=== PATIENT | female | born 1970 | race Caucasian/White ===

== ENCOUNTER 2016-09-22 12:49 | Observation (INO) | payer MEDICARE, OTHER ==
[~2016-09-22] VITALS: Ht 165.1 cm; Wt 75.9 kg
[~2016-09-22 12:49] MED LIST: ACET-2650 PO; AZIT250T5 PO; CEFP200T2 PO; CYCL10TA9 PO; FURO20TA4 PO; GABA300C PO; HCT25T PO; IPRA3AMP IH; METH40TA PO; NEBI2.5T5 PO; NEBI5TAB8 PO; OMEP10CA4 PO; OXYC-12 PO; OXYC10TA55 PO; PEG250PW PO; PNNLX50T PO; PNT40TEC PO; SCR1T1 PO; TOCI400V IV
--- OUTSIDE RECORDS SUMMARY | 2016-09-22 13:26 | XMS REPORT | Continuity of Care Document ---
Author Author [facility] Organization [facility] Address Unknown Phone Unavailable Care Team Providers Care Strategic Client Executive Name Role Phone Karen Melgar PCP [phone] Source Comments Some departments are not documenting in the electronic medical record. If you do not see the information that you expected, contact Release of Information in the Health Information Management department at [phone] for further assistance in locating additional records.[facility] Active Allergies and Adverse Reactions Allergen Noted Date Severity Reactions Comments Ciprofloxacin 12/12/2015 High ANAPHYLAXIS, HIVES Codeine 12/12/2015 Medium HIVES, ITCHING Iodine 12/12/2015 High ANAPHYLAXIS Orencia 12/12/2015 High ANAPHYLAXIS, HIVES, ITCHING Current Medications Prescription Sig. Disp. Refills Start End Date Status Date nebivolol (BYSTOLIC) 10 Take 10 mg by mouth twice Active mg tablet daily. Active Problems Problem Noted Date Polyarthralgia 12/12/2015 Pain in both hands 12/12/2015 Low back pain with sciatica 12/12/2015 Cervical radiculopathy 12/12/2015 Lumbar radiculopathy 12/12/2015 Gastric ulcer 12/12/2015 Headache 12/12/2015 H/O Meniere's disease 12/12/2015 Fibromyalgia 12/12/2015 Social History Tobacco Use Types Packs/Day Years Used Date Never Smoker Smokeless Tobacco: Never Used Alcohol Use Drinks/Week oz/Week Comments No 0 Standard 0.0 drinks or equivalent Last Filed Vital Signs Vital Sign Reading Time Taken Blood Pressure 128/88 12/12/2015 9:34 AM CDT Pulse 92 12/12/2015 8:25 AM CDT Temperature 36.7 C (98 F) 12/12/2015 8:25 AM CDT Respiratory Rate - - Height 1.651 m (5' 5") 12/12/2015 8:25 AM CDT Weight 66.225 kg (146 lb) 12/12/2015 8:25 AM CDT Body Mass Index 24.3 12/12/2015 8:25 AM CDT Oxygen Saturation - - Plan of Care Health Maintenance Due Date Last Done Comments Physical (Comprehensive) 1976 Exam Pertussis Vaccine 1980 Tetanus Vaccine 1986 Cervical Cancer Screening 1990 Breast Cancer Screening 2009 Influenza Vaccine 05/21/2016 Results from Last 3 Months Not on file
[2016-09-22] MEDS ORDERED: PATIENT MAY USE OWN MEDS, ALL PO SCH (13:45)
[2016-09-22] MEDS ORDERED: ONDANSETRON 4 MG/2 ML (SDV) Z0FRAN IVP PRN (13:45)
[2016-09-22 14:00] VITALS: BP 120/84
[2016-09-22] MEDS ORDERED: CATHETER FLUSH 10 ML SYR IV PRN (14:00)
[2016-09-22] MEDS ORDERED: OXYC15TA73 PO (14:21)
[2016-09-22] MEDS ORDERED: CYCL10TA9 PO (14:21)
[2016-09-22 14:37] LABS: BASOPHILS % (AUTO) 0 % (0-10); EOSINOPHILS # (AUTO) 0.1 10^3/uL (0.0-0.3); EOSINOPHILS % (AUTO) 1 % (0-10); LYMPHOCYTES # (AUTO) 1.8 X 10^3 (1.0-4.0); LYMPHOCYTES % (AUTO) 21 % (12-44); MEAN CORPUSCULAR HEMOGLOBIN 29 PG (25-34); MEAN CORPUSCULAR HGB CONC 33 G/DL (32-36); MEAN CORPUSCULAR VOLUME 89 FL (80-99); MEAN PLATELET VOLUME 9.7 FL (7.4-10.4); MONOCYTES # (AUTO) 0.6 X 10^3 (0.0-1.0); MONOCYTES % (AUTO) 7 % (0-12); NEUTROPHILS # (AUTO) 6.1 X 10^3 (1.8-7.8); NEUTROPHILS % (AUTO) 71 % (42-75); PLATELET COUNT 310 10^3/uL (130-400); RED BLOOD COUNT 4.63 10^6/uL (4.35-5.85); RED CELL DISTRIBUTION WIDTH 14.6 % (10.0-14.5); WHITE BLOOD COUNT 8.6 10^3/uL (4.3-11.0)
[2016-09-22] MEDS ORDERED: IPRA3AMP IH (14:38)
[2016-09-22] MEDS ORDERED: OMEP40CA36 PO (14:38)
[2016-09-22] MEDS ORDERED: NFNEB10T PO (14:38)
[2016-09-22] MEDS ORDERED: IBUP-2055 PO (14:38)
[2016-09-22] MEDS ORDERED: BENZ100C23 PO (14:39)
[2016-09-22] MEDS: cefTRIAXone INJECTION 1,000 MG in NORMAL SALINE (BAXTER MINI) 50 ML IV SCH (14:47)
[2016-09-22] MEDS: BISACODYL 10 MG SUPP (DULCOLAX) PR SCH (14:47)
[2016-09-22 14:54] LABS: ANION GAP 13 MMOL/L (5-14); BLOOD UREA NITROGEN 20 MG/DL (7-18); BUN/CREATININE RATIO 22; CALCIUM 9.2 MG/DL (8.5-10.1); CARBON DIOXIDE 22 MMOL/L (21-32); CHLORIDE 105 MMOL/L (98-107); CREATININE SERUM 0.92 MG/DL (0.60-1.30); GFR ESTIMATED > 60; GLUCOSE 83 MG/DL (70-105); POTASSIUM 3.4 MMOL/L (3.6-5.0); SODIUM 140 MMOL/L (135-145)
[2016-09-22] MEDS: DOXYCYCLINE IV SCH ×2 (15:46→20:57)
[2016-09-22] MEDS: NORMAL SALINE IV SCH ×2 (15:46→20:57)
--- NOTE | 2016-09-22 15:47 | Diagnostic Imaging Report ---
PROCEDURE: CT chest without contrast. TECHNIQUE: Multiple contiguous axial images were obtained through the chest without the use of intravenous contrast. INDICATION: Recurrent pneumonia. Shortness of breath. FINDINGS: There are patchy bilateral central lung zone predominant areas of dense and groundglass opacities seen. This is concerning for atypical pneumonia. Minimal bilateral effusions are seen. No pericardial effusion. The thoracic aorta is normal in caliber. There is no mediastinal mass or significantly enlarged lymph node. There is no axillary lymphadenopathy. Sections in the upper abdomen demonstrate moderate atrophy of the left kidney. The osseous structures appear grossly unremarkable. IMPRESSION: Patchy bilateral groundglass and dense areas of consolidation suggestive of atypical, inflammatory or infectious pneumonia. Dictated by: Dictated on workstation # [id number]
[2016-09-22 16:00] VITALS: BP 133/91
[2016-09-22] MEDS ORDERED: RT-ALBUTEROL/IPRATROPIUM 3 ML (DUONEB) VIAL INH PRN (16:45)
[2016-09-22] MEDS: methylPREDNISolone 125 MG (Solu-MEDROL) VIAL IVP SCH (17:47)
[2016-09-22 19:28] VITALS: BP 124/89
[2016-09-22] MEDS: RT-ALBUTEROL/IPRATROPIUM 3 ML (DUONEB) VIAL INH SCH (19:59)
[2016-09-22] MEDS: DOCUSATE SODIUM 100 MG (COLACE) CAP PO SCH (20:57)
[2016-09-22] MEDS ORDERED: BENZONATATE 100 MG (TESSALON) CAPSULE PO PRN (21:15)
[2016-09-22] MEDS ORDERED: CYCLOBENZAPRINE 10 MG (FLEXERIL) TAB PO PRN (21:15)
[2016-09-22] MEDS ORDERED: oxyCODONE ER 15 MG (oxyCONTIN CR) TAB PO SCH (21:15)
[2016-09-22] MEDS ORDERED: RT-ALBUTEROL/IPRATROPIUM 3 ML (DUONEB) VIAL IH PRN (21:15)
[2016-09-22] MEDS ORDERED: IBUPROFEN TABLET 200 MG TAB PO PRN (21:15)
[2016-09-22] MEDS ORDERED: PATIENT MAY USE OWN MEDS, ALL MC PRN (21:15)
[2016-09-22 23:41] VITALS: BP 108/64
[2016-09-23] VITALS (7 sets, daily range): BP systolic 90–128; BP diastolic 50–81
[2016-09-23] MEDS: methylPREDNISolone 125 MG (Solu-MEDROL) VIAL IVP SCH ×4 (00:12→22:02)
[2016-09-23] MEDS: RT-ALBUTEROL/IPRATROPIUM 3 ML (DUONEB) VIAL INH SCH ×4 (02:10→19:41)
[2016-09-23] MEDS ORDERED: DOXYCYCLINE 100 MG INJ (VIBRAMYCIN) ONE (08:27)
[2016-09-23] MEDS ORDERED: NORMAL SALINE (BAXTER MINI) 100 ML IV ONE (08:27)
[2016-09-23] MEDS: DOCUSATE SODIUM 100 MG (COLACE) CAP PO SCH ×2 (08:39→21:59)
[2016-09-23] MEDS: ACETAMINOPHEN 325 MG TABLET/CAPLET (TYLENOL) PO SCH ×2 (08:39→22:02)
[2016-09-23] MEDS: BISACODYL 10 MG SUPP (DULCOLAX) PR SCH (08:39)
[2016-09-23] MEDS: DOXYCYCLINE IV SCH ×2 (08:40→21:59)
[2016-09-23] MEDS: NORMAL SALINE IV SCH ×2 (08:40→21:59)
[2016-09-23] MEDS: PANTOPRAZOLE 40 MG (PROTONIX) TAB PO SCH (08:45)
[2016-09-23] MEDS ORDERED: NEBIVOLOL 5 MG TAB (BYSTOLIC) PO SCH (09:00)
[2016-09-23] MEDS ORDERED: GABAPENTIN 300 MG (NEURONTIN) CAP PO SCH (09:00)
[2016-09-23] MEDS: GABAPENTIN 300 MG (NEURONTIN) CAP PO SCH ×3 (09:45→22:00)
[2016-09-23] MEDS: oxyCODONE ER 15 MG (oxyCONTIN CR) TAB PO SCH ×2 (09:45→22:01)
[2016-09-23] MEDS ORDERED: BENZONATATE 100 MG (TESSALON) CAPSULE PO PRN (10:00)
[2016-09-23] MEDS: CYCLOBENZAPRINE 10 MG (FLEXERIL) TAB PO PRN ×2 (11:26→16:46)
[2016-09-23] MEDS ORDERED: NORMAL SALINE (BAXTER MINI) 50 ML IV ONE (13:04)
[2016-09-23] MEDS ORDERED: cefTRIAXone 1 GM (ROCEPHIN) VIAL ONE (13:04)
[2016-09-23] MEDS: NEBIVOLOL 10 MG PO SCH ×2 (13:14→22:01)
[2016-09-23] MEDS: cefTRIAXone INJECTION 1,000 MG in NORMAL SALINE (BAXTER MINI) 50 ML IV SCH (13:16)
--- NOTE | 2016-09-23 16:09 | History & Physicial (CHS) ---
HPI History of Present Illness: 46 yo F with known RA that was sent to hospital for direct admission from Dr Melgar in clinic due to increased shortness of breath with hypoxia. Patient states that she has been having worsening shortness of breath for the last month. She noticed that around [place] it got alot worse. She denies any sick contacts. States that she had chills but never took her temperature. Patient states that she had similar symptoms several years ago and she was told they were concerned about rheumatoid lung. She has not seen a Ops Manager because of financial reasons in about 3 years. She has been on many immunomodulating medications but currently is not on anything. She has never seen Rn Stars. States that she gets much more short of breath with ambulation. Tolerating PO diet. Denies any N/V Source: patient, family (mother and son), RN/, old records Exam Limitations: no limitations Date seen by provider: Sep 23, 2016 Attending Physician Aisha Sosa MD PCP Edward Melgar MD Consult Date of Admission Sep 22, 2016 at 13:22 Home Medications Home Medications Reviewed patient Home Medication Reconciliation Form Allergies Coded Allergies: iodine (Unverified Allergy, Severe, 01/29/11) Penicillins (Unverified Allergy, Unknown, 06/27/14) abatacept (Unverified Allergy, Unknown, 06/27/14) ciprofloxacin (Unverified Allergy, Unknown, 06/27/14) codeine (Unverified Allergy, Unknown, 06/27/14) hydrocodone (Unverified Allergy, Unknown, 06/27/14) Uncoded Allergies: IVP DYE (Allergy, Unknown, 06/27/14) PHE-Kmbloj-Nvggvk Hx Patient Social History Living Status: Lives at home with son Alcohol Use: Denies Use Recreational Drug Use: No Smoking Status: Never a Smoker Recent Foreign Travel: No Contact w/other who traveled: No Recent Hopitalizations: No Recent Infectious Disease Expo: No Physical Abuse Screen: No Sexual Abuse: No Immunizations Up To Date Tetanus Booster (TDap): Unknown Date of Pneumonia Vaccine: Dec 05, 2012 Past Medical History RA Family Medical History Family History: Alzheimer's disease 19 FATHER Arthritis 19 FATHER 19 MOTHER Asthma G8 BROTHER Cardiovascular disease 19 FATHER 19 MOTHER Cataracts 19 FATHER 19 MOTHER Deafness or hearing loss 19 FATHER 19 MOTHER Dementia 19 FATHER Diabetes mellitus 19 FATHER 19 MOTHER MATERNAL GRANDMA PATERNAL GRANDMOTHER Fibrocystic disease of breast 19 MOTHER Gastroenteritis 19 MOTHER Hypercholesterolemia 19 MOTHER Hypertension G8 BROTHER Myocardial infarction 19 FATHER Neoplasm 19 MOTHER (GALL BLADDER CANCER) Osteoporosis 19 MOTHER Thyroid disease G8 BROTHER G8 SISTER Review of Systems (CHC) Constitutional: no symptoms reportedNo chills, No dizziness, No fever, malaise weakness EENTM: no symptoms reportedNo blurred vision, No double vision Respiratory: cough dyspnea on exertionNo hemoptysis, short of breathNo wheezing Cardiovascular: no symptoms reportedNo chest pain, No edema, No palpitations, No syncope Gastrointestinal: no symptoms reportedNo abdominal pain, constipationNo diarrhea, No heartburn, No nausea, No vomiting Genitourinary: no symptoms reportedNo dysuria, No frequency, No hematuria : No Musculoskeletal: joint pain (multiple joints) Skin: no symptoms reportedNo lesions, No rash Psychiatric/Neurological: No Symptoms ReportedDenies Anxiety, Denies Depressed , Denies Headache Reviewed Test Results Reviewed Test Results Lab Laboratory Tests Test 09/22/16 14:20 Range/Units Anion Gap 13 5-14 MMOL/L BUN/Creatinine Ratio 22 Basophils # (Auto) 0.0 0.0-0.1 10^3/uL Basophils (%) (Auto) 0 0-10 % Blood Urea Nitrogen 20 H 7-18 MG/DL Calcium Level 9.2 8.5-10.1 MG/DL Carbon Dioxide Level 22 21-32 MMOL/L Chloride Level 105 98-107 MMOL/L Creatinine 0.92 0.60-1.30 MG/DL Eosinophils # (Auto) 0.1 0.0-0.3 10^3/uL Eosinophils (%) (Auto) 1 0-10 % Estimat Glomerular Filtration Rate > 60 Glucose Level 83 70-105 MG/DL Hematocrit 41 35-52 % Hemoglobin 13.6 11.5-16.0 G/DL Lactic Acid Level 1.0 0.5-2.0 MMOL/L Lymphocytes # (Auto) 1.8 1.0-4.0 X 10^3 Lymphocytes (%) (Auto) 21 12-44 % Mean Corpuscular Hemoglobin 29 25-34 PG Mean Corpuscular Hemoglobin Concent 33 32-36 G/DL Mean Corpuscular Volume 89 80-99 FL Mean Platelet Volume 9.7 7.4-10.4 FL Monocytes # (Auto) 0.6 0.0-1.0 X 10^3 Monocytes (%) (Auto) 7 0-12 % Neutrophils # (Auto) 6.1 1.8-7.8 X 10^3 Neutrophils (%) (Auto) 71 42-75 % Platelet Count 310 130-400 10^3/uL Potassium Level 3.4 L 3.6-5.0 MMOL/L Red Blood Count 4.63 4.35-5.85 10^6/uL Red Cell Distribution Width 14.6 H 10.0-14.5 % Sodium Level 140 135-145 MMOL/L White Blood Count 8.6 4.3-11.0 10^3/uL Date of Exam: 09/22/16 CT CHEST WO PROCEDURE: CT chest without contrast. TECHNIQUE: Multiple contiguous axial images were obtained through the chest without the use of intravenous contrast. INDICATION: Recurrent pneumonia. Shortness of breath. FINDINGS: There are patchy bilateral central lung zone predominant areas of dense and groundglass opacities seen. This is concerning for atypical pneumonia. Minimal bilateral effusions are seen. No pericardial effusion. The thoracic aorta is normal in caliber. There is no mediastinal mass or significantly enlarged lymph node. There is no axillary lymphadenopathy. Sections in the upper abdomen demonstrate moderate atrophy of the left kidney. The osseous structures appear grossly unremarkable. IMPRESSION: Patchy bilateral groundglass and dense areas of consolidation suggestive of atypical, inflammatory or infectious pneumonia. Physical Exam-(CHC) Physical Exam Vital Signs VS - Last 72 Hours, by Label 09/22/16 09/22/16 09/22/16 09/22/16 14:00 14:12 16:00 16:26 Temp 97.6 97.0 Pulse 72 71 Resp 24 22 B/P 120/84 133/91 Pulse Ox 94 94 98 96 O2 Delivery Room Air Room Air Room Air 09/22/16 09/22/16 09/22/16 09/22/16 16:30 19:28 19:59 21:00 Temp 97.9 Pulse 80 Resp 22 B/P 124/89 Pulse Ox 96 93 94 O2 Delivery Room Air Room Air Room Air Room Air 09/22/16 09/23/16 09/23/16 09/23/16 23:41 02:10 04:24 04:46 Temp 97.9 97.8 Pulse 80 88 Resp 20 18 B/P 108/64 90/50 106/67 Pulse Ox 94 92 92 O2 Delivery Room Air Room Air Room Air 09/23/16 09/23/16 09/23/16 09/23/16 05:43 08:48 09:00 09:54 Temp 98.1 Pulse 89 76 Resp 18 B/P 114/75 128/81 Pulse Ox 93 91 92 O2 Delivery Room Air Room Air Room Air 09/23/16 09/23/16 09/23/16 12:00 13:51 16:55 Temp 98.2 98.4 Pulse 87 93 Resp 19 18 B/P 117/69 117/67 Pulse Ox 95 94 93 O2 Delivery Room Air Nasal Cannula Nasal Cannula O2 Flow Rate 2.00 2.00 Capillary Refill : General Appearance: WD/WN no apparent distress HEENT: PERRL/EOMI pharynx normal Neck: non-tender full range of motion supple normal inspection Respiratory: chest non-tender lungs clear normal breath sounds no respiratory distress no accessory muscle useNo accessory muscle use, No crackles, No wheezing Cardiovascular: regular rate, rhythm no edema no gallop no JVD no murmur Gastrointestinal: normal bowel sounds non tender soft no organomegaly no pulsatile massNo distended, No guarding, No rebound, No tenderness Back: normal inspection no CVA tenderness no vertebral tenderness Extremities: normal range of motion non-tender normal inspection no pedal edema no calf tenderness normal capillary refill Neurologic/Psychiatric: geology instructor II-XII nml as tested no motor/sensory deficits alert normal mood/affect oriented x 3 Skin: normal color warm/dry Lymphatic: no adenopathy Assessment/Plan Assessment/Plan Admission Dx Acute respiratory distress with hypoxia Constipation HTN Rheumatoid Arthritis Hypokalemia Plan 46 yo with known RA admitted for respiratory distress with hypoxia from clinic Acute respiratory distress with hypoxia - CT revealed ground glass appearance which could be 2/2 atypical PNA vs autoimmune vs fungal, may need bronch in the future - Will continue antibiotics to cover atypical bacteria - patient with hypoxia during ambulatory oximetry: qualifies for oxygen on d/c - Will need oupatient PFT given prolonged shortness of breath and concerns for rheumatoid lung - Needs outpatient follow up with Rheumatology - Continue A/A nebs, IS Constipation: patient on chronic pain medication - Continue Senna, will add daily miralax as well - Encourage PO hydration HTN: controlled, continue home meds Rheumatoid Arthritis - Continue home pain medications Hypokalemia - Replace and repeat bmp in AM Dispo: Continue admission with plan to d/c home tomorrow with oxygen FEN: Reg DVT PPX: lovenox Diagnosis/Problems: Clinical Quality Measures DVT/VTE Risk/Contraindication: Risk Factor Score Per Nursin RFS Level Per Nursing on Admit: 2=Moderate Copy Copies To 1: EDWARD MELGAR MD, HOLLY R MD Sep 23, 2016 4:09 pm
[2016-09-23] MEDS ORDERED: KCL 20 MEQ TAB (K-DUR) PO NR (17:30)
[2016-09-24 00:40] VITALS: BP 113/70
[2016-09-24] MEDS: RT-ALBUTEROL/IPRATROPIUM 3 ML (DUONEB) VIAL INH SCH ×2 (02:40→08:21)
[2016-09-24 04:55] VITALS: BP 111/55
[2016-09-24] MEDS: methylPREDNISolone 125 MG (Solu-MEDROL) VIAL IVP SCH ×2 (06:42→13:30)
[2016-09-24 07:06] LABS: ANION GAP 13 MMOL/L (5-14); BLOOD UREA NITROGEN 23 MG/DL (7-18); BUN/CREATININE RATIO 27; CALCIUM 9.5 MG/DL (8.5-10.1); CARBON DIOXIDE 19 MMOL/L (21-32); CHLORIDE 109 MMOL/L (98-107); CREATININE SERUM 0.85 MG/DL (0.60-1.30); GFR ESTIMATED > 60; GLUCOSE 142 MG/DL (70-105); POTASSIUM 4.3 MMOL/L (3.6-5.0); SODIUM 141 MMOL/L (135-145)
[2016-09-24 08:00] VITALS: BP 113/71
[2016-09-24] MEDS: DOCUSATE SODIUM 100 MG (COLACE) CAP PO SCH (08:04)
[2016-09-24] MEDS: ACETAMINOPHEN 325 MG TABLET/CAPLET (TYLENOL) PO SCH (08:04)
[2016-09-24] MEDS: PANTOPRAZOLE 40 MG (PROTONIX) TAB PO SCH (08:04)
[2016-09-24] MEDS: GABAPENTIN 300 MG (NEURONTIN) CAP PO SCH ×2 (08:05→13:29)
[2016-09-24] MEDS: CYCLOBENZAPRINE 10 MG (FLEXERIL) TAB PO PRN ×2 (08:05→13:29)
[2016-09-24] MEDS: oxyCODONE ER 15 MG (oxyCONTIN CR) TAB PO SCH (08:05)
[2016-09-24] MEDS: NEBIVOLOL 10 MG PO SCH (08:06)
[2016-09-24] MEDS: BISACODYL 10 MG SUPP (DULCOLAX) PR SCH (08:06)
[2016-09-24] MEDS ORDERED: DOXYCYCLINE 100 MG (VIBRAMYCIN) TABLET PO SCH (09:00)
[2016-09-24] MEDS ORDERED: DOCU100C37 PO (11:23)
[2016-09-24] MEDS ORDERED: DOXY100T2 PO (11:23)
[2016-09-24] MEDS ORDERED: PRED10TA22 PO (11:23)
--- NOTE | 2016-09-24 11:27 | Discharge Instructions ---
Discharge [facility] Discharge Medications New, Converted or Re-Newed RX: Transmitted to Pharmacy New Medications: Prednisone (Prednisone) 10 Mg Tab.ds.pk 10 MG PO DAILY Take 6 tabs(60mg)daily,decrease by 1 tab(10mg)every other day. # 42 PKG Docusate Sodium (Docusate Sodium) 100 Mg Capsule 100 MG PO BID Constipation #60 CAP Doxycycline Hyclate (Doxycycline Hyclate) 100 Mg Tablet 100 MG PO BID@07,17 #24 Ref 0 TAB Continued Medications: Acetaminophen (Tylenol Arthritis) 650 Mg Tablet.er 1300 MG PO BID TAB Benzonatate (Benzonatate) 100 Mg Capsule 100 MG PO TID PRN COUGH Cyclobenzaprine HCl (Cyclobenzaprine HCl) 10 Mg Tablet 10 MG PO TID PRN MUSCLE SPASMS Gabapentin (Neurontin) 300 Mg Capsule 900 MG PO TID CAP Ibuprofen (Ibuprofen) 200 Mg Tablet 400 MG PO Q6H TAKES 2 (200 MG) TABLETS PRN FEVER TAB Ipratropium/Albuterol Sulfate (Iprat-Albut 0.5-3(2.5) mg/3 ml) 3 Ml Ampul.neb 3 ML IH Q6H PRN SHORTNESS OF BREATH EACH Nebivolol HCl (Bystolic) 10 Mg Tab 10 MG PO BID Omeprazole (Omeprazole) 40 Mg Capsule.dr 40 MG PO DAILY Oxycodone HCl (Oxycontin) 15 Mg Tab.er.12h 15 MG PO Q12H Patient Instructions Goal/Follow Up Appt: You have a followup appt with Dr Melgar on Oct 01 @ 1220 PM at [facility] Rheum Referral to Neena Hart in [place] given your [facility] Status Will need appt with Dr Adair for Pulmonary Evaluation Patient Instructions: We have sent a script for your oxygen, it is important that you wear it when you are active Return to The Hospital For: Worsening Shortness of breath Chest pain Unable to take medications Activity & Diet Discharge Diet: No Restrictions Activity as Tolerated: Yes Copy Copies To 1: EDWARD MELGAR MD, HOLLY R MD Sep 24, 2016 11:27
--- NOTE | 2016-09-24 11:33 | Discharge Summary ---
Diagnosis/Chief Complaint Date of Admission Sep 22, 2016 at 13:22 Date of Discharge 09/24/2016 Admission Diagnosis Admission Diagnosis Acute respiratory distress with hypoxia Constipation HTN Rheumatoid Arthritis Hypokalemia Discharge Diagnosis See Above Chief Complaint/HPI Chief Complaint/HPI 46 yo F with known RA that was sent to hospital for direct admission from Dr Melgar in clinic due to increased shortness of breath with hypoxia. Patient states that she has been having worsening shortness of breath for the last month. She noticed that around [place] it got alot worse. She denies any sick contacts. States that she had chills but never took her temperature. Patient states that she had similar symptoms several years ago and she was told they were concerned about rheumatoid lung. She has not seen a Melter Supervisor [employer] because of financial reasons in about 3 years. She has been on many immunomodulating medications but currently is not on anything. She has never seen Architectural Drafting Instructor. States that she gets much more short of breath with ambulation. Tolerating PO diet. Denies any N/V Discharge Summary-Simple/Stand Procedures Date of Exam: 09/22/16 CT CHEST WO PROCEDURE: CT chest without contrast. TECHNIQUE: Multiple contiguous axial images were obtained through the chest without the use of intravenous contrast. INDICATION: Recurrent pneumonia. Shortness of breath. FINDINGS: There are patchy bilateral central lung zone predominant areas of dense and groundglass opacities seen. This is concerning for atypical pneumonia. Minimal bilateral effusions are seen. No pericardial effusion. The thoracic aorta is normal in caliber. There is no mediastinal mass or significantly enlarged lymph node. There is no axillary lymphadenopathy. Sections in the upper abdomen demonstrate moderate atrophy of the left kidney. The osseous structures appear grossly unremarkable. IMPRESSION: Patchy bilateral groundglass and dense areas of consolidation suggestive of atypical, inflammatory or infectious pneumonia. Consultations None Discharge Physical Examination Allergies: Coded Allergies: iodine (Unverified Allergy, Severe, 01/29/11) Penicillins (Unverified Allergy, Unknown, 06/27/14) abatacept (Unverified Allergy, Unknown, 06/27/14) ciprofloxacin (Unverified Allergy, Unknown, 06/27/14) codeine (Unverified Allergy, Unknown, 06/27/14) hydrocodone (Unverified Allergy, Unknown, 06/27/14) Uncoded Allergies: IVP DYE (Allergy, Unknown, 06/27/14) Vitals & I&Os Vital Sign - Last 12Hours Date Time Temp Pulse Resp B/P Pulse Ox O2 Delivery O2 Flow Rate FiO2 09/24/16 08:23 95 Room Air 09/24/16 04:55 97.9 82 20 111/55 09/23/16 19:41 2.00 Intake and Output 09/24/16 00:00 Intake Total 1630 ml Output Total 2150 ml Balance -520 ml General Appearance: Alert, Oriented X3, Cooperative, No Acute Distress Respiratory: Clear to Auscultation, Other (Basilar wheeze that cleared after treatment, normal work of breathing) Cardiovascular: Regular Rate, No Murmurs Abdominal: Normal Bowel Sounds, Soft, No Tenderness, No Hepatosplenomegaly, No Masses Extremities: No Clubbing, No Cyanosis, No Edema, No Tenderness/Swelling Skin: No Rashes, No Breakdown Neuro: Normal Gait (Had desats 84% with ambulation), Normal Speech, Cranial Nerves 3-12 NL Psych/Mental Status: Mental Status NL, Mood NL Hospital Course See final discharge diagnosis. Pending Labs None Radiology Reviewed CT: Showed Ground glass appearance Discussion & Recommendations 46 yo F with know RA that was admitted for progressive shortness of breath. Patient has been seen and treated with multiple antibiotics with minimal improvement. She was found to be hypoxic in clinic. CT at hospital showed ground glass appearance. Patient states that she was told several years ago by a physician that they were worried about rheumatoid lung. Patient has not been able to follow with Rheumatology because of financial reasons. Encouraged patient to discuss with PCP Dr Melgar a referral to [facility] Rheum in [place] because she has already been cleared for Airam. Patient may benefit from Broch with Dr Adair given h/o fevers without resolution of symptoms with treatment. Discharge Condition at discharge Improved Instructions to patient/family Please see electonic discharge instructions given to patient. Discharge Medications Reviewed and agree with Discharge Medication list on patient's Discharge Instruction sheet Clinical Quality Measures DVT/VTE Risk/Contraindication: Risk Factor Score Per Nursin RFS Level Per Nursing on Admit: 2=Moderate TOBI GUO MD Sep 24, 2016 11:33
[2016-09-24 12:00] VITALS: BP 114/61
[2016-09-24] MEDS: cefTRIAXone INJECTION 1,000 MG in NORMAL SALINE (BAXTER MINI) 50 ML IV SCH (13:30)
== END 2016-09-24 11:23 | disposition home or self-care (01) ==
LOC: UNDOADMOB 13:22 → 4TH 13:22 → UNDODISOB 09-24 14:24
PROVIDERS: ADMIT Family Medicine; ATTEND Family Medicine
DX: R06.00 Dyspnea, unspecified (principal); R09.02 Hypoxemia; K59.00 Constipation, unspecified; I10 Essential (primary) hypertension; M06.9 Rheumatoid arthritis, unspecified; E87.6 Hypokalemia
CPT/HCPCS: 36415; 71250; 80048; 83605; 85025; 87040; 94640; 94664; 94760; 94761; 99211; G0378

== ENCOUNTER → 2016-10-08 | Outpatient (CLI) | payer MEDICARE, OTHER ==
[~2016-10-08] MED LIST changes: +BENZ100C23 PO; +DOCU100C37 PO; +DOXY100T2 PO; +IBUP-2055 PO; +NFNEB10T PO; +OMEP40CA36 PO; +OXYC15TA73 PO; +PRED10TA22 PO; +RT-HYPERTONIC SALINE 3% 4 ML NEB INH ONE
--- OUTSIDE RECORDS SUMMARY | 2016-10-08 11:05 | XMS REPORT | Continuity of Care Document ---
Author Author [facility] Organization [facility] Address Unknown Phone Unavailable Care Team Providers Care Residence Life Director Name Role Phone Karen Melgar PCP [phone] Source Comments Some departments are not documenting in the electronic medical record. If you do not see the information that you expected, contact Release of Information in the Health Information Management department at [phone] for further assistance in locating additional records.[facility] [...]
== END ==
LOC: LAB 11:02
PROVIDERS: ATTEND Nurse Practitioner Family
DX: R09.02 Hypoxemia (principal); R06.09 Other forms of dyspnea; J18.9 Pneumonia, unspecified organism

== ENCOUNTER → 2016-11-11 | Outpatient (CLI) | payer MEDICARE, OTHER ==
[~2016-11-11] MED LIST changes: -RT-HYPERTONIC SALINE 3% 4 ML NEB INH ONE
--- OUTSIDE RECORDS SUMMARY | 2016-11-11 11:08 | XMS REPORT | Continuity of Care Document ---
Author Author [facility] Organization [facility] Address Unknown Phone Unavailable Care Team Providers Care Blocker Automatic Name Role Phone Karen Melgar PCP [phone] Source Comments Some departments are not documenting in the electronic medical record. If you do not see the information that you expected, contact Release of Information in the Health Information Management department at [phone] for further assistance in locating additional records.[facility] Active Allergies and Adverse Reactions Allergen [...]
--- NOTE | 2016-11-11 12:19 | Diagnostic Imaging Report ---
PROCEDURE: CT chest without contrast. TECHNIQUE: Multiple contiguous axial images were obtained through the chest without the use of intravenous contrast. INDICATION: Pneumonia. FINDINGS: The previous CT chest exam of 09/22/2016 noted alveolar/interstitial pulmonary infiltrates throughout both lungs, particularly in the perihilar regions. These findings were felt to be related to pneumonia. On this study, the appearance of the chest has improved considerably as both lungs do seem better aerated. There are still faint groundglass densities present bilaterally, particularly in the perihilar regions. There is still no evidence for a pleural effusion. The heart is mildly enlarged but stable when compared to the prior exam. The ascending aorta is not abnormally dilated. There is no mediastinal or hilar adenopathy noted, although this exam is limited in the evaluation of adenopathy due to the absence of intravenous contrast. Thyroid gland is unremarkable. There is no obvious breast mass. The sections through the upper abdomen fail to show any sign of an acute abnormality. IMPRESSION: 1. The appearance of the chest has improved since the prior exam as the lungs do seem better aerated. However, there are still residual groundglass densities throughout both lungs. These groundglass glass densities are nonspecific but could be secondary to an atypical pneumonia or to a hypersensitivity reaction. It would be unlikely that these are neoplastic in nature. 2. No new abnormality has developed, otherwise. 3. These results were discussed with Dr. Hiro Adair. Dictated by: Dictated on workstation # [id number]
== END ==
LOC: RAD 11:03
PROVIDERS: ATTEND Nurse Practitioner Family
DX: J18.9 Pneumonia, unspecified organism (principal); R09.02 Hypoxemia; R06.09 Other forms of dyspnea
CPT/HCPCS: 71250

== ENCOUNTER → 2017-01-19 | Outpatient (CLI) | payer MEDICARE | LOC: PREOP 14:22 | PROVIDERS: ATTEND Internal Medicine Critical Care Medicine | DX: M06.9 Rheumatoid arthritis, unspecified (principal); R09.02 Hypoxemia; R06.09 Other forms of dyspnea ==

== ENCOUNTER → 2017-05-27 | Outpatient (CLI) | payer MEDICARE ==
[~2017-05-27] MED LIST changes: +AZIT250T12 PO; -AZIT250T5 PO; +BENZ-36 PO; -BENZ100C23 PO; +NAPR500T PO
--- NOTE | 2017-05-27 09:00 | Diagnostic Imaging Report ---
PROCEDURE: CT chest without contrast. TECHNIQUE: Multiple contiguous axial images were obtained through the chest without the use of intravenous contrast. INDICATION: Fever, cough. The previous CT chest exam of 11/12/2006, showed groundglass densities throughout both lungs. On this study both lungs do seem much better aerated. There is no evidence for failure, pneumonia, or for a pleural effusion to suggest an acute abnormality. There is mild dependent atelectasis in both lower lobes. The heart size is within normal limits and stable when compared to the prior exam. There are no coronary artery calcifications noted. The aorta is not abnormally dilated. There is no obvious mediastinal or hilar adenopathy. This study is limited in the evaluation of adenopathy due to the absence of intravenous contrast however. The thyroid gland is generally unremarkable. There is no obvious breast mass. According to our records the patient has not had a recent (within the last year) mammogram. If the patient has had a recent mammogram elsewhere, then no further imaging would be recommended; however, if the patient has not had a recent mammogram, then mammography would be recommended for further study. The sections through the upper abdomen failed to show any sign of an acute abnormality. The bone windows show no sign of a fracture or of a destructive lesion. IMPRESSION: 1. The appearance of the chest has improved since the prior exam as the groundglass densities in both lungs noted on the previous study have resolved. There is no evidence for an acute cardiopulmonary abnormality at this time. 2. There is no obvious breast mass. Recommendations as above. Dictated by: Dictated on workstation # [id number]
== END ==
LOC: RAD 07:52
PROVIDERS: ATTEND Family Medicine
DX: R05 Cough (principal)
CPT/HCPCS: 71250

== ENCOUNTER 2017-07-17 10:20 | Emergency (ER) | payer MEDICARE ==
[~2017-07-17] VITALS: Ht 162.6 cm; Wt 60.3 kg
[~2017-07-17 10:20] MED LIST changes: -AZIT250T12 PO; +AZIT250T5 PO; -BENZ-36 PO; +BENZ100C23 PO; -NAPR500T PO
--- NOTE | 2017-07-17 10:38 | ED Lower Extremity ---
General Stated Complaint: R HIP POP, AUDIBLE Source: patient Exam Limitations: no limitations History of Present Illness Time seen by provider: 10:37 Initial Comments To ER with reports of right hip pain after an audible pop. Patient states that she was seated and leaned forward to stand up and in doing so she heard a loud pop. She was not weight bearing or standing at the time of the pop. This was just prior to arrival. She has rheumatoid arthritis on oxycontin and leflunomide. . She is unable to bear weight on this due to the pain. Onset: just prior to arrival Severity: moderate Pain/Injury Location: right hip Allergies and Home Medications Allergies Coded Allergies: iodine (Unverified Allergy, Severe, 01/29/11) Penicillins (Unverified Allergy, Unknown, 06/27/14) abatacept (Unverified Allergy, Unknown, 06/27/14) ciprofloxacin (Unverified Allergy, Unknown, 06/27/14) codeine (Unverified Allergy, Unknown, 06/27/14) hydrocodone (Unverified Allergy, Unknown, 06/27/14) Uncoded Allergies: IVP DYE (Allergy, Unknown, 06/27/14) Home Medications Acetaminophen 650 Mg Tablet.er, 1,300 MG PO BID, (Reported) Benzonatate 100 Mg Capsule, 100 MG PO TID PRN for COUGH, (Reported) Cyclobenzaprine HCl 10 Mg Tablet, 10 MG PO TID PRN for MUSCLE SPASMS, (Reported) Docusate Sodium 100 Mg Capsule, 100 MG PO BID, #60 Prescribed by: TOBI GUO on 09/24/16 1123 Doxycycline Hyclate 100 Mg Tablet, 100 MG PO BID@, #24 Ref 0 Prescribed by: TOBI GUO on 09/24/16 1123 Gabapentin 300 Mg Capsule, 900 MG PO TID, (Reported) Ibuprofen 200 Mg Tablet, 400 MG PO Q6H PRN for FEVER, (Reported) TAKES 2 (200 MG) TABLETS Ipratropium/Albuterol Sulfate 3 Ml Ampul.neb, 3 ML IH Q6H PRN for SHORTNESS OF BREATH, (Reported) Naproxen 500 Mg Tablet, 500 MG PO BID PRN for PAIN-MODERATE TO SEVERE, #20 Prescribed by: ANGELO MIRANDA on 07/17/17 1125 Nebivolol HCl 10 Mg Tab, 10 MG PO BID, (Reported) Omeprazole 40 Mg Capsule.dr, 40 MG PO DAILY, (Reported) Oxycodone HCl 15 Mg Tab.er.12h, 15 MG PO Q12H, (Reported) Prednisone 10 Mg Tab.ds.pk, 10 MG PO DAILY, #42 Take 6 tabs(60mg)daily,decrease by 1 tab(10mg)every other day. Prescribed by: TOBI GUO on 09/24/16 1123 Constitutional: see HPI EENTM: see HPI Respiratory: no symptoms reported Cardiovascular: no symptoms reported Genitourinary: no symptoms reported Musculoskeletal: see HPI Skin: no symptoms reported Past Jzlfcqo-Etmveo-Fevapc Hx Patient Social History Recent Foreign Travel: No Contact w/Someone Who Travel: No Recent Hopitalizations: No Immunizations Up To Date Tetanus Booster (TDap): Unknown PED Vaccines UTD: Yes Date of Pneumonia Vaccine: Dec 05, 2012 Seasonal Allergies Seasonal Allergies: No Surgeries History of Surgeries: Yes Surgeries: Appendectomy, 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 Respiratory History of Respiratory Disorde: Yes (asthma, ) Respiratory Disorders: Asthma Currently Using CPAP: No Currently Using BIPAP: No Cardiovascular History of Cardiac Disorders: Yes Cardiac Disorders: Heart Murmur, Hypertension Neurological History of Neurological Disord: No Reproductive System Hx Reproductive Disorders: No Sexually Transmitted Disease: No HIV/AIDS: No Female Reproductive Disorders: Denies Gastrointestinal History of Gastrointestinal Di: Yes Gastrointestinal Disorders: Ulcer Musculoskeletal History of Musculoskeletal Dis: Yes (RA) Musculoskeletal Disorders: Rheumatoid Arthritis Endocrine History of Endocrine Disorders: No HEENT Loss of Vision: Denies Hearing Impairment: Denies Cancer History of Cancer: No Psychosocial History of Psychiatric Problem: No Integumentary History of Skin or Integumenta: No Blood Transfusions History of Blood Disorders: No Adverse Reaction to a Blood Tr: No Family Medical History Family Medial History: Alzheimer's disease 19 FATHER Arthritis 19 FATHER 19 MOTHER Asthma G8 BROTHER Cardiovascular disease 19 FATHER 19 MOTHER Cataracts 19 FATHER 19 MOTHER Deafness or hearing loss 19 FATHER 19 MOTHER Dementia 19 FATHER Diabetes mellitus 19 FATHER 19 MOTHER MATERNAL GRANDMA PATERNAL GRANDMOTHER Fibrocystic disease of breast 19 MOTHER Gastroenteritis 19 MOTHER Hypercholesterolemia 19 MOTHER Hypertension G8 BROTHER Myocardial infarction 19 FATHER Neoplasm 19 MOTHER (GALL BLADDER CANCER) Osteoporosis 19 MOTHER Thyroid disease G8 BROTHER G8 SISTER Physical Exam Vital Signs Vital Sign - Last 12Hours 07/17/17 10:30 Temp 98.0 Pulse 112 Resp 18 B/P (MAP) 141/87 Capillary Refill : General Appearance: WD/WN, no apparent distress HEENT: PERRL/EOMI, normal ENT inspection Neck: non-tender, full range of motion Respiratory: no respiratory distress, no accessory muscle use Gastrointestinal: normal bowel sounds, non tender Hips: right hip pain, right hip soft tissue tenderness, right hip other (no swelling or ecchymosis at this point) Legs: bilateral leg non-tender, bilateral leg normal inspection, bilateral leg normal range of motion Knees: bilateral knee non-tender, bilateral knee normal inspection, bilateral knee normal range of motion Ankles: bilateral ankle non-tender, bilateral ankle normal inspection, bilateral ankle normal range of motion Feet: bilateral foot non-tender, bilateral foot normal inspection, bilateral foot normal range of motion Neurologic/Psychiatric: alert, normal mood/affect, oriented x 3 Skin: normal color, warm/dry Progress/Results/Core Measures Results/Orders My Orders Orders - ANGELO MIRANDA APRN Ketorolac Injection (Toradol Injection) (07/17/17 10:45) Orphenadrine Injection (Norflex Injectio (07/17/17 10:45) Hip, Right, 2 Views (07/17/17 10:36) Ct Extremity Lower Right Wo (07/17/17 10:59) Ondansetron Oral Dissolve Tab (Zofran (07/17/17 11:45) Medications Given in ED Current Medications Medications Dose Ordered Sig/Jeremie Route Start Time Stop Time Status Last Admin Dose Admin Ketorolac Tromethamine 60 mg ONCE ONCE IM 07/17/17 10:45 07/17/17 10:46 DC 07/17/17 10:44 60 MG Orphenadrine Citrate 60 mg ONCE ONCE IM 07/17/17 10:45 07/17/17 10:46 DC 07/17/17 10:44 60 MG Vital Signs/I&O Vital Sign - Last 12Hours 07/17/17 10:30 Temp 98.0 Pulse 112 Resp 18 B/P (MAP) 141/87 Diagnostic Imaging Diagonstic Imaging: Xray, CT Comments NAME: BRYN RODRIGUEZ [facility] REC#: [id number] PT STATUS: REG ER : 1970 PHYSICIAN: ANGELO MIRANDA APRN ADMIT DATE: 07/17/17/ER Signed Date of Exam:07/17/17 HIP, RIGHT, 2 VIEWS INDICATION: [place] it pop earlier today with pain TECHNIQUE: 2 views of the right hip. CORRELATION STUDY: None FINDINGS: There is slight rotation at time of imaging. However, given this the hip demonstrate no evidence for acute fracture. Alignment is anatomic. The femoral head acetabular relationship is unremarkable. The bony trabecular pattern is intact. IMPRESSION: 1. Negative for acute bony abnormality of the right hip. Dictated by: Dictated on workstation # [id number] Dict: 07/17/17 1101 Trans: 07/17/17 110 DO [id number] Interpreted by: SAHARA GIBBS DO Electronically signed by: SAHARA GIBBS DO 07/17/17 1102 NAME: BRYN RODRIGUEZ [facility] REC#: [id number] PT STATUS: REG ER : 1970 PHYSICIAN: ANGELO MIRANDA APRN ADMIT DATE: 07/17/17/ER Draft Date of Exam:07/17/17 CT EXTREMITY LOWER RIGHT WO PROCEDURE: CT right lower extremity without contrast. TECHNIQUE: Axially acquired CT was obtained through the right lower extremity without intravenous contrast. Coronal and sagittal reformations were also performed. INDICATION: [place] a pop. Right hip pain. There is no fracture, dislocation or other acute bony abnormality. No significant joint effusion is seen. No loose body within the joint is evident. There is no muscle mass or edema. IMPRESSION: No abnormality is seen. Dictated on workstation # [id number] Dict: 07/17/17 1116 Trans: 07/17/17 1120 HUGH [id number] Interpreted by: NORMA ASCENCIO MD Electronically signed by: Departure Communication (Admissions) Progress Notes 1134-She is now able to bear weight to transfer. She is a bit nauseated so zofran odt ordered. Impression Impression: Primary Impression: Hip crepitus Disposition: 01 HOME, SELF-CARE Condition: Stable Departure-Patient Inst. Decision time for Depature: 11:23 Referrals: EDWARD CORBIN MD (PCP/Family) Primary Care Physician Patient Instructions: NO INSTRUCTIONS GIVEN Add. Discharge Instructions: 1. Pain medication as directed 2. Return to ER for any concerns 3. See your doctor next week Scripts Naproxen (Naprosyn) 500 Mg Tablet 500 MG PO BID Y for PAIN-MODERATE TO SEVERE, #20 TAB Prov: ANGELO MIRANDA APRN 07/17/17 NAGELO MIRANDA APRN Jul 17, 2017 10:38
[2017-07-17] MEDS ORDERED: KETOROLAC 60 MG/2 ML VIAL IM ONE (10:45)
[2017-07-17] MEDS ORDERED: ORPHENADRINE 60 MG/2 ML (NORFLEX) AMP IM ONE (10:45)
--- NOTE | 2017-07-17 11:04 | Diagnostic Imaging Report ---
INDICATION: [place] it pop earlier today with pain TECHNIQUE: 2 views of the right hip. CORRELATION STUDY: None FINDINGS: There is slight rotation at time of imaging. However, given this the hip demonstrate no evidence for acute fracture. Alignment is anatomic. The femoral head acetabular relationship is unremarkable. The bony trabecular pattern is intact. IMPRESSION: 1. Negative for acute bony abnormality of the right hip. Dictated by: Dictated on workstation # [id number]
--- NOTE | 2017-07-17 11:20 | Diagnostic Imaging Report ---
PROCEDURE: CT right lower extremity without contrast. TECHNIQUE: Axially acquired CT was obtained through the right lower extremity without intravenous contrast. Coronal and sagittal reformations were also performed. INDICATION: [place] a pop. Right hip pain. There is no fracture, dislocation or other acute bony abnormality. No significant joint effusion is seen. No loose body within the joint is evident. There is no muscle mass or edema. IMPRESSION: No abnormality is seen. Dictated by: Dictated on workstation # [id number]
[2017-07-17] MEDS ORDERED: NAPR500T PO (11:25)
[2017-07-17 11:31] VITALS: BP 149/102
[2017-07-17] MEDS ORDERED: ONDANSETRON 4 MG (ZOFRAN) ORAL DISSOLVE TAB PO ONE (11:45)
== END 2017-07-17 11:31 | disposition home or self-care (01) ==
LOC: EDUNIT# 10:20 → ER 10:22
DX: M24.851 Other specific joint derangements of right hip, not elsewhere classified (principal); M06.9 Rheumatoid arthritis, unspecified; I10 Essential (primary) hypertension; J45.909 Unspecified asthma, uncomplicated; Z90.49 Acquired absence of other specified parts of digestive tract; Z90.710 Acquired absence of both cervix and uterus; Z80.0 Family history of malignant neoplasm of digestive organs; Z82.49 Family history of ischemic heart disease and other diseases of the circulatory system; X50.0XXA Overexertion from strenuous movement or load, initial encounter
CPT/HCPCS: 73502; 73700; 99284

== ENCOUNTER → 2018-03-19 | Outpatient (CLI) | payer MEDICARE ==
[~2018-03-19] MED LIST changes: +AZIT250T12 PO; -AZIT250T5 PO; +BENZ-36 PO; -BENZ100C23 PO; -IPRA3AMP IH; +IPRA3AMP31 IH; +NAPR-1071 PO
--- NOTE | 2018-03-19 11:35 | Diagnostic Imaging Report ---
INDICATION: , Twisting injury to ankle, swelling, pain. TECHNIQUE: Three views of the right ankle CORRELATION STUDY: None FINDINGS: The bony alignment is anatomic. The talar dome is intact. The ankle mortise is maintained. There is no acute fracture or dislocation. Soft tissues are unremarkable. IMPRESSION: Negative for acute bony abnormality of the ankle. Dictated by: Dictated on workstation # [id number]
== END ==
LOC: RAD 11:08
PROVIDERS: ATTEND Nurse Practitioner Family
DX: S99.911A Unspecified injury of right ankle, initial encounter (principal); X50.1XXA Overexertion from prolonged static or awkward postures, initial encounter
CPT/HCPCS: 73610

== ENCOUNTER → 2018-05-04 | Outpatient (CLI) | payer MEDICARE ==
[~2018-05-04] MED LIST changes: +RT-ALBUTEROL SULF 2.5 MG/3 ML PRE-MIX VIAL INH ONE
== END ==
LOC: RT 09:21
PROVIDERS: ATTEND Nurse Practitioner Family
DX: J40 Bronchitis, not specified as acute or chronic (principal); R06.09 Other forms of dyspnea
CPT/HCPCS: 94060; 94726

== ENCOUNTER 2019-02-28 08:00 | Outpatient (RCR) | payer MEDICARE ==
[2019-02-14 08:00] VITALS: BP 115/60
[2019-02-14 08:40] VITALS: BP 120/100
[2019-02-16 08:00] VITALS: BP 100/50
[2019-02-21 08:10] VITALS: BP 100/80
[2019-02-21 09:15] VITALS: BP 104/62
[2019-02-28 08:00] VITALS: BP 120/87
[~2019-02-28 08:00] MED LIST changes: -OMEP10CA4 PO; +OMEP10CA5 PO; -RT-ALBUTEROL SULF 2.5 MG/3 ML PRE-MIX VIAL INH ONE
[2019-02-28 09:42] VITALS: BP 102/80
[2019-03-09 08:05] VITALS: BP 122/86
[2019-03-09 09:10] VITALS: BP 112/80
== END 2019-05-07 | disposition home or self-care (01) ==
LOC: PULM 08:00
PROVIDERS: ATTEND Family Medicine
DX: J96.11 Chronic respiratory failure with hypoxia (principal)
CPT/HCPCS: 99211

== ENCOUNTER → 2019-03-09 | Outpatient (CLI) | payer MEDICARE ==
[~2019-03-09] MED LIST changes: +OMEP10CA4 PO; -OMEP10CA5 PO
[2019-03-09 11:14] LABS: BASOPHILS % (AUTO) 0 % (0-10); EOSINOPHILS # (AUTO) 0.1 10^3/uL (0.0-0.3); EOSINOPHILS % (AUTO) 2 % (0-10); HEMATOCRIT 44 % (35-52); HEMOGLOBIN 14.3 G/DL (11.5-16.0); LYMPHOCYTES # (AUTO) 1.4 X 10^3 (1.0-4.0); LYMPHOCYTES % (AUTO) 23 % (12-44); MEAN CORPUSCULAR HEMOGLOBIN 28 PG (25-34); MEAN CORPUSCULAR HGB CONC 33 G/DL (32-36); MEAN CORPUSCULAR VOLUME 87 FL (80-99); MEAN PLATELET VOLUME 11.8 FL (7.4-10.4); MONOCYTES # (AUTO) 0.6 X 10^3 (0.0-1.0); MONOCYTES % (AUTO) 10 % (0-12); NEUTROPHILS % (AUTO) 65 % (42-75); PLATELET COUNT 239 10^3/uL (130-400); RED CELL DISTRIBUTION WIDTH 13.7 % (10.0-14.5); WHITE BLOOD COUNT 6.2 10^3/uL (4.3-11.0)
[2019-03-09 11:31] LABS: ABG BASE EXCESS -2.9 MMOL/L (-2.5-2.5); ABG OXYGEN SATURATION 96 % (94-100); ABG PCO2 35 MMHG (35-45); ABG PO2 84 MMHG (79-93); ABG TCO2 22.3 MMOL/L (21.0-31.0); ALLENS TEST YES-POS; INSPIRED O2 ROOM AIR; PATIENT TEMP 97.9; VENTILATOR NO
--- NOTE | 2019-03-09 12:15 | Diagnostic Imaging Report ---
INDICATION: Chronic respiratory problems with dyspnea on exertion and bronchitis. TIME OF EXAM: 10:56 AM Comparison is made with prior chest from 01/20/2017. FINDINGS: The heart size is stable. There are airspace infiltrates noted in both lower lung morel. Mid and upper lung morel are clear. Pulmonary vascularity is unremarkable. No effusion is detected. There is no pneumothorax. IMPRESSION: Patchy airspace infiltrates bilateral lower lobes. Dictated by: Dictated on workstation # [id number]
== END ==
LOC: RAD 10:35
PROVIDERS: ATTEND Nurse Practitioner Family
DX: J30.9 Allergic rhinitis, unspecified (principal); J40 Bronchitis, not specified as acute or chronic; J44.9 Chronic obstructive pulmonary disease, unspecified; M06.9 Rheumatoid arthritis, unspecified
CPT/HCPCS: 36415; 36600; 71046; 82784; 82805; 85025; 86021

== ENCOUNTER 2020-02-27 12:50 | Emergency (ER) | payer MEDICARE ==
[~2020-02-27] VITALS: Ht 165 cm; Wt 72.0 kg
[~2020-02-27 12:50] MED LIST changes: -IBUP-2055 PO; +IBUP-2473 PO; -OMEP10CA4 PO; +OMEP10CA5 PO; +OMEP40CA27 PO; -OMEP40CA36 PO
--- NOTE | 2020-02-27 13:02 | ED General ---
General Stated Complaint: SOA/COUGH Source of Information: Patient Exam Limitations: No Limitations History of Present Illness Date Seen by Provider: Feb 27, 2020 Time Seen by Provider: 13:01 Initial Comments to ER with reports of shortness of breath and cough. The shortness of breath is chronic for her.the cough is not an usual either. However she had a severe headache onset this morning, her daughter who is in nursing school checked her blood pressure and found it to be 190 systolic. She presented to [facility] and there was concern for stroke due to some left arm drift. Timing/Duration: 1-2 Days Severity: Moderate Associated Systoms: Cough Allergies and Home Medications Allergies Coded Allergies: iodine (Unverified Allergy, Severe, 01/29/11) Penicillins (Unverified Allergy, Unknown, 06/27/14) abatacept (Unverified Allergy, Unknown, 06/27/14) ciprofloxacin (Unverified Allergy, Unknown, 06/27/14) codeine (Unverified Allergy, Unknown, 06/27/14) hydrocodone (Unverified Allergy, Unknown, 06/27/14) Uncoded Allergies: IVP DYE (Allergy, Unknown, 06/27/14) Home Medications Acetaminophen 650 Mg Tablet.er, 1,300 MG PO BID, (Reported) Benzonatate 100 Mg Capsule, 100 MG PO TID PRN for COUGH, (Reported) Cyclobenzaprine HCl 10 Mg Tablet, 10 MG PO TID PRN for MUSCLE SPASMS, (Reported) Docusate Sodium 100 Mg Capsule, 100 MG PO BID Prescribed by: TOBI GUO on 09/24/16 112 Doxycycline Hyclate 100 Mg Tablet, 100 MG PO BID@ Prescribed by: TOBI GUO on 09/24/16 1123 Gabapentin 300 Mg Capsule, 900 MG PO TID, (Reported) Ibuprofen 200 Mg Tablet, 400 MG PO Q6H PRN for FEVER, (Reported) TAKES 2 (200 MG) TABLETS Ipratropium/Albuterol Sulfate 3 Ml Ampul.neb, 3 ML IH Q6H PRN for SHORTNESS OF BREATH, (Reported) Naproxen 500 Mg Tablet, 500 MG PO BID PRN for PAIN-MODERATE TO SEVERE Prescribed by: ANGELO MIRANDA on 07/17/17 1125 Nebivolol HCl 10 Mg Tab, 10 MG PO BID, (Reported) Omeprazole 40 Mg Capsule.dr, 40 MG PO DAILY, (Reported) Oxycodone HCl 15 Mg Tab.er.12h, 15 MG PO Q12H, (Reported) Prednisone 10 Mg Tab.ds.pk, 10 MG PO DAILY Take 6 tabs(60mg)daily,decrease by 1 tab(10mg)every other day. Prescribed by: TOBI GUO on 09/24/16 1123 Patient Home Medication List Home Medication List Reviewed: Yes Review of Systems Review of Systems Constitutional: see HPI EENTM: see HPI Respiratory: see HPI, cough Genitourinary: no symptoms reported Musculoskeletal: no symptoms reported Skin: no symptoms reported Psychiatric/Neurological: No Symptoms Reported Past Aakxrcn-Uhdver-Ypbzbi Hx Patient Social History Recent Hopitalizations: No Immunizations Up To Date Tetanus Booster (TDap): Unknown PED Vaccines UTD: Yes Date of Pneumonia Vaccine: Dec 05, 2012 Seasonal Allergies Seasonal Allergies: No Past Medical History Surgeries: Yes Appendectomy, 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 Respiratory: Yes (asthma, ) Asthma Currently Using CPAP: No Currently Using BIPAP: No Cardiac: Yes Heart Murmur, Hypertension Neurological: No Reproductive Disorders: No Female Reproductive Disorders: Denies Sexually Transmitted Disease: No HIV/AIDS: No Gastrointestinal: Yes Ulcer Musculoskeletal: Yes (RA) Osteoporosis, Rheumatoid Arthritis Endocrine: No Loss of Vision: Denies Hearing Impairment: Denies Cancer: No Psychosocial: No Integumentary: No Blood Disorders: No Adverse Reaction/Blood Tranf: No Family Medical History Alzheimer's disease 19 FATHER Arthritis 19 FATHER 19 MOTHER Asthma G8 BROTHER Cardiovascular disease 19 FATHER 19 MOTHER Cataracts 19 FATHER 19 MOTHER Deafness or hearing loss 19 FATHER 19 MOTHER Dementia 19 FATHER Diabetes mellitus 19 FATHER 19 MOTHER MATERNAL GRANDMA PATERNAL GRANDMOTHER Fibrocystic disease of breast 19 MOTHER Gastroenteritis 19 MOTHER Hypercholesterolemia 19 MOTHER Hypertension G8 BROTHER Myocardial infarction 19 FATHER Neoplasm 19 MOTHER (GALL BLADDER CANCER) Osteoporosis 19 MOTHER Thyroid disease G8 BROTHER G8 SISTER Physical Exam Vital Signs Vital Signs - First Documented 02/27/20 12:50 Temp 36.9 Pulse 92 Resp 18 B/P (MAP) 174/80 (111) Pulse Ox 95 O2 Delivery Room Air Capillary Refill : Height, Weight, BMI Height: 5'4.00" Weight: 152lbs. 0.6oz. 60.719231jq; 27.8 BMI Method:Stated General Appearance: No Apparent Distress, WD/WN Eyes: Bilateral Eye Normal Inspection, Bilateral Eye PERRL, Bilateral Eye EOMI HEENT: PERRL/EOMI, TMs Normal Neck: Full Range of Motion, Normal Inspection Respiratory: No Accessory Muscle Use, No Respiratory Distress Cardiovascular: Regular Rate, Rhythm, Normal Peripheral Pulses Gastrointestinal: Normal Bowel Sounds, Non Tender, Soft Extremity: Normal Capillary Refill, Normal Inspection Neurologic/Psychiatric: Alert, Oriented x3 Progress/Results/Core Measures Suspected Sepsis SIRS Temperature: Pulse: Respiratory Rate: Laboratory Tests 02/27/20 13:05: White Blood Count 5.9 Blood Pressure / Mean: Laboratory Tests 02/27/20 13:05: Creatinine 0.92, Platelet Count 226, Total Bilirubin 0.3 Results/Orders Lab Results Laboratory Tests Test 02/27/20 13:05 Range/Units White Blood Count 5.9 4.3-11.0 10^3/uL Red Blood Count 5.09 4.35-5.85 10^6/uL Hemoglobin 14.4 11.5-16.0 G/DL Hematocrit 44 35-52 % Mean Corpuscular Volume 86 80-99 FL Mean Corpuscular Hemoglobin 28 25-34 PG Mean Corpuscular Hemoglobin Concent 33 32-36 G/DL Red Cell Distribution Width 13.1 10.0-14.5 % Platelet Count 226 130-400 10^3/uL Mean Platelet Volume 12.0 H 7.4-10.4 FL Neutrophils (%) (Auto) 57 42-75 % Lymphocytes (%) (Auto) 30 12-44 % Monocytes (%) (Auto) 11 0-12 % Eosinophils (%) (Auto) 2 0-10 % Basophils (%) (Auto) 0 0-10 % Neutrophils # (Auto) 3.4 1.8-7.8 X 10^3 Lymphocytes # (Auto) 1.8 1.0-4.0 X 10^3 Monocytes # (Auto) 0.6 0.0-1.0 X 10^3 Eosinophils # (Auto) 0.1 0.0-0.3 10^3/uL Basophils # (Auto) 0.0 0.0-0.1 10^3/uL Sodium Level 140 135-145 MMOL/L Potassium Level 4.1 3.6-5.0 MMOL/L Chloride Level 110 H 98-107 MMOL/L Carbon Dioxide Level 18 L 21-32 MMOL/L Anion Gap 12 5-14 MMOL/L Blood Urea Nitrogen 19 H 7-18 MG/DL Creatinine 0.92 0.60-1.30 MG/DL Estimat Glomerular Filtration Rate > 60 BUN/Creatinine Ratio 21 Glucose Level 96 70-105 MG/DL Calcium Level 9.7 8.5-10.1 MG/DL Corrected Calcium 9.4 8.5-10.1 MG/DL Total Bilirubin 0.3 0.1-1.0 MG/DL Aspartate Amino Transf (AST/SGOT) 30 5-34 U/L Alanine Aminotransferase (ALT/SGPT) 43 0-55 U/L Alkaline Phosphatase 81 40-136 U/L Total Protein 7.2 6.4-8.2 GM/DL Albumin 4.4 3.2-4.5 GM/DL My Orders Orders - ANGELO MIRANDA APRN Ct Head Wo (02/27/20 12:57) Cbc With Automated Diff (02/27/20 12:57) Comprehensive Metabolic Panel (02/27/20 12:57) Ua Culture If Indicated (02/27/20 12:57) Ed Iv/Invasive Line Start (02/27/20 12:57) Chest 1 View, Ap/Pa Only (02/27/20 12:57) Fentanyl Injection (Sublimaze Injection (02/27/20 13:15) Normal Saline 500 Ml Iv (02/27/20 13:15) Ns Iv 1000 Ml (Sodium Chloride 0.9%) (02/27/20 13:18) Ketorolac Injection (Toradol Injection) (02/27/20 14:30) Prochlorperazine Injection (Compazine In (02/27/20 14:30) Diphenhydramine Injection (Benadryl Inje (02/27/20 14:30) Medications Given in ED Current Medications Medications Dose Ordered Sig/Jeremie Route Start Time Stop Time Status Last Admin Dose Admin Diphenhydramine HCl 25 mg ONCE ONCE IVP 02/27/20 14:30 02/27/20 14:31 DC 02/27/20 14:30 25 MG Fentanyl Citrate 50 mcg ONCE ONCE IVP 02/27/20 13:15 02/27/20 13:16 DC 02/27/20 13:27 50 MCG Ketorolac Tromethamine 15 mg ONCE ONCE IVP 02/27/20 14:30 02/27/20 14:31 DC 02/27/20 14:40 15 MG Prochlorperazine Edisylate 5 mg ONCE ONCE IV 02/27/20 14:30 02/27/20 14:31 DC 02/27/20 14:35 5 MG Vital Signs/I&O 02/27/20 12:50 Temp 36.9 Pulse 92 Resp 18 B/P (MAP) 174/80 (111) Pulse Ox 95 O2 Delivery Room Air Capillary Refill : Diagnostic Imaging Diagonstic Imaging: CT Comments NAME: BRYN RODRIGUEZ [facility] REC#: [id number] PT STATUS: REG ER : 1970 PHYSICIAN: ANGELO MIRANDA APRN ADMIT DATE: 02/27/20/ER Draft Date of Exam:02/27/20 CT HEAD WO PROCEDURE: CT head without contrast. TECHNIQUE: Multiple contiguous axial images were obtained through the brain without the use of intravenous contrast. Auto Exposure Controls were utilized during the CT exam to meet ALARA standards for radiation dose reduction. INDICATION: Right temporal pain for 3 weeks. No prior studies are available for comparison. The ventricles and sulci are within normal limits. No sulcal effacement or midline shift is identified. No acute intra-axial or extra-axial hemorrhage is detected. Cisterns are patent. Visualized paranasal sinuses are clear. IMPRESSION: Unremarkable noncontrast CT of the brain. Dictated on workstation # [id number] Dict: 02/27/20 1413 Trans: 02/27/20 1415 [facility] [id number] Interpreted by: JAVAD WATKINS MD Electronically signed by: Departure Communication (Admissions) 0130- Headache is improved. Will dc to home. Impression Primary Impression: Headache Qualified Codes: R51 - Headache Disposition: HOME, SELF-CARE Condition: Stable Departure-Patient Inst. Decision time for Depature: 14:27 Referrals: EDWARD CORBIN MD (PCP/Family) Primary Care Physician Patient Instructions: Headache, Adult (DC) NIH Stroke Scale NIH Stroke Scale NIH : Select: Initial Level of Consciousness: 0=Alert Level of Consciousness-Questio: 0=Answers both month/age LOC Commands: 0=Performs both tasks Gaze: 0=Normal Visual [place]: 0=No visual loss Facial Movement (Facial Paresi: 0=Normal symmetrical mnt Motor Function-Arms Right: 0=No drift Motor Function-Arms Left: 0=No drift Motor Function-Legs Right: 0=No drift Motor Function-Legs Left: 0=No drift Limb Ataxia: 0=Absent Sensory: 1=Mild to Moderate loss Best Language: 0=No aphasia Dysarthria: 0=Normal Extinction & Inattention: 0=No abnormality NIH Stroke Scale Score: 1 ANGELO MIRANDA NURSING PROGRAM DIRECTOR Feb 27, 2020 13:02
[2020-02-27] MEDS ORDERED: fentaNYL INJECTION 100 MCG/2 ML AMP IVP ONE (13:15)
[2020-02-27] MEDS ORDERED: NS IV 500 ML 500 ML IV SCH (13:15)
[2020-02-27] MEDS ORDERED: NS IV 1000 ML 1,000 ML ONE (13:18)
--- NOTE | 2020-02-27 13:48 | Diagnostic Imaging Report ---
PATIENT HISTORY: Pneumonia, cough. TECHNIQUE: Single frontal view of the chest. COMPARISON: 03/09/2019. FINDINGS: The lung volumes are normal. No focal consolidation is seen. No large pleural effusion or pneumothorax is seen. The cardiomediastinal silhouette is normal in size and contour. No acute osseous abnormality is seen. IMPRESSION: No acute pulmonary abnormality seen. Dictated by: Dictated on workstation # [id number]
[2020-02-27 14:07] LABS: BASOPHILS % (AUTO) 0 % (0-10); EOSINOPHILS # (AUTO) 0.1 10^3/uL (0.0-0.3); EOSINOPHILS % (AUTO) 2 % (0-10); HEMATOCRIT 44 % (35-52); HEMOGLOBIN 14.4 G/DL (11.5-16.0); LYMPHOCYTES # (AUTO) 1.8 X 10^3 (1.0-4.0); LYMPHOCYTES % (AUTO) 30 % (12-44); MEAN CORPUSCULAR HEMOGLOBIN 28 PG (25-34); MEAN CORPUSCULAR HGB CONC 33 G/DL (32-36); MEAN CORPUSCULAR VOLUME 86 FL (80-99); MONOCYTES # (AUTO) 0.6 X 10^3 (0.0-1.0); MONOCYTES % (AUTO) 11 % (0-12); NEUTROPHILS # (AUTO) 3.4 X 10^3 (1.8-7.8); NEUTROPHILS % (AUTO) 57 % (42-75); PLATELET COUNT 226 10^3/uL (130-400); RED CELL DISTRIBUTION WIDTH 13.1 % (10.0-14.5); WHITE BLOOD COUNT 5.9 10^3/uL (4.3-11.0)
--- NOTE | 2020-02-27 14:15 | Diagnostic Imaging Report ---
PROCEDURE: CT head without contrast. TECHNIQUE: Multiple contiguous axial images were obtained through the brain without the use of intravenous contrast. Auto Exposure Controls were utilized during the CT exam to meet ALARA standards for radiation dose reduction. INDICATION: Right temporal pain for 3 weeks. No prior studies are available for comparison. The ventricles and sulci are within normal limits. No sulcal effacement or midline shift is identified. No acute intra-axial or extra-axial hemorrhage is detected. Cisterns are patent. Visualized paranasal sinuses are clear. IMPRESSION: Unremarkable noncontrast CT of the brain. Dictated by: Dictated on workstation # [id number]
[2020-02-27 14:20] LABS: ALBUMIN 4.4 GM/DL (3.2-4.5); CHLORIDE 110 MMOL/L (98-107); POTASSIUM 4.1 MMOL/L (3.6-5.0); SODIUM 140 MMOL/L (135-145)
[2020-02-27 14:21] LABS: CALCIUM 9.7 MG/DL (8.5-10.1)
[2020-02-27 14:22] LABS: GLUCOSE 96 MG/DL (70-105)
[2020-02-27 14:23] LABS: TOTAL PROTEIN 7.2 GM/DL (6.4-8.2)
[2020-02-27 14:24] LABS: BILIRUBIN,TOTAL 0.3 MG/DL (0.1-1.0); CARBON DIOXIDE 18 MMOL/L (21-32)
[2020-02-27 14:26] LABS: ALKALINE PHOSPHATASE 81 U/L (40-136); CREATININE SERUM 0.92 MG/DL (0.60-1.30); GFR ESTIMATED > 60
[2020-02-27 14:27] LABS: BUN/CREATININE RATIO 21
[2020-02-27 14:29] LABS: ALANINE AMINOTRANSFERASE 43 U/L (0-55)
[2020-02-27] MEDS ORDERED: diphenhydrAMINE 50 MG/ML INJ (BENADRYL) IVP ONE (14:30)
[2020-02-27] MEDS ORDERED: KETOROLAC 30 MG/ML VIAL IVP ONE (14:30)
[2020-02-27] MEDS ORDERED: PROCHLORPERAZINE 10 MG/2ML INJ (COMPAZINE) IV ONE (14:30)
[2020-02-27 15:08] VITALS: BP 148/64
--- OUTSIDE RECORDS SUMMARY | 2020-02-27 15:36 | XMS REPORT | Encounter Summary ---
Author Author [facility] Organization [facility] Address Unknown Phone Unavailable Care Team Providers Care Vice President Residential Solar Sales Name Role Phone PCP Unavailable Encounter Details Care Team Description Date Type Department Manolo Lewis MD [address] [place] [address] [phone] Arthropathy (Primary Dx) 02/09/2018 [place] [address] Social History Date Tobacco Use Types Packs/Day Years Used Never Assessed Sex Assigned at Date Recorded Not on file Industry Job Start Date Occupation Not on file Not on file Not on file Travel End Travel History Travel Start No recent travel history available. documented as of this encounter Plan of Treatment Not on filedocumented as of this encounter Results * XR Lumbar Spine 2 or 3 views (02/09/2018 12:17 PM CDT) Specimen Impressions Performed At There is dextroconvex curvature of the lumbar spine w ithout ANTOINESON spondylolisthesis. The vertebral body heights are maintained without evidence of compression fracture. Dis c spaces are maintained. Degenerative changes are seen in the SI joints. The visualized soft tissues are within normal limits. Narrative Performed At Patient: BRYN RODRIGUEZ Sex#: F # [id number] Hernandez#: [id number] [facility] Procedure Requested: [id number] XR LUMBA R SPINE 2 OR 3 VIEWS Reason for Exam: Arthropathy Exam Ordered: 02/09/2018 11 44 Exam Date/Time: 02/09/2018 121 7 Begin exam date/time: 02/09/2018 121 5 Dictation location: [place] Exam Date: 02/09/2018 12:17 PM XR LUMBAR SPINE 2 OR 3 VIEWS Indication: Arthropathy FINDINGS and Procedure Note Interface, Rad Results In - 02/09/2018 1:34 PM CDT Patient: BRYN RODRIGUEZ Sex#: F # 1970 Hernandez#: [id number] Location: [facility] XRAY Procedure Requested: [id number] XR LUMBAR SPINE 2 OR 3 VIEWS Reason for Exam: Arthropathy Exam Ordered: 02/09/2018 1144 Exam Date/Time: 02/09/2018 1217 Begin exam date/time: 02/09/2018 1215 Dictation location: [place] Exam Date: 02/09/2018 12:17 PM XR LUMBAR SPINE 2 OR 3 VIEWS Indication: Arthropathy FINDINGS and IMPRESSION There is dextroconvex curvature of the lumbar spine without spondylolisthesis. The vertebral body heights are maintained without evidence of compression fracture. Disc spaces are maintained. Degenerative changes are seen in the SI joints. The visualized soft tissues are within normal limits. Performing Organization Address City/State/Zipcode Ph one Number YENNI * XR Knee 3 views each bilat (02/09/2018 12:16 PM CDT) Specimen Impressions Performed At 1. Mild bilateral medial tibiofemoral joint space meg rowing. Minimal MCKESSON bilateral superior and inferior patella r enthesophytes. 2. No erosions demonstrated. 3. There is a small 2.6 mm rounded stru cture with mild increased density projecting along the anterior aspect of the knee joint seen only on the lateral view. Differential consideratio ns include a round soft tissue artifact; however, an intra-articular j oint body is not excluded. Reading Site: [facility] ital Narrative Performed At Patient: BRYN RODRIGUEZ Sex#: F # 1970 Hernandez#: [id number] Location: [facility] XRAY Procedure Requested: [id number] XR KNEE 3 VIEWS EACH BILAT Reason for Exam: Arthropathy Exam Ordered: 02/09/2018 11 44 Exam Date/Time: 02/09/2018 121 6 Begin exam date/time: 02/09/2018 121 5 RIGHT KNEE RADIOGRAPHS WITH 3 VIEWS: LEFT KNEE RADIOGRAPHS WITH 3 VIEWS: INDICATION: Arthropathy, knee pain EXAM DATE: 02/09/2018 12:16 PM COMPARISON: None FINDINGS: RIGHT KNEE FINDINGS: Mild medial tibial femoral joint space narrowing. Small superior and inferior patellar enthesophytes. No edie dence of acute fracture or dislocation. No erosions demonstrated. There is a small 2.6 mm rounded structu re with mild increased density projecting along the anterior aspect of the knee joint seen only on the lateral view. No significant knee joint effusion. Sma ll suprapatellar knee joint fluid which may be physiologic. LEFT KNEE FINDINGS: Minimal superior and inferior patellar enthesophytes. Mild medial tibiofemoral joint space narrowed. No erosions. No evidence of acute fract ure or dislocation. Procedure Note Interface, Rad Results In - 02/09/2018 1:30 PM CDT Patient: BRYN RODRIGUEZ Sex#: F # 1970 Hernandez#: [id number] Location: [facility] XRAY Procedure Requested: [id number] XR KNEE 3 VIEWS EACH BILAT Reason for Exam: Arthropathy Exam Ordered: 02/09/2018 1144 Exam Date/Time: 02/09/2018 1216 Begin exam date/time: 02/09/2018 1215 RIGHT KNEE RADIOGRAPHS WITH 3 VIEWS: LEFT KNEE RADIOGRAPHS WITH 3 VIEWS: INDICATION: Arthropathy, knee pain EXAM DATE: 02/09/2018 12:16 PM COMPARISON: None FINDINGS: RIGHT KNEE FINDINGS: Mild medial tibial femoral joint space narrowing. Small superior and inferior patellar enthesophytes. No evidence of acute fracture or dislocation. No erosions demonstrated. There is a small 2.6 mm rounded structure with mild increased density projecting along the anterior aspect of the knee joint seen only on the lateral view. No significant knee joint effusion. Small suprapatellar knee joint fluid which may be physiologic. LEFT KNEE FINDINGS: Minimal superior and inferior patellar enthesophytes. Mild medial tibiofemoral joint space narrowed. No erosions. No evidence of acute fracture or dislocation. IMPRESSION 1. Mild bilateral medial tibiofemoral moy int space narrowing. Minimal bilateral superior and inferior patellar enthesophytes. 2. No erosions demonstrated. 3. There is a small 2.6 mm rounded struc ture with mild increased density projecting along the anterior aspect of the knee joint seen only on the lateral view. Differential considerations include a round soft tissue artifact; however, an intra-articular joint body is not excluded. Reading Site: [facility] Organization Address City/State/Zipcode Ph one Number YENNI * XR Hand min 3 views each bilat (02/09/2018 12:16 PM CDT) Specimen Impressions Performed At No erosions demonstrated. YENNI Mild right fifth DIP joint space narrow ing. Minimal DJD at the right first CMC joint. No acute osseous abnormalities demonstr ated. Reading Site: [facility] Narrative Performed At Patient: BRYN RODRIGUEZ Sex#: F # 1970 Hernandez#: [id number] Location: [facility] Procedure Requested: [id number] XR HAND MIN 3 VIEWS EACH BILAT Reason for Exam: Arthropathy Exam Ordered: 02/09/2018 11 44 Exam Date/Time: 02/09/2018 121 6 Begin exam date/time: 02/09/2018 121 5 LEFT HAND RADIOGRAPHS WITH 3 VIEWS: RIGHT HAND RADIOGRAPHS WITH 3 VIEWS: INDICATION: Arthropathy EXAM DATE: 02/09/2018 12:16 PM COMPARISON: None FINDINGS: LEFT HAND FINDINGS: No erosions. Minimal DJD at the first C MC joint. No acute osseous abnormalities. Mild fifth DIP joint spa ce narrowing. RIGHT HAND FINDINGS: No erosions demonstrated. No acute osse ous abnormalities. No significant joint space narrowing. Chronic appearing transverse sclerosis within the fourth and fifth metacarpal heads. Procedure Note Interface, Rad Results In - 02/09/2018 1:18 PM CDT Patient: BRYN RODRIGUEZ Sex#: F # 1970 Hernandez#: [id number] Location: [facility] Procedure Requested: [id number] XR HAND MIN 3 VIEWS EACH BILAT Reason for Exam: Arthropathy Exam Ordered: 02/09/2018 1144 Exam Date/Time: 02/09/2018 1216 Begin exam date/time: 02/09/2018 1215 LEFT HAND RADIOGRAPHS WITH 3 VIEWS: RIGHT HAND RADIOGRAPHS WITH 3 VIEWS: INDICATION: Arthropathy EXAM DATE: 02/09/2018 12:16 PM COMPARISON: None FINDINGS: LEFT HAND FINDINGS: No erosions. Minimal DJD at the first CMC joint. No acute osseous abnormalities. Mild fifth DIP joint space narrowing. RIGHT HAND FINDINGS: No erosions demonstrated. No acute osseous abnormalities. No significant joint space narrowing. Chronic appearing transverse sclerosis within the fourth and fifth metacarpal heads. IMPRESSION No erosions demonstrated. Mild right fifth DIP joint space narrowing. Minimal DJD at the right first CMC joint. No acute osseous abnormalities demonstrated. Reading Site: [facility] Performing Organization Address City/State/Zipcode Ph one Number YENNI * XR Foot 2 views bilat (02/09/2018 12:15 PM CDT) Specimen Impressions Performed At 1. No erosions demonstrated. YENNI 2. Suggestion of some subluxations and/ or joint space narrowing at the right second through fourth MTP joints. Consider follow-up oblique imaging of the right foot for further e valuation. 3. There is at least joint space narrow ing at the left first MTP joint. Mild subluxation at this joint is not e ntirely excluded. 4. No evidence of acute fracture. Reading Site: [facility] Narrative Performed At Patient: BRYN RODRIGUEZ Sex#: F # 1970 Hernandez#: [id number] Location: [facility] XRAY Procedure Requested: [id number] XR FOOT 2 VIEWS BILAT Reason for Exam: Arthropathy Exam Ordered: 02/09/2018 11 46 Exam Date/Time: 02/09/2018 121 5 Begin exam date/time: 02/09/2018 121 4 RIGHT FOOT RADIOGRAPHS WITH 2 VIEWS: LEFT FOOT RADIOGRAPHS WITH 2 VIEWS: INDICATION: Arthropathy EXAM DATE: 02/09/2018 12:16 PM COMPARISON: None FINDINGS: RIGHT FOOT FINDINGS: Suggestion of some subluxations and/or joint space narrowing at the second through fourth MTP joints. There is greater than usual overlap of the second through fourth metatarsal he ads and adjacent second through fourth proximal phalanx bases. No erosions demonstrated. No evidence o f acute fracture. LEFT FOOT FINDINGS: The second through the fifth toes are f lexed/curled. No evidence of acute fracture. There is at least joint space narrowing at the first MTP joint. Mild subluxatio n is not entirely excluded. No erosions demonstrated. Procedure Note Interface, Rad Results In - 02/09/2018 1:15 PM CDT Patient: BRYN RODRIGUEZ Sex#: F # 1970 Hernandez#: [id number] Location: [facility] XRAY Procedure Requested: [id number] XR FOOT 2 VIEWS BILAT Reason for Exam: Arthropathy Exam Ordered: 02/09/2018 1146 Exam Date/Time: 02/09/2018 1215 Begin exam date/time: 02/09/2018 1214 RIGHT FOOT RADIOGRAPHS WITH 2 VIEWS: LEFT FOOT RADIOGRAPHS WITH 2 VIEWS: INDICATION: Arthropathy EXAM DATE: 02/09/2018 12:16 PM COMPARISON: None FINDINGS: RIGHT FOOT FINDINGS: Suggestion of some subluxations and/or joint space narrowing at the second through fourth MTP joints. There is greater than usual overlap of the second through fourth metatarsal heads and adjacent second through fourth proximal phalanx bases. No erosions demonstrated. No evidence of acute fracture. LEFT FOOT FINDINGS: The second through the fifth toes are flexed/curled. No evidence of acute fracture. There is at least joint space narrowing at the first MTP joint. Mild subluxation is not entirely excluded. No erosions demonstrated. IMPRESSION 1. No erosions demonstrated. 2. Suggestion of some subluxations and/o r joint space narrowing at the right second through fourth MTP joints. Consider follow-up oblique imaging of the right foot for further evaluation. 3. There is at least joint space narrowi ng at the left first MTP joint. Mild subluxation at this joint is not entirely excluded. 4. No evidence of acute fracture. Reading Site: [facility] Performing Organization Address City/State/Zipcode Ph one [place] HYMAN documented in this encounter Visit Diagnoses Diagnosis Arthropathy Unspecified arthropathy, site unspecifi ed documented in this encounter
--- OUTSIDE RECORDS SUMMARY | 2020-02-27 15:36 | XMS REPORT | Clinical Summary ---
Author Author [facility] Organization [facility] Address Unknown Phone Unavailable Care Team Providers Care Coating Machine Operator Helper Name Role Phone PCP Unavailable Allergies Not on File Medications Not on file Active Problems Not on file Social History Date Tobacco Use Types Packs/Day Years Used Never Assessed Sex Assigned at Date Recorded Not on file Industry Job Start Date Occupation Not on file Not on file Not on file Travel End Travel History Travel Start No recent travel history available. Last Filed Vital Signs Not on file Plan of Treatment Health Maintenance Due Date Last Done Comments Medicare Annual Wellness 1970 Td # 1970 Cervical Cancer Screening 1990 via Pap Smear Colorectal Screening via 2019 Colonoscopy Mammogram Screening 2019 Zoster Vaccine# (1 of 2) 2019 Influenza Vaccine (Season 07/21/2020 Ended) Pneumococcal Vaccine: Aged Out No longer eligib le based on patient's age to Pediatrics (0 to 5 Years) complete this topic and At-Risk Patients (6 to 64 Years) Results Not on filefrom Last 3 Months Insurance Type Payer Benefit Subscriber ID Effective Phone Address Plan / Dates Group MEDICARE REPLACEMENT PLAN ADVANTRA xxxxxxxxxxx [id number] [employer]OM resent MEDICARE PPO Advance Directives For more information, please contact: [phone] 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
--- OUTSIDE RECORDS SUMMARY | 2020-02-27 15:36 | XMS REPORT | Encounter Summary ---
Author Author [facility] Organization [facility] Address Unknown Phone Unavailable Care Team Providers Care Code Enforcement Inspector Name Role Phone PCP Unavailable Encounter Details Care Team Description Date Type Department Manolo Lewis MD [address] [place] [address] [phone] Arthropathy 02/09/2018 [facility] [address] [place] [address] Social History Date Tobacco Use Types Packs/Day Years Used Never Assessed Sex Assigned at Date Recorded Not on file Industry Job Start Date Occupation Not on file Not on file Not on file Travel End Travel History Travel Start No recent travel history available. documented as of this encounter Plan of Treatment Not on filedocumented as of this encounter Procedures Comments Procedure Name Priority Date/Time Associated Diag nosis XR LUMBAR SPINE 2 OR 3 Routine 02/09/2018 Arthrop athy VIEWS 12:17 PM CDT documented in this encounter Results * XR Lumbar Spine 2 or 3 views (02/09/2018 12:17 PM CDT) Specimen Impressions Performed At There is dextroconvex curvature of the lumbar spine w ithout YENNI spondylolisthesis. The vertebral body heights are maintained without evidence of compression fracture. Dis c spaces are maintained. Degenerative changes are seen in the SI joints. The visualized soft tissues are within normal limits. Narrative Performed At Patient: BRYN RODRIGUEZ Sex#: F # 1970 Hernandez#: [id number] Location: [facility] XRAY Procedure Requested: [id number] XR LUMBA R SPINE 2 OR 3 VIEWS Reason for Exam: Arthropathy Exam Ordered: 02/09/2018 11 44 Exam Date/Time: 02/09/2018 121 7 Begin exam date/time: 02/09/2018 121 5 Dictation location: [place] Exam Date: 02/09/2018 12:17 PM XR LUMBAR SPINE 2 OR 3 VIEWS Indication: Arthropathy FINDINGS and Procedure Note Interface, Rad Results In - 02/09/2018 1:34 PM CDT Patient: BRYN RODRIGUEZ Sex#: F # 1970 Hernandez#: [id number] Location: [facility] XRAY Procedure Requested: [id number] XR LUMBAR SPINE 2 OR 3 VIEWS Reason for Exam: Arthropathy Exam Ordered: 02/09/2018 1144 Exam Date/Time: 02/09/2018 1217 Begin exam date/time: 02/09/2018 1215 Dictation location: [place] Exam Date: 02/09/2018 12:17 PM XR LUMBAR [...] Organization Address City/State/Zipcode Ph one Number YENNI documented in this encounter Visit Diagnoses Diagnosis Arthropathy Unspecified arthropathy, site unspecifi ed documented in this encounter
--- OUTSIDE RECORDS SUMMARY | 2020-02-27 15:36 | XMS REPORT | Encounter Summary ---
Author Author [facility] Organization [facility] Address Unknown Phone Unavailable Care Team Providers Care Shell Press Operator Name Role Phone PCP Unavailable Encounter Details Care Team Description Date Type Department Manolo Lewis MD [address] [place] [address] [phone] Arthropathy 02/09/2018 [facility] [address] [place] [address] Social History Date Tobacco Use Types Packs/Day [...] Name Priority Date/Time Associated Diag nosis XR HAND MIN 3 VIEWS EACH Routine 02/09/2018 Arthr opathy BILAT 12:16 PM CDT documented in this encounter Results * XR Hand min 3 views each bilat (02/09/2018 12:16 PM CDT) Specimen Impressions Performed At No erosions demonstrated. YENNI Mild right fifth DIP joint space narrow ing. Minimal DJD at the right first CMC joint. No acute osseous abnormalities demonstr ated. Reading Site: [facility] Narrative Performed At Patient: BRYN RODRIGUEZ Sex#: Raven # 1970 Hernandez#: [id number] Location: [facility] Procedure Requested: [id number] XR HAND MIN 3 VIEWS EACH BILAT [...] BRYN RODRIGUEZ Sex#: F # 1970 Hernandez#: [id number] Location: [facility] XRAY Procedure Requested: [id number] XR HAND MIN 3 VIEWS EACH BILAT [...] No acute osseous abnormalities demonstrated. Reading Site: [facility] Performing Organization Address City/State/Zipcode Ph one Number ARTHURCLARICE documented in this encounter Visit Diagnoses Diagnosis Arthropathy Unspecified arthropathy, site unspecifi ed documented in this encounter
--- OUTSIDE RECORDS SUMMARY | 2020-02-27 15:36 | XMS REPORT | Encounter Summary ---
Author Author [facility] Address Unknown Phone Unavailable Care Team Providers Care Barker Peeler Name Role Phone PCP Unavailable Encounter Details Care Team Description Date Type Department Manolo Lewis MD [address] [place] [address] [phone] Arthropathy 02/09/2018 [facility] [address] [place] [address] Social History Date Tobacco Use Types Packs/Day [...] Name Priority Date/Time Associated Diag nosis XR FOOT 2 VIEWS BILAT Routine 02/09/2018 Arthropa thy 12:15 PM CDT documented in this encounter Results * XR Foot 2 views bilat (02/09/2018 [...] No evidence of acute fracture. Reading Site: [facility] ital Narrative Performed At Patient: BRYN RODRIGUEZ Sex#: Raven # 1970 Hernandez#: [id number] Location: [facility] XRAY Procedure Requested: [id number] XR FOOT 2 VIEWS BILAT Reason for [...] BRYN RODRIGUEZ Sex#: F # 1970 Hernandez#: [id number] Location: [facility] XRAY Procedure Requested: [id number] XR FOOT 2 VIEWS BILAT Reason for [...] No evidence of acute fracture. Reading Site: [facility] Performing Organization Address City/State/Zipcode Ph one Number [facility] documented in this encounter Visit Diagnoses Diagnosis Arthropathy Unspecified arthropathy, site unspecifi ed documented in this encounter
--- OUTSIDE RECORDS SUMMARY | 2020-02-27 15:36 | XMS REPORT | Encounter Summary ---
Author Author [facility] Address Unknown Phone Unavailable Care Team Providers Care Shipping Processor Name Role Phone PCP Unavailable Encounter Details Care Team Description Date Type Department Manolo Lewis MD [address] [place] [address] [phone] Arthropathy 02/09/2018 [facility] [address] [place] [address] Social History Date Tobacco Use Types Packs/Day [...] Name Priority Date/Time Associated Diag nosis XR KNEE 3 VIEWS EACH Routine 02/09/2018 Arthropat hy BILAT 12:16 PM CDT documented in this encounter Results * XR Knee 3 views each bilat [...] oint body is not excluded. Reading Site: [facility] ital Narrative Performed At Patient: MICHAELBRYN Sex#: F # 1970 Ehrnandez#: [id number] Location: [facility] XRAY Procedure Requested: [id number] XR KNEE 3 VIEWS EACH BILAT Reason [...] BRYN RODRIGUEZ Sex#: F # 1970 Hernandez#: [id number] Location: [facility] XRAY Procedure Requested: [id number] XR KNEE 3 VIEWS EACH BILAT Reason [...] joint body is not excluded. Reading Site: [facility] Performing Organization Address City/State/Zipcode Ph one Number YENNI documented in this encounter Visit Diagnoses Diagnosis Arthropathy Unspecified arthropathy, site unspecifi ed documented in this encounter
--- OUTSIDE RECORDS SUMMARY | 2020-02-27 15:37 | XMS REPORT ---
Author Author [employer] [facility] Address [address] [address] Care Team Providers Care Latex Spooler Name Role Phone EMERALD, EDWARD Unavailable Unavailable EMERALD, EDWARD Unavailable KAREN FLORENTINO Unavailable EMERALD, EDWARD N Unavailable ALVA SANTIAGO Unavailable Unavailable AMAN SCHAEFER Unavailable Unavailable EMERALD, EDWARD Unavailable ABBIE GIORDANO Unavailable EMERALD, EDWARD Unavailable TOBI GUO Unavailable EMERALD, EDWARD Unavailable TOBI GUO Unavailable EMERALD, EDWARD Unavailable EMERALD, EDWARD Unavailable EMERALD, EDWARD Unavailable EMERALD, EDWARD Unavailable EMERALD, EDWARD N Unavailable EMERALD, EDWARD Unavailable GUS ESTRELLA Unavailable EMERALD, EDWARD Unavailable EMERALD, EDWARD Unavailable EMERALD, EDWARD Unavailable EMERALD, EDWARD Unavailable EMERALD, EDWARD Unavailable EMERALD, EDWARD Unavailable GUS ESTRELLA Unavailable EMERALD, EDWARD Unavailable EMERALD, EDWARD Unavailable EMEARLD, EDWARD Unavailable EMERALD, EDWARD Unavailable EMERALD, EDWARD Unavailable EMERALD, EDWARD Unavailable EMERALD, EDWARD Unavailable EMERALD, EDWARD Unavailable EMERALD, EDWARD Unavailable EMERALD, EDWARD Unavailable EMERALD, EDWARD Unavailable EMERALD, EDWARD Unavailable EMERALD, EDWARD Unavailable ALINE ALCANTARA APRN Unavailable Unavailable EMERALD, EDWARD Unavailable TOBI GUO Unavailable EMERALD, EDWARD Unavailable EMERALD, EDWARD Unavailable ESTRELLA, GUS Unavailable ESTRELLA, GUS Unavailable MIKEY SMALL Unavailable EMERALD, EDWARD Unavailable EMERALD, EDWARD Unavailable EMERALD, EDWARD Unavailable PRATIMA PATEL DO Unavailable Unavailable ALINE ALCANTARA APRN Unavailable Unavailable TOBI GUO MD Unavailable Unavailable TOBI GUO MD R Unavailable Unavailable EDWARD CORBIN MD N Unavailable Unavailable EMERALD YOGESH JACOBOY N Unavailable Unavailable ANGELICA HARLEY DO Unavailable Unavailable ESTRELLA, GUS Unavailable EMERALD, EDWARD Unavailable ANGELO MIRANDA APRN Unavailable Unavailable EMERALD, EDWARD Unavailable TOBI GUO Unavailable EMERALD, EDWARD Unavailable EMERALD, EDWARD Unavailable EMERALD, EDWARD Unavailable EMERALD, EDWARD Unavailable DEREK NI Unavailable EMERALD, EDWARD Unavailable Migration, Doctor Unavailable Unavailable Migration, Doctor Unavailable Unavailable Migration, Doctor Unavailable Unavailable SERINA JACOBO, CIERA Vuong Unavailable Unavailable KIARA SANDS Unavailable Unavailable ANGELICA HARLEY DO Unavailable Unavailable EMERALD , EDWARD N Unavailable Unavailable MIKEY SMALL ELECTROCARDIOGRAPH OPERATOR Unavailable Unavailable ANGELO MIRANDA ELECTROCARDIOGRAPH OPERATOR Unavailable Unavailable PRATIMA PATEL DO Unavailable Unavailable SARI JACOBO, TOBI Eldridge Unavailable Unavailable SARI JACOBO, TOBI Eldridge Unavailable Unavailable EMERALD , EDWARD N Unavailable Unavailable Migration, Doctor Unavailable Unavailable GARCIA, JAMES Unavailable EMERALD, EDWARD Unavailable EMERALD, EDWARD Unavailable EMERALD, EDWARD Unavailable EMERALD, EDWARD Unavailable EMERALD, EDWARD Unavailable EMERALD, EDWARD Unavailable EMERALD, EDWARD N Unavailable Unavailable EMERALD, EDWARD Unavailable EMERALD, EDWARD Unavailable EMERALD, EDWARD N PCP EMERALD, EDWARD Unavailable EMERALD, EDWARD Unavailable GARCIA, JAMES Unavailable KRISTINECLAUDIO SHAHNDA Unavailable EMERALD, EDWARD Unavailable EMERALD, EDWARD Unavailable EMERALD, EDWARD Unavailable EMERALD, EDWARD Unavailable Unavailable Unavailable EMERALD, EDWARD Unavailable EMERALD, EDWARD Unavailable EMERALD, EDWARD Unavailable EMERALD, EDWARD Unavailable RADHA JAMES Unavailable Unavailable Unavailable Unavailable Unavailable Unavailable Unavailable Unavailable Unavailable Allergies The data below is from unstructured sources Unknown AllergiesNo Known Allergies No Known Allergies No Known Allergies No Known Allergies No Known Allergies No Known Allergies No Known Allergies No Known Allergies No Known Allergies No Known Allergies No Known Allergies No Known Allergies No Known Allergies No Known Allergies No Known Allergies No Known Allergies No Known Allergies No Known Allergies No Known Allergies No Known Allergies No Known Allergies No Known Allergies No Known Allergies No Known Allergies No Known Allergies No Known Allergies No Known Allergies No Known Allergies No Known Allergies No Known Allergies No Known Allergies No Known Allergies Unknown Allergies Unknown Allergies Unknown Allergies Unknown Allergies Unknown Allergies Unknown Allergies No Known Allergies No Known Allergies No Information No Information No Information No Information No Information No Information No Information No Information No Information No Information No Information No Information No Information No Information No Information No Information No Information No Information No Information No Information No Information No Information No Information No Information No Information No Information No Information No Information No Information No Information No Information No Information No Information No Information No Information No Information No Information No Information No Information No Information No Information No Information No Information No Information No Information No Information No Information No Information No Information No Information No Information No Information No Information No Information No Information No Information No Information No Information No Information No Information No Information No Information No Information No Information No Information No Information No Information No Information No Information No Information No Information No Information No Information No Information No Information No Information No Information No Information No Information No Information No Information No Information No Information No Information No Information No Information No Information No Information No Information No Information No Information No Information No Information No Information No Information No Information No Information No Information No Information No Information No Information No Information No Information No Information No Information No Information No Information No Information No Information No Information No Information No Information No Information No Information No Information No Information No Information No Information No Information No Information Medications Medication Ingredient Drug Dose Dates Status Sig Sig Care Class(es) (Normalized) (Original) Provid er amoxicillin Amoxicillin Penicillin- 10-19-20 Active take 1 Augme ntin no 875 mg / / class 15 tablet by 875-125 mg 1 name clavulanate Clavulanate Antibacteri mouth twice tablet by 125 mg oral Translation al daily Oral route 2 tablet (1 s: [ times per source.) Augmentin day for 14 875-125 mg] day(s) Sep, Active no Breo no Active take 200-25 Breo Ellipta no information Ellipta information ug by 200-25 name (1 source.) 200-25 inhalation MCG/INH MCG/INH once daily Inhalation Once a day 1 puff 24h Active cetirizine cetirizine Histamine-1 10 mg 03-22-20 Active no Cetirizine no hydrochlori Translation Receptor 18 - information HCl 10 mg name de 10 mg s: [ Antagonist 09-18-20 Orally Once oral tablet Cetirizine 18 a day 1 (4 HCl 10 mg, tablet 24h sources.) Cetirizine Mar, HCl 10 mg] Aug, 30 day(s) Active 10 mg 03-22-2018 Active no Cetirizi no name - inform ne HCl 09-18-2018 ation 10 mg Orally Once a day 1 tablet 24h Mar, Aug, 30 day(s) Active no Flonase 50 no 1 03-22-20 Active take 1 Flonase 5 0 no information MCG/ACT information spray( 18 spray(s) MCG/ACT n blayne (1 source.) s) nasal route Nasally Once once daily a day 1 spray in each nostril 24h Mar, 30 day(s) Active fluticasone fluticasone Corticoster 1 03-22-20 Active take 1 Flonase 50 no propionate Translation oid spray( 18 spray(s) MCG/ACT nam e 0.05 s: [ s) nasal route Nasally Once mg/actuat Flonase 50 once daily a day 1 metered MCG/ACT] spray in dose nasal each nostril spray (2 24h Mar, sources.) 2017 30 day(s) Active 30 actuat fluticasone Corticoster Active take 200-25 Breo El lipta no fluticasone / oid, ug by 200-25 name furoate 0.2 vilanterol beta2-Adren inhalation MCG/INH mg/actuat / Translation ergic once daily Inhalation vilanterol s: [ Breo Agonist Once a day 1 0.025 Ellipta puff 24h mg/actuat 200-25 Active dry powder MCG/INH, inhaler (3 Breo sources.) Ellipta 200-25 MCG/INH] guaiFENesin guaiFENesin no 400 mg 02-01-20 Active no Gua ifenesin no 400 mg oral Translation information 18 - information 400 mg name tablet (6 s: [ 08-29-20 Orally every sources.) Guaifenesin 18 4 hrs 1 400 mg, tablet as Guaifenesin needed 4h 14 400 mg, Jan, 2018 10 Guaifenesin Aug, 2018 30 400 mg] days Active 400 mg 01-31-2018 Active no Guaifene no name inform sin 400 ation mg Orally every 4 hrs 1 tablet as needed 4h 14 Jan, 2018 30 days Active no Incruse no 62.5 Active take 62.5 ug Incruse no information Ellipta information ug/{ac by Ellipta 62.5 name (1 source.) 62.5 tuate} inhalation MCG/INH MCG/INH once daily Inhalation Once a day 1 puff 24h Active lubiproston lubiproston Chloride 0.024 11-29-19 Active take 1 A mitiza 24 no e 0.024 mg e Channel mg 15 capsule by mcg take 1 na me oral Translation Activator mouth twice capsule (24 capsule (1 s: [ daily at mcg) by oral source.) Amitiza 24 mealtime route 2 mcg] times per day with food and water Nov, Active montelukast montelukast Leukotriene 10 mg Active no Singulai r 10 no 10 mg oral Translation Receptor information MG Orally name tablet (6 s: [ Antagonist Once a day 1 sources.) Singulair tablet 24h 10 MG, Active Singulair 10 MG] 10 mg Active no Singulai no name inform r 10 MG ation Orally Once a day 1 tablet 24h Active no ProAir HFA no 2 03-21-20 Active take 2 ProAir HF A no information 108 (90 information puff(s 15 puff(s) by 108 (90 name (1 source.) Base) ) inhalation Base) MCG/ACT every four MCG/ACT hours as Inhalation needed every 4 hrs 2 puffs as needed 4h Mar, Active sulfamethox Sulfamethox Dihydrofola 08-09-20 Active take 1 Bactr im DS no azole 800 azole / te 14 tablet by 800-160 mg name mg / Trimethopri Reductase mouth every take 1 trimethopri m Inhibitor twelve hours tablet by m 160 mg Translation Antibacteri oral route oral tablet s: [ al, every 12 (1 source.) Bactrim DS Sulfonamide hours for 7 800-160 mg] Antimicrobi days Jul, Active no Symbicort no 2 10-19-19 Active take 2 Symbicort no information 160-4.5 information puff(s 15 puff(s) by 160-4.5 name (1 source.) mcg/actuati ) inhalation mcg/actuatio on twice daily n inhale 2 in the puffs by morning Inhalation route in the morning and evening 2 times per day [facility] Sep, Active 7 actuat umeclidiniu Anticholine 62.5 Active take 62.5 ug Incru se no umeclidiniu m rgic ug/{ac by Ellipta 62.5 na me m 0.0625 Translation tuate} inhalation MCG/INH mg/actuat s: [ once daily Inhalation dry powder Incruse Once a day 1 inhaler (3 Ellipta puff 24h sources.) 62.5 Active MCG/INH, Incruse Ellipta 62.5 MCG/INH] Problems Active Problems Problem Normalized Date Last Normalized Normalized Provider Fa cility Classification Problem(s) Recorded Problem Problem Sta tus Duration Abdominal pain Abdominal Episodic Active ANGELO MIRANDA Not A vailable (9 sources.) pain, (63596) epigastric Translations: [ ABDOMINAL PAIN, UNSPECIFIED SITE, ABDOMINAL PAIN, RIGHT UPPER QUADRANT, ABDOMINAL PAIN, UNSPECIFIED SITE, ABDOMINAL PAIN, RIGHT UPPER QUADRANT] Residual Acquired Episodic Active ANGELO MIRANDA Not Availab le codes; absence of (93150) unclassified both cervix (2 sources.) and uterus Residual Acquired Episodic Active ANGELO MIRANDA [facility] Via codes; absence of [facility] unclassified other Hospital - (1 source.) specified [place] parts of (49895) digestive tract Chronic Acute Chronic Active [facility] obstructive exacerbation [address] [facility] pulmonary of chronic of [facility] disease and obstructive [place] (25834) bronchiectasis airways (11 sources.) disease Translations: [ COPD exacerbation, - COPD exacerbation J44.1] Other upper Allergic Chronic Active [facility] Via respiratory rhinitis, MARICRUZ [facility] disease (1 unspecified Hospital - source.) [place] ([address]155) Chronic Bronchitis, no information Active [facility] V ia obstructive not specified MARICRUZSIENA [facility] pulmonary as acute or Hospital - disease and chronic [place] bronchiectasis Translations: (83758) (2 sources.) [ CHRONIC OBSTRUCTIVE PULMONARY DISEASE, U] Other nervous Carpal tunnel Chronic Active TOBI GUO [facility] syndrome[facility] [address] [facility] disorders (20 right upper of [place] sources.) limb [place] (51245) Translations: [ - Carpal tunnel syndrome, right upper limb G56.01, - Carpal tunnel syndrome, right upper limb G56.01] Other Chronic Episodic Active [facility] gastrointestin constipation [address] [facility] al disorders Translations: of [facility] (20 sources.) [ Chronic [place] (90423) constipation, Chronic constipation] Unclassified Chronic pain Episodic Active PETER MIRANDA Not Available (23 sources.) syndrome (27997) Translations: [ Chronic pain syndrome, Chronic pain syndrome, ACQUIRED ABSENCE OF OTHER SPECIFIED PART, ACQUIRED ABSENCE OF BOTH CERVIX AND UTER, FAMILY HISTORY OF MALIGNANT NEOPLASM OF , FAMILY HX OF ISCHEM HEART DIS AND OTH DI] Other nervous Chronic pain Chronic Active EDWARD EMERALD [facility] syndrome [facility] [facility] disorders (5 Translations: of [facility] sources.) [ Chronic pain [place] (60975) syndrome] Other nervous Chronic pain Chronic Active EDWARD EMERALD [facility] system syndrome [address] [facility] disorders (20 Translations: of [facility] sources.) [ - Chronic [place] (48010) pain syndrome G89.4, - Chronic pain syndrome G89.4] Other Constipation, Episodic Active [facility] it gastrointestin unspecified [address] [facility] al disorders Translations: of [facility] (20 sources.) [ - Chronic [place] (25596) constipation K59.00, - Chronic constipation K59.00] Other Constipation, Episodic Active PETER MIRANDA Not Av ailable gastrointestin unspecified (04888) al disorders (5 sources.) Other lower Cough Episodic Active [facility] respiratory Translations: [address] [facility] Center disease (20 [ - Cough R05, of [place] sources.) - Persistent [place] (68573) cough for 3 weeks or longer R05, - Cough R05, - Persistent cough for 3 weeks or longer R05, - Cough, persistent R05] Allergic Diarrhea Episodic Active PETER MIRANDA Not Availab le reactions (20 Translations: (09252) sources.) [ - Diarrhea 787.91, - Diarrhea 787.91, DIARRHEA] Other Diarrhea, Episodic Active [facility] gastrointestin unspecified [address] [facility] al disorders Translations: of [facility] (20 sources.) [ - Diarrhea, [place] (86921) unspecified type R19.7, - Bloody diarrhea R19.7, - Diarrhea, unspecified type R19.7, - Bloody diarrhea R19.7] Other Disorder of Episodic Active TOBI GAULT [facility] gastrointestin colon [address] [place] [address] al disorders Translations: of [place] (20 sources.) [ Colon wall [place] (65039) thickening, Colon wall thickening] Diverticulosis Diverticulosis Chronic Active PETER MIRANDA Not Available and of colon (39949) diverticulitis (without (5 sources.) mention of hemorrhage) Other lower Dyspnea, Episodic Active TOBI GAULT , Not Lena ilable respiratory unspecified MD (22757) disease (7 sources.) Residual Family history Episodic Active PETER MIRANDA Not A vailable codes; of ischemic (91060) unclassified heart disease (2 sources.) and other diseases of the circulatory system Residual Family history Episodic Active PETER MIRANDA Not A vailable codes; of malignant (13999) unclassified neoplasm of (2 sources.) digestive organs Other injuries History of Episodic Active TOBI DEL [facility]OROULT Comm unity and conditions falling [address] [place] [address] due to Translations: of [facility] external [ - At high [place] (54137) causes (20 risk for falls sources.) Z91.81, - At high risk for falls Z91.81] Other diseases Hypertrophy of Episodic Active EDWARD EMERADL Community of bladder and bladder [address] [place] [address] urethra (20 Translations: of [place] sources.) [ Bladder wall [place] (42578) thickening, Bladder wall thickening] Other diseases Hypertrophy of Chronic Active EDWARD EMERALD Community of bladder and bladder [address] [place] [address] urethra (5 Translations: of [place] sources.) [ Bladder wall [place] (03343) thickening] Fluid and Hypokalemia Episodic Active CIERA Not Availa ble electrolyte Translations: MD SERINA (46530) disorders (8 [ DEHYDRATION] sources.) Other lower Hypoxemia Episodic Active TOBI GAULT Communit y respiratory Translations: [address] [place] [address] disease (20 [ - Hypoxia of [place] sources.) R09.02, - [place] (51857) Hypoxia R09.02] Nausea and Nausea with Episodic Active CIERA Not Avail able vomiting (20 vomiting MD SERINA (47357) sources.) Translations: [ VOMITING ALONE, - Nausea and vomiting, intractability of vomiting not specified, unspecified vomiting type R11.2] Other nervous Other chronic Chronic Active TOBI GUO [facility] [address] [facility] disorders (20 Translations: of [facility] sources.) [ - Other [place] (82181) chronic pain G89.29, - Other chronic pain G89.29] Other Other Episodic Active EDWARD CORBIN Not Avail able gastrointestin MD rohan (72617) al disorders (5 sources.) Other lower Other forms of Episodic Active ALINE Not A vailable respiratory dyspnea MARICRUZ (44168) disease (21 sources.) Other Other specific Chronic Active ANGELO MIRANDA Not A vailable non-traumatic joint (50480) joint derangements disorders (7 of right hip, sources.) not elsewhere classified Other liver Other Chronic Active ANGELO MIRANDA Not Avail able diseases (5 specified (21447) sources.) disorders of liver Other Pain in right Episodic Active ANGELO MIRANDA Not Av ailable non-traumatic hip (55288) joint disorders (7 sources.) Other Pain in right Episodic Active EDWARD CORBIN Comm unity non-traumatic knee [facility] [facility] joint Translations: of [facility] disorders (5 [ - Acute pain [place] (52731) sources.) of right knee M25.561] Deficiency and Pernicious Episodic Active TOBI GUO Comm unity other anemia anemia [facility] [facility] (20 sources.) Translations: of [facility] [ Pernicious [place] (17104) anemia, Pernicious anemia] Other lower Shortness of Episodic Active TOBI GUO Commu nity respiratory breath [address] [facility] disease (20 Translations: of [facility] sources.) [ - Shortness [place] (81085) of breath R06.02, - Shortness of breath R06.02, - Shortness of breath at rest R06.02] Sprains and Sprain of Episodic Active TOBI GUO Communit y strains (20 tibiofibular [address] [facility] sources.) ligament of of [facility] right ankle, [place] (16078) subsequent encounter Translations: [ - High ankle sprain of right lower extremity, subsequent encounter S93.431D, - Sprain of right ankle, unspecified ligament, subsequent encounter S93.401D, - High ankle sprain of right lower extremity, subsequent encounter S93.431D, - Sprain of right ankle, unspecified ligament, subsequent encounter S93.401D] Other lower Tachypnea, not Episodic Active EDWARD EMERALD C ommunity respiratory elsewhere [address] [place] [address] Center disease (7 classified of [place] sources.) Translations: [place] () [ - Tachypnea on examination R06.82] Gastritis and Unspecified Episodic Active PETER MIRANDA Not Available duodenitis (5 gastritis and (60294) sources.) gastroduodenit is, without mention of hemorrhage Other injuries Unspecified Episodic Active TOBI GAULT Com munity and conditions injury of [address] [place] [address] Center due to right ankle, of [place] external initial [place] () causes (20 encounter sources.) Translations: [ - Injury of right ankle, initial encounter S99.911A, - Injury of right ankle, initial encounter S99.911A] Otitis media Unspecified Episodic Active EDWARD EMERALD Com munity and related nonsuppurative [address] [place], [place] [address]e r conditions (5 otitis media, of [facility] sources.) right ear [place] () Translations: [ - Right otitis media with effusion H65.91] Past or Other Problems Problem Normalized Date Last Normalized Normalized Provider Fa cility Classification Problem(s) Recorded Problem Problem Sta tus Duration Other lower Cough Episodic Completed KIARA WICHO Not Avai lable respiratory (07927) disease (1 source.) Residual Hypersomnia, no information no information ALINE [facility] Via codes; unspecified MARICRUZ [facility] unclassified Hospital - (1 source.) [place] () External cause Other external no information no information LEENA OTHY Not Available codes: cause status MD SERINA () Unspecified (2 Translations: sources.) [ OTHER ACTIVITY] Unclassified Overexertion no information no information no name no information (6 sources.) from prolonged static or awkward postures, initial encounter External cause Overexertion no information no information TIMOT HY Not Available codes: from strenuous MD SERINA (98917) Natural/enviro movement or nment (9 load, initial sources.) encounter Translations: [ EXCESSIVE HEAT: WEATHER, OVEREXERTION FROM PROLONGED STATIC OR AW] NEGATED Sleep apnea, no information no information no name [facility] Via no unspecified [place] information (3 Hospital - sources.) [place] ([address]888) Other injuries Unspecified Episodic Completed CIERA Not A vailable and conditions effects of MD SERINA (02662) due to heat and light external causes (1 source.) Procedures Procedure Normalized Procedure Procedure Result Performer Facility Date 05-29-2014 Assay of magnesium no information no name [facility] ([id number]) 05-29-2014 Assay of thyroid no information no name [facility] stimulating hormone [facility] (00697) 06-13-2014 Basic metabolic panel no information no name C [facility] calcium total [facility] (67458) 05-29-2014 Blood count complete no information no name [facility] auto&auto difrntl wbc [facility] (12934) 06-13-2014 Collection venous no information no name [facility] blood venipuncture [facility] (54515) 05-29-2014 Collection venous no information no name [facility] blood venipuncture [facility] (21722) 05-29-2014 Comprehensive no information no name [facility] metabolic panel [facility] (78767) 08-09-2014 Culture bacterial no information no name [facility] quanttative colony [facility] (72399) 05-29-2014 Cyanocobalamin vitamin no information no name [facility] b-[address] [place] [address] ([id number]) 01-28-2018 Ecg routine ecg no information no name Critical access hospital/[address] w/o i&r [place] (52786) 05-11-2014 Ecg routine ecg no information no name Critical access hospital/[address] w/o i&r [place] (67476) 01-28-2018 EKG, TRACING no information no name [facility] (IN-HOUSE) [facility] (68283) 01-12-2018 Fall risk assessment no information no name [facility] doc d [facility] ([id number]) 01-12-2018 FQHC visit, IPPE or no information no name [facility] AWV [facility] (35761) 10-19-2014 [facility] influenza no information no name [facility] (56075) 09-05-2014 [place] influenza no information no name Com [facility] (89392) 05-29-2014 Lipid panel no information no name [facility] H ealth [facility] ([id number]) 03-04-2018 Methylprednisolone 80 no information no name [facility] MG inj [facility] ([id number]) 01-31-2018 Methylprednisolone 80 no information no name [facility] inj [facility] ([id number]) 06-01-2018 Methylprednisolone no information no name [facility] injection Center [facility] (72133) 10-19-2014 Noninvasive ear/pulse no information no name [facility] oximetry single deter [facility] (87401) 09-05-2014 Noninvasive ear/pulse no information no name [facility] oximetry single deter [facility] ([id number]) 08-09-2014 Noninvasive ear/pulse no information no [facility] oximetry single deter [facility] (44855) 01-12-2018 Pt tobacco screen rcvd no information no name [facility] Health tlk [facility] (04117) 03-04-2018 Radiologic exam chest no information no name [facility] 2 views [facility] (95741) 11-28-2014 Swallowing funcj no information no name [facility] w/cineradiograpy/vidra [facility] ([id number]) 06-01-2018 Therapeutic no information no name [facility] H ealth prophylactic/dx [facility] injection subq/[facility] ([id number]) 03-04-2018 Therapeutic no information no name [facility] H ealth prophylactic/dx [facility] injection subq/im [place] ([id number]) 01-31-2018 Therapeutic no information no name [facility] H ealth prophylactic/dx [facility] injection subq/[facility] (23903) 08-09-2014 Therapeutic no information no name [facility] H ealth prophylactic/dx [facility] injection subq/[facility] (75011) 06-13-2014 Therapeutic no information no name [facility] H ealth prophylactic/dx [facility] injection subq/im [place] ([id number]) 04-14-2018 Urnls dip stick/tablet no information no name [facility] rgnt auto w/o [facility] (69620) 08-09-2014 Urnls dip stick/tablet no information no name [facility] rgnt auto w/o [facility] (85833) 08-09-2014 Vitamin b12 injection no information no name [facility] ([id number]) 06-13-2014 Vitamin b12 injection no information [facility] (15944[facility] Immunizations Normalized Immunization Date Notes Care Provider Facili ty Immunization DEPO MEDROL 80 MG/ML 03-04-2018 no information GUS ESTRELLA [phone] [facility] ([id number]) DEPO MEDROL 80 MG/ML 01-31-2018 - no information EDWARD CORBIN 32864 [facility] Translations: [ DEPO 01-31-[address] [facility] MEDROL 80 MG/ML] [place] ([id number]) PHENERGAN 50MG/ML 03-24-2019 no information no name [facility] (77042) SOLUMEDROL (UP TO 06-01-2018 no information TOBI GUO 62449 [facility] 125 MG) [facility] (52739) tetanus toxoid, 01-12-2018 - no information EDWARD CORBIN 79466 [facility] reduced diphtheria 01-12-2018 [facility] and [place] (92966) acellular pertussis vaccine, adsorbed Translations: [ TDAP (BOOSTRIX)] SINGLE IMMUNIZATION 01-12-2018 - no information EDWARD CORBIN [phone] [facility] ADMIN Translations: 01-12-2018 [facility] t [ TDAP (BOOSTRIX)] [place] ([id number]) Results Test Name Value Interpretation Reference Range Date Time Fa cility (Normalized) (Normalized) (Medline Reference) ua long dip (in house) on null Glucose Test Negative (no code) [facility] strip mass [facility] Center (U) [facility] (02647) Protein mass Negative (no code) 0 - 20 mg/dL [facility] conc (U) [facility] (35778) UA LONG DIP (IN 01/06 (no code) [facility] HOUSE) [facility] (49289) UA LONG DIP (IN slightly cloudy (no code) [facility] (41498) UA LONG DIP (IN yellow (no code) [facility] (87102) UA LONG DIP (IN no (no code) [facility] (81100) UA LONG DIP (IN [id number] (no code) [facility] (58440) UA LONG DIP (IN 5.0 (no code) [facility] (68213) UA LONG DIP (IN >=1.030 (no code) [facility] (96310) UA LONG DIP (IN 0.2 (no code) [facility] (58812) UA LONG DIP (IN Trace (no code) [facility] HOUSE) [facility] (30065) tsh on null Thyroid 0.88 m[IU]/L (no code) 0.4 - 4 m[IU]/L [facility] stimulating [facility] of hormone (TSH) [facility] (03126) lactate (outside order) on null NEGATED: no information (no code) [facility] Highlighted row Center of Lactate [facility] (44583) cmp on null Alanine no information (no code) [facility] (ALT) [facility] (01102) Albumin no information (no code) [facility] (22398) Albumin/Globulin no information (no code) [facility] Ratio Center of [facility] (43893) Alkaline no information (no code) [facility] phosphatase Center of (ALP) [facility] (53354) Aspartate no information (no code) [facility] aminotransferase Center of (AST) [facility] (36725) BUN/Creatinine no information (no code) [facility] Ratio [facility] (88950) Calcium no information (no code) [facility] (07582) Chloride no information (no code) [facility] (79837) CO2 no information (no code) [facility] (95076) Creatinine no information (no code) [facility] (90372) eGFR (black) no information (no code) [facility] (11513) eGFR (non-black) no information (no code) [facility] (08520) Globulin no information (no code) [facility] Healt h [facility] (85856) Glucose no information (no code) [facility] (30246) Potassium no information (no code) [facility] (32788) Protein no information (no code) [facility] (75873) Urea nitrogen no information (no code) [facility] (64548) Urine, bilirubin no information (no code) [facility] presence [facility] (43582) cbc on null Basophils no information (no code) [facility] (45232) Basophils/100 no information (no code) [facility] leukocytes [facility] (52198) Eosinophils no information (no code) [facility] (43512) Eosinophils/100 no information (no code) [facility] th leukocytes [facility] (77855) Erythrocytes no information (no code) [facility] (RBC) [facility] (43027) Hematocrit (HCT) no information (no code) [facility] (42785) Hemoglobin (HGB) no information (no code) [facility] (78176) Lymphocytes no information (no code) [facility] (46323) Lymphocytes/100 no information (no code) [facility] th leukocytes [facility] (75846) MCH no information (no code) [facility] (17033) MCHC no information (no code) [facility] (23333) MCV no information (no code) [facility] (68422) Monocytes no information (no code) [facility] (20157) Neutrophils no information (no code) [facility] (46910) Neutrophils band no information (no code) [facility] (09394) Nucleated no information (no code) [facility] erythrocytes [facility] (79726) Platelet mean no information (no code) [facility] volume (PMV) [facility] (37974) Platelets no information (no code) [facility] (34006) RDW-CA no information (no code) [facility] (74234) WBC (Leukocytes) no information (no code) [facility] (64945) not yet categorized on 2020-01-17 Exp date Negative (no code) [facility] (74351) Exp date 08/09/2022 (no code) [facility] (77738) Lot # [id number] (no code) [facility] (41946) laboratory on 2019-11-29 Albumin 4.6 g/dL (N) 3.4 - 5.4 g/dL [facility] [Mass/Vol] [facility] (62868) Albumin/Globulin 2.4 {ratio} (N) 1 - 2.5 {ratio} [facility] [Mass ratio] [facility] (01660) ALP [Catalytic 62 U/L (N) 44 - 147 U/L [facility] Health activity/Vol] [facility] (12218) ALT [Catalytic 21 U/L (N) 4 - 40 U/L [facility] ealt activity/Vol] [facility] (26329) AST [Catalytic 18 U/L (N) 10 - 34 U/L [facility] activity/Vol] [facility] (25863) Basophils (Bld) 0.031 10*3/uL (N) 0 - 0.3 10*3/uL [facility] [#/Vol] [facility] (27825) Basophils/100 0.8 % (N) 0.5 - 1 % [facility] WBC (Bld) [facility] (90077) Bilirubin 0.4 mg/dL (N) 0.1 - 1.2 mg/dL [facility] [Mass/Vol] [facility] (14505) Calcium 9.5 mg/dL (N) 8.5 - 10.2 mg/dL [facility] [Mass/Vol] [facility] (87357) Chloride 112 mmol/L (H) 95 - 106 mmol/L [facility] [Moles/Vol] [facility] (24687) Cholesterol 235 mg/dL (H) 180 - 200 mg/dL [facility] [Mass/Vol] [facility] (65670) Cholesterol in 47 mg/dL (L) [facility] HDL [Mass/Vol] [facility] () Cholesterol in 144 mg/dL (H) 0 - 100 mg/dL [facility] LDL [Mass/Vol] [facility] (85769) Cholesterol non 188 mg/dL (H) [facility] HDL [Mass/Vol] [facility] (11780) Cholesterol.tota 5.0 {ratio} (H) [facility] l/Cholesterol in [facility] HDL [Mass ratio] [facility] (67708) CO2 [Moles/Vol] 21 mmol/L (N) 23 - 29 mmol/L [facility] (30626) Creatinine 0.94 mg/dL (N) [facility] Healt h [Mass/Vol] [facility] (48258) Cyclic <16 (N) [facility] Healt h citrullinated [facility] peptide IgG Qn [facility] (18811) Eosinophils 0.148 10*3/uL (N) 0.05 - 0.5 Community [facility]th (Bld) [#/Vol] 10*3/uL [facility] (90563) Eosinophils/100 3.8 % (N) 1 - 4 % [facility] WBC (Bld) [facility] () Erythrocyte 12.5 % (N) 11.6 - 14.6 % [facility] ealth distribution Center [facility] width (RBC) [facility] [Ratio] (35305) GFR/1.73 sq M 82 (N) 90 - 120 Community [facility] alth predicted among mL/min/{1.73_m2} mL/min/{1.73_m2} [facility] [place] MDRD [facility] (S/P/Bld) [Vol (79676) rate/Area] GFR/1.73 sq 71 (N) 90 - 120 [facility] th M.predicted MDRD mL/min/{1.73_m2} mL/min/{1.73_m2} [facility] (S/P/Bld) [Vol [facility] rate/Area] (96863) Globulin (S) 1.9 g/dL (N) 2 - 3.5 g/dL [facility] [Mass/Vol] [facility] (39274) Glucose 93 mg/dL (N) 60 - 125 mg/dL [facility] [Mass/Vol] [facility] (09826) Hematocrit (Bld) 42.3 % (N) 36.1 - 50.3 % [facility] [Volume [facility]] [facility] (63651) Hemoglobin (Bld) 13.6 g/dL (N) 12.1 - 17.2 g/dL [facility] [Mass/Vol] [facility] (78781) Lymphocytes 1.143 10*3/uL (N) 0.9 - 2.9 [facility] (Bld) [#/Vol] 10*3/uL [facility] (20399) Lymphocytes/100 29.3 % (N) 20 - 40 % [facility] WBC (Bld) [facility] (56082) MCH (RBC) 28.4 pg (N) 27 - 31 pg [facility] [Entitic mass] [facility] (25918) MCHC (RBC) 32.2 g/dL (N) 32 - 36 g/dL [facility] [Mass/Vol] [facility] (20172) MCV (RBC) 88.3 fL (N) 80 - 100 fL [facility] Hea lth [Entitic vol] [facility] (86540) Monocytes (Bld) 0.406 10*3/uL (N) 0.3 - 0.9 [facility] [#/Vol] 10*3/uL [facility] (16389) Monocytes/100 10.4 % (N) 2 - 8 % [facility] WBC (Bld) [facility] (04825) Neutrophils 2.172 10*3/uL (N) 1.7 - 7 10*3/uL [facility] (Bld) [#/Vol] [facility] (54844) Neutrophils/100 55.7 % (N) 40 - 60 % [facility] WBC (Bld) [facility] (83707) Platelet mean 12.1 fL (N) 7.2 - 11.7 fL [facility] Health volume (Bld) [facility] [Entitic vol] [facility] (98284) Platelets (Bld) 225 10*3/uL (N) 150 - 450 [facility] [#/Vol] 10*3/uL [facility] (53851) Potassium 4.1 mmol/L (N) 3.7 - 5.2 mmol/L [facility] [Moles/Vol] [facility] (70301) Protein 6.5 g/dL (N) 6.4 - 8.3 g/dL [facility] [Mass/Vol] [facility] (42836) RBC (Bld) 4.79 10*6/uL (N) 4.2 - 6.1 [facility] He lth [#/Vol] 10*6/uL [facility] (78192) Sodium 141 mmol/L (N) 135 - 145 mmol/L [facility] [Moles/Vol] [facility] (05609) Triglyceride 305 mg/dL (H) 0 - 150 mg/dL [facility] [Mass/Vol] [facility] (72733) Urea nitrogen 18 mg/dL (N) 7 - 20 mg/dL [facility] [Mass/Vol] [facility] (96045) Urea NOT APPLICABLE (no code) [facility] Healt h nitrogen/Creatin [facility] [Mass ratio] [facility] (20885) WBC (Bld) 3.9 10*3/uL (N) 3.5 - 10.5 [facility] [#/Vol] 10*3/uL [facility] (30210) not yet categorized on 2019-06-27 Control Negative (no code) [facility] (25261) Exp date 07/05/2021 (no code) [facility] (86324) Lot # [id number] (no code) [facility] (51852) not yet categorized on 2019-06-02 BLO trace (no code) [facility] (52135) KET neg~neg~neg (no code) [facility] Healt [facility] (17199) IDALIA neg~1+ (no code) [facility] (15452) Lot # [id number] (no code) [facility] (12660) SG 1.020 (no code) [facility] (61234) URO 0.2 (no code) [facility] (36688) laboratory on 2019-06-02 Bacteria SEE NOTE (A) [facility] identified Cx [facility] (U) [facility] (77249) Bacteria SEE NOTE (A) [facility] (U) [facility] (32292) Color (U) 07/09~sl (no code) [facility] Healt cloudy~yellow [facility] (72366) pH (Bld) 5.5 [pH] (no code) 7.38 - 7.42 [pH] [facility] (56740) Protein (U) trace (no code) [facility] [Mass/Vol] [facility] (53105) other on 2019-01-10 Cholesterol in 160 (H) [facility] LDL [Mass/Vol] [facility] (23846) Cholesterol non 198 (H) [facility] HDL [Mass/Vol] [facility] (56724) Cholesterol.tota 4.3 (N) [facility] l/Cholesterol in [facility] HDL [Mass ratio] [facility] (16553) GFR/1.73 sq 83 (N) 90 - 120 [facility] M.predicted MDRD mL/min/{1.73_m2} mL/min/{1.73_m2} [facility] (S/P/Bld) [Vol [facility] rate/Area] (94755) metabolic panel on 2019-01-10 Calcium 9.6 mg/dL (N) 8.5 - 10.2 mg/dL [facility] [Mass/Vol] [facility] (13623) Chloride 111 mmol/L (H) 95 - 106 mmol/L [facility] [Moles/Vol] [facility] (66308) CO2 [Moles/Vol] 23 mmol/L (N) 23 - 29 mmol/L [facility] (01451) Creatinine 0.83 mg/dL (N) [facility] h [Mass/Vol] [facility] (02842) GFR/1.73 sq M 96 (N) 90 - 120 [facility] predicted among mL/min/{1.73_m2} mL/min/{1.73_m2} [place] [facility] blacks MDRD [facility] (S/P/Bld) [Vol (65548) rate/Area] Glucose 94 mg/dL (N) 60 - 125 mg/dL [facility] [Mass/Vol] [facility] (64130) Potassium 3.4 mmol/L (L) 3.7 - 5.2 mmol/L [facility] [Moles/Vol] [facility] (38935) Sodium 143 mmol/L (N) 135 - 145 mmol/L [facility] [Moles/Vol] [facility] (16405) Urea nitrogen 16 mg/dL (N) 7 - 20 mg/dL [facility] [Mass/Vol] [facility] (60296) Urea NOT APPLICABLE (no code) [facility] h nitrogen/Creatin [facility] ine [Mass ratio] [facility] (44222) cardiac on 2019-01-10 Cholesterol 258 mg/dL (H) 180 - 200 mg/dL [facility] [Mass/Vol] [facility] (53361) Cholesterol in 60 mg/dL (N) [facility] HDL [Mass/Vol] [facility] (89727) Triglyceride 224 mg/dL (H) 0 - 150 mg/dL [facility] [Mass/Vol] [facility] (99502) urinalysis on 2018-04-14 Urine, protein Negative (no code) 0 - 20 mg/dL [facility] (33330) other on 2018-04-14 BLO 01/06~slightly (no code) [facility] cloudy~yellow~no [facility] ~Negative~Negati [facility] ve~Negative~>=1. (79997) 030~Negative IDALIA Negative (no code) [facility] (56726) Lot # [id number] (no code) [facility] (82484) URO 0.2 (no code) [facility] (71470) hematology on 2018-04-14 pH of blood 5.0 [pH] (no code) 7.38 - 7.42 [pH] [facility] (26043) thyroid on 2018-01-28 Thyrotropin Qn 0.88 m[IU]/L (no code) 0.4 - 4 m[IU]/L [facility] (48216) no panel information on 2017-10-27 NEGATED no information (N) [facility] no [facility] (59421) NEGATED no information (N) [facility] no [facility] (84033) NEGATED no information (N) [facility] no [facility] (83311) NEGATED no information (N) [facility] no [facility] (82551) NEGATED no information (N) [facility] no [facility] (63566) NEGATED no information (N) [facility] no [facility] (24564) NEGATED no information (N) [facility] [place] [facility] [place] (78374) NEGATED no information (N) [facility] no [facility] [place] [facility] [place] (57657) NEGATED no information (N) [facility] no [facility] [place] [facility] [place] (24678) NEGATED no information (no code) [facility] [place] [facility] [place] (25285) NEGATED no information (H) [facility] no [facility] [place] [facility] [place] (05703) NEGATED no information (no code) [facility] no [facility] [place] information [facility] (75089) NEGATED no information (N) [facility] no [facility] [place] information [facility] (12608) NEGATED no information (L) [facility] no [facility] [place] information [facility] (42780) NEGATED no information (N) [facility] no [facility] [place] information [facility] (13213) NEGATED no information (N) [facility] no [facility] [place] information [facility] (52590) NEGATED no information (no code) [facility] no [facility] information [facility] (54086) NEGATED no information (N) [facility] no [facility] [place] information [facility] (01186) NEGATED no information (N) [facility] no [facility] [place] information [facility] (85141) NEGATED no information (N) [facility] no [facility] [place] information [facility] (92123) NEGATED no information (N) [facility] no [facility] [place] information [facility] (13593) NEGATED no information (N) [facility] no [facility] [place] information [facility] (73452) urinalysis on 2017-02-14 Bacteria Note (no code) 02-14-2017 Not Available identified Cx 17:51-0400 (69479) Nom (U) Vital Signs Vital Sign Value Interpretation Reference Date Time Care Prov ider Facility (Normalized) (Normalized) Range BMI (Body Mass 22.59 kg/m2 (no code) 15 - 25 kg/m2 07-30-2018 ULICES MEDRANO YAZ Community Index) 12:00-[id number] [place] [address] (46109) BMI (Body Mass 25.34 kg/m2 (no code) 15 - 25 kg/m2 06-01-2018 HO AARON GUO Community Index) 11:40-0400 63992 [facility] (60729) BMI (Body Mass 27.76 kg/m2 (no code) 15 - 25 kg/m2 04-14-2018 M [facility] Community Index) 14:40-0400 78294 [facility] (10488) BMI (Body Mass 28.16 kg/m2 (no code) 15 - 25 kg/m2 03-22-2018 B ETHANY EMERALD Community Index) 11:20-[address] [place] [address] (23400) BMI (Body Mass 24.21 kg/m2 (no code) 15 - 25 kg/m2 03-19-2018 Olayinka SHELLEYER Community Index) 09:40-[address] [place] [address] (24909) BMI (Body Mass 24.22 kg/m2 (no code) 15 - 25 kg/m2 03-04-2018 M [facility] Community Index) 15:40-[address] [place] [address] (41953) BMI (Body Mass 25.4 kg/m2 (no code) 15 - 25 kg/m2 01-31-2018 [facility] Community Index) 11:40-[address] [place] [address] ([id number]) BMI (Body Mass 23.14 kg/m2 (no code) 15 - 25 kg/m2 01-28-2018 B ETHANY EMERALD Community Index) 11:40-[address] [place] [address] ([id number]) BMI (Body Mass 22.11 kg/m2 (no code) 15 - 25 kg/m2 01-12-2018 B ETHANY EMERALD Community Index) [id number] [address] [place] [address] ([id number]) Body 98.1 [degF] (no code) 97.8 - 99.0 07-30-2018 [facility] Community Temperature [degF] 12:00-[address] [place] [address] ([id number]) Body 98.7 [degF] (no code) 97.8 - 99.0 06-01-2018 TOBI Ochoa Community Temperature [degF] 11:40-0400 [id number] [facility] ([id number]) Body 98 [degF] (no code) 97.8 - 99.0 04-14-2018 [facility] Community Temperature [degF] 14:40-0400 [id number] [facility] ([id number]) Body 98.1 [degF] (no code) 97.8 - 99.0 03-22-2018 [facility] Community Temperature [degF] 11:20-0400 78089 [facility] ([id number]) Body 99.1 [degF] (no code) 97.8 - 99.0 03-19-2018 MIKEY SHELLEY Community Temperature [degF] 09:40-0400 [id number] [facility] ([id number]) Body 98.1 [degF] (no code) 97.8 - 99.0 03-04-2018 [facility] Community Temperature [degF] 15:40-0400 93940 [facility] ([id number]) Body 98.6 [degF] (no code) 97.8 - 99.0 01-31-2018 [facility] Community Temperature [degF] 11:40-0400 49991 [facility] ([id number]) Body 98 [degF] (no code) 97.8 - 99.0 01-28-2018 EDWARD STEPHANIE H Community Temperature [degF] 11:40-0400 [id number] [facility] ([id number]) Body 98 [degF] (no code) 97.8 - 99.0 01-12-2018 EDWARD STEPHANIE Community Temperature [degF] 11:00-0400 64473 [facility] ([id number]) Body 98.3 [degF] (no code) 97.8 - 99.0 11-28-2014 [facility] Community Temperature [degF] 11:36-0400 [id number] [facility] ([id number]) Body 97.8 [degF] (no code) 97.8 - 99.0 10-19-2014 [facility] Temperature [degF] 12:54-[address] [place] [address] nter [facility] ([id number]) Body 97.6 [degF] (no code) 97.8 - 99.0 10-02-2014 [facility] Temperature [degF] 11:24-[address] [place], [place] [address]e r [facility] ([id number]) Body 98.5 [degF] (no code) 97.8 - 99.0 09-05-2014 [facility] Temperature [degF] 13:05-[address] [place] [address] nter [facility] ([id number]) Body 97.5 [degF] (no code) 97.8 - 99.0 08-09-2014 [facility] Temperature [degF] 08:09-[address] [place], [place] [address]e [facility] ([id number]) Body 97.4 [degF] (no code) 97.8 - 99.0 06-13-2014 [facility] Temperature [degF] 08:49-[address] [place], [place] [address]e [facility] ([id number]) Body 97.7 [degF] (no code) 97.8 - 99.0 05-11-2014 [facility] Temperature [degF] 14:49-[address] [place] [address] ([id number]) Body weight 70.18 kg (no code) kg 11-28-2014 [facility] 11:36-[address] [place] [address] ([id number]) Body weight 68.55 kg (no code) kg 10-19-2014 JAMES Com munity 12:54-[address] [place] [address] ([id number]) Body weight 68.68 kg (no code) kg 10-02-2014 [facility] 11:24-[address] [place] [address] ([id number]) Body weight 66.36 kg (no code) kg 09-05-2014 JAMES [facility] 13:05-[address] [place] [address] ([id number]) Body weight 67.13 kg (no code) kg 08-09-2014 [facility] 08:090500 94211 [facility] ([id number]) Body weight 68.4 kg (no code) kg 06-13-2014 [facility] 08:49-0400 [id number] [facility] ([id number]) Body weight 66.23 kg (no code) kg 05-11-2014 [facility] 14:49-0400 29567 [facility] ([id number]) Height 167.64 cm (no code) cm 07-30-2018 BRISA Comm [place] 12:[address] [place] [address] ([id number]) Height 167.64 cm (no code) cm 06-01-2018 TOBI GUO [facility] 11:40-[id number] [place] [address] ([id number]) Height 167.64 cm (no code) cm 04-14-2018 [facility] 14:40-[id number] [place] [address] ([id number]) Height 167.64 cm (no code) cm 03-22-2018 [facility] 11:20-[id number] [place] [address] ([id number]) Height 167.64 cm (no code) cm 03-19-2018 MIKEY Pineda ommunity 09:40-0400 [id number] [facility] ([id number]) Height 167.64 cm (no code) cm 03-04-2018 [facility] 15:40-0400 [id number] [facility] ([id number]) Height 167.64 cm (no code) cm 01-31-2018 [facility] 11:40-0400 99647 [facility] ([id number]) Height 167.64 cm (no code) cm 01-28-2018 [facility] 11:40-[id number] [place] [address] ([id number]) Height 167.64 cm (no code) cm 01-12-2018 [facility] 11:00-[id number] [place] [address] ([id number]) Height 167.64 cm (no code) cm 11-28-2014 [facility] 11:36-[address] [place] [address] ([id number]) Height 167.64 cm (no code) cm 10-19-2014 JAMES Commu nity 12:54-[address] [place] [address] ([id number]) Height 167.64 cm (no code) cm 10-02-2014 [facility] 11:24-[address] [place] [address] ([id number]) Height 167.64 cm (no code) cm 09-05-2014 JAMES Commu nity 13:05-[address] [place] [address] ([id number]) Height 167.64 cm (no code) cm 08-09-2014 [facility] 08:09-[address] [place] [address] ([id number]) Pulse Oximetry 83 % (no code) 95 - 100 % 06-01-2018 TOBI ALVERTO QUEEN [facility] 11:40-[id number] [place] [address] ([id number]) Pulse Oximetry 94 % (no code) 95 - 100 % 03-22-2018 [facility] 11:20-[address] [place] [address] ([id number]) Pulse Oximetry 90 % (no code) 95 - 100 % 03-04-2018 GUS [facility] 15:40-[id number] [place] [address] ([id number]) Pulse Oximetry 92 % (no code) 95 - 100 % 01-31-2018 [facility] 11:40-[address] [place] [address] ([id number]) Pulse Oximetry 94 % (no code) 95 - 100 % 01-28-2018 [facility] 11:40-[address] [place] [address] ([id number]) Weight 63.5 kg (no code) kg 07-30-2018 BRISA Commu nity 12:00-[address] [place] [address] ([id number]) Weight 71.22 kg (no code) kg 06-01-2018 TOBI GUO Com munity 11:400400 [id number] [facility] ([id number]) Weight 78.02 kg (no code) kg 04-14-2018 GUS ESTRELLA C ommunity 14:400400 78293 [facility] ([id number]) Weight 79.15 kg (no code) kg 03-22-2018 EDWARD GRIEROCH C ommunity 11:200400 [id number] [facility] ([id number]) Weight 68.04 kg (no code) kg 03-19-2018 MIKEY SMALL Co mmunity 09:400400 09858 [facility] ([id number]) Weight 68.09 kg (no code) kg 03-04-2018 GUS ESTRELLA C ommunity 15:400400 53160 [facility] ([id number]) Weight 71.4 kg (no code) kg 01-31-2018 EDWARD GRIEROCH C ommunity 11:400400 76380 [facility] ([id number]) Weight 65.05 kg (no code) kg 01-28-2018 EDWARD EMERALD C ommunity 11:400400 61827 [facility] ([id number]) Weight 62.14 kg (no code) kg 01-12-2018 EDWARD EMERALD C ommunity 11:000400 [id number] [place] [address] ([id number]) Interventions No Information Plan of Treatment The data below is from unstructured sources Discharge Date 09/14/16 2:34pm Disposition 01 HOME, SELF-CARE Instructions/Education Provided Acut e Bronchitis, Adult (DC) Prescriptions See Medication Section Referrals (Unspecified) - Today Reason(s) for Referral: Hypoxia Care Plan and Goals See Discharge In structions Section Discharge Date 09/24/16 2:24pm Disposition 01 HOME, SELF-CARE Instructions/Education Provided Oxyg en Therapy, Adult (DC) Prescriptions See Medication Section Referrals (Unspecified) - 1 Year Reason(s) for Referral: Hypoxia Pneumonia ANGELICA HARLEY DO (Unspecified) - 10/22/16 Address: [address] [place] [address] [place] [id number] Reason(s) for Referral: APPT AT 10AM Care Plan and Goals See Discharge In structions Section Activity Details Follow Up prn, 3 months for chronic pain Reason: Activity Details Follow Up Wednesday Reason:Hypoxia Discharge Date 07/17/17 11:31am Disposition 01 HOME, SELF-CARE Condition at Discharge Stable Instructions/Education Provided NO I NSTRUCTIONS GIVEN Prescriptions See Medication Section Referrals EDWARD CORBIN MD Order Date: Primary Care Physician Address: [address] [place] [id number] Additional Instructions/Education 1. Pain medication as directed 2. Return to ER for any concerns 3. See your doctor next week Activity Details Follow Up As scheduled Reason: Activity Details Follow Up 1 Week Reason:Fever/cough Activity Details Follow Up prn Reason: Activity Details Follow Up 3 Months Reason:Chronic pa in Activity Details Follow Up prn after Pulm Reason: Activity Details Follow Up 2 - 3 Days Reason: Activity Details Follow Up 2 - 3 Days Reason:cough Activity Details Follow Up w/ PCP pending X-ray resul ts Reason:right ankle injury Activity Details Follow Up after Pulmonology visit Re ason: Activity Details Follow Up tomorrow with Gault Reason : Prescriptions See Medication Section Goals No Information Social History No Information Functional Status The data below is from unstructured sources Query Response Date Rayray rded Patient Orientation Person Place Time Situation Normal For Age September 14, 2016 2:35pm Comprehension Ability Understands Co ncepts September 14, 2016 9:00am Query Response Date Rayray rded Patient Orientation Person Place Time Situation Eyes Open September 24, 2016 3:09pm Comprehension Ability Understands Co ncepts September 23, 2016 9:00pm Mental Status No Information Encounters Encounter Normalized Encounter Encounter Diagnosis Care Provi destiny Organization Date Type 04-14-2018 (ACUTE) Acute Visit Sprain of tibiofibular GUS ESTRELLA (no [facility] - ligament of right phone) GUS Ramos (no phone) 04-14-2018 ankle, subsequent (no phone) GUS - june Ramos (no phone) 04-14-2018 03-24-2019 (SD) Same Day Dizziness and SONNY FULLER (no [facility] - giddiness phone) (no phone) 03-24-2019 - 03-24-2019 01-17-2020 [facility] Chronic obstructive ANABEL OLVIN OT ([facility] C[facility] pulmonary disease with phone) CARE (n o phone) (acute) exacerbation 09-15-2019 [facility] Chronic obstructive JAMEEL OCAMPO (no [facility] pulmonary disease with phone) CARE (n o phone) (acute) exacerbation 11-29-2019 [facility] Other rheumatoid EDWARD STEPHANIE H (no [facility] arthritis with phone) (no phone) rheumatoid factor of multiple sites 08-07-2019 [facility] Shortness of breath BANNER (no [facility] phone) (no phone) 06-27-2019 [facility] Acute laryngitis EDWARD STEPHANIE H (no [facility] phone) (no phone) 06-02-2019 [facility] Shortness of breath BANNER (no [facility] - phone) (no phone) 06-02-2019 - 06-02-2019 04-11-2019 [facility] Other rheumatoid EDWARD STEPHANIE H (no [facility] - arthritis with phone) (no phone) 04-11-2019 rheumatoid factor of - multiple sites 04-11-2019 04-14-2018 [facility] no information EDWARD EMERALD (no [facility] - phone) (no phone) 04-14-2018 - 04-14-2018 04-11-2018 [facility] Chronic pain syndrome EDWARD EMERALD (no [facility] - phone) (no phone) 04-11-2018 - 04-11-2018 03-31-2018 [facility] no information EDWARD EMERALD (no [facility] - phone) (no phone) 03-31-2018 - 03-31-2018 02-06-2019 Discharged Recurring no information EDWARD N EMERALD Work no organization name - 05-08-2019 02-15-2014 Emergency department no information no name no organization name - patient visit 02-15-2014 04-11-2011 Emergency department no information no name no organization name - patient visit 04-11-2011 05-26-2018 Patient encounter no information no name no or ganization name 05-04-2018 Patient encounter no information no name no or ganization name 05-02-2018 Patient encounter no information no name no or ganization name 04-14-2018 Patient encounter no information no name no or ganization name 03-22-2018 Patient encounter no information no name no or ganization name 03-19-2018 Patient encounter no information no name no or ganization name 03-19-2018 Patient encounter no information no name no or ganization name 02-03-2018 Patient encounter no information no name no or ganization name 01-28-2018 Patient encounter no information no name no or ganization name 01-28-2018 Patient encounter no information no name no or ganization name 01-12-2018 Patient encounter no information no name no or ganization name NEGATED Patient encounter no information no name no or ganization name 10-27-2017 05-27-2017 Patient encounter no information no name no or ganization name 02-11-2017 Patient encounter no information no name no or ganization name 01-20-2017 Patient encounter no information no name no or ganization name - 01-20-2017 01-19-2017 Patient encounter no information no name no or ganization name 11-11-2016 Patient encounter no information no name no or ganization name 10-08-2016 Patient encounter no information no name no or ganization name 02-04-2016 Patient encounter no information no name no or ganization name 01-03-2016 Patient encounter no information no name no or ganization name 10-02-2015 Patient encounter no information no name no or ganization name 08-19-2015 Patient encounter no information no name no or ganization name 03-21-2015 Patient encounter no information no name no or ganization name 12-07-2014 Patient encounter no information no name no or ganization name 06-27-2014 Patient encounter no information no name no or ganization name 01-17-2020 Patient encounter no information EDWARD CORBIN (n o [facility] procedure phone) (no phone) ([facility] phone) [place] (no phone) 11-29-2019 Patient encounter no information (no phone) [facility] procedure [facility] (no phone) 09-15-2019 Patient encounter no information no name no or ganization name procedure 08-07-2019 Patient encounter Major depressive LOU 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 [facility] - procedure disorder, recurrent phone) (no ph one) 08-07-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 06-27-2019 Patient encounter no information no name no or ganization name procedure 06-27-2019 Patient encounter no information no name no or ganization name procedure 06-02-2019 Patient encounter no information no name no or ganization name procedure 05-08-2019 Patient encounter no information no name no or ganization name procedure 04-11-2019 Patient encounter no information no name no or ganization name procedure 03-30-2019 Patient encounter no information no name no or ganization name procedure 03-24-2019 Patient encounter no information no name no or ganization name procedure 03-22-2019 Patient encounter no information no name no or ganization name procedure 03-09-2019 Patient encounter no information no name no or ganization name procedure 03-09-2019 Patient encounter no information no name no or ganization name procedure 02-28-2019 Patient encounter no information no name no or ganization name - procedure 05-07-2019 02-21-2019 Patient encounter no information no name no or ganization name procedure 02-16-2019 Patient encounter no information no name no or ganization name procedure 02-14-2019 Patient encounter no information no name no or ganization name procedure 02-06-2019 Patient encounter no information no name no or ganization name procedure 02-06-2019 Patient encounter no information no name no or ganization name procedure 01-10-2019 Patient encounter no information no name no or ganization name procedure 10-31-2018 Patient encounter no information no name no or ganization name procedure 10-04-2018 Patient encounter no information no name no or ganization name procedure 09-16-2018 Patient encounter no information no name no or ganization name procedure 09-22-2016 Patient encounter no information no name no or ganization name - procedure 09-24-2016 06-23-2011 Patient encounter no information no name no or ganization name procedure 01-12-2018 [facility], initial visit no information no name no organization name 01-16-2020 Telephone encounter no information EDWARD CORBIN (n o [facility] phone) (no phone) 12-28-2019 Telephone encounter Other rheumatoid EDWARD EMERALD (no [facility] arthritis with phone) (no phone) rheumatoid factor of multiple sites 12-27-2019 Telephone encounter no information EDWARD EMERALD (n o [facility] phone) (no phone) 11-27-2019 Telephone encounter Other rheumatoid EDWARD EMERALD (no [facility] arthritis with phone) (no phone) rheumatoid factor of multiple sites 10-30-2019 Telephone encounter Other rheumatoid CLEMENTE MANDELSUZE GH [facility] arthritis with phone) (no phone) rheumatoid factor of multiple sites 10-02-2019 Telephone encounter Other rheumatoid EDWARD EMERALD [facility] arthritis with phone) (no phone) rheumatoid factor of multiple sites 09-18-2019 Telephone encounter no information EDWARD EMERALD (n o [facility] phone) (no phone) 09-04-2019 Telephone encounter Other rheumatoid EDWARD EMERALD (no [facility] arthritis with phone) (no phone) rheumatoid factor of multiple sites 08-07-2019 Telephone encounter Essential (primary) EDWARD NATALIE CH (no [facility] hypertension phone) (no phone) 08-03-2019 Telephone encounter Gastro-esophageal CLEMENTE LEONIE UGH (no [facility] reflux disease without phone) (no phone) esophagitis 07-07-2019 Telephone encounter Other rheumatoid EDWARD EMERALD (no [facility] arthritis with phone) SONNY (no phone) rheumatoid factor of [place] (no phone) multiple sites 07-05-2019 Telephone encounter Other rheumatoid EDWARD EMERALD (no [facility] arthritis with phone) (no phone) rheumatoid factor of multiple sites 06-06-2019 Telephone encounter Other rheumatoid EDWARD EMERALD (no [facility] - arthritis with phone) (no phone) 06-06-2019 rheumatoid factor of - multiple sites 06-06-2019 06-05-2019 Telephone encounter Shortness of breath CLEMENTE RUCKER (no [facility] - phone) (no phone) 06-05-2019 - 06-05-2019 06-02-2019 Telephone encounter Shortness of breath EDWARD NATALIE CH [facility] (no phone) 06-02-2019 - 06-02-2019 05-09-2019 Telephone encounter Other rheumatoid EDWARD CORBIN (no [facility] - arthritis with phone) (no phone) 05-09-2019 rheumatoid factor of - multiple sites 05-09-2019 04-10-2019 Telephone encounter no information EDWARD CORBIN (n o [facility] - phone) (no phone) 04-10-2019 - 04-10-2019 03-08-2019 Telephone encounter Chronic pain syndrome EDWARD E NOCH (no [facility] - phone) (no phone) 03-08-2019 - 03-08-2019 02-07-2019 Telephone encounter Chronic pain syndrome EDWARD E NOCH (no [facility] - phone) (no phone) 02-07-2019 - 02-07-2019 10-02-2014 VISIT no information no name no organ ization name no information Encounter for general no name no organ ization name adult medical examination without abnormal findings no information Encounter for dental no name no organi zation name examination and cleaning without abnormal findings no information Encounter for other no name no organiz ation name preprocedural examination Medical Equipment No Information Payers Normalized Payer Value Unknown [id number]) History general Narrative - Reported Note Type Note Facility History general Narrative - Reported Type Medical hypertension History Medical osteoporosis History Medical rheumatoid arthritis History Medical Heart infection History Medical Rheumatic or Scarlet Fever History Medical Pneumonia History Medical Bronchitis History Medical Prednisone History Medical Bilateral Pneumonia. 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 History Surgical Teeth extraction 10/2015 History Hospitaliz Hospitalization for surgery only ation History Hospitaliz Acute Bronchitis 08/2016 ation History Hospitaliz ACute Respiratory Distress with hypoxia -[facility] 09/22/16 ation History [facility] ([id number]) Summary Purpose eClinicalWorks SubmissioneClinicalWorks SubmissioneClinicalWorks SubmissioneClinicalWorks SubmissioneClinicalWorks SubmissioneClinicalWorks SubmissioneClinicalWorks SubmissioneClinicalWorks SubmissioneClinicalWorks SubmissioneClinicalWorks SubmissioneClinicalWorks SubmissioneClinicalWorks SubmissioneClinicalWorks SubmissioneClinicalWorks SubmissioneClinicalWorks SubmissioneClinicalWorks SubmissioneClinicalWorks SubmissioneClinicalWorks SubmissioneClinicalWorks SubmissioneClinicalWorks SubmissioneClinicalWorks Submission Advance Directives Directive Response Recor ded Date/Time Advance Directives No 12:53pm Organ Donor No 09/13/16 12:14pm Resuscitation Status Full Code 09/13/16 12:53pm Directive Response Recor ded Date/Time Advance Directives No 2:28pm Health Care Power of Manager Stars No 09/22/16 2:28pm Organ Donor No 09/22/16 2:28pm Resuscitation Status Full Code 09/22/16 2:28pm Directive Response Recor ded Date/Time Advance Directives No 10:37am Health Care Power of Manager Stars No 07/17/17 10:37am Organ Donor No 07/17/17 10:37am Resuscitation Status Full Code 07/17/17 10:37am Directive Response Recor ded Date/Time Advance Directives No 10:37am Health Care Power of Manager Stars No 07/17/17 10:37am Organ Donor No 07/17/17 10:37am Discharge Instructions Patient Instructions Physician Instructions New, Converted or Re-Newed RX: Transmitted to Pharmacy Goal/Follow Up Appt: Dr Corbin on 09/15 Patient Instructions: 1. Please stop amoxil and bring it to clinic tomorrow. We can dispose of it at the clinic. 2. Please take both antibiotics this week. They are safe to take together. 3. Please restart your prednisone dose prescribed by Catrachtio tomorrow morning. You have had enough steroids throuhg your IV today. 4. Please wear your home oxygen until Dr Corbin tells you it is safe to stop. [facility] to [facility] For: increased shortness of breath, palpitations Discharge Diet: No Restrictions Activity as Tolerated: Yes Care Plan Patient Instructions:: 1. Please stop amoxil and bring it to clinic tomorrow. We can dispose ofit at the clinic.2. Please take both antibiotics this week. They are safe to take together.3. Please restart your prednisone dose prescribed by Catrcahito tomorrowmorning. You have had enough steroids throuhg your IV today.4. Please wear your home oxygen until Dr Corbin tells you it is safe tostop. Goal:: Dr Corbin on 09/15 Patient Instructions Physician Instructions New, Converted or Re-Newed RX: Transmitted to Pharmacy Goal/Follow Up Appt: You have a followup appt with Dr Corbin on Oct 01 @ 1220 PM at [facility] Discuss Rheum Referral to [facility] given your Airam Status Will need appt with Dr Harley for Pulmonary Evaluation Patient Instructions: We have sent a script for your oxygen, it is important that you wear it when you are active Return to [facility] For: Worsening Shortness of breath Chest pain Unable to take medications Discharge Diet: No Restrictions Activity as Tolerated: Yes Care Plan Patient Instructions:: We have sent a script for your oxygen, it is important that you wear itwhen you are active Goal:: You have a followup appt with Dr Corbin on Oct 01 @ 1220 [facility] [facility] given your Airam Status Will need appt with Dr Harley for Pulmonary Evaluation No hospital discharge instruction information available.No hospital discharge instruction information available. Additional Source Comments This clinical document has been generated using [employer] software that has been certified by the Office of the National Coordinator for Health Information Technology (ONC 15.99.04.3023.Diam.[id number]) and the National Committee for Africana Studies Professor (NCQA, as an eMeasure certified technology). FOR RECORDS PERTAINING TO PATIENTS WHO ARE OR HAVE BEEN ENROLLED IN A CHEMICAL D EPENDENCY/SUBSTANCE ABUSE PROGRAM, SOME INFORMATION MAY BE OMITTED. This clinica l summary was aggregated from multiple sources. Caution should be exercised in using it in the provision of clinical care. This summary normalizes information from multiple sources, and as a consequence, information in this document may ma terially change the coding, format and clinical context of patient data. In cornelio tion, data may be omitted in some cases. CLINICAL DECISIONS SHOULD BE BASED ON T HE PRIMARY CLINICAL RECORDS. [employer] provides no warranty or guara ntee of the accuracy or completeness of information in this document.The followi ng information is based on time limited clinical information UNRECOGNIZED CONTENT PROVIDED BELOW FOR UNRECOGNIZED SECTION MEDICAL (GENERAL) HISTORY Type Description Date Medical History hypertension Medical History osteoporosis Medical History rheumatoid arthritis Medical History Heart infection Medical History Rheumatic or Scarlet Fever Medical History Pneumonia Medical History Bronchitis Medical History Prednisone Surgical History hysterectomy 2001 Surgical History arthroscopic knee s urgery-left knee Surgical History section x 2 Surgical History otolaryngologic erick nelly-right ear surgery due to [place] disease Surgical History Teeth extraction 10/2015 Hospitalization History Hospitalizat ion for surgery only Hospitalization History Acute Bronchitis 08/2016 Hospitalization History ACute Respir atory Distress with hypoxia-[facility] 09/22/16 Type Description Date Medical History hypertension Medical History osteoporosis Medical History rheumatoid arthritis Medical History Heart infection Medical History Rheumatic or Scarlet Fever Medical History Pneumonia Medical History Bronchitis Medical History Prednisone Medical History Bilateral Pneumonia. Surgical History hysterectomy 2001 Surgical History arthroscopic knee s urgery-left knee Surgical History section x 2 Surgical History otolaryngologic erick nelly-right ear surgery due to [place] disease Surgical History Teeth extraction 10/2015 Hospitalization History Hospitalizat ion for surgery only Hospitalization History Acute Bronchitis 08/2016 Hospitalization History ACute Respir atory Distress with hypoxia-[facility] 09/22/16 UNRECOGNIZED CONTENT PROVIDED BELOW FOR UNRECOGNIZED SECTION REASON FOR VISIT Right ankle pain- fell yesterday JStrasserRNBP Reduction Challenge EnrollCough, Congestion-awoods, fell on and [facility] and is here to f/u-awoodsControlled Medication Refillback pain x 1 week -- terry maTriag eControlled Medication RefillCold symptoms, fever , cough , shortness of breath x 2 week -- terry, maRequests return callOxygenControlled Medication RefillRe fill requestcough, congestion, headache for the past 5 days. kbullardrnControlle d Med [id number] Medication Refill
--- OUTSIDE RECORDS SUMMARY | 2020-02-27 15:37 | XMS REPORT | Clinical Summary ---
Author Author [facility] Organization [facility] Address Unknown Phone Unavailable Care Team Providers Care Taxonomist Name Role Phone Art Ribeiro MD Unavailable Unavailable Karen Melgar MD PCP Raudel Cordova MD Unavailable Herbie Estrella OD Unavailable Carolyn Madison LPN Unavailable Unavailable Chico Magana MD Unavailable Patsy Marcum MD Unavailable Unavailable Source Comments Some departments are not documenting in the electronic medical record. If you d o not see the information that you expected, contact Release of Information in [facility] Information Management department at [phone] for further assistan ce in locating additional records.[facility] Allergies Comments Active Allergy Reactions Severity Noted Date Ciprofloxacin ANAPHYLAXIS, High 12/12/2015 HIVES Codeine HIVES, Medium 12/12/2015 ITCHING Iodine ANAPHYLAXIS High 12/12/2015 Abatacept ANAPHYLAXIS, High 12/12/2015 HIVES, ITCHING Medications End Date Status Medication Sig Dispensed Refills Start Date Active nebivolol (BYSTOLIC) 10 Take 10 mg by 0 mg tablet mouth twice daily. Active Problems Problem Noted Date Polyarthralgia 12/12/2015 Pain in both hands 12/12/2015 Low back pain with sciatica 12/12/2015 Cervical radiculopathy 12/12/2015 Lumbar radiculopathy 12/12/2015 Gastric ulcer 12/12/2015 Headache 12/12/2015 H/O Meniere's disease 12/12/2015 Fibromyalgia 12/12/2015 Social History Date Tobacco Use Types Packs/Day Years Used Never Smoker Smokeless Tobacco: Never Used Drinks/Week oz/Week Comments Alcohol Use 0 Standard drinks or equivalent 0.0 No Sex Assigned at Date Recorded Not on file Industry Job Start Date Occupation Not on file Not on file Not on file Travel End Travel History Travel Start No recent travel history available. Last Filed Vital Signs Reading Time Taken Comments Vital Sign 128/88 12/12/2015 9:34 AM CDT Blood Pressure 92 12/12/2015 8:25 AM CDT Pulse 36.7 C (98 F) 12/12/2015 8:25 AM CDT Temperature - - Respiratory Rate - - Oxygen Saturation - - Inhaled Oxygen Concentration 66.2 kg (146 lb) 12/12/2015 8:25 AM CDT Weight 165.1 cm (5' 5") 12/12/2015 8:25 AM CDT Height 24.3 12/12/2015 8:25 AM CDT Body Mass Index Plan of Treatment Health Maintenance Due Date Last Done Comments MEDICARE ANNUAL WELLNESS 1969 VISIT HIV SCREENING 1984 DTAP/TDAP VACCINES (1 - 1987 Tdap) PHYSICAL (COMPREHENSIVE) 1987 EXAM CERVICAL CANCER SCREENING 1990 BREAST CANCER SCREENING 2009 COLORECTAL CANCER 2019 SCREENING SHINGLES RECOMBINANT 2019 VACCINE (1 of 2) INFLUENZA VACCINE 06/20/2020 HEPATITIS C SCREENING Completed 12/12/2015 Results Not on filefrom Last 3 Months Insurance Type Payer Benefit Subscriber ID Effective Phone Address Plan / Dates Group Medicare MEDICARE MEDICARE xxxxxxxxxx 2008- PART A AND Present B [id number] Advance Directives Patient Cma Or Lpn Explanation Type Date Recorded Advance 12/12/2015 10:30 AM Directive/DPOA
--- OUTSIDE RECORDS SUMMARY | 2020-02-27 15:38 | XMS REPORT ---
Author Author Beba CORBIN [facility] Address [address] [place] [address] Care Team Providers Care Senior Quality Control Technician Name Role Phone EMERALD EDWARD Unavailable PROBLEMS Type Condition ICD9-CM Code CQW11-UV Code Onset Dates Condition S tatus SNOMED Code Problem Rheumatoid arthritis 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.89 Active 442600446 Problem Vitamin D deficiency E55.9 Active 95609541 Problem Chronic prescription opiate use Z79.899 Active 503924634 Problem Atrophy of left kidney N26.1 Active 840388954 Problem Colon wall thickening K63.9 Active 479560060 Problem Bladder wall thickening N32.89 Active 858290371 Problem Gastroesophageal reflux disease, esophagitis pre sence not specified K21.9 Active 048875639 Problem Pernicious anemia D51.0 Active 84 393265 Problem Osteoporosis M81.0 Active 5128183 6 Problem Hyperlipidemia, unspecified hyperlipidemia E78.5 Active 30938554 Problem Asthma exacerbation J45.901 Active 546066772 Problem Severe episode of recurrent major depressive disorder, without psychotic features F33.2 Active 78349842 Problem Generalized anxiety disorder F41.1 A ctive 13508723 Problem Chronic respiratory failure with hypoxia J96.11 Active 162045563 Problem Chronic pain syndrome G89.4 Active 024599392 Problem Chronic constipation K59.00 Active 517675208 Problem COPD exacerbation J44.1 Active 19 4730472 Problem Moderate persistent asthma with acute exacerbation J45.41 Active 860888472673902 Problem Chronic kidney disease, stage 1 N18.1 Active 031674700 Problem Essential hypertension I10 Active 15956787 Problem Moderate persistent asthma without complication J4 5.40 Active 505302363 Problem Lumbago with sciatica, left side M54.42 Active 750935046 Problem Lumbago with sciatica, right side M54.41 Active 772011682643726 Problem Dependence on supplemental oxygen Z99.81 Active [id number] ALLERGIES No Information ENCOUNTERS Encounter Location Date Diagnosis [facility] [place] [address] [place] [id number] 09 Dec, 2019 Rheumatoid arthritis 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.89 [facility] [place] [address] [facility] [id number] [address] [place] [address] Dec, [facility] [place] [address] [place] [id number] [address] [place] [address] Nov, Rheumatoid arthritis 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.89 ; Acute pain of right knee M25.561 ; Fever, unspecified fever cause R50.9 ; Essential hypertension I10 ; Hyperlipidemia, unspecified hyperlipidemia E78.5 and Cough R05 [facility] [place] [address] [place] [id number] [address] [place] [address] Nov, Rheumatoid arthritis 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.89 [place] [address] [place] [id number] [address] [place] [address] Oct, Rheumatoid arthritis 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.89 [facility] [place] [address] [place] [id number] [address] [place] [address] Sep, Rheumatoid arthritis 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.89 [facility] [place] [address] [place] [id number] [address] [place] [address] Aug, [facility] [address] [facility] [id number] [address] [place] [address] Aug, COPD exacerbation J44.1 and Right otitis media with effusion H65.91 [facility] [place] [address] [place] [id number] [address] [place] [phone] Aug, Rheumatoid arthritis 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.89 [facility] [place] [address] [place] [id number] [address] [place] [phone] Aug, [facility] [place] [address] [place] [id number] [place] [address] Aug, Rheumatoid arthritis 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.89 [place] [id number] [facility] [id number] [address] [place] [address] Jul, Essential hypertension I10 [facility] [place] [address] [place] [id number] [address] [place] [address] Jul, Severe episode of recurrent major depressive disorder, without psychotic features F33.2 [place] [address] [place] [id number] [address] [place] [address] Jul, Shortness of breath at rest R06.02 ; Cough R05 ; Rheumatoid arthritis involving multiple sites with positive rheumatoid factor M05.89 ; Chronic respiratory failure with hypoxia J96.11 ; Severe episode of recurrent major depressive disorder, without psychotic features F33.2 and Chronic pain syndrome G89.4 [place] [address] [place] [id number] [address] [place] [address] Jul, Gastroesophageal reflux dise ase, esophagitis presence not specified K21.9 ; Shortness of breath at rest R06.02 and Rheumatoid arthritis involving multiple sites with positive rheumatoid factor M05.89 [place] [address] [place] [id number] [address] [place] [address] Jun, [place] [address] [facility] [id number] [address] [place] [address] Jun, Rheumatoid arthritis 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.89 [place] [address] [facility] [id number] [address] [place] [address] Jun, Rheumatoid arthritis 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.89 [place] [address] [facility] [id number] [address] [place] [address] Jun, Laryngitis J04.0 ; Cough R05 ; Acute non-recurrent maxillary sinusitis J01.00 ; Severe episode of recurrent major depressive disorder, without psychotic features F33.2 and Chronic respiratory failure with hypoxia J96.11 [place] [address] [facility] [id number] [address] [place], [place] [id number] 17 May, 2019 Rheumatoid arthritis 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.89 [facility] [place] [address] [facility] [id number] [address] [place] [address] 16 May, 2019 Shortness of breath R06.02 [facility] [place] [address] [facility] [id number] [address] [place] [address] 13 May, 2019 Shortness of breath R06.02 [facility] [place] [address] [facility] [id number] [address] [place] [address] 13 May, 2019 Shortness of breath at rest R06.02 ; Tachypnea on examination R06.82 ; Cough, persistent R05 and Dysuria R30.0 [facility] [place] [address] [place] [id number] [address] [place] [address] Apr, Rheumatoid arthritis 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.89 [facility] [place] [address] [place] [id number] [address] [place] [address] Apr, [facility] [place] [address] [place] [id number] [address] [place] [address] Apr, [facility] [place] [address] [place] [id number] [address] [place] [address] Mar, Rheumatoid arthritis 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.89 and Chronic constipation K59.00 [facility] [place] [address] [facility] [id number] [address] [place] [address] Mar, [facility] [place] [address] [facility] [id number] [address] [place] [address] Mar, Dizziness R42 and Nausea and vomiting, intractability of vomiting not specified, unspecified vomiting type R11.2 [facility] [place] [address] [facility] [id number] [address] [place] [address] Feb, Chronic pain syndrome G89.4 [place] [id number] [place] [address] January, Chronic pain syndrome G89.4 [facility] [place] [address] [facility] [id number] [address] [place] [address] Dec, [facility] [place] [address] [facility] [id number] [address] [place] [address] Dec, [facility] [place] [address] [place] [id number] [address] [place] [address] Dec, Asthma exacerbation J45.901 ; Essential hypertension I10 ; Hyperlipidemia, unspecified hyperlipidemia E78.5 ; Rheumatoid arthritis involving multiple sites with positive rheumatoid factor M05.89 ; Chronic pain syndrome G89.4 ; Chronic kidney disease, stage 1 N18.1 ; Chronic respiratory failure with hypoxia J96.11 and Dependence on supplemental oxygen Z99.81 [facility] [place] [address] [place] [id number] [address] [place] [address] Dec, Chronic pain syndrome G89.4 [facility] [place] [address] [place] [id number] [address] [place] [address] Nov, Chronic pain syndrome G89.4 [facility] [place] [address] [place] [id number] [address] [place] [address] Nov, [facility] [place] [address] [place] [id number] [address] [place] [address] Oct, Chronic pain syndrome G89.4 [facility] [place] [address] [place] [id number] [address] [place] [phone] Oct, [facility] [place] [address] [place] [id number] [address] [place] [address] Oct, Viral upper respiratory trac t infection J06.9 ; Chronic constipation K59.00 ; Severe episode of recurrent major depressive disorder, without psychotic features F33.2 ; Moderate persistent asthma with acute exacerbation J45.41 ; Essential hypertension I10 ; Gastroesophageal reflux disease, esophagitis presence not specified K21.9 and Hyperlipidemia, unspecified hyperlipidemia E78.5 [facility] [place] [address] [place] [id number] [address] [place] [id number] 05 Oct, 2018 [facility] [place] [address] [id number] [address] [place] [address] Sep, Chronic pain syndrome G89.4 [facility] [place] [address] [id number] [address] [place] [address] Sep, Rheumatoid arthritis 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.89 ; Chronic constipation K59.00 ; Gastroesophageal reflux disease, esophagitis presence not specified K21.9 ; Asthma exacerbation J45.901 ; Severe episode of recurrent major depressive disorder, without psychotic features F33.2 ; Ganglion cyst M67.40 and Chronic prescription opiate use Z79.899 [facility] [address] [facility] [id number] [address] [place] [address] Aug, Cough R05 and Moderate persi stent asthma with acute exacerbation J45.41 [facility] [place] [address] [facility] [id number] [address] [place] [address] Aug, Chronic pain syndrome G89.4 [facility] [place] [address] [facility] [id number] [address] [place] [address] Jul, Chronic pain syndrome G89.4 [facility] [address] [facility] [id number] [address] [place] [address] Jul, Acute nasopharyngitis J00 [facility] [place] [address] [facility] [id number] [address] [place] [address] Jun, [facility] [place] [address] [facility] [id number] [address] [place] [address] Jun, Chronic pain syndrome G89.4 [facility] [place] [address] [facility] [id number] [address] [place] [address] 21 May, 2018 Chronic pain syndrome G89.4 [facility] [place] [address] [facility] [id number] [address] [place] [id number] 14 May, 2018 [facility] [place] [address] [facility] [id number] [address] [place] [address] 13 May, 2018 [facility] [place] [address] [place] [id number] [address] [place] [address] 13 May, 2018 Moderate persistent asthma w ith acute exacerbation J45.41 and Rheumatoid arthritis involving multiple sites with positive rheumatoid factor M05.89 [facility] [place] [address] [id number] [address] [place] [address] 12 May, 2018 Moderate persistent asthma w ith acute exacerbation J45.41 and Hypoxia R09.02 [facility] [place] [address] [facility] [id number] [address] [place] [address] Apr, Chronic pain syndrome G89.4 [facility] [place] [address] [facility] [id number] [address] [place] [address] Mar, High ankle sprain of right l ower extremity, subsequent encounter S93.431D ; Lumbago with sciatica, left side M54.42 and Lumbago with sciatica, right side M54.41 [facility] [place] [address] [facility] [id number] [address] [place] [address] Mar, [facility] [place] [address] [facility] [id number] [address] [place] [address] Mar, Chronic pain syndrome G89.4 [facility] [place] [address] [facility] [id number] [address] [place] [id number] Mar, [facility] [place] [address] [facility] [id number] [address] [place] [address] Mar, Asthma exacerbation J45.901 and Sprain of right ankle, unspecified ligament, subsequent encounter S93.401D [facility] [address] [id number] [address] [place] [address] 30 Feb, 2018 Injury of right ankle, initi al encounter S99.911A [facility] [place] [address] [facility] [id number] [address] [place] [address] Feb, Chronic pain syndrome G89.4 [facility] [place] [address] [facility] [id number] [address] [place] [address] Feb, Chronic pain syndrome G89.4 [place] [address] [place] [address] Feb, Moderate persistent asthma w ith acute exacerbation J45.41 and Persistent cough for 3 weeks or longer R05 [place] [address] [place] [id number] [address] [place] [address] January, [place] [address] [place] [id number] [address] [place] [address] January, Moderate persistent asthma w ith acute exacerbation J45.41 [place] [address] [address] January, Chronic pain syndrome G89.[address] [address] January, Tachycardia R00.0 and Modera te persistent asthma with acute exacerbation J45.41 [place] [address] [address] January, Tachycardia R00.0 ; Moderate persistent asthma with acute exacerbation J45.41 ; Gastroesophageal reflux disease, esophagitis presence not specified K21.9 ; Hyperlipidemia, unspecified hyperlipidemia E78.5 and Chronic pain syndrome G89.4 [place] [address] [address] Dec, Medicare annual wellness vis it, initial Z00.00 ; Severe episode of recurrent major depressive disorder, without psychotic features F33.2 ; Rheumatoid arthritis involving multiple sites with positive rheumatoid factor M05.89 ; Hyperlipidemia, unspecified hyperlipidemia E78.5 ; Essential hypertension I10 ; Osteoporosis M81.0 ; Gastroesophageal reflux disease, esophagitis presence not specified K21.9 ; Generalized anxiety disorder F41.1 ; Breast cancer screening Z12.31 ; At high risk for falls Z91.81 ; Encounter for immunization Z23 and Chronic pain syndrome G89.4 [place] [address] [place] [id number] [address] [place] [address] Dec, Chronic pain syndrome G89.4 [place] [address] [address] Dec, [facility] [place] [address] [facility] [id number] [address] [place] [address] Nov, [facility] [place] [address] [facility] [id number] [address] [place] [address] Nov, Chronic pain syndrome G89.4 [facility] [place] [address] [facility] [id number] [address] [place] [address] Oct, Chronic pain syndrome G89.4 [facility] [place] [address] [facility] [id number] [address] [place] [address] Oct, Chronic kidney disease, stag e 1 N18.1 [facility] [place] [address] [facility] [id number] [address] [place] [address] Oct, Chronic prescription opiate use Z79.899 ; Cough R05 ; Asthma exacerbation J45.901 ; Elevated liver enzymes R74.8 ; Rheumatoid arthritis involving multiple sites with positive rheumatoid factor M05.89 and Chronic pain syndrome G89.4 [facility] [place] [address] [facility] [id number] [address] [place] [address] Sep, Chronic pain syndrome G89.4 [facility] [place] [address] [facility] [id number] [address] [place] [address] Sep, [facility] [place] [address] [facility] [id number] [address] [place] [address] Aug, Acute bronchitis, unspecifie d organism J20.9 [facility] [place] [address] [facility] [id number] [address] [place] [address] Aug, Chronic pain syndrome G89.4 [facility] [place] [address] [facility] [id number] [address] [place] [address] Jul, Chronic pain syndrome G89.4 [facility] [place] [address] [facility] [id number] [address] [place] [address] Jun, Chronic pain syndrome G89.4 [facility] [place] [address] [place] [id number] [address] [place] [address] May, Rheumatoid arthritis 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.89 [place] [address] [place] [id number] [place] [address] May, Gastroesophageal reflux dise ase, esophagitis presence not specified K21.9 and Chronic pain syndrome G89.4 [place] [address] [address] May, [place] [address] [address] May, Esophageal candidiasis B37.8 1 and Chronic kidney disease, stage 1 N18.1 [place] [address] [address] May, Chronic kidney disease, stag e 1 N18.1 [place] [address] [address] May, Cough R05 ; Fever, unspecifi ed fever cause R50.9 ; Rheumatoid arthritis involving multiple sites with positive rheumatoid factor M05.89 and Chronic prescription opiate use Z79.899 [place] [address] [address] Apr, [place] [address] [address] Apr, Cough R05 [place] [address] [address] Apr, Asthma exacerbation J45.901 [place] [address] [place] [id number] [address] [place] [address] Apr, [place] [address] [address] Apr, Generalized anxiety disorder F41.1 and Severe episode of recurrent major depressive disorder, without psychotic features F33.2 [place] [address] [address] Mar, [facility] [place] [address] [facility] [id number] [address] [place] [address] Feb, Chronic pain syndrome G89.4 [facility] [place] [address] [facility] [id number] [address] [place] [address] Feb, Acute non-recurrent maxillar y sinusitis J01.00 [facility] [place] [address] [facility] [id number] [address] [place] [address] Feb, Acute non-recurrent frontal sinusitis J01.10 [facility] [place] [address] [facility] [id number] [address] [place] [address] Feb, Chronic pain syndrome G89.4 [facility] [place] [address] [facility] [id number] [address] [place] [address] January, Acute cystitis with hematuri a N30.01 [place] [address] [facility] [id number] [address] [place] [address] January, Acute cystitis with hematuri a N30.01 ; Dysuria R30.0 and Moderate persistent asthma with acute exacerbation J45.41 [place] [address] [facility] [id number] [address] [place] [address] January, [place] [address] [facility] [id number] [address] [place] [address] January, Chronic pain syndrome G89.4 [facility] [place] [address] [facility] [id number] [address] [place] [address] January, Asthma exacerbation J45.901 [place] [address] [place] [id number] [address] [place] [address] January, Asthma exacerbation J45.901 [place] [address] [place] [id number] [address] [place] [id number] Dec, Cough R05 ; Numbness in both hands R20.0 ; Ground glass opacity present on imaging of lung R91.8 ; Hypoxia R09.02 and Asthma exacerbation J45.901 [place] [address] [address] [facility] [place] [id number] [address] [place] [id number] Dec, Chronic pain syndrome G89.4 [place] [address] [address] [place] [id number] [address] [place] [id number] Nov, Chronic prescription opiate use Z79.899 ; Rheumatoid arthritis involving multiple sites with positive rheumatoid factor M05.89 ; Moderate persistent asthma with acute exacerbation J45.41 ; Pneumonia of right lower lobe due to infectious organism J18.1 ; Chronic pain syndrome G89.4 ; Gastroesophageal reflux disease, esophagitis presence not specified K21.9 and Hyperlipidemia, unspecified hyperlipidemia E78.5 [place] [address] [address] Nov, Rheumatoid arthritis 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.89 [place] [address] [address] Oct, [place] [address] [address] [place] [id number] [address] [place] [address] Oct, Essential hypertension I10 [place] [address] [address] Sep, Hypoxia R09.02 [address] Ground gl ass opacity present on imaging of lung R91.8 [place] [address] [address] Sep, Moderate persistent asthma w ith acute exacerbation J45.41 [facility] [address] [id number] Sep, [place] [address] [address] [place] [id number] [address] [place] [address] Sep, Chronic constipation K59.00 and Moderate persistent asthma with acute exacerbation J45.41 [place] [address] [address] [place] [id number] [address] [place] [address] Sep, Moderate persistent asthma w ith acute exacerbation J45.41 [place] [address] [place] [address] Aug, [facility] [address] [facility] [id number] [address] [place] [address] Aug, [facility] [address] [facility] [id number] [address] [place] [address] Aug, [facility] [address] [facility] [id number] [address] [place] [address] Aug, Rheumatoid arthritis 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.89 ; Essential hypertension I10 ; Hyperlipidemia, unspecified hyperlipidemia E78.5 ; Chronic constipation K59.00 and Moderate persistent asthma with acute exacerbation J45.41 [place] [address] [address] [facility] [id number] [address] [place] [address] Aug, Bronchitis J40 [facility] [address] [place] [id number] [address] [place] [address] Aug, Rheumatoid arthritis 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.89 [facility] [address] [facility] [id number] [address] [place] [address] Aug, Pharyngitis, unspecified pablito ology J02.9 and Acute nasopharyngitis J00 [facility] [address] [facility] [id number] [address] [place] [address] Aug, [facility] [address] [place] [id number] [address] [place] [address] Jul, [facility] [address] [place] [id number] [place] [address] Jul, Rheumatoid arthritis 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.89 ; Essential hypertension I10 ; Hyperlipidemia, unspecified hyperlipidemia E78.5 ; Rash R21 ; Mild persistent asthma with acute exacerbation J45.31 ; Hematuria R31.9 ; Osteoporosis M81.0 and Gastroesophageal reflux disease, esophagitis presence not specified K21.9 [facility] [address] [facility] [id number] [address] [place] [address] Jun, [facility] [address] [facility] [id number] [address] [place] [address] Jun, Dysuria R30.0 [facility] [address] [facility] [id number] [address] [place] [address] 05 Jun, 2016 Acute non-recurrent maxillar y sinusitis J01.00 and Dysuria R30.0 [facility] [address] [facility] [id number] [address] [place] [address] 16 May, 2016 [facility] [address] [facility] [id number] [address] [place] [address] May, [facility] [address] [place] [id number] [place] [address] Apr, Chronic prescription opiate use Z79.899 and Rheumatoid arthritis involving multiple sites with positive rheumatoid factor M05.89 [facility] [place] [address] [place] [id number] [address] [place] [address] Mar, [facility] [address] [place] [id number] [address] [place] [address] Feb, Dizziness of unknown cause R 42 and Other chronic pain G89.29 [place] [address] [address] [place] [id number] [address] [place] [address] Feb, [facility] [address] [place] [id number] [address] [place] [address] Feb, Shortness of breath R06.02 [facility] [address] [place] [id number] [address] [place] [address] January, [place] [address] [address] [place] [id number] [address] [place] [address] January, Rheumatoid arthritis 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.89 ; Chronic prescription opiate use Z79.899 ; Hyperlipidemia, unspecified hyperlipidemia E78.5 ; Cough R05 ; Exposure to pneumonia Z20.828 ; Diarrhea, unspecified type R19.7 ; Weight loss R63.4 ; Lumbago with sciatica, right side M54.41 and Lumbago with sciatica, left side M54.42 [facility] [address] [facility] [id number] [address] [place] [address] Dec, [facility] [address] [facility] [id number] [address] [place] [address] Dec, Bronchitis J40 [facility] [address] [facility] [id number] [address] [place] [address] Nov, [facility] [address] [facility] [id number] [address] [place] [address] Nov, [facility] [address] [facility] [id number] [address] [place] [address] Nov, [facility] [address] [facility] [id number] [address] [place] [address] Nov, Bloody diarrhea R19.7 ; [place] n wall thickening K63.9 ; Shortness of breath R06.02 and Bladder wall thickening N32.89 [facility] [address] [place] [id number] [place] [id number] 15 Oct, 2015 Dental examination Z01.20 [facility] [address] [facility] [id number] [address] [place] [address] 15 Oct, 2015 [facility] [address] [facility] [id number] [address] [place] [address] 15 Oct, 2015 Toothache K08.8 [facility] [address] [place] [id number] [place] [id number] 11 Oct, 2015 Dental examination Z01.20 [facility] [address] [facility] [id number] [address] [place] [address] 02 Oct, 2015 [facility] [address] [facility] [id number] [address] [place] [address] Sep, [facility] [address] [facility] [id number] [address] [place] [address] Sep, Burning with urination R30.0 [place] [address] [id number] [address] [place] [address] Sep, Hematuria R31.9 ; Rheumatoid arthritis involving multiple sites with positive rheumatoid factor M05.89 and Rheumatoid arthritis flare M06.9 [place] [address] [id number] [address] [place] [address] Aug, Hyperlipidemia, unspecified hyperlipidemia E78.5 and Hematuria R31.9 [place] [address] [id number] [address] [place] [address] Aug, Hematuria R31.9 ; Chronic ki dney disease, stage 1 N18.1 and Hyperlipidemia, unspecified hyperlipidemia E78.5 [place] [address] [address] [facility] [id number] [address] [place] [address] Aug, Rheumatoid arthritis 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.89 ; Asthma exacerbation J45.901 ; Hematuria R31.9 ; Hyperlipidemia, unspecified hyperlipidemia E78.5 and Chronic kidney disease, stage 1 N18.1 [place] [address] [address] [facility] [id number] [address] [place] [address] Aug, [place] [address] [address] [facility] [id number] [address] [place] [address] Jul, [place] [address] [facility] [id number] [address] [place] [address] Jul, Lumbosacral radiculopathy M5 4.17 [place] [address] [address] [facility] [id number] [address] [place] [address] Jul, [place] [address] [address] [facility] [id number] [address] [place] [address] Jun, Rheumatoid arthritis 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.89 ; Hyperlipidemia, unspecified hyperlipidemia E78.5 ; Lumbosacral radiculopathy M54.17 ; Carpal tunnel syndrome, right upper limb G56.01 and Carpal tunnel syndrome, left upper limb G56.02 [place] [address] [address] [facility] [id number] [address] [place] [address] Jun, [facility] [address] [id number] [address] [place] [address] May, Lumbar radicular pain 724.4 and Dysuria 788.1 [facility] [address] [id number] [address] [place] [address] May, Rheumatoid arthritis 714.0 ; Lumbar radicular pain 724.4 ; Burn 949.0 and Thoracic back pain 724.1 [facility] [address] [id number] [address] [place] [address] May, [facility] [address] [id number] [address] [place] [address] May, [facility] [address] [facility] [id number] [address] [place] [address] Apr, [facility] [address] [id number] [address] [place] [id number] Mar, Hyperlipidemia 272.4 [facility] [address] [facility] [id number] [address] [place] [address] Mar, [facility] [address] [facility] [id number] [address] [place] [address] Mar, [facility] [address] [facility] [id number] [address] [place] [address] Mar, Diarrhea 787.91 ; Chronic ki dney disease, unspecified 585.9 ; Hyperlipidemia 272.4 and Asthma 493.90 [facility] [address] [facility] [id number] [address] [place] [address] Mar, [facility] [address] [facility] [id number] [address] [place] [address] Mar, Gastroenteritis 558.9 [facility] [address] [facility] [id number] [address] [place] [phone] Feb, [facility] [address] [id number] [address] [place] [address] [place] [address] January, [facility] [address] [id number] [address] [place] [address], [place] [address] January, [facility] [address] [id number] [address] [place] [address], [place] [address] Dec, [facility] [address] [id number] [address] [place] [address], [place] [address] Dec, [facility] [address] [id number] [address] [place] [address], [place] [address] Nov, [facility] [address] [id number] [address] [place] [address], [place] [address] Nov, [facility] [address] [id number] [address] [place] [address], [place] [address] Nov, [facility] [address] [id number] [address] [place] [address], [place] [address] Nov, [facility] [address] [id number] [address] [place] [address], [place] [address] Nov, [facility] [address] [id number] [address] [place] [address], [place] [address] Nov, [facility] [address] [id number] [address] [place] [address], [place] [address] Oct, [facility] [address] [id number] [address] [place] [address], [place] [address] Oct, [facility] [address] [id number] [address] [place] [address], [place] [address] Sep, [facility] [address] [id number] [address] [place] [address], [place] [address] Sep, [facility] [address] [id number] [address] [place] [address], [place] [address] Sep, [facility] [address] [id number] [address] [place] [address], [place] [address] Sep, [facility] [address] [id number] [address] [place] [address], [place] [address] Sep, [facility] [address] [id number] [address] [place] [address], [place] [address] Sep, [facility] [address] [id number] [address] [place] [address], [place] [address] Aug, [facility] [address] [id number] [address] [place] [address], [place] [address] Aug, [facility] [address] [id number] [address] [place] [address], [place] [address] Aug, [facility] [address] [id number] [address] [place] [address], [place] [address] Aug, [facility] [address] [id number] [address] [place] [address], [place] [address] Jul, [facility] [address] [id number] [address] [place] [address], [place] [address] Jul, [facility] [address] [id number] [address] [place] [address], [place] [address] Jul, [facility] [address] [id number] [address] [place] [address], [place] [address] Jul, [facility] [address] [id number] [address] [place] [address], [place] [address] Jul, [facility] [address] [id number] [address] [place] [address], [place] [address] Jul, [facility] [address] [id number] [address] [place] [address], [place] [address] Jul, [facility] [address] [id number] [address] [place] [address], [place] [address] Jul, [facility] [address] [id number] [address] [place] [address], [place] [address] Jul, [facility] [address] [id number] [place] [address] 31 Jun, 2014 [facility] [address] [id number] [address] [place] [address], [place] [address] 15 Jun, 2014 [facility] [address] [id number] [address] [place] [address], [place] [address] 15 Jun, 2014 [facility] [address] [id number] [address] [place] [address], [place] [address] 25 May, 2013 [facility] [address] [id number] [address] [place] [address], [place] [address] 25 May, 2013 [facility] [address] [id number] [address] [place] [address], [place] [address] 24 May, 2013 [facility] [address] [id number] [address] [place] [address], [place] [address] 24 May, 2013 [facility] [address] [id number] [address] [place] [address], [place] [address] 24 May, 2013 [facility] [address] [id number] [address] [place] [address], [place] [address] 24 May, 2013 [facility] [address] [id number] [address] [place] [address], [place] [address] 19 May, 2013 [facility] [address] [id number] [address] [place] [address], [place] [address] 19 May, 2013 [facility] [address] [id number] [address] [place] [address], [place] [address] 11 May, 2013 [facility] [address] [id number] [address] [place] [address], [place] [address] 11 May, 2013 [facility] [address] [id number] [address] [place] [address], [place] [address] 11 May, 2013 [facility] [address] [id number] [address] [place] [address], [place] [address] 11 May, 2013 [facility] [address] [id number] [address] [place] [address], [place] [address] 10 May, 2013 [facility] [address] [id number] [address] [place] [address] May, [facility] [address] [id number] [address] [place] [address] May, [facility] [address] [id number] [address] [place] [address] May, [facility] [address] [facility] [id number] [address] [place] [address] Apr, [facility] [address] [facility] [id number] [address] [place] [address] Apr, [facility] [address] [facility] [id number] [address] [place] [address] Aug, [facility] [address] [facility] [id number] [address] [place] [address] Jul, IMMUNIZATIONS No Known Immunizations SOCIAL HISTORY Never Assessed REASON FOR VISIT PLAN OF CARE VITAL SIGNS MEDICATIONS Unknown Medications RESULTS No Results PROCEDURES No Known procedures INSTRUCTIONS MEDICATIONS ADMINISTERED No Known Medications MEDICAL (GENERAL) HISTORY Type Description Date Medical History hypertension Medical History osteoporosis Medical History rheumatoid arthritis Medical History Heart infection Medical History Rheumatic or Scarlet Fever Medical History Pneumonia Medical History Bronchitis Medical History Prednisone Medical History Bilateral Pneumonia. 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
--- OUTSIDE RECORDS SUMMARY | 2020-02-27 15:38 | XMS REPORT ---
Author Author Beba GARCIA Organization [facility] Address [address] [place] [address] Care Team Providers Care Manager Utilization Management Name Role Phone JAMES GARCIA Unavailable PROBLEMS Type Condition ICD9-CM Code NMN93-YN Code Onset Dates Condition S tatus SNOMED Code Problem Rheumatoid arthritis 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.89 Active 754608218 Problem Vitamin D deficiency E55.9 Active 21881124 Problem Chronic prescription opiate use Z79.899 Active 478164928 Problem Atrophy of left kidney N26.1 Active 978306494 Problem Colon wall thickening K63.9 Active 818315682 Problem Bladder wall thickening N32.89 Active 210872095 Problem Gastroesophageal reflux disease, esophagitis pre sence not specified K21.9 Active 955928321 Problem Pernicious anemia D51.0 Active 84 768877 Problem Osteoporosis M81.0 Active 9312881 6 Problem Hyperlipidemia, unspecified hyperlipidemia E78.5 Active 10964274 Problem Asthma exacerbation J45.901 Active 575141405 Problem Severe episode of recurrent major depressive disorder, without psychotic features F33.2 Active 34240164 Problem Generalized anxiety disorder F41.1 A ctive 21545916 Problem Chronic respiratory failure with hypoxia J96.11 Active 875701735 Problem Chronic pain syndrome G89.4 Active 683761316 Problem Chronic constipation K59.00 Active 135249408 Problem COPD exacerbation J44.1 Active 19 4103295 Problem Moderate persistent asthma with acute exacerbation J45.41 Active 771495787022163 Problem Chronic kidney disease, stage 1 N18.1 Active 086635774 Problem Essential hypertension I10 Active 38443081 Problem Moderate persistent asthma without complication J4 5.40 Active 791411690 Problem Lumbago with sciatica, left side M54.42 Active 113784406 Problem Lumbago with sciatica, right side M54.41 Active 557585283823740 Problem Dependence on supplemental oxygen Z99.81 Active [id number] ALLERGIES No Information ENCOUNTERS Encounter Location Date Diagnosis [facility] [address] [facility] [id number] [address] [place] [phone] 29 Dec, 2019 COPD exacerbation J44.1 [facility] [address] [place] [id number] [address] [place] [phone] 28 Dec, 2019 [facility] [address] [place] [phone] 09 Dec, 2019 Rheumatoid arthritis 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.89 [facility] [address] [place] [id number] [address] [place] [phone] 08 Dec, 2019 [facility] [address] [place] [id number] [place] [address] Nov, Rheumatoid arthritis 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.89 ; Acute pain of right knee M25.561 ; Fever, unspecified fever cause R50.9 ; Essential hypertension I10 ; Hyperlipidemia, unspecified hyperlipidemia E78.5 and Cough R05 [facility] [address] [place] [phone] Nov, Rheumatoid arthritis 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.89 [facility] [address] [place] [id number] [place] [phone] 10 Oct, 2019 Rheumatoid arthritis 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.89 [facility] [address] [place] [id number] [place] [phone] Sep, Rheumatoid arthritis 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.89 [facility] [address] [place] [id number] [place] [phone] Aug, [facility] [address] [place] [id number] [address] [place] [phone] Aug, COPD exacerbation J44.1 and Right otitis media with effusion H65.91 [facility] [address] [place] [id number] [place] [id number] Aug, Rheumatoid arthritis 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.89 [facility] [address] [id number] [address] [place] [phone] Aug, [facility] [address] [facility] [id number] [address] [place] [phone] Aug, Rheumatoid arthritis 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.89 [facility] [address] [id number] [address] [place] [phone] Jul, Essential hypertension I10 [facility] [address] [facility] [id number] [address] [place] [phone] Jul, Severe episode of recurrent major depressive disorder, without psychotic features F33.2 [facility] [address] [facility] [id number] [address] [place] [phone] Jul, Shortness of breath at rest R06.02 ; Cough R05 ; Rheumatoid arthritis involving multiple sites with positive rheumatoid factor M05.89 ; Chronic respiratory failure with hypoxia J96.11 ; Severe episode of recurrent major depressive disorder, without psychotic features F33.2 and Chronic pain syndrome G89.4 [facility] [address] [facility] [id number] [address] [place] [phone] Jul, Gastroesophageal reflux dise ase, esophagitis presence not specified K21.9 ; Shortness of breath at rest R06.02 and Rheumatoid arthritis involving multiple sites with positive rheumatoid factor M05.89 [facility] [address] [facility] [id number] [address] [place] [phone] Jun, [facility] [address] [id number] [address] [place] [phone] Jun, Rheumatoid arthritis 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.89 [facility] [address] [facility] [id number] [address] [place] [id number] Jun, Rheumatoid arthritis 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.89 [facility] [address] [facility] [id number] [address] [place] [address] Jun, Laryngitis J04.0 ; Cough R05 ; Acute non-recurrent maxillary sinusitis J01.00 ; Severe episode of recurrent major depressive disorder, without psychotic features F33.2 and Chronic respiratory failure with hypoxia J96.11 [facility] [address] [facility] [id number] [address] [place] [phone] 17 May, 2019 Rheumatoid arthritis 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.89 [facility] [address] [facility] [id number] [address] [place] [id number] 16 May, 2019 Shortness of breath R06.02 [facility] [address] [facility] [id number] [address] [place] [phone] May, Shortness of breath R06.02 [facility] [address] [facility] [id number] [address] [place] [phone] May, Shortness of breath at rest R06.02 ; Tachypnea on examination R06.82 ; Cough, persistent R05 and Dysuria R30.0 [facility] [address] [facility] [id number] [address] [place] [phone] Apr, Rheumatoid arthritis 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.89 [facility] [address] [facility] [id number] [address] [place] [phone] Apr, [facility] [address] [facility] [id number] [address] [place] [phone] Apr, [facility] [address] [facility] [id number] [address] [place] [phone] Mar, Rheumatoid arthritis 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.89 and Chronic constipation K59.00 [facility] [address] [facility] [id number] [address] [place] [phone] Mar, [facility] [address] [facility] [id number] [address] [place] [phone] Mar, Dizziness R42 and Nausea and vomiting, intractability of vomiting not specified, unspecified vomiting type R11.2 [place] [id number] [facility] [id number] [address] [place] [phone] Feb, Chronic pain syndrome G89.4 [facility] MARIEL BURTON [id number] [address] January, Chronic pain syndrome G89.4 [facility] [address] [facility] [id number] [address] [place] [phone] Dec, [facility] [address] [facility] [id number] [address] [place] [phone] Dec, [facility] [address] [facility] [id number] [address] [place] [address] Dec, Asthma exacerbation J45.901 ; Essential hypertension I10 ; Hyperlipidemia, unspecified hyperlipidemia E78.5 ; Rheumatoid arthritis involving multiple sites with positive rheumatoid factor M05.89 ; Chronic pain syndrome G89.4 ; Chronic kidney disease, stage 1 N18.1 ; Chronic respiratory failure with hypoxia J96.11 and Dependence on supplemental oxygen Z99.81 [facility] [address] [facility] [id number] [address] [place] [phone] Dec, Chronic pain syndrome G89.4 [facility] [address] [facility] [id number] [address] [place] [phone] Nov, Chronic pain syndrome G89.4 [facility] [address] [facility] [id number] [address] [place] [phone] Nov, [facility] [address] [facility] [id number] [address] [place] [phone] Oct, Chronic pain syndrome G89.4 [facility] [address] [facility] [id number] [address] [place] [phone] Oct, [facility] [address] [facility] [id number] [address] [place] [phone] Oct, Viral upper respiratory trac t infection J06.9 ; Chronic constipation K59.00 ; Severe episode of recurrent major depressive disorder, without psychotic features F33.2 ; Moderate persistent asthma with acute exacerbation J45.41 ; Essential hypertension I10 ; Gastroesophageal reflux disease, esophagitis presence not specified K21.9 and Hyperlipidemia, unspecified hyperlipidemia E78.5 [facility] [address] [place] [address] 05 Oct, 2018 [facility] [address] [place] [id number] [address] [place] [phone] Sep, Chronic pain syndrome G89.4 [place] [address] [address] Sep, Rheumatoid arthritis 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.89 ; Chronic constipation K59.00 ; Gastroesophageal reflux disease, esophagitis presence not specified K21.9 ; Asthma exacerbation J45.901 ; Severe episode of recurrent major depressive disorder, without psychotic features F33.2 ; Ganglion cyst M67.40 and Chronic prescription opiate use Z79.899 [facility] [address] [address] Aug, Cough R05 and Moderate persi stent asthma with acute exacerbation J45.41 [facility] [address] [address] Aug, Chronic pain syndrome G89.4 [place] [address] [place] [id number] [place] [address] Jul, Chronic pain syndrome G89.4 [facility] [address] [place] [id number] [address] [place] [phone] Jul, Acute nasopharyngitis J00 [facility] [address] [place] [phone] Jun, [place] [address] [address] Jun, Chronic pain syndrome G89.4 [facility] [address] [place] [id number] [place] [phone] May, Chronic pain syndrome G89.4 [place] [address] [id number] [address] [place] [phone] 14 May, 2018 [facility] [address] [id number] [address] [place] [phone] 13 May, 2018 [facility] [address] [id number] [address] [place] [phone] May, Moderate persistent asthma w ith acute exacerbation J45.41 and Rheumatoid arthritis involving multiple sites with positive rheumatoid factor M05.89 [facility] [address] [id number] [address] [place] [phone] May, Moderate persistent asthma w ith acute exacerbation J45.41 and Hypoxia R09.02 [facility] [address] [id number] [address] [place] [phone] Apr, Chronic pain syndrome G89.4 [facility] [address] [id number] [address] [place] [phone] Mar, High ankle sprain of right l ower extremity, subsequent encounter S93.431D ; Lumbago with sciatica, left side M54.42 and Lumbago with sciatica, right side M54.41 [facility] [address] [id number] [address] [place] [phone] Mar, [facility] [address] [id number] [address] [place] [phone] Mar, Chronic pain syndrome G89.4 [facility] [address] [id number] [address] [place] [phone] Mar, [facility] [address] [facility] [id number] [address] [place] [phone] Mar, Asthma exacerbation J45.901 and Sprain of right ankle, unspecified ligament, subsequent encounter S93.401D [facility] [address] [id number] [address] [place] [address] Feb, Injury of right ankle, initi al encounter S99.911A [facility] [address] [address] Feb, Chronic pain syndrome G89.4 [place] [address] [address] Feb, Chronic pain syndrome G89.4 [place] [address] [address] Feb, Moderate persistent asthma w ith acute exacerbation J45.41 and Persistent cough for 3 weeks or longer R05 [place] [address] [address] January, [place] [address] [address] January, Moderate persistent asthma w ith acute exacerbation J45.41 [place] [address] [address] January, Chronic pain syndrome G89.4 [place] [address] [address] 14 Jan, 2018 Tachycardia R00.0 and Modera te persistent asthma with acute exacerbation J45.41 [place] [address] [address] January, Tachycardia R00.0 ; Moderate persistent asthma with acute exacerbation J45.41 ; Gastroesophageal reflux disease, esophagitis presence not specified K21.9 ; Hyperlipidemia, unspecified hyperlipidemia E78.5 and Chronic pain syndrome G89.4 [place] [address] [address] Dec, Medicare annual wellness vis it, initial [...] immunization Z23 and Chronic pain syndrome G89.4 [facility] [address] [place] [id number] [place] [phone] Dec, Chronic pain syndrome G89.4 [facility] [address] [place] [id number] [place] [phone] Dec, [facility] [address] [place] [id number] [place] [phone] Nov, [facility] [address] [place] [id number] [place] [address] Nov, Chronic pain syndrome G89.4 [facility] [address] [address] Oct, Chronic pain syndrome G89.4 [facility] [address] [place] [id number] [place] [address] Oct, Chronic kidney disease, stag e 1 N18.1 [facility] [address] [place] [id number] [place] [address] 07 Oct, 2017 Chronic prescription opiate use Z79.899 ; Cough R05 ; Asthma exacerbation J45.901 ; Elevated liver enzymes R74.8 ; Rheumatoid arthritis involving multiple sites with positive rheumatoid factor M05.89 and Chronic pain syndrome G89.4 [facility] [address] [place] [id number] [place] [phone] Sep, Chronic pain syndrome G89.4 [facility] [address] [place] [id number] [place] [phone] Sep, [facility] [address] [place] [id number] [place] [phone] Aug, Acute bronchitis, unspecifie d organism J20.9 [facility] [address] [place] [id number] [place] [phone] Aug, Chronic pain syndrome G89.4 [facility] [address] [place] [id number] [place] [phone] Jul, Chronic pain syndrome G89.4 [facility] [address] [facility] [id number] [address] [place] [phone] Jun, Chronic pain syndrome G89.4 [facility] [address] [facility] [id number] [address] [place] [phone] 29 May, 2017 Rheumatoid arthritis 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.89 [facility] [address] [facility] [id number] [address] [place] [id number] May, Gastroesophageal reflux dise ase, esophagitis presence not specified K21.9 and Chronic pain syndrome G89.4 [facility] [address] [place] [id number] [place] [phone] May, [place] [address] [address] May, Esophageal candidiasis B37.8 1 and Chronic kidney disease, stage 1 N18.1 [facility] [address] [place] [address] May, Chronic kidney disease, stag e 1 N18.1 [place] [address] [address] 05 May, 2017 Cough R05 ; Fever, unspecifi ed fever cause R50.9 ; Rheumatoid arthritis involving multiple sites with positive rheumatoid factor M05.89 and Chronic prescription opiate use Z79.899 [place] [address] [place] [id number] [place] [address] Apr, [facility] [address] [place] [address] Apr, Cough R05 [place] [address] [place] [id number] [address] [place] [address] Apr, Asthma exacerbation J45.901 [place] [address] [place] [id number] [address] [place] [address] Apr, [facility] [address] [place] [id number] [place] [address] Apr, Generalized anxiety disorder F41.1 and Severe episode of recurrent major depressive disorder, without psychotic features F33.2 [place] [address] [facility] [id number] [address] [place] [address] Mar, [place] [address] [facility] [id number] [address] [place] [phone] Feb, Chronic pain syndrome G89.4 [place] [address] [facility] [id number] [address] [place] [address] Feb, Acute non-recurrent maxillar y sinusitis J01.00 [place] [address] [facility] [id number] [address] [place] [phone] Feb, Acute non-recurrent frontal sinusitis J01.10 [place] [address] [place] [id number] [place] [phone] Feb, Chronic pain syndrome G89.4 [place] [address] [facility] [id number] [address] [place] [address] January, Acute cystitis with hematuri a N30.01 [place] [address] [facility] [id number] [address] [place] [address] January, Acute cystitis with hematuri a N30.01 ; Dysuria R30.0 and Moderate persistent asthma with acute exacerbation J45.41 [place] [address] [facility] [id number] [address] [place] [id number] January, [place] [address] [facility] [id number] [address] [place] [address] January, Chronic pain syndrome G89.4 [place] [address] [facility] [id number] [address] [place] [address] January, Asthma exacerbation J45.901 [place] [address] [place] [id number] [place] [address] January, Asthma exacerbation J45.901 [place] [address] [place] [address] Dec, Cough R05 ; Numbness in both hands R20.0 ; Ground glass opacity present on imaging of lung R91.8 ; Hypoxia R09.02 and Asthma exacerbation J45.901 [place] [address] [place] [id number] [address] [place] [address] Dec, Chronic pain syndrome G89.4 [place] [address] [address] Nov, Chronic prescription opiate use Z79.899 ; Rheumatoid arthritis involving multiple sites with positive rheumatoid factor M05.89 ; Moderate persistent asthma with acute exacerbation J45.41 ; Pneumonia of right lower lobe due to infectious organism J18.1 ; Chronic pain syndrome G89.4 ; Gastroesophageal reflux disease, esophagitis presence not specified K21.9 and Hyperlipidemia, unspecified hyperlipidemia E78.[address] [address] Nov, Rheumatoid arthritis 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.89 [place] [id number] [place] [phone] Oct, [place] [address] [place] [id number] [place] [address] Oct, Essential hypertension I10 [place] [id number] [place] [address] Sep, Hypoxia R09.02 and Ground gl ass opacity present on imaging of lung R91.8 [place] [address] [place] [id number] [address] [place] [phone] Sep, Moderate persistent asthma w ith acute exacerbation J45.41 [place] [address] [place] [id number] [place] [id number] Sep, [place] [address] [place] [id number] [place] [address] Sep, Chronic constipation K59.00 and Moderate persistent asthma with acute exacerbation J45.41 [facility] [address] [id number] [address] [place] [phone] Sep, Moderate persistent asthma w ith acute exacerbation J45.41 [facility] [address] [id number] [address] [place] [phone] Aug, [facility] [address] [id number] [address] [place] [phone] Aug, [facility] [address] [id number] [address] [place] [phone] Aug, [facility] [address] [id number] [address] [place] [address] Aug, Rheumatoid arthritis 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.89 ; Essential hypertension I10 ; Hyperlipidemia, unspecified hyperlipidemia E78.5 ; Chronic constipation K59.00 and Moderate persistent asthma with acute exacerbation J45.41 [facility] [address] [id number] [address] [place] [phone] Aug, Bronchitis J40 [facility] [address] [id number] [address] [place] [phone] Aug, Rheumatoid arthritis 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.89 [facility] [address] [id number] [address] [place] [phone] Aug, Pharyngitis, unspecified pablito ology J02.9 and Acute nasopharyngitis J00 [facility] [address] [id number] [address] [place] [phone] Aug, [facility] [address] [id number] [address] [place] [phone] Jul, [facility] [address] [id number] [address] [place] [phone] Jul, Rheumatoid arthritis 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.89 ; Essential hypertension I10 ; Hyperlipidemia, unspecified hyperlipidemia E78.5 ; Rash R21 ; Mild persistent asthma with acute exacerbation J45.31 ; Hematuria R31.9 ; Osteoporosis M81.0 and Gastroesophageal reflux disease, esophagitis presence not specified K21.9 [facility] [address] [facility] [id number] [address] [place] [phone] 18 Jun, 2016 [facility] [address] [facility] [id number] [address] [place] [phone] 10 Jun, 2016 Dysuria R30.0 [facility] [facility] [address] [facility] [id number] [address] [place] [phone] 05 Jun, 2016 Acute non-recurrent maxillar y sinusitis J01.00 and Dysuria R30.0 [facility] [address] [place] [id number] [place] [phone] 16 May, 2016 [facility] [address] [place] [id number] [place] [address] May, [facility] [address] [address] Apr, Chronic prescription opiate use Z79.899 and Rheumatoid arthritis involving multiple sites with positive rheumatoid factor M05.89 [facility] [address] [address] Mar, [facility] [address] [place] [id number] [address] [place] [phone] Feb, Dizziness of unknown cause R 42 and Other chronic pain G89.29 [facility] [address] [place] [id number] [place] [phone] Feb, [facility] [address] [facility] [id number] [address] [place] [phone] Feb, Shortness of breath R06.02 [facility] [address] [facility] [id number] [address] [place] [phone] January, [facility] [address] [id number] [place] [phone] January, Rheumatoid arthritis 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.89 ; Chronic prescription opiate use Z79.899 ; Hyperlipidemia, unspecified hyperlipidemia E78.5 ; Cough R05 ; Exposure to pneumonia Z20.828 ; Diarrhea, unspecified type R19.7 ; Weight loss R63.4 ; Lumbago with sciatica, right side M54.41 and Lumbago with sciatica, left side M54.42 [facility] [address] [facility] [id number] [address] [place] [phone] Dec, [facility] [address] [facility] [id number] [address] [place] [phone] Dec, Bronchitis J40 [facility] [address] [place] [id number] [place] [address] Nov, [facility] [address] [place] [id number] [place] [phone] Nov, [facility] [address] [address] Nov, [facility] [address] [place] [id number] [place] [phone] Nov, Bloody diarrhea R19.7 ; [place] n wall thickening K63.9 ; Shortness of breath R06.02 and Bladder wall thickening N32.89 [facility] [id number] [place] [id number] Oct, Dental examination Z01.20 [facility] [address] [facility] [id number] [address] [place] [phone] Oct, [facility] [address] [facility] [id number] [address] [place] [phone] Oct, Toothache K08.8 [facility] [address] [id number] Oct, Dental examination Z01.20 [facility] [address] [facility] [id number] [address] [place] [phone] Oct, [facility] [address] [facility] [id number] [address] [place] [phone] 18 Sep, 2015 [facility] [address] [facility] [id number] [address] [place] [phone] 13 Sep, 2015 Burning with urination R30.0 [place] [address] [facility] [id number] [address] [place] [phone] Sep, Hematuria R31.9 ; Rheumatoid arthritis involving multiple sites with positive rheumatoid factor M05.89 and Rheumatoid arthritis flare M06.9 [place] [address] [facility] [id number] [address] [place] [phone] Aug, Hyperlipidemia, unspecified hyperlipidemia E78.5 and Hematuria R31.9 [place] [address] [facility] [id number] [address] [place] [phone] Aug, Hematuria R31.9 ; Chronic ki dney disease, stage 1 N18.1 and Hyperlipidemia, unspecified hyperlipidemia E78.5 [place] [address] [facility] [id number] [address] [place] [phone] Aug, Rheumatoid arthritis 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.89 ; Asthma exacerbation J45.901 ; Hematuria R31.9 ; Hyperlipidemia, unspecified hyperlipidemia E78.5 and Chronic kidney disease, stage 1 N18.1 [place] [address] [place] [id number] [place] [id number] Aug, [place] [address] [facility] [id number] [address] [place] [phone] Jul, [place] [address] [facility] [id number] [address] [place] [phone] Jul, Lumbosacral radiculopathy M5 4.17 [place] [address] [facility] [id number] [address] [place] [phone] Jul, [place] [address] [facility] [id number] [address] [place] [phone] Jun, Rheumatoid arthritis 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.89 ; Hyperlipidemia, unspecified hyperlipidemia E78.5 ; Lumbosacral radiculopathy M54.17 ; Carpal tunnel syndrome, right upper limb G56.01 and Carpal tunnel syndrome, left upper limb G56.02 [facility] [address] [id number] [address] [place] [phone] Jun, [facility] [address] [id number] [address] [place] [phone] May, Lumbar radicular pain 724.4 and Dysuria 788.1 [facility] [address] [id number] [address] [place] [phone] May, Rheumatoid arthritis 714.0 ; Lumbar radicular pain 724.4 ; Burn 949.0 and Thoracic back pain 724.1 [facility] [address] [facility] [id number] [address] [place] [phone] May, [facility] [address] [id number] [address] [place] [phone] May, [facility] [address] [id number] [address] [place] [phone] Apr, [facility] [address] [facility] [id number] [address] [place] [phone] Mar, Hyperlipidemia 272.4 [facility] [address] [facility] [id number] [address] [place] [phone] Mar, [facility] [address] [facility] [id number] [address] [place] [phone] Mar, [facility] [address] [facility] [id number] [address] [place] [phone] Mar, Diarrhea 787.91 ; Chronic ki dney disease, unspecified 585.9 ; Hyperlipidemia 272.4 and Asthma 493.90 [facility] [address] [facility] [id number] [address] [place] [phone] Mar, [facility] [address] [id number] [address] [place] [phone] Mar, Gastroenteritis 558.9 [facility] [address] [id number] [address] [place] [address], [place] [address] Feb, [facility] [address] [id number] [address] [place] [address], [place] [address] January, [facility] [address] [id number] [address] [place] [address], [place] [address] January, [facility] [address] [id number] [address] [place] [address], [place] [address] Dec, [facility] [address] [id number] [address] [place] [address], [place] [address] Dec, [facility] [address] [id number] [address] [place] [address], [place] [address] Nov, [facility] [address] [id number] [address] [place] [address], [place] [address] Nov, [facility] [address] [id number] [address] [place] [phone] Nov, [facility] [address] [id number] [address] [place] [address], [place] [address] Nov, [facility] [address] [id number] [address] [place] [phone] Nov, [facility] [address] [id number] [address] [place] [address], [place] [address] Nov, [facility] [address] [id number] [address] [place] [phone] Oct, [facility] [address] [id number] [address] [place] [address], [place] [address] Oct, [facility] [address] [id number] [address] [place] [phone] Sep, [facility] [address] [id number] [address] [place] [phone] Sep, [facility] [address] [id number] [address] [place] [address], [place] [address] Sep, [facility] [address] [id number] [address] [place] [address], [place] [address] Sep, [facility] [address] [id number] [address] [place] [address], [place] [address] Sep, [facility] [address] [id number] [address] [place] [address], [place] [address] Sep, [facility] [address] [id number] [address] [place] [address], [place] [address] Aug, [facility] [address] [id number] [address] [place] [address], [place] [address] Aug, [facility] [address] [id number] [address] [place] [address], [place] [address] Aug, [facility] [address] [id number] [address] [place] [address], [place] [address] Aug, [facility] [address] [id number] [address] [place] [address], [place] [address] Jul, [facility] [address] [id number] [address] [place] [address], [place] [address] Jul, [facility] [address] [id number] [address] [place] [address], [place] [address] Jul, [facility] [address] [id number] [address] [place] [address], [place] [address] Jul, [facility] [address] [id number] [address] [place] [address], [place] [address] Jul, [facility] [address] [id number] [address] [place] [address], [place] [address] Jul, [facility] [address] [id number] [address] [place] [address], [place] [address] Jul, [facility] [address] [id number] [address] [place] [phone] 05 Jul, 2014 [facility] [address] [id number] [address] [place] [address], [place] [address] Jul, [facility] [address] [id number] [address] [place] [address], [place] [address] Jun, [facility] [address] [id number] [address] [place] [address], [place] [address] 15 Jun, 2014 [facility] [address] [id number] [address] [place] [address], [place] [address] 15 Jun, 2014 [facility] [address] [id number] [address] [place] [address], [place] [address] 25 May, 2014 [facility] [address] [id number] [address] [place] [address], [place] [address] 25 May, 2013 [facility] [address] [id number] [address] [place] [address], [place] [address] 24 Sep, 2013 [facility] [address] [id number] [address] [place] [address], [place] [address] 24 Sep, 2013 [facility] [address] [id number] [address] [place] [address], [place] [address] 24 Sep, 2013 [facility] [address] [id number] [address] [place] [address], [place] [address] 24 Sep, 2013 [facility] [address] [id number] [address] [place] [address], [place] [address] 19 Sep, 2013 [facility] [address] [id number] [address] [place] [address], [place] [address] 19 Sep, 2013 [facility] [address] [id number] [address] [place] [address], [place] [address] 11 May, 2013 [facility] [address] [id number] [address] [place] [address], [place] [address] 11 Sep, 2013 [facility] [address] [id number] [address] [place] [address], [place] [address] 11 May, 2013 [facility] [address] [id number] [address] [place] [phone] May, [facility] [address] [id number] [address] [place] [phone] May, [facility] [address] [id number] [address] [place] [phone] May, [facility] [address] [id number] [address] [place] [phone] May, [facility] [address] [id number] [address] [place] [phone] May, [facility] [address] [id number] [address] [place] [phone] Apr, [facility] [address] [id number] [address] [place] [id number] Apr, [facility] [address] [id number] [address] [place] [phone] Aug, [facility] [address] [id number] [address] [place] [phone] Jul, IMMUNIZATIONS No Known Immunizations SOCIAL HISTORY Never Assessed REASON FOR VISIT PLAN OF CARE VITAL SIGNS MEDICATIONS No Known Medications RESULTS No Results PROCEDURES No Known [...]
--- OUTSIDE RECORDS SUMMARY | 2020-02-27 15:38 | XMS REPORT ---
Author Author Beba CORBIN [facility] Address [address] [place] [address] Care Team Providers Care Online Journalist Name Role Phone EMERALD EDWARD Unavailable PROBLEMS Type Condition ICD9-CM Code MRT63-JV Code Onset Dates Condition S tatus SNOMED Code Problem Rheumatoid arthritis 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.89 Active 138078644 Problem Vitamin D deficiency E55.9 Active 40633390 Problem Chronic prescription opiate use Z79.899 Active 862501385 Problem Atrophy of left kidney N26.1 Active 446738305 Problem Colon wall thickening K63.9 Active 126012243 Problem Bladder wall thickening N32.89 Active 406179727 Problem Gastroesophageal reflux disease, esophagitis pre sence not specified K21.9 Active 379332328 Problem Pernicious anemia D51.0 Active 84 817014 Problem Osteoporosis M81.0 Active 9847376 6 Problem Hyperlipidemia, unspecified hyperlipidemia E78.5 Active 01065395 Problem Asthma exacerbation J45.901 Active 422057044 Problem Severe episode of recurrent major depressive disorder, without psychotic features F33.2 Active 57575213 Problem Generalized anxiety disorder F41.1 A ctive 01736165 Problem Chronic respiratory failure with hypoxia J96.11 Active 176114659 Problem Chronic pain syndrome G89.4 Active 450709911 Problem Chronic constipation K59.00 Active 171530496 Problem COPD exacerbation J44.1 Active 19 3397420 Problem Moderate persistent asthma with acute exacerbation J45.41 Active 016322040216479 Problem Chronic kidney disease, stage 1 N18.1 Active 010127964 Problem Essential hypertension I10 Active 84488295 Problem Moderate persistent asthma without complication J4 5.40 Active 661596205 Problem Lumbago with sciatica, left side M54.42 Active 817146055 Problem Lumbago with sciatica, right side M54.41 Active 978747666827252 Problem Dependence on supplemental oxygen Z99.81 Active [id number] ALLERGIES No Information ENCOUNTERS Encounter Location Date Diagnosis [facility] [place] [address] [place] [phone] 09 Dec, 2019 Rheumatoid arthritis 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.89 [facility] [place] [address] [facility] [id number] [address] [place] [phone] Dec, [facility] [place] [address] [place] [id number] [place] [phone] Nov, Rheumatoid arthritis 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.89 ; Acute pain of right knee M25.561 ; Fever, unspecified fever cause R50.9 ; Essential hypertension I10 ; Hyperlipidemia, unspecified hyperlipidemia E78.5 and Cough R05 [facility] [place] [address] [place] [id number] [place] [phone] Nov, Rheumatoid arthritis 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.89 [place] [address] [place] [id number] [place] [phone] Oct, Rheumatoid arthritis 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.89 [facility] [place] [address] [place] [id number] [place] [phone] Sep, Rheumatoid arthritis 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.89 [facility] [place] [address] [place] [id number] [place] [phone] Aug, [facility] [address] [facility] [id number] [address] [place] [phone] Aug, COPD exacerbation J44.1 and Right otitis media with effusion H65.91 [facility] [place] [address] [place] [id number] [place] [id number] Aug, Rheumatoid arthritis 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.89 [facility] [place] [address] [place] [id number] [place] [phone] Aug, [facility] [place] [address] [place] [id number] [place] [phone] Aug, Rheumatoid arthritis 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.[address] [place] [address] [facility] [id number] [address] [place] [phone] Jul, Essential hypertension I10 [facility] [place] [address] [place] [id number] [place] [phone] Jul, Severe episode of recurrent major depressive disorder, without psychotic features F33.2 [place] [address] [place] [id number] [place] [phone] Jul, Shortness of breath at rest R06.02 ; Cough R05 ; Rheumatoid arthritis involving multiple sites with positive rheumatoid factor M05.89 ; Chronic respiratory failure with hypoxia J96.11 ; Severe episode of recurrent major depressive disorder, without psychotic features F33.2 and Chronic pain syndrome G89.4 [place] [address] [place] [id number] [place] [phone] Jul, Gastroesophageal reflux dise ase, esophagitis presence not specified K21.9 ; Shortness of breath at rest R06.02 and Rheumatoid arthritis involving multiple sites with positive rheumatoid factor M05.89 [place] [address] [place] [id number] [place] [phone] Jun, [place] [address] [facility] [id number] [address] [place] [phone] Jun, Rheumatoid arthritis 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.89 [place] [address] [facility] [id number] [address] [place] [phone] Jun, Rheumatoid arthritis 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.89 [place] [address] [facility] [id number] [address] [place] [phone] Jun, Laryngitis J04.0 ; Cough R05 ; Acute non-recurrent maxillary sinusitis J01.00 ; Severe episode of recurrent major depressive disorder, without psychotic features F33.2 and Chronic respiratory failure with hypoxia J96.11 [place] [address] [facility] [id number] [address] [place], [place] [phone] 17 May, 2019 Rheumatoid arthritis 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.89 [facility] [place] [address] [facility] [id number] [address] [place] [phone] 16 May, 2019 Shortness of breath R06.02 [facility] [place] [address] [facility] [id number] [address] [place] [phone] 13 May, 2019 Shortness of breath R06.02 [facility] [place] [address] [facility] [id number] [address] [place] [phone] 13 May, 2019 Shortness of breath at rest R06.02 ; Tachypnea on examination R06.82 ; Cough, persistent R05 and Dysuria R30.0 [facility] [place] [address] [place] [id number] [place] [phone] Apr, Rheumatoid arthritis 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.89 [facility] [place] [address] [place] [id number] [place] [phone] Apr, [facility] [place] [address] [place] [id number] [place] [phone] Apr, [facility] [place] [address] [place] [id number] [place] [phone] Mar, Rheumatoid arthritis 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.89 and Chronic constipation K59.00 [facility] [place] [address] [facility] [id number] [address] [place] [phone] Mar, [facility] [place] [address] [facility] [id number] [address] [place] [phone] Mar, Dizziness R42 and Nausea and vomiting, intractability of vomiting not specified, unspecified vomiting type R11.2 [facility] [place] [address] [facility] [id number] [address] [place] [phone] Feb, Chronic pain syndrome G89.4 [place] [id number] [address] January, Chronic pain syndrome G89.4 [facility] [place] [address] [facility] [id number] [address] [place] [phone] Dec, [facility] [place] [address] [facility] [id number] [address] [place] [phone] Dec, [facility] [place] [address] [place] [id number] [place] [address] Dec, Asthma exacerbation J45.901 ; Essential hypertension I10 ; Hyperlipidemia, unspecified hyperlipidemia E78.5 ; Rheumatoid arthritis involving multiple sites with positive rheumatoid factor M05.89 ; Chronic pain syndrome G89.4 ; Chronic kidney disease, stage 1 N18.1 ; Chronic respiratory failure with hypoxia J96.11 and Dependence on supplemental oxygen Z99.81 [facility] [place] [address] [place] [id number] [place] [phone] Dec, Chronic pain syndrome G89.4 [facility] [place] [address] [place] [id number] [place] [phone] Nov, Chronic pain syndrome G89.4 [facility] [place] [address] [place] [id number] [place] [phone] Nov, [facility] [place] [address] [place] [id number] [place] [phone] Oct, Chronic pain syndrome G89.4 [facility] [place] [address] [place] [id number] [place] [phone] Oct, [facility] [place] [address] [place] [id number] [place] [phone] Oct, Viral upper respiratory trac t infection J06.9 ; Chronic constipation K59.00 ; Severe episode of recurrent major depressive disorder, without psychotic features F33.2 ; Moderate persistent asthma with acute exacerbation J45.41 ; Essential hypertension I10 ; Gastroesophageal reflux disease, esophagitis presence not specified K21.9 and Hyperlipidemia, unspecified hyperlipidemia E78.5 [facility] [place] [address] [place] [id number] [place] [phone] 05 Oct, 2018 [facility] [place] [address] [id number] [address] [place] [phone] Sep, Chronic pain syndrome G89.4 [facility] [place] [address] [id number] [address] [place] [phone] Sep, Rheumatoid arthritis 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.89 ; Chronic constipation K59.00 ; Gastroesophageal reflux disease, esophagitis presence not specified K21.9 ; Asthma exacerbation J45.901 ; Severe episode of recurrent major depressive disorder, without psychotic features F33.2 ; Ganglion cyst M67.40 and Chronic prescription opiate use Z79.899 [facility] [address] [facility] [id number] [address] [place] [phone] Aug, Cough R05 and Moderate persi stent asthma with acute exacerbation J45.41 [facility] [place] [address] [facility] [id number] [address] [place] [phone] Aug, Chronic pain syndrome G89.4 [facility] [place] [address] [facility] [id number] [address] [place] [phone] Jul, Chronic pain syndrome G89.4 [facility] [address] [facility] [id number] [address] [place] [phone] Jul, Acute nasopharyngitis J00 [facility] [place] [address] [facility] [id number] [address] [place] [phone] Jun, [facility] [place] [address] [facility] [id number] [address] [place] [phone] Jun, Chronic pain syndrome G89.4 [facility] [place] [address] [facility] [id number] [address] [place] [phone] 21 May, 2018 Chronic pain syndrome G89.4 [facility] [place] [address] [facility] [id number] [address] [place] [phone] 14 May, 2018 [facility] [place] [address] [facility] [id number] [address] [place] [phone] 13 May, 2018 [facility] [place] [address] [place] [id number] [place] [id number] 13 May, 2018 Moderate persistent asthma w ith acute exacerbation J45.41 and Rheumatoid arthritis involving multiple sites with positive rheumatoid factor M05.89 [facility] [place] [address] [id number] [address] [place] [phone] 12 May, 2018 Moderate persistent asthma w ith acute exacerbation J45.41 and Hypoxia R09.02 [facility] [place] [address] [facility] [id number] [address] [place] [phone] Apr, Chronic pain syndrome G89.4 [facility] [place] [address] [facility] [id number] [address] [place] [phone] Mar, High ankle sprain of right l ower extremity, subsequent encounter S93.431D ; Lumbago with sciatica, left side M54.42 and Lumbago with sciatica, right side M54.41 [facility] [place] [address] [facility] [id number] [address] [place] [phone] Mar, [facility] [place] [address] [facility] [id number] [address] [place] [phone] Mar, Chronic pain syndrome G89.4 [facility] [place] [address] [facility] [id number] [address] [place] [phone] Mar, [facility] [place] [address] [facility] [id number] [address] [place] [phone] Mar, Asthma exacerbation J45.901 and Sprain of right ankle, unspecified ligament, subsequent encounter S93.401D [facility] [address] [id number] [address] [place] [phone] 30 Feb, 2018 Injury of right ankle, initi al encounter S99.911A [facility] [place] [address] [facility] [id number] [address] [place] [phone] Feb, Chronic pain syndrome G89.4 [facility] [place] [address] [facility] [id number] [address] [place] [phone] Feb, Chronic pain syndrome G89.4 [place] [id number] [place] [phone] Feb, Moderate persistent asthma w ith acute exacerbation J45.41 and Persistent cough for 3 weeks or longer R05 [place] [address] [place] [id number] [place] [phone] January, [place] [address] [place] [id number] [place] [phone] January, Moderate persistent asthma w ith acute exacerbation J45.41 [place] [address] [address] January, Chronic pain syndrome G89.[address] [address] January, Tachycardia R00.0 and Modera te persistent asthma with acute exacerbation J45.41 [place] [address] [address] January, Tachycardia R00.0 ; Moderate persistent asthma with acute exacerbation J45.41 ; Gastroesophageal reflux disease, esophagitis presence not specified K21.9 ; Hyperlipidemia, unspecified hyperlipidemia E78.5 and Chronic pain syndrome G89.4 [place] [address] [address] Dec, Medicare annual wellness vis it, initial [...] immunization Z23 and Chronic pain syndrome G89.4 [place] [address] [place] [id number] [place] [phone] Dec, Chronic pain syndrome G89.4 [place] [address] [phone] Dec, [facility] [place] [address] [facility] [id number] [address] [place] [phone] Nov, [facility] [place] [address] [facility] [id number] [address] [place] [phone] Nov, Chronic pain syndrome G89.4 [facility] [place] [address] [facility] [id number] [address] [place] [phone] Oct, Chronic pain syndrome G89.4 [facility] [place] [address] [facility] [id number] [address] [place] [phone] Oct, Chronic kidney disease, stag e 1 N18.1 [facility] [place] [address] [facility] [id number] [address] [place] [address] Oct, Chronic prescription opiate use Z79.899 ; Cough R05 ; Asthma exacerbation J45.901 ; Elevated liver enzymes R74.8 ; Rheumatoid arthritis involving multiple sites with positive rheumatoid factor M05.89 and Chronic pain syndrome G89.4 [facility] [place] [address] [facility] [id number] [address] [place] [phone] Sep, Chronic pain syndrome G89.4 [facility] [place] [address] [facility] [id number] [address] [place] [phone] Sep, [facility] [place] [address] [facility] [id number] [address] [place] [phone] Aug, Acute bronchitis, unspecifie d organism J20.9 [facility] [place] [address] [facility] [id number] [address] [place] [phone] Aug, Chronic pain syndrome G89.4 [facility] [place] [address] [facility] [id number] [address] [place] [phone] Jul, Chronic pain syndrome G89.4 [facility] [place] [address] [facility] [id number] [address] [place] [phone] Jun, Chronic pain syndrome G89.4 [facility] [place] [address] [place] [id number] [place] [address] May, Rheumatoid arthritis 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.89 [place] [address] [place] [id number] [place] [address] May, Gastroesophageal reflux dise ase, esophagitis presence not specified K21.9 and Chronic pain syndrome G89.4 [place] [address] [address] May, [place] [address] [address] May, Esophageal candidiasis B37.8 1 and Chronic kidney disease, stage 1 N18.1 [place] [address] [address] May, Chronic kidney disease, stag e 1 N18.1 [place] [address] [address] May, Cough R05 ; Fever, unspecifi ed fever cause R50.9 ; Rheumatoid arthritis involving multiple sites with positive rheumatoid factor M05.89 and Chronic prescription opiate use Z79.899 [place] [address] [address] Apr, [place] [address] [address] Apr, Cough R05 [place] [address] [address] Apr, Asthma exacerbation J45.901 [place] [address] [place] [id number] [place] [address] Apr, [place] [address] [address] Apr, Generalized anxiety disorder F41.1 and Severe episode of recurrent major depressive disorder, without psychotic features F33.2 [place] [address] [address] Mar, [facility] [place] [address] [facility] [id number] [address] [place] [phone] Feb, Chronic pain syndrome G89.4 [facility] [place] [address] [facility] [id number] [address] [place] [phone] Feb, Acute non-recurrent maxillar y sinusitis J01.00 [facility] [place] [address] [facility] [id number] [address] [place] [phone] Feb, Acute non-recurrent frontal sinusitis J01.10 [facility] [place] [address] [facility] [id number] [address] [place] [address] Feb, Chronic pain syndrome G89.4 [facility] [place] [address] [facility] [id number] [address] [place] [address] January, Acute cystitis with hematuri a N30.01 [place] [address] [facility] [id number] [address] [place] [address] January, Acute cystitis with hematuri a N30.01 ; Dysuria R30.0 and Moderate persistent asthma with acute exacerbation J45.41 [place] [address] [facility] [id number] [address] [place] [address] January, [place] [address] [facility] [id number] [address] [place] [address] January, Chronic pain syndrome G89.4 [facility] [place] [address] [facility] [id number] [address] [place] [address] January, Asthma exacerbation J45.901 [place] [address] [place] [id number] [place] [phone] January, Asthma exacerbation J45.901 [place] [address] [place] [id number] [place] [address] Dec, Cough R05 ; Numbness in both hands R20.0 ; Ground glass opacity present on imaging of lung R91.8 ; Hypoxia R09.02 and Asthma exacerbation J45.[address] [place] [address] [facility] [id number] [address] [place] [address] Dec, Chronic pain syndrome G89.4 [place] [address] [place] [id number] [place] [address] Nov, Chronic prescription opiate use Z79.899 ; Rheumatoid arthritis involving multiple sites with positive rheumatoid factor M05.89 ; Moderate persistent asthma with acute exacerbation J45.41 ; Pneumonia of right lower lobe due to infectious organism J18.1 ; Chronic pain syndrome G89.4 ; Gastroesophageal reflux disease, esophagitis presence not specified K21.9 and Hyperlipidemia, unspecified hyperlipidemia E78.5 [place] [address] [address] Nov, Rheumatoid arthritis 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.89 [place] [address] [address] Oct, [place] [address] [place] [id number] [place] [address] Oct, Essential hypertension I10 [place] [address] [address] Sep, Hypoxia R09.[address] ass opacity present on imaging of lung R91.8 [place] [address] [address] Sep, Moderate persistent asthma w ith acute exacerbation J45.41 [facility] [place] [address] [id number] Sep, [place] [address] [place] [id number] [place] [phone] Sep, Chronic constipation K59.00 and Moderate persistent asthma with acute exacerbation J45.41 [place] [address] [place] [id number] [address] [place] [id number] Sep, Moderate persistent asthma w ith acute exacerbation J45.41 [place] [address] [place] [address] Aug, [facility] [place] [address] [facility] [id number] [address] [place] [phone] Aug, [facility] [place] [address] [facility] [id number] [address] [place] [phone] Aug, [facility] [place] [address] [facility] [id number] [address] [place] [phone] Aug, Rheumatoid arthritis 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.89 ; Essential hypertension I10 ; Hyperlipidemia, unspecified hyperlipidemia E78.5 ; Chronic constipation K59.00 and Moderate persistent asthma with acute exacerbation J45.41 [place] [address] [facility] [id number] [address] [place] [phone] Aug, Bronchitis J40 [facility] [place] [address] [place] [id number] [address] [place] [phone] Aug, Rheumatoid arthritis 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.89 [facility] [place] [address] [facility] [id number] [address] [place] [phone] Aug, Pharyngitis, unspecified pablito ology J02.9 and Acute nasopharyngitis J00 [facility] [place] [address] [facility] [id number] [address] [place] [phone] Aug, [facility] [place] [address] [place] [id number] [address] [place] [phone] Jul, [facility] [place] [address] [place] [id number] [place] [phone] Jul, Rheumatoid arthritis 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.89 ; Essential hypertension I10 ; Hyperlipidemia, unspecified hyperlipidemia E78.5 ; Rash R21 ; Mild persistent asthma with acute exacerbation J45.31 ; Hematuria R31.9 ; Osteoporosis M81.0 and Gastroesophageal reflux disease, esophagitis presence not specified K21.9 [facility] [place] [address] [facility] [id number] [address] [place] [phone] Jun, [facility] [place] [address] [facility] [id number] [address] [place] [phone] Jun, Dysuria R30.0 [facility] [address] [facility] [id number] [address] [place] [phone] 05 Jun, 2016 Acute non-recurrent maxillar y sinusitis J01.00 and Dysuria R30.0 [facility] [place] [address] [facility] [id number] [address] [place] [id number] 16 May, 2016 [facility] [place] [address] [facility] [id number] [address] [place] [phone] May, [facility] [place] [address] [place] [id number] [place] [phone] Apr, Chronic prescription opiate use Z79.899 and Rheumatoid arthritis involving multiple sites with positive rheumatoid factor M05.89 [facility] [place] [address] [place] [id number] [address] [place] [phone] Mar, [facility] [place] [address] [place] [id number] [address] [place] [phone] Feb, Dizziness of unknown cause R 42 and Other chronic pain G89.29 [place] [address] [place] [id number] [address] [place] [phone] Feb, [facility] [place] [address] [place] [id number] [address] [place] [phone] Feb, Shortness of breath R06.02 [facility] [place] [address] [place] [id number] [address] [place] [phone] January, [place] [address] [place] [id number] [address] [place] [phone] January, Rheumatoid arthritis 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.89 ; Chronic prescription opiate use Z79.899 ; Hyperlipidemia, unspecified hyperlipidemia E78.5 ; Cough R05 ; Exposure to pneumonia Z20.828 ; Diarrhea, unspecified type R19.7 ; Weight loss R63.4 ; Lumbago with sciatica, right side M54.41 and Lumbago with sciatica, left side M54.42 [facility] [place] [address] [facility] [id number] [address] [place] [phone] Dec, [facility] [place] [address] [facility] [id number] [address] [place] [phone] Dec, Bronchitis J40 [facility] [place] [address] [facility] [id number] [address] [place] [phone] Nov, [facility] [place] [address] [facility] [id number] [address] [place] [phone] Nov, [facility] [place] [address] [facility] [id number] [address] [place] [phone] Nov, [facility] [place] [address] [facility] [id number] [address] [place] [phone] Nov, Bloody diarrhea R19.7 ; [place] n wall thickening K63.9 ; Shortness of breath R06.02 and Bladder wall thickening N32.89 [facility] [address] [place] [id number] [place] [id number] 15 Oct, 2015 Dental examination Z01.20 [facility] [place] [address] [facility] [id number] [address] [place] [phone] 15 Oct, 2015 [facility] [place] [address] [facility] [id number] [address] [place] [phone] 15 Oct, 2015 Toothache K08.8 [facility] [address] [place] [id number] [place] [id number] 11 Oct, 2015 Dental examination Z01.20 [facility] [place] [address] [facility] [id number] [address] [place] [phone] 02 Oct, 2015 [facility] [place] [address] [facility] [id number] [address] [place] [phone] Sep, [facility] [place] [address] [facility] [id number] [address] [place] [id number] Sep, Burning with urination R30.0 [place] [address] [id number] [address] [place] [phone] Sep, Hematuria R31.9 ; Rheumatoid arthritis involving multiple sites with positive rheumatoid factor M05.89 and Rheumatoid arthritis flare M06.9 [place] [address] [id number] [address] [place] [phone] Aug, Hyperlipidemia, unspecified hyperlipidemia E78.5 and Hematuria R31.9 [place] [address] [id number] [address] [place] [phone] Aug, Hematuria R31.9 ; Chronic ki dney disease, stage 1 N18.1 and Hyperlipidemia, unspecified hyperlipidemia E78.5 [place] [address] [facility] [id number] [address] [place] [phone] Aug, Rheumatoid arthritis 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.89 ; Asthma exacerbation J45.901 ; Hematuria R31.9 ; Hyperlipidemia, unspecified hyperlipidemia E78.5 and Chronic kidney disease, stage 1 N18.1 [place] [address] [facility] [id number] [address] [place] [phone] Aug, [place] [address] [facility] [id number] [address] [place] [phone] Jul, [place] [address] [facility] [id number] [address] [place] [phone] Jul, Lumbosacral radiculopathy M5 4.17 [place] [address] [facility] [id number] [address] [place] [phone] Jul, [place] [address] [facility] [id number] [address] [place] [phone] Jun, Rheumatoid arthritis 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.89 ; Hyperlipidemia, unspecified hyperlipidemia E78.5 ; Lumbosacral radiculopathy M54.17 ; Carpal tunnel syndrome, right upper limb G56.01 and Carpal tunnel syndrome, left upper limb G56.02 [place] [address] [facility] [id number] [address] [place] [phone] Jun, [facility] [place] [address] [id number] [address] [place] [phone] May, Lumbar radicular pain 724.4 and Dysuria 788.1 [facility] [place] [address] [id number] [address] [place] [phone] May, Rheumatoid arthritis 714.0 ; Lumbar radicular pain 724.4 ; Burn 949.0 and Thoracic back pain 724.1 [facility] [place] [address] [id number] [address] [place] [phone] May, [facility] [place] [address] [id number] [address] [place] [phone] May, [facility] [place] [address] [facility] [id number] [address] [place] [phone] Apr, [facility] [place] [address] [id number] [address] [place] [phone] Mar, Hyperlipidemia 272.4 [facility] [place] [address] [facility] [id number] [address] [place] [phone] Mar, [facility] [place] [address] [facility] [id number] [address] [place] [phone] Mar, [facility] [place] [address] [facility] [id number] [address] [place] [phone] Mar, Diarrhea 787.91 ; Chronic ki dney disease, unspecified 585.9 ; Hyperlipidemia 272.4 and Asthma 493.90 [facility] [place] [address] [facility] [id number] [address] [place] [phone] Mar, [facility] [place] [address] [facility] [id number] [address] [place] [phone] Mar, Gastroenteritis 558.9 [facility] [place] [address] [facility] [id number] [address] [place] [phone] Feb, [facility] [place] [address] [id number] [address] [place] [address] [place] [id number] January, [facility] [address] [id number] [address] [place] [address], [place] [address] January, [facility] [address] [id number] [address] [place] [address], [place] [address] Dec, [facility] [address] [id number] [address] [place] [address], [place] [address] Dec, [facility] [address] [id number] [address] [place] [address], [place] [address] Nov, [facility] [address] [id number] [address] [place] [address], [place] [address] Nov, [facility] [address] [id number] [address] [place] [address], [place] [address] Nov, [facility] [address] [id number] [address] [place] [address], [place] [address] Nov, [facility] [address] [id number] [address] [place] [address], [place] [address] Nov, [facility] [address] [id number] [address] [place] [address], [place] [address] Nov, [facility] [address] [id number] [address] [place] [address], [place] [address] Oct, [facility] [address] [id number] [address] [place] [address], [place] [address] Oct, [facility] [address] [id number] [address] [place] [address], [place] [address] Sep, [facility] [address] [id number] [address] [place] [address], [place] [address] Sep, [facility] [address] [id number] [address] [place] [address], [place] [address] Sep, [facility] [address] [id number] [address] [place] [address], [place] [address] Sep, [facility] [address] [id number] [address] [place] [address], [place] [address] Sep, [facility] [address] [id number] [address] [place] [address], [place] [address] Sep, [facility] [address] [id number] [address] [place] [address], [place] [address] Aug, [facility] [address] [id number] [address] [place] [address], [place] [address] Aug, [facility] [address] [id number] [address] [place] [address], [place] [address] Aug, [facility] [address] [id number] [address] [place] [address], [place] [address] Aug, [facility] [address] [id number] [address] [place] [address], [place] [address] Jul, [facility] [address] [id number] [address] [place] [address], [place] [address] Jul, [facility] [address] [id number] [address] [place] [address], [place] [address] Jul, [facility] [address] [id number] [address] [place] [address], [place] [address] Jul, [facility] [address] [id number] [address] [place] [address], [place] [address] Jul, [facility] [address] [id number] [address] [place] [address], [place] [address] Jul, [facility] [address] [id number] [address] [place] [address], [place] [address] Jul, [facility] [address] [id number] [address] [place] [address], [place] [address] Jul, [facility] [address] [id number] [address] [place] [address], [place] [address] Jul, [facility] [address] [id number] [place] [address] 31 Jun, 2014 [facility] [address] [id number] [address] [place] [address], [place] [address] 15 Jun, 2014 [facility] [address] [id number] [address] [place] [address], [place] [address] 15 Jun, 2014 [facility] [address] [id number] [address] [place] [address], [place] [address] 25 May, 2013 [facility] [address] [id number] [address] [place] [address], [place] [address] 25 May, 2013 [facility] [address] [id number] [address] [place] [address], [place] [address] 24 May, 2013 [facility] [address] [id number] [address] [place] [address], [place] [address] 24 May, 2013 [facility] [address] [id number] [address] [place] [address], [place] [address] 24 May, 2013 [facility] [address] [id number] [address] [place] [address], [place] [address] 24 May, 2013 [facility] [address] [id number] [address] [place] [address], [place] [address] 19 May, 2013 [facility] [address] [id number] [address] [place] [address], [place] [address] 19 May, 2013 [facility] [address] [id number] [address] [place] [address], [place] [address] 11 May, 2013 [facility] [address] [id number] [address] [place] [address], [place] [address] 11 May, 2013 [facility] [address] [id number] [address] [place] [address], [place] [address] 11 May, 2013 [facility] [address] [id number] [address] [place] [address], [place] [address] 11 May, 2013 [facility] [address] [id number] [address] [place] [address], [place] [address] 10 May, 2013 [facility] [address] [id number] [address] [place] [id number] May, [facility] [address] [id number] [address] [place] [phone] May, [facility] [place] [address] [id number] [address] [place] [phone] May, [facility] [place] [address] [facility] [id number] [address] [place] [id number] Apr, [facility] [place] [address] [facility] [id number] [address] [place] [id number] Apr, [facility] [place] [address] [facility] [id number] [address] [place] [id number] Aug, [facility] [place] [address] [facility] [id number] [address] [place] [id number] Jul, IMMUNIZATIONS No Known Immunizations SOCIAL HISTORY [...]
--- OUTSIDE RECORDS SUMMARY | 2020-02-27 15:39 | XMS REPORT ---
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 Name Role Phone EMERALD EDWARD Unavailable PROBLEMS Type Condition ICD9-CM Code EDC26-SW Code Onset Dates Condition S tatus SNOMED Code Problem Essential hypertension I10 Active 20150123 Problem Chronic constipation K59.00 Active 885064496 Problem Atrophy of left kidney N26.1 Active 817920057 Problem Vitamin D deficiency E55.9 Active 04575636 Problem Colon wall thickening K63.9 Active 626207281 Problem Chronic prescription opiate use Z79.899 Active 695029517 Problem Gastroesophageal reflux disease, esophagitis pre sence not specified K21.9 Active 193317957 Problem Hyperlipidemia, unspecified hyperlipidemia E78.5 Active 66812715 Problem Bladder wall thickening N32.89 Active 874299422 Problem Chronic pain syndrome G89.4 Active 233742948 Problem Asthma exacerbation J45.901 Active 470774981 Problem Severe episode of recurrent major depressive disorder, without psychotic features F33.2 Active 25423014 Problem Dependence on supplemental oxygen Z99.81 Active 834989134477 Problem Moderate persistent asthma with acute exacerbation J45.41 Active [id number] Problem Rheumatoid arthritis 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.89 Active 410792711 Problem Chronic respiratory failure with hypoxia J96.11 Active 139451404 Problem Osteoporosis M81.0 Active 9824578 6 Problem Pernicious anemia D51.0 Active 84 094859 Problem Chronic kidney disease, stage 1 N18.1 Active 357830704 Problem Generalized anxiety disorder F41.1 A ctive 58916686 Problem Moderate persistent asthma without complication J4 5.40 Active 122802424 Problem Lumbago with sciatica, left side M54.42 Active 966764721 Problem Lumbago with sciatica, right side M54.41 Active [id number] ALLERGIES No Information ENCOUNTERS Encounter Location Date Diagnosis [facility] [address] [facility] [id number] [address] [place] [address] 17 May, 2019 Rheumatoid arthritis 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.89 [facility] [address] [facility] [id number] [address] [place] [phone] 16 May, 2019 Shortness of breath R06.02 [facility] [address] [facility] [id number] [address] [place] [address] 13 May, 2019 Shortness of breath R06.02 [facility] [address] [facility] [id number] [address] [place] [address] 13 May, 2019 Shortness of breath at rest R06.02 ; Tachypnea on examination R06.82 ; Cough, persistent R05 and Dysuria R30.0 [facility] [address] [facility] [id number] [address] [place] [address] Apr, Rheumatoid arthritis 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.89 [facility] [address] [facility] [id number] [address] [place] [address] Apr, [facility] [address] [facility] [id number] [address] [place] [address] Apr, [facility] [address] [facility] [id number] [address] [place] [address] Mar, Rheumatoid arthritis 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.89 and Chronic constipation K59.00 [facility] [address] [facility] [id number] [address] [place] [address] Mar, [facility] [address] [facility] [id number] [address] [place] [address] Mar, Dizziness R42 and Nausea and vomiting, intractability of vomiting not specified, unspecified vomiting type R11.2 [facility] [address] [facility] [id number] [address] [place] [address] Feb, Chronic pain syndrome G89.[address] [address] January, Chronic pain syndrome G89.4 [facility] [address] [place] [id number] [address] [place] [id number] Dec, [facility] [address] [place] [id number] [address] [place] [address] Dec, [facility] [address] [place] [id number] [address] [place] [address] Dec, Asthma exacerbation J45.901 ; Essential hypertension I10 ; Hyperlipidemia, unspecified hyperlipidemia E78.5 ; Rheumatoid arthritis involving multiple sites with positive rheumatoid factor M05.89 ; Chronic pain syndrome G89.4 ; Chronic kidney disease, stage 1 N18.1 ; Chronic respiratory failure with hypoxia J96.11 and Dependence on supplemental oxygen Z99.81 [place] [address] [place] [id number] [address] [place] [address] Dec, Chronic pain syndrome G89.4 [place] [address] [place] [id number] [address] [place] [address] Nov, Chronic pain syndrome G89.4 [place] [address] [place] [id number] [address] [place] [address] Nov, [place] [address] [place] [id number] [address] [place] [address] Oct, Chronic pain syndrome G89.4 [place] [address] [place] [id number] [address] [place] [address] Oct, [place] [address] [place] [id number] [address] [place] [address] 11 Oct, 2018 Viral upper respiratory trac t infection J06.9 ; Chronic constipation K59.00 ; Severe episode of recurrent major depressive disorder, without psychotic features F33.2 ; Moderate persistent asthma with acute exacerbation J45.41 ; Essential hypertension I10 ; Gastroesophageal reflux disease, esophagitis presence not specified K21.9 and Hyperlipidemia, unspecified hyperlipidemia E78.5 [place] [address] [place] [id number] [address] [place] [address] 05 Oct, 2018 [facility] [address] [facility] [id number] [address] [place] [address] Sep, Chronic pain syndrome G89.4 [facility] [address] [facility] [id number] [address] [place] [address] 15 Sep, 2018 Rheumatoid arthritis 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.89 ; Chronic constipation K59.00 ; Gastroesophageal reflux disease, esophagitis presence not specified K21.9 ; Asthma exacerbation J45.901 ; Severe episode of recurrent major depressive disorder, without psychotic features F33.2 ; Ganglion cyst M67.40 and Chronic prescription opiate use Z79.899 [facility] [address] [facility] [id number] [address] [place] [address] Aug, Cough R05 and Moderate persi stent asthma with acute exacerbation J45.41 [facility] [address] [place] [id number] [address] [place] [address] Aug, Chronic pain syndrome G89.4 [facility] [address] [place] [id number] [address] [place] [address] Jul, Chronic pain syndrome G89.4 [facility] [address] [place] [id number] [address] [place] [address] Jul, Acute nasopharyngitis J00 [facility] [address] [facility] [id number] [address] [place] [address] Jun, [facility] [address] [place] [id number] [address] [place] [address] Jun, Chronic pain syndrome G89.4 [facility] [address] [facility] [id number] [address] [place] [address] 21 May, 2018 Chronic pain syndrome G89.4 [facility] [address] [facility] [id number] [address] [place] [address] 14 May, 2018 [facility] [address] [place] [id number] [address] [place] [address] 13 May, 2018 [facility] [address] [id number] [address] [place] [address] May, Moderate persistent asthma w ith acute exacerbation J45.41 and Rheumatoid arthritis involving multiple sites with positive rheumatoid factor M05.89 [facility] [address] [id number] [address] [place] [address] May, Moderate persistent asthma w ith acute exacerbation J45.41 and Hypoxia R09.02 [facility] [address] [id number] [address] [place] [address] Apr, Chronic pain syndrome G89.4 [place] [address] [facility] [id number] [address] [place] [address] Mar, High ankle sprain of right l ower extremity, subsequent encounter S93.431D ; Lumbago with sciatica, left side M54.42 and Lumbago with sciatica, right side M54.41 [facility] [address] [id number] [address] [place] [address] Mar, [place] [address] [facility] [id number] [address] [place] [address] Mar, Chronic pain syndrome G89.4 [facility] [address] [facility] [id number] [address] [place] [address] Mar, [facility] [address] [facility] [id number] [address] [place] [address] Mar, Asthma exacerbation J45.901 and Sprain of right ankle, unspecified ligament, subsequent encounter S93.401D [facility] [address] [id number] [address] [place] [address] Feb, Injury of right ankle, initi al encounter S99.911A [facility] [address] [facility] [id number] [address] [place] [phone] Feb, Chronic pain syndrome G89.4 [facility] [address] [facility] [id number] [address] [place] [address] Feb, Chronic pain syndrome G89.4 [place] [id number] [place] [address] Feb, Moderate persistent asthma w ith acute exacerbation J45.41 and Persistent cough for 3 weeks or longer R05 [place] [address] [facility] [id number] [address] [place] [address] January, [place] [address] [address] January, Moderate persistent asthma w ith acute exacerbation J45.41 [place] [address] [place] [id number] [address] [place] [address] January, Chronic pain syndrome G89.4 [place] [address] [address] January, Tachycardia R00.0 and Modera te persistent asthma with acute exacerbation J45.41 [place] [address] [address] January, Tachycardia R00.0 ; Moderate persistent asthma with acute exacerbation J45.41 ; Gastroesophageal reflux disease, esophagitis presence not specified K21.9 ; Hyperlipidemia, unspecified hyperlipidemia E78.5 and Chronic pain syndrome G89.4 [place] [address] [place] [id number] [address] [place] [address] Dec, Medicare annual wellness vis it, initial [...] immunization Z23 and Chronic pain syndrome G89.4 [place] [address] [place] [id number] [address] [place] [address] Dec, Chronic pain syndrome G89.4 [place] [address] [place] [id number] [address] [place] [address] Dec, [facility] [address] [facility] [id number] [address] [place] [phone] Nov, [facility] [address] [facility] [id number] [address] [place] [address] Nov, Chronic pain syndrome G89.4 [facility] [address] [facility] [id number] [address] [place] [address] Oct, Chronic pain syndrome G89.4 [facility] [address] [facility] [id number] [address] [place] [address] Oct, Chronic kidney disease, stag e 1 N18.1 [facility] [address] [facility] [id number] [address] [place] [address] Oct, Chronic prescription opiate use Z79.899 ; Cough R05 ; Asthma exacerbation J45.901 ; Elevated liver enzymes R74.8 ; Rheumatoid arthritis involving multiple sites with positive rheumatoid factor M05.89 and Chronic pain syndrome G89.4 [facility] [address] [facility] [id number] [address] [place] [address] Sep, Chronic pain syndrome G89.4 [facility] [address] [facility] [id number] [address] [place] [address] Sep, [facility] [address] [facility] [id number] [address] [place] [address] Aug, Acute bronchitis, unspecifie d organism J20.9 [facility] [address] [facility] [id number] [address] [place] [address] Aug, Chronic pain syndrome G89.4 [facility] [address] [facility] [id number] [address] [place] [address] Jul, Chronic pain syndrome G89.4 [facility] [address] [facility] [id number] [address] [place] [address] Jun, Chronic pain syndrome G89.4 [place] [address] [place] [id number] [address] [place] [address] 29 May, 2017 Rheumatoid arthritis 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.89 [place] [address] [address] May, Gastroesophageal reflux dise ase, esophagitis presence not specified K21.9 and Chronic pain syndrome G89.4 [place] [address] [address] May, [place] [address] [address] 12 May, 2017 Esophageal candidiasis B37.8 1 and Chronic kidney disease, stage 1 N18.1 [place] [address] [address] 11 May, 2017 Chronic kidney disease, stag e 1 N18.1 [place] [address] [address] May, Cough R05 ; Fever, unspecifi ed fever cause R50.9 ; Rheumatoid arthritis involving multiple sites with positive rheumatoid factor M05.89 and Chronic prescription opiate use Z79.899 [place] [address] [address] Apr, [place] [address] [address] Apr, Cough R05 [place] [address] [address] Apr, Asthma exacerbation J45.901 [place] [address] [address] Apr, [place] [address] [address] Apr, Generalized anxiety disorder F41.1 and Severe episode of recurrent major depressive disorder, without psychotic features F33.2 [place] [address] [place] [address] [place] [address] Mar, [facility] [address] [facility] [id number] [address] [place] [address] Feb, Chronic pain syndrome G89.4 [facility] [address] [facility] [id number] [address] [place] [address] Feb, Acute non-recurrent maxillar y sinusitis J01.00 [facility] [address] [facility] [id number] [address] [place] [address] Feb, Acute non-recurrent frontal sinusitis J01.10 [facility] [address] [facility] [id number] [address] [place] [address] Feb, Chronic pain syndrome G89.4 [facility] [address] [facility] [id number] [address] [place] [address] January, Acute cystitis with hematuri a N30.01 [facility] [address] [place] [id number] [address] [place] [address] January, Acute cystitis with hematuri a N30.01 ; Dysuria R30.0 and Moderate persistent asthma with acute exacerbation J45.41 [facility] [address] [facility] [id number] [address] [place] [address] January, [facility] [address] [place] [id number] [address] [place] [address] January, Chronic pain syndrome G89.4 [facility] [address] [facility] [id number] [address] [place] [address] January, Asthma exacerbation J45.901 [facility] [address] [place] [id number] [address] [place] [address] January, Asthma exacerbation J45.901 [facility] [address] [place] [id number] [address] [place] [address] Dec, Cough R05 ; Numbness in both hands R20.0 ; Ground glass opacity present on imaging of lung R91.8 ; Hypoxia R09.02 and Asthma exacerbation J45.901 [facility] [address] [place] [address] Dec, Chronic pain syndrome G89.4 [place] [address] [place] [id number] [address] [place] [address] Nov, Chronic prescription opiate use Z79.899 ; Rheumatoid arthritis involving multiple sites with positive rheumatoid factor M05.89 ; Moderate persistent asthma with acute exacerbation J45.41 ; Pneumonia of right lower lobe due to infectious organism J18.1 ; Chronic pain syndrome G89.4 ; Gastroesophageal reflux disease, esophagitis presence not specified K21.9 and Hyperlipidemia, unspecified hyperlipidemia E78.5 [place] [address] [address] Nov, Rheumatoid arthritis 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.89 [place] [address] [address] Oct, [place] [address] [address] Oct, Essential hypertension I10 [address] [address] Sep, Hypoxia R09.02 and Ground gl ass opacity present on imaging of lung R91.8 [place] [address] [place] [id number] [address] [place] [address] Sep, Moderate persistent asthma w ith acute exacerbation J45.41 [facility] [id number] [place] [id number] Sep, [place] [address] [address] Sep, Chronic constipation K59.00 and Moderate persistent asthma with acute exacerbation J45.41 [facility] [address] [place] [id number] [address] [place] [address] Sep, Moderate persistent asthma w ith acute exacerbation J45.41 [facility] [address] [id number] [address] [place] [address] 30 Aug, 2016 [facility] [address] [facility] [id number] [address] [place] [address] Aug, [facility] [address] [facility] [id number] [address] [place] [address] Aug, [facility] [address] [facility] [id number] [address] [place] [address] Aug, Rheumatoid arthritis 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.89 ; Essential hypertension I10 ; Hyperlipidemia, unspecified hyperlipidemia E78.5 ; Chronic constipation K59.00 and Moderate persistent asthma with acute exacerbation J45.41 [facility] [address] [facility] [id number] [address] [place] [address] Aug, Bronchitis J40 [place] [address] [facility] [id number] [address] [place] [address] Aug, Rheumatoid arthritis 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.89 [facility] [address] [facility] [id number] [address] [place] [address] Aug, Pharyngitis, unspecified pablito ology J02.9 and Acute nasopharyngitis J00 [place] [address] [facility] [id number] [address] [place] [address] Aug, [facility] [address] [facility] [id number] [address] [place] [id number] Jul, [facility] [address] [facility] [id number] [address] [place] [address] Jul, Rheumatoid arthritis 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.89 ; Essential hypertension I10 ; Hyperlipidemia, unspecified hyperlipidemia E78.5 ; Rash R21 ; Mild persistent asthma with acute exacerbation J45.31 ; Hematuria R31.9 ; Osteoporosis M81.0 and Gastroesophageal reflux disease, esophagitis presence not specified K21.9 [facility] [address] [facility] [id number] [address] [place] [address] Jun, [facility] [address] [facility] [id number] [address] [place] [address] 10 Jun, 2016 Dysuria R30.0 [facility] [address] [facility] [id number] [address] [place] [address] 05 Jun, 2016 Acute non-recurrent maxillar y sinusitis J01.00 and Dysuria R30.0 [facility] [address] [facility] [id number] [address] [place] [address] 16 May, 2016 [facility] [address] [facility] [id number] [address] [place] [address] May, [facility] [address] [facility] [id number] [address] [place] [address] Apr, Chronic prescription opiate use Z79.899 and Rheumatoid arthritis involving multiple sites with positive rheumatoid factor M05.89 [facility] [address] [place] [id number] [address] [place] [address] Mar, [facility] [address] [place] [id number] [address] [place] [address] Feb, Dizziness of unknown cause R 42 and Other chronic pain G89.29 [facility] [address] [facility] [id number] [address] [place] [address] Feb, [facility] [address] [place] [id number] [address] [place] [address] Feb, Shortness of breath R06.02 [facility] [address] [facility] [id number] [address] [place] [address] January, [facility] [address] [place] [id number] [place] [address] January, Rheumatoid arthritis 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.89 ; Chronic prescription opiate use Z79.899 ; Hyperlipidemia, unspecified hyperlipidemia E78.5 ; Cough R05 ; Exposure to pneumonia Z20.828 ; Diarrhea, unspecified type R19.7 ; Weight loss R63.4 ; Lumbago with sciatica, right side M54.41 and Lumbago with sciatica, left side M54.42 [facility] [address] [id number] [address] [place] [address] Dec, [facility] [address] [id number] [address] [place] [phone] Dec, Bronchitis J40 [facility] [address] [facility] [id number] [address] [place] [address] Nov, [facility] [address] [id number] [address] [place] [address] Nov, [facility] [address] [facility] [id number] [address] [place] [phone] Nov, [facility] [address] [place] [id number] [address] [place] [address] Nov, Bloody diarrhea R19.7 ; [place] n wall thickening K63.9 ; Shortness of breath R06.02 and Bladder wall thickening N32.89 [facility] [address] [place] [id number] [place] [id number] 15 Oct, 2015 Dental examination Z01.20 [facility] [address] [id number] [address] [place] [address] 15 Oct, 2015 [facility] [address] [facility] [id number] [address] [place] [address] Oct, Toothache K08.8 [facility] [id number] [place] [address] [id number] 11 Oct, 2015 Dental examination Z01.20 [facility] [address] [facility] [id number] [address] [place] [phone] 02 Oct, 2015 [facility] [address] [facility] [id number] [address] [place] [phone] Sep, [facility] [address] [facility] [id number] [address] [place] [id number] Sep, Burning with urination R30.0 [facility] [address] [facility] [id number] [address] [place] [address] Sep, Hematuria R31.9 ; Rheumatoid arthritis involving multiple sites with positive rheumatoid factor M05.89 and Rheumatoid arthritis flare M06.9 [place] [address] [facility] [id number] [address] [place] [address] Aug, Hyperlipidemia, unspecified hyperlipidemia E78.5 and Hematuria R31.9 [place] [address] [id number] [address] [place] [address] Aug, Hematuria R31.9 ; Chronic ki dney disease, stage 1 N18.1 and Hyperlipidemia, unspecified hyperlipidemia E78.5 [place] [address] [facility] [id number] [address] [place] [address] Aug, Rheumatoid arthritis 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.89 ; Asthma exacerbation J45.901 ; Hematuria R31.9 ; Hyperlipidemia, unspecified hyperlipidemia E78.5 and Chronic kidney disease, stage 1 N18.1 [place] [address] [facility] [id number] [address] [place] [address] Aug, [place] [address] [facility] [id number] [address] [place] [address] Jul, [place] [address] [facility] [id number] [address] [place] [address] Jul, Lumbosacral radiculopathy M5 4.17 [place] [address] [facility] [id number] [address] [place] [address] Jul, [place] [address] [facility] [id number] [address] [place] [address] Jun, Rheumatoid arthritis 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.89 ; Hyperlipidemia, unspecified hyperlipidemia E78.5 ; Lumbosacral radiculopathy M54.17 ; Carpal tunnel syndrome, right upper limb G56.01 and Carpal tunnel syndrome, left upper limb G56.02 [place] [address] [id number] [address] [place] [id number] Jun, [facility] [address] [id number] [address] [place] [address] May, Lumbar radicular pain 724.4 and Dysuria 788.1 [facility] [address] [id number] [address] [place] [address] May, Rheumatoid arthritis 714.0 ; Lumbar radicular pain 724.4 ; Burn 949.0 and Thoracic back pain 724.1 [facility] [address] [id number] [address] [place] [address] May, [facility] [address] [facility] [id number] [address] [place] [address] May, [facility] [address] [facility] [id number] [address] [place] [address] Apr, [facility] [address] [facility] [id number] [address] [place] [address] Mar, Hyperlipidemia 272.4 [facility] [address] [facility] [id number] [address] [place] [id number] Mar, [facility] [address] [facility] [id number] [address] [place] [address] Mar, [facility] [address] [facility] [id number] [address] [place] [address] Mar, Diarrhea 787.91 ; Chronic ki dney disease, unspecified 585.9 ; Hyperlipidemia 272.4 and Asthma 493.90 [facility] [address] [facility] [id number] [address] [place] [address] Mar, [facility] [address] [facility] [id number] [address] [place] [address] Mar, Gastroenteritis 558.9 [facility] [address] [facility] [id number] [address] [place] [address] Feb, [facility] [address] [id number] [address] [place] [address], [place] [address] January, [facility] [address] [id number] [address] [place] [address], [place] [address] January, [facility] [address] [id number] [address] [place] [address], [place] [address] Dec, [facility] [address] [id number] [address] [place] [address], [place] [address] Dec, [facility] [address] [id number] [address] [place] [address], [place] [address] Nov, [facility] [address] [id number] [address] [place] [address], [place] [address] Nov, [facility] [address] [id number] [address] [place] [address], [place] [address] Nov, [facility] [address] [id number] [address] [place] [address], [place] [address] Nov, [facility] [address] [id number] [address] [place] [address], [place] [address] Nov, [facility] [address] [id number] [address] [place] [address], [place] [address] Nov, [facility] [address] [id number] [address] [place] [address], [place] [address] Oct, [facility] [address] [id number] [address] [place] [address], [place] [address] Oct, [facility] [address] [id number] [address] [place] [address], [place] [address] Sep, [facility] [address] [id number] [address] [place] [address], [place] [address] Sep, [facility] [address] [id number] [address] [place] [address], [place] [address] Sep, [facility] [address] [id number] [address] [place] [address], [place] [address] Sep, [facility] [address] [id number] [address] [place] [address], [place] [address] Sep, [facility] [address] [id number] [address] [place] [address], [place] [address] Sep, [facility] [address] [id number] [address] [place] [address], [place] [address] Aug, [facility] [address] [id number] [address] [place] [address], [place] [address] Aug, [facility] [address] [id number] [address] [place] [address], [place] [address] Aug, [facility] [address] [id number] [address] [place] [address], [place] [address] Aug, [facility] [address] [id number] [address] [place] [address], [place] [id number] Jul, [facility] [address] [id number] [address] [place] [address], [place] [address] Jul, [facility] [address] [id number] [address] [place] [address], [place] [address] Jul, [facility] [address] [id number] [address] [place] [address], [place] [address] Jul, [facility] [address] [id number] [address] [place] [address], [place] [address] Jul, [facility] [address] [id number] [address] [place] [address], [place] [address] Jul, [facility] [address] [id number] [address] [place] [address], [place] [address] Jul, [facility] [address] [id number] [address] [place] [address], [place] [address] Jul, [facility] [address] [id number] [address] [place] [address], [place] [address] Jul, [facility] [address] [id number] [address] [place] [address], [place] [address] 31 Jun, 2014 [facility] [address] [id number] [address] [place] [address], [place] [address] 15 Jun, 2014 [facility] [address] [id number] [address] [place] [address], [place] [address] 15 Jun, 2014 [facility] [address] [id number] [address] [place] [address], [place] [address] 25 May, 2013 [facility] [address] [id number] [address] [place] [address], [place] [address] 25 May, 2013 [facility] [address] [id number] [address] [place] [address], [place] [address] 24 May, 2013 [facility] [address] [id number] [address] [place] [address], [place] [address] 24 May, 2013 [facility] [address] [id number] [address] [place] [address], [place] [address] 24 May, 2013 [facility] [address] [id number] [address] [place] [address], [place] [address] 24 May, 2013 [facility] [address] [id number] [address] [place] [address], [place] [address] 19 May, 2013 [facility] [address] [id number] [address] [place] [address], [place] [address] 19 May, 2013 [facility] [address] [id number] [address] [place] [address], [place] [address] 11 May, 2013 [facility] [address] [id number] [address] [place] [address], [place] [address] 11 May, 2013 [facility] [address] [id number] [address] [place] [address], [place] [address] 11 May, 2013 [facility] [address] [id number] [address] [place] [address], [place] [address] 11 May, 2013 [facility] [address] [id number] [address] [place] [address], [place] [address] May, [facility] [address] [id number] [address] [place] [address] May, [facility] [address] [id number] [address] [place] [address] May, [facility] [address] [id number] [address] [place] [address] May, [facility] [address] [id number] [address] [place] [address] Apr, [facility] [address] [facility] [id number] [address] [place] [address] Apr, [facility] [address] [facility] [id number] [address] [place] [id number] Aug, [facility] [address] 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
--- OUTSIDE RECORDS SUMMARY | 2020-02-27 15:39 | XMS REPORT ---
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 Name Role Phone EMERALD EDWARD Unavailable PROBLEMS Type Condition ICD9-CM Code FAJ27-AN Code Onset Dates Condition S tatus SNOMED Code Problem Rheumatoid arthritis 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.89 Active 426231712 Problem Vitamin D deficiency E55.9 Active 77979131 Problem Chronic prescription opiate use Z79.899 Active 373383200 Problem Atrophy of left kidney N26.1 Active 546111280 Problem Colon wall thickening K63.9 Active 919278773 Problem Bladder wall thickening N32.89 Active 690090026 Problem Gastroesophageal reflux disease, esophagitis pre sence not specified K21.9 Active 657880609 Problem Pernicious anemia D51.0 Active 84 021474 Problem Osteoporosis M81.0 Active 7182279 6 Problem Hyperlipidemia, unspecified hyperlipidemia E78.5 Active 71494403 Problem Asthma exacerbation J45.901 Active 413974728 Problem Severe episode of recurrent major depressive disorder, without psychotic features F33.2 Active 58333540 Problem Generalized anxiety disorder F41.1 A ctive 34129337 Problem Chronic respiratory failure with hypoxia J96.11 Active 257007463 Problem Chronic pain syndrome G89.4 Active 166973179 Problem Chronic constipation K59.00 Active 047432294 Problem COPD exacerbation J44.1 Active 19 3313050 Problem Moderate persistent asthma with acute exacerbation J45.41 Active 542456146158410 Problem Chronic kidney disease, stage 1 N18.1 Active 916577911 Problem Essential hypertension I10 Active 07844554 Problem Moderate persistent asthma without complication J4 5.40 Active 008327867 Problem Lumbago with sciatica, left side M54.42 Active 534434194 Problem Lumbago with sciatica, right side M54.41 Active 477775579194894 Problem Dependence on supplemental oxygen Z99.81 Active [id number] ALLERGIES No Information ENCOUNTERS Encounter Location Date Diagnosis [facility] [address] [place] [address] 09 Dec, 2019 Rheumatoid arthritis 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.89 [facility] [address] [facility]NOTE [facility]] [id number] [address] [place] [address] Dec, [facility] [address] [place] [id number] [place] [address] Nov, Rheumatoid arthritis 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.89 ; Acute pain of right knee M25.561 ; Fever, unspecified fever cause R50.9 ; Essential hypertension I10 ; Hyperlipidemia, unspecified hyperlipidemia E78.5 and Cough R05 [facility] [address] [place] [id number] [place] [address] Nov, Rheumatoid arthritis 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.89 [place] [address] [place] [id number] [place] [address] Oct, Rheumatoid arthritis 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.89 [facility] [address] [place] [id number] [place] [address] Sep, Rheumatoid arthritis 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.89 [facility] [address] [place] [id number] [place] [address] Aug, [facility] [address] [facility]] [id number] [address] [place] [address] Aug, COPD exacerbation J44.1 and Right otitis media with effusion H65.91 [facility] [address] [place] [id number] [place] [address] Aug, Rheumatoid arthritis 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.89 [facility] [address] [place] [id number] [place] [address] Aug, [facility] [address] [place] [id number] [place] [address] Aug, Rheumatoid arthritis 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.89 [place] [address] [facility]NOTE 3] [id number] [address] [place] [address] Jul, Essential hypertension I10 [facility] [address] [place] [id number] [place] [address] Jul, Severe episode of recurrent major depressive disorder, without psychotic features F33.2 [place] [address] [place] [id number] [place] [address] Jul, Shortness of breath at rest R06.02 ; Cough R05 ; Rheumatoid arthritis involving multiple sites with positive rheumatoid factor M05.89 ; Chronic respiratory failure with hypoxia J96.11 ; Severe episode of recurrent major depressive disorder, without psychotic features F33.2 and Chronic pain syndrome G89.4 [place] [address] [place] [id number] [place] [address] Jul, Gastroesophageal reflux dise ase, esophagitis presence not specified K21.9 ; Shortness of breath at rest R06.02 and Rheumatoid arthritis involving multiple sites with positive rheumatoid factor M05.89 [place] [address] [place] [id number] [place] [address] Jun, [place] [address] [facility] 3] [id number] [address] [place] [address] Jun, Rheumatoid arthritis 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.89 [place] [address] [facility] 3] [id number] [address] [place] [address] Jun, Rheumatoid arthritis 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.89 [place] [address] [facility]] [id number] [address] [place] [address] Jun, Laryngitis J04.0 ; Cough R05 ; Acute non-recurrent maxillary sinusitis J01.00 ; Severe episode of recurrent major depressive disorder, without psychotic features F33.2 and Chronic respiratory failure with hypoxia J96.11 [place] [address] [facility]] [id number] [address] [place], [place] [address] 17 May, 2019 Rheumatoid arthritis 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.89 [facility] [address] [facility]] [id number] [address] [place] [address] 16 May, 2019 Shortness of breath R06.02 [facility] [address] [facility] 3] [id number] [address] [place] [address] 13 May, 2019 Shortness of breath R06.02 [facility] [address] [facility]] [id number] [address] [place] [address] 13 May, 2019 Shortness of breath at rest R06.02 ; Tachypnea on examination R06.82 ; Cough, persistent R05 and Dysuria R30.0 [facility] [address] [place] [id number] [place] [address] Apr, Rheumatoid arthritis 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.89 [facility] [address] [place] [id number] [place] [address] Apr, [facility] [address] [place] [id number] [place] [address] Apr, [facility] [address] [place] [id number] [place] [address] Mar, Rheumatoid arthritis 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.89 and Chronic constipation K59.00 [facility] [address] [facility] 3] [id number] [address] [place] [address] Mar, [facility] [address] [facility]] [id number] [address] [place] [address] Mar, Dizziness R42 and Nausea and vomiting, intractability of vomiting not specified, unspecified vomiting type R11.2 [facility] [address] [facility] 3] [id number] [address] [place] [address] Feb, Chronic pain syndrome G89.4 [place] [id number] [address] January, Chronic pain syndrome G89.4 [facility] [address] [facility]] [id number] [address] [place] [address] Dec, [facility] [address] [facility]] [id number] [address] [place] [address] Dec, [facility] [address] [place] [id number] [place] [address] Dec, Asthma exacerbation J45.901 ; Essential hypertension I10 ; Hyperlipidemia, unspecified hyperlipidemia E78.5 ; Rheumatoid arthritis involving multiple sites with positive rheumatoid factor M05.89 ; Chronic pain syndrome G89.4 ; Chronic kidney disease, stage 1 N18.1 ; Chronic respiratory failure with hypoxia J96.11 and Dependence on supplemental oxygen Z99.81 [facility] [address] [place] [id number] [place] [address] Dec, Chronic pain syndrome G89.4 [facility] [address] [place] [id number] [place] [address] Nov, Chronic pain syndrome G89.4 [facility] [address] [place] [id number] [place] [address] Nov, [facility] [address] [place] [id number] [place] [address] Oct, Chronic pain syndrome G89.4 [facility] [address] [place] [id number] [place] [address] Oct, [facility] [address] [place] [id number] [place] [address] Oct, Viral upper respiratory trac t infection J06.9 ; Chronic constipation K59.00 ; Severe episode of recurrent major depressive disorder, without psychotic features F33.2 ; Moderate persistent asthma with acute exacerbation J45.41 ; Essential hypertension I10 ; Gastroesophageal reflux disease, esophagitis presence not specified K21.9 and Hyperlipidemia, unspecified hyperlipidemia E78.5 [facility] [address] [place] [id number] [place] [address] 05 Oct, 2018 [facility] [address] [id number] [address] [place] [address] Sep, Chronic pain syndrome G89.4 [facility] [address] [id number] [address] [place] [address] Sep, Rheumatoid arthritis 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.89 ; Chronic constipation K59.00 ; Gastroesophageal reflux disease, esophagitis presence not specified K21.9 ; Asthma exacerbation J45.901 ; Severe episode of recurrent major depressive disorder, without psychotic features F33.2 ; Ganglion cyst M67.40 and Chronic prescription opiate use Z79.899 [facility] [address] [facility] 3] [id number] [address] [place] [address] Aug, Cough R05 and Moderate persi stent asthma with acute exacerbation J45.41 [facility] [address] [facility] 3] [id number] [address] [place] [address] Aug, Chronic pain syndrome G89.4 [facility] [address] [facility] 3] [id number] [address] [place] [address] Jul, Chronic pain syndrome G89.4 [facility] [address] [facility] 3] [id number] [address] [place] [address] Jul, Acute nasopharyngitis J00 [facility] [address] [facility] 3] [id number] [address] [place] [address] Jun, [facility] [address] [facility] 3] [id number] [address] [place] [address] Jun, Chronic pain syndrome G89.4 [facility] [address] [facility] 3] [id number] [address] [place] [address] 21 May, 2018 Chronic pain syndrome G89.4 [facility] [address] [facility] 3] [id number] [address] [place] [address] 14 May, 2018 [facility] [address] [facility]] [id number] [address] [place] [address] 13 May, 2018 [facility] [address] [place] [id number] [place] [address] 13 May, 2018 Moderate persistent asthma w ith acute exacerbation J45.41 and Rheumatoid arthritis involving multiple sites with positive rheumatoid factor M05.89 [facility] [address] [id number] [address] [place] [address] 12 May, 2018 Moderate persistent asthma w ith acute exacerbation J45.41 and Hypoxia R09.02 [facility] [address] [facility] 3] [id number] [address] [place] [address] Apr, Chronic pain syndrome G89.4 [facility] [address] [facility]] [id number] [address] [place] [address] Mar, High ankle sprain of right l ower extremity, subsequent encounter S93.431D ; Lumbago with sciatica, left side M54.42 and Lumbago with sciatica, right side M54.41 [facility] [address] [facility]] [id number] [address] [place] [address] Mar, [facility] [address] [facility] 3] [id number] [address] [place] [address] Mar, Chronic pain syndrome G89.4 [facility] [address] [facility] 3] [id number] [address] [place] [address] Mar, [facility] [address] [facility]] [id number] [address] [place] [address] Mar, Asthma exacerbation J45.901 and Sprain of right ankle, unspecified ligament, subsequent encounter S93.401D [facility] [address] [id number] [address] [place] [address] 30 Feb, 2018 Injury of right ankle, initi al encounter S99.911A [facility] [address] [facility]] [id number] [address] [place] [address] Feb, Chronic pain syndrome G89.4 [facility] [address] [facility] 3] [id number] [address] [place] [address] Feb, Chronic pain syndrome G89.4 [place] [address] [place] [address] Feb, Moderate persistent asthma w ith acute exacerbation J45.41 and Persistent cough for 3 weeks or longer R05 [place] [address] [place] [id number] [place] [address] January, [place] [address] [place] [id number] [place] [address] January, Moderate persistent asthma w ith acute exacerbation J45.41 [place] [address] [address] January, Chronic pain syndrome G89.[address] [address] January, Tachycardia R00.0 and Modera te persistent asthma with acute exacerbation J45.41 [place] [address] [address] January, Tachycardia R00.0 ; Moderate persistent asthma with acute exacerbation J45.41 ; Gastroesophageal reflux disease, esophagitis presence not specified K21.9 ; Hyperlipidemia, unspecified hyperlipidemia E78.5 and Chronic pain syndrome G89.4 [place] [address] [address] Dec, Medicare annual wellness vis it, initial [...] immunization Z23 and Chronic pain syndrome G89.4 [place] [address] [place] [id number] [place] [address] Dec, Chronic pain syndrome G89.4 [place] [address] [address] Dec, [facility] [address] [facility]] [id number] [address] [place] [address] Nov, [facility] [address] [facility]] [id number] [address] [place] [address] Nov, Chronic pain syndrome G89.4 [facility] [address] [facility]] [id number] [address] [place] [address] Oct, Chronic pain syndrome G89.4 [facility] [address] [facility]] [id number] [address] [place] [address] Oct, Chronic kidney disease, stag e 1 N18.1 [facility] [address] [facility]] [id number] [address] [place] [address] Oct, Chronic prescription opiate use Z79.899 ; Cough R05 ; Asthma exacerbation J45.901 ; Elevated liver enzymes R74.8 ; Rheumatoid arthritis involving multiple sites with positive rheumatoid factor M05.89 and Chronic pain syndrome G89.4 [facility] [address] [facility]] [id number] [address] [place] [address] Sep, Chronic pain syndrome G89.4 [facility] [address] [facility] 3] [id number] [address] [place] [address] Sep, [facility] [address] [facility]] [id number] [address] [place] [address] Aug, Acute bronchitis, unspecifie d organism J20.9 [facility] [address] [facility]] [id number] [address] [place] [address] Aug, Chronic pain syndrome G89.4 [facility] [address] [facility]] [id number] [address] [place] [address] Jul, Chronic pain syndrome G89.4 [facility] [address] [facility]] [id number] [address] [place] [address] Jun, Chronic pain syndrome G89.4 [facility] [address] [place] [id number] [place] [address] May, Rheumatoid arthritis 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.89 [place] [address] [place] [id number] [place] [address] May, Gastroesophageal reflux dise ase, esophagitis presence not specified K21.9 and Chronic pain syndrome G89.4 [place] [address] [address] May, [place] [address] [address] May, Esophageal candidiasis B37.8 1 and Chronic kidney disease, stage 1 N18.1 [place] [address] [address] May, Chronic kidney disease, stag e 1 N18.1 [place] [address] [address] May, Cough R05 ; Fever, unspecifi ed fever cause R50.9 ; Rheumatoid arthritis involving multiple sites with positive rheumatoid factor M05.89 and Chronic prescription opiate use Z79.899 [place] [address] [address] Apr, [place] [address] [address] Apr, Cough R05 [place] [address] [address] Apr, Asthma exacerbation J45.901 [place] [address] [place] [id number] [place] [address] Apr, [place] [address] [address] Apr, Generalized anxiety disorder F41.1 and Severe episode of recurrent major depressive disorder, without psychotic features F33.2 [place] [address] [address] Mar, [facility] [address] [facility]] [id number] [address] [place] [address] Feb, Chronic pain syndrome G89.4 [facility] [address] [facility]] [id number] [address] [place] [address] Feb, Acute non-recurrent maxillar y sinusitis J01.00 [facility] [address] [facility]] [id number] [address] [place] [address] Feb, Acute non-recurrent frontal sinusitis J01.10 [facility] [address] [facility]] [id number] [address] [place] [address] Feb, Chronic pain syndrome G89.4 [facility] [address] [facility]] [id number] [address] [place] [address] January, Acute cystitis with hematuri a N30.01 [place] [address] [facility]] [id number] [address] [place] [address] January, Acute cystitis with hematuri a N30.01 ; Dysuria R30.0 and Moderate persistent asthma with acute exacerbation J45.41 [place] [address] [facility]] [id number] [address] [place] [address] January, [place] [address] [facility]] [id number] [address] [place] [address] January, Chronic pain syndrome G89.4 [facility] [address] [facility]] [id number] [address] [place] [address] January, Asthma exacerbation J45.901 [place] [address] [place] [id number] [place] [address] January, Asthma exacerbation J45.901 [place] [address] [place] [id number] [place] [address] Dec, Cough R05 ; Numbness in both hands R20.0 ; Ground glass opacity present on imaging of lung R91.8 ; Hypoxia R09.02 and Asthma exacerbation J45.901 [place] [address] [facility]] [id number] [address] [place] [address] Dec, Chronic pain syndrome G89.4 [place] [address] [place] [id number] [place] [address] Nov, Chronic prescription opiate use Z79.899 ; Rheumatoid arthritis involving multiple sites with positive rheumatoid factor M05.89 ; Moderate persistent asthma with acute exacerbation J45.41 ; Pneumonia of right lower lobe due to infectious organism J18.1 ; Chronic pain syndrome G89.4 ; Gastroesophageal reflux disease, esophagitis presence not specified K21.9 and Hyperlipidemia, unspecified hyperlipidemia E78.5 [place] [address] [address] Nov, Rheumatoid arthritis 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.89 [place] [address] [address] Oct, [place] [address] [place] [id number] [place] [address] Oct, Essential hypertension I10 [place] [address] [address] Sep, Hypoxia R09.[address] ass opacity present on imaging of lung R91.8 [place] [address] [address] Sep, Moderate persistent asthma w ith acute exacerbation J45.41 [facility] [address] [id number] Sep, [place] [address] [place] [id number] [place] [address] Sep, Chronic constipation K59.00 and Moderate persistent asthma with acute exacerbation J45.41 [place] [address] [place] [id number] [place] [address] Sep, Moderate persistent asthma w ith acute exacerbation J45.41 [place] [address] [place] [address] Aug, [facility] [address] [facility][NOTE 3] [id number] [address] [place] [id number] Aug, [facility] [address] [facility][NOTE 3] [id number] [address] [place] [id number] Aug, [facility] [address] [facility][NOTE 3] [id number] [address] [place] [id number] Aug, Rheumatoid arthritis 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.89 ; Essential hypertension I10 ; Hyperlipidemia, unspecified hyperlipidemia E78.5 ; Chronic constipation K59.00 and Moderate persistent asthma with acute exacerbation J45.41 [place] [address] [facility] [facility] [id number] [address] [place] [address] Aug, Bronchitis J40 [facility] [address] [id number] [address] [place] [address] Aug, Rheumatoid arthritis 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.89 [facility] [address] [facility] [id number] [address] [place] [address] Aug, Pharyngitis, unspecified pablito ology J02.9 and Acute nasopharyngitis J00 [facility] [address] [facility]] [id number] [address] [place] [address] Aug, [facility] [address] [id number] [address] [place] [address] Jul, [facility] [id number] [place] [address] Jul, Rheumatoid arthritis 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.89 ; Essential hypertension I10 ; Hyperlipidemia, unspecified hyperlipidemia E78.5 ; Rash R21 ; Mild persistent asthma with acute exacerbation J45.31 ; Hematuria R31.9 ; Osteoporosis M81.0 and Gastroesophageal reflux disease, esophagitis presence not specified K21.9 [facility] [address] [facility]] [id number] [address] [place] [address] Jun, [facility] [address] [facility]] [id number] [address] [place] [address] Jun, Dysuria R30.0 [facility] [address] [facility]] [id number] [address] [place] [address] 05 Jun, 2016 Acute non-recurrent maxillar y sinusitis J01.00 and Dysuria R30.0 [facility] [address] [facility]] [id number] [address] [place] [address] 16 May, 2016 [facility] [address] [facility]] [id number] [address] [place] [address] May, [facility] [id number] [place] [address] Apr, Chronic prescription opiate use Z79.899 and Rheumatoid arthritis involving multiple sites with positive rheumatoid factor M05.89 [facility] [address] [id number] [address] [place] [address] Mar, [facility] [address] [id number] [address] [place] [address] Feb, Dizziness of unknown cause R 42 and Other chronic pain G89.29 [place] [id number] [place] [address] Feb, [facility] [address] [id number] [address] [place] [address] Feb, Shortness of breath R06.02 [facility] [id number] [place] [address] January, [place] [address] [id number] [address] [place] [address] January, Rheumatoid arthritis 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.89 ; Chronic prescription opiate use Z79.899 ; Hyperlipidemia, unspecified hyperlipidemia E78.5 ; Cough R05 ; Exposure to pneumonia Z20.828 ; Diarrhea, unspecified type R19.7 ; Weight loss R63.4 ; Lumbago with sciatica, right side M54.41 and Lumbago with sciatica, left side M54.42 [facility] [address] [facility]] [id number] [address] [place] [address] Dec, [facility] [address] [facility]] [id number] [address] [place] [address] Dec, Bronchitis J40 [facility] [address] [facility]] [id number] [address] [place] [address] Nov, [facility] [address] [facility]] [id number] [address] [place] [address] Nov, [facility] [address] [facility]] [id number] [address] [place] [address] Nov, [facility] [address] [facility]] [id number] [address] [place] [address] Nov, Bloody diarrhea R19.7 ; Harvey n wall thickening K63.9 ; Shortness of breath R06.02 and Bladder wall thickening N32.89 [facility] [id number] [place] [address] [id number] 15 Oct, 2015 Dental examination Z01.20 [facility] [address] [facility] [id number] [address] [place] [address] 15 Oct, 2015 [facility] [address] [facility]] [id number] [address] [place] [address] 15 Oct, 2015 Toothache K08.8 [facility] [id number] [place] [address] [id number] 11 Oct, 2015 Dental examination Z01.20 [facility] [address] [facility]] [id number] [address] [place] [address] 02 Oct, 2015 [facility] [address] [facility]] [id number] [address] [place] [address] Sep, [facility] [address] [facility]] [id number] [address] [place] [address] Sep, Burning with urination R30.0 [place] [address] [id number] [address] [place] [address] Sep, Hematuria R31.9 ; Rheumatoid arthritis involving multiple sites with positive rheumatoid factor M05.89 and Rheumatoid arthritis flare M06.9 [place] [address] [id number] [address] [place] [address] Aug, Hyperlipidemia, unspecified hyperlipidemia E78.5 and Hematuria R31.9 [place] [address] [id number] [address] [place] [address] Aug, Hematuria R31.9 ; Chronic ki dney disease, stage 1 N18.1 and Hyperlipidemia, unspecified hyperlipidemia E78.5 [place] [address] [facility]] [id number] [address] [place] [address] Aug, Rheumatoid arthritis 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.89 ; Asthma exacerbation J45.901 ; Hematuria R31.9 ; Hyperlipidemia, unspecified hyperlipidemia E78.5 and Chronic kidney disease, stage 1 N18.1 [place] [address] [facility]] [id number] [address] [place] [address] Aug, [place] [address] [facility]] [id number] [address] [place] [phone] Jul, [place] [address] [facility]] [id number] [address] [place] [address] Jul, Lumbosacral radiculopathy M5 4.17 [place] [address] [facility]] [id number] [address] [place] [address] Jul, [place] [address] [facility]] [id number] [address] [place] [address] Jun, Rheumatoid arthritis 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.89 ; Hyperlipidemia, unspecified hyperlipidemia E78.5 ; Lumbosacral radiculopathy M54.17 ; Carpal tunnel syndrome, right upper limb G56.01 and Carpal tunnel syndrome, left upper limb G56.02 [place] [address] [facility]] [id number] [address] [place] [address] Jun, [facility] [address] [id number] [address] [place] [address] May, Lumbar radicular pain 724.4 and Dysuria 788.1 [facility] [address] [id number] [address] [place] [address] May, Rheumatoid arthritis 714.0 ; Lumbar radicular pain 724.4 ; Burn 949.0 and Thoracic back pain 724.1 [facility] [address] [id number] [address] [place] [address] May, [facility] [address] [id number] [address] [place] [address] May, [facility] [address] [facility]] [id number] [address] [place] [address] Apr, [facility] [address] [id number] [address] [place] [address] Mar, Hyperlipidemia 272.4 [facility] [address] [facility] [id number] [address] [place] [address] Mar, [facility] [address] [facility]] [id number] [address] [place] [address] Mar, [facility] [address] [facility]] [id number] [address] [place] [address] Mar, Diarrhea 787.91 ; Chronic ki dney disease, unspecified 585.9 ; Hyperlipidemia 272.4 and Asthma 493.90 [facility] [address] [facility]] [id number] [address] [place] [address] Mar, [facility] [address] [facility]] [id number] [address] [place] [address] Mar, Gastroenteritis 558.9 [facility] [address] [facility] [id number] [address] [place] [address] Feb, [facility] [address] [id number] [address] [place] [address] [place] [address] January, [facility] [address] [id number] [address] [place] [address], [place] [address] January, [facility] [address] [id number] [address] [place] [address], [place] [address] Dec, [facility] [address] [id number] [address] [place] [address], [place] [address] Dec, [facility] [address] [id number] [address] [place] [address], [place] [address] Nov, [facility] [address] [id number] [address] [place] [address], [place] [address] Nov, [facility] [address] [id number] [address] [place] [address], [place] [address] Nov, [facility] [address] [id number] [address] [place] [address], [place] [address] Nov, [facility] [address] [id number] [address] [place] [address], [place] [address] Nov, [facility] [address] [id number] [address] [place] [address], [place] [address] Nov, [facility] [address] [id number] [address] [place] [address], [place] [address] Oct, [facility] [address] [id number] [address] [place] [address], [place] [address] Oct, [facility] [address] [id number] [address] [place] [address], [place] [address] Sep, [facility] [address] [id number] [address] [place] [address], [place] [address] Sep, [facility] [address] [id number] [address] [place] [address], [place] [address] Sep, [facility] [address] [id number] [address] [place] [address], [place] [address] Sep, [facility] [address] [id number] [address] [place] [address], [place] [address] Sep, [facility] [address] [id number] [address] [place] [address], [place] [address] Sep, [facility] [address] [id number] [address] [place] [address], [place] [address] Aug, [facility] [address] [id number] [address] [place] [address], [place] [address] Aug, [facility] [address] [id number] [address] [place] [address], [place] [address] Aug, [facility] [address] [id number] [address] [place] [address], [place] [address] Aug, [facility] [address] [id number] [address] [place] [address], [place] [address] Jul, [facility] [address] [id number] [address] [place] [address], [place] [address] Jul, [facility] [address] [id number] [address] [place] [address], [place] [address] Jul, [facility] [address] [id number] [address] [place] [address], [place] [address] Jul, [facility] [address] [id number] [address] [place] [address], [place] [address] Jul, [facility] [address] [id number] [address] [place] [address], [place] [address] Jul, [facility] [address] [id number] [address] [place] [address], [place] [address] Jul, [facility] [address] [id number] [address] [place] [address], [place] [address] Jul, [facility] [address] [id number] [address] [place] [address], [place] [address] Jul, [facility] [address] [id number] [place] [address] 31 Jun, 2014 [facility] [address] [id number] [address] [place] [address], [place] [address] 15 Jun, 2014 [facility] [address] [id number] [address] [place] [address], [place] [address] 15 Jun, 2014 [facility] [address] [id number] [address] [place] [address], [place] [address] 25 May, 2013 [facility] [address] [id number] [address] [place] [address], [place] [address] 25 May, 2013 [facility] [address] [id number] [address] [place] [address], [place] [address] 24 May, 2013 [facility] [address] [id number] [address] [place] [address], [place] [address] 24 May, 2013 [facility] [address] [id number] [address] [place] [address], [place] [address] 24 May, 2013 [facility] [address] [id number] [address] [place] [address], [place] [address] 24 May, 2013 [facility] [address] [id number] [address] [place] [address], [place] [address] 19 May, 2013 [facility] [address] [id number] [address] [place] [address], [place] [address] 19 May, 2013 [facility] [address] [id number] [address] [place] [address], [place] [address] 11 May, 2013 [facility] [address] [id number] [address] [place] [address], [place] [address] 11 May, 2013 [facility] [address] [id number] [address] [place] [address], [place] [address] 11 May, 2013 [facility] [address] [id number] [address] [place] [address], [place] [address] 11 May, 2013 [facility] [address] [id number] [address] [place] [address], [place] [address] 10 May, 2013 [facility] [address] [id number] [address] [place] [address] May, [facility] [address] [id number] [address] [place] [address] May, [facility] [address] [id number] [address] [place] [address] May, [facility] [address] [facility] [id number] [address] [place] [address] Apr, [facility] [address] [facility] [id number] [address] [place] [address] Apr, [facility] [address] [facility] [id number] [address] [place] [address] Aug, [facility] [address] [facility]] [id number] [address] [place] [address] Jul, IMMUNIZATIONS No Known Immunizations SOCIAL HISTORY [...]
--- OUTSIDE RECORDS SUMMARY | 2020-02-27 15:39 | XMS REPORT ---
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 Name Role Phone EMERALD EDWARD Unavailable PROBLEMS Type Condition ICD9-CM Code MYI11-ID Code Onset Dates Condition S tatus SNOMED Code Problem Essential hypertension I10 Active 16895418 Problem Chronic constipation K59.00 Active 563514135 Problem Atrophy of left kidney N26.1 Active 741018097 Problem Vitamin D deficiency E55.9 Active 60284919 Problem Colon wall thickening K63.9 Active 018832471 Problem Chronic prescription opiate use Z79.899 Active 469755685 Problem Gastroesophageal reflux disease, esophagitis pre sence not specified K21.9 Active 911018226 Problem Hyperlipidemia, unspecified hyperlipidemia E78.5 Active 75420683 Problem Bladder wall thickening N32.89 Active 861337284 Problem Chronic pain syndrome G89.4 Active 180539596 Problem Asthma exacerbation J45.901 Active 230553641 Problem Severe episode of recurrent major depressive disorder, without psychotic features F33.2 Active 36045807 Problem Dependence on supplemental oxygen Z99.81 Active 178652081186 Problem Moderate persistent asthma with acute exacerbation J45.41 Active 394983667715216 Problem Rheumatoid arthritis 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.89 Active 653923493 Problem Chronic respiratory failure with hypoxia J96.11 Active 159194442 Problem Osteoporosis M81.0 Active 3425543 6 Problem Pernicious anemia D51.0 Active 84 618647 Problem Chronic kidney disease, stage 1 N18.1 Active 258669030 Problem Generalized anxiety disorder F41.1 A ctive 08474304 Problem Moderate persistent asthma without complication J4 5.40 Active 933270778 Problem Lumbago with sciatica, left side M54.42 Active 045589764 Problem Lumbago with sciatica, right side M54.41 Active [id number] ALLERGIES No Information ENCOUNTERS Encounter Location Date Diagnosis [facility] [id number] [place] [phone] 13 May, [address] [facility] [id number] [place] [address] May, Shortness of breath at rest R06.02 ; Tachypnea on examination R06.82 ; Cough, persistent R[address] [facility] [id number] [place] [address] Apr, Rheumatoid arthritis 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.89 [facility] [id number] [place] [address] Apr, [facility] [id number] [place] [address] Apr, [facility] [id number] [place] [address] Mar, Rheumatoid arthritis 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.89 and Chronic constipation K59.00 [facility] [id number] [place] [address] Mar, [facility] [id number] [place] [address] Mar, Dizziness R42 and Nausea and vomiting, intractability of vomiting not specified, unspecified vomiting type R11.2 [facility] [id number] [place] [id number] Feb, Chronic pain syndrome G89.[address] [address] January, Chronic pain syndrome G89.4 [facility] [id number] [place] [phone] Dec, [facility] [id number] [place] [address] Dec, [place] [id number] [place] [id number] Dec, Asthma exacerbation J45.901 ; Essential hypertension I10 ; Hyperlipidemia, unspecified hyperlipidemia E78.5 ; Rheumatoid arthritis involving multiple sites with positive rheumatoid factor M05.89 ; Chronic pain syndrome G89.4 ; Chronic kidney disease, stage 1 N18.1 ; Chronic respiratory failure with hypoxia J96.11 and Dependence on supplemental oxygen Z99.81 [place] [id number] [place] [address] Dec, Chronic pain syndrome G89.4 [place] [id number] [place] [address] Nov, Chronic pain syndrome G89.4 [place] [id number] [place] [id number] Nov, [place] [id number] [place] [address] Oct, Chronic pain syndrome G89.4 [place] [id number] [place] [phone] Oct, [place] [id number] [place] [address] Oct, Viral upper respiratory trac t infection J06.9 ; Chronic constipation K59.00 ; Severe episode of recurrent major depressive disorder, without psychotic features F33.2 ; Moderate persistent asthma with acute exacerbation J45.41 ; Essential hypertension I10 ; Gastroesophageal reflux disease, esophagitis presence not specified K21.9 and Hyperlipidemia, unspecified hyperlipidemia E78.5 [place] [id number] [place] [address] Oct, [place] [id number] [place] [address] Sep, Chronic pain syndrome G89.4 [place] [id number] [place] [address] Sep, Rheumatoid arthritis 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.89 ; Chronic constipation K59.00 ; Gastroesophageal reflux disease, esophagitis presence not specified K21.9 ; Asthma exacerbation J45.901 ; Severe episode of recurrent major depressive disorder, without psychotic features F33.2 ; Ganglion cyst M67.40 and Chronic prescription opiate use Z79.899 [facility] [address] [facility] [id number] [address] [place] [address] Aug, Cough R05 and Moderate persi stent asthma with acute exacerbation J45.41 [facility] [address] [id number] [address] [place] [phone] Aug, Chronic pain syndrome G89.4 [facility] [address] [facility] [id number] [address] [place] [phone] Jul, Chronic pain syndrome G89.4 [facility] [address] [facility] [id number] [address] [place] [phone] Jul, Acute nasopharyngitis J00 [facility] [address] [facility] [id number] [address] [place] [phone] Jun, [facility] [address] [facility] [id number] [address] [place] [phone] Jun, Chronic pain syndrome G89.4 [facility] [address] [facility] [id number] [address] [place] [id number] 21 May, 2018 Chronic pain syndrome G89.4 [facility] [address] [facility] [id number] [address] [place] [id number] 14 May, 2018 [facility] [address] [facility] [id number] [address] [place] [id number] 13 May, 2018 [facility] [address] [facility] [id number] [address] [place] [address] 13 May, 2018 Moderate persistent asthma w ith acute exacerbation J45.41 and Rheumatoid arthritis involving multiple sites with positive rheumatoid factor M05.89 [facility] [address] [facility] [id number] [address] [place] [address] May, Moderate persistent asthma w ith acute exacerbation J45.[address] [facility] [address] [id number] [address] [place] [address] Apr, Chronic pain syndrome G89.4 [facility] [address] [id number] [address] [place] [address] Mar, High ankle sprain of right l ower extremity, subsequent encounter S93.431D ; Lumbago with sciatica, left side M54.42 and Lumbago with sciatica, right side M54.41 [facility] [address] [id number] [address] [place] [address] Mar, [facility] [address] [id number] [address] [place] [id number] Mar, Chronic pain syndrome G89.4 [facility] [address] [id number] [address] [place] [id number] Mar, [facility] [address] [id number] [address] [place] [id number] Mar, Asthma exacerbation J45.901 and Sprain of right ankle, unspecified ligament, subsequent encounter S93.401D [facility] [address] [id number] [address] [place] [address] Feb, Injury of right ankle, initi al encounter S99.911A [facility] [address] [id number] [address] [place] [phone] Feb, Chronic pain syndrome G89.4 [facility] [address] [id number] [address] [place] [id number] Feb, Chronic pain syndrome G89.4 [facility] [address] [facility] [id number] [address] [place] [phone] Feb, Moderate persistent asthma w ith acute exacerbation J45.41 and Persistent cough for [address] R05 [facility] [address] [facility] [id number] [address] [place] [address] January, [place] [address] [facility] [id number] [address] [place] [id number] January, Moderate persistent asthma w ith acute exacerbation J45.41 [facility] [address] [facility] [id number] [address] [place] [phone] January, Chronic pain syndrome G89.4 [place] [id number] [place] [address] 14 Jan, 2018 Tachycardia R00.0 and Modera te persistent asthma with acute exacerbation J45.41 [place] [id number] [place] [id number] 11 Jan, 2018 Tachycardia R00.0 ; Moderate persistent asthma with acute exacerbation J45.41 ; Gastroesophageal reflux disease, esophagitis presence not specified K21.9 ; Hyperlipidemia, unspecified hyperlipidemia E78.5 and Chronic pain syndrome G89.4 [place] [id number] [place] [id number] Dec, Medicare annual wellness vis it, initial [...] immunization Z23 and Chronic pain syndrome G89.4 [place] [id number] [place] [address] Dec, Chronic pain syndrome G89.4 [place] [id number] [place] [id number] Dec, [place] [id number] [place] [id number] Nov, [place] [id number] [place] [address] Nov, Chronic pain syndrome G89.4 [facility] [id number] [place] [address] Oct, Chronic pain syndrome G89.4 [facility] [id number] [place] [id number] Oct, Chronic kidney disease, stag e 1 N18.1 [place] [id number] [place] [address] Oct, Chronic prescription opiate use Z79.899 ; Cough R05 ; Asthma exacerbation J45.901 ; Elevated liver enzymes R74.8 ; Rheumatoid arthritis involving multiple sites with positive rheumatoid factor M05.89 and Chronic pain syndrome G89.4 [place] [id number] [place] [id number] Sep, Chronic pain syndrome G89.4 [place] [address] [id number] [place] [address] Sep, [place] [id number] [place] [address] Aug, Acute bronchitis, unspecifie d organism J20.9 [place] [id number] [place] [address] Aug, Chronic pain syndrome G89.4 [place] [id number] [place] [address] Jul, Chronic pain syndrome G89.4 [place] [id number] [place] [address] Jun, Chronic pain syndrome G89.4 [place] [id number] [place] [address] May, Rheumatoid arthritis 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.89 [facility] [id number] [place] [id number] May, Gastroesophageal reflux dise ase, esophagitis presence not specified K21.9 and Chronic pain syndrome G89.4 [facility] [id number] [place] [id number] May, [place] [id number] [place] [address] May, Esophageal candidiasis B37.8 1 and Chronic kidney disease, stage 1 N18.1 [place] [id number] [place] [address] May, Chronic kidney disease, stag e 1 N18.1 [place] [id number] [place] [address] May, Cough R05 ; Fever, unspecifi ed fever cause R50.9 ; Rheumatoid arthritis involving multiple sites with positive rheumatoid factor M05.89 and Chronic prescription opiate use Z79.899 [place] [id number] [place] [address] Apr, [place] [id number] [place] [address] Apr, Cough R05 [place] [address] [address] Apr, Asthma exacerbation J45.901 [place] [id number] [place] [address] Apr, [place] [address] [address] Apr, Generalized anxiety disorder F41.1 and Severe episode of recurrent major depressive disorder, without psychotic features F33.2 [place] [id number] [place] [address] Mar, [place] [id number] [place] [address] Feb, Chronic pain syndrome G89.4 [place] [id number] [place] [address] Feb, Acute non-recurrent maxillar y sinusitis J01.00 [facility] [address] [id number] [address] [place] [id number] Feb, Acute non-recurrent frontal sinusitis J01.10 [facility] [address] [id number] [address] [place] [address] Feb, Chronic pain syndrome G89.4 [facility] [address] [facility] [id number] [address] [place] [address] January, Acute cystitis with hematuri a N30.01 [place] [address] [facility] [id number] [address] [place] [address] January, Acute cystitis with hematuri a N30.01 ; Dysuria R30.0 and Moderate persistent asthma with acute exacerbation J45.41 [place] [address] [facility] [id number] [address] [place] [address] January, [place] [address] [facility] [id number] [address] [place] [address] January, Chronic pain syndrome G89.4 [place] [address] [facility] [id number] [address] [place] [id number] January, Asthma exacerbation J45.901 [place] [address] [facility] [id number] [address] [place] [address] January, Asthma exacerbation J45.901 [place] [address] [facility] [id number] [address] [place] [address] Dec, Cough R05 ; Numbness in both hands R20.0 ; Ground glass opacity present on imaging of lung R91.8 ; Hypoxia R09.02 and Asthma exacerbation J45.901 [place] [address] [facility] [id number] [address] [place] [address] Dec, Chronic pain syndrome G89.4 [place] [id number] [facility] [id number] [address] [place] [address] 28 Mar, 2017 Chronic prescription opiate use Z79.899 ; Rheumatoid arthritis involving multiple sites with positive rheumatoid factor M05.89 ; Moderate persistent asthma with acute exacerbation J45.41 ; Pneumonia of right lower lobe due to infectious organism J18.1 ; Chronic pain syndrome G89.4 ; Gastroesophageal reflux disease, esophagitis presence not specified K21.9 and Hyperlipidemia, unspecified hyperlipidemia E78.5 [place] [id number] [place] [address] Nov, Rheumatoid arthritis 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.89 [place] [address] [facility] [id number] [address] [place] [id number] Oct, [address] [address] Oct, Essential hypertension I10 [place] [id number] [place] [address] Sep, Hypoxia R09.02 and Ground gl ass opacity present on imaging of lung R91.8 [place] [address] [facility] [id number] [address] [place] [id number] Sep, Moderate persistent asthma w ith acute exacerbation J45.41 [facility] [id number] [place] [id number] Sep, [place] [address] [facility] [id number] [address] [place] [address] Sep, Chronic constipation K59.00 and Moderate persistent asthma with acute exacerbation J45.41 [place] [address] [facility] [id number] [address] [place] [address] Sep, Moderate persistent asthma w ith acute exacerbation J45.41 [place] [address] [facility] [id number] [address] [place] [address] Aug, [place] [address] [facility] [id number] [address] [place] [phone] Aug, [place] [id number] [place] [id number] Aug, [facility] [address] [facility] [id number] [address] [place] [address] Aug, Rheumatoid arthritis 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.89 ; Essential hypertension I10 ; Hyperlipidemia, unspecified hyperlipidemia E78.5 ; Chronic constipation K59.00 and Moderate persistent asthma with acute exacerbation J45.41 [place] [id number] [place] [address] Aug, Bronchitis J40 [facility] [id number] [place] [address] Aug, Rheumatoid arthritis 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.89 [place] [id number] [place] [phone] Aug, Pharyngitis, unspecified pablito ology J02.9 and Acute nasopharyngitis J00 [place] [address] [place] [id number] [place] [phone] Aug, [facility] [id number] [place] [address] Jul, [place] [id number] [place] [address] Jul, Rheumatoid arthritis 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.89 ; Essential hypertension I10 ; Hyperlipidemia, unspecified hyperlipidemia E78.5 ; Rash R21 ; Mild persistent asthma with acute exacerbation J45.31 ; Hematuria R31.9 ; Osteoporosis M81.0 and Gastroesophageal reflux disease, esophagitis presence not specified K21.9 [facility] [address] [facility] [id number] [address] [place] [id number] Jun, [place] [address] [place] [id number] [place] [address] Jun, Dysuria R30.0 [facility] [address] [facility] [id number] [address] [place] [id number] Jun, Acute non-recurrent maxillar y sinusitis J01.[address] [facility] [address] [facility] [id number] [address] [place] [id number] [address], [address] [facility] [address] [facility] [id number] [address] [place] [phone] May, [place] [address] [place] [id number] [place] [address] Apr, Chronic prescription opiate use Z79.899 and Rheumatoid arthritis involving multiple sites with positive rheumatoid factor M05.89 [place] [address] [place] [id number] [place] [id number] Mar, [place] [address] [place] [address] [id number] [place] [address] Feb, Dizziness of unknown cause R 42 and Other chronic pain G89.29 [place] [address] [place] [id number] [place] [id number] Feb, [place] [address] [place] [id number] [place] [phone] Feb, Shortness of breath R06.02 [place] [address] [place] [id number] [place] [phone] January, [place] [address] [place] [id number] [place] [phone] January, Rheumatoid arthritis 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.89 ; Chronic prescription opiate use Z79.899 ; Hyperlipidemia, unspecified hyperlipidemia E78.5 ; Cough R05 ; Exposure to pneumonia Z20.828 ; Diarrhea, unspecified type R19.7 ; Weight loss R63.4 ; Lumbago with sciatica, right side M54.41 and Lumbago with sciatica, left side M54.42 [place] [address] [place] [id number] [place] [phone] Dec, [place] [address] [place] [id number] [place] [phone] Dec, Bronchitis J40 [facility] [address] [facility] [id number] [address] [place] [phone] Nov, [facility] [address] [facility] [id number] [address] [place] [phone] Nov, [facility] [address] [place] [id number] [place] [phone] Nov, [facility] [address] [facility] [id number] [place] [phone] Nov, Bloody diarrhea R19.7 ; [place] n wall thickening K63.9 ; Shortness of breath R06.02 and Bladder wall thickening N32.89 [facility] [id number] [place] [id number] 15 Oct, [address] [facility] [id number] [place] [id number] 15 Oct, 2015 [facility] [address] [place] [place] [id number] [address] [place] [id number] Oct, Toothache K08.8 [facility] [id number] [place] [id number] 11 Oct, [address] [facility] [address] [id number] [address] [place] [phone] Oct, [facility] [id number] [place] [phone] Sep, [facility] [address] [id number] [address] [place] [id number] 13 Sep, 2015 Burning [address] urination R30.0 [facility] [address] [id number] [address] [place] [phone] 12 Sep, 2015 Hematuria R31.9 ; Rheumatoid arthritis involving multiple sites with positive rheumatoid factor M05.89 and Rheumatoid arthritis flare M06.9 [facility] [address] [id number] [address] [place] [id number] Aug, Hyperlipidemia, unspecified hyperlipidemia E78.[address] [facility] [address] [facility] [id number] [address] [place] [id number] Aug, Hematuria R31.9 ; Chronic ki dney disease, stage 1 N18.1 and Hyperlipidemia, unspecified hyperlipidemia E78.5 [place] [address] [facility] [id number] [address] [place] [phone] Aug, Rheumatoid arthritis 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.89 ; Asthma exacerbation J45.901 ; Hematuria R31.9 ; Hyperlipidemia, unspecified hyperlipidemia E78.5 and Chronic kidney disease, stage 1 N18.1 [place] [address] [address] [facility] [id number] [address] [place] [id number] Aug, [place] [address] [place] [id number] [address] [place] [id number] Jul, [facility] [address] [facility] [id number] [address] [place] [id number] Jul, Lumbosacral radiculopathy M5 4.17 [place] [address] [address] [facility] [id number] [address] [place] [id number] Jul, [facility] [address] [place] [id number] [address] [place] [phone] Jun, Rheumatoid arthritis 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.89 ; Hyperlipidemia, unspecified hyperlipidemia E78.5 ; Lumbosacral radiculopathy M54.17 ; Carpal tunnel syndrome, right upper limb G56.01 and Carpal tunnel syndrome, left upper limb G56.02 [facility] [address] [facility] [id number] [address] [place] [phone] Jun, [place] [address] [address] [facility] [id number] [address] [place] [phone] May, Lumbar radicular pain 724.[address] [facility] [address] [facility] [id number] [address] [place] [id number] 08 May, 2015 Rheumatoid arthritis 714.0 ; Lumbar radicular pain 724.4 ; Burn 949.0 and Thoracic back pain 724.1 [facility] [address] [facility] [id number] [address] [place] [id number] [address], [address] [facility] [address] [facility] [id number] [address] [place] [phone] May, [facility] [address] [facility] [id number] [address] [place] [phone] Apr, [facility] [address] [facility] [id number] [address] [place] [phone] Mar, Hyperlipidemia 272.4 [facility] [address] [facility] [id number] [address] [place] [phone] Mar, [facility] [address] [facility] [id number] [address] [place] [phone] Mar, [facility] [address] [facility] [id number] [address] [place] [phone] Mar, Diarrhea 787.91 ; Chronic ki dney disease, unspecified 585.9 ; Hyperlipidemia 272.[address] [facility] [address] [facility] [id number] [address] [place] [phone] Mar, [facility] [address] [facility] [id number] [address] [place] [phone] Mar, Gastroenteritis 558.9 [facility] [address] [facility] [id number] [address] [place] [phone] Feb, [facility] [address] [facility] [id number] [address] [place] [phone] January, [facility] [address] [facility] [id number] [address] [place] [phone] January, [facility] [address] [facility] [id number] [address] [place] [phone] 14 Dec, 2014 [facility] [address] [id number] [address] [place] [address], [place] [id number] Dec, [facility] [address] [id number] [address] [place] [address], [place] [id number] 20 Nov, 2014 [facility] [address] [id number] [address] [place] [address], [place] [id number] 20 Nov, 2014 [facility] [address] [id number] [address] [place] [address], [place] [id number] Nov, [facility] [address] [id number] [address] [place] [address], [place] [id number] Nov, [facility] [address] [id number] [address] [place] [address], [place] [id number] Nov, [facility] [address] [id number] [address] [place] [address], [place] [id number] Nov, [facility] [address] [id number] [address] [place] [address], [place] [id number] Oct, [facility] [address] [id number] [address] [place] [address], [place] [id number] Oct, [facility] [address] [id number] [address] [place] [address], [place] [id number] Sep, [facility] [address] [id number] [address] [place] [address], [place] [id number] Sep, [facility] [address] [id number] [address] [place] [address], [place] [id number] Sep, [facility] [address] [id number] [address] [place] [address], [place] [id number] Sep, [facility] [address] [id number] [address] [place] [address], [place] [id number] Sep, [facility] [address] [id number] [address] [place] [address], [place] [id number] Sep, [facility] [address] [id number] [address] [place] [address], [place] [id number] Aug, [facility] [address] [id number] [address] [place] [address], [place] [id number] Aug, [facility] [address] [id number] [address] [place] [address], [place] [id number] Aug, [facility] [address] [id number] [address] [place] [address], [place] [id number] Aug, [facility] [address] [id number] [address] [place] [address], [place] [id number] Jul, [facility] [address] [id number] [address] [place] [address], [place] [id number] Jul, [facility] [address] [id number] [address] [place] [address], [place] [id number] Jul, [facility] [address] [id number] [address] [place] [address], [place] [id number] Jul, [facility] [address] [id number] [address] [place] [address], [place] [id number] Jul, [facility] [address] [id number] [address] [place] [address], [place] [id number] Jul, [facility] [address] [id number] [address] [place] [address], [place] [id number] Jul, [facility] [address] [id number] [address] [place] [address], [place] [id number] Jul, [facility] [address] [id number] [address] [place] [address], [place] [id number] Jul, [facility] [address] [id number] [address] [place] [address], [place] [id number] Jun, [facility] [address] [id number] [address] [place] [address], [place] [id number] Jun, [facility] [address] [id number] [address] [place] [address], [place] [id number] Jun, [facility] [address] [id number] [address] [place] [address], [place] [id number] 25 Sep, 2013 [facility] [address] [id number] [address] [place] [address], [place] [id number] 25 Sep, 2013 [facility] [address] [id number] [address] [place] [address], [place] [id number] 24 May, 2013 [facility] [address] [id number] [address] [place] [address], [place] [id number] 24 May, 2013 [facility] [address] [id number] [address] [place] [address], [place] [id number] 24 May, 2013 [facility] [address] [id number] [address] [place] [address], [place] [id number] 24 May, 2013 [facility] [address] [id number] [address] [place] [address], [place] [id number] 19 May, 2013 [facility] [address] [id number] [address] [place] [address], [place] [id number] 19 May, 2013 [facility] [address] [id number] [address] [place] [address], [place] [id number] 11 May, 2013 [facility] [address] [id number] [address] [place] [address], [place] [id number] 11 May, 2013 [facility] [address] [id number] [address] [place] [address], [place] [id number] 11 May, 2013 [facility] [address] [id number] [address] [place] [address], [place] [id number] 11 May, 2013 [facility] [address] [id number] [address] [place] [address], [place] [id number] 10 May, 2013 [facility] [address] [id number] [address] [place] [address], [place] [id number] 09 May, 2013 [facility] [address] [id number] [address] [place] [address], [place] [id number] 09 May, 2013 [facility] [address] [id number] [address] [place] [id number] May, [facility] [address] [facility] [id number] [address] [place] [id number] Apr, [facility] [address] [facility] [id number] [address] [place] [id number] Apr, [facility] [address] [facility] [id number] [address] [place] [id number] Aug, [facility] [address] [facility] [id number] [address] [place] [id number] Jul, IMMUNIZATIONS No Known Immunizations SOCIAL HISTORY [...]
--- OUTSIDE RECORDS SUMMARY | 2020-02-27 15:39 | XMS REPORT ---
Author Author Beba CORBIN [facility] Address [address] [place] [address] Care Team Providers Care Employee Relations Assistant Name Role Phone EMERALD EDWARD Unavailable PROBLEMS Type Condition ICD9-CM Code [id number] Code Onset Dates Condition S tatus SNOMED Code Problem Rheumatoid arthritis 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.89 Active 632518114 Problem Vitamin D deficiency E55.9 Active 49243828 Problem Chronic prescription opiate use Z79.899 Active 955236440 Problem Atrophy of left kidney N26.1 Active 186633275 Problem Colon wall thickening K63.9 Active 001979123 Problem Bladder wall thickening N32.89 Active 017887833 Problem Gastroesophageal reflux disease, esophagitis pre sence not specified K21.9 Active 391347196 Problem Pernicious anemia D51.0 Active 84 684663 Problem Osteoporosis M81.0 Active 1863496 6 Problem Hyperlipidemia, unspecified hyperlipidemia E78.5 Active 54560270 Problem Asthma exacerbation J45.901 Active 992213997 Problem Severe episode of recurrent major depressive disorder, without psychotic features F33.2 Active 71343270 Problem Generalized anxiety disorder F41.1 A ctive 10228317 Problem Chronic respiratory failure with hypoxia J96.11 Active 980294942 Problem Chronic pain syndrome G89.4 Active 757984638 Problem Chronic constipation K59.00 Active 951969701 Problem COPD exacerbation J44.1 Active 19 9112066 Problem Moderate persistent asthma with acute exacerbation J45.41 Active [id number] Problem Chronic kidney disease, stage 1 N18.1 Active 680480295 Problem Essential hypertension I10 Active 46571893 Problem Moderate persistent asthma without complication J4 5.40 Active 463715398 Problem Lumbago with sciatica, left side M54.42 Active 908424470 Problem Lumbago with sciatica, right side M54.41 Active 486327870604234 Problem Dependence on supplemental oxygen Z99.81 Active [id number] ALLERGIES No Information ENCOUNTERS Encounter Location Date Diagnosis [facility] [id number] [place] [address] 09 Dec, 2019 Rheumatoid arthritis 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.89 [facility] [address] [id number] [address] [place] [address] Dec, [facility] [address] [place] [id number] [place] [address] Nov, Rheumatoid arthritis 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.89 ; Acute pain of right knee M25.561 ; Fever, unspecified fever cause R50.9 ; Essential hypertension I10 ; Hyperlipidemia, unspecified hyperlipidemia E78.5 and Cough R05 [facility] [address] [place] [id number] [place] [address] Nov, Rheumatoid arthritis 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.89 [place] [address] [place] [id number] [place] [address] Oct, Rheumatoid arthritis 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.89 [facility] [address] [place] [id number] [address] [place] [address] Sep, Rheumatoid arthritis 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.89 [facility] [address] [id number] [place] [address] Aug, [facility] [address] [id number] [address] [place] [address] Aug, COPD exacerbation J44.1 and Right otitis media with effusion H65.91 [facility] [address] [id number] [place] [id number] Aug, Rheumatoid arthritis 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.89 [facility] [address] [id number] [place] [address] Aug, [facility] [address] [address] [id number] [place] [address] Aug, Rheumatoid arthritis 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.89 [place] [id number] [id number] [address] [place] [address] Jul, Essential hypertension I10 [facility] [address] [place] [id number] [place] [address] Jul, Severe episode of recurrent major depressive disorder, without psychotic features F33.2 [place] [address] [place] [id number] [place] [phone] Jul, Shortness of breath at rest R06.02 ; Cough R05 ; Rheumatoid arthritis involving multiple sites with positive rheumatoid factor M05.89 ; Chronic respiratory failure with hypoxia J96.11 ; Severe episode of recurrent major depressive disorder, without psychotic features F33.2 and Chronic pain syndrome G89.4 [place] [address] [place] [id number] [place] [id number] Jul, Gastroesophageal reflux dise ase, esophagitis presence not specified K21.9 ; Shortness of breath at rest R06.02 and Rheumatoid arthritis involving multiple sites with positive rheumatoid factor M05.89 [place] [address] [place] [id number] [place] [address] Jun, [place] [address] [id number] [address] [place] [address] Jun, Rheumatoid arthritis 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.89 [place] [address] [id number] [address] [place] [address] Jun, Rheumatoid arthritis 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.89 [place] [address] [id number] [address] [place] [address] Jun, Laryngitis J04.0 ; Cough R05 ; Acute non-recurrent maxillary sinusitis J01.00 ; Severe episode of recurrent major depressive disorder, without psychotic features F33.2 and Chronic respiratory failure with hypoxia J96.11 [place] [address] [id number] [address] [place], [place] [id number] 17 May, 2019 Rheumatoid arthritis 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.89 [facility] [address] [id number] [address] [place] [id number] 16 May, 2019 Shortness of breath R06.02 [facility] [address] [id number] [address] [place] [id number] 13 May, 2019 Shortness of breath R06.02 [facility] [address] [id number] [address] [place] [address] 13 May, 2019 Shortness of breath at rest R06.02 ; Tachypnea on examination R06.82 ; Cough, persistent R05 and Dysuria R30.0 [facility] [address] [id number] [place] [address] Apr, Rheumatoid arthritis 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.89 [facility] [address] [id number] [place] [address] Apr, [facility] [address] [id number] [place] [address] Apr, [facility] [address] [address] [id number] [place] [address] Mar, Rheumatoid arthritis 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.89 and Chronic constipation K59.00 [facility] [address] [id number] [address] [place] [id number] Mar, [facility] [address] [id number] [address] [place] [phone] Mar, Dizziness R42 and Nausea and vomiting, intractability of vomiting not specified, unspecified vomiting type R11.2 [facility] [address] [id number] [address] [place] [phone] Feb, Chronic pain syndrome G89.4 [place] [id number] [address] January, Chronic pain syndrome G89.4 [facility] [address] [id number] [address] [place] [address] Dec, [facility] [address] [id number] [address] [place] [address] Dec, [facility] [address] [id number] [place] [address] Dec, Asthma exacerbation J45.901 ; Essential hypertension I10 ; Hyperlipidemia, unspecified hyperlipidemia E78.5 ; Rheumatoid arthritis involving multiple sites with positive rheumatoid factor M05.89 ; Chronic pain syndrome G89.4 ; Chronic kidney disease, stage 1 N18.1 ; Chronic respiratory failure with hypoxia J96.11 and Dependence on supplemental oxygen Z99.81 [facility] [address] [id number] [place] [address] Dec, Chronic pain syndrome G89.4 [facility] [address] [id number] [place] [address] Nov, Chronic pain syndrome G89.4 [facility] [address] [place] [id number] [place] [address] Nov, [facility] [address] [address] [id number] [place] [address] Oct, Chronic pain syndrome G89.4 [facility] [address] [place] [id number] [place] [address] Oct, [facility] [address] [place] [id number] [place] [address] Oct, Viral upper respiratory trac t infection J06.9 ; Chronic constipation K59.00 ; Severe episode of recurrent major depressive disorder, without psychotic features F33.2 ; Moderate persistent asthma with acute exacerbation J45.41 ; Essential hypertension I10 ; Gastroesophageal reflux disease, esophagitis presence not specified K21.9 and Hyperlipidemia, unspecified hyperlipidemia E78.5 [facility] [address] [place] [id number] [place] [address] 05 Oct, 2018 [facility] [address] [id number] [address] [place] [id number] Sep, Chronic pain syndrome G89.4 [facility] [address] [id number] [address] [place] [address] Sep, Rheumatoid arthritis 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.89 ; Chronic constipation K59.00 ; Gastroesophageal reflux disease, esophagitis presence not specified K21.9 ; Asthma exacerbation J45.901 ; Severe episode of recurrent major depressive disorder, without psychotic features F33.2 ; Ganglion cyst M67.40 and Chronic prescription opiate use Z79.899 [facility] [address] [id number] [address] [place] [address] Aug, Cough R05 and Moderate persi stent asthma with acute exacerbation J45.41 [facility] [address] [id number] [address] [place] [address] Aug, Chronic pain syndrome G89.4 [facility] [address] [id number] [address] [place] [address] Jul, Chronic pain syndrome G89.4 [facility] [address] [id number] [address] [place] [address] Jul, Acute nasopharyngitis J00 [facility] [address] [id number] [address] [place] [address] Jun, [facility] [address] [id number] [address] [place] [address] Jun, Chronic pain syndrome G89.4 [facility] [address] [id number] [address] [place] [id number] 21 May, 2018 Chronic pain syndrome G89.4 [facility] [address] [id number] [address] [place] [address] 14 May, 2018 [facility] [address] [id number] [address] [place] [id number] 13 May, 2018 [facility] [address] [address] [id number] [place] [id number] 13 May, 2018 Moderate persistent asthma w ith acute exacerbation J45.41 and Rheumatoid arthritis involving multiple sites with positive rheumatoid factor M05.89 [facility] [address] [id number] [address] [place] [address] 12 May, 2018 Moderate persistent asthma w ith acute exacerbation J45.41 and Hypoxia R09.02 [facility] [address] [id number] [address] [place] [address] Apr, Chronic pain syndrome G89.4 [facility] [address] [id number] [address] [place] [address] Mar, High ankle sprain of right l ower extremity, subsequent encounter S93.431D ; Lumbago with sciatica, left side M54.42 and Lumbago with sciatica, right side M54.41 [facility] [address] [id number] [address] [place] [id number] Mar, [facility] [address] [id number] [address] [place] [address] Mar, Chronic pain syndrome G89.4 [facility] [address] [id number] [address] [place] [address] Mar, [facility] [address] [id number] [address] [place] [address] Mar, Asthma exacerbation J45.901 and Sprain of right ankle, unspecified ligament, subsequent encounter S93.401D [facility] [address] [id number] [address] [place] [id number] 30 Feb, 2018 Injury of right ankle, initi al encounter S99.911A [facility] [address] [id number] [address] [place] [address] Feb, Chronic pain syndrome G89.4 [facility] [address] [id number] [address] [place] [address] Feb, Chronic pain syndrome G89.4 [place] [id number] [place] [address] Feb, Moderate persistent asthma w ith acute exacerbation J45.41 and Persistent cough for 3 weeks or longer R05 [place] [address] [place] [id number] [place] [address] January, [place] [address] [place] [id number] [place] [phone] January, Moderate persistent asthma w ith acute exacerbation J45.41 [place] [address] [address] January, Chronic pain syndrome G89.[address] [address] January, Tachycardia R00.0 and Modera te persistent asthma with acute exacerbation J45.41 [place] [address] [address] January, Tachycardia R00.0 ; Moderate persistent asthma with acute exacerbation J45.41 ; Gastroesophageal reflux disease, esophagitis presence not specified K21.9 ; Hyperlipidemia, unspecified hyperlipidemia E78.5 and Chronic pain syndrome G89.4 [place] [address] [address] Dec, Medicare annual wellness vis it, initial [...] immunization Z23 and Chronic pain syndrome G89.4 [place] [address] [place] [id number] [place] [id number] Dec, Chronic pain syndrome G89.4 [place] [address] [address] Dec, [facility] [address] [id number] [address] [place] [phone] Nov, [facility] [address] [id number] [address] [place] [address] Nov, Chronic pain syndrome G89.4 [facility] [address] [id number] [address] [place] [address] Oct, Chronic pain syndrome G89.4 [facility] [address] [id number] [address] [place] [id number] Oct, Chronic kidney disease, stag e 1 N18.1 [facility] [address] [id number] [address] [place] [address] Oct, Chronic prescription opiate use Z79.899 ; Cough R05 ; Asthma exacerbation J45.901 ; Elevated liver enzymes R74.8 ; Rheumatoid arthritis involving multiple sites with positive rheumatoid factor M05.89 and Chronic pain syndrome G89.4 [facility] [address] [id number] [address] [place] [address] Sep, Chronic pain syndrome G89.4 [facility] [address] [id number] [address] [place] [id number] Sep, [facility] [address] [id number] [address] [place] [id number] Aug, Acute bronchitis, unspecifie d organism J20.9 [facility] [address] [id number] [address] [place] [address] Aug, Chronic pain syndrome G89.4 [facility] [address] [id number] [address] [place] [address] Jul, Chronic pain syndrome G89.4 [facility] [address] [id number] [address] [place] [address] Jun, Chronic pain syndrome G89.4 [facility] [address] [place] [id number] [place] [phone] May, Rheumatoid arthritis 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.89 [place] [address] [place] [id number] [place] [address] May, Gastroesophageal reflux dise ase, esophagitis presence not specified K21.9 and Chronic pain syndrome G89.4 [place] [address] [address] May, [place] [address] [address] May, Esophageal candidiasis B37.8 1 and Chronic kidney disease, stage 1 N18.1 [place] [address] [address] May, Chronic kidney disease, stag e 1 N18.1 [place] [address] [address] May, Cough R05 ; Fever, unspecifi ed fever cause R50.9 ; Rheumatoid arthritis involving multiple sites with positive rheumatoid factor M05.89 and Chronic prescription opiate use Z79.899 [place] [address] [address] Apr, [place] [address] [address] Apr, Cough R05 [place] [address] [address] Apr, Asthma exacerbation J45.901 [place] [address] [place] [id number] [address] [place] [address] Apr, [place] [address] [address] Apr, Generalized anxiety disorder F41.1 and Severe episode of recurrent major depressive disorder, without psychotic features F33.2 [place] [address] [address] Mar, [facility] [address] [id number] [address] [place] [address] Feb, Chronic pain syndrome G89.4 [facility] [address] [id number] [address] [place] [id number] Feb, Acute non-recurrent maxillar y sinusitis J01.00 [facility] [address] [id number] [address] [place] [address] Feb, Acute non-recurrent frontal sinusitis J01.10 [facility] [address] [id number] [address] [place] [address] Feb, Chronic pain syndrome G89.4 [facility] [address] [id number] [address] [place] [address] January, Acute cystitis with hematuri a N30.01 [place] [address] [id number] [address] [place] [address] January, Acute cystitis with hematuri a N30.01 ; Dysuria R30.0 and Moderate persistent asthma with acute exacerbation J45.41 [place] [address] [id number] [address] [place] [address] January, [place] [address] [id number] [address] [place] [address] January, Chronic pain syndrome G89.4 [facility] [address] [id number] [address] [place] [address] January, Asthma exacerbation J45.901 [place] [address] [place] [id number] [place] [address] January, Asthma exacerbation J45.901 [place] [address] [place] [id number] [place] [address] Dec, Cough R05 ; Numbness in both hands R20.0 ; Ground glass opacity present on imaging of lung R91.8 ; Hypoxia R09.02 and Asthma exacerbation J45.901 [place] [address] [id number] [address] [place] [address] Dec, Chronic pain syndrome G89.4 [place] [address] [place] [id number] [place] [address] Nov, Chronic prescription opiate use Z79.899 ; Rheumatoid arthritis involving multiple sites with positive rheumatoid factor M05.89 ; Moderate persistent asthma with acute exacerbation J45.41 ; Pneumonia of right lower lobe due to infectious organism J18.1 ; Chronic pain syndrome G89.4 ; Gastroesophageal reflux disease, esophagitis presence not specified K21.9 and Hyperlipidemia, unspecified hyperlipidemia E78.5 [place] [address] [address] Nov, Rheumatoid arthritis 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.89 [place] [address] [address] Oct, [place] [address] [place] [id number] [address] [place] [address] Oct, Essential hypertension I10 [place] [address] [address] Sep, Hypoxia R09.[address] ass opacity present on imaging of lung R91.8 [place] [address] [address] Sep, Moderate persistent asthma w ith acute exacerbation J45.41 [facility] [address] [id number] Sep, [place] [address] [place] [id number] [place] [address] Sep, Chronic constipation K59.00 and Moderate persistent asthma with acute exacerbation J45.41 [place] [address] [place] [id number] [place] [address] Sep, Moderate persistent asthma w ith acute exacerbation J45.41 [place] [address] [place] [address] Aug, [facility] [address] [id number] [address] [place] [address] Aug, [facility] [address] [id number] [address] [place] [address] Aug, [facility] [address] [id number] [address] [place] [address] Aug, Rheumatoid arthritis 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.89 ; Essential hypertension I10 ; Hyperlipidemia, unspecified hyperlipidemia E78.5 ; Chronic constipation K59.00 and Moderate persistent asthma with acute exacerbation J45.41 [place] [address] [id number] [address] [place] [address] Aug, Bronchitis J40 [facility] [address] [place] [id number] [place] [address] Aug, Rheumatoid arthritis 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.89 [facility] [address] [id number] [address] [place] [address] [id number] Aug, Pharyngitis, unspecified pablito ology J02.9 and Acute nasopharyngitis J00 [facility] [address] [id number] [address] [place] [id number] Aug, [facility] [address] [id number] [address] [place] [id number] Jul, [facility] [id number] [place] [id number] Jul, Rheumatoid arthritis 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.89 ; Essential hypertension I10 ; Hyperlipidemia, unspecified hyperlipidemia E78.5 ; Rash R21 ; Mild persistent asthma with acute exacerbation J45.31 ; Hematuria R31.9 ; Osteoporosis M81.0 and Gastroesophageal reflux disease, esophagitis presence not specified K21.9 [facility] [address] [id number] [address] [place] [id number] Jun, [facility] [address] [id number] [address] [place] [address] Jun, Dysuria R30.0 [facility] [address] [id number] [address] [place] [id number] 05 Jun, 2016 Acute non-recurrent maxillar y sinusitis J01.00 and Dysuria R30.0 [facility] [address] [id number] [address] [place] [phone] 16 May, 2016 [facility] [address] [id number] [address] [place] [id number] May, [facility] [id number] [place] [phone] Apr, Chronic prescription opiate use Z79.899 and Rheumatoid arthritis involving multiple sites with positive rheumatoid factor M05.89 [facility] [address] [id number] [address] [place] [phone] Mar, [facility] [address] [id number] [address] [place] [id number] Feb, Dizziness of unknown cause R 42 and Other chronic pain G89.29 [place] [address] [id number] [address] [place] [id number] Feb, [facility] [address] [id number] [address] [place] [id number] Feb, Shortness of breath R06.02 [facility] [address] [id number] [address] [place] [id number] January, [place] [address] [id number] [address] [place] [id number] January, Rheumatoid arthritis 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.89 ; Chronic prescription opiate use Z79.899 ; Hyperlipidemia, unspecified hyperlipidemia E78.5 ; Cough R05 ; Exposure to pneumonia Z20.828 ; Diarrhea, unspecified type R19.7 ; Weight loss R63.4 ; Lumbago with sciatica, right side M54.41 and Lumbago with sciatica, left side M54.42 [facility] [address] [id number] [address] [place] [id number] Dec, [facility] [address] [id number] [address] [place] [id number] Dec, Bronchitis J40 [facility] [address] [id number] [address] [place] [phone] Nov, [facility] [address] [id number] [address] [place] [id number] Nov, [facility] [address] [id number] [address] [place] [id number] Nov, [facility] [address] [id number] [address] [place] [id number] Nov, Bloody diarrhea R19.7 ; [place] n wall thickening K63.9 ; Shortness of breath R06.02 and Bladder wall thickening N32.89 [facility] [id number] [place] [id number] 15 Oct, 2015 Dental examination Z01.20 [facility] [address] [id number] [address] [place] [id number] 15 Oct, 2015 [facility] [address] [id number] [address] [place] [id number] 15 Oct, 2015 Toothache K08.8 [facility] [id number] [place] [address] [id number] 11 Oct, 2015 Dental examination Z01.20 [facility] [address] [id number] [address] [place] [id number] 02 Oct, 2015 [facility] [address] [id number] [address] [place] [id number] Sep, [facility] [address] [id number] [address] [place] [id number] Sep, Burning with urination R30.0 [facility] [address] [id number] [address] [place] [id number] Sep, Hematuria R31.9 ; Rheumatoid arthritis involving multiple sites with positive rheumatoid factor M05.89 and Rheumatoid arthritis flare M06.9 [facility] [address] [id number] [address] [place] [id number] Aug, Hyperlipidemia, unspecified hyperlipidemia E78.5 and Hematuria R31.9 [place] [address] [id number] [address] [place] [id number] Aug, Hematuria R31.9 ; Chronic ki dney disease, stage 1 N18.1 and Hyperlipidemia, unspecified hyperlipidemia E78.5 [place] [address] [id number] [address] [place] [id number] Aug, Rheumatoid arthritis 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.89 ; Asthma exacerbation J45.901 ; Hematuria R31.9 ; Hyperlipidemia, unspecified hyperlipidemia E78.5 and Chronic kidney disease, stage 1 N18.1 [place] [address] [id number] [address] [place] [id number] Aug, [place] [address] [id number] [address] [place] [phone] Jul, [place] [address] [id number] [address] [place] [id number] Jul, Lumbosacral radiculopathy M5 4.17 [place] [address] [id number] [address] [place] [id number] Jul, [place] [address] [id number] [address] [place] [id number] Jun, Rheumatoid arthritis 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.89 ; Hyperlipidemia, unspecified hyperlipidemia E78.5 ; Lumbosacral radiculopathy M54.17 ; Carpal tunnel syndrome, right upper limb G56.01 and Carpal tunnel syndrome, left upper limb G56.02 [place] [address] [id number] [address] [place] [phone] Jun, [facility] [address] [id number] [address] [place] [phone] May, Lumbar radicular pain 724.4 and Dysuria 788.1 [facility] [address] [id number] [address] [place] [phone] May, Rheumatoid arthritis 714.0 ; Lumbar radicular pain 724.4 ; Burn 949.0 and Thoracic back pain 724.1 [facility] [address] [id number] [address] [place] [id number] May, [facility] [address] [id number] [address] [place] [id number] May, [facility] [address] [id number] [address] [place] [phone] Apr, [facility] [address] [id number] [address] [place] [id number] Mar, Hyperlipidemia 272.4 [facility] [address] [id number] [address] [place] [id number] Mar, [facility] [address] [id number] [address] [place] [id number] Mar, [facility] [address] [id number] [address] [place] [phone] Mar, Diarrhea 787.91 ; Chronic ki dney disease, unspecified 585.9 ; Hyperlipidemia 272.4 and Asthma 493.90 [facility] [address] [id number] [address] [place] [id number] Mar, [facility] [address] [id number] [address] [place] [id number] Mar, Gastroenteritis 558.9 [facility] [address] [id number] [address] [place] [id number] Feb, [facility] [address] [id number] [address] [place] [address] [place] [id number] January, [facility] [address] [id number] [address] [place] [address], [place] [id number] January, [facility] [address] [id number] [address] [place] [address], [place] [id number] Dec, [facility] [address] [id number] [address] [place] [address], [place] [id number] Dec, [facility] [address] [id number] [address] [place] [address], [place] [phone] Nov, [facility] [address] [id number] [address] [place] [address], [place] [phone] Nov, [facility] [address] [id number] [address] [place] [address], [place] [id number] Nov, [facility] [address] [id number] [address] [place] [address], [place] [phone] Nov, [facility] [address] [id number] [address] [place] [address], [place] [phone] Nov, [facility] [address] [id number] [address] [place] [address], [place] [id number] Nov, [facility] [address] [id number] [address] [place] [address], [place] [id number] Oct, [facility] [address] [id number] [address] [place] [address], [place] [id number] Oct, [facility] [address] [id number] [address] [place] [address], [place] [id number] Sep, [facility] [address] [id number] [address] [place] [address], [place] [id number] Sep, [facility] [address] [id number] [address] [place] [address], [place] [id number] Sep, [facility] [address] [id number] [address] [place] [address], [place] [id number] Sep, [facility] [address] [id number] [address] [place] [address], [place] [id number] Sep, [facility] [address] [id number] [address] [place] [address], [place] [id number] Sep, [facility] [address] [id number] [address] [place] [address], [place] [id number] Aug, [facility] [address] [id number] [address] [place] [address], [place] [id number] Aug, [facility] [address] [id number] [address] [place] [address], [place] [id number] Aug, [facility] [address] [id number] [address] [place] [address], [place] [id number] Aug, [facility] [address] [id number] [address] [place] [address], [place] [id number] Jul, [facility] [address] [id number] [address] [place] [address], [place] [id number] Jul, [facility] [address] [id number] [address] [place] [address], [place] [id number] Jul, [facility] [address] [id number] [address] [place] [address], [place] [id number] Jul, [facility] [address] [id number] [address] [place] [address], [place] [id number] Jul, [facility] [address] [id number] [address] [place] [address], [place] [id number] Jul, [facility] [address] [id number] [address] [place] [address], [place] [id number] Jul, [facility] [address] [id number] [address] [place] [address], [place] [id number] Jul, [facility] [address] [id number] [address] [place] [address], [place] [id number] Jul, [facility] [address] [id number] [place] [address] 31 Jun, 2014 [facility] [address] [id number] [address] [place] [address], [place] [id number] 15 Jun, 2014 [facility] [address] [id number] [address] [place] [address], [place] [id number] 15 Jun, 2014 [facility] [address] [id number] [address] [place] [address], [place] [id number] 25 May, 2013 [facility] [address] [id number] [address] [place] [address], [place] [id number] 25 May, 2013 [facility] [address] [id number] [address] [place] [address], [place] [id number] 24 May, 2013 [facility] [address] [id number] [address] [place] [address], [place] [id number] 24 May, 2013 [facility] [address] [id number] [address] [place] [address], [place] [id number] 24 May, 2013 [facility] [address] [id number] [address] [place] [address], [place] [id number] 24 May, 2013 [facility] [address] [id number] [address] [place] [address], [place] [id number] 19 May, 2013 [facility] [address] [id number] [address] [place] [address], [place] [id number] 19 May, 2013 [facility] [address] [id number] [address] [place] [address], [place] [id number] 11 May, 2013 [facility] [address] [id number] [address] [place] [address], [place] [id number] 11 May, 2013 [facility] [address] [id number] [address] [place] [address], [place] [id number] 11 May, 2013 [facility] [address] [id number] [address] [place] [address], [place] [id number] 11 May, 2013 [facility] [address] [id number] [address] [place] [address], [place] [id number] 10 May, 2013 [facility] [address] [id number] [address] [place] [phone] May, [facility] [address] [id number] [address] [place] [id number] May, [facility] [address] [id number] [address] [place] [id number] May, [facility] [address] [id number] [address] [place] [id number] Apr, [facility] [address] [id number] [address] [place] [id number] Apr, [facility] [address] [id number] [address] [place] [id number] Aug, [facility] [address] [id number] [address] [place] [id number] Jul, IMMUNIZATIONS No Known Immunizations SOCIAL HISTORY Never Assessed REASON FOR VISIT PLAN OF CARE VITAL SIGNS MEDICATIONS Unknown Medications RESULTS No Results PROCEDURES Procedure Date Ordered Result Body Site COMPLETE CBC W/AUTO DIFF WBC May 29, 2014 ASSAY THYROID STIM HORMONE May 29, 2014 ASSAY OF MAGNESIUM May 29, 2014 VITAMIN B-12 May 29, 2014 LIPID PANEL May 29, 2014 COMPREHEN METABOLIC PANEL May 29, 2014 VENIPUNCT, ROUTINE* May 29, 2014 INSTRUCTIONS MEDICATIONS ADMINISTERED No Known Medications MEDICAL [...]
--- OUTSIDE RECORDS SUMMARY | 2020-02-27 15:40 | XMS REPORT ---
Author Author Beba CORBIN [facility] Address [address] [place] [address] Care Team Providers Care Client Service Executive Name Role Phone EMERALD EDWARD Unavailable PROBLEMS Type Condition ICD9-CM Code ZBX94-LY Code Onset Dates Condition S tatus SNOMED Code Problem Essential hypertension I10 Active 69998680 Problem Chronic constipation K59.00 Active 889008243 Problem Atrophy of left kidney N26.1 Active 543215413 Problem Vitamin D deficiency E55.9 Active 31759327 Problem Colon wall thickening K63.9 Active 754164052 Problem Chronic prescription opiate use Z79.899 Active 951115503 Problem Gastroesophageal reflux disease, esophagitis pre sence not specified K21.9 Active 512136758 Problem Hyperlipidemia, unspecified hyperlipidemia E78.5 Active 37787667 Problem Bladder wall thickening N32.89 Active 046644654 Problem Chronic pain syndrome G89.4 Active 021513323 Problem Asthma exacerbation J45.901 Active 066631685 Problem Severe episode of recurrent major depressive disorder, without psychotic features F33.2 Active 56378142 Problem Dependence on supplemental oxygen Z99.81 Active 394144303740 Problem Moderate persistent asthma with acute exacerbation J45.41 Active [id number] Problem Rheumatoid arthritis 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.89 Active 397005039 Problem Chronic respiratory failure with hypoxia J96.11 Active 342499142 Problem Osteoporosis M81.0 Active 4379851 6 Problem Pernicious anemia D51.0 Active 84 763186 Problem Chronic kidney disease, stage 1 N18.1 Active 550220800 Problem Generalized anxiety disorder F41.1 A ctive 87070835 Problem Moderate persistent asthma without complication J4 5.40 Active 727961405 Problem Lumbago with sciatica, left side M54.42 Active 557915724 Problem Lumbago with sciatica, right side M54.41 Active [id number] ALLERGIES No Information ENCOUNTERS Encounter Location Date Diagnosis [facility] [address] [facility] [id number] [address] [place] [address] Apr, Rheumatoid arthritis 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.89 [facility] [address] [facility] [id number] [address] [place] [id number] Apr, [facility] [address] [facility] [id number] [address] [place] [id number] Apr, [facility] [address] [place] [id number] [address] [place] [address] Mar, Rheumatoid arthritis 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.89 and Chronic constipation K59.00 [facility] [address] [facility] [id number] [address] [place] [id number] Mar, [facility] [address] [place] [id number] [address] [place] [address] Mar, Dizziness R42 and Nausea and vomiting, intractability of vomiting not specified, unspecified vomiting type R11.2 [facility] [address] [place] [id number] [address] [place] [address] Feb, Chronic pain syndrome G89.[address] [address] January, Chronic pain syndrome G89.4 [facility] [address] [facility] [id number] [address] [place] [address] Dec, [facility] [address] [place] [id number] [address] [place] [id number] Dec, [facility] [address] [place] [id number] [address] [place] [address] Dec, Asthma exacerbation J45.901 ; Essential hypertension I10 ; Hyperlipidemia, unspecified hyperlipidemia E78.5 ; Rheumatoid arthritis involving multiple sites with positive rheumatoid factor M05.89 ; Chronic pain syndrome G89.4 ; Chronic kidney disease, stage 1 N18.1 ; Chronic respiratory failure with hypoxia J96.11 and Dependence on supplemental oxygen Z99.81 [place] [address] [place] [id number] [address] [place] [address] Dec, Chronic pain syndrome G89.4 [facility] [address] [address] Nov, Chronic pain syndrome G89.4 [facility] [address] [address] Nov, [facility] [address] [address] Oct, Chronic pain syndrome G89.4 [facility] [address] [address] Oct, [facility] [address] [address] Oct, Viral upper respiratory trac t infection J06.9 ; Chronic constipation K59.00 ; Severe episode of recurrent major depressive disorder, without psychotic features F33.2 ; Moderate persistent asthma with acute exacerbation J45.41 ; Essential hypertension I10 ; Gastroesophageal reflux disease, esophagitis presence not specified K21.9 and Hyperlipidemia, unspecified hyperlipidemia E78.5 [facility] [address] [address] 05 Oct, 2018 [facility] [address] [address] Sep, Chronic pain syndrome G89.4 [facility] [address] [address] Sep, Rheumatoid arthritis 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.89 ; Chronic constipation K59.00 ; Gastroesophageal reflux disease, esophagitis presence not specified K21.9 ; Asthma exacerbation J45.901 ; Severe episode of recurrent major depressive disorder, without psychotic features F33.2 ; Ganglion cyst M67.40 and Chronic prescription opiate use Z79.899 [facility] [address] [place] [id number] [address] [place] [address] Aug, Cough R05 and Moderate persi stent asthma with acute exacerbation J45.41 [facility] [address] [id number] [address] [place] [address] Aug, Chronic pain syndrome G89.4 [facility] [address] [id number] [address] [place] [address] Jul, Chronic pain syndrome G89.4 [facility] [address] [id number] [address] [place] [address] Jul, Acute nasopharyngitis J00 [facility] [address] [id number] [address] [place] [phone] Jun, [facility] [address] [id number] [address] [place] [address] Jun, Chronic pain syndrome G89.4 [facility] [address] [id number] [address] [place] [address] May, Chronic pain syndrome G89.4 [facility] [address] [id number] [address] [place] [id number] 14 May, 2018 [facility] [address] [id number] [address] [place] [id number] 13 May, 2018 [facility] [address] [id number] [address] [place] [address] 13 May, 2018 Moderate persistent asthma w ith acute exacerbation J45.41 and Rheumatoid arthritis involving multiple sites with positive rheumatoid factor M05.89 [facility] [address] [id number] [address] [place] [address] 12 May, 2018 Moderate persistent asthma w ith acute exacerbation J45.41 and Hypoxia R09.02 [facility] [address] [id number] [address] [place] [address] Apr, Chronic pain syndrome G89.4 [facility] [address] [id number] [address] [place] [address] Mar, High ankle sprain of right l ower extremity, subsequent encounter S93.431D ; Lumbago with sciatica, left side M54.42 and Lumbago with sciatica, right side M54.41 [facility] [address] [id number] [address] [place] [address] Mar, [facility] [address] [id number] [address] [place] [address] Mar, Chronic pain syndrome G89.4 [facility] [address] [id number] [address] [place] [address] Mar, [facility] [address] [id number] [address] [place] [address] Mar, Asthma exacerbation J45.901 and Sprain of right ankle, unspecified ligament, subsequent encounter S93.401D [facility] [address] [id number] [address] [place] [address] Feb, Injury of right ankle, initi al encounter S99.911A [facility] [address] [id number] [address] [place] [address] Feb, Chronic pain syndrome G89.4 [facility] [address] [id number] [address] [place] [address] Feb, Chronic pain syndrome G89.4 [facility] [address] [id number] [address] [place] [address] Feb, Moderate persistent asthma w [facility] acute exacerbation J45.41 and Persistent cough for 3 weeks or longer R05 [facility] [address] [id number] [address] [place] [id number] January, [facility] [address] [id number] [address] [place] [address] January, Moderate persistent asthma w ith acute exacerbation J45.41 [facility] [address] [id number] [address] [place] [address] January, Chronic pain syndrome G89.4 [facility] [address] [id number] [address] [place] [address] 14 Jan, 2018 Tachycardia R00.0 and Modera te persistent asthma with acute exacerbation J45.41 [place] [address] [address] 11 Jan, 2018 Tachycardia R00.0 ; Moderate persistent asthma with acute exacerbation J45.41 ; Gastroesophageal reflux disease, esophagitis presence not specified K21.9 ; Hyperlipidemia, unspecified hyperlipidemia E78.5 and Chronic pain syndrome G89.4 [place] [address] [place] [id number] [address] [place] [address] Dec, Medicare annual wellness vis it, initial [...] immunization Z23 and Chronic pain syndrome G89.4 [place] [address] [place] [id number] [address] [place] [address] Dec, Chronic pain syndrome G89.4 [place] [address] [place] [id number] [address] [place] [address] Dec, [place] [address] [place] [id number] [address] [place] [address] Nov, [place] [address] [place] [id number] [address] [place] [address] Nov, Chronic pain syndrome G89.4 [place] [address] [place] [id number] [address] [place] [address] Oct, Chronic pain syndrome G89.4 [place] [address] [place] [id number] [address] [place] [address] Oct, Chronic kidney disease, stag e 1 N18.1 [place] [address] [place] [address] Oct, Chronic prescription opiate use Z79.899 ; Cough R05 ; Asthma exacerbation J45.901 ; Elevated liver enzymes R74.8 ; Rheumatoid arthritis involving multiple sites with positive rheumatoid factor M05.89 and Chronic pain syndrome G89.4 [facility] [address] [place] [id number] [address] [place] [address] Sep, Chronic pain syndrome G89.4 [facility] [address] [address] Sep, [facility] [address] [address] Aug, Acute bronchitis, unspecifie d organism J20.9 [place] [address] [place] [id number] [place] [address] Aug, Chronic pain syndrome G89.4 [place] [address] [place] [id number] [place] [address] Jul, Chronic pain syndrome G89.4 [facility] [address] [place] [id number] [place] [address] Jun, Chronic pain syndrome G89.4 [facility] [address] [place] [id number] [place] [address] May, Rheumatoid arthritis 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.89 [facility] [address] [place] [id number] [address] [place] [address] May, Gastroesophageal reflux dise ase, esophagitis presence not specified K21.9 and Chronic pain syndrome G89.4 [facility] [address] [place] [id number] [address] [place] [address] May, [facility] [address] [place] [id number] [place] [address] May, Esophageal candidiasis B37.8 1 and Chronic kidney disease, stage 1 N18.1 [facility] [address] [place] [id number] [address] [place] [address] May, Chronic kidney disease, stag e 1 N18.1 [place] [address] [address] 05 May, 2017 Cough R05 ; Fever, unspecifi ed fever cause R50.9 ; Rheumatoid arthritis involving multiple sites with positive rheumatoid factor M05.89 and Chronic prescription opiate use Z79.899 [facility] [address] [place] [id number] [address] [place] [address] Apr, [facility] [address] [address] Apr, Cough R05 [place] [address] [address] Apr, Asthma exacerbation J45.901 [place] [address] [address] Apr, [facility] [address] [address] Apr, Generalized anxiety disorder F41.1 and Severe episode of recurrent major depressive disorder, without psychotic features F33.2 [place] [address] [address] Mar, [place] [address] [address] Feb, Chronic pain syndrome G89.4 [facility] [address] [place] [address] Feb, Acute non-recurrent maxillar y sinusitis J01.00 [place] [address] [place] [id number] [address] [place] [address] Feb, Acute non-recurrent frontal sinusitis J01.10 [place] [address] [place] [id number] [address] [place] [address] Feb, Chronic pain syndrome G89.4 [place] [address] [place] [id number] [address] [place] [address] January, Acute cystitis with hematuri a N30.01 [place] [address] [address] January, Acute cystitis with hematuri a N30.01 ; Dysuria R30.0 and Moderate persistent asthma with acute exacerbation J45.41 [place] [address] [address] January, [place] [address] [address] January, Chronic pain syndrome G89.4 [place] [address] [address] January, Asthma exacerbation J45.901 [place] [address] [address] January, Asthma exacerbation J45.901 [place] [address] [address] Dec, Cough R05 ; Numbness in both hands R20.0 ; Ground glass opacity present on imaging of lung R91.8 ; Hypoxia R09.02 and Asthma exacerbation J45.901 [place] [address] [address] Dec, Chronic pain syndrome G89.4 [place] [address] [address] Nov, Chronic prescription opiate use Z79.899 ; Rheumatoid arthritis involving multiple sites with positive rheumatoid factor M05.89 ; Moderate persistent asthma with acute exacerbation J45.41 ; Pneumonia of right lower lobe due to infectious organism J18.1 ; Chronic pain syndrome G89.4 ; Gastroesophageal reflux disease, esophagitis presence not specified K21.9 and Hyperlipidemia, unspecified hyperlipidemia E78.5 [place] [address] [address] Nov, Rheumatoid arthritis involvi multiple sites with positive rheumatoid factor M05.89 [facility] [address] [facility] [id number] [address] [place] [address] Oct, [facility] [address] [facility] [id number] [address] [place] [address] Oct, Essential hypertension I10 [facility] [address] [facility] [id number] [address] [place] [address] Sep, Hypoxia R09.02 and Ground gl ass opacity present on imaging of lung R91.8 [place] [address] [facility] [id number] [address] [place] [address] Sep, Moderate persistent asthma w ith acute exacerbation J45.41 [facility] [id number] [place] [id number] Sep, [facility] [address] [facility] [id number] [address] [place] [address] Sep, Chronic constipation K59.00 and Moderate persistent asthma with acute exacerbation J45.41 [facility] [address] [facility] [id number] [address] [place] [address] Sep, Moderate persistent asthma w ith acute exacerbation J45.41 [facility] [address] [facility] [id number] [address] [place] [address] Aug, [facility] [address] [facility] [id number] [address] [place] [address] Aug, [facility] [address] [facility] [id number] [address] [place] [address] Aug, [facility] [address] [facility] [id number] [address] [place] [address] Aug, Rheumatoid arthritis 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.89 ; Essential hypertension I10 ; Hyperlipidemia, unspecified hyperlipidemia E78.5 ; Chronic constipation K59.00 and Moderate persistent asthma with acute exacerbation J45.41 [facility] [address] [facility] [id number] [address] [place] [address] Aug, Bronchitis J40 [facility] [address] [facility] [id number] [address] [place] [address] Aug, Rheumatoid arthritis 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.89 [facility] [address] [place] [id number] [place] [address] Aug, Pharyngitis, unspecified pablito ology J02.9 and Acute nasopharyngitis J00 [facility] [address] [place] [id number] [place] [address] Aug, [facility] [address] [address] Jul, [facility] [address] [address] Jul, Rheumatoid arthritis 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.89 ; Essential hypertension I10 ; Hyperlipidemia, unspecified hyperlipidemia E78.5 ; Rash R21 ; Mild persistent asthma with acute exacerbation J45.31 ; Hematuria R31.9 ; Osteoporosis M81.0 and Gastroesophageal reflux disease, esophagitis presence not specified K21.9 [facility] [address] [address] Jun, [facility] [address] [address] Jun, Dysuria R30.0 [facility] [address] [place] [id number] [address] [place] [address] 05 Jun, 2016 Acute non-recurrent maxillar y sinusitis J01.00 and Dysuria R30.0 [facility] [address] [place] [id number] [address] [place] [address] 16 May, 2016 [facility] [address] [place] [id number] [place] [address] May, [facility] [address] [address] Apr, Chronic prescription opiate use Z79.899 and Rheumatoid arthritis involving multiple sites with positive rheumatoid factor M05.89 [facility] [address] [place] [id number] [address] [place] [address] Mar, [facility] [address] [place] [id number] [address] [place] [address] Feb, Dizziness of unknown cause R 42 and Other chronic pain G89.29 [facility] [address] [place] [id number] [address] [place] [address] Feb, [facility] [address] [place] [id number] [address] [place] [address] Feb, Shortness of breath R06.02 [facility] [address] [place] [id number] [address] [place] [address] January, [facility] [address] [address] January, Rheumatoid arthritis 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.89 ; Chronic prescription opiate use Z79.899 ; Hyperlipidemia, unspecified hyperlipidemia E78.5 ; Cough R05 ; Exposure to pneumonia Z20.828 ; Diarrhea, unspecified type R19.7 ; Weight loss R63.4 ; Lumbago with sciatica, right side M54.41 and Lumbago with sciatica, left side M54.42 [facility] [address] [place] [address] Dec, [facility] [address] [place] [id number] [address] [place] [address] Dec, Bronchitis J40 [facility] [address] [place] [id number] [address] [place] [address] Nov, [facility] [address] [place] [id number] [address] [place] [address] Nov, [facility] [address] [place] [id number] [address] [place] [address] Nov, [facility] [address] [facility] [id number] [address] [place] [address] Nov, Bloody diarrhea R19.7 ; Cobb n wall thickening K63.9 ; Shortness of breath R06.02 and Bladder wall thickening N32.89 [facility] [address] [id number] [address] [place] [address] [id number] 15 Oct, 2015 Dental examination Z01.20 [facility] [address] [id number] [address] [place] [address] 15 Oct, 2015 [facility] [address] [facility] [id number] [address] [place] [address] 15 Oct, 2015 Toothache K08.8 [facility] [address] [id number] [address] [place] [id number] 11 Oct, 2015 Dental examination Z01.20 [facility] [address] [facility] [id number] [address] [place] [address] 02 Oct, 2015 [facility] [address] [facility] [id number] [address] [place] [address] 18 Sep, 2015 [facility] [address] [place] [id number] [place] [address] Sep, Burning with urination R30.0 [place] [address] [facility] [id number] [address] [place] [address] Sep, Hematuria R31.9 ; Rheumatoid arthritis involving multiple sites with positive rheumatoid factor M05.89 and Rheumatoid arthritis flare M06.9 [place] [address] [facility] [id number] [address] [place] [address] Aug, Hyperlipidemia, unspecified hyperlipidemia E78.5 and Hematuria R31.9 [place] [address] [facility] [id number] [address] [place] [address] Aug, Hematuria R31.9 ; Chronic ki dney disease, stage 1 N18.1 and Hyperlipidemia, unspecified hyperlipidemia E78.5 [place] [address] [id number] [address] [place] [address] Aug, Rheumatoid arthritis 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.89 ; Asthma exacerbation J45.901 ; Hematuria R31.9 ; Hyperlipidemia, unspecified hyperlipidemia E78.5 and Chronic kidney disease, stage 1 N18.1 [facility] [address] [id number] [address] [place] [address] Aug, [facility] [address] [facility] [id number] [address] [place] [address] Jul, [facility] [address] [id number] [address] [place] [id number] Jul, Lumbosacral radiculopathy M5 4.17 [facility] [address] [place] [id number] [address] [place] [address] Jul, [facility] [address] [place] [id number] [place] [address] Jun, Rheumatoid arthritis 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.89 ; Hyperlipidemia, unspecified hyperlipidemia E78.5 ; Lumbosacral radiculopathy M54.17 ; Carpal tunnel syndrome, right upper limb G56.01 and Carpal tunnel syndrome, left upper limb G56.02 [facility] [address] [place] [id number] [address] [place] [address] Jun, [facility] [address] [place] [id number] [address] [place] [id number] 17 May, 2015 Lumbar radicular pain 724.4 and Dysuria 788.1 [facility] [address] [facility] [id number] [address] [place] [id number] 08 May, 2015 Rheumatoid arthritis 714.0 ; Lumbar radicular pain 724.4 ; Burn 949.0 and Thoracic back pain 724.1 [facility] [address] [id number] [address] [place] [id number] May, [facility] [address] [id number] [address] [place] [id number] May, [facility] [address] [facility] [id number] [address] [place] [phone] Apr, [facility] [address] [facility] [id number] [address] [place] [address] Mar, Hyperlipidemia 272.4 [facility] [address] [facility] [id number] [address] [place] [address] Mar, [facility] [address] [facility] [id number] [address] [place] [id number] Mar, [facility] [address] [facility] [id number] [address] [place] [id number] Mar, Diarrhea 787.91 ; Chronic ki dney disease, unspecified 585.9 ; Hyperlipidemia 272.4 and Asthma 493.90 [facility] [address] [facility] [id number] [address] [place] [id number] Mar, [facility] [address] [facility] [id number] [address] [place] [address] Mar, Gastroenteritis 558.9 [facility] [address] [facility] [id number] [address] [place] [phone] Feb, [facility] [address] [facility] [id number] [address] [place] [id number] January, [facility] [address] [facility] [id number] [address] [place] [id number] January, [facility] [address] [facility] [id number] [address] [place] [phone] Dec, [facility] [address] [facility] [id number] [address] [place] [id number] Dec, [facility] [address] [facility] [id number] [address] [place] [phone] Nov, [facility] [address] [facility] [id number] [address] [place] [phone] Nov, [facility] [address] [id number] [address] [place] [address], [place] [address] Nov, [facility] [address] [id number] [address] [place] [address], [place] [address] Nov, [facility] [address] [id number] [address] [place] [address], [place] [address] Nov, [facility] [address] [id number] [address] [place] [address], [place] [address] Nov, [facility] [address] [id number] [address] [place] [address], [place] [address] Oct, [facility] [address] [id number] [address] [place] [address], [place] [address] Oct, [facility] [address] [id number] [address] [place] [address], [place] [address] Sep, [facility] [address] [id number] [address] [place] [address], [place] [address] Sep, [facility] [address] [id number] [address] [place] [address], [place] [address] Sep, [facility] [address] [id number] [address] [place] [address], [place] [address] Sep, [facility] [address] [id number] [address] [place] [address], [place] [address] Sep, [facility] [address] [id number] [address] [place] [address], [place] [address] Sep, [facility] [address] [id number] [address] [place] [address], [place] [address] Aug, [facility] [address] [id number] [address] [place] [address], [place] [address] Aug, [facility] [address] [id number] [address] [place] [address], [place] [address] Aug, [facility] [address] [id number] [address] [place] [address], [place] [address] Aug, [facility] [address] [id number] [address] [place] [address], [place] [address] Jul, [facility] [address] [id number] [address] [place] [address], [place] [address] Jul, [facility] [address] [id number] [address] [place] [address], [place] [address] Jul, [facility] [address] [id number] [address] [place] [address], [place] [address] Jul, [facility] [address] [id number] [address] [place] [address], [place] [address] Jul, [facility] [address] [id number] [address] [place] [address], [place] [address] Jul, [facility] [address] [id number] [address] [place] [address], [place] [address] Jul, [facility] [address] [id number] [address] [place] [address], [place] [address] Jul, [facility] [address] [id number] [address] [place] [address], [place] [address] Jul, [facility] [address] [id number] [address] [place] [address], [place] [address] Jun, [facility] [address] [id number] [address] [place] [address], [place] [address] Jun, [facility] [address] [id number] [address] [place] [id number] Jun, [facility] [address] [id number] [address] [place] [address], [place] [address] May, [facility] [address] [id number] [address] [place] [address], [place] [address] May, [facility] [address] [id number] [address] [place] [address], [place] [address] 24 May, 2014 [facility] [address] [id number] [address] [place] [address] 24 Sep, 2013 [facility] [address] [id number] [address] [place] [address], [place] [address] 24 May, 2013 [facility] [address] [id number] [address] [place] [address], [place] [address] 24 May, 2013 [facility] [address] [id number] [address] [place] [address], [place] [address] 19 May, 2013 [facility] [address] [id number] [address] [place] [address], [place] [address] 19 May, 2013 [facility] [address] [id number] [address] [place] [address], [place] [address] 11 May, 2013 [facility] [address] [id number] [address] [place] [address], [place] [address] 11 May, 2013 [facility] [address] [id number] [address] [place] [address], [place] [address] 11 May, 2013 [facility] [address] [id number] [address] [place] [address], [place] [address] 11 May, 2013 [facility] [address] [id number] [address] [place] [address], [place] [address] 10 May, 2013 [facility] [address] [id number] [address] [place] [address], [place] [address] 09 May, 2013 [facility] [address] [id number] [address] [place] [address], [place] [address] 09 May, 2013 [facility] [address] [id number] [address] [place] [address], [place] [address] 08 May, 2013 [facility] [address] [id number] [address] [place] [address], [place] [address] Apr, [facility] [address] [id number] [address] [place] [address], [place] [address] Apr, [facility] [address] [id number] [address] [place] [address], [place] [address] Aug, [facility] [address] [facility] [id number] [address] [place] [address] Jul, IMMUNIZATIONS No Known Immunizations SOCIAL HISTORY Never Assessed REASON FOR VISIT PLAN OF CARE VITAL SIGNS Weight 150.79 lbs 2014-06-13 Temperature 97.4 degrees Fahrenheit 2014-06-13 Heart Rate 82 bpm 2014-06-13 Respiratory Rate 18 2014-06-13 Blood pressure systolic 124 mmHg 2014-06-13 Blood pressure diastolic 82 mmHg 2014-06-13 MEDICATIONS Unknown Medications RESULTS No Results PROCEDURES Procedure Date Ordered Result Body Site THER/PROPH/DIAG INJ, SC/IM Jun 13, 2014 INJ VIT B-12 CYNOCOBLMN TO 1000 MCG Jun 13, 2014 BASIC METABOLIC PANEL Jun 13, 2014 VENIPUNCT, ROUTINE* Jun 13, 2014 INSTRUCTIONS MEDICATIONS ADMINISTERED No Known Medications [...] Hospitalization History ACute Respiratory Distress with hypo nilda-H 09/22/16
--- OUTSIDE RECORDS SUMMARY | 2020-02-27 15:40 | XMS REPORT ---
Author Author Beba CARMONA [facility] Address [address] [place] [address] Care Team Providers Care General Road Supervisor Name Role Phone MAXX CARMONA Unavailable PROBLEMS Type Condition ICD9-CM Code VFD65-KS Code Onset Dates Condition S tatus SNOMED Code Problem Essential hypertension I10 Active 68270210 Problem Chronic constipation K59.00 Active 602810045 Problem Atrophy of left kidney N26.1 Active 059432469 Problem Vitamin D deficiency E55.9 Active 26116849 Problem Colon wall thickening K63.9 Active 636317431 Problem Chronic prescription opiate use Z79.899 Active 282868993 Problem Gastroesophageal reflux disease, esophagitis pre sence not specified K21.9 Active 696467659 Problem Hyperlipidemia, unspecified hyperlipidemia E78.5 Active 85420666 Problem Bladder wall thickening N32.89 Active 170950745 Problem Chronic pain syndrome G89.4 Active 634717643 Problem Asthma exacerbation J45.901 Active 419203035 Problem Severe episode of recurrent major depressive disorder, without psychotic features F33.2 Active 57845443 Problem Dependence on supplemental oxygen Z99.81 Active 485378477257 Problem Moderate persistent asthma with acute exacerbation J45.41 Active 990540432994639 Problem Rheumatoid arthritis 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.89 Active 174223406 Problem Chronic respiratory failure with hypoxia J96.11 Active 278099316 Problem Osteoporosis M81.0 Active 6788297 6 Problem Pernicious anemia D51.0 Active 84 634056 Problem Chronic kidney disease, stage 1 N18.1 Active 639731084 Problem Generalized anxiety disorder F41.1 A ctive 74115567 Problem Moderate persistent asthma without complication J4 5.40 Active 547574921 Problem Lumbago with sciatica, left side M54.42 Active 362342051 Problem Lumbago with sciatica, right side M54.41 Active [id number] ALLERGIES No Information ENCOUNTERS Encounter Location Date Diagnosis [facility] [address] [facility] [place] [id number] [address] [place] [address] Apr, Rheumatoid arthritis 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.89 [facility] [address] [facility] [place] [id number] [address] [place] [address] Apr, [facility] [address] [facility] [place] [id number] [address] [place] [address] Apr, [facility] [address] [facility] [place] [id number] [address] [place] [address] Mar, Rheumatoid arthritis 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.89 and Chronic constipation K59.00 [facility] [address] [facility] [place] [id number] [address] [place] [address] Mar, [facility] [address] [facility] [place] [id number] [address] [place] [address] Mar, Dizziness R42 and Nausea and vomiting, intractability of vomiting not specified, unspecified vomiting type R11.2 [facility] [address] [facility] [place] [id number] [address] [place] [address] Feb, Chronic pain syndrome G89.[address] [address] January, Chronic pain syndrome G89.4 [facility] [address] [facility] [place] [id number] [address] [place] [address] Dec, [facility] [address] [place] [id number] [address] [place] [address] Dec, [facility] [address] [place] [id number] [address] [place] [address] Dec, Asthma exacerbation J45.901 ; Essential hypertension I10 ; Hyperlipidemia, unspecified hyperlipidemia E78.5 ; Rheumatoid arthritis involving multiple sites with positive rheumatoid factor M05.89 ; Chronic pain syndrome G89.4 ; Chronic kidney disease, stage 1 N18.1 ; Chronic respiratory failure with hypoxia J96.11 and Dependence on supplemental oxygen Z99.81 [facility] [address] [place] [id number] [address] [place] [address] Dec, Chronic pain syndrome G89.4 [facility] [address] [address] Nov, Chronic pain syndrome G89.4 [facility] [address] [place] [id number] [address] [place] [address] Nov, [facility] [address] [address] Oct, Chronic pain syndrome G89.4 [facility] [address] [address] Oct, [facility] [address] [address] Oct, Viral upper respiratory trac t infection J06.9 ; Chronic constipation K59.00 ; Severe episode of recurrent major depressive disorder, without psychotic features F33.2 ; Moderate persistent asthma with acute exacerbation J45.41 ; Essential hypertension I10 ; Gastroesophageal reflux disease, esophagitis presence not specified K21.9 and Hyperlipidemia, unspecified hyperlipidemia E78.5 [facility] [address] [place] [id number] [address] [place] [address] Oct, [facility] [address] [place] [id number] [address] [place] [address] Sep, Chronic pain syndrome G89.4 [facility] [address] [place] [id number] [address] [place] [address] Sep, Rheumatoid arthritis 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.89 ; Chronic constipation K59.00 ; Gastroesophageal reflux disease, esophagitis presence not specified K21.9 ; Asthma exacerbation J45.901 ; Severe episode of recurrent major depressive disorder, without psychotic features F33.2 ; Ganglion cyst M67.40 and Chronic prescription opiate use Z79.899 [facility] [address] [place] [id number] [address] [place] [address] Aug, Cough R05 and Moderate persi stent asthma with acute exacerbation J45.41 [facility] [address] [id number] [address] [place] [address] Aug, Chronic pain syndrome G89.4 [facility] [address] [id number] [address] [place] [address] Jul, Chronic pain syndrome G89.4 [facility] [address] [id number] [address] [place] [address] Jul, Acute nasopharyngitis J00 [facility] [address] [id number] [address] [place] [address] Jun, [facility] [address] [id number] [address] [place] [address] Jun, Chronic pain syndrome G89.4 [facility] [address] [id number] [address] [place] [address] May, Chronic pain syndrome G89.4 [facility] [address] [id number] [address] [place] [address] 14 May, 2018 [facility] [address] [id number] [address] [place] [address] 13 May, 2018 [facility] [address] [id number] [address] [place] [address] 13 May, 2018 Moderate persistent asthma w ith acute exacerbation J45.41 and Rheumatoid arthritis involving multiple sites with positive rheumatoid factor M05.89 [facility] [address] [id number] [address] [place] [address] 12 May, 2018 Moderate persistent asthma w ith acute exacerbation J45.41 and Hypoxia R09.02 [facility] [address] [id number] [address] [place] [address] Apr, Chronic pain syndrome G89.4 [facility] [address] [id number] [address] [place] [address] Mar, High ankle sprain of right l ower extremity, subsequent encounter S93.431D ; Lumbago with sciatica, left side M54.42 and Lumbago with sciatica, right side M54.41 [facility] [address] [id number] [address] [place] [address] Mar, [facility] [address] [id number] [address] [place] [address] Mar, Chronic pain syndrome G89.4 [facility] [address] [id number] [address] [place] [address] Mar, [facility] [address] [id number] [address] [place] [address] Mar, Asthma exacerbation J45.901 and Sprain of right ankle, unspecified ligament, subsequent encounter S93.401D [facility] [address] [id number] [address] [place] [address] Feb, Injury of right ankle, initi al encounter S99.911A [facility] [address] [id number] [address] [place] [address] Feb, Chronic pain syndrome G89.4 [facility] [address] [id number] [address] [place] [address] Feb, Chronic pain syndrome G89.4 [facility] [address] [id number] [address] [place] [address] Feb, Moderate persistent asthma w ith acute exacerbation J45.41 and Persistent cough for 3 weeks or longer R05 [facility] [address] [id number] [address] [place] [address] January, [facility] [address] [id number] [address] [place] [address] January, Moderate persistent asthma w ith acute exacerbation J45.41 [facility] [address] [id number] [address] [place] [address] January, Chronic pain syndrome G89.4 [facility] [address] [address] 14 Jan, 2018 Tachycardia R00.0 and Modera te persistent asthma with acute exacerbation J45.41 [place] [address] [address] 11 Jan, 2018 Tachycardia R00.0 ; Moderate persistent asthma with acute exacerbation J45.41 ; Gastroesophageal reflux disease, esophagitis presence not specified K21.9 ; Hyperlipidemia, unspecified hyperlipidemia E78.5 and Chronic pain syndrome G89.4 [place] [address] [address] Dec, Medicare annual wellness vis it, initial [...] immunization Z23 and Chronic pain syndrome G89.4 [place] [address] [address] Dec, Chronic pain syndrome G89.4 [place] [address] [address] Dec, [place] [address] [address] Nov, [place] [address] [address] Nov, Chronic pain syndrome G89.4 [place] [address] [address] Oct, Chronic pain syndrome G89.4 [place] [address] [address] Oct, Chronic kidney disease, stag e 1 N18.1 [place] [address] [place] [id number] [address] [place] [address] Oct, Chronic prescription opiate use Z79.899 ; Cough R05 ; Asthma exacerbation J45.901 ; Elevated liver enzymes R74.8 ; Rheumatoid arthritis involving multiple sites with positive rheumatoid factor M05.89 and Chronic pain syndrome G89.4 [facility] [id number] [place] [address] Sep, Chronic pain syndrome G89.4 [facility] [address] [place] [id number] [address] [place] [address] Sep, [place] [address] [address] Aug, Acute bronchitis, unspecifie d organism J20.9 [place] [address] [place] [id number] [place] [address] Aug, Chronic pain syndrome G89.4 [place] [address] [address] Jul, Chronic pain syndrome G89.4 [place] [address] [place] [id number] [place] [address] Jun, Chronic pain syndrome G89.4 [place] [address] [place] [id number] [place] [address] May, Rheumatoid arthritis 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.89 [place] [address] [place] [id number] [address] [place] [address] May, Gastroesophageal reflux dise ase, esophagitis presence not specified K21.9 and Chronic pain syndrome G89.4 [facility] [address] [place] [id number] [address] [place] [address] May, [place] [address] [place] [id number] [place] [address] May, Esophageal candidiasis B37.8 1 and Chronic kidney disease, stage 1 N18.1 [facility] [address] [place] [id number] [place] [address] 11 May, 2017 Chronic kidney disease, stag e 1 N18.1 [place] [address] [place] [id number] [address] [place] [address] 05 May, 2017 Cough R05 ; Fever, unspecifi ed fever cause R50.9 ; Rheumatoid arthritis involving multiple sites with positive rheumatoid factor M05.89 and Chronic prescription opiate use Z79.899 [place] [address] [place] [id number] [address] [place] [address] Apr, [place] [id number] [place] [address] Apr, Cough R05 [place] [address] [place] [id number] [place] [address] Apr, Asthma exacerbation J45.901 [place] [address] [place] [id number] [address] [place] [address] Apr, [place] [address] [place] [id number] [address] [place] [address] Apr, Generalized anxiety disorder F41.1 and Severe episode of recurrent major depressive disorder, without psychotic features F33.2 [place] [address] [place] [id number] [address] [place] [address] Mar, [place] [id number] [place] [address] Feb, Chronic pain syndrome G89.4 [place] [address] [place] [id number] [address] [place] [address] Feb, Acute non-recurrent maxillar y sinusitis J01.00 [place] [address] [place] [id number] [address] [place] [address] Feb, Acute non-recurrent frontal sinusitis J01.10 [place] [address] [place] [id number] [address] [place] [address] Feb, Chronic pain syndrome G89.4 [place] [address] [facility] [place] [id number] [address] [place] [address] January, Acute cystitis with hematuri a N30.01 [place] [address] [place] [id number] [address] [place] [address] January, Acute cystitis with hematuri a N30.01 ; Dysuria R30.0 and Moderate persistent asthma with acute exacerbation J45.41 [place] [address] [place] [id number] [address] [place] [address] January, [place] [address] [place] [id number] [place] [address] January, Chronic pain syndrome G89.4 [place] [address] [address] January, Asthma exacerbation J45.901 [place] [address] [address] January, Asthma exacerbation J45.901 [place] [address] [address] Dec, Cough R05 ; Numbness in both hands R20.0 ; Ground glass opacity present on imaging of lung R91.8 ; Hypoxia R09.02 and Asthma exacerbation J45.901 [place] [address] [place] [id number] [address] [place] [address] Dec, Chronic pain syndrome G89.4 [place] [address] [place] [id number] [place] [address] Nov, Chronic prescription opiate use Z79.899 ; Rheumatoid arthritis involving multiple sites with positive rheumatoid factor M05.89 ; Moderate persistent asthma with acute exacerbation J45.41 ; Pneumonia of right lower lobe due to infectious organism J18.1 ; Chronic pain syndrome G89.4 ; Gastroesophageal reflux disease, esophagitis presence not specified K21.9 and Hyperlipidemia, unspecified hyperlipidemia E78.5 [place] [address] [place] [id number] [address] [place] [address] Nov, Rheumatoid arthritis 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.89 [facility] [address] [id number] [address] [place] [address] Oct, [facility] [address] [facility] [place] [id number] [address] [place] [address] Oct, Essential hypertension I10 [facility] [address] [facility] [place] [id number] [address] [place] [address] Sep, Hypoxia R09.02 and Ground gl ass opacity present on imaging of lung R91.8 [place] [address] [facility] [place] [id number] [address] [place] [address] Sep, Moderate persistent asthma w ith acute exacerbation J45.41 [facility] [id number] [place] [id number] Sep, [facility] [address] [facility] [place] [id number] [address] [place] [address] Sep, Chronic constipation K59.00 and Moderate persistent asthma with acute exacerbation J45.41 [facility] [address] [facility] [place] [id number] [address] [place] [address] Sep, Moderate persistent asthma w ith acute exacerbation J45.41 [facility] [address] [facility] [place] [id number] [address] [place] [address] Aug, [facility] [address] [facility] [place] [id number] [address] [place] [address] Aug, [facility] [address] [facility] [place] [id number] [address] [place] [address] Aug, [facility] [address] [facility] [place] [id number] [address] [place] [address] Aug, Rheumatoid arthritis 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.89 ; Essential hypertension I10 ; Hyperlipidemia, unspecified hyperlipidemia E78.5 ; Chronic constipation K59.00 and Moderate persistent asthma with acute exacerbation J45.41 [facility] [address] [facility] [place] [id number] [address] [place] [address] Aug, Bronchitis J40 [facility] [address] [facility] [place] [id number] [address] [place] [address] Aug, Rheumatoid arthritis 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.89 [facility] [address] [place] [id number] [place] [address] Aug, Pharyngitis, unspecified pablito ology J02.9 and Acute nasopharyngitis J00 [facility] [address] [place] [id number] [place] [address] Aug, [facility] [address] [address] Jul, [facility] [address] [place] [id number] [place] [address] Jul, Rheumatoid arthritis 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.89 ; Essential hypertension I10 ; Hyperlipidemia, unspecified hyperlipidemia E78.5 ; Rash R21 ; Mild persistent asthma with acute exacerbation J45.31 ; Hematuria R31.9 ; Osteoporosis M81.0 and Gastroesophageal reflux disease, esophagitis presence not specified K21.9 [facility] [address] [address] 18 Jun, 2016 [facility] [address] [address] Jun, Dysuria R30.0 [facility] [address] [place] [id number] [address] [place] [address] 05 Jun, 2016 Acute non-recurrent maxillar y sinusitis J01.00 and Dysuria R30.0 [facility] [address] [place] [id number] [address] [place] [address] 16 May, 2016 [facility] [address] [place] [id number] [address] [place] [address] 15 May, 2016 [facility] [address] [address] Apr, Chronic prescription opiate use Z79.899 and Rheumatoid arthritis involving multiple sites with positive rheumatoid factor M05.89 [place] [address] [address] Mar, [facility] [address] [place] [id number] [address] [place] [address] Feb, Dizziness of unknown cause R 42 and Other chronic pain G89.29 [place] [address] [place] [id number] [address] [place] [address] Feb, [place] [address] [place] [id number] [place] [address] Feb, Shortness of breath R06.02 [place] [address] [place] [id number] [place] [address] January, [place] [address] [address] January, Rheumatoid arthritis 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.89 ; Chronic prescription opiate use Z79.899 ; Hyperlipidemia, unspecified hyperlipidemia E78.5 ; Cough R05 ; Exposure to pneumonia Z20.828 ; Diarrhea, unspecified type R19.7 ; Weight loss R63.4 ; Lumbago with sciatica, right side M54.41 and Lumbago with sciatica, left side M54.42 [place] [address] [place] [id number] [address] [place] [address] Dec, [place] [address] [place] [id number] [address] [place] [address] Dec, Bronchitis J40 [place] [address] [place] [id number] [address] [place] [address] Nov, [place] [address] [place] [id number] [address] [place] [address] Nov, [place] [address] [place] [id number] [address] [place] [address] Nov, [facility] [address] [facility] [id number] [address] [place] [address] Nov, Bloody diarrhea R19.7 ; Belk n wall thickening K63.9 ; Shortness of breath R06.02 and Bladder wall thickening N32.89 [facility] [address] [id number] [address] [place] [id number] 15 Oct, 2015 Dental examination Z01.20 [facility] [address] [facility] [id number] [address] [place] [address] 15 Oct, 2015 [facility] [address] [facility] [id number] [address] [place] [address] 15 Oct, 2015 Toothache K08.8 [facility] [address] [facility] [id number] [address] [place] [id number] 11 Oct, 2015 Dental examination Z01.20 [facility] [address] [facility] [id number] [address] [place] [address] 02 Oct, 2015 [facility] [address] [facility] [id number] [address] [place] [address] Sep, [facility] [address] [address] Sep, Burning with urination R30.0 [place] [address] [place] [id number] [address] [place] [address] Sep, Hematuria R31.9 ; Rheumatoid arthritis involving multiple sites with positive rheumatoid factor M05.89 and Rheumatoid arthritis flare M06.9 [facility] [address] [facility] [id number] [address] [place] [address] Aug, Hyperlipidemia, unspecified hyperlipidemia E78.5 and Hematuria R31.9 [place] [address] [facility] [id number] [address] [place] [address] Aug, Hematuria R31.9 ; Chronic ki dney disease, stage 1 N18.1 and Hyperlipidemia, unspecified hyperlipidemia E78.5 [place] [address] [place] [id number] [address] [place] [id number] Aug, Rheumatoid arthritis 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.89 ; Asthma exacerbation J45.901 ; Hematuria R31.9 ; Hyperlipidemia, unspecified hyperlipidemia E78.5 and Chronic kidney disease, stage 1 N18.1 [facility] [facility] [address] [id number] [address] [place] [address] Aug, [facility] [address] [id number] [address] [place] [address] Jul, [facility] [address] [facility] [place] [id number] [address] [place] [address] Jul, Lumbosacral radiculopathy M5 4.17 [facility] [address] [facility] [place] [id number] [address] [place] [address] Jul, [facility] [address] [place] [id number] [address] [place] [address] Jun, Rheumatoid arthritis 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.89 ; Hyperlipidemia, unspecified hyperlipidemia E78.5 ; Lumbosacral radiculopathy M54.17 ; Carpal tunnel syndrome, right upper limb G56.01 and Carpal tunnel syndrome, left upper limb G56.02 [facility] [address] [facility] [place] [id number] [address] [place] [address] Jun, [facility] [address] [facility] [place] [id number] [address] [place] [address] 17 May, 2015 Lumbar radicular pain 724.4 and Dysuria 788.1 [facility] [address] [facility] [place] [id number] [address] [place] [address] 08 May, 2015 Rheumatoid arthritis 714.0 ; Lumbar radicular pain 724.4 ; Burn 949.0 and Thoracic back pain 724.1 [facility] [address] [place] [place] [id number] [address] [place] [id number] 08 May, 2015 [facility] [address] [place] [place] [id number] [address] [place] [address] May, [facility] [address] [facility] [place] [id number] [address] [place] [address] Apr, [facility] [address] [facility] [place] [id number] [address] [place] [address] Mar, Hyperlipidemia 272.4 [facility] [address] [facility] [place] [id number] [address] [place] [address] Mar, [facility] [address] [facility] [place] [id number] [address] [place] [id number] Mar, [facility] [address] [facility] [place] [id number] [address] [place] [address] Mar, Diarrhea 787.91 ; Chronic ki dney disease, unspecified 585.9 ; Hyperlipidemia 272.4 and Asthma 493.90 [facility] [address] [facility] [place] [id number] [address] [place] [address] Mar, [facility] [address] [facility] [place] [id number] [address] [place] [address] Mar, Gastroenteritis 558.9 [facility] [address] [facility] [place] [id number] [address] [place] [id number] Feb, [facility] [address] [facility] [place] [id number] [address] [place] [id number] January, [facility] [address] [facility] [place] [id number] [address] [place] [id number] January, [facility] [address] [facility] [place] [id number] [address] [place] [id number] Dec, [facility] [address] [facility] [place] [id number] [address] [place] [id number] Dec, [facility] [address] [facility] [place] [id number] [address] [place] [id number] Nov, [facility] [address] [facility] [place] [id number] [address] [place] [id number] Nov, [facility] [address] [id number] [address] [place] [address], [place] [address] Nov, [facility] [address] [id number] [address] [place] [address], [place] [address] Nov, [facility] [address] [id number] [address] [place] [address], [place] [address] Nov, [facility] [address] [id number] [address] [place] [address], [place] [address] Nov, [facility] [address] [id number] [address] [place] [address], [place] [address] Oct, [facility] [address] [id number] [address] [place] [address], [place] [address] Oct, [facility] [address] [id number] [address] [place] [address], [place] [address] Sep, [facility] [address] [id number] [address] [place] [address], [place] [address] Sep, [facility] [address] [id number] [address] [place] [address], [place] [address] Sep, [facility] [address] [id number] [address] [place] [address], [place] [address] Sep, [facility] [address] [id number] [address] [place] [address], [place] [address] Sep, [facility] [address] [id number] [address] [place] [address], [place] [address] Sep, [facility] [address] [id number] [address] [place] [address], [place] [address] Aug, [facility] [address] [id number] [address] [place] [address], [place] [address] Aug, [facility] [address] [id number] [address] [place] [address], [place] [address] Aug, [facility] [address] [id number] [address] [place] [address] Aug, [facility] [address] [id number] [address] [place] [address], [place] [address] Jul, [facility] [address] [id number] [address] [place] [address] Jul, [facility] [address] [id number] [address] [place] [address], [place] [address] Jul, [facility] [address] [id number] [address] [place] [address] Jul, [facility] [address] [id number] [address] [place] [address], [place] [address] Jul, [facility] [address] [id number] [address] [place] [address], [place] [address] Jul, [facility] [address] [id number] [address] [place] [address], [place] [address] Jul, [facility] [address] [id number] [address] [place] [address], [place] [address] Jul, [facility] [address] [id number] [address] [place] [address], [place] [address] Jul, [facility] [address] [id number] [address] [place] [address], [place] [address] Jun, [facility] [address] [id number] [address] [place] [address] Jun, [facility] [address] [id number] [address] [place] [address] Jun, [facility] [address] [id number] [address] [place] [address], [place] [address] May, [facility] [address] [id number] [address] [place] [address], [place] [address] May, [facility] [address] [id number] [address] [place] [address], [place] [address] 24 May, 2014 [facility] [address] [id number] [facility] [place] [address] 24 Sep, 2013 [facility] [address] [id number] [address] [place] [address], [place] [address] 24 May, 2013 [facility] [address] [id number] [address] [place] [address], [place] [address] 24 May, 2013 [facility] [address] [id number] [address] [place] [address], [place] [address] 19 May, 2013 [facility] [address] [id number] [address] [place] [address], [place] [address] 19 May, 2013 [facility] [address] [id number] [address] [place] [address], [place] [address] 11 May, 2013 [facility] [address] [id number] [address] [place] [address], [place] [address] 11 May, 2013 [facility] [address] [id number] [address] [place] [address], [place] [address] 11 May, 2013 [facility] [address] [id number] [address] [place] [address], [place] [address] 11 May, 2013 [facility] [address] [id number] [address] [place] [address], [place] [address] 10 May, 2013 [facility] [address] [id number] [address] [place] [address], [place] [address] 09 May, 2013 [facility] [address] [id number] [address] [place] [address], [place] [address] 09 May, 2013 [facility] [address] [id number] [address] [place] [address], [place] [address] 08 May, 2013 [facility] [address] [id number] [address] [place] [address], [place] [address] Apr, [facility] [address] [id number] [address] [place] [address], [place] [address] Apr, [facility] [address] [id number] [address] [place] [address], [place] [address] Aug, [facility] [address] [facility] [place] [id number] [address] [place] [address] Jul, IMMUNIZATIONS No Known Immunizations SOCIAL HISTORY [...]
--- OUTSIDE RECORDS SUMMARY | 2020-02-27 15:40 | XMS REPORT ---
Author Author Beba CORBIN [facility] Address [address] [place] [address] Care Team Providers Care Classroom Paraprofessional Name Role Phone EMERALD EDWARD Unavailable PROBLEMS Type Condition ICD9-CM Code TRK70-CO Code Onset Dates Condition S tatus SNOMED Code Problem Essential hypertension I10 Active 13936575 Problem Chronic constipation K59.00 Active 318736428 Problem Atrophy of left kidney N26.1 Active 733183905 Problem Vitamin D deficiency E55.9 Active 05250182 Problem Colon wall thickening K63.9 Active 208930254 Problem Chronic prescription opiate use Z79.899 Active 738239712 Problem Gastroesophageal reflux disease, esophagitis pre sence not specified K21.9 Active 406330651 Problem Hyperlipidemia, unspecified hyperlipidemia E78.5 Active 68567709 Problem Bladder wall thickening N32.89 Active 984564554 Problem Chronic pain syndrome G89.4 Active 113002560 Problem Asthma exacerbation J45.901 Active 406735065 Problem Severe episode of recurrent major depressive disorder, without psychotic features F33.2 Active 21948979 Problem Dependence on supplemental oxygen Z99.81 Active 208889832282 Problem Moderate persistent asthma with acute exacerbation J45.41 Active [id number] Problem Rheumatoid arthritis 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.89 Active 351302633 Problem Chronic respiratory failure with hypoxia J96.11 Active 220455159 Problem Osteoporosis M81.0 Active 5290198 6 Problem Pernicious anemia D51.0 Active 84 005863 Problem Chronic kidney disease, stage 1 N18.1 Active 530427540 Problem Generalized anxiety disorder F41.1 A ctive 20193311 Problem Moderate persistent asthma without complication J4 5.40 Active 478816100 Problem Lumbago with sciatica, left side M54.42 Active 016513463 Problem Lumbago with sciatica, right side M54.41 Active [id number] ALLERGIES No Information ENCOUNTERS Encounter Location Date Diagnosis [facility] [address] [facility] [id number] [address] [place] [phone] Apr, Rheumatoid arthritis 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.89 [facility] [address] [facility] [id number] [address] [place] [phone] Apr, [facility] [address] [facility] [id number] [address] [place] [phone] Apr, [facility] [address] [place] [id number] [address] [place] [phone] Mar, Rheumatoid arthritis 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.89 and Chronic constipation K59.00 [facility] [address] [facility] [id number] [address] [place] [address] Mar, [facility] [address] [place] [id number] [address] [place] [phone] Mar, Dizziness R42 and Nausea and vomiting, intractability of vomiting not specified, unspecified vomiting type R11.2 [facility] [address] [place] [id number] [address] [place] [address] Feb, Chronic pain syndrome G89.[address] [address] January, Chronic pain syndrome G89.4 [facility] [address] [facility] [id number] [address] [place] [phone] Dec, [facility] [address] [place] [id number] [address] [place] [phone] Dec, [facility] [address] [place] [id number] [address] [place] [address] Dec, Asthma exacerbation J45.901 ; Essential hypertension I10 ; Hyperlipidemia, unspecified hyperlipidemia E78.5 ; Rheumatoid arthritis involving multiple sites with positive rheumatoid factor M05.89 ; Chronic pain syndrome G89.4 ; Chronic kidney disease, stage 1 N18.1 ; Chronic respiratory failure with hypoxia J96.11 and Dependence on supplemental oxygen Z99.81 [place] [address] [place] [id number] [address] [place] [address] Dec, Chronic pain syndrome G89.4 [facility] [address] [address] Nov, Chronic pain syndrome G89.4 [facility] [address] [address] Nov, [facility] [address] [address] Oct, Chronic pain syndrome G89.4 [facility] [address] [address] Oct, [facility] [address] [address] Oct, Viral upper respiratory trac t infection J06.9 ; Chronic constipation K59.00 ; Severe episode of recurrent major depressive disorder, without psychotic features F33.2 ; Moderate persistent asthma with acute exacerbation J45.41 ; Essential hypertension I10 ; Gastroesophageal reflux disease, esophagitis presence not specified K21.9 and Hyperlipidemia, unspecified hyperlipidemia E78.5 [facility] [address] [address] 05 Oct, 2018 [facility] [address] [address] Sep, Chronic pain syndrome G89.4 [facility] [address] [address] Sep, Rheumatoid arthritis 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.89 ; Chronic constipation K59.00 ; Gastroesophageal reflux disease, esophagitis presence not specified K21.9 ; Asthma exacerbation J45.901 ; Severe episode of recurrent major depressive disorder, without psychotic features F33.2 ; Ganglion cyst M67.40 and Chronic prescription opiate use Z79.899 [facility] [address] [place] [id number] [address] [place] [address] Aug, Cough R05 and Moderate persi stent asthma with acute exacerbation J45.41 [facility] [address] [id number] [address] [place] [address] Aug, Chronic pain syndrome G89.4 [facility] [address] [id number] [address] [place] [phone] Jul, Chronic pain syndrome G89.4 [facility] [address] [id number] [address] [place] [address] Jul, Acute nasopharyngitis J00 [facility] [address] [id number] [address] [place] [phone] Jun, [facility] [address] [id number] [address] [place] [address] Jun, Chronic pain syndrome G89.4 [facility] [address] [id number] [address] [place] [phone] May, Chronic pain syndrome G89.4 [facility] [address] [id number] [address] [place] [phone] 14 May, 2018 [facility] [address] [id number] [address] [place] [phone] 13 May, 2018 [facility] [address] [id number] [address] [place] [phone] 13 May, 2018 Moderate persistent asthma w ith acute exacerbation J45.41 and Rheumatoid arthritis involving multiple sites with positive rheumatoid factor M05.89 [facility] [address] [id number] [address] [place] [phone] 12 May, 2018 Moderate persistent asthma w ith acute exacerbation J45.41 and Hypoxia R09.02 [facility] [address] [id number] [address] [place] [address] Apr, Chronic pain syndrome G89.4 [facility] [address] [id number] [address] [place] [address] Mar, High ankle sprain of right l ower extremity, subsequent encounter S93.431D ; Lumbago with sciatica, left side M54.42 and Lumbago with sciatica, right side M54.41 [facility] [address] [id number] [address] [place] [address] Mar, [facility] [address] [id number] [address] [place] [address] Mar, Chronic pain syndrome G89.4 [facility] [address] [id number] [address] [place] [address] Mar, [facility] [address] [id number] [address] [place] [address] Mar, Asthma exacerbation J45.901 and Sprain of right ankle, unspecified ligament, subsequent encounter S93.401D [facility] [address] [id number] [address] [place] [address] Feb, Injury of right ankle, initi al encounter S99.911A [facility] [address] [id number] [address] [place] [address] Feb, Chronic pain syndrome G89.4 [facility] [address] [id number] [address] [place] [address] Feb, Chronic pain syndrome G89.4 [facility] [address] [id number] [address] [place] [address] Feb, Moderate persistent asthma w [facility] acute exacerbation J45.41 and Persistent cough for 3 weeks or longer R05 [facility] [address] [id number] [address] [place] [address] January, [facility] [address] [id number] [address] [place] [phone] January, Moderate persistent asthma w ith acute exacerbation J45.41 [facility] [address] [id number] [address] [place] [address] January, Chronic pain syndrome G89.4 [facility] [address] [id number] [address] [place] [address] 14 Jan, 2018 Tachycardia R00.0 and Modera te persistent asthma with acute exacerbation J45.41 [facility] [facility] [address] [address] 11 Jan, 2018 Tachycardia R00.0 ; Moderate persistent asthma with acute exacerbation J45.41 ; Gastroesophageal reflux disease, esophagitis presence not specified K21.9 ; Hyperlipidemia, unspecified hyperlipidemia E78.5 and Chronic pain syndrome G89.4 [facility] [address] [place] [id number] [address] [place] [address] Dec, Medicare annual wellness vis it, initial [...] immunization Z23 and Chronic pain syndrome G89.4 [place] [address] [place] [id number] [address] [place] [address] Dec, Chronic pain syndrome G89.4 [place] [address] [place] [id number] [address] [place] [phone] Dec, [place] [address] [place] [id number] [address] [place] [phone] Nov, [place] [address] [place] [id number] [address] [place] [address] Nov, Chronic pain syndrome G89.4 [place] [address] [place] [id number] [address] [place] [address] Oct, Chronic pain syndrome G89.4 [place] [address] [place] [id number] [address] [place] [address] Oct, Chronic kidney disease, stag e 1 N18.1 [place] [address] [place] [address] Oct, Chronic prescription opiate use Z79.899 ; Cough R05 ; Asthma exacerbation J45.901 ; Elevated liver enzymes R74.8 ; Rheumatoid arthritis involving multiple sites with positive rheumatoid factor M05.89 and Chronic pain syndrome G89.4 [facility] [address] [place] [id number] [address] [place] [address] Sep, Chronic pain syndrome G89.4 [facility] [address] [address] Sep, [facility] [address] [address] Aug, Acute bronchitis, unspecifie d organism J20.9 [place] [address] [place] [id number] [place] [address] Aug, Chronic pain syndrome G89.4 [place] [address] [place] [id number] [place] [address] Jul, Chronic pain syndrome G89.4 [facility] [address] [place] [id number] [place] [address] Jun, Chronic pain syndrome G89.4 [facility] [address] [place] [id number] [place] [address] May, Rheumatoid arthritis 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.89 [facility] [address] [place] [id number] [address] [place] [address] May, Gastroesophageal reflux dise ase, esophagitis presence not specified K21.9 and Chronic pain syndrome G89.4 [facility] [address] [place] [id number] [address] [place] [address] May, [facility] [address] [place] [id number] [place] [phone] May, Esophageal candidiasis B37.8 1 and Chronic kidney disease, stage 1 N18.1 [facility] [address] [place] [id number] [address] [place] [address] May, Chronic kidney disease, stag e 1 N18.1 [facility] [address] [address] 05 May, 2017 Cough R05 ; Fever, unspecifi ed fever cause R50.9 ; Rheumatoid arthritis involving multiple sites with positive rheumatoid factor M05.89 and Chronic prescription opiate use Z79.899 [facility] [address] [place] [id number] [address] [place] [address] Apr, [facility] [address] [address] Apr, Cough R05 [place] [address] [address] Apr, Asthma exacerbation J45.901 [place] [address] [address] Apr, [facility] [address] [address] Apr, Generalized anxiety disorder F41.1 and Severe episode of recurrent major depressive disorder, without psychotic features F33.2 [place] [address] [address] Mar, [place] [address] [address] Feb, Chronic pain syndrome G89.4 [facility] [address] [place] [address] Feb, Acute non-recurrent maxillar y sinusitis J01.00 [place] [address] [place] [id number] [address] [place] [address] Feb, Acute non-recurrent frontal sinusitis J01.10 [place] [address] [place] [id number] [address] [place] [address] Feb, Chronic pain syndrome G89.4 [place] [address] [place] [id number] [address] [place] [address] January, Acute cystitis with hematuri a N30.01 [place] [address] [address] January, Acute cystitis with hematuri a N30.01 ; Dysuria R30.0 and Moderate persistent asthma with acute exacerbation J45.41 [place] [address] [address] January, [place] [address] [address] January, Chronic pain syndrome G89.4 [place] [address] [address] January, Asthma exacerbation J45.901 [place] [address] [address] January, Asthma exacerbation J45.901 [place] [address] [address] Dec, Cough R05 ; Numbness in both hands R20.0 ; Ground glass opacity present on imaging of lung R91.8 ; Hypoxia R09.02 and Asthma exacerbation J45.901 [place] [address] [address] Dec, Chronic pain syndrome G89.4 [place] [address] [address] Nov, Chronic prescription opiate use Z79.899 ; Rheumatoid arthritis involving multiple sites with positive rheumatoid factor M05.89 ; Moderate persistent asthma with acute exacerbation J45.41 ; Pneumonia of right lower lobe due to infectious organism J18.1 ; Chronic pain syndrome G89.4 ; Gastroesophageal reflux disease, esophagitis presence not specified K21.9 and Hyperlipidemia, unspecified hyperlipidemia E78.5 [place] [address] [address] Nov, Rheumatoid arthritis involvi multiple sites with positive rheumatoid factor M05.89 [facility] [address] [facility] [id number] [address] [place] [address] Oct, [facility] [address] [facility] [id number] [address] [place] [address] Oct, Essential hypertension I10 [facility] [address] [facility] [id number] [address] [place] [address] Sep, Hypoxia R09.02 and Ground gl ass opacity present on imaging of lung R91.8 [place] [address] [facility] [id number] [address] [place] [address] Sep, Moderate persistent asthma w ith acute exacerbation J45.41 [facility] [id number] [place] [id number] Sep, [facility] [address] [facility] [id number] [address] [place] [address] Sep, Chronic constipation K59.00 and Moderate persistent asthma with acute exacerbation J45.41 [facility] [address] [facility] [id number] [address] [place] [address] Sep, Moderate persistent asthma w ith acute exacerbation J45.41 [facility] [address] [facility] [id number] [address] [place] [address] Aug, [facility] [address] [facility] [id number] [address] [place] [address] Aug, [facility] [address] [facility] [id number] [address] [place] [address] Aug, [facility] [address] [facility] [id number] [address] [place] [address] Aug, Rheumatoid arthritis 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.89 ; Essential hypertension I10 ; Hyperlipidemia, unspecified hyperlipidemia E78.5 ; Chronic constipation K59.00 and Moderate persistent asthma with acute exacerbation J45.41 [facility] [address] [facility] [id number] [address] [place] [address] Aug, Bronchitis J40 [facility] [address] [facility] [id number] [address] [place] [address] Aug, Rheumatoid arthritis 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.89 [facility] [address] [place] [id number] [place] [address] Aug, Pharyngitis, unspecified pablito ology J02.9 and Acute nasopharyngitis J00 [facility] [address] [place] [id number] [place] [address] Aug, [facility] [address] [address] Jul, [facility] [address] [address] Jul, Rheumatoid arthritis 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.89 ; Essential hypertension I10 ; Hyperlipidemia, unspecified hyperlipidemia E78.5 ; Rash R21 ; Mild persistent asthma with acute exacerbation J45.31 ; Hematuria R31.9 ; Osteoporosis M81.0 and Gastroesophageal reflux disease, esophagitis presence not specified K21.9 [facility] [address] [address] Jun, [facility] [address] [address] Jun, Dysuria R30.0 [facility] [address] [place] [id number] [address] [place] [phone] 05 Jun, 2016 Acute non-recurrent maxillar y sinusitis J01.00 and Dysuria R30.0 [facility] [address] [place] [id number] [address] [place] [phone] 16 May, 2016 [facility] [address] [place] [id number] [place] [address] May, [facility] [address] [address] Apr, Chronic prescription opiate use Z79.899 and Rheumatoid arthritis involving multiple sites with positive rheumatoid factor M05.89 [facility] [address] [place] [id number] [address] [place] [address] Mar, [facility] [address] [place] [id number] [address] [place] [address] Feb, Dizziness of unknown cause R 42 and Other chronic pain G89.29 [facility] [address] [place] [id number] [address] [place] [address] Feb, [facility] [address] [place] [id number] [address] [place] [address] Feb, Shortness of breath R06.02 [facility] [address] [place] [id number] [address] [place] [phone] January, [facility] [address] [address] January, Rheumatoid arthritis 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.89 ; Chronic prescription opiate use Z79.899 ; Hyperlipidemia, unspecified hyperlipidemia E78.5 ; Cough R05 ; Exposure to pneumonia Z20.828 ; Diarrhea, unspecified type R19.7 ; Weight loss R63.4 ; Lumbago with sciatica, right side M54.41 and Lumbago with sciatica, left side M54.42 [facility] [address] [place] [address] Dec, [facility] [address] [place] [id number] [place] [address] Dec, Bronchitis J40 [facility] [address] [place] [id number] [address] [place] [phone] Nov, [facility] [address] [place] [id number] [address] [place] [phone] Nov, [facility] [address] [place] [id number] [address] [place] [phone] Nov, [facility] [address] [facility] [id number] [address] [place] [address] Nov, Bloody diarrhea R19.7 ; [place] n wall thickening K63.9 ; Shortness of breath R06.02 and Bladder wall thickening N32.89 [facility] [address] [id number] [address] [place] [id number] 15 Oct, 2015 Dental examination Z01.20 [facility] [address] [id number] [address] [place] [id number] 15 Oct, 2015 [facility] [address] [facility] [id number] [address] [place] [phone] 15 Oct, 2015 Toothache K08.8 [facility] [address] [id number] [address] [place] [id number] 11 Oct, 2015 Dental examination Z01.20 [facility] [address] [facility] [id number] [address] [place] [phone] 02 Oct, 2015 [facility] [address] [facility] [id number] [address] [place] [address] 18 Sep, 2015 [facility] [address] [place] [id number] [place] [address] Sep, Burning with urination R30.0 [place] [address] [facility] [id number] [address] [place] [phone] Sep, Hematuria R31.9 ; Rheumatoid arthritis involving multiple sites with positive rheumatoid factor M05.89 and Rheumatoid arthritis flare M06.9 [place] [address] [facility] [id number] [address] [place] [address] Aug, Hyperlipidemia, unspecified hyperlipidemia E78.5 and Hematuria R31.9 [place] [address] [facility] [id number] [address] [place] [phone] Aug, Hematuria R31.9 ; Chronic ki dney disease, stage 1 N18.1 and Hyperlipidemia, unspecified hyperlipidemia E78.5 [place] [address] [id number] [address] [place] [phone] Aug, Rheumatoid arthritis 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.89 ; Asthma exacerbation J45.901 ; Hematuria R31.9 ; Hyperlipidemia, unspecified hyperlipidemia E78.5 and Chronic kidney disease, stage 1 N18.1 [facility] [address] [id number] [address] [place] [phone] Aug, [facility] [address] [facility] [id number] [address] [place] [phone] Jul, [facility] [address] [id number] [address] [place] [place] [id number] Jul, Lumbosacral radiculopathy M5 4.17 [facility] [id number] [address] [place] [id number] Jul, [facility] [id number] [place] [address] Jun, Rheumatoid arthritis 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.89 ; Hyperlipidemia, unspecified hyperlipidemia E78.5 ; Lumbosacral radiculopathy M54.17 ; Carpal tunnel syndrome, right upper limb G56.01 and Carpal tunnel syndrome, left upper limb G56.02 [facility] [id number] [address] [place] [id number] Jun, [facility] [address] [id number] [address] [place] [id number] 17 May, 2015 Lumbar radicular pain 724.4 and Dysuria 788.1 [facility] [address] [facility] [id number] [address] [place] [id number] 08 May, 2015 Rheumatoid arthritis 714.0 ; Lumbar radicular pain 724.4 ; Burn 949.0 and Thoracic back pain 724.1 [facility] [id number] [address] [place] [id number] May, [facility] [address] [id number] [address] [place] [phone] May, [facility] [address] [facility] [id number] [address] [place] [id number] Apr, [facility] [address] [facility] [id number] [address] [place] [id number] Mar, Hyperlipidemia 272.4 [facility] [address] [facility] [id number] [address] [place] [id number] Mar, [facility] [address] [facility] [id number] [address] [place] [id number] Mar, [facility] [address] [facility] [id number] [address] [place] [id number] Mar, Diarrhea 787.91 ; Chronic ki dney disease, unspecified 585.9 ; Hyperlipidemia 272.4 and Asthma 493.90 [facility] [address] [facility] [id number] [address] [place] [id number] Mar, [facility] [address] [facility] [id number] [address] [place] [phone] Mar, Gastroenteritis 558.9 [facility] [address] [facility] [id number] [address] [place] [id number] Feb, [facility] [address] [facility] [id number] [address] [place] [phone] January, [facility] [address] [facility] [id number] [address] [place] [phone] January, [facility] [address] [facility] [id number] [address] [place] [id number] Dec, [facility] [address] [facility] [id number] [address] [place] [id number] Dec, [facility] [address] [facility] [id number] [address] [place] [phone] Nov, [facility] [address] [facility] [id number] [address] [place] [id number] Nov, [facility] [address] [id number] [address] [place] [address], [place] [address] Nov, [facility] [address] [id number] [address] [place] [address], [place] [address] Nov, [facility] [address] [id number] [address] [place] [address], [place] [address] Nov, [facility] [address] [id number] [address] [place] [address], [place] [address] Nov, [facility] [address] [id number] [address] [place] [address], [place] [address] Oct, [facility] [address] [id number] [address] [place] [address], [place] [address] Oct, [facility] [address] [id number] [address] [place] [address], [place] [address] Sep, [facility] [address] [id number] [address] [place] [address], [place] [address] Sep, [facility] [address] [id number] [address] [place] [address], [place] [address] Sep, [facility] [address] [id number] [address] [place] [address], [place] [address] Sep, [facility] [address] [id number] [address] [place] [address], [place] [address] Sep, [facility] [address] [id number] [address] [place] [address], [place] [address] Sep, [facility] [address] [id number] [address] [place] [address], [place] [address] Aug, [facility] [address] [id number] [address] [place] [address], [place] [address] Aug, [facility] [address] [id number] [address] [place] [address], [place] [address] Aug, [facility] [address] [id number] [address] [place] [address], [place] [address] Aug, [facility] [address] [id number] [address] [place] [address], [place] [address] Jul, [facility] [address] [id number] [address] [place] [address], [place] [address] Jul, [facility] [address] [id number] [address] [place] [address], [place] [address] Jul, [facility] [address] [id number] [address] [place] [address], [place] [address] Jul, [facility] [address] [id number] [address] [place] [address], [place] [address] Jul, [facility] [address] [id number] [address] [place] [address], [place] [address] Jul, [facility] [address] [id number] [address] [place] [address], [place] [address] Jul, [facility] [address] [id number] [address] [place] [address], [place] [address] Jul, [facility] [address] [id number] [address] [place] [address], [place] [address] Jul, [facility] [address] [id number] [address] [place] [address], [place] [address] Jun, [facility] [address] [id number] [address] [place] [address], [place] [address] Jun, [facility] [address] [id number] [address] [place] [id number] Jun, [facility] [address] [id number] [address] [place] [address], [place] [address] May, [facility] [address] [id number] [address] [place] [address], [place] [address] May, [facility] [address] [id number] [address] [place] [address], [place] [address] 24 May, 2014 [facility] [address] [id number] [facility] [address] 24 Sep, 2013 [facility] [address] [id number] [address] [place] [address], [place] [address] 24 May, 2013 [facility] [address] [id number] [address] [place] [address], [place] [address] 24 May, 2013 [facility] [address] [id number] [address] [place] [address], [place] [address] 19 May, 2013 [facility] [address] [id number] [address] [place] [address], [place] [address] 19 May, 2013 [facility] [address] [id number] [address] [place] [address], [place] [address] 11 May, 2013 [facility] [address] [id number] [address] [place] [address], [place] [address] 11 May, 2013 [facility] [address] [id number] [address] [place] [address], [place] [address] 11 May, 2013 [facility] [address] [id number] [address] [place] [address], [place] [address] 11 May, 2013 [facility] [address] [id number] [address] [place] [address], [place] [address] 10 May, 2013 [facility] [address] [id number] [address] [place] [address], [place] [address] 09 May, 2013 [facility] [address] [id number] [address] [place] [address], [place] [address] 09 May, 2013 [facility] [address] [id number] [address] [place] [address], [place] [address] 08 May, 2013 [facility] [address] [id number] [address] [place] [address], [place] [address] Apr, [facility] [address] [id number] [address] [place] [address], [place] [address] Apr, [facility] [address] [id number] [address] [place] [address], [place] [address] Aug, [facility] [address] [facility] [id number] [address] [place] [address] Jul, IMMUNIZATIONS No Known Immunizations SOCIAL HISTORY [...]
--- OUTSIDE RECORDS SUMMARY | 2020-02-27 15:40 | XMS REPORT ---
Author Author Beba GARCIA Organization [facility] Address [address] [place] [address] Care Team Providers [employer] Sales Representative Name Role Phone JAMES GARCIA Unavailable PROBLEMS Type Condition ICD9-CM Code VXQ43-FU Code Onset Dates Condition S tatus SNOMED Code Problem Essential hypertension I10 Active 04421072 Problem Chronic constipation K59.00 Active 929503870 Problem Atrophy of left kidney N26.1 Active 030772711 Problem Vitamin D deficiency E55.9 Active 23966286 Problem Colon wall thickening K63.9 Active 400871855 Problem Chronic prescription opiate use Z79.899 Active 659947651 Problem Gastroesophageal reflux disease, esophagitis pre sence not specified K21.9 Active 793340743 Problem Hyperlipidemia, unspecified hyperlipidemia E78.5 Active 14724222 Problem Bladder wall thickening N32.89 Active 086948992 Problem Chronic pain syndrome G89.4 Active 368109654 Problem Asthma exacerbation J45.901 Active 941293819 Problem Severe episode of recurrent major depressive disorder, without psychotic features F33.2 Active 66743449 Problem Dependence on supplemental oxygen Z99.81 Active 140165221331 Problem Moderate persistent asthma with acute exacerbation J45.41 Active [id number] Problem Rheumatoid arthritis 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.89 Active 235699049 Problem Chronic respiratory failure with hypoxia J96.11 Active 077720199 Problem Osteoporosis M81.0 Active 9780733 6 Problem Pernicious anemia D51.0 Active 84 948865 Problem Chronic kidney disease, stage 1 N18.1 Active 282388590 Problem Generalized anxiety disorder F41.1 A ctive 92812099 Problem Moderate persistent asthma without complication J4 5.40 Active 061970059 Problem Lumbago with sciatica, left side M54.42 Active 099152273 Problem Lumbago with sciatica, right side M54.41 Active [id number] ALLERGIES No Information ENCOUNTERS Encounter Location Date Diagnosis [facility] [address] [facility] [id number] [address] [place] [phone] Apr, Rheumatoid arthritis 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.89 [facility] [address] [facility] [id number] [address] [place] [phone] Apr, [facility] [address] [facility] [id number] [address] [place] [phone] Apr, [facility] [address] [facility] [id number] [address] [place] [phone] Mar, Rheumatoid arthritis 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.89 and Chronic constipation K59.00 [place] [address] [facility] [id number] [address] [place] [phone] Mar, [facility] [address] [place] [id number] [address] [place] [phone] Mar, Dizziness R42 and Nausea and vomiting, intractability of vomiting not specified, unspecified vomiting type R11.2 [facility] [address] [place] [id number] [address] [place] [phone] Feb, Chronic pain syndrome G89.[address] [address] January, Chronic pain syndrome G89.4 [facility] [address] [facility] [id number] [address] [place] [phone] Dec, [facility] [address] [facility] [id number] [address] [place] [phone] Dec, [facility] [address] [place] [id number] [address] [place] [phone] Dec, Asthma exacerbation J45.901 ; Essential hypertension I10 ; Hyperlipidemia, unspecified hyperlipidemia E78.5 ; Rheumatoid arthritis involving multiple sites with positive rheumatoid factor M05.89 ; Chronic pain syndrome G89.4 ; Chronic kidney disease, stage 1 N18.1 ; Chronic respiratory failure with hypoxia J96.11 and Dependence on supplemental oxygen Z99.81 [place] [address] [place] [id number] [address] [place] [phone] Dec, Chronic pain syndrome G89.4 [facility] [address] [address] Nov, Chronic pain syndrome G89.4 [facility] [address] [place] [id number] [address] [place] [phone] Nov, [facility] [address] [address] Oct, Chronic pain syndrome G89.4 [facility] [address] [address] Oct, [facility] [address] [place] [id number] [place] [address] Oct, Viral upper respiratory trac t infection J06.9 ; Chronic constipation K59.00 ; Severe episode of recurrent major depressive disorder, without psychotic features F33.2 ; Moderate persistent asthma with acute exacerbation J45.41 ; Essential hypertension I10 ; Gastroesophageal reflux disease, esophagitis presence not specified K21.9 and Hyperlipidemia, unspecified hyperlipidemia E78.5 [facility] [address] [place] [id number] [address] [place] [phone] Oct, [facility] [address] [place] [id number] [address] [place] [phone] Sep, Chronic pain syndrome G89.4 [facility] [address] [place] [id number] [address] [place] [address] Sep, Rheumatoid arthritis 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.89 ; Chronic constipation K59.00 ; Gastroesophageal reflux disease, esophagitis presence not specified K21.9 ; Asthma exacerbation J45.901 ; Severe episode of recurrent major depressive disorder, without psychotic features F33.2 ; Ganglion cyst M67.40 and Chronic prescription opiate use Z79.899 [facility] [address] [facility] [id number] [address] [place] [phone] Aug, Cough R05 and Moderate persi stent asthma with acute exacerbation J45.41 [facility] [address] [id number] [address] [place] [phone] Aug, Chronic pain syndrome G89.4 [facility] [address] [id number] [address] [place] [phone] Jul, Chronic pain syndrome G89.4 [facility] [address] [id number] [address] [place] [phone] Jul, Acute nasopharyngitis J00 [facility] [address] [id number] [address] [place] [phone] Jun, [facility] [address] [id number] [address] [place] [phone] Jun, Chronic pain syndrome G89.4 [facility] [address] [id number] [address] [place] [phone] May, Chronic pain syndrome G89.4 [facility] [address] [id number] [address] [place] [phone] 14 May, 2018 [facility] [address] [id number] [address] [place] [phone] 13 May, 2018 [facility] [address] [id number] [address] [place] [phone] 13 May, 2018 Moderate persistent asthma w ith acute exacerbation J45.41 and Rheumatoid arthritis involving multiple sites with positive rheumatoid factor M05.89 [facility] [address] [id number] [address] [place] [phone] 12 May, 2018 Moderate persistent asthma w ith acute exacerbation J45.41 and Hypoxia R09.02 [facility] [address] [id number] [address] [place] [phone] Apr, Chronic pain syndrome G89.4 [facility] [address] [id number] [address] [place] [phone] Mar, High ankle sprain of right l ower extremity, subsequent encounter S93.431D ; Lumbago with sciatica, left side M54.42 and Lumbago with sciatica, right side M54.41 [facility] [address] [id number] [address] [place] [phone] Mar, [facility] [address] [id number] [address] [place] [phone] Mar, Chronic pain syndrome G89.4 [facility] [address] [id number] [address] [place] [phone] Mar, [facility] [address] [id number] [address] [place] [phone] Mar, Asthma exacerbation J45.901 and Sprain of right ankle, unspecified ligament, subsequent encounter S93.401D [facility] [address] [id number] [address] [place] [phone] Feb, Injury of right ankle, initi al encounter S99.911A [facility] [address] [id number] [address] [place] [phone] Feb, Chronic pain syndrome G89.4 [facility] [address] [id number] [address] [place] [phone] Feb, Chronic pain syndrome G89.4 [facility] [address] [id number] [address] [place] [phone] Feb, Moderate persistent asthma w [facility] acute exacerbation J45.41 and Persistent cough for 3 weeks or longer R05 [facility] [address] [id number] [address] [place] [phone] January, [facility] [address] [id number] [address] [place] [id number] January, Moderate persistent asthma w ith acute exacerbation J45.41 [facility] [address] [id number] [address] [place] [phone] January, Chronic pain syndrome G89.4 [facility] [address] [id number] [address] [place] [phone] 14 Jan, 2018 Tachycardia R00.0 and Modera te persistent asthma with acute exacerbation J45.41 [place] [address] [place] [id number] [place] [address] 11 Jan, 2018 Tachycardia R00.0 ; Moderate persistent asthma with acute exacerbation J45.41 ; Gastroesophageal reflux disease, esophagitis presence not specified K21.9 ; Hyperlipidemia, unspecified hyperlipidemia E78.5 and Chronic pain syndrome G89.4 [place] [address] [place] [id number] [address] [place] [phone] Dec, Medicare annual wellness vis it, initial [...] immunization Z23 and Chronic pain syndrome G89.4 [place] [id number] [place] [phone] Dec, Chronic pain syndrome G89.4 [place] [address] [place] [id number] [address] [place] [phone] Dec, [place] [address] [place] [id number] [address] [place] [phone] Nov, [place] [address] [place] [id number] [address] [place] [address] Nov, Chronic pain syndrome G89.4 [place] [address] [place] [id number] [address] [place] [address] Oct, Chronic pain syndrome G89.4 [place] [address] [place] [id number] [address] [place] [address] Oct, Chronic kidney disease, stag e 1 N18.1 [place] [address] [place] [address] Oct, Chronic prescription opiate use Z79.899 ; Cough R05 ; Asthma exacerbation J45.901 ; Elevated liver enzymes R74.8 ; Rheumatoid arthritis involving multiple sites with positive rheumatoid factor M05.89 and Chronic pain syndrome G89.4 [facility] [address] [place] [id number] [address] [place] [phone] Sep, Chronic pain syndrome G89.4 [facility] [address] [place] [id number] [address] [place] [phone] Sep, [facility] [address] [place] [id number] [place] [address] Aug, Acute bronchitis, unspecifie d organism J20.9 [place] [address] [place] [id number] [address] [place] [phone] Aug, Chronic pain syndrome G89.4 [place] [address] [place] [id number] [address] [place] [phone] Jul, Chronic pain syndrome G89.4 [place] [address] [place] [id number] [address] [place] [phone] Jun, Chronic pain syndrome G89.4 [place] [address] [place] [id number] [address] [place] [phone] 29 May, 2017 Rheumatoid arthritis 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.89 [place] [address] [place] [id number] [address] [place] [phone] May, Gastroesophageal reflux dise ase, esophagitis presence not specified K21.9 and Chronic pain syndrome G89.4 [place] [address] [place] [id number] [address] [place] [phone] May, [place] [address] [place] [id number] [address] [place] [phone] May, Esophageal candidiasis B37.8 1 and Chronic kidney disease, stage 1 N18.1 [place] [address] [address] May, Chronic kidney disease, stag e 1 N18.1 [place] [address] [address] May, Cough R05 ; Fever, unspecifi ed fever cause R50.9 ; Rheumatoid arthritis involving multiple sites with positive rheumatoid factor M05.89 and Chronic prescription opiate use Z79.899 [place] [address] [address] Apr, [place] [address] [address] Apr, Cough R05 [place] [address] [address] Apr, Asthma exacerbation J45.901 [place] [address] [address] Apr, [place] [address] [address] Apr, Generalized anxiety disorder F41.1 and Severe episode of recurrent major depressive disorder, without psychotic features F33.2 [place] [address] [address] Mar, [place] [address] [address] Feb, Chronic pain syndrome G89.4 [place] [address] [address] Feb, Acute non-recurrent maxillar y sinusitis J01.00 [place] [address] [address] Feb, Acute non-recurrent frontal sinusitis J01.10 [place] [address] [place] [id number] [address] [place] [address] Feb, Chronic pain syndrome G89.4 [place] [address] [address] January, Acute cystitis with hematuri a N30.01 [place] [address] [address] January, Acute cystitis with hematuri a N30.01 ; Dysuria R30.0 and Moderate persistent asthma with acute exacerbation J45.41 [place] [address] [address] January, [place] [address] [address] January, Chronic pain syndrome G89.4 [place] [address] [address] January, Asthma exacerbation J45.901 [place] [address] [address] January, Asthma exacerbation J45.901 [place] [address] [address] Dec, Cough R05 ; Numbness in both hands R20.0 ; Ground glass opacity present on imaging of lung R91.8 ; Hypoxia R09.02 and Asthma exacerbation J45.901 [place] [address] [address] Dec, Chronic pain syndrome G89.4 [place] [address] [address] Nov, Chronic prescription opiate use Z79.899 ; Rheumatoid arthritis involving multiple sites with positive rheumatoid factor M05.89 ; Moderate persistent asthma with acute exacerbation J45.41 ; Pneumonia of right lower lobe due to infectious organism J18.1 ; Chronic pain syndrome G89.4 ; Gastroesophageal reflux disease, esophagitis presence not specified K21.9 and Hyperlipidemia, unspecified hyperlipidemia E78.5 [place] [address] [address] Nov, Rheumatoid arthritis involvi multiple sites with positive rheumatoid factor M05.89 [facility] [address] [facility] [id number] [address] [place] [address] Oct, [facility] [address] [facility] [id number] [address] [place] [address] Oct, Essential hypertension I10 [facility] [address] [id number] [address] [place] [address] Sep, Hypoxia R09.02 and Ground gl ass opacity present on imaging of lung R91.8 [facility] [address] [facility] [id number] [address] [place] [address] Sep, Moderate persistent asthma w ith acute exacerbation J45.41 [facility] [id number] [place] [id number] Sep, [facility] [address] [facility] [id number] [address] [place] [address] Sep, Chronic constipation K59.00 and Moderate persistent asthma with acute exacerbation J45.41 [facility] [address] [facility] [id number] [address] [place] [address] Sep, Moderate persistent asthma w ith acute exacerbation J45.41 [facility] [address] [facility] [id number] [address] [place] [address] Aug, [facility] [address] [facility] [id number] [address] [place] [address] Aug, [facility] [address] [facility] [id number] [address] [place] [address] Aug, [facility] [address] [facility] [id number] [address] [place] [address] Aug, Rheumatoid arthritis 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.89 ; Essential hypertension I10 ; Hyperlipidemia, unspecified hyperlipidemia E78.5 ; Chronic constipation K59.00 and Moderate persistent asthma with acute exacerbation J45.41 [facility] [address] [facility] [id number] [address] [place] [address] Aug, Bronchitis J40 [facility] [address] [facility] [id number] [address] [place] [address] Aug, Rheumatoid arthritis 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.89 [facility] [address] [place] [id number] [address] [place] [phone] Aug, Pharyngitis, unspecified pablito ology J02.9 and Acute nasopharyngitis J00 [facility] [address] [place] [id number] [address] [place] [phone] Aug, [facility] [address] [address] Jul, [facility] [address] [place] [id number] [place] [address] Jul, Rheumatoid arthritis 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.89 ; Essential hypertension I10 ; Hyperlipidemia, unspecified hyperlipidemia E78.5 ; Rash R21 ; Mild persistent asthma with acute exacerbation J45.31 ; Hematuria R31.9 ; Osteoporosis M81.0 and Gastroesophageal reflux disease, esophagitis presence not specified K21.9 [facility] [address] [place] [id number] [address] [place] [address] Jun, [facility] [address] [place] [id number] [address] [place] [phone] Jun, Dysuria R30.0 [facility] [address] [place] [id number] [address] [place] [address] Jun, Acute non-recurrent maxillar y sinusitis J01.00 and Dysuria R30.0 [facility] [address] [place] [id number] [address] [place] [phone] May, [facility] [address] [place] [id number] [address] [place] [address] May, [facility] [address] [place] [id number] [place] [address] Apr, Chronic prescription opiate use Z79.899 and Rheumatoid arthritis involving multiple sites with positive rheumatoid factor M05.89 [facility] [address] [place] [id number] [address] [place] [address] Mar, [facility] [address] [facility] [id number] [address] [place] [address] Feb, Dizziness of unknown cause R 42 and Other chronic pain G89.29 [facility] [address] [place] [id number] [address] [place] [address] Feb, [facility] [address] [facility] [id number] [address] [place] [address] Feb, Shortness of breath R06.02 [facility] [address] [place] [id number] [address] [place] [address] January, [place] [address] [address] January, Rheumatoid arthritis 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.89 ; Chronic prescription opiate use Z79.899 ; Hyperlipidemia, unspecified hyperlipidemia E78.5 ; Cough R05 ; Exposure to pneumonia Z20.828 ; Diarrhea, unspecified type R19.7 ; Weight loss R63.4 ; Lumbago with sciatica, right side M54.41 and Lumbago with sciatica, left side M54.42 [place] [address] [place] [id number] [address] [place] [address] Dec, [facility] [address] [place] [id number] [address] [place] [address] Dec, Bronchitis J40 [facility] [address] [place] [id number] [address] [place] [phone] Nov, [facility] [address] [place] [id number] [address] [place] [address] Nov, [facility] [address] [place] [id number] [address] [place] [address] Nov, [place] [id number] [facility] [id number] [address] [place] [address] Nov, Bloody diarrhea R19.7 ; [place] n wall thickening K63.9 ; Shortness of breath R06.02 and Bladder wall thickening N32.89 [facility] [address] [id number] [address] [place] [id number] 15 Oct, 2015 Dental examination Z01.20 [facility] [address] [facility] [id number] [address] [place] [address] 15 Oct, 2015 [facility] [address] [facility] [id number] [address] [place] [address] 15 Oct, 2015 Toothache K08.8 [facility] [address] [place] [id number] [address] [place] [address] [id number] 11 Oct, 2015 Dental examination Z01.20 [facility] [address] [facility] [id number] [address] [place] [phone] 02 Oct, 2015 [facility] [address] [facility] [id number] [address] [place] [phone] Sep, [place] [address] [place] [id number] [place] [address] Sep, Burning with urination R30.0 [place] [address] [place] [id number] [address] [place] [address] Sep, Hematuria R31.9 ; Rheumatoid arthritis involving multiple sites with positive rheumatoid factor M05.89 and Rheumatoid arthritis flare M06.9 [place] [address] [facility] [id number] [address] [place] [address] Aug, Hyperlipidemia, unspecified hyperlipidemia E78.5 and Hematuria R31.9 [place] [address] [facility] [id number] [address] [place] [address] Aug, Hematuria R31.9 ; Chronic ki dney disease, stage 1 N18.1 and Hyperlipidemia, unspecified hyperlipidemia E78.5 [place] [address] [facility] [id number] [address] [place] [address] Aug, Rheumatoid arthritis 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.89 ; Asthma exacerbation J45.901 ; Hematuria R31.9 ; Hyperlipidemia, unspecified hyperlipidemia E78.5 and Chronic kidney disease, stage 1 N18.1 [facility] [address] [facility] [id number] [address] [place] [phone] Aug, [facility] [address] [facility] [id number] [address] [place] [address] Jul, [facility] [address] [id number] [address] [place] [phone] Jul, Lumbosacral radiculopathy M5 4.17 [facility] [address] [facility] [id number] [address] [place] [id number] Jul, [facility] [address] [place] [id number] [address] [place] [id number] Jun, Rheumatoid arthritis 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.89 ; Hyperlipidemia, unspecified hyperlipidemia E78.5 ; Lumbosacral radiculopathy M54.17 ; Carpal tunnel syndrome, right upper limb G56.01 and Carpal tunnel syndrome, left upper limb G56.02 [facility] [address] [facility] [id number] [address] [place] [id number] Jun, [facility] [facility] [address] [facility] [id number] [address] [place] [id number] 17 May, 2015 Lumbar radicular pain 724.4 and Dysuria 788.1 [facility] [address] [facility] [id number] [address] [place] [id number] 08 May, 2015 Rheumatoid arthritis 714.0 ; Lumbar radicular pain 724.4 ; Burn 949.0 and Thoracic back pain 724.1 [facility] [address] [facility] [id number] [address] [place] [phone] May, [facility] [address] [place] [id number] [address] [place] [phone] May, [facility] [address] [facility] [id number] [address] [place] [phone] Apr, [facility] [address] [facility] [id number] [address] [place] [id number] Mar, Hyperlipidemia 272.4 [facility] [address] [facility] [id number] [address] [place] [id number] Mar, [facility] [address] [facility] [id number] [address] [place] [id number] Mar, [facility] [address] [facility] [id number] [address] [place] [id number] Mar, Diarrhea 787.91 ; Chronic ki dney disease, unspecified 585.9 ; Hyperlipidemia 272.4 and Asthma 493.90 [facility] [address] [facility] [id number] [address] [place] [id number] Mar, [facility] [address] [facility] [id number] [address] [place] [phone] Mar, Gastroenteritis 558.9 [facility] [address] [facility] [id number] [address] [place] [id number] Feb, [facility] [address] [facility] [id number] [address] [place] [id number] January, [facility] [address] [facility] [id number] [address] [place] [phone] January, [facility] [address] [facility] [id number] [address] [place] [phone] Dec, [facility] [address] [facility] [id number] [address] [place] [phone] Dec, [facility] [address] [facility] [id number] [address] [place] [id number] Nov, [facility] [address] [facility] [id number] [address] [place] [phone] Nov, [facility] [address] [id number] [address] [place] [address], [place] [address] Nov, [facility] [address] [id number] [address] [place] [address], [place] [address] Nov, [facility] [address] [id number] [address] [place] [address], [place] [address] Nov, [facility] [address] [id number] [address] [place] [address], [place] [address] Nov, [facility] [address] [id number] [address] [place] [address], [place] [address] Oct, [facility] [address] [id number] [address] [place] [address], [place] [address] Oct, [facility] [address] [id number] [address] [place] [address], [place] [address] Sep, [facility] [address] [id number] [address] [place] [address], [place] [address] Sep, [facility] [address] [id number] [address] [place] [address], [place] [address] Sep, [facility] [address] [id number] [address] [place] [address], [place] [address] Sep, [facility] [address] [id number] [address] [place] [address], [place] [address] Sep, [facility] [address] [id number] [address] [place] [address], [place] [address] Sep, [facility] [address] [id number] [address] [place] [address], [place] [address] Aug, [facility] [address] [id number] [address] [place] [address], [place] [address] Aug, [facility] [address] [id number] [address] [place] [address], [place] [address] Aug, [facility] [address] [id number] [address] [place] [address], [place] [address] Aug, [facility] [address] [id number] [address] [place] [address], [place] [address] Jul, [facility] [address] [id number] [address] [place] [address], [place] [address] Jul, [facility] [address] [id number] [address] [place] [address], [place] [address] Jul, [facility] [address] [id number] [address] [place] [address], [place] [address] Jul, [facility] [address] [id number] [address] [place] [address], [place] [address] Jul, [facility] [address] [id number] [address] [place] [address], [place] [address] Jul, [facility] [address] [id number] [address] [place] [address], [place] [address] Jul, [facility] [address] [id number] [address] [place] [address], [place] [address] Jul, [facility] [address] [id number] [address] [place] [address], [place] [address] Jul, [facility] [address] [id number] [address] [place] [address], [place] [address] Jun, [facility] [address] [id number] [address] [place] [address], [place] [address] Jun, [facility] [address] [id number] [address] [place] [phone] Jun, [facility] [address] [id number] [address] [place] [address], [place] [address] May, [facility] [address] [id number] [address] [place] [address], [place] [address] May, [facility] [address] [id number] [address] [place] [address], [place] [address] 24 May, 2014 [facility] [address] [id number] [facility] [address] 24 Sep, 2013 [facility] [address] [id number] [address] [place] [address], [place] [address] 24 Sep, 2013 [facility] [address] [id number] [address] [place] [address], [place] [address] 24 May, 2013 [facility] [address] [id number] [address] [place] [address], [place] [address] 19 May, 2013 [facility] [address] [id number] [address] [place] [address], [place] [address] 19 May, 2013 [facility] [address] [id number] [address] [place] [address], [place] [address] 11 May, 2013 [facility] [address] [id number] [address] [place] [address], [place] [address] 11 May, 2013 [facility] [address] [id number] [address] [place] [address], [place] [address] 11 May, 2013 [facility] [address] [id number] [address] [place] [address], [place] [address] 11 May, 2013 [facility] [address] [id number] [address] [place] [address], [place] [address] 10 May, 2013 [facility] [address] [id number] [address] [place] [address], [place] [address] 09 May, 2013 [facility] [address] [id number] [address] [place] [address], [place] [address] 09 May, 2013 [facility] [address] [id number] [address] [place] [address], [place] [address] 08 May, 2013 [facility] [address] [id number] [address] [place] [address], [place] [address] Apr, [facility] [address] [id number] [address] [place] [address], [place] [address] Apr, [facility] [address] [id number] [address] [place] [address], [place] [address] Aug, [facility] [address] [facility] [id number] [address] [place] [address] Jul, IMMUNIZATIONS No Known Immunizations SOCIAL HISTORY Never Assessed REASON FOR VISIT PLAN OF CARE VITAL SIGNS Height 66 in 2014-09-05 Weight 146.3 lbs 2014-09-05 Temperature 98.5 degrees Fahrenheit 2014-09-05 Heart Rate 92 bpm 2014-09-05 Respiratory Rate 18 2014-09-05 Blood pressure systolic 126 mmHg 2014-09-05 Blood pressure diastolic 74 mmHg 2014-09-05 MEDICATIONS Unknown Medications RESULTS No Results PROCEDURES Procedure Date Ordered Result Body Site MEASURE BLOOD OXYGEN LEVEL Sep 05, 2014 INFLUENZA ASSAY W/OPTIC Sep 05, 2014 INSTRUCTIONS MEDICATIONS ADMINISTERED No Known Medications [...]
--- OUTSIDE RECORDS SUMMARY | 2020-02-27 15:41 | XMS REPORT ---
Author Author Beba CORBIN [facility] Address [address] [place] [address] Care Team Providers Care Tire Setter Name Role Phone EMERALD EDWARD Unavailable PROBLEMS Type Condition ICD9-CM Code TZX21-PV Code Onset Dates Condition S tatus SNOMED Code Problem Essential hypertension I10 Active 89651417 Problem Chronic constipation K59.00 Active 377370765 Problem Atrophy of left kidney N26.1 Active 500289111 Problem Vitamin D deficiency E55.9 Active 57300503 Problem Colon wall thickening K63.9 Active 498692053 Problem Chronic prescription opiate use Z79.899 Active 364141089 Problem Gastroesophageal reflux disease, esophagitis pre sence not specified K21.9 Active 061673953 Problem Hyperlipidemia, unspecified hyperlipidemia E78.5 Active 43155185 Problem Bladder wall thickening N32.89 Active 764075924 Problem Chronic pain syndrome G89.4 Active 753218602 Problem Asthma exacerbation J45.901 Active 487270964 Problem Severe episode of recurrent major depressive disorder, without psychotic features F33.2 Active 20648130 Problem Dependence on supplemental oxygen Z99.81 Active 809184680064 Problem Moderate persistent asthma with acute exacerbation J45.41 Active 028205424589706 Problem Rheumatoid arthritis 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.89 Active 197588348 Problem Chronic respiratory failure with hypoxia J96.11 Active 732903103 Problem Osteoporosis M81.0 Active 0390240 6 Problem Pernicious anemia D51.0 Active 84 881782 Problem Chronic kidney disease, stage 1 N18.1 Active 389555778 Problem Generalized anxiety disorder F41.1 A ctive 80973177 Problem Moderate persistent asthma without complication J4 5.40 Active 659756872 Problem Lumbago with sciatica, left side M54.42 Active 512720677 Problem Lumbago with sciatica, right side M54.41 Active [id number] ALLERGIES No Information ENCOUNTERS Encounter Location Date Diagnosis [facility] [address] [facility] [id number] [address] [place] [phone] Mar, Rheumatoid arthritis 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.89 and Chronic constipation K59.00 [facility] [address] [facility] [id number] [address] [place] [address] Mar, [facility] [address] [place] [id number] [address] [place] [address] Mar, Dizziness R42 and Nausea and vomiting, intractability of vomiting not specified, unspecified vomiting type R11.2 [facility] [address] [facility] [id number] [address] [place] [address] Feb, Chronic pain syndrome G89.[address] [address] January, Chronic pain syndrome G89.4 [facility] [address] [place] [id number] [address] [place] [phone] Dec, [facility] [address] [place] [id number] [address] [place] [address] Dec, [facility] [address] [place] [id number] [place] [address] Dec, Asthma exacerbation J45.901 ; Essential hypertension I10 ; Hyperlipidemia, unspecified hyperlipidemia E78.5 ; Rheumatoid arthritis involving multiple sites with positive rheumatoid factor M05.89 ; Chronic pain syndrome G89.4 ; Chronic kidney disease, stage 1 N18.1 ; Chronic respiratory failure with hypoxia J96.11 and Dependence on supplemental oxygen Z99.81 [facility] [address] [facility] [id number] [address] [place] [phone] Dec, Chronic pain syndrome G89.4 [facility] [address] [place] [id number] [address] [place] [phone] Nov, Chronic pain syndrome G89.4 [facility] [address] [place] [id number] [address] [place] [phone] Nov, [place] [address] [facility] [id number] [address] [place] [phone] Oct, Chronic pain syndrome G89.4 [facility] [address] [facility] [id number] [address] [place] [phone] Oct, [facility] [address] [facility] [id number] [address] [place] [address] Oct, Viral upper respiratory trac t infection J06.9 ; Chronic constipation K59.00 ; Severe episode of recurrent major depressive disorder, without psychotic features F33.2 ; Moderate persistent asthma with acute exacerbation J45.41 ; Essential hypertension I10 ; Gastroesophageal reflux disease, esophagitis presence not specified K21.9 and Hyperlipidemia, unspecified hyperlipidemia E78.5 [facility] [address] [facility] [id number] [address] [place] [phone] Oct, [place] [address] [place] [id number] [address] [place] [phone] Sep, Chronic pain syndrome G89.4 [facility] [address] [address] Sep, Rheumatoid arthritis 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.89 ; Chronic constipation K59.00 ; Gastroesophageal reflux disease, esophagitis presence not specified K21.9 ; Asthma exacerbation J45.901 ; Severe episode of recurrent major depressive disorder, without psychotic features F33.2 ; Ganglion cyst M67.40 and Chronic prescription opiate use Z79.899 [facility] [address] [place] [id number] [address] [place] [phone] Aug, Cough R05 and Moderate persi stent asthma with acute exacerbation J45.41 [facility] [address] [place] [id number] [address] [place] [phone] Aug, Chronic pain syndrome G89.4 [facility] [address] [facility] [id number] [address] [place] [phone] Jul, Chronic pain syndrome G89.4 [facility] [address] [place] [id number] [address] [place] [phone] Jul, Acute nasopharyngitis J00 [facility] [address] [id number] [address] [place] [address] Jun, [facility] [address] [id number] [address] [place] [address] Jun, Chronic pain syndrome G89.4 [facility] [address] [id number] [address] [place] [phone] 21 May, 2018 Chronic pain syndrome G89.4 [facility] [address] [id number] [address] [place] [phone] 14 May, 2018 [facility] [address] [id number] [address] [place] [address] May, [facility] [address] [facility] [id number] [address] [place] [address] May, Moderate persistent asthma w [facility] acute exacerbation J45.41 and Rheumatoid arthritis involving multiple sites with positive rheumatoid factor M05.89 [facility] [address] [id number] [address] [place] [phone] May, Moderate persistent asthma w [facility] acute exacerbation J45.41 and Hypoxia R09.02 [facility] [address] [id number] [address] [place] [address] Apr, Chronic pain syndrome G89.4 [facility] [address] [facility] [id number] [address] [place] [address] Mar, High ankle sprain of right l ower extremity, subsequent encounter S93.431D ; Lumbago with sciatica, left side M54.42 and Lumbago with sciatica, right side M54.41 [facility] [address] [id number] [address] [place] [address] Mar, [facility] [address] [facility] [id number] [address] [place] [phone] Mar, Chronic pain syndrome G89.4 [facility] [address] [facility] [id number] [address] [place] [phone] Mar, [place] [address] [facility] [id number] [address] [place] [address] Mar, Asthma exacerbation J45.901 and Sprain of right ankle, unspecified ligament, subsequent encounter S93.401D [facility] [address] [facility] [id number] [address] [place] [address] 30 Feb, 2018 Injury of right ankle, initi al encounter S99.911A [place] [address] [facility] [id number] [address] [place] [address] Feb, Chronic pain syndrome G89.4 [place] [address] [place] [id number] [place] [address] Feb, Chronic pain syndrome G89.4 [place] [address] [address] Feb, Moderate persistent asthma w ith acute exacerbation J45.41 and Persistent cough for 3 weeks or longer R05 [place] [address] [place] [id number] [address] [place] [address] January, [place] [address] [place] [id number] [place] [phone] January, Moderate persistent asthma w ith acute exacerbation J45.41 [place] [address] [place] [id number] [address] [place] [address] January, Chronic pain syndrome G89.4 [place] [address] [facility] [id number] [address] [place] [phone] January, Tachycardia R00.0 and Modera te persistent asthma with acute exacerbation J45.41 [place] [address] [facility] [id number] [address] [place] [address] January, Tachycardia R00.0 ; Moderate persistent asthma with acute exacerbation J45.41 ; Gastroesophageal reflux disease, esophagitis presence not specified K21.9 ; Hyperlipidemia, unspecified hyperlipidemia E78.5 and Chronic pain syndrome G89.4 [facility] [address] [place] [id number] [address] [place] [phone] Dec, Medicare annual wellness vis it, initial [...] immunization Z23 and Chronic pain syndrome G89.4 [place] [address] [place] [id number] [address] [place] [address] 24 Dec, 2017 Chronic pain syndrome G89.4 [place] [address] [place] [id number] [address] [place] [phone] Dec, [place] [address] [place] [id number] [place] [address] Nov, [facility] [address] [place] [id number] [address] [place] [phone] Nov, Chronic pain syndrome G89.4 [facility] [address] [place] [id number] [address] [place] [address] Oct, Chronic pain syndrome G89.4 [facility] [address] [place] [id number] [address] [place] [id number] 08 Oct, 2017 Chronic kidney disease, stag e 1 N18.1 [facility] [address] [place] [id number] [address] [place] [id number] 07 Oct, 2017 Chronic prescription opiate use Z79.899 ; Cough R05 ; Asthma exacerbation J45.901 ; Elevated liver enzymes R74.8 ; Rheumatoid arthritis involving multiple sites with positive rheumatoid factor M05.89 and Chronic pain syndrome G89.4 [facility] [address] [place] [id number] [address] [place] [phone] Sep, Chronic pain syndrome G89.4 [place] [address] [facility] [id number] [address] [place] [phone] Sep, [place] [address] [place] [id number] [address] [place] [address] Aug, Acute bronchitis, unspecifie d organism J20.9 [place] [address] [place] [id number] [place] [address] Aug, Chronic pain syndrome G89.4 [place] [address] [place] [id number] [address] [place] [address] Jul, Chronic pain syndrome G89.4 [place] [address] [phone] Jun, Chronic pain syndrome G89.4 [place] [address] [address] May, Rheumatoid arthritis 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.89 [place] [address] [address] May, Gastroesophageal reflux dise ase, esophagitis presence not specified K21.9 and Chronic pain syndrome G89.4 [place] [address] [place] [id number] [address] [place] [phone] May, [place] [address] [address] May, Esophageal candidiasis B37.8 1 and Chronic kidney disease, stage 1 N18.1 [place] [address] [place] [id number] [address] [place] [phone] 11 May, 2017 Chronic kidney disease, stag e 1 N18.1 [place] [address] [place] [id number] [address] [place] [address] 05 May, 2017 Cough R05 ; Fever, unspecifi ed fever cause R50.9 ; Rheumatoid arthritis involving multiple sites with positive rheumatoid factor M05.89 and Chronic prescription opiate use Z79.899 [place] [address] [place] [id number] [address] [place] [address] Apr, [facility] [address] [facility] [id number] [address] [place] [phone] Apr, Cough R05 [facility] [address] [facility] [id number] [address] [place] [address] Apr, Asthma exacerbation J45.901 [place] [address] [facility] [id number] [address] [place] [address] Apr, [place] [address] [facility] [id number] [address] [place] [phone] Apr, Generalized anxiety disorder F41.1 and Severe episode of recurrent major depressive disorder, without psychotic features F33.2 [place] [address] [facility] [id number] [address] [place] [phone] Mar, [place] [address] [facility] [id number] [address] [place] [address] Feb, Chronic pain syndrome G89.4 [place] [address] [facility] [id number] [address] [place] [phone] Feb, Acute non-recurrent maxillar y sinusitis J01.00 [place] [address] [facility] [id number] [address] [place] [address] Feb, Acute non-recurrent frontal sinusitis J01.10 [place] [address] [facility] [id number] [address] [place] [phone] Feb, Chronic pain syndrome G89.4 [place] [address] [facility] [id number] [address] [place] [address] January, Acute cystitis with hematuri a N30.01 [place] [address] [facility] [id number] [address] [place] [phone] January, Acute cystitis with hematuri a N30.01 ; Dysuria R30.0 and Moderate persistent asthma with acute exacerbation J45.41 [place] [address] [place] [id number] [address] [place] [phone] January, [facility] [id number] [place] [address] January, Chronic pain syndrome G89.4 [facility] [address] [place] [id number] [address] [place] [address] January, Asthma exacerbation J45.901 [facility] [address] [address] January, Asthma exacerbation J45.901 [place] [address] [address] Dec, Cough R05 ; Numbness in both hands R20.0 ; Ground glass opacity present on imaging of lung R91.8 ; Hypoxia R09.02 and Asthma exacerbation J45.901 [place] [address] [address] Dec, Chronic pain syndrome G89.4 [place] [address] [address] Nov, Chronic prescription opiate use Z79.899 ; Rheumatoid arthritis involving multiple sites with positive rheumatoid factor M05.89 ; Moderate persistent asthma with acute exacerbation J45.41 ; Pneumonia of right lower lobe due to infectious organism J18.1 ; Chronic pain syndrome G89.4 ; Gastroesophageal reflux disease, esophagitis presence not specified K21.9 and Hyperlipidemia, unspecified hyperlipidemia E78.5 [place] [address] [place] [address] Nov, Rheumatoid arthritis 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.89 [place] [address] [address] Oct, [place] [address] [address] Oct, Essential hypertension I10 [place] [address] [address] Sep, Hypoxia R09.02 and Ground gl ass opacity present on imaging of lung R91.8 [facility] [address] [id number] [address] [place] [address] 09 Sep, 2016 Moderate persistent asthma w ith acute exacerbation J45.41 [facility] [address] [id number] [place] [id number] Sep, [facility] [address] [id number] [address] [place] [address] Sep, Chronic constipation K59.00 and Moderate persistent asthma with acute exacerbation J45.41 [place] [address] [id number] [address] [place] [address] Sep, Moderate persistent asthma w ith acute exacerbation J45.41 [facility] [address] [id number] [address] [place] [phone] 30 Aug, 2016 [facility] [address] [id number] [address] [place] [phone] Aug, [facility] [address] [id number] [address] [place] [phone] Aug, [facility] [address] [facility] [id number] [address] [place] [address] Aug, Rheumatoid arthritis involvi multiple sites with positive rheumatoid factor M05.89 ; Essential hypertension I10 ; Hyperlipidemia, unspecified hyperlipidemia E78.5 ; Chronic constipation K59.00 and Moderate persistent asthma with acute exacerbation J45.41 [facility] [address] [id number] [address] [place] [phone] Aug, Bronchitis J40 [facility] [address] [id number] [address] [place] [address] Aug, Rheumatoid arthritis 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.89 [facility] [address] [id number] [address] [place] [phone] Aug, Pharyngitis, unspecified pablito ology J02.9 and Acute nasopharyngitis J00 [facility] [address] [facility] [id number] [address] [place] [phone] Aug, [facility] [address] [facility] [id number] [place] [phone] Jul, [facility] [address] [place] [id number] [place] [address] Jul, Rheumatoid arthritis 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.89 ; Essential hypertension I10 ; Hyperlipidemia, unspecified hyperlipidemia E78.5 ; Rash R21 ; Mild persistent asthma with acute exacerbation J45.31 ; Hematuria R31.9 ; Osteoporosis M81.0 and Gastroesophageal reflux disease, esophagitis presence not specified K21.9 [facility] [address] [place] [id number] [place] [address] 18 Jun, 2016 [facility] [address] [address] Jun, Dysuria R30.0 [facility] [address] [facility] [id number] [address] [place] [id number] 05 Jun, 2016 Acute non-recurrent maxillar y sinusitis J01.00 and Dysuria R30.0 [facility] [address] [place] [id number] [address] [place] [id number] 16 May, 2016 [facility] [address] [address] May, [facility] [address] [address] Apr, Chronic prescription opiate use Z79.899 and Rheumatoid arthritis involving multiple sites with positive rheumatoid factor M05.89 [facility] [address] [place] [id number] [address] [place] [address] Mar, [facility] [address] [place] [id number] [address] [place] [address] Feb, Dizziness of unknown cause R 42 and Other chronic pain G89.29 [place] [address] [facility] [id number] [address] [place] [address] Feb, [facility] [address] [facility] [id number] [address] [place] [phone] Feb, Shortness of breath R06.02 [facility] [address] [facility] [id number] [address] [place] [address] January, [facility] [address] [place] [id number] [address] [place] [phone] January, Rheumatoid arthritis 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.89 ; Chronic prescription opiate use Z79.899 ; Hyperlipidemia, unspecified hyperlipidemia E78.5 ; Cough R05 ; Exposure to pneumonia Z20.828 ; Diarrhea, unspecified type R19.7 ; Weight loss R63.4 ; Lumbago with sciatica, right side M54.41 and Lumbago with sciatica, left side M54.42 [place] [address] [facility] [id number] [address] [place] [phone] Dec, [facility] [address] [facility] [id number] [address] [place] [phone] Dec, Bronchitis J40 [facility] [address] [facility] [id number] [address] [place] [phone] Nov, [place] [address] [facility] [id number] [address] [place] [phone] Nov, [facility] [address] [facility] [id number] [address] [place] [phone] Nov, [facility] [address] [facility] [id number] [address] [place] [phone] Nov, Bloody diarrhea R19.7 ; [place] n wall thickening K63.9 ; Shortness of breath R06.02 and Bladder wall thickening N32.89 [facility] [address] [id number] [address] [place] [id number] Oct, Dental examination Z01.20 [facility] [address] [place] [id number] [address] [place] [phone] 15 Oct, 2015 [facility] [address] [facility] [id number] [address] [place] [phone] 15 Oct, 2015 Toothache K08.8 [facility] [address] [id number] [address] [place] [id number] 11 Oct, 2015 Dental examination Z01.20 [facility] [address] [facility] [id number] [address] [place] [phone] 02 Oct, 2015 [facility] [address] [facility] [id number] [address] [place] [phone] Sep, [facility] [address] [facility] [id number] [address] [place] [phone] Sep, Burning with urination R30.0 [facility] [address] [facility] [id number] [address] [place] [phone] Sep, Hematuria R31.9 ; Rheumatoid arthritis involving multiple sites with positive rheumatoid factor M05.89 and Rheumatoid arthritis flare M06.9 [facility] [address] [facility] [id number] [address] [place] [id number] Aug, Hyperlipidemia, unspecified hyperlipidemia E78.5 and Hematuria R31.9 [facility] [address] [facility] [id number] [address] [place] [id number] Aug, Hematuria R31.9 ; Chronic ki dney disease, stage 1 N18.1 and Hyperlipidemia, unspecified hyperlipidemia E78.5 [facility] [address] [facility] [id number] [address] [place] [id number] Aug, Rheumatoid arthritis 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.89 ; Asthma exacerbation J45.901 ; Hematuria R31.9 ; Hyperlipidemia, unspecified hyperlipidemia E78.5 and Chronic kidney disease, stage 1 N18.1 [facility] [address] [facility] [id number] [address] [place] [id number] Aug, [facility] [address] [id number] [address] [place] [id number] Jul, [facility] [address] [id number] [address] [place] [id number] Jul, Lumbosacral radiculopathy M5 4.17 [facility] [address] [id number] [address] [place] [id number] Jul, [facility] [address] [facility] [id number] [address] [place] [id number] Jun, Rheumatoid arthritis 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.89 ; Hyperlipidemia, unspecified hyperlipidemia E78.5 ; Lumbosacral radiculopathy M54.17 ; Carpal tunnel syndrome, right upper limb G56.01 and Carpal tunnel syndrome, left upper limb G56.02 [facility] [address] [facility] [id number] [address] [place] [phone] Jun, [facility] [address] [facility] [id number] [address] [place] [id number] May, Lumbar radicular pain 724.4 and Dysuria 788.1 [facility] [address] [facility] [id number] [address] [place] [id number] May, Rheumatoid arthritis 714.0 ; Lumbar radicular pain 724.4 ; Burn 949.0 and Thoracic back pain 724.1 [facility] [address] [facility] [id number] [address] [place] [id number] May, [facility] [address] [facility] [id number] [address] [place] [phone] May, [facility] [address] [facility] [id number] [address] [place] [phone] Apr, [facility] [address] [facility] [id number] [address] [place] [id number] Mar, Hyperlipidemia 272.4 [facility] [address] [facility] [id number] [address] [place] [id number] Mar, [facility] [address] [id number] [address] [place] [id number] Mar, [facility] [address] [id number] [address] [place] [id number] Mar, Diarrhea 787.91 ; Chronic ki dney disease, unspecified 585.9 ; Hyperlipidemia 272.4 and Asthma 493.90 [facility] [address] [id number] [address] [place] [id number] Mar, [facility] [address] [id number] [address] [place] [id number] Mar, Gastroenteritis 558.9 [facility] [address] [id number] [address] [place] [id number] Feb, [facility] [address] [facility] [id number] [address] [place] [id number] January, [facility] [address] [id number] [address] [place] [phone] January, [facility] [address] [id number] [address] [place] [id number] Dec, [facility] [address] [id number] [address] [place] [id number] Dec, [facility] [address] [id number] [address] [place] [phone] Nov, [facility] [address] [id number] [address] [place] [phone] Nov, [facility] [address] [id number] [address] [place] [id number] Nov, [facility] [address] [id number] [address] [place] [id number] Nov, [facility] [address] [id number] [address] [place] [id number] Nov, [facility] [address] [id number] [address] [place] [id number] Nov, [facility] [address] [id number] [address] [place] [address], [place] [address] Oct, [facility] [address] [id number] [address] [place] [address], [place] [address] Oct, [facility] [address] [id number] [address] [place] [address], [place] [address] Sep, [facility] [address] [id number] [address] [place] [address], [place] [address] Sep, [facility] [address] [id number] [address] [place] [address], [place] [address] Sep, [facility] [address] [id number] [address] [place] [address], [place] [address] Sep, [facility] [address] [id number] [address] [place] [address], [place] [address] Sep, [facility] [address] [id number] [address] [place] [address], [place] [address] Sep, [facility] [address] [id number] [address] [place] [address], [place] [address] Aug, [facility] [address] [id number] [address] [place] [address], [place] [address] Aug, [facility] [address] [id number] [address] [place] [address], [place] [address] Aug, [facility] [address] [id number] [address] [place] [address], [place] [address] Aug, [facility] [address] [id number] [address] [place] [address], [place] [address] Jul, [facility] [address] [id number] [address] [place] [address], [place] [address] Jul, [facility] [address] [id number] [address] [place] [address], [place] [address] Jul, [facility] [address] [id number] [address] [place] [address], [place] [address] Jul, [facility] [address] [id number] [address] [place] [address], [place] [address] Jul, [facility] [address] [id number] [address] [place] [address], [place] [address] Jul, [facility] [address] [id number] [address] [place] [address], [place] [address] Jul, [facility] [address] [id number] [address] [place] [address], [place] [address] Jul, [facility] [address] [id number] [address] [place] [address], [place] [address] Jul, [facility] [address] [id number] [address] [place] [address], [place] [address] Jun, [facility] [address] [id number] [address] [place] [address], [place] [address] 15 Jun, 2014 [facility] [address] [id number] [address] [place] [address], [place] [address] 15 Jun, 2014 [facility] [address] [id number] [address] [place] [address], [place] [address] 25 May, 2014 [facility] [address] [id number] [address] [place] [address], [place] [address] 25 May, 2014 [facility] [address] [id number] [address] [place] [address], [place] [address] 24 May, 2013 [facility] [address] [id number] [address] [place] [address], [place] [address] 24 May, 2013 [facility] [address] [id number] [address] [place] [address], [place] [address] 24 May, 2013 [facility] [address] [id number] [address] [place] [address], [place] [address] 24 May, 2013 [facility] [address] [id number] [address] [place] [address], [place] [address] May, [facility] [address] [id number] [address] [place] [phone] May, [facility] [address] [id number] [address] [place] [phone] May, [facility] [address] [id number] [address] [place] [id number] May, [facility] [address] [id number] [address] [place] [phone] May, [facility] [address] [id number] [address] [place] [phone] May, [facility] [address] [id number] [address] [place] [phone] May, [facility] [address] [id number] [address] [place] [phone] May, [facility] [address] [id number] [address] [place] [id number] May, [facility] [address] [id number] [address] [place] [phone] May, [facility] [address] [id number] [address] [place] [phone] Apr, [facility] [address] [id number] [address] [place] [id number] Apr, [facility] [address] [id number] [address] [place] [id number] Aug, [facility] [address] [id number] [address] [place] [id number] Jul, IMMUNIZATIONS No Known Immunizations SOCIAL HISTORY [...]
--- OUTSIDE RECORDS SUMMARY | 2020-02-27 15:41 | XMS REPORT ---
Author Author Beba CORBIN [facility] Address [address] [place] [address] Care Team Providers Care Personal Financial Advisor Name Role Phone EMERALD EDWARD Unavailable PROBLEMS Type Condition ICD9-CM Code HTZ94-BK Code Onset Dates Condition S tatus SNOMED Code Problem Essential hypertension I10 Active 64152096 Problem Chronic constipation K59.00 Active 194994793 Problem Atrophy of left kidney N26.1 Active 897768456 Problem Vitamin D deficiency E55.9 Active 81135600 Problem Colon wall thickening K63.9 Active 320134275 Problem Chronic prescription opiate use Z79.899 Active 357566430 Problem Gastroesophageal reflux disease, esophagitis pre sence not specified K21.9 Active 205591329 Problem Hyperlipidemia, unspecified hyperlipidemia E78.5 Active 89329691 Problem Bladder wall thickening N32.89 Active 141645243 Problem Chronic pain syndrome G89.4 Active 022488565 Problem Asthma exacerbation J45.901 Active 760960549 Problem Severe episode of recurrent major depressive disorder, without psychotic features F33.2 Active 07816595 Problem Dependence on supplemental oxygen Z99.81 Active 018214963402 Problem Moderate persistent asthma with acute exacerbation J45.41 Active 134154770235691 Problem Rheumatoid arthritis 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.89 Active 369916425 Problem Chronic respiratory failure with hypoxia J96.11 Active 344344693 Problem Osteoporosis M81.0 Active 8271551 6 Problem Pernicious anemia D51.0 Active 84 484396 Problem Chronic kidney disease, stage 1 N18.1 Active 351001566 Problem Generalized anxiety disorder F41.1 A ctive 23774723 Problem Moderate persistent asthma without complication J4 5.40 Active 301553265 Problem Lumbago with sciatica, left side M54.42 Active 855684703 Problem Lumbago with sciatica, right side M54.41 Active [id number] ALLERGIES No Information ENCOUNTERS Encounter Location Date Diagnosis [facility] [address] [facility] [id number] [address] [place] [address] Mar, Rheumatoid arthritis 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.89 and Chronic constipation K59.00 [facility] [address] [id number] [address] [place] [address] Mar, [facility] [address] [place] [id number] [address] [place] [address] Mar, Dizziness R42 and Nausea and vomiting, intractability of vomiting not specified, unspecified vomiting type R11.2 [facility] [address] [facility] [facility] [id number] [address] [place] [address] Feb, Chronic pain syndrome G89.[address] [address] January, Chronic pain syndrome G89.4 [facility] [address] [place] [id number] [address] [place] [address] Dec, [facility] [address] [place] [id number] [address] [place] [address] Dec, [facility] [address] [place] [id number] [place] [address] Dec, Asthma exacerbation J45.901 ; Essential hypertension I10 ; Hyperlipidemia, unspecified hyperlipidemia E78.5 ; Rheumatoid arthritis involving multiple sites with positive rheumatoid factor M05.89 ; Chronic pain syndrome G89.4 ; Chronic kidney disease, stage 1 N18.1 ; Chronic respiratory failure with hypoxia J96.11 and Dependence on supplemental oxygen Z99.81 [facility] [address] [id number] [address] [place] [address] Dec, Chronic pain syndrome G89.4 [facility] [address] [place] [id number] [address] [place] [address] Nov, Chronic pain syndrome G89.4 [facility] [address] [place] [id number] [address] [place] [address] Nov, [place] [address] [facility] [id number] [address] [place] [address] Oct, Chronic pain syndrome G89.4 [facility] [address] [facility] [facility] [id number] [address] [place] [address] Oct, [facility] [address] [facility] [id number] [address] [place] [address] Oct, Viral upper respiratory trac t infection J06.9 ; Chronic constipation K59.00 ; Severe episode of recurrent major depressive disorder, without psychotic features F33.2 ; Moderate persistent asthma with acute exacerbation J45.41 ; Essential hypertension I10 ; Gastroesophageal reflux disease, esophagitis presence not specified K21.9 and Hyperlipidemia, unspecified hyperlipidemia E78.5 [facility] [address] [facility] [facility] [id number] [address] [place] [address] Oct, [place] [address] [place] [id number] [address] [place] [address] Sep, Chronic pain syndrome G89.4 [facility] [address] [address] Sep, Rheumatoid arthritis 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.89 ; Chronic constipation K59.00 ; Gastroesophageal reflux disease, esophagitis presence not specified K21.9 ; Asthma exacerbation J45.901 ; Severe episode of recurrent major depressive disorder, without psychotic features F33.2 ; Ganglion cyst M67.40 and Chronic prescription opiate use Z79.899 [facility] [address] [place] [id number] [address] [place] [address] Aug, Cough R05 and Moderate persi stent asthma with acute exacerbation J45.41 [facility] [address] [place] [id number] [address] [place] [address] Aug, Chronic pain syndrome G89.4 [facility] [address] [facility] [facility] [id number] [address] [place] [address] Jul, Chronic pain syndrome G89.4 [facility] [address] [place] [id number] [address] [place] [address] Jul, Acute nasopharyngitis J00 [facility] [address] [id number] [address] [place] [address] Jun, [facility] [address] [id number] [address] [place] [address] Jun, Chronic pain syndrome G89.4 [facility] [address] [id number] [address] [place] [address] 21 May, 2018 Chronic pain syndrome G89.4 [facility] [address] [id number] [address] [place] [address] 14 May, 2018 [facility] [address] [id number] [address] [place] [address] May, [facility] [address] [facility] [facility] [id number] [address] [place] [address] May, Moderate persistent asthma w [facility] acute exacerbation J45.41 and Rheumatoid arthritis involving multiple sites with positive rheumatoid factor M05.89 [facility] [address] [id number] [address] [place] [address] May, Moderate persistent asthma w [facility] acute exacerbation J45.41 and Hypoxia R09.02 [facility] [address] [id number] [address] [place] [address] Apr, Chronic pain syndrome G89.4 [facility] [address] [facility] [id number] [address] [place] [address] Mar, High ankle sprain of right l ower extremity, subsequent encounter S93.431D ; Lumbago with sciatica, left side M54.42 and Lumbago with sciatica, right side M54.41 [facility] [address] [id number] [address] [place] [address] Mar, [facility] [address] [id number] [address] [place] [address] Mar, Chronic pain syndrome G89.4 [facility] [address] [facility] [id number] [address] [place] [address] Mar, [place] [address] [facility] [id number] [address] [place] [address] Mar, Asthma exacerbation J45.901 and Sprain of right ankle, unspecified ligament, subsequent encounter S93.401D [facility] [address] [id number] [address] [place] [address] 30 Feb, 2018 Injury of right ankle, initi al encounter S99.911A [place] [address] [facility] [id number] [address] [place] [address] Feb, Chronic pain syndrome G89.4 [place] [address] [place] [id number] [place] [address] Feb, Chronic pain syndrome G89.4 [place] [address] [address] Feb, Moderate persistent asthma w ith acute exacerbation J45.41 and Persistent cough for 3 weeks or longer R05 [place] [address] [place] [id number] [address] [place] [address] January, [place] [address] [place] [id number] [place] [address] January, Moderate persistent asthma w ith acute exacerbation J45.41 [place] [address] [place] [id number] [address] [place] [address] January, Chronic pain syndrome G89.4 [place] [address] [facility] [id number] [address] [place] [address] January, Tachycardia R00.0 and Modera te persistent asthma with acute exacerbation J45.41 [place] [address] [facility] [id number] [address] [place] [address] January, Tachycardia R00.0 ; Moderate persistent asthma with acute exacerbation J45.41 ; Gastroesophageal reflux disease, esophagitis presence not specified K21.9 ; Hyperlipidemia, unspecified hyperlipidemia E78.5 and Chronic pain syndrome G89.4 [facility] [address] [place] [id number] [address] [place] [address] Dec, Medicare annual wellness vis it, initial [...] immunization Z23 and Chronic pain syndrome G89.4 [place] [address] [place] [id number] [address] [place] [address] 24 Dec, 2017 Chronic pain syndrome G89.4 [place] [address] [place] [id number] [address] [place] [address] Dec, [place] [address] [place] [id number] [place] [address] Nov, [facility] [address] [place] [id number] [address] [place] [address] Nov, Chronic pain syndrome G89.4 [facility] [address] [place] [id number] [address] [place] [address] Oct, Chronic pain syndrome G89.4 [facility] [address] [place] [id number] [address] [place] [id number] 08 Oct, 2017 Chronic kidney disease, stag e 1 N18.1 [facility] [address] [place] [id number] [address] [place] [address] 07 Oct, 2017 Chronic prescription opiate use Z79.899 ; Cough R05 ; Asthma exacerbation J45.901 ; Elevated liver enzymes R74.8 ; Rheumatoid arthritis involving multiple sites with positive rheumatoid factor M05.89 and Chronic pain syndrome G89.4 [facility] [address] [place] [id number] [address] [place] [address] Sep, Chronic pain syndrome G89.4 [place] [address] [facility] [id number] [address] [place] [address] Sep, [place] [address] [place] [id number] [address] [place] [address] Aug, Acute bronchitis, unspecifie d organism J20.9 [place] [address] [place] [id number] [place] [address] Aug, Chronic pain syndrome G89.4 [place] [address] [place] [id number] [address] [place] [id number] Jul, Chronic pain syndrome G89.4 [place] [address] [address] Jun, Chronic pain syndrome G89.4 [place] [address] [address] May, Rheumatoid arthritis 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.89 [place] [address] [address] May, Gastroesophageal reflux dise ase, esophagitis presence not specified K21.9 and Chronic pain syndrome G89.4 [place] [address] [place] [id number] [address] [place] [address] May, [place] [address] [address] May, Esophageal candidiasis B37.8 1 and Chronic kidney disease, stage 1 N18.1 [place] [address] [place] [id number] [address] [place] [address] 11 May, 2017 Chronic kidney disease, stag e 1 N18.1 [place] [address] [place] [id number] [address] [place] [address] 05 May, 2017 Cough R05 ; Fever, unspecifi ed fever cause R50.9 ; Rheumatoid arthritis involving multiple sites with positive rheumatoid factor M05.89 and Chronic prescription opiate use Z79.899 [place] [address] [place] [id number] [address] [place] [address] Apr, [facility] [address] [facility] [facility] [id number] [address] [place] [address] Apr, Cough R05 [facility] [address] [facility] [id number] [address] [place] [address] Apr, Asthma exacerbation J45.901 [place] [address] [facility] [id number] [address] [place] [address] Apr, [place] [address] [facility] [id number] [address] [place] [address] Apr, Generalized anxiety disorder F41.1 and Severe episode of recurrent major depressive disorder, without psychotic features F33.2 [place] [address] [facility] [id number] [address] [place] [address] Mar, [place] [address] [facility] [id number] [address] [place] [address] Feb, Chronic pain syndrome G89.4 [place] [address] [facility] [id number] [address] [place] [address] Feb, Acute non-recurrent maxillar y sinusitis J01.00 [place] [address] [facility] [id number] [address] [place] [address] Feb, Acute non-recurrent frontal sinusitis J01.10 [place] [address] [facility] [id number] [address] [place] [address] Feb, Chronic pain syndrome G89.4 [place] [address] [facility] [id number] [address] [place] [address] January, Acute cystitis with hematuri a N30.01 [place] [address] [facility] [id number] [address] [place] [address] January, Acute cystitis with hematuri a N30.01 ; Dysuria R30.0 and Moderate persistent asthma with acute exacerbation J45.41 [place] [address] [place] [id number] [address] [place] [address] January, [facility] [id number] [place] [address] January, Chronic pain syndrome G89.4 [facility] [address] [place] [id number] [address] [place] [address] January, Asthma exacerbation J45.901 [facility] [address] [address] January, Asthma exacerbation J45.901 [place] [address] [address] Dec, Cough R05 ; Numbness in both hands R20.0 ; Ground glass opacity present on imaging of lung R91.8 ; Hypoxia R09.02 and Asthma exacerbation J45.901 [place] [address] [address] Dec, Chronic pain syndrome G89.4 [place] [address] [address] Nov, Chronic prescription opiate use Z79.899 ; Rheumatoid arthritis involving multiple sites with positive rheumatoid factor M05.89 ; Moderate persistent asthma with acute exacerbation J45.41 ; Pneumonia of right lower lobe due to infectious organism J18.1 ; Chronic pain syndrome G89.4 ; Gastroesophageal reflux disease, esophagitis presence not specified K21.9 and Hyperlipidemia, unspecified hyperlipidemia E78.5 [place] [id number] [place] [address] Nov, Rheumatoid arthritis 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.89 [place] [address] [address] Oct, [place] [address] [address] Oct, Essential hypertension I10 [place] [address] [address] Sep, Hypoxia R09.02 and Ground gl ass opacity present on imaging of lung R91.8 [facility] [address] [id number] [address] [place] [address] 09 Sep, 2016 Moderate persistent asthma w ith acute exacerbation J45.41 [facility] [id number] [place] [id number] Sep, [facility] [address] [id number] [address] [place] [address] Sep, Chronic constipation K59.00 and Moderate persistent asthma with acute exacerbation J45.41 [place] [address] [id number] [address] [place] [address] Sep, Moderate persistent asthma w ith acute exacerbation J45.41 [facility] [address] [id number] [address] [place] [address] 30 Aug, 2016 [facility] [address] [id number] [address] [place] [address] Aug, [facility] [address] [id number] [address] [place] [address] Aug, [facility] [address] [facility] [id number] [address] [place] [address] Aug, Rheumatoid arthritis involvi multiple sites with positive rheumatoid factor M05.89 ; Essential hypertension I10 ; Hyperlipidemia, unspecified hyperlipidemia E78.5 ; Chronic constipation K59.00 and Moderate persistent asthma with acute exacerbation J45.41 [facility] [address] [id number] [address] [place] [address] Aug, Bronchitis J40 [facility] [address] [id number] [address] [place] [address] Aug, Rheumatoid arthritis 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.89 [facility] [address] [id number] [address] [place] [address] Aug, Pharyngitis, unspecified pablito ology J02.9 and Acute nasopharyngitis J00 [facility] [address] [facility] [id number] [address] [place] [address] Aug, [facility] [address] [facility] [id number] [place] [address] Jul, [facility] [address] [place] [id number] [place] [address] Jul, Rheumatoid arthritis 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.89 ; Essential hypertension I10 ; Hyperlipidemia, unspecified hyperlipidemia E78.5 ; Rash R21 ; Mild persistent asthma with acute exacerbation J45.31 ; Hematuria R31.9 ; Osteoporosis M81.0 and Gastroesophageal reflux disease, esophagitis presence not specified K21.9 [facility] [address] [place] [id number] [place] [address] 18 Jun, 2016 [facility] [address] [address] Jun, Dysuria R30.0 [facility] [address] [facility] [id number] [address] [place] [address] 05 Jun, 2016 Acute non-recurrent maxillar y sinusitis J01.00 and Dysuria R30.0 [facility] [address] [place] [id number] [address] [place] [address] 16 May, 2016 [facility] [address] [address] May, [facility] [address] [address] Apr, Chronic prescription opiate use Z79.899 and Rheumatoid arthritis involving multiple sites with positive rheumatoid factor M05.89 [facility] [address] [place] [id number] [address] [place] [address] Mar, [facility] [address] [place] [id number] [address] [place] [address] Feb, Dizziness of unknown cause R 42 and Other chronic pain G89.29 [place] [address] [facility] [id number] [address] [place] [address] Feb, [facility] [address] [facility] [id number] [address] [place] [address] Feb, Shortness of breath R06.02 [facility] [address] [facility] [id number] [address] [place] [address] January, [facility] [address] [place] [id number] [address] [place] [address] January, Rheumatoid arthritis 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.89 ; Chronic prescription opiate use Z79.899 ; Hyperlipidemia, unspecified hyperlipidemia E78.5 ; Cough R05 ; Exposure to pneumonia Z20.828 ; Diarrhea, unspecified type R19.7 ; Weight loss R63.4 ; Lumbago with sciatica, right side M54.41 and Lumbago with sciatica, left side M54.42 [place] [address] [facility] [id number] [address] [place] [address] Dec, [facility] [address] [facility] [id number] [address] [place] [address] Dec, Bronchitis J40 [facility] [address] [facility] [id number] [address] [place] [address] Nov, [place] [address] [facility] [id number] [address] [place] [address] Nov, [facility] [address] [facility] [id number] [address] [place] [address] Nov, [facility] [address] [facility] [id number] [address] [place] [address] Nov, Bloody diarrhea R19.7 ; [place] n wall thickening K63.9 ; Shortness of breath R06.02 and Bladder wall thickening N32.89 [facility] [address] [id number] [address] [place] [id number] Oct, Dental examination Z01.20 [facility] [address] [place] [id number] [address] [place] [address] 15 Oct, 2015 [facility] [address] [facility] [id number] [address] [place] [address] 15 Oct, 2015 Toothache K08.8 [facility] [address] [id number] [address] [place] [address] [id number] 11 Oct, 2015 Dental examination Z01.20 [facility] [address] [facility] [id number] [address] [place] [address] 02 Oct, 2015 [facility] [address] [facility] [id number] [address] [place] [address] Sep, [facility] [address] [facility] [id number] [address] [place] [address] Sep, Burning with urination R30.0 [facility] [address] [facility] [id number] [address] [place] [address] Sep, Hematuria R31.9 ; Rheumatoid arthritis involving multiple sites with positive rheumatoid factor M05.89 and Rheumatoid arthritis flare M06.9 [facility] [address] [facility] [id number] [address] [place] [address] Aug, Hyperlipidemia, unspecified hyperlipidemia E78.5 and Hematuria R31.9 [facility] [address] [facility] [id number] [address] [place] [address] Aug, Hematuria R31.9 ; Chronic ki dney disease, stage 1 N18.1 and Hyperlipidemia, unspecified hyperlipidemia E78.5 [facility] [address] [facility] [id number] [address] [place] [address] Aug, Rheumatoid arthritis 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.89 ; Asthma exacerbation J45.901 ; Hematuria R31.9 ; Hyperlipidemia, unspecified hyperlipidemia E78.5 and Chronic kidney disease, stage 1 N18.1 [facility] [address] [facility] [id number] [address] [place] [address] Aug, [facility] [address] [id number] [address] [place] [address] Jul, [facility] [address] [id number] [address] [place] [address] Jul, Lumbosacral radiculopathy M5 4.17 [facility] [address] [id number] [address] [place] [address] Jul, [facility] [address] [facility] [id number] [address] [place] [address] Jun, Rheumatoid arthritis 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.89 ; Hyperlipidemia, unspecified hyperlipidemia E78.5 ; Lumbosacral radiculopathy M54.17 ; Carpal tunnel syndrome, right upper limb G56.01 and Carpal tunnel syndrome, left upper limb G56.02 [facility] [address] [id number] [address] [place] [id number] Jun, [facility] [address] [id number] [address] [place] [id number] May, Lumbar radicular pain 724.4 and Dysuria 788.1 [facility] [address] [id number] [address] [place] [address] May, Rheumatoid arthritis 714.0 ; Lumbar radicular pain 724.4 ; Burn 949.0 and Thoracic back pain 724.1 [facility] [address] [id number] [address] [place] [id number] May, [facility] [address] [id number] [address] [place] [id number] May, [facility] [address] [id number] [address] [place] [id number] Apr, [facility] [address] [id number] [address] [place] [id number] Mar, Hyperlipidemia 272.4 [facility] [address] [id number] [address] [place] [id number] Mar, [facility] [address] [id number] [address] [place] [id number] Mar, [facility] [address] [id number] [address] [place] [address] Mar, Diarrhea 787.91 ; Chronic ki dney disease, unspecified 585.9 ; Hyperlipidemia 272.4 and Asthma 493.90 [facility] [address] [id number] [address] [place] [id number] Mar, [facility] [address] [id number] [address] [place] [id number] Mar, Gastroenteritis 558.9 [facility] [address] [id number] [address] [place] [id number] Feb, [facility] [address] [id number] [address] [place] [id number] January, [facility] [address] [id number] [address] [place] [id number] January, [facility] [address] [id number] [address] [place] [phone] Dec, [facility] [address] [id number] [address] [place] [id number] Dec, [facility] [address] [id number] [address] [place] [id number] Nov, [facility] [address] [id number] [address] [place] [id number] Nov, [facility] [address] [id number] [address] [place] [id number] Nov, [facility] [address] [id number] [address] [place] [id number] Nov, [facility] [address] [id number] [address] [place] [id number] Nov, [facility] [address] [id number] [address] [place] [id number] Nov, [facility] [address] [id number] [address] [place] [address], [place] [address] Oct, [facility] [address] [id number] [address] [place] [address], [place] [address] Oct, [facility] [address] [id number] [address] [place] [address], [place] [address] Sep, [facility] [address] [id number] [address] [place] [address], [place] [address] Sep, [facility] [address] [id number] [address] [place] [address], [place] [address] Sep, [facility] [address] [id number] [address] [place] [address], [place] [address] Sep, [facility] [address] [id number] [address] [place] [address], [place] [address] Sep, [facility] [address] [id number] [address] [place] [address], [place] [address] Sep, [facility] [address] [id number] [address] [place] [address], [place] [address] Aug, [facility] [address] [id number] [address] [place] [address], [place] [address] Aug, [facility] [address] [id number] [address] [place] [address], [place] [address] Aug, [facility] [address] [id number] [address] [place] [address], [place] [address] Aug, [facility] [address] [id number] [address] [place] [address], [place] [address] Jul, [facility] [address] [id number] [address] [place] [address], [place] [address] Jul, [facility] [address] [id number] [address] [place] [address], [place] [address] Jul, [facility] [address] [id number] [address] [place] [address], [place] [address] Jul, [facility] [address] [id number] [address] [place] [address], [place] [address] Jul, [facility] [address] [id number] [address] [place] [address], [place] [address] Jul, [facility] [address] [id number] [address] [place] [address], [place] [address] Jul, [facility] [address] [id number] [address] [place] [address], [place] [address] Jul, [facility] [address] [id number] [address] [place] [address], [place] [address] Jul, [facility] [address] [id number] [address] [place] [address], [place] [address] Jun, [facility] [address] [id number] [address] [place] [address], [place] [address] 15 Jun, 2014 [facility] [address] [id number] [address] [place] [address], [place] [address] 15 Jun, 2014 [facility] [address] [id number] [address] [place] [address], [place] [address] 25 May, 2014 [facility] [address] [id number] [address] [place] [address], [place] [address] 25 May, 2014 [facility] [address] [id number] [address] [place] [address], [place] [address] 24 May, 2013 [facility] [address] [id number] [address] [place] [address], [place] [address] 24 May, 2013 [facility] [address] [id number] [address] [place] [address], [place] [address] 24 May, 2013 [facility] [address] [id number] [address] [place] [address], [place] [address] 24 May, 2013 [facility] [address] [id number] [address] [place] [address], [place] [address] May, [facility] [address] [id number] [address] [place] [phone] May, [facility] [address] [id number] [address] [place] [phone] May, [facility] [address] [id number] [address] [place] [phone] May, [facility] [address] [id number] [address] [place] [id number] May, [facility] [address] [id number] [address] [place] [id number] May, [facility] [address] [id number] [address] [place] [address] May, [facility] [address] [id number] [address] [place] [address] May, [facility] [address] [id number] [address] [place] [id number] May, [facility] [address] [id number] [address] [place] [address] May, [facility] [address] [id number] [address] [place] [address] Apr, [facility] [address] [id number] [address] [place] [id number] Apr, [facility] [address] [id number] [address] [place] [phone] Aug, [facility] [address] [id number] [address] [place] [address] Jul, IMMUNIZATIONS No Known Immunizations SOCIAL HISTORY Never Assessed REASON FOR VISIT PLAN OF CARE VITAL SIGNS Weight 146 lbs 2014-05-11 Temperature 97.7 degrees Fahrenheit 2014-05-11 Heart Rate 80 bpm 2014-05-11 Respiratory Rate 18 2014-05-11 Blood pressure systolic 184 mmHg 2014-05-11 Blood pressure diastolic 99 mmHg 2014-05-11 MEDICATIONS No Known Medications RESULTS No Results PROCEDURES Procedure Date Ordered Result Body Site ELECTROCARDIOGRAM, TRACING May 11, 2014 INSTRUCTIONS MEDICATIONS ADMINISTERED No Known Medications [...]
--- OUTSIDE RECORDS SUMMARY | 2020-02-27 15:41 | XMS REPORT ---
Author Author Beba CORBIN [facility] Address [address] [place] [address] Care Team Providers Care Team Leader/Research Psychologist Name Role Phone EMERALD EDWARD Unavailable PROBLEMS Type Condition ICD9-CM Code TFZ99-FX Code Onset Dates Condition S tatus SNOMED Code Problem Essential hypertension I10 Active 85054251 Problem Chronic constipation K59.00 Active 435196465 Problem Atrophy of left kidney N26.1 Active 468931697 Problem Vitamin D deficiency E55.9 Active 68940689 Problem Colon wall thickening K63.9 Active 926845188 Problem Chronic prescription opiate use Z79.899 Active 489012920 Problem Gastroesophageal reflux disease, esophagitis pre sence not specified K21.9 Active 684902622 Problem Hyperlipidemia, unspecified hyperlipidemia E78.5 Active 99819280 Problem Bladder wall thickening N32.89 Active 737215804 Problem Chronic pain syndrome G89.4 Active 891443062 Problem Asthma exacerbation J45.901 Active 501542710 Problem Severe episode of recurrent major depressive disorder, without psychotic features F33.2 Active 24685685 Problem Dependence on supplemental oxygen Z99.81 Active 109720568830 Problem Moderate persistent asthma with acute exacerbation J45.41 Active [id number] Problem Rheumatoid arthritis involvi ng multiple sites with positive rheumatoid factor M05.89 Active 845946961 Problem Chronic respiratory failure with hypoxia J96.11 Active 709151596 Problem Osteoporosis M81.0 Active 5712213 6 Problem Pernicious anemia D51.0 Active 84 205950 Problem Chronic kidney disease, stage 1 N18.1 Active 175430610 Problem Generalized anxiety disorder F41.1 A ctive 61307565 Problem Moderate persistent asthma without complication J4 5.40 Active 261458504 Problem Lumbago with sciatica, left side M54.42 Active 899587407 Problem Lumbago with sciatica, right side M54.41 Active [id number] ALLERGIES No Information ENCOUNTERS Encounter Location Date Diagnosis [facility] [address] [facility] [id number] [address] [place] [address] Mar, Rheumatoid arthritis involvi ng multiple sites with positive rheumatoid factor M05.89 and Chronic constipation K59.00 [facility] [address] [facility] [id number] [address] [place] [address] Mar, [facility] [address] [place] [id number] [address] [place] [address] Mar, Dizziness R42 and Nausea and vomiting, intractability of vomiting not specified, unspecified vomiting type R11.2 [facility] [address] [facility] [id number] [address] [place] [address] Feb, Chronic pain syndrome G89.[address] [address] January, Chronic pain syndrome G89.4 [facility] [address] [place] [id number] [address] [place] [address] Dec, [facility] [address] [place] [id number] [address] [place] [address] Dec, [facility] [address] [place] [id number] [place] [address] Dec, Asthma exacerbation J45.901 ; Essential hypertension I10 ; Hyperlipidemia, unspecified hyperlipidemia E78.5 ; Rheumatoid arthritis involving multiple sites with positive rheumatoid factor M05.89 ; Chronic pain syndrome G89.4 ; Chronic kidney disease, stage 1 N18.1 ; Chronic respiratory failure with hypoxia J96.11 and Dependence on supplemental oxygen Z99.81 [facility] [address] [facility] [id number] [address] [place] [address] Dec, Chronic pain syndrome G89.4 [facility] [address] [place] [id number] [address] [place] [address] Nov, Chronic pain syndrome G89.4 [facility] [address] [place] [id number] [address] [place] [address] Nov, [place] [address] [facility] [id number] [address] [place] [address] Oct, Chronic pain syndrome G89.4 [facility] [address] [facility] [id number] [address] [place] [address] Oct, [facility] [address] [facility] [id number] [address] [place] [address] Oct, Viral upper respiratory trac t infection J06.9 ; Chronic constipation K59.00 ; Severe episode of recurrent major depressive disorder, without psychotic features F33.2 ; Moderate persistent asthma with acute exacerbation J45.41 ; Essential hypertension I10 ; Gastroesophageal reflux disease, esophagitis presence not specified K21.9 and Hyperlipidemia, unspecified hyperlipidemia E78.5 [facility] [address] [facility] [id number] [address] [place] [address] Oct, [place] [address] [place] [id number] [address] [place] [address] Sep, Chronic pain syndrome G89.4 [facility] [address] [address] Sep, Rheumatoid arthritis involvi ng multiple sites with positive rheumatoid factor M05.89 ; Chronic constipation K59.00 ; Gastroesophageal reflux disease, esophagitis presence not specified K21.9 ; Asthma exacerbation J45.901 ; Severe episode of recurrent major depressive disorder, without psychotic features F33.2 ; Ganglion cyst M67.40 and Chronic prescription opiate use Z79.899 [facility] [address] [place] [id number] [address] [place] [address] Aug, Cough R05 and Moderate persi stent asthma with acute exacerbation J45.41 [facility] [address] [place] [id number] [address] [place] [address] Aug, Chronic pain syndrome G89.4 [facility] [address] [facility] [id number] [address] [place] [address] Jul, Chronic pain syndrome G89.4 [facility] [address] [place] [id number] [address] [place] [address] Jul, Acute nasopharyngitis J00 [facility] [address] [id number] [address] [place] [address] Jun, [facility] [address] [id number] [address] [place] [address] Jun, Chronic pain syndrome G89.4 [facility] [address] [id number] [address] [place] [address] 21 May, 2018 Chronic pain syndrome G89.4 [facility] [address] [id number] [address] [place] [address] 14 May, 2018 [facility] [address] [id number] [address] [place] [address] May, [facility] [address] [facility] [id number] [address] [place] [address] May, Moderate persistent asthma w [facility] acute exacerbation J45.41 and Rheumatoid arthritis involving multiple sites with positive rheumatoid factor M05.89 [facility] [address] [id number] [address] [place] [address] May, Moderate persistent asthma w [facility] acute exacerbation J45.41 and Hypoxia R09.02 [facility] [address] [id number] [address] [place] [address] Apr, Chronic pain syndrome G89.4 [facility] [address] [facility] [id number] [address] [place] [address] Mar, High ankle sprain of right l ower extremity, subsequent encounter S93.431D ; Lumbago with sciatica, left side M54.42 and Lumbago with sciatica, right side M54.41 [facility] [address] [id number] [address] [place] [address] Mar, [facility] [address] [facility] [id number] [address] [place] [address] Mar, Chronic pain syndrome G89.4 [facility] [address] [facility] [id number] [address] [place] [address] Mar, [place] [address] [facility] [id number] [address] [place] [address] Mar, Asthma exacerbation J45.901 and Sprain of right ankle, unspecified ligament, subsequent encounter S93.401D [facility] [address] [facility] [id number] [address] [place] [id number] 30 Feb, 2018 Injury of right ankle, initi al encounter S99.911A [place] [address] [facility] [id number] [address] [place] [address] Feb, Chronic pain syndrome G89.4 [place] [address] [place] [id number] [place] [address] Feb, Chronic pain syndrome G89.4 [place] [address] [address] Feb, Moderate persistent asthma w ith acute exacerbation J45.41 and Persistent cough for 3 weeks or longer R05 [place] [address] [place] [id number] [address] [place] [address] January, [place] [address] [place] [id number] [place] [address] January, Moderate persistent asthma w ith acute exacerbation J45.41 [place] [address] [place] [id number] [address] [place] [address] January, Chronic pain syndrome G89.4 [place] [address] [facility] [id number] [address] [place] [address] January, Tachycardia R00.0 and Modera te persistent asthma with acute exacerbation J45.41 [place] [address] [facility] [id number] [address] [place] [address] January, Tachycardia R00.0 ; Moderate persistent asthma with acute exacerbation J45.41 ; Gastroesophageal reflux disease, esophagitis presence not specified K21.9 ; Hyperlipidemia, unspecified hyperlipidemia E78.5 and Chronic pain syndrome G89.4 [facility] [address] [place] [id number] [address] [place] [address] Dec, Medicare annual wellness vis it, initial [...] immunization Z23 and Chronic pain syndrome G89.4 [place] [address] [place] [id number] [address] [place] [address] 24 Dec, 2017 Chronic pain syndrome G89.4 [place] [address] [place] [id number] [address] [place] [address] Dec, [place] [address] [place] [id number] [place] [address] Nov, [facility] [address] [place] [id number] [address] [place] [address] Nov, Chronic pain syndrome G89.4 [facility] [address] [place] [id number] [address] [place] [address] Oct, Chronic pain syndrome G89.4 [facility] [address] [place] [id number] [address] [place] [id number] 08 Oct, 2017 Chronic kidney disease, stag e 1 N18.1 [facility] [address] [place] [id number] [address] [place] [address] 07 Oct, 2017 Chronic prescription opiate use Z79.899 ; Cough R05 ; Asthma exacerbation J45.901 ; Elevated liver enzymes R74.8 ; Rheumatoid arthritis involving multiple sites with positive rheumatoid factor M05.89 and Chronic pain syndrome G89.4 [facility] [address] [place] [id number] [address] [place] [address] Sep, Chronic pain syndrome G89.4 [place] [address] [facility] [id number] [address] [place] [address] Sep, [place] [address] [place] [id number] [address] [place] [address] Aug, Acute bronchitis, unspecifie d organism J20.9 [place] [address] [place] [id number] [place] [address] Aug, Chronic pain syndrome G89.4 [place] [address] [place] [id number] [address] [place] [address] Jul, Chronic pain syndrome G89.4 [place] [address] [address] Jun, Chronic pain syndrome G89.4 [place] [address] [address] May, Rheumatoid arthritis involvi ng multiple sites with positive rheumatoid factor M05.89 [place] [address] [address] May, Gastroesophageal reflux dise ase, esophagitis presence not specified K21.9 and Chronic pain syndrome G89.4 [place] [address] [place] [id number] [address] [place] [address] May, [place] [address] [address] May, Esophageal candidiasis B37.8 1 and Chronic kidney disease, stage 1 N18.1 [place] [address] [place] [id number] [address] [place] [address] 11 May, 2017 Chronic kidney disease, stag e 1 N18.1 [place] [address] [place] [id number] [address] [place] [address] 05 May, 2017 Cough R05 ; Fever, unspecifi ed fever cause R50.9 ; Rheumatoid arthritis involving multiple sites with positive rheumatoid factor M05.89 and Chronic prescription opiate use Z79.899 [place] [address] [place] [id number] [address] [place] [address] Apr, [facility] [address] [facility] [id number] [address] [place] [address] Apr, Cough R05 [facility] [address] [facility] [id number] [address] [place] [address] Apr, Asthma exacerbation J45.901 [place] [address] [facility] [id number] [address] [place] [address] Apr, [place] [address] [facility] [id number] [address] [place] [address] Apr, Generalized anxiety disorder F41.1 and Severe episode of recurrent major depressive disorder, without psychotic features F33.2 [place] [address] [facility] [id number] [address] [place] [address] Mar, [place] [address] [facility] [id number] [address] [place] [address] Feb, Chronic pain syndrome G89.4 [place] [address] [facility] [id number] [address] [place] [address] Feb, Acute non-recurrent maxillar y sinusitis J01.00 [place] [address] [facility] [id number] [address] [place] [address] Feb, Acute non-recurrent frontal sinusitis J01.10 [place] [address] [facility] [id number] [address] [place] [address] Feb, Chronic pain syndrome G89.4 [place] [address] [facility] [id number] [address] [place] [address] January, Acute cystitis with hematuri a N30.01 [place] [address] [facility] [id number] [address] [place] [address] January, Acute cystitis with hematuri a N30.01 ; Dysuria R30.0 and Moderate persistent asthma with acute exacerbation J45.41 [place] [address] [place] [id number] [address] [place] [address] January, [facility] [id number] [place] [address] January, Chronic pain syndrome G89.4 [facility] [address] [place] [id number] [address] [place] [address] January, Asthma exacerbation J45.901 [facility] [address] [address] January, Asthma exacerbation J45.901 [place] [address] [address] Dec, Cough R05 ; Numbness in both hands R20.0 ; Ground glass opacity present on imaging of lung R91.8 ; Hypoxia R09.02 and Asthma exacerbation J45.901 [place] [address] [address] Dec, Chronic pain syndrome G89.4 [place] [address] [address] Nov, Chronic prescription opiate use Z79.899 ; Rheumatoid arthritis involving multiple sites with positive rheumatoid factor M05.89 ; Moderate persistent asthma with acute exacerbation J45.41 ; Pneumonia of right lower lobe due to infectious organism J18.1 ; Chronic pain syndrome G89.4 ; Gastroesophageal reflux disease, esophagitis presence not specified K21.9 and Hyperlipidemia, unspecified hyperlipidemia E78.5 [place] [address] [place] [address] Nov, Rheumatoid arthritis involvi ng multiple sites with positive rheumatoid factor M05.89 [place] [address] [address] Oct, [place] [address] [address] Oct, Essential hypertension I10 [place] [address] [address] Sep, Hypoxia R09.02 and Ground gl ass opacity present on imaging of lung R91.8 [facility] [address] [id number] [address] [place] [address] 09 Sep, 2016 Moderate persistent asthma w ith acute exacerbation J45.41 [facility] [id number] [place] [id number] Sep, [facility] [address] [id number] [address] [place] [address] Sep, Chronic constipation K59.00 and Moderate persistent asthma with acute exacerbation J45.41 [place] [address] [id number] [address] [place] [address] Sep, Moderate persistent asthma w ith acute exacerbation J45.41 [facility] [address] [id number] [address] [place] [address] 30 Aug, 2016 [facility] [address] [id number] [address] [place] [address] Aug, [facility] [address] [id number] [address] [place] [address] Aug, [facility] [address] [facility] [id number] [address] [place] [address] Aug, Rheumatoid arthritis involvi multiple sites with positive rheumatoid factor M05.89 ; Essential hypertension I10 ; Hyperlipidemia, unspecified hyperlipidemia E78.5 ; Chronic constipation K59.00 and Moderate persistent asthma with acute exacerbation J45.41 [facility] [address] [id number] [address] [place] [address] Aug, Bronchitis J40 [facility] [address] [id number] [address] [place] [address] Aug, Rheumatoid arthritis involvi ng multiple sites with positive rheumatoid factor M05.89 [facility] [address] [id number] [address] [place] [address] Aug, Pharyngitis, unspecified pablito ology J02.9 and Acute nasopharyngitis J00 [facility] [address] [facility] [id number] [address] [place] [address] Aug, [facility] [address] [facility] [id number] [place] [address] Jul, [facility] [address] [place] [id number] [place] [address] Jul, Rheumatoid arthritis involvi ng multiple sites with positive rheumatoid factor M05.89 ; Essential hypertension I10 ; Hyperlipidemia, unspecified hyperlipidemia E78.5 ; Rash R21 ; Mild persistent asthma with acute exacerbation J45.31 ; Hematuria R31.9 ; Osteoporosis M81.0 and Gastroesophageal reflux disease, esophagitis presence not specified K21.9 [facility] [address] [place] [id number] [place] [address] 18 Jun, 2016 [facility] [address] [address] Jun, Dysuria R30.0 [facility] [address] [facility] [id number] [address] [place] [address] 05 Jun, 2016 Acute non-recurrent maxillar y sinusitis J01.00 and Dysuria R30.0 [facility] [address] [place] [id number] [place] [address] 16 May, 2016 [facility] [address] [address] May, [facility] [address] [address] Apr, Chronic prescription opiate use Z79.899 and Rheumatoid arthritis involving multiple sites with positive rheumatoid factor M05.89 [facility] [address] [place] [id number] [place] [address] Mar, [facility] [address] [place] [id number] [place] [address] Feb, Dizziness of unknown cause R 42 and Other chronic pain G89.29 [place] [address] [facility] [id number] [address] [place] [address] Feb, [facility] [address] [facility] [id number] [address] [place] [address] Feb, Shortness of breath R06.02 [facility] [address] [facility] [id number] [address] [place] [address] January, [facility] [address] [place] [id number] [place] [address] January, Rheumatoid arthritis involvi ng multiple sites with positive rheumatoid factor M05.89 ; Chronic prescription opiate use Z79.899 ; Hyperlipidemia, unspecified hyperlipidemia E78.5 ; Cough R05 ; Exposure to pneumonia Z20.828 ; Diarrhea, unspecified type R19.7 ; Weight loss R63.4 ; Lumbago with sciatica, right side M54.41 and Lumbago with sciatica, left side M54.42 [place] [address] [facility] [id number] [address] [place] [address] Dec, [facility] [address] [facility] [id number] [address] [place] [address] Dec, Bronchitis J40 [facility] [address] [facility] [id number] [address] [place] [address] Nov, [place] [address] [facility] [id number] [address] [place] [address] Nov, [facility] [address] [facility] [id number] [address] [place] [address] Nov, [facility] [address] [facility] [id number] [address] [place] [address] Nov, Bloody diarrhea R19.7 ; Rolla n wall thickening K63.9 ; Shortness of breath R06.02 and Bladder wall thickening N32.89 [facility] [address] [id number] [address] [place] [id number] Oct, Dental examination Z01.20 [facility] [address] [place] [id number] [place] [address] 15 Oct, 2015 [facility] [address] [facility] [id number] [address] [place] [address] 15 Oct, 2015 Toothache K08.8 [facility] [address] [id number] [address] [place] [id number] 11 Oct, 2015 Dental examination Z01.20 [facility] [address] [facility] [id number] [address] [place] [address] 02 Oct, 2015 [facility] [address] [facility] [id number] [address] [place] [address] Sep, [facility] [address] [facility] [id number] [address] [place] [address] Sep, Burning with urination R30.0 [facility] [address] [facility] [id number] [address] [place] [address] Sep, Hematuria R31.9 ; Rheumatoid arthritis involving multiple sites with positive rheumatoid factor M05.89 and Rheumatoid arthritis flare M06.9 [facility] [address] [facility] [id number] [address] [place] [address] Aug, Hyperlipidemia, unspecified hyperlipidemia E78.5 and Hematuria R31.9 [facility] [address] [facility] [id number] [address] [place] [address] Aug, Hematuria R31.9 ; Chronic ki dney disease, stage 1 N18.1 and Hyperlipidemia, unspecified hyperlipidemia E78.5 [facility] [address] [facility] [id number] [address] [place] [address] Aug, Rheumatoid arthritis involvi ng multiple sites with positive rheumatoid factor M05.89 ; Asthma exacerbation J45.901 ; Hematuria R31.9 ; Hyperlipidemia, unspecified hyperlipidemia E78.5 and Chronic kidney disease, stage 1 N18.1 [facility] [address] [facility] [id number] [address] [place] [address] Aug, [facility] [address] [id number] [address] [place] [address] Jul, [facility] [address] [id number] [address] [place] [id number] Jul, Lumbosacral radiculopathy M5 4.17 [facility] [address] [id number] [address] [place] [id number] Jul, [facility] [address] [facility] [id number] [address] [place] [address] Jun, Rheumatoid arthritis involvi ng multiple sites with positive rheumatoid factor M05.89 ; Hyperlipidemia, unspecified hyperlipidemia E78.5 ; Lumbosacral radiculopathy M54.17 ; Carpal tunnel syndrome, right upper limb G56.01 and Carpal tunnel syndrome, left upper limb G56.02 [facility] [address] [facility] [id number] [address] [place] [id number] Jun, [facility] [address] [facility] [id number] [address] [place] [address] May, Lumbar radicular pain 724.4 and Dysuria 788.1 [facility] [address] [facility] [id number] [address] [place] [address] May, Rheumatoid arthritis 714.0 ; Lumbar radicular pain 724.4 ; Burn 949.0 and Thoracic back pain 724.1 [facility] [address] [facility] [id number] [address] [place] [phone] May, [facility] [address] [facility] [id number] [address] [place] [id number] May, [facility] [address] [facility] [id number] [address] [place] [id number] Apr, [facility] [address] [facility] [id number] [address] [place] [id number] Mar, Hyperlipidemia 272.4 [facility] [address] [facility] [id number] [address] [place] [id number] Mar, [facility] [address] [id number] [address] [place] [id number] Mar, [facility] [address] [id number] [address] [place] [address] Mar, Diarrhea 787.91 ; Chronic ki dney disease, unspecified 585.9 ; Hyperlipidemia 272.4 and Asthma 493.90 [facility] [address] [id number] [address] [place] [address] Mar, [facility] [address] [id number] [address] [place] [id number] Mar, Gastroenteritis 558.9 [facility] [address] [id number] [address] [place] [id number] Feb, [facility] [address] [facility] [id number] [address] [place] [id number] January, [facility] [address] [id number] [address] [place] [id number] January, [facility] [address] [id number] [address] [place] [id number] Dec, [facility] [address] [id number] [address] [place] [phone] Dec, [facility] [address] [id number] [address] [place] [id number] Nov, [facility] [address] [id number] [address] [place] [id number] Nov, [facility] [address] [id number] [address] [place] [id number] Nov, [facility] [address] [id number] [address] [place] [id number] Nov, [facility] [address] [id number] [address] [place] [phone] Nov, [facility] [address] [id number] [address] [place] [phone] Nov, [facility] [address] [id number] [address] [place] [address], [place] [address] Oct, [facility] [address] [id number] [address] [place] [address], [place] [address] Oct, [facility] [address] [id number] [address] [place] [address], [place] [id number] Sep, [facility] [address] [id number] [address] [place] [address], [place] [address] Sep, [facility] [address] [id number] [address] [place] [address], [place] [address] Sep, [facility] [address] [id number] [address] [place] [address], [place] [address] Sep, [facility] [address] [id number] [address] [place] [address], [place] [id number] Sep, [facility] [address] [id number] [address] [place] [address], [place] [address] Sep, [facility] [address] [id number] [address] [place] [address], [place] [address] Aug, [facility] [address] [id number] [address] [place] [address], [place] [address] Aug, [facility] [address] [id number] [address] [place] [address], [place] [address] Aug, [facility] [address] [id number] [address] [place] [address], [place] [address] Aug, [facility] [address] [id number] [address] [place] [address], [place] [address] Jul, [facility] [address] [id number] [address] [place] [address], [place] [address] Jul, [facility] [address] [id number] [address] [place] [address], [place] [address] Jul, [facility] [address] [id number] [address] [place] [address], [place] [address] Jul, [facility] [address] [id number] [address] [place] [address], [place] [address] Jul, [facility] [address] [id number] [address] [place] [address], [place] [address] Jul, [facility] [address] [id number] [address] [place] [address], [place] [address] Jul, [facility] [address] [id number] [address] [place] [address], [place] [address] Jul, [facility] [address] [id number] [address] [place] [address], [place] [address] Jul, [facility] [address] [id number] [address] [place] [address], [place] [address] Jun, [facility] [address] [id number] [address] [place] [address], [place] [address] 15 Jun, 2014 [facility] [address] [id number] [address] [place] [address], [place] [address] 15 Jun, 2014 [facility] [address] [id number] [address] [place] [address], [place] [address] 25 May, 2014 [facility] [address] [id number] [address] [place] [address], [place] [address] 25 May, 2014 [facility] [address] [id number] [address] [place] [address], [place] [address] 24 May, 2013 [facility] [address] [id number] [address] [place] [address], [place] [address] 24 May, 2013 [facility] [address] [id number] [address] [place] [address], [place] [address] 24 May, 2013 [facility] [address] [id number] [address] [place] [address], [place] [address] 24 May, 2013 [facility] [address] [id number] [address] [place] [address], [place] [address] May, [facility] [address] [id number] [address] [place] [id number] May, [facility] [address] [id number] [address] [place] [id number] May, [facility] [address] [id number] [address] [place] [id number] May, [facility] [address] [id number] [address] [place] [id number] May, [facility] [address] [id number] [address] [place] [id number] May, [facility] [address] [id number] [address] [place] [id number] May, [facility] [address] [id number] [address] [place] [id number] May, [facility] [address] [id number] [address] [place] [id number] May, [facility] [address] [id number] [address] [place] [id number] May, [facility] [address] [id number] [address] [place] [id number] Apr, [facility] [address] [id number] [address] [place] [id number] Apr, [facility] [address] [id number] [address] [place] [id number] Aug, [facility] [address] [id number] [address] [place] [id number] Jul, IMMUNIZATIONS No Known Immunizations SOCIAL HISTORY Never Assessed REASON FOR VISIT Controlled Medication Refill PLAN OF CARE VITAL SIGNS MEDICATIONS Medication Instructions Dosage Frequency Start Date End Date Duration S rogelious OxyContin 15 mg Orally every 12 hrs 1 tablet 12h Nov, 28 days Active RESULTS No Results PROCEDURES No Known procedures [...]
--- OUTSIDE RECORDS SUMMARY | 2020-02-27 15:41 | XMS REPORT ---
Author Author Beba CORBIN [facility] Address [address] [place] [address] Care Team Providers [employer] Supervisor Name Role Phone EMERALD EDWARD Unavailable PROBLEMS Type Condition ICD9-CM Code EGH51-OG Code Onset Dates Condition S tatus SNOMED Code Problem Essential hypertension I10 Active 18404651 Problem Chronic constipation K59.00 Active 167805741 Problem Atrophy of left kidney N26.1 Active 311376313 Problem Vitamin D deficiency E55.9 Active 11775499 Problem Colon wall thickening K63.9 Active 093407876 Problem Chronic prescription opiate use Z79.899 Active 708118720 Problem Gastroesophageal reflux disease, esophagitis pre sence not specified K21.9 Active 928853932 Problem Hyperlipidemia, unspecified hyperlipidemia E78.5 Active 17430071 Problem Bladder wall thickening N32.89 Active 704985597 Problem Chronic pain syndrome G89.4 Active 118861306 Problem Asthma exacerbation J45.901 Active 878391506 Problem Severe episode of recurrent major depressive disorder, without psychotic features F33.2 Active 96880119 Problem Dependence on supplemental oxygen Z99.81 Active 724075454744 Problem Moderate persistent asthma with acute exacerbation J45.41 Active 435354920159981 Problem Rheumatoid arthritis involvi ng multiple sites with positive rheumatoid factor M05.89 Active 417795442 Problem Chronic respiratory failure with hypoxia J96.11 Active 273950179 Problem Osteoporosis M81.0 Active 9544199 6 Problem Pernicious anemia D51.0 Active 84 410530 Problem Chronic kidney disease, stage 1 N18.1 Active 464207356 Problem Generalized anxiety disorder F41.1 A ctive 99475114 Problem Moderate persistent asthma without complication J4 5.40 Active 148350377 Problem Lumbago with sciatica, left side M54.42 Active 918991731 Problem Lumbago with sciatica, right side M54.41 Active [id number] ALLERGIES No Information ENCOUNTERS Encounter Location Date Diagnosis [facility] [address] [facility] [id number] [address] [place] [phone] Apr, Rheumatoid arthritis involvi ng multiple sites with positive rheumatoid factor M05.89 [facility] [address] [facility] [place] [id number] [address] [place] [phone] Apr, [facility] [address] [facility] [place] [id number] [address] [place] [phone] Apr, [facility] [address] [place] [id number] [address] [place] [id number] Mar, Rheumatoid arthritis involvi ng multiple sites with positive rheumatoid factor M05.89 and Chronic constipation K59.00 [facility] [address] [facility] [place] [id number] [address] [place] [phone] Mar, [facility] [address] [place] [id number] [address] [place] [address] Mar, Dizziness R42 and Nausea and vomiting, intractability of vomiting not specified, unspecified vomiting type R11.2 [facility] [address] [place] [id number] [address] [place] [phone] Feb, Chronic pain syndrome G89.[address] [address] January, Chronic pain syndrome G89.4 [facility] [address] [facility] [place] [id number] [address] [place] [phone] Dec, [facility] [address] [place] [id number] [address] [place] [address] Dec, [facility] [address] [place] [place] [id number] [address] [place] [address] Dec, Asthma exacerbation J45.901 ; Essential hypertension I10 ; Hyperlipidemia, unspecified hyperlipidemia E78.5 ; Rheumatoid arthritis involving multiple sites with positive rheumatoid factor M05.89 ; Chronic pain syndrome G89.4 ; Chronic kidney disease, stage 1 N18.1 ; Chronic respiratory failure with hypoxia J96.11 and Dependence on supplemental oxygen Z99.81 [place] [id number] [place] [id number] [address] [place] [address] Dec, Chronic pain syndrome G89.4 [facility] [address] [address] Nov, Chronic pain syndrome G89.4 [facility] [address] [address] Nov, [facility] [address] [address] Oct, Chronic pain syndrome G89.4 [facility] [address] [address] Oct, [facility] [address] [address] Oct, Viral upper respiratory trac t infection J06.9 ; Chronic constipation K59.00 ; Severe episode of recurrent major depressive disorder, without psychotic features F33.2 ; Moderate persistent asthma with acute exacerbation J45.41 ; Essential hypertension I10 ; Gastroesophageal reflux disease, esophagitis presence not specified K21.9 and Hyperlipidemia, unspecified hyperlipidemia E78.5 [facility] [address] [address] 05 Oct, 2018 [facility] [address] [address] Sep, Chronic pain syndrome G89.4 [facility] [address] [address] Sep, Rheumatoid arthritis involvi ng multiple sites with positive rheumatoid factor M05.89 ; Chronic constipation K59.00 ; Gastroesophageal reflux disease, esophagitis presence not specified K21.9 ; Asthma exacerbation J45.901 ; Severe episode of recurrent major depressive disorder, without psychotic features F33.2 ; Ganglion cyst M67.40 and Chronic prescription opiate use Z79.899 [facility] [address] [place] [id number] [address] [place] [address] Aug, Cough R05 and Moderate persi stent asthma with acute exacerbation J45.41 [facility] [address] [id number] [address] [place] [id number] Aug, Chronic pain syndrome G89.4 [facility] [address] [id number] [address] [place] [address] Jul, Chronic pain syndrome G89.4 [facility] [address] [id number] [address] [place] [address] Jul, Acute nasopharyngitis J00 [facility] [address] [id number] [address] [place] [id number] Jun, [facility] [address] [id number] [address] [place] [address] Jun, Chronic pain syndrome G89.4 [facility] [address] [id number] [address] [place] [id number] May, Chronic pain syndrome G89.4 [facility] [address] [id number] [address] [place] [address] 14 May, 2018 [facility] [address] [id number] [address] [place] [id number] 13 May, 2018 [facility] [address] [id number] [address] [place] [address] 13 May, 2018 Moderate persistent asthma w ith acute exacerbation J45.41 and Rheumatoid arthritis involving multiple sites with positive rheumatoid factor M05.89 [facility] [address] [id number] [address] [place] [address] 12 May, 2018 Moderate persistent asthma w ith acute exacerbation J45.41 and Hypoxia R09.02 [facility] [address] [id number] [address] [place] [id number] Apr, Chronic pain syndrome G89.4 [facility] [address] [id number] [address] [place] [address] Mar, High ankle sprain of right l ower extremity, subsequent encounter S93.431D ; Lumbago with sciatica, left side M54.42 and Lumbago with sciatica, right side M54.41 [facility] [address] [id number] [address] [place] [address] Mar, [facility] [address] [id number] [address] [place] [address] Mar, Chronic pain syndrome G89.4 [facility] [address] [id number] [address] [place] [address] Mar, [facility] [address] [id number] [address] [place] [id number] Mar, Asthma exacerbation J45.901 and Sprain of right ankle, unspecified ligament, subsequent encounter S93.401D [facility] [address] [id number] [address] [place] [address] Feb, Injury of right ankle, initi al encounter S99.911A [facility] [address] [id number] [address] [place] [address] Feb, Chronic pain syndrome G89.4 [facility] [address] [id number] [address] [place] [address] Feb, Chronic pain syndrome G89.4 [facility] [address] [id number] [address] [place] [address] Feb, Moderate persistent asthma w [facility] acute exacerbation J45.41 and Persistent cough for 3 weeks or longer R05 [facility] [address] [id number] [address] [place] [address] January, [facility] [address] [id number] [address] [place] [address] January, Moderate persistent asthma w ith acute exacerbation J45.41 [facility] [address] [id number] [address] [place] [address] January, Chronic pain syndrome G89.4 [facility] [address] [id number] [address] [place] [address] 14 Jan, 2018 Tachycardia R00.0 and Modera te persistent asthma with acute exacerbation J45.41 [place] [address] [address] 11 Jan, 2018 Tachycardia R00.0 ; Moderate persistent asthma with acute exacerbation J45.41 ; Gastroesophageal reflux disease, esophagitis presence not specified K21.9 ; Hyperlipidemia, unspecified hyperlipidemia E78.5 and Chronic pain syndrome G89.4 [place] [address] [place] [id number] [address] [place] [address] Dec, Medicare annual wellness vis it, initial [...] immunization Z23 and Chronic pain syndrome G89.4 [place] [address] [place] [id number] [address] [place] [address] Dec, Chronic pain syndrome G89.4 [place] [address] [place] [id number] [address] [place] [address] Dec, [place] [address] [place] [id number] [address] [place] [id number] Nov, [place] [address] [place] [id number] [address] [place] [address] Nov, Chronic pain syndrome G89.4 [place] [address] [place] [id number] [address] [place] [address] Oct, Chronic pain syndrome G89.4 [place] [address] [place] [id number] [address] [place] [address] Oct, Chronic kidney disease, stag e 1 N18.1 [place] [address] [place] [address] Oct, Chronic prescription opiate use Z79.899 ; Cough R05 ; Asthma exacerbation J45.901 ; Elevated liver enzymes R74.8 ; Rheumatoid arthritis involving multiple sites with positive rheumatoid factor M05.89 and Chronic pain syndrome G89.4 [facility] [address] [place] [id number] [address] [place] [address] Sep, Chronic pain syndrome G89.4 [facility] [address] [address] Sep, [facility] [address] [address] Aug, Acute bronchitis, unspecifie d organism J20.9 [place] [address] [place] [id number] [place] [address] Aug, Chronic pain syndrome G89.4 [place] [address] [place] [id number] [place] [address] Jul, Chronic pain syndrome G89.4 [facility] [address] [place] [id number] [place] [address] Jun, Chronic pain syndrome G89.4 [facility] [address] [place] [id number] [place] [address] May, Rheumatoid arthritis involvi ng multiple sites with positive rheumatoid factor M05.89 [facility] [address] [place] [id number] [address] [place] [address] May, Gastroesophageal reflux dise ase, esophagitis presence not specified K21.9 and Chronic pain syndrome G89.4 [facility] [address] [place] [id number] [address] [place] [id number] May, [facility] [address] [place] [id number] [place] [address] May, Esophageal candidiasis B37.8 1 and Chronic kidney disease, stage 1 N18.1 [facility] [address] [place] [id number] [address] [place] [address] May, Chronic kidney disease, stag e 1 N18.1 [place] [id number] [address] 05 May, 2017 Cough R05 ; Fever, unspecifi ed fever cause R50.9 ; Rheumatoid arthritis involving multiple sites with positive rheumatoid factor M05.89 and Chronic prescription opiate use Z79.899 [facility] [address] [place] [id number] [address] [place] [address] Apr, [facility] [address] [address] Apr, Cough R05 [place] [address] [address] Apr, Asthma exacerbation J45.901 [place] [address] [address] Apr, [facility] [address] [address] Apr, Generalized anxiety disorder F41.1 and Severe episode of recurrent major depressive disorder, without psychotic features F33.2 [place] [address] [address] Mar, [place] [address] [address] Feb, Chronic pain syndrome G89.4 [facility] [address] [place] [address] Feb, Acute non-recurrent maxillar y sinusitis J01.00 [place] [address] [place] [id number] [address] [place] [address] Feb, Acute non-recurrent frontal sinusitis J01.10 [place] [address] [place] [id number] [address] [place] [address] Feb, Chronic pain syndrome G89.4 [place] [address] [place] [id number] [address] [place] [address] January, Acute cystitis with hematuri a N30.01 [place] [address] [address] January, Acute cystitis with hematuri a N30.01 ; Dysuria R30.0 and Moderate persistent asthma with acute exacerbation J45.41 [place] [address] [address] January, [place] [address] [address] January, Chronic pain syndrome G89.4 [place] [address] [address] January, Asthma exacerbation J45.901 [place] [address] [address] January, Asthma exacerbation J45.901 [place] [address] [address] Dec, Cough R05 ; Numbness in both hands R20.0 ; Ground glass opacity present on imaging of lung R91.8 ; Hypoxia R09.02 and Asthma exacerbation J45.901 [place] [address] [address] Dec, Chronic pain syndrome G89.4 [place] [address] [address] Nov, Chronic prescription opiate use Z79.899 ; Rheumatoid arthritis involving multiple sites with positive rheumatoid factor M05.89 ; Moderate persistent asthma with acute exacerbation J45.41 ; Pneumonia of right lower lobe due to infectious organism J18.1 ; Chronic pain syndrome G89.4 ; Gastroesophageal reflux disease, esophagitis presence not specified K21.9 and Hyperlipidemia, unspecified hyperlipidemia E78.5 [place] [address] [address] Nov, Rheumatoid arthritis involvi multiple sites with positive rheumatoid factor M05.89 [facility] [address] [facility] [place] [id number] [address] [place] [address] Oct, [facility] [address] [facility] [place] [id number] [address] [place] [address] Oct, Essential hypertension I10 [facility] [address] [facility] [place] [id number] [address] [place] [address] Sep, Hypoxia R09.02 and Ground gl ass opacity present on imaging of lung R91.8 [place] [address] [facility] [id number] [address] [place] [address] Sep, Moderate persistent asthma w ith acute exacerbation J45.41 [facility] [id number] [place] [id number] Sep, [facility] [address] [facility] [id number] [address] [place] [address] Sep, Chronic constipation K59.00 and Moderate persistent asthma with acute exacerbation J45.41 [facility] [address] [facility] [id number] [address] [place] [address] Sep, Moderate persistent asthma w ith acute exacerbation J45.41 [facility] [address] [facility] [place] [id number] [address] [place] [id number] Aug, [facility] [address] [facility] [place] [id number] [address] [place] [address] Aug, [facility] [address] [facility] [place] [id number] [address] [place] [phone] Aug, [facility] [address] [facility] [place] [id number] [address] [place] [address] Aug, Rheumatoid arthritis involvi ng multiple sites with positive rheumatoid factor M05.89 ; Essential hypertension I10 ; Hyperlipidemia, unspecified hyperlipidemia E78.5 ; Chronic constipation K59.00 and Moderate persistent asthma with acute exacerbation J45.41 [facility] [address] [facility] [place] [id number] [address] [place] [address] Aug, Bronchitis J40 [facility] [address] [facility] [facility] [id number] [address] [place] [address] Aug, Rheumatoid arthritis involvi ng multiple sites with positive rheumatoid factor M05.89 [facility] [address] [place] [id number] [place] [address] Aug, Pharyngitis, unspecified pablito ology J02.9 and Acute nasopharyngitis J00 [facility] [address] [place] [id number] [place] [address] Aug, [facility] [address] [address] Jul, [facility] [address] [address] Jul, Rheumatoid arthritis involvi ng multiple sites with positive rheumatoid factor M05.89 ; Essential hypertension I10 ; Hyperlipidemia, unspecified hyperlipidemia E78.5 ; Rash R21 ; Mild persistent asthma with acute exacerbation J45.31 ; Hematuria R31.9 ; Osteoporosis M81.0 and Gastroesophageal reflux disease, esophagitis presence not specified K21.9 [facility] [address] [address] Jun, [facility] [address] [address] Jun, Dysuria R30.0 [facility] [address] [place] [id number] [address] [place] [address] 05 Jun, 2016 Acute non-recurrent maxillar y sinusitis J01.00 and Dysuria R30.0 [facility] [address] [place] [id number] [address] [place] [address] 16 May, 2016 [facility] [address] [place] [id number] [place] [address] May, [facility] [address] [address] Apr, Chronic prescription opiate use Z79.899 and Rheumatoid arthritis involving multiple sites with positive rheumatoid factor M05.89 [facility] [address] [place] [id number] [address] [place] [address] Mar, [facility] [address] [place] [id number] [address] [place] [address] Feb, Dizziness of unknown cause R 42 and Other chronic pain G89.29 [facility] [address] [place] [id number] [address] [place] [address] Feb, [facility] [address] [place] [id number] [address] [place] [address] Feb, Shortness of breath R06.02 [facility] [address] [place] [id number] [address] [place] [address] January, [facility] [address] [address] January, Rheumatoid arthritis involvi ng multiple sites with positive rheumatoid factor M05.89 ; Chronic prescription opiate use Z79.899 ; Hyperlipidemia, unspecified hyperlipidemia E78.5 ; Cough R05 ; Exposure to pneumonia Z20.828 ; Diarrhea, unspecified type R19.7 ; Weight loss R63.4 ; Lumbago with sciatica, right side M54.41 and Lumbago with sciatica, left side M54.42 [facility] [address] [place] [address] Dec, [facility] [address] [place] [id number] [address] [place] [id number] Dec, Bronchitis J40 [facility] [address] [place] [id number] [address] [place] [phone] Nov, [facility] [address] [place] [id number] [address] [place] [phone] Nov, [facility] [address] [place] [id number] [address] [place] [address] Nov, [facility] [address] [facility] [id number] [address] [place] [address] Nov, Bloody diarrhea R19.7 ; [place] n wall thickening K63.9 ; Shortness of breath R06.02 and Bladder wall thickening N32.89 [facility] [address] [id number] [address] [place] [id number] 15 Oct, 2015 Dental examination Z01.20 [facility] [address] [id number] [address] [place] [id number] 15 Oct, 2015 [facility] [address] [facility] [id number] [address] [place] [id number] 15 Oct, 2015 Toothache K08.8 [facility] [address] [id number] [address] [place] [address] [id number] 11 Oct, 2015 Dental examination Z01.20 [facility] [address] [facility] [id number] [address] [place] [address] 02 Oct, 2015 [facility] [address] [facility] [id number] [address] [place] [id number] 18 Sep, 2015 [facility] [address] [place] [id number] [place] [address] Sep, Burning with urination R30.0 [place] [address] [facility] [id number] [address] [place] [id number] Sep, Hematuria R31.9 ; Rheumatoid arthritis involving multiple sites with positive rheumatoid factor M05.89 and Rheumatoid arthritis flare M06.9 [place] [address] [facility] [id number] [address] [place] [address] Aug, Hyperlipidemia, unspecified hyperlipidemia E78.5 and Hematuria R31.9 [place] [address] [facility] [id number] [address] [place] [phone] Aug, Hematuria R31.9 ; Chronic ki dney disease, stage 1 N18.1 and Hyperlipidemia, unspecified hyperlipidemia E78.5 [place] [address] [id number] [address] [place] [address] Aug, Rheumatoid arthritis involvi ng multiple sites with positive rheumatoid factor M05.89 ; Asthma exacerbation J45.901 ; Hematuria R31.9 ; Hyperlipidemia, unspecified hyperlipidemia E78.5 and Chronic kidney disease, stage 1 N18.1 [facility] [address] [id number] [address] [place] [id number] Aug, [facility] [address] [facility] [id number] [address] [place] [address] [id number] Jul, [facility] [address] [id number] [address] [place] [id number] Jul, Lumbosacral radiculopathy M5 4.17 [facility] [address] [id number] [address] [place] [id number] Jul, [facility] [id number] [place] [id number] Jun, Rheumatoid arthritis involvi ng multiple sites with positive rheumatoid factor M05.89 ; Hyperlipidemia, unspecified hyperlipidemia E78.5 ; Lumbosacral radiculopathy M54.17 ; Carpal tunnel syndrome, right upper limb G56.01 and Carpal tunnel syndrome, left upper limb G56.02 [facility] [address] [id number] [address] [place] [id number] Jun, [facility] [address] [id number] [address] [place] [id number] 17 May, 2015 Lumbar radicular pain 724.4 and Dysuria 788.1 [facility] [address] [facility] [place] [id number] [address] [place] [id number] 08 May, 2015 Rheumatoid arthritis 714.0 ; Lumbar radicular pain 724.4 ; Burn 949.0 and Thoracic back pain 724.1 [facility] [address] [id number] [address] [place] [id number] May, [facility] [address] [id number] [address] [place] [id number] May, [facility] [address] [facility] [place] [id number] [address] [place] [id number] Apr, [facility] [address] [facility] [place] [id number] [address] [place] [id number] Mar, Hyperlipidemia 272.4 [facility] [address] [facility] [place] [id number] [address] [place] [id number] Mar, [facility] [address] [facility] [place] [id number] [address] [place] [id number] Mar, [facility] [address] [facility] [place] [id number] [address] [place] [id number] Mar, Diarrhea 787.91 ; Chronic ki dney disease, unspecified 585.9 ; Hyperlipidemia 272.4 and Asthma 493.90 [facility] [address] [facility] [place] [id number] [address] [place] [id number] Mar, [facility] [address] [facility] [place] [id number] [address] [place] [id number] Mar, Gastroenteritis 558.9 [facility] [address] [facility] [place] [id number] [address] [place] [id number] Feb, [facility] [address] [facility] [place] [id number] [address] [place] [id number] January, [facility] [address] [facility] [place] [id number] [address] [place] [id number] January, [facility] [address] [facility] [place] [id number] [address] [place] [id number] Dec, [facility] [address] [facility] [place] [id number] [address] [place] [id number] Dec, [facility] [address] [facility] [place] [id number] [address] [place] [id number] Nov, [facility] [address] [facility] [place] [id number] [address] [place] [phone] Nov, [facility] [address] [id number] [address] [place] [address], [place] [address] Nov, [facility] [address] [id number] [address] [place] [address], [place] [address] Nov, [facility] [address] [id number] [address] [place] [address], [place] [address] Nov, [facility] [address] [id number] [address] [place] [address], [place] [address] Nov, [facility] [address] [id number] [address] [place] [address], [place] [address] Oct, [facility] [address] [id number] [address] [place] [address], [place] [address] Oct, [facility] [address] [id number] [address] [place] [address], [place] [address] Sep, [facility] [address] [id number] [address] [place] [address], [place] [address] Sep, [facility] [address] [id number] [address] [place] [address], [place] [address] Sep, [facility] [address] [id number] [address] [place] [address], [place] [address] Sep, [facility] [address] [id number] [address] [place] [address], [place] [address] Sep, [facility] [address] [id number] [address] [place] [address], [place] [address] Sep, [facility] [address] [id number] [address] [place] [address], [place] [address] Aug, [facility] [address] [id number] [address] [place] [address], [place] [address] Aug, [facility] [address] [id number] [address] [place] [address], [place] [address] Aug, [facility] [address] [id number] [address] [place] [address], [place] [address] Aug, [facility] [address] [id number] [address] [place] [address], [place] [address] Jul, [facility] [address] [id number] [address] [place] [address], [place] [address] Jul, [facility] [address] [id number] [address] [place] [address], [place] [address] Jul, [facility] [address] [id number] [address] [place] [address], [place] [address] Jul, [facility] [address] [id number] [address] [place] [address], [place] [address] Jul, [facility] [address] [id number] [address] [place] [address], [place] [address] Jul, [facility] [address] [id number] [address] [place] [address], [place] [address] Jul, [facility] [address] [id number] [address] [place] [address], [place] [address] Jul, [facility] [address] [id number] [address] [place] [address], [place] [address] Jul, [facility] [address] [id number] [address] [place] [address], [place] [address] Jun, [facility] [address] [id number] [address] [place] [address], [place] [address] Jun, [facility] [address] [id number] [address] [place] [id number] Jun, [facility] [address] [id number] [address] [place] [address], [place] [address] May, [facility] [address] [id number] [address] [place] [address], [place] [address] May, [facility] [address] [id number] [address] [place] [address], [place] [address] 24 May, 2014 [facility] [address] [id number] [facility] [place] [address] 24 Sep, 2013 [facility] [address] [id number] [address] [place] [address], [place] [address] 24 May, 2013 [facility] [address] [id number] [address] [place] [address], [place] [address] 24 May, 2013 [facility] [address] [id number] [address] [place] [address], [place] [address] 19 May, 2013 [facility] [address] [id number] [address] [place] [address], [place] [address] 19 May, 2013 [facility] [address] [id number] [address] [place] [address], [place] [address] 11 May, 2013 [facility] [address] [id number] [address] [place] [address], [place] [address] 11 May, 2013 [facility] [address] [id number] [address] [place] [address], [place] [address] 11 May, 2013 [facility] [address] [id number] [address] [place] [address], [place] [address] 11 May, 2013 [facility] [address] [id number] [address] [place] [address], [place] [address] 10 May, 2013 [facility] [address] [id number] [address] [place] [address], [place] [address] 09 May, 2013 [facility] [address] [id number] [address] [place] [address], [place] [address] 09 May, 2013 [facility] [address] [id number] [address] [place] [address], [place] [address] 08 May, 2013 [facility] [address] [id number] [address] [place] [address], [place] [address] Apr, [facility] [address] [id number] [address] [place] [address], [place] [address] Apr, [facility] [address] [id number] [address] [place] [address], [place] [address] Aug, [facility] [address] [facility] [place] [id number] [address] [place] [address] Jul, IMMUNIZATIONS No Known Immunizations SOCIAL HISTORY [...]
--- OUTSIDE RECORDS SUMMARY | 2020-02-27 15:41 | XMS REPORT ---
Author Author Beba CORBIN [facility] Address [address] [place] [address] Care Team Providers Care Functional Consultant Name Role Phone EMERALD EDWARD Unavailable PROBLEMS Type Condition ICD9-CM Code XLL18-UZ Code Onset Dates Condition S tatus SNOMED Code Problem Essential hypertension I10 Active 79632106 Problem Chronic constipation K59.00 Active 010101457 Problem Atrophy of left kidney N26.1 Active 755962120 Problem Vitamin D deficiency E55.9 Active 94193473 Problem Colon wall thickening K63.9 Active 352188924 Problem Chronic prescription opiate use Z79.899 Active 482002209 Problem Gastroesophageal reflux disease, esophagitis pre sence not specified K21.9 Active 711986474 Problem Hyperlipidemia, unspecified hyperlipidemia E78.5 Active 30750707 Problem Bladder wall thickening N32.89 Active 647593774 Problem Chronic pain syndrome G89.4 Active 951965040 Problem Asthma exacerbation J45.901 Active 113243176 Problem Severe episode of recurrent major depressive disorder, without psychotic features F33.2 Active 21313263 Problem Dependence on supplemental oxygen Z99.81 Active 208806516435 Problem Moderate persistent asthma with acute exacerbation J45.41 Active [id number] Problem Rheumatoid arthritis involvi ng multiple sites with positive rheumatoid factor M05.89 Active 156547414 Problem Chronic respiratory failure with hypoxia J96.11 Active 866296536 Problem Osteoporosis M81.0 Active 3443138 6 Problem Pernicious anemia D51.0 Active 84 337647 Problem Chronic kidney disease, stage 1 N18.1 Active 192003629 Problem Generalized anxiety disorder F41.1 A ctive 03176730 Problem Moderate persistent asthma without complication J4 5.40 Active 914171386 Problem Lumbago with sciatica, left side M54.42 Active 846390012 Problem Lumbago with sciatica, right side M54.41 Active [id number] ALLERGIES No Information ENCOUNTERS Encounter Location Date Diagnosis [facility] [address] [facility] [id number] [address] [place] [id number] Mar, Rheumatoid arthritis involvi ng multiple sites with positive rheumatoid factor M05.89 and Chronic constipation K59.00 [facility] [address] [facility] [id number] [address] [place] [address] Mar, [facility] [address] [place] [id number] [address] [place] [address] Mar, Dizziness R42 and Nausea and vomiting, intractability of vomiting not specified, unspecified vomiting type R11.2 [facility] [address] [facility] [id number] [address] [place] [id number] Feb, Chronic pain syndrome G89.[address] [address] January, Chronic pain syndrome G89.4 [facility] [address] [place] [id number] [address] [place] [address] Dec, [facility] [address] [place] [id number] [address] [place] [id number] Dec, [facility] [address] [place] [id number] [place] [address] Dec, Asthma exacerbation J45.901 ; Essential hypertension I10 ; Hyperlipidemia, unspecified hyperlipidemia E78.5 ; Rheumatoid arthritis involving multiple sites with positive rheumatoid factor M05.89 ; Chronic pain syndrome G89.4 ; Chronic kidney disease, stage 1 N18.1 ; Chronic respiratory failure with hypoxia J96.11 and Dependence on supplemental oxygen Z99.81 [facility] [address] [facility] [id number] [address] [place] [address] Dec, Chronic pain syndrome G89.4 [facility] [address] [place] [id number] [address] [place] [address] Nov, Chronic pain syndrome G89.4 [facility] [address] [place] [id number] [address] [place] [phone] Nov, [place] [address] [facility] [id number] [address] [place] [address] Oct, Chronic pain syndrome G89.4 [facility] [address] [facility] [id number] [address] [place] [id number] Oct, [facility] [address] [facility] [id number] [address] [place] [id number] Oct, Viral upper respiratory trac t infection J06.9 ; Chronic constipation K59.00 ; Severe episode of recurrent major depressive disorder, without psychotic features F33.2 ; Moderate persistent asthma with acute exacerbation J45.41 ; Essential hypertension I10 ; Gastroesophageal reflux disease, esophagitis presence not specified K21.9 and Hyperlipidemia, unspecified hyperlipidemia E78.5 [facility] [address] [facility] [id number] [address] [place] [id number] Oct, [place] [address] [place] [id number] [address] [place] [address] Sep, Chronic pain syndrome G89.4 [facility] [address] [address] Sep, Rheumatoid arthritis involvi ng multiple sites with positive rheumatoid factor M05.89 ; Chronic constipation K59.00 ; Gastroesophageal reflux disease, esophagitis presence not specified K21.9 ; Asthma exacerbation J45.901 ; Severe episode of recurrent major depressive disorder, without psychotic features F33.2 ; Ganglion cyst M67.40 and Chronic prescription opiate use Z79.899 [facility] [address] [place] [id number] [address] [place] [address] Aug, Cough R05 and Moderate persi stent asthma with acute exacerbation J45.41 [facility] [address] [place] [id number] [address] [place] [id number] Aug, Chronic pain syndrome G89.4 [facility] [address] [facility] [id number] [address] [place] [id number] Jul, Chronic pain syndrome G89.4 [facility] [address] [place] [id number] [address] [place] [id number] Jul, Acute nasopharyngitis J00 [facility] [address] [id number] [address] [place] [id number] Jun, [facility] [address] [id number] [address] [place] [address] Jun, Chronic pain syndrome G89.4 [facility] [address] [id number] [address] [place] [id number] 21 May, 2018 Chronic pain syndrome G89.4 [facility] [address] [id number] [address] [place] [id number] 14 May, 2018 [facility] [address] [id number] [address] [place] [address] May, [facility] [address] [facility] [id number] [address] [place] [address] May, Moderate persistent asthma w [facility] acute exacerbation J45.41 and Rheumatoid arthritis involving multiple sites with positive rheumatoid factor M05.89 [facility] [address] [id number] [address] [place] [id number] May, Moderate persistent asthma w [facility] acute exacerbation J45.41 and Hypoxia R09.02 [facility] [address] [id number] [address] [place] [id number] Apr, Chronic pain syndrome G89.4 [facility] [address] [facility] [id number] [address] [place] [id number] Mar, High ankle sprain of right l ower extremity, subsequent encounter S93.431D ; Lumbago with sciatica, left side M54.42 and Lumbago with sciatica, right side M54.41 [facility] [address] [id number] [address] [place] [id number] Mar, [facility] [address] [facility] [id number] [address] [place] [id number] Mar, Chronic pain syndrome G89.4 [facility] [address] [facility] [id number] [address] [place] [address] Mar, [place] [address] [facility] [id number] [address] [place] [address] Mar, Asthma exacerbation J45.901 and Sprain of right ankle, unspecified ligament, subsequent encounter S93.401D [facility] [address] [facility] [id number] [address] [place] [id number] 30 Feb, 2018 Injury of right ankle, initi al encounter S99.911A [place] [address] [facility] [id number] [address] [place] [address] Feb, Chronic pain syndrome G89.4 [place] [address] [place] [id number] [place] [address] Feb, Chronic pain syndrome G89.4 [place] [address] [address] Feb, Moderate persistent asthma w ith acute exacerbation J45.41 and Persistent cough for 3 weeks or longer R05 [place] [address] [place] [id number] [address] [place] [address] January, [place] [address] [place] [id number] [place] [address] January, Moderate persistent asthma w ith acute exacerbation J45.41 [place] [address] [place] [id number] [address] [place] [id number] January, Chronic pain syndrome G89.4 [place] [address] [facility] [id number] [address] [place] [address] January, Tachycardia R00.0 and Modera te persistent asthma with acute exacerbation J45.41 [place] [address] [facility] [id number] [address] [place] [address] January, Tachycardia R00.0 ; Moderate persistent asthma with acute exacerbation J45.41 ; Gastroesophageal reflux disease, esophagitis presence not specified K21.9 ; Hyperlipidemia, unspecified hyperlipidemia E78.5 and Chronic pain syndrome G89.4 [facility] [address] [place] [id number] [address] [place] [id number] Dec, Medicare annual wellness vis it, initial [...] immunization Z23 and Chronic pain syndrome G89.4 [place] [address] [place] [id number] [address] [place] [id number] 24 Dec, 2017 Chronic pain syndrome G89.4 [place] [address] [place] [id number] [address] [place] [phone] Dec, [place] [address] [place] [id number] [place] [address] Nov, [facility] [address] [place] [id number] [address] [place] [address] Nov, Chronic pain syndrome G89.4 [facility] [address] [place] [id number] [address] [place] [address] Oct, Chronic pain syndrome G89.4 [facility] [address] [place] [id number] [place] [id number] 08 Oct, 2017 Chronic kidney disease, stag e 1 N18.1 [facility] [address] [place] [id number] [address] [place] [address] 07 Oct, 2017 Chronic prescription opiate use Z79.899 ; Cough R05 ; Asthma exacerbation J45.901 ; Elevated liver enzymes R74.8 ; Rheumatoid arthritis involving multiple sites with positive rheumatoid factor M05.89 and Chronic pain syndrome G89.4 [facility] [address] [place] [id number] [address] [place] [phone] Sep, Chronic pain syndrome G89.4 [place] [address] [facility] [id number] [address] [place] [phone] Sep, [place] [address] [place] [id number] [address] [place] [address] Aug, Acute bronchitis, unspecifie d organism J20.9 [place] [address] [place] [id number] [place] [address] Aug, Chronic pain syndrome G89.4 [place] [address] [place] [id number] [address] [place] [address] Jul, Chronic pain syndrome G89.4 [place] [address] [address] Jun, Chronic pain syndrome G89.4 [place] [address] [address] May, Rheumatoid arthritis involvi ng multiple sites with positive rheumatoid factor M05.89 [place] [address] [address] May, Gastroesophageal reflux dise ase, esophagitis presence not specified K21.9 and Chronic pain syndrome G89.4 [place] [address] [place] [id number] [address] [place] [address] May, [place] [address] [address] May, Esophageal candidiasis B37.8 1 and Chronic kidney disease, stage 1 N18.1 [place] [address] [place] [id number] [address] [place] [id number] 11 May, 2017 Chronic kidney disease, stag e 1 N18.1 [place] [address] [place] [id number] [address] [place] [id number] 05 May, 2017 Cough R05 ; Fever, unspecifi ed fever cause R50.9 ; Rheumatoid arthritis involving multiple sites with positive rheumatoid factor M05.89 and Chronic prescription opiate use Z79.899 [place] [address] [place] [id number] [address] [place] [address] Apr, [facility] [address] [facility] [id number] [address] [place] [address] Apr, Cough R05 [facility] [address] [facility] [id number] [address] [place] [address] Apr, Asthma exacerbation J45.901 [place] [address] [facility] [id number] [address] [place] [address] Apr, [place] [address] [facility] [id number] [address] [place] [id number] Apr, Generalized anxiety disorder F41.1 and Severe episode of recurrent major depressive disorder, without psychotic features F33.2 [place] [address] [facility] [id number] [address] [place] [address] Mar, [place] [address] [facility] [id number] [address] [place] [phone] Feb, Chronic pain syndrome G89.4 [place] [address] [facility] [id number] [address] [place] [id number] Feb, Acute non-recurrent maxillar y sinusitis J01.00 [place] [address] [facility] [id number] [address] [place] [address] Feb, Acute non-recurrent frontal sinusitis J01.10 [place] [address] [facility] [id number] [address] [place] [address] Feb, Chronic pain syndrome G89.4 [place] [address] [facility] [id number] [address] [place] [id number] January, Acute cystitis with hematuri a N30.01 [place] [address] [facility] [id number] [address] [place] [address] January, Acute cystitis with hematuri a N30.01 ; Dysuria R30.0 and Moderate persistent asthma with acute exacerbation J45.41 [place] [address] [place] [id number] [address] [place] [address] January, [facility] [id number] [place] [address] January, Chronic pain syndrome G89.4 [facility] [address] [place] [id number] [address] [place] [address] January, Asthma exacerbation J45.901 [facility] [address] [address] January, Asthma exacerbation J45.901 [place] [address] [address] Dec, Cough R05 ; Numbness in both hands R20.0 ; Ground glass opacity present on imaging of lung R91.8 ; Hypoxia R09.02 and Asthma exacerbation J45.901 [place] [address] [address] Dec, Chronic pain syndrome G89.4 [place] [address] [address] Nov, Chronic prescription opiate use Z79.899 ; Rheumatoid arthritis involving multiple sites with positive rheumatoid factor M05.89 ; Moderate persistent asthma with acute exacerbation J45.41 ; Pneumonia of right lower lobe due to infectious organism J18.1 ; Chronic pain syndrome G89.4 ; Gastroesophageal reflux disease, esophagitis presence not specified K21.9 and Hyperlipidemia, unspecified hyperlipidemia E78.5 [place] [address] [place] [address] Nov, Rheumatoid arthritis involvi ng multiple sites with positive rheumatoid factor M05.89 [place] [address] [address] Oct, [place] [address] [address] Oct, Essential hypertension I10 [place] [address] [address] Sep, Hypoxia R09.02 and Ground gl ass opacity present on imaging of lung R91.8 [facility] [address] [id number] [address] [place] [address] 09 Sep, 2016 Moderate persistent asthma w ith acute exacerbation J45.41 [facility] [id number] [place] [id number] Sep, [facility] [address] [id number] [address] [place] [address] Sep, Chronic constipation K59.00 and Moderate persistent asthma with acute exacerbation J45.41 [place] [address] [id number] [address] [place] [address] Sep, Moderate persistent asthma w ith acute exacerbation J45.41 [facility] [address] [id number] [address] [place] [address] 30 Aug, 2016 [facility] [address] [id number] [address] [place] [address] Aug, [facility] [address] [id number] [address] [place] [address] Aug, [facility] [address] [facility] [id number] [address] [place] [address] Aug, Rheumatoid arthritis involvi multiple sites with positive rheumatoid factor M05.89 ; Essential hypertension I10 ; Hyperlipidemia, unspecified hyperlipidemia E78.5 ; Chronic constipation K59.00 and Moderate persistent asthma with acute exacerbation J45.41 [facility] [address] [id number] [address] [place] [phone] Aug, Bronchitis J40 [facility] [address] [id number] [address] [place] [address] Aug, Rheumatoid arthritis involvi ng multiple sites with positive rheumatoid factor M05.89 [facility] [address] [id number] [address] [place] [address] Aug, Pharyngitis, unspecified pablito ology J02.9 and Acute nasopharyngitis J00 [facility] [address] [facility] [id number] [address] [place] [address] Aug, [facility] [address] [facility] [id number] [place] [address] Jul, [facility] [address] [place] [id number] [place] [address] Jul, Rheumatoid arthritis involvi ng multiple sites with positive rheumatoid factor M05.89 ; Essential hypertension I10 ; Hyperlipidemia, unspecified hyperlipidemia E78.5 ; Rash R21 ; Mild persistent asthma with acute exacerbation J45.31 ; Hematuria R31.9 ; Osteoporosis M81.0 and Gastroesophageal reflux disease, esophagitis presence not specified K21.9 [facility] [address] [place] [id number] [place] [address] 18 Jun, 2016 [facility] [address] [address] Jun, Dysuria R30.0 [facility] [address] [facility] [id number] [address] [place] [id number] 05 Jun, 2016 Acute non-recurrent maxillar y sinusitis J01.00 and Dysuria R30.0 [facility] [address] [place] [id number] [place] [address] 16 May, 2016 [facility] [address] [address] May, [facility] [address] [address] Apr, Chronic prescription opiate use Z79.899 and Rheumatoid arthritis involving multiple sites with positive rheumatoid factor M05.89 [facility] [address] [place] [id number] [place] [address] Mar, [facility] [address] [place] [id number] [place] [address] Feb, Dizziness of unknown cause R 42 and Other chronic pain G89.29 [place] [address] [facility] [id number] [address] [place] [address] Feb, [facility] [address] [facility] [id number] [address] [place] [address] Feb, Shortness of breath R06.02 [facility] [address] [facility] [id number] [address] [place] [address] January, [facility] [address] [place] [id number] [place] [address] January, Rheumatoid arthritis involvi ng multiple sites with positive rheumatoid factor M05.89 ; Chronic prescription opiate use Z79.899 ; Hyperlipidemia, unspecified hyperlipidemia E78.5 ; Cough R05 ; Exposure to pneumonia Z20.828 ; Diarrhea, unspecified type R19.7 ; Weight loss R63.4 ; Lumbago with sciatica, right side M54.41 and Lumbago with sciatica, left side M54.42 [place] [address] [facility] [id number] [address] [place] [address] Dec, [facility] [address] [facility] [id number] [address] [place] [address] Dec, Bronchitis J40 [facility] [address] [facility] [id number] [address] [place] [address] Nov, [place] [address] [facility] [id number] [address] [place] [phone] Nov, [facility] [address] [facility] [id number] [address] [place] [address] Nov, [facility] [address] [facility] [id number] [address] [place] [address] Nov, Bloody diarrhea R19.7 ; Rudd n wall thickening K63.9 ; Shortness of breath R06.02 and Bladder wall thickening N32.89 [facility] [address] [id number] [address] [place] [id number] Oct, Dental examination Z01.20 [facility] [address] [place] [id number] [place] [address] 15 Oct, 2015 [facility] [address] [facility] [id number] [address] [place] [id number] 15 Oct, 2015 Toothache K08.8 [facility] [address] [id number] [address] [place] [id number] 11 Oct, 2015 Dental examination Z01.20 [facility] [address] [facility] [id number] [address] [place] [id number] 02 Oct, 2015 [facility] [address] [facility] [id number] [address] [place] [address] Sep, [facility] [address] [facility] [id number] [address] [place] [address] Sep, Burning with urination R30.0 [facility] [address] [facility] [id number] [address] [place] [address] Sep, Hematuria R31.9 ; Rheumatoid arthritis involving multiple sites with positive rheumatoid factor M05.89 and Rheumatoid arthritis flare M06.9 [facility] [address] [facility] [id number] [address] [place] [address] Aug, Hyperlipidemia, unspecified hyperlipidemia E78.5 and Hematuria R31.9 [facility] [address] [facility] [id number] [address] [place] [address] Aug, Hematuria R31.9 ; Chronic ki dney disease, stage 1 N18.1 and Hyperlipidemia, unspecified hyperlipidemia E78.5 [facility] [address] [facility] [id number] [address] [place] [address] Aug, Rheumatoid arthritis involvi ng multiple sites with positive rheumatoid factor M05.89 ; Asthma exacerbation J45.901 ; Hematuria R31.9 ; Hyperlipidemia, unspecified hyperlipidemia E78.5 and Chronic kidney disease, stage 1 N18.1 [facility] [address] [facility] [id number] [address] [place] [address] Aug, [facility] [address] [id number] [address] [place] [id number] Jul, [facility] [address] [id number] [address] [place] [address] Jul, Lumbosacral radiculopathy M5 4.17 [facility] [address] [id number] [address] [place] [id number] Jul, [facility] [address] [facility] [id number] [address] [place] [address] Jun, Rheumatoid arthritis involvi ng multiple sites with positive rheumatoid factor M05.89 ; Hyperlipidemia, unspecified hyperlipidemia E78.5 ; Lumbosacral radiculopathy M54.17 ; Carpal tunnel syndrome, right upper limb G56.01 and Carpal tunnel syndrome, left upper limb G56.02 [facility] [address] [facility] [id number] [address] [place] [id number] Jun, [facility] [address] [facility] [id number] [address] [place] [phone] May, Lumbar radicular pain 724.4 and Dysuria 788.1 [facility] [address] [facility] [id number] [address] [place] [id number] May, Rheumatoid arthritis 714.0 ; Lumbar radicular pain 724.4 ; Burn 949.0 and Thoracic back pain 724.1 [facility] [address] [facility] [id number] [address] [place] [id number] May, [facility] [address] [facility] [id number] [address] [place] [phone] May, [facility] [address] [facility] [id number] [address] [place] [id number] Apr, [facility] [address] [facility] [id number] [address] [place] [id number] Mar, Hyperlipidemia 272.4 [facility] [address] [facility] [id number] [address] [place] [id number] Mar, [facility] [address] [id number] [address] [place] [id number] Mar, [facility] [address] [id number] [address] [place] [id number] Mar, Diarrhea 787.91 ; Chronic ki dney disease, unspecified 585.9 ; Hyperlipidemia 272.4 and Asthma 493.90 [facility] [address] [id number] [address] [place] [id number] Mar, [facility] [address] [id number] [address] [place] [id number] Mar, Gastroenteritis 558.9 [facility] [address] [id number] [address] [place] [id number] Feb, [facility] [address] [facility] [id number] [address] [place] [phone] January, [facility] [address] [id number] [address] [place] [phone] January, [facility] [address] [id number] [address] [place] [phone] Dec, [facility] [address] [id number] [address] [place] [phone] Dec, [facility] [address] [id number] [address] [place] [phone] Nov, [facility] [address] [id number] [address] [place] [phone] Nov, [facility] [address] [id number] [address] [place] [id number] Nov, [facility] [address] [id number] [address] [place] [phone] Nov, [facility] [address] [id number] [address] [place] [phone] Nov, [facility] [address] [id number] [address] [place] [phone] Nov, [facility] [address] [id number] [address] [place] [address], [place] [address] Oct, [facility] [address] [id number] [address] [place] [address], [place] [address] Oct, [facility] [address] [id number] [address] [place] [address], [place] [address] Sep, [facility] [address] [id number] [address] [place] [address], [place] [address] Sep, [facility] [address] [id number] [address] [place] [address], [place] [address] Sep, [facility] [address] [id number] [address] [place] [address], [place] [address] Sep, [facility] [address] [id number] [address] [place] [address], [place] [address] Sep, [facility] [address] [id number] [address] [place] [address], [place] [address] Sep, [facility] [address] [id number] [address] [place] [address], [place] [address] Aug, [facility] [address] [id number] [address] [place] [address], [place] [address] Aug, [facility] [address] [id number] [address] [place] [address], [place] [address] Aug, [facility] [address] [id number] [address] [place] [address], [place] [address] Aug, [facility] [address] [id number] [address] [place] [address], [place] [address] Jul, [facility] [address] [id number] [address] [place] [address], [place] [address] Jul, [facility] [address] [id number] [address] [place] [address], [place] [address] Jul, [facility] [address] [id number] [address] [place] [address], [place] [address] Jul, [facility] [address] [id number] [address] [place] [address], [place] [address] Jul, [facility] [address] [id number] [address] [place] [address], [place] [address] Jul, [facility] [address] [id number] [address] [place] [address], [place] [address] Jul, [facility] [address] [id number] [address] [place] [address], [place] [address] Jul, [facility] [address] [id number] [address] [place] [address], [place] [address] Jul, [facility] [address] [id number] [address] [place] [address], [place] [address] Jun, [facility] [address] [id number] [address] [place] [address], [place] [address] 15 Jun, 2014 [facility] [address] [id number] [address] [place] [address], [place] [address] 15 Jun, 2014 [facility] [address] [id number] [address] [place] [address], [place] [address] 25 May, 2014 [facility] [address] [id number] [address] [place] [address], [place] [address] 25 May, 2014 [facility] [address] [id number] [address] [place] [address], [place] [address] 24 May, 2013 [facility] [address] [id number] [address] [place] [address], [place] [address] 24 May, 2013 [facility] [address] [id number] [address] [place] [address], [place] [address] 24 May, 2013 [facility] [address] [id number] [address] [place] [address], [place] [address] 24 May, 2013 [facility] [address] [id number] [address] [place] [address], [place] [address] May, [facility] [address] [id number] [address] [place] [phone] May, [facility] [address] [id number] [address] [place] [phone] May, [facility] [address] [id number] [address] [place] [phone] May, [facility] [address] [id number] [address] [place] [phone] May, [facility] [address] [id number] [address] [place] [phone] May, [facility] [address] [id number] [address] [place] [id number] May, [facility] [address] [id number] [address] [place] [id number] May, [facility] [address] [id number] [address] [place] [phone] May, [facility] [address] [id number] [address] [place] [phone] May, [facility] [address] [id number] [address] [place] [phone] Apr, [facility] [address] [id number] [address] [place] [phone] Apr, [facility] [address] [id number] [address] [place] [phone] Aug, [facility] [address] [id number] [address] [place] [id number] Jul, IMMUNIZATIONS No Known Immunizations SOCIAL HISTORY Never Assessed REASON FOR VISIT PLAN OF CARE VITAL SIGNS Height 66 in 2014-08-09 Weight 148 lbs 2014-08-09 Temperature 97.5 degrees Fahrenheit 2014-08-09 Heart Rate 94 bpm 2014-08-09 Respiratory Rate 22 2014-08-09 Blood pressure systolic 158 mmHg 2014-08-09 Blood pressure diastolic 93 mmHg 2014-08-09 MEDICATIONS No Known Medications RESULTS No Results PROCEDURES Procedure Date Ordered Result Body Site THER/PROPH/DIAG INJ, SC/IM Aug 09, 2014 INJ VIT B-12 CYNOCOBLMN TO 1000 MCG Aug 09, 2014 MEASURE BLOOD OXYGEN LEVEL Aug 09, 2014 URINE CULTURE/COLONY COUNT Aug 09, 2014 URINALYSIS, AUTO, W/O SCOPE Aug 09, 2014 INSTRUCTIONS MEDICATIONS ADMINISTERED No Known Medications [...]
--- OUTSIDE RECORDS SUMMARY | 2020-02-27 15:42 | XMS REPORT ---
Author Author Beba CORBIN [facility] Address [address] [place] [address] Care Team Providers Care Word Processor Operator Name Role Phone EMERALD EDWARD Unavailable PROBLEMS Type Condition ICD9-CM Code CHE87-XH Code Onset Dates Condition S tatus SNOMED Code Problem Essential hypertension I10 Active 83830925 Problem Chronic constipation K59.00 Active 686208939 Problem Atrophy of left kidney N26.1 Active 216540959 Problem Vitamin D deficiency E55.9 Active 80536978 Problem Colon wall thickening K63.9 Active 801978632 Problem Chronic prescription opiate use Z79.899 Active 267557096 Problem Gastroesophageal reflux disease, esophagitis pre sence not specified K21.9 Active 993697789 Problem Hyperlipidemia, unspecified hyperlipidemia E78.5 Active 29900353 Problem Bladder wall thickening N32.89 Active 393426627 Problem Chronic pain syndrome G89.4 Active 785703457 Problem Asthma exacerbation J45.901 Active 852710776 Problem Severe episode of recurrent major depressive disorder, without psychotic features F33.2 Active 63502806 Problem Dependence on supplemental oxygen Z99.81 Active 474800673388 Problem Moderate persistent asthma with acute exacerbation J45.41 Active [id number] Problem Rheumatoid arthritis involvi ng multiple sites with positive rheumatoid factor M05.89 Active 287613293 Problem Chronic respiratory failure with hypoxia J96.11 Active 818416939 Problem Osteoporosis M81.0 Active 4752818 6 Problem Pernicious anemia D51.0 Active 84 771376 Problem Chronic kidney disease, stage 1 N18.1 Active 760561278 Problem Generalized anxiety disorder F41.1 A ctive 98761371 Problem Moderate persistent asthma without complication J4 5.40 Active 715886544 Problem Lumbago with sciatica, left side M54.42 Active 320974314 Problem Lumbago with sciatica, right side M54.41 Active [id number] ALLERGIES No Information ENCOUNTERS Encounter Location Date Diagnosis [facility] [address] [facility] [id number] [address] [place] [id number] Mar, Dizziness R42 and Nausea and vomiting, intractability of vomiting not specified, unspecified vomiting type R11.2 [facility] [address] [facility] [id number] [address] [place] [id number] Feb, Chronic pain syndrome G89.[address] [address] January, Chronic pain syndrome G89.4 [facility] [address] [facility] [id number] [address] [place] [id number] Dec, [facility] [address] [facility] [id number] [address] [place] [id number] Dec, [facility] [address] [place] [id number] [address] [place] [id number] Dec, Asthma exacerbation J45.901 ; Essential hypertension I10 ; Hyperlipidemia, unspecified hyperlipidemia E78.5 ; Rheumatoid arthritis involving multiple sites with positive rheumatoid factor M05.89 ; Chronic pain syndrome G89.4 ; Chronic kidney disease, stage 1 N18.1 ; Chronic respiratory failure with hypoxia J96.11 and Dependence on supplemental oxygen Z99.81 [facility] [address] [facility] [id number] [address] [place] [id number] Dec, Chronic pain syndrome G89.4 [facility] [address] [facility] [id number] [address] [place] [id number] Nov, Chronic pain syndrome G89.4 [facility] [address] [facility] [id number] [address] [place] [id number] Nov, [facility] [address] [place] [id number] [address] [place] [id number] 15 Oct, 2018 Chronic pain syndrome G89.4 [facility] [address] [facility] [id number] [address] [place] [phone] Oct, [facility] [address] [place] [id number] [address] [place] [id number] 11 Oct, 2018 Viral upper respiratory trac t infection J06.9 ; Chronic constipation K59.00 ; Severe episode of recurrent major depressive disorder, without psychotic features F33.2 ; Moderate persistent asthma with acute exacerbation J45.41 ; Essential hypertension I10 ; Gastroesophageal reflux disease, esophagitis presence not specified K21.9 and Hyperlipidemia, unspecified hyperlipidemia E78.5 [place] [id number] [address] 05 Oct, 2018 [place] [address] [address] Sep, Chronic pain syndrome G89.4 [place] [address] [address] Sep, Rheumatoid arthritis involvi ng multiple sites with positive rheumatoid factor M05.89 ; Chronic constipation K59.00 ; Gastroesophageal reflux disease, esophagitis presence not specified K21.9 ; Asthma exacerbation J45.901 ; Severe episode of recurrent major depressive disorder, without psychotic features F33.2 ; Ganglion cyst M67.40 and Chronic prescription opiate use Z79.899 [facility] [address] [address] Aug, Cough R05 and Moderate persi stent asthma with acute exacerbation J45.41 [facility] [address] [address] Aug, Chronic pain syndrome G89.4 [facility] [address] [place] [id number] [place] [id number] Jul, Chronic pain syndrome G89.4 [facility] [address] [address] Jul, Acute nasopharyngitis J00 [facility] [address] [place] [id number] [place] [id number] Jun, [facility] [address] [address] Jun, Chronic pain syndrome G89.4 [facility] [address] [id number] [address] [place] [id number] 21 May, 2018 Chronic pain syndrome G89.4 [facility] [address] [id number] [address] [place] [id number] 14 May, 2018 [facility] [address] [id number] [address] [place] [phone] May, [facility] [address] [id number] [address] [place] [phone] May, Moderate persistent asthma w ith acute exacerbation J45.41 and Rheumatoid arthritis involving multiple sites with positive rheumatoid factor M05.89 [place] [address] [id number] [address] [place] [phone] May, Moderate persistent asthma w ith acute exacerbation J45.41 and Hypoxia R09.02 [facility] [address] [facility] [id number] [address] [place] [id number] Apr, Chronic pain syndrome G89.4 [facility] [address] [facility] [id number] [address] [place] [id number] Mar, High ankle sprain of right l ower extremity, subsequent encounter S93.431D ; Lumbago with sciatica, left side M54.42 and Lumbago with sciatica, right side M54.41 [facility] [address] [facility] [id number] [address] [place] [id number] Mar, [facility] [address] [id number] [address] [place] [id number] Mar, Chronic pain syndrome G89.4 [facility] [address] [facility] [id number] [address] [place] [id number] Mar, [facility] [address] [facility] [id number] [address] [place] [address] Mar, Asthma exacerbation J45.901 and Sprain of right ankle, unspecified ligament, subsequent encounter S93.401D [facility] [address] [place] [id number] [address] [place] [id number] 30 Feb, 2018 Injury of right ankle, initi al encounter S99.911A [facility] [address] [place] [id number] [address] [place] [id number] Feb, Chronic pain syndrome G89.4 [facility] [address] [address] Feb, Chronic pain syndrome G89.4 [facility] [address] [place] [id number] [place] [id number] Feb, Moderate persistent asthma w ith acute exacerbation J45.41 and Persistent cough for 3 weeks or longer R05 [facility] [address] [place] [id number] [place] [phone] January, [place] [address] [address] January, Moderate persistent asthma w ith acute exacerbation J45.41 [place] [address] [address] January, Chronic pain syndrome G89.4 [facility] [address] [address] January, Tachycardia R00.0 and Modera te persistent asthma with acute exacerbation J45.41 [place] [address] [address] January, Tachycardia R00.0 ; Moderate persistent asthma with acute exacerbation J45.41 ; Gastroesophageal reflux disease, esophagitis presence not specified K21.9 ; Hyperlipidemia, unspecified hyperlipidemia E78.5 and Chronic pain syndrome G89.4 [facility] [address] [place] [id number] [address] [place] [phone] Dec, Medicare annual wellness vis it, initial [...] immunization Z23 and Chronic pain syndrome G89.4 [facility] [address] [address] Dec, Chronic pain syndrome G89.4 [place] [address] [address] Dec, [place] [address] [address] Nov, [place] [address] [address] Nov, Chronic pain syndrome G89.4 [place] [address] [address] Oct, Chronic pain syndrome G89.4 [place] [address] [address] Oct, Chronic kidney disease, stag e 1 N18.1 [place] [address] [address] 07 Oct, 2017 Chronic prescription opiate use Z79.899 ; Cough R05 ; Asthma exacerbation J45.901 ; Elevated liver enzymes R74.8 ; Rheumatoid arthritis involving multiple sites with positive rheumatoid factor M05.89 and Chronic pain syndrome G89.4 [place] [address] [address] Sep, Chronic pain syndrome G89.4 [place] [address] [address] Sep, [place] [address] [address] Aug, Acute bronchitis, unspecifie d organism J20.9 [place] [address] [place] [id number] [address] [place] [phone] Aug, Chronic pain syndrome G89.4 [facility] [address] [address] Jul, Chronic pain syndrome G89.4 [facility] [address] [address] Jun, Chronic pain syndrome G89.4 [facility] [address] [address] 29 May, 2017 Rheumatoid arthritis involvi ng multiple sites with positive rheumatoid factor M05.89 [place] [address] [address] 26 May, 2017 Gastroesophageal reflux dise ase, esophagitis presence not specified K21.9 and Chronic pain syndrome G89.4 [place] [address] [address] May, [place] [address] [address] May, Esophageal candidiasis B37.8 1 and Chronic kidney disease, stage 1 N18.1 [place] [address] [address] 11 May, 2017 Chronic kidney disease, stag e 1 N18.1 [place] [address] [address] 05 May, 2017 Cough R05 ; Fever, unspecifi ed fever cause R50.9 ; Rheumatoid arthritis involving multiple sites with positive rheumatoid factor M05.89 and Chronic prescription opiate use Z79.899 [place] [address] [address] Apr, [place] [address] [address] Apr, Cough R05 [place] [address] [address] Apr, Asthma exacerbation J45.901 [facility] [address] [facility] [id number] [address] [place] [id number] Apr, [facility] [address] [facility] [id number] [address] [place] [id number] Apr, Generalized anxiety disorder F41.1 and Severe episode of recurrent major depressive disorder, without psychotic features F33.2 [facility] [address] [place] [id number] [address] [place] [id number] Mar, [facility] [address] [facility] [id number] [address] [place] [address] Feb, Chronic pain syndrome G89.4 [place] [address] [place] [id number] [address] [place] [phone] Feb, Acute non-recurrent maxillar y sinusitis J01.00 [place] [address] [place] [id number] [address] [place] [phone] Feb, Acute non-recurrent frontal sinusitis J01.10 [place] [address] [facility] [id number] [address] [place] [address] Feb, Chronic pain syndrome G89.4 [place] [address] [place] [id number] [address] [place] [address] January, Acute cystitis with hematuri a N30.01 [place] [address] [place] [id number] [address] [place] [address] January, Acute cystitis with hematuri a N30.01 ; Dysuria R30.0 and Moderate persistent asthma with acute exacerbation J45.41 [place] [address] [facility] [id number] [address] [place] [address] January, [place] [address] [place] [id number] [address] [place] [address] January, Chronic pain syndrome G89.4 [place] [address] [place] [id number] [address] [place] [address] January, Asthma exacerbation J45.901 [place] [address] [address] January, Asthma exacerbation J45.901 [place] [address] [address] Dec, Cough R05 ; Numbness in both hands R20.0 ; Ground glass opacity present on imaging of lung R91.8 ; Hypoxia R09.02 and Asthma exacerbation J45.901 [place] [address] [address] Dec, Chronic pain syndrome G89.4 [place] [address] [address] Nov, Chronic prescription opiate use Z79.899 ; Rheumatoid arthritis involving multiple sites with positive rheumatoid factor M05.89 ; Moderate persistent asthma with acute exacerbation J45.41 ; Pneumonia of right lower lobe due to infectious organism J18.1 ; Chronic pain syndrome G89.4 ; Gastroesophageal reflux disease, esophagitis presence not specified K21.9 and Hyperlipidemia, unspecified hyperlipidemia E78.5 [place] [address] [address] Nov, Rheumatoid arthritis involvi ng multiple sites with positive rheumatoid factor M05.89 [place] [address] [address] Oct, [place] [address] [address] Oct, Essential hypertension I10 [place] [address] [address] Sep, Hypoxia R09.02 and Ground gl ass opacity present on imaging of lung R91.8 [place] [address] [place] [id number] [address] [place] [address] Sep, Moderate persistent asthma w ith acute exacerbation J45.41 [facility] [address] [place] [id number] Sep, [facility] [address] [id number] [address] [place] [id number] Sep, Chronic constipation K59.00 and Moderate persistent asthma with acute exacerbation J45.41 [facility] [address] [id number] [address] [place] [phone] Sep, Moderate persistent asthma w ith acute exacerbation J45.41 [facility] [address] [id number] [address] [place] [id number] Aug, [facility] [address] [id number] [address] [place] [id number] Aug, [facility] [address] [facility] [id number] [address] [place] [phone] Aug, [facility] [address] [facility] [id number] [address] [place] [id number] Aug, Rheumatoid arthritis involvi ng multiple sites with positive rheumatoid factor M05.89 ; Essential hypertension I10 ; Hyperlipidemia, unspecified hyperlipidemia E78.5 ; Chronic constipation K59.00 and Moderate persistent asthma with acute exacerbation J45.41 [facility] [address] [facility] [id number] [address] [place] [id number] Aug, Bronchitis J40 [facility] [address] [facility] [id number] [address] [place] [id number] Aug, Rheumatoid arthritis involvi ng multiple sites with positive rheumatoid factor M05.89 [facility] [address] [id number] [address] [place] [id number] Aug, Pharyngitis, unspecified pablito ology J02.9 and Acute nasopharyngitis J00 [facility] [address] [facility] [id number] [address] [place] [id number] Aug, [facility] [address] [facility] [id number] [address] [place] [address] Jul, [facility] [address] [address] Jul, Rheumatoid arthritis involvi ng multiple sites with positive rheumatoid factor M05.89 ; Essential hypertension I10 ; Hyperlipidemia, unspecified hyperlipidemia E78.5 ; Rash R21 ; Mild persistent asthma with acute exacerbation J45.31 ; Hematuria R31.9 ; Osteoporosis M81.0 and Gastroesophageal reflux disease, esophagitis presence not specified K21.9 [facility] [address] [place] [address] Jun, [facility] [address] [place] [id number] [place] [address] Jun, Dysuria R30.0 [facility] [address] [place] [id number] [place] [address] Jun, Acute non-recurrent maxillar y sinusitis J01.00 and Dysuria R30.0 [facility] [address] [address] May, [facility] [address] [address] May, [facility] [address] [address] Apr, Chronic prescription opiate use Z79.899 and Rheumatoid arthritis involving multiple sites with positive rheumatoid factor M05.89 [facility] [address] [address] Mar, [facility] [address] [address] Feb, Dizziness of unknown cause R 42 and Other chronic pain G89.29 [place] [address] [address] Feb, [place] [address] [address] Feb, Shortness of breath R06.02 [facility] [address] [address] January, [facility] [address] [place] [id number] [address] [place] [address] January, Rheumatoid arthritis involvi ng multiple sites with positive rheumatoid factor M05.89 ; Chronic prescription opiate use Z79.899 ; Hyperlipidemia, unspecified hyperlipidemia E78.5 ; Cough R05 ; Exposure to pneumonia Z20.828 ; Diarrhea, unspecified type R19.7 ; Weight loss R63.4 ; Lumbago with sciatica, right side M54.41 and Lumbago with sciatica, left side M54.42 [facility] [address] [address] Dec, [facility] [address] [place] [id number] [place] [address] Dec, Bronchitis J40 [facility] [address] [address] Nov, [facility] [address] [place] [id number] [address] [place] [address] Nov, [facility] [address] [address] Nov, [facility] [address] [place] [id number] [address] [place] [id number] Nov, Bloody diarrhea R19.7 ; Bruce n wall thickening K63.9 ; Shortness of breath R06.02 and Bladder wall thickening N32.89 [facility] [address] [place] [id number] [address] [place] [id number] Oct, Dental examination Z01.20 [facility] [address] [place] [id number] [address] [place] [id number] Oct, [facility] [address] [place] [id number] [address] [place] [address] Oct, Toothache K08.8 [facility] [address] [place] [id number] [place] [id number] 11 Oct, 2015 Dental examination Z01.20 [place] [address] [facility] [id number] [address] [place] [id number] 02 Oct, 2015 [place] [address] [facility] [id number] [address] [place] [address] Sep, [place] [address] [place] [id number] [address] [place] [id number] Sep, Burning with urination R30.0 [place] [address] [facility] [id number] [address] [place] [address] Sep, Hematuria R31.9 ; Rheumatoid arthritis involving multiple sites with positive rheumatoid factor M05.89 and Rheumatoid arthritis flare M06.9 [place] [address] [place] [id number] [place] [address] Aug, Hyperlipidemia, unspecified hyperlipidemia E78.5 and Hematuria R31.9 [place] [address] [place] [address] Aug, Hematuria R31.9 ; Chronic ki dney disease, stage 1 N18.1 and Hyperlipidemia, unspecified hyperlipidemia E78.5 [place] [address] [place] [id number] [address] [place] [address] Aug, Rheumatoid arthritis involvi ng multiple sites with positive rheumatoid factor M05.89 ; Asthma exacerbation J45.901 ; Hematuria R31.9 ; Hyperlipidemia, unspecified hyperlipidemia E78.5 and Chronic kidney disease, stage 1 N18.1 [place] [address] [facility] [id number] [address] [place] [id number] Aug, [place] [address] [place] [id number] [address] [place] [address] Jul, [place] [address] [place] [id number] [place] [address] Jul, Lumbosacral radiculopathy M5 4.17 [place] [address] [place] [id number] [address] [place] [address] Jul, [facility] [address] [id number] [address] [place] [address] Jun, Rheumatoid arthritis involvi ng multiple sites with positive rheumatoid factor M05.89 ; Hyperlipidemia, unspecified hyperlipidemia E78.5 ; Lumbosacral radiculopathy M54.17 ; Carpal tunnel syndrome, right upper limb G56.01 and Carpal tunnel syndrome, left upper limb G56.02 [facility] [address] [id number] [address] [place] [id number] Jun, [facility] [address] [id number] [address] [place] [phone] May, Lumbar radicular pain 724.4 and Dysuria 788.1 [facility] [address] [facility] [id number] [address] [place] [address] May, Rheumatoid arthritis 714.0 ; Lumbar radicular pain 724.4 ; Burn 949.0 and Thoracic back pain 724.1 [facility] [address] [facility] [id number] [address] [place] [id number] May, [facility] [address] [id number] [address] [place] [id number] May, [facility] [address] [facility] [id number] [address] [place] [id number] Apr, [facility] [address] [id number] [address] [place] [id number] Mar, Hyperlipidemia 272.4 [facility] [address] [facility] [id number] [address] [place] [id number] Mar, [facility] [address] [id number] [address] [place] [id number] Mar, [facility] [address] [facility] [id number] [address] [place] [id number] Mar, Diarrhea 787.91 ; Chronic ki dney disease, unspecified 585.9 ; Hyperlipidemia 272.4 and Asthma 493.90 [facility] [address] [id number] [address] [place] [address], [place] [address] Mar, [facility] [address] [id number] [address] [place] [id number] Mar, Gastroenteritis 558.9 [facility] [address] [id number] [address] [place] [address], [place] [address] Feb, [facility] [address] [id number] [address] [place] [phone] January, [facility] [address] [id number] [address] [place] [address], [place] [address] January, [facility] [address] [id number] [address] [place] [phone] Dec, [facility] [address] [id number] [address] [place] [id number] Dec, [facility] [address] [id number] [address] [place] [phone] Nov, [facility] [address] [id number] [address] [place] [phone] Nov, [facility] [address] [id number] [address] [place] [phone] Nov, [facility] [address] [id number] [address] [place] [phone] Nov, [facility] [address] [id number] [address] [place] [id number] Nov, [facility] [address] [id number] [address] [place] [phone] Nov, [facility] [address] [id number] [address] [place] [phone] Oct, [facility] [address] [id number] [address] [place] [phone] Oct, [facility] [address] [id number] [address] [place] [address], [place] [address] Sep, [facility] [address] [id number] [address] [place] [address], [place] [address] Sep, [facility] [address] [id number] [address] [place] [address], [place] [address] Sep, [facility] [address] [id number] [address] [place] [address], [place] [address] Sep, [facility] [address] [id number] [address] [place] [address], [place] [address] Sep, [facility] [address] [id number] [address] [place] [address], [place] [address] Sep, [facility] [address] [id number] [address] [place] [address], [place] [address] Aug, [facility] [address] [id number] [address] [place] [address], [place] [address] Aug, [facility] [address] [id number] [address] [place] [address], [place] [address] Aug, [facility] [address] [id number] [address] [place] [address], [place] [address] Aug, [facility] [address] [id number] [address] [place] [address], [place] [address] Jul, [facility] [address] [id number] [address] [place] [address], [place] [address] Jul, [facility] [address] [id number] [address] [place] [address], [place] [address] Jul, [facility] [address] [id number] [address] [place] [address], [place] [address] Jul, [facility] [address] [id number] [address] [place] [address], [place] [address] Jul, [facility] [address] [id number] [address] [place] [address], [place] [address] Jul, [facility] [address] [id number] [address] [place] [address], [place] [address] Jul, [facility] [address] [id number] [address] [place] [address], [place] [address] Jul, [facility] [address] [id number] [address] [place] [address], [place] [address] Jul, [facility] [address] [id number] [address] [place] [address], [place] [address] Jun, [facility] [address] [id number] [address] [place] [address], [place] [address] Jun, [facility] [address] [id number] [address] [place] [address], [place] [address] 15 Jun, 2014 [facility] [address] [id number] [address] [place] [address], [place] [address] 25 May, 2014 [facility] [address] [id number] [address] [place] [address], [place] [address] 25 May, 2013 [facility] [address] [id number] [address] [place] [address], [place] [address] 24 May, 2013 [facility] [address] [id number] [address] [place] [address], [place] [address] 24 May, 2013 [facility] [address] [id number] [address] [place] [address], [place] [address] 24 Sep, 2013 [facility] [address] [id number] [address] [place] [address], [place] [address] 24 Sep, 2013 [facility] [address] [id number] [address] [place] [address], [place] [address] 19 May, 2013 [facility] [address] [id number] [address] [place] [address], [place] [address] 19 Sep, 2013 [facility] [address] [id number] [address] [place] [address], [place] [address] 11 May, 2013 [facility] [address] [id number] [address] [place] [phone] 11 May, 2014 [facility] [address] [id number] [address] [place] [phone] May, [facility] [address] [id number] [address] [place] [phone] May, [facility] [address] [id number] [address] [place] [phone] May, [facility] [address] [id number] [address] [place] [phone] May, [facility] [address] [id number] [address] [place] [phone] May, [facility] [address] [id number] [address] [place] [phone] May, [facility] [address] [id number] [address] [place] [phone] Apr, [facility] [address] [id number] [address] [place] [phone] Apr, [facility] [address] [id number] [address] [place] [phone] Aug, [facility] [address] [id number] [address] [place] [id number] Jul, IMMUNIZATIONS No Known Immunizations SOCIAL HISTORY Never Assessed REASON FOR VISIT PLAN OF CARE VITAL SIGNS Height 66 in 2014-11-28 Weight 154.71 lbs 2014-11-28 Temperature 98.3 degrees Fahrenheit 2014-11-28 Heart Rate 84 bpm 2014-11-28 Respiratory Rate 18 2014-11-28 Blood pressure systolic 122 mmHg 2014-11-28 Blood pressure diastolic 80 mmHg 2014-11-28 MEDICATIONS No Known Medications RESULTS No Results PROCEDURES Procedure Date Ordered Result Body Site CINE/VID X-RAY, THROAT/ESOPH November 28, 2014 INSTRUCTIONS MEDICATIONS ADMINISTERED No Known Medications MEDICAL (GENERAL) HISTORY Type Description Date Medical History hypertension Medical History osteoporosis Medical History rheumatoid arthritis Medical History Heart infection Medical History Rheumatic or Scarlet Fever Medical History Pneumonia Medical History Bronchitis Medical History Prednisone Medical History Bilateral Pneumonia. 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
--- OUTSIDE RECORDS SUMMARY | 2020-02-27 15:42 | XMS REPORT ---
Author Author Beba CORBIN [facility] Address [address] [place] [address] Care Team Providers Care Warehouse Analyst Name Role Phone EMERALD EDWARD Unavailable PROBLEMS Type Condition ICD9-CM Code HRN29-MX Code Onset Dates Condition S tatus SNOMED Code Problem Essential hypertension I10 Active 16918091 Problem Chronic constipation K59.00 Active 422389560 Problem Atrophy of left kidney N26.1 Active 478819135 Problem Vitamin D deficiency E55.9 Active 06682448 Problem Colon wall thickening K63.9 Active 714702414 Problem Chronic prescription opiate use Z79.899 Active 110432991 Problem Gastroesophageal reflux disease, esophagitis pre sence not specified K21.9 Active 793151610 Problem Hyperlipidemia, unspecified hyperlipidemia E78.5 Active 09681859 Problem Bladder wall thickening N32.89 Active 968942811 Problem Chronic pain syndrome G89.4 Active 846581286 Problem Asthma exacerbation J45.901 Active 523143853 Problem Severe episode of recurrent major depressive disorder, without psychotic features F33.2 Active 53729570 Problem Dependence on supplemental oxygen Z99.81 Active 844322747680 Problem Moderate persistent asthma with acute exacerbation J45.41 Active [id number] Problem Rheumatoid arthritis involvi ng multiple sites with positive rheumatoid factor M05.89 Active 595170125 Problem Chronic respiratory failure with hypoxia J96.11 Active 575594132 Problem Osteoporosis M81.0 Active 0067312 6 Problem Pernicious anemia D51.0 Active 84 790980 Problem Chronic kidney disease, stage 1 N18.1 Active 084937304 Problem Generalized anxiety disorder F41.1 A ctive 84573417 Problem Moderate persistent asthma without complication J4 5.40 Active 590016342 Problem Lumbago with sciatica, left side M54.42 Active 033321168 Problem Lumbago with sciatica, right side M54.41 Active [id number] ALLERGIES No Information ENCOUNTERS Encounter Location Date Diagnosis [facility] [address] [facility] [id number] [address] [place] [phone] Mar, Dizziness R42 and Nausea and vomiting, intractability of vomiting not specified, unspecified vomiting type R11.2 [facility] [address] [facility] [id number] [address] [place] [phone] Feb, Chronic pain syndrome G89.[address] [address] January, Chronic pain syndrome G89.4 [facility] [address] [facility] [id number] [address] [place] [phone] Dec, [facility] [address] [facility] [id number] [address] [place] [address] Dec, [facility] [address] [place] [id number] [address] [place] [address] Dec, Asthma exacerbation J45.901 ; Essential hypertension I10 ; Hyperlipidemia, unspecified hyperlipidemia E78.5 ; Rheumatoid arthritis involving multiple sites with positive rheumatoid factor M05.89 ; Chronic pain syndrome G89.4 ; Chronic kidney disease, stage 1 N18.1 ; Chronic respiratory failure with hypoxia J96.11 and Dependence on supplemental oxygen Z99.81 [facility] [address] [facility] [id number] [address] [place] [phone] Dec, Chronic pain syndrome G89.4 [facility] [address] [facility] [id number] [address] [place] [address] Nov, Chronic pain syndrome G89.4 [facility] [address] [facility] [id number] [address] [place] [phone] Nov, [facility] [address] [place] [id number] [address] [place] [phone] 15 Oct, 2018 Chronic pain syndrome G89.4 [facility] [address] [facility] [id number] [address] [place] [phone] Oct, [facility] [address] [place] [id number] [address] [place] [phone] 11 Oct, 2018 Viral upper respiratory trac t infection J06.9 ; Chronic constipation K59.00 ; Severe episode of recurrent major depressive disorder, without psychotic features F33.2 ; Moderate persistent asthma with acute exacerbation J45.41 ; Essential hypertension I10 ; Gastroesophageal reflux disease, esophagitis presence not specified K21.9 and Hyperlipidemia, unspecified hyperlipidemia E78.5 [place] [id number] [address] 05 Oct, 2018 [place] [address] [address] Sep, Chronic pain syndrome G89.4 [place] [address] [address] Sep, Rheumatoid arthritis involvi ng multiple sites with positive rheumatoid factor M05.89 ; Chronic constipation K59.00 ; Gastroesophageal reflux disease, esophagitis presence not specified K21.9 ; Asthma exacerbation J45.901 ; Severe episode of recurrent major depressive disorder, without psychotic features F33.2 ; Ganglion cyst M67.40 and Chronic prescription opiate use Z79.899 [facility] [address] [address] Aug, Cough R05 and Moderate persi stent asthma with acute exacerbation J45.41 [facility] [address] [address] Aug, Chronic pain syndrome G89.4 [facility] [address] [place] [id number] [place] [address] Jul, Chronic pain syndrome G89.4 [facility] [address] [address] Jul, Acute nasopharyngitis J00 [facility] [address] [place] [id number] [place] [address] Jun, [facility] [address] [address] Jun, Chronic pain syndrome G89.4 [facility] [address] [id number] [address] [place] [phone] 21 May, 2018 Chronic pain syndrome G89.4 [facility] [address] [id number] [address] [place] [phone] 14 May, 2018 [facility] [address] [id number] [address] [place] [address] May, [facility] [address] [id number] [address] [place] [address] May, Moderate persistent asthma w ith acute exacerbation J45.41 and Rheumatoid arthritis involving multiple sites with positive rheumatoid factor M05.89 [place] [address] [id number] [address] [place] [address] May, Moderate persistent asthma w ith acute exacerbation J45.41 and Hypoxia R09.02 [facility] [address] [facility] [id number] [address] [place] [address] Apr, Chronic pain syndrome G89.4 [facility] [address] [facility] [id number] [address] [place] [address] Mar, High ankle sprain of right l ower extremity, subsequent encounter S93.431D ; Lumbago with sciatica, left side M54.42 and Lumbago with sciatica, right side M54.41 [facility] [address] [facility] [id number] [address] [place] [address] Mar, [facility] [address] [id number] [address] [place] [phone] Mar, Chronic pain syndrome G89.4 [facility] [address] [facility] [id number] [address] [place] [address] Mar, [facility] [address] [facility] [id number] [address] [place] [address] Mar, Asthma exacerbation J45.901 and Sprain of right ankle, unspecified ligament, subsequent encounter S93.401D [facility] [address] [place] [id number] [address] [place] [address] 30 Feb, 2018 Injury of right ankle, initi al encounter S99.911A [facility] [address] [place] [id number] [address] [place] [phone] Feb, Chronic pain syndrome G89.4 [facility] [address] [address] Feb, Chronic pain syndrome G89.4 [facility] [address] [place] [id number] [place] [address] Feb, Moderate persistent asthma w ith acute exacerbation J45.41 and Persistent cough for 3 weeks or longer R05 [facility] [address] [place] [id number] [place] [address] January, [place] [address] [address] January, Moderate persistent asthma w ith acute exacerbation J45.41 [place] [address] [address] January, Chronic pain syndrome G89.4 [facility] [address] [address] January, Tachycardia R00.0 and Modera te persistent asthma with acute exacerbation J45.41 [place] [address] [address] January, Tachycardia R00.0 ; Moderate persistent asthma with acute exacerbation J45.41 ; Gastroesophageal reflux disease, esophagitis presence not specified K21.9 ; Hyperlipidemia, unspecified hyperlipidemia E78.5 and Chronic pain syndrome G89.4 [facility] [address] [place] [id number] [address] [place] [address] Dec, Medicare annual wellness vis it, initial [...] immunization Z23 and Chronic pain syndrome G89.4 [facility] [address] [address] Dec, Chronic pain syndrome G89.4 [place] [address] [address] Dec, [place] [address] [address] Nov, [place] [address] [address] Nov, Chronic pain syndrome G89.4 [place] [address] [address] Oct, Chronic pain syndrome G89.4 [place] [address] [address] Oct, Chronic kidney disease, stag e 1 N18.1 [place] [address] [address] 07 Oct, 2017 Chronic prescription opiate use Z79.899 ; Cough R05 ; Asthma exacerbation J45.901 ; Elevated liver enzymes R74.8 ; Rheumatoid arthritis involving multiple sites with positive rheumatoid factor M05.89 and Chronic pain syndrome G89.4 [place] [address] [address] Sep, Chronic pain syndrome G89.4 [place] [address] [address] Sep, [place] [address] [address] Aug, Acute bronchitis, unspecifie d organism J20.9 [place] [address] [place] [id number] [address] [place] [address] Aug, Chronic pain syndrome G89.4 [facility] [address] [address] Jul, Chronic pain syndrome G89.4 [facility] [address] [address] Jun, Chronic pain syndrome G89.4 [facility] [address] [address] 29 May, 2017 Rheumatoid arthritis involvi ng multiple sites with positive rheumatoid factor M05.89 [place] [address] [address] 26 May, 2017 Gastroesophageal reflux dise ase, esophagitis presence not specified K21.9 and Chronic pain syndrome G89.4 [place] [address] [address] May, [place] [address] [address] May, Esophageal candidiasis B37.8 1 and Chronic kidney disease, stage 1 N18.1 [place] [address] [address] 11 May, 2017 Chronic kidney disease, stag e 1 N18.1 [place] [address] [address] 05 May, 2017 Cough R05 ; Fever, unspecifi ed fever cause R50.9 ; Rheumatoid arthritis involving multiple sites with positive rheumatoid factor M05.89 and Chronic prescription opiate use Z79.899 [place] [address] [address] Apr, [place] [address] [address] Apr, Cough R05 [place] [address] [address] Apr, Asthma exacerbation J45.901 [facility] [address] [facility] [id number] [address] [place] [address] Apr, [facility] [address] [facility] [id number] [address] [place] [address] Apr, Generalized anxiety disorder F41.1 and Severe episode of recurrent major depressive disorder, without psychotic features F33.2 [facility] [address] [place] [id number] [address] [place] [address] Mar, [facility] [address] [facility] [id number] [address] [place] [address] Feb, Chronic pain syndrome G89.4 [place] [address] [place] [id number] [address] [place] [address] Feb, Acute non-recurrent maxillar y sinusitis J01.00 [place] [address] [place] [id number] [address] [place] [address] Feb, Acute non-recurrent frontal sinusitis J01.10 [place] [address] [facility] [id number] [address] [place] [address] Feb, Chronic pain syndrome G89.4 [place] [address] [place] [id number] [address] [place] [address] January, Acute cystitis with hematuri a N30.01 [place] [address] [place] [id number] [address] [place] [address] January, Acute cystitis with hematuri a N30.01 ; Dysuria R30.0 and Moderate persistent asthma with acute exacerbation J45.41 [place] [address] [facility] [id number] [address] [place] [address] January, [place] [address] [place] [id number] [address] [place] [address] January, Chronic pain syndrome G89.4 [place] [address] [place] [id number] [address] [place] [address] January, Asthma exacerbation J45.901 [place] [address] [address] January, Asthma exacerbation J45.901 [place] [address] [address] Dec, Cough R05 ; Numbness in both hands R20.0 ; Ground glass opacity present on imaging of lung R91.8 ; Hypoxia R09.02 and Asthma exacerbation J45.901 [place] [address] [address] Dec, Chronic pain syndrome G89.4 [place] [address] [address] Nov, Chronic prescription opiate use Z79.899 ; Rheumatoid arthritis involving multiple sites with positive rheumatoid factor M05.89 ; Moderate persistent asthma with acute exacerbation J45.41 ; Pneumonia of right lower lobe due to infectious organism J18.1 ; Chronic pain syndrome G89.4 ; Gastroesophageal reflux disease, esophagitis presence not specified K21.9 and Hyperlipidemia, unspecified hyperlipidemia E78.5 [place] [address] [address] Nov, Rheumatoid arthritis involvi ng multiple sites with positive rheumatoid factor M05.89 [place] [address] [address] Oct, [place] [address] [address] Oct, Essential hypertension I10 [place] [address] [address] Sep, Hypoxia R09.02 and Ground gl ass opacity present on imaging of lung R91.8 [place] [address] [place] [id number] [address] [place] [phone] Sep, Moderate persistent asthma w ith acute exacerbation J45.41 [facility] [address] [place] [id number] Sep, [facility] [address] [id number] [address] [place] [address] Sep, Chronic constipation K59.00 and Moderate persistent asthma with acute exacerbation J45.41 [facility] [address] [id number] [address] [place] [address] Sep, Moderate persistent asthma w ith acute exacerbation J45.41 [facility] [address] [id number] [address] [place] [address] Aug, [facility] [address] [id number] [address] [place] [address] Aug, [facility] [address] [facility] [id number] [address] [place] [address] Aug, [facility] [address] [facility] [id number] [address] [place] [address] Aug, Rheumatoid arthritis involvi ng multiple sites with positive rheumatoid factor M05.89 ; Essential hypertension I10 ; Hyperlipidemia, unspecified hyperlipidemia E78.5 ; Chronic constipation K59.00 and Moderate persistent asthma with acute exacerbation J45.41 [facility] [address] [facility] [id number] [address] [place] [address] Aug, Bronchitis J40 [facility] [address] [facility] [id number] [address] [place] [address] Aug, Rheumatoid arthritis involvi ng multiple sites with positive rheumatoid factor M05.89 [facility] [address] [id number] [address] [place] [address] Aug, Pharyngitis, unspecified pablito ology J02.9 and Acute nasopharyngitis J00 [facility] [address] [facility] [id number] [address] [place] [address] Aug, [facility] [address] [facility] [id number] [address] [place] [address] Jul, [facility] [address] [address] Jul, Rheumatoid arthritis involvi ng multiple sites with positive rheumatoid factor M05.89 ; Essential hypertension I10 ; Hyperlipidemia, unspecified hyperlipidemia E78.5 ; Rash R21 ; Mild persistent asthma with acute exacerbation J45.31 ; Hematuria R31.9 ; Osteoporosis M81.0 and Gastroesophageal reflux disease, esophagitis presence not specified K21.9 [facility] [address] [place] [address] Jun, [facility] [address] [place] [id number] [place] [address] Jun, Dysuria R30.0 [facility] [address] [place] [id number] [place] [address] Jun, Acute non-recurrent maxillar y sinusitis J01.00 and Dysuria R30.0 [facility] [address] [address] May, [facility] [address] [address] May, [facility] [address] [address] Apr, Chronic prescription opiate use Z79.899 and Rheumatoid arthritis involving multiple sites with positive rheumatoid factor M05.89 [facility] [address] [address] Mar, [facility] [address] [address] Feb, Dizziness of unknown cause R 42 and Other chronic pain G89.29 [place] [address] [address] Feb, [place] [address] [address] Feb, Shortness of breath R06.02 [facility] [address] [address] January, [facility] [address] [place] [id number] [address] [place] [address] January, Rheumatoid arthritis involvi ng multiple sites with positive rheumatoid factor M05.89 ; Chronic prescription opiate use Z79.899 ; Hyperlipidemia, unspecified hyperlipidemia E78.5 ; Cough R05 ; Exposure to pneumonia Z20.828 ; Diarrhea, unspecified type R19.7 ; Weight loss R63.4 ; Lumbago with sciatica, right side M54.41 and Lumbago with sciatica, left side M54.42 [facility] [address] [address] Dec, [facility] [address] [place] [id number] [place] [address] Dec, Bronchitis J40 [facility] [address] [address] Nov, [facility] [address] [place] [id number] [address] [place] [address] Nov, [facility] [address] [address] Nov, [facility] [address] [place] [id number] [address] [place] [address] Nov, Bloody diarrhea R19.7 ; Home n wall thickening K63.9 ; Shortness of breath R06.02 and Bladder wall thickening N32.89 [facility] [address] [place] [id number] [address] [place] [id number] Oct, Dental examination Z01.20 [facility] [address] [place] [id number] [address] [place] [address] Oct, [facility] [address] [place] [id number] [address] [place] [address] Oct, Toothache K08.8 [facility] [address] [place] [id number] [place] [id number] Oct, 2015 Dental examination Z01.20 [place] [address] [facility] [id number] [address] [place] [address] 02 Oct, 2015 [place] [address] [facility] [id number] [address] [place] [address] Sep, [place] [address] [place] [id number] [place] [address] Sep, Burning with urination R30.0 [place] [address] [facility] [id number] [address] [place] [address] Sep, Hematuria R31.9 ; Rheumatoid arthritis involving multiple sites with positive rheumatoid factor M05.89 and Rheumatoid arthritis flare M06.9 [place] [address] [place] [id number] [place] [address] Aug, Hyperlipidemia, unspecified hyperlipidemia E78.5 and Hematuria R31.9 [place] [address] [place] [address] Aug, Hematuria R31.9 ; Chronic ki dney disease, stage 1 N18.1 and Hyperlipidemia, unspecified hyperlipidemia E78.5 [place] [address] [place] [id number] [address] [place] [address] Aug, Rheumatoid arthritis involvi ng multiple sites with positive rheumatoid factor M05.89 ; Asthma exacerbation J45.901 ; Hematuria R31.9 ; Hyperlipidemia, unspecified hyperlipidemia E78.5 and Chronic kidney disease, stage 1 N18.1 [place] [address] [facility] [id number] [address] [place] [address] Aug, [place] [address] [place] [id number] [address] [place] [address] Jul, [place] [address] [place] [id number] [place] [address] Jul, Lumbosacral radiculopathy M5 4.17 [place] [address] [place] [id number] [address] [place] [address] Jul, [facility] [address] [id number] [address] [place] [address] Jun, Rheumatoid arthritis involvi ng multiple sites with positive rheumatoid factor M05.89 ; Hyperlipidemia, unspecified hyperlipidemia E78.5 ; Lumbosacral radiculopathy M54.17 ; Carpal tunnel syndrome, right upper limb G56.01 and Carpal tunnel syndrome, left upper limb G56.02 [facility] [address] [id number] [address] [place] [address] Jun, [facility] [address] [id number] [address] [place] [address] May, Lumbar radicular pain 724.4 and Dysuria 788.1 [facility] [address] [facility] [id number] [address] [place] [phone] May, Rheumatoid arthritis 714.0 ; Lumbar radicular pain 724.4 ; Burn 949.0 and Thoracic back pain 724.1 [facility] [address] [facility] [id number] [address] [place] [phone] May, [facility] [address] [id number] [address] [place] [phone] May, [facility] [address] [facility] [id number] [address] [place] [phone] Apr, [facility] [address] [id number] [address] [place] [address] Mar, Hyperlipidemia 272.4 [facility] [address] [facility] [id number] [address] [place] [phone] Mar, [facility] [address] [id number] [address] [place] [id number] Mar, [facility] [address] [facility] [id number] [address] [place] [id number] Mar, Diarrhea 787.91 ; Chronic ki dney disease, unspecified 585.9 ; Hyperlipidemia 272.4 and Asthma 493.90 [facility] [address] [id number] [address] [place] [address], [place] [id number] Mar, [facility] [address] [id number] [address] [place] [id number] Mar, Gastroenteritis 558.9 [facility] [address] [id number] [address] [place] [address], [place] [address] Feb, [facility] [address] [id number] [address] [place] [id number] January, [facility] [address] [id number] [address] [place] [address], [place] [address] January, [facility] [address] [id number] [address] [place] [id number] Dec, [facility] [address] [id number] [address] [place] [id number] Dec, [facility] [address] [id number] [address] [place] [phone] Nov, [facility] [address] [id number] [address] [place] [phone] Nov, [facility] [address] [id number] [address] [place] [phone] Nov, [facility] [address] [id number] [address] [place] [phone] Nov, [facility] [address] [id number] [address] [place] [id number] Nov, [facility] [address] [id number] [address] [place] [phone] Nov, [facility] [address] [id number] [address] [place] [id number] Oct, [facility] [address] [id number] [address] [place] [phone] Oct, [facility] [address] [id number] [address] [place] [address], [place] [address] Sep, [facility] [address] [id number] [address] [place] [address], [place] [address] Sep, [facility] [address] [id number] [address] [place] [address], [place] [address] Sep, [facility] [address] [id number] [address] [place] [address], [place] [address] Sep, [facility] [address] [id number] [address] [place] [address], [place] [address] Sep, [facility] [address] [id number] [address] [place] [address], [place] [address] Sep, [facility] [address] [id number] [address] [place] [address], [place] [address] Aug, [facility] [address] [id number] [address] [place] [address], [place] [address] Aug, [facility] [address] [id number] [address] [place] [address], [place] [address] Aug, [facility] [address] [id number] [address] [place] [address], [place] [address] Aug, [facility] [address] [id number] [address] [place] [address], [place] [address] Jul, [facility] [address] [id number] [address] [place] [address], [place] [address] Jul, [facility] [address] [id number] [address] [place] [address], [place] [address] Jul, [facility] [address] [id number] [address] [place] [address], [place] [address] Jul, [facility] [address] [id number] [address] [place] [address], [place] [address] Jul, [facility] [address] [id number] [address] [place] [address], [place] [address] Jul, [facility] [address] [id number] [address] [place] [address], [place] [address] Jul, [facility] [address] [id number] [address] [place] [address], [place] [address] Jul, [facility] [address] [id number] [address] [place] [address], [place] [address] Jul, [facility] [address] [id number] [address] [place] [address], [place] [address] Jun, [facility] [address] [id number] [address] [place] [address], [place] [address] Jun, [facility] [address] [id number] [address] [place] [address], [place] [address] 15 Jun, 2014 [facility] [address] [id number] [address] [place] [address], [place] [address] 25 May, 2014 [facility] [address] [id number] [address] [place] [address], [place] [address] 25 May, 2013 [facility] [address] [id number] [address] [place] [address], [place] [address] 24 May, 2013 [facility] [address] [id number] [address] [place] [address], [place] [address] 24 May, 2013 [facility] [address] [id number] [address] [place] [address], [place] [address] 24 Sep, 2013 [facility] [address] [id number] [address] [place] [address], [place] [address] 24 Sep, 2013 [facility] [address] [id number] [address] [place] [address], [place] [address] 19 May, 2013 [facility] [address] [id number] [address] [place] [address], [place] [address] 19 Sep, 2013 [facility] [address] [id number] [address] [place] [address], [place] [address] 11 May, 2013 [facility] [address] [id number] [address] [place] [id number] 11 May, 2014 [facility] [address] [id number] [address] [place] [id number] May, [facility] [address] [id number] [address] [place] [id number] May, [facility] [address] [id number] [address] [place] [phone] May, [facility] [address] [id number] [address] [place] [id number] May, [facility] [address] [id number] [address] [place] [id number] May, [facility] [address] [id number] [address] [place] [phone] May, [facility] [address] [id number] [address] [place] [id number] Apr, [facility] [address] [id number] [address] [place] [id number] Apr, [facility] [address] [id number] [address] [place] [id number] Aug, [facility] [address] [id number] [address] [place] [id number] Jul, IMMUNIZATIONS No Known Immunizations SOCIAL HISTORY [...]
--- OUTSIDE RECORDS SUMMARY | 2020-02-27 15:42 | XMS REPORT ---
Author Author Beba CORBIN [facility] Address [address] [place] [address] Care Team Providers Care Coach Tour Driver Name Role Phone EMERALD EDWARD Unavailable PROBLEMS Type Condition ICD9-CM Code HAZ39-RE Code Onset Dates Condition S tatus SNOMED Code Problem Essential hypertension I10 Active 75192525 Problem Chronic constipation K59.00 Active 375294944 Problem Atrophy of left kidney N26.1 Active 110293086 Problem Vitamin D deficiency E55.9 Active 70021585 Problem Colon wall thickening K63.9 Active 141448089 Problem Chronic prescription opiate use Z79.899 Active 193352530 Problem Gastroesophageal reflux disease, esophagitis pre sence not specified K21.9 Active 929347501 Problem Hyperlipidemia, unspecified hyperlipidemia E78.5 Active 75008787 Problem Bladder wall thickening N32.89 Active 139458680 Problem Chronic pain syndrome G89.4 Active 599561833 Problem Asthma exacerbation J45.901 Active 731882808 Problem Severe episode of recurrent major depressive disorder, without psychotic features F33.2 Active 83255693 Problem Dependence on supplemental oxygen Z99.81 Active 005049380573 Problem Moderate persistent asthma with acute exacerbation J45.41 Active 119303490297091 Problem Rheumatoid arthritis involvi ng multiple sites with positive rheumatoid factor M05.89 Active 008995036 Problem Chronic respiratory failure with hypoxia J96.11 Active 312196673 Problem Osteoporosis M81.0 Active 2979839 6 Problem Pernicious anemia D51.0 Active 84 301685 Problem Chronic kidney disease, stage 1 N18.1 Active 500606197 Problem Generalized anxiety disorder F41.1 A ctive 91337489 Problem Moderate persistent asthma without complication J4 5.40 Active 326637395 Problem Lumbago with sciatica, left side M54.42 Active 212671174 Problem Lumbago with sciatica, right side M54.41 Active [id number] ALLERGIES No Information ENCOUNTERS Encounter Location Date Diagnosis [facility] [address] [facility] [id number] [address] [place] [address] Mar, Dizziness R42 and Nausea and vomiting, intractability of vomiting not specified, unspecified vomiting type R11.2 [facility] [address] [facility] [id number] [address] [place] [address] Feb, Chronic pain syndrome G89.[address] [address] January, Chronic pain syndrome G89.4 [facility] [address] [facility] [id number] [address] [place] [address] Dec, [facility] [address] [facility] [id number] [address] [place] [address] Dec, [facility] [address] [place] [id number] [address] [place] [address] Dec, Asthma exacerbation J45.901 ; Essential hypertension I10 ; Hyperlipidemia, unspecified hyperlipidemia E78.5 ; Rheumatoid arthritis involving multiple sites with positive rheumatoid factor M05.89 ; Chronic pain syndrome G89.4 ; Chronic kidney disease, stage 1 N18.1 ; Chronic respiratory failure with hypoxia J96.11 and Dependence on supplemental oxygen Z99.81 [facility] [address] [facility] [id number] [address] [place] [address] Dec, Chronic pain syndrome G89.4 [facility] [address] [facility] [id number] [address] [place] [address] Nov, Chronic pain syndrome G89.4 [facility] [address] [facility] [id number] [address] [place] [address] Nov, [facility] [address] [place] [id number] [address] [place] [address] 15 Oct, 2018 Chronic pain syndrome G89.4 [facility] [address] [facility] [id number] [address] [place] [address] Oct, [facility] [address] [place] [id number] [address] [place] [address] 11 Oct, 2018 Viral upper respiratory trac t infection J06.9 ; Chronic constipation K59.00 ; Severe episode of recurrent major depressive disorder, without psychotic features F33.2 ; Moderate persistent asthma with acute exacerbation J45.41 ; Essential hypertension I10 ; Gastroesophageal reflux disease, esophagitis presence not specified K21.9 and Hyperlipidemia, unspecified hyperlipidemia E78.5 [place] [id number] [address] 05 Oct, 2018 [place] [address] [address] Sep, Chronic pain syndrome G89.4 [place] [address] [address] Sep, Rheumatoid arthritis involvi ng multiple sites with positive rheumatoid factor M05.89 ; Chronic constipation K59.00 ; Gastroesophageal reflux disease, esophagitis presence not specified K21.9 ; Asthma exacerbation J45.901 ; Severe episode of recurrent major depressive disorder, without psychotic features F33.2 ; Ganglion cyst M67.40 and Chronic prescription opiate use Z79.899 [facility] [address] [address] Aug, Cough R05 and Moderate persi stent asthma with acute exacerbation J45.41 [facility] [address] [address] Aug, Chronic pain syndrome G89.4 [facility] [address] [place] [id number] [place] [address] Jul, Chronic pain syndrome G89.4 [facility] [address] [address] Jul, Acute nasopharyngitis J00 [facility] [address] [place] [id number] [place] [address] Jun, [facility] [address] [address] Jun, Chronic pain syndrome G89.4 [facility] [address] [id number] [address] [place] [address] 21 May, 2018 Chronic pain syndrome G89.4 [facility] [address] [id number] [address] [place] [address] 14 May, 2018 [facility] [address] [id number] [address] [place] [address] May, [facility] [address] [id number] [address] [place] [address] May, Moderate persistent asthma w ith acute exacerbation J45.41 and Rheumatoid arthritis involving multiple sites with positive rheumatoid factor M05.89 [place] [address] [id number] [address] [place] [address] May, Moderate persistent asthma w ith acute exacerbation J45.41 and Hypoxia R09.02 [facility] [address] [facility] [id number] [address] [place] [address] Apr, Chronic pain syndrome G89.4 [facility] [address] [facility] [id number] [address] [place] [address] Mar, High ankle sprain of right l ower extremity, subsequent encounter S93.431D ; Lumbago with sciatica, left side M54.42 and Lumbago with sciatica, right side M54.41 [facility] [address] [facility] [id number] [address] [place] [address] Mar, [facility] [address] [id number] [address] [place] [address] Mar, Chronic pain syndrome G89.4 [facility] [address] [facility] [id number] [address] [place] [address] Mar, [facility] [address] [facility] [id number] [address] [place] [address] Mar, Asthma exacerbation J45.901 and Sprain of right ankle, unspecified ligament, subsequent encounter S93.401D [facility] [address] [place] [id number] [address] [place] [address] 30 Feb, 2018 Injury of right ankle, initi al encounter S99.911A [facility] [address] [place] [id number] [address] [place] [address] Feb, Chronic pain syndrome G89.4 [facility] [address] [address] Feb, Chronic pain syndrome G89.4 [facility] [address] [place] [id number] [place] [address] Feb, Moderate persistent asthma w ith acute exacerbation J45.41 and Persistent cough for 3 weeks or longer R05 [facility] [address] [place] [id number] [place] [address] January, [place] [address] [address] January, Moderate persistent asthma w ith acute exacerbation J45.41 [place] [address] [address] January, Chronic pain syndrome G89.4 [facility] [address] [address] January, Tachycardia R00.0 and Modera te persistent asthma with acute exacerbation J45.41 [place] [address] [address] January, Tachycardia R00.0 ; Moderate persistent asthma with acute exacerbation J45.41 ; Gastroesophageal reflux disease, esophagitis presence not specified K21.9 ; Hyperlipidemia, unspecified hyperlipidemia E78.5 and Chronic pain syndrome G89.4 [facility] [address] [place] [id number] [address] [place] [address] Dec, Medicare annual wellness vis it, initial [...] immunization Z23 and Chronic pain syndrome G89.4 [facility] [address] [address] Dec, Chronic pain syndrome G89.4 [place] [address] [address] Dec, [place] [address] [address] Nov, [place] [address] [address] Nov, Chronic pain syndrome G89.4 [place] [address] [address] Oct, Chronic pain syndrome G89.4 [place] [address] [address] Oct, Chronic kidney disease, stag e 1 N18.1 [place] [address] [address] 07 Oct, 2017 Chronic prescription opiate use Z79.899 ; Cough R05 ; Asthma exacerbation J45.901 ; Elevated liver enzymes R74.8 ; Rheumatoid arthritis involving multiple sites with positive rheumatoid factor M05.89 and Chronic pain syndrome G89.4 [place] [address] [address] Sep, Chronic pain syndrome G89.4 [place] [address] [address] Sep, [place] [address] [address] Aug, Acute bronchitis, unspecifie d organism J20.9 [place] [address] [place] [id number] [address] [place] [address] Aug, Chronic pain syndrome G89.4 [facility] [address] [address] Jul, Chronic pain syndrome G89.4 [facility] [address] [address] Jun, Chronic pain syndrome G89.4 [facility] [address] [address] 29 May, 2017 Rheumatoid arthritis involvi ng multiple sites with positive rheumatoid factor M05.89 [place] [address] [address] 26 May, 2017 Gastroesophageal reflux dise ase, esophagitis presence not specified K21.9 and Chronic pain syndrome G89.4 [place] [address] [address] May, [place] [address] [address] May, Esophageal candidiasis B37.8 1 and Chronic kidney disease, stage 1 N18.1 [place] [address] [address] 11 May, 2017 Chronic kidney disease, stag e 1 N18.1 [place] [address] [address] 05 May, 2017 Cough R05 ; Fever, unspecifi ed fever cause R50.9 ; Rheumatoid arthritis involving multiple sites with positive rheumatoid factor M05.89 and Chronic prescription opiate use Z79.899 [place] [address] [address] Apr, [place] [address] [address] Apr, Cough R05 [place] [address] [address] Apr, Asthma exacerbation J45.901 [facility] [address] [facility] [id number] [address] [place] [address] Apr, [facility] [address] [facility] [id number] [address] [place] [address] Apr, Generalized anxiety disorder F41.1 and Severe episode of recurrent major depressive disorder, without psychotic features F33.2 [facility] [address] [place] [id number] [address] [place] [address] Mar, [facility] [address] [facility] [id number] [address] [place] [address] Feb, Chronic pain syndrome G89.4 [place] [address] [place] [id number] [address] [place] [address] Feb, Acute non-recurrent maxillar y sinusitis J01.00 [place] [address] [place] [id number] [address] [place] [address] Feb, Acute non-recurrent frontal sinusitis J01.10 [place] [address] [facility] [id number] [address] [place] [address] Feb, Chronic pain syndrome G89.4 [place] [address] [place] [id number] [address] [place] [address] January, Acute cystitis with hematuri a N30.01 [place] [address] [place] [id number] [address] [place] [address] January, Acute cystitis with hematuri a N30.01 ; Dysuria R30.0 and Moderate persistent asthma with acute exacerbation J45.41 [place] [address] [facility] [id number] [address] [place] [address] January, [place] [address] [place] [id number] [address] [place] [address] January, Chronic pain syndrome G89.4 [place] [address] [place] [id number] [address] [place] [address] January, Asthma exacerbation J45.901 [place] [address] [address] January, Asthma exacerbation J45.901 [place] [address] [address] Dec, Cough R05 ; Numbness in both hands R20.0 ; Ground glass opacity present on imaging of lung R91.8 ; Hypoxia R09.02 and Asthma exacerbation J45.901 [place] [address] [address] Dec, Chronic pain syndrome G89.4 [place] [address] [address] Nov, Chronic prescription opiate use Z79.899 ; Rheumatoid arthritis involving multiple sites with positive rheumatoid factor M05.89 ; Moderate persistent asthma with acute exacerbation J45.41 ; Pneumonia of right lower lobe due to infectious organism J18.1 ; Chronic pain syndrome G89.4 ; Gastroesophageal reflux disease, esophagitis presence not specified K21.9 and Hyperlipidemia, unspecified hyperlipidemia E78.5 [place] [address] [address] Nov, Rheumatoid arthritis involvi ng multiple sites with positive rheumatoid factor M05.89 [place] [address] [address] Oct, [place] [address] [address] Oct, Essential hypertension I10 [place] [address] [address] Sep, Hypoxia R09.02 and Ground gl ass opacity present on imaging of lung R91.8 [place] [address] [place] [id number] [address] [place] [address] Sep, Moderate persistent asthma w ith acute exacerbation J45.41 [facility] [address] [place] [id number] Sep, [facility] [address] [id number] [address] [place] [address] Sep, Chronic constipation K59.00 and Moderate persistent asthma with acute exacerbation J45.41 [facility] [address] [id number] [address] [place] [address] Sep, Moderate persistent asthma w ith acute exacerbation J45.41 [facility] [address] [id number] [address] [place] [address] Aug, [facility] [address] [id number] [address] [place] [address] Aug, [facility] [address] [facility] [id number] [address] [place] [address] Aug, [facility] [address] [facility] [id number] [address] [place] [address] Aug, Rheumatoid arthritis involvi ng multiple sites with positive rheumatoid factor M05.89 ; Essential hypertension I10 ; Hyperlipidemia, unspecified hyperlipidemia E78.5 ; Chronic constipation K59.00 and Moderate persistent asthma with acute exacerbation J45.41 [facility] [address] [facility] [id number] [address] [place] [address] Aug, Bronchitis J40 [facility] [address] [facility] [id number] [address] [place] [address] Aug, Rheumatoid arthritis involvi ng multiple sites with positive rheumatoid factor M05.89 [facility] [address] [id number] [address] [place] [address] Aug, Pharyngitis, unspecified pablito ology J02.9 and Acute nasopharyngitis J00 [facility] [address] [facility] [id number] [address] [place] [address] Aug, [facility] [address] [facility] [id number] [address] [place] [address] Jul, [facility] [address] [address] Jul, Rheumatoid arthritis involvi ng multiple sites with positive rheumatoid factor M05.89 ; Essential hypertension I10 ; Hyperlipidemia, unspecified hyperlipidemia E78.5 ; Rash R21 ; Mild persistent asthma with acute exacerbation J45.31 ; Hematuria R31.9 ; Osteoporosis M81.0 and Gastroesophageal reflux disease, esophagitis presence not specified K21.9 [facility] [address] [place] [address] Jun, [facility] [address] [place] [id number] [place] [address] Jun, Dysuria R30.0 [facility] [address] [place] [id number] [place] [address] Jun, Acute non-recurrent maxillar y sinusitis J01.00 and Dysuria R30.0 [facility] [address] [address] May, [facility] [address] [address] May, [facility] [address] [address] Apr, Chronic prescription opiate use Z79.899 and Rheumatoid arthritis involving multiple sites with positive rheumatoid factor M05.89 [facility] [address] [address] Mar, [facility] [address] [address] Feb, Dizziness of unknown cause R 42 and Other chronic pain G89.29 [place] [address] [address] Feb, [place] [address] [address] Feb, Shortness of breath R06.02 [facility] [address] [address] January, [facility] [address] [place] [id number] [address] [place] [address] January, Rheumatoid arthritis involvi ng multiple sites with positive rheumatoid factor M05.89 ; Chronic prescription opiate use Z79.899 ; Hyperlipidemia, unspecified hyperlipidemia E78.5 ; Cough R05 ; Exposure to pneumonia Z20.828 ; Diarrhea, unspecified type R19.7 ; Weight loss R63.4 ; Lumbago with sciatica, right side M54.41 and Lumbago with sciatica, left side M54.42 [facility] [address] [address] Dec, [facility] [address] [place] [id number] [place] [address] Dec, Bronchitis J40 [facility] [address] [address] Nov, [facility] [address] [place] [id number] [address] [place] [address] Nov, [facility] [address] [address] Nov, [facility] [address] [place] [id number] [address] [place] [address] Nov, Bloody diarrhea R19.7 ; [place] n wall thickening K63.9 ; Shortness of breath R06.02 and Bladder wall thickening N32.89 [facility] [address] [place] [id number] [address] [place] [id number] Oct, Dental examination Z01.20 [facility] [address] [place] [id number] [address] [place] [address] Oct, [facility] [address] [place] [id number] [address] [place] [address] Oct, Toothache K08.8 [facility] [address] [place] [id number] [place] [id number] Oct, 2015 Dental examination Z01.20 [place] [address] [facility] [id number] [address] [place] [address] 02 Oct, 2015 [place] [address] [facility] [id number] [address] [place] [address] Sep, [place] [address] [place] [id number] [address] [place] [address] Sep, Burning with urination R30.0 [place] [address] [facility] [id number] [address] [place] [address] Sep, Hematuria R31.9 ; Rheumatoid arthritis involving multiple sites with positive rheumatoid factor M05.89 and Rheumatoid arthritis flare M06.9 [place] [address] [place] [id number] [place] [address] Aug, Hyperlipidemia, unspecified hyperlipidemia E78.5 and Hematuria R31.9 [place] [address] [place] [address] Aug, Hematuria R31.9 ; Chronic ki dney disease, stage 1 N18.1 and Hyperlipidemia, unspecified hyperlipidemia E78.5 [place] [address] [place] [id number] [address] [place] [address] Aug, Rheumatoid arthritis involvi ng multiple sites with positive rheumatoid factor M05.89 ; Asthma exacerbation J45.901 ; Hematuria R31.9 ; Hyperlipidemia, unspecified hyperlipidemia E78.5 and Chronic kidney disease, stage 1 N18.1 [place] [address] [facility] [id number] [address] [place] [address] Aug, [place] [address] [place] [id number] [address] [place] [address] Jul, [place] [address] [place] [id number] [place] [address] Jul, Lumbosacral radiculopathy M5 4.17 [place] [address] [place] [id number] [address] [place] [address] Jul, [facility] [address] [id number] [address] [place] [address] Jun, Rheumatoid arthritis involvi ng multiple sites with positive rheumatoid factor M05.89 ; Hyperlipidemia, unspecified hyperlipidemia E78.5 ; Lumbosacral radiculopathy M54.17 ; Carpal tunnel syndrome, right upper limb G56.01 and Carpal tunnel syndrome, left upper limb G56.02 [facility] [address] [id number] [address] [place] [address] Jun, [facility] [address] [id number] [address] [place] [address] May, Lumbar radicular pain 724.4 and Dysuria 788.1 [facility] [address] [facility] [id number] [address] [place] [address] May, Rheumatoid arthritis 714.0 ; Lumbar radicular pain 724.4 ; Burn 949.0 and Thoracic back pain 724.1 [facility] [address] [facility] [id number] [address] [place] [address] May, [facility] [address] [id number] [address] [place] [address] May, [facility] [address] [facility] [id number] [address] [place] [address] Apr, [facility] [address] [id number] [address] [place] [address] Mar, Hyperlipidemia 272.4 [facility] [address] [facility] [id number] [address] [place] [address] Mar, [facility] [address] [id number] [address] [place] [address] Mar, [facility] [address] [facility] [id number] [address] [place] [address] Mar, Diarrhea 787.91 ; Chronic ki dney disease, unspecified 585.9 ; Hyperlipidemia 272.4 and Asthma 493.90 [facility] [address] [id number] [address] [place] [address], [place] [address] Mar, [facility] [address] [id number] [address] [place] [address] Mar, Gastroenteritis 558.9 [facility] [address] [id number] [address] [place] [address], [place] [address] Feb, [facility] [address] [id number] [address] [place] [address] January, [facility] [address] [id number] [address] [place] [address], [place] [address] January, [facility] [address] [id number] [address] [place] [address] Dec, [facility] [address] [id number] [address] [place] [address] Dec, [facility] [address] [id number] [address] [place] [address] Nov, [facility] [address] [address] [id number] [address] [place] [id number] Nov, [facility] [address] [id number] [address] [place] [id number] Nov, [facility] [address] [id number] [address] [place] [id number] Nov, [facility] [address] [id number] [address] [place] [id number] Nov, [facility] [address] [id number] [address] [place] [id number] Nov, [facility] [address] [id number] [address] [place] [id number] Oct, [facility] [address] [id number] [address] [place] [id number] Oct, [facility] [address] [id number] [address] [place] [address], [place] [id number] Sep, [facility] [address] [id number] [address] [place] [address], [place] [id number] Sep, [facility] [address] [id number] [address] [place] [address], [place] [id number] Sep, [facility] [address] [id number] [address] [place] [address], [place] [id number] Sep, [facility] [address] [id number] [address] [place] [address], [place] [id number] Sep, [facility] [address] [id number] [address] [place] [address], [place] [id number] Sep, [facility] [address] [id number] [address] [place] [address], [place] [id number] Aug, [facility] [address] [id number] [address] [place] [address], [place] [id number] Aug, [facility] [address] [id number] [address] [place] [address], [place] [id number] Aug, [facility] [address] [id number] [address] [place] [address], [place] [id number] Aug, [facility] [address] [id number] [address] [place] [address], [place] [id number] Jul, [facility] [address] [id number] [address] [place] [address], [place] [id number] Jul, [facility] [address] [id number] [address] [place] [address], [place] [id number] Jul, [facility] [address] [id number] [address] [place] [address], [place] [id number] Jul, [facility] [address] [id number] [address] [place] [address], [place] [id number] Jul, [facility] [address] [id number] [address] [place] [address], [place] [id number] Jul, [facility] [address] [id number] [address] [place] [address], [place] [id number] Jul, [facility] [address] [id number] [address] [place] [address], [place] [id number] Jul, [facility] [address] [id number] [address] [place] [address], [place] [id number] Jul, [facility] [address] [id number] [address] [place] [address], [place] [id number] Jun, [facility] [address] [id number] [address] [place] [address], [place] [id number] Jun, [facility] [address] [id number] [address] [place] [address], [place] [id number] 15 Jun, 2014 [facility] [address] [id number] [address] [place] [address], [place] [id number] 25 May, 2014 [facility] [address] [id number] [address] [place] [address], [place] [id number] 25 May, 2013 [facility] [address] [id number] [address] [place] [address], [place] [id number] 24 May, 2013 [facility] [address] [id number] [address] [place] [address], [place] [id number] 24 May, 2013 [facility] [address] [id number] [address] [place] [address], [place] [id number] 24 Sep, 2013 [facility] [address] [id number] [address] [place] [address], [place] [id number] 24 Sep, 2013 [facility] [address] [id number] [address] [place] [address], [place] [id number] 19 May, 2013 [facility] [address] [id number] [address] [place] [address], [place] [id number] 19 Sep, 2013 [facility] [address] [id number] [address] [place] [address], [place] [id number] 11 May, 2013 [facility] [address] [id number] [address] [place] [id number] 11 May, 2014 [facility] [address] [id number] [address] [place] [id number] May, [facility] [address] [id number] [address] [place] [id number] May, [facility] [address] [id number] [address] [place] [id number] May, [facility] [address] [id number] [address] [place] [id number] May, [facility] [address] [id number] [address] [place] [id number] May, [facility] [address] [id number] [address] [place] [id number] May, [facility] [address] [id number] [address] [place] [id number] Apr, [facility] [address] [id number] [address] [place] [id number] Apr, [facility] [address] [id number] [address] [place] [id number] Aug, [facility] [address] [id number] [address] [place] [id number] Jul, IMMUNIZATIONS No Known Immunizations SOCIAL HISTORY [...]
--- OUTSIDE RECORDS SUMMARY | 2020-02-27 15:42 | XMS REPORT ---
Author Author Beba CORBIN [facility] Address [address] [place] [address] Care Team Providers Care Certified Orthotist Practice Manager Name Role Phone EMERALD EDWARD Unavailable PROBLEMS Type Condition ICD9-CM Code OPP22-CF Code Onset Dates Condition S tatus SNOMED Code Problem Essential hypertension I10 Active 94787844 Problem Chronic constipation K59.00 Active 488663896 Problem Atrophy of left kidney N26.1 Active 067219619 Problem Vitamin D deficiency E55.9 Active 84112951 Problem Colon wall thickening K63.9 Active 747285414 Problem Chronic prescription opiate use Z79.899 Active 806752501 Problem Gastroesophageal reflux disease, esophagitis pre sence not specified K21.9 Active 242493459 Problem Hyperlipidemia, unspecified hyperlipidemia E78.5 Active 29015276 Problem Bladder wall thickening N32.89 Active 422295003 Problem Chronic pain syndrome G89.4 Active 357199099 Problem Asthma exacerbation J45.901 Active 057621547 Problem Severe episode of recurrent major depressive disorder, without psychotic features F33.2 Active 76641200 Problem Dependence on supplemental oxygen Z99.81 Active 800065022733 Problem Moderate persistent asthma with acute exacerbation J45.41 Active [id number] Problem Rheumatoid arthritis involvi ng multiple sites with positive rheumatoid factor M05.89 Active 481913505 Problem Chronic respiratory failure with hypoxia J96.11 Active 326277603 Problem Osteoporosis M81.0 Active 6728134 6 Problem Pernicious anemia D51.0 Active 84 734580 Problem Chronic kidney disease, stage 1 N18.1 Active 563703753 Problem Generalized anxiety disorder F41.1 A ctive 48138131 Problem Moderate persistent asthma without complication J4 5.40 Active 131534214 Problem Lumbago with sciatica, left side M54.42 Active 703198815 Problem Lumbago with sciatica, right side M54.41 Active [id number] ALLERGIES No Information ENCOUNTERS Encounter Location Date Diagnosis [facility] [address] [facility] [id number] [address] [place] [phone] Mar, Dizziness R42 and Nausea and vomiting, intractability of vomiting not specified, unspecified vomiting type R11.2 [facility] [address] [facility] [id number] [address] [place] [address] Feb, Chronic pain syndrome G89.[address] [address] January, Chronic pain syndrome G89.4 [facility] [address] [facility] [id number] [address] [place] [phone] Dec, [facility] [address] [facility] [id number] [address] [place] [phone] Dec, [facility] [address] [place] [id number] [address] [place] [address] Dec, Asthma exacerbation J45.901 ; Essential hypertension I10 ; Hyperlipidemia, unspecified hyperlipidemia E78.5 ; Rheumatoid arthritis involving multiple sites with positive rheumatoid factor M05.89 ; Chronic pain syndrome G89.4 ; Chronic kidney disease, stage 1 N18.1 ; Chronic respiratory failure with hypoxia J96.11 and Dependence on supplemental oxygen Z99.81 [facility] [address] [facility] [id number] [address] [place] [phone] Dec, Chronic pain syndrome G89.4 [facility] [address] [facility] [id number] [address] [place] [address] Nov, Chronic pain syndrome G89.4 [facility] [address] [facility] [id number] [address] [place] [phone] Nov, [facility] [address] [place] [id number] [address] [place] [phone] 15 Oct, 2018 Chronic pain syndrome G89.4 [facility] [address] [facility] [id number] [address] [place] [phone] Oct, [facility] [address] [place] [id number] [address] [place] [address] 11 Oct, 2018 Viral upper respiratory trac t infection J06.9 ; Chronic constipation K59.00 ; Severe episode of recurrent major depressive disorder, without psychotic features F33.2 ; Moderate persistent asthma with acute exacerbation J45.41 ; Essential hypertension I10 ; Gastroesophageal reflux disease, esophagitis presence not specified K21.9 and Hyperlipidemia, unspecified hyperlipidemia E78.5 [place] [id number] [phone] 05 Oct, 2018 [place] [address] [address] Sep, Chronic pain syndrome G89.4 [place] [address] [address] Sep, Rheumatoid arthritis involvi ng multiple sites with positive rheumatoid factor M05.89 ; Chronic constipation K59.00 ; Gastroesophageal reflux disease, esophagitis presence not specified K21.9 ; Asthma exacerbation J45.901 ; Severe episode of recurrent major depressive disorder, without psychotic features F33.2 ; Ganglion cyst M67.40 and Chronic prescription opiate use Z79.899 [facility] [address] [address] Aug, Cough R05 and Moderate persi stent asthma with acute exacerbation J45.41 [facility] [address] [address] Aug, Chronic pain syndrome G89.4 [facility] [address] [place] [id number] [place] [phone] Jul, Chronic pain syndrome G89.4 [facility] [address] [address] Jul, Acute nasopharyngitis J00 [facility] [address] [place] [id number] [place] [address] Jun, [facility] [address] [address] Jun, Chronic pain syndrome G89.4 [facility] [address] [id number] [address] [place] [address] 21 May, 2018 Chronic pain syndrome G89.4 [facility] [address] [id number] [address] [place] [phone] 14 May, 2018 [facility] [address] [id number] [address] [place] [phone] May, [facility] [address] [id number] [address] [place] [address] May, Moderate persistent asthma w ith acute exacerbation J45.41 and Rheumatoid arthritis involving multiple sites with positive rheumatoid factor M05.89 [place] [address] [id number] [address] [place] [address] May, Moderate persistent asthma w ith acute exacerbation J45.41 and Hypoxia R09.02 [facility] [address] [facility] [id number] [address] [place] [address] Apr, Chronic pain syndrome G89.4 [facility] [address] [facility] [id number] [address] [place] [phone] Mar, High ankle sprain of right l ower extremity, subsequent encounter S93.431D ; Lumbago with sciatica, left side M54.42 and Lumbago with sciatica, right side M54.41 [facility] [address] [facility] [id number] [address] [place] [address] Mar, [facility] [address] [id number] [address] [place] [address] Mar, Chronic pain syndrome G89.4 [facility] [address] [facility] [id number] [address] [place] [phone] Mar, [facility] [address] [facility] [id number] [address] [place] [address] Mar, Asthma exacerbation J45.901 and Sprain of right ankle, unspecified ligament, subsequent encounter S93.401D [facility] [address] [place] [id number] [address] [place] [address] 30 Feb, 2018 Injury of right ankle, initi al encounter S99.911A [facility] [address] [place] [id number] [address] [place] [address] Feb, Chronic pain syndrome G89.4 [facility] [address] [address] Feb, Chronic pain syndrome G89.4 [facility] [address] [place] [id number] [place] [address] Feb, Moderate persistent asthma w ith acute exacerbation J45.41 and Persistent cough for 3 weeks or longer R05 [facility] [address] [place] [id number] [place] [address] January, [place] [address] [address] January, Moderate persistent asthma w ith acute exacerbation J45.41 [place] [address] [address] January, Chronic pain syndrome G89.4 [facility] [address] [address] January, Tachycardia R00.0 and Modera te persistent asthma with acute exacerbation J45.41 [place] [address] [address] January, Tachycardia R00.0 ; Moderate persistent asthma with acute exacerbation J45.41 ; Gastroesophageal reflux disease, esophagitis presence not specified K21.9 ; Hyperlipidemia, unspecified hyperlipidemia E78.5 and Chronic pain syndrome G89.4 [facility] [address] [place] [id number] [address] [place] [phone] Dec, Medicare annual wellness vis it, initial [...] immunization Z23 and Chronic pain syndrome G89.4 [facility] [address] [address] Dec, Chronic pain syndrome G89.4 [place] [address] [address] Dec, [place] [address] [address] Nov, [place] [address] [address] Nov, Chronic pain syndrome G89.4 [place] [address] [address] Oct, Chronic pain syndrome G89.4 [place] [address] [address] Oct, Chronic kidney disease, stag e 1 N18.1 [place] [address] [address] 07 Oct, 2017 Chronic prescription opiate use Z79.899 ; Cough R05 ; Asthma exacerbation J45.901 ; Elevated liver enzymes R74.8 ; Rheumatoid arthritis involving multiple sites with positive rheumatoid factor M05.89 and Chronic pain syndrome G89.4 [place] [address] [address] Sep, Chronic pain syndrome G89.4 [place] [address] [address] Sep, [place] [address] [address] Aug, Acute bronchitis, unspecifie d organism J20.9 [place] [address] [place] [id number] [address] [place] [address] Aug, Chronic pain syndrome G89.4 [facility] [address] [address] Jul, Chronic pain syndrome G89.4 [facility] [address] [address] Jun, Chronic pain syndrome G89.4 [facility] [address] [address] 29 May, 2017 Rheumatoid arthritis involvi ng multiple sites with positive rheumatoid factor M05.89 [place] [address] [address] 26 May, 2017 Gastroesophageal reflux dise ase, esophagitis presence not specified K21.9 and Chronic pain syndrome G89.4 [place] [address] [address] May, [place] [address] [address] May, Esophageal candidiasis B37.8 1 and Chronic kidney disease, stage 1 N18.1 [place] [address] [address] 11 May, 2017 Chronic kidney disease, stag e 1 N18.1 [place] [address] [address] 05 May, 2017 Cough R05 ; Fever, unspecifi ed fever cause R50.9 ; Rheumatoid arthritis involving multiple sites with positive rheumatoid factor M05.89 and Chronic prescription opiate use Z79.899 [place] [address] [address] Apr, [place] [address] [address] Apr, Cough R05 [place] [address] [address] Apr, Asthma exacerbation J45.901 [facility] [address] [facility] [id number] [address] [place] [phone] Apr, [facility] [address] [facility] [id number] [address] [place] [address] Apr, Generalized anxiety disorder F41.1 and Severe episode of recurrent major depressive disorder, without psychotic features F33.2 [facility] [address] [place] [id number] [address] [place] [phone] Mar, [facility] [address] [facility] [id number] [address] [place] [phone] Feb, Chronic pain syndrome G89.4 [place] [address] [place] [id number] [address] [place] [address] Feb, Acute non-recurrent maxillar y sinusitis J01.00 [place] [address] [place] [id number] [address] [place] [address] Feb, Acute non-recurrent frontal sinusitis J01.10 [place] [address] [facility] [id number] [address] [place] [address] Feb, Chronic pain syndrome G89.4 [place] [address] [place] [id number] [place] [address] January, Acute cystitis with hematuri a N30.01 [place] [address] [place] [id number] [address] [place] [address] January, Acute cystitis with hematuri a N30.01 ; Dysuria R30.0 and Moderate persistent asthma with acute exacerbation J45.41 [place] [address] [facility] [id number] [address] [place] [address] January, [place] [address] [place] [id number] [address] [place] [address] January, Chronic pain syndrome G89.4 [place] [address] [place] [id number] [place] [address] January, Asthma exacerbation J45.901 [place] [address] [address] January, Asthma exacerbation J45.901 [place] [address] [address] Dec, Cough R05 ; Numbness in both hands R20.0 ; Ground glass opacity present on imaging of lung R91.8 ; Hypoxia R09.02 and Asthma exacerbation J45.901 [place] [address] [address] Dec, Chronic pain syndrome G89.4 [place] [address] [address] Nov, Chronic prescription opiate use Z79.899 ; Rheumatoid arthritis involving multiple sites with positive rheumatoid factor M05.89 ; Moderate persistent asthma with acute exacerbation J45.41 ; Pneumonia of right lower lobe due to infectious organism J18.1 ; Chronic pain syndrome G89.4 ; Gastroesophageal reflux disease, esophagitis presence not specified K21.9 and Hyperlipidemia, unspecified hyperlipidemia E78.5 [place] [address] [address] Nov, Rheumatoid arthritis involvi ng multiple sites with positive rheumatoid factor M05.89 [place] [address] [address] Oct, [place] [address] [address] Oct, Essential hypertension I10 [place] [address] [address] Sep, Hypoxia R09.02 and Ground gl ass opacity present on imaging of lung R91.8 [place] [address] [place] [id number] [address] [place] [address] Sep, Moderate persistent asthma w ith acute exacerbation J45.41 [facility] [address] [place] [id number] Sep, [facility] [address] [id number] [address] [place] [address] Sep, Chronic constipation K59.00 and Moderate persistent asthma with acute exacerbation J45.41 [facility] [address] [id number] [address] [place] [address] Sep, Moderate persistent asthma w ith acute exacerbation J45.41 [facility] [address] [id number] [address] [place] [address] Aug, [facility] [address] [id number] [address] [place] [phone] Aug, [facility] [address] [facility] [id number] [address] [place] [address] Aug, [facility] [address] [facility] [id number] [address] [place] [address] Aug, Rheumatoid arthritis involvi ng multiple sites with positive rheumatoid factor M05.89 ; Essential hypertension I10 ; Hyperlipidemia, unspecified hyperlipidemia E78.5 ; Chronic constipation K59.00 and Moderate persistent asthma with acute exacerbation J45.41 [facility] [address] [facility] [id number] [address] [place] [address] Aug, Bronchitis J40 [facility] [address] [facility] [id number] [address] [place] [address] Aug, Rheumatoid arthritis involvi ng multiple sites with positive rheumatoid factor M05.89 [facility] [address] [id number] [address] [place] [address] Aug, Pharyngitis, unspecified pablito ology J02.9 and Acute nasopharyngitis J00 [facility] [address] [facility] [id number] [address] [place] [phone] Aug, [facility] [address] [facility] [id number] [address] [place] [address] Jul, [facility] [address] [address] Jul, Rheumatoid arthritis involvi ng multiple sites with positive rheumatoid factor M05.89 ; Essential hypertension I10 ; Hyperlipidemia, unspecified hyperlipidemia E78.5 ; Rash R21 ; Mild persistent asthma with acute exacerbation J45.31 ; Hematuria R31.9 ; Osteoporosis M81.0 and Gastroesophageal reflux disease, esophagitis presence not specified K21.9 [facility] [address] [place] [address] Jun, [facility] [address] [place] [id number] [place] [address] Jun, Dysuria R30.0 [facility] [address] [place] [id number] [place] [address] Jun, Acute non-recurrent maxillar y sinusitis J01.00 and Dysuria R30.0 [facility] [address] [address] May, [facility] [address] [address] May, [facility] [address] [address] Apr, Chronic prescription opiate use Z79.899 and Rheumatoid arthritis involving multiple sites with positive rheumatoid factor M05.89 [facility] [address] [address] Mar, [facility] [address] [address] Feb, Dizziness of unknown cause R 42 and Other chronic pain G89.29 [place] [address] [address] Feb, [place] [address] [address] Feb, Shortness of breath R06.02 [facility] [address] [address] January, [facility] [address] [place] [id number] [place] [address] January, Rheumatoid arthritis involvi ng multiple sites with positive rheumatoid factor M05.89 ; Chronic prescription opiate use Z79.899 ; Hyperlipidemia, unspecified hyperlipidemia E78.5 ; Cough R05 ; Exposure to pneumonia Z20.828 ; Diarrhea, unspecified type R19.7 ; Weight loss R63.4 ; Lumbago with sciatica, right side M54.41 and Lumbago with sciatica, left side M54.42 [facility] [address] [address] Dec, [facility] [address] [place] [id number] [place] [address] Dec, Bronchitis J40 [facility] [address] [address] Nov, [facility] [address] [place] [id number] [address] [place] [address] Nov, [facility] [address] [address] Nov, [facility] [address] [place] [id number] [place] [address] Nov, Bloody diarrhea R19.7 ; [place] n wall thickening K63.9 ; Shortness of breath R06.02 and Bladder wall thickening N32.89 [facility] [address] [place] [id number] [place] [id number] Oct, Dental examination Z01.20 [facility] [address] [place] [id number] [place] [address] Oct, [facility] [address] [place] [id number] [place] [address] Oct, Toothache K08.8 [facility] [address] [place] [id number] [place] [id number] 11 Oct, 2015 Dental examination Z01.20 [place] [address] [facility] [id number] [address] [place] [phone] 02 Oct, 2015 [place] [address] [facility] [id number] [address] [place] [address] Sep, [place] [address] [place] [id number] [place] [address] Sep, Burning with urination R30.0 [place] [address] [facility] [id number] [address] [place] [address] Sep, Hematuria R31.9 ; Rheumatoid arthritis involving multiple sites with positive rheumatoid factor M05.89 and Rheumatoid arthritis flare M06.9 [place] [address] [place] [id number] [place] [address] Aug, Hyperlipidemia, unspecified hyperlipidemia E78.5 and Hematuria R31.9 [place] [address] [place] [address] Aug, Hematuria R31.9 ; Chronic ki dney disease, stage 1 N18.1 and Hyperlipidemia, unspecified hyperlipidemia E78.5 [place] [address] [place] [id number] [place] [address] Aug, Rheumatoid arthritis involvi ng multiple sites with positive rheumatoid factor M05.89 ; Asthma exacerbation J45.901 ; Hematuria R31.9 ; Hyperlipidemia, unspecified hyperlipidemia E78.5 and Chronic kidney disease, stage 1 N18.1 [place] [address] [facility] [id number] [address] [place] [phone] Aug, [place] [address] [place] [id number] [place] [address] Jul, [place] [address] [place] [id number] [place] [phone] Jul, Lumbosacral radiculopathy M5 4.17 [place] [address] [place] [id number] [place] [phone] Jul, [facility] [address] [id number] [address] [place] [phone] Jun, Rheumatoid arthritis involvi ng multiple sites with positive rheumatoid factor M05.89 ; Hyperlipidemia, unspecified hyperlipidemia E78.5 ; Lumbosacral radiculopathy M54.17 ; Carpal tunnel syndrome, right upper limb G56.01 and Carpal tunnel syndrome, left upper limb G56.02 [facility] [address] [id number] [address] [place] [address] Jun, [facility] [address] [id number] [address] [place] [phone] May, Lumbar radicular pain 724.4 and Dysuria 788.1 [facility] [address] [facility] [id number] [address] [place] [phone] May, Rheumatoid arthritis 714.0 ; Lumbar radicular pain 724.4 ; Burn 949.0 and Thoracic back pain 724.1 [facility] [address] [facility] [id number] [address] [place] [phone] May, [facility] [address] [id number] [address] [place] [phone] May, [facility] [address] [facility] [id number] [address] [place] [phone] Apr, [facility] [address] [id number] [place] [id number] Mar, Hyperlipidemia 272.4 [facility] [address] [facility] [id number] [address] [place] [id number] Mar, [facility] [address] [id number] [address] [place] [phone] Mar, [facility] [address] [facility] [id number] [address] [place] [id number] Mar, Diarrhea 787.91 ; Chronic ki dney disease, unspecified 585.9 ; Hyperlipidemia 272.4 and Asthma 493.90 [facility] [address] [id number] [address] [place] [address], [place] [id number] Mar, [facility] [address] [id number] [address] [place] [phone] Mar, Gastroenteritis 558.9 [facility] [address] [id number] [address] [place] [address], [place] [id number] Feb, [facility] [address] [id number] [address] [place] [id number] January, [facility] [address] [id number] [address] [place] [address], [place] [id number] January, [facility] [address] [id number] [address] [place] [phone] Dec, [facility] [address] [id number] [address] [place] [id number] Dec, [facility] [address] [id number] [address] [place] [phone] Nov, [facility] [address] [id number] [address] [place] [phone] Nov, [facility] [address] [id number] [address] [place] [phone] Nov, [facility] [address] [id number] [address] [place] [phone] Nov, [facility] [address] [id number] [address] [place] [phone] Nov, [facility] [address] [id number] [address] [place] [id number] Nov, [facility] [address] [id number] [address] [place] [id number] Oct, [facility] [address] [id number] [address] [place] [phone] Oct, [facility] [address] [id number] [address] [place] [address], [place] [id number] Sep, [facility] [address] [id number] [address] [place] [address], [place] [id number] Sep, [facility] [address] [id number] [address] [place] [address], [place] [id number] Sep, [facility] [address] [id number] [address] [place] [address], [place] [id number] Sep, [facility] [address] [id number] [address] [place] [address], [place] [id number] Sep, [facility] [address] [id number] [address] [place] [address], [place] [id number] Sep, [facility] [address] [id number] [address] [place] [address], [place] [id number] Aug, [facility] [address] [id number] [address] [place] [address], [place] [id number] Aug, [facility] [address] [id number] [address] [place] [address], [place] [id number] Aug, [facility] [address] [id number] [address] [place] [address], [place] [id number] Aug, [facility] [address] [id number] [address] [place] [address], [place] [id number] Jul, [facility] [address] [id number] [address] [place] [address], [place] [id number] Jul, [facility] [address] [id number] [address] [place] [address], [place] [id number] Jul, [facility] [address] [id number] [address] [place] [address], [place] [id number] Jul, [facility] [address] [id number] [address] [place] [address], [place] [address] Jul, [facility] [address] [id number] [address] [place] [address], [place] [id number] Jul, [facility] [address] [id number] [address] [place] [address], [place] [address] Jul, [facility] [address] [id number] [address] [place] [address], [place] [id number] Jul, [facility] [address] [id number] [address] [place] [address], [place] [id number] Jul, [facility] [address] [id number] [address] [place] [address], [place] [id number] Jun, [facility] [address] [id number] [address] [place] [address], [place] [address] Jun, [facility] [address] [id number] [address] [place] [address], [place] [id number] 15 Jun, 2014 [facility] [address] [id number] [address] [place] [address], [place] [id number] 25 May, 2014 [facility] [address] [id number] [address] [place] [address], [place] [id number] 25 May, 2013 [facility] [address] [id number] [address] [place] [address], [place] [id number] 24 May, 2013 [facility] [address] [id number] [address] [place] [address], [place] [address] 24 May, 2013 [facility] [address] [id number] [address] [place] [address], [place] [address] 24 Sep, 2013 [facility] [address] [id number] [address] [place] [address], [place] [address] 24 Sep, 2013 [facility] [address] [id number] [address] [place] [address], [place] [id number] 19 May, 2013 [facility] [address] [id number] [address] [place] [address], [place] [id number] 19 Sep, 2013 [facility] [address] [id number] [address] [place] [address], [place] [id number] 11 May, 2013 [facility] [address] [id number] [address] [place] [id number] 11 May, 2014 [facility] [address] [id number] [address] [place] [phone] May, [facility] [address] [id number] [address] [place] [phone] May, [facility] [address] [id number] [address] [place] [phone] May, [facility] [address] [id number] [address] [place] [phone] May, [facility] [address] [id number] [address] [place] [phone] May, [facility] [address] [id number] [address] [place] [phone] May, [facility] [address] [id number] [address] [place] [phone] Apr, [facility] [address] [id number] [address] [place] [phone] Apr, [facility] [address] [id number] [address] [place] [phone] Aug, [facility] [address] [id number] [address] [place] [id number] Jul, IMMUNIZATIONS No Known Immunizations SOCIAL HISTORY [...]
--- OUTSIDE RECORDS SUMMARY | 2020-02-27 15:43 | XMS REPORT ---
Author Author Beba Díaz Doctor Organization [facility] Address Unknown Phone Unavailable Care Team Providers Care Calibrator Barometers Name Role Phone Migration, Doctor Unavailable Unavailable PROBLEMS Type Condition ICD9-CM Code [id number] Code Onset Dates Condition S tatus SNOMED Code Problem Essential hypertension I10 Active 49962690 Problem Chronic constipation K59.00 Active 794773989 Problem Atrophy of left kidney N26.1 Active 270668180 Problem Vitamin D deficiency E55.9 Active 61772728 Problem Colon wall thickening K63.9 Active 341585509 Problem Chronic prescription opiate use Z79.899 Active 779109361 Problem Gastroesophageal reflux disease, esophagitis pre sence not specified K21.9 Active 698529226 Problem Hyperlipidemia, unspecified hyperlipidemia E78.5 Active 46593005 Problem Bladder wall thickening N32.89 Active 851703903 Problem Chronic pain syndrome G89.4 Active 982003417 Problem Asthma exacerbation J45.901 Active 877446679 Problem Severe episode of recurrent major depressive disorder, without psychotic features F33.2 Active 68188674 Problem Dependence on supplemental oxygen Z99.81 Active 559684211616 Problem Moderate persistent asthma with acute exacerbation J45.41 Active 325769357521723 Problem Rheumatoid arthritis involvi ng multiple sites with positive rheumatoid factor M05.89 Active 636722776 Problem Chronic respiratory failure with hypoxia J96.11 Active 645216653 Problem Osteoporosis M81.0 Active 4433792 6 Problem Pernicious anemia D51.0 Active 84 401045 Problem Chronic kidney disease, stage 1 N18.1 Active 436323814 Problem Generalized anxiety disorder F41.1 A ctive 65167523 Problem Moderate persistent asthma without complication J4 5.40 Active 473253261 Problem Lumbago with sciatica, left side M54.42 Active 230432485 Problem Lumbago with sciatica, right side M54.41 Active [id number] ALLERGIES Substance Reaction Event Type Date Status Codeine Unknown Drug Allergy Dec, Active Ivp Dye Unknown Non Drug Allergy Dec, Active Penicillins Cannot tolerate oral PCN. States she lo s fine with injections. Non Drug Allergy Dec, Active Orencia Unknown Drug Allergy Dec, Active Cipro Unknown Drug Allergy Dec, Active ENCOUNTERS Encounter Location Date Diagnosis [facility] [address] [id number] [address] [place] [address] Feb, Chronic pain syndrome G89.[address] [address] January, Chronic pain syndrome G89.4 [facility] [address] [facility] [id number] [address] [place] [address] Dec, [facility] [id number] [place] [address] Dec, [facility] [id number] [place] [address] Dec, Asthma exacerbation J45.901 ; Essential hypertension I10 ; Hyperlipidemia, unspecified hyperlipidemia E78.5 ; Rheumatoid arthritis involving multiple sites with positive rheumatoid factor M05.89 ; Chronic pain syndrome G89.4 ; Chronic kidney disease, stage 1 N18.1 ; Chronic respiratory failure with hypoxia J96.11 and Dependence on supplemental oxygen Z99.81 [facility] [id number] [place] [address] Dec, Chronic pain syndrome G89.4 [facility] [id number] [place] [address] Nov, Chronic pain syndrome G89.4 [facility] [id number] [place] [address] Nov, [facility] [id number] [place] [address] Oct, Chronic pain syndrome G89.4 [facility] [id number] [place] [address] Oct, [facility] [id number] [place] [address] Oct, Viral upper respiratory trac t infection J06.9 ; Chronic constipation K59.00 ; Severe episode of recurrent major depressive disorder, without psychotic features F33.2 ; Moderate persistent asthma with acute exacerbation J45.41 ; Essential hypertension I10 ; Gastroesophageal reflux disease, esophagitis presence not specified K21.9 and Hyperlipidemia, unspecified hyperlipidemia E78.5 [facility] [address] [place] [address] Oct, [facility] [address] [address] Sep, Chronic pain syndrome G89.4 [place] [address] [address] Sep, Rheumatoid arthritis involvi ng multiple sites with positive rheumatoid factor M05.89 ; Chronic constipation K59.00 ; Gastroesophageal reflux disease, esophagitis presence not specified K21.9 ; Asthma exacerbation J45.901 ; Severe episode of recurrent major depressive disorder, without psychotic features F33.2 ; Ganglion cyst M67.40 and Chronic prescription opiate use Z79.899 [facility] [address] [address] Aug, Cough R05 and Moderate persi stent asthma with acute exacerbation J45.41 [facility] [id number] [place] [address] Aug, Chronic pain syndrome G89.4 [facility] [address] [place] [address] Jul, Chronic pain syndrome G89.4 [facility] [id number] [place] [address] Jul, Acute nasopharyngitis J00 [facility] [address] [place] [address] Jun, [facility] [id number] [place] [address] Jun, Chronic pain syndrome G89.4 [place] [address] [id number] [address] [place] [address] 21 May, 2018 Chronic pain syndrome G89.4 [facility] [address] [id number] [address] [place] [address] 14 May, 2018 [facility] [address] [facility] [id number] [address] [place] [address] 13 May, 2018 [facility] [address] [id number] [address] [place] [address] May, Moderate persistent asthma w ith acute exacerbation J45.41 and Rheumatoid arthritis involving multiple sites with positive rheumatoid factor M05.89 [facility] [address] [facility] [id number] [address] [place] [address] May, Moderate persistent asthma w ith acute exacerbation J45.41 and Hypoxia R09.02 [facility] [address] [facility] [id number] [address] [place] [address] Apr, Chronic pain syndrome G89.4 [facility] [address] [facility] [id number] [address] [place] [address] Mar, High ankle sprain of right l ower extremity, subsequent encounter S93.431D ; Lumbago with sciatica, left side M54.42 and Lumbago with sciatica, right side M54.41 [facility] [address] [facility] [id number] [address] [place] [address] Mar, [facility] [address] [facility] [id number] [address] [place] [address] Mar, Chronic pain syndrome G89.4 [facility] [address] [id number] [address] [place] [address] Mar, [facility] [address] [facility] [id number] [address] [place] [address] Mar, Asthma exacerbation J45.901 and Sprain of right ankle, unspecified ligament, subsequent encounter S93.401D [facility] [address] [facility] [address] [place] [address] 30 Feb, 2018 Injury of right ankle, initi al encounter S99.911A [place] [address] [address] Feb, Chronic pain syndrome G89.4 [place] [address] [address] Feb, Chronic pain syndrome G89.4 [place] [address] [address] Feb, Moderate persistent asthma w ith acute exacerbation J45.41 and Persistent cough for 3 weeks or longer R05 [place] [address] [address] January, [place] [address] [address] January, Moderate persistent asthma w ith acute exacerbation J45.41 [place] [address] [address] January, Chronic pain syndrome G89.4 [place] [address] [address] January, Tachycardia R00.0 and Modera te persistent asthma with acute exacerbation J45.41 [place] [address] [address] January, Tachycardia R00.0 ; Moderate persistent asthma with acute exacerbation J45.41 ; Gastroesophageal reflux disease, esophagitis presence not specified K21.9 ; Hyperlipidemia, unspecified hyperlipidemia E78.5 and Chronic pain syndrome G89.4 [place] [address] [id number] [address] [place] [address] Dec, Medicare annual wellness vis it, initial [...] immunization Z23 and Chronic pain syndrome G89.4 [place] [address] [address] Dec, Chronic pain syndrome G89.4 [place] [address] [address] Dec, [place] [address] [address] Nov, [address] [address] Nov, Chronic pain syndrome G89.4 [place] [address] [address] Oct, Chronic pain syndrome G89.4 [place] [address] [address] 08 Oct, 2017 Chronic kidney disease, stag e [address] [address] 07 Oct, 2017 Chronic prescription opiate use Z79.899 ; Cough R05 ; Asthma exacerbation J45.901 ; Elevated liver enzymes R74.8 ; Rheumatoid arthritis involving multiple sites with positive rheumatoid factor M05.89 and Chronic pain syndrome G89.4 [place] [address] [address] Sep, Chronic pain syndrome G89.4 [place] [address] [address] Sep, [place] [address] [address] Aug, Acute bronchitis, unspecifie d organism J20.[address] [address] Aug, Chronic pain syndrome G89.4 [facility] [address] [facility] [id number] [address] [place] [address] Jul, Chronic pain syndrome G89.4 [facility] [address] [facility] [id number] [address] [place] [address] Jun, Chronic pain syndrome G89.4 [facility] [address] [facility] [id number] [address] [place] [address] 29 May, 2017 Rheumatoid arthritis involvi ng multiple sites with positive rheumatoid factor M05.89 [facility] [address] [facility] [id number] [address] [place] [address] 26 May, 2017 Gastroesophageal reflux dise ase, esophagitis presence not specified K21.9 and Chronic pain syndrome G89.4 [facility] [address] [facility] [id number] [address] [place] [address] May, [place] [address] [facility] [id number] [address] [place] [address] May, Esophageal candidiasis B37.8 1 and Chronic kidney disease, stage 1 N18.1 [place] [address] [facility] [id number] [address] [place] [address] 11 May, 2017 Chronic kidney disease, stag e 1 N18.1 [place] [address] [facility] [id number] [address] [place] [address] 05 May, 2017 Cough R05 ; Fever, unspecifi ed fever cause R50.9 ; Rheumatoid arthritis involving multiple sites with positive rheumatoid factor M05.89 and Chronic prescription opiate use Z79.899 [facility] [address] [facility] [id number] [address] [place] [address] Apr, [place] [address] [facility] [id number] [address] [place] [address] Apr, Cough R05 [facility] [address] [facility] [id number] [address] [place] [address] Apr, Asthma exacerbation J45.901 [facility] [address] [id number] [address] [place] [address] Apr, [facility] [address] [id number] [address] [place] [address] Apr, Generalized anxiety disorder F41.1 and Severe episode of recurrent major depressive disorder, without psychotic features F33.2 [facility] [address] [id number] [address] [place] [address] Mar, [facility] [address] [id number] [address] [place] [address] Feb, Chronic pain syndrome G89.4 [place] [address] [id number] [address] [place] [address] Feb, Acute non-recurrent maxillar y sinusitis J01.00 [facility] [address] [id number] [address] [place] [address] Feb, Acute non-recurrent frontal sinusitis J01.10 [place] [address] [id number] [address] [place] [address] Feb, Chronic pain syndrome G89.4 [place] [address] [id number] [address] [place] [address] January, Acute cystitis with hematuri a N30.01 [facility] [address] [facility] [id number] [address] [place] [address] January, Acute cystitis with hematuri a N30.01 ; Dysuria R30.0 and Moderate persistent asthma with acute exacerbation J45.41 [facility] [address] [id number] [address] [place] [address] January, [facility] [address] [facility] [id number] [address] [place] [address] January, Chronic pain syndrome G89.4 [facility] [address] [facility] [id number] [address] [place] [address] January, Asthma exacerbation J45.901 [place] [address] [address] January, Asthma exacerbation J45.901 [place] [address] [address] Dec, Cough R05 ; Numbness in both hands R20.0 ; Ground glass opacity present on imaging of lung R91.8 ; Hypoxia R09.02 and Asthma exacerbation J45.901 [place] [address] [address] Dec, Chronic pain syndrome G89.[address] [address] Nov, Chronic prescription opiate use Z79.899 ; Rheumatoid arthritis involving multiple sites with positive rheumatoid factor M05.89 ; Moderate persistent asthma with acute exacerbation J45.41 ; Pneumonia of right lower lobe due to infectious organism J18.1 ; Chronic pain syndrome G89.4 ; Gastroesophageal reflux disease, esophagitis presence not specified K21.9 and Hyperlipidemia, unspecified hyperlipidemia E78.5 [place] [address] [address] Nov, Rheumatoid arthritis involvi ng multiple sites with positive rheumatoid factor M05.[address] [address] Oct, [address] [address] Oct, Essential hypertension I10 [address] [address] Sep, Hypoxia R09.02 and Ground gl ass opacity present on imaging of lung R91.8 [place] [address] [address] Sep, Moderate persistent asthma w ith acute exacerbation J45.41 [place] [address] [id number] Sep, [facility] [address] [id number] [address] [place] [address] Sep, Chronic constipation K59.00 and Moderate persistent asthma with acute exacerbation J45.41 [facility] [address] [id number] [address] [place] [address] Sep, Moderate persistent asthma w ith acute exacerbation J45.41 [facility] [address] [id number] [address] [place] [address] Aug, [facility] [address] [id number] [address] [place] [address] Aug, [facility] [address] [id number] [address] [place] [address] Aug, [facility] [address] [facility] [id number] [address] [place] [address] Aug, Rheumatoid arthritis involvi ng multiple sites with positive rheumatoid factor M05.89 ; Essential hypertension I10 ; Hyperlipidemia, unspecified hyperlipidemia E78.5 ; Chronic constipation K59.00 and Moderate persistent asthma with acute exacerbation J45.41 [facility] [address] [id number] [address] [place] [address] Aug, Bronchitis J40 [facility] [address] [facility] [id number] [address] [place] [address] Aug, Rheumatoid arthritis involvi ng multiple sites with positive rheumatoid factor M05.89 [facility] [address] [id number] [address] [place] [address] Aug, Pharyngitis, unspecified pablito ology J02.9 and Acute nasopharyngitis J00 [facility] [address] [facility] [id number] [address] [place] [address] Aug, [facility] [address] [facility] [id number] [address] [place] [address] Jul, [facility] [address] [facility] [id number] [address] [place] [address] Jul, Rheumatoid arthritis involvi ng multiple sites with positive rheumatoid factor M05.89 ; Essential hypertension I10 ; Hyperlipidemia, unspecified hyperlipidemia E78.5 ; Rash R21 ; Mild persistent asthma with acute exacerbation J45.31 ; Hematuria R31.9 ; Osteoporosis M81.0 and Gastroesophageal reflux disease, esophagitis presence not specified K21.9 [facility] [id number] [place] [address] Jun, [facility] [id number] [place] [address] Jun, Dysuria R30.0 [facility] [id number] [place] [address] Jun, Acute non-recurrent maxillar y sinusitis J01.00 and Dysuria R30.0 [facility] [id number] [place] [address] May, [facility] [address] [address] May, [place] [id number] [place] [address] Apr, Chronic prescription opiate use Z79.899 and Rheumatoid arthritis involving multiple sites with positive rheumatoid factor M05.89 [place] [address] [address] Mar, [facility] [id number] [place] [address] Feb, Dizziness of unknown cause R 42 and Other chronic pain G89.29 [place] [id number] [place] [address] Feb, [place] [id number] [place] [address] Feb, Shortness of breath R06.02 [place] [id number] [place] [address] January, [facility] [address] [address] January, Rheumatoid arthritis involvi ng multiple sites with positive rheumatoid factor M05.89 ; Chronic prescription opiate use Z79.899 ; Hyperlipidemia, unspecified hyperlipidemia E78.5 ; Cough R05 ; Exposure to pneumonia Z20.828 ; Diarrhea, unspecified type R19.7 ; Weight loss R63.4 ; Lumbago with sciatica, right side M54.41 and Lumbago with sciatica, left side M54.42 [place] [address] [address] Dec, [place] [address] [address] Dec, Bronchitis J40 [place] [address] [address] Nov, [place] [address] [address] Nov, [place] [address] [address] Nov, [place] [address] [address] Nov, Bloody diarrhea R19.7 ; [place] n wall thickening K63.9 ; Shortness of breath R06.02 and Bladder wall thickening N32.89 [facility] [id number] [place] [id number] Oct, Dental examination Z01.20 [facility] [id number] [place] [address] Oct, [facility] [address] [address] Oct, Toothache K08.8 [facility] [address] [facility] [id number] [address] [place] [id number] 11 Feb, 2016 Dental examination Z01.20 [facility] [address] [facility] [id number] [address] [place] [address] 02 Oct, 2015 [facility] [address] [facility] [id number] [address] [place] [address] Sep, [facility] [address] [facility] [id number] [address] [place] [address] 13 Sep, 2015 Burning with urination R30.0 [place] [id number] [place] [address] Sep, Hematuria R31.9 ; Rheumatoid arthritis involving multiple sites with positive rheumatoid factor M05.89 and Rheumatoid arthritis flare M06.9 [place] [id number] [place] [address] Aug, Hyperlipidemia, unspecified hyperlipidemia E78.5 and Hematuria R31.9 [place] [id number] [place] [address] Aug, Hematuria R31.9 ; Chronic ki dney disease, stage 1 N18.1 and Hyperlipidemia, unspecified hyperlipidemia E78.5 [place] [id number] [place] [address] Aug, Rheumatoid arthritis involvi ng multiple sites with positive rheumatoid factor M05.89 ; Asthma exacerbation J45.901 ; Hematuria R31.9 ; Hyperlipidemia, unspecified hyperlipidemia E78.5 and Chronic kidney disease, stage 1 N18.1 [place] [address] [facility] [id number] [address] [place] [address] Aug, [facility] [address] [facility] [id number] [address] [place] [address] Jul, [place] [id number] [place] [address] Jul, Lumbosacral radiculopathy M5 4.17 [place] [id number] [place] [address] Jul, [place] [id number] [place] [address] Jun, Rheumatoid arthritis involvi ng multiple sites with positive rheumatoid factor M05.89 ; Hyperlipidemia, unspecified hyperlipidemia E78.5 ; Lumbosacral radiculopathy M54.17 ; Carpal tunnel syndrome, right upper limb G56.01 and Carpal tunnel syndrome, left upper limb G56.02 [facility] [address] [address] Jun, [facility] [id number] [place] [address] May, Lumbar radicular pain 724.4 and Dysuria 788.1 [place] [address] [place] [address] 08 May, 2015 Rheumatoid arthritis 714.0 ; Lumbar radicular pain 724.4 ; Burn 949.0 and Thoracic back pain 724.1 [facility] [address] [place] [address] [id number] [address] [place] [address] May, [facility] [address] [address] May, [facility] [address] [id number] [place] [address] Apr, [facility] [address] [id number] [place] [address] Mar, Hyperlipidemia 272.4 [facility] [id number] [place] [address] Mar, [facility] [address] [address] Mar, [facility] [facility] [address] [id number] [address] [place] [address] Mar, Diarrhea 787.91 ; Chronic ki dney disease, unspecified 585.9 ; Hyperlipidemia 272.4 and Asthma 493.90 [facility] [address] [id number] [address] [place] [address], [place] [address] Mar, [facility] [address] [id number] [address] [place] [address], [place] [address] Mar, Gastroenteritis 558.9 [facility] [address] [id number] [address] [place] [address], [place] [address] Feb, [facility] [address] [id number] [address] [place] [address], [place] [address] January, [facility] [address] [id number] [address] [place] [address], [place] [address] January, [facility] [address] [id number] [address] [place] [address], [place] [address] Dec, [facility] [address] [id number] [address] [place] [address], [place] [address] Dec, [facility] [address] [id number] [address] [place] [address], [place] [address] Nov, [facility] [address] [id number] [address] [place] [address], [place] [address] Nov, [facility] [address] [id number] [address] [place] [address] Nov, [facility] [address] [id number] [address] [place] [address], [place] [address] Nov, [facility] [address] [id number] [address] [place] [address] Nov, [facility] [address] [id number] [address] [place] [address], [place] [address] Nov, [facility] [address] [id number] [address] [place] [address] Oct, [facility] [address] [id number] [address] [place] [address] Oct, [facility] [address] [id number] [address] [place] [address] Sep, [facility] [address] [id number] [address] [place] [address], [place] [address] Sep, [facility] [address] [id number] [address] [place] [address], [place] [address] Sep, [facility] [address] [id number] [address] [place] [address], [place] [address] Sep, [facility] [address] [id number] [address] [place] [address], [place] [address] Sep, [facility] [address] [id number] [address] [place] [address], [place] [address] Sep, [facility] [address] [id number] [address] [place] [address], [place] [address] Aug, [facility] [address] [id number] [address] [place] [address], [place] [address] Aug, [facility] [address] [id number] [address] [place] [address], [place] [address] Aug, [facility] [address] [id number] [address] [place] [address], [place] [address] Aug, [facility] [address] [id number] [address] [place] [address], [place] [address] Jul, [facility] [address] [id number] [address] [place] [address], [place] [address] Jul, [facility] [address] [id number] [address] [place] [address], [place] [address] Jul, [facility] [address] [id number] [address] [place] [address], [place] [address] Jul, [facility] [address] [id number] [address] [place] [address], [place] [address] Jul, [facility] [address] [id number] [address] [place] [address], [place] [address] Jul, [facility] [address] [id number] [address] [place] [address], [place] [address] Jul, [facility] [address] [id number] [address] [place] [address], [place] [address] Jul, [facility] [address] [id number] [address] [place] [address], [place] [address] Jul, [facility] [address] [id number] [address] [place] [address], [place] [address] Jun, [facility] [address] [id number] [address] [place] [address], [place] [address] 15 Jun, 2014 [facility] [address] [id number] [address] [place] [address], [place] [address] Jun, [facility] [address] [id number] [address] [place] [address], [place] [address] 25 May, 2014 [facility] [address] [id number] [address] [place] [address], [place] [address] 25 May, 2013 [facility] [address] [id number] [address] [place] [address], [place] [address] 24 May, 2013 [facility] [address] [id number] [address] [place] [address], [place] [address] 24 May, 2013 [facility] [address] [id number] [address] [place] [address], [place] [address] 24 May, 2013 [facility] [address] [id number] [address] [place] [address], [place] [address] 24 May, 2013 [facility] [address] [id number] [address] [place] [address], [place] [address] 19 May, 2013 [facility] [address] [id number] [address] [place] [address], [place] [address] 19 May, 2013 [facility] [address] [id number] [address] [place] [address], [place] [address] 11 May, 2013 [facility] [address] [id number] [address] [place] [address], [place] [address] May, [facility] [address] [id number] [address] [place] [address] May, [facility] [address] [id number] [address] [place] [address] May, [facility] [address] [id number] [address] [place] [address] May, [facility] [address] [id number] [address] [place] [address] May, [facility] [address] [id number] [address] [place] [address] May, [facility] [address] [id number] [address] [place] [address] May, [facility] [address] [id number] [address] [place] [address] Apr, [facility] [address] [id number] [address] [place] [address] Apr, [facility] [address] [id number] [address] [place] [address] Aug, [facility] [address] [id number] [address] [place] [address] Jul, IMMUNIZATIONS No Known Immunizations SOCIAL HISTORY Never Assessed REASON FOR VISIT EMR-[facility] PLAN OF CARE VITAL SIGNS MEDICATIONS Medication Instructions Dosage Frequency Start Date End Date Duration S tatus Percocet 5-325 mg take 1 tablet by Ora l route as needed every 4-6 hours PRN pain, should last 2 months Nov, A ctive Simvastatin 20 mg 1 tablet by Oral route 1 time per day May, Active cyclobenzaprine 10 mg take 1 tablet by O ral route 3 times per day PRN pain/muscle spasm Jul, Active Bystolic 10 mg take 1 tablet by Oral route 2 times per day Apr, Active Bactrim DS 800-160 mg take 1 tablet by oral route ever y 12 hours for 7 days Jul, Active Amitiza 24 mcg take 1 capsule (24 m cg) by oral route 2 times per day with food and water Nov, Active Hydrochlorothiazide 25 mg 1 tablet by Oral route 1 sangita e per day Apr, Active Augmentin 875-125 mg 1 tablet by Oral route 2 times pe r day for 14 day(s) Sep, Active Azithromycin 500 mg take 1 Tablet by Ora l route on day 1 then take 1 daily for 5 days do not fill until pt calls. 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
--- OUTSIDE RECORDS SUMMARY | 2020-02-27 15:43 | XMS REPORT ---
Author Author Beba GARCIA Organization [facility] Address [address] [place] [address] Care Team Providers Care Yacht Master Name Role Phone JAMES GARCIA Unavailable PROBLEMS Type Condition ICD9-CM Code CDT13-[place] Code Onset Dates Condition S tatus SNOMED Code Problem Essential hypertension I10 Active 07088377 Problem Chronic constipation K59.00 Active 248109604 Problem Atrophy of left kidney N26.1 Active 199739147 Problem Vitamin D deficiency E55.9 Active 36225533 Problem Colon wall thickening K63.9 Active 484914259 Problem Chronic prescription opiate use Z79.899 Active 580623039 Problem Gastroesophageal reflux disease, esophagitis pre sence not specified K21.9 Active 047403982 Problem Hyperlipidemia, unspecified hyperlipidemia E78.5 Active 03964785 Problem Bladder wall thickening N32.89 Active 284648527 Problem Chronic pain syndrome G89.4 Active 265540268 Problem Asthma exacerbation J45.901 Active 415619562 Problem Severe episode of recurrent major depressive disorder, without psychotic features F33.2 Active 23833508 Problem Dependence on supplemental oxygen Z99.81 Active 673897461838 Problem Moderate persistent asthma with acute exacerbation J45.41 Active 410260005128948 Problem Rheumatoid arthritis involvi ng multiple sites with positive rheumatoid factor M05.89 Active 914965514 Problem Chronic respiratory failure with hypoxia J96.11 Active 315303350 Problem Osteoporosis M81.0 Active 9667173 6 Problem Pernicious anemia D51.0 Active 84 068603 Problem Chronic kidney disease, stage 1 N18.1 Active 764130358 Problem Generalized anxiety disorder F41.1 A ctive 67828056 Problem Moderate persistent asthma without complication J4 5.40 Active 399527405 Problem Lumbago with sciatica, left side M54.42 Active 848164360 Problem Lumbago with sciatica, right side M54.41 Active [id number] ALLERGIES No Information ENCOUNTERS Encounter Location Date Diagnosis [facility] [address] [facility] [id number] [address] [place] [address] Feb, Chronic pain syndrome G89.[address] [address] January, Chronic pain syndrome G89.4 [facility] [address] [facility] [id number] [address] [place] [phone] Dec, [facility] [address] [facility] [id number] [address] [place] [phone] Dec, [facility] [address] [facility] [id number] [address] [place] [address] Dec, Asthma exacerbation J45.901 ; Essential hypertension I10 ; Hyperlipidemia, unspecified hyperlipidemia E78.5 ; Rheumatoid arthritis involving multiple sites with positive rheumatoid factor M05.89 ; Chronic pain syndrome G89.4 ; Chronic kidney disease, stage 1 N18.1 ; Chronic respiratory failure with hypoxia J96.11 and Dependence on supplemental oxygen Z99.81 [facility] [address] [facility] [id number] [address] [place] [phone] Dec, Chronic pain syndrome G89.4 [facility] [address] [facility] [id number] [address] [place] [address] Nov, Chronic pain syndrome G89.4 [facility] [address] [facility] [id number] [address] [place] [phone] Nov, [facility] [address] [facility] [id number] [address] [place] [id number] Oct, Chronic pain syndrome G89.4 [facility] [address] [facility] [id number] [address] [place] [phone] Oct, [facility] [address] [facility] [id number] [address] [place] [address] Oct, Viral upper respiratory trac t infection J06.9 ; Chronic constipation K59.00 ; Severe episode of recurrent major depressive disorder, without psychotic features F33.2 ; Moderate persistent asthma with acute exacerbation J45.41 ; Essential hypertension I10 ; Gastroesophageal reflux disease, esophagitis presence not specified K21.9 and Hyperlipidemia, unspecified hyperlipidemia E78.5 [facility] [address] [id number] [address] [place] [phone] Oct, [facility] [address] [id number] [address] [place] [phone] Sep, Chronic pain syndrome G89.4 [facility] [address] [id number] [address] [place] [address] Sep, Rheumatoid arthritis involvi ng multiple sites with positive rheumatoid factor M05.89 ; Chronic constipation K59.00 ; Gastroesophageal reflux disease, esophagitis presence not specified K21.9 ; Asthma exacerbation J45.901 ; Severe episode of recurrent major depressive disorder, without psychotic features F33.2 ; Ganglion cyst M67.40 and Chronic prescription opiate use Z79.899 [facility] [address] [facility] [id number] [address] [place] [address] Aug, Cough R05 and Moderate persi stent asthma with acute exacerbation J45.41 [facility] [address] [id number] [address] [place] [phone] Aug, Chronic pain syndrome G89.4 [facility] [address] [facility] [id number] [address] [place] [id number] Jul, Chronic pain syndrome G89.4 [facility] [address] [facility] [id number] [address] [place] [address] Jul, Acute nasopharyngitis J00 [facility] [address] [id number] [address] [place] [phone] Jun, [facility] [address] [facility] [id number] [address] [place] [phone] Jun, Chronic pain syndrome G89.4 [facility] [address] [facility] [id number] [address] [place] [address] May, Chronic pain syndrome G89.4 [facility] [address] [id number] [address] [place] [phone] 14 May, 2018 [facility] [address] [id number] [address] [place] [phone] 13 May, 2018 [facility] [address] [id number] [address] [place] [phone] 13 May, 2018 Moderate persistent asthma w ith acute exacerbation J45.41 and Rheumatoid arthritis involving multiple sites with positive rheumatoid factor M05.89 [facility] [address] [id number] [address] [place] [address] 12 May, 2018 Moderate persistent asthma w ith acute exacerbation J45.41 and Hypoxia R09.02 [facility] [address] [facility] [id number] [address] [place] [phone] Apr, Chronic pain syndrome G89.4 [facility] [address] [facility] [id number] [address] [place] [id number] Mar, High ankle sprain of right l ower extremity, subsequent encounter S93.431D ; Lumbago with sciatica, left side M54.42 and Lumbago with sciatica, right side M54.41 [facility] [address] [facility] [id number] [address] [place] [address] Mar, [facility] [address] [id number] [address] [place] [id number] Mar, Chronic pain syndrome G89.4 [facility] [address] [id number] [address] [place] [phone] Mar, [facility] [address] [facility] [id number] [address] [place] [address] Mar, Asthma exacerbation J45.901 and Sprain of right ankle, unspecified ligament, subsequent encounter S93.401D [facility] [address] [id number] [address] [place] [address] Feb, Injury of right ankle, initi al encounter S99.911A [facility] [address] [facility] [id number] [address] [place] [address] Feb, Chronic pain syndrome G89.4 [place] [address] [place] [id number] [address] [place] [address] Feb, Chronic pain syndrome G89.4 [facility] [address] [place] [id number] [address] [place] [phone] Feb, Moderate persistent asthma w ith acute exacerbation J45.41 and Persistent cough for 3 weeks or longer R05 [place] [address] [address] January, [place] [address] [address] January, Moderate persistent asthma w ith acute exacerbation J45.41 [place] [address] [address] January, Chronic pain syndrome G89.4 [place] [address] [address] 14 Jan, 2018 Tachycardia R00.0 and Modera te persistent asthma with acute exacerbation J45.41 [place] [address] [address] 11 Jan, 2018 Tachycardia R00.0 ; Moderate persistent asthma with acute exacerbation J45.41 ; Gastroesophageal reflux disease, esophagitis presence not specified K21.9 ; Hyperlipidemia, unspecified hyperlipidemia E78.5 and Chronic pain syndrome G89.4 [place] [address] [place] [id number] [address] [place] [id number] Dec, Medicare annual wellness vis it, initial [...] immunization Z23 and Chronic pain syndrome G89.4 [facility] [address] [facility] [id number] [address] [place] [address] Dec, Chronic pain syndrome G89.4 [facility] [address] [facility] [id number] [address] [place] [address] Dec, [facility] [address] [place] [id number] [address] [place] [phone] Nov, [facility] [address] [place] [id number] [place] [address] Nov, Chronic pain syndrome G89.4 [facility] [address] [place] [id number] [place] [address] Oct, Chronic pain syndrome G89.4 [facility] [address] [place] [id number] [place] [address] Oct, Chronic kidney disease, stag e 1 N18.1 [facility] [address] [address] Oct, Chronic prescription opiate use Z79.899 ; Cough R05 ; Asthma exacerbation J45.901 ; Elevated liver enzymes R74.8 ; Rheumatoid arthritis involving multiple sites with positive rheumatoid factor M05.89 and Chronic pain syndrome G89.4 [facility] [address] [place] [id number] [address] [place] [id number] Sep, Chronic pain syndrome G89.4 [facility] [address] [place] [id number] [address] [place] [address] Sep, [facility] [address] [place] [id number] [address] [place] [phone] Aug, Acute bronchitis, unspecifie d organism J20.9 [facility] [address] [place] [id number] [address] [place] [address] Aug, Chronic pain syndrome G89.4 [facility] [address] [place] [id number] [address] [place] [address] Jul, Chronic pain syndrome G89.4 [facility] [address] [place] [address] Jun, Chronic pain syndrome G89.4 [facility] [address] [place] [id number] [address] [place] [phone] 29 May, 2017 Rheumatoid arthritis involvi ng multiple sites with positive rheumatoid factor M05.89 [facility] [address] [address] May, Gastroesophageal reflux dise ase, esophagitis presence not specified K21.9 and Chronic pain syndrome G89.4 [facility] [address] [address] May, [place] [address] [address] May, Esophageal candidiasis B37.8 1 and Chronic kidney disease, stage 1 N18.1 [place] [address] [address] May, Chronic kidney disease, stag e 1 N18.1 [place] [address] [address] 05 May, 2017 Cough R05 ; Fever, unspecifi ed fever cause R50.9 ; Rheumatoid arthritis involving multiple sites with positive rheumatoid factor M05.89 and Chronic prescription opiate use Z79.899 [place] [address] [place] [id number] [address] [place] [address] Apr, [place] [address] [address] Apr, Cough R05 [place] [address] [address] Apr, Asthma exacerbation J45.901 [place] [address] [address] Apr, [facility] [address] [place] [address] Apr, Generalized anxiety disorder F41.1 and Severe episode of recurrent major depressive disorder, without psychotic features F33.2 [facility] [address] [place] [id number] [address] [place] [phone] Mar, [facility] [address] [place] [id number] [address] [place] [address] Feb, Chronic pain syndrome G89.4 [facility] [address] [place] [id number] [address] [place] [address] Feb, Acute non-recurrent maxillar y sinusitis J01.00 [place] [address] [place] [id number] [place] [address] Feb, Acute non-recurrent frontal sinusitis J01.10 [place] [address] [place] [id number] [address] [place] [address] Feb, Chronic pain syndrome G89.4 [place] [address] [place] [address] January, Acute cystitis with hematuri a N30.01 [place] [address] [address] January, Acute cystitis with hematuri a N30.01 ; Dysuria R30.0 and Moderate persistent asthma with acute exacerbation J45.41 [place] [address] [place] [id number] [address] [place] [address] January, [place] [address] [place] [id number] [address] [place] [address] January, Chronic pain syndrome G89.4 [place] [address] [place] [id number] [address] [place] [address] January, Asthma exacerbation J45.901 [place] [address] [place] [id number] [address] [place] [address] January, Asthma exacerbation J45.901 [place] [address] [place] [id number] [address] [place] [address] Dec, Cough R05 ; Numbness in both hands R20.0 ; Ground glass opacity present on imaging of lung R91.8 ; Hypoxia R09.02 and Asthma exacerbation J45.901 [place] [address] [address] Dec, Chronic pain syndrome G89.4 [place] [address] [address] Nov, Chronic prescription opiate use Z79.899 ; Rheumatoid arthritis involving multiple sites with positive rheumatoid factor M05.89 ; Moderate persistent asthma with acute exacerbation J45.41 ; Pneumonia of right lower lobe due to infectious organism J18.1 ; Chronic pain syndrome G89.4 ; Gastroesophageal reflux disease, esophagitis presence not specified K21.9 and Hyperlipidemia, unspecified hyperlipidemia E78.[address] [address] Nov, Rheumatoid arthritis involvi ng multiple sites with positive rheumatoid factor M05.[address] [address] Oct, [place] [address] [address] Oct, Essential hypertension I10 [address] [address] Sep, Hypoxia R09.02 and Ground gl ass opacity present on imaging of lung R91.8 [place] [address] [place] [id number] [address] [place] [address] Sep, Moderate persistent asthma w ith acute exacerbation J45.41 [place] [address] [id number] Sep, [place] [address] [place] [id number] [address] [place] [address] Sep, Chronic constipation K59.00 and Moderate persistent asthma with acute exacerbation J45.41 [facility] [address] [id number] [address] [place] [address] Sep, Moderate persistent asthma w ith acute exacerbation J45.41 [facility] [address] [id number] [address] [place] [address] 30 Aug, 2016 [facility] [address] [id number] [address] [place] [address] Aug, [facility] [address] [id number] [address] [place] [address] Aug, [facility] [address] [id number] [address] [place] [address] Aug, Rheumatoid arthritis involvi ng multiple sites with positive rheumatoid factor M05.89 ; Essential hypertension I10 ; Hyperlipidemia, unspecified hyperlipidemia E78.5 ; Chronic constipation K59.00 and Moderate persistent asthma with acute exacerbation J45.41 [facility] [address] [id number] [address] [place] [address] Aug, Bronchitis J40 [facility] [address] [id number] [address] [place] [address] Aug, Rheumatoid arthritis involvi ng multiple sites with positive rheumatoid factor M05.89 [facility] [address] [id number] [address] [place] [phone] Aug, Pharyngitis, unspecified pablito ology J02.9 and Acute nasopharyngitis J00 [facility] [address] [id number] [address] [place] [address] Aug, [facility] [address] [id number] [address] [place] [address] Jul, [facility] [address] [facility] [id number] [address] [place] [address] Jul, Rheumatoid arthritis involvi ng multiple sites with positive rheumatoid factor M05.89 ; Essential hypertension I10 ; Hyperlipidemia, unspecified hyperlipidemia E78.5 ; Rash R21 ; Mild persistent asthma with acute exacerbation J45.31 ; Hematuria R31.9 ; Osteoporosis M81.0 and Gastroesophageal reflux disease, esophagitis presence not specified K21.9 [facility] [address] [id number] [address] [place] [phone] 18 Jun, 2016 [facility] [address] [id number] [address] [place] [address] 10 Jun, 2016 Dysuria R30.0 [facility] [address] [id number] [address] [place] [phone] 05 Jun, 2016 Acute non-recurrent maxillar y sinusitis J01.00 and Dysuria R30.0 [facility] [address] [id number] [address] [place] [address] 16 May, 2016 [facility] [address] [id number] [address] [place] [address] May, [facility] [address] [facility] [id number] [address] [place] [address] Apr, Chronic prescription opiate use Z79.899 and Rheumatoid arthritis involving multiple sites with positive rheumatoid factor M05.89 [facility] [address] [facility] [id number] [address] [place] [address] Mar, [facility] [address] [facility] [id number] [address] [place] [address] Feb, Dizziness of unknown cause R 42 and Other chronic pain G89.29 [facility] [address] [id number] [address] [place] [phone] Feb, [facility] [address] [id number] [address] [place] [address] Feb, Shortness of breath R06.02 [facility] [address] [facility] [id number] [address] [place] [address] January, [facility] [address] [facility] [id number] [address] [place] [address] January, Rheumatoid arthritis involvi ng multiple sites with positive rheumatoid factor M05.89 ; Chronic prescription opiate use Z79.899 ; Hyperlipidemia, unspecified hyperlipidemia E78.5 ; Cough R05 ; Exposure to pneumonia Z20.828 ; Diarrhea, unspecified type R19.7 ; Weight loss R63.4 ; Lumbago with sciatica, right side M54.41 and Lumbago with sciatica, left side M54.42 [facility] [address] [place] [id number] [address] [place] [address] Dec, [facility] [address] [place] [id number] [place] [address] Dec, Bronchitis J40 [facility] [address] [address] Nov, [facility] [address] [address] Nov, [facility] [address] [address] Nov, [facility] [address] [address] Nov, Bloody diarrhea R19.7 ; [place] n wall thickening K63.9 ; Shortness of breath R06.02 and Bladder wall thickening N32.89 [facility] [id number] [place] [id number] Oct, Dental examination Z01.20 [facility] [address] [place] [address] 15 Oct, 2015 [facility] [address] [place] [id number] [address] [place] [address] Oct, Toothache K08.8 [facility] [address] [place] [id number] [place] [id number] Oct, Dental examination Z01.20 [facility] [address] [place] [id number] [address] [place] [phone] Oct, [facility] [address] [place] [id number] [address] [place] [phone] 18 Sep, 2015 [facility] [address] [facility] [id number] [address] [place] [phone] 13 Sep, 2015 Burning with urination R30.0 [place] [address] [facility] [id number] [address] [place] [id number] 12 Sep, 2015 Hematuria R31.9 ; Rheumatoid arthritis involving multiple sites with positive rheumatoid factor M05.89 and Rheumatoid arthritis flare M06.9 [place] [address] [facility] [id number] [address] [place] [phone] Aug, Hyperlipidemia, unspecified hyperlipidemia E78.5 and Hematuria R31.9 [place] [address] [place] [id number] [address] [place] [phone] Aug, Hematuria R31.9 ; Chronic ki dney disease, stage 1 N18.1 and Hyperlipidemia, unspecified hyperlipidemia E78.5 [place] [address] [place] [id number] [place] [id number] Aug, Rheumatoid arthritis involvi ng multiple sites with positive rheumatoid factor M05.89 ; Asthma exacerbation J45.901 ; Hematuria R31.9 ; Hyperlipidemia, unspecified hyperlipidemia E78.5 and Chronic kidney disease, stage 1 N18.1 [place] [address] [place] [id number] [address] [place] [phone] Aug, [place] [address] [facility] [id number] [address] [place] [phone] Jul, [place] [address] [place] [id number] [address] [place] [phone] Jul, Lumbosacral radiculopathy M5 4.17 [place] [address] [place] [id number] [address] [place] [phone] Jul, [place] [address] [place] [id number] [address] [place] [id number] Jun, Rheumatoid arthritis involvi ng multiple sites with positive rheumatoid factor M05.89 ; Hyperlipidemia, unspecified hyperlipidemia E78.5 ; Lumbosacral radiculopathy M54.17 ; Carpal tunnel syndrome, right upper limb G56.01 and Carpal tunnel syndrome, left upper limb G56.02 [facility] [address] [facility] [id number] [address] [place] [id number] Jun, [facility] [address] [id number] [address] [place] [phone] May, Lumbar radicular pain 724.4 and Dysuria 788.1 [facility] [address] [id number] [address] [place] [id number] 08 May, 2015 Rheumatoid arthritis 714.0 ; Lumbar radicular pain 724.4 ; Burn 949.0 and Thoracic back pain 724.1 [facility] [address] [facility] [id number] [address] [place] [id number] May, [facility] [address] [facility] [id number] [address] [place] [phone] May, [facility] [address] [facility] [id number] [address] [place] [phone] Apr, [facility] [address] [facility] [id number] [address] [place] [id number] Mar, Hyperlipidemia 272.4 [facility] [address] [facility] [id number] [address] [place] [id number] Mar, [facility] [address] [facility] [id number] [address] [place] [phone] Mar, [facility] [address] [facility] [id number] [address] [place] [phone] Mar, Diarrhea 787.91 ; Chronic ki dney disease, unspecified 585.9 ; Hyperlipidemia 272.4 and Asthma 493.90 [facility] [address] [facility] [id number] [address] [place] [phone] Mar, [facility] [address] [place] [id number] [address] [place] [id number] Mar, Gastroenteritis 558.9 [facility] [address] [id number] [address] [place] [address], [place] [id number] Feb, [facility] [address] [id number] [address] [place] [phone] January, [facility] [address] [id number] [address] [place] [phone] January, [facility] [address] [id number] [address] [place] [phone] Dec, [facility] [address] [id number] [address] [place] [phone] Dec, [facility] [address] [id number] [address] [place] [phone] Nov, [facility] [address] [id number] [address] [place] [phone] Nov, [facility] [address] [id number] [address] [place] [phone] Nov, [facility] [address] [id number] [address] [place] [phone] Nov, [facility] [address] [id number] [address] [place] [phone] Nov, [facility] [address] [id number] [address] [place] [phone] Nov, [facility] [address] [id number] [address] [place] [phone] Oct, [facility] [address] [id number] [address] [place] [phone] Oct, [facility] [address] [id number] [address] [place] [phone] Sep, [facility] [address] [id number] [address] [place] [id number] Sep, [facility] [address] [id number] [address] [place] [address], [place] [id number] Sep, [facility] [address] [id number] [address] [place] [address], [place] [id number] Sep, [facility] [address] [id number] [address] [place] [address], [place] [id number] Sep, [facility] [address] [id number] [address] [place] [address], [place] [id number] Sep, [facility] [address] [id number] [address] [place] [address], [place] [id number] Aug, [facility] [address] [id number] [address] [place] [address], [place] [id number] Aug, [facility] [address] [id number] [address] [place] [address], [place] [id number] Aug, [facility] [address] [id number] [address] [place] [address], [place] [id number] Aug, [facility] [address] [id number] [address] [place] [address], [place] [id number] Jul, [facility] [address] [id number] [address] [place] [address], [place] [id number] Jul, [facility] [address] [id number] [address] [place] [address], [place] [id number] Jul, [facility] [address] [id number] [address] [place] [address], [place] [id number] Jul, [facility] [address] [id number] [address] [place] [address], [place] [id number] Jul, [facility] [address] [id number] [address] [place] [address], [place] [id number] Jul, [facility] [address] [id number] [address] [place] [address], [place] [id number] Jul, [facility] [address] [id number] [address] [place] [address], [place] [id number] Jul, [facility] [address] [id number] [address] [place] [address], [place] [id number] Jul, [facility] [address] [id number] [address] [place] [address], [place] [id number] Jun, [facility] [address] [id number] [address] [place] [address], [place] [id number] 15 Jun, 2014 [facility] [address] [id number] [address] [place] [address], [place] [id number] 15 Jun, 2014 [facility] [address] [id number] [address] [place] [address], [place] [id number] 25 May, 2014 [facility] [address] [id number] [address] [place] [address], [place] [id number] 25 May, 2014 [facility] [address] [id number] [address] [place] [address], [place] [id number] 24 May, 2013 [facility] [address] [id number] [address] [place] [address], [place] [id number] 24 May, 2013 [facility] [address] [id number] [address] [place] [address], [place] [id number] 24 May, 2013 [facility] [address] [id number] [address] [place] [address], [place] [id number] 24 May, 2013 [facility] [address] [id number] [address] [place] [address], [place] [id number] 19 May, 2013 [facility] [address] [id number] [address] [place] [address], [place] [id number] 19 May, 2013 [facility] [address] [id number] [address] [place] [address], [place] [id number] 11 May, 2013 [facility] [address] [id number] [address] [place] [address], [place] [id number] 11 May, 2013 [facility] [address] [id number] [address] [place] [address], [place] [id number] 11 May, 2013 [facility] [address] [id number] [address] [place] [phone] May, [facility] [address] [id number] [address] [place] [id number] May, [facility] [address] [id number] [address] [place] [id number] May, [facility] [address] [id number] [address] [place] [phone] May, [facility] [address] [id number] [address] [place] [phone] May, [facility] [address] [id number] [address] [place] [phone] Apr, [facility] [address] [id number] [address] [place] [id number] Apr, [facility] [address] [id number] [address] [place] [phone] Aug, [facility] [address] [id number] [address] [place] [id number] Jul, IMMUNIZATIONS No Known Immunizations SOCIAL HISTORY Never Assessed REASON FOR VISIT PLAN OF CARE VITAL SIGNS Height 66 in 2014-10-19 Weight 151.12 lbs 2014-10-19 Temperature 97.8 degrees Fahrenheit 2014-10-19 Heart Rate 88 bpm 2014-10-19 Respiratory Rate 20 2014-10-19 Blood pressure systolic 124 mmHg 2014-10-19 Blood pressure diastolic 78 mmHg 2014-10-19 MEDICATIONS Unknown Medications RESULTS No Results PROCEDURES Procedure Date Ordered Result Body Site MEASURE BLOOD OXYGEN LEVEL Oct 19, 2014 INFLUENZA ASSAY W/OPTIC Oct 19, 2014 INSTRUCTIONS MEDICATIONS ADMINISTERED No Known Medications [...]
--- OUTSIDE RECORDS SUMMARY | 2020-02-27 15:43 | XMS REPORT ---
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 Role Phone EMERALD EDWARD Unavailable PROBLEMS Type Condition ICD9-CM Code ACA96-BA Code Onset Dates Condition S tatus SNOMED Code Problem Essential hypertension I10 Active 42410977 Problem Chronic constipation K59.00 Active 688974140 Problem Atrophy of left kidney N26.1 Active 250505302 Problem Vitamin D deficiency E55.9 Active 22003946 Problem Colon wall thickening K63.9 Active 721288284 Problem Chronic prescription opiate use Z79.899 Active 884625081 Problem Gastroesophageal reflux disease, esophagitis pre sence not specified K21.9 Active 620409077 Problem Hyperlipidemia, unspecified hyperlipidemia E78.5 Active 03830420 Problem Bladder wall thickening N32.89 Active 081784948 Problem Chronic pain syndrome G89.4 Active 659694434 Problem Asthma exacerbation J45.901 Active 377686138 Problem Severe episode of recurrent major depressive disorder, without psychotic features F33.2 Active 51255361 Problem Dependence on supplemental oxygen Z99.81 Active 937999442851 Problem Moderate persistent asthma with acute exacerbation J45.41 Active 509566113582499 Problem Rheumatoid arthritis involvi ng multiple sites with positive rheumatoid factor M05.89 Active 754146730 Problem Chronic respiratory failure with hypoxia J96.11 Active 003678847 Problem Osteoporosis M81.0 Active 9008862 6 Problem Pernicious anemia D51.0 Active 84 354692 Problem Chronic kidney disease, stage 1 N18.1 Active 075440118 Problem Generalized anxiety disorder F41.1 A ctive 94752846 Problem Moderate persistent asthma without complication J4 5.40 Active 865307190 Problem Lumbago with sciatica, left side M54.42 Active 153655112 Problem Lumbago with sciatica, right side M54.41 Active [id number] ALLERGIES No Information ENCOUNTERS Encounter Location Date Diagnosis [facility] [address] [facility] [id number] [address] [place] [address] Feb, Chronic pain syndrome G89.[address] [address] January, Chronic pain syndrome G89.4 [facility] [address] [facility] [id number] [address] [place] [address] Dec, [facility] [address] [facility] [id number] [address] [place] [address] Dec, [facility] [address] [facility] [id number] [address] [place] [address] Dec, Asthma exacerbation J45.901 ; Essential hypertension I10 ; Hyperlipidemia, unspecified hyperlipidemia E78.5 ; Rheumatoid arthritis involving multiple sites with positive rheumatoid factor M05.89 ; Chronic pain syndrome G89.4 ; Chronic kidney disease, stage 1 N18.1 ; Chronic respiratory failure with hypoxia J96.11 and Dependence on supplemental oxygen Z99.81 [facility] [address] [facility] [id number] [address] [place] [address] Dec, Chronic pain syndrome G89.4 [facility] [address] [facility] [id number] [address] [place] [address] Nov, Chronic pain syndrome G89.4 [facility] [address] [place] [id number] [address] [place] [address] Nov, [facility] [address] [place] [id number] [address] [place] [address] 15 Oct, 2018 Chronic pain syndrome G89.4 [facility] [address] [facility] [id number] [address] [place] [address] Oct, [facility] [address] [place] [id number] [address] [place] [address] Oct, Viral upper respiratory trac t infection J06.9 ; Chronic constipation K59.00 ; Severe episode of recurrent major depressive disorder, without psychotic features F33.2 ; Moderate persistent asthma with acute exacerbation J45.41 ; Essential hypertension I10 ; Gastroesophageal reflux disease, esophagitis presence not specified K21.9 and Hyperlipidemia, unspecified hyperlipidemia E78.5 [facility] [address] [facility] [id number] [address] [place] [address] Oct, [facility] [address] [id number] [address] [place] [address] Sep, Chronic pain syndrome G89.4 [facility] [address] [facility] [id number] [address] [place] [address] Sep, Rheumatoid arthritis involvi ng multiple sites with positive rheumatoid factor M05.89 ; Chronic constipation K59.00 ; Gastroesophageal reflux disease, esophagitis presence not specified K21.9 ; Asthma exacerbation J45.901 ; Severe episode of recurrent major depressive disorder, without psychotic features F33.2 ; Ganglion cyst M67.40 and Chronic prescription opiate use Z79.899 [facility] [address] [facility] [id number] [address] [place] [address] Aug, Cough R05 and Moderate persi stent asthma with acute exacerbation J45.41 [facility] [address] [facility] [id number] [address] [place] [address] Aug, Chronic pain syndrome G89.4 [facility] [address] [facility] [id number] [address] [place] [address] Jul, Chronic pain syndrome G89.4 [facility] [address] [facility] [id number] [address] [place] [address] Jul, Acute nasopharyngitis J00 [facility] [address] [facility] [id number] [address] [place] [address] Jun, [facility] [address] [facility] [id number] [place] [address] Jun, Chronic pain syndrome G89.4 [facility] [address] [facility] [id number] [address] [place] [address] May, Chronic pain syndrome G89.4 [place] [address] [id number] [address] [place] [address] 14 May, 2018 [facility] [address] [id number] [address] [place] [address] 13 May, 2018 [facility] [address] [id number] [address] [place] [address] 13 May, 2018 Moderate persistent asthma w ith acute exacerbation J45.41 and Rheumatoid arthritis involving multiple sites with positive rheumatoid factor M05.89 [facility] [address] [id number] [address] [place] [address] 12 May, 2018 Moderate persistent asthma w ith acute exacerbation J45.41 and Hypoxia R09.02 [facility] [address] [id number] [address] [place] [address] Apr, Chronic pain syndrome G89.4 [facility] [address] [id number] [address] [place] [address] Mar, High ankle sprain of right l ower extremity, subsequent encounter S93.431D ; Lumbago with sciatica, left side M54.42 and Lumbago with sciatica, right side M54.41 [facility] [address] [id number] [address] [place] [address] Mar, [facility] [address] [id number] [address] [place] [address] Mar, Chronic pain syndrome G89.4 [facility] [address] [id number] [address] [place] [address] Mar, [facility] [address] [facility] [id number] [address] [place] [address] Mar, Asthma exacerbation J45.901 and Sprain of right ankle, unspecified ligament, subsequent encounter S93.401D [facility] [address] [id number] [address] [place] [address] Feb, Injury of right ankle, initi al encounter S99.911A [facility] [address] [address] Feb, Chronic pain syndrome G89.4 [place] [address] [address] Feb, Chronic pain syndrome G89.4 [place] [address] [address] Feb, Moderate persistent asthma w ith acute exacerbation J45.41 and Persistent cough for 3 weeks or longer R05 [place] [address] [address] January, [place] [address] [address] 24 Jan, 2018 Moderate persistent asthma w ith acute exacerbation J45.41 [place] [address] [address] January, Chronic pain syndrome G89.4 [place] [address] [address] 14 Jan, 2018 Tachycardia R00.0 and Modera te persistent asthma with acute exacerbation J45.41 [place] [address] [address] 11 Jan, 2018 Tachycardia R00.0 ; Moderate persistent asthma with acute exacerbation J45.41 ; Gastroesophageal reflux disease, esophagitis presence not specified K21.9 ; Hyperlipidemia, unspecified hyperlipidemia E78.5 and Chronic pain syndrome G89.4 [place] [address] [address] Dec, Medicare annual wellness vis it, initial [...] immunization Z23 and Chronic pain syndrome G89.4 [facility] [address] [facility] [id number] [address] [place] [address] Dec, Chronic pain syndrome G89.4 [facility] [address] [facility] [id number] [address] [place] [address] Dec, [facility] [address] [place] [id number] [address] [place] [address] Nov, [facility] [address] [place] [id number] [place] [address] Nov, Chronic pain syndrome G89.4 [facility] [address] [address] Oct, Chronic pain syndrome G89.4 [facility] [address] [address] Oct, Chronic kidney disease, stag e 1 N18.1 [facility] [address] [address] 07 Oct, 2017 Chronic prescription opiate use Z79.899 ; Cough R05 ; Asthma exacerbation J45.901 ; Elevated liver enzymes R74.8 ; Rheumatoid arthritis involving multiple sites with positive rheumatoid factor M05.89 and Chronic pain syndrome G89.4 [facility] [address] [place] [id number] [address] [place] [address] Sep, Chronic pain syndrome G89.4 [facility] [address] [place] [id number] [address] [place] [address] Sep, [facility] [address] [place] [id number] [address] [place] [address] Aug, Acute bronchitis, unspecifie d organism J20.9 [facility] [address] [place] [id number] [address] [place] [address] Aug, Chronic pain syndrome G89.4 [facility] [address] [place] [id number] [address] [place] [address] Jul, Chronic pain syndrome G89.4 [facility] [address] [facility] [id number] [address] [place] [address] Jun, Chronic pain syndrome G89.4 [facility] [address] [place] [id number] [address] [place] [address] 29 May, 2017 Rheumatoid arthritis involvi ng multiple sites with positive rheumatoid factor M05.89 [facility] [address] [facility] [id number] [address] [place] [address] May, Gastroesophageal reflux dise ase, esophagitis presence not specified K21.9 and Chronic pain syndrome G89.4 [facility] [address] [place] [id number] [address] [place] [address] May, [facility] [address] [address] May, Esophageal candidiasis B37.8 1 and Chronic kidney disease, stage 1 N18.1 [facility] [address] [place] [id number] [address] [place] [address] May, Chronic kidney disease, stag e 1 N18.1 [facility] [address] [address] 05 May, 2017 Cough R05 ; Fever, unspecifi ed fever cause R50.9 ; Rheumatoid arthritis involving multiple sites with positive rheumatoid factor M05.89 and Chronic prescription opiate use Z79.899 [facility] [address] [place] [id number] [address] [place] [address] Apr, [facility] [address] [place] [address] Apr, Cough R05 [facility] [address] [place] [id number] [address] [place] [address] Apr, Asthma exacerbation J45.901 [facility] [address] [place] [id number] [address] [place] [address] Apr, [facility] [address] [place] [address] Apr, Generalized anxiety disorder F41.1 and Severe episode of recurrent major depressive disorder, without psychotic features F33.2 [facility] [address] [facility] [id number] [address] [place] [address] Mar, [facility] [address] [place] [id number] [address] [place] [address] Feb, Chronic pain syndrome G89.4 [facility] [address] [place] [id number] [address] [place] [address] Feb, Acute non-recurrent maxillar y sinusitis J01.00 [place] [address] [place] [id number] [address] [place] [address] Feb, Acute non-recurrent frontal sinusitis J01.10 [place] [address] [place] [address] Feb, Chronic pain syndrome G89.4 [facility] [address] [place] [id number] [address] [place] [address] January, Acute cystitis with hematuri a N30.01 [place] [address] [address] January, Acute cystitis with hematuri a N30.01 ; Dysuria R30.0 and Moderate persistent asthma with acute exacerbation J45.41 [place] [address] [place] [address] January, [facility] [address] [place] [id number] [address] [place] [address] January, Chronic pain syndrome G89.4 [facility] [address] [place] [id number] [address] [place] [address] January, Asthma exacerbation J45.901 [place] [address] [place] [id number] [address] [place] [address] January, Asthma exacerbation J45.901 [place] [address] [place] [id number] [address] [place] [address] Dec, Cough R05 ; Numbness in both hands R20.0 ; Ground glass opacity present on imaging of lung R91.8 ; Hypoxia R09.02 and Asthma exacerbation J45.901 [place] [address] [place] [id number] [address] [place] [address] Dec, Chronic pain syndrome G89.4 [place] [address] [place] [id number] [address] [place] [address] Nov, Chronic prescription opiate use Z79.899 ; Rheumatoid arthritis involving multiple sites with positive rheumatoid factor M05.89 ; Moderate persistent asthma with acute exacerbation J45.41 ; Pneumonia of right lower lobe due to infectious organism J18.1 ; Chronic pain syndrome G89.4 ; Gastroesophageal reflux disease, esophagitis presence not specified K21.9 and Hyperlipidemia, unspecified hyperlipidemia E78.5 [place] [id number] [address] [place] [address] Nov, Rheumatoid arthritis involvi ng multiple sites with positive rheumatoid factor M05.89 [place] [address] [place] [id number] [address] [place] [address] Oct, [place] [address] [place] [id number] [address] [place] [address] Oct, Essential hypertension I10 [place] [id number] [address] [place] [address] Sep, Hypoxia R09.02 and Ground gl ass opacity present on imaging of lung R91.8 [place] [address] [place] [id number] [address] [place] [address] Sep, Moderate persistent asthma w ith acute exacerbation J45.41 [place] [address] [place] [id number] [place] [id number] Sep, [place] [address] [place] [id number] [address] [place] [address] Sep, Chronic constipation K59.00 and Moderate persistent asthma with acute exacerbation J45.41 [facility] [address] [id number] [address] [place] [address] Sep, Moderate persistent asthma w ith acute exacerbation J45.41 [facility] [address] [id number] [address] [place] [address] 30 Aug, 2016 [facility] [address] [id number] [address] [place] [address] Aug, [facility] [address] [id number] [address] [place] [address] Aug, [facility] [address] [id number] [address] [place] [address] Aug, Rheumatoid arthritis involvi ng multiple sites with positive rheumatoid factor M05.89 ; Essential hypertension I10 ; Hyperlipidemia, unspecified hyperlipidemia E78.5 ; Chronic constipation K59.00 and Moderate persistent asthma with acute exacerbation J45.41 [facility] [address] [id number] [address] [place] [address] Aug, Bronchitis J40 [facility] [address] [id number] [address] [place] [address] Aug, Rheumatoid arthritis involvi ng multiple sites with positive rheumatoid factor M05.89 [facility] [address] [facility] [id number] [address] [place] [address] Aug, Pharyngitis, unspecified pablito ology J02.9 and Acute nasopharyngitis J00 [facility] [address] [id number] [address] [place] [address] Aug, [facility] [address] [id number] [address] [place] [address] Jul, [facility] [address] [facility] [id number] [address] [place] [address] Jul, Rheumatoid arthritis involvi ng multiple sites with positive rheumatoid factor M05.89 ; Essential hypertension I10 ; Hyperlipidemia, unspecified hyperlipidemia E78.5 ; Rash R21 ; Mild persistent asthma with acute exacerbation J45.31 ; Hematuria R31.9 ; Osteoporosis M81.0 and Gastroesophageal reflux disease, esophagitis presence not specified K21.9 [facility] [address] [facility] [id number] [address] [place] [address] 18 Jun, 2016 [facility] [address] [facility] [id number] [address] [place] [address] 10 Jun, 2016 Dysuria R30.0 [facility] [address] [facility] [id number] [address] [place] [address] 05 Jun, 2016 Acute non-recurrent maxillar y sinusitis J01.00 and Dysuria R30.0 [facility] [address] [facility] [id number] [address] [place] [address] May, [facility] [address] [place] [id number] [place] [address] May, [facility] [address] [place] [id number] [place] [address] Apr, Chronic prescription opiate use Z79.899 and Rheumatoid arthritis involving multiple sites with positive rheumatoid factor M05.89 [facility] [address] [address] Mar, [facility] [address] [place] [id number] [address] [place] [address] Feb, Dizziness of unknown cause R 42 and Other chronic pain G89.29 [facility] [address] [place] [id number] [address] [place] [address] Feb, [facility] [address] [facility] [id number] [address] [place] [address] Feb, Shortness of breath R06.02 [facility] [address] [facility] [id number] [address] [place] [address] January, [facility] [address] [place] [id number] [address] [place] [address] January, Rheumatoid arthritis involvi ng multiple sites with positive rheumatoid factor M05.89 ; Chronic prescription opiate use Z79.899 ; Hyperlipidemia, unspecified hyperlipidemia E78.5 ; Cough R05 ; Exposure to pneumonia Z20.828 ; Diarrhea, unspecified type R19.7 ; Weight loss R63.4 ; Lumbago with sciatica, right side M54.41 and Lumbago with sciatica, left side M54.42 [facility] [address] [facility] [id number] [address] [place] [address] Dec, [facility] [address] [facility] [id number] [address] [place] [address] Dec, Bronchitis J40 [facility] [address] [address] Nov, [facility] [address] [address] Nov, [facility] [address] [address] Nov, [facility] [address] [address] Nov, Bloody diarrhea R19.7 ; [place] n wall thickening K63.9 ; Shortness of breath R06.02 and Bladder wall thickening N32.89 [facility] [id number] [place] [id number] Oct, Dental examination Z01.20 [facility] [address] [place] [address] 15 Oct, 2015 [facility] [address] [place] [id number] [address] [place] [address] Oct, Toothache K08.8 [facility] [address] [place] [id number] [place] [id number] Oct, Dental examination Z01.20 [facility] [address] [place] [id number] [address] [place] [address] Oct, [facility] [address] [place] [id number] [address] [place] [address] 18 Sep, 2015 [facility] [address] [facility] [id number] [address] [place] [address] 13 Sep, 2015 Burning with urination R30.0 [place] [address] [facility] [id number] [address] [place] [address] Sep, Hematuria R31.9 ; Rheumatoid arthritis involving multiple sites with positive rheumatoid factor M05.89 and Rheumatoid arthritis flare M06.9 [place] [address] [facility] [id number] [address] [place] [address] Aug, Hyperlipidemia, unspecified hyperlipidemia E78.5 and Hematuria R31.9 [place] [address] [facility] [id number] [address] [place] [address] Aug, Hematuria R31.9 ; Chronic ki dney disease, stage 1 N18.1 and Hyperlipidemia, unspecified hyperlipidemia E78.5 [place] [address] [facility] [id number] [address] [place] [address] Aug, Rheumatoid arthritis involvi ng multiple sites with positive rheumatoid factor M05.89 ; Asthma exacerbation J45.901 ; Hematuria R31.9 ; Hyperlipidemia, unspecified hyperlipidemia E78.5 and Chronic kidney disease, stage 1 N18.1 [place] [id number] [address] [facility] [id number] [address] [place] [id number] Aug, [place] [address] [address] [facility] [id number] [address] [place] [id number] Jul, [place] [address] [address] [facility] [id number] [address] [place] [id number] Jul, Lumbosacral radiculopathy M5 4.17 [place] [address] [address] [facility] [id number] [address] [place] [id number] Jul, [place] [address] [address] [facility] [id number] [address] [place] [id number] Jun, Rheumatoid arthritis involvi ng multiple sites with positive rheumatoid factor M05.89 ; Hyperlipidemia, unspecified hyperlipidemia E78.5 ; Lumbosacral radiculopathy M54.17 ; Carpal tunnel syndrome, right upper limb G56.01 and Carpal tunnel syndrome, left upper limb G56.02 [facility] [address] [facility] [id number] [address] [place] [address] Jun, [facility] [address] [id number] [address] [place] [address] May, Lumbar radicular pain 724.4 and Dysuria 788.1 [facility] [address] [id number] [address] [place] [address] May, Rheumatoid arthritis 714.0 ; Lumbar radicular pain 724.4 ; Burn 949.0 and Thoracic back pain 724.1 [facility] [address] [facility] [id number] [address] [place] [address] May, [facility] [address] [facility] [id number] [address] [place] [address] May, [facility] [address] [facility] [id number] [address] [place] [address] Apr, [facility] [address] [facility] [id number] [address] [place] [address] Mar, Hyperlipidemia 272.4 [facility] [address] [facility] [id number] [address] [place] [address] Mar, [facility] [address] [facility] [id number] [address] [place] [address] Mar, [facility] [address] [facility] [id number] [address] [place] [address] Mar, Diarrhea 787.91 ; Chronic ki dney disease, unspecified 585.9 ; Hyperlipidemia 272.4 and Asthma 493.90 [facility] [address] [facility] [id number] [address] [place] [address] Mar, [facility] [address] [facility] [id number] [address] [place] [address] Mar, Gastroenteritis 558.9 [facility] [address] [id number] [address] [place] [address], [place] [address] Feb, [facility] [address] [id number] [address] [place] [address] January, [facility] [address] [id number] [address] [place] [address] January, [facility] [address] [id number] [address] [place] [address] Dec, [facility] [address] [id number] [address] [place] [address] Dec, [facility] [address] [id number] [address] [place] [address] Nov, [facility] [address] [id number] [address] [place] [address] Nov, [facility] [address] [id number] [address] [place] [address] Nov, [facility] [address] [id number] [address] [place] [address], [place] [address] Nov, [facility] [address] [id number] [address] [place] [address] Nov, [facility] [address] [id number] [address] [place] [address], [place] [address] Nov, [facility] [address] [id number] [address] [place] [address] Oct, [facility] [address] [id number] [address] [place] [address] Oct, [facility] [address] [id number] [address] [place] [address] Sep, [facility] [address] [id number] [address] [place] [address] Sep, [facility] [address] [id number] [address] [place] [address], [place] [address] Sep, [facility] [address] [id number] [address] [place] [address], [place] [address] Sep, [facility] [address] [id number] [address] [place] [address], [place] [address] Sep, [facility] [address] [id number] [address] [place] [address], [place] [address] Sep, [facility] [address] [id number] [address] [place] [address], [place] [address] Aug, [facility] [address] [id number] [address] [place] [address], [place] [address] Aug, [facility] [address] [id number] [address] [place] [address], [place] [address] Aug, [facility] [address] [id number] [address] [place] [address], [place] [address] Aug, [facility] [address] [id number] [address] [place] [address], [place] [address] Jul, [facility] [address] [id number] [address] [place] [address], [place] [address] Jul, [facility] [address] [id number] [address] [place] [address], [place] [address] Jul, [facility] [address] [id number] [address] [place] [address], [place] [address] Jul, [facility] [address] [id number] [address] [place] [address], [place] [address] Jul, [facility] [address] [id number] [address] [place] [address], [place] [address] Jul, [facility] [address] [id number] [address] [place] [address], [place] [address] Jul, [facility] [address] [id number] [address] [place] [address] Jul, [facility] [address] [id number] [address] [place] [address], [place] [address] Jul, [facility] [address] [id number] [address] [place] [address], [place] [address] Jun, [facility] [address] [id number] [address] [place] [address], [place] [address] 15 Jun, 2014 [facility] [address] [id number] [address] [place] [address], [place] [address] 15 Jun, 2014 [facility] [address] [id number] [address] [place] [address], [place] [address] 25 May, 2014 [facility] [address] [id number] [address] [place] [address], [place] [address] 25 May, 2014 [facility] [address] [id number] [address] [place] [address], [place] [address] 24 May, 2013 [facility] [address] [id number] [address] [place] [address], [place] [address] 24 May, 2013 [facility] [address] [id number] [address] [place] [address], [place] [address] 24 May, 2013 [facility] [address] [id number] [address] [place] [address], [place] [address] 24 May, 2013 [facility] [address] [id number] [address] [place] [address], [place] [address] 19 May, 2013 [facility] [address] [id number] [address] [place] [address], [place] [address] 19 May, 2013 [facility] [address] [id number] [address] [place] [address], [place] [address] 11 May, 2013 [facility] [address] [id number] [address] [place] [address], [place] [address] 11 May, 2013 [facility] [address] [id number] [address] [place] [address], [place] [address] 11 May, 2013 [facility] [address] [id number] [address] [place] [address] May, [facility] [address] [id number] [address] [place] [address] May, [facility] [address] [id number] [address] [place] [address] May, [facility] [address] [id number] [address] [place] [address] May, [facility] [address] [id number] [address] [place] [address] May, [facility] [address] [id number] [address] [place] [address] Apr, [facility] [address] [id number] [address] [place] [address] Apr, [facility] [address] [id number] [address] [place] [address] Aug, [facility] [address] [id number] [address] [place] [address] Jul, IMMUNIZATIONS No Known Immunizations SOCIAL HISTORY Never Assessed REASON FOR VISIT PLAN OF CARE VITAL SIGNS Height 66 in 2014-10-02 Weight 151.4 lbs 2014-10-02 Temperature 97.6 degrees Fahrenheit 2014-10-02 Heart Rate 82 bpm 2014-10-02 Respiratory Rate 18 2014-10-02 Blood pressure systolic 120 mmHg 2014-10-02 Blood pressure diastolic 68 mmHg 2014-10-02 MEDICATIONS Unknown Medications RESULTS No Results PROCEDURES Procedure Date Ordered Result Body Site VISIT Oct 02, 2014 INSTRUCTIONS MEDICATIONS ADMINISTERED No Known Medications [...]
--- OUTSIDE RECORDS SUMMARY | 2020-02-27 15:43 | XMS REPORT ---
Author Author Beba Díaz Doctor Organization [facility] Address Unknown Phone Unavailable Care Team Providers Care Employment Advisor Name Role Phone Migration, Doctor Unavailable Unavailable PROBLEMS Type Condition ICD9-CM Code FHL01-HY Code Onset Dates Condition S tatus SNOMED Code Problem Vitamin D deficiency E55.9 Active 54425611 Problem Essential hypertension I10 Active 87395836 Problem Hyperlipidemia, unspecified hyperlipidemia E78.5 Active 70219993 Problem Pernicious anemia D51.0 Active 84 179687 Problem Atrophy of left kidney N26.1 Active 662037418 Problem Rheumatoid arthritis involvi ng multiple sites with positive rheumatoid factor M05.89 Active 787373489 Problem Colon wall thickening K63.9 Active 897936955 Problem Chronic prescription opiate use Z79.899 Active 394188877 Problem Osteoporosis M81.0 Active 9383000 6 Problem Moderate persistent asthma with acute exacerbation J45.41 Active 775005063115214 Problem Chronic pain syndrome G89.4 Active 272640021 Problem Lumbago with sciatica, left side M54.42 Active 038934906 Problem Gastroesophageal reflux disease, esophagitis pre sence not specified K21.9 Active 720348349 Problem Chronic kidney disease, stage 1 N18.1 Active 962677359 Problem Lumbago with sciatica, right side M54.41 Active 454929713764690 Problem Bladder wall thickening N32.89 Active 744793742 Problem Chronic constipation K59.00 Active 201839516 Problem Asthma exacerbation J45.901 Active 571264995 Problem Severe episode of recurrent major depressive disorder, without psychotic features F33.2 Active 01014189 Problem Generalized anxiety disorder F41.1 A ctive 55919556 Problem Moderate persistent asthma without complication J4 5.40 Active 089148312 ALLERGIES No Information ENCOUNTERS Encounter Location Date Diagnosis [facility] [address] [facility] [id number] [address] [place] [phone] January, [facility] [address] [facility] [id number] [address] [place] [address] Nov, Chronic pain syndrome G89.4 [facility] [address] [facility] [id number] [address] [place] [address] Nov, [facility] [address] [place] [id number] [address] [place] [address] Oct, Chronic pain syndrome G89.4 [facility] [address] [place] [id number] [address] [place] [address] Oct, [facility] [address] [place] [id number] [address] [place] [address] Oct, Viral upper respiratory trac t infection J06.9 ; Chronic constipation K59.00 ; Severe episode of recurrent major depressive disorder, without psychotic features F33.2 ; Moderate persistent asthma with acute exacerbation J45.41 ; Essential hypertension I10 ; Gastroesophageal reflux disease, esophagitis presence not specified K21.9 and Hyperlipidemia, unspecified hyperlipidemia E78.5 [facility] [address] [place] [id number] [address] [place] [address] Oct, [place] [address] [place] [id number] [address] [place] [address] Sep, Chronic pain syndrome G89.4 [place] [address] [place] [id number] [address] [place] [address] Sep, Rheumatoid arthritis involvi ng multiple sites with positive rheumatoid factor M05.89 ; Chronic constipation K59.00 ; Gastroesophageal reflux disease, esophagitis presence not specified K21.9 ; Asthma exacerbation J45.901 ; Severe episode of recurrent major depressive disorder, without psychotic features F33.2 ; Ganglion cyst M67.40 and Chronic prescription opiate use Z79.899 [facility] [address] [place] [id number] [address] [place] [address] Aug, Cough R05 and Moderate persi stent asthma with acute exacerbation J45.41 [facility] [address] [place] [id number] [address] [place] [address] Aug, Chronic pain syndrome G89.4 [place] [address] [id number] [address] [place] [address] Jul, Chronic pain syndrome G89.4 [facility] [address] [id number] [address] [place] [address] Jul, Acute nasopharyngitis J00 [facility] [address] [id number] [address] [place] [address] Jun, [facility] [address] [id number] [address] [place] [address] Jun, Chronic pain syndrome G89.4 [facility] [address] [id number] [address] [place] [address] 21 May, 2018 Chronic pain syndrome G89.4 [facility] [address] [id number] [address] [place] [address] 14 May, 2018 [facility] [address] [facility] [id number] [address] [place] [address] 13 May, 2018 [facility] [address] [facility] [id number] [address] [place] [address] May, Moderate persistent asthma w ith acute exacerbation J45.41 and Rheumatoid arthritis involving multiple sites with positive rheumatoid factor M05.89 [facility] [address] [facility] [id number] [address] [place] [address] 12 May, 2018 Moderate persistent asthma w [facility] acute exacerbation J45.41 and Hypoxia R09.02 [facility] [address] [id number] [address] [place] [address] Apr, Chronic pain syndrome G89.4 [facility] [address] [facility] [id number] [address] [place] [address] Mar, High ankle sprain of right l ower extremity, subsequent encounter S93.431D ; Lumbago with sciatica, left side M54.42 and Lumbago with sciatica, right side M54.41 [facility] [address] [facility] [id number] [address] [place] [address] Mar, [facility] [address] [id number] [address] [place] [address] Mar, Chronic pain syndrome G89.4 [facility] [address] [id number] [address] [place] [address] Mar, [facility] [address] [id number] [address] [place] [address] Mar, Asthma exacerbation J45.901 and Sprain of right ankle, unspecified ligament, subsequent encounter S93.401D [facility] [address] [id number] [address] [place] [address] Feb, Injury of right ankle, initi al encounter S99.911A [facility] [address] [id number] [address] [place] [address] Feb, Chronic pain syndrome G89.4 [facility] [address] [id number] [address] [place] [address] Feb, Chronic pain syndrome G89.4 [facility] [address] [id number] [address] [place] [address] Feb, Moderate persistent asthma w ith acute exacerbation J45.41 and Persistent cough for 3 weeks or longer R05 [facility] [address] [id number] [address] [place] [address] January, [facility] [address] [id number] [address] [place] [address] January, Moderate persistent asthma w ith acute exacerbation J45.41 [facility] [address] [id number] [address] [place] [address] January, Chronic pain syndrome G89.4 [facility] [address] [facility] [id number] [address] [place] [address] January, Tachycardia R00.0 and Modera te persistent asthma with acute exacerbation J45.41 [facility] [address] [facility] [id number] [address] [place] [address] January, Tachycardia R00.0 ; Moderate persistent asthma with acute exacerbation J45.41 ; Gastroesophageal reflux disease, esophagitis presence not specified K21.9 ; Hyperlipidemia, unspecified hyperlipidemia E78.5 and Chronic pain syndrome G89.4 [facility] [address] [facility] [id number] [address] [place] [address] Dec, Medicare annual wellness vis it, initial [...] immunization Z23 and Chronic pain syndrome G89.4 [place] [address] [place] [id number] [address] [place] [address] Dec, Chronic pain syndrome G89.4 [place] [address] [facility] [id number] [address] [place] [address] Dec, [place] [address] [facility] [id number] [address] [place] [address] Nov, [place] [address] [facility] [id number] [address] [place] [address] Nov, Chronic pain syndrome G89.4 [place] [address] [place] [id number] [address] [place] [address] Oct, Chronic pain syndrome G89.4 [place] [address] [place] [id number] [address] [place] [address] Oct, Chronic kidney disease, stag e 1 N18.1 [place] [address] [facility] [id number] [address] [place] [address] 07 Oct, 2017 Chronic prescription opiate use Z79.899 ; Cough R05 ; Asthma exacerbation J45.901 ; Elevated liver enzymes R74.8 ; Rheumatoid arthritis involving multiple sites with positive rheumatoid factor M05.89 and Chronic pain syndrome G89.4 [facility] [address] [id number] [address] [place] [address] Sep, Chronic pain syndrome G89.4 [facility] [address] [id number] [address] [place] [address] Sep, [facility] [address] [facility] [id number] [address] [place] [address] Aug, Acute bronchitis, unspecifie d organism J20.9 [facility] [address] [facility] [id number] [address] [place] [address] Aug, Chronic pain syndrome G89.4 [facility] [address] [facility] [id number] [address] [place] [address] Jul, Chronic pain syndrome G89.4 [facility] [address] [facility] [id number] [address] [place] [address] Jun, Chronic pain syndrome G89.4 [facility] [address] [id number] [address] [place] [address] 29 May, 2017 Rheumatoid arthritis involvi ng multiple sites with positive rheumatoid factor M05.89 [facility] [address] [facility] [id number] [address] [place] [address] 26 May, 2017 Gastroesophageal reflux dise ase, esophagitis presence not specified K21.9 and Chronic pain syndrome G89.4 [facility] [address] [facility] [id number] [address] [place] [address] May, [facility] [address] [facility] [id number] [address] [place] [phone] 12 May, 2017 Esophageal candidiasis B37.8 1 and Chronic kidney disease, stage 1 N18.1 [facility] [address] [facility] [id number] [address] [place] [address] 11 May, 2017 Chronic kidney disease, stag e 1 N18.1 [facility] [address] [facility] [id number] [address] [place] [address] May, Cough R05 ; Fever, unspecifi ed fever cause R50.9 ; Rheumatoid arthritis involving multiple sites with positive rheumatoid factor M05.89 and Chronic prescription opiate use Z79.899 [facility] [address] [place] [id number] [address] [place] [address] Apr, [facility] [address] [place] [id number] [address] [place] [address] Apr, Cough R05 [facility] [address] [place] [id number] [place] [address] Apr, Asthma exacerbation J45.901 [place] [address] [address] Apr, [place] [address] [place] [id number] [place] [address] Apr, Generalized anxiety disorder F41.1 and Severe episode of recurrent major depressive disorder, without psychotic features F33.2 [place] [id number] [place] [address] Mar, [place] [address] [address] Feb, Chronic pain syndrome G89.4 [place] [address] [place] [id number] [address] [place] [address] Feb, Acute non-recurrent maxillar y sinusitis J01.00 [place] [address] [place] [id number] [address] [place] [address] Feb, Acute non-recurrent frontal sinusitis J01.10 [place] [address] [place] [id number] [address] [place] [address] Feb, Chronic pain syndrome G89.4 [facility] [address] [place] [id number] [address] [place] [address] January, Acute cystitis with hematuri a N30.01 [place] [address] [place] [id number] [address] [place] [address] January, Acute cystitis with hematuri a N30.01 ; Dysuria R30.0 and Moderate persistent asthma with acute exacerbation J45.41 [place] [address] [facility] [id number] [address] [place] [address] January, [place] [address] [place] [id number] [address] [place] [address] January, Chronic pain syndrome G89.4 [place] [address] [place] [id number] [address] [place] [address] January, Asthma exacerbation J45.901 [place] [address] [place] [id number] [address] [place] [address] January, Asthma exacerbation J45.901 [place] [address] [place] [id number] [address] [place] [address] Dec, Cough R05 ; Numbness in both hands R20.0 ; Ground glass opacity present on imaging of lung R91.8 ; Hypoxia R09.02 and Asthma exacerbation J45.901 [place] [address] [facility] [id number] [address] [place] [address] Dec, Chronic pain syndrome G89.4 [place] [address] [place] [id number] [address] [place] [address] Nov, Chronic prescription opiate use Z79.899 ; Rheumatoid arthritis involving multiple sites with positive rheumatoid factor M05.89 ; Moderate persistent asthma with acute exacerbation J45.41 ; Pneumonia of right lower lobe due to infectious organism J18.1 ; Chronic pain syndrome G89.4 ; Gastroesophageal reflux disease, esophagitis presence not specified K21.9 and Hyperlipidemia, unspecified hyperlipidemia E78.5 [place] [address] [place] [id number] [address] [place] [address] Nov, Rheumatoid arthritis involvi ng multiple sites with positive rheumatoid factor M05.89 [place] [address] [place] [id number] [address] [place] [address] Oct, [place] [address] [place] [id number] [address] [place] [address] Oct, Essential hypertension I10 [facility] [address] [facility] [id number] [address] [place] [address] Sep, Hypoxia R09.02 and Ground gl ass opacity present on imaging of lung R91.8 [facility] [address] [facility] [id number] [address] [place] [address] Sep, Moderate persistent asthma w ith acute exacerbation J45.41 [facility] [address] [place] [place] [id number] [place] [id number] Sep, [place] [address] [facility] [id number] [address] [place] [address] Sep, Chronic constipation K59.00 and Moderate persistent asthma with acute exacerbation J45.41 [facility] [address] [facility] [id number] [address] [place] [address] Sep, Moderate persistent asthma w ith acute exacerbation J45.41 [facility] [address] [facility] [id number] [address] [place] [address] Aug, [facility] [address] [facility] [id number] [address] [place] [address] Aug, [facility] [address] [facility] [id number] [address] [place] [address] Aug, [facility] [address] [facility] [id number] [address] [place] [address] Aug, Rheumatoid arthritis involvi ng multiple sites with positive rheumatoid factor M05.89 ; Essential hypertension I10 ; Hyperlipidemia, unspecified hyperlipidemia E78.5 ; Chronic constipation K59.00 and Moderate persistent asthma with acute exacerbation J45.41 [facility] [address] [facility] [id number] [address] [place] [address] Aug, Bronchitis J40 [facility] [address] [facility] [id number] [address] [place] [address] Aug, Rheumatoid arthritis involvi ng multiple sites with positive rheumatoid factor M05.89 [facility] [address] [facility] [id number] [address] [place] [address] Aug, Pharyngitis, unspecified pablito ology J02.9 and Acute nasopharyngitis J00 [facility] [address] [facility] [id number] [address] [place] [address] Aug, [facility] [address] [facility] [id number] [address] [place] [address] Jul, [facility] [address] [facility] [id number] [address] [place] [address] Jul, Rheumatoid arthritis involvi ng multiple sites with positive rheumatoid factor M05.89 ; Essential hypertension I10 ; Hyperlipidemia, unspecified hyperlipidemia E78.5 ; Rash R21 ; Mild persistent asthma with acute exacerbation J45.31 ; Hematuria R31.9 ; Osteoporosis M81.0 and Gastroesophageal reflux disease, esophagitis presence not specified K21.9 [facility] [address] [facility] [id number] [address] [place] [address] Jun, [facility] [address] [facility] [id number] [address] [place] [address] Jun, Dysuria R30.0 [facility] [address] [facility] [id number] [address] [place] [address] Jun, Acute non-recurrent maxillar y sinusitis J01.00 and Dysuria R30.0 [facility] [address] [facility] [id number] [address] [place] [address] May, [facility] [address] [facility] [id number] [address] [place] [address] May, [facility] [address] [place] [id number] [address] [place] [address] Apr, Chronic prescription opiate use Z79.899 and Rheumatoid arthritis involving multiple sites with positive rheumatoid factor M05.89 [facility] [address] [place] [id number] [address] [place] [phone] Mar, [place] [address] [place] [id number] [address] [place] [address] Feb, Dizziness of unknown cause R 42 and Other chronic pain G89.29 [place] [address] [place] [id number] [address] [place] [address] Feb, [place] [address] [address] Feb, Shortness of breath R06.02 [place] [address] [place] [id number] [address] [place] [address] January, [address] [address] January, Rheumatoid arthritis involvi ng multiple sites with positive rheumatoid factor M05.89 ; Chronic prescription opiate use Z79.899 ; Hyperlipidemia, unspecified hyperlipidemia E78.5 ; Cough R05 ; Exposure to pneumonia Z20.828 ; Diarrhea, unspecified type R19.7 ; Weight loss R63.4 ; Lumbago with sciatica, right side M54.41 and Lumbago with sciatica, left side M54.[address] [address] Dec, [place] [address] [place] [id number] [address] [place] [address] Dec, Bronchitis J40 [place] [address] [place] [id number] [address] [place] [address] Nov, [place] [address] [place] [address] Nov, [address] [address] Nov, [place] [id number] [address] [place] [address] Nov, Bloody diarrhea R19.7 ; Levels n wall thickening K63.9 ; Shortness of breath R06.02 and Bladder wall thickening N32.89 [facility] [address] [id number] [address] [place] [id number] 15 Oct, 2015 Dental examination Z01.20 [facility] [address] [id number] [address] [place] [address] 15 Oct, 2015 [facility] [address] [id number] [address] [place] [address] 15 Oct, 2015 Toothache K08.8 [facility] [address] [id number] [address] [place] [id number] 11 Oct, 2015 Dental examination Z01.20 [facility] [address] [id number] [address] [place] [address] 02 Oct, 2015 [facility] [address] [facility] [id number] [address] [place] [address] 18 Sep, 2015 [facility] [address] [facility] [id number] [address] [place] [address] Sep, Burning with urination R30.0 [facility] [address] [id number] [address] [place] [address] Sep, Hematuria R31.9 ; Rheumatoid arthritis involving multiple sites with positive rheumatoid factor M05.89 and Rheumatoid arthritis flare M06.9 [place] [address] [facility] [id number] [address] [place] [address] Aug, Hyperlipidemia, unspecified hyperlipidemia E78.5 and Hematuria R31.9 [facility] [address] [id number] [address] [place] [address] Aug, Hematuria R31.9 ; Chronic ki dney disease, stage 1 N18.1 and Hyperlipidemia, unspecified hyperlipidemia E78.5 [place] [address] [facility] [id number] [address] [place] [address] Aug, Rheumatoid arthritis involvi ng multiple sites with positive rheumatoid factor M05.89 ; Asthma exacerbation J45.901 ; Hematuria R31.9 ; Hyperlipidemia, unspecified hyperlipidemia E78.5 and Chronic kidney disease, stage 1 N18.1 [facility] [address] [id number] [address] [place] [id number] Aug, [facility] [address] [id number] [address] [place] [phone] Jul, [facility] [address] [id number] [address] [place] [address] Jul, Lumbosacral radiculopathy M5 4.17 [facility] [address] [id number] [address] [place] [address] Jul, [facility] [address] [id number] [address] [place] [address] Jun, Rheumatoid arthritis involvi ng multiple sites with positive rheumatoid factor M05.89 ; Hyperlipidemia, unspecified hyperlipidemia E78.5 ; Lumbosacral radiculopathy M54.17 ; Carpal tunnel syndrome, right upper limb G56.01 and Carpal tunnel syndrome, left upper limb G56.02 [facility] [address] [id number] [address] [place] [address] Jun, [facility] [address] [id number] [address] [place] [address] May, Lumbar radicular pain 724.4 and Dysuria 788.1 [facility] [address] [id number] [address] [place] [id number] 08 May, 2015 Rheumatoid arthritis 714.0 ; Lumbar radicular pain 724.4 ; Burn 949.0 and Thoracic back pain 724.1 [facility] [address] [id number] [address] [place] [address] May, [facility] [address] [id number] [address] [place] [id number] May, [facility] [address] [id number] [address] [place] [phone] Apr, [facility] [address] [id number] [address] [place] [address] Mar, Hyperlipidemia 272.4 [facility] [address] [id number] [address] [place] [phone] Mar, [facility] [address] [id number] [address] [place] [id number] Mar, [facility] [address] [id number] [address] [place] [address] Mar, Diarrhea 787.91 ; Chronic ki dney disease, unspecified 585.9 ; Hyperlipidemia 272.4 and Asthma 493.90 [facility] [address] [id number] [address] [place] [id number] Mar, [facility] [address] [facility] [id number] [address] [place] [address] Mar, Gastroenteritis 558.9 [facility] [address] [id number] [address] [place] [id number] Feb, [facility] [address] [id number] [address] [place] [phone] January, [facility] [address] [facility] [id number] [address] [place] [id number] January, [facility] [address] [facility] [id number] [address] [place] [phone] Dec, [facility] [address] [id number] [address] [place] [phone] Dec, [facility] [address] [id number] [address] [place] [phone] Nov, [facility] [address] [id number] [address] [place] [address] Nov, [facility] [address] [id number] [address] [place] [id number] Nov, [facility] [address] [id number] [address] [place] [phone] Nov, [facility] [address] [id number] [address] [place] [address], [place] [address] Nov, [facility] [address] [id number] [address] [place] [address], [place] [address] Nov, [facility] [address] [id number] [address] [place] [address], [place] [address] Oct, [facility] [address] [id number] [address] [place] [address], [place] [address] Oct, [facility] [address] [id number] [address] [place] [address], [place] [address] Sep, [facility] [address] [id number] [address] [place] [address], [place] [address] Sep, [facility] [address] [id number] [address] [place] [address], [place] [address] Sep, [facility] [address] [id number] [address] [place] [address], [place] [address] Sep, [facility] [address] [id number] [address] [place] [address], [place] [address] Sep, [facility] [address] [id number] [address] [place] [address], [place] [address] Sep, [facility] [address] [id number] [address] [place] [address], [place] [address] Aug, [facility] [address] [id number] [address] [place] [address], [place] [address] Aug, [facility] [address] [id number] [address] [place] [address], [place] [address] Aug, [facility] [address] [id number] [address] [place] [address], [place] [address] Aug, [facility] [address] [id number] [address] [place] [address], [place] [address] Jul, [facility] [address] [id number] [address] [place] [address] [place] [address] Jul, [facility] [address] [id number] [address] [place] [address], [place] [address] Jul, [facility] [address] [id number] [address] [place] [address], [place] [address] Jul, [facility] [address] [id number] [address] [place] [address], [place] [address] Jul, [facility] [address] [id number] [address] [place] [address], [place] [address] Jul, [facility] [address] [id number] [address] [place] [address], [place] [address] Jul, [facility] [address] [id number] [address] [place] [address], [place] [address] Jul, [facility] [address] [id number] [address] [place] [address], [place] [address] Jul, [facility] [address] [id number] [address] [place] [address], [place] [address] Jun, [facility] [address] [id number] [address] [place] [address], [place] [address] Jun, [facility] [address] [id number] [address] [place] [address], [place] [address] Jun, [facility] [address] [id number] [address] [place] [address], [place] [address] 25 May, 2014 [facility] [address] [id number] [address] [place] [address], [place] [address] 25 May, 2014 [facility] [address] [id number] [address] [place] [address], [place] [address] 24 May, 2014 [facility] [address] [id number] [address] [place] [address], [place] [address] 24 May, 2014 [facility] [address] [id number] [address] [place] [address], [place] [address] 24 May, 2014 [facility] [address] [id number] [address] [place] [address] 24 May, 2014 [facility] [address] [id number] [address] [place] [address] May, [facility] [address] [id number] [address] [place] [address] May, [facility] [address] [id number] [address] [place] [address] May, [facility] [address] [id number] [address] [place] [address] May, [facility] [address] [id number] [address] [place] [address] May, [facility] [address] [id number] [address] [place] [address] May, [facility] [address] [id number] [address] [place] [address] May, [facility] [address] [id number] [address] [place] [address] May, [facility] [address] [id number] [address] [place] [address] May, [facility] [address] [id number] [address] [place] [address] May, [facility] [address] [id number] [address] [place] [address] Apr, [facility] [address] [id number] [address] [place] [address] Apr, [facility] [address] [id number] [address] [place] [id number] Aug, [facility] [address] [id number] [address] [place] [address] Jul, IMMUNIZATIONS No Known Immunizations SOCIAL HISTORY Never Assessed REASON FOR VISIT EMR-[facility] PLAN OF CARE VITAL SIGNS MEDICATIONS Unknown [...]
--- OUTSIDE RECORDS SUMMARY | 2020-02-27 15:44 | XMS REPORT ---
Author Author Beba CORBIN [facility] Address [address] [place] [address] Care Team Providers Care Lead Vulcanizing Operator Name Role Phone EMEARLD EDWARD Unavailable PROBLEMS Type Condition ICD9-CM Code [id number] Code Onset Dates Condition S tatus SNOMED Code Problem Osteoporosis M81.0 Active 4203889 [id number] Problem Chronic pain syndrome G89.4 Active 605717045 Problem Moderate persistent asthma with acute exacerbation J45.41 Active 629164377823312 Problem Lumbago with sciatica, right side M54.41 Active 140972706969443 Problem Chronic constipation K59.00 Active 228965197 Problem Lumbago with sciatica, left side M54.42 Active 235479968 Problem Chronic kidney disease, stage 1 N18.1 Active 168018049 Problem Severe episode of recurrent major depressive disorder, without psychotic features F33.2 Active 08964322 Problem Asthma exacerbation J45.901 Active 754637247 Problem Moderate persistent asthma without complication J4 5.40 Active 423643018 Problem Generalized anxiety disorder F41.1 A ctive 08779278 Problem Pernicious anemia D51.0 Active 84 675529 Problem Hyperlipidemia, unspecified hyperlipidemia E78.5 Active 84370541 Problem Essential hypertension I10 Active 75518445 Problem Vitamin D deficiency E55.9 Active 99284277 Problem Chronic prescription opiate use Z79.899 Active 336354136 Problem Colon wall thickening K63.9 Active 168443415 Problem Rheumatoid arthritis involvi ng multiple sites with positive rheumatoid factor M05.89 Active 371426369 Problem Bladder wall thickening N32.89 Active 331516666 Problem Atrophy of left kidney N26.1 Active 664296884 Problem Gastroesophageal reflux disease, esophagitis pre sence not specified K21.9 Active 234008248 ALLERGIES No Information ENCOUNTERS Encounter Location Date Diagnosis [facility] [address] [facility] [id number] [address] [place] [address] Jul, Chronic pain syndrome G89.4 [facility] [address] [id number] [address] [place] [address] Jul, Acute nasopharyngitis J00 [facility] [address] [id number] [address] [place] [address] Jun, [facility] [address] [id number] [address] [place] [address] Jun, Chronic pain syndrome G89.4 [facility] [address] [id number] [address] [place] [address] 21 May, 2018 Chronic pain syndrome G89.4 [facility] [address] [id number] [address] [place] [address] 14 May, 2018 [facility] [address] [facility] [id number] [address] [place] [address] May, [facility] [address] [facility] [id number] [address] [place] [address] May, Moderate persistent asthma w ith acute exacerbation J45.41 [facility] [address] [facility] [id number] [address] [place] [address] May, Moderate persistent asthma w ith acute exacerbation J45.41 and Hypoxia R09.02 [facility] [address] [facility] [id number] [address] [place] [address] Apr, Chronic pain syndrome G89.4 [facility] [address] [facility] [id number] [address] [place] [address] Mar, High ankle sprain of right l ower extremity, subsequent encounter S93.431D ; Lumbago with sciatica, left side M54.42 and Lumbago with sciatica, right side M54.41 [facility] [address] [id number] [address] [place] [address] Mar, [facility] [address] [facility] [id number] [address] [place] [address] Mar, Chronic pain syndrome G89.4 [facility] [address] [id number] [address] [place] [address] Mar, [facility] [address] [id number] [address] [place] [address] Mar, Asthma exacerbation J45.901 and Sprain of right ankle, unspecified ligament, subsequent encounter S93.401D [facility] [address] [id number] [address] [place] [address] 30 Feb, 2018 Injury of right ankle, initi al encounter S99.911A [facility] [address] [id number] [address] [place] [address] Feb, Chronic pain syndrome G89.4 [facility] [address] [id number] [address] [place] [address] Feb, Chronic pain syndrome G89.4 [facility] [address] [id number] [address] [place] [address] Feb, Moderate persistent asthma w ith acute exacerbation J45.41 and Persistent cough for 3 weeks or longer R05 [facility] [address] [id number] [address] [place] [address] January, [facility] [address] [id number] [address] [place] [address] January, Moderate persistent asthma w ith acute exacerbation J45.41 [facility] [address] [id number] [address] [place] [address] January, Chronic pain syndrome G89.4 [facility] [address] [id number] [address] [place] [address] January, Tachycardia R00.0 and Modera te persistent asthma with acute exacerbation J45.41 [facility] [address] [id number] [address] [place] [address] January, Tachycardia R00.0 ; Moderate persistent asthma with acute exacerbation J45.41 ; Gastroesophageal reflux disease, esophagitis presence not specified K21.9 ; Hyperlipidemia, unspecified hyperlipidemia E78.5 and Chronic pain syndrome G89.4 [place] [address] [facility] [id number] [address] [place] [address] Dec, Medicare annual wellness vis it, initial [...] immunization Z23 and Chronic pain syndrome G89.4 [place] [address] [facility] [id number] [address] [place] [address] Dec, Chronic pain syndrome G89.4 [place] [address] [place] [id number] [address] [place] [address] Dec, [place] [address] [place] [id number] [address] [place] [address] Nov, [place] [address] [place] [id number] [address] [place] [address] Nov, Chronic pain syndrome G89.4 [place] [address] [place] [id number] [address] [place] [address] Oct, Chronic pain syndrome G89.4 [place] [address] [place] [id number] [address] [place] [address] 08 Oct, 2017 Chronic kidney disease, stag e 1 N18.1 [place] [address] [facility] [id number] [address] [place] [address] 07 Oct, 2017 Chronic prescription opiate use Z79.899 ; Cough R05 ; Asthma exacerbation J45.901 ; Elevated liver enzymes R74.8 ; Rheumatoid arthritis involving multiple sites with positive rheumatoid factor M05.89 and Chronic pain syndrome G89.4 [place] [address] [place] [id number] [address] [place] [address] Sep, Chronic pain syndrome G89.4 [facility] [address] [facility] [id number] [address] [place] [address] Sep, [facility] [address] [facility] [id number] [address] [place] [address] Aug, Acute bronchitis, unspecifie d organism J20.9 [facility] [address] [place] [id number] [address] [place] [address] Aug, Chronic pain syndrome G89.4 [facility] [address] [facility] [id number] [address] [place] [address] Jul, Chronic pain syndrome G89.4 [facility] [address] [place] [id number] [address] [place] [address] Jun, Chronic pain syndrome G89.4 [place] [address] [place] [id number] [address] [place] [address] May, Rheumatoid arthritis involvi ng multiple sites with positive rheumatoid factor M05.89 [place] [address] [place] [id number] [address] [place] [address] May, Gastroesophageal reflux dise ase, esophagitis presence not specified K21.9 and Chronic pain syndrome G89.4 [place] [address] [facility] [id number] [address] [place] [address] May, [place] [address] [place] [id number] [address] [place] [address] May, Esophageal candidiasis B37.8 1 and Chronic kidney disease, stage 1 N18.1 [place] [address] [facility] [id number] [address] [place] [address] 11 May, 2017 Chronic kidney disease, stag e 1 N18.1 [place] [address] [place] [id number] [address] [place] [address] 05 May, 2017 Cough R05 ; Fever, unspecifi ed fever cause R50.9 ; Rheumatoid arthritis involving multiple sites with positive rheumatoid factor M05.89 and Chronic prescription opiate use Z79.899 [facility] [address] [facility] [id number] [address] [place] [address] Apr, [facility] [address] [facility] [id number] [address] [place] [address] Apr, Cough R05 [facility] [address] [place] [id number] [address] [place] [address] Apr, Asthma exacerbation J45.901 [place] [address] [place] [id number] [address] [place] [address] Apr, [place] [address] [place] [id number] [address] [place] [address] Apr, Generalized anxiety disorder F41.1 and Severe episode of recurrent major depressive disorder, without psychotic features F33.2 [place] [address] [place] [id number] [address] [place] [address] Mar, [place] [address] [place] [id number] [address] [place] [address] Feb, Chronic pain syndrome G89.4 [place] [address] [place] [id number] [address] [place] [address] Feb, Acute non-recurrent maxillar y sinusitis J01.00 [place] [address] [place] [id number] [address] [place] [address] Feb, Acute non-recurrent frontal sinusitis J01.10 [place] [address] [place] [id number] [address] [place] [address] Feb, Chronic pain syndrome G89.4 [place] [address] [facility] [id number] [address] [place] [address] January, Acute cystitis with hematuri a N30.01 [facility] [address] [facility] [id number] [address] [place] [address] January, Acute cystitis with hematuri a N30.01 ; Dysuria R30.0 and Moderate persistent asthma with acute exacerbation J45.41 [place] [id number] [place] [address] January, [place] [address] [address] January, Chronic pain syndrome G89.4 [place] [address] [address] January, Asthma exacerbation J45.901 [facility] [address] [address] January, Asthma exacerbation J45.901 [place] [address] [address] Dec, Cough R05 ; Numbness in both hands R20.0 ; Ground glass opacity present on imaging of lung R91.8 ; Hypoxia R09.02 and Asthma exacerbation J45.901 [place] [address] [address] Dec, Chronic pain syndrome G89.4 [place] [address] [address] Nov, Chronic prescription opiate use Z79.899 ; Rheumatoid arthritis involving multiple sites with positive rheumatoid factor M05.89 ; Moderate persistent asthma with acute exacerbation J45.41 ; Pneumonia of right lower lobe due to infectious organism J18.1 ; Chronic pain syndrome G89.4 ; Gastroesophageal reflux disease, esophagitis presence not specified K21.9 and Hyperlipidemia, unspecified hyperlipidemia E78.5 [place] [address] [place] [id number] [address] [place] [address] Nov, Rheumatoid arthritis involvi ng multiple sites with positive rheumatoid factor M05.89 [place] [address] [address] Oct, [place] [address] [place] [id number] [address] [place] [address] Oct, Essential hypertension I10 [place] [address] [place] [id number] [address] [place] [address] Sep, Hypoxia R09.02 and Ground gl ass opacity present on imaging of lung R91.8 [place] [address] [facility] [id number] [address] [place] [address] Sep, Moderate persistent asthma w ith acute exacerbation J45.41 [facility] [id number] [place] [id number] Sep, [place] [address] [facility] [id number] [address] [place] [address] 03 Sep, 2016 Chronic constipation K59.00 and Moderate persistent asthma with acute exacerbation J45.41 [place] [address] [facility] [id number] [address] [place] [address] Sep, Moderate persistent asthma w ith acute exacerbation J45.41 [place] [address] [facility] [id number] [address] [place] [address] 30 Aug, 2016 [place] [address] [facility] [id number] [address] [place] [address] Aug, [place] [address] [facility] [id number] [address] [place] [address] Aug, [place] [address] [facility] [id number] [address] [place] [address] Aug, Rheumatoid arthritis involvi ng multiple sites with positive rheumatoid factor M05.89 ; Essential hypertension I10 ; Hyperlipidemia, unspecified hyperlipidemia E78.5 ; Chronic constipation K59.00 and Moderate persistent asthma with acute exacerbation J45.41 [facility] [address] [facility] [id number] [address] [place] [address] Aug, Bronchitis J40 [place] [address] [facility] [id number] [address] [place] [address] Aug, Rheumatoid arthritis involvi ng multiple sites with positive rheumatoid factor M05.89 [place] [address] [facility] [id number] [address] [place] [address] Aug, Pharyngitis, unspecified pablito ology J02.9 and Acute nasopharyngitis J00 [facility] [address] [facility] [id number] [address] [place] [address] Aug, [facility] [address] [place] [id number] [address] [place] [address] Jul, [facility] [address] [place] [id number] [place] [address] Jul, Rheumatoid arthritis involvi ng multiple sites with positive rheumatoid factor M05.89 ; Essential hypertension I10 ; Hyperlipidemia, unspecified hyperlipidemia E78.5 ; Rash R21 ; Mild persistent asthma with acute exacerbation J45.31 ; Hematuria R31.9 ; Osteoporosis M81.0 and Gastroesophageal reflux disease, esophagitis presence not specified K21.9 [facility] [address] [place] [id number] [address] [place] [address] Jun, [facility] [address] [address] Jun, Dysuria R30.0 [facility] [address] [facility] [id number] [address] [place] [address] Jun, Acute non-recurrent maxillar y sinusitis J01.00 and Dysuria R30.0 [facility] [address] [place] [id number] [address] [place] [address] 16 May, 2016 [facility] [address] [place] [id number] [address] [place] [address] May, [facility] [address] [place] [id number] [address] [place] [address] Apr, Chronic prescription opiate use Z79.899 and Rheumatoid arthritis involving multiple sites with positive rheumatoid factor M05.89 [facility] [address] [place] [id number] [address] [place] [address] Mar, [facility] [address] [place] [id number] [address] [place] [address] 16 Festus, 2016 Dizziness of unknown cause R 42 and Other chronic pain G89.29 [facility] [address] [place] [id number] [address] [place] [address] Feb, [facility] [address] [facility] [id number] [address] [place] [address] Feb, Shortness of breath R06.02 [facility] [address] [place] [id number] [address] [place] [address] January, [facility] [address] [place] [id number] [address] [place] [address] January, Rheumatoid arthritis involvi ng multiple sites with positive rheumatoid factor M05.89 ; Chronic prescription opiate use Z79.899 ; Hyperlipidemia, unspecified hyperlipidemia E78.5 ; Cough R05 ; Exposure to pneumonia Z20.828 ; Diarrhea, unspecified type R19.7 ; Weight loss R63.4 ; Lumbago with sciatica, right side M54.41 and Lumbago with sciatica, left side M54.42 [facility] [address] [place] [id number] [address] [place] [address] Dec, [facility] [address] [address] Dec, Bronchitis J40 [facility] [address] [place] [id number] [address] [place] [address] Nov, [place] [address] [place] [id number] [address] [place] [address] Nov, [facility] [address] [place] [id number] [address] [place] [address] Nov, [facility] [address] [place] [id number] [address] [place] [address] Nov, Bloody diarrhea R19.7 ; [place] n wall thickening K63.9 ; Shortness of breath R06.02 and Bladder wall thickening N32.89 [facility] [address] [id number] [address] [place] [address] [id number] Oct, Dental examination Z01.20 [facility] [address] [facility] [id number] [address] [place] [address] 15 Oct, 2015 [facility] [address] [facility] [id number] [address] [place] [address] 15 Oct, 2015 Toothache K08.8 [facility] [address] [id number] [address] [place] [id number] 11 Oct, 2015 Dental examination Z01.20 [facility] [address] [facility] [id number] [address] [place] [address] 02 Oct, 2015 [facility] [address] [facility] [id number] [address] [place] [address] 18 Sep, 2015 [facility] [address] [facility] [id number] [address] [place] [address] Sep, Burning with urination R30.0 [place] [address] [facility] [id number] [address] [place] [address] Sep, Hematuria R31.9 ; Rheumatoid arthritis involving multiple sites with positive rheumatoid factor M05.89 and Rheumatoid arthritis flare M06.9 [place] [address] [facility] [id number] [address] [place] [address] Aug, Hyperlipidemia, unspecified hyperlipidemia E78.5 and Hematuria R31.9 [place] [address] [facility] [id number] [address] [place] [address] Aug, Hematuria R31.9 ; Chronic ki dney disease, stage 1 N18.1 and Hyperlipidemia, unspecified hyperlipidemia E78.5 [facility] [address] [facility] [id number] [address] [place] [address] Aug, Rheumatoid arthritis involvi ng multiple sites with positive rheumatoid factor M05.89 ; Asthma exacerbation J45.901 ; Hematuria R31.9 ; Hyperlipidemia, unspecified hyperlipidemia E78.5 and Chronic kidney disease, stage 1 N18.1 [place] [address] [facility] [id number] [address] [place] [address] Aug, [facility] [address] [id number] [address] [place] [address] Jul, [facility] [address] [facility] [id number] [address] [place] [address] Jul, Lumbosacral radiculopathy M5 4.17 [facility] [address] [facility] [id number] [address] [place] [address] Jul, [facility] [address] [facility] [id number] [address] [place] [address] Jun, Rheumatoid arthritis involvi ng multiple sites with positive rheumatoid factor M05.89 ; Hyperlipidemia, unspecified hyperlipidemia E78.5 ; Lumbosacral radiculopathy M54.17 ; Carpal tunnel syndrome, right upper limb G56.01 and Carpal tunnel syndrome, left upper limb G56.02 [facility] [address] [place] [id number] [address] [place] [address] Jun, [facility] [address] [facility] [id number] [address] [place] [address] May, Lumbar radicular pain 724.4 and Dysuria 788.1 [facility] [address] [facility] [id number] [address] [place] [address] 08 May, 2015 Rheumatoid arthritis 714.0 ; Lumbar radicular pain 724.4 ; Burn 949.0 and Thoracic back pain 724.1 [facility] [address] [facility] [id number] [address] [place] [address] May, [facility] [address] [facility] [id number] [address] [place] [address] May, [facility] [address] [facility] [id number] [address] [place] [address] Apr, [facility] [address] [facility] [id number] [address] [place] [address] Mar, Hyperlipidemia 272.4 [facility] [address] [facility] [id number] [address] [place] [address] Mar, [facility] [address] [id number] [address] [place] [address] Mar, [facility] [address] [facility] [id number] [address] [place] [id number] Mar, Diarrhea 787.91 ; Chronic ki dney disease, unspecified 585.9 ; Hyperlipidemia 272.4 and Asthma 493.90 [facility] [address] [id number] [address] [place] [id number] Mar, [facility] [address] [facility] [id number] [address] [place] [id number] Mar, Gastroenteritis 558.9 [facility] [address] [facility] [id number] [address] [place] [id number] Feb, [facility] [address] [facility] [id number] [address] [place] [id number] January, [facility] [address] [id number] [address] [place] [id number] January, [facility] [address] [id number] [address] [place] [id number] Dec, [facility] [address] [facility] [id number] [address] [place] [id number] Dec, [facility] [address] [id number] [address] [place] [address] [id number] Nov, [facility] [address] [id number] [address] [place] [id number] Nov, [facility] [address] [id number] [address] [place] [id number] Nov, [facility] [address] [facility] [id number] [address] [place] [address] Nov, [facility] [address] [facility] [id number] [address] [place] [address] Nov, [facility] [address] [id number] [address] [place] [address], [place] [address] Nov, [facility] [address] [id number] [address] [place] [address], [place] [address] Oct, [facility] [address] [id number] [address] [place] [address], [place] [address] Oct, [facility] [address] [id number] [address] [place] [address], [place] [address] Sep, [facility] [address] [id number] [address] [place] [address], [place] [address] Sep, [facility] [address] [id number] [address] [place] [address], [place] [address] Sep, [facility] [address] [id number] [address] [place] [address], [place] [address] Sep, [facility] [address] [id number] [address] [place] [address], [place] [address] Sep, [facility] [address] [id number] [address] [place] [address], [place] [address] Sep, [facility] [address] [id number] [address] [place] [address], [place] [address] Aug, [facility] [address] [id number] [address] [place] [address], [place] [address] Aug, [facility] [address] [id number] [address] [place] [address], [place] [address] Aug, [facility] [address] [id number] [address] [place] [address], [place] [address] Aug, [facility] [address] [id number] [address] [place] [address], [place] [address] Jul, [facility] [address] [id number] [address] [place] [address], [place] [address] Jul, [facility] [address] [id number] [address] [place] [address], [place] [address] Jul, [facility] [address] [id number] [address] [place] [address], [place] [address] Jul, [facility] [address] [id number] [address] [place] [address], [place] [address] Jul, [facility] [address] [id number] [address] [place] [address], [place] [address] Jul, [facility] [address] [id number] [address] [place] [address], [place] [address] Jul, [facility] [address] [id number] [address] [place] [address], [place] [address] Jul, [facility] [address] [id number] [address] [place] [address], [place] [address] Jul, [facility] [address] [id number] [address] [place] [address], [place] [address] Jun, [facility] [address] [id number] [address] [place] [address], [place] [address] 15 Jun, 2014 [facility] [address] [id number] [address] [place] [address], [place] [address] Jun, [facility] [address] [id number] [address] [place] [address], [place] [address] 25 May, 2014 [facility] [address] [id number] [address] [place] [address], [place] [address] 25 May, 2014 [facility] [address] [id number] [address] [place] [address], [place] [address] 24 May, 2014 [facility] [address] [id number] [address] [place] [address], [place] [address] 24 May, 2014 [facility] [address] [id number] [address] [place] [address], [place] [address] 24 May, 2014 [facility] [address] [id number] [address] [place] [address], [place] [address] 24 May, 2014 [facility] [address] [id number] [address] [place] [address] May, [facility] [address] [id number] [address] [place] [address] May, [facility] [address] [id number] [address] [place] [address] May, [facility] [address] [id number] [address] [place] [address] May, [facility] [address] [id number] [address] [place] [address] May, [facility] [address] [id number] [address] [place] [address] May, [facility] [address] [id number] [address] [place] [address] May, [facility] [address] [id number] [address] [place] [address] May, [facility] [address] [id number] [address] [place] [address] May, [facility] [address] [id number] [address] [place] [address] May, [facility] [address] [id number] [address] [place] [address] Apr, [facility] [address] [id number] [address] [place] [address] Apr, [facility] [address] [id number] [address] [place] [address] Aug, [facility] [address] [id number] [address] [place] [address] Jul, IMMUNIZATIONS No Known Immunizations SOCIAL HISTORY Never Assessed REASON FOR VISIT Controlled Med Refill PLAN OF CARE VITAL SIGNS MEDICATIONS Medication Instructions Dosage Frequency Start Date End Date Duration S tatus Cyclobenzaprine HCl 10 mg TAKE ONE TABLE T BY MOUTH THREE TIMES DAILY NEEDED 30 Active OxyContin 15 mg Orally every 12 hrs 1 tablet 12h 21 Jul, 2018 28 days Active Gabapentin 400 mg Orally Three times a day 2 capsules 8h 30 Active RESULTS No Results PROCEDURES No Known [...] History section x 2 Surgical History otolaryngologic surgery-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
--- OUTSIDE RECORDS SUMMARY | 2020-02-27 15:44 | XMS REPORT ---
Author Author Beba Díaz Doctor Organization [facility] Address Unknown Phone Unavailable Care Team Providers Care Card Assembler Name Role Phone Migration, Doctor Unavailable Unavailable PROBLEMS Type Condition ICD9-CM Code QOG20-UL Code Onset Dates Condition S tatus SNOMED Code Problem Vitamin D deficiency E55.9 Active 80354933 Problem Essential hypertension I10 Active 81235468 Problem Hyperlipidemia, unspecified hyperlipidemia E78.5 Active 32538283 Problem Pernicious anemia D51.0 Active 84 362923 Problem Atrophy of left kidney N26.1 Active 652893514 Problem Rheumatoid arthritis involvi ng multiple sites with positive rheumatoid factor M05.89 Active 718169999 Problem Colon wall thickening K63.9 Active 159101778 Problem Chronic prescription opiate use Z79.899 Active 628229419 Problem Osteoporosis M81.0 Active 1219869 6 Problem Moderate persistent asthma with acute exacerbation J45.41 Active 392869802684417 Problem Chronic pain syndrome G89.4 Active 687569575 Problem Lumbago with sciatica, left side M54.42 Active 610293796 Problem Gastroesophageal reflux disease, esophagitis pre sence not specified K21.9 Active 597089093 Problem Chronic kidney disease, stage 1 N18.1 Active 383870046 Problem Lumbago with sciatica, right side M54.41 Active 144483469720889 Problem Bladder wall thickening N32.89 Active 350185608 Problem Chronic constipation K59.00 Active 171430493 Problem Asthma exacerbation J45.901 Active 010646592 Problem Severe episode of recurrent major depressive disorder, without psychotic features F33.2 Active 85266312 Problem Generalized anxiety disorder F41.1 A ctive 81226761 Problem Moderate persistent asthma without complication J4 5.40 Active [id number] ALLERGIES No Information ENCOUNTERS Encounter Location Date Diagnosis [facility] [address] [facility] [id number] [address] [place] [id number] January, [facility] [address] [facility] [id number] [address] [place] [id number] Nov, Chronic pain syndrome G89.4 [facility] [address] [facility] [id number] [address] [place] [address] Nov, [facility] [address] [place] [id number] [address] [place] [phone] Oct, Chronic pain syndrome G89.4 [facility] [address] [place] [id number] [address] [place] [id number] Oct, [facility] [address] [place] [id number] [address] [place] [id number] Oct, Viral upper respiratory trac t infection J06.9 ; Chronic constipation K59.00 ; Severe episode of recurrent major depressive disorder, without psychotic features F33.2 ; Moderate persistent asthma with acute exacerbation J45.41 ; Essential hypertension I10 ; Gastroesophageal reflux disease, esophagitis presence not specified K21.9 and Hyperlipidemia, unspecified hyperlipidemia E78.5 [facility] [address] [place] [id number] [address] [place] [phone] Oct, [place] [address] [place] [id number] [address] [place] [id number] Sep, Chronic pain syndrome G89.4 [place] [address] [place] [id number] [address] [place] [id number] Sep, Rheumatoid arthritis involvi ng multiple sites with positive rheumatoid factor M05.89 ; Chronic constipation K59.00 ; Gastroesophageal reflux disease, esophagitis presence not specified K21.9 ; Asthma exacerbation J45.901 ; Severe episode of recurrent major depressive disorder, without psychotic features F33.2 ; Ganglion cyst M67.40 and Chronic prescription opiate use Z79.899 [facility] [address] [place] [id number] [address] [place] [phone] Aug, Cough R05 and Moderate persi stent asthma with acute exacerbation J45.41 [facility] [address] [place] [id number] [address] [place] [address] Aug, Chronic pain syndrome G89.4 [place] [address] [id number] [address] [place] [id number] Jul, Chronic pain syndrome G89.4 [facility] [address] [id number] [address] [place] [id number] Jul, Acute nasopharyngitis J00 [facility] [address] [id number] [address] [place] [id number] Jun, [facility] [address] [id number] [address] [place] [id number] Jun, Chronic pain syndrome G89.4 [facility] [address] [id number] [address] [place] [id number] 21 May, 2018 Chronic pain syndrome G89.4 [facility] [address] [id number] [address] [place] [id number] 14 May, 2018 [facility] [address] [facility] [id number] [address] [place] [id number] 13 May, 2018 [facility] [address] [facility] [id number] [address] [place] [id number] May, Moderate persistent asthma w ith acute exacerbation J45.41 and Rheumatoid arthritis involving multiple sites with positive rheumatoid factor M05.89 [facility] [address] [facility] [id number] [address] [place] [id number] 12 May, 2018 Moderate persistent asthma w [facility] acute exacerbation J45.41 and Hypoxia R09.02 [facility] [address] [id number] [address] [place] [address] Apr, Chronic pain syndrome G89.4 [facility] [address] [facility] [id number] [address] [place] [id number] Mar, High ankle sprain of right l ower extremity, subsequent encounter S93.431D ; Lumbago with sciatica, left side M54.42 and Lumbago with sciatica, right side M54.41 [facility] [address] [facility] [id number] [address] [place] [phone] Mar, [facility] [address] [id number] [address] [place] [address] Mar, Chronic pain syndrome G89.4 [facility] [address] [id number] [address] [place] [id number] Mar, [facility] [address] [id number] [address] [place] [address] Mar, Asthma exacerbation J45.901 and Sprain of right ankle, unspecified ligament, subsequent encounter S93.401D [facility] [address] [id number] [address] [place] [address] Feb, Injury of right ankle, initi al encounter S99.911A [facility] [address] [id number] [address] [place] [id number] Feb, Chronic pain syndrome G89.4 [facility] [address] [id number] [address] [place] [id number] Feb, Chronic pain syndrome G89.4 [facility] [address] [id number] [address] [place] [id number] Feb, Moderate persistent asthma w ith acute exacerbation J45.41 and Persistent cough for 3 weeks or longer R05 [facility] [address] [id number] [address] [place] [id number] January, [facility] [address] [id number] [address] [place] [id number] January, Moderate persistent asthma w ith acute exacerbation J45.41 [facility] [address] [id number] [address] [place] [id number] January, Chronic pain syndrome G89.4 [facility] [address] [facility] [id number] [address] [place] [id number] January, Tachycardia R00.0 and Modera te persistent asthma with acute exacerbation J45.41 [facility] [address] [facility] [id number] [address] [place] [id number] January, Tachycardia R00.0 ; Moderate persistent asthma with acute exacerbation J45.41 ; Gastroesophageal reflux disease, esophagitis presence not specified K21.9 ; Hyperlipidemia, unspecified hyperlipidemia E78.5 and Chronic pain syndrome G89.4 [facility] [address] [facility] [id number] [address] [place] [id number] Dec, Medicare annual wellness vis it, initial [...] immunization Z23 and Chronic pain syndrome G89.4 [place] [address] [place] [id number] [address] [place] [phone] Dec, Chronic pain syndrome G89.4 [place] [address] [facility] [id number] [address] [place] [id number] Dec, [place] [address] [facility] [id number] [address] [place] [phone] Nov, [place] [address] [facility] [id number] [address] [place] [id number] Nov, Chronic pain syndrome G89.4 [place] [address] [place] [id number] [address] [place] [id number] Oct, Chronic pain syndrome G89.4 [place] [address] [place] [id number] [address] [place] [id number] Oct, Chronic kidney disease, stag e 1 N18.1 [place] [address] [facility] [id number] [address] [place] [id number] 07 Oct, 2017 Chronic prescription opiate use Z79.899 ; Cough R05 ; Asthma exacerbation J45.901 ; Elevated liver enzymes R74.8 ; Rheumatoid arthritis involving multiple sites with positive rheumatoid factor M05.89 and Chronic pain syndrome G89.4 [facility] [address] [id number] [address] [place] [id number] Sep, Chronic pain syndrome G89.4 [facility] [address] [id number] [address] [place] [id number] Sep, [facility] [address] [facility] [id number] [address] [place] [id number] Aug, Acute bronchitis, unspecifie d organism J20.9 [facility] [address] [facility] [id number] [address] [place] [address] Aug, Chronic pain syndrome G89.4 [facility] [address] [facility] [id number] [address] [place] [address] Jul, Chronic pain syndrome G89.4 [facility] [address] [facility] [id number] [address] [place] [id number] Jun, Chronic pain syndrome G89.4 [facility] [address] [id number] [address] [place] [id number] 29 May, 2017 Rheumatoid arthritis involvi ng multiple sites with positive rheumatoid factor M05.89 [facility] [address] [facility] [id number] [address] [place] [id number] 26 May, 2017 Gastroesophageal reflux dise ase, esophagitis presence not specified K21.9 and Chronic pain syndrome G89.4 [facility] [address] [facility] [id number] [address] [place] [phone] May, [facility] [address] [facility] [id number] [address] [place] [phone] 12 May, 2017 Esophageal candidiasis B37.8 1 and Chronic kidney disease, stage 1 N18.1 [facility] [address] [facility] [id number] [address] [place] [id number] 11 May, 2017 Chronic kidney disease, stag e 1 N18.1 [facility] [address] [facility] [id number] [address] [place] [address] May, Cough R05 ; Fever, unspecifi ed fever cause R50.9 ; Rheumatoid arthritis involving multiple sites with positive rheumatoid factor M05.89 and Chronic prescription opiate use Z79.899 [facility] [address] [place] [id number] [address] [place] [phone] Apr, [facility] [address] [place] [id number] [address] [place] [id number] Apr, Cough R05 [facility] [address] [place] [id number] [place] [address] Apr, Asthma exacerbation J45.901 [place] [address] [phone] Apr, [place] [address] [place] [id number] [place] [address] Apr, Generalized anxiety disorder F41.1 and Severe episode of recurrent major depressive disorder, without psychotic features F33.2 [place] [id number] [place] [address] Mar, [place] [address] [id number] Feb, Chronic pain syndrome G89.4 [place] [address] [place] [id number] [address] [place] [id number] Feb, Acute non-recurrent maxillar y sinusitis J01.00 [place] [address] [place] [id number] [address] [place] [id number] Feb, Acute non-recurrent frontal sinusitis J01.10 [place] [address] [place] [id number] [address] [place] [id number] Feb, Chronic pain syndrome G89.4 [facility] [address] [place] [id number] [address] [place] [phone] January, Acute cystitis with hematuri a N30.01 [place] [address] [place] [id number] [address] [place] [id number] January, Acute cystitis with hematuri a N30.01 ; Dysuria R30.0 and Moderate persistent asthma with acute exacerbation J45.41 [place] [address] [facility] [id number] [address] [place] [id number] January, [place] [address] [place] [id number] [address] [place] [phone] January, Chronic pain syndrome G89.4 [place] [address] [place] [id number] [address] [place] [address] January, Asthma exacerbation J45.901 [place] [address] [place] [id number] [address] [place] [address] January, Asthma exacerbation J45.901 [place] [address] [place] [id number] [address] [place] [id number] Dec, Cough R05 ; Numbness in both hands R20.0 ; Ground glass opacity present on imaging of lung R91.8 ; Hypoxia R09.02 and Asthma exacerbation J45.901 [place] [address] [facility] [id number] [address] [place] [address] Dec, Chronic pain syndrome G89.4 [place] [address] [place] [id number] [address] [place] [address] Nov, Chronic prescription opiate use Z79.899 ; Rheumatoid arthritis involving multiple sites with positive rheumatoid factor M05.89 ; Moderate persistent asthma with acute exacerbation J45.41 ; Pneumonia of right lower lobe due to infectious organism J18.1 ; Chronic pain syndrome G89.4 ; Gastroesophageal reflux disease, esophagitis presence not specified K21.9 and Hyperlipidemia, unspecified hyperlipidemia E78.5 [place] [address] [place] [id number] [address] [place] [phone] Nov, Rheumatoid arthritis involvi ng multiple sites with positive rheumatoid factor M05.89 [place] [address] [place] [id number] [address] [place] [id number] Oct, [place] [address] [place] [id number] [address] [place] [id number] Oct, Essential hypertension I10 [facility] [address] [facility] [id number] [address] [place] [address] Sep, Hypoxia R09.02 and Ground gl ass opacity present on imaging of lung R91.8 [facility] [address] [facility] [id number] [address] [place] [id number] Sep, Moderate persistent asthma w ith acute exacerbation J45.41 [facility] [id number] [place] [id number] Sep, [place] [address] [facility] [id number] [address] [place] [address] Sep, Chronic constipation K59.00 and Moderate persistent asthma with acute exacerbation J45.41 [facility] [address] [facility] [id number] [address] [place] [id number] Sep, Moderate persistent asthma w ith acute exacerbation J45.41 [facility] [address] [facility] [id number] [address] [place] [phone] Aug, [facility] [address] [facility] [id number] [address] [place] [id number] Aug, [facility] [address] [facility] [id number] [address] [place] [address] Aug, [facility] [address] [facility] [id number] [address] [place] [address] Aug, Rheumatoid arthritis involvi ng multiple sites with positive rheumatoid factor M05.89 ; Essential hypertension I10 ; Hyperlipidemia, unspecified hyperlipidemia E78.5 ; Chronic constipation K59.00 and Moderate persistent asthma with acute exacerbation J45.41 [facility] [address] [facility] [id number] [address] [place] [address] Aug, Bronchitis J40 [facility] [address] [facility] [id number] [address] [place] [address] Aug, Rheumatoid arthritis involvi ng multiple sites with positive rheumatoid factor M05.89 [facility] [address] [facility] [id number] [address] [place] [phone] Aug, Pharyngitis, unspecified pablito ology J02.9 and Acute nasopharyngitis J00 [facility] [address] [facility] [id number] [address] [place] [phone] Aug, [facility] [address] [facility] [id number] [address] [place] [address] Jul, [facility] [address] [facility] [id number] [address] [place] [address] Jul, Rheumatoid arthritis involvi ng multiple sites with positive rheumatoid factor M05.89 ; Essential hypertension I10 ; Hyperlipidemia, unspecified hyperlipidemia E78.5 ; Rash R21 ; Mild persistent asthma with acute exacerbation J45.31 ; Hematuria R31.9 ; Osteoporosis M81.0 and Gastroesophageal reflux disease, esophagitis presence not specified K21.9 [facility] [address] [facility] [id number] [address] [place] [phone] Jun, [facility] [address] [facility] [id number] [address] [place] [id number] Jun, Dysuria R30.0 [facility] [address] [facility] [id number] [address] [place] [phone] Jun, Acute non-recurrent maxillar y sinusitis J01.00 and Dysuria R30.0 [facility] [address] [facility] [id number] [address] [place] [phone] May, [facility] [address] [facility] [id number] [address] [place] [address] May, [facility] [address] [place] [id number] [address] [place] [address] Apr, Chronic prescription opiate use Z79.899 and Rheumatoid arthritis involving multiple sites with positive rheumatoid factor M05.89 [facility] [address] [place] [id number] [address] [place] [id number] Mar, [place] [address] [place] [id number] [address] [place] [phone] Feb, Dizziness of unknown cause R 42 and Other chronic pain G89.29 [place] [address] [place] [id number] [address] [place] [phone] Feb, [place] [address] [address] Feb, Shortness of breath R06.02 [place] [address] [place] [id number] [place] [address] January, [address] [address] January, Rheumatoid arthritis involvi ng multiple sites with positive rheumatoid factor M05.89 ; Chronic prescription opiate use Z79.899 ; Hyperlipidemia, unspecified hyperlipidemia E78.5 ; Cough R05 ; Exposure to pneumonia Z20.828 ; Diarrhea, unspecified type R19.7 ; Weight loss R63.4 ; Lumbago with sciatica, right side M54.41 and Lumbago with sciatica, left side M54.[address] [address] Dec, [place] [address] [place] [id number] [address] [place] [address] Dec, Bronchitis J40 [place] [address] [place] [id number] [place] [address] Nov, [place] [id number] [place] [address] Nov, [address] [address] Nov, [place] [id number] [address] [place] [address] Nov, Bloody diarrhea R19.7 ; Silva n wall thickening K63.9 ; Shortness of breath R06.02 and Bladder wall thickening N32.89 [facility] [address] [id number] [address] [place] [id number] 15 Oct, 2015 Dental examination Z01.20 [facility] [address] [id number] [address] [place] [id number] 15 Oct, 2015 [facility] [address] [id number] [address] [place] [phone] 15 Oct, 2015 Toothache K08.8 [facility] [address] [id number] [address] [place] [address] [id number] 11 Oct, 2015 Dental examination Z01.20 [facility] [address] [id number] [address] [place] [id number] 02 Oct, 2015 [facility] [address] [facility] [id number] [address] [place] [id number] 18 Sep, 2015 [facility] [address] [facility] [id number] [address] [place] [id number] Sep, Burning with urination R30.0 [facility] [address] [id number] [address] [place] [phone] Sep, Hematuria R31.9 ; Rheumatoid arthritis involving multiple sites with positive rheumatoid factor M05.89 and Rheumatoid arthritis flare M06.9 [place] [address] [facility] [id number] [address] [place] [address] Aug, Hyperlipidemia, unspecified hyperlipidemia E78.5 and Hematuria R31.9 [facility] [address] [id number] [address] [place] [address] Aug, Hematuria R31.9 ; Chronic ki dney disease, stage 1 N18.1 and Hyperlipidemia, unspecified hyperlipidemia E78.5 [place] [address] [facility] [id number] [address] [place] [id number] Aug, Rheumatoid arthritis involvi ng multiple sites with positive rheumatoid factor M05.89 ; Asthma exacerbation J45.901 ; Hematuria R31.9 ; Hyperlipidemia, unspecified hyperlipidemia E78.5 and Chronic kidney disease, stage 1 N18.1 [facility] [address] [id number] [address] [place] [id number] Aug, [facility] [address] [id number] [address] [place] [phone] Jul, [facility] [address] [id number] [address] [place] [id number] Jul, Lumbosacral radiculopathy M5 4.17 [facility] [address] [id number] [address] [place] [phone] Jul, [facility] [address] [id number] [address] [place] [id number] Jun, Rheumatoid arthritis involvi ng multiple sites with positive rheumatoid factor M05.89 ; Hyperlipidemia, unspecified hyperlipidemia E78.5 ; Lumbosacral radiculopathy M54.17 ; Carpal tunnel syndrome, right upper limb G56.01 and Carpal tunnel syndrome, left upper limb G56.02 [facility] [address] [id number] [address] [place] [id number] Jun, [facility] [address] [id number] [address] [place] [id number] May, Lumbar radicular pain 724.4 and Dysuria 788.1 [facility] [address] [id number] [address] [place] [id number] 08 May, 2015 Rheumatoid arthritis 714.0 ; Lumbar radicular pain 724.4 ; Burn 949.0 and Thoracic back pain 724.1 [facility] [address] [id number] [address] [place] [address] May, [facility] [address] [id number] [address] [place] [id number] May, [facility] [address] [id number] [address] [place] [id number] Apr, [facility] [address] [id number] [address] [place] [id number] Mar, Hyperlipidemia 272.4 [facility] [address] [id number] [address] [place] [address] Mar, [facility] [address] [id number] [address] [place] [id number] Mar, [facility] [address] [id number] [address] [place] [id number] Mar, Diarrhea 787.91 ; Chronic ki dney disease, unspecified 585.9 ; Hyperlipidemia 272.4 and Asthma 493.90 [facility] [address] [id number] [address] [place] [id number] Mar, [facility] [address] [facility] [id number] [address] [place] [id number] Mar, Gastroenteritis 558.9 [facility] [address] [id number] [address] [place] [id number] Feb, [facility] [address] [id number] [address] [place] [id number] January, [facility] [address] [facility] [id number] [address] [place] [id number] January, [facility] [address] [facility] [id number] [address] [place] [id number] Dec, [facility] [address] [id number] [address] [place] [id number] Dec, [facility] [address] [id number] [address] [place] [id number] Nov, [facility] [address] [id number] [address] [place] [phone] Nov, [facility] [address] [id number] [address] [place] [id number] Nov, [facility] [address] [id number] [address] [place] [id number] Nov, [facility] [address] [id number] [address] [place] [address], [place] [address] Nov, [facility] [address] [id number] [address] [place] [address], [place] [address] Nov, [facility] [address] [id number] [address] [place] [address], [place] [address] Oct, [facility] [address] [id number] [address] [place] [address], [place] [address] Oct, [facility] [address] [id number] [address] [place] [address], [place] [address] Sep, [facility] [address] [id number] [address] [place] [address], [place] [address] Sep, [facility] [address] [id number] [address] [place] [address], [place] [address] Sep, [facility] [address] [id number] [address] [place] [address], [place] [address] Sep, [facility] [address] [id number] [address] [place] [address], [place] [address] Sep, [facility] [address] [id number] [address] [place] [address], [place] [address] Sep, [facility] [address] [id number] [address] [place] [address], [place] [address] Aug, [facility] [address] [id number] [address] [place] [address], [place] [address] Aug, [facility] [address] [id number] [address] [place] [address], [place] [address] Aug, [facility] [address] [id number] [address] [place] [address], [place] [address] Aug, [facility] [address] [id number] [address] [place] [address], [place] [address] Jul, [facility] [address] [id number] [address] [place] [address] [place] [address] Jul, [facility] [address] [id number] [address] [place] [address], [place] [address] Jul, [facility] [address] [id number] [address] [place] [address], [place] [address] Jul, [facility] [address] [id number] [address] [place] [address], [place] [address] Jul, [facility] [address] [id number] [address] [place] [address], [place] [address] Jul, [facility] [address] [id number] [address] [place] [address], [place] [address] Jul, [facility] [address] [id number] [address] [place] [address], [place] [address] Jul, [facility] [address] [id number] [address] [place] [address], [place] [address] Jul, [facility] [address] [id number] [address] [place] [address], [place] [address] Jun, [facility] [address] [id number] [address] [place] [address], [place] [address] Jun, [facility] [address] [id number] [address] [place] [address], [place] [address] Jun, [facility] [address] [id number] [address] [place] [address], [place] [address] 25 May, 2014 [facility] [address] [id number] [address] [place] [address], [place] [address] 25 May, 2014 [facility] [address] [id number] [address] [place] [address], [place] [address] 24 May, 2014 [facility] [address] [id number] [address] [place] [address], [place] [address] 24 May, 2014 [facility] [address] [id number] [address] [place] [address], [place] [address] 24 May, 2014 [facility] [address] [id number] [address] [place] [address] 24 May, 2014 [facility] [address] [id number] [address] [place] [address] May, [facility] [address] [id number] [address] [place] [address] May, [facility] [address] [id number] [address] [place] [address] May, [facility] [address] [id number] [address] [place] [address] May, [facility] [address] [id number] [address] [place] [address] May, [facility] [address] [id number] [address] [place] [address] May, [facility] [address] [id number] [address] [place] [address] May, [facility] [address] [id number] [address] [place] [id number] May, [facility] [address] [id number] [address] [place] [address] May, [facility] [address] [id number] [address] [place] [phone] May, [facility] [address] [id number] [address] [place] [address] Apr, [facility] [address] [id number] [address] [place] [address] Apr, [facility] [address] [id number] [address] [place] [id number] Aug, [facility] [address] [id number] [address] [place] [id number] Jul, IMMUNIZATIONS No Known Immunizations SOCIAL HISTORY Never Assessed REASON FOR VISIT EMR-[facility] [place] PLAN OF CARE VITAL SIGNS MEDICATIONS Unknown [...]
--- OUTSIDE RECORDS SUMMARY | 2020-02-27 15:44 | XMS REPORT ---
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 Name Role Phone DEREK NI Unavailable PROBLEMS Type Condition ICD9-CM Code VIT39-NE Code Onset Dates Condition S tatus SNOMED Code Problem Osteoporosis M81.0 Active 1864956 6 Problem Chronic pain syndrome G89.4 Active 881628147 Problem Moderate persistent asthma with acute exacerbation J45.41 Active [id number] Problem Lumbago with sciatica, right side M54.41 Active 590160589596599 Problem Chronic constipation K59.00 Active 902498180 Problem Lumbago with sciatica, left side M54.42 Active 048622075 Problem Chronic kidney disease, stage 1 N18.1 Active 960693946 Problem Severe episode of recurrent major depressive disorder, without psychotic features F33.2 Active 40239603 Problem Asthma exacerbation J45.901 Active 805209161 Problem Moderate persistent asthma without complication J4 5.40 Active 356908022 Problem Generalized anxiety disorder F41.1 A ctive 32741559 Problem Pernicious anemia D51.0 Active 84 520725 Problem Hyperlipidemia, unspecified hyperlipidemia E78.5 Active 75719100 Problem Essential hypertension I10 Active 02462277 Problem Vitamin D deficiency E55.9 Active 62587140 Problem Chronic prescription opiate use Z79.899 Active 238895811 Problem Colon wall thickening K63.9 Active 285570655 Problem Rheumatoid arthritis involvi ng multiple sites with positive rheumatoid factor M05.89 Active 739270550 Problem Bladder wall thickening N32.89 Active 612395530 Problem Atrophy of left kidney N26.1 Active 463972144 Problem Gastroesophageal reflux disease, esophagitis pre sence not specified K21.9 Active 781356865 ALLERGIES Substance Reaction Event Type Date Status Penicillin V Potassium Cannot tolerate Oral PCN. St ates she can tolerate injections Drug Allergy Jul, Active Orencia Unknown Drug Allergy Jul, Active Cipro Unknown Drug Allergy Jul, Active Codeine Unknown Drug Allergy Jul, Active Ivp Dye anaphylaxis Non Drug Allergy Jul, Active ENCOUNTERS Encounter [facility] Date [facility] [address] [facility] [id number] [address] [place] [address] Jul, Acute nasopharyngitis J00 [facility] [place] [address] [facility] [id number] [address] [place] [phone] Jun, [facility] [place] [address] [facility] [id number] [address] [place] [address] Jun, Chronic pain syndrome G89.4 [facility] [place] [address] [facility] [id number] [address] [place] [phone] 21 May, 2018 Chronic pain syndrome G89.4 [facility] [place] [address] [facility] [id number] [address] [place] [id number] 14 May, 2018 [facility] [place] [address] [facility] [id number] [address] [place] [phone] 13 May, 2018 [facility] [place] [address] [facility] [id number] [address] [place] [id number] 13 May, 2018 Moderate persistent asthma w ith acute exacerbation J45.41 [facility] [place] [address] [facility] [id number] [address] [place] [address] May, Moderate persistent asthma w ith acute exacerbation J45.41 and Hypoxia R09.02 [facility] [place] [address] [facility] [id number] [address] [place] [phone] Apr, Chronic pain syndrome G89.4 [facility] [place] [address] [facility] [id number] [address] [place] [address] Mar, High ankle sprain of right l ower extremity, subsequent encounter S93.431D ; Lumbago with sciatica, left side M54.42 and Lumbago with sciatica, right side M54.41 [facility] [place] [address] [facility] [id number] [address] [place] [address] Mar, [facility] [place] [address] [id number] [address] [place] [id number] Mar, Chronic pain syndrome G89.4 [facility] [place] [address] [id number] [address] [place] [phone] Mar, [facility] [place] [address] [id number] [address] [place] [address] Mar, Asthma exacerbation J45.901 and Sprain of right ankle, unspecified ligament, subsequent encounter S93.401D [facility] [address] [id number] [address] [place] [phone] 30 Feb, 2018 Injury of right ankle, initi al encounter S99.911A [facility] [place] [address] [id number] [address] [place] [address] Feb, Chronic pain syndrome G89.4 [facility] [place] [address] [id number] [address] [place] [address] Feb, Chronic pain syndrome G89.4 [facility] [place] [address] [id number] [address] [place] [address] Feb, Moderate persistent asthma w ith acute exacerbation J45.41 and Persistent cough for 3 weeks or longer R05 [facility] [place] [address] [id number] [address] [place] [phone] January, [facility] [place] [address] [id number] [address] [place] [address] January, Moderate persistent asthma w ith acute exacerbation J45.41 [facility] [place] [address] [id number] [address] [place] [address] January, Chronic pain syndrome G89.4 [facility] [place] [address] [facility] [id number] [address] [place] [address] January, Tachycardia R00.0 and Modera te persistent asthma with acute exacerbation J45.41 [facility] [place] [address] [facility] [id number] [address] [place] [address] January, Tachycardia R00.0 ; Moderate persistent asthma with acute exacerbation J45.41 ; Gastroesophageal reflux disease, esophagitis presence not specified K21.9 ; Hyperlipidemia, unspecified hyperlipidemia E78.5 and Chronic pain syndrome G89.4 [facility] [place] [address] [facility] [id number] [address] [place] [address] Dec, Medicare annual wellness vis it, initial [...] immunization Z23 and Chronic pain syndrome G89.4 [place] [id number] [place] [address] Dec, Chronic pain syndrome G89.4 [place] [address] [facility] [id number] [address] [place] [address] Dec, [place] [address] [facility] [id number] [address] [place] [address] Nov, [place] [address] [place] [id number] [address] [place] [address] Nov, Chronic pain syndrome G89.4 [place] [address] [place] [id number] [address] [place] [address] Oct, Chronic pain syndrome G89.4 [place] [address] [place] [id number] [address] [place] [id number] 08 Oct, 2017 Chronic kidney disease, stag e 1 N18.1 [place] [address] [facility] [id number] [address] [place] [address] 07 Oct, 2017 Chronic prescription opiate use Z79.899 ; Cough R05 ; Asthma exacerbation J45.901 ; Elevated liver enzymes R74.8 ; Rheumatoid arthritis involving multiple sites with positive rheumatoid factor M05.89 and Chronic pain syndrome G89.4 [facility] [place] [address] [id number] [address] [place] [phone] Sep, Chronic pain syndrome G89.4 [facility] [place] [address] [facility] [id number] [address] [place] [address] Sep, [facility] [place] [address] [facility] [id number] [address] [place] [address] Aug, Acute bronchitis, unspecifie d organism J20.9 [facility] [place] [address] [facility] [id number] [address] [place] [address] Aug, Chronic pain syndrome G89.4 [facility] [place] [address] [facility] [id number] [address] [place] [address] Jul, Chronic pain syndrome G89.4 [facility] [place] [address] [facility] [id number] [address] [place] [address] Jun, Chronic pain syndrome G89.4 [facility] [place] [address] [facility] [id number] [address] [place] [phone] 29 May, 2017 Rheumatoid arthritis involvi ng multiple sites with positive rheumatoid factor M05.89 [facility] [place] [address] [facility] [id number] [address] [place] [address] May, Gastroesophageal reflux dise ase, esophagitis presence not specified K21.9 and Chronic pain syndrome G89.4 [facility] [place] [address] [facility] [id number] [address] [place] [address] May, [facility] [place] [address] [facility] [id number] [address] [place] [address] May, Esophageal candidiasis B37.8 1 and Chronic kidney disease, stage 1 N18.1 [facility] [place] [address] [facility] [id number] [address] [place] [address] 11 May, 2017 Chronic kidney disease, stag e 1 N18.1 [facility] [place] [address] [facility] [id number] [address] [place] [address] May, Cough R05 ; Fever, unspecifi ed fever cause R50.9 ; Rheumatoid arthritis involving multiple sites with positive rheumatoid factor M05.89 and Chronic prescription opiate use Z79.899 [facility] [place] [address] [place] [id number] [address] [place] [phone] Apr, [place] [address] [place] [id number] [address] [place] [address] Apr, Cough R05 [facility] [place] [address] [place] [id number] [place] [address] Apr, Asthma exacerbation J45.901 [place] [address] [address] Apr, [place] [address] [place] [id number] [place] [address] Apr, Generalized anxiety disorder F41.1 and Severe episode of recurrent major depressive disorder, without psychotic features F33.2 [place] [address] [place] [address] Mar, [place] [address] [address] Feb, Chronic pain syndrome G89.4 [place] [address] [place] [id number] [place] [address] Feb, Acute non-recurrent maxillar y sinusitis J01.00 [place] [address] [place] [id number] [address] [place] [address] Feb, Acute non-recurrent frontal sinusitis J01.10 [place] [address] [place] [id number] [address] [place] [address] Feb, Chronic pain syndrome G89.4 [place] [address] [place] [id number] [address] [place] [address] January, Acute cystitis with hematuri a N30.01 [place] [address] [place] [id number] [address] [place] [address] January, Acute cystitis with hematuri a N30.01 ; Dysuria R30.0 and Moderate persistent asthma with acute exacerbation J45.41 [place] [address] [facility] [id number] [address] [place] [address] January, [place] [address] [facility] [id number] [address] [place] [address] January, Chronic pain syndrome G89.4 [place] [address] [facility] [id number] [address] [place] [address] January, Asthma exacerbation J45.901 [place] [address] [facility] [id number] [address] [place] [address] January, Asthma exacerbation J45.901 [place] [address] [facility] [id number] [address] [place] [address] Dec, Cough R05 ; Numbness in both hands R20.0 ; Ground glass opacity present on imaging of lung R91.8 ; Hypoxia R09.02 and Asthma exacerbation J45.901 [place] [address] [facility] [id number] [address] [place] [address] Dec, Chronic pain syndrome G89.4 [place] [address] [facility] [id number] [address] [place] [address] Nov, Chronic prescription opiate use Z79.899 ; Rheumatoid arthritis involving multiple sites with positive rheumatoid factor M05.89 ; Moderate persistent asthma with acute exacerbation J45.41 ; Pneumonia of right lower lobe due to infectious organism J18.1 ; Chronic pain syndrome G89.4 ; Gastroesophageal reflux disease, esophagitis presence not specified K21.9 and Hyperlipidemia, unspecified hyperlipidemia E78.5 [place] [address] [facility] [id number] [address] [place] [address] Nov, Rheumatoid arthritis involvi ng multiple sites with positive rheumatoid factor M05.89 [place] [address] [facility] [id number] [address] [place] [address] Oct, [place] [address] [place] [id number] [address] [place] [address] Oct, Essential hypertension I10 [facility] [place] [address] [facility] [id number] [address] [place] [address] Sep, Hypoxia R09.02 and Ground gl ass opacity present on imaging of lung R91.8 [facility] [place] [address] [facility] [id number] [address] [place] [address] Sep, Moderate persistent asthma w ith acute exacerbation J45.41 [facility] [id number] [place] [address] [id number] Sep, [place] [address] [facility] [id number] [address] [place] [address] Sep, Chronic constipation K59.00 and Moderate persistent asthma with acute exacerbation J45.41 [facility] [place] [address] [facility] [id number] [address] [place] [address] Sep, Moderate persistent asthma w ith acute exacerbation J45.41 [facility] [place] [address] [id number] [address] [place] [address] Aug, [facility] [place] [address] [facility] [id number] [address] [place] [address] Aug, [facility] [place] [address] [facility] [id number] [address] [place] [address] Aug, [facility] [place] [address] [facility] [id number] [address] [place] [address] Aug, Rheumatoid arthritis involvi ng multiple sites with positive rheumatoid factor M05.89 ; Essential hypertension I10 ; Hyperlipidemia, unspecified hyperlipidemia E78.5 ; Chronic constipation K59.00 and Moderate persistent asthma with acute exacerbation J45.41 [facility] [place] [address] [facility] [id number] [address] [place] [address] Aug, Bronchitis J40 [facility] [place] [address] [facility] [id number] [address] [place] [address] Aug, Rheumatoid arthritis involvi ng multiple sites with positive rheumatoid factor M05.89 [facility] [place] [address] [facility] [id number] [address] [place] [address] Aug, Pharyngitis, unspecified pablito ology J02.9 and Acute nasopharyngitis J00 [facility] [place] [address] [facility] [id number] [address] [place] [address] Aug, [facility] [place] [address] [facility] [id number] [address] [place] [address] Jul, [facility] [place] [address] [facility] [id number] [address] [place] [address] Jul, Rheumatoid arthritis involvi ng multiple sites with positive rheumatoid factor M05.89 ; Essential hypertension I10 ; Hyperlipidemia, unspecified hyperlipidemia E78.5 ; Rash R21 ; Mild persistent asthma with acute exacerbation J45.31 ; Hematuria R31.9 ; Osteoporosis M81.0 and Gastroesophageal reflux disease, esophagitis presence not specified K21.9 [facility] [place] [address] [facility] [id number] [address] [place] [address] Jun, [facility] [place] [address] [facility] [id number] [address] [place] [address] Jun, Dysuria R30.0 [facility]ALK IN [facility] [address] [facility] [id number] [address] [place] [address] Jun, Acute non-recurrent maxillar y sinusitis J01.00 and Dysuria R30.0 [facility] [place] [address] [facility] [id number] [address] [place] [address] May, [facility] [place] [address] [facility] [id number] [address] [place] [address] May, [facility] [place] [address] [place] [id number] [address] [place] [address] Apr, Chronic prescription opiate use Z79.899 and Rheumatoid arthritis involving multiple sites with positive rheumatoid factor M05.89 [facility] [place] [address] [place] [id number] [address] [place] [address] Mar, [place] [address] [place] [id number] [address] [place] [address] Feb, Dizziness of unknown cause R 42 and Other chronic pain G89.29 [place] [address] [place] [id number] [address] [place] [address] Feb, [place] [address] [place] [id number] [place] [address] Feb, Shortness of breath R06.02 [place] [address] [place] [id number] [address] [place] [address] January, [place] [address] [address] January, Rheumatoid arthritis involvi ng multiple sites with positive rheumatoid factor M05.89 ; Chronic prescription opiate use Z79.899 ; Hyperlipidemia, unspecified hyperlipidemia E78.5 ; Cough R05 ; Exposure to pneumonia Z20.828 ; Diarrhea, unspecified type R19.7 ; Weight loss R63.4 ; Lumbago with sciatica, right side M54.41 and Lumbago with sciatica, left side M54.42 [place] [address] [address] Dec, [place] [address] [place] [id number] [address] [place] [address] Dec, Bronchitis J40 [place] [address] [place] [id number] [address] [place] [address] Nov, [place] [address] [place] [id number] [address] [place] [address] Nov, [address] [address] Nov, [place] [address] [place] [id number] [address] [place] [address] Nov, Bloody diarrhea R19.7 ; [place] n wall thickening K63.9 ; Shortness of breath R06.02 and Bladder wall thickening N32.89 [facility] [address] [id number] [address] [place] [address] [id number] 15 Oct, 2015 Dental examination Z01.20 [facility] [place] [address] [id number] [address] [place] [address] 15 Oct, 2015 [facility] [place] [address] [id number] [address] [place] [address] 15 Oct, 2015 Toothache K08.8 [facility] [address] [id number] [address] [place] [address] [id number] 11 Oct, 2015 Dental examination Z01.20 [facility] [place] [address] [id number] [address] [place] [phone] 02 Oct, 2015 [facility] [place] [address] [facility] [id number] [address] [place] [address] 18 Sep, 2015 [facility] [place] [address] [facility] [id number] [address] [place] [address] Sep, Burning with urination R30.0 [facility] [place] [address] [id number] [address] [place] [id number] Sep, Hematuria R31.9 ; Rheumatoid arthritis involving multiple sites with positive rheumatoid factor M05.89 and Rheumatoid arthritis flare M06.9 [place] [address] [facility] [id number] [address] [place] [id number] Aug, Hyperlipidemia, unspecified hyperlipidemia E78.5 and Hematuria R31.9 [facility] [place], [facility] [address] [id number] [address] [place] [id number] Aug, Hematuria R31.9 ; Chronic ki dney disease, stage 1 N18.1 and Hyperlipidemia, unspecified hyperlipidemia E78.5 [facility] [place], [facility] [address] [facility] [id number] [address] [place] [phone] Aug, Rheumatoid arthritis involvi ng multiple sites with positive rheumatoid factor M05.89 ; Asthma exacerbation J45.901 ; Hematuria R31.9 ; Hyperlipidemia, unspecified hyperlipidemia E78.5 and Chronic kidney disease, stage 1 N18.1 [facility] [place], [facility] [address] [id number] [address] [place] [id number] Aug, [facility] [place], [facility] [address] [id number] [address] [place] [id number] Jul, [place] [facility] [place], [facility] [address] [id number] [address] [place] [id number] Jul, Lumbosacral radiculopathy M5 4.17 [facility] [place] [address] [id number] [address] [place] [id number] Jul, [facility] [place] [address] [id number] [address] [place] [id number] Jun, Rheumatoid arthritis involvi ng multiple sites with positive rheumatoid factor M05.89 ; Hyperlipidemia, unspecified hyperlipidemia E78.5 ; Lumbosacral radiculopathy M54.17 ; Carpal tunnel syndrome, right upper limb G56.01 and Carpal tunnel syndrome, left upper limb G56.02 [facility] [place] [address] [id number] [address] [place] [id number] Jun, [facility] [place] [address] [id number] [address] [place] [phone] May, Lumbar radicular pain 724.4 and Dysuria 788.1 [facility] [place] [address] [id number] [address] [place] [id number] 08 May, 2015 Rheumatoid arthritis 714.0 ; Lumbar radicular pain 724.4 ; Burn 949.0 and Thoracic back pain 724.1 [facility] [place] [address] [id number] [address] [place] [phone] May, [facility] [place] [address] [id number] [address] [place] [phone] May, [facility] [place] [address] [id number] [address] [place] [id number] Apr, [facility] [place] [address] [id number] [address] [place] [id number] Mar, Hyperlipidemia 272.4 [facility] [place] [address] [id number] [address] [place] [phone] Mar, [facility] [place] [address] [id number] [address] [place] [id number] Mar, [facility] [place] [address] [id number] [address] [place] [id number] Mar, Diarrhea 787.91 ; Chronic ki dney disease, unspecified 585.9 ; Hyperlipidemia 272.4 and Asthma 493.90 [facility] [place] [address] [id number] [address] [place] [id number] Mar, [facility] [place] [address] [id number] [address] [place] [id number] Mar, Gastroenteritis 558.9 [facility] [place] [address] [id number] [address] [place] [phone] Feb, [facility] [place] [address] [id number] [address] [place] [phone] January, [facility] [place] [address] [id number] [address] [place] [id number] January, [facility] [place] [address] [id number] [address] [place] [phone] Dec, [facility] [place] [address] [id number] [address] [place] [id number] Dec, [facility] [place] [address] [id number] [address] [place] [id number] Nov, [facility] [place] [address] [id number] [address] [place] [phone] Nov, [facility] [place] [address] [id number] [address] [place] [phone] Nov, [facility] [place] [address] [id number] [address] [place] [id number] Nov, [facility] [address] [id number] [address] [place] [address], [place] [id number] Nov, [facility] [address] [id number] [address] [place] [address], [place] [phone] Nov, [facility] [address] [id number] [address] [place] [address], [place] [phone] Oct, [facility] [address] [id number] [address] [place] [address], [place] [id number] Oct, [facility] [address] [id number] [address] [place] [address], [place] [id number] Sep, [facility] [address] [id number] [address] [place] [address], [place] [phone] Sep, [facility] [address] [id number] [address] [place] [address], [place] [id number] Sep, [facility] [address] [id number] [address] [place] [address], [place] [address] Sep, [facility] [address] [id number] [address] [place] [address], [place] [id number] Sep, [facility] [address] [id number] [address] [place] [phone] Sep, [facility] [address] [id number] [address] [place] [address], [place] [address] Aug, [facility] [address] [id number] [address] [place] [phone] Aug, [facility] [address] [id number] [address] [place] [address], [place] [id number] Aug, [facility] [address] [id number] [address] [place] [address], [place] [address] Aug, [facility] [address] [id number] [address] [place] [address], [place] [id number] Jul, [facility] [address] [id number] [address] [place] [phone] Jul, [facility] [address] [id number] [address] [place] [address], [place] [id number] Jul, [facility] [address] [id number] [address] [place] [address], [place] [address] Jul, [facility] [address] [id number] [address] [place] [address], [place] [phone] Jul, [facility] [address] [id number] [address] [place] [address], [place] [phone] Jul, [facility] [address] [id number] [address] [place] [address], [place] [id number] Jul, [facility] [address] [id number] [address] [place] [address], [place] [address] Jul, [facility] [address] [id number] [address] [place] [address], [place] [id number] Jul, [facility] [address] [id number] [address] [place] [address], [place] [id number] Jun, [facility] [address] [id number] [address] [place] [address], [place] [address] Jun, [facility] [address] [id number] [address] [place] [address], [place] [phone] Jun, [facility] [address] [id number] [address] [place] [address], [place] [address] 25 May, 2014 [facility] [address] [id number] [address] [place] [phone] 25 May, 2014 [facility] [address] [id number] [address] [place] [address], [place] [id number] 24 May, 2014 [facility] [address] [id number] [address] [place] [address], [place] [address] 24 May, 2014 [facility] [address] [id number] [address] [place] [address], [place] [address] 24 May, 2014 [facility] [address] [id number] [address] [place] [address], [place] [id number] 24 May, 2013 [facility] [address] [id number] [address] [place] [phone] 19 May, 2013 [facility] [address] [id number] [address] [place] [address], [place] [address] 19 May, 2013 [facility] [address] [id number] [address] [place] [address], [place] [address] 11 May, 2013 [facility] [address] [id number] [address] [place] [address], [place] [address] 11 May, 2013 [facility] [address] [id number] [address] [place] [address], [place] [address] 11 May, 2013 [facility] [address] [id number] [address] [place] [address], [place] [id number] 11 May, 2013 [facility] [address] [id number] [address] [place] [address], [place] [address] 10 May, 2013 [facility] [address] [id number] [address] [place] [id number] 09 May, 2013 [facility] [address] [id number] [address] [place] [phone] May, 2013 [facility] [place] [address] [id number] [address] [place] [id number] 08 May, 2014 [facility] [place] [address] [id number] [address] [place] [phone] Apr, [facility] [place] [address] [id number] [address] [place] [phone] Apr, [facility] [place] [address] [id number] [address] [place] [id number] Aug, [facility] [place] [address] [id number] [address] [place] [id number] Jul, IMMUNIZATIONS No Known Immunizations SOCIAL HISTORY Never Assessed REASON FOR VISIT cough, congestion, headache for the past 5 days. [email or web address] PLAN OF CARE Activity Details Follow Up prn Reason: VITAL SIGNS Height 66 in 2018-07-30 Weight 140.0 lbs 2018-07-30 Temperature 98.1 degrees Fahrenheit 2018-07-30 Heart Rate 90 bpm 2018-07-30 Respiratory Rate 20 2018-07-30 BMI 22.59 kg/m2 2018-07-30 Blood pressure systolic 126 mmHg 2018-07-30 Blood pressure diastolic 78 mmHg 2018-07-30 MEDICATIONS Medication Instructions Dosage Frequency Start Date End Date Duration S tatus Tylenol Arthritis Pain by oral route 2 times a day 2tablets 12h Active Ibuprofen 200 MG Orally every 4-6 hours as needed 2 tablets Active Bystolic 10 mg Orally 2 times a day 1 tablet 12h 90 days Active Leflunomide 20 MG Orally Once a day 1 tablet 24h Active Simvastatin 40 mg Orally Once a day 1 tablet in the evening 24h Mar, 90 days Active Benzonatate 200 mg Orally Three times a day 1 capsule as needed 8h 10 Aug, 2018 30 days Active Cymbalta 60 mg Orally Once a day 1 capsule 24h Apr, 90 days Active Cetirizine HCl 10 mg Orally Once a day 1 tablet 24h Mar, 201 8 Aug, 30 day(s) Active ProAir HFA 108 (90 Base) MCG/ACT Inhalation every 4 hrs 2 puffs as needed 4h Mar, Active Omeprazole 40 mg Orally Once a day 1 capsule 24h Jul, 90 days Active Gabapentin 400 mg Orally Three times a day 2 capsules 8h 25 Dec, 18 Active Ipratropium-Albuterol 0.5-2.5 (3) mg/3ml Inhalation every 6 hrs 3 ml as needed 6h Active OxyContin 15 mg Orally every 12 hrs 1 tablet 12h 24 Jun, 2018 28 days Active Incruse Ellipta 62.5 MCG/INH Inhalation Once a day 1 puff 24h Active Guaifenesin 400 mg Orally every 4 hrs 1 tablet as needed 4h 1 4 Jan, 2018 Aug, 30 days Active Singulair 10 MG Orally Once a day 1 tablet 24h Active Breo Ellipta 200-25 MCG/INH Inhalation Once a day 1 puff 24h Active Cyclobenzaprine HCl 10 MG TAKE ONE TABLE T BY MOUTH THREE TIMES DAILY NEEDED 30 Active RESULTS No Results PROCEDURES No [...]
--- OUTSIDE RECORDS SUMMARY | 2020-02-27 15:44 | XMS REPORT ---
Author Author Beba GUO [facility] Address [address] [place] [address] Care Team Providers Care Rectifier Operator Name Role Phone TOBI GUO Unavailable PROBLEMS Type Condition ICD9-CM Code VGB64-QN Code Onset Dates Condition S tatus SNOMED Code Problem Osteoporosis M81.0 Active 2560780 6 Problem Chronic pain syndrome G89.4 Active 593005511 Problem Moderate persistent asthma with acute exacerbation J45.41 Active 032263386624464 Problem Lumbago with sciatica, right side M54.41 Active 805872732480442 Problem Chronic constipation K59.00 Active 017911043 Problem Lumbago with sciatica, left side M54.42 Active 291448255 Problem Chronic kidney disease, stage 1 N18.1 Active 558921447 Problem Severe episode of recurrent major depressive disorder, without psychotic features F33.2 Active 88772002 Problem Asthma exacerbation J45.901 Active 332826209 Problem Moderate persistent asthma without complication J4 5.40 Active 072698760 Problem Generalized anxiety disorder F41.1 A ctive 66522145 Problem Pernicious anemia D51.0 Active 84 070460 Problem Hyperlipidemia, unspecified hyperlipidemia E78.5 Active 71437696 Problem Essential hypertension I10 Active 14251537 Problem Vitamin D deficiency E55.9 Active 47017390 Problem Chronic prescription opiate use Z79.899 Active 796425316 Problem Colon wall thickening K63.9 Active 787772360 Problem Rheumatoid arthritis involvi ng multiple sites with positive rheumatoid factor M05.89 Active 198056406 Problem Bladder wall thickening N32.89 Active 320599063 Problem Atrophy of left kidney N26.1 Active 637216790 Problem Gastroesophageal reflux disease, esophagitis pre sence not specified K21.9 Active 114664442 ALLERGIES Substance Reaction Event Type Date Status Penicillin V Potassium Cannot tolerate Oral PCN. St ates she can tolerate injections Drug Allergy May, Active Orencia Unknown Drug Allergy May, Active Cipro Unknown Drug Allergy May, Active Codeine Unknown Drug Allergy May, Active Ivp Dye anaphylaxis Non Drug Allergy May, Active ENCOUNTERS Encounter Location Date Diagnosis [facility] [address] [facility] [id number] [address] [place] [phone] Jul, Chronic pain syndrome G89.4 [facility] [address] [facility] [id number] [address] [place] [id number] Jul, Acute nasopharyngitis J00 [facility] [address] [facility] [id number] [address] [place] [phone] Jun, [facility] [address] [facility] [id number] [address] [place] [phone] Jun, Chronic pain syndrome G89.4 [facility] [address] [facility] [id number] [address] [place] [address] May, Chronic pain syndrome G89.4 [facility] [address] [facility] [id number] [address] [place] [id number] 14 May, 2018 [facility] [address] [facility] [id number] [address] [place] [phone] May, [facility] [address] [facility] [id number] [address] [place] [phone] May, Moderate persistent asthma w ith acute exacerbation J45.41 and Rheumatoid arthritis involving multiple sites with positive rheumatoid factor M05.89 [facility] [address] [facility] [id number] [address] [place] [address] May, Moderate persistent asthma w ith acute exacerbation J45.41 and Hypoxia R09.02 [facility] [address] [facility] [id number] [address] [place] [address] Apr, Chronic pain syndrome G89.4 [facility] [address] [facility] [id number] [address] [place] [address] Mar, High ankle sprain of right l ower extremity, subsequent encounter S93.431D ; Lumbago with sciatica, left side M54.42 and Lumbago with sciatica, right side M54.41 [facility] [address] [id number] [address] [place] [phone] Mar, [facility] [address] [id number] [address] [place] [phone] Mar, Chronic pain syndrome G89.4 [facility] [address] [facility] [id number] [address] [place] [phone] Mar, [facility] [address] [facility] [id number] [address] [place] [id number] Mar, Asthma exacerbation J45.901 and Sprain of right ankle, unspecified ligament, subsequent encounter S93.401D [facility] [address] [facility] [id number] [address] [place] [address] Feb, Injury of right ankle, initi al encounter S99.911A [facility] [address] [facility] [id number] [address] [place] [phone] Feb, Chronic pain syndrome G89.4 [facility] [address] [id number] [address] [place] [phone] Feb, Chronic pain syndrome G89.4 [facility] [address] [facility] [id number] [address] [place] [address] Feb, Moderate persistent asthma w ith acute exacerbation J45.41 and Persistent cough for 3 weeks or longer R05 [facility] [address] [facility] [id number] [address] [place] [address] January, [facility] [address] [facility] [id number] [address] [place] [phone] January, Moderate persistent asthma w ith acute exacerbation J45.41 [facility] [address] [facility] [id number] [address] [place] [phone] January, Chronic pain syndrome G89.4 [facility] [address] [facility] [id number] [address] [place] [address] January, Tachycardia R00.0 and Modera te persistent asthma with acute exacerbation J45.41 [place] [address] [facility] [id number] [address] [place] [address] 11 Jan, 2018 Tachycardia R00.0 ; Moderate persistent asthma with acute exacerbation J45.41 ; Gastroesophageal reflux disease, esophagitis presence not specified K21.9 ; Hyperlipidemia, unspecified hyperlipidemia E78.5 and Chronic pain syndrome G89.4 [place] [address] [place] [id number] [address] [place] [phone] Dec, Medicare annual wellness vis it, initial [...] immunization Z23 and Chronic pain syndrome G89.4 [place] [address] [facility] [id number] [address] [place] [phone] Dec, Chronic pain syndrome G89.4 [place] [address] [place] [id number] [address] [place] [phone] Dec, [place] [address] [place] [id number] [address] [place] [phone] Nov, [place] [address] [facility] [id number] [address] [place] [address] Nov, Chronic pain syndrome G89.4 [place] [address] [facility] [id number] [address] [place] [phone] Oct, Chronic pain syndrome G89.4 [place] [address] [place] [id number] [address] [place] [id number] 08 Oct, 2017 Chronic kidney disease, stag e 1 N18.1 [place] [address] [place] [id number] [address] [place] [address] Oct, Chronic prescription opiate use Z79.899 ; Cough R05 ; Asthma exacerbation J45.901 ; Elevated liver enzymes R74.8 ; Rheumatoid arthritis involving multiple sites with positive rheumatoid factor M05.89 and Chronic pain syndrome G89.4 [facility] [address] [place] [id number] [address] [place] [address] Sep, Chronic pain syndrome G89.4 [facility] [address] [place] [id number] [address] [place] [phone] Sep, [place] [address] [place] [id number] [place] [phone] Aug, Acute bronchitis, unspecifie d organism J20.9 [place] [address] [place] [id number] [place] [address] Aug, Chronic pain syndrome G89.4 [place] [address] [place] [id number] [address] [place] [phone] Jul, Chronic pain syndrome G89.4 [place] [address] [place] [id number] [address] [place] [phone] Jun, Chronic pain syndrome G89.4 [place] [address] [place] [id number] [address] [place] [phone] May, Rheumatoid arthritis involvi ng multiple sites with positive rheumatoid factor M05.89 [place] [address] [place] [id number] [address] [place] [address] May, Gastroesophageal reflux dise ase, esophagitis presence not specified K21.9 and Chronic pain syndrome G89.4 [place] [address] [place] [id number] [address] [place] [phone] May, [place] [address] [place] [id number] [place] [address] May, Esophageal candidiasis B37.8 1 and Chronic kidney disease, stage 1 N18.1 [place] [address] [place] [id number] [address] [place] [address] May, Chronic kidney disease, stag e 1 N18.1 [facility] [address] [facility] [id number] [address] [place] [address] May, Cough R05 ; Fever, unspecifi ed fever cause R50.9 ; Rheumatoid arthritis involving multiple sites with positive rheumatoid factor M05.89 and Chronic prescription opiate use Z79.899 [place] [address] [facility] [id number] [address] [place] [phone] Apr, [facility] [address] [facility] [id number] [address] [place] [address] Apr, Cough R05 [place] [address] [place] [id number] [place] [address] Apr, Asthma exacerbation J45.901 [place] [address] [place] [id number] [address] [place] [address] Apr, [place] [address] [place] [id number] [address] [place] [address] Apr, Generalized anxiety disorder F41.1 and Severe episode of recurrent major depressive disorder, without psychotic features F33.2 [place] [address] [place] [id number] [address] [place] [phone] Mar, [place] [address] [place] [id number] [address] [place] [address] Feb, Chronic pain syndrome G89.4 [place] [address] [place] [id number] [address] [place] [address] Feb, Acute non-recurrent maxillar y sinusitis J01.00 [place] [address] [facility] [id number] [address] [place] [phone] Feb, Acute non-recurrent frontal sinusitis J01.10 [place] [address] [place] [id number] [address] [place] [address] Feb, Chronic pain syndrome G89.4 [place] [address] [place] [id number] [address] [place] [address] January, Acute cystitis with hematuri a N30.01 [place] [address] [facility] [id number] [address] [place] [address] January, Acute cystitis with hematuri a N30.01 ; Dysuria R30.0 and Moderate persistent asthma with acute exacerbation J45.41 [place] [address] [facility] [id number] [address] [place] [address] January, [place] [address] [place] [id number] [place] [address] January, Chronic pain syndrome G89.4 [place] [address] [address] January, Asthma exacerbation J45.901 [place] [address] [place] [id number] [address] [place] [address] January, Asthma exacerbation J45.901 [place] [address] [address] Dec, Cough R05 ; Numbness in both hands R20.0 ; Ground glass opacity present on imaging of lung R91.8 ; Hypoxia R09.02 and Asthma exacerbation J45.901 [place] [address] [place] [id number] [address] [place] [address] Dec, Chronic pain syndrome G89.4 [place] [address] [place] [id number] [place] [address] Nov, Chronic prescription opiate use Z79.899 ; Rheumatoid arthritis involving multiple sites with positive rheumatoid factor M05.89 ; Moderate persistent asthma with acute exacerbation J45.41 ; Pneumonia of right lower lobe due to infectious organism J18.1 ; Chronic pain syndrome G89.4 ; Gastroesophageal reflux disease, esophagitis presence not specified K21.9 and Hyperlipidemia, unspecified hyperlipidemia E78.5 [place] [address] [place] [id number] [address] [place] [address] Nov, Rheumatoid arthritis involvi ng multiple sites with positive rheumatoid factor M05.89 [facility] [address] [facility] [id number] [address] [place] [address] Oct, [facility] [address] [facility] [id number] [address] [place] [address] Oct, Essential hypertension I10 [facility] [address] [facility] [id number] [address] [place] [address] Sep, Hypoxia R09.02 and Ground gl ass opacity present on imaging of lung R91.8 [facility] [address] [facility] [id number] [address] [place] [address] Sep, Moderate persistent asthma w ith acute exacerbation J45.41 [facility] [address] [place] [id number] [place] [id number] Sep, [facility] [address] [facility] [id number] [address] [place] [address] Sep, Chronic constipation K59.00 and Moderate persistent asthma with acute exacerbation J45.41 [facility] [address] [facility] [id number] [address] [place] [address] Sep, Moderate persistent asthma w ith acute exacerbation J45.41 [facility] [address] [facility] [id number] [address] [place] [address] Aug, [facility] [address] [facility] [id number] [address] [place] [phone] Aug, [facility] [address] [facility] [id number] [address] [place] [phone] Aug, [facility] [address] [facility] [id number] [address] [place] [address] Aug, Rheumatoid arthritis involvi ng multiple sites with positive rheumatoid factor M05.89 ; Essential hypertension I10 ; Hyperlipidemia, unspecified hyperlipidemia E78.5 ; Chronic constipation K59.00 and Moderate persistent asthma with acute exacerbation J45.41 [facility] [address] [facility] [id number] [address] [place] [phone] Aug, Bronchitis J40 [facility] [address] [facility] [id number] [address] [place] [phone] Aug, Rheumatoid arthritis involvi ng multiple sites with positive rheumatoid factor M05.89 [facility] [address] [facility] [id number] [address] [place] [address] Aug, Pharyngitis, unspecified pablito ology J02.9 and Acute nasopharyngitis J00 [facility] [address] [facility] [id number] [address] [place] [phone] Aug, [facility] [address] [place] [id number] [address] [place] [address] Jul, [facility] [address] [place] [id number] [address] [place] [address] Jul, Rheumatoid arthritis involvi ng multiple sites with positive rheumatoid factor M05.89 ; Essential hypertension I10 ; Hyperlipidemia, unspecified hyperlipidemia E78.5 ; Rash R21 ; Mild persistent asthma with acute exacerbation J45.31 ; Hematuria R31.9 ; Osteoporosis M81.0 and Gastroesophageal reflux disease, esophagitis presence not specified K21.9 [facility] [address] [facility] [id number] [address] [place] [address] Jun, [facility] [address] [place] [id number] [address] [place] [phone] Jun, Dysuria R30.0 [facility] [address] [facility] [id number] [address] [place] [address] Jun, Acute non-recurrent maxillar y sinusitis J01.00 and Dysuria R30.0 [facility] [address] [facility] [id number] [address] [place] [address] May, [facility] [address] [place] [id number] [address] [place] [address] May, [facility] [address] [facility] [id number] [address] [place] [address] Apr, Chronic prescription opiate use Z79.899 and Rheumatoid arthritis involving multiple sites with positive rheumatoid factor M05.89 [facility] [address] [facility] [id number] [address] [place] [address] Mar, [facility] [address] [facility] [id number] [address] [place] [address] Feb, Dizziness of unknown cause R 42 and Other chronic pain G89.29 [facility] [address] [facility] [id number] [address] [place] [address] Feb, [facility] [address] [facility] [id number] [address] [place] [address] Feb, Shortness of breath R06.02 [facility] [address] [facility] [id number] [address] [place] [address] January, [facility] [address] [place] [id number] [address] [place] [address] January, Rheumatoid arthritis involvi ng multiple sites with positive rheumatoid factor M05.89 ; Chronic prescription opiate use Z79.899 ; Hyperlipidemia, unspecified hyperlipidemia E78.5 ; Cough R05 ; Exposure to pneumonia Z20.828 ; Diarrhea, unspecified type R19.7 ; Weight loss R63.4 ; Lumbago with sciatica, right side M54.41 and Lumbago with sciatica, left side M54.42 [facility] [address] [place] [id number] [address] [place] [phone] Dec, [facility] [address] [facility] [id number] [address] [place] [address] Dec, Bronchitis J40 [facility] [address] [facility] [id number] [address] [place] [phone] Nov, [facility] [address] [facility] [id number] [address] [place] [phone] Nov, [facility] [address] [facility] [id number] [address] [place] [address] Nov, [facility] [address] [place] [id number] [address] [place] [address] Nov, Bloody diarrhea R19.7 ; Spickard n wall thickening K63.9 ; Shortness of breath R06.02 and Bladder wall thickening N32.89 [facility] [address] [id number] [address] [place] [id number] 15 Oct, 2015 Dental examination Z01.20 [facility] [address] [address] 15 Oct, 2015 [facility] [address] [address] 15 Oct, 2015 Toothache K08.8 [facility] [id number] [place] [id number] 11 Oct, 2015 Dental examination Z01.20 [facility] [address] [address] 02 Oct, 2015 [facility] [address] [address] Sep, [facility] [address] [address] Sep, Burning with urination R30.0 [facility] [address] [address] Sep, Hematuria R31.9 ; Rheumatoid arthritis involving multiple sites with positive rheumatoid factor M05.89 and Rheumatoid arthritis flare M06.9 [facility] [address] [address] Aug, Hyperlipidemia, unspecified hyperlipidemia E78.5 and Hematuria R31.9 [place] [address] [address] Aug, Hematuria R31.9 ; Chronic ki dney disease, stage 1 N18.1 and Hyperlipidemia, unspecified hyperlipidemia E78.5 [place] [address] [address] Aug, Rheumatoid arthritis involvi ng multiple sites with positive rheumatoid factor M05.89 ; Asthma exacerbation J45.901 ; Hematuria R31.9 ; Hyperlipidemia, unspecified hyperlipidemia E78.5 and Chronic kidney disease, stage 1 N18.1 [facility] [address] [id number] [address] [place] [id number] Aug, [facility] [address] [id number] [address] [place] [address] Jul, [facility] [address] [id number] [address] [place] [address] Jul, Lumbosacral radiculopathy M5 4.17 [facility] [address] [id number] [address] [place] [address] Jul, [facility] [address] [facility] [id number] [address] [place] [phone] Jun, Rheumatoid arthritis involvi ng multiple sites with positive rheumatoid factor M05.89 ; Hyperlipidemia, unspecified hyperlipidemia E78.5 ; Lumbosacral radiculopathy M54.17 ; Carpal tunnel syndrome, right upper limb G56.01 and Carpal tunnel syndrome, left upper limb G56.02 [facility] [address] [id number] [address] [place] [phone] Jun, [facility] [address] [id number] [address] [place] [address] May, Lumbar radicular pain 724.4 and Dysuria 788.1 [facility] [address] [id number] [address] [place] [id number] 08 May, 2015 Rheumatoid arthritis 714.0 ; Lumbar radicular pain 724.4 ; Burn 949.0 and Thoracic back pain 724.1 [facility] [address] [id number] [address] [place] [address] May, [facility] [address] [facility] [id number] [address] [place] [phone] May, [facility] [address] [id number] [address] [place] [address] Apr, [facility] [address] [id number] [address] [place] [address] Mar, Hyperlipidemia 272.4 [facility] [address] [facility] [id number] [address] [place] [address] Mar, [facility] [address] [id number] [address] [place] [id number] Mar, [facility] [address] [facility] [id number] [address] [place] [address] Mar, Diarrhea 787.91 ; Chronic ki dney disease, unspecified 585.9 ; Hyperlipidemia 272.4 and Asthma 493.90 [facility] [address] [facility] [id number] [address] [place] [id number] Mar, [facility] [address] [id number] [address] [place] [address] Mar, Gastroenteritis 558.9 [facility] [address] [facility] [id number] [address] [place] [id number] Feb, [facility] [address] [id number] [address] [place] [id number] January, [facility] [address] [id number] [address] [place] [id number] January, [facility] [address] [id number] [address] [place] [id number] Dec, [facility] [address] [id number] [address] [place] [id number] Dec, [facility] [address] [id number] [address] [place] [id number] Nov, [facility] [address] [id number] [address] [place] [phone] Nov, [facility] [address] [id number] [address] [place] [id number] Nov, [facility] [address] [id number] [address] [place] [address], [place] [id number] Nov, [facility] [address] [id number] [address] [place] [address], [place] [address] Nov, [facility] [address] [id number] [address] [place] [address], [place] [id number] Nov, [facility] [address] [id number] [address] [place] [address], [place] [id number] Oct, [facility] [address] [id number] [address] [place] [address], [place] [id number] Oct, [facility] [address] [id number] [address] [place] [address], [place] [address] Sep, [facility] [address] [id number] [address] [place] [address], [place] [address] Sep, [facility] [address] [id number] [address] [place] [address], [place] [id number] Sep, [facility] [address] [id number] [address] [place] [address], [place] [id number] Sep, [facility] [address] [id number] [address] [place] [address], [place] [address] Sep, [facility] [address] [id number] [address] [place] [address], [place] [id number] Sep, [facility] [address] [id number] [address] [place] [address], [place] [id number] Aug, [facility] [address] [id number] [address] [place] [address], [place] [id number] Aug, [facility] [address] [id number] [address] [place] [address], [place] [id number] Aug, [facility] [address] [id number] [address] [place] [address], [place] [id number] Aug, [facility] [address] [id number] [address] [place] [address], [place] [id number] Jul, [facility] [address] [id number] [address] [place] [address], [place] [address] Jul, [facility] [address] [id number] [address] [place] [address], [place] [id number] Jul, [facility] [address] [id number] [address] [place] [address], [place] [address] Jul, [facility] [address] [id number] [address] [place] [address], [place] [id number] Jul, [facility] [address] [id number] [address] [place] [address], [place] [address] Jul, [facility] [address] [id number] [address] [place] [address], [place] [address] Jul, [facility] [address] [id number] [address] [place] [address], [place] [id number] Jul, [facility] [address] [id number] [address] [place] [address], [place] [address] Jul, [facility] [address] [id number] [address] [place] [address], [place] [address] Jun, [facility] [address] [id number] [address] [place] [address], [place] [id number] Jun, [facility] [address] [id number] [address] [place] [address], [place] [address] Jun, [facility] [address] [id number] [address] [place] [address], [place] [address] May, [facility] [address] [id number] [address] [place] [address], [place] [address] May, [facility] [address] [id number] [address] [place] [address], [place] [address] 24 May, 2014 [facility] [address] [id number] [address] [place] [address], [place] [id number] 24 May, 2013 [facility] [address] [id number] [facility] [place] [address] 24 May, 2013 [facility] [address] [id number] [address] [place] [address], [place] [address] 24 May, 2013 [facility] [address] [id number] [address] [place] [address], [place] [address] 19 May, 2013 [facility] [address] [id number] [address] [place] [address], [place] [id number] 19 May, 2013 [facility] [address] [id number] [address] [place] [address], [place] [address] 11 May, 2013 [facility] [address] [id number] [address] [place] [address], [place] [address] 11 May, 2013 [facility] [address] [id number] [address] [place] [address], [place] [address] 11 May, 2013 [facility] [address] [id number] [address] [place] [address], [place] [id number] 11 May, 2013 [facility] [address] [id number] [address] [place] [address], [place] [address] 10 May, 2013 [facility] [address] [id number] [address] [place] [address], [place] [address] 09 May, 2013 [facility] [address] [id number] [address] [place] [address], [place] [address] 09 May, 2013 [facility] [address] [id number] [address] [place] [address], [place] [address] 08 May, 2013 [facility] [address] [id number] [address] [place] [address], [place] [address] Apr, [facility] [address] [id number] [address] [place] [address], [place] [address] Apr, [facility] [address] [id number] [address] [place] [address], [place] [address] Aug, [facility] [address] [id number] [address] [place] [address] Jul, IMMUNIZATIONS No Known Immunizations SOCIAL HISTORY Never Assessed REASON FOR VISIT respiratory f/u, having shortness of breath and wheezing -- keya stewart PLAN OF CARE Activity Details Follow Up 1 Week with PCP Ramón Reason : VITAL SIGNS Height 66 in 2018-06-02 Weight 155.0 lbs 2018-06-02 Temperature 97.1 degrees Fahrenheit 2018-06-02 Heart Rate 110 bpm 2018-06-02 Respiratory Rate 24 2018-06-02 Oximetry 92 % 2018-06-02 BMI 25.01 kg/m2 2018-06-02 Blood pressure systolic 118 mmHg 2018-06-02 Blood pressure diastolic 70 mmHg 2018-06-02 MEDICATIONS Medication Instructions Dosage Frequency Start Date End Date Duration S tatus Tylenol Arthritis Pain by oral route 2 times a day 2tablets 12h Active ProAir HFA 108 (90 Base) MCG/ACT Inhalation every 4 hrs 2 puffs as needed 4h Mar, Active Gabapentin 400 mg Orally Three times a day 2 capsules 8h Dec, 18 Active Leflunomide 20 MG Orally Once a day 1 tablet 24h Active Ibuprofen 200 MG Orally every 4-6 hours as needed 2 tablets Active Cyclobenzaprine HCl 10 MG TAKE ONE TABLE T BY MOUTH THREE TIMES DAILY NEEDED 90 Active Incruse Ellipta 62.5 MCG/INH Inhalation Once a day 1 puff 24h Active Benzonatate 200 mg Orally Three times a day 1 capsule as needed 8h 30 Active Guaifenesin 400 mg Orally every 4 hrs 1 tablet as needed 4h January, 30 days Active Cymbalta 60 mg Orally Once a day 1 capsule 24h Apr, 90 days Active Omeprazole 40 mg Orally Once a day 1 capsule 24h Jul, 90 days Active Singulair 10 MG Orally Once a day 1 tablet 24h Active Breo Ellipta 200-25 MCG/INH Inhalation Once a day 1 puff 24h Active Cetirizine HCl 10 mg Orally Once a day 1 tablet 24h Mar, 8 Aug, 30 day(s) Active Simvastatin 40 mg Orally Once a day 1 tablet in the evening 24h Mar, 90 days Active Bystolic 10 mg Orally 2 times a day 1 tablet 12h 90 days Active OxyContin 15 mg Orally every 12 hrs 1 tablet 12h Apr, 28 days Active Ipratropium-Albuterol 0.5-2.5 (3) mg/3ml Inhalation every 6 hrs 3 ml as needed 6h Active Flonase 50 MCG/ACT Nasally Once a day 1 spray in each nostril 24h Mar, 30 day(s) Active RESULTS No Results PROCEDURES No Known [...] History section x 2 Surgical History otolaryngologic surgery-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
--- OUTSIDE RECORDS SUMMARY | 2020-02-27 15:45 | XMS REPORT ---
Author Author Beba CORBIN [facility] Address [address] [place] [address] Care Team Providers Care Electrical Assembler Name Role Phone EMERALD EDWARD Unavailable PROBLEMS Type Condition ICD9-CM Code RSA22-SN Code Onset Dates Condition S tatus SNOMED Code Problem Osteoporosis M81.0 Active 7399461 [id number] Problem Chronic pain syndrome G89.4 Active 369384497 Problem Moderate persistent asthma with acute exacerbation J45.41 Active 428814872519856 Problem Lumbago with sciatica, right side M54.41 Active [id number] Problem Chronic constipation K59.00 Active 112163973 Problem Lumbago with sciatica, left side M54.42 Active 573306997 Problem Chronic kidney disease, stage 1 N18.1 Active 232276678 Problem Severe episode of recurrent major depressive disorder, without psychotic features F33.2 Active 82332346 Problem Asthma exacerbation J45.901 Active 428218110 Problem Moderate persistent asthma without complication J4 5.40 Active 533859512 Problem Generalized anxiety disorder F41.1 A ctive 95782925 Problem Pernicious anemia D51.0 Active 84 825924 Problem Hyperlipidemia, unspecified hyperlipidemia E78.5 Active 60435856 Problem Essential hypertension I10 Active 38995135 Problem Vitamin D deficiency E55.9 Active 46132121 Problem Chronic prescription opiate use Z79.899 Active 305413827 Problem Colon wall thickening K63.9 Active 081691635 Problem Rheumatoid arthritis involvi ng multiple sites with positive rheumatoid factor M05.89 Active 944507749 Problem Bladder wall thickening N32.89 Active 248687187 Problem Atrophy of left kidney N26.1 Active 273701446 Problem Gastroesophageal reflux disease, esophagitis pre sence not specified K21.9 Active [id number] ALLERGIES No Information ENCOUNTERS Encounter Location Date Diagnosis [facility] [address] [facility] [id number] [address] [place] [address] Jun, [facility] [address] [id number] [address] [place] [address] Jun, Chronic pain syndrome G89.4 [facility] [address] [id number] [address] [place] [phone] 21 May, 2018 Chronic pain syndrome G89.4 [facility] [address] [id number] [address] [place] [phone] 14 May, 2018 [facility] [address] [id number] [address] [place] [address] May, [facility] [address] [id number] [address] [place] [address] May, Moderate persistent asthma w [facility] acute exacerbation J45.41 [facility] [address] [facility] [id number] [address] [place] [phone] May, Moderate persistent asthma w ith acute exacerbation J45.41 and Hypoxia R09.02 [facility] [address] [id number] [address] [place] [address] Apr, Chronic pain syndrome G89.4 [facility] [address] [facility] [id number] [address] [place] [address] Mar, High ankle sprain of right l ower extremity, subsequent encounter S93.431D ; Lumbago with sciatica, left side M54.42 and Lumbago with sciatica, right side M54.41 [facility] [address] [id number] [address] [place] [address] Mar, [facility] [address] [id number] [address] [place] [address] Mar, Chronic pain syndrome G89.4 [facility] [address] [facility] [id number] [address] [place] [phone] Mar, [facility] [address] [facility] [id number] [address] [place] [address] Mar, Asthma exacerbation J45.901 and Sprain of right ankle, unspecified ligament, subsequent encounter S93.401D [facility] [address] [id number] [address] [place] [id number] 30 Feb, 2018 Injury of right ankle, initi al encounter S99.911A [facility] [address] [id number] [address] [place] [address] Feb, Chronic pain syndrome G89.4 [facility] [address] [id number] [address] [place] [address] Feb, Chronic pain syndrome G89.4 [facility] [address] [id number] [address] [place] [address] Feb, Moderate persistent asthma w ith acute exacerbation J45.41 and Persistent cough for 3 weeks or longer R05 [facility] [address] [facility] [id number] [address] [place] [phone] January, [facility] [address] [id number] [address] [place] [address] January, Moderate persistent asthma w ith acute exacerbation J45.41 [place] [address] [id number] [address] [place] [address] January, Chronic pain syndrome G89.4 [facility] [address] [facility] [id number] [address] [place] [address] January, Tachycardia R00.0 and Modera te persistent asthma with acute exacerbation J45.41 [facility] [address] [id number] [address] [place] [phone] January, Tachycardia R00.0 ; Moderate persistent asthma with acute exacerbation J45.41 ; Gastroesophageal reflux disease, esophagitis presence not specified K21.9 ; Hyperlipidemia, unspecified hyperlipidemia E78.5 and Chronic pain syndrome G89.4 [facility] [address] [facility] [id number] [address] [place] [address] Dec, Medicare annual wellness vis it, initial [...] immunization Z23 and Chronic pain syndrome G89.4 [place] [address] [address] Dec, Chronic pain syndrome G89.4 [facility] [address] [place] [id number] [address] [place] [address] Dec, [place] [address] [address] Nov, [place] [address] [place] [id number] [place] [address] Nov, Chronic pain syndrome G89.4 [place] [address] [address] Oct, Chronic pain syndrome G89.4 [place] [address] [address] Oct, Chronic kidney disease, stag e 1 N18.1 [place] [address] [place] [id number] [place] [address] 07 Oct, 2017 Chronic prescription opiate use Z79.899 ; Cough R05 ; Asthma exacerbation J45.901 ; Elevated liver enzymes R74.8 ; Rheumatoid arthritis involving multiple sites with positive rheumatoid factor M05.89 and Chronic pain syndrome G89.4 [facility] [address] [place] [id number] [address] [place] [address] Sep, Chronic pain syndrome G89.4 [facility] [address] [place] [id number] [address] [place] [address] Sep, [place] [address] [place] [id number] [place] [address] Aug, Acute bronchitis, unspecifie d organism J20.9 [facility] [address] [place] [id number] [address] [place] [phone] Aug, Chronic pain syndrome G89.4 [facility] [address] [place] [id number] [address] [place] [address] Jul, Chronic pain syndrome G89.4 [facility] [address] [address] Jun, Chronic pain syndrome G89.4 [facility] [address] [place] [id number] [place] [address] May, Rheumatoid arthritis involvi ng multiple sites with positive rheumatoid factor M05.89 [place] [address] [address] May, Gastroesophageal reflux dise ase, esophagitis presence not specified K21.9 and Chronic pain syndrome G89.4 [place] [address] [address] May, [place] [address] [address] 12 May, 2017 Esophageal candidiasis B37.8 1 and Chronic kidney disease, stage 1 N18.1 [place] [address] [address] 11 May, 2017 Chronic kidney disease, stag e 1 N18.1 [place] [address] [address] 05 May, 2017 Cough R05 ; Fever, unspecifi ed fever cause R50.9 ; Rheumatoid arthritis involving multiple sites with positive rheumatoid factor M05.89 and Chronic prescription opiate use Z79.899 [place] [address] [place] [id number] [address] [place] [address] Apr, [place] [address] [place] [id number] [address] [place] [address] Apr, Cough R05 [place] [address] [facility] [id number] [address] [place] [address] Apr, Asthma exacerbation J45.901 [facility] [address] [place] [id number] [address] [place] [address] Apr, [facility] [address] [facility] [id number] [address] [place] [address] Apr, Generalized anxiety disorder F41.1 and Severe episode of recurrent major depressive disorder, without psychotic features F33.2 [facility] [address] [place] [id number] [address] [place] [address] Mar, [place] [address] [place] [id number] [place] [address] Feb, Chronic pain syndrome G89.4 [place] [address] [address] Feb, Acute non-recurrent maxillar y sinusitis J01.00 [facility] [address] [place] [id number] [address] [place] [address] Feb, Acute non-recurrent frontal sinusitis J01.10 [place] [address] [place] [id number] [place] [address] Feb, Chronic pain syndrome G89.4 [place] [address] [place] [id number] [address] [place] [address] January, Acute cystitis with hematuri a N30.01 [facility] [address] [place] [id number] [address] [place] [address] January, Acute cystitis with hematuri a N30.01 ; Dysuria R30.0 and Moderate persistent asthma with acute exacerbation J45.41 [place] [address] [place] [id number] [address] [place] [address] January, [place] [address] [place] [id number] [address] [place] [address] January, Chronic pain syndrome G89.4 [facility] [id number] [place] [address] January, Asthma exacerbation J45.901 [place] [address] [address] January, Asthma exacerbation J45.901 [place] [address] [address] Dec, Cough R05 ; Numbness in both hands R20.0 ; Ground glass opacity present on imaging of lung R91.8 ; Hypoxia R09.02 and Asthma exacerbation J45.901 [place] [address] [address] Dec, Chronic pain syndrome G89.4 [place] [address] [address] Nov, Chronic prescription opiate use Z79.899 ; Rheumatoid arthritis involving multiple sites with positive rheumatoid factor M05.89 ; Moderate persistent asthma with acute exacerbation J45.41 ; Pneumonia of right lower lobe due to infectious organism J18.1 ; Chronic pain syndrome G89.4 ; Gastroesophageal reflux disease, esophagitis presence not specified K21.9 and Hyperlipidemia, unspecified hyperlipidemia E78.5 [place] [address] [address] Nov, Rheumatoid arthritis involvi ng multiple sites with positive rheumatoid factor M05.89 [place] [address] [place] [id number] [address] [place] [address] Oct, [place] [address] [place] [id number] [address] [place] [address] Oct, Essential hypertension I10 [place] [address] [place] [id number] [place] [address] Sep, Hypoxia R09.02 and Ground gl ass opacity present on imaging of lung R91.8 [place] [address] [address] 09 Salvador, 2017 Moderate persistent asthma w ith acute exacerbation J45.41 [facility] [place] [id number] [place] [id number] Sep, [facility] [address] [facility] [id number] [address] [place] [address] Sep, Chronic constipation K59.00 and Moderate persistent asthma with acute exacerbation J45.41 [facility] [address] [facility] [id number] [address] [place] [address] Sep, Moderate persistent asthma w ith acute exacerbation J45.41 [facility] [address] [id number] [address] [place] [address] Aug, [facility] [address] [facility] [id number] [address] [place] [address] Aug, [facility] [address] [facility] [id number] [address] [place] [address] Aug, [facility] [address] [facility] [id number] [address] [place] [address] Aug, Rheumatoid arthritis involvi ng multiple sites with positive rheumatoid factor M05.89 ; Essential hypertension I10 ; Hyperlipidemia, unspecified hyperlipidemia E78.5 ; Chronic constipation K59.00 and Moderate persistent asthma with acute exacerbation J45.41 [facility] [address] [facility] [id number] [address] [place] [address] Aug, Bronchitis J40 [facility] [address] [facility] [id number] [address] [place] [address] Aug, Rheumatoid arthritis involvi ng multiple sites with positive rheumatoid factor M05.89 [facility] [address] [id number] [address] [place] [address] Aug, Pharyngitis, unspecified pablito ology J02.9 and Acute nasopharyngitis J00 [facility] [address] [facility] [id number] [address] [place] [address] Aug, [facility] [address] [facility] [id number] [address] [place] [address] Jul, [facility] [address] [facility] [id number] [address] [place] [address] Jul, Rheumatoid arthritis involvi ng multiple sites with positive rheumatoid factor M05.89 ; Essential hypertension I10 ; Hyperlipidemia, unspecified hyperlipidemia E78.5 ; Rash R21 ; Mild persistent asthma with acute exacerbation J45.31 ; Hematuria R31.9 ; Osteoporosis M81.0 and Gastroesophageal reflux disease, esophagitis presence not specified K21.9 [facility] [address] [facility] [id number] [address] [place] [address] Jun, [facility] [address] [facility] [id number] [address] [place] [address] Jun, Dysuria R30.0 [facility] [address] [facility] [id number] [address] [place] [address] Jun, Acute non-recurrent maxillar y sinusitis J01.00 and Dysuria R30.0 [facility] [address] [place] [id number] [address] [place] [address] May, [facility] [address] [facility] [id number] [address] [place] [address] May, [facility] [address] [place] [id number] [address] [place] [address] Apr, Chronic prescription opiate use Z79.899 and Rheumatoid arthritis involving multiple sites with positive rheumatoid factor M05.89 [facility] [address] [place] [id number] [address] [place] [address] Mar, [facility] [address] [place] [id number] [address] [place] [address] Feb, Dizziness of unknown cause R 42 and Other chronic pain G89.29 [facility] [address] [place] [id number] [address] [place] [address] Feb, [facility] [address] [place] [id number] [address] [place] [address] Feb, Shortness of breath R06.02 [facility] [address] [facility] [id number] [address] [place] [address] January, [facility] [address] [facility] [id number] [address] [place] [address] January, Rheumatoid arthritis involvi ng multiple sites with positive rheumatoid factor M05.89 ; Chronic prescription opiate use Z79.899 ; Hyperlipidemia, unspecified hyperlipidemia E78.5 ; Cough R05 ; Exposure to pneumonia Z20.828 ; Diarrhea, unspecified type R19.7 ; Weight loss R63.4 ; Lumbago with sciatica, right side M54.41 and Lumbago with sciatica, left side M54.42 [facility] [address] [facility] [id number] [address] Dec, [facility] [address] [place] [id number] [address] [place] [address] Dec, Bronchitis J40 [facility] [address] [place] [id number] [address] [place] [address] Nov, [facility] [address] [facility] [id number] [address] [place] [address] Nov, [facility] [address] [facility] [id number] [address] [place] [address] Nov, [facility] [address] [place] [id number] [address] [place] [address] Nov, Bloody diarrhea R19.7 ; [place] n wall thickening K63.9 ; Shortness of breath R06.02 and Bladder wall thickening N32.89 [facility] [address] [id number] [address] [place] [address] [id number] Oct, Dental examination Z01.20 [facility] [address] [facility] [id number] [address] [place] [address] Oct, [facility] [address] [facility] [id number] [address] [place] [address] Oct, Toothache K08.8 [facility] [address] [id number] [address] [place] [address] [id number] 11 Oct, 2015 Dental examination Z01.20 [facility] [address] [facility] [id number] [address] [place] [address] 02 Oct, 2015 [facility] [address] [facility] [id number] [address] [place] [address] 18 Sep, 2015 [facility] [address] [facility] [id number] [address] [place] [address] 13 Sep, 2015 Burning with urination R30.0 [facility] [address] [facility] [id number] [address] [place] [address] Sep, Hematuria R31.9 ; Rheumatoid arthritis involving multiple sites with positive rheumatoid factor M05.89 and Rheumatoid arthritis flare M06.9 [place] [address] [facility] [id number] [address] [place] [address] Aug, Hyperlipidemia, unspecified hyperlipidemia E78.5 and Hematuria R31.9 [facility] [address] [facility] [id number] [address] [place] [address] Aug, Hematuria R31.9 ; Chronic ki dney disease, stage 1 N18.1 and Hyperlipidemia, unspecified hyperlipidemia E78.5 [facility] [address] [facility] [id number] [address] [place] [address] Aug, Rheumatoid arthritis involvi ng multiple sites with positive rheumatoid factor M05.89 ; Asthma exacerbation J45.901 ; Hematuria R31.9 ; Hyperlipidemia, unspecified hyperlipidemia E78.5 and Chronic kidney disease, stage 1 N18.1 [facility] [address] [facility] [id number] [address] [place] [address] Aug, [facility] [address] [facility] [id number] [address] [place] [address] Jul, [facility] [address] [facility] [id number] [address] [place] [address] Jul, Lumbosacral radiculopathy M5 4.17 [facility] [address] [id number] [address] [place] [address] Jul, [facility] [address] [facility] [id number] [address] [place] [address] Jun, Rheumatoid arthritis involvi ng multiple sites with positive rheumatoid factor M05.89 ; Hyperlipidemia, unspecified hyperlipidemia E78.5 ; Lumbosacral radiculopathy M54.17 ; Carpal tunnel syndrome, right upper limb G56.01 and Carpal tunnel syndrome, left upper limb G56.02 [facility] [address] [id number] [address] [place] [address] Jun, [facility] [address] [id number] [address] [place] [address] May, Lumbar radicular pain 724.4 and Dysuria 788.1 [facility] [address] [facility] [id number] [address] [place] [address] May, Rheumatoid arthritis 714.0 ; Lumbar radicular pain 724.4 ; Burn 949.0 and Thoracic back pain 724.1 [facility] [address] [facility] [id number] [address] [place] [id number] May, [facility] [address] [id number] [address] [place] [address] May, [facility] [address] [facility] [id number] [address] [place] [address] Apr, [facility] [address] [id number] [address] [place] [address] Mar, Hyperlipidemia 272.4 [facility] [address] [facility] [id number] [address] [place] [phone] Mar, [facility] [address] [facility] [id number] [address] [place] [phone] Mar, [facility] [address] [facility] [id number] [address] [place] [id number] Mar, Diarrhea 787.91 ; Chronic ki dney disease, unspecified 585.9 ; Hyperlipidemia 272.4 and Asthma 493.90 [facility] [address] [id number] [address] [place] [id number] Mar, [facility] [address] [id number] [address] [place] [id number] Mar, Gastroenteritis 558.9 [facility] [address] [id number] [address] [place] [phone] Feb, [facility] [address] [id number] [address] [place] [phone] January, [facility] [address] [id number] [address] [place] [id number] January, [facility] [address] [id number] [address] [place] [phone] Dec, [facility] [address] [id number] [address] [place] [id number] Dec, [facility] [address] [id number] [address] [place] [phone] Nov, [facility] [address] [id number] [address] [place] [phone] Nov, [facility] [address] [id number] [address] [place] [phone] Nov, [facility] [address] [id number] [address] [place] [id number] Nov, [facility] [address] [id number] [address] [place] [id number] Nov, [facility] [address] [id number] [address] [place] [phone] Nov, [facility] [address] [id number] [address] [place] [phone] Oct, [facility] [address] [id number] [address] [place] [phone] Oct, [facility] [address] [id number] [address] [place] [address], [place] [id number] Sep, [facility] [address] [id number] [address] [place] [address], [place] [id number] Sep, [facility] [address] [id number] [address] [place] [address], [place] [address] Sep, [facility] [address] [id number] [address] [place] [address], [place] [id number] Sep, [facility] [address] [id number] [address] [place] [address], [place] [address] Sep, [facility] [address] [id number] [address] [place] [address], [place] [address] Sep, [facility] [address] [id number] [address] [place] [address], [place] [address] Aug, [facility] [address] [id number] [address] [place] [address], [place] [address] Aug, [facility] [address] [id number] [address] [place] [address], [place] [address] Aug, [facility] [address] [id number] [address] [place] [address], [place] [address] Aug, [facility] [address] [id number] [address] [place] [address], [place] [address] Jul, [facility] [address] [id number] [address] [place] [address], [place] [id number] Jul, [facility] [address] [id number] [address] [place] [address], [place] [address] Jul, [facility] [address] [id number] [address] [place] [address], [place] [address] Jul, [facility] [address] [id number] [address] [place] [address], [place] [address] Jul, [facility] [address] [id number] [address] [place] [address], [place] [id number] 07 Jul, 2014 [facility] [address] [id number] [address] [place] [address], [place] [address] Jul, [facility] [address] [id number] [address] [place] [address], [place] [address] Jul, [facility] [address] [id number] [address] [place] [address], [place] [address] Jul, [facility] [address] [id number] [address] [place] [address], [place] [address] Jun, [facility] [address] [id number] [address] [place] [address], [place] [address] Jun, [facility] [address] [id number] [address] [place] [address], [place] [address] Jun, [facility] [address] [id number] [address] [place] [address], [place] [address] 25 May, 2013 [facility] [address] [id number] [address] [place] [address], [place] [address] 25 Sep, 2013 [facility] [address] [id number] [address] [place] [address], [place] [address] 24 May, 2013 [facility] [address] [id number] [address] [place] [address], [place] [address] 24 Sep, 2013 [facility] [address] [id number] [address] [place] [address], [place] [address] 24 Sep, 2013 [facility] [address] [id number] [address] [place] [address], [place] [address] 24 Sep, 2013 [facility] [address] [id number] [address] [place] [address], [place] [address] 19 Sep, 2013 [facility] [address] [id number] [address] [place] [address], [place] [address] 19 Sep, 2013 [facility] [address] [id number] [address] [place], [place] [address] [address] May, [facility] [address] [id number] [address] [place] [id number] May, [facility] [address] [id number] [address] [place] [id number] May, [facility] [address] [id number] [address] [place] [id number] May, [facility] [address] [id number] [address] [place] [id number] May, [facility] [address] [id number] [address] [place] [id number] May, [facility] [address] [id number] [address] [place] [id number] May, [facility] [address] [id number] [address] [place] [id number] May, [facility] [address] [id number] [address] [place] [id number] Apr, [facility] [address] [id number] [address] [place] [id number] Apr, [facility] [address] [id number] [address] [place] [id number] Aug, [facility] [address] [id number] [address] [place] [id number] Jul, IMMUNIZATIONS No Known Immunizations SOCIAL HISTORY Never Assessed REASON FOR VISIT Refill request PLAN OF CARE VITAL SIGNS MEDICATIONS Unknown [...]
--- OUTSIDE RECORDS SUMMARY | 2020-02-27 15:45 | XMS REPORT ---
Author Author Beba CORBIN 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 Name Role Phone EMERALD EDWARD Unavailable PROBLEMS Type Condition ICD9-CM Code ZCT66-RK Code Onset Dates Condition S tatus SNOMED Code Problem Osteoporosis M81.0 Active 6098631 6 Problem Chronic pain syndrome G89.4 Active 149423068 Problem Moderate persistent asthma with acute exacerbation J45.41 Active 969956726194460 Problem Lumbago with sciatica, right side M54.41 Active 623128657015574 Problem Chronic constipation K59.00 Active 266212842 Problem Lumbago with sciatica, left side M54.42 Active 829347424 Problem Chronic kidney disease, stage 1 N18.1 Active 419541053 Problem Severe episode of recurrent major depressive disorder, without psychotic features F33.2 Active 13736726 Problem Asthma exacerbation J45.901 Active 035072270 Problem Moderate persistent asthma without complication J4 5.40 Active 334441347 Problem Generalized anxiety disorder F41.1 A ctive 75146538 Problem Pernicious anemia D51.0 Active 84 571450 Problem Hyperlipidemia, unspecified hyperlipidemia E78.5 Active 49544668 Problem Essential hypertension I10 Active 52578919 Problem Vitamin D deficiency E55.9 Active 29592618 Problem Chronic prescription opiate use Z79.899 Active 438826163 Problem Colon wall thickening K63.9 Active 015672788 Problem Rheumatoid arthritis involvi ng multiple sites with positive rheumatoid factor M05.89 Active 736374292 Problem Bladder wall thickening N32.89 Active 662591655 Problem Atrophy of left kidney N26.1 Active 938632890 Problem Gastroesophageal reflux disease, esophagitis pre sence not specified K21.9 Active 383402059 ALLERGIES No Information ENCOUNTERS Encounter Location Date Diagnosis [facility] [address] [facility] [id number] [address] [place] [address] May, Chronic pain syndrome G89.4 [facility] [address] [id number] [address] [place] [id number] 14 May, 2018 [facility] [address] [id number] [address] [place] [id number] 13 May, 2018 [facility] [address] [id number] [address] [place] [address] May, Moderate persistent asthma w ith acute exacerbation J45.41 [facility] [address] [id number] [address] [place] [address] May, Moderate persistent asthma w ith acute exacerbation J45.41 and Hypoxia R09.02 [facility] [address] [id number] [address] [place] [address] Apr, Chronic pain syndrome G89.4 [facility] [address] [id number] [address] [place] [address] Mar, High ankle sprain of right l ower extremity, subsequent encounter S93.431D ; Lumbago with sciatica, left side M54.42 and Lumbago with sciatica, right side M54.41 [facility] [address] [id number] [address] [place] [id number] Mar, [facility] [address] [id number] [address] [place] [address] Mar, Chronic pain syndrome G89.4 [facility] [address] [id number] [address] [place] [id number] Mar, [facility] [address] [id number] [address] [place] [address] Mar, Asthma exacerbation J45.901 and Sprain of right ankle, unspecified ligament, subsequent encounter S93.401D [facility] [address] [id number] [address] [place] [address] Feb, Injury of right ankle, initi al encounter S99.911A [facility] [id number] [place] [address] 22 Feb, 2018 Chronic pain syndrome G89.4 [place] [address] [address] 15 Feb, 2018 Chronic pain syndrome G89.4 [place] [address] [address] 15 Feb, 2018 Moderate persistent asthma w ith acute exacerbation J45.41 and Persistent cough for 3 weeks or longer R05 [place] [address] [address] January, [address] [address] 24 Jan, 2018 Moderate persistent asthma w ith acute exacerbation J45.[address] [address] January, Chronic pain syndrome G89.4 [place] [address] [address] 14 Jan, 2018 Tachycardia R00.0 and Modera te persistent asthma with acute exacerbation J45.[address] [address] 11 Jan, 2018 Tachycardia R00.0 ; Moderate persistent asthma with acute exacerbation J45.41 ; Gastroesophageal reflux disease, esophagitis presence not specified K21.9 ; Hyperlipidemia, unspecified hyperlipidemia E78.5 and Chronic pain syndrome G89.4 [place] [address] [place] [id number] [address] [place] [address] Dec, Medicare annual wellness vis it, initial [...] immunization Z23 and Chronic pain syndrome G89.4 [facility] [address] [facility] [id number] [address] [place] [address] Dec, Chronic pain syndrome G89.4 [facility] [address] [facility] [id number] [address] [place] [address] Dec, [facility] [address] [facility] [id number] [address] [place] [address] Nov, [facility] [address] [facility] [id number] [address] [place] [address] Nov, Chronic pain syndrome G89.4 [facility] [address] [facility] [id number] [address] [place] [address] Oct, Chronic pain syndrome G89.4 [place] [address] [facility] [id number] [address] [place] [id number] 08 Oct, 2017 Chronic kidney disease, stag e 1 N18.1 [facility] [address] [facility] [id number] [address] [place] [address] 07 Oct, 2017 Chronic prescription opiate use Z79.899 ; Cough R05 ; Asthma exacerbation J45.901 ; Elevated liver enzymes R74.8 ; Rheumatoid arthritis involving multiple sites with positive rheumatoid factor M05.89 and Chronic pain syndrome G89.4 [facility] [address] [facility] [id number] [address] [place] [id number] Sep, Chronic pain syndrome G89.4 [facility] [address] [facility] [id number] [address] [place] [address] Sep, [facility] [address] [facility] [id number] [address] [place] [phone] Aug, Acute bronchitis, unspecifie d organism J20.9 [facility] [address] [facility] [id number] [address] [place] [address] Aug, Chronic pain syndrome G89.4 [facility] [address] [facility] [id number] [address] [place] [address] Jul, Chronic pain syndrome G89.4 [facility] [address] [facility] [id number] [address] [place] [address] Jun, Chronic pain syndrome G89.4 [facility] [address] [place] [id number] [address] [place] [id number] 29 May, 2017 Rheumatoid arthritis involvi ng multiple sites with positive rheumatoid factor M05.89 [facility] [address] [address] May, Gastroesophageal reflux dise ase, esophagitis presence not specified K21.9 and Chronic pain syndrome G89.4 [facility] [address] [address] May, [place] [address] [address] May, Esophageal candidiasis B37.8 1 and Chronic kidney disease, stage 1 N18.1 [facility] [address] [address] May, Chronic kidney disease, stag e 1 N18.1 [place] [address] [address] 05 May, 2017 Cough R05 ; Fever, unspecifi ed fever cause R50.9 ; Rheumatoid arthritis involving multiple sites with positive rheumatoid factor M05.89 and Chronic prescription opiate use Z79.899 [place] [address] [address] Apr, [facility] [address] [address] Apr, Cough R05 [place] [address] [address] Apr, Asthma exacerbation J45.901 [place] [address] [address] Apr, [facility] [address] [facility] [id number] [address] [place] [address] Apr, Generalized anxiety disorder F41.1 and Severe episode of recurrent major depressive disorder, without psychotic features F33.2 [facility] [address] [facility] [id number] [address] [place] [address] Mar, [facility] [address] [facility] [id number] [address] [place] [address] Feb, Chronic pain syndrome G89.4 [facility] [address] [facility] [id number] [address] [place] [address] Feb, Acute non-recurrent maxillar y sinusitis J01.00 [place] [address] [facility] [id number] [address] [place] [address] Feb, Acute non-recurrent frontal sinusitis J01.10 [place] [address] [facility] [id number] [address] [place] [address] Feb, Chronic pain syndrome G89.4 [place] [address] [facility] [id number] [address] [place] [address] January, Acute cystitis with hematuri a N30.01 [place] [address] [facility] [id number] [address] [place] [address] January, Acute cystitis with hematuri a N30.01 ; Dysuria R30.0 and Moderate persistent asthma with acute exacerbation J45.41 [place] [address] [facility] [id number] [address] [place] [address] January, [place] [address] [facility] [id number] [address] [place] [address] January, Chronic pain syndrome G89.4 [place] [address] [facility] [id number] [address] [place] [address] January, Asthma exacerbation J45.901 [place] [address] [place] [id number] [address] [place] [address] January, Asthma exacerbation J45.901 [place] [address] [place] [id number] [address] [place] [address] Dec, Cough R05 ; Numbness in both hands R20.0 ; Ground glass opacity present on imaging of lung R91.8 ; Hypoxia R09.02 and Asthma exacerbation J45.901 [place] [address] [place] [id number] [address] [place] [address] Dec, Chronic pain syndrome G89.4 [place] [address] [place] [id number] [address] [place] [address] Nov, Chronic prescription opiate use Z79.899 ; Rheumatoid arthritis involving multiple sites with positive rheumatoid factor M05.89 ; Moderate persistent asthma with acute exacerbation J45.41 ; Pneumonia of right lower lobe due to infectious organism J18.1 ; Chronic pain syndrome G89.4 ; Gastroesophageal reflux disease, esophagitis presence not specified K21.9 and Hyperlipidemia, unspecified hyperlipidemia E78.5 [place] [address] [place] [id number] [address] [place] [address] Nov, Rheumatoid arthritis involvi ng multiple sites with positive rheumatoid factor M05.89 [place] [address] [place] [id number] [address] [place] [address] Oct, [place] [address] [place] [id number] [address] [place] [address] Oct, Essential hypertension I10 [place] [address] [place] [id number] [address] [place] [address] Sep, Hypoxia R09.02 and Ground gl ass opacity present on imaging of lung R91.8 [place] [address] [place] [id number] [address] [place] [address] Sep, Moderate persistent asthma w ith acute exacerbation J45.41 [facility] [address] [place] [id number] [place] [id number] Sep, [place] [address] [place] [id number] [address] [place] [phone] Sep, Chronic constipation K59.00 and Moderate persistent asthma with acute exacerbation J45.41 [facility] [address] [id number] [address] [place] [id number] Sep, Moderate persistent asthma w ith acute exacerbation J45.41 [facility] [address] [id number] [address] [place] [address] Aug, [facility] [address] [id number] [address] [place] [address] Aug, [facility] [address] [id number] [address] [place] [address] Aug, [facility] [address] [id number] [address] [place] [address] Aug, Rheumatoid arthritis involvi ng multiple sites with positive rheumatoid factor M05.89 ; Essential hypertension I10 ; Hyperlipidemia, unspecified hyperlipidemia E78.5 ; Chronic constipation K59.00 and Moderate persistent asthma with acute exacerbation J45.41 [facility] [address] [id number] [address] [place] [address] Aug, Bronchitis J40 [facility] [address] [id number] [address] [place] [address] Aug, Rheumatoid arthritis involvi ng multiple sites with positive rheumatoid factor M05.89 [facility] [address] [id number] [address] [place] [address] Aug, Pharyngitis, unspecified pablito ology J02.9 and Acute nasopharyngitis J00 [facility] [address] [id number] [address] [place] [address] Aug, [facility] [address] [id number] [address] [place] [address] Jul, [facility] [address] [id number] [address] [place] [address] Jul, Rheumatoid arthritis involvi ng multiple sites with positive rheumatoid factor M05.89 ; Essential hypertension I10 ; Hyperlipidemia, unspecified hyperlipidemia E78.5 ; Rash R21 ; Mild persistent asthma with acute exacerbation J45.31 ; Hematuria R31.9 ; Osteoporosis M81.0 and Gastroesophageal reflux disease, esophagitis presence not specified K21.9 [facility] [address] [facility] [id number] [address] [place] [address] 18 Jun, 2016 [facility] [address] [place] [id number] [address] [place] [id number] 10 Jun, 2016 Dysuria R30.0 [facility] [address] [facility] [id number] [address] [place] [address] 05 Jun, 2016 Acute non-recurrent maxillar y sinusitis J01.00 and Dysuria R30.0 [facility] [address] [place] [id number] [address] [place] [id number] 16 May, 2016 [facility] [address] [address] May, [facility] [address] [address] Apr, Chronic prescription opiate use Z79.899 and Rheumatoid arthritis involving multiple sites with positive rheumatoid factor M05.89 [facility] [address] [address] Mar, [facility] [address] [place] [id number] [place] [address] Feb, Dizziness of unknown cause R 42 and Other chronic pain G89.29 [facility] [address] [place] [id number] [address] [place] [address] Feb, [facility] [address] [facility] [id number] [address] [place] [address] Feb, Shortness of breath R06.02 [facility] [address] [place] [id number] [address] [place] [address] January, [facility] [address] [place] [id number] [address] [place] [address] 25 May, 2016 Rheumatoid arthritis involvi ng multiple sites with positive rheumatoid factor M05.89 ; Chronic prescription opiate use Z79.899 ; Hyperlipidemia, unspecified hyperlipidemia E78.5 ; Cough R05 ; Exposure to pneumonia Z20.828 ; Diarrhea, unspecified type R19.7 ; Weight loss R63.4 ; Lumbago with sciatica, right side M54.41 and Lumbago with sciatica, left side M54.42 [facility] [address] [address] Dec, [facility] [address] [place] [id number] [place] [address] Dec, Bronchitis J40 [facility] [address] [address] Nov, [facility] [address] [address] Nov, [facility] [address] [address] Nov, [facility] [address] [address] Nov, Bloody diarrhea R19.7 ; [place] n wall thickening K63.9 ; Shortness of breath R06.02 and Bladder wall thickening N32.89 [facility] [id number] [place] [id number] Oct, Dental examination Z01.20 [facility] [address] [place] [id number] [address] [place] [address] Oct, [facility] [address] [place] [id number] [place] [address] Oct, Toothache K08.8 [facility] [address] [id number] Oct, Dental examination Z01.20 [facility] [address] [place] [id number] [place] [address] Oct, [facility] [address] [id number] [address] [place] [address] Sep, [facility] [address] [id number] [address] [place] [address] Sep, Burning with urination R30.0 [facility] [address] [id number] [address] [place] [address] Sep, Hematuria R31.9 ; Rheumatoid arthritis involving multiple sites with positive rheumatoid factor M05.89 and Rheumatoid arthritis flare M06.9 [place] [address] [id number] [address] [place] [address] Aug, Hyperlipidemia, unspecified hyperlipidemia E78.5 and Hematuria R31.9 [facility] [address] [id number] [address] [place] [address] Aug, Hematuria R31.9 ; Chronic ki dney disease, stage 1 N18.1 and Hyperlipidemia, unspecified hyperlipidemia E78.5 [place] [address] [id number] [address] [place] [address] Aug, Rheumatoid arthritis involvi ng multiple sites with positive rheumatoid factor M05.89 ; Asthma exacerbation J45.901 ; Hematuria R31.9 ; Hyperlipidemia, unspecified hyperlipidemia E78.5 and Chronic kidney disease, stage 1 N18.1 [place] [address] [facility] [id number] [address] [place] [address] Aug, [place] [address] [id number] [address] [place] [id number] Jul, [place] [address] [id number] [address] [place] [address] Jul, Lumbosacral radiculopathy M5 4.17 [facility] [address] [id number] [address] [place] [id number] Jul, [facility] [address] [facility] [id number] [address] [place] [address] Jun, Rheumatoid arthritis involvi ng multiple sites with positive rheumatoid factor M05.89 ; Hyperlipidemia, unspecified hyperlipidemia E78.5 ; Lumbosacral radiculopathy M54.17 ; Carpal tunnel syndrome, right upper limb G56.01 and Carpal tunnel syndrome, left upper limb G56.02 [facility] [address] [id number] [address] [place] [address] Jun, [facility] [address] [id number] [address] [place] [address] May, Lumbar radicular pain 724.4 and Dysuria 788.1 [facility] [address] [id number] [address] [place] [address] May, Rheumatoid arthritis 714.0 ; Lumbar radicular pain 724.4 ; Burn 949.0 and Thoracic back pain 724.1 [facility] [address] [facility] [id number] [address] [place] [address] May, [facility] [address] [id number] [address] [place] [address] May, [facility] [address] [id number] [address] [place] [address] Apr, [facility] [address] [facility] [id number] [address] [place] [address] Mar, Hyperlipidemia 272.4 [facility] [address] [facility] [id number] [address] [place] [address] Mar, [facility] [address] [facility] [id number] [address] [place] [address] Mar, [facility] [address] [facility] [id number] [address] [place] [address] Mar, Diarrhea 787.91 ; Chronic ki dney disease, unspecified 585.9 ; Hyperlipidemia 272.4 and Asthma 493.90 [facility] [address] [facility] [id number] [address] [place] [address] Mar, [facility] [address] [id number] [address] [place] [address], [place] [address] Mar, Gastroenteritis 558.9 [facility] [address] [id number] [address] [place] [address], [place] [address] Feb, [facility] [address] [id number] [address] [place] [address], [place] [address] January, [facility] [address] [id number] [address] [place] [address], [place] [address] January, [facility] [address] [id number] [address] [place] [address], [place] [address] Dec, [facility] [address] [id number] [address] [place] [address], [place] [address] Dec, [facility] [address] [id number] [address] [place] [address], [place] [address] Nov, [facility] [address] [id number] [address] [place] [address], [place] [address] Nov, [facility] [address] [id number] [address] [place] [address], [place] [address] Nov, [facility] [address] [id number] [address] [place] [address], [place] [address] Nov, [facility] [address] [id number] [address] [place] [address], [place] [address] Nov, [facility] [address] [id number] [address] [place] [address], [place] [address] Nov, [facility] [address] [id number] [address] [place] [address], [place] [address] Oct, [facility] [address] [id number] [address] [place] [address], [place] [address] Oct, [facility] [address] [id number] [address] [place] [id number] Sep, [facility] [address] [id number] [address] [place] [address] Sep, [facility] [address] [id number] [address] [place] [address], [place] [address] Sep, [facility] [address] [id number] [address] [place] [address], [place] [address] Sep, [facility] [address] [id number] [address] [place] [address], [place] [address] Sep, [facility] [address] [id number] [address] [place] [address], [place] [address] Sep, [facility] [address] [id number] [address] [place] [address], [place] [address] Aug, [facility] [address] [id number] [address] [place] [address], [place] [address] Aug, [facility] [address] [id number] [address] [place] [address], [place] [address] Aug, [facility] [address] [id number] [address] [place] [address], [place] [address] Aug, [facility] [address] [id number] [address] [place] [address], [place] [address] Jul, [facility] [address] [id number] [address] [place] [address], [place] [address] Jul, [facility] [address] [id number] [address] [place] [address], [place] [address] Jul, [facility] [address] [id number] [address] [place] [address], [place] [address] Jul, [facility] [address] [id number] [address] [place] [address], [place] [address] Jul, [facility] [address] [id number] [address] [place] [address], [place] [address] Jul, [facility] [address] [id number] [address] [place] [address], [place] [address] Jul, [facility] [address] [id number] [address] [place] [address], [place] [address] 05 Jul, 2014 [facility] [address] [id number] [address] [place] [address], [place] [address] 05 Jul, 2014 [facility] [address] [id number] [address] [place] [address], [place] [address] 31 Jun, 2014 [facility] [address] [id number] [address] [place] [address], [place] [address] 15 Jun, 2014 [facility] [address] [id number] [address] [place] [address], [place] [address] 15 Jun, 2014 [facility] [address] [id number] [address] [place] [address], [place] [address] 25 May, 2014 [facility] [address] [id number] [address] [place] [address], [place] [address] 25 May, 2013 [facility] [address] [id number] [address] [place] [address], [place] [address] 24 May, 2013 [facility] [address] [id number] [address] [place] [address], [place] [address] 24 Sep, 2013 [facility] [address] [id number] [address] [place] [address], [place] [address] 24 May, 2013 [facility] [address] [id number] [address] [place] [address], [place] [address] 24 Sep, 2013 [facility] [address] [id number] [address] [place] [address], [place] [address] 19 May, 2013 [facility] [address] [id number] [address] [place] [address], [place] [address] 19 Sep, 2013 [facility] [address] [id number] [address] [place] [address], [place] [address] 11 May, 2013 [facility] [address] [id number] [address] [place] [address], [place] [address] 11 May, 2013 [facility] [address] [id number] [address] [place] [address], [place] [address] May, [facility] [address] [id number] [address] [place] [address] May, [facility] [address] [id number] [address] [place] [id number] May, [facility] [address] [id number] [address] [place] [address] May, [facility] [address] [id number] [address] [place] [id number] May, [facility] [address] [id number] [address] [place] [address] May, [facility] [address] [id number] [address] [place] [address] Apr, [facility] [address] [id number] [address] [place] [address] Apr, [facility] [address] [id number] [address] [place] [id number] Aug, [facility] [address] [id number] [address] [place] [address] Jul, IMMUNIZATIONS No Known Immunizations SOCIAL HISTORY Never Assessed REASON FOR VISIT Requests return call PLAN OF CARE VITAL SIGNS MEDICATIONS Unknown Medications RESULTS No Results PROCEDURES No Known procedures INSTRUCTIONS MEDICATIONS ADMINISTERED No Known Medications MEDICAL (GENERAL) HISTORY Type Description Date Medical History hypertension Medical History osteoporosis Medical History rheumatoid arthritis Medical History Heart infection Medical History Rheumatic or Scarlet Fever Medical History Pneumonia Medical History Bronchitis Medical History Prednisone Surgical History hysterectomy 2002 Surgical History arthroscopic knee surgery-left knee Surgical History section x 2 Surgical History 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
--- OUTSIDE RECORDS SUMMARY | 2020-02-27 15:45 | XMS REPORT ---
Author Author Beba CORBIN [facility] Address [address] [place] [address] Care Team Providers Care Tufter Operator Name Role Phone EMERALD EDWARD Unavailable PROBLEMS Type Condition ICD9-CM Code TKK85-EG Code Onset Dates Condition S tatus SNOMED Code Problem Osteoporosis M81.0 Active 6066504 6 Problem Chronic pain syndrome G89.4 Active 223191963 Problem Moderate persistent asthma with acute exacerbation J45.41 Active 060064322433583 Problem Lumbago with sciatica, right side M54.41 Active 058439577609299 Problem Chronic constipation K59.00 Active 356339423 Problem Lumbago with sciatica, left side M54.42 Active 529581424 Problem Chronic kidney disease, stage 1 N18.1 Active 810195992 Problem Severe episode of recurrent major depressive disorder, without psychotic features F33.2 Active 88982915 Problem Asthma exacerbation J45.901 Active 264439350 Problem Moderate persistent asthma without complication J4 5.40 Active 617686855 Problem Generalized anxiety disorder F41.1 A ctive 92152187 Problem Pernicious anemia D51.0 Active 84 884396 Problem Hyperlipidemia, unspecified hyperlipidemia E78.5 Active 03926132 Problem Essential hypertension I10 Active 47634529 Problem Vitamin D deficiency E55.9 Active 23137968 Problem Chronic prescription opiate use Z79.899 Active 586024056 Problem Colon wall thickening K63.9 Active 964146320 Problem Rheumatoid arthritis involvi ng multiple sites with positive rheumatoid factor M05.89 Active 252875633 Problem Bladder wall thickening N32.89 Active 803826720 Problem Atrophy of left kidney N26.1 Active 518197428 Problem Gastroesophageal reflux disease, esophagitis pre sence not specified K21.9 Active 594226095 ALLERGIES No Information ENCOUNTERS Encounter Location Date Diagnosis [facility] [address] [facility] [id number] [address] [place] [address] Jun, [facility] [address] [id number] [address] [place] [id number] Jun, Chronic pain syndrome G89.4 [facility] [address] [id number] [address] [place] [id number] 21 May, 2018 Chronic pain syndrome G89.4 [facility] [address] [id number] [address] [place] [id number] 14 May, 2018 [facility] [address] [id number] [address] [place] [id number] May, [facility] [address] [id number] [address] [place] [id number] May, Moderate persistent asthma w [facility] acute exacerbation J45.41 [facility] [address] [facility] [id number] [address] [place] [id number] May, Moderate persistent asthma w ith acute exacerbation J45.41 and Hypoxia R09.02 [facility] [address] [id number] [address] [place] [phone] Apr, Chronic pain syndrome G89.4 [facility] [address] [facility] [id number] [address] [place] [id number] Mar, High ankle sprain of right l ower extremity, subsequent encounter S93.431D ; Lumbago with sciatica, left side M54.42 and Lumbago with sciatica, right side M54.41 [facility] [address] [id number] [address] [place] [id number] Mar, [facility] [address] [id number] [address] [place] [id number] Mar, Chronic pain syndrome G89.4 [facility] [address] [facility] [id number] [address] [place] [id number] Mar, [facility] [address] [facility] [id number] [address] [place] [id number] Mar, Asthma exacerbation J45.901 and Sprain of right ankle, unspecified ligament, subsequent encounter S93.401D [facility] [address] [id number] [address] [place] [id number] 30 Feb, 2018 Injury of right ankle, initi al encounter S99.911A [facility] [address] [id number] [address] [place] [id number] Feb, Chronic pain syndrome G89.4 [facility] [address] [id number] [address] [place] [id number] Feb, Chronic pain syndrome G89.4 [facility] [address] [id number] [address] [place] [id number] Feb, Moderate persistent asthma w ith acute exacerbation J45.41 and Persistent cough for 3 weeks or longer R05 [facility] [address] [facility] [id number] [address] [place] [id number] January, [facility] [address] [id number] [address] [place] [id number] January, Moderate persistent asthma w ith acute exacerbation J45.41 [facility] [address] [id number] [address] [place] [id number] January, Chronic pain syndrome G89.4 [facility] [address] [facility] [id number] [address] [place] [id number] January, Tachycardia R00.0 and Modera te persistent asthma with acute exacerbation J45.41 [facility] [address] [id number] [address] [place] [id number] January, Tachycardia R00.0 ; Moderate persistent asthma with acute exacerbation J45.41 ; Gastroesophageal reflux disease, esophagitis presence not specified K21.9 ; Hyperlipidemia, unspecified hyperlipidemia E78.5 and Chronic pain syndrome G89.4 [facility] [address] [facility] [id number] [address] [place] [id number] Dec, Medicare annual wellness vis it, initial [...] immunization Z23 and Chronic pain syndrome G89.4 [place] [id number] [address] Dec, Chronic pain syndrome G89.4 [facility] [address] [place] [id number] [address] [place] [id number] Dec, [place] [address] [phone] Nov, [place] [address] [place] [id number] [place] [phone] Nov, Chronic pain syndrome G89.4 [place] [address] [address] Oct, Chronic pain syndrome G89.4 [place] [address] [address] Oct, Chronic kidney disease, stag e 1 N18.1 [place] [address] [place] [id number] [place] [address] 07 Oct, 2017 Chronic prescription opiate use Z79.899 ; Cough R05 ; Asthma exacerbation J45.901 ; Elevated liver enzymes R74.8 ; Rheumatoid arthritis involving multiple sites with positive rheumatoid factor M05.89 and Chronic pain syndrome G89.4 [facility] [address] [place] [id number] [address] [place] [id number] Sep, Chronic pain syndrome G89.4 [facility] [address] [place] [id number] [address] [place] [id number] Sep, [place] [address] [place] [id number] [place] [address] Aug, Acute bronchitis, unspecifie d organism J20.9 [facility] [address] [place] [id number] [address] [place] [id number] Aug, Chronic pain syndrome G89.4 [facility] [address] [place] [id number] [address] [place] [id number] Jul, Chronic pain syndrome G89.4 [facility] [address] [address] Jun, Chronic pain syndrome G89.4 [facility] [address] [place] [id number] [place] [address] May, Rheumatoid arthritis involvi ng multiple sites with positive rheumatoid factor M05.89 [place] [address] [address] May, Gastroesophageal reflux dise ase, esophagitis presence not specified K21.9 and Chronic pain syndrome G89.4 [place] [address] [address] May, [place] [address] [address] 12 May, 2017 Esophageal candidiasis B37.8 1 and Chronic kidney disease, stage 1 N18.1 [place] [address] [address] 11 May, 2017 Chronic kidney disease, stag e 1 N18.1 [place] [address] [address] 05 May, 2017 Cough R05 ; Fever, unspecifi ed fever cause R50.9 ; Rheumatoid arthritis involving multiple sites with positive rheumatoid factor M05.89 and Chronic prescription opiate use Z79.899 [place] [address] [place] [id number] [address] [place] [id number] Apr, [place] [address] [place] [id number] [address] [place] [id number] Apr, Cough R05 [place] [address] [facility] [id number] [address] [place] [id number] Apr, Asthma exacerbation J45.901 [facility] [address] [place] [id number] [address] [place] [phone] Apr, [facility] [address] [facility] [id number] [address] [place] [id number] Apr, Generalized anxiety disorder F41.1 and Severe episode of recurrent major depressive disorder, without psychotic features F33.2 [facility] [address] [place] [id number] [address] [place] [id number] Mar, [place] [address] [place] [id number] [place] [address] Feb, Chronic pain syndrome G89.4 [place] [address] [address] Feb, Acute non-recurrent maxillar y sinusitis J01.00 [facility] [address] [place] [id number] [address] [place] [id number] Feb, Acute non-recurrent frontal sinusitis J01.10 [place] [address] [place] [id number] [place] [address] Feb, Chronic pain syndrome G89.4 [place] [address] [place] [id number] [address] [place] [id number] January, Acute cystitis with hematuri a N30.01 [facility] [address] [place] [id number] [address] [place] [id number] January, Acute cystitis with hematuri a N30.01 ; Dysuria R30.0 and Moderate persistent asthma with acute exacerbation J45.41 [place] [address] [place] [id number] [address] [place] [id number] January, [place] [address] [place] [id number] [address] [place] [id number] January, Chronic pain syndrome G89.4 [facility] [id number] [place] [id number] January, Asthma exacerbation J45.901 [place] [address] [address] January, Asthma exacerbation J45.901 [place] [address] [address] Dec, Cough R05 ; Numbness in both hands R20.0 ; Ground glass opacity present on imaging of lung R91.8 ; Hypoxia R09.02 and Asthma exacerbation J45.901 [place] [address] [address] Dec, Chronic pain syndrome G89.4 [place] [address] [address] Nov, Chronic prescription opiate use Z79.899 ; Rheumatoid arthritis involving multiple sites with positive rheumatoid factor M05.89 ; Moderate persistent asthma with acute exacerbation J45.41 ; Pneumonia of right lower lobe due to infectious organism J18.1 ; Chronic pain syndrome G89.4 ; Gastroesophageal reflux disease, esophagitis presence not specified K21.9 and Hyperlipidemia, unspecified hyperlipidemia E78.5 [place] [address] [address] Nov, Rheumatoid arthritis involvi ng multiple sites with positive rheumatoid factor M05.89 [place] [address] [place] [id number] [address] [place] [id number] Oct, [place] [address] [place] [id number] [address] [place] [phone] Oct, Essential hypertension I10 [place] [address] [place] [id number] [place] [phone] Sep, Hypoxia R09.02 and Ground gl ass opacity present on imaging of lung R91.8 [place] [address] [address] 09 Salvador, 2017 Moderate persistent asthma w ith acute exacerbation J45.41 [facility] [id number] [place] [id number] Sep, [facility] [address] [facility] [id number] [address] [place] [id number] Sep, Chronic constipation K59.00 and Moderate persistent asthma with acute exacerbation J45.41 [facility] [address] [facility] [id number] [address] [place] [id number] Sep, Moderate persistent asthma w ith acute exacerbation J45.41 [facility] [address] [id number] [address] [place] [id number] Aug, [facility] [address] [facility] [id number] [address] [place] [id number] Aug, [facility] [address] [facility] [id number] [address] [place] [phone] Aug, [facility] [address] [facility] [id number] [address] [place] [id number] Aug, Rheumatoid arthritis involvi ng multiple sites with positive rheumatoid factor M05.89 ; Essential hypertension I10 ; Hyperlipidemia, unspecified hyperlipidemia E78.5 ; Chronic constipation K59.00 and Moderate persistent asthma with acute exacerbation J45.41 [facility] [address] [facility] [id number] [address] [place] [id number] Aug, Bronchitis J40 [facility] [address] [facility] [id number] [address] [place] [id number] Aug, Rheumatoid arthritis involvi ng multiple sites with positive rheumatoid factor M05.89 [facility] [address] [id number] [address] [place] [phone] Aug, Pharyngitis, unspecified pablito ology J02.9 and Acute nasopharyngitis J00 [facility] [address] [facility] [id number] [address] [place] [phone] Aug, [facility] [address] [facility] [id number] [address] [place] [id number] Jul, [facility] [address] [facility] [id number] [address] [place] [id number] Jul, Rheumatoid arthritis involvi ng multiple sites with positive rheumatoid factor M05.89 ; Essential hypertension I10 ; Hyperlipidemia, unspecified hyperlipidemia E78.5 ; Rash R21 ; Mild persistent asthma with acute exacerbation J45.31 ; Hematuria R31.9 ; Osteoporosis M81.0 and Gastroesophageal reflux disease, esophagitis presence not specified K21.9 [facility] [address] [facility] [id number] [address] [place] [id number] Jun, [facility] [address] [facility] [id number] [address] [place] [phone] Jun, Dysuria R30.0 [facility] [address] [facility] [id number] [address] [place] [id number] Jun, Acute non-recurrent maxillar y sinusitis J01.00 and Dysuria R30.0 [facility] [address] [place] [id number] [address] [place] [phone] May, [facility] [address] [facility] [id number] [address] [place] [id number] May, [facility] [address] [place] [id number] [address] [place] [id number] Apr, Chronic prescription opiate use Z79.899 and Rheumatoid arthritis involving multiple sites with positive rheumatoid factor M05.89 [facility] [address] [place] [id number] [address] [place] [id number] Mar, [facility] [address] [place] [id number] [address] [place] [id number] Feb, Dizziness of unknown cause R 42 and Other chronic pain G89.29 [facility] [address] [place] [id number] [address] [place] [id number] Feb, [facility] [address] [place] [id number] [address] [place] [id number] Feb, Shortness of breath R06.02 [facility] [address] [facility] [id number] [address] [place] [id number] January, [facility] [address] [facility] [id number] [address] [place] [id number] January, Rheumatoid arthritis involvi ng multiple sites with positive rheumatoid factor M05.89 ; Chronic prescription opiate use Z79.899 ; Hyperlipidemia, unspecified hyperlipidemia E78.5 ; Cough R05 ; Exposure to pneumonia Z20.828 ; Diarrhea, unspecified type R19.7 ; Weight loss R63.4 ; Lumbago with sciatica, right side M54.41 and Lumbago with sciatica, left side M54.42 [facility] [address] [facility] [id number] [address] Dec, [facility] [address] [place] [id number] [address] [place] [phone] Dec, Bronchitis J40 [facility] [address] [place] [id number] [address] [place] [id number] Nov, [facility] [address] [facility] [id number] [address] [place] [id number] Nov, [facility] [address] [facility] [id number] [address] [place] [phone] Nov, [facility] [address] [place] [id number] [address] [place] [id number] Nov, Bloody diarrhea R19.7 ; Hubbard n wall thickening K63.9 ; Shortness of breath R06.02 and Bladder wall thickening N32.89 [facility] [address] [id number] [address] [place] [address] [id number] Oct, Dental examination Z01.20 [facility] [address] [facility] [id number] [address] [place] [phone] Oct, [facility] [address] [facility] [id number] [address] [place] [phone] Oct, Toothache K08.8 [facility] [address] [id number] [address] [place] [id number] 11 Oct, 2015 Dental examination Z01.20 [facility] [address] [facility] [id number] [address] [place] [phone] 02 Oct, 2015 [facility] [address] [facility] [id number] [address] [place] [id number] 18 Sep, 2015 [facility] [address] [facility] [id number] [address] [place] [id number] 13 Sep, 2015 Burning with urination R30.0 [facility] [address] [facility] [id number] [address] [place] [id number] Sep, Hematuria R31.9 ; Rheumatoid arthritis involving multiple sites with positive rheumatoid factor M05.89 and Rheumatoid arthritis flare M06.9 [place] [address] [facility] [id number] [address] [place] [id number] Aug, Hyperlipidemia, unspecified hyperlipidemia E78.5 and Hematuria R31.9 [facility] [address] [facility] [id number] [address] [place] [id number] Aug, Hematuria R31.9 ; Chronic ki dney disease, stage 1 N18.1 and Hyperlipidemia, unspecified hyperlipidemia E78.5 [facility] [address] [facility] [id number] [address] [place] [id number] Aug, Rheumatoid arthritis involvi ng multiple sites with positive rheumatoid factor M05.89 ; Asthma exacerbation J45.901 ; Hematuria R31.9 ; Hyperlipidemia, unspecified hyperlipidemia E78.5 and Chronic kidney disease, stage 1 N18.1 [facility] [address] [facility] [id number] [address] [place] [id number] Aug, [facility] [address] [facility] [id number] [address] [place] [id number] Jul, [facility] [address] [facility] [id number] [address] [place] [id number] Jul, Lumbosacral radiculopathy M5 4.17 [facility] [address] [id number] [address] [place] [id number] Jul, [facility] [address] [facility] [id number] [address] [place] [phone] Jun, Rheumatoid arthritis involvi ng multiple sites with positive rheumatoid factor M05.89 ; Hyperlipidemia, unspecified hyperlipidemia E78.5 ; Lumbosacral radiculopathy M54.17 ; Carpal tunnel syndrome, right upper limb G56.01 and Carpal tunnel syndrome, left upper limb G56.02 [facility] [address] [id number] [address] [place] [id number] Jun, [facility] [address] [id number] [address] [place] [id number] May, Lumbar radicular pain 724.4 and Dysuria 788.1 [facility] [address] [facility] [id number] [address] [place] [id number] May, Rheumatoid arthritis 714.0 ; Lumbar radicular pain 724.4 ; Burn 949.0 and Thoracic back pain 724.1 [facility] [address] [facility] [id number] [address] [place] [phone] May, [facility] [address] [id number] [address] [place] [phone] May, [facility] [address] [facility] [id number] [address] [place] [phone] Apr, [facility] [address] [id number] [address] [place] [phone] Mar, Hyperlipidemia 272.4 [facility] [address] [facility] [id number] [address] [place] [phone] Mar, [facility] [address] [facility] [id number] [address] [place] [id number] Mar, [facility] [address] [facility] [id number] [address] [place] [id number] Mar, Diarrhea 787.91 ; Chronic ki dney disease, unspecified 585.9 ; Hyperlipidemia 272.4 and Asthma 493.90 [facility] [address] [id number] [address] [place] [id number] Mar, [facility] [address] [id number] [address] [place] [id number] Mar, Gastroenteritis 558.9 [facility] [address] [id number] [address] [place] [id number] Feb, [facility] [address] [id number] [address] [place] [phone] January, [facility] [address] [id number] [address] [place] [phone] January, [facility] [address] [id number] [address] [place] [id number] Dec, [facility] [address] [id number] [address] [place] [phone] Dec, [facility] [address] [id number] [address] [place] [phone] Nov, [facility] [address] [id number] [address] [place] [phone] Nov, [facility] [address] [id number] [address] [place] [phone] Nov, [facility] [address] [id number] [address] [place] [phone] Nov, [facility] [address] [id number] [address] [place] [phone] Nov, [facility] [address] [id number] [address] [place] [phone] Nov, [facility] [address] [id number] [address] [place] [phone] Oct, [facility] [address] [id number] [address] [place] [address] [id number] Oct, [facility] [address] [id number] [address] [place] [address], [place] [address] Sep, [facility] [address] [id number] [address] [place] [address], [place] [address] Sep, [facility] [address] [id number] [address] [place] [address], [place] [address] Sep, [facility] [address] [id number] [address] [place] [address], [place] [address] Sep, [facility] [address] [id number] [address] [place] [address], [place] [address] Sep, [facility] [address] [id number] [address] [place] [address], [place] [address] Sep, [facility] [address] [id number] [address] [place] [address], [place] [address] Aug, [facility] [address] [id number] [address] [place] [address], [place] [address] Aug, [facility] [address] [id number] [address] [place] [address], [place] [address] Aug, [facility] [address] [id number] [address] [place] [address], [place] [address] Aug, [facility] [address] [id number] [address] [place] [address], [place] [address] Jul, [facility] [address] [id number] [address] [place] [address], [place] [address] Jul, [facility] [address] [id number] [address] [place] [address], [place] [address] Jul, [facility] [address] [id number] [address] [place] [address], [place] [address] Jul, [facility] [address] [id number] [address] [place] [address], [place] [address] Jul, [facility] [address] [id number] [address] [place] [address], [place] [id number] 07 Jul, 2014 [facility] [address] [id number] [address] [place] [address], [place] [address] Jul, [facility] [address] [id number] [address] [place] [address], [place] [address] Jul, [facility] [address] [id number] [address] [place] [address], [place] [address] Jul, [facility] [address] [id number] [address] [place] [address], [place] [address] Jun, [facility] [address] [id number] [address] [place] [address], [place] [address] Jun, [facility] [address] [id number] [address] [place] [address], [place] [address] Jun, [facility] [address] [id number] [address] [place] [address], [place] [address] 25 May, 2013 [facility] [address] [id number] [address] [place] [address], [place] [address] 25 Sep, 2013 [facility] [address] [id number] [address] [place] [address], [place] [address] 24 May, 2013 [facility] [address] [id number] [address] [place] [address], [place] [address] 24 Sep, 2013 [facility] [address] [id number] [address] [place] [address], [place] [address] 24 Sep, 2013 [facility] [address] [id number] [address] [place] [address], [place] [address] 24 Sep, 2013 [facility] [address] [id number] [address] [place] [address], [place] [address] 19 Sep, 2013 [facility] [address] [id number] [address] [place] [address], [place] [address] 19 Sep, 2013 [facility] [address] [id number] [address] [place] [address] [address] May, [facility] [address] [id number] [address] [place] [id number] May, [facility] [address] [id number] [address] [place] [phone] May, [facility] [address] [id number] [address] [place] [id number] May, [facility] [address] [id number] [address] [place] [id number] May, [facility] [address] [id number] [address] [place] [id number] May, [facility] [address] [id number] [address] [place] [id number] May, [facility] [address] [id number] [address] [place] [id number] May, [facility] [address] [id number] [address] [place] [phone] Apr, [facility] [address] [id number] [address] [place] [id number] Apr, [facility] [address] [id number] [address] [place] [id number] Aug, [facility] [address] [id number] [address] [place] [phone] Jul, IMMUNIZATIONS No Known Immunizations SOCIAL HISTORY Never Assessed REASON FOR VISIT Controlled Medication Refill PLAN OF CARE VITAL SIGNS MEDICATIONS Medication Instructions Dosage Frequency Start Date End Date Duration S tatus OxyContin 15 mg Orally every 12 hrs 1 tablet 12h 24 Jun, 2018 28 days Active RESULTS No Results PROCEDURES [...]
--- OUTSIDE RECORDS SUMMARY | 2020-02-27 15:45 | XMS REPORT ---
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 Name Role Phone EMERALD EDWARD Unavailable PROBLEMS Type Condition ICD9-CM Code XSD79-PE Code Onset Dates Condition S tatus SNOMED Code Problem Osteoporosis M81.0 Active 4564576 [id number] Problem Chronic pain syndrome G89.4 Active 929345510 Problem Moderate persistent asthma with acute exacerbation J45.41 Active 746362005662269 Problem Lumbago with sciatica, right side M54.41 Active 064616853662618 Problem Chronic constipation K59.00 Active 821217702 Problem Lumbago with sciatica, left side M54.42 Active 067413336 Problem Chronic kidney disease, stage 1 N18.1 Active 629632829 Problem Severe episode of recurrent major depressive disorder, without psychotic features F33.2 Active 50147093 Problem Asthma exacerbation J45.901 Active 061111751 Problem Moderate persistent asthma without complication J4 5.40 Active 670075861 Problem Generalized anxiety disorder F41.1 A ctive 50699093 Problem Pernicious anemia D51.0 Active 84 522888 Problem Hyperlipidemia, unspecified hyperlipidemia E78.5 Active 19963652 Problem Essential hypertension I10 Active 74239481 Problem Vitamin D deficiency E55.9 Active 17083882 Problem Chronic prescription opiate use Z79.899 Active 375378174 Problem Colon wall thickening K63.9 Active 902228036 Problem Rheumatoid arthritis involvi ng multiple sites with positive rheumatoid factor M05.89 Active 020535243 Problem Bladder wall thickening N32.89 Active 649011553 Problem Atrophy of left kidney N26.1 Active 798160467 Problem Gastroesophageal reflux disease, esophagitis pre sence not specified K21.9 Active [id number] ALLERGIES No Information ENCOUNTERS Encounter Location Date Diagnosis [facility] [address] [facility] [id number] [address] [place] [address] May, Chronic pain syndrome G89.4 [facility] [address] [id number] [address] [place] [address] 14 May, 2018 [facility] [address] [id number] [address] [place] [address] 13 May, 2018 [facility] [address] [id number] [address] [place] [address] May, Moderate persistent asthma w ith acute exacerbation J45.41 [facility] [address] [id number] [address] [place] [address] May, Moderate persistent asthma w ith acute exacerbation J45.41 and Hypoxia R09.02 [facility] [address] [id number] [address] [place] [address] Apr, Chronic pain syndrome G89.4 [facility] [address] [id number] [address] [place] [address] Mar, High ankle sprain of right l ower extremity, subsequent encounter S93.431D ; Lumbago with sciatica, left side M54.42 and Lumbago with sciatica, right side M54.41 [facility] [address] [id number] [address] [place] [address] Mar, [facility] [address] [id number] [address] [place] [address] Mar, Chronic pain syndrome G89.4 [facility] [address] [id number] [address] [place] [address] Mar, [facility] [address] [id number] [address] [place] [address] Mar, Asthma exacerbation J45.901 and Sprain of right ankle, unspecified ligament, subsequent encounter S93.401D [facility] [address] [id number] [address] [place] [address] Feb, Injury of right ankle, initi al encounter S99.911A [facility] [address] [place] [address] 22 Feb, 2018 Chronic pain syndrome G89.4 [place] [address] [address] 15 Feb, 2018 Chronic pain syndrome G89.4 [place] [address] [address] 15 Feb, 2018 Moderate persistent asthma w ith acute exacerbation J45.41 and Persistent cough for 3 weeks or longer R05 [place] [address] [address] January, [address] [address] 24 Jan, 2018 Moderate persistent asthma w ith acute exacerbation J45.[address] [address] January, Chronic pain syndrome G89.4 [place] [address] [address] 14 Jan, 2018 Tachycardia R00.0 and Modera te persistent asthma with acute exacerbation J45.[address] [address] 11 Jan, 2018 Tachycardia R00.0 ; Moderate persistent asthma with acute exacerbation J45.41 ; Gastroesophageal reflux disease, esophagitis presence not specified K21.9 ; Hyperlipidemia, unspecified hyperlipidemia E78.5 and Chronic pain syndrome G89.4 [place] [address] [place] [id number] [address] [place] [address] Dec, Medicare annual wellness vis it, initial [...] Z23 and Chronic pain syndrome G89.4 [facility] [address] [facility] [id number] [address] [place] [address] Dec, Chronic pain syndrome G89.4 [facility] [address] [facility] [id number] [address] [place] [address] Dec, [facility] [address] [facility] [id number] [address] [place] [address] Nov, [facility] [address] [facility] [id number] [address] [place] [address] Nov, Chronic pain syndrome G89.4 [facility] [address] [facility] [id number] [address] [place] [address] Oct, Chronic pain syndrome G89.4 [place] [address] [facility] [id number] [address] [place] [address] 08 Oct, 2017 Chronic kidney disease, stag e 1 N18.1 [facility] [address] [facility] [id number] [address] [place] [address] 07 Oct, 2017 Chronic prescription opiate use Z79.899 ; Cough R05 ; Asthma exacerbation J45.901 ; Elevated liver enzymes R74.8 ; Rheumatoid arthritis involving multiple sites with positive rheumatoid factor M05.89 and Chronic pain syndrome G89.4 [facility] [address] [facility] [id number] [address] [place] [address] Sep, Chronic pain syndrome G89.4 [facility] [address] [facility] [id number] [address] [place] [address] Sep, [facility] [address] [facility] [id number] [address] [place] [address] Aug, Acute bronchitis, unspecifie d organism J20.9 [facility] [address] [facility] [id number] [address] [place] [address] Aug, Chronic pain syndrome G89.4 [facility] [address] [facility] [id number] [address] [place] [address] Jul, Chronic pain syndrome G89.4 [facility] [address] [facility] [id number] [address] [place] [address] Jun, Chronic pain syndrome G89.4 [facility] [address] [place] [id number] [address] [place] [address] 29 May, 2017 Rheumatoid arthritis involvi ng multiple sites with positive rheumatoid factor M05.89 [facility] [address] [address] May, Gastroesophageal reflux dise ase, esophagitis presence not specified K21.9 and Chronic pain syndrome G89.4 [facility] [address] [address] May, [place] [address] [address] May, Esophageal candidiasis B37.8 1 and Chronic kidney disease, stage 1 N18.1 [facility] [address] [address] May, Chronic kidney disease, stag e 1 N18.1 [place] [address] [address] 05 May, 2017 Cough R05 ; Fever, unspecifi ed fever cause R50.9 ; Rheumatoid arthritis involving multiple sites with positive rheumatoid factor M05.89 and Chronic prescription opiate use Z79.899 [place] [address] [address] Apr, [facility] [address] [address] Apr, Cough R05 [place] [address] [address] Apr, Asthma exacerbation J45.901 [place] [address] [address] Apr, [facility] [address] [facility] [id number] [address] [place] [address] Apr, Generalized anxiety disorder F41.1 and Severe episode of recurrent major depressive disorder, without psychotic features F33.2 [facility] [address] [facility] [id number] [address] [place] [address] Mar, [facility] [address] [facility] [id number] [address] [place] [address] Feb, Chronic pain syndrome G89.4 [facility] [address] [facility] [id number] [address] [place] [address] Feb, Acute non-recurrent maxillar y sinusitis J01.00 [place] [address] [facility] [id number] [address] [place] [address] Feb, Acute non-recurrent frontal sinusitis J01.10 [place] [address] [facility] [id number] [address] [place] [address] Feb, Chronic pain syndrome G89.4 [place] [address] [facility] [id number] [address] [place] [address] January, Acute cystitis with hematuri a N30.01 [place] [address] [facility] [id number] [address] [place] [address] January, Acute cystitis with hematuri a N30.01 ; Dysuria R30.0 and Moderate persistent asthma with acute exacerbation J45.41 [place] [address] [facility] [id number] [address] [place] [address] January, [place] [address] [facility] [id number] [address] [place] [address] January, Chronic pain syndrome G89.4 [place] [address] [facility] [id number] [address] [place] [address] January, Asthma exacerbation J45.901 [place] [address] [place] [id number] [address] [place] [address] January, Asthma exacerbation J45.901 [place] [address] [place] [id number] [address] [place] [address] Dec, Cough R05 ; Numbness in both hands R20.0 ; Ground glass opacity present on imaging of lung R91.8 ; Hypoxia R09.02 and Asthma exacerbation J45.901 [place] [address] [place] [id number] [address] [place] [address] Dec, Chronic pain syndrome G89.4 [place] [address] [place] [id number] [address] [place] [address] Nov, Chronic prescription opiate use Z79.899 ; Rheumatoid arthritis involving multiple sites with positive rheumatoid factor M05.89 ; Moderate persistent asthma with acute exacerbation J45.41 ; Pneumonia of right lower lobe due to infectious organism J18.1 ; Chronic pain syndrome G89.4 ; Gastroesophageal reflux disease, esophagitis presence not specified K21.9 and Hyperlipidemia, unspecified hyperlipidemia E78.5 [place] [address] [place] [id number] [address] [place] [address] Nov, Rheumatoid arthritis involvi ng multiple sites with positive rheumatoid factor M05.89 [place] [address] [place] [id number] [address] [place] [address] Oct, [place] [address] [place] [id number] [address] [place] [address] Oct, Essential hypertension I10 [place] [address] [place] [id number] [address] [place] [address] Sep, Hypoxia R09.02 and Ground gl ass opacity present on imaging of lung R91.8 [place] [address] [place] [id number] [address] [place] [address] Sep, Moderate persistent asthma w ith acute exacerbation J45.41 [facility] [address] [place] [id number] [place] [id number] Sep, [place] [address] [place] [id number] [address] [place] [address] Sep, Chronic constipation K59.00 and Moderate persistent asthma with acute exacerbation J45.41 [facility] [address] [id number] [address] [place] [address] Sep, Moderate persistent asthma w ith acute exacerbation J45.41 [facility] [address] [id number] [address] [place] [address] Aug, [facility] [address] [id number] [address] [place] [address] Aug, [facility] [address] [id number] [address] [place] [address] Aug, [facility] [address] [id number] [address] [place] [address] Aug, Rheumatoid arthritis involvi ng multiple sites with positive rheumatoid factor M05.89 ; Essential hypertension I10 ; Hyperlipidemia, unspecified hyperlipidemia E78.5 ; Chronic constipation K59.00 and Moderate persistent asthma with acute exacerbation J45.41 [facility] [address] [id number] [address] [place] [address] Aug, Bronchitis J40 [facility] [address] [id number] [address] [place] [address] Aug, Rheumatoid arthritis involvi ng multiple sites with positive rheumatoid factor M05.89 [facility] [address] [id number] [address] [place] [address] Aug, Pharyngitis, unspecified pablito ology J02.9 and Acute nasopharyngitis J00 [facility] [address] [id number] [address] [place] [address] Aug, [facility] [address] [id number] [address] [place] [address] Jul, [facility] [address] [id number] [address] [place] [address] Jul, Rheumatoid arthritis involvi ng multiple sites with positive rheumatoid factor M05.89 ; Essential hypertension I10 ; Hyperlipidemia, unspecified hyperlipidemia E78.5 ; Rash R21 ; Mild persistent asthma with acute exacerbation J45.31 ; Hematuria R31.9 ; Osteoporosis M81.0 and Gastroesophageal reflux disease, esophagitis presence not specified K21.9 [facility] [address] [facility] [id number] [address] [place] [address] 18 Jun, 2016 [facility] [address] [place] [id number] [address] [place] [address] 10 Jun, 2016 Dysuria R30.0 [facility] [address] [facility] [id number] [address] [place] [address] 05 Jun, 2016 Acute non-recurrent maxillar y sinusitis J01.00 and Dysuria R30.0 [facility] [address] [place] [id number] [address] [place] [address] 16 May, 2016 [facility] [address] [address] May, [facility] [address] [address] Apr, Chronic prescription opiate use Z79.899 and Rheumatoid arthritis involving multiple sites with positive rheumatoid factor M05.89 [facility] [address] [address] Mar, [facility] [address] [place] [id number] [place] [address] Feb, Dizziness of unknown cause R 42 and Other chronic pain G89.29 [facility] [address] [place] [id number] [address] [place] [address] Feb, [facility] [address] [facility] [id number] [address] [place] [address] Feb, Shortness of breath R06.02 [facility] [address] [place] [id number] [address] [place] [address] January, [facility] [address] [place] [id number] [address] [place] [address] 25 May, 2016 Rheumatoid arthritis involvi ng multiple sites with positive rheumatoid factor M05.89 ; Chronic prescription opiate use Z79.899 ; Hyperlipidemia, unspecified hyperlipidemia E78.5 ; Cough R05 ; Exposure to pneumonia Z20.828 ; Diarrhea, unspecified type R19.7 ; Weight loss R63.4 ; Lumbago with sciatica, right side M54.41 and Lumbago with sciatica, left side M54.42 [facility] [address] [address] Dec, [facility] [address] [place] [id number] [place] [address] Dec, Bronchitis J40 [facility] [address] [address] Nov, [facility] [address] [address] Nov, [facility] [address] [address] Nov, [facility] [address] [address] Nov, Bloody diarrhea R19.7 ; [place] n wall thickening K63.9 ; Shortness of breath R06.02 and Bladder wall thickening N32.89 [facility] [id number] [place] [id number] Oct, Dental examination Z01.20 [facility] [address] [place] [id number] [address] [place] [address] Oct, [facility] [address] [place] [id number] [place] [address] Oct, Toothache K08.8 [facility] [address] [id number] Oct, Dental examination Z01.20 [facility] [address] [place] [id number] [place] [address] Oct, [facility] [address] [id number] [address] [place] [address] Sep, [facility] [address] [id number] [address] [place] [address] Sep, Burning with urination R30.0 [facility] [address] [id number] [address] [place] [address] Sep, Hematuria R31.9 ; Rheumatoid arthritis involving multiple sites with positive rheumatoid factor M05.89 and Rheumatoid arthritis flare M06.9 [place] [address] [id number] [address] [place] [address] Aug, Hyperlipidemia, unspecified hyperlipidemia E78.5 and Hematuria R31.9 [facility] [address] [id number] [address] [place] [address] Aug, Hematuria R31.9 ; Chronic ki dney disease, stage 1 N18.1 and Hyperlipidemia, unspecified hyperlipidemia E78.5 [place] [address] [id number] [address] [place] [address] Aug, Rheumatoid arthritis involvi ng multiple sites with positive rheumatoid factor M05.89 ; Asthma exacerbation J45.901 ; Hematuria R31.9 ; Hyperlipidemia, unspecified hyperlipidemia E78.5 and Chronic kidney disease, stage 1 N18.1 [place] [address] [facility] [id number] [address] [place] [address] Aug, [place] [address] [id number] [address] [place] [address] Jul, [place] [address] [id number] [address] [place] [address] Jul, Lumbosacral radiculopathy M5 4.17 [facility] [address] [id number] [address] [place] [address] Jul, [facility] [address] [facility] [id number] [address] [place] [address] Jun, Rheumatoid arthritis involvi ng multiple sites with positive rheumatoid factor M05.89 ; Hyperlipidemia, unspecified hyperlipidemia E78.5 ; Lumbosacral radiculopathy M54.17 ; Carpal tunnel syndrome, right upper limb G56.01 and Carpal tunnel syndrome, left upper limb G56.02 [facility] [address] [id number] [address] [place] [address] Jun, [facility] [address] [id number] [address] [place] [address] May, Lumbar radicular pain 724.4 and Dysuria 788.1 [facility] [address] [id number] [address] [place] [address] May, Rheumatoid arthritis 714.0 ; Lumbar radicular pain 724.4 ; Burn 949.0 and Thoracic back pain 724.1 [facility] [address] [facility] [id number] [address] [place] [address] May, [facility] [address] [id number] [address] [place] [address] May, [facility] [address] [id number] [address] [place] [address] Apr, [facility] [address] [facility] [id number] [address] [place] [address] Mar, Hyperlipidemia 272.4 [facility] [address] [facility] [id number] [address] [place] [address] Mar, [facility] [address] [facility] [id number] [address] [place] [address] Mar, [facility] [address] [facility] [id number] [address] [place] [address] Mar, Diarrhea 787.91 ; Chronic ki dney disease, unspecified 585.9 ; Hyperlipidemia 272.4 and Asthma 493.90 [facility] [address] [facility] [id number] [address] [place] [address] Mar, [facility] [address] [id number] [address] [place] [address], [place] [address] Mar, Gastroenteritis 558.9 [facility] [address] [id number] [address] [place] [address], [place] [address] Feb, [facility] [address] [id number] [address] [place] [address], [place] [address] January, [facility] [address] [id number] [address] [place] [address], [place] [address] January, [facility] [address] [id number] [address] [place] [address], [place] [address] Dec, [facility] [address] [id number] [address] [place] [address], [place] [address] Dec, [facility] [address] [id number] [address] [place] [address], [place] [address] Nov, [facility] [address] [id number] [address] [place] [address], [place] [address] Nov, [facility] [address] [id number] [address] [place] [address], [place] [address] Nov, [facility] [address] [id number] [address] [place] [address], [place] [address] Nov, [facility] [address] [id number] [address] [place] [address], [place] [address] Nov, [facility] [address] [id number] [address] [place] [address], [place] [address] Nov, [facility] [address] [id number] [address] [place] [address], [place] [address] Oct, [facility] [address] [id number] [address] [place] [address], [place] [address] Oct, [facility] [address] [id number] [address] [place] [id number] Sep, [facility] [address] [id number] [address] [place] [id number] Sep, [facility] [address] [id number] [address] [place] [address], [place] [address] Sep, [facility] [address] [id number] [address] [place] [address], [place] [address] Sep, [facility] [address] [id number] [address] [place] [address], [place] [address] Sep, [facility] [address] [id number] [address] [place] [address], [place] [address] Sep, [facility] [address] [id number] [address] [place] [address], [place] [address] Aug, [facility] [address] [id number] [address] [place] [address], [place] [address] Aug, [facility] [address] [id number] [address] [place] [address], [place] [address] Aug, [facility] [address] [id number] [address] [place] [address], [place] [address] Aug, [facility] [address] [id number] [address] [place] [address], [place] [address] Jul, [facility] [address] [id number] [address] [place] [address], [place] [address] Jul, [facility] [address] [id number] [address] [place] [address], [place] [address] Jul, [facility] [address] [id number] [address] [place] [address], [place] [address] Jul, [facility] [address] [id number] [address] [place] [address], [place] [address] Jul, [facility] [address] [id number] [address] [place] [address], [place] [address] Jul, [facility] [address] [id number] [address] [place] [address], [place] [address] Jul, [facility] [address] [id number] [address] [place] [address], [place] [address] 05 Jul, 2014 [facility] [address] [id number] [address] [place] [address], [place] [address] 05 Jul, 2014 [facility] [address] [id number] [address] [place] [address], [place] [address] 31 Jun, 2014 [facility] [address] [id number] [address] [place] [address], [place] [address] 15 Jun, 2014 [facility] [address] [id number] [address] [place] [address], [place] [address] 15 Jun, 2014 [facility] [address] [id number] [address] [place] [address], [place] [address] 25 May, 2014 [facility] [address] [id number] [address] [place] [address], [place] [address] 25 May, 2013 [facility] [address] [id number] [address] [place] [address], [place] [address] 24 May, 2013 [facility] [address] [id number] [address] [place] [address], [place] [address] 24 Sep, 2013 [facility] [address] [id number] [address] [place] [address], [place] [address] 24 May, 2013 [facility] [address] [id number] [address] [place] [address], [place] [address] 24 Sep, 2013 [facility] [address] [id number] [address] [place] [address], [place] [address] 19 May, 2013 [facility] [address] [id number] [address] [place] [address], [place] [address] 19 Sep, 2013 [facility] [address] [id number] [address] [place] [address], [place] [address] 11 May, 2013 [facility] [address] [id number] [address] [place] [address], [place] [address] 11 May, 2013 [facility] [address] [id number] [address] [place] [address], [place] [address] May, [facility] [address] [id number] [address] [place] [address] May, [facility] [address] [id number] [address] [place] [address] May, [facility] [address] [id number] [address] [place] [address] May, [facility] [address] [id number] [address] [place] [address] May, [facility] [address] [id number] [address] [place] [address] May, [facility] [address] [id number] [address] [place] [address] Apr, [facility] [address] [id number] [address] [place] [address] Apr, [facility] [address] [id number] [address] [place] [address] Aug, [facility] [address] [id number] [address] [place] [address] Jul, IMMUNIZATIONS No Known Immunizations SOCIAL HISTORY Never Assessed REASON FOR VISIT Oxygen PLAN OF CARE VITAL SIGNS MEDICATIONS Unknown [...] History section x 2 Surgical History otolaryngologic surgery-[facility] 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
--- OUTSIDE RECORDS SUMMARY | 2020-02-27 15:45 | XMS REPORT ---
Author Author Beba GUO [facility] Address [address] [place] [address] Care Team Providers Care Engineering Professor Name Role Phone TOBI GUO Unavailable PROBLEMS Type Condition ICD9-CM Code DHA66-JS Code Onset Dates Condition S tatus SNOMED Code Problem Osteoporosis M81.0 Active 9219084 [id number] Problem Chronic pain syndrome G89.4 Active 888219170 Problem Moderate persistent asthma with acute exacerbation J45.41 Active 666017752021086 Problem Lumbago with sciatica, right side M54.41 Active [id number] Problem Chronic constipation K59.00 Active 299762403 Problem Lumbago with sciatica, left side M54.42 Active 239411747 Problem Chronic kidney disease, stage 1 N18.1 Active 517245892 Problem Severe episode of recurrent major depressive disorder, without psychotic features F33.2 Active 75338976 Problem Asthma exacerbation J45.901 Active 059746197 Problem Moderate persistent asthma without complication J4 5.40 Active 391093686 Problem Generalized anxiety disorder F41.1 A ctive 00073168 Problem Pernicious anemia D51.0 Active 84 213729 Problem Hyperlipidemia, unspecified hyperlipidemia E78.5 Active 27077107 Problem Essential hypertension I10 Active 57690976 Problem Vitamin D deficiency E55.9 Active 76484180 Problem Chronic prescription opiate use Z79.899 Active 223178985 Problem Colon wall thickening K63.9 Active 775405688 Problem Rheumatoid arthritis involvi ng multiple sites with positive rheumatoid factor M05.89 Active 820414031 Problem Bladder wall thickening N32.89 Active 122305022 Problem Atrophy of left kidney N26.1 Active 595301941 Problem Gastroesophageal reflux disease, esophagitis pre sence not specified K21.9 Active 655168899 ALLERGIES Substance Reaction Event Type Date Status Penicillin V Potassium Cannot tolerate Oral PCN. St ates she can tolerate injections Drug Allergy May, Active Orencia Unknown Drug Allergy May, Active Cipro Unknown Drug Allergy May, Active Codeine Unknown Drug Allergy May, Active Ivp Dye anaphylaxis Non Drug Allergy May, Active ENCOUNTERS Encounter Location Date Diagnosis [place] [address] [place] [id number] [place] [phone] May, Chronic pain syndrome G89.4 [facility] [id number] [place] [id number] 14 May, 2018 [facility] [address] [address] [id number] [place] [phone] May, [facility] [id number] [place] [phone] May, Moderate persistent asthma w ith acute exacerbation J45.41 [place] [address] [place] [address] [id number] [place] [phone] May, Moderate persistent asthma w ith acute exacerbation J45.41 and Hypoxia R09.02 [facility] [address] [place] [id number] [place] [phone] Apr, Chronic pain syndrome G89.4 [place] [address] [place] [id number] [place] [phone] Mar, High ankle sprain of right l ower extremity, subsequent encounter S93.431D ; Lumbago with sciatica, left side M54.42 and Lumbago with sciatica, right side M54.41 [place] [address] [place] [id number] [place] [phone] Mar, [facility] [address] [id number] [place] [phone] Mar, Chronic pain syndrome G89.4 [facility] [address] [place] [address] [id number] [place] [phone] Mar, [facility] [address] [place] [address] [id number] [place] [phone] Mar, Asthma exacerbation J45.901 and Sprain of right ankle, unspecified ligament, subsequent encounter S93.401D [facility] [address] [id number] [address] [place] [id number] 30 Feb, 2018 Injury of right ankle, initi al encounter S99.911A [facility] [address] [id number] [address] [place] [phone] 22 Feb, 2018 Chronic pain syndrome G89.4 [facility] [address] [id number] [address] [place] [id number] 15 Feb, 2018 Chronic pain syndrome G89.4 [facility] [address] [id number] [address] [place] [phone] Feb, Moderate persistent asthma w ith acute exacerbation J45.41 and Persistent cough for 3 weeks or longer R05 [facility] [address] [place] [address] [id number] [place] [phone] January, [facility] [address] [facility] [id number] [address] [place] [phone] January, Moderate persistent asthma w ith acute exacerbation J45.41 [place] [address] [facility] [id number] [address] [place] [phone] January, Chronic pain syndrome G89.4 [facility] [address] [facility] [id number] [address] [place] [id number] January, Tachycardia R00.0 and Modera te persistent asthma with acute exacerbation J45.41 [facility] [address] [facility] [id number] [address] [place] [phone] January, Tachycardia R00.0 ; Moderate persistent asthma with acute exacerbation J45.41 ; Gastroesophageal reflux disease, esophagitis presence not specified K21.9 ; Hyperlipidemia, unspecified hyperlipidemia E78.5 and Chronic pain syndrome G89.4 [facility] [address] [facility] [id number] [address] [place] [phone] Dec, Medicare annual wellness vis it, initial [...] immunization Z23 and Chronic pain syndrome G89.4 [facility] [address] [facility] [id number] [address] [place] [phone] 24 Dec, 2017 Chronic pain syndrome G89.4 [facility] [address] [facility] [id number] [address] [place] [phone] Dec, [place] [address] [place] [address] [id number] [place] [phone] Nov, [place] [address] [place] [id number] [place] [phone] Nov, Chronic pain syndrome G89.4 [place] [address] [place] [id number] [place] [phone] Oct, Chronic pain syndrome G89.4 [facility] [address] [id number] [place] [id number] 08 Oct, 2017 Chronic kidney disease, stag e 1 N18.1 [place] [address] [place] [id number] [place] [id number] 07 Oct, 2017 Chronic prescription opiate use Z79.899 ; Cough R05 ; Asthma exacerbation J45.901 ; Elevated liver enzymes R74.8 ; Rheumatoid arthritis involving multiple sites with positive rheumatoid factor M05.89 and Chronic pain syndrome G89.4 [facility] [address] [facility] [id number] [address] [place] [phone] Sep, Chronic pain syndrome G89.4 [facility] [address] [place] [id number] [place] [phone] Sep, [facility] [address] [place] [address] [id number] [place] [phone] Aug, Acute bronchitis, unspecifie d organism J20.9 [facility] [address] [id number] [place] [phone] Aug, Chronic pain syndrome G89.4 [facility] [address] [place] [id number] [place] [phone] Jul, Chronic pain syndrome G89.4 [facility] [address] [phone] Jun, Chronic pain syndrome G89.4 [facility] [address] [id number] [place] [phone] 29 May, 2017 Rheumatoid arthritis involvi ng multiple sites with positive rheumatoid factor M05.89 [place] [address] [address] May, Gastroesophageal reflux dise ase, esophagitis presence not specified K21.9 and Chronic pain syndrome G89.4 [place] [address] [phone] May, [place] [address] [address] May, Esophageal candidiasis B37.8 1 and Chronic kidney disease, stage 1 N18.1 [place] [address] [place] [id number] [place] [phone] 11 May, 2017 Chronic kidney disease, stag e 1 N18.1 [place] [address] [place] [id number] [place] [phone] 05 May, 2017 Cough R05 ; Fever, unspecifi ed fever cause R50.9 ; Rheumatoid arthritis involving multiple sites with positive rheumatoid factor M05.89 and Chronic prescription opiate use Z79.899 [place] [address] [place] [id number] [place] [phone] Apr, [place] [address] [place] [id number] [place] [phone] Apr, Cough R05 [place] [address] [place] [id number] [place] [phone] Apr, Asthma exacerbation J45.901 [place] [address] [place] [id number] [place] [phone] Apr, [facility] [address] [facility] [id number] [address] [place] [phone] Apr, Generalized anxiety disorder F41.1 and Severe episode of recurrent major depressive disorder, without psychotic features F33.2 [facility] [address] [place] [id number] [place] [phone] Mar, [place] [address] [place] [id number] [place] [phone] Feb, Chronic pain syndrome G89.4 [place] [address] [id number] Feb, Acute non-recurrent maxillar y sinusitis J01.00 [place] [address] [place] [id number] [place] [id number] Feb, Acute non-recurrent frontal sinusitis J01.10 [place] [address] [place] [id number] [place] [id number] Feb, Chronic pain syndrome G89.4 [place] [id number] [place] [address] January, Acute cystitis with hematuri a N30.01 [place] [address] [place] [id number] [place] [phone] January, Acute cystitis with hematuri a N30.01 ; Dysuria R30.0 and Moderate persistent asthma with acute exacerbation J45.41 [place] [address] [place] [id number] [place] [phone] January, [place] [address] [place] [id number] [place] [id number] January, Chronic pain syndrome G89.4 [place] [address] [place] [id number] [place] [address] January, Asthma exacerbation J45.901 [place] [address] [address] January, Asthma exacerbation J45.901 [place] [address] [address] Dec, Cough R05 ; Numbness in both hands R20.0 ; Ground glass opacity present on imaging of lung R91.8 ; Hypoxia R09.02 and Asthma exacerbation J45.901 [place] [address] [address] Dec, Chronic pain syndrome G89.4 [place] [address] [address] Nov, Chronic prescription opiate use Z79.899 ; Rheumatoid arthritis involving multiple sites with positive rheumatoid factor M05.89 ; Moderate persistent asthma with acute exacerbation J45.41 ; Pneumonia of right lower lobe due to infectious organism J18.1 ; Chronic pain syndrome G89.4 ; Gastroesophageal reflux disease, esophagitis presence not specified K21.9 and Hyperlipidemia, unspecified hyperlipidemia E78.5 [place] [address] [address] Nov, Rheumatoid arthritis involvi ng multiple sites with positive rheumatoid factor M05.89 [place] [address] [address] Oct, [place] [address] [address] Oct, Essential hypertension I10 [place] [address] [address] Sep, Hypoxia R09.02 and Ground gl ass opacity present on imaging of lung R91.8 [place] [address] [place] [id number] [place] [phone] Sep, Moderate persistent asthma w ith acute exacerbation J45.41 [facility] [id number] [place] [id number] Sep, [facility] [address] [facility] [id number] [address] [place] [id number] Sep, Chronic constipation K59.00 and Moderate persistent asthma with acute exacerbation J45.41 [facility] [address] [facility] [id number] [address] [place] [id number] Sep, Moderate persistent asthma w ith acute exacerbation J45.41 [facility] [address] [id number] [address] [place] [id number] Aug, [facility] [address] [facility] [id number] [address] [place] [phone] Aug, [facility] [address] [facility] [id number] [address] [place] [phone] Aug, [facility] [address] [facility] [id number] [address] [place] [phone] Aug, Rheumatoid arthritis involvi ng multiple sites with positive rheumatoid factor M05.89 ; Essential hypertension I10 ; Hyperlipidemia, unspecified hyperlipidemia E78.5 ; Chronic constipation K59.00 and Moderate persistent asthma with acute exacerbation J45.41 [facility] [address] [facility] [id number] [address] [place] [phone] Aug, Bronchitis J40 [facility] [address] [facility] [id number] [address] [place] [phone] Aug, Rheumatoid arthritis involvi ng multiple sites with positive rheumatoid factor M05.89 [facility] [address] [id number] [address] [place] [id number] Aug, Pharyngitis, unspecified pablito ology J02.9 and Acute nasopharyngitis J00 [facility] [address] [facility] [id number] [address] [place] [phone] Aug, [facility] [address] [facility] [id number] [address] [place] [phone] Jul, [facility] [address] [place] [id number] [place] [id number] Jul, Rheumatoid arthritis involvi ng multiple sites with positive rheumatoid factor M05.89 ; Essential hypertension I10 ; Hyperlipidemia, unspecified hyperlipidemia E78.5 ; Rash R21 ; Mild persistent asthma with acute exacerbation J45.31 ; Hematuria R31.9 ; Osteoporosis M81.0 and Gastroesophageal reflux disease, esophagitis presence not specified K21.9 [facility] [address] [place] [id number] [place] [phone] Jun, [facility] [address] [place] [address] [id number] [place] [phone] Jun, Dysuria R30.0 [facility] [id number] [place] [id number] Jun, Acute non-recurrent maxillar y sinusitis J01.00 and Dysuria R30.0 [facility] [id number] [place] [address] May, [facility] [address] [place] [id number] [place] [phone] May, [facility] [address] [place] [id number] [place] [address] Apr, Chronic prescription opiate use Z79.899 and Rheumatoid arthritis involving multiple sites with positive rheumatoid factor M05.89 [facility] [address] [place] [id number] [place] [id number] Mar, [facility] [address] [place] [id number] [place] [phone] Feb, Dizziness of unknown cause R 42 and Other chronic pain G89.29 [facility] [address] [place] [id number] [place] [phone] Feb, [facility] [address] [place] [id number] [place] [id number] Feb, Shortness of breath R06.02 [facility] [address] [id number] [address] [place] [id number] January, [facility] [address] [facility] [id number] [address] [place] [address] January, Rheumatoid arthritis involvi ng multiple sites with positive rheumatoid factor M05.89 ; Chronic prescription opiate use Z79.899 ; Hyperlipidemia, unspecified hyperlipidemia E78.5 ; Cough R05 ; Exposure to pneumonia Z20.828 ; Diarrhea, unspecified type R19.7 ; Weight loss R63.4 ; Lumbago with sciatica, right side M54.41 and Lumbago with sciatica, left side M54.42 [place] [address] [facility] [id number] [address] [place] [id number] Dec, [facility] [address] [facility] [id number] [address] [place] [phone] Dec, Bronchitis J40 [facility] [address] [facility] [id number] [address] [place] [phone] Nov, [facility] [address] [facility] [id number] [address] [place] [phone] Nov, [facility] [address] [facility] [id number] [address] [place] [phone] Nov, [facility] [address] [facility] [id number] [address] [place] [phone] Nov, Bloody diarrhea R19.7 ; [place] n wall thickening K63.9 ; Shortness of breath R06.02 and Bladder wall thickening N32.89 [facility] [address] [id number] [address] [place] [address] [id number] Oct, Dental examination Z01.20 [facility] [address] [facility] [id number] [address] [place] [phone] Oct, [facility] [address] [facility] [id number] [address] [place] [phone] Oct, Toothache K08.8 [facility] [address] [id number] [address] [place] [address] [id number] 11 Oct, 2015 Dental examination Z01.20 [facility] [address] [facility] [id number] [address] [place] [phone] 02 Oct, 2015 [facility] [address] [facility] [id number] [address] [place] [id number] 18 Sep, 2015 [facility] [address] [facility] [id number] [address] [place] [phone] Sep, Burning with urination R30.0 [facility] [address] [id number] [address] [place] [phone] Sep, Hematuria R31.9 ; Rheumatoid arthritis involving multiple sites with positive rheumatoid factor M05.89 and Rheumatoid arthritis flare M06.9 [place] [address] [facility] [id number] [address] [place] [id number] Aug, Hyperlipidemia, unspecified hyperlipidemia E78.5 and Hematuria R31.9 [facility] [address] [facility] [id number] [address] [place] [phone] Aug, Hematuria R31.9 ; Chronic ki dney disease, stage 1 N18.1 and Hyperlipidemia, unspecified hyperlipidemia E78.5 [place] [address] [facility] [id number] [address] [place] [id number] Aug, Rheumatoid arthritis involvi ng multiple sites with positive rheumatoid factor M05.89 ; Asthma exacerbation J45.901 ; Hematuria R31.9 ; Hyperlipidemia, unspecified hyperlipidemia E78.5 and Chronic kidney disease, stage 1 N18.1 [facility] [address] [facility] [id number] [address] [place] [phone] Aug, [facility] [address] [facility] [id number] [address] [place] [phone] Jul, [facility] [address] [facility] [id number] [address] [place] [id number] Jul, Lumbosacral radiculopathy M5 4.17 [place] [address] [id number] [address] [place] [phone] Jul, [facility] [address] [facility] [id number] [address] [place] [phone] Jun, Rheumatoid arthritis involvi ng multiple sites with positive rheumatoid factor M05.89 ; Hyperlipidemia, unspecified hyperlipidemia E78.5 ; Lumbosacral radiculopathy M54.17 ; Carpal tunnel syndrome, right upper limb G56.01 and Carpal tunnel syndrome, left upper limb G56.02 [facility] [address] [id number] [address] [place] [phone] Jun, [facility] [address] [facility] [id number] [address] [place] [phone] May, Lumbar radicular pain 724.4 and Dysuria 788.1 [facility] [address] [facility] [id number] [address] [place] [phone] May, Rheumatoid arthritis 714.0 ; Lumbar radicular pain 724.4 ; Burn 949.0 and Thoracic back pain 724.1 [facility] [address] [facility] [id number] [address] [place] [phone] May, [facility] [address] [facility] [id number] [address] [place] [phone] May, [facility] [address] [facility] [id number] [address] [place] [phone] Apr, [facility] [address] [facility] [id number] [address] [place] [phone] Mar, Hyperlipidemia 272.4 [facility] [address] [facility] [id number] [address] [place] [phone] Mar, [facility] [address] [facility] [id number] [address] [place] [phone] Mar, [facility] [address] [facility] [id number] [address] [place] [id number] Mar, Diarrhea 787.91 ; Chronic ki dney disease, unspecified 585.9 ; Hyperlipidemia 272.4 and Asthma 493.90 [facility] [address] [id number] [address] [place] [id number] Mar, [facility] [address] [id number] [address] [place] [id number] Mar, Gastroenteritis 558.9 [facility] [address] [id number] [address] [place] [id number] Feb, [facility] [address] [id number] [address] [place] [id number] January, [facility] [address] [id number] [address] [place] [phone] January, [facility] [address] [facility] [id number] [address] [place] [id number] Dec, [facility] [address] [id number] [address] [place] [id number] Dec, [facility] [address] [id number] [address] [place] [id number] Nov, [facility] [address] [id number] [address] [place] [id number] Nov, [facility] [address] [id number] [address] [place] [id number] Nov, [facility] [address] [id number] [address] [place] [id number] Nov, [facility] [address] [id number] [address] [place] [id number] Nov, [facility] [address] [id number] [address] [place] [id number] Nov, [facility] [address] [id number] [address] [place] [phone] 16 Oct, 2014 [facility] [address] [id number] [address] [place] [id number] Oct, [facility] [address] [id number] [address] [place] [address], [place] [id number] Sep, [facility] [address] [id number] [address] [place] [address], [place] [id number] Sep, [facility] [address] [id number] [address] [place] [address], [place] [id number] Sep, [facility] [address] [id number] [address] [place] [address], [place] [id number] Sep, [facility] [address] [id number] [address] [place] [address], [place] [id number] Sep, [facility] [address] [id number] [address] [place] [address], [place] [id number] Sep, [facility] [address] [id number] [address] [place] [address], [place] [phone] Aug, [facility] [address] [id number] [address] [place] [address], [place] [phone] Aug, [facility] [address] [id number] [address] [place] [address], [place] [id number] Aug, [facility] [address] [id number] [address] [place] [address], [place] [id number] Aug, [facility] [address] [id number] [address] [place] [address], [place] [id number] Jul, [facility] [address] [id number] [address] [place] [address], [place] [id number] Jul, [facility] [address] [id number] [address] [place] [address], [place] [id number] Jul, [facility] [address] [id number] [address] [place] [address], [place] [id number] Jul, [facility] [address] [id number] [address] [place] [address], [place] [id number] Jul, [facility] [address] [id number] [address] [place] [address], [place] [id number] 07 Jul, 2014 [facility] [address] [id number] [address] [place] [address], [place] [id number] Jul, [facility] [address] [id number] [address] [place] [address], [place] [id number] Jul, [facility] [address] [id number] [address] [place] [address], [place] [id number] Jul, [facility] [address] [id number] [address] [place] [address], [place] [id number] Jun, [facility] [address] [id number] [address] [place] [address], [place] [id number] Jun, [facility] [address] [id number] [address] [place] [address], [place] [phone] Jun, [facility] [address] [id number] [address] [place] [address], [place] [id number] 25 May, 2013 [facility] [address] [id number] [address] [place] [address], [place] [id number] 25 Sep, 2013 [facility] [address] [id number] [address] [place] [address], [place] [id number] 24 May, 2013 [facility] [address] [id number] [address] [place] [address], [place] [id number] 24 Sep, 2013 [facility] [address] [id number] [address] [place] [address], [place] [id number] 24 Sep, 2013 [facility] [address] [id number] [address] [place] [address], [place] [id number] 24 Sep, 2013 [facility] [address] [id number] [address] [place] [address], [place] [id number] 19 Sep, 2013 [facility] [address] [id number] [address] [place] [address], [place] [phone] 19 Sep, 2013 [facility] [address] [id number] [address] [place] [address], [place] [id number] May, [facility] [address] [id number] [address] [place] [phone] May, [facility] [address] [id number] [address] [place] [id number] May, [facility] [address] [id number] [address] [place] [id number] May, [facility] [address] [id number] [address] [place] [id number] May, [facility] [address] [id number] [address] [place] [phone] May, [facility] [address] [id number] [address] [place] [id number] May, [facility] [address] [id number] [address] [place] [phone] May, [facility] [address] [id number] [address] [place] [phone] Apr, [facility] [address] [id number] [address] [place] [phone] Apr, [facility] [address] [id number] [address] [place] [id number] Aug, [facility] [address] [id number] [address] [place] [phone] Jul, IMMUNIZATIONS Vaccine Route Administration Date Status SOLUMEDROL (UP TO 125 MG) IM Intramuscular Jun 01, 2018 Admin istered SOCIAL HISTORY Never Assessed REASON FOR VISIT Cold symptoms, fever , cough , shortness of breath x 2 week -- keya stewart PLAN OF CARE Activity Details Follow Up tomorrow with Ian Reason: VITAL SIGNS Height 66 in 2018-06-01 Weight 157.0 lbs 2018-06-01 Temperature 98.7 degrees Fahrenheit 2018-06-01 Heart Rate 84 bpm 2018-06-01 Oximetry 83 % 2018-06-01 BMI 25.34 kg/m2 2018-06-01 Blood pressure systolic 126 mmHg 2018-06-01 Blood pressure diastolic 82 mmHg 2018-06-01 MEDICATIONS Medication Instructions Dosage Frequency Start Date End Date Duration S tatus Cetirizine HCl 10 mg Orally Once a day 1 tablet 24h Mar, 8 Aug, 30 day(s) Active Gabapentin 400 mg Orally Three times a day 2 capsules 8h 25 Dec, Active Breo Ellipta 200-25 MCG/INH Inhalation Once a day 1 puff 24h Active Guaifenesin 400 mg Orally every 4 hrs 1 tablet as needed 4h January, 30 days Active Flonase 50 MCG/ACT Nasally Once a day 1 spray in each nostril 24h Mar, 30 day(s) Active Ipratropium-Albuterol 0.5-2.5 (3) mg/3ml Inhalation every 6 hrs 3 ml as needed 6h Active Singulair 10 MG Orally Once a day 1 tablet 24h Active Leflunomide 20 MG Orally Once a day 1 tablet 24h Active PredniSONE 20 mg Orally Once a day 3 tabs x 3 days, the n 2 tabs x 3 days then 1 tab x 3 days then 1/2 tab daily x 4 days. 24h May, May, 0 days Active Tylenol Arthritis Pain by oral route 2 times a day 2tablets 12h Active OxyContin 15 mg Orally every 12 hrs 1 tablet 12h Apr, 28 days Active Incruse Ellipta 62.5 MCG/INH Inhalation Once a day 1 puff 24h Active Simvastatin 40 mg Orally Once a day 1 tablet in the evening 24h Mar, 90 days Active ProAir HFA 108 (90 Base) MCG/ACT Inhalation every 4 hrs 2 puffs as needed 4h Mar, Active Benzonatate 200 mg Orally Three times a day 1 capsule as needed 8h 30 Active Cymbalta 60 mg Orally Once a day 1 capsule 24h Apr, 90 days Active Bystolic 10 mg Orally 2 times a day 1 tablet 12h 90 days Active Cyclobenzaprine HCl 10 MG TAKE ONE TABLE T BY MOUTH THREE TIMES DAILY NEEDED 90 Active Omeprazole 40 mg Orally Once a day 1 capsule 24h Jul, 90 days Active Ibuprofen 200 MG Orally every 4-6 hours as needed 2 tablets Active RESULTS No Results PROCEDURES Procedure Date Ordered Result Body Site SOLUMEDROL (UP TO 125 MG) Jun 01, 2018 THER/PROPH/DIAG INJ, SC/IM Jun 01, 2018 INSTRUCTIONS MEDICATIONS ADMINISTERED No Known Medications MEDICAL [...]
--- OUTSIDE RECORDS SUMMARY | 2020-02-27 15:46 | XMS REPORT ---
Author Author Beba CORBIN [facility] Address [address] [place] [address] Care Team Providers Care Chemical Pathologist Name Role Phone EMERALD EDWARD Unavailable PROBLEMS Type Condition ICD9-CM Code [id number] Code Onset Dates Condition S tatus SNOMED Code Problem Osteoporosis M81.0 Active 7907793 [id number] Problem Chronic pain syndrome G89.4 Active 986960509 Problem Moderate persistent asthma with acute exacerbation J45.41 Active [id number] Problem Lumbago with sciatica, right side M54.41 Active 870882309282854 Problem Chronic constipation K59.00 Active 632233977 Problem Lumbago with sciatica, left side M54.42 Active 352899001 Problem Chronic kidney disease, stage 1 N18.1 Active 919246091 Problem Severe episode of recurrent major depressive disorder, without psychotic features F33.2 Active 22875533 Problem Asthma exacerbation J45.901 Active 384023338 Problem Moderate persistent asthma without complication J4 5.40 Active 161643283 Problem Generalized anxiety disorder F41.1 A ctive 14459226 Problem Pernicious anemia D51.0 Active 84 395080 Problem Hyperlipidemia, unspecified hyperlipidemia E78.5 Active 82797281 Problem Essential hypertension I10 Active 77554572 Problem Vitamin D deficiency E55.9 Active 02189196 Problem Chronic prescription opiate use Z79.899 Active 377991870 Problem Colon wall thickening K63.9 Active 070085744 Problem Rheumatoid arthritis involvi ng multiple sites with positive rheumatoid factor M05.89 Active 478614948 Problem Bladder wall thickening N32.89 Active 477134602 Problem Atrophy of left kidney N26.1 Active 322204978 Problem Gastroesophageal reflux disease, esophagitis pre sence not specified K21.9 Active 591440494 ALLERGIES No Information ENCOUNTERS Encounter Location Date Diagnosis [facility] [address] [id number] [address] [place] [address] Apr, Chronic pain syndrome G89.4 [facility] [address] [id number] [address] [place] [id number] Mar, High ankle sprain of right l ower extremity, subsequent encounter S93.431D ; Lumbago with sciatica, left side M54.42 and Lumbago with sciatica, right side M54.41 [facility] [address] [id number] [address] [place] [id number] Mar, [facility] [address] [id number] [address] [place] [id number] Mar, Chronic pain syndrome G89.4 [facility] [address] [id number] [address] [place] [id number] Mar, [facility] [address] [id number] [address] [place] [id number] Mar, Asthma exacerbation J45.901 and Sprain of right ankle, unspecified ligament, subsequent encounter S93.401D [facility] [address] [id number] [address] [place] [id number] Feb, Injury of right ankle, initi al encounter S99.911A [facility] [address] [id number] [address] [place] [id number] Feb, Chronic pain syndrome G89.4 [facility] [address] [id number] [address] [place] [id number] Feb, Chronic pain syndrome G89.4 [facility] [address] [id number] [address] [place] [id number] Feb, Moderate persistent asthma w ith acute exacerbation J45.41 and Persistent cough for 3 weeks or longer R05 [facility] [address] [id number] [address] [place] [id number] January, [facility] [address] [id number] [address] [place] [id number] January, Moderate persistent asthma w ith acute exacerbation J45.41 [place] [address] [id number] [address] [place] [id number] 23 Jan, 2018 Chronic pain syndrome G89.4 [place] [address] [id number] [address] [place] [id number] 14 Jan, 2018 Tachycardia R00.0 and Modera te persistent asthma with acute exacerbation J45.41 [place] [address] [place] [id number] [address] [place] [id number] 11 Jan, 2018 Tachycardia R00.0 ; Moderate persistent asthma with acute exacerbation J45.41 ; Gastroesophageal reflux disease, esophagitis presence not specified K21.9 ; Hyperlipidemia, unspecified hyperlipidemia E78.5 and Chronic pain syndrome G89.4 [place] [address] [place] [id number] [place] [phone] Dec, Medicare annual wellness vis it, initial [...] immunization Z23 and Chronic pain syndrome G89.4 [place] [address] [place] [id number] [address] [place] [id number] Dec, Chronic pain syndrome G89.4 [place] [address] [place] [id number] [address] [place] [phone] Dec, [place] [address] [id number] [address] [place] [phone] Nov, [place] [address] [place] [id number] [address] [place] [id number] Nov, Chronic pain syndrome G89.4 [place] [address] [place] [id number] [address] [place] [id number] Oct, Chronic pain syndrome G89.4 [facility] [address] [id number] [address] [place] [id number] 08 Oct, 2017 Chronic kidney disease, stag e 1 N18.1 [place] [address] [id number] [address] [place] [id number] 07 Oct, 2017 Chronic prescription opiate use Z79.899 ; Cough R05 ; Asthma exacerbation J45.901 ; Elevated liver enzymes R74.8 ; Rheumatoid arthritis involving multiple sites with positive rheumatoid factor M05.89 and Chronic pain syndrome G89.4 [place] [address] [id number] [address] [place] [id number] Sep, Chronic pain syndrome G89.4 [place] [address] [place] [id number] [address] [place] [phone] Sep, [place] [address] [place] [id number] [address] [place] [phone] Aug, Acute bronchitis, unspecifie d organism J20.9 [place] [address] [id number] [address] [place] [phone] Aug, Chronic pain syndrome G89.4 [place] [address] [place] [id number] [address] [place] [id number] Jul, Chronic pain syndrome G89.4 [place] [address] [place] [id number] [address] [place] [id number] Jun, Chronic pain syndrome G89.4 [place] [address] [place] [id number] [address] [place] [id number] May, Rheumatoid arthritis involvi ng multiple sites with positive rheumatoid factor M05.89 [place] [address] [id number] [address] [place] [id number] May, Gastroesophageal reflux dise ase, esophagitis presence not specified K21.9 and Chronic pain syndrome G89.4 [place] [address] [place] [id number] [address] [place] [address] May, [place] [address] [address] 12 May, 2017 Esophageal candidiasis B37.8 1 and Chronic kidney disease, stage 1 N18.1 [place] [address] [address] 11 May, 2017 Chronic kidney disease, stag e 1 N18.1 [place] [address] [address] 05 May, 2017 Cough R05 ; Fever, unspecifi ed fever cause R50.9 ; Rheumatoid arthritis involving multiple sites with positive rheumatoid factor M05.89 and Chronic prescription opiate use Z79.899 [place] [address] [address] Apr, [place] [address] [address] Apr, Cough R05 [place] [address] [address] Apr, Asthma exacerbation J45.901 [place] [address] [address] Apr, [place] [address] [address] Apr, Generalized anxiety disorder F41.1 and Severe episode of recurrent major depressive disorder, without psychotic features F33.2 [place] [address] [address] Mar, [place] [address] [address] Feb, Chronic pain syndrome G89.4 [place] [address] [address] Feb, Acute non-recurrent maxillar y sinusitis J01.00 [place] [address] [address] Feb, Acute non-recurrent frontal sinusitis J01.10 [facility] [address] [id number] [address] [place] [id number] Feb, Chronic pain syndrome G89.4 [facility] [address] [id number] [address] [place] [id number] January, Acute cystitis with hematuri a N30.01 [facility] [address] [id number] [address] [place] [address] January, Acute cystitis with hematuri a N30.01 ; Dysuria R30.0 and Moderate persistent asthma with acute exacerbation J45.41 [place] [address] [id number] [address] [place] [id number] January, [place] [address] [id number] [address] [place] [address] January, Chronic pain syndrome G89.4 [facility] [address] [id number] [address] [place] [address] January, Asthma exacerbation J45.901 [facility] [address] [id number] [address] [place] [address] January, Asthma exacerbation J45.901 [facility] [address] [id number] [address] [place] [id number] Dec, Cough R05 ; Numbness in both hands R20.0 ; Ground glass opacity present on imaging of lung R91.8 ; Hypoxia R09.02 and Asthma exacerbation J45.901 [facility] [address] [id number] [address] [place] [address] Dec, Chronic pain syndrome G89.4 [facility] [address] [id number] [address] [place] [address] Nov, Chronic prescription opiate use Z79.899 ; Rheumatoid arthritis involving multiple sites with positive rheumatoid factor M05.89 ; Moderate persistent asthma with acute exacerbation J45.41 ; Pneumonia of right lower lobe due to infectious organism J18.1 ; Chronic pain syndrome G89.4 ; Gastroesophageal reflux disease, esophagitis presence not specified K21.9 and Hyperlipidemia, unspecified hyperlipidemia E78.5 [facility] [address] [id number] [address] [place] [address] Nov, Rheumatoid arthritis involvi ng multiple sites with positive rheumatoid factor M05.89 [facility] [address] [id number] [address] [place] [address] Oct, [place] [address] [place] [id number] [address] [place] [address] Oct, Essential hypertension I10 [address] [address] Sep, Hypoxia R09.02 and Ground gl ass opacity present on imaging of lung R91.8 [place] [id number] [place] [address] Sep, Moderate persistent asthma w ith acute exacerbation J45.41 [facility] [id number] [place] [id number] Sep, [place] [address] [id number] [address] [place] [id number] Sep, Chronic constipation K59.00 and Moderate persistent asthma with acute exacerbation J45.41 [facility] [address] [id number] [address] [place] [phone] Sep, Moderate persistent asthma w ith acute exacerbation J45.41 [facility] [address] [id number] [address] [place] [address] Aug, [facility] [address] [id number] [address] [place] [id number] Aug, [facility] [address] [id number] [address] [place] [id number] Aug, [facility] [address] [id number] [address] [place] [address] Aug, Rheumatoid arthritis involvi ng multiple sites with positive rheumatoid factor M05.89 ; Essential hypertension I10 ; Hyperlipidemia, unspecified hyperlipidemia E78.5 ; Chronic constipation K59.00 and Moderate persistent asthma with acute exacerbation J45.41 [place] [address] [address] Aug, Bronchitis J40 [facility] [address] [place] [id number] [place] [address] Aug, Rheumatoid arthritis involvi ng multiple sites with positive rheumatoid factor M05.89 [place] [address] [address] Aug, Pharyngitis, unspecified pablito ology J02.9 and Acute nasopharyngitis J00 [place] [address] [address] Aug, [place] [address] [address] Jul, [place] [address] [address] Jul, Rheumatoid arthritis involvi ng multiple sites with positive rheumatoid factor M05.89 ; Essential hypertension I10 ; Hyperlipidemia, unspecified hyperlipidemia E78.5 ; Rash R21 ; Mild persistent asthma with acute exacerbation J45.31 ; Hematuria R31.9 ; Osteoporosis M81.0 and Gastroesophageal reflux disease, esophagitis presence not specified K21.9 [place] [address] [address] Jun, [place] [address] [address] Jun, Dysuria R30.0 [facility] [address] [place] [id number] [place] [address] Jun, Acute non-recurrent maxillar y sinusitis J01.00 and Dysuria R30.0 [facility] [address] [place] [id number] [address] [place] [phone] May, [facility] [address] [place] [id number] [address] [place] [address] May, [facility] [address] [address] Apr, Chronic prescription opiate use Z79.899 and Rheumatoid arthritis involving multiple sites with positive rheumatoid factor M05.89 [place] [address] [address] Mar, [place] [address] [address] Feb, Dizziness of unknown cause R 42 and Other chronic pain G89.[address] [address] Feb, [place] [address] [address] Feb, Shortness of breath R06.02 [place] [address] [address] January, [place] [address] [address] January, Rheumatoid arthritis involvi ng multiple sites with positive rheumatoid factor M05.89 ; Chronic prescription opiate use Z79.899 ; Hyperlipidemia, unspecified hyperlipidemia E78.5 ; Cough R05 ; Exposure to pneumonia Z20.828 ; Diarrhea, unspecified type R19.7 ; Weight loss R63.4 ; Lumbago with sciatica, right side M54.41 and Lumbago with sciatica, left side M54.42 [place] [address] [place] [id number] [address] [place] [id number] Dec, [place] [address] [address] Dec, Bronchitis J40 [place] [address] [place] [id number] [address] [place] [id number] Nov, [place] [address] [facility] [id number] [address] [place] [phone] Nov, [facility] [address] [id number] [address] [place] [address] Nov, [facility] [address] [id number] [address] [place] [address] Nov, Bloody diarrhea R19.7 ; Parmelee n wall thickening K63.9 ; Shortness of breath R06.02 and Bladder wall thickening N32.89 [facility] [address] [id number] [address] [place] [id number] 15 Oct, 2015 Dental examination Z01.20 [facility] [address] [id number] [address] [place] [id number] 15 Oct, 2015 [facility] [address] [id number] [address] [place] [id number] 15 Oct, 2015 Toothache K08.8 [facility] [address] [id number] [address] [place] [id number] 11 Oct, 2015 Dental examination Z01.20 [facility] [address] [id number] [address] [place] [id number] 02 Oct, 2015 [facility] [address] [id number] [address] [place] [id number] 18 Sep, 2015 [facility] [address] [place] [id number] [address] [place] [id number] 13 Sep, 2015 Burning with urination R30.0 [facility] [address] [id number] [address] [place] [id number] 12 Sep, 2015 Hematuria R31.9 ; Rheumatoid arthritis involving multiple sites with positive rheumatoid factor M05.89 and Rheumatoid arthritis flare M06.9 [facility] [address] [id number] [address] [place] [address] Aug, Hyperlipidemia, unspecified hyperlipidemia E78.5 and Hematuria R31.9 [facility] [address] [id number] [address] [place] [id number] Aug, Hematuria R31.9 ; Chronic ki dney disease, stage 1 N18.1 and Hyperlipidemia, unspecified hyperlipidemia E78.5 [facility] [address] [id number] [address] [place] [address] Aug, Rheumatoid arthritis involvi ng multiple sites with positive rheumatoid factor M05.89 ; Asthma exacerbation J45.901 ; Hematuria R31.9 ; Hyperlipidemia, unspecified hyperlipidemia E78.5 and Chronic kidney disease, stage 1 N18.1 [facility] [address] [id number] [address] [place] [id number] Aug, [place] [address] [id number] [address] [place] [id number] Jul, [place] [address] [place] [id number] [address] [place] [address] Jul, Lumbosacral radiculopathy M5 4.17 [place] [address] [id number] [address] [place] [phone] Jul, [place] [address] [id number] [address] [place] [address] Jun, Rheumatoid arthritis involvi ng multiple sites with positive rheumatoid factor M05.89 ; Hyperlipidemia, unspecified hyperlipidemia E78.5 ; Lumbosacral radiculopathy M54.17 ; Carpal tunnel syndrome, right upper limb G56.01 and Carpal tunnel syndrome, left upper limb G56.02 [place] [address] [id number] [address] [place] [address] Jun, [facility] [address] [id number] [address] [place] [id number] 17 May, 2015 Lumbar radicular pain 724.4 and Dysuria 788.1 [facility] [address] [id number] [address] [place] [id number] 08 May, 2015 Rheumatoid arthritis 714.0 ; Lumbar radicular pain 724.4 ; Burn 949.0 and Thoracic back pain 724.1 [facility] [address] [id number] [address] [place] [phone] May, [facility] [address] [id number] [address] [place] [phone] May, [facility] [address] [id number] [address] [place] [phone] Apr, [facility] [address] [id number] [address] [place] [address] Mar, Hyperlipidemia 272.4 [facility] [address] [id number] [address] [place] [id number] Mar, [facility] [address] [id number] [address] [place] [id number] Mar, [facility] [address] [id number] [address] [place] [phone] Mar, Diarrhea 787.91 ; Chronic ki dney disease, unspecified 585.9 ; Hyperlipidemia 272.4 and Asthma 493.90 [facility] [address] [id number] [address] [place] [id number] Mar, [facility] [address] [id number] [address] [place] [id number] Mar, Gastroenteritis 558.9 [facility] [address] [id number] [address] [place] [id number] Feb, [facility] [address] [id number] [address] [place] [id number] January, [facility] [address] [id number] [address] [place] [phone] January, [facility] [address] [id number] [address] [place] [phone] Dec, [facility] [address] [id number] [address] [place] [phone] Dec, [facility] [address] [id number] [address] [place] [address], [place] [address] 20 Nov, 2014 [facility] [address] [id number] [address] [place] [address], [place] [address] 20 Nov, 2014 [facility] [address] [id number] [address] [place] [address], [place] [address] 19 Nov, 2014 [facility] [address] [id number] [address] [place] [address], [place] [address] 19 Nov, 2014 [facility] [address] [id number] [address] [place] [address], [place] [address] Nov, [facility] [address] [id number] [address] [place] [address], [place] [address] Nov, [facility] [address] [id number] [address] [place] [address], [place] [address] 16 Oct, 2014 [facility] [address] [id number] [address] [place] [address], [place] [address] Oct, [facility] [address] [id number] [address] [place] [address], [place] [address] Sep, [facility] [address] [id number] [address] [place] [address], [place] [address] Sep, [facility] [address] [id number] [address] [place] [address], [place] [address] Sep, [facility] [address] [id number] [address] [place] [address], [place] [id number] Sep, [facility] [address] [id number] [address] [place] [address], [place] [address] Sep, [facility] [address] [id number] [address] [place] [address], [place] [address] Sep, [facility] [address] [id number] [address] [place] [address], [place] [address] Aug, [facility] [address] [id number] [address] [place] [address], [place] [address] Aug, [facility] [address] [id number] [address] [place] [address], [place] [address] Aug, [facility] [address] [id number] [address] [place] [address], [place] [address] Aug, [facility] [address] [id number] [address] [place] [address], [place] [address] Jul, [facility] [address] [id number] [address] [place] [address], [place] [id number] Jul, [facility] [address] [id number] [address] [place] [address], [place] [id number] Jul, [facility] [address] [id number] [address] [place] [address], [place] [id number] Jul, [facility] [address] [id number] [address] [place] [address], [place] [id number] Jul, [facility] [address] [id number] [address] [place] [address], [place] [id number] Jul, [facility] [address] [id number] [address] [place] [address], [place] [id number] Jul, [facility] [address] [id number] [address] [place] [address], [place] [id number] Jul, [facility] [address] [id number] [address] [place] [address], [place] [id number] Jul, [facility] [address] [id number] [address] [place] [id number] Jun, [facility] [address] [id number] [address] [place] [address], [place] [id number] Jun, [facility] [address] [id number] [address] [place] [address], [place] [id number] Jun, [facility] [address] [id number] [address] [place] [address], [place] [id number] May, [facility] [address] [id number] [address] [place] [address], [place] [id number] 25 Sep, 2013 [facility] [address] [id number] [address] [id number] 24 Sep, 2013 [facility] [address] [id number] [address] [place] [address], [place] [id number] 24 Sep, 2013 [facility] [address] [id number] [address] [place] [address], [place] [id number] 24 Sep, 2013 [facility] [address] [id number] [address] [place] [address], [place] [id number] 24 Sep, 2013 [facility] [address] [id number] [address] [place] [address], [place] [id number] 19 Sep, 2013 [facility] [address] [id number] [address] [place] [address], [place] [id number] 19 Sep, 2013 [facility] [address] [id number] [address] [place] [address], [place] [id number] 11 May, 2013 [facility] [address] [id number] [address] [place] [address], [place] [id number] 11 Sep, 2013 [facility] [address] [id number] [address] [place] [address], [place] [id number] 11 May, 2013 [facility] [address] [id number] [address] [place] [address], [place] [id number] 11 May, 2013 [facility] [address] [id number] [address] [place] [address], [place] [id number] 10 May, 2013 [facility] [address] [id number] [address] [place] [address], [place] [id number] 09 Sep, 2013 [facility] [address] [id number] [address] [place] [address], [place] [id number] 09 Sep, 2013 [facility] [address] [id number] [address] [place] [address], [place] [id number] 08 May, 2013 [facility] [address] [id number] [address] [place] [address], [place] [id number] 22 Apr, 2014 [facility] [address] [facility] [id number] [address] [place] [id number] Apr, [facility] [address] [facility] [id number] [address] [place] [id number] Aug, [facility] [address] [facility] [id number] [address] [place] [id number] Jul, IMMUNIZATIONS No Known Immunizations SOCIAL HISTORY Never Assessed REASON FOR VISIT Triage PLAN OF CARE VITAL SIGNS MEDICATIONS Unknown [...] History section x 2 Surgical History otolaryngologic surgery-[facility] 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
--- OUTSIDE RECORDS SUMMARY | 2020-02-27 15:46 | XMS REPORT ---
Author Author Beba CORBIN [facility] Address [address] [place] [address] Care Team Providers Care Director Operating Name Role Phone EMERALD EDWARD Unavailable PROBLEMS Type Condition ICD9-CM Code OVA90-OL Code Onset Dates Condition S tatus SNOMED Code Problem Osteoporosis M81.0 Active 8033330 6 Problem Chronic pain syndrome G89.4 Active 304991615 Problem Moderate persistent asthma with acute exacerbation J45.41 Active 958502613982606 Problem Lumbago with sciatica, right side M54.41 Active 781234596284395 Problem Chronic constipation K59.00 Active 288575722 Problem Lumbago with sciatica, left side M54.42 Active 472978477 Problem Chronic kidney disease, stage 1 N18.1 Active 526834806 Problem Severe episode of recurrent major depressive disorder, without psychotic features F33.2 Active 32154358 Problem Asthma exacerbation J45.901 Active 838155277 Problem Moderate persistent asthma without complication J4 5.40 Active 636145893 Problem Generalized anxiety disorder F41.1 A ctive 01957529 Problem Pernicious anemia D51.0 Active 84 234263 Problem Hyperlipidemia, unspecified hyperlipidemia E78.5 Active 73681776 Problem Essential hypertension I10 Active 24799502 Problem Vitamin D deficiency E55.9 Active 45069125 Problem Chronic prescription opiate use Z79.899 Active 501325073 Problem Colon wall thickening K63.9 Active 503264857 Problem Rheumatoid arthritis involvi ng multiple sites with positive rheumatoid factor M05.89 Active 534437717 Problem Bladder wall thickening N32.89 Active 357059967 Problem Atrophy of left kidney N26.1 Active 803532682 Problem Gastroesophageal reflux disease, esophagitis pre sence not specified K21.9 Active 780684641 ALLERGIES No Information ENCOUNTERS Encounter Location Date Diagnosis [facility] [address] [facility] [id number] [address] [place] [address] Apr, Chronic pain syndrome G89.4 [facility] [address] [id number] [address] [place] [phone] Mar, High ankle sprain of right l ower extremity, subsequent encounter S93.431D ; Lumbago with sciatica, left side M54.42 and Lumbago with sciatica, right side M54.41 [facility] [address] [id number] [address] [place] [id number] Mar, [facility] [address] [id number] [address] [place] [id number] Mar, Chronic pain syndrome G89.4 [facility] [address] [id number] [address] [place] [id number] Mar, [facility] [address] [id number] [address] [place] [address] Mar, Asthma exacerbation J45.901 and Sprain of right ankle, unspecified ligament, subsequent encounter S93.401D [facility] [address] [id number] [address] [place] [address] Feb, Injury of right ankle, initi al encounter S99.911A [facility] [address] [id number] [address] [place] [id number] Feb, Chronic pain syndrome G89.4 [facility] [address] [id number] [address] [place] [id number] Feb, Chronic pain syndrome G89.4 [facility] [address] [id number] [address] [place] [id number] Feb, Moderate persistent asthma w ith acute exacerbation J45.41 and Persistent cough for 3 weeks or longer R05 [facility] [address] [id number] [address] [place] [address] January, [facility] [address] [id number] [address] [place] [address] January, Moderate persistent asthma w ith acute exacerbation J45.41 [place] [address] [facility] [id number] [address] [place] [id number] 23 Jan, 2018 Chronic pain syndrome G89.4 [facility] [place] [address] [facility] [id number] [address] [place] [id number] 14 Jan, 2018 Tachycardia R00.0 and Modera te persistent asthma with acute exacerbation J45.41 [place] [address] [place] [id number] [address] [place] [address] 11 Jan, 2018 Tachycardia R00.0 ; Moderate persistent asthma with acute exacerbation J45.41 ; Gastroesophageal reflux disease, esophagitis presence not specified K21.9 ; Hyperlipidemia, unspecified hyperlipidemia E78.5 and Chronic pain syndrome G89.4 [facility] [place] [address] [place] [id number] [place] [address] Dec, Medicare annual wellness vis it, initial [...] immunization Z23 and Chronic pain syndrome G89.4 [facility] [place] [address] [place] [id number] [address] [place] [id number] Dec, Chronic pain syndrome G89.4 [place] [address] [place] [id number] [address] [place] [address] Dec, [place] [address] [facility] [id number] [address] [place] [phone] Nov, [place] [address] [place] [id number] [address] [place] [address] Nov, Chronic pain syndrome G89.4 [place] [address] [place] [id number] [address] [place] [address] Oct, Chronic pain syndrome G89.4 [facility] [address] [facility] [id number] [address] [place] [id number] 08 Oct, 2017 Chronic kidney disease, stag e 1 N18.1 [place] [address] [facility] [id number] [address] [place] [address] 07 Oct, 2017 Chronic prescription opiate use Z79.899 ; Cough R05 ; Asthma exacerbation J45.901 ; Elevated liver enzymes R74.8 ; Rheumatoid arthritis involving multiple sites with positive rheumatoid factor M05.89 and Chronic pain syndrome G89.4 [place] [address] [facility] [id number] [address] [place] [phone] Sep, Chronic pain syndrome G89.4 [place] [address] [place] [id number] [address] [place] [address] Sep, [place] [address] [place] [id number] [address] [place] [address] Aug, Acute bronchitis, unspecifie d organism J20.9 [place] [address] [facility] [id number] [address] [place] [phone] Aug, Chronic pain syndrome G89.4 [place] [address] [place] [id number] [address] [place] [address] Jul, Chronic pain syndrome G89.4 [place] [address] [place] [id number] [address] [place] [address] Jun, Chronic pain syndrome G89.4 [place] [address] [place] [id number] [address] [place] [address] May, Rheumatoid arthritis involvi ng multiple sites with positive rheumatoid factor M05.89 [place] [address] [facility] [id number] [address] [place] [address] May, Gastroesophageal reflux dise ase, esophagitis presence not specified K21.9 and Chronic pain syndrome G89.4 [place] [address] [place] [id number] [address] [place] [address] May, [place] [address] [address] 12 May, 2017 Esophageal candidiasis B37.8 1 and Chronic kidney disease, stage 1 N18.1 [place] [address] [address] 11 May, 2017 Chronic kidney disease, stag e 1 N18.1 [place] [address] [address] 05 May, 2017 Cough R05 ; Fever, unspecifi ed fever cause R50.9 ; Rheumatoid arthritis involving multiple sites with positive rheumatoid factor M05.89 and Chronic prescription opiate use Z79.899 [place] [address] [address] Apr, [place] [address] [address] Apr, Cough R05 [place] [address] [address] Apr, Asthma exacerbation J45.901 [place] [address] [address] Apr, [place] [address] [address] Apr, Generalized anxiety disorder F41.1 and Severe episode of recurrent major depressive disorder, without psychotic features F33.2 [place] [address] [address] Mar, [place] [address] [address] Feb, Chronic pain syndrome G89.4 [place] [address] [address] Feb, Acute non-recurrent maxillar y sinusitis J01.00 [place] [address] [address] Feb, Acute non-recurrent frontal sinusitis J01.10 [facility] [address] [facility] [id number] [address] [place] [address] Feb, Chronic pain syndrome G89.4 [facility] [address] [id number] [address] [place] [id number] January, Acute cystitis with hematuri a N30.01 [facility] [address] [facility] [id number] [address] [place] [address] January, Acute cystitis with hematuri a N30.01 ; Dysuria R30.0 and Moderate persistent asthma with acute exacerbation J45.41 [place] [address] [facility] [id number] [address] [place] [address] January, [place] [address] [facility] [id number] [address] [place] [address] January, Chronic pain syndrome G89.4 [facility] [address] [facility] [id number] [address] [place] [address] January, Asthma exacerbation J45.901 [facility] [address] [facility] [id number] [address] [place] [address] January, Asthma exacerbation J45.901 [facility] [address] [facility] [id number] [address] [place] [address] Dec, Cough R05 ; Numbness in both hands R20.0 ; Ground glass opacity present on imaging of lung R91.8 ; Hypoxia R09.02 and Asthma exacerbation J45.901 [facility] [address] [facility] [id number] [address] [place] [address] Dec, Chronic pain syndrome G89.4 [facility] [address] [facility] [id number] [address] [place] [address] Nov, Chronic prescription opiate use Z79.899 ; Rheumatoid arthritis involving multiple sites with positive rheumatoid factor M05.89 ; Moderate persistent asthma with acute exacerbation J45.41 ; Pneumonia of right lower lobe due to infectious organism J18.1 ; Chronic pain syndrome G89.4 ; Gastroesophageal reflux disease, esophagitis presence not specified K21.9 and Hyperlipidemia, unspecified hyperlipidemia E78.5 [facility] [address] [facility] [id number] [address] [place] [address] Nov, Rheumatoid arthritis involvi ng multiple sites with positive rheumatoid factor M05.89 [facility] [address] [facility] [id number] [address] [place] [address] Oct, [place] [address] [place] [id number] [address] [place] [address] Oct, Essential hypertension I10 [address] [address] Sep, Hypoxia R09.02 and Ground gl ass opacity present on imaging of lung R91.8 [place] [id number] [address] [place] [address] Sep, Moderate persistent asthma w ith acute exacerbation J45.41 [facility] [id number] [place] [id number] Sep, [place] [address] [facility] [id number] [address] [place] [address] Sep, Chronic constipation K59.00 and Moderate persistent asthma with acute exacerbation J45.41 [facility] [address] [facility] [id number] [address] [place] [address] Sep, Moderate persistent asthma w ith acute exacerbation J45.41 [facility] [address] [facility] [id number] [address] [place] [address] Aug, [facility] [address] [facility] [id number] [address] [place] [address] Aug, [facility] [address] [facility] [id number] [address] [place] [address] Aug, [facility] [address] [facility] [id number] [address] [place] [address] Aug, Rheumatoid arthritis involvi ng multiple sites with positive rheumatoid factor M05.89 ; Essential hypertension I10 ; Hyperlipidemia, unspecified hyperlipidemia E78.5 ; Chronic constipation K59.00 and Moderate persistent asthma with acute exacerbation J45.41 [place] [address] [address] Aug, Bronchitis J40 [facility] [address] [place] [id number] [place] [address] Aug, Rheumatoid arthritis involvi ng multiple sites with positive rheumatoid factor M05.89 [place] [address] [address] Aug, Pharyngitis, unspecified pablito ology J02.9 and Acute nasopharyngitis J00 [place] [address] [address] Aug, [place] [address] [address] Jul, [place] [address] [address] Jul, Rheumatoid arthritis involvi ng multiple sites with positive rheumatoid factor M05.89 ; Essential hypertension I10 ; Hyperlipidemia, unspecified hyperlipidemia E78.5 ; Rash R21 ; Mild persistent asthma with acute exacerbation J45.31 ; Hematuria R31.9 ; Osteoporosis M81.0 and Gastroesophageal reflux disease, esophagitis presence not specified K21.9 [place] [address] [address] Jun, [place] [address] [address] Jun, Dysuria R30.0 [facility] [address] [place] [id number] [place] [address] Jun, Acute non-recurrent maxillar y sinusitis J01.00 and Dysuria R30.0 [facility] [address] [place] [id number] [address] [place] [address] May, [facility] [address] [place] [id number] [address] [place] [address] May, [facility] [address] [address] Apr, Chronic prescription opiate use Z79.899 and Rheumatoid arthritis involving multiple sites with positive rheumatoid factor M05.89 [place] [address] [address] Mar, [place] [address] [address] Feb, Dizziness of unknown cause R 42 and Other chronic pain G89.[address] [address] Feb, [place] [address] [address] Feb, Shortness of breath R06.02 [place] [address] [address] January, [place] [address] [address] January, Rheumatoid arthritis involvi ng multiple sites with positive rheumatoid factor M05.89 ; Chronic prescription opiate use Z79.899 ; Hyperlipidemia, unspecified hyperlipidemia E78.5 ; Cough R05 ; Exposure to pneumonia Z20.828 ; Diarrhea, unspecified type R19.7 ; Weight loss R63.4 ; Lumbago with sciatica, right side M54.41 and Lumbago with sciatica, left side M54.42 [place] [address] [place] [id number] [address] [place] [address] Dec, [place] [address] [address] Dec, Bronchitis J40 [place] [address] [place] [id number] [address] [place] [address] Nov, [place] [address] [facility] [id number] [address] [place] [id number] Nov, [facility] [address] [id number] [address] [place] [address] Nov, [facility] [address] [facility] [id number] [address] [place] [address] Nov, Bloody diarrhea R19.7 ; [place] n wall thickening K63.9 ; Shortness of breath R06.02 and Bladder wall thickening N32.89 [facility] [address] [id number] [address] [place] [id number] 15 Oct, 2015 Dental examination Z01.20 [facility] [address] [id number] [address] [place] [address] 15 Oct, 2015 [facility] [address] [facility] [id number] [address] [place] [id number] 15 Oct, 2015 Toothache K08.8 [facility] [address] [id number] [address] [place] [id number] 11 Oct, 2015 Dental examination Z01.20 [facility] [address] [facility] [id number] [address] [place] [id number] 02 Oct, 2015 [facility] [address] [facility] [id number] [address] [place] [address] 18 Sep, 2015 [facility] [address] [place] [id number] [address] [place] [id number] 13 Sep, 2015 Burning with urination R30.0 [facility] [address] [id number] [address] [place] [address] 12 Sep, 2015 Hematuria R31.9 ; Rheumatoid arthritis involving multiple sites with positive rheumatoid factor M05.89 and Rheumatoid arthritis flare M06.9 [facility] [address] [facility] [id number] [address] [place] [address] Aug, Hyperlipidemia, unspecified hyperlipidemia E78.5 and Hematuria R31.9 [facility] [address] [facility] [id number] [address] [place] [address] Aug, Hematuria R31.9 ; Chronic ki dney disease, stage 1 N18.1 and Hyperlipidemia, unspecified hyperlipidemia E78.5 [facility] [address] [facility] [id number] [address] [place] [address] Aug, Rheumatoid arthritis involvi ng multiple sites with positive rheumatoid factor M05.89 ; Asthma exacerbation J45.901 ; Hematuria R31.9 ; Hyperlipidemia, unspecified hyperlipidemia E78.5 and Chronic kidney disease, stage 1 N18.1 [facility] [address] [id number] [address] [place] [id number] Aug, [place] [address] [facility] [id number] [address] [place] [address] Jul, [place] [address] [place] [id number] [address] [place] [address] Jul, Lumbosacral radiculopathy M5 4.17 [place] [address] [facility] [id number] [address] [place] [address] Jul, [place] [address] [facility] [id number] [address] [place] [address] Jun, Rheumatoid arthritis involvi ng multiple sites with positive rheumatoid factor M05.89 ; Hyperlipidemia, unspecified hyperlipidemia E78.5 ; Lumbosacral radiculopathy M54.17 ; Carpal tunnel syndrome, right upper limb G56.01 and Carpal tunnel syndrome, left upper limb G56.02 [place] [address] [facility] [id number] [address] [place] [address] Jun, [facility] [address] [facility] [id number] [address] [place] [id number] 17 May, 2015 Lumbar radicular pain 724.4 and Dysuria 788.1 [facility] [address] [facility] [id number] [address] [place] [address] 08 May, 2015 Rheumatoid arthritis 714.0 ; Lumbar radicular pain 724.4 ; Burn 949.0 and Thoracic back pain 724.1 [facility] [address] [id number] [address] [place] [address] May, [facility] [address] [id number] [address] [place] [phone] May, [facility] [address] [facility] [id number] [address] [place] [address] Apr, [facility] [address] [id number] [address] [place] [address] Mar, Hyperlipidemia 272.4 [facility] [address] [id number] [address] [place] [id number] Mar, [facility] [address] [facility] [id number] [address] [place] [id number] Mar, [facility] [address] [facility] [id number] [address] [place] [address] Mar, Diarrhea 787.91 ; Chronic ki dney disease, unspecified 585.9 ; Hyperlipidemia 272.4 and Asthma 493.90 [facility] [address] [facility] [id number] [address] [place] [id number] Mar, [facility] [address] [facility] [id number] [address] [place] [address] Mar, Gastroenteritis 558.9 [facility] [address] [facility] [id number] [address] [place] [phone] Feb, [facility] [address] [id number] [address] [place] [phone] January, [facility] [address] [id number] [address] [place] [id number] January, [facility] [address] [facility] [id number] [address] [place] [phone] Dec, [facility] [address] [facility] [id number] [address] [place] [phone] Dec, [facility] [address] [id number] [address] [place] [address], [place] [address] 20 Nov, 2014 [facility] [address] [id number] [address] [place] [address], [place] [address] 20 Nov, 2014 [facility] [address] [id number] [address] [place] [address], [place] [address] 19 Nov, 2014 [facility] [address] [id number] [address] [place] [address], [place] [address] 19 Nov, 2014 [facility] [address] [id number] [address] [place] [address], [place] [address] Nov, [facility] [address] [id number] [address] [place] [address], [place] [address] Nov, [facility] [address] [id number] [address] [place] [address], [place] [address] 16 Oct, 2014 [facility] [address] [id number] [address] [place] [address], [place] [address] Oct, [facility] [address] [id number] [address] [place] [address], [place] [address] Sep, [facility] [address] [id number] [address] [place] [address], [place] [address] Sep, [facility] [address] [id number] [address] [place] [address], [place] [address] Sep, [facility] [address] [id number] [address] [place] [address], [place] [address] Sep, [facility] [address] [id number] [address] [place] [address], [place] [address] Sep, [facility] [address] [id number] [address] [place] [address], [place] [address] Sep, [facility] [address] [id number] [address] [place] [address], [place] [address] Aug, [facility] [address] [id number] [address] [place] [address], [place] [address] Aug, [facility] [address] [id number] [address] [place] [address], [place] [address] Aug, [facility] [address] [id number] [address] [place] [address], [place] [address] Aug, [facility] [address] [id number] [address] [place] [address], [place] [address] Jul, [facility] [address] [id number] [address] [place] [address], [place] [address] Jul, [facility] [address] [id number] [address] [place] [address], [place] [address] Jul, [facility] [address] [id number] [address] [place] [address], [place] [address] Jul, [facility] [address] [id number] [address] [place] [address], [place] [address] Jul, [facility] [address] [id number] [address] [place] [address], [place] [address] Jul, [facility] [address] [id number] [address] [place] [address], [place] [address] Jul, [facility] [address] [id number] [address] [place] [address], [place] [address] Jul, [facility] [address] [id number] [address] [place] [address], [place] [address] Jul, [facility] [address] [id number] [address] [place] [id number] Jun, [facility] [address] [id number] [address] [place] [address], [place] [address] Jun, [facility] [address] [id number] [address] [place] [address], [place] [address] Jun, [facility] [address] [id number] [address] [place] [address], [place] [address] May, [facility] [address] [id number] [address] [place] [address], [place] [address] 25 Sep, 2013 [facility] [address] [id number] [facility] [place] [address] 24 Sep, 2013 [facility] [address] [id number] [address] [place] [address], [place] [address] 24 Sep, 2013 [facility] [address] [id number] [address] [place] [address], [place] [address] 24 Sep, 2013 [facility] [address] [id number] [address] [place] [address], [place] [address] 24 Sep, 2013 [facility] [address] [id number] [address] [place] [address], [place] [address] 19 Sep, 2013 [facility] [address] [id number] [address] [place] [address], [place] [address] 19 Sep, 2013 [facility] [address] [id number] [address] [place] [address], [place] [address] 11 May, 2013 [facility] [address] [id number] [address] [place] [address], [place] [address] 11 Sep, 2013 [facility] [address] [id number] [address] [place] [address], [place] [address] 11 May, 2013 [facility] [address] [id number] [address] [place] [address], [place] [address] 11 May, 2013 [facility] [address] [id number] [address] [place] [address], [place] [address] 10 May, 2013 [facility] [address] [id number] [address] [place] [address], [place] [address] 09 Sep, 2013 [facility] [address] [id number] [address] [place] [address], [place] [address] 09 Sep, 2013 [facility] [address] [id number] [address] [place] [address], [place] [address] 08 May, 2013 [facility] [address] [id number] [address] [place] [address], [place] [address] 22 Apr, 2014 [facility] [address] [facility] [id number] [address] [place] [id number] Apr, [facility] [address] [facility] [id number] [address] [place] [id number] Aug, [facility] [address] [facility] [id number] [address] [place] [id number] Jul, IMMUNIZATIONS No Known Immunizations SOCIAL HISTORY Never Assessed REASON FOR VISIT Controlled Medication Refill PLAN OF CARE VITAL SIGNS MEDICATIONS Medication Instructions Dosage Frequency Start Date End Date Duration S farooq OxyContin 15 mg Orally every 12 hrs 1 tablet 12h Mar, 28 days Active RESULTS No Results PROCEDURES [...]
--- OUTSIDE RECORDS SUMMARY | 2020-02-27 15:46 | XMS REPORT ---
Author Author Beba CORBIN [facility] Address [address] [place] [address] Care Team Providers Care Venipuncturist Name Role Phone EMERALD EDWARD Unavailable PROBLEMS Type Condition ICD9-CM Code IBZ32-MU Code Onset Dates Condition S tatus SNOMED Code Problem Osteoporosis M81.0 Active 2790999 6 Problem Chronic pain syndrome G89.4 Active 658477133 Problem Moderate persistent asthma with acute exacerbation J45.41 Active 055569722606004 Problem Lumbago with sciatica, right side M54.41 Active 298526788829493 Problem Chronic constipation K59.00 Active 351217060 Problem Lumbago with sciatica, left side M54.42 Active 051140272 Problem Chronic kidney disease, stage 1 N18.1 Active 391085052 Problem Severe episode of recurrent major depressive disorder, without psychotic features F33.2 Active 59681810 Problem Asthma exacerbation J45.901 Active 802648998 Problem Moderate persistent asthma without complication J4 5.40 Active 924689033 Problem Generalized anxiety disorder F41.1 A ctive 92316848 Problem Pernicious anemia D51.0 Active 84 534982 Problem Hyperlipidemia, unspecified hyperlipidemia E78.5 Active 03777474 Problem Essential hypertension I10 Active 60176120 Problem Vitamin D deficiency E55.9 Active 09453327 Problem Chronic prescription opiate use Z79.899 Active 349744032 Problem Colon wall thickening K63.9 Active 087766422 Problem Rheumatoid arthritis involvi ng multiple sites with positive rheumatoid factor M05.89 Active 354448723 Problem Bladder wall thickening N32.89 Active 857860789 Problem Atrophy of left kidney N26.1 Active 842842685 Problem Gastroesophageal reflux disease, esophagitis pre sence not specified K21.9 Active [id number] ALLERGIES No Information ENCOUNTERS Encounter Location Date Diagnosis [facility] [address] [facility] [id number] [address] [place] [address] May, Chronic pain syndrome G89.4 [facility] [address] [id number] [address] [place] [id number] 14 May, 2018 [facility] [address] [id number] [address] [place] [id number] 13 May, 2018 [facility] [address] [id number] [address] [place] [id number] May, Moderate persistent asthma w ith acute exacerbation J45.41 [facility] [address] [id number] [address] [place] [id number] May, Moderate persistent asthma w ith acute exacerbation J45.41 and Hypoxia R09.02 [facility] [address] [id number] [address] [place] [id number] Apr, Chronic pain syndrome G89.4 [facility] [address] [id number] [address] [place] [id number] Mar, High ankle sprain of right l ower extremity, subsequent encounter S93.431D ; Lumbago with sciatica, left side M54.42 and Lumbago with sciatica, right side M54.41 [facility] [address] [id number] [address] [place] [id number] Mar, [facility] [address] [id number] [address] [place] [id number] Mar, Chronic pain syndrome G89.4 [facility] [address] [id number] [address] [place] [id number] Mar, [facility] [address] [id number] [address] [place] [id number] Mar, Asthma exacerbation J45.901 and Sprain of right ankle, unspecified ligament, subsequent encounter S93.401D [facility] [address] [id number] [address] [place] [id number] Feb, Injury of right ankle, initi al encounter S99.911A [facility] [id number] [place] [id number] 22 Feb, 2018 Chronic pain syndrome G89.4 [place] [address] [address] 15 Feb, 2018 Chronic pain syndrome G89.4 [place] [address] [address] 15 Feb, 2018 Moderate persistent asthma w ith acute exacerbation J45.41 and Persistent cough for 3 weeks or longer R05 [place] [address] [address] January, [address] [address] 24 Jan, 2018 Moderate persistent asthma w ith acute exacerbation J45.[address] [address] January, Chronic pain syndrome G89.4 [place] [address] [address] 14 Jan, 2018 Tachycardia R00.0 and Modera te persistent asthma with acute exacerbation J45.[address] [address] 11 Jan, 2018 Tachycardia R00.0 ; Moderate persistent asthma with acute exacerbation J45.41 ; Gastroesophageal reflux disease, esophagitis presence not specified K21.9 ; Hyperlipidemia, unspecified hyperlipidemia E78.5 and Chronic pain syndrome G89.4 [place] [address] [place] [id number] [address] [place] [id number] Dec, Medicare annual wellness vis it, initial [...] immunization Z23 and Chronic pain syndrome G89.4 [facility] [address] [facility] [id number] [address] [place] [id number] Dec, Chronic pain syndrome G89.4 [facility] [address] [facility] [id number] [address] [place] [id number] Dec, [facility] [address] [facility] [id number] [address] [place] [id number] Nov, [facility] [address] [facility] [id number] [address] [place] [id number] Nov, Chronic pain syndrome G89.4 [facility] [address] [facility] [id number] [address] [place] [id number] Oct, Chronic pain syndrome G89.4 [place] [address] [facility] [id number] [address] [place] [id number] 08 Oct, 2017 Chronic kidney disease, stag e 1 N18.1 [facility] [address] [facility] [id number] [address] [place] [id number] 07 Oct, 2017 Chronic prescription opiate use Z79.899 ; Cough R05 ; Asthma exacerbation J45.901 ; Elevated liver enzymes R74.8 ; Rheumatoid arthritis involving multiple sites with positive rheumatoid factor M05.89 and Chronic pain syndrome G89.4 [facility] [address] [facility] [id number] [address] [place] [id number] Sep, Chronic pain syndrome G89.4 [facility] [address] [facility] [id number] [address] [place] [id number] Sep, [facility] [address] [facility] [id number] [address] [place] [id number] Aug, Acute bronchitis, unspecifie d organism J20.9 [facility] [address] [facility] [id number] [address] [place] [id number] Aug, Chronic pain syndrome G89.4 [facility] [address] [facility] [id number] [address] [place] [id number] Jul, Chronic pain syndrome G89.4 [facility] [address] [facility] [id number] [address] [place] [id number] Jun, Chronic pain syndrome G89.4 [facility] [address] [place] [id number] [address] [place] [id number] 29 May, 2017 Rheumatoid arthritis involvi ng multiple sites with positive rheumatoid factor M05.89 [facility] [address] [address] May, Gastroesophageal reflux dise ase, esophagitis presence not specified K21.9 and Chronic pain syndrome G89.4 [facility] [address] [address] May, [place] [address] [address] May, Esophageal candidiasis B37.8 1 and Chronic kidney disease, stage 1 N18.1 [facility] [address] [address] May, Chronic kidney disease, stag e 1 N18.1 [place] [address] [address] 05 May, 2017 Cough R05 ; Fever, unspecifi ed fever cause R50.9 ; Rheumatoid arthritis involving multiple sites with positive rheumatoid factor M05.89 and Chronic prescription opiate use Z79.899 [place] [address] [address] Apr, [facility] [address] [address] Apr, Cough R05 [place] [address] [address] Apr, Asthma exacerbation J45.901 [place] [address] [address] Apr, [facility] [address] [facility] [id number] [address] [place] [id number] Apr, Generalized anxiety disorder F41.1 and Severe episode of recurrent major depressive disorder, without psychotic features F33.2 [facility] [address] [facility] [id number] [address] [place] [id number] Mar, [facility] [address] [facility] [id number] [address] [place] [id number] Feb, Chronic pain syndrome G89.4 [facility] [address] [facility] [id number] [address] [place] [id number] Feb, Acute non-recurrent maxillar y sinusitis J01.00 [place] [address] [facility] [id number] [address] [place] [id number] Feb, Acute non-recurrent frontal sinusitis J01.10 [place] [address] [facility] [id number] [address] [place] [address] Feb, Chronic pain syndrome G89.4 [place] [address] [facility] [id number] [address] [place] [address] January, Acute cystitis with hematuri a N30.01 [place] [address] [facility] [id number] [address] [place] [address] January, Acute cystitis with hematuri a N30.01 ; Dysuria R30.0 and Moderate persistent asthma with acute exacerbation J45.41 [place] [address] [facility] [id number] [address] [place] [address] January, [place] [address] [facility] [id number] [address] [place] [id number] January, Chronic pain syndrome G89.4 [place] [address] [facility] [id number] [address] [place] [address] January, Asthma exacerbation J45.901 [place] [address] [place] [id number] [address] [place] [address] January, Asthma exacerbation J45.901 [place] [address] [place] [id number] [address] [place] [address] Dec, Cough R05 ; Numbness in both hands R20.0 ; Ground glass opacity present on imaging of lung R91.8 ; Hypoxia R09.02 and Asthma exacerbation J45.901 [place] [address] [place] [id number] [address] [place] [id number] Dec, Chronic pain syndrome G89.4 [place] [address] [place] [id number] [address] [place] [address] Nov, Chronic prescription opiate use Z79.899 ; Rheumatoid arthritis involving multiple sites with positive rheumatoid factor M05.89 ; Moderate persistent asthma with acute exacerbation J45.41 ; Pneumonia of right lower lobe due to infectious organism J18.1 ; Chronic pain syndrome G89.4 ; Gastroesophageal reflux disease, esophagitis presence not specified K21.9 and Hyperlipidemia, unspecified hyperlipidemia E78.5 [place] [address] [place] [id number] [address] [place] [address] Nov, Rheumatoid arthritis involvi ng multiple sites with positive rheumatoid factor M05.89 [place] [address] [place] [id number] [address] [place] [address] Oct, [place] [address] [place] [id number] [address] [place] [address] Oct, Essential hypertension I10 [place] [address] [place] [id number] [address] [place] [address] Sep, Hypoxia R09.02 and Ground gl ass opacity present on imaging of lung R91.8 [place] [address] [place] [id number] [address] [place] [id number] Sep, Moderate persistent asthma w ith acute exacerbation J45.41 [facility] [address] [place] [id number] [place] [id number] Sep, [place] [address] [place] [id number] [address] [place] [id number] Sep, Chronic constipation K59.00 and Moderate persistent asthma with acute exacerbation J45.41 [facility] [address] [id number] [address] [place] [id number] Sep, Moderate persistent asthma w ith acute exacerbation J45.41 [facility] [address] [id number] [address] [place] [id number] Aug, [facility] [address] [id number] [address] [place] [id number] Aug, [facility] [address] [id number] [address] [place] [id number] Aug, [facility] [address] [id number] [address] [place] [id number] Aug, Rheumatoid arthritis involvi ng multiple sites with positive rheumatoid factor M05.89 ; Essential hypertension I10 ; Hyperlipidemia, unspecified hyperlipidemia E78.5 ; Chronic constipation K59.00 and Moderate persistent asthma with acute exacerbation J45.41 [facility] [address] [id number] [address] [place] [id number] Aug, Bronchitis J40 [facility] [address] [id number] [address] [place] [id number] Aug, Rheumatoid arthritis involvi ng multiple sites with positive rheumatoid factor M05.89 [facility] [address] [id number] [address] [place] [id number] Aug, Pharyngitis, unspecified pablito ology J02.9 and Acute nasopharyngitis J00 [facility] [address] [id number] [address] [place] [id number] Aug, [facility] [address] [id number] [address] [place] [id number] Jul, [facility] [address] [id number] [address] [place] [id number] Jul, Rheumatoid arthritis involvi ng multiple sites with positive rheumatoid factor M05.89 ; Essential hypertension I10 ; Hyperlipidemia, unspecified hyperlipidemia E78.5 ; Rash R21 ; Mild persistent asthma with acute exacerbation J45.31 ; Hematuria R31.9 ; Osteoporosis M81.0 and Gastroesophageal reflux disease, esophagitis presence not specified K21.9 [facility] [address] [facility] [id number] [address] [place] [id number] 18 Jun, 2016 [facility] [address] [place] [id number] [address] [place] [id number] 10 Jun, 2016 Dysuria R30.0 [facility] [address] [facility] [id number] [address] [place] [id number] 05 Jun, 2016 Acute non-recurrent maxillar y sinusitis J01.00 and Dysuria R30.0 [facility] [address] [place] [id number] [address] [place] [id number] 16 May, 2016 [facility] [address] [address] May, [facility] [address] [address] Apr, Chronic prescription opiate use Z79.899 and Rheumatoid arthritis involving multiple sites with positive rheumatoid factor M05.89 [facility] [address] [address] Mar, [facility] [address] [place] [id number] [place] [id number] Feb, Dizziness of unknown cause R 42 and Other chronic pain G89.29 [facility] [address] [place] [id number] [address] [place] [id number] Feb, [facility] [address] [facility] [id number] [address] [place] [address] Feb, Shortness of breath R06.02 [facility] [address] [place] [id number] [address] [place] [id number] January, [facility] [address] [place] [id number] [address] [place] [address] 25 May, 2016 Rheumatoid arthritis involvi ng multiple sites with positive rheumatoid factor M05.89 ; Chronic prescription opiate use Z79.899 ; Hyperlipidemia, unspecified hyperlipidemia E78.5 ; Cough R05 ; Exposure to pneumonia Z20.828 ; Diarrhea, unspecified type R19.7 ; Weight loss R63.4 ; Lumbago with sciatica, right side M54.41 and Lumbago with sciatica, left side M54.42 [facility] [address] [address] Dec, [facility] [address] [place] [id number] [place] [address] Dec, Bronchitis J40 [facility] [address] [address] Nov, [facility] [address] [address] Nov, [facility] [address] [address] Nov, [facility] [address] [address] Nov, Bloody diarrhea R19.7 ; Convent n wall thickening K63.9 ; Shortness of breath R06.02 and Bladder wall thickening N32.89 [facility] [id number] [place] [id number] Oct, Dental examination Z01.20 [facility] [address] [place] [id number] [address] [place] [id number] Oct, [facility] [address] [place] [id number] [place] [address] Oct, Toothache K08.8 [facility] [address] [id number] Oct, Dental examination Z01.20 [facility] [address] [place] [id number] [place] [id number] Oct, [facility] [address] [id number] [address] [place] [phone] Sep, [facility] [address] [id number] [address] [place] [id number] Sep, Burning with urination R30.0 [facility] [address] [id number] [address] [place] [address] Sep, Hematuria R31.9 ; Rheumatoid arthritis involving multiple sites with positive rheumatoid factor M05.89 and Rheumatoid arthritis flare M06.9 [place] [address] [id number] [address] [place] [id number] Aug, Hyperlipidemia, unspecified hyperlipidemia E78.5 and Hematuria R31.9 [facility] [address] [id number] [address] [place] [id number] Aug, Hematuria R31.9 ; Chronic ki dney disease, stage 1 N18.1 and Hyperlipidemia, unspecified hyperlipidemia E78.5 [place] [address] [id number] [address] [place] [address] Aug, Rheumatoid arthritis involvi ng multiple sites with positive rheumatoid factor M05.89 ; Asthma exacerbation J45.901 ; Hematuria R31.9 ; Hyperlipidemia, unspecified hyperlipidemia E78.5 and Chronic kidney disease, stage 1 N18.1 [place] [address] [facility] [id number] [address] [place] [id number] Aug, [place] [address] [id number] [address] [place] [id number] Jul, [place] [address] [id number] [address] [place] [id number] Jul, Lumbosacral radiculopathy M5 4.17 [facility] [address] [id number] [address] [place] [id number] Jul, [facility] [address] [facility] [id number] [address] [place] [id number] Jun, Rheumatoid arthritis involvi ng multiple sites with positive rheumatoid factor M05.89 ; Hyperlipidemia, unspecified hyperlipidemia E78.5 ; Lumbosacral radiculopathy M54.17 ; Carpal tunnel syndrome, right upper limb G56.01 and Carpal tunnel syndrome, left upper limb G56.02 [facility] [address] [id number] [address] [place] [id number] Jun, [facility] [address] [id number] [address] [place] [phone] May, Lumbar radicular pain 724.4 and Dysuria 788.1 [facility] [address] [id number] [address] [place] [address] May, Rheumatoid arthritis 714.0 ; Lumbar radicular pain 724.4 ; Burn 949.0 and Thoracic back pain 724.1 [facility] [address] [facility] [id number] [address] [place] [id number] May, [facility] [address] [id number] [address] [place] [address] May, [facility] [address] [id number] [address] [place] [id number] Apr, [facility] [address] [facility] [id number] [address] [place] [id number] Mar, Hyperlipidemia 272.4 [facility] [address] [facility] [id number] [address] [place] [id number] Mar, [facility] [address] [facility] [id number] [address] [place] [id number] Mar, [facility] [address] [facility] [id number] [address] [place] [id number] Mar, Diarrhea 787.91 ; Chronic ki dney disease, unspecified 585.9 ; Hyperlipidemia 272.4 and Asthma 493.90 [facility] [address] [facility] [id number] [address] [place] [id number] Mar, [facility] [address] [id number] [address] [place] [address], [place] [address] Mar, Gastroenteritis 558.9 [facility] [address] [id number] [address] [place] [address], [place] [address] Feb, [facility] [address] [id number] [address] [place] [address], [place] [address] January, [facility] [address] [id number] [address] [place] [address], [place] [address] January, [facility] [address] [id number] [address] [place] [address], [place] [address] Dec, [facility] [address] [id number] [address] [place] [address], [place] [address] Dec, [facility] [address] [id number] [address] [place] [address], [place] [address] Nov, [facility] [address] [id number] [address] [place] [address], [place] [address] Nov, [facility] [address] [id number] [address] [place] [address], [place] [address] Nov, [facility] [address] [id number] [address] [place] [address], [place] [id number] Nov, [facility] [address] [id number] [address] [place] [address], [place] [address] Nov, [facility] [address] [id number] [address] [place] [address], [place] [address] Nov, [facility] [address] [id number] [address] [place] [address], [place] [id number] Oct, [facility] [address] [id number] [address] [place] [address], [place] [address] Oct, [facility] [address] [id number] [address] [place] [id number] Sep, [facility] [address] [id number] [address] [place] [id number] Sep, [facility] [address] [id number] [address] [place] [address], [place] [address] Sep, [facility] [address] [id number] [address] [place] [address], [place] [address] Sep, [facility] [address] [id number] [address] [place] [address], [place] [address] Sep, [facility] [address] [id number] [address] [place] [address], [place] [address] Sep, [facility] [address] [id number] [address] [place] [address], [place] [address] Aug, [facility] [address] [id number] [address] [place] [address], [place] [address] Aug, [facility] [address] [id number] [address] [place] [address], [place] [address] Aug, [facility] [address] [id number] [address] [place] [address], [place] [address] Aug, [facility] [address] [id number] [address] [place] [address], [place] [address] Jul, [facility] [address] [id number] [address] [place] [address], [place] [address] Jul, [facility] [address] [id number] [address] [place] [address], [place] [address] Jul, [facility] [address] [id number] [address] [place] [address], [place] [address] Jul, [facility] [address] [id number] [address] [place] [address], [place] [address] Jul, [facility] [address] [id number] [address] [place] [address], [place] [address] Jul, [facility] [address] [id number] [address] [place] [address], [place] [address] Jul, [facility] [address] [id number] [address] [place] [address], [place] [address] 05 Jul, 2014 [facility] [address] [id number] [address] [place] [address], [place] [address] 05 Jul, 2014 [facility] [address] [id number] [address] [place] [address], [place] [address] 31 Jun, 2014 [facility] [address] [id number] [address] [place] [address], [place] [address] 15 Jun, 2014 [facility] [address] [id number] [address] [place] [address], [place] [address] 15 Jun, 2014 [facility] [address] [id number] [address] [place] [address], [place] [address] 25 May, 2014 [facility] [address] [id number] [address] [place] [address], [place] [address] 25 May, 2013 [facility] [address] [id number] [address] [place] [address], [place] [address] 24 May, 2013 [facility] [address] [id number] [address] [place] [address], [place] [address] 24 Sep, 2013 [facility] [address] [id number] [address] [place] [address], [place] [address] 24 May, 2013 [facility] [address] [id number] [address] [place] [address], [place] [address] 24 Sep, 2013 [facility] [address] [id number] [address] [place] [address], [place] [address] 19 May, 2013 [facility] [address] [id number] [address] [place] [address], [place] [address] 19 Sep, 2013 [facility] [address] [id number] [address] [place] [address], [place] [address] 11 May, 2013 [facility] [address] [id number] [address] [place] [address], [place] [address] 11 May, 2013 [facility] [address] [id number] [address] [place] [address], [place] [address] May, [facility] [address] [id number] [address] [place] [phone] May, [facility] [address] [id number] [address] [place] [phone] May, [facility] [address] [id number] [address] [place] [phone] May, [facility] [address] [id number] [address] [place] [phone] May, [facility] [address] [id number] [address] [place] [phone] May, [facility] [address] [id number] [address] [place] [phone] Apr, [facility] [address] [id number] [address] [place] [phone] Apr, [facility] [address] [id number] [address] [place] [phone] Aug, [facility] [address] [id number] [address] [place] [phone] Jul, IMMUNIZATIONS No Known Immunizations SOCIAL HISTORY Never Assessed REASON FOR VISIT Controlled Medication Refill PLAN OF CARE VITAL SIGNS MEDICATIONS Medication Instructions Dosage Frequency Start Date End Date Duration S tatus OxyContin 15 mg Orally every 12 hrs 1 tablet 12h Apr, 28 days Active RESULTS No Results PROCEDURES [...]
--- OUTSIDE RECORDS SUMMARY | 2020-02-27 15:46 | XMS REPORT ---
Author Author Beba CORBIN [facility] Address [address] [place] [address] Care Team Providers Care Stakes Player Name Role Phone EMERALD EDWARD Unavailable PROBLEMS Type Condition ICD9-CM Code [id number] Code Onset Dates Condition S tatus SNOMED Code Problem Osteoporosis M81.0 Active 4089021 6 Problem Chronic pain syndrome G89.4 Active 441667700 Problem Moderate persistent asthma with acute exacerbation J45.41 Active 341220471959097 Problem Lumbago with sciatica, right side M54.41 Active 450025306802015 Problem Chronic constipation K59.00 Active 949390284 Problem Lumbago with sciatica, left side M54.42 Active 233615326 Problem Chronic kidney disease, stage 1 N18.1 Active 944559858 Problem Severe episode of recurrent major depressive disorder, without psychotic features F33.2 Active 93262822 Problem Asthma exacerbation J45.901 Active 881166818 Problem Moderate persistent asthma without complication J4 5.40 Active 098032436 Problem Generalized anxiety disorder F41.1 A ctive 44557618 Problem Pernicious anemia D51.0 Active 84 894630 Problem Hyperlipidemia, unspecified hyperlipidemia E78.5 Active 22706928 Problem Essential hypertension I10 Active 96156189 Problem Vitamin D deficiency E55.9 Active 92288784 Problem Chronic prescription opiate use Z79.899 Active 420907100 Problem Colon wall thickening K63.9 Active 133912034 Problem Rheumatoid arthritis involvi ng multiple sites with positive rheumatoid factor M05.89 Active 613060901 Problem Bladder wall thickening N32.89 Active 875110708 Problem Atrophy of left kidney N26.1 Active 368771866 Problem Gastroesophageal reflux disease, esophagitis pre sence not specified K21.9 Active 533694410 ALLERGIES No Information ENCOUNTERS Encounter Location Date Diagnosis [facility] [address] [facility] [id number] [address] [place] [address] Apr, Chronic pain syndrome G89.4 [facility] [address] [id number] [address] [place] [address] Mar, High ankle sprain of right l ower extremity, subsequent encounter S93.431D ; Lumbago with sciatica, left side M54.42 and Lumbago with sciatica, right side M54.41 [facility] [address] [id number] [address] [place] [address] Mar, [facility] [address] [id number] [address] [place] [address] Mar, Chronic pain syndrome G89.4 [facility] [address] [id number] [address] [place] [address] Mar, [facility] [address] [id number] [address] [place] [address] Mar, Asthma exacerbation J45.901 and Sprain of right ankle, unspecified ligament, subsequent encounter S93.401D [facility] [address] [id number] [address] [place] [address] Feb, Injury of right ankle, initi al encounter S99.911A [facility] [address] [id number] [address] [place] [address] Feb, Chronic pain syndrome G89.4 [facility] [address] [id number] [address] [place] [address] Feb, Chronic pain syndrome G89.4 [facility] [address] [id number] [address] [place] [address] Feb, Moderate persistent asthma w ith acute exacerbation J45.41 and Persistent cough for 3 weeks or longer R05 [facility] [address] [id number] [address] [place] [address] January, [facility] [address] [id number] [address] [place] [address] January, Moderate persistent asthma w ith acute exacerbation J45.41 [place] [address] [facility] [id number] [address] [place] [address] 23 Jan, 2018 Chronic pain syndrome G89.4 [place] [address] [facility] [id number] [address] [place] [address] 14 Jan, 2018 Tachycardia R00.0 and Modera te persistent asthma with acute exacerbation J45.41 [place] [address] [place] [id number] [address] [place] [address] 11 Jan, 2018 Tachycardia R00.0 ; Moderate persistent asthma with acute exacerbation J45.41 ; Gastroesophageal reflux disease, esophagitis presence not specified K21.9 ; Hyperlipidemia, unspecified hyperlipidemia E78.5 and Chronic pain syndrome G89.4 [place] [address] [place] [id number] [place] [address] Dec, Medicare annual wellness vis it, initial [...] immunization Z23 and Chronic pain syndrome G89.4 [place] [address] [place] [id number] [address] [place] [address] Dec, Chronic pain syndrome G89.4 [place] [address] [place] [id number] [address] [place] [address] Dec, [place] [address] [facility] [id number] [address] [place] [address] Nov, [place] [address] [place] [id number] [address] [place] [address] Nov, Chronic pain syndrome G89.4 [place] [address] [place] [id number] [address] [place] [address] Oct, Chronic pain syndrome G89.4 [facility] [address] [facility] [id number] [address] [place] [address] 08 Oct, 2017 Chronic kidney disease, stag e 1 N18.1 [place] [address] [facility] [id number] [address] [place] [address] 07 Oct, 2017 Chronic prescription opiate use Z79.899 ; Cough R05 ; Asthma exacerbation J45.901 ; Elevated liver enzymes R74.8 ; Rheumatoid arthritis involving multiple sites with positive rheumatoid factor M05.89 and Chronic pain syndrome G89.4 [place] [address] [facility] [id number] [address] [place] [address] Sep, Chronic pain syndrome G89.4 [place] [address] [place] [id number] [address] [place] [address] Sep, [place] [address] [place] [id number] [address] [place] [address] Aug, Acute bronchitis, unspecifie d organism J20.9 [place] [address] [facility] [id number] [address] [place] [address] Aug, Chronic pain syndrome G89.4 [place] [address] [place] [id number] [address] [place] [address] Jul, Chronic pain syndrome G89.4 [place] [address] [place] [id number] [address] [place] [address] Jun, Chronic pain syndrome G89.4 [place] [address] [place] [id number] [address] [place] [address] May, Rheumatoid arthritis involvi ng multiple sites with positive rheumatoid factor M05.89 [place] [address] [facility] [id number] [address] [place] [address] May, Gastroesophageal reflux dise ase, esophagitis presence not specified K21.9 and Chronic pain syndrome G89.4 [place] [address] [place] [id number] [address] [place] [address] May, [place] [address] [address] 12 May, 2017 Esophageal candidiasis B37.8 1 and Chronic kidney disease, stage 1 N18.1 [place] [address] [address] 11 May, 2017 Chronic kidney disease, stag e 1 N18.1 [place] [address] [address] 05 May, 2017 Cough R05 ; Fever, unspecifi ed fever cause R50.9 ; Rheumatoid arthritis involving multiple sites with positive rheumatoid factor M05.89 and Chronic prescription opiate use Z79.899 [place] [address] [address] Apr, [place] [address] [address] Apr, Cough R05 [place] [address] [address] Apr, Asthma exacerbation J45.901 [place] [address] [address] Apr, [place] [address] [address] Apr, Generalized anxiety disorder F41.1 and Severe episode of recurrent major depressive disorder, without psychotic features F33.2 [place] [address] [address] Mar, [place] [address] [address] Feb, Chronic pain syndrome G89.4 [place] [address] [address] Feb, Acute non-recurrent maxillar y sinusitis J01.00 [place] [address] [address] Feb, Acute non-recurrent frontal sinusitis J01.10 [facility] [address] [facility] [id number] [address] [place] [address] Feb, Chronic pain syndrome G89.4 [facility] [address] [id number] [address] [place] [address] January, Acute cystitis with hematuri a N30.01 [facility] [address] [facility] [id number] [address] [place] [address] January, Acute cystitis with hematuri a N30.01 ; Dysuria R30.0 and Moderate persistent asthma with acute exacerbation J45.41 [place] [address] [facility] [id number] [address] [place] [address] January, [place] [address] [facility] [id number] [address] [place] [address] January, Chronic pain syndrome G89.4 [facility] [address] [facility] [id number] [address] [place] [address] January, Asthma exacerbation J45.901 [facility] [address] [facility] [id number] [address] [place] [address] January, Asthma exacerbation J45.901 [facility] [address] [facility] [id number] [address] [place] [address] Dec, Cough R05 ; Numbness in both hands R20.0 ; Ground glass opacity present on imaging of lung R91.8 ; Hypoxia R09.02 and Asthma exacerbation J45.901 [facility] [address] [facility] [id number] [address] [place] [address] Dec, Chronic pain syndrome G89.4 [facility] [address] [facility] [id number] [address] [place] [address] Nov, Chronic prescription opiate use Z79.899 ; Rheumatoid arthritis involving multiple sites with positive rheumatoid factor M05.89 ; Moderate persistent asthma with acute exacerbation J45.41 ; Pneumonia of right lower lobe due to infectious organism J18.1 ; Chronic pain syndrome G89.4 ; Gastroesophageal reflux disease, esophagitis presence not specified K21.9 and Hyperlipidemia, unspecified hyperlipidemia E78.5 [facility] [address] [facility] [id number] [address] [place] [address] Nov, Rheumatoid arthritis involvi ng multiple sites with positive rheumatoid factor M05.89 [facility] [address] [facility] [id number] [address] [place] [address] Oct, [place] [address] [place] [id number] [address] [place] [address] Oct, Essential hypertension I10 [address] [address] Sep, Hypoxia R09.02 and Ground gl ass opacity present on imaging of lung R91.8 [place] [id number] [address] [place] [address] Sep, Moderate persistent asthma w ith acute exacerbation J45.41 [facility] [id number] [place] [id number] Sep, [place] [address] [facility] [id number] [address] [place] [address] Sep, Chronic constipation K59.00 and Moderate persistent asthma with acute exacerbation J45.41 [facility] [address] [facility] [id number] [address] [place] [address] Sep, Moderate persistent asthma w ith acute exacerbation J45.41 [facility] [address] [facility] [id number] [address] [place] [address] Aug, [facility] [address] [facility] [id number] [address] [place] [address] Aug, [facility] [address] [facility] [id number] [address] [place] [address] Aug, [facility] [address] [facility] [id number] [address] [place] [address] Aug, Rheumatoid arthritis involvi ng multiple sites with positive rheumatoid factor M05.89 ; Essential hypertension I10 ; Hyperlipidemia, unspecified hyperlipidemia E78.5 ; Chronic constipation K59.00 and Moderate persistent asthma with acute exacerbation J45.41 [place] [address] [address] Aug, Bronchitis J40 [facility] [address] [place] [id number] [place] [address] Aug, Rheumatoid arthritis involvi ng multiple sites with positive rheumatoid factor M05.89 [place] [address] [address] Aug, Pharyngitis, unspecified pablito ology J02.9 and Acute nasopharyngitis J00 [place] [address] [address] Aug, [place] [address] [address] Jul, [place] [address] [address] Jul, Rheumatoid arthritis involvi ng multiple sites with positive rheumatoid factor M05.89 ; Essential hypertension I10 ; Hyperlipidemia, unspecified hyperlipidemia E78.5 ; Rash R21 ; Mild persistent asthma with acute exacerbation J45.31 ; Hematuria R31.9 ; Osteoporosis M81.0 and Gastroesophageal reflux disease, esophagitis presence not specified K21.9 [place] [address] [address] Jun, [place] [address] [address] Jun, Dysuria R30.0 [facility] [address] [place] [id number] [place] [address] Jun, Acute non-recurrent maxillar y sinusitis J01.00 and Dysuria R30.0 [facility] [address] [place] [id number] [address] [place] [address] May, [facility] [address] [place] [id number] [address] [place] [address] May, [facility] [address] [address] Apr, Chronic prescription opiate use Z79.899 and Rheumatoid arthritis involving multiple sites with positive rheumatoid factor M05.89 [place] [address] [address] Mar, [place] [address] [address] Feb, Dizziness of unknown cause R 42 and Other chronic pain G89.[address] [address] Feb, [place] [address] [address] Feb, Shortness of breath R06.02 [place] [address] [address] January, [place] [address] [address] January, Rheumatoid arthritis involvi ng multiple sites with positive rheumatoid factor M05.89 ; Chronic prescription opiate use Z79.899 ; Hyperlipidemia, unspecified hyperlipidemia E78.5 ; Cough R05 ; Exposure to pneumonia Z20.828 ; Diarrhea, unspecified type R19.7 ; Weight loss R63.4 ; Lumbago with sciatica, right side M54.41 and Lumbago with sciatica, left side M54.42 [place] [address] [place] [id number] [address] [place] [address] Dec, [place] [address] [address] Dec, Bronchitis J40 [place] [address] [place] [id number] [address] [place] [address] Nov, [place] [address] [facility] [id number] [address] [place] [address] Nov, [facility] [address] [id number] [address] [place] [address] Nov, [facility] [address] [facility] [id number] [address] [place] [address] Nov, Bloody diarrhea R19.7 ; [place] n wall thickening K63.9 ; Shortness of breath R06.02 and Bladder wall thickening N32.89 [facility] [address] [id number] [address] [place] [id number] 15 Oct, 2015 Dental examination Z01.20 [facility] [address] [id number] [address] [place] [address] 15 Oct, 2015 [facility] [address] [facility] [id number] [address] [place] [address] 15 Oct, 2015 Toothache K08.8 [facility] [address] [id number] [address] [place] [address] [id number] 11 Oct, 2015 Dental examination Z01.20 [facility] [address] [facility] [id number] [address] [place] [address] 02 Oct, 2015 [facility] [address] [facility] [id number] [address] [place] [address] 18 Sep, 2015 [facility] [address] [place] [id number] [address] [place] [address] 13 Sep, 2015 Burning with urination R30.0 [facility] [address] [id number] [address] [place] [address] 12 Sep, 2015 Hematuria R31.9 ; Rheumatoid arthritis involving multiple sites with positive rheumatoid factor M05.89 and Rheumatoid arthritis flare M06.9 [facility] [address] [facility] [id number] [address] [place] [address] Aug, Hyperlipidemia, unspecified hyperlipidemia E78.5 and Hematuria R31.9 [facility] [address] [facility] [id number] [address] [place] [address] Aug, Hematuria R31.9 ; Chronic ki dney disease, stage 1 N18.1 and Hyperlipidemia, unspecified hyperlipidemia E78.5 [facility] [address] [facility] [id number] [address] [place] [address] Aug, Rheumatoid arthritis involvi ng multiple sites with positive rheumatoid factor M05.89 ; Asthma exacerbation J45.901 ; Hematuria R31.9 ; Hyperlipidemia, unspecified hyperlipidemia E78.5 and Chronic kidney disease, stage 1 N18.1 [facility] [address] [id number] [address] [place] [address] Aug, [place] [address] [facility] [id number] [address] [place] [address] Jul, [place] [address] [place] [id number] [address] [place] [address] Jul, Lumbosacral radiculopathy M5 4.17 [place] [address] [facility] [id number] [address] [place] [address] Jul, [place] [address] [facility] [id number] [address] [place] [address] Jun, Rheumatoid arthritis involvi ng multiple sites with positive rheumatoid factor M05.89 ; Hyperlipidemia, unspecified hyperlipidemia E78.5 ; Lumbosacral radiculopathy M54.17 ; Carpal tunnel syndrome, right upper limb G56.01 and Carpal tunnel syndrome, left upper limb G56.02 [place] [address] [facility] [id number] [address] [place] [address] Jun, [facility] [address] [facility] [id number] [address] [place] [address] 17 May, 2015 Lumbar radicular pain 724.4 and Dysuria 788.1 [facility] [address] [facility] [id number] [address] [place] [address] 08 May, 2015 Rheumatoid arthritis 714.0 ; Lumbar radicular pain 724.4 ; Burn 949.0 and Thoracic back pain 724.1 [facility] [address] [id number] [address] [place] [address] May, [facility] [address] [id number] [address] [place] [address] May, [facility] [address] [facility] [id number] [address] [place] [address] Apr, [facility] [address] [id number] [address] [place] [address] Mar, Hyperlipidemia 272.4 [facility] [address] [id number] [address] [place] [address] Mar, [facility] [address] [facility] [id number] [address] [place] [address] Mar, [facility] [address] [facility] [id number] [address] [place] [address] Mar, Diarrhea 787.91 ; Chronic ki dney disease, unspecified 585.9 ; Hyperlipidemia 272.4 and Asthma 493.90 [facility] [address] [facility] [id number] [address] [place] [address] Mar, [facility] [address] [facility] [id number] [address] [place] [address] Mar, Gastroenteritis 558.9 [facility] [address] [facility] [id number] [address] [place] [address] Feb, [facility] [address] [id number] [address] [place] [address] January, [facility] [address] [id number] [address] [place] [address] January, [facility] [address] [facility] [id number] [address] [place] [address] Dec, [facility] [address] [facility] [id number] [address] [place] [address] Dec, [facility] [address] [id number] [address] [place] [address], [place] [id number] 20 Nov, 2014 [facility] [address] [id number] [address] [place] [address], [place] [id number] 20 Nov, 2014 [facility] [address] [id number] [address] [place] [address], [place] [id number] 19 Nov, 2014 [facility] [address] [id number] [address] [place] [address], [place] [id number] 19 Nov, 2014 [facility] [address] [id number] [address] [place] [address], [place] [id number] Nov, [facility] [address] [id number] [address] [place] [address], [place] [id number] Nov, [facility] [address] [id number] [address] [place] [address], [place] [id number] 16 Oct, 2014 [facility] [address] [id number] [address] [place] [address], [place] [id number] Oct, [facility] [address] [id number] [address] [place] [address], [place] [id number] Sep, [facility] [address] [id number] [address] [place] [address], [place] [id number] Sep, [facility] [address] [id number] [address] [place] [address], [place] [id number] Sep, [facility] [address] [id number] [address] [place] [address], [place] [id number] Sep, [facility] [address] [id number] [address] [place] [address], [place] [id number] Sep, [facility] [address] [id number] [address] [place] [address], [place] [id number] Sep, [facility] [address] [id number] [address] [place] [address], [place] [id number] Aug, [facility] [address] [id number] [address] [place] [address], [place] [id number] Aug, [facility] [address] [id number] [address] [place] [address], [place] [id number] Aug, [facility] [address] [id number] [address] [place] [address], [place] [id number] Aug, [facility] [address] [id number] [address] [place] [address], [place] [id number] Jul, [facility] [address] [id number] [address] [place] [address], [place] [id number] Jul, [facility] [address] [id number] [address] [place] [address], [place] [id number] Jul, [facility] [address] [id number] [address] [place] [address], [place] [id number] Jul, [facility] [address] [id number] [address] [place] [address], [place] [id number] Jul, [facility] [address] [id number] [address] [place] [address], [place] [id number] Jul, [facility] [address] [id number] [address] [place] [address], [place] [id number] Jul, [facility] [address] [id number] [address] [place] [address], [place] [id number] Jul, [facility] [address] [id number] [address] [place] [address], [place] [id number] Jul, [facility] [address] [id number] [address] [place] [id number] Jun, [facility] [address] [id number] [address] [place] [address], [place] [id number] Jun, [facility] [address] [id number] [address] [place] [address], [place] [id number] Jun, [facility] [facility] [address] [id number] [address] [place] [address], [place] [id number] May, [facility] [address] [id number] [address] [place] [address], [place] [id number] 25 Sep, 2013 [facility] [address] [id number] [address] [place] [id number] 24 Sep, 2013 [facility] [address] [id number] [address] [place] [address], [place] [id number] 24 Sep, 2013 [facility] [address] [id number] [address] [place] [address], [place] [id number] 24 Sep, 2013 [facility] [address] [id number] [address] [place] [address], [place] [id number] 24 Sep, 2013 [facility] [address] [id number] [address] [place] [address], [place] [id number] 19 Sep, 2013 [facility] [address] [id number] [address] [place] [address], [place] [id number] 19 Sep, 2013 [facility] [address] [id number] [address] [place] [address], [place] [id number] 11 May, 2013 [facility] [address] [id number] [address] [place] [address], [place] [id number] 11 Sep, 2013 [facility] [address] [id number] [address] [place] [address], [place] [id number] 11 May, 2013 [facility] [address] [id number] [address] [place] [address], [place] [id number] 11 May, 2013 [facility] [address] [id number] [address] [place] [address], [place] [id number] 10 May, 2013 [facility] [address] [id number] [address] [place] [address], [place] [id number] 09 Sep, 2013 [facility] [address] [id number] [address] [place] [address], [place] [id number] 09 Sep, 2013 [facility] [address] [id number] [address] [place] [address], [place] [id number] 08 May, 2013 [facility] [address] [id number] [address] [place] [address], [place] [id number] 22 Apr, 2014 [facility] [address] [facility] [id number] [address] [place] [id number] Apr, [facility] [address] [facility] [id number] [address] [place] [id number] Aug, [facility] [address] [facility] [id number] [address] [place] [id number] Jul, IMMUNIZATIONS No Known Immunizations SOCIAL HISTORY Never Assessed REASON FOR VISIT BP Reduction Challenge Enroll PLAN OF CARE VITAL SIGNS MEDICATIONS Unknown [...] History section x 2 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
--- OUTSIDE RECORDS SUMMARY | 2020-02-27 15:46 | XMS REPORT ---
Author Author Beba ESTRELLA Organization [facility] Address [address] [place] [address] Care Team Providers Care Playground Worker Name Role Phone ESTRELLARICHARD AllenELE Unavailable PROBLEMS Type Condition ICD9-CM Code [id number] Code Onset Dates Condition S tatus SNOMED Code Problem Osteoporosis M81.0 Active 3456540 6 Problem Chronic pain syndrome G89.4 Active 467496351 Problem Moderate persistent asthma with acute exacerbation J45.41 Active 163924520971281 Problem Lumbago with sciatica, right side M54.41 Active 212790729649555 Problem Chronic constipation K59.00 Active 373509921 Problem Lumbago with sciatica, left side M54.42 Active 877394792 Problem Chronic kidney disease, stage 1 N18.1 Active 809383185 Problem Severe episode of recurrent major depressive disorder, without psychotic features F33.2 Active 04192728 Problem Asthma exacerbation J45.901 Active 257277284 Problem Moderate persistent asthma without complication J4 5.40 Active 140942609 Problem Generalized anxiety disorder F41.1 A ctive 11983860 Problem Pernicious anemia D51.0 Active 84 575383 Problem Hyperlipidemia, unspecified hyperlipidemia E78.5 Active 53717105 Problem Essential hypertension I10 Active 19104527 Problem Vitamin D deficiency E55.9 Active 26159711 Problem Chronic prescription opiate use Z79.899 Active 003007359 Problem Colon wall thickening K63.9 Active 105917309 Problem Rheumatoid arthritis involvi ng multiple sites with positive rheumatoid factor M05.89 Active 493678493 Problem Bladder wall thickening N32.89 Active 302407283 Problem Atrophy of left kidney N26.1 Active 601760987 Problem Gastroesophageal reflux disease, esophagitis pre sence not specified K21.9 Active 820173654 ALLERGIES Substance Reaction Event Type Date Status Penicillin V Potassium Cannot tolerate Oral PCN. St ates she can tolerate injections Drug Allergy Mar, Active Orencia Unknown Drug Allergy Mar, Active Cipro Unknown Drug Allergy Mar, Active Codeine Unknown Drug Allergy Mar, Active Ivp Dye anaphylaxis Non Drug Allergy Mar, Active ENCOUNTERS Encounter Location Date Diagnosis [facility] [address] [id number] [place] [address] May, [facility] [id number] [place] [address] Apr, Chronic pain syndrome G89.4 [facility] [id number] [place] [address] Mar, High ankle sprain of right l ower extremity, subsequent encounter S93.431D ; Lumbago with sciatica, left side M54.42 and Lumbago with sciatica, right side M54.41 [facility] [id number] [place] [address] Mar, [facility] [id number] [place] [address] Mar, Chronic pain syndrome G89.4 [facility] [id number] [place] [address] Mar, [facility] [id number] [place] [address] Mar, Asthma exacerbation J45.901 and Sprain of right ankle, unspecified ligament, subsequent encounter S93.401D [facility] [address] [facility] [id number] [address] [place] [address] Feb, Injury of right ankle, initi al encounter S99.911A [facility] [address] [facility] [id number] [address] [place] [address] Feb, Chronic pain syndrome G89.4 [facility] [id number] [place] [address] Feb, Chronic pain syndrome G89.4 [facility] [id number] [place] [address] Feb, Moderate persistent asthma w ith acute exacerbation J45.41 and Persistent cough for 3 weeks or longer R05 [place] [address] [facility] [id number] [address] [place] [address] January, [place] [address] [facility] [id number] [address] [place] [address] January, Moderate persistent asthma w ith acute exacerbation J45.41 [place] [address] [facility] [id number] [address] [place] [address] January, Chronic pain syndrome G89.4 [place] [address] [id number] [place] [address] January, Tachycardia R00.0 and Modera te persistent asthma with acute exacerbation J45.41 [place] [address] [address] January, Tachycardia R00.0 ; Moderate persistent asthma with acute exacerbation J45.41 ; Gastroesophageal reflux disease, esophagitis presence not specified K21.9 ; Hyperlipidemia, unspecified hyperlipidemia E78.5 and Chronic pain syndrome G89.4 [place] [address] [address] Dec, Medicare annual wellness vis it, initial [...] immunization Z23 and Chronic pain syndrome G89.4 [place] [address] [place] [id number] [place] [address] Dec, Chronic pain syndrome G89.4 [place] [address] [place] [address] Dec, [place] [address] [place] [id number] [address] [place] [address] Nov, [facility] [address] [facility] [id number] [address] [place] [address] Nov, Chronic pain syndrome G89.4 [facility] [id number] [place] [address] Oct, Chronic pain syndrome G89.4 [facility] [id number] [place] [address] Oct, Chronic kidney disease, stag e 1 N18.1 [place] [address] [address] Oct, Chronic prescription opiate use Z79.899 ; Cough R05 ; Asthma exacerbation J45.901 ; Elevated liver enzymes R74.8 ; Rheumatoid arthritis involving multiple sites with positive rheumatoid factor M05.89 and Chronic pain syndrome G89.4 [facility] [id number] [place] [address] Sep, Chronic pain syndrome G89.4 [facility] [id number] [place] [address] Sep, [facility] [id number] [place] [address] Aug, Acute bronchitis, unspecifie d organism J20.9 [facility] [id number] [place] [address] Aug, Chronic pain syndrome G89.4 [facility] [id number] [place] [address] Jul, Chronic pain syndrome G89.4 [facility] [id number] [place] [address] Jun, Chronic pain syndrome G89.4 [facility] [id number] [place] [address] May, Rheumatoid arthritis involvi ng multiple sites with positive rheumatoid factor M05.89 [facility] [address] [id number] [address] [place] [address] May, Gastroesophageal reflux dise ase, esophagitis presence not specified K21.9 and Chronic pain syndrome G89.4 [facility] [address] [id number] [address] [place] [address] May, [place] [address] [facility] [id number] [address] [place] [address] May, Esophageal candidiasis B37.8 1 and Chronic kidney disease, stage 1 N18.1 [place] [address] [id number] [address] [place] [address] May, Chronic kidney disease, stag e 1 N18.1 [place] [address] [id number] [place] [address] May, Cough R05 ; Fever, unspecifi ed fever cause R50.9 ; Rheumatoid arthritis involving multiple sites with positive rheumatoid factor M05.89 and Chronic prescription opiate use Z79.899 [place] [address] [facility] [id number] [address] [place] [address] Apr, [place] [address] [facility] [id number] [address] [place] [address] Apr, Cough R05 [place] [address] [facility] [id number] [address] [place] [address] Apr, Asthma exacerbation J45.901 [place] [address] [facility] [id number] [address] [place] [address] Apr, [place] [address] [facility] [id number] [address] [place] [address] Apr, Generalized anxiety disorder F41.1 and Severe episode of recurrent major depressive disorder, without psychotic features F33.2 [place] [address] [place] [id number] [place] [address] Mar, [place] [address] [id number] [place] [address] Feb, Chronic pain syndrome G89.4 [facility] [address] [facility] [id number] [address] [place] [address] Feb, Acute non-recurrent maxillar y sinusitis J01.00 [facility] [address] [facility] [id number] [address] [place] [address] Feb, Acute non-recurrent frontal sinusitis J01.10 [facility] [address] [facility] [id number] [address] [place] [address] Feb, Chronic pain syndrome G89.4 [place] [address] [facility] [id number] [address] [place] [address] January, Acute cystitis with hematuri a N30.01 [place] [address] [facility] [id number] [address] [place] [address] January, Acute cystitis with hematuri a N30.01 ; Dysuria R30.0 and Moderate persistent asthma with acute exacerbation J45.41 [place] [address] [place] [id number] [place] [address] January, [place] [address] [id number] [place] [address] January, Chronic pain syndrome G89.4 [place] [address] [facility] [id number] [address] [place] [address] January, Asthma exacerbation J45.901 [place] [address] [id number] [place] [address] January, Asthma exacerbation J45.901 [place] [address] [place] [id number] [place] [address] Dec, Cough R05 ; Numbness in both hands R20.0 ; Ground glass opacity present on imaging of lung R91.8 ; Hypoxia R09.02 and Asthma exacerbation J45.901 [place] [address] [id number] [place] [address] Dec, Chronic pain syndrome G89.4 [place] [address] [place] [id number] [place] [address] Nov, Chronic prescription opiate use Z79.899 ; Rheumatoid arthritis involving multiple sites with positive rheumatoid factor M05.89 ; Moderate persistent asthma with acute exacerbation J45.41 ; Pneumonia of right lower lobe due to infectious organism J18.1 ; Chronic pain syndrome G89.4 ; Gastroesophageal reflux disease, esophagitis presence not specified K21.9 and Hyperlipidemia, unspecified hyperlipidemia E78.5 [place] [address] [place] [address] Nov, Rheumatoid arthritis involvi ng multiple sites with positive rheumatoid factor M05.89 [place] [address] [place] [id number] [place] [address] Oct, [address] [address] Oct, Essential hypertension I10 [place] [address] [place] [id number] [place] [address] Sep, Hypoxia R09.02 and Ground gl ass opacity present on imaging of lung R91.8 [place] [address] [place] [id number] [place] [address] Sep, Moderate persistent asthma w ith acute exacerbation J45.41 [facility] [address] [place] [id number] [place] [id number] Sep, [place] [address] [place] [id number] [place] [address] Sep, Chronic constipation K59.00 and Moderate persistent asthma with acute exacerbation J45.41 [place] [address] [place] [id number] [place] [address] Sep, Moderate persistent asthma w ith acute exacerbation J45.41 [place] [address] [place] [id number] [place] [address] Aug, [place] [address] [id number] [address] [place] [address] Aug, [facility] [address] [facility] [id number] [address] [place] [address] Aug, [facility] [address] [facility] [id number] [address] [place] [address] Aug, Rheumatoid arthritis involvi ng multiple sites with positive rheumatoid factor M05.89 ; Essential hypertension I10 ; Hyperlipidemia, unspecified hyperlipidemia E78.5 ; Chronic constipation K59.00 and Moderate persistent asthma with acute exacerbation J45.41 [place] [address] [facility] [id number] [address] [place] [address] Aug, Bronchitis J40 [place] [address] [facility] [id number] [address] [place] [address] Aug, Rheumatoid arthritis involvi ng multiple sites with positive rheumatoid factor M05.89 [place] [address] [facility] [id number] [address] [place] [address] Aug, Pharyngitis, unspecified pablito ology J02.9 and Acute nasopharyngitis J00 [place] [address] [facility] [id number] [address] [place] [address] Aug, [place] [address] [facility] [id number] [address] [place] [address] Jul, [place] [address] [facility] [id number] [address] [place] [address] Jul, Rheumatoid arthritis involvi ng multiple sites with positive rheumatoid factor M05.89 ; Essential hypertension I10 ; Hyperlipidemia, unspecified hyperlipidemia E78.5 ; Rash R21 ; Mild persistent asthma with acute exacerbation J45.31 ; Hematuria R31.9 ; Osteoporosis M81.0 and Gastroesophageal reflux disease, esophagitis presence not specified K21.9 [facility] [address] [facility] [id number] [address] [place] [address] Jun, [facility] [address] [facility] [id number] [address] [place] [address] Jun, Dysuria R30.0 [facility] [address] [facility] [id number] [address] [place] [address] Jun, Acute non-recurrent maxillar y sinusitis J01.00 and Dysuria R30.0 [facility] [address] [facility] [id number] [address] [place] [address] 16 May, 2016 [facility] [address] [facility] [id number] [address] [place] [address] May, [facility] [address] [facility] [id number] [address] [place] [address] Apr, Chronic prescription opiate use Z79.899 and Rheumatoid arthritis involving multiple sites with positive rheumatoid factor M05.89 [facility] [address] [id number] [place] [address] Mar, [facility] [address] [facility] [id number] [address] [place] [address] Feb, Dizziness of unknown cause R 42 and Other chronic pain G89.29 [place] [address] [facility] [id number] [address] [place] [address] Feb, [facility] [address] [facility] [id number] [address] [place] [address] Feb, Shortness of breath R06.02 [place] [address] [place] [id number] [place] [address] January, [place] [address] [facility] [id number] [address] [place] [address] January, Rheumatoid arthritis involvi ng multiple sites with positive rheumatoid factor M05.89 ; Chronic prescription opiate use Z79.899 ; Hyperlipidemia, unspecified hyperlipidemia E78.5 ; Cough R05 ; Exposure to pneumonia Z20.828 ; Diarrhea, unspecified type R19.7 ; Weight loss R63.4 ; Lumbago with sciatica, right side M54.41 and Lumbago with sciatica, left side M54.42 [facility] [address] [id number] [address] [place] [address] Dec, [facility] [address] [facility] [id number] [address] [place] [address] Dec, Bronchitis J40 [facility] [address] [facility] [id number] [address] [place] [address] Nov, [facility] [address] [facility] [id number] [address] [place] [address] Nov, [facility] [address] [id number] [address] [place] [address] Nov, [facility] [address] [facility] [id number] [place] [address] Nov, Bloody diarrhea R19.7 ; [place] n wall thickening K63.9 ; Shortness of breath R06.02 and Bladder wall thickening N32.89 [facility] [address] [place] [id number] Oct, Dental examination Z01.20 [facility] [address] [facility] [id number] [address] [place] [address] 15 Oct, 2015 [facility] [address] [id number] [place] [address] Oct, Toothache K08.8 [facility] [address] [place] [id number] Oct, Dental examination Z01.20 [facility] [address] [id number] [address] [place] [address] 02 Oct, 2015 [facility] [address] [facility] [id number] [address] [place] [address] Sep, [facility] [address] [facility] [id number] [address] [place] [address] Sep, Burning with urination R30.0 [facility] [address] [facility] [id number] [address] [place] [address] Sep, Hematuria R31.9 ; Rheumatoid arthritis involving multiple sites with positive rheumatoid factor M05.89 and Rheumatoid arthritis flare M06.9 [place] [address] [id number] [address] [place] [address] Aug, Hyperlipidemia, unspecified hyperlipidemia E78.5 and Hematuria R31.9 [facility] [address] [facility] [id number] [address] [place] [address] Aug, Hematuria R31.9 ; Chronic ki dney disease, stage 1 N18.1 and Hyperlipidemia, unspecified hyperlipidemia E78.5 [place] [address] [facility] [id number] [address] [place] [address] Aug, Rheumatoid arthritis involvi ng multiple sites with positive rheumatoid factor M05.89 ; Asthma exacerbation J45.901 ; Hematuria R31.9 ; Hyperlipidemia, unspecified hyperlipidemia E78.5 and Chronic kidney disease, stage 1 N18.1 [place] [address] [facility] [id number] [address] [place] [address] Aug, [place] [address] [facility] [id number] [address] [place] [address] Jul, [place] [address] [facility] [id number] [address] [place] [address] Jul, Lumbosacral radiculopathy M5 4.17 [place] [address] [facility] [id number] [address] [place] [address] Jul, [place] [address] [facility] [id number] [address] [place] [address] Jun, Rheumatoid arthritis involvi ng multiple sites with positive rheumatoid factor M05.89 ; Hyperlipidemia, unspecified hyperlipidemia E78.5 ; Lumbosacral radiculopathy M54.17 ; Carpal tunnel syndrome, right upper limb G56.01 and Carpal tunnel syndrome, left upper limb G56.02 [place] [address] [facility] [id number] [address] [place] [address] Jun, [place] [address] [id number] [address] [place] [address] May, Lumbar radicular pain 724.4 and Dysuria 788.1 [facility] [address] [facility] [id number] [address] [place] [address] 08 May, 2015 Rheumatoid arthritis 714.0 ; Lumbar radicular pain 724.4 ; Burn 949.0 and Thoracic back pain 724.1 [facility] [address] [id number] [address] [place] [address] 08 May, 2015 [facility] [address] [facility] [id number] [address] [place] [address] May, [facility] [address] [place] [id number] [place] [address] Apr, [facility] [address] [place] [id number] [place] [address] Mar, Hyperlipidemia 272.4 [facility] [address] [place] [id number] [place] [address] Mar, [facility] [address] [place] [id number] [place] [address] Mar, [facility] [address] [place] [id number] [place] [address] Mar, Diarrhea 787.91 ; Chronic ki dney disease, unspecified 585.9 ; Hyperlipidemia 272.4 and Asthma 493.90 [facility] [address] [place] [id number] [place] [address] Mar, [facility] [address] [facility] [id number] [address] [place] [address] Mar, Gastroenteritis 558.9 [facility] [address] [facility] [id number] [address] [place] [address] Feb, [facility] [address] [place] [id number] [place] [address] January, [facility] [address] [id number] [address] [place] [address], [place] [address] January, [facility] [address] [id number] [address] [place] [address], [place] [address] 14 Dec, 2014 [facility] [address] [id number] [address] [place] [address], [place] [address] Dec, [facility] [address] [id number] [address] [place] [address], [place] [address] Nov, [facility] [address] [id number] [address] [place] [address], [place] [address] Nov, [facility] [address] [id number] [address] [place] [address], [place] [address] Nov, [facility] [address] [id number] [address] [place] [address], [place] [address] Nov, [facility] [address] [id number] [address] [place] [address], [place] [address] Nov, [facility] [address] [id number] [address] [place] [address], [place] [id number] Nov, [facility] [address] [id number] [address] [place] [address], [place] [id number] Oct, [facility] [address] [id number] [address] [place] [address], [place] [id number] Oct, [facility] [address] [id number] [address] [place] [address], [place] [id number] Sep, [facility] [address] [id number] [address] [place] [address], [place] [id number] Sep, [facility] [address] [id number] [address] [place] [address], [place] [id number] Sep, [facility] [address] [id number] [address] [place] [address], [place] [id number] Sep, [facility] [address] [id number] [address] [place] [address], [place] [id number] Sep, [facility] [address] [id number] [address] [place] [address], [place] [id number] Sep, [facility] [address] [id number] [address] [place] [address], [place] [id number] Aug, [facility] [address] [id number] [address] [place] [address], [place] [id number] Aug, [facility] [address] [id number] [address] [place] [address], [place] [id number] Aug, [facility] [address] [id number] [address] [place] [address], [place] [id number] Aug, [facility] [address] [id number] [address] [place] [address], [place] [id number] Jul, [facility] [address] [id number] [address] [place] [address], [place] [id number] Jul, [facility] [address] [id number] [address] [place] [address], [place] [id number] Jul, [facility] [address] [id number] 30 [place] [address], [place] [id number] Jul, [facility] [address] [id number] [address] [place] [address], [place] [id number] Jul, [facility] [address] [id number] [address] [place] [address], [place] [id number] Jul, [facility] [address] [id number] [address] [place] [id number] Jul, [facility] [address] [id number] [address] [place] [address], [place] [id number] Jul, [facility] [address] [id number] [address] [place] [address], [place] [id number] Jul, [facility] [address] [id number] [address] [place] [address], [place] [id number] Jun, [facility] [address] [id number] [address] [place] [address], [place] [id number] 15 Jun, 2014 [facility] [address] [id number] [address] [place] [address], [place] [id number] 15 Jun, 2014 [facility] [address] [id number] [address] [place] [address], [place] [id number] 25 May, 2013 [facility] [address] [id number] [address] [place] [address], [place] [id number] 25 Sep, 2013 [facility] [address] [id number] [address] [place] [address], [place] [id number] 24 May, 2013 [facility] [address] [id number] [address] [place] [address], [place] [id number] 24 May, 2013 [facility] [address] [id number] [address] [place] [address], [place] [id number] 24 May, 2013 [facility] [address] [id number] [address] [place] [address], [place] [id number] 24 May, 2013 [facility] [address] [id number] [address] [place] [address], [place] [id number] 19 May, 2013 [facility] [address] [id number] [address] [place] [address], [place] [id number] 19 May, 2013 [facility] [address] [id number] [address] [place] [address], [place] [id number] 11 May, 2013 [facility] [address] [id number] [address] [place] [address], [place] [id number] 11 May, 2013 [facility] [address] [id number] [address] [place] [address], [place] [id number] 11 May, 2013 [facility] [address] [id number] [address] [place] [address], [place] [id number] 11 May, 2013 [facility] [address] [id number] [address] [place] [address], [place] [id number] 10 May, 2013 [facility] [address] [id number] [address] [place] [address], [place] [id number] May, [facility] [address] [facility] [id number] [address] [place] [id number] May, [facility] [address] [facility] [id number] [address] [place] [id number] May, [facility] [address] [facility] [id number] [address] [place] [phone] Apr, [facility] [address] [facility] [id number] [address] [place] [phone] Apr, [facility] [address] [facility] [id number] [address] [place] [phone] Aug, [facility] [address] [facility] [id number] [address] [place] [phone] Jul, IMMUNIZATIONS No Known Immunizations SOCIAL HISTORY Never Assessed REASON FOR VISIT back pain x 1 week -- keya stewart PLAN OF CARE Activity Details Follow Up prn Reason: VITAL SIGNS Height 66 in 2018-04-14 Weight 172.0 lbs 2018-04-14 Temperature 98.0 degrees Fahrenheit 2018-04-14 Heart Rate 96 bpm 2018-04-14 Respiratory Rate 22 2018-04-14 BMI 27.76 kg/m2 2018-04-14 Blood pressure systolic 126 mmHg 2018-04-14 Blood pressure diastolic 80 mmHg 2018-04-14 MEDICATIONS Medication Instructions Dosage Frequency Start Date End Date Duration S tatus Gabapentin 400 mg Orally Three times a day 2 capsules 8h Dec, Active Tylenol Arthritis Pain by oral route 2 times a day 2tablets 12h Active Ipratropium-Albuterol 0.5-2.5 (3) MG/3ML Inhalation every 6 hrs 3 ml as needed 6h Active Simvastatin 40 mg Orally Once a day 1 tablet in the evening 24h Mar, 90 days Active Singulair 10 MG Orally Once a day 1 tablet 24h Active PredniSONE 10 mg Orally Once a day 4 [id number], 3 tabsq dx7d, 2 lvezxoq8l, 1 ihgpyr9m, 1/[id number] 24h Mar, Apr, 35 days Active Bystolic 10 mg Orally 2 times a day 1 tablet 12h 90 days Active Guaifenesin 400 mg Orally every 4 hrs 1 tablet as needed 4h January, 30 days Active Incruse Ellipta 62.5 MCG/INH Inhalation Once a day 1 puff 24h Active Cymbalta 60 mg Orally Once a day 1 capsule 24h Apr, 90 days Active Breo Ellipta 200-25 MCG/INH Inhalation Once a day 1 puff 24h Active ProAir HFA 108 (90 Base) MCG/ACT Inhalation every 4 hrs 2 puffs as needed 4h Mar, Active Leflunomide 20 MG Orally Once a day 1 tablet 24h Active Flonase 50 MCG/ACT Nasally Once a day 1 spray in each nostril 24h Mar, 30 day(s) Active Omeprazole 40 mg Orally Once a day 1 capsule 24h Jul, 90 days Active Cyclobenzaprine HCl 10 MG TAKE ONE TABLE T BY MOUTH THREE TIMES DAILY NEEDED 90 Active Benzonatate 200 mg Orally Three times a day 1 capsule as needed 8h January, Apr, 30 days Active OxyContin 15 mg Orally every 12 hrs 1 tablet 12h Mar, 28 days Active Ibuprofen 200 MG Orally every 4-6 hours as needed 2 tablets Active Cetirizine HCl 10 mg Orally Once a day 1 tablet 24h Mar, 8 Aug, 30 day(s) Active RESULTS Name Result Date Reference Range UA LONG DIP (IN HOUSE) 2018-04-14 Lot # [id number] Exp date 01/06 Clarity slightly cloudy Color yellow Odor no GLU Negative LORRAINE Negative KET Negative SG >=1.030 BLO Negative pH 5.0 Protein Negative URO 0.2 NIT Negative IDALIA Trace Lot # Exp date PROCEDURES Procedure Date Ordered Result Body Site URINALYSIS, AUTO, W/O SCOPE April 14, 2018 INSTRUCTIONS MEDICATIONS ADMINISTERED No Known Medications MEDICAL (GENERAL) HISTORY Type Description Date Medical History hypertension Medical History osteoporosis Medical History rheumatoid arthritis Medical History Heart infection Medical History Rheumatic or Scarlet Fever Medical History Pneumonia Medical History Bronchitis Medical History Prednisone Surgical History hysterectomy 2001 Surgical History arthroscopic knee surgery-left knee Surgical History section x 2 Surgical History otolaryngologic surgery-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
--- OUTSIDE RECORDS SUMMARY | 2020-02-27 15:47 | XMS REPORT ---
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 Name Role Phone DELORESRICHARDGUS Unavailable PROBLEMS Type Condition ICD9-CM Code [id number] Code Onset Dates Condition S tatus SNOMED Code Problem Osteoporosis M81.0 Active 9955418 6 Problem Chronic pain syndrome G89.4 Active 332477687 Problem Moderate persistent asthma with acute exacerbation J45.41 Active 962271532918240 Problem Lumbago with sciatica, right side M54.41 Active 501555403499733 Problem Chronic constipation K59.00 Active 504943437 Problem Lumbago with sciatica, left side M54.42 Active 794990468 Problem Chronic kidney disease, stage 1 N18.1 Active 123483739 Problem Severe episode of recurrent major depressive disorder, without psychotic features F33.2 Active 71591339 Problem Asthma exacerbation J45.901 Active 989702913 Problem Moderate persistent asthma without complication J4 5.40 Active 815891091 Problem Generalized anxiety disorder F41.1 A ctive 26722081 Problem Pernicious anemia D51.0 Active 84 831843 Problem Hyperlipidemia, unspecified hyperlipidemia E78.5 Active 17323374 Problem Essential hypertension I10 Active 12800911 Problem Vitamin D deficiency E55.9 Active 94073049 Problem Chronic prescription opiate use Z79.899 Active 669803787 Problem Colon wall thickening K63.9 Active 535741709 Problem Rheumatoid arthritis involvi ng multiple sites with positive rheumatoid factor M05.89 Active 049313102 Problem Bladder wall thickening N32.89 Active 290369414 Problem Atrophy of left kidney N26.1 Active 343015590 Problem Gastroesophageal reflux disease, esophagitis pre sence not specified K21.9 Active 431335977 ALLERGIES No Information ENCOUNTERS Encounter Location Date Diagnosis [facility] [address] [facility] [id number] [address] [place] [address] Apr, Chronic pain syndrome G89.4 [facility] [address] [id number] [address] [place] [address] Mar, High ankle sprain of right l ower extremity, subsequent encounter S93.431D ; Lumbago with sciatica, left side M54.42 and Lumbago with sciatica, right side M54.41 [facility] [address] [id number] [address] [place] [address] Mar, [facility] [address] [id number] [address] [place] [address] Mar, Chronic pain syndrome G89.4 [facility] [address] [id number] [address] [place] [address] Mar, [facility] [address] [id number] [address] [place] [address] Mar, Asthma exacerbation J45.901 and Sprain of right ankle, unspecified ligament, subsequent encounter S93.401D [facility] [address] [id number] [address] [place] [address] Feb, Injury of right ankle, initi al encounter S99.911A [facility] [address] [id number] [address] [place] [address] Feb, Chronic pain syndrome G89.4 [facility] [address] [id number] [address] [place] [address] Feb, Chronic pain syndrome G89.4 [facility] [address] [id number] [address] [place] [address] Feb, Moderate persistent asthma w ith acute exacerbation J45.41 and Persistent cough for 3 weeks or longer R05 [facility] [address] [id number] [address] [place] [address] January, [facility] [address] [facility] [id number] [address] [place] [address] January, Moderate persistent asthma w ith acute exacerbation J45.41 [place] [id number] [facility] [id number] [address] [place] [address] 23 Jan, 2018 Chronic pain syndrome G89.4 [place] [address] [facility] [id number] [address] [place] [address] 14 Jan, 2018 Tachycardia R00.0 and Modera te persistent asthma with acute exacerbation J45.41 [place] [address] [facility] [id number] [address] [place] [address] 11 Jan, 2018 Tachycardia R00.0 ; Moderate persistent asthma with acute exacerbation J45.41 ; Gastroesophageal reflux disease, esophagitis presence not specified K21.9 ; Hyperlipidemia, unspecified hyperlipidemia E78.5 and Chronic pain syndrome G89.4 [place] [address] [address] Dec, Medicare annual wellness vis it, initial [...] immunization Z23 and Chronic pain syndrome G89.4 [place] [address] [facility] [id number] [address] [place] [address] Dec, Chronic pain syndrome G89.4 [place] [address] [facility] [id number] [address] [place] [address] Dec, [place] [address] [facility] [id number] [address] [place] [address] Nov, [place] [address] [place] [id number] [address] [place] [address] Nov, Chronic pain syndrome G89.4 [facility] [address] [facility] [id number] [address] [place] [address] Oct, Chronic pain syndrome G89.4 [facility] [address] [facility] [id number] [address] [place] [address] 08 Oct, 2017 Chronic kidney disease, stag e 1 N18.1 [facility] [address] [facility] [id number] [address] [place] [address] 07 Oct, 2017 Chronic prescription opiate use Z79.899 ; Cough R05 ; Asthma exacerbation J45.901 ; Elevated liver enzymes R74.8 ; Rheumatoid arthritis involving multiple sites with positive rheumatoid factor M05.89 and Chronic pain syndrome G89.4 [facility] [address] [facility] [id number] [address] [place] [address] Sep, Chronic pain syndrome G89.4 [place] [address] [facility] [id number] [address] [place] [address] Sep, [place] [address] [place] [id number] [address] [place] [address] Aug, Acute bronchitis, unspecifie d organism J20.9 [place] [address] [facility] [id number] [address] [place] [address] Aug, Chronic pain syndrome G89.4 [place] [address] [facility] [id number] [address] [place] [address] Jul, Chronic pain syndrome G89.4 [place] [address] [place] [id number] [address] [place] [address] Jun, Chronic pain syndrome G89.4 [place] [address] [facility] [id number] [address] [place] [address] May, Rheumatoid arthritis involvi ng multiple sites with positive rheumatoid factor M05.89 [place] [address] [facility] [id number] [address] [place] [address] May, Gastroesophageal reflux dise ase, esophagitis presence not specified K21.9 and Chronic pain syndrome G89.4 [facility] [address] [place] [id number] [address] [place] [address] May, [place] [address] [address] 12 May, 2017 Esophageal candidiasis B37.8 1 and Chronic kidney disease, stage 1 N18.1 [place] [address] [address] 11 May, 2017 Chronic kidney disease, stag e 1 N18.1 [place] [address] [address] 05 May, 2017 Cough R05 ; Fever, unspecifi ed fever cause R50.9 ; Rheumatoid arthritis involving multiple sites with positive rheumatoid factor M05.89 and Chronic prescription opiate use Z79.899 [place] [address] [address] Apr, [place] [address] [address] Apr, Cough R05 [place] [address] [address] Apr, Asthma exacerbation J45.901 [place] [address] [address] Apr, [place] [address] [address] Apr, Generalized anxiety disorder F41.1 and Severe episode of recurrent major depressive disorder, without psychotic features F33.2 [place] [address] [address] Mar, [place] [address] [address] Feb, Chronic pain syndrome G89.4 [place] [address] [address] Feb, Acute non-recurrent maxillar y sinusitis J01.00 [place] [address] [address] Feb, Acute non-recurrent frontal sinusitis J01.10 [facility] [address] [facility] [id number] [address] [place] [address] Feb, Chronic pain syndrome G89.4 [facility] [address] [facility] [id number] [address] [place] [address] January, Acute cystitis with hematuri a N30.01 [facility] [address] [facility] [id number] [address] [place] [address] January, Acute cystitis with hematuri a N30.01 ; Dysuria R30.0 and Moderate persistent asthma with acute exacerbation J45.41 [facility] [address] [facility] [id number] [address] [place] [address] January, [place] [address] [facility] [id number] [address] [place] [address] January, Chronic pain syndrome G89.4 [facility] [address] [facility] [id number] [address] [place] [address] January, Asthma exacerbation J45.901 [facility] [address] [place] [id number] [address] [place] [address] January, Asthma exacerbation J45.901 [facility] [address] [facility] [id number] [address] [place] [address] Dec, Cough R05 ; Numbness in both hands R20.0 ; Ground glass opacity present on imaging of lung R91.8 ; Hypoxia R09.02 and Asthma exacerbation J45.901 [facility] [address] [facility] [id number] [address] [place] [address] Dec, Chronic pain syndrome G89.4 [facility] [address] [place] [id number] [address] [place] [address] Nov, Chronic prescription opiate use Z79.899 ; Rheumatoid arthritis involving multiple sites with positive rheumatoid factor M05.89 ; Moderate persistent asthma with acute exacerbation J45.41 ; Pneumonia of right lower lobe due to infectious organism J18.1 ; Chronic pain syndrome G89.4 ; Gastroesophageal reflux disease, esophagitis presence not specified K21.9 and Hyperlipidemia, unspecified hyperlipidemia E78.5 [facility] [address] [facility] [id number] [address] [place] [address] Nov, Rheumatoid arthritis involvi multiple sites with positive rheumatoid factor M05.89 [facility] [address] [place] [id number] [address] [place] [address] Oct, [place] [address] [facility] [id number] [address] [place] [address] Oct, Essential hypertension I10 [place] [id number] [place] [address] Sep, Hypoxia R09.02 and Ground gl ass opacity present on imaging of lung R91.8 [place] [id number] [address] [place] [address] Sep, Moderate persistent asthma w ith acute exacerbation J45.41 [facility] [id number] [place] [id number] Sep, [place] [address] [place] [id number] [address] [place] [address] Sep, Chronic constipation K59.00 and Moderate persistent asthma with acute exacerbation J45.41 [facility] [address] [place] [id number] [address] [place] [address] Sep, Moderate persistent asthma w ith acute exacerbation J45.41 [facility] [address] [facility] [id number] [address] [place] [address] Aug, [facility] [address] [facility] [id number] [address] [place] [address] Aug, [facility] [address] [facility] [id number] [address] [place] [address] Aug, [facility] [address] [facility] [id number] [address] [place] [address] Aug, Rheumatoid arthritis involvi ng multiple sites with positive rheumatoid factor M05.89 ; Essential hypertension I10 ; Hyperlipidemia, unspecified hyperlipidemia E78.5 ; Chronic constipation K59.00 and Moderate persistent asthma with acute exacerbation J45.41 [place] [address] [place] [id number] [address] [place] [address] Aug, Bronchitis J40 [facility] [address] [place] [id number] [address] [place] [address] Aug, Rheumatoid arthritis involvi ng multiple sites with positive rheumatoid factor M05.89 [facility] [address] [address] Aug, Pharyngitis, unspecified pablito ology J02.9 and Acute nasopharyngitis J00 [place] [address] [address] Aug, [place] [address] [address] Jul, [place] [address] [address] Jul, Rheumatoid arthritis involvi ng multiple sites with positive rheumatoid factor M05.89 ; Essential hypertension I10 ; Hyperlipidemia, unspecified hyperlipidemia E78.5 ; Rash R21 ; Mild persistent asthma with acute exacerbation J45.31 ; Hematuria R31.9 ; Osteoporosis M81.0 and Gastroesophageal reflux disease, esophagitis presence not specified K21.9 [facility] [address] [address] Jun, [facility] [address] [address] Jun, Dysuria R30.0 [facility] [address] [place] [id number] [place] [address] Jun, Acute non-recurrent maxillar y sinusitis J01.00 and Dysuria R30.0 [facility] [id number] [place] [address] May, [facility] [address] [facility] [id number] [address] [place] [address] May, [facility] [address] [facility] [id number] [address] [place] [address] Apr, Chronic prescription opiate use Z79.899 and Rheumatoid arthritis involving multiple sites with positive rheumatoid factor M05.89 [place] [address] [facility] [id number] [address] [place] [address] Mar, [facility] [address] [facility] [id number] [address] [place] [address] Feb, Dizziness of unknown cause R 42 and Other chronic pain G89.29 [place] [address] [place] [id number] [address] [place] [address] Feb, [place] [address] [place] [id number] [address] [place] [address] Feb, Shortness of breath R06.02 [place] [address] [place] [id number] [address] [place] [address] January, [place] [address] [facility] [id number] [address] [place] [address] January, Rheumatoid arthritis involvi ng multiple sites with positive rheumatoid factor M05.89 ; Chronic prescription opiate use Z79.899 ; Hyperlipidemia, unspecified hyperlipidemia E78.5 ; Cough R05 ; Exposure to pneumonia Z20.828 ; Diarrhea, unspecified type R19.7 ; Weight loss R63.4 ; Lumbago with sciatica, right side M54.41 and Lumbago with sciatica, left side M54.42 [place] [address] [facility] [id number] [address] [place] [address] Dec, [place] [address] [place] [id number] [address] [place] [address] Dec, Bronchitis J40 [facility] [address] [place] [id number] [address] [place] [address] Nov, [place] [address] [place] [id number] [address] [place] [address] Nov, [facility] [address] [id number] [address] [place] [address] Nov, [facility] [address] [facility] [id number] [address] [place] [address] Nov, Bloody diarrhea R19.7 ; [place] n wall thickening K63.9 ; Shortness of breath R06.02 and Bladder wall thickening N32.89 [facility] [address] [id number] [address] [place] [id number] 15 Oct, 2015 Dental examination Z01.20 [facility] [address] [id number] [address] [place] [address] 15 Oct, 2015 [facility] [address] [facility] [id number] [address] [place] [address] Oct, Toothache K08.8 [facility] [address] [id number] [address] [place] [id number] 11 Oct, 2015 Dental examination Z01.20 [facility] [address] [place] [id number] [address] [place] [address] 02 Oct, 2015 [facility] [address] [place] [id number] [address] [place] [address] Sep, [place] [address] [place] [id number] [address] [place] [address] Sep, Burning with urination R30.0 [place] [address] [facility] [id number] [address] [place] [address] 12 Sep, 2015 Hematuria R31.9 ; Rheumatoid arthritis involving multiple sites with positive rheumatoid factor M05.89 and Rheumatoid arthritis flare M06.9 [place] [address] [facility] [id number] [address] [place] [address] Aug, Hyperlipidemia, unspecified hyperlipidemia E78.5 and Hematuria R31.9 [place] [address] [place] [id number] [address] [place] [address] Aug, Hematuria R31.9 ; Chronic ki dney disease, stage 1 N18.1 and Hyperlipidemia, unspecified hyperlipidemia E78.5 [facility] [address] [facility] [id number] [address] [place] [address] Aug, Rheumatoid arthritis involvi ng multiple sites with positive rheumatoid factor M05.89 ; Asthma exacerbation J45.901 ; Hematuria R31.9 ; Hyperlipidemia, unspecified hyperlipidemia E78.5 and Chronic kidney disease, stage 1 N18.1 [facility] [address] [id number] [address] [place] [address] Aug, [facility] [address] [facility] [id number] [address] [place] [address] Jul, [place] [address] [facility] [id number] [address] [place] [address] Jul, Lumbosacral radiculopathy M5 4.17 [place] [address] [facility] [id number] [address] [place] [address] Jul, [facility] [address] [id number] [address] [place] [address] Jun, Rheumatoid arthritis involvi ng multiple sites with positive rheumatoid factor M05.89 ; Hyperlipidemia, unspecified hyperlipidemia E78.5 ; Lumbosacral radiculopathy M54.17 ; Carpal tunnel syndrome, right upper limb G56.01 and Carpal tunnel syndrome, left upper limb G56.02 [facility] [address] [facility] [id number] [address] [place] [address] Jun, [facility] [address] [id number] [address] [place] [address] 17 May, 2015 Lumbar radicular pain 724.4 and Dysuria 788.1 [facility] [address] [facility] [id number] [address] [place] [address] 08 May, 2015 Rheumatoid arthritis 714.0 ; Lumbar radicular pain 724.4 ; Burn 949.0 and Thoracic back pain 724.1 [facility] [address] [id number] [address] [place] [address] May, [facility] [address] [id number] [address] [place] [address] May, [facility] [address] [facility] [id number] [address] [place] [address] Apr, [facility] [address] [id number] [address] [place] [address] Mar, Hyperlipidemia 272.4 [facility] [address] [facility] [id number] [address] [place] [address] Mar, [facility] [address] [facility] [id number] [address] [place] [address] Mar, [facility] [address] [facility] [id number] [address] [place] [address] Mar, Diarrhea 787.91 ; Chronic ki dney disease, unspecified 585.9 ; Hyperlipidemia 272.4 and Asthma 493.90 [facility] [address] [facility] [id number] [address] [place] [address] Mar, [facility] [address] [facility] [id number] [address] [place] [address] Mar, Gastroenteritis 558.9 [facility] [address] [facility] [id number] [address] [place] [address] Feb, [facility] [address] [id number] [address] [place] [address] January, [facility] [address] [id number] [address] [place] [address] January, [facility] [address] [facility] [id number] [address] [place] [address] Dec, [facility] [address] [facility] [id number] [address] [place] [address] Dec, [facility] [address] [id number] [address] [place] [address], [place] [address] 20 Nov, 2014 [facility] [address] [id number] [address] [place] [address], [place] [address] 20 Nov, 2014 [facility] [address] [id number] [address] [place] [address], [place] [address] 19 Nov, 2014 [facility] [address] [id number] [address] [place] [address], [place] [address] 19 Nov, 2014 [facility] [address] [id number] [address] [place] [address], [place] [address] Nov, [facility] [address] [id number] [address] [place] [address], [place] [address] Nov, [facility] [address] [id number] [address] [place] [address], [place] [address] 16 Oct, 2014 [facility] [address] [id number] [address] [place] [address], [place] [address] Oct, [facility] [address] [id number] [address] [place] [address], [place] [address] Sep, [facility] [address] [id number] [address] [place] [address], [place] [address] Sep, [facility] [address] [id number] [address] [place] [address], [place] [address] Sep, [facility] [address] [id number] [address] [place] [address], [place] [address] Sep, [facility] [address] [id number] [address] [place] [address], [place] [address] Sep, [facility] [address] [id number] [address] [place] [address], [place] [address] Sep, [facility] [address] [id number] [address] [place] [address], [place] [address] Aug, [facility] [address] [id number] [address] [place] [address], [place] [address] Aug, [facility] [address] [id number] [address] [place] [address], [place] [address] Aug, [facility] [address] [id number] [address] [place] [address], [place] [address] Aug, [facility] [address] [id number] [address] [place] [address], [place] [address] Jul, [facility] [address] [id number] [address] [place] [address], [place] [address] Jul, [facility] [address] [id number] [address] [place] [address], [place] [address] Jul, [facility] [address] [id number] [address] [place] [address], [place] [address] Jul, [facility] [address] [id number] [address] [place] [address], [place] [address] Jul, [facility] [address] [id number] [address] [place] [address], [place] [address] Jul, [facility] [address] [id number] [address] [place] [address], [place] [address] Jul, [facility] [address] [id number] [address] [place] [id number] Jul, [facility] [address] [id number] [address] [place] [id number] Jul, [facility] [address] [id number] [address] [place] [id number] Jun, [facility] [address] [id number] [address] [place] [address], [place] [id number] Jun, [facility] [address] [id number] [address] [place] [address], [place] [id number] Jun, [facility] [address] [id number] [address] [place] [id number] May, [facility] [address] [id number] [address] [place] [id number] 25 Sep, 2013 [facility] [address] [id number] [address] [place] [address], [place] [address] 24 Sep, 2013 [facility] [address] [id number] [address] [place] [address], [place] [address] 24 Sep, 2013 [facility] [address] [id number] [address] [place] [address], [place] [address] 24 Sep, 2013 [facility] [address] [id number] [address] [place] [address], [place] [address] 24 Sep, 2013 [facility] [address] [id number] [address] [place] [address], [place] [address] 19 Sep, 2013 [facility] [address] [id number] [address] [place] [address], [place] [address] 19 May, 2013 [facility] [address] [id number] [address] [place] [address], [place] [address] 11 May, 2013 [facility] [address] [id number] [address] [place] [address], [place] [address] 11 May, 2013 [facility] [address] [id number] [address] [place] [address], [place] [address] 11 May, 2013 [facility] [address] [id number] [address] [place] [address], [place] [address] 11 May, 2013 [facility] [address] [id number] [address] [place] [address], [place] [address] 10 May, 2013 [facility] [address] [id number] [address] [place] [address], [place] [address] 09 Sep, 2013 [facility] [address] [id number] [address] [place] [address], [place] [address] 09 Sep, 2013 [facility] [address] [id number] [address] [place] [address], [place] [address] 08 May, 2013 [facility] [address] [id number] [address] [place] [address], [place] [address] 22 Apr, 2013 [facility] [address] [facility] [id number] [address] [place] [phone] Apr, [facility] [address] [facility] [id number] [address] [place] [phone] Aug, [facility] [address] [facility] [id number] [address] [place] [phone] Jul, IMMUNIZATIONS No Known Immunizations SOCIAL HISTORY Never Assessed REASON FOR VISIT Controlled Medication Refill PLAN OF CARE VITAL SIGNS MEDICATIONS Medication Instructions Dosage Frequency Start Date End Date Duration S farooq OxyContin 15 mg Orally every 12 hrs 1 tablet 12h Feb, 28 days Active RESULTS No Results PROCEDURES [...]
--- OUTSIDE RECORDS SUMMARY | 2020-02-27 15:47 | XMS REPORT ---
Author Author Beba ESTRELLA Organization [facility] Address [address] [place] [address] Care Team Providers Care Commissioning Engineer Name Role Phone ESTRELLARICHARD AllenELE Unavailable PROBLEMS Type Condition ICD9-CM Code ZVL02-FW Code Onset Dates Condition S tatus SNOMED Code Problem Osteoporosis M81.0 Active 0381717 6 Problem Chronic pain syndrome G89.4 Active 263501733 Problem Moderate persistent asthma with acute exacerbation J45.41 Active [id number] Problem Lumbago with sciatica, right side M54.41 Active 270716134147643 Problem Chronic constipation K59.00 Active 071613559 Problem Lumbago with sciatica, left side M54.42 Active 509626248 Problem Chronic kidney disease, stage 1 N18.1 Active 310536873 Problem Severe episode of recurrent major depressive disorder, without psychotic features F33.2 Active 56648799 Problem Asthma exacerbation J45.901 Active 932873010 Problem Moderate persistent asthma without complication J4 5.40 Active 097800176 Problem Generalized anxiety disorder F41.1 A ctive 64417969 Problem Pernicious anemia D51.0 Active 84 282304 Problem Hyperlipidemia, unspecified hyperlipidemia E78.5 Active 39036665 Problem Essential hypertension I10 Active 82238114 Problem Vitamin D deficiency E55.9 Active 41073353 Problem Chronic prescription opiate use Z79.899 Active 423684017 Problem Colon wall thickening K63.9 Active 197591260 Problem Rheumatoid arthritis involvi ng multiple sites with positive rheumatoid factor M05.89 Active 425820313 Problem Bladder wall thickening N32.89 Active 066014012 Problem Atrophy of left kidney N26.1 Active 826988276 Problem Gastroesophageal reflux disease, esophagitis pre sence not specified K21.9 Active 741806657 ALLERGIES Substance Reaction Event Type Date Status Penicillin V Potassium Cannot tolerate Oral PCN. St ates she can tolerate injections Drug Allergy Feb, Active Orencia Unknown Drug Allergy Feb, Active Cipro Unknown Drug Allergy Feb, Active Codeine Unknown Drug Allergy Feb, Active Ivp Dye anaphylaxis Non Drug Allergy Feb, Active ENCOUNTERS Encounter Location Date Diagnosis [facility] [address] [facility] [id number] [address] [place] [phone] Apr, Chronic pain syndrome G89.4 [facility] [address] [facility] [id number] [address] [place] [id number] Mar, High ankle sprain of right l ower extremity, subsequent encounter S93.431D ; Lumbago with sciatica, left side M54.42 and Lumbago with sciatica, right side M54.41 [facility] [address] [facility] [id number] [address] [place] [address] Mar, [facility] [address] [facility] [id number] [address] [place] [address] Mar, Chronic pain syndrome G89.4 [facility] [address] [place] [id number] [address] [place] [address] Mar, [facility] [address] [facility] [id number] [address] [place] [address] Mar, Asthma exacerbation J45.901 and Sprain of right ankle, unspecified ligament, subsequent encounter S93.401D [facility] [address] [facility] [id number] [address] [place] [address] Feb, Injury of right ankle, initi al encounter S99.911A [facility] [address] [facility] [id number] [address] [place] [address] Feb, Chronic pain syndrome G89.4 [facility] [address] [facility] [id number] [address] [place] [address] Feb, Chronic pain syndrome G89.4 [facility] [address] [facility] [id number] [address] [place] [address] Feb, Moderate persistent asthma w ith acute exacerbation J45.41 and Persistent cough for 3 weeks or longer R05 [place] [address] [facility] [id number] [address] [place] [address] January, [place] [address] [place] [id number] [address] [place] [id number] January, Moderate persistent asthma w ith acute exacerbation J45.41 [place] [address] [place] [id number] [address] [place] [id number] January, Chronic pain syndrome G89.4 [place] [address] [place] [id number] [address] [place] [address] January, Tachycardia R00.0 and Modera te persistent asthma with acute exacerbation J45.41 [place] [address] [place] [id number] [place] [address] January, Tachycardia R00.0 ; Moderate persistent asthma with acute exacerbation J45.41 ; Gastroesophageal reflux disease, esophagitis presence not specified K21.9 ; Hyperlipidemia, unspecified hyperlipidemia E78.5 and Chronic pain syndrome G89.4 [place] [address] [place] [id number] [address] [place] [phone] Dec, Medicare annual wellness vis it, initial [...] immunization Z23 and Chronic pain syndrome G89.4 [place] [address] [facility] [id number] [address] [place] [id number] Dec, Chronic pain syndrome G89.4 [place] [address] [place] [id number] [address] [place] [phone] Dec, [place] [address] [place] [id number] [address] [place] [address] Nov, [place] [address] [place] [id number] [address] [place] [address] Nov, Chronic pain syndrome G89.4 [facility] [address] [place] [id number] [address] [place] [id number] Oct, Chronic pain syndrome G89.4 [facility] [address] [place] [id number] [address] [place] [id number] Oct, Chronic kidney disease, stag e 1 N18.1 [facility] [address] [place] [id number] [address] [place] [address] Oct, Chronic prescription opiate use Z79.899 ; Cough R05 ; Asthma exacerbation J45.901 ; Elevated liver enzymes R74.8 ; Rheumatoid arthritis involving multiple sites with positive rheumatoid factor M05.89 and Chronic pain syndrome G89.4 [place] [address] [place] [id number] [address] [place] [address] Sep, Chronic pain syndrome G89.4 [facility] [address] [place] [id number] [address] [place] [id number] Sep, [facility] [address] [place] [id number] [address] [place] [address] Aug, Acute bronchitis, unspecifie d organism J20.9 [place] [address] [place] [id number] [address] [place] [phone] Aug, Chronic pain syndrome G89.4 [place] [address] [place] [id number] [address] [place] [phone] Jul, Chronic pain syndrome G89.4 [facility] [address] [place] [id number] [address] [place] [id number] Jun, Chronic pain syndrome G89.4 [facility] [address] [place] [id number] [address] [place] [address] May, Rheumatoid arthritis involvi ng multiple sites with positive rheumatoid factor M05.89 [facility] [address] [place] [id number] [address] [place] [address] May, Gastroesophageal reflux dise ase, esophagitis presence not specified K21.9 and Chronic pain syndrome G89.4 [place] [address] [place] [id number] [address] [place] [id number] May, [place] [address] [place] [id number] [place] [address] May, Chronic kidney disease, stag e 1 N18.1 and Esophageal candidiasis B37.81 [place] [address] [place] [id number] [address] [place] [address] May, Chronic kidney disease, stag e 1 N18.1 [place] [address] [address] May, Cough R05 ; Fever, unspecifi ed fever cause R50.9 ; Rheumatoid arthritis involving multiple sites with positive rheumatoid factor M05.89 and Chronic prescription opiate use Z79.899 [place] [address] [address] Apr, [place] [address] [address] Apr, Cough R05 [place] [address] [address] Apr, Asthma exacerbation J45.901 [place] [address] [address] Apr, [place] [address] [address] Apr, Generalized anxiety disorder F41.1 and Severe episode of recurrent major depressive disorder, without psychotic features F33.2 [place] [address] [place] [id number] [address] [place] [address] Mar, [place] [address] [address] Feb, Chronic pain syndrome G89.4 [place] [address] [facility] [id number] [address] [place] [address] Feb, Acute non-recurrent maxillar y sinusitis J01.00 [facility] [address] [facility] [id number] [address] [place] [address] Feb, Acute non-recurrent frontal sinusitis J01.10 [facility] [address] [facility] [id number] [address] [place] [address] Feb, Chronic pain syndrome G89.4 [facility] [address] [facility] [id number] [address] [place] [address] January, Acute cystitis with hematuri a N30.01 [place] [address] [facility] [id number] [address] [place] [address] January, Acute cystitis with hematuri a N30.01 ; Dysuria R30.0 and Moderate persistent asthma with acute exacerbation J45.41 [place] [address] [facility] [id number] [address] [place] [address] January, [place] [address] [facility] [id number] [address] [place] [address] January, Chronic pain syndrome G89.4 [place] [address] [facility] [id number] [address] [place] [address] January, Asthma exacerbation J45.901 [place] [address] [facility] [id number] [address] [place] [address] January, Asthma exacerbation J45.901 [place] [address] [facility] [id number] [address] [place] [address] Dec, Cough R05 ; Numbness in both hands R20.0 ; Ground glass opacity present on imaging of lung R91.8 ; Hypoxia R09.02 and Asthma exacerbation J45.901 [place] [address] [facility] [id number] [address] [place] [address] Dec, Chronic pain syndrome G89.4 [place] [address] [place] [id number] [address] [place] [address] Nov, Chronic prescription opiate use Z79.899 ; Rheumatoid arthritis involving multiple sites with positive rheumatoid factor M05.89 ; Moderate persistent asthma with acute exacerbation J45.41 ; Pneumonia of right lower lobe due to infectious organism J18.1 ; Chronic pain syndrome G89.4 ; Gastroesophageal reflux disease, esophagitis presence not specified K21.9 and Hyperlipidemia, unspecified hyperlipidemia E78.5 [place] [address] [address] Nov, Rheumatoid arthritis involvi ng multiple sites with positive rheumatoid factor M05.89 [place] [address] [address] Oct, [place] [address] [address] Oct, Essential hypertension I10 [place] [address] [address] Sep, Hypoxia R09.02 and Ground gl ass opacity present on imaging of lung R91.8 [place] [address] [address] Sep, Moderate persistent asthma w ith acute exacerbation J45.41 [facility] [address] [place] [id number] [place] [id number] Sep, [facility] [address] [place] [id number] [address] [place] [id number] Sep, Chronic constipation K59.00 and Moderate persistent asthma with acute exacerbation J45.41 [facility] [address] [place] [id number] [address] [place] [address] Sep, Moderate persistent asthma w ith acute exacerbation J45.41 [facility] [address] [place] [id number] [address] [place] [id number] Aug, [facility] [address] [address] Aug, [facility] [address] [facility] [id number] [address] [place] [id number] Aug, [facility] [address] [facility] [id number] [address] [place] [address] Aug, Rheumatoid arthritis involvi ng multiple sites with positive rheumatoid factor M05.89 ; Essential hypertension I10 ; Hyperlipidemia, unspecified hyperlipidemia E78.5 ; Chronic constipation K59.00 and Moderate persistent asthma with acute exacerbation J45.41 [place] [address] [place] [id number] [address] [place] [id number] Aug, Bronchitis J40 [place] [address] [facility] [id number] [place] [phone] Aug, Rheumatoid arthritis involvi ng multiple sites with positive rheumatoid factor M05.89 [place] [address] [address] Aug, Pharyngitis, unspecified pablito ology J02.9 and Acute nasopharyngitis J00 [place] [address] [place] [address] Aug, [facility] [address] [place] [id number] [place] [address] Jul, [facility] [address] [place] [id number] [place] [address] Jul, Rheumatoid arthritis involvi ng multiple sites with positive rheumatoid factor M05.89 ; Essential hypertension I10 ; Hyperlipidemia, unspecified hyperlipidemia E78.5 ; Rash R21 ; Mild persistent asthma with acute exacerbation J45.31 ; Hematuria R31.9 ; Osteoporosis M81.0 and Gastroesophageal reflux disease, esophagitis presence not specified K21.9 [facility] [address] [place] [id number] [address] [place] [address] Jun, [facility] [address] [place] [id number] [place] [address] Jun, Dysuria R30.0 [facility] [address] [address] Jun, Acute non-recurrent maxillar y sinusitis J01.00 and Dysuria R30.0 [place] [address] [address] 16 May, 2016 [place] [address] [address] 15 May, 2016 [place] [address] [address] Apr, Chronic prescription opiate use Z79.899 and Rheumatoid arthritis involving multiple sites with positive rheumatoid factor M05.89 [place] [address] [address] Mar, [place] [address] [address] Feb, Dizziness of unknown cause R 42 and Other chronic pain G89.29 [place] [address] [address] Feb, [place] [address] [address] Feb, Shortness of breath R06.02 [place] [address] [address] January, [place] [address] [address] January, Rheumatoid arthritis involvi ng multiple sites with positive rheumatoid factor M05.89 ; Chronic prescription opiate use Z79.899 ; Hyperlipidemia, unspecified hyperlipidemia E78.5 ; Cough R05 ; Exposure to pneumonia Z20.828 ; Diarrhea, unspecified type R19.7 ; Weight loss R63.4 ; Lumbago with sciatica, right side M54.41 and Lumbago with sciatica, left side M54.[address] [address] Dec, [place] [address] [id number] [address] [place] [address] Dec, Bronchitis J40 [facility] [address] [facility] [id number] [address] [place] [address] Nov, [facility] [address] [id number] [address] [place] [id number] Nov, [facility] [address] [facility] [id number] [address] [place] [address] Nov, [facility] [address] [id number] [address] [place] [address] Nov, Bloody diarrhea R19.7 ; [place] n wall thickening K63.9 ; Shortness of breath R06.02 and Bladder wall thickening N32.89 [facility] [address] [place] [id number] 15 Oct, 2015 Dental examination Z01.20 [facility] [address] [facility] [id number] [address] [place] [address] 15 Oct, 2015 [facility] [address] [id number] [address] [place] [address] 15 Oct, 2015 Toothache K08.8 [facility] [address] [id number] [address] [place] [id number] 11 Oct, 2015 Dental examination Z01.20 [facility] [address] [facility] [id number] [address] [place] [address] 02 Oct, 2015 [facility] [address] [facility] [id number] [address] [place] [address] 18 Sep, 2015 [facility] [address] [facility] [id number] [address] [place] [id number] 13 Sep, 2015 Burning with urination R30.0 [facility] [address] [id number] [address] [place] [address] 12 Sep, 2015 Hematuria R31.9 ; Rheumatoid arthritis involving multiple sites with positive rheumatoid factor M05.89 and Rheumatoid arthritis flare M06.9 [facility] [address] [id number] [address] [place] [address] Aug, Hyperlipidemia, unspecified hyperlipidemia E78.5 and Hematuria R31.9 [facility] [address] [id number] [address] [place] [address] Aug, Hematuria R31.9 ; Chronic ki dney disease, stage 1 N18.1 and Hyperlipidemia, unspecified hyperlipidemia E78.5 [place] [address] [id number] [address] [place] [address] Aug, Rheumatoid arthritis involvi ng multiple sites with positive rheumatoid factor M05.89 ; Asthma exacerbation J45.901 ; Hematuria R31.9 ; Hyperlipidemia, unspecified hyperlipidemia E78.5 and Chronic kidney disease, stage 1 N18.1 [place] [address] [id number] [address] [place] [address] Aug, [place] [address] [id number] [address] [place] [address] Jul, [place] [address] [id number] [address] [place] [id number] Jul, Lumbosacral radiculopathy M5 4.17 [facility] [address] [id number] [address] [place] [address] Jul, [place] [address] [id number] [address] [place] [address] Jun, Rheumatoid arthritis involvi ng multiple sites with positive rheumatoid factor M05.89 ; Hyperlipidemia, unspecified hyperlipidemia E78.5 ; Lumbosacral radiculopathy M54.17 ; Carpal tunnel syndrome, right upper limb G56.01 and Carpal tunnel syndrome, left upper limb G56.02 [facility] [address] [id number] [address] [place] [address] 15 Jun, 2015 [place] [address] [id number] [address] [place] [address] May, Lumbar radicular pain 724.4 and Dysuria 788.1 [facility] [address] [id number] [address] [place] [address] May, Rheumatoid arthritis 714.0 ; Lumbar radicular pain 724.4 ; Burn 949.0 and Thoracic back pain 724.1 [facility] [address] [id number] [address] [place] [phone] May, [facility] [address] [id number] [address] [place] [phone] May, [facility] [address] [id number] [address] [place] [id number] Apr, [facility] [address] [facility] [id number] [address] [place] [address] Mar, Hyperlipidemia 272.4 [facility] [address] [facility] [id number] [address] [place] [id number] Mar, [facility] [address] [facility] [id number] [address] [place] [address] Mar, [facility] [address] [facility] [id number] [address] [place] [address] Mar, Diarrhea 787.91 ; Chronic ki dney disease, unspecified 585.9 ; Hyperlipidemia 272.4 and Asthma 493.90 [facility] [address] [facility] [id number] [address] [place] [id number] Mar, [facility] [address] [facility] [id number] [address] [place] [address] Mar, Gastroenteritis 558.9 [facility] [address] [facility] [id number] [address] [place] [phone] Feb, [facility] [address] [facility] [id number] [address] [place] [phone] January, [facility] [address] [facility] [id number] [address] [place] [phone] January, [facility] [address] [id number] [address] [place] [address], [place] [address] 14 Dec, 2014 [facility] [address] [id number] [address] [place] [address], [place] [address] 13 Dec, 2014 [facility] [address] [id number] [address] [place] [address], [place] [address] 20 Nov, 2014 [facility] [address] [id number] [address] [place] [address], [place] [address] 20 Nov, 2014 [facility] [address] [id number] [address] [place] [address], [place] [address] 19 Nov, 2014 [facility] [address] [id number] [address] [place] [address], [place] [address] 19 Nov, 2014 [facility] [address] [id number] [address] [place] [address], [place] [address] Nov, [facility] [address] [id number] [address] [place] [address], [place] [address] Nov, [facility] [address] [id number] [address] [place] [address], [place] [address] Oct, [facility] [address] [id number] [address] [place] [address], [place] [address] Oct, [facility] [address] [id number] [address] [place] [address], [place] [address] Sep, [facility] [address] [id number] [address] [place] [address], [place] [address] Sep, [facility] [address] [id number] [address] [place] [address], [place] [address] Sep, [facility] [address] [id number] [address] [place] [address], [place] [address] Sep, [facility] [address] [id number] [address] [place] [address], [place] [address] Sep, [facility] [address] [id number] [address] [place] [address], [place] [address] Sep, [facility] [address] [id number] [address] [place] [address], [place] [address] Aug, [facility] [address] [id number] [address] [place] [address], [place] [address] Aug, [facility] [address] [id number] [address] [place] [address], [place] [address] Aug, [facility] [address] [id number] [address] [place] [address], [place] [address] Aug, [facility] [address] [id number] [address] [place] [address], [place] [address] Jul, [facility] [address] [id number] [address] [place] [address], [place] [address] Jul, [facility] [address] [id number] [address] [place] [address], [place] [address] Jul, [facility] [address] [id number] [address] [place] [address], [place] [address] Jul, [facility] [address] [id number] [address] [place] [address], [place] [id number] Jul, [facility] [address] [id number] [address] [place] [address], [place] [id number] Jul, [facility] [address] [id number] [address] [place] [id number] Jul, [facility] [address] [id number] [address] [place] [id number] Jul, [facility] [address] [id number] [address] [place] [address], [place] [id number] Jul, [facility] [address] [id number] [address] [place] [address], [place] [id number] Jun, [facility] [address] [id number] [address] [place] [id number] 15 Jun, 2014 [facility] [address] [id number] [address] [place] [address], [place] [id number] 15 Jun, 2014 [facility] [address] [id number] [address] [place] [address], [place] [id number] 25 Sep, 2013 [facility] [address] [id number] [address] [place] [address], [place] [id number] 25 May, 2013 [facility] [address] [id number] [address] [place] [address], [place] [id number] 24 May, 2013 [facility] [address] [id number] [address] [place] [address], [place] [id number] 24 May, 2013 [facility] [address] [id number] [address] [place] [address], [place] [id number] 24 May, 2013 [facility] [address] [id number] [address] [place] [address], [place] [id number] 24 May, 2013 [facility] [address] [id number] [address] [place] [address], [place] [address] 19 May, 2013 [facility] [address] [id number] [address] [place] [address], [place] [id number] 19 May, 2013 [facility] [address] [id number] [address] [place] [address], [place] [address] 11 May, 2013 [facility] [address] [id number] [address] [place] [address], [place] [address] 11 May, 2013 [facility] [address] [id number] [address] [place] [address], [place] [address] 11 May, 2013 [facility] [address] [id number] [address] [place] [address], [place] [phone] 11 May, 2013 [facility] [address] [id number] [address] [place] [address], [place] [address] 10 May, 2013 [facility] [address] [id number] [address] [place] [address], [place] [phone] 09 May, 2013 [facility] [address] [id number] [address] [place] [address], [place] [address] May, [facility] [address] [facility] [id number] [address] [place] [phone] May, [facility] [address] [facility] [id number] [address] [place] [phone] Apr, [facility] [address] [facility] [id number] [address] [place] [phone] Apr, [facility] [address] [facility] [id number] [address] [place] [phone] Aug, [facility] [address] [facility] [id number] [address] [place] [phone] Jul, IMMUNIZATIONS Vaccine Route Administration Date Status DEPO MEDROL 80 MG/ML IM Intramuscular March 04, 2018 Administer ed SOCIAL HISTORY Never Assessed REASON FOR VISIT Cough--[place], cough and congestion that started the beginning of January. Pt gastelum s taken antibiotics and prednisone. Still not improving., pt states she was give n some sample inhalers from Dr. Adair recently does not know name and Dr. Car office is closed currently. PLAN OF CARE Activity Details Follow Up 2 - 3 Days Reason:cough VITAL SIGNS Height 66 in 2018-03-04 Weight 150.1 lbs 2018-03-04 Temperature 98.1 degrees Fahrenheit 2018-03-04 Heart Rate 110 bpm 2018-03-04 Respiratory Rate 24 2018-03-04 Oximetry 90 % 2018-03-04 BMI 24.22 kg/m2 2018-03-04 Blood pressure systolic 118 mmHg 2018-03-04 Blood pressure diastolic 78 mmHg 2018-03-04 MEDICATIONS Medication Instructions Dosage Frequency Start Date End Date Duration S tatus Tylenol Arthritis Pain by oral route 2 times a day 2tablets 12h Active PredniSONE 20 mg Orally Once a day 3 tabs x 5 days 2 ta bs x 5 days then 1 tab x 5 days 24h Feb, Feb, 15 days Active Ibuprofen 200 MG Orally every 4-6 hours as needed 2 tablets Active Dulcolax 10 MG Rectal Once a day 1 suppository as needed 24h Not-Taking Symbicort 160-4.5 MCG/ACT Inhalation Twice a day 2 puffs 12h Active ProAir HFA 108 (90 Base) MCG/ACT Inhalation every 4 hrs 2 puffs as needed 4h 02 Mar, 2015 Active Gabapentin 400 mg Orally Three times a day 2 capsules 8h Dec, 18 Active Singulair 10 MG Orally Once a day 1 tablet 24h Active Cymbalta 60 mg Orally Once a day 1 capsule 24h Apr, 90 days Active Azithromycin 250 MG Orally Once a day 2 tablets on the fi rst day, then 1 tablet daily for 4 days 24h Feb, Feb, 5 day(s) Active Omeprazole 40 mg Orally Once a day 1 capsule 24h Jul, 90 days Active Ipratropium-Albuterol 0.5-2.5 (3) MG/3ML Inhalation every 6 hrs 3 ml as needed 6h Active OxyContin 15 mg Orally every 12 hrs 1 tablet 12h January, 28 days Active Cyclobenzaprine HCl 10 MG TAKE ONE TABLE T BY MOUTH THREE TIMES DAILY NEEDED 90 Active Bystolic 10 mg Orally 2 times a day 1 tablet 12h 90 days Active Simvastatin 40 mg Orally Once a day 1 tablet in the evening 24h Mar, 90 days Active Leflunomide 20 MG Orally Once a day 1 tablet 24h Active Guaifenesin 400 mg Orally every 4 hrs 1 tablet as needed 4h 1 4 Jan, 2018 Feb, 30 days Active RESULTS Name Result Date Reference Range Xray : Chest 2 View (IN HOUSE) 2018-03-04 PROCEDURES Procedure Date Ordered Result Body Site X-RAY EXAM CHEST 2 VIEWS March 04, 2018 DEPO MEDROL 80 MG/ML March 04, 2018 THER/PROPH/DIAG INJ, SC/IM March 04, 2018 INSTRUCTIONS MEDICATIONS ADMINISTERED No Known Medications [...]
--- OUTSIDE RECORDS SUMMARY | 2020-02-27 15:47 | XMS REPORT ---
Author Author Beba CORBIN [facility] Address [address] [place] [address] Care Team Providers Care Coal Cager Name Role Phone EMERALDSTUARTEDWARD Unavailable PROBLEMS Type Condition ICD9-CM Code GCO36-VG Code Onset Dates Condition S tatus SNOMED Code Problem Osteoporosis M81.0 Active 8498842 6 Problem Chronic pain syndrome G89.4 Active 052643543 Problem Moderate persistent asthma with acute exacerbation J45.41 Active 040806574494504 Problem Lumbago with sciatica, right side M54.41 Active 484337881321604 Problem Chronic constipation K59.00 Active 898456524 Problem Lumbago with sciatica, left side M54.42 Active 663158757 Problem Chronic kidney disease, stage 1 N18.1 Active 840937098 Problem Severe episode of recurrent major depressive disorder, without psychotic features F33.2 Active 62638782 Problem Asthma exacerbation J45.901 Active 193980385 Problem Moderate persistent asthma without complication J4 5.40 Active 923869822 Problem Generalized anxiety disorder F41.1 A ctive 18849814 Problem Pernicious anemia D51.0 Active 84 319536 Problem Hyperlipidemia, unspecified hyperlipidemia E78.5 Active 85877910 Problem Essential hypertension I10 Active 97974423 Problem Vitamin D deficiency E55.9 Active 08490550 Problem Chronic prescription opiate use Z79.899 Active 571086368 Problem Colon wall thickening K63.9 Active 672527198 Problem Rheumatoid arthritis involvi ng multiple sites with positive rheumatoid factor M05.89 Active 384678000 Problem Bladder wall thickening N32.89 Active 308902771 Problem Atrophy of left kidney N26.1 Active 830078622 Problem Gastroesophageal reflux disease, esophagitis pre sence not specified K21.9 Active 893654129 ALLERGIES Substance Reaction Event Type Date Status Penicillin V Potassium Cannot tolerate Oral PCN. St ates she can tolerate injections Drug Allergy Mar, Active Orencia Unknown Drug Allergy Mar, Active Cipro Unknown Drug Allergy Mar, Active Codeine Unknown Drug Allergy Mar, Active Ivp Dye anaphylaxis Non Drug Allergy Mar, Active ENCOUNTERS Encounter Location Date Diagnosis [facility] [address] [facility] [id number] [address] [place] [address] Apr, Chronic pain syndrome G89.4 [facility] [address] [facility] [id number] [address] [place] [address] Mar, High ankle sprain of right l ower extremity, subsequent encounter S93.431D ; Lumbago with sciatica, left side M54.42 and Lumbago with sciatica, right side M54.41 [facility] [address] [facility] [id number] [address] [place] [address] Mar, [facility] [address] [facility] [id number] [address] [place] [address] Mar, Chronic pain syndrome G89.4 [facility] [address] [facility] [id number] [address] [place] [address] Mar, [facility] [address] [facility] [id number] [address] [place] [address] Mar, Asthma exacerbation J45.901 and Sprain of right ankle, unspecified ligament, subsequent encounter S93.401D [facility] [address] [facility] [id number] [address] [place] [address] Feb, Injury of right ankle, initi al encounter S99.911A [facility] [address] [facility] [id number] [address] [place] [address] Feb, Chronic pain syndrome G89.4 [facility] [address] [facility] [id number] [address] [place] [address] Feb, Chronic pain syndrome G89.4 [facility] [address] [facility] [id number] [address] [place] [address] Feb, Moderate persistent asthma w ith acute exacerbation J45.41 and Persistent cough for 3 weeks or longer R05 [place] [address] [facility] [id number] [address] [place] [address] January, [place] [address] [place] [id number] [address] [place] [address] January, Moderate persistent asthma w ith acute exacerbation J45.41 [place] [address] [place] [id number] [address] [place] [address] January, Chronic pain syndrome G89.4 [place] [address] [place] [id number] [address] [place] [address] January, Tachycardia R00.0 and Modera te persistent asthma with acute exacerbation J45.41 [place] [address] [id number] 11 Jan, 2018 Tachycardia R00.0 ; Moderate persistent asthma with acute exacerbation J45.41 ; Gastroesophageal reflux disease, esophagitis presence not specified K21.9 ; Hyperlipidemia, unspecified hyperlipidemia E78.5 and Chronic pain syndrome G89.4 [place] [id number] [place] [address] Dec, Medicare annual wellness vis it, initial [...] immunization Z23 and Chronic pain syndrome G89.4 [place] [address] [facility] [id number] [address] [place] [address] Dec, Chronic pain syndrome G89.4 [place] [address] [place] [id number] [address] [place] [address] Dec, [place] [address] [place] [id number] [address] [place] [address] Nov, [place] [address] [place] [id number] [address] [place] [address] Nov, Chronic pain syndrome G89.4 [facility] [address] [facility] [id number] [address] [place] [address] Oct, Chronic pain syndrome G89.4 [facility] [address] [place] [id number] [address] [place] [address] Oct, Chronic kidney disease, stag e 1 N18.1 [facility] [address] [facility] [id number] [address] [place] [address] Oct, Chronic prescription opiate use Z79.899 ; Cough R05 ; Asthma exacerbation J45.901 ; Elevated liver enzymes R74.8 ; Rheumatoid arthritis involving multiple sites with positive rheumatoid factor M05.89 and Chronic pain syndrome G89.4 [place] [address] [place] [id number] [address] [place] [address] Sep, Chronic pain syndrome G89.4 [place] [address] [place] [id number] [address] [place] [address] Sep, [place] [address] [place] [id number] [address] [place] [address] Aug, Acute bronchitis, unspecifie d organism J20.9 [place] [address] [place] [id number] [address] [place] [address] Aug, Chronic pain syndrome G89.4 [place] [address] [facility] [id number] [address] [place] [address] Jul, Chronic pain syndrome G89.4 [facility] [address] [facility] [id number] [address] [place] [address] Jun, Chronic pain syndrome G89.4 [facility] [address] [place] [id number] [address] [place] [address] May, Rheumatoid arthritis involvi ng multiple sites with positive rheumatoid factor M05.89 [facility] [address] [place] [id number] [address] [place] [address] May, Gastroesophageal reflux dise ase, esophagitis presence not specified K21.9 and Chronic pain syndrome G89.4 [place] [address] [address] May, [place] [address] [address] May, Esophageal candidiasis B37.8 1 and Chronic kidney disease, stage 1 N18.1 [place] [address] [address] May, Chronic kidney disease, stag e 1 N18.1 [place] [address] [address] 05 May, 2017 Cough R05 ; Fever, unspecifi ed fever cause R50.9 ; Rheumatoid arthritis involving multiple sites with positive rheumatoid factor M05.89 and Chronic prescription opiate use Z79.899 [place] [address] [address] Apr, [place] [address] [address] Apr, Cough R05 [place] [address] [address] Apr, Asthma exacerbation J45.901 [place] [address] [address] Apr, [place] [address] [address] Apr, Generalized anxiety disorder F41.1 and Severe episode of recurrent major depressive disorder, without psychotic features F33.2 [place] [address] [address] Mar, [place] [address] [address] Feb, Chronic pain syndrome G89.4 [place] [address] [id number] [address] [place] [address] Feb, Acute non-recurrent maxillar y sinusitis J01.00 [facility] [address] [facility] [id number] [address] [place] [address] Feb, Acute non-recurrent frontal sinusitis J01.10 [facility] [address] [facility] [id number] [address] [place] [address] Feb, Chronic pain syndrome G89.4 [facility] [address] [id number] [address] [place] [address] January, Acute cystitis with hematuri a N30.01 [place] [address] [facility] [id number] [address] [place] [address] January, Acute cystitis with hematuri a N30.01 ; Dysuria R30.0 and Moderate persistent asthma with acute exacerbation J45.41 [place] [address] [facility] [id number] [address] [place] [address] January, [place] [address] [facility] [id number] [address] [place] [address] January, Chronic pain syndrome G89.4 [place] [address] [facility] [id number] [address] [place] [address] January, Asthma exacerbation J45.901 [place] [address] [facility] [id number] [address] [place] [address] January, Asthma exacerbation J45.901 [place] [address] [facility] [id number] [address] [place] [address] Dec, Cough R05 ; Numbness in both hands R20.0 ; Ground glass opacity present on imaging of lung R91.8 ; Hypoxia R09.02 and Asthma exacerbation J45.901 [facility] [address] [facility] [id number] [address] [place] [address] Dec, Chronic pain syndrome G89.4 [facility] [address] [place] [id number] [address] [place] [address] Nov, Chronic prescription opiate use Z79.899 ; Rheumatoid arthritis involving multiple sites with positive rheumatoid factor M05.89 ; Moderate persistent asthma with acute exacerbation J45.41 ; Pneumonia of right lower lobe due to infectious organism J18.1 ; Chronic pain syndrome G89.4 ; Gastroesophageal reflux disease, esophagitis presence not specified K21.9 and Hyperlipidemia, unspecified hyperlipidemia E78.5 [facility] [address] [address] Nov, Rheumatoid arthritis involvi ng multiple sites with positive rheumatoid factor M05.89 [place] [address] [address] Oct, [place] [address] [address] Oct, Essential hypertension I10 [address] [address] Sep, Hypoxia R09.02 and Ground gl ass opacity present on imaging of lung R91.8 [place] [address] [address] Sep, Moderate persistent asthma w ith acute exacerbation J45.41 [facility] [address] [id number] Sep, [facility] [address] [place] [id number] [place] [address] Sep, Chronic constipation K59.00 and Moderate persistent asthma with acute exacerbation J45.41 [facility] [address] [place] [id number] [address] [place] [address] Sep, Moderate persistent asthma w ith acute exacerbation J45.41 [facility] [address] [place] [id number] [address] [place] [address] Aug, [facility] [address] [address] Aug, [facility] [address] [facility] [id number] [address] [place] [address] Aug, [facility] [address] [facility] [id number] [address] [place] [address] Aug, Rheumatoid arthritis involvi ng multiple sites with positive rheumatoid factor M05.89 ; Essential hypertension I10 ; Hyperlipidemia, unspecified hyperlipidemia E78.5 ; Chronic constipation K59.00 and Moderate persistent asthma with acute exacerbation J45.41 [facility] [address] [place] [id number] [address] [place] [address] Aug, Bronchitis J40 [facility] [address] [place] [id number] [place] [address] Aug, Rheumatoid arthritis involvi ng multiple sites with positive rheumatoid factor M05.89 [place] [address] [address] Aug, Pharyngitis, unspecified pablito ology J02.9 and Acute nasopharyngitis J00 [facility] [address] [place] [address] Aug, [facility] [address] [place] [id number] [place] [address] Jul, [facility] [address] [place] [id number] [place] [address] Jul, Rheumatoid arthritis involvi ng multiple sites with positive rheumatoid factor M05.89 ; Essential hypertension I10 ; Hyperlipidemia, unspecified hyperlipidemia E78.5 ; Rash R21 ; Mild persistent asthma with acute exacerbation J45.31 ; Hematuria R31.9 ; Osteoporosis M81.0 and Gastroesophageal reflux disease, esophagitis presence not specified K21.9 [facility] [address] [place] [id number] [address] [place] [address] Jun, [facility] [address] [place] [id number] [place] [address] Jun, Dysuria R30.0 [facility] [address] [address] 05 Jun, 2016 Acute non-recurrent maxillar y sinusitis J01.00 and Dysuria R30.0 [place] [address] [id number] 16 May, 2016 [place] [address] [address] 15 May, 2016 [place] [address] [address] Apr, Chronic prescription opiate use Z79.899 and Rheumatoid arthritis involving multiple sites with positive rheumatoid factor M05.89 [place] [address] [address] Mar, [place] [address] [address] Feb, Dizziness of unknown cause R 42 and Other chronic pain G89.29 [place] [address] [address] Feb, [place] [address] [address] Feb, Shortness of breath R06.02 [place] [address] [address] January, [place] [address] [address] January, Rheumatoid arthritis involvi ng multiple sites with positive rheumatoid factor M05.89 ; Chronic prescription opiate use Z79.899 ; Hyperlipidemia, unspecified hyperlipidemia E78.5 ; Cough R05 ; Exposure to pneumonia Z20.828 ; Diarrhea, unspecified type R19.7 ; Weight loss R63.4 ; Lumbago with sciatica, right side M54.41 and Lumbago with sciatica, left side M54.42 [place] [address] [address] Dec, [place] [address] [id number] [address] [place] [address] Dec, Bronchitis J40 [facility] [address] [facility] [id number] [address] [place] [address] Nov, [facility] [address] [id number] [address] [place] [address] Nov, [facility] [address] [facility] [id number] [address] [place] [address] Nov, [facility] [address] [id number] [address] [place] [address] Nov, Bloody diarrhea R19.7 ; [place] n wall thickening K63.9 ; Shortness of breath R06.02 and Bladder wall thickening N32.89 [facility] [id number] [place] [id number] 15 Oct, 2015 Dental examination Z01.20 [facility] [address] [facility] [id number] [address] [place] [address] 15 Oct, 2015 [facility] [address] [id number] [address] [place] [address] 15 Oct, 2015 Toothache K08.8 [facility] [address] [id number] [address] [place] [id number] 11 Oct, 2015 Dental examination Z01.20 [facility] [address] [facility] [id number] [address] [place] [address] 02 Oct, 2015 [facility] [address] [id number] [address] [place] [address] Sep, [facility] [address] [facility] [id number] [address] [place] [address] 13 Sep, 2015 Burning with urination R30.0 [facility] [address] [facility] [id number] [address] [place] [address] 12 Sep, 2015 Hematuria R31.9 ; Rheumatoid arthritis involving multiple sites with positive rheumatoid factor M05.89 and Rheumatoid arthritis flare M06.9 [facility] [address] [id number] [address] [place] [address] Aug, Hyperlipidemia, unspecified hyperlipidemia E78.5 and Hematuria R31.9 [facility] [address] [id number] [address] [place] [address] Aug, Hematuria R31.9 ; Chronic ki dney disease, stage 1 N18.1 and Hyperlipidemia, unspecified hyperlipidemia E78.5 [place] [address] [id number] [address] [place] [address] Aug, Rheumatoid arthritis involvi ng multiple sites with positive rheumatoid factor M05.89 ; Asthma exacerbation J45.901 ; Hematuria R31.9 ; Hyperlipidemia, unspecified hyperlipidemia E78.5 and Chronic kidney disease, stage 1 N18.1 [place] [address] [id number] [address] [place] [address] Aug, [place] [address] [id number] [address] [place] [address] Jul, [place] [address] [id number] [address] [place] [address] Jul, Lumbosacral radiculopathy M5 4.17 [place] [address] [id number] [address] [place] [address] Jul, [place] [address] [id number] [address] [place] [address] Jun, Rheumatoid arthritis involvi ng multiple sites with positive rheumatoid factor M05.89 ; Hyperlipidemia, unspecified hyperlipidemia E78.5 ; Lumbosacral radiculopathy M54.17 ; Carpal tunnel syndrome, right upper limb G56.01 and Carpal tunnel syndrome, left upper limb G56.02 [facility] [address] [id number] [address] [place] [address] Jun, [place] [address] [id number] [address] [place] [address] May, Lumbar radicular pain 724.4 and Dysuria 788.1 [facility] [address] [id number] [address] [place] [address] May, Rheumatoid arthritis 714.0 ; Lumbar radicular pain 724.4 ; Burn 949.0 and Thoracic back pain 724.1 [facility] [address] [id number] [address] [place] [address] May, [facility] [address] [id number] [address] [place] [address] May, [facility] [address] [id number] [address] [place] [address] Apr, [facility] [address] [facility] [id number] [address] [place] [address] Mar, Hyperlipidemia 272.4 [facility] [address] [facility] [id number] [address] [place] [address] Mar, [facility] [address] [facility] [id number] [address] [place] [address] Mar, [facility] [address] [facility] [id number] [address] [place] [address] Mar, Diarrhea 787.91 ; Chronic ki dney disease, unspecified 585.9 ; Hyperlipidemia 272.4 and Asthma 493.90 [facility] [address] [facility] [id number] [address] [place] [address] Mar, [facility] [address] [facility] [id number] [address] [place] [address] Mar, Gastroenteritis 558.9 [facility] [address] [facility] [id number] [address] [place] [address] Feb, [facility] [address] [facility] [id number] [address] [place] [address] January, [facility] [address] [facility] [id number] [address] [place] [address] January, [facility] [address] [id number] [address] [place] [address], [place] [address] 14 Dec, 2014 [facility] [address] [id number] [address] [place] [address], [place] [address] Dec, [facility] [address] [id number] [address] [place] [address], [place] [address] 20 Nov, 2014 [facility] [address] [id number] [address] [place] [address], [place] [address] 20 Nov, 2014 [facility] [address] [id number] [address] [place] [address], [place] [address] Nov, [facility] [address] [id number] [address] [place] [address], [place] [address] Nov, [facility] [address] [id number] [address] [place] [address], [place] [address] Nov, [facility] [address] [id number] [address] [place] [address], [place] [address] Nov, [facility] [address] [id number] [address] [place] [address], [place] [address] Oct, [facility] [address] [id number] [address] [place] [address], [place] [address] Oct, [facility] [address] [id number] [address] [place] [address], [place] [address] Sep, [facility] [address] [id number] [address] [place] [address], [place] [address] Sep, [facility] [address] [id number] [address] [place] [address], [place] [address] Sep, [facility] [address] [id number] [address] [place] [address], [place] [address] Sep, [facility] [address] [id number] [address] [place] [address], [place] [address] Sep, [facility] [address] [id number] [address] [place] [address], [place] [address] Sep, [facility] [address] [id number] [address] [place] [address], [place] [address] Aug, [facility] [address] [id number] [address] [place] [address], [place] [address] Aug, [facility] [address] [id number] [address] [place] [address], [place] [address] Aug, [facility] [address] [id number] [address] [place] [address], [place] [address] Aug, [facility] [address] [id number] [address] [place] [address], [place] [address] Jul, [facility] [address] [id number] [address] [place] [address], [place] [address] Jul, [facility] [address] [id number] [address] [place] [address], [place] [address] Jul, [facility] [address] [id number] [address] [place] [address], [place] [address] Jul, [facility] [address] [id number] [address] [place] [address], [place] [address] Jul, [facility] [address] [id number] [address] [place] [address], [place] [address] Jul, [facility] [address] [id number] [address] [place] [address], [place] [address] Jul, [facility] [address] [id number] [address] [place] [address], [place] [address] Jul, [facility] [address] [id number] [address] [place] [address], [place] [address] Jul, [facility] [address] [address] [id number] [address] [place] [address], [place] [address] Jun, [facility] [address] [id number] [address] [place] [address], [place] [address] 15 Jun, 2014 [facility] [address] [id number] [address] [place] [address], [place] [address] 15 Jun, 2014 [facility] [address] [id number] [address] [place] [address], [place] [address] 25 Sep, 2013 [facility] [address] [id number] [address] [place] [address], [place] [address] 25 Sep, 2013 [facility] [address] [id number] [address] [place] [address], [place] [address] 24 Sep, 2013 [facility] [address] [id number] [address] [place] [address], [place] [address] 24 Sep, 2013 [facility] [address] [id number] [address] [place] [address], [place] [address] 24 May, 2013 [facility] [address] [id number] [address] [place] [address], [place] [address] 24 May, 2013 [facility] [address] [id number] [address] [place] [address], [place] [address] 19 May, 2013 [facility] [address] [id number] [address] [place] [address], [place] [address] 19 May, 2013 [facility] [address] [id number] [address] [place] [address], [place] [address] 11 May, 2013 [facility] [address] [id number] [address] [place] [address], [place] [address] 11 May, 2013 [facility] [address] [id number] [address] [place] [address], [place] [address] 11 May, 2013 [facility] [address] [id number] [address] [place] [address], [place] [address] 11 May, 2013 [facility] [address] [id number] [address] [place] [address], [place] [address] 10 May, 2013 [facility] [address] [id number] [address] [place] [address], [place] [address] 09 Sep, 2013 [facility] [address] [id number] [address] [place] [address], [place] [address] May, [facility] [address] [facility] [id number] [address] [place] [phone] May, [facility] [address] [facility] [id number] [address] [place] [phone] Apr, [facility] [address] [facility] [id number] [address] [place] [phone] Apr, [facility] [address] [facility] [id number] [address] [place] [phone] Aug, [facility] [address] [facility] [id number] [address] [place] [phone] Jul, IMMUNIZATIONS No Known Immunizations SOCIAL HISTORY Never Assessed REASON FOR VISIT Cough, Congestion-awoods, fell on and was seen at [facility] Wednesday and i s here to /u-sofia PLAN OF CARE Activity Details Follow Up after Pulmonology visit Reas on: VITAL SIGNS Height 66 in 2018-03-22 Weight 174.5 lbs 2018-03-22 Temperature 98.1 degrees Fahrenheit 2018-03-22 Heart Rate 116 bpm 2018-03-22 Respiratory Rate 24 2018-03-22 Oximetry 94 % 2018-03-22 BMI 28.16 kg/m2 2018-03-22 Blood pressure systolic 130 mmHg 2018-03-22 Blood pressure diastolic 84 mmHg 2018-03-22 MEDICATIONS Medication Instructions Dosage Frequency Start Date End Date Duration S tatus Singulair 10 MG Orally Once a day 1 tablet 24h Active Bystolic 10 mg Orally 2 times a day 1 tablet 12h 90 days Active Ipratropium-Albuterol 0.5-2.5 (3) MG/3ML Inhalation every 6 hrs 3 ml as needed 6h Active Omeprazole 40 mg Orally Once a day 1 capsule 24h Jul, 90 days Active Cyclobenzaprine HCl 10 MG TAKE ONE TABLE T BY MOUTH THREE TIMES DAILY NEEDED 90 Active Breo Ellipta 200-25 MCG/INH Inhalation Once a day 1 puff 24h Active Leflunomide 20 MG Orally Once a day 1 tablet 24h Active Incruse Ellipta 62.5 MCG/INH Inhalation Once a day 1 puff 24h Active Benzonatate 200 mg Orally Three times a day 1 capsule as needed 8h January, Apr, 30 days Active Cymbalta 60 mg Orally Once a day 1 capsule 24h Apr, 90 days Active PredniSONE 10 mg Orally Once a day 4 [id number], 3 tabsq dx7d, 2 [id number], 1 oqcokh3f, 1/2ambqdc0k 24h Mar, Apr, 35 days Active ProAir HFA 108 (90 Base) MCG/ACT Inhalation every 4 hrs 2 puffs as needed 4h Mar, Active Simvastatin 40 mg Orally Once a day 1 tablet in the evening 24h Mar, 90 days Active Cetirizine HCl 10 mg Orally Once a day 1 tablet 24h Mar, 8 Aug, 30 day(s) Active Gabapentin 400 mg Orally Three times a day 2 capsules 8h Dec, Active Tylenol Arthritis Pain by oral route 2 times a day 2tablets 12h Active OxyContin 15 mg Orally every 12 hrs 1 tablet 12h Feb, 28 days Active Guaifenesin 400 mg Orally every 4 hrs 1 tablet as needed 4h January, 30 days Active Ibuprofen 200 MG Orally every 4-6 hours as needed 2 tablets Active Flonase 50 MCG/ACT Nasally Once a [...] History section x 2 Surgical History otolaryngologic surgery-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
--- OUTSIDE RECORDS SUMMARY | 2020-02-27 15:47 | XMS REPORT ---
Author Author Beba SMALL Organization [facility] Address [address] [place] [address] Care Team Providers Care Cottrell Blower Name Role Phone MIKEY SMALL Unavailable PROBLEMS Type Condition ICD9-CM Code OPG18-UA Code Onset Dates Condition S tatus SNOMED Code Problem Osteoporosis M81.0 Active 4967265 [id number] Problem Chronic pain syndrome G89.4 Active 792781911 Problem Moderate persistent asthma with acute exacerbation J45.41 Active 312737360011429 Problem Lumbago with sciatica, right side M54.41 Active 924043990696274 Problem Chronic constipation K59.00 Active 949127882 Problem Lumbago with sciatica, left side M54.42 Active 530204534 Problem Chronic kidney disease, stage 1 N18.1 Active 584810036 Problem Severe episode of recurrent major depressive disorder, without psychotic features F33.2 Active 28866303 Problem Asthma exacerbation J45.901 Active 947143012 Problem Moderate persistent asthma without complication J4 5.40 Active 344197400 Problem Generalized anxiety disorder F41.1 A ctive 65326411 Problem Pernicious anemia D51.0 Active 84 589676 Problem Hyperlipidemia, unspecified hyperlipidemia E78.5 Active 99227740 Problem Essential hypertension I10 Active 26296095 Problem Vitamin D deficiency E55.9 Active 84031604 Problem Chronic prescription opiate use Z79.899 Active 629239575 Problem Colon wall thickening K63.9 Active 973037129 Problem Rheumatoid arthritis involvi ng multiple sites with positive rheumatoid factor M05.89 Active 838513375 Problem Bladder wall thickening N32.89 Active 353659974 Problem Atrophy of left kidney N26.1 Active 091905568 Problem Gastroesophageal reflux disease, esophagitis pre sence not specified K21.9 Active 718066555 ALLERGIES Substance Reaction Event Type Date Status Penicillin V Potassium Cannot tolerate Oral PCN. St ates she can tolerate injections Drug Allergy Feb, Active Orencia Unknown Drug Allergy Feb, Active Cipro Unknown Drug Allergy Feb, Active Codeine Unknown Drug Allergy Feb, Active Ivp Dye anaphylaxis Non Drug Allergy Feb, Active ENCOUNTERS Encounter Location Date Diagnosis [facility] [address] [facility] [id number] [address] [place] [address] Apr, Chronic pain syndrome G89.4 [facility] [address] [facility] [id number] [address] [place] [address] Mar, High ankle sprain of right l ower extremity, subsequent encounter S93.431D ; Lumbago with sciatica, left side M54.42 and Lumbago with sciatica, right side M54.41 [facility] [address] [facility] [id number] [address] [place] [address] Mar, [facility] [address] [facility] [id number] [address] [place] [address] Mar, Chronic pain syndrome G89.4 [facility] [address] [facility] [id number] [address] [place] [address] Mar, [facility] [address] [facility] [id number] [address] [place] [address] Mar, Asthma exacerbation J45.901 and Sprain of right ankle, unspecified ligament, subsequent encounter S93.401D [facility] [address] [facility] [id number] [address] [place] [address] Feb, Injury of right ankle, initi al encounter S99.911A [facility] [address] [facility] [id number] [address] [place] [address] Feb, Chronic pain syndrome G89.4 [facility] [address] [facility] [id number] [address] [place] [address] Feb, Chronic pain syndrome G89.4 [facility] [address] [facility] [id number] [address] [place] [address] Feb, Moderate persistent asthma w ith acute exacerbation J45.41 and Persistent cough for 3 weeks or longer R05 [place] [address] [facility] [id number] [address] [place] [address] January, [place] [address] [place] [id number] [address] [place] [address] January, Moderate persistent asthma w ith acute exacerbation J45.41 [place] [address] [place] [id number] [address] [place] [address] January, Chronic pain syndrome G89.4 [place] [address] [place] [id number] [address] [place] [address] January, Tachycardia R00.0 and Modera te persistent asthma with acute exacerbation J45.41 [place] [address] [address] 11 Jan, 2018 Tachycardia R00.0 ; Moderate persistent asthma with acute exacerbation J45.41 ; Gastroesophageal reflux disease, esophagitis presence not specified K21.9 ; Hyperlipidemia, unspecified hyperlipidemia E78.5 and Chronic pain syndrome G89.4 [place] [id number] [place] [address] Dec, Medicare annual wellness vis it, initial [...] immunization Z23 and Chronic pain syndrome G89.4 [place] [address] [facility] [id number] [address] [place] [address] Dec, Chronic pain syndrome G89.4 [place] [address] [place] [id number] [address] [place] [address] Dec, [place] [address] [place] [id number] [address] [place] [address] Nov, [place] [address] [place] [id number] [address] [place] [address] Nov, Chronic pain syndrome G89.4 [facility] [address] [facility] [id number] [address] [place] [address] Oct, Chronic pain syndrome G89.4 [facility] [address] [place] [id number] [address] [place] [address] Oct, Chronic kidney disease, stag e 1 N18.1 [facility] [address] [facility] [id number] [address] [place] [address] Oct, Chronic prescription opiate use Z79.899 ; Cough R05 ; Asthma exacerbation J45.901 ; Elevated liver enzymes R74.8 ; Rheumatoid arthritis involving multiple sites with positive rheumatoid factor M05.89 and Chronic pain syndrome G89.4 [place] [address] [place] [id number] [address] [place] [address] Sep, Chronic pain syndrome G89.4 [place] [address] [place] [id number] [address] [place] [address] Sep, [place] [address] [place] [id number] [address] [place] [address] Aug, Acute bronchitis, unspecifie d organism J20.9 [place] [address] [place] [id number] [address] [place] [address] Aug, Chronic pain syndrome G89.4 [place] [address] [facility] [id number] [address] [place] [address] Jul, Chronic pain syndrome G89.4 [facility] [address] [facility] [id number] [address] [place] [address] Jun, Chronic pain syndrome G89.4 [facility] [address] [place] [id number] [address] [place] [address] May, Rheumatoid arthritis involvi ng multiple sites with positive rheumatoid factor M05.89 [facility] [address] [place] [id number] [address] [place] [address] May, Gastroesophageal reflux dise ase, esophagitis presence not specified K21.9 and Chronic pain syndrome G89.4 [facility] [address] [place] [id number] [address] [place] [address] May, [place] [address] [place] [id number] [place] [address] May, Chronic kidney disease, stag e 1 N18.1 and Esophageal candidiasis B37.81 [place] [address] [place] [id number] [address] [place] [address] May, Chronic kidney disease, stag e 1 N18.1 [place] [address] [place] [id number] [place] [address] May, Cough R05 ; Fever, unspecifi ed fever cause R50.9 ; Rheumatoid arthritis involving multiple sites with positive rheumatoid factor M05.89 and Chronic prescription opiate use Z79.899 [place] [address] [place] [address] Apr, [place] [address] [address] Apr, Cough R05 [place] [address] [address] Apr, Asthma exacerbation J45.901 [place] [address] [place] [id number] [address] [place] [address] Apr, [place] [address] [address] Apr, Generalized anxiety disorder F41.1 and Severe episode of recurrent major depressive disorder, without psychotic features F33.2 [place] [address] [place] [id number] [address] [place] [address] Mar, [place] [address] [place] [id number] [address] [place] [address] Feb, Chronic pain syndrome G89.4 [place] [address] [id number] [address] [place] [address] Feb, Acute non-recurrent maxillar y sinusitis J01.00 [facility] [address] [facility] [id number] [address] [place] [address] Feb, Acute non-recurrent frontal sinusitis J01.10 [facility] [address] [facility] [id number] [address] [place] [address] Feb, Chronic pain syndrome G89.4 [facility] [address] [id number] [address] [place] [address] January, Acute cystitis with hematuri a N30.01 [facility] [address] [facility] [id number] [address] [place] [address] January, Acute cystitis with hematuri a N30.01 ; Dysuria R30.0 and Moderate persistent asthma with acute exacerbation J45.41 [place] [address] [facility] [id number] [address] [place] [address] January, [facility] [address] [facility] [id number] [address] [place] [address] January, Chronic pain syndrome G89.4 [facility] [address] [facility] [id number] [address] [place] [address] January, Asthma exacerbation J45.901 [facility] [address] [facility] [id number] [address] [place] [address] January, Asthma exacerbation J45.901 [facility] [address] [facility] [id number] [address] [place] [address] Dec, Cough R05 ; Numbness in both hands R20.0 ; Ground glass opacity present on imaging of lung R91.8 ; Hypoxia R09.02 and Asthma exacerbation J45.901 [facility] [address] [facility] [id number] [address] [place] [address] Dec, Chronic pain syndrome G89.4 [facility] [address] [address] Nov, Chronic prescription opiate use Z79.899 ; Rheumatoid arthritis involving multiple sites with positive rheumatoid factor M05.89 ; Moderate persistent asthma with acute exacerbation J45.41 ; Pneumonia of right lower lobe due to infectious organism J18.1 ; Chronic pain syndrome G89.4 ; Gastroesophageal reflux disease, esophagitis presence not specified K21.9 and Hyperlipidemia, unspecified hyperlipidemia E78.5 [place] [address] [address] Nov, Rheumatoid arthritis involvi ng multiple sites with positive rheumatoid factor M05.[address] [address] Oct, [place] [address] [address] Oct, Essential hypertension I10 [address] [address] Sep, Hypoxia R09.02 and Ground gl ass opacity present on imaging of lung R91.8 [place] [address] [address] Sep, Moderate persistent asthma w ith acute exacerbation J45.41 [facility] [address] [id number] Sep, [place] [address] [address] Sep, Chronic constipation K59.00 and Moderate persistent asthma with acute exacerbation J45.41 [place] [address] [place] [id number] [address] [place] [address] Sep, Moderate persistent asthma w ith acute exacerbation J45.41 [place] [address] [place] [id number] [address] [place] [address] Aug, [place] [address] [address] Aug, [facility] [address] [facility] [id number] [address] [place] [address] Aug, [facility] [address] [place] [id number] [address] [place] [address] Aug, Rheumatoid arthritis involvi ng multiple sites with positive rheumatoid factor M05.89 ; Essential hypertension I10 ; Hyperlipidemia, unspecified hyperlipidemia E78.5 ; Chronic constipation K59.00 and Moderate persistent asthma with acute exacerbation J45.41 [facility] [address] [place] [id number] [address] [place] [address] Aug, Bronchitis J40 [place] [address] [place] [id number] [place] [address] Aug, Rheumatoid arthritis involvi ng multiple sites with positive rheumatoid factor M05.89 [place] [address] [address] Aug, Pharyngitis, unspecified pablito ology J02.9 and Acute nasopharyngitis J00 [facility] [address] [place] [address] Aug, [facility] [address] [place] [id number] [address] [place] [address] Jul, [facility] [address] [place] [id number] [place] [address] Jul, Rheumatoid arthritis involvi ng multiple sites with positive rheumatoid factor M05.89 ; Essential hypertension I10 ; Hyperlipidemia, unspecified hyperlipidemia E78.5 ; Rash R21 ; Mild persistent asthma with acute exacerbation J45.31 ; Hematuria R31.9 ; Osteoporosis M81.0 and Gastroesophageal reflux disease, esophagitis presence not specified K21.9 [facility] [address] [place] [id number] [address] [place] [address] Jun, [facility] [address] [place] [id number] [address] [place] [address] Jun, Dysuria R30.0 [facility] [address] [address] 05 Jun, 2016 Acute non-recurrent maxillar y sinusitis J01.00 and Dysuria R30.0 [place] [address] [address] 16 May, 2016 [place] [address] [address] 15 May, 2016 [place] [address] [address] Apr, Chronic prescription opiate use Z79.899 and Rheumatoid arthritis involving multiple sites with positive rheumatoid factor M05.89 [place] [address] [address] Mar, [place] [address] [address] Feb, Dizziness of unknown cause R 42 and Other chronic pain G89.29 [place] [address] [address] Feb, [place] [address] [address] Feb, Shortness of breath R06.02 [place] [address] [address] January, [place] [address] [address] January, Rheumatoid arthritis involvi ng multiple sites with positive rheumatoid factor M05.89 ; Chronic prescription opiate use Z79.899 ; Hyperlipidemia, unspecified hyperlipidemia E78.5 ; Cough R05 ; Exposure to pneumonia Z20.828 ; Diarrhea, unspecified type R19.7 ; Weight loss R63.4 ; Lumbago with sciatica, right side M54.41 and Lumbago with sciatica, left side M54.42 [place] [address] [address] Dec, [place] [address] [id number] [address] [place] [address] Dec, Bronchitis J40 [facility] [address] [facility] [id number] [address] [place] [address] Nov, [facility] [address] [id number] [address] [place] [address] Nov, [facility] [address] [facility] [id number] [address] [place] [address] Nov, [facility] [address] [id number] [address] [place] [address] Nov, Bloody diarrhea R19.7 ; [place] n wall thickening K63.9 ; Shortness of breath R06.02 and Bladder wall thickening N32.89 [facility] [address] [place] [id number] 15 Oct, 2015 Dental examination Z01.20 [facility] [address] [facility] [id number] [address] [place] [address] 15 Oct, 2015 [facility] [address] [id number] [address] [place] [address] Oct, Toothache K08.8 [facility] [address] [id number] [address] [place] [id number] 11 Oct, 2015 Dental examination Z01.20 [facility] [address] [facility] [id number] [address] [place] [address] 02 Oct, 2015 [facility] [address] [facility] [id number] [address] [place] [address] Sep, [facility] [address] [facility] [id number] [address] [place] [address] 13 Sep, 2015 Burning with urination R30.0 [facility] [address] [facility] [id number] [address] [place] [address] 12 Sep, 2015 Hematuria R31.9 ; Rheumatoid arthritis involving multiple sites with positive rheumatoid factor M05.89 and Rheumatoid arthritis flare M06.9 [facility] [address] [id number] [address] [place] [address] Aug, Hyperlipidemia, unspecified hyperlipidemia E78.5 and Hematuria R31.9 [facility] [address] [id number] [address] [place] [address] Aug, Hematuria R31.9 ; Chronic ki dney disease, stage 1 N18.1 and Hyperlipidemia, unspecified hyperlipidemia E78.5 [place] [address] [id number] [address] [place] [address] Aug, Rheumatoid arthritis involvi ng multiple sites with positive rheumatoid factor M05.89 ; Asthma exacerbation J45.901 ; Hematuria R31.9 ; Hyperlipidemia, unspecified hyperlipidemia E78.5 and Chronic kidney disease, stage 1 N18.1 [place] [address] [id number] [address] [place] [address] Aug, [place] [address] [id number] [address] [place] [address] Jul, [place] [address] [id number] [address] [place] [address] Jul, Lumbosacral radiculopathy M5 4.17 [facility] [address] [id number] [address] [place] [address] Jul, [place] [address] [id number] [address] [place] [address] Jun, Rheumatoid arthritis involvi ng multiple sites with positive rheumatoid factor M05.89 ; Hyperlipidemia, unspecified hyperlipidemia E78.5 ; Lumbosacral radiculopathy M54.17 ; Carpal tunnel syndrome, right upper limb G56.01 and Carpal tunnel syndrome, left upper limb G56.02 [facility] [address] [id number] [address] [place] [address] Jun, [place] [address] [id number] [address] [place] [address] May, Lumbar radicular pain 724.4 and Dysuria 788.1 [facility] [address] [id number] [address] [place] [address] May, Rheumatoid arthritis 714.0 ; Lumbar radicular pain 724.4 ; Burn 949.0 and Thoracic back pain 724.1 [facility] [address] [id number] [address] [place] [address] May, [facility] [address] [id number] [address] [place] [address] May, [facility] [address] [id number] [address] [place] [address] Apr, [facility] [address] [facility] [id number] [address] [place] [address] Mar, Hyperlipidemia 272.4 [facility] [address] [place] [id number] [address] [place] [address] Mar, [facility] [address] [facility] [id number] [address] [place] [address] Mar, [facility] [address] [place] [id number] [address] [place] [address] Mar, Diarrhea 787.91 ; Chronic ki dney disease, unspecified 585.9 ; Hyperlipidemia 272.4 and Asthma 493.90 [facility] [address] [facility] [id number] [address] [place] [address] Mar, [facility] [address] [facility] [id number] [address] [place] [address] Mar, Gastroenteritis 558.9 [facility] [address] [facility] [id number] [address] [place] [address] Feb, [facility] [address] [facility] [id number] [address] [place] [address] January, [facility] [address] [facility] [id number] [address] [place] [address] January, [facility] [address] [id number] [address] [place] [address], [place] [address] 14 Dec, 2014 [facility] [address] [id number] [address] [place] [address], [place] [address] Dec, [facility] [address] [id number] [address] [place] [address], [place] [address] 20 Nov, 2014 [facility] [address] [id number] [address] [place] [address], [place] [address] 20 Nov, 2014 [facility] [address] [id number] [address] [place] [address], [place] [address] Nov, [facility] [address] [id number] [address] [place] [address], [place] [address] Nov, [facility] [address] [id number] [address] [place] [address], [place] [address] Nov, [facility] [address] [id number] [address] [place] [address], [place] [address] Nov, [facility] [address] [id number] [address] [place] [address], [place] [address] Oct, [facility] [address] [id number] [address] [place] [address], [place] [address] Oct, [facility] [address] [id number] [address] [place] [address], [place] [address] Sep, [facility] [address] [id number] [address] [place] [address], [place] [address] Sep, [facility] [address] [id number] [address] [place] [address], [place] [address] Sep, [facility] [address] [id number] [address] [place] [address], [place] [address] Sep, [facility] [address] [id number] [address] [place] [address], [place] [address] Sep, [facility] [address] [id number] [address] [place] [address], [place] [address] Sep, [facility] [address] [id number] [address] [place] [address], [place] [address] Aug, [facility] [address] [id number] [address] [place] [address], [place] [address] Aug, [facility] [address] [id number] [address] [place] [address], [place] [address] Aug, [facility] [address] [id number] [address] [place] [address], [place] [address] Aug, [facility] [address] [id number] [address] [place] [address], [place] [address] Jul, [facility] [address] [id number] [address] [place] [address], [place] [address] Jul, [facility] [address] [id number] [address] [place] [address], [place] [address] Jul, [facility] [address] [id number] [address] [place] [address], [place] [address] Jul, [facility] [address] [id number] [address] [place] [address], [place] [address] Jul, [facility] [address] [id number] [address] [place] [address], [place] [id number] Jul, [facility] [address] [id number] [address] [place] [address], [place] [address] Jul, [facility] [address] [id number] [address] [place] [id number] Jul, [facility] [address] [id number] [address] [place] [address], [place] [id number] Jul, [facility] [address] [id number] [address] [place] [address], [place] [address] Jun, [facility] [address] [id number] [address] [place] [address], [place] [address] 15 Jun, 2014 [facility] [address] [id number] [address] [place] [address], [place] [address] 15 Jun, 2013 [facility] [address] [id number] [address] [place] [address], [place] [address] 25 Sep, 2013 [facility] [address] [id number] [address] [place] [address], [place] [address] 25 Sep, 2013 [facility] [address] [id number] [address] [place] [address], [place] [address] 24 Sep, 2013 [facility] [address] [id number] [address] [place] [address], [place] [address] 24 Sep, 2013 [facility] [address] [id number] [address] [place] [address], [place] [address] 24 Sep, 2013 [facility] [address] [id number] [address] [place] [address], [place] [address] 24 Sep, 2013 [facility] [address] [id number] [address] [place] [address], [place] [address] 19 Sep, 2013 [facility] [address] [id number] [address] [place] [address], [place] [address] 19 Sep, 2013 [facility] [address] [id number] [address] [place] [address], [place] [address] 11 May, 2013 [facility] [address] [id number] [address] [place] [address], [place] [address] 11 May, 2013 [facility] [address] [id number] [address] [place] [address], [place] [address] 11 Sep, 2013 [facility] [address] [id number] [address] [place] [address], [place] [address] 11 Sep, 2013 [facility] [address] [id number] [address] [place] [address], [place] [address] 10 Sep, 2013 [facility] [address] [id number] [address] [place] [address], [place] [address] 09 Sep, 2013 [facility] [address] [id number] [address] [place] [address], [place] [address] May, [facility] [address] [facility] [id number] [address] [place] [id number] May, [facility] [address] [id number] [address] [place] [id number] Apr, [facility] [address] [facility] [id number] [address] [place] [id number] Apr, [facility] [address] [facility] [id number] [address] [place] [id number] Aug, [facility] [address] [facility] [id number] [address] [place] [id number] Jul, IMMUNIZATIONS No Known Immunizations SOCIAL HISTORY Never Assessed REASON FOR VISIT Right ankle pain- fell yesterday JStrasserRN PLAN OF CARE Activity Details Follow Up w/ PCP pending X-ray results Reason:right ankle injury VITAL SIGNS Height 66 in 2018-03-19 Weight 150.0 lbs 2018-03-19 Temperature 99.1 degrees Fahrenheit 2018-03-19 Heart Rate 76 bpm 2018-03-19 Respiratory Rate 22 2018-03-19 BMI 24.21 kg/m2 2018-03-19 Blood pressure systolic 156 mmHg 2018-03-19 Blood pressure diastolic 94 mmHg 2018-03-19 MEDICATIONS Medication Instructions Dosage Frequency Start Date End Date Duration S tatus Bystolic 10 mg Orally 2 times a day 1 tablet 12h 90 days Active Gabapentin 400 mg Orally Three times a day 2 capsules 8h Dec, Active ProAir HFA 108 (90 Base) MCG/ACT Inhalation every 4 hrs 2 puffs as needed 4h Mar, Active Symbicort 160-4.5 MCG/ACT Inhalation Twice a day 2 puffs 12h Active Singulair 10 MG Orally Once a day 1 tablet 24h Active Cyclobenzaprine HCl 10 MG TAKE ONE TABLE T BY MOUTH THREE TIMES DAILY NEEDED 90 Active Cymbalta 60 mg Orally Once a day 1 capsule 24h Apr, 90 days Active Leflunomide 20 MG Orally Once a day 1 tablet 24h Active Simvastatin 40 mg Orally Once a day 1 tablet in the evening 24h Mar, 90 days Active Omeprazole 40 mg Orally Once a day 1 capsule 24h Jul, 90 days Active PredniSONE 20 mg Orally Once a day 3 tabs x 5 days 2 ta bs x 5 days then 1 tab x 5 days 24h 15 Feb, 2018 Feb, 15 days Active Ipratropium-Albuterol 0.5-2.5 (3) MG/3ML Inhalation every 6 hrs 3 ml as needed 6h Active Tylenol Arthritis Pain by oral route 2 times a day 2tablets 12h Active Ibuprofen 200 MG Orally every 4-6 hours as needed 2 tablets Active OxyContin 15 mg Orally every 12 hrs 1 tablet 12h 22 Feb, 2018 28 days Active RESULTS Name Result Date Reference Range Xray : Ankle, Right PROCEDURES No Known procedures INSTRUCTIONS MEDICATIONS ADMINISTERED No Known Medications MEDICAL (GENERAL) HISTORY Type Description Date Medical History hypertension Medical History osteoporosis Medical History rheumatoid arthritis Medical History Heart infection Medical History Rheumatic or Scarlet Fever Medical History Pneumonia Medical History Bronchitis Medical History Prednisone Surgical History hysterectomy 2001 Surgical History arthroscopic knee surgery-left knee Surgical History section x 2 Surgical History otolaryngologic surgery-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
--- OUTSIDE RECORDS SUMMARY | 2020-02-27 15:48 | XMS REPORT ---
Author Author Beba CORBIN [facility] Address [address] [place] [address] Care Team Providers Care Pantograph Operator Name Role Phone EMERALD EDWARD Unavailable PROBLEMS Type Condition ICD9-CM Code [id number] Code Onset Dates Condition S tatus SNOMED Code Problem Osteoporosis M81.0 Active 7345319 6 Problem Chronic pain syndrome G89.4 Active 855283359 Problem Moderate persistent asthma with acute exacerbation J45.41 Active 801662943089856 Problem Lumbago with sciatica, right side M54.41 Active 296018722195657 Problem Chronic constipation K59.00 Active 518076857 Problem Lumbago with sciatica, left side M54.42 Active 619369442 Problem Chronic kidney disease, stage 1 N18.1 Active 478369546 Problem Severe episode of recurrent major depressive disorder, without psychotic features F33.2 Active 39861011 Problem Asthma exacerbation J45.901 Active 524139175 Problem Moderate persistent asthma without complication J4 5.40 Active 146595243 Problem Generalized anxiety disorder F41.1 A ctive 04975818 Problem Pernicious anemia D51.0 Active 84 258645 Problem Hyperlipidemia, unspecified hyperlipidemia E78.5 Active 44423952 Problem Essential hypertension I10 Active 05127149 Problem Vitamin D deficiency E55.9 Active 97146139 Problem Chronic prescription opiate use Z79.899 Active 180048650 Problem Colon wall thickening K63.9 Active 179753813 Problem Rheumatoid arthritis involvi ng multiple sites with positive rheumatoid factor M05.89 Active 139716500 Problem Bladder wall thickening N32.89 Active 979506772 Problem Atrophy of left kidney N26.1 Active 092695265 Problem Gastroesophageal reflux disease, esophagitis pre sence not specified K21.9 Active 456999207 ALLERGIES No Information ENCOUNTERS Encounter Location Date Diagnosis [facility] [address] [facility] [id number] [address] [place] [address] Mar, High ankle sprain of right l ower extremity, subsequent encounter S93.431D ; Lumbago with sciatica, left side M54.42 and Lumbago with sciatica, right side M54.41 [facility] [address] [id number] [address] [place] [address] Mar, [facility] [address] [id number] [address] [place] [address] Mar, Chronic pain syndrome G89.4 [facility] [address] [id number] [address] [place] [address] Mar, [facility] [address] [id number] [address] [place] [address] Mar, Asthma exacerbation J45.901 and Sprain of right ankle, unspecified ligament, subsequent encounter S93.401D [facility] [address] [id number] [address] [place] [address] Feb, Injury of right ankle, initi al encounter S99.911A [facility] [address] [id number] [address] [place] [address] Feb, Chronic pain syndrome G89.4 [facility] [address] [id number] [address] [place] [address] Feb, Chronic pain syndrome G89.4 [facility] [address] [id number] [address] [place] [address] Feb, Moderate persistent asthma w ith acute exacerbation J45.41 and Persistent cough for 3 weeks or longer R05 [facility] [address] [id number] [address] [place] [address] January, [facility] [address] [id number] [address] [place] [address] January, Moderate persistent asthma w ith acute exacerbation J45.41 [facility] [address] [id number] [address] [place] [address] January, Chronic pain syndrome G89.4 [facility] [address] [facility] [id number] [address] [place] [address] 14 Jan, 2018 Tachycardia R00.0 and Modera te persistent asthma with acute exacerbation J45.41 [facility] [address] [facility] [id number] [address] [place] [address] 11 Jan, 2018 Tachycardia R00.0 ; Moderate persistent asthma with acute exacerbation J45.41 ; Gastroesophageal reflux disease, esophagitis presence not specified K21.9 ; Hyperlipidemia, unspecified hyperlipidemia E78.5 and Chronic pain syndrome G89.4 [place] [address] [facility] [id number] [address] [place] [address] Dec, Medicare annual wellness vis it, initial [...] immunization Z23 and Chronic pain syndrome G89.4 [place] [address] [facility] [id number] [address] [place] [address] Dec, Chronic pain syndrome G89.4 [place] [address] [place] [id number] [address] [place] [address] Dec, [place] [address] [facility] [id number] [address] [place] [address] Nov, [place] [address] [place] [id number] [address] [place] [address] Nov, Chronic pain syndrome G89.4 [place] [address] [facility] [id number] [address] [place] [address] Oct, Chronic pain syndrome G89.4 [place] [address] [place] [id number] [address] [place] [address] 08 Oct, 2017 Chronic kidney disease, stag e 1 N18.1 [facility] [address] [facility] [id number] [address] [place] [address] Oct, Chronic prescription opiate use Z79.899 ; Cough R05 ; Asthma exacerbation J45.901 ; Elevated liver enzymes R74.8 ; Rheumatoid arthritis involving multiple sites with positive rheumatoid factor M05.89 and Chronic pain syndrome G89.4 [facility] [address] [facility] [id number] [address] [place] [address] Sep, Chronic pain syndrome G89.4 [facility] [address] [facility] [id number] [address] [place] [address] Sep, [place] [address] [facility] [id number] [address] [place] [address] Aug, Acute bronchitis, unspecifie d organism J20.9 [place] [address] [facility] [id number] [address] [place] [address] Aug, Chronic pain syndrome G89.4 [place] [address] [facility] [id number] [address] [place] [address] Jul, Chronic pain syndrome G89.4 [place] [address] [facility] [id number] [address] [place] [address] Jun, Chronic pain syndrome G89.4 [facility] [address] [facility] [id number] [address] [place] [address] May, Rheumatoid arthritis involvi ng multiple sites with positive rheumatoid factor M05.89 [facility] [address] [facility] [id number] [address] [place] [address] May, Gastroesophageal reflux dise ase, esophagitis presence not specified K21.9 and Chronic pain syndrome G89.4 [facility] [address] [facility] [id number] [address] [place] [address] May, [facility] [address] [facility] [id number] [address] [place] [address] May, Chronic kidney disease, stag e 1 N18.1 and Esophageal candidiasis B37.81 [facility] [address] [facility] [id number] [address] [place] [address] May, Chronic kidney disease, stag e 1 N18.1 [facility] [address] [facility] [id number] [address] [place] [address] 05 May, 2017 Cough R05 ; Fever, unspecifi ed fever cause R50.9 ; Rheumatoid arthritis involving multiple sites with positive rheumatoid factor M05.89 and Chronic prescription opiate use Z79.899 [facility] [address] [facility] [id number] [address] [place] [address] Apr, [place] [address] [facility] [id number] [address] [place] [address] Apr, Cough R05 [place] [address] [place] [id number] [address] [place] [address] Apr, Asthma exacerbation J45.901 [place] [address] [place] [id number] [address] [place] [address] Apr, [place] [address] [place] [id number] [address] [place] [address] Apr, Generalized anxiety disorder F41.1 and Severe episode of recurrent major depressive disorder, without psychotic features F33.2 [place] [address] [place] [id number] [address] [place] [address] Mar, [place] [address] [place] [id number] [address] [place] [address] Feb, Chronic pain syndrome G89.4 [place] [address] [facility] [id number] [address] [place] [address] Feb, Acute non-recurrent maxillar y sinusitis J01.00 [place] [address] [place] [id number] [address] [place] [address] Feb, Acute non-recurrent frontal sinusitis J01.10 [place] [address] [place] [id number] [address] [place] [address] Feb, Chronic pain syndrome G89.4 [facility] [address] [facility] [id number] [address] [place] [address] January, Acute cystitis with hematuri a N30.01 [facility] [address] [facility] [id number] [address] [place] [address] January, Acute cystitis with hematuri a N30.01 ; Dysuria R30.0 and Moderate persistent asthma with acute exacerbation J45.41 [place] [address] [facility] [id number] [address] [place] [address] January, [place] [address] [place] [id number] [place] [address] January, Chronic pain syndrome G89.4 [place] [address] [place] [id number] [place] [address] January, Asthma exacerbation J45.901 [place] [address] [place] [id number] [address] [place] [address] January, Asthma exacerbation J45.901 [place] [address] [place] [id number] [place] [address] Dec, Cough R05 ; Numbness in both hands R20.0 ; Ground glass opacity present on imaging of lung R91.8 ; Hypoxia R09.02 and Asthma exacerbation J45.901 [place] [address] [place] [id number] [address] [place] [address] Dec, Chronic pain syndrome G89.4 [place] [address] [place] [id number] [address] [place] [address] Nov, Chronic prescription opiate use Z79.899 ; Rheumatoid arthritis involving multiple sites with positive rheumatoid factor M05.89 ; Moderate persistent asthma with acute exacerbation J45.41 ; Pneumonia of right lower lobe due to infectious organism J18.1 ; Chronic pain syndrome G89.4 ; Gastroesophageal reflux disease, esophagitis presence not specified K21.9 and Hyperlipidemia, unspecified hyperlipidemia E78.5 [place] [address] [place] [id number] [address] [place] [address] Nov, Rheumatoid arthritis involvi ng multiple sites with positive rheumatoid factor M05.89 [facility] [address] [facility] [id number] [address] [place] [address] Oct, [facility] [address] [address] Oct, Essential hypertension I10 [facility] [address] [place] [id number] [address] [place] [address] Sep, Hypoxia R09.02 and Ground gl ass opacity present on imaging of lung R91.8 [place] [address] [address] Sep, Moderate persistent asthma w ith acute exacerbation J45.41 [facility] [place] [address] [id number] Sep, [facility] [address] [place] [id number] [address] [place] [address] Sep, Chronic constipation K59.00 and Moderate persistent asthma with acute exacerbation J45.41 [facility] [address] [place] [id number] [address] [place] [address] Sep, Moderate persistent asthma w ith acute exacerbation J45.41 [facility] [address] [place] [address] Aug, [facility] [address] [facility] [id number] [address] [place] [address] Aug, [facility] [address] [facility] [id number] [address] [place] [address] Aug, [facility] [address] [place] [id number] [address] [place] [address] Aug, Rheumatoid arthritis involvi ng multiple sites with positive rheumatoid factor M05.89 ; Essential hypertension I10 ; Hyperlipidemia, unspecified hyperlipidemia E78.5 ; Chronic constipation K59.00 and Moderate persistent asthma with acute exacerbation J45.41 [facility] [address] [facility] [id number] [address] [place] [address] Aug, Bronchitis J40 [facility] [address] [facility] [id number] [address] [place] [address] Aug, Rheumatoid arthritis involvi multiple sites with positive rheumatoid factor M05.89 [place] [address] [address] Aug, Pharyngitis, unspecified pablito ology J02.9 and Acute nasopharyngitis J00 [place] [address] [place] [id number] [place] [address] Aug, [place] [address] [place] [id number] [place] [address] Jul, [place] [address] [address] Jul, Rheumatoid arthritis involvi ng multiple sites with positive rheumatoid factor M05.89 ; Essential hypertension I10 ; Hyperlipidemia, unspecified hyperlipidemia E78.5 ; Rash R21 ; Mild persistent asthma with acute exacerbation J45.31 ; Hematuria R31.9 ; Osteoporosis M81.0 and Gastroesophageal reflux disease, esophagitis presence not specified K21.9 [place] [address] [place] [address] 18 Jun, 2016 [place] [address] [address] Jun, Dysuria R30.0 [facility] [address] [facility] [id number] [address] [place] [address] 05 Jun, 2016 Acute non-recurrent maxillar y sinusitis J01.00 and Dysuria R30.0 [facility] [address] [place] [id number] [address] [place] [address] 16 May, 2016 [facility] [address] [place] [id number] [place] [address] 15 May, 2016 [facility] [address] [place] [id number] [address] [place] [address] Apr, Chronic prescription opiate use Z79.899 and Rheumatoid arthritis involving multiple sites with positive rheumatoid factor M05.89 [facility] [address] [place] [id number] [address] [place] [address] Mar, [facility] [address] [place] [id number] [address] [place] [address] Feb, Dizziness of unknown cause R 42 and Other chronic pain G89.29 [place] [address] [place] [id number] [address] [place] [address] Feb, [place] [address] [place] [id number] [place] [address] Feb, Shortness of breath R06.02 [place] [address] [place] [id number] [address] [place] [address] January, [place] [address] [place] [address] January, Rheumatoid arthritis involvi ng multiple sites with positive rheumatoid factor M05.89 ; Chronic prescription opiate use Z79.899 ; Hyperlipidemia, unspecified hyperlipidemia E78.5 ; Cough R05 ; Exposure to pneumonia Z20.828 ; Diarrhea, unspecified type R19.7 ; Weight loss R63.4 ; Lumbago with sciatica, right side M54.41 and Lumbago with sciatica, left side M54.42 [place] [address] [place] [id number] [address] [place] [address] Dec, [facility] [address] [place] [id number] [address] [place] [address] Dec, Bronchitis J40 [place] [address] [place] [id number] [address] [place] [address] Nov, [place] [address] [place] [id number] [address] [place] [address] Nov, [place] [address] [place] [id number] [address] [place] [address] Nov, [facility] [address] [id number] [address] [place] [address] Nov, Bloody diarrhea R19.7 ; [place] n wall thickening K63.9 ; Shortness of breath R06.02 and Bladder wall thickening N32.89 [facility] [address] [id number] [address] [place] [id number] 15 Oct, 2015 Dental examination Z01.20 [facility] [address] [id number] [address] [place] [address] 15 Oct, 2015 [facility] [address] [facility] [id number] [address] [place] [address] 15 Oct, 2015 Toothache K08.8 [facility] [address] [id number] [address] [place] [id number] 11 Oct, 2015 Dental examination Z01.20 [facility] [address] [facility] [id number] [address] [place] [address] 02 Oct, 2015 [facility] [address] [facility] [id number] [address] [place] [address] Sep, [facility] [address] [facility] [id number] [address] [place] [address] Sep, Burning with urination R30.0 [place] [address] [place] [id number] [address] [place] [address] Sep, Hematuria R31.9 ; Rheumatoid arthritis involving multiple sites with positive rheumatoid factor M05.89 and Rheumatoid arthritis flare M06.9 [facility] [address] [facility] [id number] [address] [place] [address] Aug, Hyperlipidemia, unspecified hyperlipidemia E78.5 and Hematuria R31.9 [facility] [address] [facility] [id number] [address] [place] [address] Aug, Hematuria R31.9 ; Chronic ki dney disease, stage 1 N18.1 and Hyperlipidemia, unspecified hyperlipidemia E78.5 [place] [address] [id number] [address] [place] [address] Aug, Rheumatoid arthritis involvi ng multiple sites with positive rheumatoid factor M05.89 ; Asthma exacerbation J45.901 ; Hematuria R31.9 ; Hyperlipidemia, unspecified hyperlipidemia E78.5 and Chronic kidney disease, stage 1 N18.1 [place] [address] [id number] [address] [place] [address] Aug, [facility] [address] [facility] [id number] [address] [place] [address] Jul, [place] [address] [place] [id number] [address] [place] [address] Jul, Lumbosacral radiculopathy M5 4.17 [place] [address] [place] [id number] [address] [place] [address] Jul, [place] [address] [place] [id number] [address] [place] [address] Jun, Rheumatoid arthritis involvi ng multiple sites with positive rheumatoid factor M05.89 ; Hyperlipidemia, unspecified hyperlipidemia E78.5 ; Lumbosacral radiculopathy M54.17 ; Carpal tunnel syndrome, right upper limb G56.01 and Carpal tunnel syndrome, left upper limb G56.02 [place] [address] [place] [id number] [address] [place] [address] Jun, [place] [address] [place] [id number] [address] [place] [phone] 17 May, 2015 Lumbar radicular pain 724.4 and Dysuria 788.1 [place] [address] [place] [id number] [address] [place] [phone] 08 May, 2015 Rheumatoid arthritis 714.0 ; Lumbar radicular pain 724.4 ; Burn 949.0 and Thoracic back pain 724.1 [place] [address] [place] [id number] [address] [place] [address] May, [facility] [address] [id number] [address] [place] [address] May, [facility] [address] [id number] [address] [place] [address] Apr, [facility] [address] [facility] [id number] [address] [place] [address] Mar, Hyperlipidemia 272.4 [facility] [address] [id number] [address] [place] [address] Mar, [facility] [address] [facility] [id number] [address] [place] [address] Mar, [facility] [address] [facility] [id number] [address] [place] [address] Mar, Diarrhea 787.91 ; Chronic ki dney disease, unspecified 585.9 ; Hyperlipidemia 272.4 and Asthma 493.90 [facility] [address] [id number] [address] [place] [address] Mar, [facility] [address] [id number] [address] [place] [address] Mar, Gastroenteritis 558.9 [facility] [address] [facility] [id number] [address] [place] [address] Feb, [facility] [address] [id number] [address] [place] [address] January, [facility] [address] [id number] [address] [place] [address] January, [facility] [address] [facility] [id number] [address] [place] [phone] Dec, [facility] [address] [id number] [address] [place] [address] Dec, [facility] [address] [facility] [id number] [address] [place] [address] Nov, [facility] [address] [id number] [address] [place] [address], [place] [address] 20 Nov, 2014 [facility] [address] [id number] [address] [place] [address], [place] [address] 19 Nov, 2014 [facility] [address] [id number] [address] [place] [address], [place] [address] 19 Nov, 2014 [facility] [address] [id number] [address] [place] [address], [place] [address] Nov, [facility] [address] [id number] [address] [place] [address], [place] [address] Nov, [facility] [address] [id number] [address] [place] [address], [place] [address] Oct, [facility] [address] [id number] [address] [place] [address], [place] [address] Oct, [facility] [address] [id number] [address] [place] [address], [place] [address] Sep, [facility] [address] [id number] [address] [place] [address], [place] [address] Sep, [facility] [address] [id number] [address] [place] [address], [place] [address] Sep, [facility] [address] [id number] [address] [place] [address], [place] [address] Sep, [facility] [address] [id number] [address] [place] [address], [place] [id number] Sep, [facility] [address] [id number] [address] [place] [address], [place] [id number] Sep, [facility] [address] [id number] [address] [place] [address], [place] [id number] Aug, [facility] [address] [id number] [address] [place] [address], [place] [id number] Aug, [facility] [address] [id number] [address] [place] [address], [place] [id number] Aug, [facility] [address] [id number] [address] [place] [address], [place] [id number] Aug, [facility] [address] [id number] [address] [place] [address], [place] [id number] Jul, [facility] [address] [id number] [address] [place] [address], [place] [id number] Jul, [facility] [address] [id number] [address] [place] [address], [place] [id number] Jul, [facility] [address] [id number] [address] [place] [address], [place] [id number] Jul, [facility] [address] [address] [id number] [address] [place] [address], [place] [id number] Jul, [facility] [address] [id number] [address] [place] [address], [place] [id number] Jul, [facility] [address] [id number] [address] [place] [address], [place] [id number] Jul, [facility] [address] [id number] [address] [place] [address], [place] [id number] Jul, [facility] [address] [id number] [address] [place] [address], [place] [id number] Jul, [facility] [address] [id number] [address] [place] [address], [place] [id number] Jun, [facility] [address] [id number] [address] [place] [address], [place] [id number] Jun, [facility] [address] [id number] [address] [place] [address], [place] [id number] Jun, [facility] [address] [id number] [address] [place] [address], [place] [id number] May, [facility] [address] [id number] [address] [place] [address], [place] [id number] May, [facility] [address] [id number] [address] [place] [address], [place] [id number] 24 Sep, 2013 [facility] [address] [id number] [facility] [place] [id number] 24 Sep, 2013 [facility] [address] [id number] [address] [place] [address], [place] [id number] 24 May, 2013 [facility] [address] [id number] [address] [place] [address], [place] [id number] 24 May, 2013 [facility] [address] [id number] [address] [place] [address], [place] [id number] 19 May, 2013 [facility] [address] [id number] [address] [place] [address], [place] [id number] 19 May, 2013 [facility] [address] [id number] [address] [place] [address], [place] [id number] 11 May, 2013 [facility] [address] [id number] [address] [place] [address], [place] [id number] 11 May, 2013 [facility] [address] [id number] [address] [place] [address], [place] [address] 11 May, 2013 [facility] [address] [id number] [address] [place] [address], [place] [id number] 11 May, 2013 [facility] [address] [id number] [address] [place] [address], [place] [id number] 10 May, 2013 [facility] [address] [id number] [address] [place] [address], [place] [id number] 09 May, 2013 [facility] [address] [id number] [address] [place] [address], [place] [id number] 09 May, 2013 [facility] [address] [id number] [address] [place] [address], [place] [id number] 08 May, 2013 [facility] [address] [id number] [address] [place] [address], [place] [id number] Apr, [facility] [address] [id number] [address] [place] [address], [place] [id number] Apr, [facility] [address] [id number] [address] [place] [id number] Aug, [facility] [address] [facility] [id number] [address] [place] [id number] Jul, IMMUNIZATIONS No Known Immunizations SOCIAL HISTORY Never Assessed REASON FOR VISIT Referral PLAN OF CARE VITAL SIGNS MEDICATIONS No [...]
--- OUTSIDE RECORDS SUMMARY | 2020-02-27 15:48 | XMS REPORT ---
Author Author Beba GUO Organization [facility], [place] Address [address] [place] [address] Care Team Providers Care Human Resources Benefits Coordinator Name Role Phone TOBI GUO Unavailable PROBLEMS Type Condition ICD9-CM Code XYK54-TA Code Onset Dates Condition S tatus SNOMED Code Problem Osteoporosis M81.0 Active 7366302 6 Problem Chronic pain syndrome G89.4 Active 263960489 Problem Moderate persistent asthma with acute exacerbation J45.41 Active 031716246645689 Problem Lumbago with sciatica, right side M54.41 Active 429197287400909 Problem Chronic constipation K59.00 Active 621544378 Problem Lumbago with sciatica, left side M54.42 Active 480204526 Problem Chronic kidney disease, stage 1 N18.1 Active 117570408 Problem Severe episode of recurrent major depressive disorder, without psychotic features F33.2 Active 92024800 Problem Asthma exacerbation J45.901 Active 419018693 Problem Moderate persistent asthma without complication J4 5.40 Active 396662124 Problem Generalized anxiety disorder F41.1 A ctive 52850239 Problem Pernicious anemia D51.0 Active 84 075591 Problem Hyperlipidemia, unspecified hyperlipidemia E78.5 Active 74326367 Problem Essential hypertension I10 Active 35370995 Problem Vitamin D deficiency E55.9 Active 14696604 Problem Chronic prescription opiate use Z79.899 Active 979487602 Problem Colon wall thickening K63.9 Active 063933071 Problem Rheumatoid arthritis involvi ng multiple sites with positive rheumatoid factor M05.89 Active 515773443 Problem Bladder wall thickening N32.89 Active 135835839 Problem Atrophy of left kidney N26.1 Active 017116152 Problem Gastroesophageal reflux disease, esophagitis pre sence not specified K21.9 Active 503774596 ALLERGIES No Information ENCOUNTERS Encounter Location Date Diagnosis [facility] [place] [address] [facility] [id number] [address] [place] [address] Mar, High ankle sprain of right l ower extremity, subsequent encounter S93.431D ; Lumbago with sciatica, left side M54.42 and Lumbago with sciatica, right side M54.41 [facility] [place] [address] [id number] [address] [place] [id number] Mar, [facility] [place] [address] [id number] [address] [place] [id number] Mar, Chronic pain syndrome G89.4 [facility] [place] [address] [id number] [address] [place] [id number] Mar, [facility] [place] [address] [id number] [address] [place] [id number] Mar, Asthma exacerbation J45.901 and Sprain of right ankle, unspecified ligament, subsequent encounter S93.401D [facility] [address] [id number] [address] [place] [id number] Feb, Injury of right ankle, initi al encounter S99.911A [facility] [place] [address] [id number] [address] [place] [id number] Feb, Chronic pain syndrome G89.4 [facility] [place] [address] [id number] [address] [place] [id number] Feb, Chronic pain syndrome G89.4 [facility] [place] [address] [id number] [address] [place] [id number] Feb, Moderate persistent asthma w ith acute exacerbation J45.41 and Persistent cough for 3 weeks or longer R05 [facility] [place] [address] [id number] [address] [place] [id number] January, [facility] [place] [address] [id number] [address] [place] [id number] January, Moderate persistent asthma w ith acute exacerbation J45.41 [facility] [place] [address] [id number] [address] [place] [id number] January, Chronic pain syndrome G89.4 [facility] [place] [address] [facility] [id number] [address] [place] [id number] 14 Jan, 2018 Tachycardia R00.0 and Modera te persistent asthma with acute exacerbation J45.41 [facility] [place] [address] [facility] [id number] [address] [place] [id number] 11 Jan, 2018 Tachycardia R00.0 ; Moderate persistent asthma with acute exacerbation J45.41 ; Gastroesophageal reflux disease, esophagitis presence not specified K21.9 ; Hyperlipidemia, unspecified hyperlipidemia E78.5 and Chronic pain syndrome G89.4 [facility] [address] [place] [id number] [address] [place] [id number] Dec, Medicare annual wellness vis it, initial [...] immunization Z23 and Chronic pain syndrome G89.4 [facility] [place] [address] [place] [id number] [place] [id number] Dec, Chronic pain syndrome G89.4 [facility] [address] [place] [id number] [address] [place] [id number] Dec, [place] [address] [facility] [id number] [address] [place] [id number] Nov, [facility] [address] [place] [id number] [address] [place] [id number] Nov, Chronic pain syndrome G89.4 [facility] [address] [facility] [id number] [address] [place] [id number] Oct, Chronic pain syndrome G89.4 [facility] [address] [place] [id number] [address] [place] [id number] 08 Oct, 2017 Chronic kidney disease, stag e 1 N18.1 [facility] [place] [address] [facility] [id number] [address] [place] [id number] 07 Oct, 2017 Chronic prescription opiate use Z79.899 ; Cough R05 ; Asthma exacerbation J45.901 ; Elevated liver enzymes R74.8 ; Rheumatoid arthritis involving multiple sites with positive rheumatoid factor M05.89 and Chronic pain syndrome G89.4 [facility] [place] [address] [facility] [id number] [address] [place] [id number] Sep, Chronic pain syndrome G89.4 [facility] [place] [address] [facility] [id number] [address] [place] [id number] Sep, [place] [address] [facility] [id number] [address] [place] [id number] Aug, Acute bronchitis, unspecifie d organism J20.9 [facility] [address] [facility] [id number] [address] [place] [id number] Aug, Chronic pain syndrome G89.4 [facility] [place] [address] [facility] [id number] [address] [place] [id number] Jul, Chronic pain syndrome G89.4 [facility] [address] [facility] [id number] [address] [place] [id number] Jun, Chronic pain syndrome G89.4 [facility] [place] [address] [facility] [id number] [address] [place] [id number] May, Rheumatoid arthritis involvi ng multiple sites with positive rheumatoid factor M05.89 [facility] [place] [address] [facility] [id number] [address] [place] [id number] May, Gastroesophageal reflux dise ase, esophagitis presence not specified K21.9 and Chronic pain syndrome G89.4 [facility] [place] [address] [facility] [id number] [address] [place] [id number] May, [facility] [place] [address] [facility] [id number] [address] [place] [id number] May, Esophageal candidiasis B37.8 1 and Chronic kidney disease, stage 1 N18.1 [facility] [place] [address] [facility] [id number] [address] [place] [id number] 11 May, 2017 Chronic kidney disease, stag e 1 N18.1 [facility] [place] [address] [facility] [id number] [address] [place] [id number] 05 May, 2017 Cough R05 ; Fever, unspecifi ed fever cause R50.9 ; Rheumatoid arthritis involving multiple sites with positive rheumatoid factor M05.89 and Chronic prescription opiate use Z79.899 [facility] [place] [address] [facility] [id number] [address] [place] [id number] Apr, [facility] [address] [place] [id number] [address] [place] [id number] Apr, Cough R05 [facility] [address] [place] [id number] [place] [address] Apr, Asthma exacerbation J45.901 [facility] [address] [place] [id number] [address] [place] [id number] Apr, [facility] [address] [place] [id number] [address] [place] [id number] Apr, Generalized anxiety disorder F41.1 and Severe episode of recurrent major depressive disorder, without psychotic features F33.2 [facility] [address] [place] [id number] [address] [place] [id number] Mar, [place] [address] [place] [id number] [address] [place] [id number] Feb, Chronic pain syndrome G89.4 [facility] [address] [place] [id number] [address] [place] [id number] Feb, Acute non-recurrent maxillar y sinusitis J01.00 [facility] [address] [place] [id number] [address] [place] [id number] Feb, Acute non-recurrent frontal sinusitis J01.10 [facility] [address] [place] [id number] [address] [place] [id number] Feb, Chronic pain syndrome G89.4 [facility] [place] [address] [facility] [id number] [address] [place] [id number] January, Acute cystitis with hematuri a N30.01 [facility] [place] [address] [facility] [id number] [address] [place] [id number] January, Acute cystitis with hematuri a N30.01 ; Dysuria R30.0 and Moderate persistent asthma with acute exacerbation J45.41 [facility] [place] [address] [facility] [id number] [address] [place] [id number] January, [place] [address] [facility] [id number] [address] [place] [id number] January, Chronic pain syndrome G89.4 [place] [address] [place] [id number] [address] [place] [id number] January, Asthma exacerbation J45.901 [place] [address] [facility] [id number] [address] [place] [id number] January, Asthma exacerbation J45.901 [place] [address] [facility] [id number] [address] [place] [id number] Dec, Cough R05 ; Numbness in both hands R20.0 ; Ground glass opacity present on imaging of lung R91.8 ; Hypoxia R09.02 and Asthma exacerbation J45.901 [facility] [address] [place] [id number] [address] [place] [id number] Dec, Chronic pain syndrome G89.4 [place] [address] [facility] [id number] [address] [place] [id number] Nov, Chronic prescription opiate use Z79.899 ; Rheumatoid arthritis involving multiple sites with positive rheumatoid factor M05.89 ; Moderate persistent asthma with acute exacerbation J45.41 ; Pneumonia of right lower lobe due to infectious organism J18.1 ; Chronic pain syndrome G89.4 ; Gastroesophageal reflux disease, esophagitis presence not specified K21.9 and Hyperlipidemia, unspecified hyperlipidemia E78.5 [place] [address] [place] [id number] [address] [place] [id number] Nov, Rheumatoid arthritis involvi multiple sites with positive rheumatoid factor M05.89 [facility] [place] [address] [facility] [id number] [address] [place] [id number] Oct, [facility] [place] [address] [place] [id number] [address] [place] [id number] Oct, Essential hypertension I10 [facility] [place] [address] [facility] [id number] [address] [place] [id number] Sep, Hypoxia R09.02 and Ground gl ass opacity present on imaging of lung R91.8 [place] [address] [address] Sep, Moderate persistent asthma w ith acute exacerbation J45.41 [facility] [address] [place] [id number] [place] [id number] Sep, [facility] [place] [address] [facility] [id number] [address] [place] [id number] Sep, Chronic constipation K59.00 and Moderate persistent asthma with acute exacerbation J45.41 [facility] [place] [address] [facility] [id number] [address] [place] [id number] Sep, Moderate persistent asthma w ith acute exacerbation J45.41 [facility] [place] [address] [place] [id number] [address] [place] [id number] Aug, [facility] [place] [address] [facility] [id number] [address] [place] [id number] Aug, [facility] [place] [address] [facility] [id number] [address] [place] [id number] Aug, [facility] [place] [address] [facility] [id number] [address] [place] [id number] Aug, Rheumatoid arthritis involvi ng multiple sites with positive rheumatoid factor M05.89 ; Essential hypertension I10 ; Hyperlipidemia, unspecified hyperlipidemia E78.5 ; Chronic constipation K59.00 and Moderate persistent asthma with acute exacerbation J45.41 [facility] [place] [address] [id number] [address] [place] [id number] Aug, Bronchitis J40 [facility] [place] [address] [facility] [id number] [address] [place] [id number] Aug, Rheumatoid arthritis involvi ng multiple sites with positive rheumatoid factor M05.89 [facility] [place] [address] [facility] [id number] [address] [place] [id number] Aug, Pharyngitis, unspecified pablito ology J02.9 and Acute nasopharyngitis J00 [place] [address] [facility] [id number] [address] [place] [id number] Aug, [place] [address] [facility] [id number] [place] [id number] Jul, [facility] [place] [address] [place] [id number] [place] [address] Jul, Rheumatoid arthritis involvi ng multiple sites with positive rheumatoid factor M05.89 ; Essential hypertension I10 ; Hyperlipidemia, unspecified hyperlipidemia E78.5 ; Rash R21 ; Mild persistent asthma with acute exacerbation J45.31 ; Hematuria R31.9 ; Osteoporosis M81.0 and Gastroesophageal reflux disease, esophagitis presence not specified K21.9 [facility] [place] [address] [place] [id number] [address] [place] [id number] 18 Jun, 2016 [facility] [place] [address] [place] [id number] [address] [place] [id number] Jun, Dysuria R30.0 [facility] [address] [facility] [id number] [address] [place] [id number] 05 Jun, 2016 Acute non-recurrent maxillar y sinusitis J01.00 and Dysuria R30.0 [facility] [place] [address] [facility] [id number] [address] [place] [id number] 16 May, 2016 [facility] [place] [address] [facility] [id number] [address] [place] [id number] 15 May, 2016 [facility] [place] [address] [place] [id number] [address] [place] [id number] Apr, Chronic prescription opiate use Z79.899 and Rheumatoid arthritis involving multiple sites with positive rheumatoid factor M05.89 [facility] [place] [address] [place] [id number] [address] [place] [id number] Mar, [facility] [place] [address] [place] [id number] [address] [place] [id number] Feb, Dizziness of unknown cause R 42 and Other chronic pain G89.29 [place] [address] [place] [id number] [address] [place] [id number] Feb, [place] [address] [id number] Feb, Shortness of breath R06.02 [place] [address] [place] [id number] [place] [address] January, [place] [address] [address] January, Rheumatoid arthritis involvi ng multiple sites with positive rheumatoid factor M05.89 ; Chronic prescription opiate use Z79.899 ; Hyperlipidemia, unspecified hyperlipidemia E78.5 ; Cough R05 ; Exposure to pneumonia Z20.828 ; Diarrhea, unspecified type R19.7 ; Weight loss R63.4 ; Lumbago with sciatica, right side M54.41 and Lumbago with sciatica, left side M54.42 [place] [address] [place] [id number] [address] [place] [id number] Dec, [place] [address] [place] [id number] [address] [place] [id number] Dec, Bronchitis J40 [place] [address] [place] [id number] [address] [place] [id number] Nov, [place] [address] [place] [id number] [address] [place] [id number] Nov, [place] [address] [place] [address] Nov, [facility] [place] [address] [id number] [address] [place] [id number] Nov, Bloody diarrhea R19.7 ; Merrill n wall thickening K63.9 ; Shortness of breath R06.02 and Bladder wall thickening N32.89 [facility] [address] [id number] [address] [place] [address] [id number] 15 Oct, 2015 Dental examination Z01.20 [facility] [place] [address] [id number] [address] [place] [id number] 15 Oct, 2015 [facility] [place] [address] [facility] [id number] [place] [id number] 15 Oct, 2015 Toothache K08.8 [facility] [address] [id number] [address] [place] [address] [id number] 11 Oct, 2015 Dental examination Z01.20 [facility] [place] [address] [facility] [id number] [address] [place] [id number] 02 Oct, 2015 [facility] [place] [address] [facility] [id number] [address] [place] [id number] Sep, [facility] [place] [address] [place] [id number] [place] [address] Sep, Burning with urination R30.0 [place] [address] [place] [id number] [address] [place] [id number] Sep, Hematuria R31.9 ; Rheumatoid arthritis involving multiple sites with positive rheumatoid factor M05.89 and Rheumatoid arthritis flare M06.9 [facility] [place] [address] [facility] [id number] [address] [place] [id number] Aug, Hyperlipidemia, unspecified hyperlipidemia E78.5 and Hematuria R31.9 [facility] [place] [address] [facility] [id number] [address] [place] [id number] Aug, Hematuria R31.9 ; Chronic ki dney disease, stage 1 N18.1 and Hyperlipidemia, unspecified hyperlipidemia E78.5 [facility] [place] [address] [id number] [address] [place] [id number] 18 Aug, 2015 Rheumatoid arthritis involvi ng multiple sites with positive rheumatoid factor M05.89 ; Asthma exacerbation J45.901 ; Hematuria R31.9 ; Hyperlipidemia, unspecified hyperlipidemia E78.5 and Chronic kidney disease, stage 1 N18.1 [facility] [place] [address] [id number] [address] [place] [id number] Aug, [facility] [place] [address] [facility] [id number] [address] [place] [id number] Jul, [facility] [place] [address] [facility] [id number] [address] [place] [id number] Jul, Lumbosacral radiculopathy M5 4.17 [place] [address] [place] [id number] [address] [place] [id number] Jul, [place] [address] [place] [id number] [address] [place] [id number] Jun, Rheumatoid arthritis involvi ng multiple sites with positive rheumatoid factor M05.89 ; Hyperlipidemia, unspecified hyperlipidemia E78.5 ; Lumbosacral radiculopathy M54.17 ; Carpal tunnel syndrome, right upper limb G56.01 and Carpal tunnel syndrome, left upper limb G56.02 [place] [address] [place] [id number] [address] [place] [id number] Jun, [place] [address] [place] [id number] [address] [place] [id number] 17 May, 2015 Lumbar radicular pain 724.4 and Dysuria 788.1 [place] [address] [place] [id number] [address] [place] [id number] 08 May, 2015 Rheumatoid arthritis 714.0 ; Lumbar radicular pain 724.4 ; Burn 949.0 and Thoracic back pain 724.1 [place] [address] [facility] [id number] [address] [place] [id number] May, [place] [address] [id number] [address] [place] [id number] May, [facility] [place] [address] [id number] [address] [place] [id number] Apr, [facility] [place] [address] [facility] [id number] [address] [place] [id number] Mar, Hyperlipidemia 272.4 [facility] [place] [address] [id number] [address] [place] [id number] Mar, [facility] [place] [address] [facility] [id number] [address] [place] [id number] Mar, [facility] [place] [address] [facility] [id number] [address] [place] [id number] Mar, Diarrhea 787.91 ; Chronic ki dney disease, unspecified 585.9 ; Hyperlipidemia 272.4 and Asthma 493.90 [facility] [place] [address] [id number] [address] [place] [id number] Mar, [facility] [place] [address] [facility] [id number] [address] [place] [id number] Mar, Gastroenteritis 558.9 [facility] [place] [address] [facility] [id number] [address] [place] [id number] Feb, [facility] [place] [address] [facility] [id number] [address] [place] [id number] January, [facility] [place] [address] [facility] [id number] [address] [place] [id number] January, [facility] [place] [address] [facility] [id number] [address] [place] [id number] Dec, [facility] [place] [address] [facility] [id number] [address] [place] [id number] Dec, [facility] [place] [address] [facility] [id number] [address] [place] [id number] Nov, [facility] [place] [address] [id number] [address] [place] [id number] 20 Nov, 2014 [facility] [address] [id number] [address] [place] [address], [place] [address] Nov, [facility] [address] [id number] [address] [place] [address], [place] [id number] Nov, [facility] [address] [id number] [address] [place] [address], [place] [id number] Nov, [facility] [address] [id number] [address] [place] [address], [place] [id number] Nov, [facility] [address] [id number] [address] [place] [address], [place] [id number] Oct, [facility] [address] [id number] [address] [place] [address], [place] [id number] Oct, [facility] [address] [id number] [address] [place] [address], [place] [id number] Sep, [facility] [address] [id number] [address] [place] [address], [place] [id number] Sep, [facility] [address] [id number] [address] [place] [address], [place] [id number] Sep, [facility] [address] [id number] [address] [place] [address], [place] [id number] Sep, [facility] [address] [id number] [address] [place] [address], [place] [id number] Sep, [facility] [address] [id number] [address] [place] [address], [place] [id number] Sep, [facility] [address] [address] [id number] [address] [place] [address], [place] [address] Aug, [facility] [address] [id number] [address] [place] [address], [place] [address] Aug, [facility] [address] [id number] [address] [place] [address], [place] [address] Aug, [facility] [place] [facility] [address] [id number] [address] [place] [address], [place] [address] Aug, [facility] [place] [facility] [address] [id number] [address] [place] [address], [place] [address] Jul, [facility] [place] [facility] [address] [id number] [address] [place] [address], [place] [address] Jul, [facility] [place] [facility] [address] [id number] [address] [place] [address], [place] [address] Jul, [facility] [place] [facility] [address] [id number] [address] [place] [address], [place] [address] Jul, [facility] [place] [facility] [address] [id number] [address] [place] [address], [place] [address] Jul, [facility] [place] [facility] [address] [id number] [address] [place] [address], [place] [id number] Jul, [facility] [place] [facility] [address] [id number] [address] [place] [address], [place] [address] Jul, [facility] [place] [facility] [address] [id number] [address] [place] [address], [place] [address] Jul, [facility] [place] [facility] [address] [id number] [address] [place] [address], [place] [address] Jul, [facility] [place] [facility] [address] [id number] [address] [place] [address], [place] [address] Jun, [facility] [place] [facility] [address] [id number] [address] [place] [address], [place] [address] Jun, [facility] [place] [facility] [address] [id number] [address] [place] [address], [place] [address] Jun, [facility] [place] [facility] [address] [id number] [address] [place] [address], [place] [id number] May, [facility] [place] [facility] [address] [id number] [address] [place] [address], [place] [address] May, [facility] [place] [facility] [address] [id number] [address] [place] [address], [place] [address] 24 Sep, 2013 [facility] [address] [id number] [facility] [address] 24 Sep, 2013 [facility] [place] [facility] [address] [id number] [facility] [address] 24 Sep, 2013 [facility] [address] [id number] [address] [place] [address], [place] [address] 24 Sep, 2013 [facility] [place] [facility] [address] [id number] [address] [place] [address], [place] [address] 19 May, 2013 [facility] [address] [id number] [address] [place] [address], [place] [address] 19 May, 2013 [facility] [address] [id number] [address] [place] [address], [place] [address] 11 May, 2013 [facility] [address] [id number] [address] [place] [address], [place] [address] 11 May, 2013 [facility] [place] [facility] [address] [id number] [address] [place] [address], [place] [address] 11 May, 2013 [facility] [place] [facility] [address] [id number] [address] [place] [address], [place] [address] 11 May, 2013 [facility] [place] [facility] [address] [id number] [address] [place] [address], [place] [address] 10 May, 2013 [facility] [place] [facility] [address] [id number] [address] [place] [address], [place] [address] 09 May, 2013 [facility] [place] [facility] [address] [id number] [address] [place] [address], [place] [address] 09 May, 2013 [facility] [place] [facility] [address] [id number] [address] [place] [address], [place] [address] 08 May, 2013 [facility] [place] [facility] [address] [id number] [address] [place] [address], [place] [address] Apr, [facility] [place] [facility] [address] [id number] [address] [place] [address], [place] [address] Apr, [facility] [place] [facility] [address] [id number] [address] [place] [address] Aug, [facility] [place] [address] [facility] [id number] [address] [place] [id number] Jul, IMMUNIZATIONS No Known Immunizations SOCIAL HISTORY Never Assessed REASON FOR VISIT Controlled medication Refill PLAN OF CARE VITAL SIGNS MEDICATIONS Medication Instructions Dosage Frequency Start Date End Date Duration S farooq OxyContin 15 mg Orally every 12 hrs 1 tablet 12h January, 28 days Active RESULTS No Results PROCEDURES [...] History section x 2 Surgical History otolaryngologic surgery-[facility] 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
--- OUTSIDE RECORDS SUMMARY | 2020-02-27 15:48 | XMS REPORT ---
Author Author Beba CORBIN [facility] Address [address] [place] [address] Care Team Providers Care Section 8 Property Manager Name Role Phone EMERALD EDWARD Unavailable PROBLEMS Type Condition ICD9-CM Code [id number] Code Onset Dates Condition S tatus SNOMED Code Problem Osteoporosis M81.0 Active 7839211 6 Problem Chronic pain syndrome G89.4 Active 842347092 Problem Moderate persistent asthma with acute exacerbation J45.41 Active 551982676709467 Problem Lumbago with sciatica, right side M54.41 Active 245251605426331 Problem Chronic constipation K59.00 Active 657285724 Problem Lumbago with sciatica, left side M54.42 Active 596234994 Problem Chronic kidney disease, stage 1 N18.1 Active 902837638 Problem Severe episode of recurrent major depressive disorder, without psychotic features F33.2 Active 49820548 Problem Asthma exacerbation J45.901 Active 804947787 Problem Moderate persistent asthma without complication J4 5.40 Active 291336191 Problem Generalized anxiety disorder F41.1 A ctive 36940155 Problem Pernicious anemia D51.0 Active 84 982740 Problem Hyperlipidemia, unspecified hyperlipidemia E78.5 Active 32452485 Problem Essential hypertension I10 Active 30992666 Problem Vitamin D deficiency E55.9 Active 48213984 Problem Chronic prescription opiate use Z79.899 Active 232811553 Problem Colon wall thickening K63.9 Active 748858522 Problem Rheumatoid arthritis involvi ng multiple sites with positive rheumatoid factor M05.89 Active 023374185 Problem Bladder wall thickening N32.89 Active 735799868 Problem Atrophy of left kidney N26.1 Active 479420015 Problem Gastroesophageal reflux disease, esophagitis pre sence not specified K21.9 Active 745221617 ALLERGIES No Information ENCOUNTERS Encounter Location Date Diagnosis [facility] [address] [facility] [id number] [address] [place] [address] Apr, Chronic pain syndrome G89.4 [facility] [address] [id number] [address] [place] [id number] Mar, High ankle sprain of right l ower extremity, subsequent encounter S93.431D ; Lumbago with sciatica, left side M54.42 and Lumbago with sciatica, right side M54.41 [facility] [address] [id number] [address] [place] [id number] Mar, [facility] [address] [id number] [address] [place] [id number] Mar, Chronic pain syndrome G89.4 [facility] [address] [id number] [address] [place] [id number] Mar, [facility] [address] [id number] [address] [place] [id number] Mar, Asthma exacerbation J45.901 and Sprain of right ankle, unspecified ligament, subsequent encounter S93.401D [facility] [address] [id number] [address] [place] [id number] Feb, Injury of right ankle, initi al encounter S99.911A [facility] [address] [id number] [address] [place] [id number] Feb, Chronic pain syndrome G89.4 [facility] [address] [id number] [address] [place] [id number] Feb, Chronic pain syndrome G89.4 [facility] [address] [id number] [address] [place] [id number] Feb, Moderate persistent asthma w ith acute exacerbation J45.41 and Persistent cough for 3 weeks or longer R05 [facility] [address] [id number] [address] [place] [id number] January, [facility] [address] [id number] [address] [place] [id number] January, Moderate persistent asthma w ith acute exacerbation J45.41 [place] [address] [facility] [id number] [address] [place] [id number] 23 Jan, 2018 Chronic pain syndrome G89.4 [place] [address] [facility] [id number] [address] [place] [id number] 14 Jan, 2018 Tachycardia R00.0 and Modera te persistent asthma with acute exacerbation J45.41 [place] [address] [place] [id number] [address] [place] [id number] 11 Jan, 2018 Tachycardia R00.0 ; Moderate persistent asthma with acute exacerbation J45.41 ; Gastroesophageal reflux disease, esophagitis presence not specified K21.9 ; Hyperlipidemia, unspecified hyperlipidemia E78.5 and Chronic pain syndrome G89.4 [place] [address] [place] [id number] [place] [id number] Dec, Medicare annual wellness vis it, initial [...] immunization Z23 and Chronic pain syndrome G89.4 [place] [address] [place] [id number] [address] [place] [id number] Dec, Chronic pain syndrome G89.4 [place] [address] [place] [id number] [address] [place] [id number] Dec, [place] [address] [facility] [id number] [address] [place] [id number] Nov, [place] [address] [place] [id number] [address] [place] [id number] Nov, Chronic pain syndrome G89.4 [place] [address] [place] [id number] [address] [place] [id number] Oct, Chronic pain syndrome G89.4 [facility] [address] [facility] [id number] [address] [place] [id number] 08 Oct, 2017 Chronic kidney disease, stag e 1 N18.1 [place] [address] [facility] [id number] [address] [place] [id number] 07 Oct, 2017 Chronic prescription opiate use Z79.899 ; Cough R05 ; Asthma exacerbation J45.901 ; Elevated liver enzymes R74.8 ; Rheumatoid arthritis involving multiple sites with positive rheumatoid factor M05.89 and Chronic pain syndrome G89.4 [place] [address] [facility] [id number] [address] [place] [id number] Sep, Chronic pain syndrome G89.4 [place] [address] [place] [id number] [address] [place] [id number] Sep, [place] [address] [place] [id number] [address] [place] [id number] Aug, Acute bronchitis, unspecifie d organism J20.9 [place] [address] [facility] [id number] [address] [place] [id number] Aug, Chronic pain syndrome G89.4 [place] [address] [place] [id number] [address] [place] [id number] Jul, Chronic pain syndrome G89.4 [place] [address] [place] [id number] [address] [place] [id number] Jun, Chronic pain syndrome G89.4 [place] [address] [place] [id number] [address] [place] [id number] May, Rheumatoid arthritis involvi ng multiple sites with positive rheumatoid factor M05.89 [place] [address] [facility] [id number] [address] [place] [id number] May, Gastroesophageal reflux dise ase, esophagitis presence not specified K21.9 and Chronic pain syndrome G89.4 [place] [address] [place] [id number] [address] [place] [id number] May, [place] [address] [place] [id number] [address] [place] [id number] 12 May, 2017 Chronic kidney disease, stag e 1 N18.1 and Esophageal candidiasis B37.81 [place] [address] [place] [id number] [address] [place] [id number] 11 May, 2017 Chronic kidney disease, stag e 1 N18.1 [place] [address] [place] [id number] [address] [place] [id number] 05 May, 2017 Cough R05 ; Fever, unspecifi ed fever cause R50.9 ; Rheumatoid arthritis involving multiple sites with positive rheumatoid factor M05.89 and Chronic prescription opiate use Z79.899 [place] [address] [id number] Apr, [place] [address] [id number] Apr, Cough R05 [place] [address] [address] Apr, Asthma exacerbation J45.901 [place] [address] [address] Apr, [place] [address] [address] Apr, Generalized anxiety disorder F41.1 and Severe episode of recurrent major depressive disorder, without psychotic features F33.2 [place] [address] [place] [id number] [address] [place] [id number] Mar, [place] [address] [address] Feb, Chronic pain syndrome G89.4 [place] [address] [place] [id number] [address] [place] [id number] Feb, Acute non-recurrent maxillar y sinusitis J01.00 [place] [address] [id number] Feb, Acute non-recurrent frontal sinusitis J01.10 [facility] [address] [facility] [id number] [address] [place] [id number] Feb, Chronic pain syndrome G89.4 [facility] [address] [id number] [address] [place] [id number] January, Acute cystitis with hematuri a N30.01 [facility] [address] [facility] [id number] [address] [place] [id number] January, Acute cystitis with hematuri a N30.01 ; Dysuria R30.0 and Moderate persistent asthma with acute exacerbation J45.41 [place] [address] [facility] [id number] [address] [place] [id number] January, [place] [address] [facility] [id number] [address] [place] [id number] January, Chronic pain syndrome G89.4 [facility] [address] [facility] [id number] [address] [place] [id number] January, Asthma exacerbation J45.901 [place] [address] [facility] [id number] [address] [place] [id number] January, Asthma exacerbation J45.901 [place] [address] [facility] [id number] [address] [place] [id number] Dec, Cough R05 ; Numbness in both hands R20.0 ; Ground glass opacity present on imaging of lung R91.8 ; Hypoxia R09.02 and Asthma exacerbation J45.901 [facility] [address] [facility] [id number] [address] [place] [id number] Dec, Chronic pain syndrome G89.4 [place] [address] [facility] [id number] [address] [place] [id number] Nov, Chronic prescription opiate use Z79.899 ; Rheumatoid arthritis involving multiple sites with positive rheumatoid factor M05.89 ; Moderate persistent asthma with acute exacerbation J45.41 ; Pneumonia of right lower lobe due to infectious organism J18.1 ; Chronic pain syndrome G89.4 ; Gastroesophageal reflux disease, esophagitis presence not specified K21.9 and Hyperlipidemia, unspecified hyperlipidemia E78.5 [facility] [address] [facility] [id number] [address] [place] [id number] Nov, Rheumatoid arthritis involvi ng multiple sites with positive rheumatoid factor M05.89 [facility] [address] [place] [id number] [address] [place] [id number] Oct, [facility] [address] [place] [id number] [address] [place] [id number] Oct, Essential hypertension I10 [place] [address] [phone] Sep, Hypoxia R09.02 and Ground gl ass opacity present on imaging of lung R91.8 [place] [address] [place] [id number] [address] [place] [id number] Sep, Moderate persistent asthma w ith acute exacerbation J45.41 [facility] [id number] [id number] Sep, [facility] [address] [facility] [id number] [address] [place] [id number] Sep, Chronic constipation K59.00 and Moderate persistent asthma with acute exacerbation J45.41 [facility] [address] [facility] [id number] [address] [place] [id number] Sep, Moderate persistent asthma w ith acute exacerbation J45.41 [facility] [address] [facility] [id number] [address] [place] [phone] Aug, [facility] [address] [facility] [id number] [address] [place] [id number] Aug, [facility] [address] [facility] [id number] [address] [place] [id number] Aug, [facility] [address] [facility] [id number] [address] [place] [id number] Aug, Rheumatoid arthritis involvi ng multiple sites with positive rheumatoid factor M05.89 ; Essential hypertension I10 ; Hyperlipidemia, unspecified hyperlipidemia E78.5 ; Chronic constipation K59.00 and Moderate persistent asthma with acute exacerbation J45.41 [place] [address] [place] [phone] Aug, Bronchitis J40 [facility] [address] [place] [id number] [place] [phone] Aug, Rheumatoid arthritis involvi ng multiple sites with positive rheumatoid factor M05.89 [place] [address] [id number] Aug, Pharyngitis, unspecified pablito ology J02.9 and Acute nasopharyngitis J00 [place] [address] [place] [id number] [place] [phone] Aug, [place] [address] [address] Jul, [place] [address] [address] Jul, Rheumatoid arthritis involvi ng multiple sites with positive rheumatoid factor M05.89 ; Essential hypertension I10 ; Hyperlipidemia, unspecified hyperlipidemia E78.5 ; Rash R21 ; Mild persistent asthma with acute exacerbation J45.31 ; Hematuria R31.9 ; Osteoporosis M81.0 and Gastroesophageal reflux disease, esophagitis presence not specified K21.9 [place] [address] [id number] Jun, [place] [address] [id number] Jun, Dysuria R30.0 [facility] [address] [place] [id number] [place] [id number] Jun, Acute non-recurrent maxillar y sinusitis J01.00 and Dysuria R30.0 [facility] [address] [place] [id number] [address] [place] [id number] May, [facility] [address] [address] May, [facility] [address] [address] Apr, Chronic prescription opiate use Z79.899 and Rheumatoid arthritis involving multiple sites with positive rheumatoid factor M05.89 [place] [address] [address] Mar, [facility] [address] [address] Feb, Dizziness of unknown cause R 42 and Other chronic pain G89.[address] [address] Feb, [place] [address] [address] Feb, Shortness of breath R06.02 [place] [address] [address] January, [place] [address] [address] January, Rheumatoid arthritis involvi ng multiple sites with positive rheumatoid factor M05.89 ; Chronic prescription opiate use Z79.899 ; Hyperlipidemia, unspecified hyperlipidemia E78.5 ; Cough R05 ; Exposure to pneumonia Z20.828 ; Diarrhea, unspecified type R19.7 ; Weight loss R63.4 ; Lumbago with sciatica, right side M54.41 and Lumbago with sciatica, left side M54.42 [place] [address] [address] Dec, [place] [address] [address] Dec, Bronchitis J40 [place] [address] [place] [id number] [place] [phone] Nov, [place] [address] [id number] [address] [place] [id number] Nov, [facility] [address] [id number] [address] [place] [id number] Nov, [facility] [address] [facility] [id number] [address] [place] [id number] Nov, Bloody diarrhea R19.7 ; [place] n wall thickening K63.9 ; Shortness of breath R06.02 and Bladder wall thickening N32.89 [facility] [address] [id number] [address] [place] [address] [id number] 15 Oct, 2015 Dental examination Z01.20 [facility] [address] [id number] [address] [place] [id number] 15 Oct, 2015 [facility] [address] [facility] [id number] [address] [place] [phone] 15 Oct, 2015 Toothache K08.8 [facility] [address] [id number] [address] [place] [id number] 11 Oct, 2015 Dental examination Z01.20 [facility] [address] [facility] [id number] [address] [place] [id number] 02 Oct, 2015 [facility] [address] [facility] [id number] [address] [place] [id number] 18 Sep, 2015 [facility] [address] [facility] [id number] [address] [place] [id number] 13 Sep, 2015 Burning with urination R30.0 [facility] [address] [facility] [id number] [address] [place] [id number] 12 Sep, 2015 Hematuria R31.9 ; Rheumatoid arthritis involving multiple sites with positive rheumatoid factor M05.89 and Rheumatoid arthritis flare M06.9 [facility] [address] [facility] [id number] [address] [place] [id number] Aug, Hyperlipidemia, unspecified hyperlipidemia E78.5 and Hematuria R31.9 [facility] [address] [facility] [id number] [address] [place] [id number] Aug, Hematuria R31.9 ; Chronic ki dney disease, stage 1 N18.1 and Hyperlipidemia, unspecified hyperlipidemia E78.5 [facility] [address] [facility] [id number] [address] [place] [id number] Aug, Rheumatoid arthritis involvi ng multiple sites with positive rheumatoid factor M05.89 ; Asthma exacerbation J45.901 ; Hematuria R31.9 ; Hyperlipidemia, unspecified hyperlipidemia E78.5 and Chronic kidney disease, stage 1 N18.1 [facility] [address] [id number] [address] [place] [id number] Aug, [facility] [address] [facility] [id number] [address] [place] [id number] Jul, [place] [address] [facility] [id number] [address] [place] [id number] Jul, Lumbosacral radiculopathy M5 4.17 [place] [address] [facility] [id number] [address] [place] [id number] Jul, [place] [address] [id number] [address] [place] [id number] Jun, Rheumatoid arthritis involvi ng multiple sites with positive rheumatoid factor M05.89 ; Hyperlipidemia, unspecified hyperlipidemia E78.5 ; Lumbosacral radiculopathy M54.17 ; Carpal tunnel syndrome, right upper limb G56.01 and Carpal tunnel syndrome, left upper limb G56.02 [place] [address] [facility] [id number] [address] [place] [id number] Jun, [facility] [address] [id number] [address] [place] [id number] 17 May, 2015 Lumbar radicular pain 724.4 and Dysuria 788.1 [facility] [address] [facility] [id number] [address] [place] [id number] 08 May, 2015 Rheumatoid arthritis 714.0 ; Lumbar radicular pain 724.4 ; Burn 949.0 and Thoracic back pain 724.1 [facility] [address] [id number] [address] [place] [id number] May, [facility] [address] [id number] [address] [place] [phone] May, [facility] [address] [facility] [id number] [address] [place] [id number] Apr, [facility] [address] [id number] [address] [place] [id number] Mar, Hyperlipidemia 272.4 [facility] [address] [facility] [id number] [address] [place] [id number] Mar, [facility] [address] [facility] [id number] [address] [place] [id number] Mar, [facility] [address] [facility] [id number] [address] [place] [id number] Mar, Diarrhea 787.91 ; Chronic ki dney disease, unspecified 585.9 ; Hyperlipidemia 272.4 and Asthma 493.90 [facility] [address] [facility] [id number] [address] [place] [id number] Mar, [facility] [address] [facility] [id number] [address] [place] [id number] Mar, Gastroenteritis 558.9 [facility] [address] [facility] [id number] [address] [place] [id number] Feb, [facility] [address] [id number] [address] [place] [id number] January, [facility] [address] [facility] [id number] [address] [place] [id number] January, [facility] [address] [facility] [id number] [address] [place] [id number] Dec, [facility] [address] [facility] [id number] [address] [place] [id number] Dec, [facility] [address] [id number] [address] [place] [address], [place] [id number] 20 Nov, 2014 [facility] [address] [id number] [address] [place] [address], [place] [id number] 20 Nov, 2014 [facility] [address] [id number] [address] [place] [address], [place] [id number] 19 Nov, 2014 [facility] [address] [id number] [address] [place] [address], [place] [id number] 19 Nov, 2014 [facility] [address] [id number] [address] [place] [address], [place] [id number] Nov, [facility] [address] [id number] [address] [place] [address], [place] [id number] Nov, [facility] [address] [id number] [address] [place] [address], [place] [id number] 16 Oct, 2014 [facility] [address] [id number] [address] [place] [address], [place] [address] Oct, [facility] [address] [id number] [address] [place] [address], [place] [address] Sep, [facility] [address] [id number] [address] [place] [address], [place] [address] Sep, [facility] [address] [id number] [address] [place] [address], [place] [address] Sep, [facility] [address] [id number] [address] [place] [address], [place] [address] Sep, [facility] [address] [id number] [address] [place] [address], [place] [address] Sep, [facility] [address] [id number] [address] [place] [address], [place] [address] Sep, [facility] [address] [id number] [address] [place] [address], [place] [address] Aug, [facility] [address] [id number] [address] [place] [address], [place] [address] Aug, [facility] [address] [id number] [address] [place] [address], [place] [address] Aug, [facility] [address] [id number] [address] [place] [address], [place] [address] Aug, [facility] [address] [id number] [address] [place] [address], [place] [address] Jul, [facility] [address] [id number] [address] [place] [address], [place] [address] Jul, [facility] [address] [id number] [address] [place] [address], [place] [address] Jul, [facility] [address] [id number] [address] [place] [address], [place] [address] Jul, [facility] [address] [id number] [address] [place] [address], [place] [address] Jul, [facility] [address] [id number] [address] [place] [address], [place] [address] Jul, [facility] [address] [id number] [address] [place] [address], [place] [address] Jul, [facility] [address] [id number] [address] [place] [address], [place] [address] Jul, [facility] [address] [id number] [address] [place] [address], [place] [address] Jul, [facility] [address] [id number] [address] [place] [id number] Jun, [facility] [address] [id number] [address] [place] [address], [place] [address] Jun, [facility] [address] [id number] [address] [place] [address], [place] [address] Jun, [facility] [address] [id number] [address] [place] [address], [place] [address] May, [facility] [address] [id number] [facility] [place] [address] 25 Sep, 2013 [facility] [address] [id number] [address] [place] [address], [place] [address] 24 Sep, 2013 [facility] [address] [id number] [address] [place] [address], [place] [address] 24 Sep, 2013 [facility] [address] [id number] [address] [place] [address], [place] [address] 24 Sep, 2013 [facility] [address] [id number] [address] [place] [address], [place] [address] 24 Sep, 2013 [facility] [address] [id number] [address] [place] [address], [place] [address] 19 Sep, 2013 [facility] [address] [id number] [address] [place] [address], [place] [address] 19 May, 2013 [facility] [address] [id number] [address] [place] [address], [place] [address] 11 May, 2013 [facility] [address] [id number] [address] [place] [address], [place] [address] 11 May, 2013 [facility] [address] [id number] [address] [place] [address], [place] [address] 11 May, 2013 [facility] [address] [id number] [address] [place] [address], [place] [address] 11 May, 2013 [facility] [address] [id number] [address] [place] [address], [place] [address] 10 May, 2013 [facility] [address] [id number] [address] [place] [address], [place] [address] 09 Sep, 2013 [facility] [address] [id number] [address] [place] [address], [place] [address] 09 Sep, 2013 [facility] [address] [id number] [address] [place] [address], [place] [address] 08 May, 2013 [facility] [address] [id number] [address] [place] [address], [place] [address] 22 Apr, 2014 [facility] [address] [facility] [id number] [address] [place] [id number] Apr, [facility] [address] [facility] [id number] [address] [place] [id number] Aug, [facility] [address] 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
--- OUTSIDE RECORDS SUMMARY | 2020-02-27 15:48 | XMS REPORT ---
Author Author Beba CORBIN [facility] Address [address] [place] [address] Care Team Providers Care Human Factors Specialist Name Role Phone EMERALD EDWARD Unavailable PROBLEMS Type Condition ICD9-CM Code SPU31-WC Code Onset Dates Condition S tatus SNOMED Code Problem Osteoporosis M81.0 Active 6082656 6 Problem Chronic pain syndrome G89.4 Active 695262045 Problem Moderate persistent asthma with acute exacerbation J45.41 Active 446583993370152 Problem Lumbago with sciatica, right side M54.41 Active 161540764746770 Problem Chronic constipation K59.00 Active 104621198 Problem Lumbago with sciatica, left side M54.42 Active 162031493 Problem Chronic kidney disease, stage 1 N18.1 Active 467611746 Problem Severe episode of recurrent major depressive disorder, without psychotic features F33.2 Active 67489350 Problem Asthma exacerbation J45.901 Active 214528941 Problem Moderate persistent asthma without complication J4 5.40 Active 339592593 Problem Generalized anxiety disorder F41.1 A ctive 14461851 Problem Pernicious anemia D51.0 Active 84 501254 Problem Hyperlipidemia, unspecified hyperlipidemia E78.5 Active 38698251 Problem Essential hypertension I10 Active 87484673 Problem Vitamin D deficiency E55.9 Active 83066810 Problem Chronic prescription opiate use Z79.899 Active 515467414 Problem Colon wall thickening K63.9 Active 377888851 Problem Rheumatoid arthritis involvi ng multiple sites with positive rheumatoid factor M05.89 Active 510678368 Problem Bladder wall thickening N32.89 Active 405220464 Problem Atrophy of left kidney N26.1 Active 748847467 Problem Gastroesophageal reflux disease, esophagitis pre sence not specified K21.9 Active 730823088 ALLERGIES No Information ENCOUNTERS Encounter Location Date Diagnosis [facility] [address] [facility] [id number] [address] [place] [address] Mar, High ankle sprain of right l ower extremity, subsequent encounter S93.431D ; Lumbago with sciatica, left side M54.42 and Lumbago with sciatica, right side M54.41 [facility] [address] [id number] [address] [place] [phone] Mar, [facility] [address] [id number] [address] [place] [phone] Mar, Chronic pain syndrome G89.4 [facility] [address] [id number] [address] [place] [id number] Mar, [facility] [address] [id number] [address] [place] [address] Mar, Asthma exacerbation J45.901 and Sprain of right ankle, unspecified ligament, subsequent encounter S93.401D [facility] [address] [id number] [address] [place] [address] Feb, Injury of right ankle, initi al encounter S99.911A [facility] [address] [id number] [address] [place] [address] Feb, Chronic pain syndrome G89.4 [facility] [address] [id number] [address] [place] [address] Feb, Chronic pain syndrome G89.4 [facility] [address] [id number] [address] [place] [address] Feb, Moderate persistent asthma w ith acute exacerbation J45.41 and Persistent cough for 3 weeks or longer R05 [facility] [address] [id number] [address] [place] [address] January, [facility] [address] [id number] [address] [place] [address] January, Moderate persistent asthma w ith acute exacerbation J45.41 [facility] [address] [id number] [address] [place] [phone] January, Chronic pain syndrome G89.4 [facility] [address] [facility] [id number] [address] [place] [id number] 14 Jan, 2018 Tachycardia R00.0 and Modera te persistent asthma with acute exacerbation J45.41 [facility] [address] [facility] [id number] [address] [place] [address] 11 Jan, 2018 Tachycardia R00.0 ; Moderate persistent asthma with acute exacerbation J45.41 ; Gastroesophageal reflux disease, esophagitis presence not specified K21.9 ; Hyperlipidemia, unspecified hyperlipidemia E78.5 and Chronic pain syndrome G89.4 [place] [address] [facility] [id number] [address] [place] [address] Dec, Medicare annual wellness vis it, initial [...] and Chronic pain syndrome G89.4 [place] [address] [facility] [id number] [address] [place] [address] Dec, Chronic pain syndrome G89.4 [place] [address] [place] [id number] [address] [place] [id number] Dec, [place] [address] [facility] [id number] [address] [place] [address] Nov, [place] [address] [place] [id number] [address] [place] [address] Nov, Chronic pain syndrome G89.4 [place] [address] [facility] [id number] [address] [place] [address] Oct, Chronic pain syndrome G89.4 [place] [address] [place] [id number] [address] [place] [id number] 08 Oct, 2017 Chronic kidney disease, stag e 1 N18.1 [facility] [address] [facility] [id number] [address] [place] [address] Oct, Chronic prescription opiate use Z79.899 ; Cough R05 ; Asthma exacerbation J45.901 ; Elevated liver enzymes R74.8 ; Rheumatoid arthritis involving multiple sites with positive rheumatoid factor M05.89 and Chronic pain syndrome G89.4 [facility] [address] [facility] [id number] [address] [place] [address] Sep, Chronic pain syndrome G89.4 [facility] [address] [facility] [id number] [address] [place] [address] Sep, [place] [address] [facility] [id number] [address] [place] [address] Aug, Acute bronchitis, unspecifie d organism J20.9 [place] [address] [facility] [id number] [address] [place] [address] Aug, Chronic pain syndrome G89.4 [facility] [address] [facility] [id number] [address] [place] [address] Jul, Chronic pain syndrome G89.4 [place] [address] [facility] [id number] [address] [place] [address] Jun, Chronic pain syndrome G89.4 [facility] [address] [facility] [id number] [address] [place] [address] May, Rheumatoid arthritis involvi ng multiple sites with positive rheumatoid factor M05.89 [facility] [address] [facility] [id number] [address] [place] [address] May, Gastroesophageal reflux dise ase, esophagitis presence not specified K21.9 and Chronic pain syndrome G89.4 [facility] [address] [facility] [id number] [address] [place] [address] May, [facility] [address] [facility] [id number] [address] [place] [address] May, Esophageal candidiasis B37.8 1 and Chronic kidney disease, stage 1 N18.1 [facility] [address] [facility] [id number] [address] [place] [address] 11 May, 2017 Chronic kidney disease, stag e 1 N18.1 [facility] [address] [facility] [id number] [address] [place] [address] 05 May, 2017 Cough R05 ; Fever, unspecifi ed fever cause R50.9 ; Rheumatoid arthritis involving multiple sites with positive rheumatoid factor M05.89 and Chronic prescription opiate use Z79.899 [facility] [address] [facility] [id number] [address] [place] [address] Apr, [place] [address] [facility] [id number] [address] [place] [address] Apr, Cough R05 [place] [address] [place] [id number] [place] [address] Apr, Asthma exacerbation J45.901 [place] [address] [place] [id number] [address] [place] [address] Apr, [place] [address] [place] [id number] [address] [place] [address] Apr, Generalized anxiety disorder F41.1 and Severe episode of recurrent major depressive disorder, without psychotic features F33.2 [place] [address] [place] [id number] [address] [place] [address] Mar, [place] [address] [place] [id number] [address] [place] [address] Feb, Chronic pain syndrome G89.4 [place] [address] [place] [id number] [address] [place] [address] Feb, Acute non-recurrent maxillar y sinusitis J01.00 [place] [address] [place] [id number] [address] [place] [address] Feb, Acute non-recurrent frontal sinusitis J01.10 [place] [address] [place] [id number] [address] [place] [address] Feb, Chronic pain syndrome G89.4 [facility] [address] [facility] [id number] [address] [place] [address] January, Acute cystitis with hematuri a N30.01 [facility] [address] [facility] [id number] [address] [place] [address] January, Acute cystitis with hematuri a N30.01 ; Dysuria R30.0 and Moderate persistent asthma with acute exacerbation J45.41 [place] [address] [facility] [id number] [address] [place] [address] January, [place] [address] [place] [id number] [place] [address] January, Chronic pain syndrome G89.4 [place] [address] [place] [id number] [place] [address] January, Asthma exacerbation J45.901 [place] [address] [place] [id number] [address] [place] [address] January, Asthma exacerbation J45.901 [place] [address] [place] [id number] [address] [place] [address] Dec, Cough R05 ; Numbness in both hands R20.0 ; Ground glass opacity present on imaging of lung R91.8 ; Hypoxia R09.02 and Asthma exacerbation J45.901 [place] [address] [place] [id number] [address] [place] [address] Dec, Chronic pain syndrome G89.4 [place] [address] [place] [id number] [address] [place] [address] Nov, Chronic prescription opiate use Z79.899 ; Rheumatoid arthritis involving multiple sites with positive rheumatoid factor M05.89 ; Moderate persistent asthma with acute exacerbation J45.41 ; Pneumonia of right lower lobe due to infectious organism J18.1 ; Chronic pain syndrome G89.4 ; Gastroesophageal reflux disease, esophagitis presence not specified K21.9 and Hyperlipidemia, unspecified hyperlipidemia E78.5 [place] [address] [place] [id number] [address] [place] [address] Nov, Rheumatoid arthritis involvi ng multiple sites with positive rheumatoid factor M05.89 [facility] [address] [facility] [id number] [address] [place] [address] Oct, [facility] [address] [place] [id number] [address] [place] [address] Oct, Essential hypertension I10 [place] [address] [place] [id number] [address] [place] [address] Sep, Hypoxia R09.02 and Ground gl ass opacity present on imaging of lung R91.8 [place] [address] [address] Sep, Moderate persistent asthma w ith acute exacerbation J45.41 [facility] [address] [place] [id number] [place] [id number] Sep, [place] [address] [place] [id number] [address] [place] [address] Sep, Chronic constipation K59.00 and Moderate persistent asthma with acute exacerbation J45.41 [place] [address] [place] [id number] [address] [place] [address] Sep, Moderate persistent asthma w ith acute exacerbation J45.41 [place] [id number] [place] [address] Aug, [facility] [address] [facility] [id number] [address] [place] [address] Aug, [facility] [address] [facility] [id number] [address] [place] [address] Aug, [facility] [address] [place] [id number] [address] [place] [address] Aug, Rheumatoid arthritis involvi ng multiple sites with positive rheumatoid factor M05.89 ; Essential hypertension I10 ; Hyperlipidemia, unspecified hyperlipidemia E78.5 ; Chronic constipation K59.00 and Moderate persistent asthma with acute exacerbation J45.41 [facility] [address] [facility] [id number] [address] [place] [address] Aug, Bronchitis J40 [facility] [address] [facility] [id number] [address] [place] [address] Aug, Rheumatoid arthritis involvi ng multiple sites with positive rheumatoid factor M05.89 [facility] [address] [facility] [id number] [address] [place] [address] Aug, Pharyngitis, unspecified pablito ology J02.9 and Acute nasopharyngitis J00 [place] [address] [facility] [id number] [address] [place] [address] Aug, [place] [address] [facility] [id number] [address] [place] [address] Jul, [place] [address] [place] [id number] [place] [address] Jul, Rheumatoid arthritis involvi ng multiple sites with positive rheumatoid factor M05.89 ; Essential hypertension I10 ; Hyperlipidemia, unspecified hyperlipidemia E78.5 ; Rash R21 ; Mild persistent asthma with acute exacerbation J45.31 ; Hematuria R31.9 ; Osteoporosis M81.0 and Gastroesophageal reflux disease, esophagitis presence not specified K21.9 [facility] [address] [place] [id number] [address] [place] [address] 18 Jun, 2016 [facility] [address] [place] [id number] [address] [place] [address] Jun, Dysuria R30.0 [facility] [address] [facility] [id number] [address] [place] [id number] 05 Jun, 2016 Acute non-recurrent maxillar y sinusitis J01.00 and Dysuria R30.0 [facility] [address] [facility] [id number] [address] [place] [address] 16 May, 2016 [facility] [address] [place] [id number] [address] [place] [address] 15 May, 2016 [facility] [address] [place] [id number] [address] [place] [address] Apr, Chronic prescription opiate use Z79.899 and Rheumatoid arthritis involving multiple sites with positive rheumatoid factor M05.89 [facility] [address] [place] [id number] [address] [place] [address] Mar, [facility] [address] [place] [id number] [address] [place] [address] Feb, Dizziness of unknown cause R 42 and Other chronic pain G89.29 [place] [address] [place] [id number] [address] [place] [address] Feb, [place] [address] [address] Feb, Shortness of breath R06.02 [place] [address] [place] [id number] [place] [address] January, [place] [address] [address] January, Rheumatoid arthritis involvi ng multiple sites with positive rheumatoid factor M05.89 ; Chronic prescription opiate use Z79.899 ; Hyperlipidemia, unspecified hyperlipidemia E78.5 ; Cough R05 ; Exposure to pneumonia Z20.828 ; Diarrhea, unspecified type R19.7 ; Weight loss R63.4 ; Lumbago with sciatica, right side M54.41 and Lumbago with sciatica, left side M54.42 [place] [address] [place] [address] Dec, [place] [address] [place] [id number] [address] [place] [address] Dec, Bronchitis J40 [place] [address] [place] [id number] [address] [place] [address] Nov, [place] [address] [place] [id number] [address] [place] [address] Nov, [place] [address] [place] [address] Nov, [facility] [address] [facility] [id number] [address] [place] [address] Nov, Bloody diarrhea R19.7 ; [place] n wall thickening K63.9 ; Shortness of breath R06.02 and Bladder wall thickening N32.89 [facility] [address] [id number] [address] [place] [address] [id number] 15 Oct, 2015 Dental examination Z01.20 [facility] [address] [facility] [id number] [address] [place] [address] 15 Oct, 2015 [facility] [address] [facility] [id number] [place] [phone] 15 Oct, 2015 Toothache K08.8 [facility] [address] [place] [id number] [address] [place] [address] [id number] 11 Oct, 2015 Dental examination Z01.20 [facility] [address] [place] [id number] [address] [place] [address] 02 Oct, 2015 [facility] [address] [place] [id number] [address] [place] [address] Sep, [facility] [address] [place] [id number] [place] [address] Sep, Burning with urination R30.0 [place] [address] [place] [id number] [place] [address] Sep, Hematuria R31.9 ; Rheumatoid arthritis involving multiple sites with positive rheumatoid factor M05.89 and Rheumatoid arthritis flare M06.9 [facility] [address] [facility] [id number] [address] [place] [address] Aug, Hyperlipidemia, unspecified hyperlipidemia E78.5 and Hematuria R31.9 [facility] [address] [facility] [id number] [address] [place] [address] Aug, Hematuria R31.9 ; Chronic ki dney disease, stage 1 N18.1 and Hyperlipidemia, unspecified hyperlipidemia E78.5 [facility] [address] [facility] [id number] [address] [place] [address] Aug, Rheumatoid arthritis involvi ng multiple sites with positive rheumatoid factor M05.89 ; Asthma exacerbation J45.901 ; Hematuria R31.9 ; Hyperlipidemia, unspecified hyperlipidemia E78.5 and Chronic kidney disease, stage 1 N18.1 [facility] [address] [facility] [id number] [address] [place] [address] Aug, [facility] [address] [facility] [id number] [address] [place] [address] Jul, [place] [address] [place] [id number] [place] [address] Jul, Lumbosacral radiculopathy M5 4.17 [place] [address] [place] [id number] [address] [place] [address] Jul, [place] [address] [place] [id number] [address] [place] [address] Jun, Rheumatoid arthritis involvi ng multiple sites with positive rheumatoid factor M05.89 ; Hyperlipidemia, unspecified hyperlipidemia E78.5 ; Lumbosacral radiculopathy M54.17 ; Carpal tunnel syndrome, right upper limb G56.01 and Carpal tunnel syndrome, left upper limb G56.02 [place] [address] [place] [id number] [address] [place] [address] Jun, [place] [address] [place] [id number] [address] [place] [phone] 17 May, 2015 Lumbar radicular pain 724.4 and Dysuria 788.1 [place] [address] [place] [id number] [place] [phone] 08 May, 2015 Rheumatoid arthritis 714.0 ; Lumbar radicular pain 724.4 ; Burn 949.0 and Thoracic back pain 724.1 [place] [address] [place] [id number] [address] [place] [address] May, [facility] [address] [id number] [address] [place] [address] May, [facility] [address] [id number] [address] [place] [address] Apr, [facility] [address] [id number] [address] [place] [phone] Mar, Hyperlipidemia 272.4 [facility] [address] [id number] [address] [place] [address] Mar, [facility] [address] [facility] [id number] [address] [place] [address] Mar, [facility] [address] [id number] [address] [place] [address] Mar, Diarrhea 787.91 ; Chronic ki dney disease, unspecified 585.9 ; Hyperlipidemia 272.4 and Asthma 493.90 [facility] [address] [id number] [address] [place] [phone] Mar, [facility] [address] [id number] [address] [place] [phone] Mar, Gastroenteritis 558.9 [facility] [address] [facility] [id number] [address] [place] [phone] Feb, [facility] [address] [id number] [address] [place] [phone] January, [facility] [address] [id number] [address] [place] [phone] January, [facility] [address] [id number] [address] [place] [phone] Dec, [facility] [address] [id number] [address] [place] [id number] Dec, [facility] [address] [facility] [id number] [address] [place] [phone] Nov, [facility] [address] [id number] [address] [place] [address] [place] [phone] 20 Nov, 2014 [facility] [address] [id number] [address] [place] [address], [place] [address] Nov, [facility] [address] [id number] [address] [place] [address], [place] [address] Nov, [facility] [address] [id number] [address] [place] [address], [place] [address] Nov, [facility] [address] [id number] [address] [place] [address], [place] [address] Nov, [facility] [address] [id number] [address] [place] [address], [place] [address] Oct, [facility] [address] [id number] [address] [place] [address], [place] [address] Oct, [facility] [address] [id number] [address] [place] [address], [place] [address] Sep, [facility] [address] [id number] [address] [place] [address], [place] [address] Sep, [facility] [address] [id number] [address] [place] [address], [place] [address] Sep, [facility] [address] [id number] [address] [place] [address], [place] [address] Sep, [facility] [address] [id number] [address] [place] [address], [place] [address] Sep, [facility] [address] [id number] [address] [place] [address], [place] [address] Sep, [facility] [address] [id number] [address] [place] [address], [place] [address] Aug, [facility] [address] [id number] [address] [place] [address], [place] [address] Aug, [facility] [address] [id number] [address] [place] [address], [place] [address] Aug, [facility] [address] [id number] [address] [place] [address], [place] [address] Aug, [facility] [address] [id number] [address] [place] [address], [place] [address] Jul, [facility] [address] [id number] [address] [place] [address], [place] [address] Jul, [facility] [address] [id number] [address] [place] [address], [place] [address] Jul, [facility] [address] [id number] [address] [place] [address], [place] [address] Jul, [facility] [address] [id number] [address] [place] [address], [place] [address] Jul, [facility] [address] [id number] [address] [place] [address], [place] [address] Jul, [facility] [address] [id number] [address] [place] [address], [place] [address] Jul, [facility] [address] [id number] [address] [place] [address], [place] [address] Jul, [facility] [address] [id number] [address] [place] [address], [place] [address] Jul, [facility] [address] [id number] [address] [place] [address], [place] [address] Jun, [facility] [address] [id number] [address] [place] [address], [place] [address] Jun, [facility] [address] [id number] [address] [place] [address], [place] [address] Jun, [facility] [address] [id number] [address] [place] [address], [place] [address] May, [facility] [address] [id number] [address] [place] [address], [place] [address] May, [facility] [address] [id number] [address] [place] [address], [place] [address] 24 May, 2013 [facility] [address] [id number] [address] [place] [address], [place] [address] 24 Sep, 2013 [facility] [address] [id number] [address] [place] [address], [place] [address] 24 May, 2013 [facility] [address] [id number] [address] [place] [address], [place] [address] 24 May, 2013 [facility] [address] [id number] [address] [place] [address], [place] [address] 19 May, 2013 [facility] [address] [id number] [address] [place] [address], [place] [address] 19 May, 2013 [facility] [address] [id number] [address] [place] [address], [place] [address] 11 May, 2013 [facility] [address] [id number] [address] [place] [address], [place] [address] 11 May, 2013 [facility] [address] [id number] [address] [place] [address], [place] [address] 11 May, 2013 [facility] [address] [id number] [address] [place] [address], [place] [address] 11 May, 2013 [facility] [address] [id number] [address] [place] [address], [place] [address] 10 May, 2013 [facility] [address] [id number] [address] [place] [address], [place] [address] 09 May, 2013 [facility] [address] [id number] [address] [place] [address], [place] [address] 09 May, 2013 [facility] [address] [id number] [address] [place] [address], [place] [address] 08 May, 2013 [facility] [address] [id number] [address] [place] [address], [place] [address] Apr, [facility] [address] [id number] [address] [place] [address], [place] [address] Apr, [facility] [address] [id number] [address] [place] [address] Aug, [facility] [address] [facility] [id number] [address] [place] [address] Jul, IMMUNIZATIONS No Known Immunizations SOCIAL HISTORY Never Assessed REASON FOR VISIT Requests return call PLAN OF CARE VITAL SIGNS MEDICATIONS No [...]
--- OUTSIDE RECORDS SUMMARY | 2020-02-27 15:48 | XMS REPORT ---
Author Author Beba CORBIN [facility] Address [address] [place] [address] Care Team Providers Care Guest Service Supervisor Name Role Phone EMERALDSTUARTEDWARD Unavailable PROBLEMS Type Condition ICD9-CM Code MOC84-VS Code Onset Dates Condition S tatus SNOMED Code Problem Osteoporosis M81.0 Active 6170001 6 Problem Chronic pain syndrome G89.4 Active 009869521 Problem Moderate persistent asthma with acute exacerbation J45.41 Active 680066621861624 Problem Lumbago with sciatica, right side M54.41 Active 852514518322616 Problem Chronic constipation K59.00 Active 257356433 Problem Lumbago with sciatica, left side M54.42 Active 831481330 Problem Chronic kidney disease, stage 1 N18.1 Active 968578349 Problem Severe episode of recurrent major depressive disorder, without psychotic features F33.2 Active 94111092 Problem Asthma exacerbation J45.901 Active 598063421 Problem Moderate persistent asthma without complication J4 5.40 Active 483454257 Problem Generalized anxiety disorder F41.1 A ctive 57382083 Problem Pernicious anemia D51.0 Active 84 953571 Problem Hyperlipidemia, unspecified hyperlipidemia E78.5 Active 41337221 Problem Essential hypertension I10 Active 49954811 Problem Vitamin D deficiency E55.9 Active 64555018 Problem Chronic prescription opiate use Z79.899 Active 910021841 Problem Colon wall thickening K63.9 Active 274789643 Problem Rheumatoid arthritis involvi ng multiple sites with positive rheumatoid factor M05.89 Active 871416576 Problem Bladder wall thickening N32.89 Active 791374308 Problem Atrophy of left kidney N26.1 Active 252382243 Problem Gastroesophageal reflux disease, esophagitis pre sence not specified K21.9 Active 135109148 ALLERGIES Substance Reaction Event Type Date Status Penicillin V Potassium Cannot tolerate Oral PCN. St ates she can tolerate injections Drug Allergy January, Active Orencia Unknown Drug Allergy January, Active Cipro Unknown Drug Allergy January, Active Codeine Unknown Drug Allergy January, Active Ivp Dye anaphylaxis Non Drug Allergy January, Active ENCOUNTERS Encounter Location Date Diagnosis [facility] [id number] [place] [address] Mar, High ankle sprain of right l ower extremity, subsequent encounter S93.431D ; Lumbago with sciatica, left side M54.42 and Lumbago with sciatica, right side M54.41 [facility] [address] [facility] [id number] [address] [place] [address] Mar, [place] [address] [place] [id number] [place] [address] Mar, Chronic pain syndrome G89.4 [facility] [address] [place] [address] Mar, [place] [address] [place] [id number] [place] [address] Mar, Asthma exacerbation J45.901 and Sprain of right ankle, unspecified ligament, subsequent encounter S93.401D [facility] [address] [place] [id number] [place] [address] Feb, Injury of right ankle, initi al encounter S99.911A [facility] [address] [place] [id number] [place] [address] Feb, Chronic pain syndrome G89.4 [facility] [address] [place] [id number] [place] [address] Feb, Chronic pain syndrome G89.4 [place] [address] [place] [id number] [place] [address] Feb, Moderate persistent asthma w ith acute exacerbation J45.41 and Persistent cough for 3 weeks or longer R05 [facility] [address] [place] [id number] [place] [address] January, [facility] [address] [place] [id number] [place] [address] 24 Jan, 2018 Moderate persistent asthma w ith acute exacerbation J45.41 [place] [address] [place] [id number] [place] [address] January, Chronic pain syndrome G89.4 [place] [address] [place] [id number] [place] [address] 14 Jan, 2018 Tachycardia R00.0 and Modera te persistent asthma with acute exacerbation J45.41 [place] [address] [facility] [id number] [address] [place] [address] 11 Jan, 2018 Tachycardia R00.0 ; Moderate persistent asthma with acute exacerbation J45.41 ; Gastroesophageal reflux disease, esophagitis presence not specified K21.9 ; Hyperlipidemia, unspecified hyperlipidemia E78.5 and Chronic pain syndrome G89.4 [place] [address] [place] [id number] [place] [address] Dec, Medicare annual wellness vis it, initial [...] immunization Z23 and Chronic pain syndrome G89.4 [place] [address] [facility] [id number] [address] [place] [address] Dec, Chronic pain syndrome G89.4 [place] [address] [place] [id number] [place] [address] Dec, [place] [address] [place] [id number] [place] [address] Nov, [place] [address] [place] [id number] [place] [address] Nov, Chronic pain syndrome G89.4 [place] [address] [place] [address] Oct, Chronic pain syndrome G89.4 [place] [address] [place] [id number] [place] [address] 08 Oct, 2017 Chronic kidney disease, stag e 1 N18.1 [place] [address] [address] Oct, Chronic prescription opiate use Z79.899 ; Cough R05 ; Asthma exacerbation J45.901 ; Elevated liver enzymes R74.8 ; Rheumatoid arthritis involving multiple sites with positive rheumatoid factor M05.89 and Chronic pain syndrome G89.4 [place] [address] [place] [id number] [place] [address] Sep, Chronic pain syndrome G89.4 [place] [address] [place] [id number] [place] [address] Sep, [place] [address] [place] [id number] [place] [address] Aug, Acute bronchitis, unspecifie d organism J20.9 [place] [address] [address] Aug, Chronic pain syndrome G89.4 [place] [address] [place] [id number] [place] [address] Jul, Chronic pain syndrome G89.4 [place] [address] [place] [id number] [place] [address] Jun, Chronic pain syndrome G89.4 [place] [address] [place] [id number] [place] [address] May, Rheumatoid arthritis involvi ng multiple sites with positive rheumatoid factor M05.89 [place] [address] [place] [id number] [place] [address] May, Gastroesophageal reflux dise ase, esophagitis presence not specified K21.9 and Chronic pain syndrome G89.4 [place] [address] [facility] [id number] [address] [place] [address] May, [facility] [address] [facility] [id number] [address] [place] [address] May, Chronic kidney disease, stag e 1 N18.1 and Esophageal candidiasis B37.81 [facility] [address] [facility] [id number] [address] [place] [address] May, Chronic kidney disease, stag e 1 N18.1 [facility] [address] [facility] [id number] [address] [place] [address] May, Cough R05 ; Fever, unspecifi ed fever cause R50.9 ; Rheumatoid arthritis involving multiple sites with positive rheumatoid factor M05.89 and Chronic prescription opiate use Z79.899 [facility] [address] [place] [id number] [place] [address] Apr, [place] [address] [place] [id number] [place] [address] Apr, Cough R05 [facility] [address] [facility] [id number] [address] [place] [address] Apr, Asthma exacerbation J45.901 [place] [address] [place] [id number] [place] [address] Apr, [facility] [address] [place] [id number] [place] [address] Apr, Generalized anxiety disorder F41.1 and Severe episode of recurrent major depressive disorder, without psychotic features F33.2 [facility] [address] [facility] [id number] [address] [place] [address] Mar, [place] [address] [place] [id number] [place] [address] Feb, Chronic pain syndrome G89.4 [facility] [address] [place] [id number] [place] [address] Feb, Acute non-recurrent maxillar y sinusitis J01.00 [facility] [address] [id number] [address] [place] [address] Feb, Acute non-recurrent frontal sinusitis J01.10 [facility] [address] [id number] [address] [place] [address] Feb, Chronic pain syndrome G89.4 [facility] [address] [id number] [address] [place] [address] January, Acute cystitis with hematuri a N30.01 [facility] [address] [id number] [address] [place] [address] January, Acute cystitis with hematuri a N30.01 ; Dysuria R30.0 and Moderate persistent asthma with acute exacerbation J45.41 [place] [address] [facility] [id number] [address] [place] [address] January, [place] [address] [facility] [id number] [address] [place] [address] January, Chronic pain syndrome G89.4 [facility] [address] [facility] [id number] [address] [place] [address] January, Asthma exacerbation J45.901 [place] [address] [facility] [id number] [address] [place] [address] January, Asthma exacerbation J45.901 [place] [address] [facility] [id number] [address] [place] [address] Dec, Cough R05 ; Numbness in both hands R20.0 ; Ground glass opacity present on imaging of lung R91.8 ; Hypoxia R09.02 and Asthma exacerbation J45.901 [place] [address] [facility] [id number] [address] [place] [address] Dec, Chronic pain syndrome G89.4 [place] [address] [facility] [id number] [address] [place] [address] Nov, Chronic prescription opiate use Z79.899 ; Rheumatoid arthritis involving multiple sites with positive rheumatoid factor M05.89 ; Moderate persistent asthma with acute exacerbation J45.41 ; Pneumonia of right lower lobe due to infectious organism J18.1 ; Chronic pain syndrome G89.4 ; Gastroesophageal reflux disease, esophagitis presence not specified K21.9 and Hyperlipidemia, unspecified hyperlipidemia E78.5 [facility] [address] [address] Nov, Rheumatoid arthritis involvi ng multiple sites with positive rheumatoid factor M05.89 [place] [address] [address] Oct, [place] [address] [address] Oct, Essential hypertension I10 [address] [address] Sep, Hypoxia R09.02 and Ground gl ass opacity present on imaging of lung R91.[address] [address] Sep, Moderate persistent asthma w ith acute exacerbation J45.41 [facility] [address] [id number] Sep, [place] [address] [address] Sep, Chronic constipation K59.00 and Moderate persistent asthma with acute exacerbation J45.41 [place] [address] [address] Sep, Moderate persistent asthma w ith acute exacerbation J45.41 [place] [address] [address] Aug, [place] [address] [address] Aug, [place] [address] [address] Aug, [place] [address] [facility] [id number] [address] [place] [address] Aug, Rheumatoid arthritis involvi ng multiple sites with positive rheumatoid factor M05.89 ; Essential hypertension I10 ; Hyperlipidemia, unspecified hyperlipidemia E78.5 ; Chronic constipation K59.00 and Moderate persistent asthma with acute exacerbation J45.41 [place] [address] [place] [id number] [place] [address] Aug, Bronchitis J40 [facility] [address] [place] [id number] [place] [address] Aug, Rheumatoid arthritis involvi ng multiple sites with positive rheumatoid factor M05.89 [place] [address] [place] [id number] [place] [address] Aug, Pharyngitis, unspecified pablito ology J02.9 and Acute nasopharyngitis J00 [place] [address] [place] [id number] [place] [address] Aug, [facility] [address] [place] [id number] [place] [address] Jul, [place] [address] [place] [id number] [place] [address] Jul, Rheumatoid arthritis involvi ng multiple sites with positive rheumatoid factor M05.89 ; Essential hypertension I10 ; Hyperlipidemia, unspecified hyperlipidemia E78.5 ; Rash R21 ; Mild persistent asthma with acute exacerbation J45.31 ; Hematuria R31.9 ; Osteoporosis M81.0 and Gastroesophageal reflux disease, esophagitis presence not specified K21.9 [facility] [address] [facility] [id number] [address] [place] [address] Jun, [place] [address] [address] Jun, Dysuria R30.0 [facility] [address] [place] [id number] [place] [address] Jun, Acute non-recurrent maxillar y sinusitis J01.00 and Dysuria R30.0 [facility] [address] [facility] [id number] [address] [place] [address] 16 May, 2016 [facility] [address] [address] May, [facility] [address] [place] [id number] [place] [address] Apr, Chronic prescription opiate use Z79.899 and Rheumatoid arthritis involving multiple sites with positive rheumatoid factor M05.89 [facility] [address] [place] [id number] [place] [address] Mar, [facility] [address] [address] Feb, Dizziness of unknown cause R 42 and Other chronic pain G89.29 [place] [address] [address] Feb, [facility] [address] [address] Feb, Shortness of breath R06.02 [facility] [address] [address] January, [facility] [address] [place] [id number] [place] [address] January, Rheumatoid arthritis involvi ng multiple sites with positive rheumatoid factor M05.89 ; Chronic prescription opiate use Z79.899 ; Hyperlipidemia, unspecified hyperlipidemia E78.5 ; Cough R05 ; Exposure to pneumonia Z20.828 ; Diarrhea, unspecified type R19.7 ; Weight loss R63.4 ; Lumbago with sciatica, right side M54.41 and Lumbago with sciatica, left side M54.42 [facility] [address] [place] [id number] [place] [address] Dec, [facility] [address] [place] [id number] [place] [address] Dec, Bronchitis J40 [facility] [address] [facility] [id number] [address] [place] [address] Nov, [facility] [address] [id number] [address] [place] [address] Nov, [facility] [address] [id number] [address] [place] [address] Nov, [facility] [address] [facility] [id number] [address] [place] [address] Nov, Bloody diarrhea R19.7 ; [place] n wall thickening K63.9 ; Shortness of breath R06.02 and Bladder wall thickening N32.89 [facility] [id number] [place] [id number] 15 Oct, 2015 Dental examination Z01.20 [facility] [address] [facility] [id number] [address] [place] [address] 15 Oct, 2015 [facility] [address] [facility] [id number] [address] [place] [address] 15 Oct, 2015 Toothache K08.8 [facility] [address] [id number] [address] [place] [id number] Oct, Dental examination Z01.20 [facility] [address] [facility] [id number] [address] [place] [address] 02 Oct, 2015 [facility] [address] [facility] [id number] [address] [place] [address] Sep, [facility] [address] [facility] [id number] [address] [place] [address] 13 Sep, 2015 Burning with urination R30.0 [facility] [address] [facility] [id number] [address] [place] [address] Sep, Hematuria R31.9 ; Rheumatoid arthritis involving multiple sites with positive rheumatoid factor M05.89 and Rheumatoid arthritis flare M06.9 [facility] [address] [facility] [id number] [address] [place] [address] Aug, Hyperlipidemia, unspecified hyperlipidemia E78.5 and Hematuria R31.9 [facility] [address] [id number] [address] [place] [address] Aug, Hematuria R31.9 ; Chronic ki dney disease, stage 1 N18.1 and Hyperlipidemia, unspecified hyperlipidemia E78.5 [facility] [address] [id number] [address] [place] [address] Aug, Rheumatoid arthritis involvi ng multiple sites with positive rheumatoid factor M05.89 ; Asthma exacerbation J45.901 ; Hematuria R31.9 ; Hyperlipidemia, unspecified hyperlipidemia E78.5 and Chronic kidney disease, stage 1 N18.1 [place] [address] [id number] [address] [place] [address] Aug, [place] [address] [id number] [address] [place] [address] Jul, [facility] [address] [id number] [address] [place] [address] Jul, Lumbosacral radiculopathy M5 4.17 [place] [address] [id number] [address] [place] [address] Jul, [place] [address] [facility] [id number] [address] [place] [address] Jun, Rheumatoid arthritis involvi ng multiple sites with positive rheumatoid factor M05.89 ; Hyperlipidemia, unspecified hyperlipidemia E78.5 ; Lumbosacral radiculopathy M54.17 ; Carpal tunnel syndrome, right upper limb G56.01 and Carpal tunnel syndrome, left upper limb G56.02 [facility] [address] [id number] [address] [place] [address] Jun, [place] [address] [facility] [id number] [address] [place] [address] 17 May, 2015 Lumbar radicular pain 724.4 and Dysuria 788.1 [facility] [address] [facility] [id number] [address] [place] [address] May, Rheumatoid arthritis 714.0 ; Lumbar radicular pain 724.4 ; Burn 949.0 and Thoracic back pain 724.1 [facility] [address] [facility] [id number] [address] [place] [address] May, [facility] [address] [place] [id number] [address] [place] [address] May, [facility] [address] [place] [id number] [address] [place] [address] Apr, [facility] [address] [place] [id number] [place] [address] Mar, Hyperlipidemia 272.4 [facility] [address] [place] [id number] [address] [place] [address] Mar, [facility] [address] [place] [id number] [place] [address] Mar, [facility] [address] [place] [id number] [address] [place] [address] Mar, Diarrhea 787.91 ; Chronic ki dney disease, unspecified 585.9 ; Hyperlipidemia 272.4 and Asthma 493.90 [facility] [address] [place] [id number] [address] [place] [address] Mar, [facility] [address] [place] [id number] [address] [place] [address] Mar, Gastroenteritis 558.9 [facility] [address] [place] [id number] [place] [address] Feb, [facility] [address] [place] [id number] [place] [address] January, [facility] [address] [place] [id number] [place] [address] January, [facility] [address] [place] [id number] [address] [place] [address] Dec, [facility] [address] [id number] [address] [place] [address], [place] [address] 13 Dec, 2014 [facility] [address] [id number] [address] [place] [address], [place] [address] Nov, [facility] [address] [id number] [address] [place] [address], [place] [address] 20 Nov, 2014 [facility] [address] [id number] [address] [place] [address], [place] [address] Nov, [facility] [address] [id number] [address] [place] [address], [place] [address] Nov, [facility] [address] [id number] [address] [place] [address], [place] [address] Nov, [facility] [address] [id number] [address] [place] [address], [place] [address] Nov, [facility] [address] [id number] [address] [place] [address], [place] [address] Oct, [facility] [address] [id number] [address] [place] [address], [place] [address] Oct, [facility] [address] [id number] [address] [place] [address], [place] [id number] Sep, [facility] [address] [id number] [address] [place] [address], [place] [id number] Sep, [facility] [address] [id number] [address] [place] [address], [place] [id number] Sep, [facility] [address] [id number] [address] [place] [address], [place] [id number] Sep, [facility] [address] [id number] [address] [place] [address], [place] [id number] Sep, [facility] [address] [id number] [address] [place] [address], [place] [id number] Sep, [facility] [address] [id number] [address] [place] [address], [place] [id number] Aug, [facility] [address] [id number] [address] [place] [address], [place] [address] Aug, [facility] [address] [address] [id number] [address] [place] [address], [place] [address] Aug, [facility] [address] [id number] [address] [place] [address], [place] [address] Aug, [facility] [address] [id number] [address] [place] [address], [place] [address] Jul, [facility] [address] [id number] [address] [place] [address], [place] [address] Jul, [facility] [address] [id number] [address] [place] [address], [place] [address] Jul, [facility] [address] [id number] [address] [place] [address], [place] [address] Jul, [facility] [address] [id number] [address] [place] [address], [place] [address] Jul, [facility] [address] [id number] [address] [place] [address], [place] [address] Jul, [facility] [address] [id number] [address] [place] [address], [place] [address] Jul, [facility] [address] [id number] [address] [place] [address], [place] [address] Jul, [facility] [address] [id number] [address] [place] [address] Jul, [facility] [address] [id number] [address] [place] [address], [place] [address] Jun, [facility] [address] [id number] [address] [place] [address], [place] [address] Jun, [facility] [address] [id number] [address] [place] [address], [place] [address] Jun, [facility] [address] [id number] [address] [place] [address], [place] [address] 25 Sep, 2013 [facility] [address] [id number] [facility] [place] [address] 25 Sep, 2013 [facility] [address] [id number] [address] [place] [address], [place] [address] 24 Sep, 2013 [facility] [address] [id number] [address] [place] [address], [place] [address] 24 Sep, 2013 [facility] [address] [id number] [address] [place] [address], [place] [address] 24 Sep, 2013 [facility] [address] [id number] [address] [place] [address], [place] [address] 24 Sep, 2013 [facility] [address] [id number] [address] [place] [address], [place] [address] 19 Sep, 2013 [facility] [address] [id number] [address] [place] [address], [place] [address] 19 Sep, 2013 [facility] [address] [id number] [address] [place] [address], [place] [address] 11 Sep, 2013 [facility] [address] [id number] [address] [place] [address], [place] [address] 11 Sep, 2013 [facility] [address] [id number] [address] [place] [address], [place] [address] 11 Sep, 2013 [facility] [address] [id number] [address] [place] [address], [place] [address] 11 Sep, 2013 [facility] [address] [id number] [address] [place] [address], [place] [address] 10 Sep, 2013 [facility] [address] [id number] [address] [place] [address], [place] [address] 09 Sep, 2013 [facility] [address] [id number] [address] [place] [address], [place] [address] 09 Sep, 2013 [facility] [address] [id number] [address] [place] [address], [place] [address] 08 Sep, 2013 [facility] [address] [facility] [id number] [address] [place] [address] Apr, [facility] [address] [facility] [id number] [address] [place] [id number] Apr, [facility] [address] [facility] [id number] [address] [place] [id number] Aug, [facility] [address] [facility] [id number] [address] [place] [id number] Jul, IMMUNIZATIONS Vaccine Route Administration Date Status DEPO MEDROL 80 MG/ML IM Intramuscular January 31, 2018 Administer ed SOCIAL HISTORY Never Assessed REASON FOR VISIT cough f/u, minimal improvement-AHarrymanLOLITA PLAN OF CARE Activity Details Follow Up prn after Pulm Reason: VITAL SIGNS Height 66 in 2018-01-31 Weight 157.4 lbs 2018-01-31 Temperature 98.6 degrees Fahrenheit 2018-01-31 Heart Rate 112 bpm 2018-01-31 Respiratory Rate 22 2018-01-31 Oximetry 92 % 2018-01-31 BMI 25.40 kg/m2 2018-01-31 Blood pressure systolic 118 mmHg 2018-01-31 Blood pressure diastolic 78 mmHg 2018-01-31 MEDICATIONS Medication Instructions Dosage Frequency Start Date End Date Duration S tatus Ipratropium-Albuterol 0.5-2.5 (3) MG/3ML Inhalation every 6 hrs 3 ml as needed 6h Active Cymbalta 60 mg Orally Once a day 1 capsule 24h Apr, 90 days Active Bystolic 10 mg Orally 2 times a day 1 tablet 12h 90 days Active Leflunomide 20 MG Orally Once a day 1 tablet 24h Active Cyclobenzaprine HCl 10 MG TAKE ONE TABLE T BY MOUTH THREE TIMES DAILY NEEDED 90 Active Azithromycin 250 MG Orally Once a day 2 tablets on the rst day, then 1 tablet daily for 4 days 24h 5 day(s) Active Gabapentin 400 mg Orally Three times a day 2 capsules 8h Dec, Active Benzonatate 200 mg Orally Three times a day 1 capsule as needed 8h January, Feb, 30 day(s) Active OxyContin 15 mg Orally every 12 hrs 1 tablet 12h Dec, 28 days Active Ibuprofen 200 MG Orally every 4-6 hours as needed 2 tablets Active Symbicort 160-4.5 MCG/ACT Inhalation Twice a day 2 puffs 12h Active Guaifenesin 400 mg Orally every 4 hrs 1 tablet as needed 4h 1 4 Jan, 2018 Feb, 30 days Active Simvastatin 40 mg Orally Once a day 1 tablet in the evening 24h Mar, 90 days Active Tylenol Arthritis Pain by oral route 2 times a day 2tablets 12h Active ProAir HFA 108 (90 Base) MCG/ACT Inhalation every 4 hrs 2 puffs as needed 4h Mar, Active Omeprazole 40 mg Orally Once a day 1 capsule 24h Jul, 90 days Active PredniSONE 20 mg Orally Once a day 3 tabs daily x 5 day s, then 2 tabs daily x 5 days, then 1 tab daily 24h 15 days Activ e Dulcolax 10 MG Rectal Once a day 1 suppository as needed 24h Active RESULTS No Results PROCEDURES Procedure Date Ordered Result Body Site DEPO MEDROL 80 MG/ML January 31, 2018 THER/PROPH/DIAG INJ, SC/IM January 31, 2018 INSTRUCTIONS MEDICATIONS ADMINISTERED No Known Medications [...]
--- OUTSIDE RECORDS SUMMARY | 2020-02-27 15:49 | XMS REPORT ---
Author Author Beba CORBIN [facility] Address [address] [place] [address] Care Team Providers Care Finance Director Name Role Phone EMERALD EDWARD Unavailable PROBLEMS Type Condition ICD9-CM Code [id number] Code Onset Dates Condition S tatus SNOMED Code Problem Osteoporosis M81.0 Active 9739598 [id number] Problem Chronic pain syndrome G89.4 Active 456044186 Problem Moderate persistent asthma with acute exacerbation J45.41 Active [id number] Problem Lumbago with sciatica, right side M54.41 Active 216195410135703 Problem Chronic constipation K59.00 Active 113194210 Problem Lumbago with sciatica, left side M54.42 Active 293825755 Problem Chronic kidney disease, stage 1 N18.1 Active 670360836 Problem Severe episode of recurrent major depressive disorder, without psychotic features F33.2 Active 36381041 Problem Asthma exacerbation J45.901 Active 810180457 Problem Moderate persistent asthma without complication J4 5.40 Active 967377909 Problem Generalized anxiety disorder F41.1 A ctive 19483579 Problem Pernicious anemia D51.0 Active 84 208278 Problem Hyperlipidemia, unspecified hyperlipidemia E78.5 Active 22050262 Problem Essential hypertension I10 Active 65675536 Problem Vitamin D deficiency E55.9 Active 02609193 Problem Chronic prescription opiate use Z79.899 Active 328896496 Problem Colon wall thickening K63.9 Active 744680270 Problem Rheumatoid arthritis involvi ng multiple sites with positive rheumatoid factor M05.89 Active 761342692 Problem Bladder wall thickening N32.89 Active 005830565 Problem Atrophy of left kidney N26.1 Active 596078077 Problem Gastroesophageal reflux disease, esophagitis pre sence not specified K21.9 Active 643336516 ALLERGIES No Information ENCOUNTERS Encounter Location Date Diagnosis [facility] [address] [facility] [id number] [address] [place] [address] Mar, High ankle sprain of right l ower extremity, subsequent encounter S93.431D ; Lumbago with sciatica, left side M54.42 and Lumbago with sciatica, right side M54.41 [facility] [address] [id number] [address] [place] [phone] Mar, [facility] [address] [id number] [address] [place] [phone] Mar, Chronic pain syndrome G89.4 [facility] [address] [id number] [address] [place] [address] Mar, [facility] [address] [id number] [address] [place] [address] Mar, Asthma exacerbation J45.901 and Sprain of right ankle, unspecified ligament, subsequent encounter S93.401D [facility] [address] [id number] [address] [place] [address] Feb, Injury of right ankle, initi al encounter S99.911A [facility] [address] [id number] [address] [place] [address] Feb, Chronic pain syndrome G89.4 [facility] [address] [id number] [address] [place] [id number] Feb, Chronic pain syndrome G89.4 [facility] [address] [id number] [address] [place] [phone] Feb, Moderate persistent asthma w ith acute exacerbation J45.41 and Persistent cough for 3 weeks or longer R05 [facility] [address] [id number] [address] [place] [id number] January, [facility] [address] [id number] [address] [place] [address] January, Moderate persistent asthma w ith acute exacerbation J45.41 [facility] [address] [id number] [address] [place] [address] January, Chronic pain syndrome G89.4 [facility] [address] [facility] [id number] [address] [place] [phone] 14 Jan, 2018 Tachycardia R00.0 and Modera te persistent asthma with acute exacerbation J45.41 [facility] [address] [facility] [id number] [address] [place] [address] 11 Jan, 2018 Tachycardia R00.0 ; Moderate persistent asthma with acute exacerbation J45.41 ; Gastroesophageal reflux disease, esophagitis presence not specified K21.9 ; Hyperlipidemia, unspecified hyperlipidemia E78.5 and Chronic pain syndrome G89.4 [facility] [address] [facility] [id number] [address] [place] [phone] Dec, Medicare annual wellness vis it, initial [...] immunization Z23 and Chronic pain syndrome G89.4 [facility] [address] [facility] [id number] [address] [place] [id number] Dec, Chronic pain syndrome G89.4 [facility] [place] [address] [place] [id number] [address] [place] [phone] Dec, [facility] [address] [facility] [id number] [address] [place] [address] Nov, [facility] [place] [address] [place] [id number] [address] [place] [address] Nov, Chronic pain syndrome G89.4 [facility] [place] [address] [facility] [id number] [address] [place] [address] Oct, Chronic pain syndrome G89.4 [facility] [address] [place] [id number] [address] [place] [id number] 08 Oct, 2017 Chronic kidney disease, stag e 1 N18.1 [facility] [address] [facility] [id number] [address] [place] [address] Oct, Chronic prescription opiate use Z79.899 ; Cough R05 ; Asthma exacerbation J45.901 ; Elevated liver enzymes R74.8 ; Rheumatoid arthritis involving multiple sites with positive rheumatoid factor M05.89 and Chronic pain syndrome G89.4 [facility] [address] [facility] [id number] [address] [place] [address] Sep, Chronic pain syndrome G89.4 [facility] [address] [facility] [id number] [address] [place] [phone] Sep, [facility] [address] [facility] [id number] [address] [place] [address] Aug, Acute bronchitis, unspecifie d organism J20.9 [facility] [place] [address] [facility] [id number] [address] [place] [address] Aug, Chronic pain syndrome G89.4 [facility] [address] [facility] [id number] [address] [place] [address] Jul, Chronic pain syndrome G89.4 [facility] [place] [address] [facility] [id number] [address] [place] [address] Jun, Chronic pain syndrome G89.4 [facility] [address] [facility] [id number] [address] [place] [address] May, Rheumatoid arthritis involvi ng multiple sites with positive rheumatoid factor M05.89 [facility] [address] [facility] [id number] [address] [place] [address] May, Gastroesophageal reflux dise ase, esophagitis presence not specified K21.9 and Chronic pain syndrome G89.4 [facility] [address] [facility] [id number] [address] [place] [phone] May, [facility] [address] [facility] [id number] [address] [place] [address] May, Esophageal candidiasis B37.8 1 and Chronic kidney disease, stage 1 N18.1 [facility] [address] [facility] [id number] [address] [place] [phone] 11 May, 2017 Chronic kidney disease, stag e 1 N18.1 [facility] [address] [facility] [id number] [address] [place] [address] 05 May, 2017 Cough R05 ; Fever, unspecifi ed fever cause R50.9 ; Rheumatoid arthritis involving multiple sites with positive rheumatoid factor M05.89 and Chronic prescription opiate use Z79.899 [facility] [address] [facility] [id number] [address] [place] [address] Apr, [place] [address] [facility] [id number] [address] [place] [address] Apr, Cough R05 [facility] [address] [place] [id number] [place] [address] Apr, Asthma exacerbation J45.901 [facility] [address] [place] [id number] [address] [place] [address] Apr, [facility] [address] [place] [id number] [address] [place] [address] Apr, Generalized anxiety disorder F41.1 and Severe episode of recurrent major depressive disorder, without psychotic features F33.2 [facility] [address] [place] [id number] [address] [place] [address] Mar, [facility] [address] [place] [id number] [address] [place] [address] Feb, Chronic pain syndrome G89.4 [facility] [address] [place] [id number] [place] [address] Feb, Acute non-recurrent maxillar y sinusitis J01.00 [facility] [address] [place] [id number] [address] [place] [address] Feb, Acute non-recurrent frontal sinusitis J01.10 [facility] [address] [place] [id number] [address] [place] [address] Feb, Chronic pain syndrome G89.4 [facility] [address] [facility] [id number] [address] [place] [address] January, Acute cystitis with hematuri a N30.01 [facility] [address] [facility] [id number] [address] [place] [address] January, Acute cystitis with hematuri a N30.01 ; Dysuria R30.0 and Moderate persistent asthma with acute exacerbation J45.41 [place] [address] [facility] [id number] [address] [place] [address] January, [facility] [address] [place] [id number] [place] [address] January, Chronic pain syndrome G89.4 [facility] [address] [place] [id number] [place] [address] January, Asthma exacerbation J45.901 [facility] [address] [place] [id number] [address] [place] [address] January, Asthma exacerbation J45.901 [facility] [address] [place] [id number] [place] [address] Dec, Cough R05 ; Numbness in both hands R20.0 ; Ground glass opacity present on imaging of lung R91.8 ; Hypoxia R09.02 and Asthma exacerbation J45.901 [facility] [place] [address] [place] [id number] [address] [place] [address] Dec, Chronic pain syndrome G89.4 [facility] [address] [place] [id number] [address] [place] [address] Nov, Chronic prescription opiate use Z79.899 ; Rheumatoid arthritis involving multiple sites with positive rheumatoid factor M05.89 ; Moderate persistent asthma with acute exacerbation J45.41 ; Pneumonia of right lower lobe due to infectious organism J18.1 ; Chronic pain syndrome G89.4 ; Gastroesophageal reflux disease, esophagitis presence not specified K21.9 and Hyperlipidemia, unspecified hyperlipidemia E78.5 [facility] [address] [place] [id number] [place] [address] Nov, Rheumatoid arthritis involvi ng multiple sites with positive rheumatoid factor M05.89 [facility] [address] [facility] [id number] [address] [place] [id number] Oct, [facility] [address] [place] [id number] [address] [place] [address] Oct, Essential hypertension I10 [facility] [place] [address] [place] [id number] [place] [address] Sep, Hypoxia R09.02 and Ground gl ass opacity present on imaging of lung R91.8 [place] [address] [id number] Sep, Moderate persistent asthma w ith acute exacerbation J45.41 [facility] [address] [place] [id number] [place] [id number] Sep, [facility] [place] [address] [place] [id number] [place] [address] Sep, Chronic constipation K59.00 and Moderate persistent asthma with acute exacerbation J45.41 [facility] [place] [address] [place] [id number] [place] [address] Sep, Moderate persistent asthma w ith acute exacerbation J45.41 [place] [id number] [place] [address] Aug, [facility] [address] [facility] [id number] [address] [place] [address] Aug, [facility] [address] [facility] [id number] [address] [place] [address] Aug, [facility] [address] [place] [id number] [place] [address] Aug, Rheumatoid arthritis involvi ng multiple sites with positive rheumatoid factor M05.89 ; Essential hypertension I10 ; Hyperlipidemia, unspecified hyperlipidemia E78.5 ; Chronic constipation K59.00 and Moderate persistent asthma with acute exacerbation J45.41 [facility] [address] [facility] [id number] [address] [place] [address] Aug, Bronchitis J40 [facility] [address] [facility] [id number] [address] [place] [address] Aug, Rheumatoid arthritis involvi ng multiple sites with positive rheumatoid factor M05.89 [facility] [address] [facility] [id number] [address] [place] [address] Aug, Pharyngitis, unspecified pablito ology J02.9 and Acute nasopharyngitis J00 [facility] [address] [facility] [id number] [address] [place] [phone] Aug, [place] [address] [facility] [id number] [address] [place] [address] Jul, [facility] [address] [place] [id number] [place] [address] Jul, Rheumatoid arthritis involvi ng multiple sites with positive rheumatoid factor M05.89 ; Essential hypertension I10 ; Hyperlipidemia, unspecified hyperlipidemia E78.5 ; Rash R21 ; Mild persistent asthma with acute exacerbation J45.31 ; Hematuria R31.9 ; Osteoporosis M81.0 and Gastroesophageal reflux disease, esophagitis presence not specified K21.9 [facility] [address] [place] [id number] [place] [phone] 18 Jun, 2016 [facility] [address] [place] [id number] [address] [place] [address] Jun, Dysuria R30.0 [facility] [address] [facility] [id number] [address] [place] [address] 05 Jun, 2016 Acute non-recurrent maxillar y sinusitis J01.00 and Dysuria R30.0 [facility] [address] [facility] [id number] [address] [place] [phone] 16 May, 2016 [facility] [address] [place] [id number] [place] [address] 15 May, 2016 [facility] [address] [place] [id number] [place] [address] Apr, Chronic prescription opiate use Z79.899 and Rheumatoid arthritis involving multiple sites with positive rheumatoid factor M05.89 [facility] [address] [place] [id number] [place] [id number] Mar, [facility] [address] [place] [id number] [place] [address] Feb, Dizziness of unknown cause R 42 and Other chronic pain G89.29 [facility] [place] [address] [place] [id number] [place] [address] Feb, [place] [address] [address] Feb, Shortness of breath R06.02 [place] [address] [place] [id number] [place] [address] January, [place] [address] [address] January, Rheumatoid arthritis involvi ng multiple sites with positive rheumatoid factor M05.89 ; Chronic prescription opiate use Z79.899 ; Hyperlipidemia, unspecified hyperlipidemia E78.5 ; Cough R05 ; Exposure to pneumonia Z20.828 ; Diarrhea, unspecified type R19.7 ; Weight loss R63.4 ; Lumbago with sciatica, right side M54.41 and Lumbago with sciatica, left side M54.42 [place] [address] [place] [address] Dec, [place] [address] [place] [id number] [place] [address] Dec, Bronchitis J40 [place] [address] [place] [id number] [place] [address] Nov, [place] [address] [place] [id number] [place] [address] Nov, [place] [address] [place] [address] Nov, [facility] [address] [facility] [id number] [address] [place] [address] Nov, Bloody diarrhea R19.7 ; [place] n wall thickening K63.9 ; Shortness of breath R06.02 and Bladder wall thickening N32.89 [facility] [address] [id number] [address] [place] [id number] 15 Oct, 2015 Dental examination Z01.20 [facility] [address] [facility] [id number] [address] [place] [phone] 15 Oct, 2015 [facility] [address] [facility] [id number] [place] [phone] 15 Oct, 2015 Toothache K08.8 [facility] [address] [place] [id number] [place] [id number] 11 Oct, 2015 Dental examination Z01.20 [facility] [address] [place] [id number] [place] [id number] 02 Oct, 2015 [facility] [address] [place] [id number] [place] [phone] Sep, [facility] [address] [place] [id number] [place] [address] Sep, Burning with urination R30.0 [place] [address] [place] [id number] [place] [address] Sep, Hematuria R31.9 ; Rheumatoid arthritis involving multiple sites with positive rheumatoid factor M05.89 and Rheumatoid arthritis flare M06.9 [facility] [address] [facility] [id number] [address] [place] [address] Aug, Hyperlipidemia, unspecified hyperlipidemia E78.5 and Hematuria R31.9 [facility] [address] [facility] [id number] [address] [place] [address] Aug, Hematuria R31.9 ; Chronic ki dney disease, stage 1 N18.1 and Hyperlipidemia, unspecified hyperlipidemia E78.5 [facility] [address] [facility] [id number] [address] [place] [address] Aug, Rheumatoid arthritis involvi ng multiple sites with positive rheumatoid factor M05.89 ; Asthma exacerbation J45.901 ; Hematuria R31.9 ; Hyperlipidemia, unspecified hyperlipidemia E78.5 and Chronic kidney disease, stage 1 N18.1 [facility] [address] [facility] [id number] [address] [place] [phone] Aug, [facility] [address] [facility] [id number] [address] [place] [id number] Jul, [place] [address] [place] [id number] [place] [address] Jul, Lumbosacral radiculopathy M5 4.17 [place] [address] [place] [id number] [place] [phone] Jul, [place] [address] [place] [id number] [place] [address] Jun, Rheumatoid arthritis involvi ng multiple sites with positive rheumatoid factor M05.89 ; Hyperlipidemia, unspecified hyperlipidemia E78.5 ; Lumbosacral radiculopathy M54.17 ; Carpal tunnel syndrome, right upper limb G56.01 and Carpal tunnel syndrome, left upper limb G56.02 [place] [address] [place] [id number] [place] [address] Jun, [place] [address] [place] [id number] [place] [phone] 17 May, 2015 Lumbar radicular pain 724.4 and Dysuria 788.1 [place] [address] [place] [id number] [place] [phone] 08 May, 2015 Rheumatoid arthritis 714.0 ; Lumbar radicular pain 724.4 ; Burn 949.0 and Thoracic back pain 724.1 [place] [address] [place] [id number] [place] [address] May, [facility] [address] [id number] [address] [place] [phone] May, [facility] [address] [id number] [address] [place] [phone] Apr, [facility] [address] [id number] [address] [place] [address] Mar, Hyperlipidemia 272.4 [facility] [address] [id number] [address] [place] [phone] Mar, [facility] [address] [facility] [id number] [address] [place] [address] Mar, [facility] [address] [id number] [address] [place] [address] Mar, Diarrhea 787.91 ; Chronic ki dney disease, unspecified 585.9 ; Hyperlipidemia 272.4 and Asthma 493.90 [facility] [address] [id number] [address] [place] [phone] Mar, [facility] [address] [id number] [address] [place] [address] Mar, Gastroenteritis 558.9 [facility] [address] [facility] [id number] [address] [place] [phone] Feb, [facility] [address] [id number] [address] [place] [phone] January, [facility] [address] [id number] [address] [place] [phone] January, [facility] [address] [id number] [address] [place] [phone] Dec, [facility] [address] [id number] [address] [place] [phone] Dec, [facility] [address] [facility] [id number] [address] [place] [phone] Nov, [facility] [address] [id number] [address] [place] [address] [place] [address] 20 Nov, 2014 [facility] [address] [id number] [address] [place] [address], [place] [address] Nov, [facility] [address] [id number] [address] [place] [address], [place] [address] Nov, [facility] [address] [id number] [address] [place] [address], [place] [address] Nov, [facility] [address] [id number] [address] [place] [address], [place] [address] Nov, [facility] [address] [id number] [address] [place] [address], [place] [address] Oct, [facility] [address] [id number] [address] [place] [address], [place] [address] Oct, [facility] [address] [id number] [address] [place] [address], [place] [id number] Sep, [facility] [address] [id number] [address] [place] [address], [place] [id number] Sep, [facility] [address] [id number] [address] [place] [address], [place] [id number] Sep, [facility] [address] [id number] [address] [place] [address], [place] [id number] Sep, [facility] [address] [id number] [address] [place] [address], [place] [id number] Sep, [facility] [address] [id number] [address] [place] [address], [place] [id number] Sep, [facility] [address] [id number] [address] [place] [address], [place] [id number] Aug, [facility] [address] [id number] [address] [place] [address], [place] [id number] Aug, [facility] [address] [id number] [address] [place] [address], [place] [id number] Aug, [facility] [address] [id number] [address] [place] [address], [place] [id number] Aug, [facility] [address] [id number] [address] [place] [address], [place] [id number] Jul, [facility] [address] [id number] [address] [place] [address], [place] [id number] Jul, [facility] [address] [id number] [address] [place] [address], [place] [id number] Jul, [facility] [address] [id number] [address] [place] [address], [place] [id number] Jul, [facility] [address] [id number] [address] [place] [address], [place] [id number] Jul, [facility] [address] [id number] [address] [place] [address], [place] [id number] Jul, [facility] [address] [id number] [address] [place] [address], [place] [id number] Jul, [facility] [address] [id number] [address] [place] [address], [place] [id number] Jul, [facility] [address] [id number] [address] [place] [address], [place] [id number] Jul, [facility] [address] [id number] [address] [place] [address], [place] [id number] Jun, [facility] [address] [id number] [address] [place] [address], [place] [id number] Jun, [facility] [address] [id number] [address] [place] [address], [place] [id number] Jun, [facility] [address] [id number] [address] [place] [address], [place] [id number] May, [facility] [address] [id number] [address] [place] [address], [place] [id number] May, [facility] [address] [id number] [address] [place] [address], [place] [id number] 24 May, 2013 [facility] [address] [id number] [address] [place] [address], [place] [id number] 24 Sep, 2013 [facility] [address] [id number] [address] [place] [address], [place] [id number] 24 May, 2013 [facility] [address] [id number] [address] [place] [address], [place] [id number] 24 May, 2013 [facility] [address] [id number] [address] [place] [address], [place] [id number] 19 May, 2013 [facility] [address] [id number] [address] [place] [address], [place] [id number] 19 May, 2013 [facility] [address] [id number] [address] [place] [address], [place] [id number] 11 May, 2013 [facility] [address] [id number] [address] [place] [address], [place] [id number] 11 May, 2013 [facility] [address] [id number] [address] [place] [address], [place] [id number] 11 May, 2013 [facility] [address] [id number] [address] [place] [address], [place] [id number] 11 May, 2013 [facility] [address] [id number] [address] [place] [address], [place] [id number] 10 May, 2013 [facility] [address] [id number] [address] [place] [address], [place] [id number] 09 May, 2013 [facility] [address] [id number] [address] [place] [address], [place] [id number] 09 May, 2013 [facility] [address] [id number] [address] [place] [address], [place] [id number] 08 May, 2013 [facility] [address] [id number] [address] [place] [address], [place] [id number] Apr, [facility] [address] [id number] [address] [place] [address], [place] [id number] Apr, [facility] [address] [id number] [address] [place] [id number] Aug, [facility] [address] [facility] [id number] [address] [place] [id number] Jul, IMMUNIZATIONS No Known Immunizations SOCIAL HISTORY Never Assessed REASON FOR VISIT PA- Oxycontin PLAN OF CARE VITAL SIGNS MEDICATIONS No [...]
--- OUTSIDE RECORDS SUMMARY | 2020-02-27 15:49 | XMS REPORT ---
Author Author Beba CORBIN [facility] Address [address] [place] [address] Care Team Providers Care Risk Officer Name Role Phone EMERALDSTUARTEDWARD Unavailable PROBLEMS Type Condition ICD9-CM Code GYB29-GZ Code Onset Dates Condition S tatus SNOMED Code Problem Osteoporosis M81.0 Active 0062392 6 Problem Chronic pain syndrome G89.4 Active 219668255 Problem Moderate persistent asthma with acute exacerbation J45.41 Active 901733126048353 Problem Lumbago with sciatica, right side M54.41 Active 256989413297304 Problem Chronic constipation K59.00 Active 079864793 Problem Lumbago with sciatica, left side M54.42 Active 103406788 Problem Chronic kidney disease, stage 1 N18.1 Active 256620478 Problem Severe episode of recurrent major depressive disorder, without psychotic features F33.2 Active 55183378 Problem Asthma exacerbation J45.901 Active 134813152 Problem Moderate persistent asthma without complication J4 5.40 Active 874727611 Problem Generalized anxiety disorder F41.1 A ctive 50817054 Problem Pernicious anemia D51.0 Active 84 717687 Problem Hyperlipidemia, unspecified hyperlipidemia E78.5 Active 40149837 Problem Essential hypertension I10 Active 53890960 Problem Vitamin D deficiency E55.9 Active 03009689 Problem Chronic prescription opiate use Z79.899 Active 961282732 Problem Colon wall thickening K63.9 Active 473569613 Problem Rheumatoid arthritis involvi ng multiple sites with positive rheumatoid factor M05.89 Active 079833621 Problem Bladder wall thickening N32.89 Active 912316378 Problem Atrophy of left kidney N26.1 Active 993142764 Problem Gastroesophageal reflux disease, esophagitis pre sence not specified K21.9 Active 285548791 ALLERGIES Substance Reaction Event Type Date Status Penicillin V Potassium Cannot tolerate Oral PCN. St ates she can tolerate injections Drug Allergy January, Active Orencia Unknown Drug Allergy January, Active Cipro Unknown Drug Allergy January, Active Codeine Unknown Drug Allergy January, Active Ivp Dye anaphylaxis Non Drug Allergy January, Active ENCOUNTERS Encounter Location Date Diagnosis [facility] [address] [place] [phone] Mar, High ankle sprain of right l ower extremity, subsequent encounter S93.431D ; Lumbago with sciatica, left side M54.42 and Lumbago with sciatica, right side M54.41 [facility] [address] [facility] [id number] [address] [place] [phone] Mar, [place] [address] [place] [id number] [address] [place] [phone] Mar, Chronic pain syndrome G89.4 [facility] [address] [place] [address] Mar, [place] [address] [place] [address] Mar, Asthma exacerbation J45.901 and Sprain of right ankle, unspecified ligament, subsequent encounter S93.401D [facility] [address] [place] [id number] [address] [place] [phone] Feb, Injury of right ankle, initi al encounter S99.911A [facility] [address] [place] [id number] [place] [phone] Feb, Chronic pain syndrome G89.4 [facility] [address] [place] [id number] [address] [place] [address] Feb, Chronic pain syndrome G89.4 [place] [address] [place] [id number] [place] [phone] Feb, Moderate persistent asthma w ith acute exacerbation J45.41 and Persistent cough for 3 weeks or longer R05 [facility] [address] [place] [id number] [place] [phone] January, [facility] [address] [place] [id number] [address] [place] [phone] 24 Jan, 2018 Moderate persistent asthma w ith acute exacerbation J45.41 [place] [address] [place] [id number] [place] [phone] January, Chronic pain syndrome G89.4 [place] [address] [place] [id number] [place] [phone] 14 Jan, 2018 Tachycardia R00.0 and Modera te persistent asthma with acute exacerbation J45.41 [place] [address] [facility] [id number] [address] [place] [phone] 11 Jan, 2018 Tachycardia R00.0 ; Moderate persistent asthma with acute exacerbation J45.41 ; Gastroesophageal reflux disease, esophagitis presence not specified K21.9 ; Hyperlipidemia, unspecified hyperlipidemia E78.5 and Chronic pain syndrome G89.4 [place] [address] [place] [id number] [address] [place] [phone] Dec, Medicare annual wellness vis it, initial [...] immunization Z23 and Chronic pain syndrome G89.4 [place] [address] [facility] [id number] [address] [place] [phone] Dec, Chronic pain syndrome G89.4 [place] [address] [place] [id number] [address] [place] [phone] Dec, [place] [address] [place] [id number] [address] [place] [phone] Nov, [place] [address] [place] [id number] [place] [address] Nov, Chronic pain syndrome G89.4 [place] [address] [place] [address] Oct, Chronic pain syndrome G89.4 [place] [address] [place] [id number] [address] [place] [address] 08 Oct, 2017 Chronic kidney disease, stag e 1 N18.1 [place] [address] [address] Oct, Chronic prescription opiate use Z79.899 ; Cough R05 ; Asthma exacerbation J45.901 ; Elevated liver enzymes R74.8 ; Rheumatoid arthritis involving multiple sites with positive rheumatoid factor M05.89 and Chronic pain syndrome G89.4 [place] [address] [place] [id number] [address] [place] [phone] Sep, Chronic pain syndrome G89.4 [place] [address] [place] [id number] [address] [place] [phone] Sep, [place] [address] [place] [id number] [address] [place] [phone] Aug, Acute bronchitis, unspecifie d organism J20.9 [place] [address] [address] Aug, Chronic pain syndrome G89.4 [place] [address] [place] [id number] [address] [place] [phone] Jul, Chronic pain syndrome G89.4 [place] [address] [place] [id number] [address] [place] [phone] Jun, Chronic pain syndrome G89.4 [place] [address] [place] [id number] [address] [place] [address] May, Rheumatoid arthritis involvi ng multiple sites with positive rheumatoid factor M05.89 [place] [address] [place] [id number] [address] [place] [phone] May, Gastroesophageal reflux dise ase, esophagitis presence not specified K21.9 and Chronic pain syndrome G89.4 [place] [address] [facility] [id number] [address] [place] [phone] May, [facility] [address] [facility] [id number] [address] [place] [phone] May, Chronic kidney disease, stag e 1 N18.1 and Esophageal candidiasis B37.81 [facility] [address] [facility] [id number] [address] [place] [phone] May, Chronic kidney disease, stag e 1 N18.1 [facility] [address] [facility] [id number] [address] [place] [phone] May, Cough R05 ; Fever, unspecifi ed fever cause R50.9 ; Rheumatoid arthritis involving multiple sites with positive rheumatoid factor M05.89 and Chronic prescription opiate use Z79.899 [facility] [address] [place] [id number] [address] [place] [phone] Apr, [place] [address] [place] [id number] [address] [place] [phone] Apr, Cough R05 [facility] [address] [facility] [id number] [address] [place] [address] Apr, Asthma exacerbation J45.901 [place] [address] [place] [id number] [address] [place] [phone] Apr, [facility] [address] [place] [id number] [address] [place] [phone] Apr, Generalized anxiety disorder F41.1 and Severe episode of recurrent major depressive disorder, without psychotic features F33.2 [facility] [address] [facility] [id number] [address] [place] [phone] Mar, [place] [address] [place] [id number] [address] [place] [phone] Feb, Chronic pain syndrome G89.4 [facility] [address] [place] [id number] [address] [place] [phone] Feb, Acute non-recurrent maxillar y sinusitis J01.00 [facility] [address] [id number] [address] [place] [phone] Feb, Acute non-recurrent frontal sinusitis J01.10 [facility] [address] [id number] [address] [place] [id number] Feb, Chronic pain syndrome G89.4 [facility] [address] [id number] [address] [place] [phone] January, Acute cystitis with hematuri a N30.01 [facility] [address] [id number] [address] [place] [address] January, Acute cystitis with hematuri a N30.01 ; Dysuria R30.0 and Moderate persistent asthma with acute exacerbation J45.41 [place] [address] [facility] [id number] [address] [place] [phone] January, [place] [address] [facility] [id number] [address] [place] [address] January, Chronic pain syndrome G89.4 [facility] [address] [facility] [id number] [address] [place] [address] January, Asthma exacerbation J45.901 [place] [address] [facility] [id number] [address] [place] [address] January, Asthma exacerbation J45.901 [place] [address] [facility] [id number] [address] [place] [address] Dec, Cough R05 ; Numbness in both hands R20.0 ; Ground glass opacity present on imaging of lung R91.8 ; Hypoxia R09.02 and Asthma exacerbation J45.901 [place] [address] [facility] [id number] [address] [place] [address] Dec, Chronic pain syndrome G89.4 [place] [address] [facility] [id number] [address] [place] [address] Nov, Chronic prescription opiate use Z79.899 ; Rheumatoid arthritis involving multiple sites with positive rheumatoid factor M05.89 ; Moderate persistent asthma with acute exacerbation J45.41 ; Pneumonia of right lower lobe due to infectious organism J18.1 ; Chronic pain syndrome G89.4 ; Gastroesophageal reflux disease, esophagitis presence not specified K21.9 and Hyperlipidemia, unspecified hyperlipidemia E78.5 [facility] [address] [address] Nov, Rheumatoid arthritis involvi ng multiple sites with positive rheumatoid factor M05.89 [place] [address] [phone] Oct, [place] [address] [address] Oct, Essential hypertension I10 [address] [address] Sep, Hypoxia R09.[address] ass opacity present on imaging of lung R91.[address] [address] Sep, Moderate persistent asthma w ith acute exacerbation J45.41 [facility] [address] [id number] Sep, [place] [address] [address] Sep, Chronic constipation K59.00 and Moderate persistent asthma with acute exacerbation J45.41 [place] [address] [address] Sep, Moderate persistent asthma w ith acute exacerbation J45.41 [place] [address] [address] Aug, [place] [address] [address] Aug, [place] [address] [address] Aug, [place] [address] [facility] [id number] [address] [place] [phone] Aug, Rheumatoid arthritis involvi ng multiple sites with positive rheumatoid factor M05.89 ; Essential hypertension I10 ; Hyperlipidemia, unspecified hyperlipidemia E78.5 ; Chronic constipation K59.00 and Moderate persistent asthma with acute exacerbation J45.41 [place] [address] [place] [id number] [address] [place] [phone] Aug, Bronchitis J40 [facility] [address] [place] [id number] [address] [place] [address] Aug, Rheumatoid arthritis involvi ng multiple sites with positive rheumatoid factor M05.89 [place] [address] [place] [id number] [place] [phone] Aug, Pharyngitis, unspecified pablito ology J02.9 and Acute nasopharyngitis J00 [place] [address] [place] [id number] [address] [place] [phone] Aug, [facility] [address] [place] [id number] [address] [place] [phone] Jul, [place] [address] [place] [id number] [place] [phone] Jul, Rheumatoid arthritis involvi ng multiple sites with positive rheumatoid factor M05.89 ; Essential hypertension I10 ; Hyperlipidemia, unspecified hyperlipidemia E78.5 ; Rash R21 ; Mild persistent asthma with acute exacerbation J45.31 ; Hematuria R31.9 ; Osteoporosis M81.0 and Gastroesophageal reflux disease, esophagitis presence not specified K21.9 [facility] [address] [facility] [id number] [address] [place] [phone] Jun, [place] [address] [address] Jun, Dysuria R30.0 [facility] [address] [place] [id number] [address] [place] [phone] Jun, Acute non-recurrent maxillar y sinusitis J01.00 and Dysuria R30.0 [facility] [address] [facility] [id number] [address] [place] [phone] 16 May, 2016 [facility] [address] [address] May, [facility] [address] [place] [id number] [place] [address] Apr, Chronic prescription opiate use Z79.899 and Rheumatoid arthritis involving multiple sites with positive rheumatoid factor M05.89 [facility] [address] [place] [id number] [place] [phone] Mar, [facility] [address] [address] Feb, Dizziness of unknown cause R 42 and Other chronic pain G89.29 [place] [address] [address] Feb, [facility] [address] [address] Feb, Shortness of breath R06.02 [facility] [address] [id number] January, [facility] [address] [place] [id number] [place] [address] January, Rheumatoid arthritis involvi ng multiple sites with positive rheumatoid factor M05.89 ; Chronic prescription opiate use Z79.899 ; Hyperlipidemia, unspecified hyperlipidemia E78.5 ; Cough R05 ; Exposure to pneumonia Z20.828 ; Diarrhea, unspecified type R19.7 ; Weight loss R63.4 ; Lumbago with sciatica, right side M54.41 and Lumbago with sciatica, left side M54.42 [facility] [address] [place] [id number] [address] [place] [phone] Dec, [facility] [address] [place] [id number] [address] [place] [address] Dec, Bronchitis J40 [facility] [address] [facility] [id number] [address] [place] [phone] Nov, [facility] [address] [id number] [address] [place] [phone] Nov, [facility] [address] [id number] [address] [place] [phone] Nov, [facility] [address] [facility] [id number] [address] [place] [address] Nov, Bloody diarrhea R19.7 ; [address] n wall thickening K63.9 ; Shortness of breath R06.02 and Bladder wall thickening N32.89 [facility] [address] [id number] [place] [id number] 15 Oct, 2015 Dental examination Z01.20 [facility] [address] [facility] [id number] [address] [place] [phone] 15 Oct, 2015 [facility] [address] [facility] [id number] [address] [place] [phone] 15 Oct, 2015 Toothache K08.8 [facility] [address] [id number] [address] [place] [id number] Oct, Dental examination Z01.20 [facility] [address] [facility] [id number] [address] [place] [phone] 02 Oct, 2015 [facility] [address] [facility] [id number] [address] [place] [phone] Sep, [facility] [address] [facility] [id number] [address] [place] [address] 13 Sep, 2015 Burning with urination R30.0 [facility] [address] [facility] [id number] [address] [place] [phone] Sep, Hematuria R31.9 ; Rheumatoid arthritis involving multiple sites with positive rheumatoid factor M05.89 and Rheumatoid arthritis flare M06.9 [facility] [address] [facility] [id number] [address] [place] [address] Aug, Hyperlipidemia, unspecified hyperlipidemia E78.5 and Hematuria R31.9 [facility] [address] [id number] [address] [place] [phone] Aug, Hematuria R31.9 ; Chronic ki dney disease, stage 1 N18.1 and Hyperlipidemia, unspecified hyperlipidemia E78.5 [facility] [address] [id number] [address] [place] [address] Aug, Rheumatoid arthritis involvi ng multiple sites with positive rheumatoid factor M05.89 ; Asthma exacerbation J45.901 ; Hematuria R31.9 ; Hyperlipidemia, unspecified hyperlipidemia E78.5 and Chronic kidney disease, stage 1 N18.1 [place] [address] [id number] [address] [place] [address] Aug, [place] [address] [id number] [address] [place] [phone] Jul, [facility] [address] [id number] [address] [place] [phone] Jul, Lumbosacral radiculopathy M5 4.17 [place] [address] [id number] [address] [place] [address] Jul, [place] [address] [facility] [id number] [address] [place] [address] Jun, Rheumatoid arthritis involvi ng multiple sites with positive rheumatoid factor M05.89 ; Hyperlipidemia, unspecified hyperlipidemia E78.5 ; Lumbosacral radiculopathy M54.17 ; Carpal tunnel syndrome, right upper limb G56.01 and Carpal tunnel syndrome, left upper limb G56.02 [facility] [address] [id number] [address] [place] [phone] Jun, [place] [address] [facility] [id number] [address] [place] [phone] 17 May, 2015 Lumbar radicular pain 724.4 and Dysuria 788.1 [facility] [address] [facility] [id number] [address] [place] [phone] May, Rheumatoid arthritis 714.0 ; Lumbar radicular pain 724.4 ; Burn 949.0 and Thoracic back pain 724.1 [facility] [address] [facility] [id number] [address] [place] [phone] May, [facility] [address] [place] [id number] [address] [place] [phone] May, [facility] [address] [place] [id number] [address] [place] [phone] Apr, [facility] [address] [place] [id number] [address] [place] [address] Mar, Hyperlipidemia 272.4 [facility] [address] [place] [id number] [address] [place] [phone] Mar, [facility] [address] [place] [id number] [address] [place] [phone] Mar, [facility] [address] [place] [id number] [address] [place] [address] Mar, Diarrhea 787.91 ; Chronic ki dney disease, unspecified 585.9 ; Hyperlipidemia 272.4 and Asthma 493.90 [facility] [address] [place] [id number] [address] [place] [phone] Mar, [facility] [address] [place] [id number] [address] [place] [phone] Mar, Gastroenteritis 558.9 [facility] [address] [place] [id number] [address] [place] [phone] Feb, [facility] [address] [place] [id number] [address] [place] [phone] January, [facility] [address] [place] [id number] [address] [place] [phone] January, [facility] [address] [place] [id number] [address] [place] [phone] Dec, [facility] [address] [id number] [address] [place] [address], [place] [address] 13 Dec, 2014 [facility] [address] [id number] [address] [place] [address], [place] [address] Nov, [facility] [address] [id number] [address] [place] [address], [place] [address] 20 Nov, 2014 [facility] [address] [id number] [address] [place] [address], [place] [address] Nov, [facility] [address] [id number] [address] [place] [address], [place] [address] Nov, [facility] [address] [id number] [address] [place] [address], [place] [address] Nov, [facility] [address] [id number] [address] [place] [address], [place] [address] Nov, [facility] [address] [id number] [address] [place] [address], [place] [address] Oct, [facility] [address] [id number] [address] [place] [address], [place] [address] Oct, [facility] [address] [id number] [address] [place] [address], [place] [address] Sep, [facility] [address] [id number] [address] [place] [address], [place] [address] Sep, [facility] [address] [id number] [address] [place] [address], [place] [address] Sep, [facility] [address] [id number] [address] [place] [address], [place] [address] Sep, [facility] [address] [id number] [address] [place] [address], [place] [address] Sep, [facility] [address] [id number] [address] [place] [address], [place] [address] Sep, [facility] [address] [id number] [address] [place] [address], [place] [address] Aug, [facility] [address] [id number] [address] [place] [address], [place] [address] Aug, [facility] [address] [id number] [address] [place] [address], [place] [address] Aug, [facility] [address] [id number] [address] [place] [address], [place] [address] Aug, [facility] [address] [id number] [address] [place] [address], [place] [address] Jul, [facility] [address] [id number] [address] [place] [address], [place] [address] Jul, [facility] [address] [id number] [address] [place] [address], [place] [address] Jul, [facility] [address] [id number] [address] [place] [address], [place] [address] Jul, [facility] [address] [id number] [address] [place] [address], [place] [address] Jul, [facility] [address] [id number] [address] [place] [address], [place] [address] Jul, [facility] [address] [id number] [address] [place] [address], [place] [address] Jul, [facility] [address] [id number] [address] [place] [address], [place] [address] Jul, [facility] [address] [id number] [address] [place] [address] Jul, [facility] [address] [id number] [address] [place] [address], [place] [address] Jun, [facility] [address] [id number] [address] [place] [address], [place] [address] Jun, [facility] [address] [id number] [address] [place] [address], [place] [address] Jun, [facility] [address] [id number] [address] [place] [address], [place] [address] 25 Sep, 2013 [facility] [address] [id number] [facility] [address] 25 Sep, 2013 [facility] [address] [id number] [address] [place] [address], [place] [address] 24 Sep, 2013 [facility] [address] [id number] [address] [place] [address], [place] [address] 24 Sep, 2013 [facility] [address] [id number] [address] [place] [address], [place] [address] 24 Sep, 2013 [facility] [address] [id number] [address] [place] [address], [place] [address] 24 Sep, 2013 [facility] [address] [id number] [address] [place] [address], [place] [address] 19 Sep, 2013 [facility] [address] [id number] [address] [place] [address], [place] [address] 19 Sep, 2013 [facility] [address] [id number] [address] [place] [address], [place] [address] 11 Sep, 2013 [facility] [address] [id number] [address] [place] [address], [place] [address] 11 Sep, 2013 [facility] [address] [id number] [address] [place] [address], [place] [address] 11 Sep, 2013 [facility] [address] [id number] [address] [place] [address], [place] [address] 11 Sep, 2013 [facility] [address] [id number] [address] [place] [address], [place] [address] 10 Sep, 2013 [facility] [address] [id number] [address] [place] [address], [place] [address] 09 Sep, 2013 [facility] [address] [id number] [address] [place] [address], [place] [address] 09 Sep, 2013 [facility] [address] [id number] [address] [place] [address], [place] [address] 08 Sep, 2013 [facility] [address] [facility] [id number] [address] [place] [address] Apr, [facility] [address] [facility] [id number] [address] [place] [address] Apr, [facility] [address] [facility] [id number] [address] [place] [address] Aug, [facility] [address] [facility] [id number] [address] [place] [address] Jul, IMMUNIZATIONS No Known Immunizations SOCIAL HISTORY Never Assessed REASON FOR VISIT Cough/Headache/Fever-tmcdonald, Pt having heart palpitations, sd her heart beat doesn't feel right PLAN OF CARE Activity Details Follow Up 2 - 3 Days Reason: VITAL SIGNS Height 66 in 2018-01-28 Weight 143.4 lbs 2018-01-28 Temperature 98.0 degrees Fahrenheit 2018-01-28 Heart Rate 72 bpm 2018-01-28 Respiratory Rate 18 2018-01-28 Oximetry 94 % 2018-01-28 BMI 23.14 kg/m2 2018-01-28 Blood pressure systolic 124 mmHg 2018-01-28 Blood pressure diastolic 84 mmHg 2018-01-28 MEDICATIONS Medication Instructions Dosage Frequency Start Date End Date Duration S tatus Tylenol Arthritis Pain by oral route 2 times a day 2tablets 12h Active Cymbalta 60 mg Orally Once a day 1 capsule 24h Apr, 90 days Active Ipratropium-Albuterol 0.5-2.5 (3) MG/3ML Inhalation every 6 hrs 3 ml as needed 6h Active Azithromycin 250 MG Orally Once a day 2 tablets on the rst day, then 1 tablet daily for 4 days 24h January, January, 5 day(s) Active ProAir HFA 108 (90 Base) MCG/ACT Inhalation every 4 hrs 2 puffs as needed 4h Mar, Active Cyclobenzaprine HCl 10 MG TAKE ONE TABLE T BY MOUTH THREE TIMES DAILY NEEDED 90 Active Gabapentin 400 mg Orally Three times a day 2 capsules 8h Dec, Active Symbicort 160-4.5 MCG/ACT Inhalation Twice a day 2 puffs 12h Active Simvastatin 40 mg Orally Once a day 1 tablet in the evening 24h Mar, 90 days Active Omeprazole 40 mg Orally Once a day 1 capsule 24h Jul, 90 days Active Ibuprofen 200 MG Orally every 4-6 hours as needed 2 tablets Active Leflunomide 20 MG Orally Once a day 1 tablet 24h Active PredniSONE 20 mg Orally Once a day 3 tabs daily x 5 day s, then 2 tabs daily x 5 days, then 1 tab daily 24h January, January, 15 days Activ e OxyContin 15 mg Orally every 12 hrs 1 tablet 12h Dec, 28 days Active Bystolic 10 mg Orally 2 times a day 1 tablet 12h 90 days Active Dulcolax 10 MG Rectal Once a day 1 suppository as needed 24h Active RESULTS Name Result Date Reference Range [facility] 2018-01-28 Request Problem NTI Urine Tube (Tejeda) Riley Hernandez [facility]14 Default Request Problem Request Problem Sodium, Serum Potassium, Serum Chloride, Serum Carbon Dioxide, Total BUN Creatinine, Serum eGFR If NonAfricn Am eGFR If Africn Am BUN/Creatinine Ratio Glucose, Serum Calcium, Serum Bilirubin, Total AST (SGOT) ALT (SGPT) Alkaline Phosphatase, S Protein, Total, Serum Albumin, Serum Globulin, Total A/G Ratio Specimen Identification Status Please note GLUCOSE UREA NITROGEN (BUN) CREATININE eGFR NON-AFR. CITIZEN OF [place] eGFR BUN/CREATININE RATIO SODIUM POTASSIUM CHLORIDE CARBON DIOXIDE CALCIUM PROTEIN, TOTAL ALBUMIN GLOBULIN ALBUMIN/GLOBULIN RATIO BILIRUBIN, TOTAL ALKALINE PHOSPHATASE AST ALT CBC 2018-01-28 ABSOLUTE LYMPHOCYTES Please note ABSOLUTE PLASMA CELLS WBC ABSOLUTE PROLYMPHOCYTES RBC ABSOLUTE REACTIVE LYMPHOCYTES Hemoglobin CBC MORPHOLOGY Hematocrit CONTAINER TYPE: MCV FINAL RESOLUTION MCH MCHC MESSAGE: NOTE RDW PLASMA CELLS Platelets NRBC PLATELET ESTIMATION Neutrophils PROLYMPHOCYTES Lymphs QUESTION/PROBLEM Monocytes WHITE BLOOD CELL COUNT Eos RED BLOOD CELL COUNT Basos HEMOGLOBIN HEMATOCRIT Immature Granulocytes MCV Neutrophils (Absolute) Lymphs (Absolute) MCH MCHC Monocytes(Absolute) Eos (Absolute) RDW Baso (Absolute) PLATELET COUNT Immature Grans (Abs) NEUTROPHILS BAND NEUTROPHILS Immature Cells Bands ABSOLUTE BAND NEUTROPHILS Blasts/blast like cells METAMYELOCYTES Megakaryocytes ABSOLUTE METAMYELOCYTES Metamyelocytes MYELOCYTES Myelocytes ABSOLUTE MYELOCYTES Other, Lineage Uncertain PROMYELOCYTES Promyelocytes ABSOLUTE PROMYELOCYTES ABSOLUTE NEUTROPHILS Hematology Comments: LYMPHOCYTES Request Problem REACTIVE LYMPHOCYTES Request Problem ABSOLUTE LYMPHOCYTES MONOCYTES ABSOLUTE MONOCYTES EOSINOPHILS ABSOLUTE EOSINOPHILS BASOPHILS ABSOLUTE BASOPHILS BLASTS ABSOLUTE BLASTS NUCLEATED RBC ABSOLUTE NUCLEATED RBC COMMENT(S) MPV TSH 2018-01-28 Riley Hernandez [facility]14 Default TSH 0.88 Ambiguous Test Order NTI Urine Tube (Tejeda) Request Problem Specimen Identification Status Specimen Identification Status Please note Request Problem Request Problem TSH Lactate (OUTSIDE ORDER) 2018-01-28 PROCEDURES Procedure Date Ordered Result Body Site EKG, TRACING (IN-HOUSE) 2018-01-28 N/A ELECTROCARDIOGRAM, TRACING January 28, 2018 INSTRUCTIONS MEDICATIONS ADMINISTERED No Known Medications [...]
--- OUTSIDE RECORDS SUMMARY | 2020-02-27 15:49 | XMS REPORT ---
Author Author Beba CORBIN [facility] Address [address] [place] [address] Care Team Providers Care Associate Data Scientist Name Role Phone EMERALDSTUARTEDWARD Unavailable PROBLEMS Type Condition ICD9-CM Code URM62-AL Code Onset Dates Condition S tatus SNOMED Code Problem Osteoporosis M81.0 Active 6050767 6 Problem Chronic pain syndrome G89.4 Active 969353328 Problem Moderate persistent asthma with acute exacerbation J45.41 Active 053312838222304 Problem Lumbago with sciatica, right side M54.41 Active 377718204549742 Problem Chronic constipation K59.00 Active 093216007 Problem Lumbago with sciatica, left side M54.42 Active 026007300 Problem Chronic kidney disease, stage 1 N18.1 Active 278517227 Problem Severe episode of recurrent major depressive disorder, without psychotic features F33.2 Active 61925259 Problem Asthma exacerbation J45.901 Active 112670728 Problem Moderate persistent asthma without complication J4 5.40 Active 321940342 Problem Generalized anxiety disorder F41.1 A ctive 33749052 Problem Pernicious anemia D51.0 Active 84 726527 Problem Hyperlipidemia, unspecified hyperlipidemia E78.5 Active 79185916 Problem Essential hypertension I10 Active 27290752 Problem Vitamin D deficiency E55.9 Active 08034023 Problem Chronic prescription opiate use Z79.899 Active 217745543 Problem Colon wall thickening K63.9 Active 216718141 Problem Rheumatoid arthritis involvi ng multiple sites with positive rheumatoid factor M05.89 Active 622527856 Problem Bladder wall thickening N32.89 Active 593230445 Problem Atrophy of left kidney N26.1 Active 376527642 Problem Gastroesophageal reflux disease, esophagitis pre sence not specified K21.9 Active 900453488 ALLERGIES Substance Reaction Event Type Date Status Penicillin V Potassium Cannot tolerate Oral PCN. St ates she can tolerate injections Drug Allergy Dec, Active Orencia Unknown Drug Allergy Dec, Active Cipro Unknown Drug Allergy Dec, Active Codeine Unknown Drug Allergy Dec, Active Ivp Dye anaphylaxis Non Drug Allergy Dec, Active ENCOUNTERS Encounter Location Date Diagnosis [facility] [id number] [place] [address] Mar, High ankle sprain of right l ower extremity, subsequent encounter S93.431D ; Lumbago with sciatica, left side M54.42 and Lumbago with sciatica, right side M54.41 [facility] [address] [facility] [id number] [address] [place] [address] Mar, [facility] [id number] [place] [address] Mar, Chronic pain syndrome G89.4 [facility] [id number] [place] [address] Mar, [place] [id number] [place] [address] Mar, Asthma exacerbation J45.901 and Sprain of right ankle, unspecified ligament, subsequent encounter S93.401D [facility] [id number] [place] [address] Feb, Injury of right ankle, initi al encounter S99.911A [facility] [id number] [place] [address] Feb, Chronic pain syndrome G89.4 [facility] [address] [id number] [address] [place] [address] Feb, Chronic pain syndrome G89.4 [place] [address] [id number] [place] [address] Feb, Moderate persistent asthma w ith acute exacerbation J45.41 and Persistent cough for 3 weeks or longer R05 [facility] [address] [id number] [place] [id number] January, [facility] [id number] [place] [address] 24 Jan, 2018 Moderate persistent asthma w ith acute exacerbation J45.41 [place] [id number] [place] [address] January, Chronic pain syndrome G89.4 [place] [id number] [place] [address] 14 Jan, 2018 Tachycardia R00.0 and Modera te persistent asthma with acute exacerbation J45.41 [place] [address] [facility] [id number] [address] [place] [address] 11 Jan, 2018 Tachycardia R00.0 ; Moderate persistent asthma with acute exacerbation J45.41 ; Gastroesophageal reflux disease, esophagitis presence not specified K21.9 ; Hyperlipidemia, unspecified hyperlipidemia E78.5 and Chronic pain syndrome G89.4 [place] [id number] [place] [address] Dec, Medicare annual wellness vis it, initial [...] immunization Z23 and Chronic pain syndrome G89.4 [place] [address] [facility] [id number] [address] [place] [address] Dec, Chronic pain syndrome G89.4 [place] [address] [id number] [place] [id number] Dec, [place] [id number] [place] [id number] Nov, [place] [address] [id number] [place] [address] Nov, Chronic pain syndrome G89.4 [place] [address] [place] [address] Oct, Chronic pain syndrome G89.4 [place] [id number] [place] [address] 08 Oct, 2017 Chronic kidney disease, stag e 1 N18.1 [place] [address] [address] Oct, Chronic prescription opiate use Z79.899 ; Cough R05 ; Asthma exacerbation J45.901 ; Elevated liver enzymes R74.8 ; Rheumatoid arthritis involving multiple sites with positive rheumatoid factor M05.89 and Chronic pain syndrome G89.4 [place] [id number] [place] [address] Sep, Chronic pain syndrome G89.4 [place] [id number] [place] [address] Sep, [place] [id number] [place] [address] Aug, Acute bronchitis, unspecifie d organism J20.9 [place] [address] [address] Aug, Chronic pain syndrome G89.4 [place] [id number] [place] [address] Jul, Chronic pain syndrome G89.4 [place] [address] [id number] [place] [id number] Jun, Chronic pain syndrome G89.4 [place] [id number] [place] [address] May, Rheumatoid arthritis involvi ng multiple sites with positive rheumatoid factor M05.89 [place] [id number] [place] [address] May, Gastroesophageal reflux dise ase, esophagitis presence not specified K21.9 and Chronic pain syndrome G89.4 [place] [address] [facility] [id number] [address] [place] [address] May, [facility] [address] [facility] [id number] [address] [place] [address] May, Chronic kidney disease, stag e 1 N18.1 and Esophageal candidiasis B37.81 [facility] [address] [facility] [id number] [address] [place] [address] May, Chronic kidney disease, stag e 1 N18.1 [facility] [address] [facility] [id number] [address] [place] [address] May, Cough R05 ; Fever, unspecifi ed fever cause R50.9 ; Rheumatoid arthritis involving multiple sites with positive rheumatoid factor M05.89 and Chronic prescription opiate use Z79.899 [facility] [id number] [place] [id number] Apr, [place] [id number] [place] [address] Apr, Cough R05 [facility] [address] [facility] [id number] [address] [place] [address] Apr, Asthma exacerbation J45.901 [place] [id number] [place] [phone] Apr, [facility] [id number] [place] [id number] Apr, Generalized anxiety disorder F41.1 and Severe episode of recurrent major depressive disorder, without psychotic features F33.2 [facility] [address] [facility] [id number] [address] [place] [address] Mar, [place] [id number] [place] [address] Feb, Chronic pain syndrome G89.4 [facility] [id number] [place] [address] Feb, Acute non-recurrent maxillar y sinusitis J01.00 [facility] [address] [id number] [address] [place] [address] Feb, Acute non-recurrent frontal sinusitis J01.10 [facility] [address] [id number] [address] [place] [address] Feb, Chronic pain syndrome G89.4 [facility] [address] [id number] [address] [place] [address] January, Acute cystitis with hematuri a N30.01 [facility] [address] [id number] [address] [place] [address] January, Acute cystitis with hematuri a N30.01 ; Dysuria R30.0 and Moderate persistent asthma with acute exacerbation J45.41 [place] [address] [facility] [id number] [address] [place] [address] January, [place] [address] [facility] [id number] [address] [place] [address] January, Chronic pain syndrome G89.4 [facility] [address] [facility] [id number] [address] [place] [address] January, Asthma exacerbation J45.901 [place] [address] [facility] [id number] [address] [place] [address] January, Asthma exacerbation J45.901 [place] [address] [facility] [id number] [address] [place] [address] Dec, Cough R05 ; Numbness in both hands R20.0 ; Ground glass opacity present on imaging of lung R91.8 ; Hypoxia R09.02 and Asthma exacerbation J45.901 [place] [address] [facility] [id number] [address] [place] [address] Dec, Chronic pain syndrome G89.4 [place] [address] [facility] [id number] [address] [place] [address] Nov, Chronic prescription opiate use Z79.899 ; Rheumatoid arthritis involving multiple sites with positive rheumatoid factor M05.89 ; Moderate persistent asthma with acute exacerbation J45.41 ; Pneumonia of right lower lobe due to infectious organism J18.1 ; Chronic pain syndrome G89.4 ; Gastroesophageal reflux disease, esophagitis presence not specified K21.9 and Hyperlipidemia, unspecified hyperlipidemia E78.5 [facility] [address] [address] Nov, Rheumatoid arthritis involvi ng multiple sites with positive rheumatoid factor M05.89 [place] [address] [address] Oct, [place] [address] [address] Oct, Essential hypertension I10 [address] [address] Sep, Hypoxia R09.02 [address] gl ass opacity present on imaging of lung R91.[address] [address] Sep, Moderate persistent asthma w ith acute exacerbation J45.41 [facility] [address] [id number] Sep, [place] [address] [address] Sep, Chronic constipation K59.00 and Moderate persistent asthma with acute exacerbation J45.41 [place] [address] [address] Sep, Moderate persistent asthma w ith acute exacerbation J45.41 [place] [address] [address] Aug, [place] [address] [address] Aug, [place] [address] [address] Aug, [place] [address] [facility] [id number] [address] [place] [address] Aug, Rheumatoid arthritis involvi ng multiple sites with positive rheumatoid factor M05.89 ; Essential hypertension I10 ; Hyperlipidemia, unspecified hyperlipidemia E78.5 ; Chronic constipation K59.00 and Moderate persistent asthma with acute exacerbation J45.41 [place] [id number] [place] [address] Aug, Bronchitis J40 [facility] [id number] [place] [address] Aug, Rheumatoid arthritis involvi ng multiple sites with positive rheumatoid factor M05.89 [place] [id number] [place] [address] Aug, Pharyngitis, unspecified pablito ology J02.9 and Acute nasopharyngitis J00 [place] [id number] [place] [address] Aug, [facility] [id number] [place] [address] Jul, [place] [id number] [place] [address] Jul, Rheumatoid arthritis involvi ng multiple sites with positive rheumatoid factor M05.89 ; Essential hypertension I10 ; Hyperlipidemia, unspecified hyperlipidemia E78.5 ; Rash R21 ; Mild persistent asthma with acute exacerbation J45.31 ; Hematuria R31.9 ; Osteoporosis M81.0 and Gastroesophageal reflux disease, esophagitis presence not specified K21.9 [facility] [address] [facility] [id number] [address] [place] [address] Jun, [place] [address] [address] Jun, Dysuria R30.0 [facility] [id number] [place] [address] Jun, Acute non-recurrent maxillar y sinusitis J01.00 and Dysuria R30.0 [facility] [address] [facility] [id number] [address] [place] [address] 16 May, 2016 [facility] [address] [address] May, [facility] [id number] [place] [address] Apr, Chronic prescription opiate use Z79.899 and Rheumatoid arthritis involving multiple sites with positive rheumatoid factor M05.89 [facility] [id number] [place] [address] Mar, [facility] [address] [address] Feb, Dizziness of unknown cause R 42 and Other chronic pain G89.29 [place] [address] [address] Feb, [facility] [address] [address] Feb, Shortness of breath R06.02 [facility] [address] [address] January, [facility] [id number] [place] [address] January, Rheumatoid arthritis involvi ng multiple sites with positive rheumatoid factor M05.89 ; Chronic prescription opiate use Z79.899 ; Hyperlipidemia, unspecified hyperlipidemia E78.5 ; Cough R05 ; Exposure to pneumonia Z20.828 ; Diarrhea, unspecified type R19.7 ; Weight loss R63.4 ; Lumbago with sciatica, right side M54.41 and Lumbago with sciatica, left side M54.42 [facility] [id number] [place] [address] Dec, [facility] [id number] [place] [address] Dec, Bronchitis J40 [facility] [address] [facility] [id number] [address] [place] [address] Nov, [facility] [address] [id number] [address] [place] [address] Nov, [facility] [address] [id number] [address] [place] [address] Nov, [facility] [address] [facility] [id number] [address] [place] [address] Nov, Bloody diarrhea R19.7 ; Ponce n wall thickening K63.9 ; Shortness of breath R06.02 and Bladder wall thickening N32.89 [facility] [id number] [place] [id number] 15 Oct, 2015 Dental examination Z01.20 [facility] [address] [facility] [id number] [address] [place] [address] 15 Oct, 2015 [facility] [address] [facility] [id number] [address] [place] [address] 15 Oct, 2015 Toothache K08.8 [facility] [address] [id number] [address] [place] [id number] Oct, Dental examination Z01.20 [facility] [address] [facility] [id number] [address] [place] [id number] 02 Oct, 2015 [facility] [address] [facility] [id number] [address] [place] [address] Sep, [facility] [address] [facility] [id number] [address] [place] [id number] 13 Sep, 2015 Burning with urination R30.0 [facility] [address] [facility] [id number] [address] [place] [address] Sep, Hematuria R31.9 ; Rheumatoid arthritis involving multiple sites with positive rheumatoid factor M05.89 and Rheumatoid arthritis flare M06.9 [facility] [address] [facility] [id number] [address] [place] [address] Aug, Hyperlipidemia, unspecified hyperlipidemia E78.5 and Hematuria R31.9 [facility] [address] [id number] [address] [place] [address] Aug, Hematuria R31.9 ; Chronic ki dney disease, stage 1 N18.1 and Hyperlipidemia, unspecified hyperlipidemia E78.5 [facility] [address] [id number] [address] [place] [address] Aug, Rheumatoid arthritis involvi ng multiple sites with positive rheumatoid factor M05.89 ; Asthma exacerbation J45.901 ; Hematuria R31.9 ; Hyperlipidemia, unspecified hyperlipidemia E78.5 and Chronic kidney disease, stage 1 N18.1 [place] [address] [id number] [address] [place] [address] Aug, [place] [address] [id number] [address] [place] [address] Jul, [facility] [address] [id number] [address] [place] [address] Jul, Lumbosacral radiculopathy M5 4.17 [place] [address] [id number] [address] [place] [address] Jul, [place] [address] [facility] [id number] [address] [place] [address] Jun, Rheumatoid arthritis involvi ng multiple sites with positive rheumatoid factor M05.89 ; Hyperlipidemia, unspecified hyperlipidemia E78.5 ; Lumbosacral radiculopathy M54.17 ; Carpal tunnel syndrome, right upper limb G56.01 and Carpal tunnel syndrome, left upper limb G56.02 [facility] [address] [id number] [address] [place] [address] Jun, [place] [address] [facility] [id number] [address] [place] [address] 17 May, 2015 Lumbar radicular pain 724.4 and Dysuria 788.1 [facility] [address] [facility] [id number] [address] [place] [phone] May, Rheumatoid arthritis 714.0 ; Lumbar radicular pain 724.4 ; Burn 949.0 and Thoracic back pain 724.1 [facility] [address] [facility] [id number] [address] [place] [address] May, [facility] [id number] [place] [id number] May, [facility] [id number] [place] [id number] Apr, [facility] [id number] [place] [address] Mar, Hyperlipidemia 272.4 [facility] [id number] [place] [address] Mar, [facility] [id number] [place] [address] Mar, [facility] [id number] [place] [address] Mar, Diarrhea 787.91 ; Chronic ki dney disease, unspecified 585.9 ; Hyperlipidemia 272.4 and Asthma 493.90 [facility] [id number] [place] [address] Mar, [facility] [id number] [place] [address] Mar, Gastroenteritis 558.9 [facility] [id number] [place] [id number] Feb, [facility] [id number] [place] [address] January, [facility] [id number] [place] [address] January, [facility] [id number] [place] [address] Dec, [facility] [address] [id number] [address] [place] [address], [place] [address] 13 Dec, 2014 [facility] [address] [id number] [address] [place] [address], [place] [address] Nov, [facility] [address] [id number] [address] [place] [address], [place] [address] 20 Nov, 2014 [facility] [address] [id number] [address] [place] [address], [place] [address] Nov, [facility] [address] [id number] [address] [place] [address], [place] [address] Nov, [facility] [address] [id number] [address] [place] [address], [place] [address] Nov, [facility] [address] [id number] [address] [place] [address], [place] [address] Nov, [facility] [address] [id number] [address] [place] [address], [place] [address] Oct, [facility] [address] [id number] [address] [place] [address], [place] [address] Oct, [facility] [address] [id number] [address] [place] [address], [place] [address] Sep, [facility] [address] [id number] [address] [place] [address], [place] [address] Sep, [facility] [address] [id number] [address] [place] [address], [place] [address] Sep, [facility] [address] [id number] [address] [place] [address], [place] [address] Sep, [facility] [address] [id number] [address] [place] [address], [place] [address] Sep, [facility] [address] [id number] [address] [place] [address], [place] [address] Sep, [facility] [address] [id number] [address] [place] [address], [place] [address] Aug, [facility] [address] [id number] [address] [place] [address], [place] [address] Aug, [facility] [address] [id number] [address] [place] [address], [place] [address] Aug, [facility] [address] [id number] [address] [place] [address], [place] [address] Aug, [facility] [address] [id number] [address] [place] [address], [place] [address] Jul, [facility] [address] [id number] [address] [place] [address], [place] [address] Jul, [facility] [address] [id number] [address] [place] [address], [place] [address] Jul, [facility] [address] [id number] [address] [place] [address], [place] [address] Jul, [facility] [address] [id number] [address] [place] [address], [place] [address] Jul, [facility] [address] [id number] [address] [place] [address], [place] [address] Jul, [facility] [address] [id number] [address] [place] [address], [place] [address] Jul, [facility] [address] [id number] [address] [place] [address], [place] [address] Jul, [facility] [address] [id number] [address] [place] [id number] Jul, [facility] [address] [id number] [address] [place] [address], [place] [address] Jun, [facility] [address] [id number] [address] [place] [address], [place] [address] Jun, [facility] [address] [id number] [address] [place] [address], [place] [address] Jun, [facility] [address] [id number] [address] [place] [address], [place] [address] 25 Sep, 2013 [facility] [address] [id number] [facility] [place] [address] 25 Sep, 2013 [facility] [address] [id number] [address] [place] [address], [place] [address] 24 Sep, 2013 [facility] [address] [id number] [address] [place] [address], [place] [address] 24 Sep, 2013 [facility] [address] [id number] [address] [place] [address], [place] [address] 24 Sep, 2013 [facility] [address] [id number] [address] [place] [address], [place] [address] 24 Sep, 2013 [facility] [address] [id number] [address] [place] [address], [place] [address] 19 Sep, 2013 [facility] [address] [id number] [address] [place] [address], [place] [address] 19 Sep, 2013 [facility] [address] [id number] [address] [place] [address], [place] [address] 11 Sep, 2013 [facility] [address] [id number] [address] [place] [address], [place] [address] 11 Sep, 2013 [facility] [address] [id number] [address] [place] [address], [place] [address] 11 Sep, 2013 [facility] [address] [id number] [address] [place] [address], [place] [address] 11 Sep, 2013 [facility] [address] [id number] [address] [place] [address], [place] [address] 10 Sep, 2013 [facility] [address] [id number] [address] [place] [address], [place] [address] 09 Sep, 2013 [facility] [address] [id number] [address] [place] [address], [place] [address] 09 Sep, 2013 [facility] [address] [id number] [address] [place] [address], [place] [address] 08 Sep, 2013 [facility] [address] [facility] [id number] [address] [place] [id number] Apr, [facility] [address] [facility] [id number] [address] [place] [id number] Apr, [facility] [address] [facility] [id number] [address] [place] [id number] Aug, [facility] [address] [facility] [id number] [address] [place] [id number] Jul, IMMUNIZATIONS Vaccine Route Administration Date Status TDAP (BOOSTRIX) IM Intramuscular January 12, 2018 Administered SOCIAL HISTORY Never Assessed REASON FOR VISIT Medicare AWV - Initial Visit -- keya stewart PLAN OF CARE Activity Details Follow Up 1 Year Reason: Pending Test DEXA VITAL SIGNS Height 66 in 2018-01-12 Weight 137.0 lbs 2018-01-12 Temperature 98.0 degrees Fahrenheit 2018-01-12 Heart Rate 82 bpm 2018-01-12 Respiratory Rate 18 2018-01-12 BMI 22.11 kg/m2 2018-01-12 Blood pressure systolic 130 mmHg 2018-01-12 Blood pressure diastolic 86 mmHg 2018-01-12 MEDICATIONS Medication Instructions Dosage Frequency Start Date End Date Duration S tatus Bystolic 10 mg Orally 2 times a day 1 tablet 12h 90 days Active Cyclobenzaprine HCl 10 MG TAKE ONE TABLE T BY MOUTH THREE TIMES DAILY NEEDED 90 Active Ipratropium-Albuterol 0.5-2.5 (3) MG/3ML Inhalation every 6 hrs 3 ml as needed 6h Active ProAir HFA 108 (90 Base) MCG/ACT Inhalation every 4 hrs 2 puffs as needed 4h Mar, Active OxyContin 15 mg Orally every 12 hrs 1 tablet 12h 24 Dec, 2017 28 days Active Docusate Sodium 100 MG Orally twice a day 1 capsule as needed 12h Not-Taking Dulcolax 10 MG Rectal Once a day 1 suppository as needed 24h Not-Taking Leflunomide 20 MG Orally Once a day 1 tablet 24h Active Cymbalta 60 mg Orally Once a day 1 capsule 24h 14 Apr, 2017 90 days Active Ibuprofen 200 MG Orally every 4-6 hours as needed 2 tablets Not-Taking Gabapentin 400 mg Orally Three times a day 2 capsules 8h Dec 30 day(s) Active Simvastatin 40 mg Orally Once a day 1 tablet in the evening 24h 15 Mar, 2015 Not-Taking tylenol Active Omeprazole 40 mg Orally Once a day 1 capsule 24h Jul, 90 days Active Symbicort 160-4.5 MCG/ACT Inhalation Twice a day 2 puffs 12h Active Tylenol Arthritis Pain by oral route 2 times a day 2tablets 12h Active Senokot S 8.6-50 MG Orally 2 times a day 2 tablets 12h Not-Taking RESULTS No Results PROCEDURES Procedure Date Ordered Result Body Site [facility] VISIT IPPE/AWV January 12, 2018 ANNUAL [facility] VST; DEJAH PPS INIT January 12, 2018 PT TOBACCO SCREEN RCVD TLK January 12, 2018 FALL RISK ASSESSMENT DOCD January 12, 2018 SINGLE IMMUNIZATION ADMIN January 12, 2018 TDAP (BOOSTRIX) January 12, 2018 INSTRUCTIONS MEDICATIONS ADMINISTERED No Known Medications MEDICAL (GENERAL) HISTORY Type Description Date Medical History hypertension Medical History osteoporosis Medical History rheumatoid arthritis Medical History Heart infection Medical History Rheumatic or Scarlet Fever Medical History Pneumonia Medical History Bronchitis Medical History Prednisone Surgical History hysterectomy 2001 Surgical History arthroscopic knee surgery-left knee Surgical History section x 2 Surgical History otolaryngologic surgery-[facility] 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
--- OUTSIDE RECORDS SUMMARY | 2020-02-27 15:49 | XMS REPORT ---
Author Author Beba CORBIN [facility] Address [address] [place] [address] Care Team Providers Care Real Estate Officer Name Role Phone EMERALD EDWARD Unavailable PROBLEMS Type Condition ICD9-CM Code [id number] Code Onset Dates Condition S tatus SNOMED Code Problem Osteoporosis M81.0 Active 7311810 6 Problem Chronic pain syndrome G89.4 Active 944419791 Problem Moderate persistent asthma with acute exacerbation J45.41 Active 208165826916683 Problem Lumbago with sciatica, right side M54.41 Active 669958403442277 Problem Chronic constipation K59.00 Active 749511652 Problem Lumbago with sciatica, left side M54.42 Active 229814162 Problem Chronic kidney disease, stage 1 N18.1 Active 514102819 Problem Severe episode of recurrent major depressive disorder, without psychotic features F33.2 Active 30852127 Problem Asthma exacerbation J45.901 Active 937977286 Problem Moderate persistent asthma without complication J4 5.40 Active 365872247 Problem Generalized anxiety disorder F41.1 A ctive 54675963 Problem Pernicious anemia D51.0 Active 84 234806 Problem Hyperlipidemia, unspecified hyperlipidemia E78.5 Active 82777671 Problem Essential hypertension I10 Active 44386946 Problem Vitamin D deficiency E55.9 Active 11756454 Problem Chronic prescription opiate use Z79.899 Active 302378465 Problem Colon wall thickening K63.9 Active 561296143 Problem Rheumatoid arthritis involvi ng multiple sites with positive rheumatoid factor M05.89 Active 226089545 Problem Bladder wall thickening N32.89 Active 160937182 Problem Atrophy of left kidney N26.1 Active 142398927 Problem Gastroesophageal reflux disease, esophagitis pre sence not specified K21.9 Active 952327237 ALLERGIES No Information ENCOUNTERS Encounter Location Date Diagnosis [facility] [address] [facility] [id number] [address] [place] [address] Mar, High ankle sprain of right l ower extremity, subsequent encounter S93.431D ; Lumbago with sciatica, left side M54.42 and Lumbago with sciatica, right side M54.41 [facility] [address] [id number] [address] [place] [id number] Mar, [facility] [address] [id number] [address] [place] [phone] Mar, Chronic pain syndrome G89.4 [facility] [address] [id number] [address] [place] [id number] Mar, [facility] [address] [id number] [address] [place] [id number] Mar, Asthma exacerbation J45.901 and Sprain of right ankle, unspecified ligament, subsequent encounter S93.401D [facility] [address] [id number] [address] [place] [phone] Feb, Injury of right ankle, initi al encounter S99.911A [facility] [address] [id number] [address] [place] [id number] Feb, Chronic pain syndrome G89.4 [facility] [address] [id number] [address] [place] [id number] Feb, Chronic pain syndrome G89.4 [facility] [address] [id number] [address] [place] [phone] Feb, Moderate persistent asthma w ith acute exacerbation J45.41 and Persistent cough for 3 weeks or longer R05 [facility] [address] [id number] [address] [place] [phone] January, [facility] [address] [id number] [address] [place] [id number] January, Moderate persistent asthma w ith acute exacerbation J45.41 [facility] [address] [id number] [address] [place] [id number] January, Chronic pain syndrome G89.4 [facility] [address] [facility] [id number] [address] [place] [id number] 14 Jan, 2018 Tachycardia R00.0 and Modera te persistent asthma with acute exacerbation J45.41 [facility] [address] [facility] [id number] [address] [place] [phone] 11 Jan, 2018 Tachycardia R00.0 ; Moderate persistent asthma with acute exacerbation J45.41 ; Gastroesophageal reflux disease, esophagitis presence not specified K21.9 ; Hyperlipidemia, unspecified hyperlipidemia E78.5 and Chronic pain syndrome G89.4 [place] [address] [facility] [id number] [address] [place] [id number] Dec, Medicare annual wellness vis it, initial [...] immunization Z23 and Chronic pain syndrome G89.4 [place] [address] [facility] [id number] [address] [place] [id number] Dec, Chronic pain syndrome G89.4 [place] [address] [place] [id number] [address] [place] [phone] Dec, [place] [address] [facility] [id number] [address] [place] [id number] Nov, [place] [address] [place] [id number] [address] [place] [phone] Nov, Chronic pain syndrome G89.4 [place] [address] [facility] [id number] [address] [place] [id number] Oct, Chronic pain syndrome G89.4 [place] [address] [place] [id number] [address] [place] [id number] 08 Oct, 2017 Chronic kidney disease, stag e 1 N18.1 [facility] [address] [facility] [id number] [address] [place] [id number] Oct, Chronic prescription opiate use Z79.899 ; Cough R05 ; Asthma exacerbation J45.901 ; Elevated liver enzymes R74.8 ; Rheumatoid arthritis involving multiple sites with positive rheumatoid factor M05.89 and Chronic pain syndrome G89.4 [facility] [address] [facility] [id number] [address] [place] [phone] Sep, Chronic pain syndrome G89.4 [facility] [address] [facility] [id number] [address] [place] [phone] Sep, [place] [address] [facility] [id number] [address] [place] [id number] Aug, Acute bronchitis, unspecifie d organism J20.9 [place] [address] [facility] [id number] [address] [place] [id number] Aug, Chronic pain syndrome G89.4 [facility] [address] [facility] [id number] [address] [place] [id number] Jul, Chronic pain syndrome G89.4 [place] [address] [facility] [id number] [address] [place] [phone] Jun, Chronic pain syndrome G89.4 [facility] [address] [facility] [id number] [address] [place] [id number] May, Rheumatoid arthritis involvi ng multiple sites with positive rheumatoid factor M05.89 [facility] [address] [facility] [id number] [address] [place] [id number] May, Gastroesophageal reflux dise ase, esophagitis presence not specified K21.9 and Chronic pain syndrome G89.4 [facility] [address] [facility] [id number] [address] [place] [phone] May, [facility] [address] [facility] [id number] [address] [place] [id number] May, Esophageal candidiasis B37.8 1 and Chronic kidney disease, stage 1 N18.1 [facility] [address] [facility] [id number] [address] [place] [id number] 11 May, 2017 Chronic kidney disease, stag e 1 N18.1 [facility] [address] [facility] [id number] [address] [place] [id number] 05 May, 2017 Cough R05 ; Fever, unspecifi ed fever cause R50.9 ; Rheumatoid arthritis involving multiple sites with positive rheumatoid factor M05.89 and Chronic prescription opiate use Z79.899 [facility] [address] [facility] [id number] [address] [place] [id number] Apr, [place] [address] [facility] [id number] [address] [place] [id number] Apr, Cough R05 [place] [address] [place] [id number] [place] [phone] Apr, Asthma exacerbation J45.901 [place] [address] [place] [id number] [address] [place] [phone] Apr, [place] [address] [place] [id number] [address] [place] [phone] Apr, Generalized anxiety disorder F41.1 and Severe episode of recurrent major depressive disorder, without psychotic features F33.2 [place] [address] [place] [id number] [address] [place] [phone] Mar, [place] [address] [place] [id number] [address] [place] [phone] Feb, Chronic pain syndrome G89.4 [place] [address] [place] [id number] [address] [place] [id number] Feb, Acute non-recurrent maxillar y sinusitis J01.00 [place] [address] [place] [id number] [address] [place] [phone] Feb, Acute non-recurrent frontal sinusitis J01.10 [place] [address] [place] [id number] [address] [place] [phone] Feb, Chronic pain syndrome G89.4 [facility] [address] [facility] [id number] [address] [place] [phone] January, Acute cystitis with hematuri a N30.01 [facility] [address] [facility] [id number] [address] [place] [id number] January, Acute cystitis with hematuri a N30.01 ; Dysuria R30.0 and Moderate persistent asthma with acute exacerbation J45.41 [place] [address] [facility] [id number] [address] [place] [id number] January, [place] [address] [place] [id number] [place] [phone] January, Chronic pain syndrome G89.4 [place] [address] [place] [id number] [place] [phone] January, Asthma exacerbation J45.901 [place] [address] [place] [id number] [address] [place] [id number] January, Asthma exacerbation J45.901 [place] [address] [place] [id number] [address] [place] [id number] Dec, Cough R05 ; Numbness in both hands R20.0 ; Ground glass opacity present on imaging of lung R91.8 ; Hypoxia R09.02 and Asthma exacerbation J45.901 [place] [address] [place] [id number] [address] [place] [id number] Dec, Chronic pain syndrome G89.4 [place] [address] [place] [id number] [address] [place] [id number] Nov, Chronic prescription opiate use Z79.899 ; Rheumatoid arthritis involving multiple sites with positive rheumatoid factor M05.89 ; Moderate persistent asthma with acute exacerbation J45.41 ; Pneumonia of right lower lobe due to infectious organism J18.1 ; Chronic pain syndrome G89.4 ; Gastroesophageal reflux disease, esophagitis presence not specified K21.9 and Hyperlipidemia, unspecified hyperlipidemia E78.5 [place] [address] [place] [id number] [address] [place] [id number] Nov, Rheumatoid arthritis involvi ng multiple sites with positive rheumatoid factor M05.89 [facility] [address] [facility] [id number] [address] [place] [phone] Oct, [facility] [address] [place] [id number] [address] [place] [id number] Oct, Essential hypertension I10 [place] [address] [place] [id number] [address] [place] [id number] Sep, Hypoxia R09.02 and Ground gl ass opacity present on imaging of lung R91.8 [place] [address] [phone] Sep, Moderate persistent asthma w ith acute exacerbation J45.41 [facility] [address] [place] [id number] [place] [id number] Sep, [place] [address] [place] [id number] [address] [place] [id number] Sep, Chronic constipation K59.00 and Moderate persistent asthma with acute exacerbation J45.41 [place] [address] [place] [id number] [address] [place] [phone] Sep, Moderate persistent asthma w ith acute exacerbation J45.41 [place] [id number] [place] [phone] Aug, [facility] [address] [facility] [id number] [address] [place] [phone] Aug, [facility] [address] [facility] [id number] [address] [place] [id number] Aug, [facility] [address] [place] [id number] [address] [place] [id number] Aug, Rheumatoid arthritis involvi ng multiple sites with positive rheumatoid factor M05.89 ; Essential hypertension I10 ; Hyperlipidemia, unspecified hyperlipidemia E78.5 ; Chronic constipation K59.00 and Moderate persistent asthma with acute exacerbation J45.41 [facility] [address] [facility] [id number] [address] [place] [id number] Aug, Bronchitis J40 [facility] [address] [facility] [id number] [address] [place] [phone] Aug, Rheumatoid arthritis involvi ng multiple sites with positive rheumatoid factor M05.89 [facility] [address] [facility] [id number] [address] [place] [id number] Aug, Pharyngitis, unspecified pablito ology J02.9 and Acute nasopharyngitis J00 [place] [address] [facility] [id number] [address] [place] [phone] Aug, [place] [address] [facility] [id number] [address] [place] [phone] Jul, [place] [address] [place] [id number] [place] [phone] Jul, Rheumatoid arthritis involvi ng multiple sites with positive rheumatoid factor M05.89 ; Essential hypertension I10 ; Hyperlipidemia, unspecified hyperlipidemia E78.5 ; Rash R21 ; Mild persistent asthma with acute exacerbation J45.31 ; Hematuria R31.9 ; Osteoporosis M81.0 and Gastroesophageal reflux disease, esophagitis presence not specified K21.9 [facility] [address] [place] [id number] [address] [place] [id number] 18 Jun, 2016 [facility] [address] [place] [id number] [address] [place] [phone] Jun, Dysuria R30.0 [facility] [address] [facility] [id number] [address] [place] [id number] 05 Jun, 2016 Acute non-recurrent maxillar y sinusitis J01.00 and Dysuria R30.0 [facility] [address] [facility] [id number] [address] [place] [id number] 16 May, 2016 [facility] [address] [place] [id number] [address] [place] [id number] 15 May, 2016 [facility] [address] [place] [id number] [address] [place] [id number] Apr, Chronic prescription opiate use Z79.899 and Rheumatoid arthritis involving multiple sites with positive rheumatoid factor M05.89 [facility] [address] [place] [id number] [address] [place] [id number] Mar, [facility] [address] [place] [id number] [address] [place] [id number] Feb, Dizziness of unknown cause R 42 and Other chronic pain G89.29 [place] [address] [place] [id number] [address] [place] [phone] Feb, [place] [address] [phone] Feb, Shortness of breath R06.02 [place] [address] [place] [id number] [place] [phone] January, [place] [address] [address] January, Rheumatoid arthritis involvi ng multiple sites with positive rheumatoid factor M05.89 ; Chronic prescription opiate use Z79.899 ; Hyperlipidemia, unspecified hyperlipidemia E78.5 ; Cough R05 ; Exposure to pneumonia Z20.828 ; Diarrhea, unspecified type R19.7 ; Weight loss R63.4 ; Lumbago with sciatica, right side M54.41 and Lumbago with sciatica, left side M54.42 [place] [address] [place] [phone] Dec, [place] [address] [place] [id number] [address] [place] [phone] Dec, Bronchitis J40 [place] [address] [place] [id number] [address] [place] [phone] Nov, [place] [address] [place] [id number] [address] [place] [phone] Nov, [place] [address] [place] [address] Nov, [facility] [address] [facility] [id number] [address] [place] [id number] Nov, Bloody diarrhea R19.7 ; [place] n wall thickening K63.9 ; Shortness of breath R06.02 and Bladder wall thickening N32.89 [facility] [address] [id number] [address] [place] [id number] 15 Oct, 2015 Dental examination Z01.20 [facility] [address] [facility] [id number] [address] [place] [id number] 15 Oct, 2015 [facility] [address] [facility] [id number] [place] [phone] 15 Oct, 2015 Toothache K08.8 [facility] [address] [place] [id number] [address] [place] [address] [id number] 11 Oct, 2015 Dental examination Z01.20 [facility] [address] [place] [id number] [address] [place] [id number] 02 Oct, 2015 [facility] [address] [place] [id number] [address] [place] [phone] Sep, [facility] [address] [place] [id number] [place] [address] Sep, Burning with urination R30.0 [place] [address] [place] [id number] [place] [address] Sep, Hematuria R31.9 ; Rheumatoid arthritis involving multiple sites with positive rheumatoid factor M05.89 and Rheumatoid arthritis flare M06.9 [facility] [address] [facility] [id number] [address] [place] [phone] Aug, Hyperlipidemia, unspecified hyperlipidemia E78.5 and Hematuria R31.9 [facility] [address] [facility] [id number] [address] [place] [id number] Aug, Hematuria R31.9 ; Chronic ki dney disease, stage 1 N18.1 and Hyperlipidemia, unspecified hyperlipidemia E78.5 [facility] [address] [facility] [id number] [address] [place] [id number] Aug, Rheumatoid arthritis involvi ng multiple sites with positive rheumatoid factor M05.89 ; Asthma exacerbation J45.901 ; Hematuria R31.9 ; Hyperlipidemia, unspecified hyperlipidemia E78.5 and Chronic kidney disease, stage 1 N18.1 [facility] [address] [facility] [id number] [address] [place] [id number] Aug, [facility] [address] [facility] [id number] [address] [place] [id number] Jul, [place] [address] [place] [id number] [place] [phone] Jul, Lumbosacral radiculopathy M5 4.17 [place] [address] [place] [id number] [address] [place] [id number] Jul, [place] [address] [place] [id number] [address] [place] [id number] Jun, Rheumatoid arthritis involvi ng multiple sites with positive rheumatoid factor M05.89 ; Hyperlipidemia, unspecified hyperlipidemia E78.5 ; Lumbosacral radiculopathy M54.17 ; Carpal tunnel syndrome, right upper limb G56.01 and Carpal tunnel syndrome, left upper limb G56.02 [place] [address] [place] [id number] [address] [place] [phone] Jun, [place] [address] [place] [id number] [address] [place] [id number] 17 May, 2015 Lumbar radicular pain 724.4 and Dysuria 788.1 [place] [address] [place] [id number] [place] [address] 08 May, 2015 Rheumatoid arthritis 714.0 ; Lumbar radicular pain 724.4 ; Burn 949.0 and Thoracic back pain 724.1 [place] [address] [place] [id number] [address] [place] [phone] May, [facility] [address] [id number] [address] [place] [phone] May, [facility] [address] [id number] [address] [place] [phone] Apr, [facility] [address] [id number] [address] [place] [phone] Mar, Hyperlipidemia 272.4 [facility] [address] [id number] [address] [place] [phone] Mar, [facility] [address] [facility] [id number] [address] [place] [phone] Mar, [facility] [address] [id number] [address] [place] [address] Mar, Diarrhea 787.91 ; Chronic ki dney disease, unspecified 585.9 ; Hyperlipidemia 272.4 and Asthma 493.90 [facility] [address] [id number] [address] [place] [phone] Mar, [facility] [address] [id number] [address] [place] [id number] Mar, Gastroenteritis 558.9 [facility] [address] [facility] [id number] [address] [place] [phone] Feb, [facility] [address] [id number] [address] [place] [phone] January, [facility] [address] [id number] [address] [place] [phone] January, [facility] [address] [id number] [address] [place] [id number] Dec, [facility] [address] [id number] [address] [place] [phone] Dec, [facility] [address] [facility] [id number] [address] [place] [phone] Nov, [facility] [address] [id number] [address] [place] [address] [place] [address] 20 Nov, 2014 [facility] [address] [id number] [address] [place] [address], [place] [address] Nov, [facility] [address] [id number] [address] [place] [address], [place] [address] Nov, [facility] [address] [id number] [address] [place] [address], [place] [address] Nov, [facility] [address] [id number] [address] [place] [address], [place] [address] Nov, [facility] [address] [id number] [address] [place] [address], [place] [address] Oct, [facility] [address] [id number] [address] [place] [address], [place] [address] Oct, [facility] [address] [id number] [address] [place] [address], [place] [address] Sep, [facility] [address] [id number] [address] [place] [address], [place] [address] Sep, [facility] [address] [id number] [address] [place] [address], [place] [address] Sep, [facility] [address] [id number] [address] [place] [address], [place] [address] Sep, [facility] [address] [id number] [address] [place] [address], [place] [address] Sep, [facility] [address] [id number] [address] [place] [address], [place] [address] Sep, [facility] [address] [id number] [address] [place] [address], [place] [address] Aug, [facility] [address] [id number] [address] [place] [address], [place] [address] Aug, [facility] [address] [id number] [address] [place] [address], [place] [address] Aug, [facility] [address] [id number] [address] [place] [address], [place] [address] Aug, [facility] [address] [id number] [address] [place] [address], [place] [address] Jul, [facility] [address] [id number] [address] [place] [address], [place] [address] Jul, [facility] [address] [id number] [address] [place] [address], [place] [address] Jul, [facility] [address] [id number] [address] [place] [address], [place] [address] Jul, [facility] [address] [id number] [address] [place] [address], [place] [address] Jul, [facility] [address] [id number] [address] [place] [address], [place] [address] Jul, [facility] [address] [id number] [address] [place] [address], [place] [address] Jul, [facility] [address] [id number] [address] [place] [address], [place] [address] Jul, [facility] [address] [id number] [address] [place] [address], [place] [address] Jul, [facility] [address] [id number] [address] [place] [address], [place] [address] Jun, [facility] [address] [id number] [address] [place] [address], [place] [address] Jun, [facility] [address] [id number] [address] [place] [address], [place] [address] Jun, [facility] [address] [id number] [address] [place] [address], [place] [address] May, [facility] [address] [id number] [address] [place] [address], [place] [address] May, [facility] [address] [id number] [address] [place] [address], [place] [address] 24 May, 2013 [facility] [address] [id number] [address] [place] [address], [place] [address] 24 Sep, 2013 [facility] [address] [id number] [address] [place] [address], [place] [address] 24 May, 2013 [facility] [address] [id number] [address] [place] [address], [place] [address] 24 May, 2013 [facility] [address] [id number] [address] [place] [address], [place] [address] 19 May, 2013 [facility] [address] [id number] [address] [place] [address], [place] [address] 19 May, 2013 [facility] [address] [id number] [address] [place] [address], [place] [address] 11 May, 2013 [facility] [address] [id number] [address] [place] [address], [place] [address] 11 May, 2013 [facility] [address] [id number] [address] [place] [address], [place] [address] 11 May, 2013 [facility] [address] [id number] [address] [place] [address], [place] [address] 11 May, 2013 [facility] [address] [id number] [address] [place] [address], [place] [address] 10 May, 2013 [facility] [address] [id number] [address] [place] [address], [place] [address] 09 May, 2013 [facility] [address] [id number] [address] [place] [address], [place] [address] 09 May, 2013 [facility] [address] [id number] [address] [place] [address], [place] [address] 08 May, 2013 [facility] [address] [id number] [address] [place] [address], [place] [address] Apr, [facility] [address] [id number] [address] [place] [address], [place] [address] Apr, [facility] [address] [id number] [address] [place] [address] Aug, [facility] [address] [facility] [id number] [address] [place] [id number] Jul, IMMUNIZATIONS No Known Immunizations SOCIAL HISTORY Never Assessed REASON FOR VISIT Controlled Medication Refill PLAN OF CARE VITAL SIGNS MEDICATIONS Medication Instructions Dosage Frequency Start Date End Date Duration S farooq OxyContin 15 mg Orally every 12 hrs 1 tablet 12h Dec, 28 days Active RESULTS No Results PROCEDURES [...]
--- OUTSIDE RECORDS SUMMARY | 2020-02-27 15:50 | XMS REPORT ---
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 Phone EDWARD CORBIN Unavailable PROBLEMS Type Condition ICD9-CM Code ZHO01-VK Code Onset Dates Condition S tatus SNOMED Code Problem Colon wall thickening K63.9 Active 744997078 Problem Mild persistent asthma without complication J45.30 Active 081183284 Problem Osteoporosis M81.0 Active 8329924 6 Problem Generalized anxiety disorder F41.1 A ctive 16078886 Problem Severe episode of recurrent major depressive disorder, without psychotic features F33.2 Active 26549470 Problem Moderate persistent asthma with acute exacerbation J45.41 Active [id number] Problem Gastroesophageal reflux disease, esophagitis pre sence not specified K21.9 Active 541387117 Problem Asthma exacerbation J45.901 Active 558235720 Problem Chronic pain syndrome G89.4 Active 572383667 Problem Chronic constipation K59.00 Active 899569130 Problem Essential hypertension I10 Active 69264478 Problem Chronic kidney disease, stage 1 N18.1 Active 152967706 Problem Hyperlipidemia, unspecified hyperlipidemia E78.5 Active 26992937 Problem Pernicious anemia D51.0 Active 84 833388 Problem Atrophy of left kidney N26.1 Active 594551311 Problem Vitamin D deficiency E55.9 Active 90220402 Problem Chronic prescription opiate use Z79.899 Active 883518238 Problem Rheumatoid arthritis involvi ng multiple sites with positive rheumatoid factor M05.89 Active 354327709 Problem Bladder wall thickening N32.89 Active 007526047 ALLERGIES No Information ENCOUNTERS Encounter Location Date Diagnosis [facility] [address] [facility] [id number] [address] [place] [phone] January, Tachycardia R00.0 and Modera te persistent asthma with acute exacerbation J45.41 [facility] [address] [facility] [id number] [address] [place] [address] January, Tachycardia R00.0 ; Moderate persistent asthma with acute exacerbation J45.41 ; Gastroesophageal reflux disease, esophagitis presence not specified K21.9 ; Hyperlipidemia, unspecified hyperlipidemia E78.5 and Chronic pain syndrome G89.4 [facility] [address] [place] [id number] [address] [place] [address] Dec, Medicare annual wellness vis it, initial [...] immunization Z23 and Chronic pain syndrome G89.4 [place] [address] [address] 24 Dec, 2017 Chronic pain syndrome G89.4 [place] [address] [address] Dec, [place] [address] [address] Nov, [place] [address] [place] [id number] [address] [place] [address] Nov, Chronic pain syndrome G89.4 [place] [address] [place] [id number] [address] [place] [address] Oct, Chronic pain syndrome G89.4 [place] [id number] [place] [address] 08 Oct, 2017 Chronic kidney disease, stag e 1 N18.1 [place] [address] [place] [id number] [address] [place] [address] 07 Oct, 2017 Chronic prescription opiate use Z79.899 ; Cough R05 ; Asthma exacerbation J45.901 ; Elevated liver enzymes R74.8 ; Rheumatoid arthritis involving multiple sites with positive rheumatoid factor M05.89 and Chronic pain syndrome G89.4 [facility] [address] [id number] [address] [place] [phone] Sep, Chronic pain syndrome G89.4 [facility] [address] [id number] [address] [place] [phone] Sep, [facility] [address] [facility] [id number] [address] [place] [address] Aug, Acute bronchitis, unspecifie d organism J20.9 [facility] [address] [id number] [address] [place] [address] Aug, Chronic pain syndrome G89.4 [facility] [address] [id number] [address] [place] [address] Jul, Chronic pain syndrome G89.4 [facility] [address] [facility] [id number] [address] [place] [address] Jun, Chronic pain syndrome G89.4 [facility] [address] [id number] [address] [place] [id number] 29 May, 2017 Rheumatoid arthritis involvi ng multiple sites with positive rheumatoid factor M05.89 [facility] [address] [id number] [address] [place] [phone] 26 May, 2017 Gastroesophageal reflux dise ase, esophagitis presence not specified K21.9 and Chronic pain syndrome G89.4 [facility] [address] [id number] [address] [place] [id number] May, [facility] [address] [facility] [id number] [address] [place] [address] May, Esophageal candidiasis B37.8 1 and Chronic kidney disease, stage 1 N18.1 [facility] [address] [facility] [id number] [address] [place] [phone] 11 May, 2017 Chronic kidney disease, stag e 1 N18.1 [facility] [address] [facility] [id number] [address] [place] [address] May, Cough R05 ; Fever, unspecifi ed fever cause R50.9 ; Rheumatoid arthritis involving multiple sites with positive rheumatoid factor M05.89 and Chronic prescription opiate use Z79.899 [facility] [address] [facility] [id number] [address] [place] [address] Apr, [facility] [address] [facility] [id number] [address] [place] [address] Apr, Cough R05 [facility] [address] [facility] [id number] [address] [place] [address] Apr, Asthma exacerbation J45.901 [place] [address] [place] [id number] [address] [place] [address] Apr, [place] [address] [place] [id number] [address] [place] [address] Apr, Generalized anxiety disorder F41.1 and Severe episode of recurrent major depressive disorder, without psychotic features F33.2 [place] [address] [place] [id number] [address] [place] [address] Mar, [place] [address] [place] [id number] [address] [place] [address] Feb, Chronic pain syndrome G89.4 [place] [address] [place] [id number] [address] [place] [address] Feb, Acute non-recurrent maxillar y sinusitis J01.00 [facility] [address] [place] [id number] [address] [place] [address] Feb, Acute non-recurrent frontal sinusitis J01.10 [place] [address] [place] [id number] [address] [place] [address] Feb, Chronic pain syndrome G89.4 [place] [address] [facility] [id number] [address] [place] [address] January, Acute cystitis with hematuri a N30.01 [place] [address] [address] January, Acute cystitis with hematuri a N30.01 ; Dysuria R30.0 and Moderate persistent asthma with acute exacerbation J45.41 [place] [address] [address] January, [place] [address] [address] January, Chronic pain syndrome G89.4 [place] [address] [address] January, Asthma exacerbation J45.901 [place] [address] [address] January, Asthma exacerbation J45.901 [place] [address] [address] Dec, Cough R05 ; Numbness in both hands R20.0 ; Ground glass opacity present on imaging of lung R91.8 ; Hypoxia R09.02 and Asthma exacerbation J45.901 [place] [address] [address] Dec, Chronic pain syndrome G89.4 [place] [address] [address] Nov, Chronic prescription opiate use Z79.899 ; Rheumatoid arthritis involving multiple sites with positive rheumatoid factor M05.89 ; Moderate persistent asthma with acute exacerbation J45.41 ; Pneumonia of right lower lobe due to infectious organism J18.1 ; Chronic pain syndrome G89.4 ; Gastroesophageal reflux disease, esophagitis presence not specified K21.9 and Hyperlipidemia, unspecified hyperlipidemia E78.5 [place] [address] [address] Nov, Rheumatoid arthritis involvi ng multiple sites with positive rheumatoid factor M05.89 [place] [address] [address] Oct, [facility] [address] [facility] [id number] [address] [place] [address] Oct, Essential hypertension I10 [facility] [address] [facility] [id number] [address] [place] [address] Sep, Hypoxia R09.02 and Ground gl ass opacity present on imaging of lung R91.8 [place] [address] [facility] [id number] [address] [place] [address] Sep, Moderate persistent asthma w ith acute exacerbation J45.41 [facility] [address] [place] [id number] [place] [id number] Sep, [place] [address] [facility] [id number] [address] [place] [address] Sep, Chronic constipation K59.00 and Moderate persistent asthma with acute exacerbation J45.41 [facility] [address] [place] [id number] [address] [place] [address] Sep, Moderate persistent asthma w ith acute exacerbation J45.41 [facility] [address] [facility] [id number] [address] [place] [address] Aug, [facility] [address] [facility] [id number] [address] [place] [address] Aug, [facility] [address] [place] [id number] [address] [place] [address] Aug, [facility] [address] [facility] [id number] [address] [place] [address] Aug, Rheumatoid arthritis involvi ng multiple sites with positive rheumatoid factor M05.89 ; Essential hypertension I10 ; Hyperlipidemia, unspecified hyperlipidemia E78.5 ; Chronic constipation K59.00 and Moderate persistent asthma with acute exacerbation J45.41 [facility] [address] [facility] [id number] [address] [place] [address] Aug, Bronchitis J40 [facility] [address] [facility] [id number] [address] [place] [address] Aug, Rheumatoid arthritis involvi ng multiple sites with positive rheumatoid factor M05.89 [facility] [address] [facility] [id number] [address] [place] [address] Aug, Pharyngitis, unspecified pablito ology J02.9 and Acute nasopharyngitis J00 [facility] [address] [facility] [id number] [address] [place] [address] Aug, [facility] [address] [facility] [id number] [address] [place] [address] Jul, [facility] [address] [facility] [id number] [address] [place] [address] Jul, Rheumatoid arthritis involvi ng multiple sites with positive rheumatoid factor M05.89 ; Essential hypertension I10 ; Hyperlipidemia, unspecified hyperlipidemia E78.5 ; Rash R21 ; Mild persistent asthma with acute exacerbation J45.31 ; Hematuria R31.9 ; Osteoporosis M81.0 and Gastroesophageal reflux disease, esophagitis presence not specified K21.9 [facility] [address] [facility] [id number] [address] [place] [address] Jun, [facility] [address] [facility] [id number] [address] [place] [address] Jun, Dysuria R30.0 [facility] [address] [facility] [id number] [address] [place] [address] Jun, Acute non-recurrent maxillar y sinusitis J01.00 and Dysuria R30.0 [facility] [address] [facility] [id number] [address] [place] [address] 16 May, 2016 [facility] [address] [facility] [id number] [address] [place] [phone] May, [facility] [address] [place] [id number] [address] [place] [address] Apr, Chronic prescription opiate use Z79.899 and Rheumatoid arthritis involving multiple sites with positive rheumatoid factor M05.89 [facility] [address] [facility] [id number] [address] [place] [address] Mar, [facility] [address] [facility] [id number] [address] [place] [address] Feb, Dizziness of unknown cause R 42 and Other chronic pain G89.29 [facility] [address] [facility] [id number] [address] [place] [address] Feb, [place] [address] [facility] [id number] [address] [place] [address] Feb, Shortness of breath R06.02 [facility] [address] [facility] [id number] [address] [place] [address] January, [place] [address] [facility] [id number] [address] [place] [address] January, Rheumatoid arthritis involvi ng multiple sites with positive rheumatoid factor M05.89 ; Chronic prescription opiate use Z79.899 ; Hyperlipidemia, unspecified hyperlipidemia E78.5 ; Cough R05 ; Exposure to pneumonia Z20.828 ; Diarrhea, unspecified type R19.7 ; Weight loss R63.4 ; Lumbago with sciatica, right side M54.41 and Lumbago with sciatica, left side M54.42 [place] [address] [facility] [id number] [address] [place] [address] Dec, [place] [address] [facility] [id number] [address] [place] [address] Dec, Bronchitis J40 [place] [address] [facility] [id number] [address] [place] [address] Nov, [place] [address] [facility] [id number] [address] [place] [phone] Nov, [place] [address] [facility] [id number] [address] [place] [address] Nov, [place] [address] [facility] [id number] [address] [place] [address] Nov, Bloody diarrhea R19.7 ; Conklin n wall thickening K63.9 ; Shortness of breath R06.02 and Bladder wall thickening N32.89 [facility] [address] [id number] [address] [place] [id number] 15 Oct, 2015 Dental examination Z01.20 [facility] [address] [id number] [address] [place] [phone] 15 Oct, 2015 [facility] [address] [id number] [address] [place] [phone] 15 Oct, 2015 Toothache K08.8 [facility] [address] [id number] [address] [place] [address] [id number] 11 Oct, 2015 Dental examination Z01.20 [facility] [address] [id number] [address] [place] [address] 02 Oct, 2015 [facility] [address] [facility] [id number] [address] [place] [phone] 18 Sep, 2015 [facility] [address] [facility] [id number] [address] [place] [phone] 13 Sep, 2015 Burning with urination R30.0 [facility] [address] [facility] [id number] [address] [place] [address] 12 Sep, 2015 Hematuria R31.9 ; Rheumatoid arthritis involving multiple sites with positive rheumatoid factor M05.89 and Rheumatoid arthritis flare M06.9 [facility] [address] [facility] [id number] [address] [place] [address] Aug, Hyperlipidemia, unspecified hyperlipidemia E78.5 and Hematuria R31.9 [facility] [address] [id number] [address] [place] [address] Aug, Hematuria R31.9 ; Chronic ki dney disease, stage 1 N18.1 and Hyperlipidemia, unspecified hyperlipidemia E78.5 [facility] [address] [id number] [address] [place] [address] Aug, Rheumatoid arthritis involvi ng multiple sites with positive rheumatoid factor M05.89 ; Asthma exacerbation J45.901 ; Hematuria R31.9 ; Hyperlipidemia, unspecified hyperlipidemia E78.5 and Chronic kidney disease, stage 1 N18.1 [facility] [address] [id number] [address] [place] [address] Aug, [facility] [address] [id number] [address] [place] [phone] Jul, [facility] [address] [id number] [address] [place] [phone] Jul, Lumbosacral radiculopathy M5 4.17 [facility] [address] [id number] [address] [place] [address] Jul, [facility] [address] [facility] [id number] [address] [place] [address] Jun, Rheumatoid arthritis involvi ng multiple sites with positive rheumatoid factor M05.89 ; Hyperlipidemia, unspecified hyperlipidemia E78.5 ; Lumbosacral radiculopathy M54.17 ; Carpal tunnel syndrome, right upper limb G56.01 and Carpal tunnel syndrome, left upper limb G56.02 [facility] [address] [facility] [id number] [address] [place] [address] Jun, [facility] [address] [facility] [id number] [address] [place] [id number] May, Lumbar radicular pain 724.4 and Dysuria 788.1 [facility] [address] [facility] [id number] [address] [place] [address] May, Rheumatoid arthritis 714.0 ; Lumbar radicular pain 724.4 ; Burn 949.0 and Thoracic back pain 724.1 [facility] [address] [id number] [address] [place] [phone] May, [facility] [address] [facility] [id number] [address] [place] [address] May, [facility] [address] [facility] [id number] [address] [place] [address] Apr, [facility] [address] [id number] [address] [place] [address] Mar, Hyperlipidemia 272.4 [facility] [address] [id number] [address] [place] [address] Mar, [facility] [address] [id number] [address] [place] [phone] Mar, [facility] [address] [id number] [address] [place] [address] Mar, Diarrhea 787.91 ; Chronic ki dney disease, unspecified 585.9 ; Hyperlipidemia 272.4 and Asthma 493.90 [facility] [address] [id number] [address] [place] [address] Mar, [facility] [address] [facility] [id number] [address] [place] [address] Mar, Gastroenteritis 558.9 [facility] [address] [id number] [address] [place] [address] Feb, [facility] [address] [id number] [address] [place] [phone] January, [facility] [address] [facility] [id number] [address] [place] [address] January, [facility] [address] [facility] [id number] [address] [place] [address] Dec, [facility] [address] [id number] [address] [place] [phone] Dec, [facility] [address] [id number] [address] [place] [phone] Nov, [facility] [address] [id number] [address] [place] [phone] Nov, [facility] [address] [id number] [address] [place] [phone] Nov, [facility] [address] [id number] [address] [place] [phone] Nov, [facility] [address] [id number] [address] [place] [address], [place] [address] Nov, [facility] [address] [id number] [address] [place] [address], [place] [address] Nov, [facility] [address] [id number] [address] [place] [address], [place] [address] Oct, [facility] [address] [id number] [address] [place] [address], [place] [address] Oct, [facility] [address] [id number] [address] [place] [address], [place] [address] Sep, [facility] [address] [id number] [address] [place] [address], [place] [address] Sep, [facility] [address] [id number] [address] [place] [address], [place] [address] Sep, [facility] [address] [id number] [address] [place] [address], [place] [address] Sep, [facility] [address] [id number] [address] [place] [address], [place] [address] Sep, [facility] [address] [id number] [address] [place] [address], [place] [address] Sep, [facility] [address] [id number] [address] [place] [address], [place] [address] Aug, [facility] [address] [id number] [address] [place] [address], [place] [address] Aug, [facility] [address] [id number] [address] [place] [address], [place] [address] Aug, [facility] [address] [id number] [address] [place] [address], [place] [address] Aug, [facility] [address] [id number] [address] [place] [address], [place] [address] Jul, [facility] [address] [id number] [address] [place] [address], [place] [address] Jul, [facility] [address] [id number] [address] [place] [address], [place] [address] Jul, [facility] [address] [id number] [address] [place] [address], [place] [address] Jul, [facility] [address] [id number] [address] [place] [address], [place] [address] Jul, [facility] [address] [id number] [address] [place] [address], [place] [address] Jul, [facility] [address] [id number] [address] [place] [address], [place] [address] Jul, [facility] [address] [id number] [address] [place] [address], [place] [address] Jul, [facility] [address] [address] [id number] [address] [place] [address], [place] [address] Jul, [facility] [address] [id number] [address] [place] [address], [place] [address] Jun, [facility] [address] [id number] [address] [place] [address], [place] [address] Jun, [facility] [address] [id number] [address] [place] [address], [place] [address] Jun, [facility] [address] [id number] [address] [place] [address], [place] [address] May, [facility] [address] [id number] [address] [place] [address], [place] [address] May, [facility] [address] [id number] [address] [place] [address], [place] [id number] 24 May, 2014 [facility] [address] [id number] [address] [place] [address], [place] [address] May, [facility] [address] [id number] [address] [place] [address], [place] [address] May, [facility] [address] [id number] [address] [place] [phone] 24 May, 2013 [facility] [address] [id number] [address] [place] [phone] May, [facility] [address] [id number] [address] [place] [phone] May, 2013 [facility] [address] [id number] [address] [place] [phone] May, 2013 [facility] [address] [id number] [address] [place] [address], [place] [address] May, [facility] [address] [id number] [address] [place] [id number] May, [facility] [address] [id number] [address] [place] [phone] May, [facility] [address] [id number] [address] [place] [phone] 10 May, 2014 [facility] [address] [id number] [address] [place] [phone] May, [facility] [address] [id number] [address] [place] [phone] May, [facility] [address] [id number] [address] [place] [phone] May, [facility] [address] [id number] [address] [place] [phone] Apr, [facility] [address] [id number] [address] [place] [phone] Apr, [facility] [address] [id number] [address] [place] [phone] Aug, [facility] [address] [id number] [address] [place] [phone] Jul, IMMUNIZATIONS No Known Immunizations SOCIAL HISTORY Never Assessed REASON FOR VISIT Controlled Medication Refill PLAN OF CARE VITAL SIGNS MEDICATIONS Medication Instructions Dosage Frequency Start Date End Date Duration Jose Manuel trivedi OxyContin 15 mg Orally every 12 hrs 1 tablet 12h 25 Jun, 2017 28 days Active RESULTS No Results PROCEDURES [...]
--- OUTSIDE RECORDS SUMMARY | 2020-02-27 15:50 | XMS REPORT ---
Author Author Beba CORBIN [facility] Address [address] [place] [address] Care Team Providers Care Talent Acquisition Operations Manager Name Role Phone EMERALDYOGESH JEFFERSY Unavailable PROBLEMS Type Condition ICD9-CM Code QJL98-DE Code Onset Dates Condition S tatus SNOMED Code Problem Bladder wall thickening N32.89 Active 617729783 Problem Gastroesophageal reflux disease, esophagitis pre sence not specified K21.9 Active 512887758 Problem Osteoporosis M81.0 Active 1232410 6 Problem Moderate persistent asthma without complication J4 5.40 Active 525741504 Problem Generalized anxiety disorder F41.1 A ctive 12850555 Problem Chronic pain syndrome G89.4 Active 380894284 Problem Moderate persistent asthma with acute exacerbation J45.41 Active [id number] Problem Severe episode of recurrent major depressive disorder, without psychotic features F33.2 Active 91021898 Problem Asthma exacerbation J45.901 Active 161659820 Problem Chronic constipation K59.00 Active 118640242 Problem Essential hypertension I10 Active 36102592 Problem Hyperlipidemia, unspecified hyperlipidemia E78.5 Active 32848080 Problem Chronic kidney disease, stage 1 N18.1 Active 100400688 Problem Rheumatoid arthritis involvi ng multiple sites with positive rheumatoid factor M05.89 Active 347590092 Problem Atrophy of left kidney N26.1 Active 916786159 Problem Vitamin D deficiency E55.9 Active 76507152 Problem Chronic prescription opiate use Z79.899 Active 215776970 Problem Pernicious anemia D51.0 Active 84 191848 Problem Colon wall thickening K63.9 Active 431589346 ALLERGIES No Information ENCOUNTERS Encounter Location Date Diagnosis [facility] [address] [facility] [id number] [address] [place] [phone] Mar, [facility] [address] [facility] [id number] [address] [place] [phone] Mar, Asthma exacerbation J45.901 and Sprain of right ankle, unspecified ligament, subsequent encounter S93.401D [facility] [address] [facility] [id number] [address] [place] [address] 30 Feb, 2018 Injury of right ankle, initi al encounter S99.911A [facility] [address] [facility] [id number] [address] [place] [phone] Feb, Chronic pain syndrome G89.4 [facility] [address] [id number] [address] [place] [phone] Feb, Chronic pain syndrome G89.4 [place] [address] [facility] [id number] [address] [place] [phone] Feb, Moderate persistent asthma w ith acute exacerbation J45.41 and Persistent cough for 3 weeks or longer R05 [facility] [address] [facility] [id number] [address] [place] [phone] January, [facility] [address] [facility] [id number] [address] [place] [phone] January, Moderate persistent asthma w ith acute exacerbation J45.41 [place] [address] [facility] [id number] [address] [place] [address] January, Chronic pain syndrome G89.4 [facility] [address] [facility] [id number] [address] [place] [phone] January, Tachycardia R00.0 and Modera te persistent asthma with acute exacerbation J45.41 [facility] [address] [facility] [id number] [address] [place] [address] January, Tachycardia R00.0 ; Moderate persistent asthma with acute exacerbation J45.41 ; Gastroesophageal reflux disease, esophagitis presence not specified K21.9 ; Hyperlipidemia, unspecified hyperlipidemia E78.5 and Chronic pain syndrome G89.4 [facility] [address] [facility] [id number] [address] [place] [phone] Dec, Medicare annual wellness vis it, initial [...] immunization Z23 and Chronic pain syndrome G89.4 [facility] [address] [place] [id number] [address] [place] [phone] 24 Dec, 2017 Chronic pain syndrome G89.4 [facility] [address] [place] [id number] [address] [place] [phone] Dec, [place] [address] [address] Nov, [place] [address] [phone] Nov, Chronic pain syndrome G89.4 [place] [address] [place] [id number] [address] [place] [phone] Oct, Chronic pain syndrome G89.4 [place] [address] [id number] 08 Oct, 2017 Chronic kidney disease, stag e 1 N18.1 [place] [address] [place] [id number] [place] [address] 07 Oct, 2017 Chronic prescription opiate use Z79.899 ; Cough R05 ; Asthma exacerbation J45.901 ; Elevated liver enzymes R74.8 ; Rheumatoid arthritis involving multiple sites with positive rheumatoid factor M05.89 and Chronic pain syndrome G89.4 [facility] [address] [place] [id number] [address] [place] [phone] Sep, Chronic pain syndrome G89.4 [facility] [address] [place] [id number] [address] [place] [phone] Sep, [facility] [address] [place] [id number] [address] [place] [phone] Aug, Acute bronchitis, unspecifie d organism J20.9 [facility] [address] [facility] [id number] [address] [place] [phone] Aug, Chronic pain syndrome G89.4 [facility] [address] [facility] [id number] [address] [place] [phone] Jul, Chronic pain syndrome G89.4 [facility] [address] [place] [id number] [address] [place] [phone] Jun, Chronic pain syndrome G89.4 [facility] [address] [place] [id number] [address] [place] [phone] May, Rheumatoid arthritis involvi ng multiple sites with positive rheumatoid factor M05.89 [place] [address] [place] [id number] [address] [place] [address] May, Gastroesophageal reflux dise ase, esophagitis presence not specified K21.9 and Chronic pain syndrome G89.4 [place] [address] [place] [id number] [address] [place] [address] May, [place] [address] [place] [id number] [place] [address] May, Chronic kidney disease, stag e 1 N18.1 and Esophageal candidiasis B37.81 [place] [address] [place] [id number] [address] [place] [id number] May, Chronic kidney disease, stag e 1 N18.1 [place] [address] [place] [id number] [address] [place] [id number] 05 May, 2017 Cough R05 ; Fever, unspecifi ed fever cause R50.9 ; Rheumatoid arthritis involving multiple sites with positive rheumatoid factor M05.89 and Chronic prescription opiate use Z79.899 [facility] [address] [facility] [id number] [address] [place] [phone] Apr, [place] [address] [facility] [id number] [address] [place] [address] Apr, Cough R05 [facility] [address] [id number] [address] [place] [address] Apr, Asthma exacerbation J45.901 [facility] [address] [id number] [address] [place] [address] Apr, [facility] [address] [facility] [id number] [address] [place] [address] Apr, Generalized anxiety disorder F41.1 and Severe episode of recurrent major depressive disorder, without psychotic features F33.2 [facility] [address] [id number] [address] [place] [address] Mar, [facility] [address] [id number] [address] [place] [address] Feb, Chronic pain syndrome G89.4 [place] [address] [facility] [id number] [address] [place] [address] Feb, Acute non-recurrent maxillar y sinusitis J01.00 [facility] [address] [id number] [address] [place] [phone] Feb, Acute non-recurrent frontal sinusitis J01.10 [place] [address] [facility] [id number] [address] [place] [address] Feb, Chronic pain syndrome G89.4 [facility] [address] [facility] [id number] [address] [place] [address] January, Acute cystitis with hematuri a N30.01 [facility] [address] [facility] [id number] [address] [place] [address] January, Acute cystitis with hematuri a N30.01 ; Dysuria R30.0 and Moderate persistent asthma with acute exacerbation J45.41 [facility] [address] [facility] [id number] [address] [place] [phone] January, [facility] [address] [facility] [id number] [address] [place] [address] January, Chronic pain syndrome G89.4 [place] [address] [facility] [id number] [address] [place] [address] January, Asthma exacerbation J45.901 [place] [address] [facility] [id number] [address] [place] [address] January, Asthma exacerbation J45.901 [place] [address] [facility] [id number] [address] [place] [address] Dec, Cough R05 ; Numbness in both hands R20.0 ; Ground glass opacity present on imaging of lung R91.8 ; Hypoxia R09.02 and Asthma exacerbation J45.901 [place] [address] [facility] [id number] [address] [place] [address] Dec, Chronic pain syndrome G89.4 [place] [address] [place] [id number] [address] [place] [address] Nov, Chronic prescription opiate use Z79.899 ; Rheumatoid arthritis involving multiple sites with positive rheumatoid factor M05.89 ; Moderate persistent asthma with acute exacerbation J45.41 ; Pneumonia of right lower lobe due to infectious organism J18.1 ; Chronic pain syndrome G89.4 ; Gastroesophageal reflux disease, esophagitis presence not specified K21.9 and Hyperlipidemia, unspecified hyperlipidemia E78.5 [place] [address] [facility] [id number] [address] [place] [address] Nov, Rheumatoid arthritis involvi ng multiple sites with positive rheumatoid factor M05.89 [place] [address] [facility] [id number] [address] [place] [phone] Oct, [place] [address] [facility] [id number] [address] [place] [address] Oct, Essential hypertension I10 [place] [address] [facility] [id number] [address] [place] [address] Sep, Hypoxia R09.02 and Ground gl ass opacity present on imaging of lung R91.8 [place] [address] [facility] [id number] [address] [place] [phone] Sep, Moderate persistent asthma w ith acute exacerbation J45.41 [facility] [id number] [place] [id number] Sep, [facility] [address] [facility] [id number] [address] [place] [address] Sep, Chronic constipation K59.00 and Moderate persistent asthma with acute exacerbation J45.41 [facility] [address] [facility] [id number] [address] [place] [phone] Sep, Moderate persistent asthma w ith acute exacerbation J45.41 [facility] [address] [id number] [address] [place] [phone] Aug, [facility] [address] [facility] [id number] [address] [place] [address] Aug, [facility] [address] [facility] [id number] [address] [place] [phone] Aug, [facility] [address] [facility] [id number] [address] [place] [address] Aug, Rheumatoid arthritis involvi ng multiple sites with positive rheumatoid factor M05.89 ; Essential hypertension I10 ; Hyperlipidemia, unspecified hyperlipidemia E78.5 ; Chronic constipation K59.00 and Moderate persistent asthma with acute exacerbation J45.41 [facility] [address] [facility] [id number] [address] [place] [phone] Aug, Bronchitis J40 [facility] [address] [facility] [id number] [address] [place] [phone] Aug, Rheumatoid arthritis involvi ng multiple sites with positive rheumatoid factor M05.89 [facility] [address] [facility] [id number] [address] [place] [phone] Aug, Pharyngitis, unspecified pablito ology J02.9 and Acute nasopharyngitis J00 [facility] [address] [facility] [id number] [address] [place] [phone] Aug, [facility] [address] [facility] [id number] [address] [place] [address] Jul, [facility] [address] [facility] [id number] [address] [place] [address] Jul, Rheumatoid arthritis involvi ng multiple sites with positive rheumatoid factor M05.89 ; Essential hypertension I10 ; Hyperlipidemia, unspecified hyperlipidemia E78.5 ; Rash R21 ; Mild persistent asthma with acute exacerbation J45.31 ; Hematuria R31.9 ; Osteoporosis M81.0 and Gastroesophageal reflux disease, esophagitis presence not specified K21.9 [facility] [address] [place] [id number] [place] [phone] Jun, [facility] [address] [place] [id number] [place] [address] Jun, Dysuria R30.0 [facility] [address] [place] [id number] [address] [place] [phone] Jun, Acute non-recurrent maxillar y sinusitis J01.00 and Dysuria R30.0 [facility] [address] [place] [id number] [address] [place] [address] May, [facility] [address] [place] [id number] [place] [address] May, [facility] [address] [place] [id number] [place] [phone] Apr, Chronic prescription opiate use Z79.899 and Rheumatoid arthritis involving multiple sites with positive rheumatoid factor M05.89 [facility] [address] [place] [id number] [address] [place] [address] Mar, [facility] [address] [place] [id number] [address] [place] [address] Feb, Dizziness of unknown cause R 42 and Other chronic pain G89.29 [facility] [address] [place] [id number] [address] [place] [address] Feb, [facility] [address] [place] [id number] [place] [address] Feb, Shortness of breath R06.02 [facility] [address] [facility] [id number] [address] [place] [phone] January, [facility] [address] [facility] [id number] [address] [place] [address] January, Rheumatoid arthritis involvi ng multiple sites with positive rheumatoid factor M05.89 ; Chronic prescription opiate use Z79.899 ; Hyperlipidemia, unspecified hyperlipidemia E78.5 ; Cough R05 ; Exposure to pneumonia Z20.828 ; Diarrhea, unspecified type R19.7 ; Weight loss R63.4 ; Lumbago with sciatica, right side M54.41 and Lumbago with sciatica, left side M54.42 [facility] [address] [facility] [id number] [address] [place] [phone] Dec, [facility] [address] [facility] [id number] [address] [place] [address] Dec, Bronchitis J40 [facility] [address] [facility] [id number] [address] [place] [phone] Nov, [facility] [address] [facility] [id number] [address] [place] [phone] Nov, [facility] [address] [facility] [id number] [address] [place] [phone] Nov, [facility] [address] [facility] [id number] [address] [place] [address] Nov, Bloody diarrhea R19.7 ; [place] n wall thickening K63.9 ; Shortness of breath R06.02 and Bladder wall thickening N32.89 [facility] [address] [id number] [address] [place] [id number] Oct, Dental examination Z01.20 [facility] [address] [facility] [id number] [address] [place] [address] Oct, [facility] [address] [facility] [id number] [address] [place] [address] Oct, Toothache K08.8 [facility] [address] [id number] [address] [place] [address] [id number] 11 Oct, 2015 Dental examination Z01.20 [facility] [address] [facility] [id number] [address] [place] [id number] 02 Oct, 2015 [facility] [address] [facility] [id number] [address] [place] [phone] 18 Sep, 2015 [facility] [address] [facility] [id number] [address] [place] [id number] 13 Sep, 2015 Burning with urination R30.0 [place] [address] [facility] [id number] [address] [place] [phone] Sep, Hematuria R31.9 ; Rheumatoid arthritis involving multiple sites with positive rheumatoid factor M05.89 and Rheumatoid arthritis flare M06.9 [place] [address] [place] [id number] [address] [place] [id number] Aug, Hyperlipidemia, unspecified hyperlipidemia E78.5 and Hematuria R31.9 [place] [address] [facility] [id number] [address] [place] [phone] Aug, Hematuria R31.9 ; Chronic ki dney disease, stage 1 N18.1 and Hyperlipidemia, unspecified hyperlipidemia E78.5 [place] [address] [facility] [id number] [address] [place] [address] Aug, Rheumatoid arthritis involvi ng multiple sites with positive rheumatoid factor M05.89 ; Asthma exacerbation J45.901 ; Hematuria R31.9 ; Hyperlipidemia, unspecified hyperlipidemia E78.5 and Chronic kidney disease, stage 1 N18.1 [facility] [address] [facility] [id number] [address] [place] [phone] Aug, [facility] [address] [facility] [id number] [address] [place] [phone] Jul, [facility] [address] [facility] [id number] [address] [place] [address] Jul, Lumbosacral radiculopathy M5 4.17 [facility] [address] [id number] [address] [place] [phone] Jul, [facility] [address] [id number] [address] [place] [phone] Jun, Rheumatoid arthritis involvi ng multiple sites with positive rheumatoid factor M05.89 ; Hyperlipidemia, unspecified hyperlipidemia E78.5 ; Lumbosacral radiculopathy M54.17 ; Carpal tunnel syndrome, right upper limb G56.01 and Carpal tunnel syndrome, left upper limb G56.02 [facility] [address] [id number] [address] [place] [phone] Jun, [facility] [address] [id number] [address] [place] [phone] May, Lumbar radicular pain 724.4 and Dysuria 788.1 [facility] [address] [id number] [address] [place] [address] May, Rheumatoid arthritis 714.0 ; Lumbar radicular pain 724.4 ; Burn 949.0 and Thoracic back pain 724.1 [facility] [address] [id number] [address] [place] [phone] May, [facility] [address] [id number] [address] [place] [phone] May, [facility] [address] [id number] [address] [place] [phone] Apr, [facility] [address] [id number] [address] [place] [phone] Mar, Hyperlipidemia 272.4 [facility] [address] [id number] [address] [place] [phone] Mar, [facility] [address] [id number] [address] [place] [id number] Mar, [facility] [address] [id number] [address] [place] [phone] Mar, Diarrhea 787.91 ; Chronic ki dney disease, unspecified 585.9 ; Hyperlipidemia 272.4 and Asthma 493.90 [facility] [address] [id number] [address] [place] [phone] Mar, [facility] [address] [facility] [id number] [address] [place] [phone] Mar, Gastroenteritis 558.9 [facility] [address] [id number] [address] [place] [phone] Feb, [facility] [address] [id number] [address] [place] [phone] January, [facility] [address] [id number] [address] [place] [phone] January, [facility] [address] [id number] [address] [place] [phone] Dec, [facility] [address] [id number] [address] [place] [phone] Dec, [facility] [address] [id number] [address] [place] [phone] Nov, [facility] [address] [id number] [address] [place] [phone] Nov, [facility] [address] [id number] [address] [place] [phone] Nov, [facility] [address] [id number] [address] [place] [id number] Nov, [facility] [address] [id number] [address] [place] [id number] Nov, [facility] [address] [id number] [address] [place] [id number] Nov, [facility] [address] [id number] [address] [place] [phone] Oct, [facility] [address] [id number] [address] [place] [address], [place] [id number] 16 Oct, 2014 [facility] [address] [id number] [address] [place] [address], [place] [id number] Sep, [facility] [address] [id number] [address] [place] [address], [place] [id number] Sep, [facility] [address] [id number] [address] [place] [address], [place] [id number] Sep, [facility] [address] [id number] [place] [address], [place] [address] Sep, [facility] [address] [id number] [address] [place] [address], [place] [address] Sep, [facility] [address] [id number] [address] [place] [address], [place] [address] Sep, [facility] [address] [id number] [address] [place] [address], [place] [address] Aug, [facility] [address] [id number] [address] [place] [address], [place] [address] Aug, [facility] [address] [id number] [address] [place] [address], [place] [address] Aug, [facility] [address] [id number] [address] [place] [address], [place] [address] Aug, [facility] [address] [id number] [address] [place] [address], [place] [address] Jul, [facility] [address] [id number] [address] [place] [address], [place] [address] Jul, [facility] [address] [id number] [address] [place] [address], [place] [address] Jul, [facility] [address] [id number] [address] [place] [address], [place] [address] Jul, [facility] [address] [id number] [address] [place] [address], [place] [address] Jul, [facility] [address] [id number] [address] [place] [address], [place] [address] Jul, [facility] [address] [id number] [address] [place] [address], [place] [address] Jul, [facility] [address] [id number] [address] [place] [address], [place] [address] Jul, [facility] [address] [id number] [address] [place] [address], [place] [address] Jul, [facility] [address] [id number] [address] [place] [address], [place] [address] Jun, [facility] [address] [id number] [address] [place] [address], [place] [address] Jun, [facility] [address] [id number] [address] [place] [address], [place] [address] Jun, [facility] [address] [id number] [address] [place] [address], [place] [address] 25 May, 2014 [facility] [address] [id number] [address] [place] [address], [place] [address] 25 May, 2014 [facility] [address] [id number] [address] [place] [id number] 24 May, 2014 [facility] [address] [id number] [address] [place] [id number] 24 May, 2013 [facility] [address] [id number] [address] [place] [id number] 24 May, 2013 [facility] [address] [id number] [address] [place] [address], [place] [address] 24 Sep, 2013 [facility] [address] [id number] [address] [place] [address], [place] [address] 19 May, 2013 [facility] [address] [id number] [address] [place] [address], [place] [address] 19 May, 2013 [facility] [address] [id number] [address] [place] [id number] May, [facility] [address] [id number] [address] [place] [id number] May, [facility] [address] [id number] [address] [place] [id number] May, [facility] [address] [id number] [address] [place] [id number] May, [facility] [address] [id number] [address] [place] [id number] May, [facility] [address] [id number] [address] [place] [id number] May, [facility] [address] [id number] [address] [place] [id number] May, [facility] [address] [id number] [address] [place] [id number] May, [facility] [address] [id number] [address] [place] [id number] Apr, [facility] [address] [id number] [address] [place] [id number] Apr, [facility] [address] [id number] [address] [place] [id number] Aug, [facility] [address] [id number] [address] [place] [id number] Jul, IMMUNIZATIONS No Known Immunizations SOCIAL HISTORY Never Assessed REASON FOR VISIT Request order PLAN OF CARE VITAL SIGNS MEDICATIONS Unknown [...]
--- OUTSIDE RECORDS SUMMARY | 2020-02-27 15:50 | XMS REPORT ---
Author Author Beba CORBIN [facility] Address [address] [place] [address] Care Team Providers Care Outbound Sales Specialist Name Role Phone EMERALDYOGESH JEFFERSY Unavailable PROBLEMS Type Condition ICD9-CM Code PLX22-PD Code Onset Dates Condition S tatus SNOMED Code Problem Bladder wall thickening N32.89 Active 704529429 Problem Gastroesophageal reflux disease, esophagitis pre sence not specified K21.9 Active 276579323 Problem Osteoporosis M81.0 Active 4835459 6 Problem Moderate persistent asthma without complication J4 5.40 Active 805300669 Problem Generalized anxiety disorder F41.1 A ctive 28198004 Problem Chronic pain syndrome G89.4 Active 555282202 Problem Moderate persistent asthma with acute exacerbation J45.41 Active [id number] Problem Severe episode of recurrent major depressive disorder, without psychotic features F33.2 Active 57100801 Problem Asthma exacerbation J45.901 Active 456729975 Problem Chronic constipation K59.00 Active 910170519 Problem Essential hypertension I10 Active 54056618 Problem Hyperlipidemia, unspecified hyperlipidemia E78.5 Active 01199893 Problem Chronic kidney disease, stage 1 N18.1 Active 767002124 Problem Rheumatoid arthritis involvi ng multiple sites with positive rheumatoid factor M05.89 Active 499302891 Problem Atrophy of left kidney N26.1 Active 589805910 Problem Vitamin D deficiency E55.9 Active 23441301 Problem Chronic prescription opiate use Z79.899 Active 785563236 Problem Pernicious anemia D51.0 Active 84 598672 Problem Colon wall thickening K63.9 Active 518548590 ALLERGIES No Information ENCOUNTERS Encounter Location Date Diagnosis [facility] [address] [facility] [id number] [address] [place] [phone] Mar, [facility] [address] [facility] [id number] [address] [place] [phone] Mar, Asthma exacerbation J45.901 and Sprain of right ankle, unspecified ligament, subsequent encounter S93.401D [facility] [address] [facility] [id number] [address] [place] [phone] 30 Feb, 2018 Injury of right ankle, initi al encounter S99.911A [facility] [address] [facility] [id number] [address] [place] [phone] Feb, Chronic pain syndrome G89.4 [facility] [address] [id number] [address] [place] [phone] Feb, Chronic pain syndrome G89.4 [place] [address] [facility] [id number] [address] [place] [address] Feb, Moderate persistent asthma w ith acute exacerbation J45.41 and Persistent cough for 3 weeks or longer R05 [facility] [address] [facility] [id number] [address] [place] [phone] January, [facility] [address] [facility] [id number] [address] [place] [address] January, Moderate persistent asthma w ith acute exacerbation J45.41 [place] [address] [facility] [id number] [address] [place] [phone] January, Chronic pain syndrome G89.4 [facility] [address] [facility] [id number] [address] [place] [address] January, Tachycardia R00.0 and Modera te persistent asthma with acute exacerbation J45.41 [facility] [address] [facility] [id number] [address] [place] [address] January, Tachycardia R00.0 ; Moderate persistent asthma with acute exacerbation J45.41 ; Gastroesophageal reflux disease, esophagitis presence not specified K21.9 ; Hyperlipidemia, unspecified hyperlipidemia E78.5 and Chronic pain syndrome G89.4 [facility] [address] [facility] [id number] [address] [place] [phone] Dec, Medicare annual wellness vis it, initial [...] Z23 and Chronic pain syndrome G89.4 [facility] [address] [place] [id number] [address] [place] [phone] 24 Dec, 2017 Chronic pain syndrome G89.4 [facility] [address] [place] [id number] [address] [place] [phone] Dec, [place] [address] [address] Nov, [place] [address] [address] Nov, Chronic pain syndrome G89.4 [place] [address] [place] [id number] [address] [place] [address] Oct, Chronic pain syndrome G89.4 [place] [address] [address] 08 Oct, 2017 Chronic kidney disease, stag e 1 N18.1 [place] [address] [place] [id number] [place] [address] 07 Oct, 2017 Chronic prescription opiate use Z79.899 ; Cough R05 ; Asthma exacerbation J45.901 ; Elevated liver enzymes R74.8 ; Rheumatoid arthritis involving multiple sites with positive rheumatoid factor M05.89 and Chronic pain syndrome G89.4 [facility] [address] [place] [id number] [address] [place] [address] Sep, Chronic pain syndrome G89.4 [facility] [address] [place] [id number] [address] [place] [phone] Sep, [facility] [address] [place] [id number] [address] [place] [phone] Aug, Acute bronchitis, unspecifie d organism J20.9 [facility] [address] [facility] [id number] [address] [place] [phone] Aug, Chronic pain syndrome G89.4 [facility] [address] [facility] [id number] [address] [place] [id number] Jul, Chronic pain syndrome G89.4 [facility] [address] [place] [id number] [address] [place] [address] Jun, Chronic pain syndrome G89.4 [facility] [address] [place] [id number] [address] [place] [address] May, Rheumatoid arthritis involvi ng multiple sites with positive rheumatoid factor M05.89 [place] [address] [place] [id number] [address] [place] [address] May, Gastroesophageal reflux dise ase, esophagitis presence not specified K21.9 and Chronic pain syndrome G89.4 [place] [address] [place] [id number] [address] [place] [address] May, [place] [address] [place] [id number] [place] [address] May, Chronic kidney disease, stag e 1 N18.1 and Esophageal candidiasis B37.81 [place] [address] [place] [id number] [address] [place] [address] May, Chronic kidney disease, stag e 1 N18.1 [place] [address] [place] [id number] [address] [place] [phone] 05 May, 2017 Cough R05 ; Fever, unspecifi ed fever cause R50.9 ; Rheumatoid arthritis involving multiple sites with positive rheumatoid factor M05.89 and Chronic prescription opiate use Z79.899 [facility] [address] [facility] [id number] [address] [place] [phone] Apr, [place] [address] [facility] [id number] [address] [place] [address] Apr, Cough R05 [facility] [address] [id number] [address] [place] [address] Apr, Asthma exacerbation J45.901 [facility] [address] [id number] [address] [place] [phone] Apr, [facility] [address] [facility] [id number] [address] [place] [address] Apr, Generalized anxiety disorder F41.1 and Severe episode of recurrent major depressive disorder, without psychotic features F33.2 [facility] [address] [id number] [address] [place] [phone] Mar, [facility] [address] [id number] [address] [place] [address] Feb, Chronic pain syndrome G89.4 [place] [address] [facility] [id number] [address] [place] [address] Feb, Acute non-recurrent maxillar y sinusitis J01.00 [facility] [address] [id number] [address] [place] [phone] Feb, Acute non-recurrent frontal sinusitis J01.10 [place] [address] [facility] [id number] [address] [place] [address] Feb, Chronic pain syndrome G89.4 [facility] [address] [facility] [id number] [address] [place] [address] January, Acute cystitis with hematuri a N30.01 [facility] [address] [facility] [id number] [address] [place] [address] January, Acute cystitis with hematuri a N30.01 ; Dysuria R30.0 and Moderate persistent asthma with acute exacerbation J45.41 [facility] [address] [facility] [id number] [address] [place] [address] January, [facility] [address] [facility] [id number] [address] [place] [address] January, Chronic pain syndrome G89.4 [place] [address] [facility] [id number] [address] [place] [address] January, Asthma exacerbation J45.901 [place] [address] [facility] [id number] [address] [place] [address] January, Asthma exacerbation J45.901 [place] [address] [facility] [id number] [address] [place] [address] Dec, Cough R05 ; Numbness in both hands R20.0 ; Ground glass opacity present on imaging of lung R91.8 ; Hypoxia R09.02 and Asthma exacerbation J45.901 [place] [address] [facility] [id number] [address] [place] [address] Dec, Chronic pain syndrome G89.4 [place] [address] [place] [id number] [address] [place] [address] Nov, Chronic prescription opiate use Z79.899 ; Rheumatoid arthritis involving multiple sites with positive rheumatoid factor M05.89 ; Moderate persistent asthma with acute exacerbation J45.41 ; Pneumonia of right lower lobe due to infectious organism J18.1 ; Chronic pain syndrome G89.4 ; Gastroesophageal reflux disease, esophagitis presence not specified K21.9 and Hyperlipidemia, unspecified hyperlipidemia E78.5 [place] [address] [facility] [id number] [address] [place] [address] Nov, Rheumatoid arthritis involvi ng multiple sites with positive rheumatoid factor M05.89 [place] [address] [facility] [id number] [address] [place] [address] Oct, [place] [address] [facility] [id number] [address] [place] [address] Oct, Essential hypertension I10 [place] [address] [facility] [id number] [address] [place] [address] Sep, Hypoxia R09.02 and Ground gl ass opacity present on imaging of lung R91.8 [place] [address] [facility] [id number] [address] [place] [address] Sep, Moderate persistent asthma w ith acute exacerbation J45.41 [facility] [address] [place] [id number] [place] [id number] Sep, [facility] [address] [facility] [id number] [address] [place] [address] Sep, Chronic constipation K59.00 and Moderate persistent asthma with acute exacerbation J45.41 [facility] [address] [facility] [id number] [address] [place] [address] Sep, Moderate persistent asthma w ith acute exacerbation J45.41 [facility] [address] [id number] [address] [place] [address] Aug, [facility] [address] [facility] [id number] [address] [place] [phone] Aug, [facility] [address] [facility] [id number] [address] [place] [phone] Aug, [facility] [address] [facility] [id number] [address] [place] [address] Aug, Rheumatoid arthritis involvi ng multiple sites with positive rheumatoid factor M05.89 ; Essential hypertension I10 ; Hyperlipidemia, unspecified hyperlipidemia E78.5 ; Chronic constipation K59.00 and Moderate persistent asthma with acute exacerbation J45.41 [facility] [address] [facility] [id number] [address] [place] [phone] Aug, Bronchitis J40 [facility] [address] [facility] [id number] [address] [place] [address] Aug, Rheumatoid arthritis involvi ng multiple sites with positive rheumatoid factor M05.89 [facility] [address] [facility] [id number] [address] [place] [address] Aug, Pharyngitis, unspecified pablito ology J02.9 and Acute nasopharyngitis J00 [facility] [address] [facility] [id number] [address] [place] [phone] Aug, [facility] [address] [facility] [id number] [address] [place] [address] Jul, [facility] [address] [facility] [id number] [address] [place] [address] Jul, Rheumatoid arthritis involvi ng multiple sites with positive rheumatoid factor M05.89 ; Essential hypertension I10 ; Hyperlipidemia, unspecified hyperlipidemia E78.5 ; Rash R21 ; Mild persistent asthma with acute exacerbation J45.31 ; Hematuria R31.9 ; Osteoporosis M81.0 and Gastroesophageal reflux disease, esophagitis presence not specified K21.9 [facility] [address] [place] [id number] [place] [phone] Jun, [facility] [address] [place] [id number] [place] [phone] Jun, Dysuria R30.0 [facility] [address] [place] [id number] [address] [place] [id number] Jun, Acute non-recurrent maxillar y sinusitis J01.00 and Dysuria R30.0 [facility] [address] [place] [id number] [address] [place] [phone] May, [facility] [address] [place] [id number] [place] [address] May, [facility] [address] [place] [id number] [place] [phone] Apr, Chronic prescription opiate use Z79.899 and Rheumatoid arthritis involving multiple sites with positive rheumatoid factor M05.89 [facility] [address] [place] [id number] [address] [place] [phone] Mar, [facility] [address] [place] [id number] [address] [place] [phone] Feb, Dizziness of unknown cause R 42 and Other chronic pain G89.29 [facility] [address] [place] [id number] [address] [place] [phone] Feb, [facility] [address] [place] [id number] [place] [address] Feb, Shortness of breath R06.02 [facility] [address] [facility] [id number] [address] [place] [address] January, [facility] [address] [facility] [id number] [address] [place] [address] January, Rheumatoid arthritis involvi ng multiple sites with positive rheumatoid factor M05.89 ; Chronic prescription opiate use Z79.899 ; Hyperlipidemia, unspecified hyperlipidemia E78.5 ; Cough R05 ; Exposure to pneumonia Z20.828 ; Diarrhea, unspecified type R19.7 ; Weight loss R63.4 ; Lumbago with sciatica, right side M54.41 and Lumbago with sciatica, left side M54.42 [facility] [address] [facility] [id number] [address] [place] [phone] Dec, [facility] [address] [facility] [id number] [address] [place] [phone] Dec, Bronchitis J40 [facility] [address] [facility] [id number] [address] [place] [address] Nov, [facility] [address] [facility] [id number] [address] [place] [phone] Nov, [facility] [address] [facility] [id number] [address] [place] [address] Nov, [facility] [address] [facility] [id number] [address] [place] [address] Nov, Bloody diarrhea R19.7 ; [place] n wall thickening K63.9 ; Shortness of breath R06.02 and Bladder wall thickening N32.89 [facility] [address] [id number] [address] [place] [id number] Oct, Dental examination Z01.20 [facility] [address] [facility] [id number] [address] [place] [phone] Oct, [facility] [address] [facility] [id number] [address] [place] [address] Oct, Toothache K08.8 [facility] [address] [id number] [address] [place] [address] [id number] Oct, 2015 Dental examination Z01.20 [facility] [address] [facility] [id number] [address] [place] [phone] 02 Oct, 2015 [facility] [address] [facility] [id number] [address] [place] [address] 18 Sep, 2015 [facility] [address] [facility] [id number] [address] [place] [address] 13 Sep, 2015 Burning with urination R30.0 [place] [address] [facility] [id number] [address] [place] [address] Sep, Hematuria R31.9 ; Rheumatoid arthritis involving multiple sites with positive rheumatoid factor M05.89 and Rheumatoid arthritis flare M06.9 [place] [address] [place] [id number] [address] [place] [address] Aug, Hyperlipidemia, unspecified hyperlipidemia E78.5 and Hematuria R31.9 [place] [address] [facility] [id number] [address] [place] [address] Aug, Hematuria R31.9 ; Chronic ki dney disease, stage 1 N18.1 and Hyperlipidemia, unspecified hyperlipidemia E78.5 [place] [address] [facility] [id number] [address] [place] [address] Aug, Rheumatoid arthritis involvi ng multiple sites with positive rheumatoid factor M05.89 ; Asthma exacerbation J45.901 ; Hematuria R31.9 ; Hyperlipidemia, unspecified hyperlipidemia E78.5 and Chronic kidney disease, stage 1 N18.1 [facility] [address] [facility] [id number] [address] [place] [phone] Aug, [facility] [address] [facility] [id number] [address] [place] [phone] Jul, [facility] [address] [facility] [id number] [address] [place] [id number] Jul, Lumbosacral radiculopathy M5 4.17 [facility] [address] [id number] [address] [place] [address] Jul, [facility] [address] [id number] [address] [place] [address] Jun, Rheumatoid arthritis involvi ng multiple sites with positive rheumatoid factor M05.89 ; Hyperlipidemia, unspecified hyperlipidemia E78.5 ; Lumbosacral radiculopathy M54.17 ; Carpal tunnel syndrome, right upper limb G56.01 and Carpal tunnel syndrome, left upper limb G56.02 [facility] [address] [id number] [address] [place] [phone] Jun, [facility] [address] [id number] [address] [place] [address] May, Lumbar radicular pain 724.4 and Dysuria 788.1 [facility] [address] [id number] [address] [place] [phone] May, Rheumatoid arthritis 714.0 ; Lumbar radicular pain 724.4 ; Burn 949.0 and Thoracic back pain 724.1 [facility] [address] [id number] [address] [place] [phone] May, [facility] [address] [id number] [address] [place] [address] May, [facility] [address] [id number] [address] [place] [phone] Apr, [facility] [address] [id number] [address] [place] [phone] Mar, Hyperlipidemia 272.4 [facility] [address] [id number] [address] [place] [phone] Mar, [facility] [address] [id number] [address] [place] [phone] Mar, [facility] [address] [id number] [address] [place] [phone] Mar, Diarrhea 787.91 ; Chronic ki dney disease, unspecified 585.9 ; Hyperlipidemia 272.4 and Asthma 493.90 [facility] [address] [id number] [address] [place] [phone] Mar, [facility] [address] [facility] [id number] [address] [place] [phone] Mar, Gastroenteritis 558.9 [facility] [address] [id number] [address] [place] [phone] Feb, [facility] [address] [id number] [address] [place] [phone] January, [facility] [address] [id number] [address] [place] [phone] January, [facility] [address] [id number] [address] [place] [phone] Dec, [facility] [address] [id number] [address] [place] [phone] Dec, [facility] [address] [id number] [address] [place] [phone] Nov, [facility] [address] [id number] [address] [place] [id number] Nov, [facility] [address] [id number] [address] [place] [id number] Nov, [facility] [address] [id number] [address] [place] [id number] Nov, [facility] [address] [id number] [address] [place] [phone] Nov, [facility] [address] [id number] [address] [place] [id number] Nov, [facility] [address] [id number] [address] [place] [id number] Oct, [facility] [address] [id number] [address] [place] [address], [place] [id number] 16 Oct, 2014 [facility] [place] [address] [id number] [address] [place] [address], [place] [id number] Sep, [facility] [address] [id number] [address] [place] [address], [place] [id number] Sep, [facility] [place] [address] [id number] [address] [place] [address], [place] [id number] Sep, [facility] [address] [id number] [address] [place] [address], [place] [id number] Sep, [facility] [place] [address] [id number] [address] [place] [address], [place] [id number] Sep, [facility] [place] [address] [id number] [address] [place] [address], [place] [id number] Sep, [facility] [place] [address] [id number] [address] [place] [address], [place] [address] Aug, [facility] [address] [id number] [address] [place] [address], [place] [address] Aug, [facility] [place] [address] [id number] [address] [place] [address], [place] [address] Aug, [facility] [address] [id number] [address] [place] [address], [place] [address] Aug, [facility] [place] [address] [id number] [address] [place] [address], [place] [address] Jul, [facility] [address] [id number] [address] [place] [address], [place] [address] Jul, [facility] [address] [id number] [address] [place] [address], [place] [address] Jul, [facility] [address] [id number] [address] [place] [address], [place] [address] Jul, [facility] [address] [id number] [address] [place] [address], [place] [address] Jul, [facility] [address] [id number] [address] [place] [address], [place] [address] Jul, [facility] [address] [id number] [address] [place] [address], [place] [address] Jul, [facility] [address] [id number] [address] [place] [address], [place] [address] Jul, [facility] [address] [id number] [address] [place] [address], [place] [address] Jul, [facility] [address] [id number] [address] [place] [address], [place] [address] Jun, [facility] [address] [id number] [address] [place] [address], [place] [address] Jun, [facility] [address] [id number] [address] [place] [address], [place] [address] Jun, [facility] [address] [id number] [address] [place] [address], [place] [address] 25 May, 2014 [facility] [address] [id number] [address] [place] [address], [place] [address] 25 May, 2014 [facility] [address] [id number] [address] [place] [id number] 24 May, 2014 [facility] [address] [id number] [address] [place] [id number] 24 May, 2013 [facility] [address] [id number] [address] [place] [id number] 24 May, 2013 [facility] [address] [id number] [address] [place] [address], [place] [address] 24 Sep, 2013 [facility] [address] [id number] [address] [place] [address], [place] [address] 19 May, 2013 [facility] [address] [id number] [address] [place] [address], [place] [address] 19 May, 2013 [facility] [address] [id number] [address] [place] [id number] May, [facility] [address] [id number] [address] [place] [id number] May, [facility] [address] [id number] [address] [place] [id number] May, [facility] [address] [id number] [address] [place] [id number] May, [facility] [address] [id number] [address] [place] [id number] May, [facility] [address] [id number] [address] [place] [id number] May, [facility] [address] [id number] [address] [place] [id number] May, [facility] [address] [id number] [address] [place] [id number] May, [facility] [address] [id number] [address] [place] [id number] Apr, [facility] [address] [id number] [address] [place] [id number] Apr, [facility] [address] [id number] [address] [place] [id number] Aug, [facility] [address] [id number] [address] [place] [id number] Jul, IMMUNIZATIONS No Known Immunizations SOCIAL HISTORY [...]
--- OUTSIDE RECORDS SUMMARY | 2020-02-27 15:50 | XMS REPORT ---
Author Author Beba CORBIN [facility] Address [address] [place] [address] Care Team Providers Care Wet Process Technician Name Role Phone EMERALDEDWARD JEFFERS Unavailable PROBLEMS Type Condition ICD9-CM Code HBY33-DP Code Onset Dates Condition S tatus SNOMED Code Problem Colon wall thickening K63.9 Active 205148089 Problem Mild persistent asthma without complication J45.30 Active 913330591 Problem Osteoporosis M81.0 Active 8879935 6 Problem Generalized anxiety disorder F41.1 A ctive 65121352 Problem Severe episode of recurrent major depressive disorder, without psychotic features F33.2 Active 22324086 Problem Moderate persistent asthma with acute exacerbation J45.41 Active [id number] Problem Gastroesophageal reflux disease, esophagitis pre sence not specified K21.9 Active 648053469 Problem Asthma exacerbation J45.901 Active 915277312 Problem Chronic pain syndrome G89.4 Active 268802952 Problem Chronic constipation K59.00 Active 865556591 Problem Essential hypertension I10 Active 59950139 Problem Chronic kidney disease, stage 1 N18.1 Active 870951327 Problem Hyperlipidemia, unspecified hyperlipidemia E78.5 Active 99408418 Problem Pernicious anemia D51.0 Active 84 525469 Problem Atrophy of left kidney N26.1 Active 684015914 Problem Vitamin D deficiency E55.9 Active 84685952 Problem Chronic prescription opiate use Z79.899 Active 669801051 Problem Rheumatoid arthritis involvi ng multiple sites with positive rheumatoid factor M05.89 Active 624199791 Problem Bladder wall thickening N32.89 Active [id number] ALLERGIES No Information ENCOUNTERS Encounter Location Date Diagnosis [facility] [address] [facility] [id number] [address] [place] [address] Mar, [facility] [address] [facility] [id number] [address] [place] [address] Feb, Chronic pain syndrome G89.4 [facility] [place] [facility] [address] [place] [address] Feb, Moderate persistent asthma w ith acute exacerbation J45.41 and Persistent cough for 3 weeks or longer R05 [facility] [address] [facility] [id number] [address] [place] [address] January, [place] [address] [place] [id number] [address] [place] [address] January, Moderate persistent asthma w ith acute exacerbation J45.41 [place] [address] [place] [id number] [address] [place] [address] January, Chronic pain syndrome G89.4 [place] [address] [address] January, Tachycardia R00.0 and Modera te persistent asthma with acute exacerbation J45.41 [place] [address] [address] January, Tachycardia R00.0 ; Moderate persistent asthma with acute exacerbation J45.41 ; Gastroesophageal reflux disease, esophagitis presence not specified K21.9 ; Hyperlipidemia, unspecified hyperlipidemia E78.5 and Chronic pain syndrome G89.4 [place] [address] [place] [id number] [address] [place] [address] Dec, Medicare annual wellness vis it, initial [...] and Chronic pain syndrome G89.4 [place] [address] [place] [id number] [address] [place] [address] Dec, Chronic pain syndrome G89.4 [place] [address] [place] [address] [place] [address] Dec, [facility] [address] [facility] [id number] [address] [place] [address] Nov, [facility] [address] [facility] [id number] [address] [place] [address] Nov, Chronic pain syndrome G89.4 [facility] [address] [facility] [id number] [address] [place] [address] Oct, Chronic pain syndrome G89.4 [facility] [address] [facility] [id number] [address] [place] [address] Oct, Chronic kidney disease, stag e 1 N18.1 [facility] [address] [facility] [id number] [address] [place] [address] Oct, Chronic prescription opiate use Z79.899 ; Cough R05 ; Asthma exacerbation J45.901 ; Elevated liver enzymes R74.8 ; Rheumatoid arthritis involving multiple sites with positive rheumatoid factor M05.89 and Chronic pain syndrome G89.4 [facility] [address] [facility] [id number] [address] [place] [address] Sep, Chronic pain syndrome G89.4 [facility] [address] [facility] [id number] [address] [place] [address] Sep, [facility] [address] [facility] [id number] [address] [place] [address] Aug, Acute bronchitis, unspecifie d organism J20.9 [facility] [address] [facility] [id number] [address] [place] [address] Aug, Chronic pain syndrome G89.4 [facility] [address] [facility] [id number] [address] [place] [address] Jul, Chronic pain syndrome G89.4 [facility] [address] [facility] [id number] [address] [place] [address] Jun, Chronic pain syndrome G89.4 [facility] [address] [address] 29 May, 2017 Rheumatoid arthritis involvi ng multiple sites with positive rheumatoid factor M05.89 [place] [address] [address] May, Gastroesophageal reflux dise ase, esophagitis presence not specified K21.9 and Chronic pain syndrome G89.4 [place] [address] [address] May, [place] [address] [address] 12 May, 2017 Esophageal candidiasis B37.8 1 and Chronic kidney disease, stage 1 N18.1 [place] [address] [address] May, Chronic kidney disease, stag e 1 N18.1 [place] [address] [address] 05 May, 2017 Cough R05 ; Fever, unspecifi ed fever cause R50.9 ; Rheumatoid arthritis involving multiple sites with positive rheumatoid factor M05.89 and Chronic prescription opiate use Z79.899 [place] [address] [address] Apr, [place] [address] [address] Apr, Cough R05 [place] [address] [address] Apr, Asthma exacerbation J45.901 [place] [address] [address] Apr, [place] [address] [address] Apr, Generalized anxiety disorder F41.1 and Severe episode of recurrent major depressive disorder, without psychotic features F33.2 [place] [address] [place] [address] Mar, [facility] [address] [id number] [address] [place] [address] Feb, Chronic pain syndrome G89.4 [facility] [address] [id number] [address] [place] [address] Feb, Acute non-recurrent maxillar y sinusitis J01.00 [facility] [address] [id number] [address] [place] [address] Feb, Acute non-recurrent frontal sinusitis J01.10 [place] [address] [id number] [address] [place] [address] Feb, Chronic pain syndrome G89.4 [place] [address] [facility] [id number] [address] [place] [address] January, Acute cystitis with hematuri a N30.01 [place] [address] [facility] [id number] [address] [place] [address] January, Acute cystitis with hematuri a N30.01 ; Dysuria R30.0 and Moderate persistent asthma with acute exacerbation J45.41 [place] [address] [facility] [id number] [address] [place] [address] January, [place] [address] [facility] [id number] [address] [place] [address] January, Chronic pain syndrome G89.4 [place] [address] [facility] [id number] [address] [place] [address] January, Asthma exacerbation J45.901 [place] [address] [facility] [id number] [address] [place] [address] January, Asthma exacerbation J45.901 [place] [address] [facility] [id number] [address] [place] [address] Dec, Cough R05 ; Numbness in both hands R20.0 ; Ground glass opacity present on imaging of lung R91.8 ; Hypoxia R09.02 and Asthma exacerbation J45.901 [place] [address] [place] [address] Dec, Chronic pain syndrome G89.4 [place] [address] [place] [id number] [address] [place] [address] Nov, Chronic prescription opiate use Z79.899 ; Rheumatoid arthritis involving multiple sites with positive rheumatoid factor M05.89 ; Moderate persistent asthma with acute exacerbation J45.41 ; Pneumonia of right lower lobe due to infectious organism J18.1 ; Chronic pain syndrome G89.4 ; Gastroesophageal reflux disease, esophagitis presence not specified K21.9 and Hyperlipidemia, unspecified hyperlipidemia E78.5 [place] [address] [address] Nov, Rheumatoid arthritis involvi ng multiple sites with positive rheumatoid factor M05.89 [place] [address] [address] Oct, [place] [address] [address] Oct, Essential hypertension I10 [address] [address] Sep, Hypoxia R09.02 and Ground gl ass opacity present on imaging of lung R91.[address] [address] Sep, Moderate persistent asthma w ith acute exacerbation J45.41 [facility] [address] [place] [id number] [place] [id number] Sep, [place] [address] [address] Sep, Chronic constipation K59.00 and Moderate persistent asthma with acute exacerbation J45.41 [place] [address] [place] [id number] [address] [place] [address] Sep, Moderate persistent asthma w ith acute exacerbation J45.41 [place] [address] [facility] [id number] [address] [place] [address] Aug, [facility] [address] [facility] [id number] [address] [place] [address] Aug, [facility] [address] [facility] [id number] [address] [place] [address] Aug, [facility] [address] [facility] [id number] [address] [place] [address] Aug, Rheumatoid arthritis involvi ng multiple sites with positive rheumatoid factor M05.89 ; Essential hypertension I10 ; Hyperlipidemia, unspecified hyperlipidemia E78.5 ; Chronic constipation K59.00 and Moderate persistent asthma with acute exacerbation J45.41 [place] [address] [facility] [id number] [address] [place] [address] Aug, Bronchitis J40 [place] [address] [facility] [id number] [address] [place] [address] Aug, Rheumatoid arthritis involvi ng multiple sites with positive rheumatoid factor M05.89 [facility] [address] [facility] [id number] [address] [place] [address] Aug, Pharyngitis, unspecified pablito ology J02.9 and Acute nasopharyngitis J00 [facility] [address] [facility] [id number] [address] [place] [address] Aug, [facility] [address] [facility] [id number] [address] [place] [address] Jul, [facility] [address] [facility] [id number] [address] [place] [address] Jul, Rheumatoid arthritis involvi ng multiple sites with positive rheumatoid factor M05.89 ; Essential hypertension I10 ; Hyperlipidemia, unspecified hyperlipidemia E78.5 ; Rash R21 ; Mild persistent asthma with acute exacerbation J45.31 ; Hematuria R31.9 ; Osteoporosis M81.0 and Gastroesophageal reflux disease, esophagitis presence not specified K21.9 [facility] [address] [facility] [id number] [address] [place] [address] Jun, [facility] [address] [facility] [id number] [address] [place] [address] Jun, Dysuria R30.0 [facility] [address] [facility] [id number] [address] [place] [address] 05 Jun, 2016 Acute non-recurrent maxillar y sinusitis J01.00 and Dysuria R30.0 [facility] [address] [facility] [id number] [address] [place] [address] 16 May, 2016 [facility] [address] [place] [id number] [address] [place] [address] May, [facility] [address] [place] [id number] [address] [place] [address] Apr, Chronic prescription opiate use Z79.899 and Rheumatoid arthritis involving multiple sites with positive rheumatoid factor M05.89 [facility] [address] [place] [id number] [address] [place] [address] Mar, [facility] [address] [place] [id number] [address] [place] [address] Feb, Dizziness of unknown cause R 42 and Other chronic pain G89.29 [facility] [address] [place] [id number] [address] [place] [address] Feb, [facility] [address] [place] [address] Feb, Shortness of breath R06.02 [facility] [address] [place] [id number] [address] [place] [address] January, [place] [address] [address] January, Rheumatoid arthritis involvi ng multiple sites with positive rheumatoid factor M05.89 ; Chronic prescription opiate use Z79.899 ; Hyperlipidemia, unspecified hyperlipidemia E78.5 ; Cough R05 ; Exposure to pneumonia Z20.828 ; Diarrhea, unspecified type R19.7 ; Weight loss R63.4 ; Lumbago with sciatica, right side M54.41 and Lumbago with sciatica, left side M54.42 [facility] [address] [facility] [id number] [address] [place] [address] Dec, [facility] [address] [id number] [address] [place] [address] Dec, Bronchitis J40 [facility] [address] [facility] [id number] [place] [address] Nov, [facility] [address] [id number] [address] [place] [address] Nov, [facility] [address] [facility] [id number] [place] [address] Nov, [facility] [address] [facility] [id number] [address] [place] [address] Nov, Bloody diarrhea R19.7 ; [place] n wall thickening K63.9 ; Shortness of breath R06.02 and Bladder wall thickening N32.89 [facility] [address] [place] [id number] [place] [address] [id number] 15 Oct, 2015 Dental examination Z01.20 [facility] [address] [facility] [id number] [address] [place] [address] Oct, [facility] [address] [facility] [id number] [address] [place] [address] Oct, Toothache K08.8 [facility] [address] [id number] [place] [address] [id number] 11 Oct, 2015 Dental examination Z01.20 [facility] [address] [id number] [address] [place] [address] 02 Oct, 2015 [facility] [address] [facility] [id number] [address] [place] [address] Sep, [facility] [address] [facility] [id number] [address] [place] [address] Sep, Burning with urination R30.0 [facility] [address] [facility] [id number] [address] [place] [address] 12 Sep, 2015 Hematuria R31.9 ; Rheumatoid arthritis involving multiple sites with positive rheumatoid factor M05.89 and Rheumatoid arthritis flare M06.9 [facility] [address] [facility] [id number] [address] [place] [address] Aug, Hyperlipidemia, unspecified hyperlipidemia E78.5 and Hematuria R31.9 [facility] [address] [facility] [id number] [address] [place] [address] Aug, Hematuria R31.9 ; Chronic ki dney disease, stage 1 N18.1 and Hyperlipidemia, unspecified hyperlipidemia E78.5 [place] [address] [facility] [id number] [address] [place] [address] Aug, Rheumatoid arthritis involvi ng multiple sites with positive rheumatoid factor M05.89 ; Asthma exacerbation J45.901 ; Hematuria R31.9 ; Hyperlipidemia, unspecified hyperlipidemia E78.5 and Chronic kidney disease, stage 1 N18.1 [place] [address] [facility] [id number] [address] [place] [address] Aug, [place] [address] [facility] [id number] [address] [place] [address] Jul, [place] [address] [facility] [id number] [address] [place] [address] Jul, Lumbosacral radiculopathy M5 4.17 [facility] [address] [facility] [id number] [address] [place] [address] Jul, [place] [address] [facility] [id number] [address] [place] [address] Jun, Rheumatoid arthritis involvi ng multiple sites with positive rheumatoid factor M05.89 ; Hyperlipidemia, unspecified hyperlipidemia E78.5 ; Lumbosacral radiculopathy M54.17 ; Carpal tunnel syndrome, right upper limb G56.01 and Carpal tunnel syndrome, left upper limb G56.02 [place] [address] [place] [id number] [address] [place] [address] Jun, [facility] [address] [id number] [address] [place] [address] May, Lumbar radicular pain 724.4 and Dysuria 788.1 [facility] [address] [id number] [address] [place] [address] May, Rheumatoid arthritis 714.0 ; Lumbar radicular pain 724.4 ; Burn 949.0 and Thoracic back pain 724.1 [facility] [address] [id number] [address] [place] [address] May, [facility] [address] [id number] [address] [place] [address] May, [facility] [address] [id number] [address] [place] [address] Apr, [facility] [address] [id number] [address] [place] [address] Mar, Hyperlipidemia 272.4 [facility] [address] [id number] [address] [place] [address] Mar, [facility] [address] [id number] [address] [place] [address] Mar, [facility] [address] [facility] [id number] [address] [place] [address] Mar, Diarrhea 787.91 ; Chronic ki dney disease, unspecified 585.9 ; Hyperlipidemia 272.4 and Asthma 493.90 [facility] [address] [id number] [address] [place] [address] Mar, [facility] [address] [facility] [id number] [address] [place] [address] Mar, Gastroenteritis 558.9 [facility] [address] [facility] [id number] [address] [place] [address] Feb, [facility] [place] [facility] [address] [id number] [address] [place] [address], [place] [address] January, [facility] [address] [id number] [address] [place] [address], [place] [address] January, [facility] [address] [id number] [address] [place] [address], [place] [address] Dec, [facility] [address] [id number] [address] [place] [address], [place] [address] Dec, [facility] [address] [id number] [address] [place] [address], [place] [address] Nov, [facility] [address] [id number] [address] [place] [address], [place] [address] Nov, [facility] [address] [id number] [address] [place] [address], [place] [address] Nov, [facility] [address] [id number] [address] [place] [address], [place] [address] Nov, [facility] [address] [id number] [address] [place] [address], [place] [address] Nov, [facility] [address] [id number] [address] [place] [address], [place] [address] Nov, [facility] [address] [id number] [address] [place] [address], [place] [address] 16 Oct, 2014 [facility] [address] [id number] [address] [place] [address], [place] [address] Oct, [facility] [address] [id number] [address] [place] [address], [place] [address] Sep, [facility] [address] [id number] [address] [place] [address], [place] [address] Sep, [facility] [address] [id number] [address] [place] [address], [place] [address] Sep, [facility] [address] [id number] [address] [place] [address] [address] Sep, [facility] [address] [id number] [address] [place] [address], [place] [address] Sep, [facility] [address] [id number] [address] [place] [address], [place] [address] Sep, [facility] [address] [id number] [address] [place] [address], [place] [address] Aug, [facility] [place] [facility] [address] [id number] [address] [place] [address], [place] [address] Aug, [facility] [address] [id number] [address] [place] [address], [place] [address] Aug, [facility] [address] [id number] [address] [place] [address], [place] [address] Aug, [facility] [address] [id number] [address] [place] [address], [place] [address] Jul, [facility] [address] [id number] [address] [place] [address], [place] [address] Jul, [facility] [address] [id number] [address] [place] [address], [place] [address] Jul, [facility] [address] [id number] [address] [place] [address], [place] [address] Jul, [facility] [address] [id number] [address] [place] [address], [place] [address] Jul, [facility] [place] [facility] [address] [id number] [address] [place] [address], [place] [address] Jul, [facility] [place] [facility] [address] [id number] [address] [place] [address], [place] [address] Jul, [facility] [place] [facility] [address] [id number] [address] [place] [address], [place] [address] Jul, [facility] [place] [facility] [address] [id number] [address] [place] [address], [place] [address] Jul, [facility] [place] [facility] [address] [id number] [address] [place] [address], [place] [id number] 31 Jun, 2014 [facility] [address] [id number] [address] [place] [address], [place] [id number] 15 Jun, 2014 [facility] [address] [id number] [address] [place] [address], [place] [id number] 15 Jun, 2014 [facility] [address] [id number] [address] [place] [address], [place] [id number] 25 Sep, 2013 [facility] [address] [id number] [address] [place] [address], [place] [id number] 25 Sep, 2013 [facility] [address] [id number] [address] [place] [address], [place] [id number] 24 Sep, 2013 [facility] [address] [id number] [address] [place] [address], [place] [id number] 24 May, 2013 [facility] [address] [id number] [address] [place] [address], [place] [id number] 24 May, 2013 [facility] [address] [id number] [address] [place] [address], [place] [id number] 24 Sep, 2013 [facility] [address] [id number] [address] [place] [address], [place] [id number] 19 May, 2013 [facility] [address] [id number] [address] [place] [address], [place] [address] 19 Sep, 2013 [facility] [address] [id number] [address] [place] [address], [place] [id number] 11 May, 2013 [facility] [address] [id number] [address] [place] [address], [place] [id number] 11 Sep, 2013 [facility] [address] [id number] [address] [place] [address], [place] [address] 11 May, 2013 [facility] [address] [id number] [address] [place] [address], [place] [id number] 11 May, 2013 [facility] [address] [id number] [address] [place] [address], [place] [address] 10 May, 2014 [facility] [address] [id number] [address] [place] [id number] May, [facility] [address] [id number] [address] [place] [id number] May, [facility] [address] [id number] [address] [place] [id number] May, [facility] [address] [id number] [address] [place] [id number] Apr, [facility] [address] [id number] [address] [place] [id number] Apr, [facility] [address] [id number] [address] [place] [id number] Aug, [facility] [address] [id number] [address] [place] [phone] Jul, IMMUNIZATIONS No Known Immunizations SOCIAL HISTORY Never Assessed REASON FOR VISIT Controlled Medication Refill PLAN OF CARE VITAL SIGNS MEDICATIONS Medication Instructions Dosage Frequency Start Date End Date Duration S tatus OxyContin 15 mg Orally every 12 hrs 1 tablet 12h Sep, 28 days Active RESULTS No Results PROCEDURES [...]
--- OUTSIDE RECORDS SUMMARY | 2020-02-27 15:51 | XMS REPORT ---
Author Author Beba CORBIN [facility] Address [address] [place] [address] Care Team Providers Care Records Management Clerk Name Role Phone EDWARD CORBIN Unavailable PROBLEMS Type Condition ICD9-CM Code [id number] Code Onset Dates Condition S tatus SNOMED Code Problem Colon wall thickening K63.9 Active 032122424 Problem Mild persistent asthma without complication J45.30 Active 521083016 Problem Osteoporosis M81.0 Active 2888917 6 Problem Generalized anxiety disorder F41.1 A ctive 88821720 Problem Severe episode of recurrent major depressive disorder, without psychotic features F33.2 Active 06431483 Problem Moderate persistent asthma with acute exacerbation J45.41 Active [id number] Problem Gastroesophageal reflux disease, esophagitis pre sence not specified K21.9 Active 499909295 Problem Asthma exacerbation J45.901 Active 526595328 Problem Chronic pain syndrome G89.4 Active 875864031 Problem Chronic constipation K59.00 Active 720119950 Problem Essential hypertension I10 Active 06186192 Problem Chronic kidney disease, stage 1 N18.1 Active 121939935 Problem Hyperlipidemia, unspecified hyperlipidemia E78.5 Active 99514829 Problem Pernicious anemia D51.0 Active 84 073047 Problem Atrophy of left kidney N26.1 Active 645434064 Problem Vitamin D deficiency E55.9 Active 34212370 Problem Chronic prescription opiate use Z79.899 Active 941976015 Problem Rheumatoid arthritis involvi ng multiple sites with positive rheumatoid factor M05.89 Active 806204563 Problem Bladder wall thickening N32.89 Active 190839044 ALLERGIES No Known Allergies SOCIAL HISTORY No smoking Hx information available PLAN OF CARE VITAL SIGNS MEDICATIONS Medication Instructions Dosage Frequency Start Date End Date Duration S tatus Bystolic 10 mg Orally 2 times a day 1 tablet 12h 90 days Active OxyContin 15 MG Orally every 12 hrs 1 tablet 12h Jul, 28 days Active RESULTS No Results PROCEDURES No Known procedures IMMUNIZATIONS No Known Immunizations
--- OUTSIDE RECORDS SUMMARY | 2020-02-27 15:51 | XMS REPORT ---
Author Author Beba CORBIN [facility] Address [address] [place] [address] Care Team Providers Care Commissioning Editor Name Role Phone EMERALDEDWARD JEFFERS Unavailable PROBLEMS Type Condition ICD9-CM Code GQS01-KB Code Onset Dates Condition S tatus SNOMED Code Problem Bladder wall thickening N32.89 Active 350514431 Problem Gastroesophageal reflux disease, esophagitis pre sence not specified K21.9 Active 506784011 Problem Osteoporosis M81.0 Active 3750922 6 Problem Moderate persistent asthma without complication J4 5.40 Active 673422763 Problem Generalized anxiety disorder F41.1 A ctive 44143106 Problem Chronic pain syndrome G89.4 Active 124569646 Problem Moderate persistent asthma with acute exacerbation J45.41 Active [id number] Problem Severe episode of recurrent major depressive disorder, without psychotic features F33.2 Active 03380418 Problem Asthma exacerbation J45.901 Active 700504175 Problem Chronic constipation K59.00 Active 742144954 Problem Essential hypertension I10 Active 80019961 Problem Hyperlipidemia, unspecified hyperlipidemia E78.5 Active 53363617 Problem Chronic kidney disease, stage 1 N18.1 Active 649971226 Problem Rheumatoid arthritis involvi ng multiple sites with positive rheumatoid factor M05.89 Active 149635587 Problem Atrophy of left kidney N26.1 Active 474732705 Problem Vitamin D deficiency E55.9 Active 42890168 Problem Chronic prescription opiate use Z79.899 Active 954392377 Problem Pernicious anemia D51.0 Active 84 234216 Problem Colon wall thickening K63.9 Active 724344683 ALLERGIES No Information ENCOUNTERS Encounter Location Date Diagnosis [facility] [place] [address] [facility] [id number] [place] [address] Mar, Asthma exacerbation J45.901 and Sprain of right ankle, unspecified ligament, subsequent encounter S93.401D [facility] [address] [place] [id number] [address] [place] [address] 30 Feb, 2018 Injury of right ankle, initi al encounter S99.911A [facility] [place] [address] [address] Feb, Chronic pain syndrome G89.4 [facility] [place] [address] [address] 15 Feb, 2018 Chronic pain syndrome G89.4 [facility] [place] [address] [address] 15 Feb, 2018 Moderate persistent asthma w ith acute exacerbation J45.41 and Persistent cough for 3 weeks or longer R05 [place] [address] [address] January, [place] [address] [address] January, Moderate persistent asthma w ith acute exacerbation J45.41 [place] [address] [address] January, Chronic pain syndrome G89.4 [facility] [place] [address] [address] 14 Jan, 2018 Tachycardia R00.0 and Modera te persistent asthma with acute exacerbation J45.41 [place] [address] [address] January, Tachycardia R00.0 ; Moderate persistent asthma with acute exacerbation J45.41 ; Gastroesophageal reflux disease, esophagitis presence not specified K21.9 ; Hyperlipidemia, unspecified hyperlipidemia E78.5 and Chronic pain syndrome G89.4 [facility] [place] [address] [address] Dec, Medicare annual wellness vis it, initial [...] immunization Z23 and Chronic pain syndrome G89.4 [facility] [place] [address] [place] [address] Dec, Chronic pain syndrome G89.4 [place] [address] [address] Dec, [place] [address] [address] Nov, [place] [address] [address] Nov, Chronic pain syndrome G89.4 [place] [address] [address] Oct, Chronic pain syndrome G89.4 [place] [address] [place] [id number] [address] [place] [address] Oct, Chronic kidney disease, stag e 1 N18.1 [place] [address] [address] 07 Oct, 2017 Chronic prescription opiate use Z79.899 ; Cough R05 ; Asthma exacerbation J45.901 ; Elevated liver enzymes R74.8 ; Rheumatoid arthritis involving multiple sites with positive rheumatoid factor M05.89 and Chronic pain syndrome G89.4 [place] [address] [place] [id number] [address] [place] [address] Sep, Chronic pain syndrome G89.4 [place] [address] [address] Sep, [place] [address] [address] Aug, Acute bronchitis, unspecifie d organism J20.9 [place] [address] [address] Aug, Chronic pain syndrome G89.4 [facility] [place] [address] [address] Jul, Chronic pain syndrome G89.4 [facility] [place] [address] [place] [id number] [place] [address] Jun, Chronic pain syndrome G89.4 [facility] [place] [address] [address] May, Rheumatoid arthritis involvi ng multiple sites with positive rheumatoid factor M05.89 [place] [address] [address] May, Gastroesophageal reflux dise ase, esophagitis presence not specified K21.9 and Chronic pain syndrome G89.4 [place] [address] [address] May, [place] [address] [address] May, Esophageal candidiasis B37.8 1 and Chronic kidney disease, stage 1 N18.1 [place] [address] [address] 11 May, 2017 Chronic kidney disease, stag e 1 N18.1 [place] [address] [address] 05 May, 2017 Cough R05 ; Fever, unspecifi ed fever cause R50.9 ; Rheumatoid arthritis involving multiple sites with positive rheumatoid factor M05.89 and Chronic prescription opiate use Z79.899 [place] [address] [address] Apr, [place] [address] [address] Apr, Cough R05 [place] [address] [address] Apr, Asthma exacerbation J45.901 [facility] [place] [address] [facility] [id number] [address] [place] [address] Apr, [facility] [place] [address] [facility] [id number] [address] [place] [address] Apr, Generalized anxiety disorder F41.1 and Severe episode of recurrent major depressive disorder, without psychotic features F33.2 [facility] [place] [address] [place] [id number] [address] [place] [address] Mar, [facility] [place] [address] [facility] [id number] [address] [place] [address] Feb, Chronic pain syndrome G89.4 [place] [address] [place] [id number] [address] [place] [address] Feb, Acute non-recurrent maxillar y sinusitis J01.00 [place] [address] [place] [id number] [address] [place] [address] Feb, Acute non-recurrent frontal sinusitis J01.10 [place] [address] [place] [id number] [address] [place] [address] Feb, Chronic pain syndrome G89.4 [place] [address] [place] [id number] [address] [place] [address] January, Acute cystitis with hematuri a N30.01 [place] [address] [place] [id number] [address] [place] [address] January, Acute cystitis with hematuri a N30.01 ; Dysuria R30.0 and Moderate persistent asthma with acute exacerbation J45.41 [place] [address] [facility] [id number] [address] [place] [address] January, [place] [address] [place] [id number] [address] [place] [address] January, Chronic pain syndrome G89.4 [place] [address] [place] [id number] [address] [place] [address] January, Asthma exacerbation J45.901 [place] [address] [address] January, Asthma exacerbation J45.901 [place] [address] [address] Dec, Cough R05 ; Numbness in both hands R20.0 ; Ground glass opacity present on imaging of lung R91.8 ; Hypoxia R09.02 and Asthma exacerbation J45.901 [place] [address] [address] Dec, Chronic pain syndrome G89.4 [place] [address] [address] Nov, Chronic prescription opiate use Z79.899 ; Rheumatoid arthritis involving multiple sites with positive rheumatoid factor M05.89 ; Moderate persistent asthma with acute exacerbation J45.41 ; Pneumonia of right lower lobe due to infectious organism J18.1 ; Chronic pain syndrome G89.4 ; Gastroesophageal reflux disease, esophagitis presence not specified K21.9 and Hyperlipidemia, unspecified hyperlipidemia E78.5 [place] [address] [address] Nov, Rheumatoid arthritis involvi ng multiple sites with positive rheumatoid factor M05.89 [place] [address] [address] Oct, [place] [address] [place] [id number] [address] [place] [address] Oct, Essential hypertension I10 [place] [address] [place] [id number] [address] [place] [address] Sep, Hypoxia R09.02 and Ground gl ass opacity present on imaging of lung R91.8 [place] [address] [place] [id number] [address] [place] [address] Sep, Moderate persistent asthma w ith acute exacerbation J45.41 [facility] [address] [id number] Sep, [facility] [place] [address] [id number] [address] [place] [address] Sep, Chronic constipation K59.00 and Moderate persistent asthma with acute exacerbation J45.41 [facility] [place] [address] [id number] [address] [place] [address] Sep, Moderate persistent asthma w ith acute exacerbation J45.41 [facility] [place] [address] [id number] [address] [place] [address] Aug, [facility] [place] [address] [id number] [address] [place] [address] Aug, [facility] [place] [address] [facility] [id number] [address] [place] [address] Aug, [facility] [place] [address] [facility] [id number] [address] [place] [address] Aug, Rheumatoid arthritis involvi ng multiple sites with positive rheumatoid factor M05.89 ; Essential hypertension I10 ; Hyperlipidemia, unspecified hyperlipidemia E78.5 ; Chronic constipation K59.00 and Moderate persistent asthma with acute exacerbation J45.41 [facility] [place] [address] [id number] [address] [place] [address] Aug, Bronchitis J40 [facility] [place] [address] [facility] [id number] [address] [place] [address] Aug, Rheumatoid arthritis involvi ng multiple sites with positive rheumatoid factor M05.89 [facility] [place] [address] [id number] [address] [place] [address] Aug, Pharyngitis, unspecified pablito ology J02.9 and Acute nasopharyngitis J00 [facility] [place] [address] [facility] [id number] [address] [place] [address] Aug, [facility] [place] [address] [facility] [id number] [address] [place] [address] Jul, [facility], [place] [address] [facility] [address] [place] [address] Jul, Rheumatoid arthritis involvi ng multiple sites with positive rheumatoid factor M05.89 ; Essential hypertension I10 ; Hyperlipidemia, unspecified hyperlipidemia E78.5 ; Rash R21 ; Mild persistent asthma with acute exacerbation J45.31 ; Hematuria R31.9 ; Osteoporosis M81.0 and Gastroesophageal reflux disease, esophagitis presence not specified K21.9 [facility], [place] [address] [address] Jun, [facility] [place] [address] [address] Jun, Dysuria R30.0 [facility] [address] [place] [id number] [place] [address] Jun, Acute non-recurrent maxillar y sinusitis J01.00 and Dysuria R30.0 [facility] [place] [address] [address] May, [facility] [place] [address] [address] May, [place] [address] [address] Apr, Chronic prescription opiate use Z79.899 and Rheumatoid arthritis involving multiple sites with positive rheumatoid factor M05.89 [facility] [place] [address] [address] Mar, [facility] [place] [address] [address] Feb, Dizziness of unknown cause R 42 and Other chronic pain G89.29 [place] [address] [address] Feb, [place] [address] [address] Feb, Shortness of breath R06.02 [facility] [place] [address] [address] January, [facility] [place] [address] [address] January, Rheumatoid arthritis involvi ng multiple sites with positive rheumatoid factor M05.89 ; Chronic prescription opiate use Z79.899 ; Hyperlipidemia, unspecified hyperlipidemia E78.5 ; Cough R05 ; Exposure to pneumonia Z20.828 ; Diarrhea, unspecified type R19.7 ; Weight loss R63.4 ; Lumbago with sciatica, right side M54.41 and Lumbago with sciatica, left side M54.42 [facility] [place] [address] [address] Dec, [facility] [place] [address] [place] [id number] [place] [address] Dec, Bronchitis J40 [facility] [place] [address] [place] [id number] [place] [address] Nov, [facility] [place] [address] [place] [id number] [place] [address] Nov, [facility] [place] [address] [address] Nov, [facility] [place] [address] [address] Nov, Bloody diarrhea R19.7 ; [place] n wall thickening K63.9 ; Shortness of breath R06.02 and Bladder wall thickening N32.89 [facility] [address] [place] [id number] [address] [place] [id number] Oct, Dental examination Z01.20 [facility] [place] [address] [facility] [id number] [address] [place] [address] Oct, [facility] [place] [address] [place] [id number] [address] [place] [address] Oct, Toothache K08.8 [facility] [id number] [place] [id number] Oct, 2015 Dental examination Z01.20 [place] [address] [facility] [id number] [address] [place] [address] 02 Oct, 2015 [place] [address] [facility] [id number] [address] [place] [address] Sep, [place] [address] [place] [id number] [address] [place] [address] Sep, Burning with urination R30.0 [place] [address] [place] [id number] [address] [place] [address] Sep, Hematuria R31.9 ; Rheumatoid arthritis involving multiple sites with positive rheumatoid factor M05.89 and Rheumatoid arthritis flare M06.9 [place] [address] [place] [id number] [place] [address] Aug, Hyperlipidemia, unspecified hyperlipidemia E78.5 and Hematuria R31.9 [place] [address] [place] [address] Aug, Hematuria R31.9 ; Chronic ki dney disease, stage 1 N18.1 and Hyperlipidemia, unspecified hyperlipidemia E78.5 [place] [address] [place] [id number] [address] [place] [address] Aug, Rheumatoid arthritis involvi ng multiple sites with positive rheumatoid factor M05.89 ; Asthma exacerbation J45.901 ; Hematuria R31.9 ; Hyperlipidemia, unspecified hyperlipidemia E78.5 and Chronic kidney disease, stage 1 N18.1 [place] [address] [place] [id number] [address] [place] [address] Aug, [place] [address] [place] [id number] [address] [place] [address] Jul, [place] [address] [place] [id number] [address] [place] [address] Jul, Lumbosacral radiculopathy M5 4.17 [place] [address] [place] [id number] [address] [place] [address] Jul, [facility], [place] [address] [facility] [id number] [address] [place] [address] Jun, Rheumatoid arthritis involvi ng multiple sites with positive rheumatoid factor M05.89 ; Hyperlipidemia, unspecified hyperlipidemia E78.5 ; Lumbosacral radiculopathy M54.17 ; Carpal tunnel syndrome, right upper limb G56.01 and Carpal tunnel syndrome, left upper limb G56.02 [facility] [place] [address] [id number] [address] [place] [address] Jun, [facility] [place] [address] [id number] [address] [place] [address] May, Lumbar radicular pain 724.4 and Dysuria 788.1 [facility] [place] [address] [facility] [id number] [address] [place] [address] 08 May, 2015 Rheumatoid arthritis 714.0 ; Lumbar radicular pain 724.4 ; Burn 949.0 and Thoracic back pain 724.1 [facility] [place] [address] [id number] [address] [place] [address] May, [facility] [place] [address] [facility] [id number] [address] [place] [address] May, [facility] [place] [address] [facility] [id number] [address] [place] [address] Apr, [facility] [place] [address] [facility] [id number] [address] [place] [address] Mar, Hyperlipidemia 272.4 [facility] [place] [address] [facility] [id number] [address] [place] [address] Mar, [facility] [place] [address] [facility] [id number] [address] [place] [address] Mar, [facility] [place] [address] [facility] [id number] [address] [place] [address] Mar, Diarrhea 787.91 ; Chronic ki dney disease, unspecified 585.9 ; Hyperlipidemia 272.4 and Asthma 493.90 [facility] [place] [facility] [address] [id number] [address] [place] [address] Mar, [facility] [address] [id number] [address] [place] [address] Mar, Gastroenteritis 558.9 [facility] [address] [id number] [address] [place] [address] Feb, [facility] [address] [id number] [address] [place] [address] January, [facility] [address] [id number] [address] [place] [address], [place] [address] January, [facility] [address] [id number] [address] [place] [address] Dec, [facility] [address] [id number] [address] [place] [address] Dec, [facility] [address] [id number] [address] [place] [address] Nov, [facility] [address] [id number] [address] [place] [address] Nov, [facility] [address] [id number] [address] [place] [address] Nov, [facility] [address] [id number] [address] [place] [address] Nov, [facility] [address] [id number] [address] [place] [address] Nov, [facility] [address] [id number] [address] [place] [address] Nov, [facility] [address] [id number] [address] [place] [address] Oct, [facility] [address] [id number] [address] [place] [address] Oct, [facility] [address] [id number] [address] [place] [address], [place] [address] Sep, [facility] [place] [facility] [address] [id number] [address] [place] [address], [place] [address] Sep, [facility] [place] [facility] [address] [id number] [address] [place] [address], [place] [address] Sep, [facility] [place] [facility] [address] [id number] [address] [place] [address], [place] [address] Sep, [facility] [place] [facility] [address] [id number] [address] [place] [address], [place] [address] Sep, [facility] [place] [facility] [address] [id number] [address] [place] [address], [place] [address] Sep, [facility] [place] [facility] [address] [id number] [address] [place] [address], [place] [address] Aug, [facility] [place] [facility] [address] [id number] [address] [place] [address], [place] [address] Aug, [facility] [address] [id number] [address] [place] [address], [place] [address] Aug, [facility] [place] [facility] [address] [id number] [address] [place] [address], [place] [address] Aug, [facility] [address] [id number] [address] [place] [address], [place] [address] Jul, [facility] [address] [id number] [address] [place] [address], [place] [address] Jul, [facility] [address] [id number] [address] [place] [address], [place] [address] Jul, [facility] [address] [id number] [address] [place] [address], [place] [address] Jul, [facility] [address] [id number] [address] [place] [address], [place] [address] Jul, [facility] [address] [id number] [address] [place] [address], [place] [address] Jul, [facility] [address] [id number] [address] [place] [address], [place] [address] Jul, [facility] [address] [id number] [address] [place] [address], [place] [address] Jul, [facility] [address] [id number] [address] [place] [address], [place] [address] Jul, [facility] [address] [id number] [address] [place] [address], [place] [address] Jun, [facility] [address] [id number] [address] [place] [address], [place] [address] Jun, [facility] [address] [id number] [address] [place] [address], [place] [address] Jun, [facility] [address] [id number] [address] [place] [address], [place] [id number] 25 May, 2014 [facility] [address] [id number] [address] [place] [address], [place] [address] 25 May, 2013 [facility] [address] [id number] [address] [place] [address], [place] [address] 24 May, 2013 [facility] [address] [id number] [address] [place] [address], [place] [address] 24 May, 2013 [facility] [address] [id number] [address] [place] [id number] 24 May, 2013 [facility] [address] [id number] [address] [place] [address] [id number] 24 May, 2013 [facility] [address] [id number] [address] [place] [address], [place] [id number] 19 May, 2013 [facility] [address] [id number] [address] [place] [address], [place] [id number] 19 May, 2013 [facility] [address] [id number] [address] [place] [id number] 11 May, 2013 [facility] [address] [id number] [address] [place] [id number] May, [facility] [place] [address] [id number] [address] [place] [phone] May, [facility] [place] [address] [id number] [address] [place] [phone] May, [facility] [place] [address] [id number] [address] [place] [phone] May, [facility] [place] [address] [id number] [address] [place] [phone] May, [facility] [place] [address] [id number] [address] [place] [id number] May, [facility] [place] [address] [id number] [address] [place] [id number] May, [facility] [place] [address] [id number] [address] [place] [phone] Apr, [facility] [place] [address] [id number] [address] [place] [phone] Apr, [facility] [place] [address] [id number] [address] [place] [id number] Aug, [facility] [place] [address] [id number] [address] [place] [id number] Jul, IMMUNIZATIONS No Known Immunizations SOCIAL HISTORY Never Assessed REASON FOR VISIT Controlled Medication Refill PLAN OF CARE VITAL SIGNS MEDICATIONS Medication Instructions Dosage Frequency Start Date End Date Duration S tatus OxyContin 15 mg Orally every 12 hrs 1 tablet 12h Oct, 28 days Active RESULTS No Results PROCEDURES [...]
--- OUTSIDE RECORDS SUMMARY | 2020-02-27 15:51 | XMS REPORT ---
Author Author Beba CORBIN [facility] Address [address] [place] [address] Care Team Providers Care Prosthetic Assistant Name Role Phone EMERALDEDWARD JEFFERS Unavailable PROBLEMS Type Condition ICD9-CM Code NMA01-QF Code Onset Dates Condition S tatus SNOMED Code Problem Colon wall thickening K63.9 Active 180870238 Problem Mild persistent asthma without complication J45.30 Active 399481691 Problem Osteoporosis M81.0 Active 9755912 6 Problem Generalized anxiety disorder F41.1 A ctive 19333553 Problem Severe episode of recurrent major depressive disorder, without psychotic features F33.2 Active 92912614 Problem Moderate persistent asthma with acute exacerbation J45.41 Active [id number] Problem Gastroesophageal reflux disease, esophagitis pre sence not specified K21.9 Active 936359586 Problem Asthma exacerbation J45.901 Active 701808659 Problem Chronic pain syndrome G89.4 Active 404286296 Problem Chronic constipation K59.00 Active 030591047 Problem Essential hypertension I10 Active 57564140 Problem Chronic kidney disease, stage 1 N18.1 Active 926776591 Problem Hyperlipidemia, unspecified hyperlipidemia E78.5 Active 63619463 Problem Pernicious anemia D51.0 Active 84 527986 Problem Atrophy of left kidney N26.1 Active 706897096 Problem Vitamin D deficiency E55.9 Active 11796410 Problem Chronic prescription opiate use Z79.899 Active 935374249 Problem Rheumatoid arthritis involvi ng multiple sites with positive rheumatoid factor M05.89 Active 773704843 Problem Bladder wall thickening N32.89 Active 427848918 ALLERGIES No Information ENCOUNTERS Encounter Location Date Diagnosis [facility] [address] [facility] [id number] [address] [place] [address] Dec, [facility] [address] [facility] [id number] [address] [place] [address] Nov, [facility] [address] [facility] [id number] [address] [place] [address] Nov, Chronic pain syndrome G89.4 [facility] [address] [facility] [id number] [address] [place] [address] Oct, Chronic pain syndrome G89.4 [facility] [address] [facility] [id number] [address] [place] [address] Oct, Chronic kidney disease, stag e 1 N18.1 [facility] [address] [facility] [id number] [address] [place] [address] Oct, Chronic prescription opiate use Z79.899 ; Cough R05 ; Asthma exacerbation J45.901 ; Elevated liver enzymes R74.8 ; Rheumatoid arthritis involving multiple sites with positive rheumatoid factor M05.89 and Chronic pain syndrome G89.4 [facility] [address] [place] [id number] [address] [place] [address] Sep, Chronic pain syndrome G89.4 [facility] [address] [facility] [id number] [address] [place] [address] Sep, [facility] [address] [place] [id number] [address] [place] [address] Aug, Acute bronchitis, unspecifie d organism J20.9 [facility] [address] [place] [id number] [address] [place] [address] Aug, Chronic pain syndrome G89.4 [facility] [address] [facility] [id number] [address] [place] [address] Jul, Chronic pain syndrome G89.4 [facility] [address] [facility] [id number] [address] [place] [address] Jun, Chronic pain syndrome G89.4 [facility] [address] [facility] [id number] [address] [place] [address] May, Rheumatoid arthritis involvi ng multiple sites with positive rheumatoid factor M05.89 [facility] [address] [address] May, Gastroesophageal reflux dise ase, esophagitis presence not specified K21.9 and Chronic pain syndrome G89.4 [place] [address] [address] May, [place] [address] [address] May, Esophageal candidiasis B37.8 1 and Chronic kidney disease, stage 1 N18.1 [place] [address] [address] 11 May, 2017 Chronic kidney disease, stag e 1 N18.1 [place] [address] [address] 05 May, 2017 Cough R05 ; Fever, unspecifi ed fever cause R50.9 ; Rheumatoid arthritis involving multiple sites with positive rheumatoid factor M05.89 and Chronic prescription opiate use Z79.899 [place] [address] [address] Apr, [place] [address] [address] Apr, Cough R05 [place] [address] [address] Apr, Asthma exacerbation J45.901 [place] [address] [address] Apr, [place] [address] [address] Apr, Generalized anxiety disorder F41.1 and Severe episode of recurrent major depressive disorder, without psychotic features F33.2 [place] [address] [address] Mar, [place] [address] [address] Feb, Chronic pain syndrome G89.4 [facility] [address] [facility] [id number] [address] [place] [address] Feb, Acute non-recurrent maxillar y sinusitis J01.00 [facility] [address] [facility] [id number] [address] [place] [address] Feb, Acute non-recurrent frontal sinusitis J01.10 [facility] [address] [facility] [id number] [address] [place] [address] Feb, Chronic pain syndrome G89.4 [facility] [address] [facility] [id number] [address] [place] [address] January, Acute cystitis with hematuri a N30.01 [place] [address] [facility] [id number] [address] [place] [address] January, Acute cystitis with hematuri a N30.01 ; Dysuria R30.0 and Moderate persistent asthma with acute exacerbation J45.41 [place] [address] [facility] [id number] [address] [place] [address] January, [place] [address] [facility] [id number] [address] [place] [address] January, Chronic pain syndrome G89.4 [place] [address] [facility] [id number] [address] [place] [address] January, Asthma exacerbation J45.901 [place] [address] [place] [id number] [address] [place] [address] January, Asthma exacerbation J45.901 [place] [address] [facility] [id number] [address] [place] [address] Dec, Cough R05 ; Numbness in both hands R20.0 ; Ground glass opacity present on imaging of lung R91.8 ; Hypoxia R09.02 and Asthma exacerbation J45.901 [place] [id number] [facility] [id number] [address] [place] [address] Dec, Chronic pain syndrome G89.4 [place] [address] [address] Nov, Chronic prescription opiate use Z79.899 ; Rheumatoid arthritis involving multiple sites with positive rheumatoid factor M05.89 ; Moderate persistent asthma with acute exacerbation J45.41 ; Pneumonia of right lower lobe due to infectious organism J18.1 ; Chronic pain syndrome G89.4 ; Gastroesophageal reflux disease, esophagitis presence not specified K21.9 and Hyperlipidemia, unspecified hyperlipidemia E78.[address] [address] Nov, Rheumatoid arthritis involvi ng multiple sites with positive rheumatoid factor M05.[address] [address] Oct, [address] [address] Oct, Essential hypertension I10 [address] [address] Sep, Hypoxia R09.02 and Ground gl ass opacity present on imaging of lung R91.[address] [address] Sep, Moderate persistent asthma w ith acute exacerbation J45.41 [facility] [address] [place] [id number] [place] [id number] Sep, [place] [address] [address] Sep, Chronic constipation K59.00 and Moderate persistent asthma with acute exacerbation J45.[address] [address] Sep, Moderate persistent asthma w ith acute exacerbation J45.41 [place] [address] [place] [id number] [address] [place] [address] Aug, [address] [address] Aug, [facility] [address] [facility] [id number] [address] [place] [address] Aug, [facility] [address] [facility] [id number] [address] [place] [address] Aug, Rheumatoid arthritis involvi ng multiple sites with positive rheumatoid factor M05.89 ; Essential hypertension I10 ; Hyperlipidemia, unspecified hyperlipidemia E78.5 ; Chronic constipation K59.00 and Moderate persistent asthma with acute exacerbation J45.41 [facility] [address] [facility] [id number] [address] [place] [address] Aug, Bronchitis J40 [facility] [address] [facility] [id number] [address] [place] [address] Aug, Rheumatoid arthritis involvi ng multiple sites with positive rheumatoid factor M05.89 [place] [address] [address] Aug, Pharyngitis, unspecified pablito ology J02.9 and Acute nasopharyngitis J00 [facility] [address] [place] [id number] [address] [place] [address] Aug, [facility] [address] [place] [id number] [place] [address] Jul, [facility] [address] [place] [id number] [address] [place] [address] Jul, Rheumatoid arthritis involvi ng multiple sites with positive rheumatoid factor M05.89 ; Essential hypertension I10 ; Hyperlipidemia, unspecified hyperlipidemia E78.5 ; Rash R21 ; Mild persistent asthma with acute exacerbation J45.31 ; Hematuria R31.9 ; Osteoporosis M81.0 and Gastroesophageal reflux disease, esophagitis presence not specified K21.9 [facility] [address] [facility] [id number] [address] [place] [address] Jun, [facility] [address] [place] [id number] [address] [place] [address] Jun, Dysuria R30.0 [facility] [address] [place] [id number] [address] [place] [address] Jun, Acute non-recurrent maxillar y sinusitis J01.00 and Dysuria R30.0 [facility] [address] [address] 16 May, 2016 [facility] [address] [address] 15 May, 2016 [place] [address] [address] Apr, Chronic prescription opiate use Z79.899 and Rheumatoid arthritis involving multiple sites with positive rheumatoid factor M05.89 [place] [address] [address] Mar, [place] [address] [address] Feb, Dizziness of unknown cause R 42 and Other chronic pain G89.29 [place] [address] [address] Feb, [place] [address] [address] Feb, Shortness of breath R06.02 [place] [address] [address] January, [place] [address] [address] January, Rheumatoid arthritis involvi ng multiple sites with positive rheumatoid factor M05.89 ; Chronic prescription opiate use Z79.899 ; Hyperlipidemia, unspecified hyperlipidemia E78.5 ; Cough R05 ; Exposure to pneumonia Z20.828 ; Diarrhea, unspecified type R19.7 ; Weight loss R63.4 ; Lumbago with sciatica, right side M54.41 and Lumbago with sciatica, left side M54.42 [place] [address] [address] Dec, [facility] [address] [id number] [address] [place] [address] Dec, Bronchitis J40 [facility] [address] [facility] [id number] [address] [place] [address] Nov, [facility] [address] [facility] [id number] [address] [place] [address] Nov, [facility] [address] [facility] [id number] [address] [place] [address] Nov, [facility] [address] [facility] [id number] [address] [place] [address] Nov, Bloody diarrhea R19.7 ; [place] n wall thickening K63.9 ; Shortness of breath R06.02 and Bladder wall thickening N32.89 [facility] [id number] [place] [id number] 15 Oct, 2015 Dental examination Z01.20 [facility] [address] [facility] [id number] [address] [place] [address] 15 Oct, 2015 [facility] [address] [facility] [id number] [address] [place] [address] Oct, Toothache K08.8 [facility] [address] [id number] [address] [place] [address] [id number] 11 Oct, 2015 Dental examination Z01.20 [facility] [address] [facility] [id number] [address] [place] [address] 02 Oct, 2015 [facility] [address] [facility] [id number] [address] [place] [address] Sep, [facility] [address] [facility] [id number] [address] [place] [address] Sep, Burning with urination R30.0 [facility] [address] [facility] [id number] [address] [place] [address] Sep, Hematuria R31.9 ; Rheumatoid arthritis involving multiple sites with positive rheumatoid factor M05.89 and Rheumatoid arthritis flare M06.9 [facility] [address] [id number] [address] [place] [address] Aug, Hyperlipidemia, unspecified hyperlipidemia E78.5 and Hematuria R31.9 [facility] [address] [id number] [address] [place] [address] Aug, Hematuria R31.9 ; Chronic ki dney disease, stage 1 N18.1 and Hyperlipidemia, unspecified hyperlipidemia E78.5 [place] [address] [id number] [address] [place] [address] Aug, Rheumatoid arthritis involvi ng multiple sites with positive rheumatoid factor M05.89 ; Asthma exacerbation J45.901 ; Hematuria R31.9 ; Hyperlipidemia, unspecified hyperlipidemia E78.5 and Chronic kidney disease, stage 1 N18.1 [place] [address] [id number] [address] [place] [address] Aug, [place] [address] [id number] [address] [place] [address] Jul, [place] [address] [id number] [address] [place] [address] Jul, Lumbosacral radiculopathy M5 4.17 [place] [id number] [id number] [address] [place] [address] Jul, [place] [address] [id number] [address] [place] [address] Jun, Rheumatoid arthritis involvi ng multiple sites with positive rheumatoid factor M05.89 ; Hyperlipidemia, unspecified hyperlipidemia E78.5 ; Lumbosacral radiculopathy M54.17 ; Carpal tunnel syndrome, right upper limb G56.01 and Carpal tunnel syndrome, left upper limb G56.02 [facility] [address] [id number] [address] [place] [address] 15 Jun, 2015 [place] [address] [id number] [address] [place] [address] May, Lumbar radicular pain 724.4 and Dysuria 788.1 [facility] [address] [id number] [address] [place] [address] May, Rheumatoid arthritis 714.0 ; Lumbar radicular pain 724.4 ; Burn 949.0 and Thoracic back pain 724.1 [facility] [address] [id number] [address] [place] [address] May, [facility] [address] [id number] [address] [place] [address] May, [facility] [address] [id number] [address] [place] [address] Apr, [facility] [address] [facility] [id number] [address] [place] [address] Mar, Hyperlipidemia 272.4 [facility] [address] [place] [id number] [address] [place] [address] Mar, [facility] [address] [facility] [id number] [address] [place] [address] Mar, [facility] [address] [place] [id number] [address] [place] [address] Mar, Diarrhea 787.91 ; Chronic ki dney disease, unspecified 585.9 ; Hyperlipidemia 272.4 and Asthma 493.90 [facility] [address] [facility] [id number] [address] [place] [address] Mar, [facility] [address] [facility] [id number] [address] [place] [address] Mar, Gastroenteritis 558.9 [facility] [address] [facility] [id number] [address] [place] [address] Feb, [facility] [address] [facility] [id number] [address] [place] [address] January, [facility] [address] [place] [id number] [address] [place] [address] January, [facility] [address] [id number] [address] [place] [address], [place] [address] 14 Dec, 2014 [facility] [address] [id number] [address] [place] [address], [place] [address] Dec, [facility] [address] [id number] [address] [place] [address], [place] [address] Nov, [facility] [place] [facility] [address] [id number] [address] [place] [address], [place] [address] Nov, [facility] [address] [id number] [address] [place] [address], [place] [address] Nov, [facility] [address] [id number] [address] [place] [address], [place] [address] Nov, [facility] [address] [id number] [address] [place] [address], [place] [address] Nov, [facility] [address] [id number] [address] [place] [address], [place] [address] Nov, [facility] [address] [id number] [address] [place] [address], [place] [address] Oct, [facility] [address] [id number] [address] [place] [address], [place] [address] Oct, [facility] [address] [id number] [address] [place] [address], [place] [address] Sep, [facility] [place] [facility] [address] [id number] [address] [place] [address], [place] [address] Sep, [facility] [place] [facility] [address] [id number] [address] [place] [address], [place] [address] Sep, [facility] [place] [facility] [address] [id number] [address] [place] [address], [place] [address] Sep, [facility] [place] [facility] [address] [id number] [address] [place] [address], [place] [address] Sep, [facility] [place] [facility] [address] [id number] [address] [place] [address] [place] [address] Sep, [facility] [address] [id number] [address] [place] [address], [place] [address] Aug, [facility] [place] [facility] [address] [id number] [address] [place] [address], [place] [address] Aug, [facility] [address] [id number] [address] [place] [address], [place] [address] Aug, [facility] [place] [facility] [address] [id number] [address] [place] [address], [place] [address] Aug, [facility] [address] [id number] [address] [place] [address], [place] [address] Jul, [facility] [address] [id number] [address] [place] [address], [place] [address] Jul, [facility] [address] [id number] [address] [place] [address], [place] [address] Jul, [facility] [address] [id number] [address] [place] [address], [place] [address] Jul, [facility] [address] [id number] [address] [place] [address], [place] [address] Jul, [facility] [address] [id number] [address] [place] [address], [place] [address] Jul, [facility] [address] [id number] [address] [place] [address], [place] [address] Jul, [facility] [address] [id number] [address] [place] [address], [place] [address] Jul, [facility] [address] [id number] [address] [place] [address], [place] [address] Jul, [facility] [address] [id number] [address] [place] [address], [place] [address] Jun, [facility] [address] [id number] [address] [place] [address], [place] [address] 15 Jun, 2014 [facility] [address] [id number] [facility] [place] [address] 15 Jun, 2013 [facility] [address] [id number] [facility] [place] [address] 25 Sep, 2013 [facility] [address] [id number] [address] [place] [address], [place] [address] 25 Sep, 2013 [facility] [address] [id number] [address] [place] [address], [place] [address] 24 Sep, 2013 [facility] [address] [id number] [address] [place] [address], [place] [address] 24 Sep, 2013 [facility] [address] [id number] [address] [place] [address], [place] [address] 24 May, 2013 [facility] [address] [id number] [address] [place] [address], [place] [address] 24 May, 2013 [facility] [address] [id number] [address] [place] [address], [place] [address] 19 May, 2013 [facility] [address] [id number] [address] [place] [address], [place] [address] 19 May, 2013 [facility] [place] [facility] [address] [id number] [address] [place] [address], [place] [address] 11 May, 2013 [facility] [place] [facility] [address] [id number] [address] [place] [address], [place] [address] 11 May, 2013 [facility] [place] [facility] [address] [id number] [address] [place] [address], [place] [address] 11 May, 2013 [facility] [place] [facility] [address] [id number] [address] [place] [address], [place] [address] 11 Sep, 2013 [facility] [place] [facility] [address] [id number] [address] [place] [address], [place] [address] 10 Sep, 2013 [facility] [place] [facility] [address] [id number] [address] [place] [address], [place] [address] 09 Sep, 2013 [facility] [place] [facility] [address] [id number] [address] [place] [address], [place] [address] May, [facility] [address] [facility] [id number] [address] [place] [id number] May, [facility] [address] [facility] [id number] [address] [place] [id number] Apr, [facility] [address] [facility] [id number] [address] [place] [id number] Apr, [facility] [address] [facility] [id number] [address] [place] [id number] Aug, [facility] [address] [facility] [id number] [address] [place] [id number] Jul, IMMUNIZATIONS No Known Immunizations SOCIAL HISTORY Never Assessed REASON FOR VISIT Controlled Refill Request PLAN OF CARE VITAL SIGNS [...]
--- OUTSIDE RECORDS SUMMARY | 2020-02-27 15:51 | XMS REPORT ---
Author Author Bbea CORBIN [facility] Address [address] [place] [address] Care Team Providers Care Pile Driver Operator Helper Name Role Phone EMERALDYOGESH JEFFERSY Unavailable PROBLEMS Type Condition ICD9-CM Code [id number] Code Onset Dates Condition S tatus SNOMED Code Problem Colon wall thickening K63.9 Active 966772919 Problem Mild persistent asthma without complication J45.30 Active 004183862 Problem Osteoporosis M81.0 Active 8556462 6 Problem Generalized anxiety disorder F41.1 A ctive 58055384 Problem Severe episode of recurrent major depressive disorder, without psychotic features F33.2 Active 07993417 Problem Moderate persistent asthma with acute exacerbation J45.41 Active 966711002490612 Problem Gastroesophageal reflux disease, esophagitis pre sence not specified K21.9 Active 427987751 Problem Asthma exacerbation J45.901 Active 440260320 Problem Chronic pain syndrome G89.4 Active 541590431 Problem Chronic constipation K59.00 Active 697062223 Problem Essential hypertension I10 Active 84930262 Problem Chronic kidney disease, stage 1 N18.1 Active 307968755 Problem Hyperlipidemia, unspecified hyperlipidemia E78.5 Active 50232824 Problem Pernicious anemia D51.0 Active 84 809487 Problem Atrophy of left kidney N26.1 Active 175805370 Problem Vitamin D deficiency E55.9 Active 17989442 Problem Chronic prescription opiate use Z79.899 Active 695907128 Problem Rheumatoid arthritis involvi ng multiple sites with positive rheumatoid factor M05.89 Active 202775195 Problem Bladder wall thickening N32.89 Active 220940611 ALLERGIES Substance Reaction Event Type Date Status Penicillin V Potassium Cannot tolerate Oral PCN. St ates she can tolerate injections Drug Allergy Sep, Active Orencia Unknown Drug Allergy Sep, Active Cipro Unknown Drug Allergy Sep, Active Codeine Unknown Drug Allergy Sep, Active Ivp Dye anaphylaxis Non Drug Allergy Sep, Active SOCIAL HISTORY No smoking Hx information available PLAN OF CARE Activity Details Follow Up Wednesday Reason:Hypoxia VITAL SIGNS Height 66 in 2016-10-01 Weight 168.0 lbs 2016-10-01 Temperature 98.5 degrees Fahrenheit 2016-10-01 Heart Rate 98 bpm 2016-10-01 Respiratory Rate 22 2016-10-01 Oximetry 93 % 2016-10-01 BMI 27.11 kg/m2 2016-10-01 Blood pressure systolic 122 mmHg 2016-10-01 Blood pressure diastolic 70 mmHg 2016-10-01 MEDICATIONS Medication Instructions Dosage Frequency Start Date End Date Duration S tatus Linzess 290 MCG Orally Once a day 1 capsule 24h Active Omeprazole 40 mg Orally Once a day 1 capsule 24h Jul, 90 days Active Cefpodoxime Proxetil 200 MG Orally every 12 hrs 1 tablet 12h Active Tylenol Arthritis Pain by oral route 2 times a day 2tablets 12h Active Ibuprofen 200 MG Orally every 4-6 hours as needed 2 tablets Active Albuterol Sulfate (2.5 MG/3ML) 0.083% Inhalation every 4 hrs 3 ml a s needed 4h Active Tessalon Perles 100 MG Orally Three times a day 1 capsule as needed 8h Aug, Active Ipratropium-Albuterol 0.5-2.5 (3) MG/3ML Inhalation every 6 hrs 3 ml as needed 6h Active Doxycycline Hyclate 100 MG Orally every 12 hrs 1 capsule 12h Sep, Sep, Active PredniSONE 10 mg Orally 6 tabs daily then decrease by 1 t ab every other day as directed Sep, Sep, Active Simvastatin 40 mg Orally Once a day 1 tablet in the evening 24h Mar, 90 days Active Senokot S 8.6-50 MG Orally 2 times a day 2 tablets 12h Active Gabapentin 900 MG Orally Three times a day 1 capsule 8h May, 5 90 days Active Symbicort 160-4.5 MCG/ACT Inhalation Twice a day 2 puffs 12h Active OxyContin 15 MG Orally every 12 hrs 1 tablet 12h Jul, 28 days Active Cyclobenzaprine HCl 10 mg Orally Three times a day as needed 1 tablet Dec, 90 days Active ProAir HFA 108 (90 Base) MCG/ACT Inhalation every 4 hrs 2 puffs as needed 4h Mar, Active Docusate Sodium 100 MG Orally twice a day 1 capsule as needed 12h Active Bystolic 10 mg Orally 2 times a day 1 tablet 12h 90 days Active Dulcolax 10 MG Rectal Once a day 1 suppository as needed 24h Active RESULTS No Results PROCEDURES Procedure Date Ordered Related Diagnosis Body Site MEASURE BLOOD OXYGEN LEVEL Oct 01, 2016 [facility] VISIT ESTABLISHED PATIENT Oct 01, 2016 Office Visit, Est Pt., Level 3 Oct 01, 2016 IMMUNIZATIONS No Known Immunizations
--- OUTSIDE RECORDS SUMMARY | 2020-02-27 15:51 | XMS REPORT ---
Author Author Beba GIORDANO Organization [facility] Address [address] [place] [address] Care Team Providers Care Kersey Department Supervisor Name Role Phone ABBIE GIORDANO Unavailable PROBLEMS Type Condition ICD9-CM Code [id number] Code Onset Dates Condition S tatus SNOMED Code Problem Colon wall thickening K63.9 Active 296399126 Problem Osteoporosis M81.0 Active 7869774 6 Problem Gastroesophageal reflux disease, esophagitis pre sence not specified K21.9 Active 869536991 Problem Generalized anxiety disorder F41.1 A ctive 27533243 Problem Severe episode of recurrent major depressive disorder, without psychotic features F33.2 Active 95611964 Problem Moderate persistent asthma with acute exacerbation J45.41 Active 668095910113734 Problem Mild persistent asthma without complication J45.30 Active 678704332 Problem Asthma exacerbation J45.901 Active 891324974 Problem Chronic pain syndrome G89.4 Active 154832803 Problem Chronic constipation K59.00 Active 346891539 Problem Hyperlipidemia, unspecified hyperlipidemia E78.5 Active 15981630 Problem Atrophy of left kidney N26.1 Active 450405773 Problem Chronic kidney disease, stage 1 N18.1 Active 860827010 Problem Pernicious anemia D51.0 Active 84 618702 Problem Rheumatoid arthritis involvi ng multiple sites with positive rheumatoid factor M05.89 Active 331496667 Problem Essential hypertension I10 Active 59123677 Problem Chronic prescription opiate use Z79.899 Active 043366142 Problem Vitamin D deficiency E55.9 Active 56845371 Problem Bladder wall thickening N32.89 Active 315854089 ALLERGIES Substance Reaction Event Type Date Status Penicillin V Potassium Cannot tolerate Oral PCN. St ates she can tolerate injections Drug Allergy Aug, Active Orencia Unknown Drug Allergy Aug, Active Cipro Unknown Drug Allergy Aug, Active Codeine Unknown Drug Allergy Aug, Active Ivp Dye anaphylaxis Non Drug Allergy Aug, Active SOCIAL HISTORY No smoking Hx information available PLAN OF CARE VITAL SIGNS Height 66 in 2016-09-10 Weight 153 lbs 2016-09-10 Temperature 98.7 degrees Fahrenheit 2016-09-10 Heart Rate 97 bpm 2016-09-10 Respiratory Rate 2016-09-10 BMI 24.69 kg/m2 2016-09-10 Blood pressure systolic 116 mmHg 2016-09-10 Blood pressure diastolic 82 mmHg 2016-09-10 MEDICATIONS Medication Instructions Dosage Frequency Start Date End Date Duration S tatus Bystolic 10 mg Orally 2 times a day 1 tablet 12h 90 days Active Omeprazole 40 mg Orally Once a day 1 capsule 24h Jul, 90 days Active Cyclobenzaprine HCl 10 mg Orally Three times a day as needed 1 tablet Dec, 90 days Active Amoxicillin 500 MG Orally 3 times a day 1 capsule 8h Aug, 16 1 Sep, 2016 10 day(s) Active Symbicort 160-4.5 MCG/ACT Inhalation Twice a day 2 puffs 12h Active Tylenol 500 MG/15ML Orally 3 times a day 3 8h Active OxyContin 15 MG Orally every 12 hrs 1 tablet 12h Jul, 28 days Active Simvastatin 40 MG Orally Once a day 1 tablet in the evening 24h Mar, Active Gabapentin 900 MG Orally Three times a day 1 capsule 8h May, 90 days Active PredniSONE 20 mg Orally Once a day 2 tablets 24h Aug, Aug, 05 days Active Tessalon Perles 100 MG Orally Three times a day 1 capsule as needed 8h Aug, Active RESULTS No Results PROCEDURES Procedure Date Ordered Related Diagnosis Body Site FQ VISIT ESTABLISHED PATIENT Sep 10, 2016 Office Visit, Est Pt., Level 3 Sep 10, 2016 IMMUNIZATIONS No Known Immunizations
--- OUTSIDE RECORDS SUMMARY | 2020-02-27 15:51 | XMS REPORT ---
Author Author Beba CORBIN [facility] Address [address] [place] [address] Care Team Providers Care Die Polisher Name Role Phone EMERALDSTUARTEDWARD Unavailable PROBLEMS Type Condition ICD9-CM Code [id number] Code Onset Dates Condition S tatus SNOMED Code Problem Colon wall thickening K63.9 Active 029264904 Problem Mild persistent asthma without complication J45.30 Active 887679293 Problem Osteoporosis M81.0 Active 3514230 6 Problem Generalized anxiety disorder F41.1 A ctive 43910370 Problem Severe episode of recurrent major depressive disorder, without psychotic features F33.2 Active 15269392 Problem Moderate persistent asthma with acute exacerbation J45.41 Active [id number] Problem Gastroesophageal reflux disease, esophagitis pre sence not specified K21.9 Active 098921762 Problem Asthma exacerbation J45.901 Active 563475980 Problem Chronic pain syndrome G89.4 Active 927262296 Problem Chronic constipation K59.00 Active 364053917 Problem Essential hypertension I10 Active 75765290 Problem Chronic kidney disease, stage 1 N18.1 Active 063104006 Problem Hyperlipidemia, unspecified hyperlipidemia E78.5 Active 66072320 Problem Pernicious anemia D51.0 Active 84 776689 Problem Atrophy of left kidney N26.1 Active 284774082 Problem Vitamin D deficiency E55.9 Active 46560850 Problem Chronic prescription opiate use Z79.899 Active 301749647 Problem Rheumatoid arthritis involvi ng multiple sites with positive rheumatoid factor M05.89 Active 053520732 Problem Bladder wall thickening N32.89 Active 826207031 ALLERGIES Substance Reaction Event Type Date Status Penicillin V Potassium Cannot tolerate Oral PCN. St ates she can tolerate injections Drug Allergy May, Active Orencia Unknown Drug Allergy May, Active Cipro Unknown Drug Allergy May, Active Codeine Unknown Drug Allergy May, Active Ivp Dye anaphylaxis Non Drug Allergy May, Active ENCOUNTERS Encounter Location Date Diagnosis [facility] [id number] [place] [address] Dec, [facility] [address] [address] Dec, [facility] [id number] [place] [address] Nov, [facility] [address] [address] Nov, Chronic pain syndrome G89.4 [facility] [address] [address] Oct, Chronic pain syndrome G89.4 [facility] [address] [address] 08 Oct, 2017 Chronic kidney disease, stag e 1 N18.1 [facility] [address] [address] 07 Oct, 2017 Chronic prescription opiate use Z79.899 ; Cough R05 ; Asthma exacerbation J45.901 ; Elevated liver enzymes R74.8 ; Rheumatoid arthritis involving multiple sites with positive rheumatoid factor M05.89 and Chronic pain syndrome G89.4 [facility] [id number] [place] [address] Sep, Chronic pain syndrome G89.4 [facility] [id number] [place] [address] Sep, [facility] [id number] [place] [address] Aug, Acute bronchitis, unspecifie d organism J20.9 [facility] [id number] [place] [address] Aug, Chronic pain syndrome G89.4 [facility] [id number] [place] [address] Jul, Chronic pain syndrome G89.4 [facility] [address] [facility] [id number] [address] [place] [address] Jun, Chronic pain syndrome G89.4 [facility] [address] [facility] [id number] [address] [place] [id number] 29 May, 2017 Rheumatoid arthritis involvi ng multiple sites with positive rheumatoid factor M05.89 [facility] [address] [facility] [id number] [address] [place] [address] May, Gastroesophageal reflux dise ase, esophagitis presence not specified K21.9 and Chronic pain syndrome G89.4 [facility] [address] [facility] [id number] [address] [place] [address] May, [place] [id number] [place] [address] May, Chronic kidney disease, stag e 1 N18.1 and Esophageal candidiasis B37.81 [place] [address] [facility] [id number] [address] [place] [address] May, Chronic kidney disease, stag e 1 N18.1 [place] [address] [facility] [id number] [address] [place] [address] 05 May, 2017 Cough R05 ; Fever, unspecifi ed fever cause R50.9 ; Rheumatoid arthritis involving multiple sites with positive rheumatoid factor M05.89 and Chronic prescription opiate use Z79.899 [place] [id number] [place] [address] Apr, [place] [address] [facility] [id number] [address] [place] [address] Apr, Cough R05 [place] [id number] [place] [address] Apr, Asthma exacerbation J45.901 [place] [id number] [place] [address] Apr, [place] [id number] [place] [address] Apr, Generalized anxiety disorder F41.1 and Severe episode of recurrent major depressive disorder, without psychotic features F33.2 [facility] [address] [facility] [id number] [address] [place] [address] Mar, [facility] [address] [facility] [id number] [address] [place] [address] Feb, Chronic pain syndrome G89.4 [place] [address] [id number] [address] [place] [address] Feb, Acute non-recurrent maxillar y sinusitis J01.00 [place] [address] [facility] [id number] [address] [place] [address] Feb, Acute non-recurrent frontal sinusitis J01.10 [place] [id number] [place] [address] Feb, Chronic pain syndrome G89.4 [place] [id number] [place] [address] January, Acute cystitis with hematuri a N30.01 [place] [id number] [place] [address] January, Acute cystitis with hematuri a N30.01 ; Dysuria R30.0 and Moderate persistent asthma with acute exacerbation J45.41 [place] [address] [facility] [id number] [address] [place] [address] January, [place] [address] [facility] [id number] [address] [place] [address] January, Chronic pain syndrome G89.4 [place] [id number] [place] [address] January, Asthma exacerbation J45.901 [place] [address] [facility] [id number] [address] [place] [address] January, Asthma exacerbation J45.901 [place] [id number] [place] [address] Dec, Cough R05 ; Numbness in both hands R20.0 ; Ground glass opacity present on imaging of lung R91.8 ; Hypoxia R09.02 and Asthma exacerbation J45.901 [place] [id number] [place] [address] Dec, Chronic pain syndrome G89.4 [place] [address] [address] Nov, Chronic prescription opiate use Z79.899 ; Rheumatoid arthritis involving multiple sites with positive rheumatoid factor M05.89 ; Moderate persistent asthma with acute exacerbation J45.41 ; Pneumonia of right lower lobe due to infectious organism J18.1 ; Chronic pain syndrome G89.4 ; Gastroesophageal reflux disease, esophagitis presence not specified K21.9 and Hyperlipidemia, unspecified hyperlipidemia E78.5 [place] [address] [address] Nov, Rheumatoid arthritis involvi ng multiple sites with positive rheumatoid factor M05.89 [place] [id number] [place] [address] Oct, [place] [address] [address] Oct, Essential hypertension I10 [place] [id number] [place] [address] Sep, Hypoxia R09.02 and Ground gl ass opacity present on imaging of lung R91.8 [place] [address] [facility] [id number] [address] [place] [address] Sep, Moderate persistent asthma w ith acute exacerbation J45.41 [facility] [address] [id number] Sep, [place] [id number] [place] [address] Sep, Chronic constipation K59.00 and Moderate persistent asthma with acute exacerbation J45.41 [facility] [address] [id number] [address] [place] [address] Sep, Moderate persistent asthma w ith acute exacerbation J45.41 [facility] [address] [id number] [address] [place] [address] 30 Aug, 2016 [facility] [address] [facility] [id number] [address] [place] [address] Aug, [facility] [address] [id number] [address] [place] [address] Aug, [facility] [address] [id number] [address] [place] [address] Aug, Rheumatoid arthritis involvi ng multiple sites with positive rheumatoid factor M05.89 ; Essential hypertension I10 ; Hyperlipidemia, unspecified hyperlipidemia E78.5 ; Chronic constipation K59.00 and Moderate persistent asthma with acute exacerbation J45.41 [facility] [address] [id number] [address] [place] [address] Aug, Bronchitis J40 [facility] [address] [id number] [address] [place] [address] Aug, Rheumatoid arthritis involvi ng multiple sites with positive rheumatoid factor M05.89 [facility] [address] [facility] [id number] [address] [place] [address] Aug, Pharyngitis, unspecified pablito ology J02.9 and Acute nasopharyngitis J00 [facility] [address] [id number] [address] [place] [address] Aug, [facility] [address] [facility] [id number] [address] [place] [address] Jul, [facility] [address] [facility] [id number] [address] [place] [address] Jul, Rheumatoid arthritis involvi ng multiple sites with positive rheumatoid factor M05.89 ; Essential hypertension I10 ; Hyperlipidemia, unspecified hyperlipidemia E78.5 ; Rash R21 ; Mild persistent asthma with acute exacerbation J45.31 ; Hematuria R31.9 ; Osteoporosis M81.0 and Gastroesophageal reflux disease, esophagitis presence not specified K21.9 [facility] [address] [facility] [id number] [address] [place] [address] 18 Jun, 2016 [facility] [address] [facility] [id number] [address] [place] [id number] 10 Jun, 2016 Dysuria R30.0 [facility] [address] [facility] [id number] [address] [place] [address] 05 Jun, 2016 Acute non-recurrent maxillar y sinusitis J01.00 and Dysuria R30.0 [facility] [address] [facility] [id number] [address] [place] [id number] 16 May, 2016 [facility] [address] [facility] [id number] [address] [place] [address] May, [facility] [address] [facility] [id number] [place] [address] Apr, Chronic prescription opiate use Z79.899 and Rheumatoid arthritis involving multiple sites with positive rheumatoid factor M05.89 [facility] [address] [facility] [id number] [address] [place] [address] Mar, [facility] [id number] [place] [address] Feb, Dizziness of unknown cause R 42 and Other chronic pain G89.29 [facility] [address] [facility] [id number] [address] [place] [address] Feb, [facility] [address] [facility] [id number] [address] [place] [address] Feb, Shortness of breath R06.02 [facility] [address] [facility] [id number] [address] [place] [address] January, [facility] [address] [facility] [id number] [address] [place] [address] January, Rheumatoid arthritis involvi ng multiple sites with positive rheumatoid factor M05.89 ; Chronic prescription opiate use Z79.899 ; Hyperlipidemia, unspecified hyperlipidemia E78.5 ; Cough R05 ; Exposure to pneumonia Z20.828 ; Diarrhea, unspecified type R19.7 ; Weight loss R63.4 ; Lumbago with sciatica, right side M54.41 and Lumbago with sciatica, left side M54.42 [facility] [address] [address] Dec, [facility] [address] [address] Dec, Bronchitis J40 [facility] [address] [address] Nov, [facility] [address] [address] Nov, [facility] [address] [address] Nov, [facility] [address] [address] Nov, Bloody diarrhea R19.7 ; [place] n wall thickening K63.9 ; Shortness of breath R06.02 and Bladder wall thickening N32.89 [facility] [id number] [place] [id number] Oct, Dental examination Z01.20 [facility] [id number] [place] [address] 15 Oct, 2015 [facility] [id number] [place] [address] Oct, Toothache K08.8 [facility] [address] [id number] Oct, Dental examination Z01.20 [facility] [address] [address] Oct, [facility] [address] [address] 18 Sep, 2015 [facility] [address] [facility] [id number] [address] [place] [id number] 13 Sep, 2015 Burning with urination R30.0 [facility] [address] [facility] [id number] [address] [place] [address] Sep, Hematuria R31.9 ; Rheumatoid arthritis involving multiple sites with positive rheumatoid factor M05.89 and Rheumatoid arthritis flare M06.9 [place] [address] [facility] [id number] [address] [place] [address] Aug, Hyperlipidemia, unspecified hyperlipidemia E78.5 and Hematuria R31.9 [place] [address] [facility] [id number] [address] [place] [address] Aug, Hematuria R31.9 ; Chronic ki dney disease, stage 1 N18.1 and Hyperlipidemia, unspecified hyperlipidemia E78.5 [place] [id number] [place] [address] Aug, Rheumatoid arthritis involvi ng multiple sites with positive rheumatoid factor M05.89 ; Asthma exacerbation J45.901 ; Hematuria R31.9 ; Hyperlipidemia, unspecified hyperlipidemia E78.5 and Chronic kidney disease, stage 1 N18.1 [place] [address] [facility] [id number] [address] [place] [address] Aug, [place] [address] [facility] [id number] [address] [place] [address] Jul, [place] [address] [id number] [place] [address] Jul, Lumbosacral radiculopathy M5 4.17 [place] [address] [facility] [id number] [address] [place] [address] Jul, [place] [address] [facility] [id number] [address] [place] [address] Jun, Rheumatoid arthritis involvi ng multiple sites with positive rheumatoid factor M05.89 ; Hyperlipidemia, unspecified hyperlipidemia E78.5 ; Lumbosacral radiculopathy M54.17 ; Carpal tunnel syndrome, right upper limb G56.01 and Carpal tunnel syndrome, left upper limb G56.02 [facility] [address] [facility] [id number] [address] [place] [address] Jun, [facility] [address] [facility] [id number] [address] [place] [address] May, Lumbar radicular pain 724.4 and Dysuria 788.1 [facility] [address] [facility] [id number] [address] [place] [address] 08 May, 2015 Rheumatoid arthritis 714.0 ; Lumbar radicular pain 724.4 ; Burn 949.0 and Thoracic back pain 724.1 [facility] [address] [facility] [id number] [address] [place] [address] May, [facility] [id number] [place] [address] May, [facility] [id number] [place] [address] Apr, [facility] [id number] [place] [address] Mar, Hyperlipidemia 272.4 [facility] [id number] [place] [address] Mar, [facility] [id number] [place] [address] Mar, [facility] [id number] [place] [address] Mar, Diarrhea 787.91 ; Chronic ki dney disease, unspecified 585.9 ; Hyperlipidemia 272.4 and Asthma 493.90 [facility] [id number] [place] [address] Mar, [facility] [id number] [place] [address] Mar, Gastroenteritis 558.9 [facility] [address] [id number] [address] [place] [address], [place] [address] Feb, [facility] [address] [id number] [address] [place] [address], [place] [address] January, [facility] [address] [id number] [address] [place] [address], [place] [address] January, [facility] [address] [id number] [address] [place] [address], [place] [address] Dec, [facility] [address] [id number] [address] [place] [address], [place] [address] Dec, [facility] [address] [id number] [address] [place] [address] Nov, [facility] [address] [id number] [address] [place] [address], [place] [address] Nov, [facility] [address] [id number] [address] [place] [address], [place] [address] Nov, [facility] [address] [id number] [address] [place] [address], [place] [address] Nov, [facility] [address] [id number] [address] [place] [address], [place] [address] Nov, [facility] [address] [id number] [address] [place] [phone] Nov, [facility] [address] [id number] [address] [place] [phone] Oct, [facility] [address] [id number] [address] [place] [address], [place] [address] Oct, [facility] [address] [id number] [address] [place] [phone] Sep, [facility] [address] [id number] [address] [place] [address], [place] [address] Sep, [facility] [address] [id number] [address] [place] [address], [place] [address] 13 Sep, 2014 [facility] [address] [id number] [address] [place] [address], [place] [address] Sep, [facility] [address] [id number] [address] [place] [address], [place] [address] Sep, [facility] [address] [id number] [address] [place] [address], [place] [address] Sep, [facility] [address] [id number] [address] [place] [address], [place] [address] Aug, [facility] [address] [id number] [address] [place] [address], [place] [address] Aug, [facility] [address] [id number] [address] [place] [address], [place] [address] Aug, [facility] [address] [id number] [address] [place] [address], [place] [address] Aug, [facility] [address] [id number] [address] [place] [address], [place] [address] Jul, [facility] [address] [id number] [address] [place] [address], [place] [address] Jul, [facility] [address] [id number] [address] [place] [address], [place] [address] Jul, [facility] [address] [id number] [address] [place] [address], [place] [address] Jul, [facility] [address] [id number] [address] [place] [address], [place] [address] Jul, [facility] [address] [id number] [address] [place] [address], [place] [address] Jul, [facility] [address] [id number] [address] [place] [address], [place] [address] Jul, [facility] [address] [id number] [address] [place] [address], [place] [address] Jul, [facility] [address] [id number] [address] [place] [address], [place] [address] Jul, [facility] [address] [id number] [address] [place] [address], [place] [address] Jun, [facility] [address] [id number] [address] [place] [address], [place] [address] 15 Jun, 2014 [facility] [address] [id number] [address] [place] [address], [place] [address] 15 Jun, 2014 [facility] [address] [id number] [address] [place] [address], [place] [address] 25 May, 2014 [facility] [address] [id number] [address] [place] [address], [place] [address] 25 May, 2013 [facility] [address] [id number] [address] [place] [address], [place] [address] 24 May, 2014 [facility] [address] [id number] [address] [place] [address], [place] [address] 24 May, 2013 [facility] [address] [id number] [address] [place] [address], [place] [address] 24 May, 2013 [facility] [address] [id number] [address] [place] [address], [place] [address] 24 May, 2013 [facility] [address] [id number] [address] [place] [address], [place] [address] 19 May, 2013 [facility] [address] [id number] [address] [place] [address], [place] [id number] 19 May, 2013 [facility] [address] [id number] [address] [place] [address], [place] [phone] 11 May, 2013 [facility] [address] [id number] [address] [place] [address], [place] [phone] 11 May, 2013 [facility] [address] [id number] [address] [place] [address], [place] [id number] 11 May, 2013 [facility] [address] [id number] [address] [place] [phone] May, [facility] [address] [id number] [address] [place] [id number] May, [facility] [address] [id number] [address] [place] [phone] May, [facility] [address] [id number] [address] [place] [phone] May, [facility] [address] [id number] [address] [place] [phone] May, [facility] [address] [id number] [address] [place] [phone] Apr, [facility] [address] [id number] [address] [place] [phone] Apr, [facility] [address] [id number] [address] [place] [phone] Aug, [facility] [address] [id number] [address] [place] [phone] Jul, IMMUNIZATIONS No Known Immunizations SOCIAL HISTORY Never Assessed REASON FOR VISIT pain management--tcuppettRN, --Right ear drainage since Wednesday with some diffi culty hearing , --Temperature running 100.8-101 PLAN OF CARE Activity Details Follow Up 1 Week Reason:Fever/cough VITAL SIGNS Height 66 in 2017-05-25 Weight 141.0 lbs 2017-05-25 Temperature 98.3 degrees Fahrenheit 2017-05-25 Heart Rate 92 bpm 2017-05-25 Respiratory Rate 20 2017-05-25 Oximetry 92 % 2017-05-25 BMI 22.76 kg/m2 2017-05-25 Blood pressure systolic 128 mmHg 2017-05-25 Blood pressure diastolic 76 mmHg 2017-05-25 MEDICATIONS Medication Instructions Dosage Frequency Start Date End Date Duration S farooq OxyContin 15 mg Orally every 12 hrs 1 tablet 12h Apr, 28 days Active Omeprazole 40 mg Orally Once a day 1 capsule 24h Jul, 90 days Active Symbicort 160-4.5 MCG/ACT Inhalation Twice a day 2 puffs 12h Active Cyclobenzaprine HCl 10 mg Orally Three times a day as needed 1 tablet 90 Active ProAir HFA 108 (90 Base) MCG/ACT Inhalation every 4 hrs 2 puffs as needed 4h Mar, Active Tylenol Arthritis Pain by oral route 2 times a day 2tablets 12h Active PredniSONE 5 MG Orally Once a day 1 tablet 24h Dec, Active Cymbalta 60 mg Orally Once a day 1 capsule 24h Apr, 90 days Active Gabapentin 800 MG Orally Three times a day 1 tablet 8h Active Ibuprofen 200 MG Orally every 4-6 hours as needed 2 tablets Active Leflunomide 20 MG Orally Once a day 1 tablet 24h Active Bystolic 10 mg Orally 2 times a day 1 tablet 12h 90 days Active Ipratropium-Albuterol 0.5-2.5 (3) MG/3ML Inhalation every 6 hrs 3 ml as needed 6h Active RESULTS Name Result Date Reference Range AMERITOX 2017-05-25 LDH 2017-05-25 LDH 177 119-226 CBC 2017-05-25 WBC 4.6 3.4-10.8 RBC 4.67 3.77-5.28 Hemoglobin 13.2 11.1-15.9 Hematocrit 40.8 34.0-46.6 MCV 87 79-97 MCH 28.3 26.6-33.0 MCHC 32.4 31.5-35.7 RDW 13.8 12.3-15.4 Platelets 200 150-379 Neutrophils 58 Lymphs 30 Monocytes 10 Eos 2 Basos 0 Neutrophils (Absolute) 2.6 1.4-7.0 Lymphs (Absolute) 1.4 0.7-3.1 Monocytes(Absolute) 0.4 0.1-0.9 Eos (Absolute) 0.1 0.0-0.4 Baso (Absolute) 0.0 0.0-0.2 Immature Granulocytes 0 Immature Grans (Abs) 0.0 0.0-0.1 CMP 2017-05-25 Glucose, Serum 103 65-99 BUN 16 6-24 Creatinine, Serum 1.14 0.57-1.00 eGFR If NonAfricn Am 57 >59 eGFR If Africn Am 66 >59 BUN/Creatinine Ratio 14 9-23 Sodium, Serum 142 134-144 Potassium, Serum 4.0 3.5-5.2 Chloride, Serum 106 96-106 Carbon Dioxide, Total 20 18-29 Calcium, Serum 9.1 8.7-10.2 Protein, Total, Serum 6.1 6.0-8.5 Albumin, Serum 4.1 3.5-5.5 Globulin, Total 2.0 1.5-4.5 A/G Ratio 2.1 1.2-2.2 Bilirubin, Total 0.2 0.0-1.2 Alkaline Phosphatase, S 60 39-117 AST (SGOT) 17 0-40 ALT (SGPT) 21 0-32 CT Scan : Chest w/o Contrast 2017-05-26 PROCEDURES Procedure Date Ordered Result Body Site MEASURE BLOOD OXYGEN LEVEL May 25, 2017 [facility] May 25, 2017 [facility] VISIT ESTABLISHED PATIENT May 25, 2017 No Charge May 25, 2017 VENIPUNCT, ROUTINE* May 25, 2017 INSTRUCTIONS MEDICATIONS ADMINISTERED No Known Medications MEDICAL [...]
--- OUTSIDE RECORDS SUMMARY | 2020-02-27 15:51 | XMS REPORT ---
Author Author Beba ESTRELLA Organization [facility] Address [address] [place] [address] Care Team Providers Care Chemical Research Worker Name Role Phone ESTRELLAGUS Allen Unavailable PROBLEMS Type Condition ICD9-CM Code HZS94-EX Code Onset Dates Condition S tatus SNOMED Code Problem Colon wall thickening K63.9 Active 389550368 Problem Mild persistent asthma without complication J45.30 Active 466314960 Problem Osteoporosis M81.0 Active 5240533 6 Problem Generalized anxiety disorder F41.1 A ctive 13372630 Problem Severe episode of recurrent major depressive disorder, without psychotic features F33.2 Active 95003926 Problem Moderate persistent asthma with acute exacerbation J45.41 Active 247847858135655 Problem Gastroesophageal reflux disease, esophagitis pre sence not specified K21.9 Active 604048426 Problem Asthma exacerbation J45.901 Active 364445252 Problem Chronic pain syndrome G89.4 Active 858098101 Problem Chronic constipation K59.00 Active 182638013 Problem Essential hypertension I10 Active 62410289 Problem Chronic kidney disease, stage 1 N18.1 Active 172991193 Problem Hyperlipidemia, unspecified hyperlipidemia E78.5 Active 26356595 Problem Pernicious anemia D51.0 Active 84 893100 Problem Atrophy of left kidney N26.1 Active 969432162 Problem Vitamin D deficiency E55.9 Active 55771257 Problem Chronic prescription opiate use Z79.899 Active 795470739 Problem 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
--- OUTSIDE RECORDS SUMMARY | 2020-02-27 15:52 | XMS REPORT ---
Author Author Beba CORBIN [facility] Address [address] [place] [address] Care Team Providers Care [employer] Name Role Phone EMERALDSTUART JEFFERSHANY Unavailable PROBLEMS Type Condition ICD9-CM Code ZRE25-BI Code Onset Dates Condition S tatus SNOMED Code Problem Colon wall thickening K63.9 Active 824892505 Problem Mild persistent asthma without complication J45.30 Active 804498519 Problem Osteoporosis M81.0 Active 4370151 6 Problem Generalized anxiety disorder F41.1 A ctive 68806794 Problem Severe episode of recurrent major depressive disorder, without psychotic features F33.2 Active 45495245 Problem Moderate persistent asthma with acute exacerbation J45.41 Active 762407591680125 Problem Gastroesophageal reflux disease, esophagitis pre sence not specified K21.9 Active 744975877 Problem Asthma exacerbation J45.901 Active 808635254 Problem Chronic pain syndrome G89.4 Active 965615934 Problem Chronic constipation K59.00 Active 313076421 Problem Essential hypertension I10 Active 67954294 Problem Chronic kidney disease, stage 1 N18.1 Active 222178181 Problem Hyperlipidemia, unspecified hyperlipidemia E78.5 Active 55712108 Problem Pernicious anemia D51.0 Active 84 888257 Problem Atrophy of left kidney N26.1 Active 371695921 Problem Vitamin D deficiency E55.9 Active 45776371 Problem Chronic prescription opiate use Z79.899 Active 766347318 Problem Rheumatoid arthritis involvi ng multiple sites with positive rheumatoid factor M05.89 Active 011761830 Problem Bladder wall thickening N32.89 Active 441816299 ALLERGIES Substance Reaction Event Type Date Status Penicillin V Potassium Cannot tolerate Oral PCN. St ates she can tolerate injections Drug Allergy Oct, Active Orencia Unknown Drug Allergy Oct, Active Cipro Unknown Drug Allergy Oct, Active Codeine Unknown Drug Allergy Oct, Active Ivp Dye anaphylaxis Non Drug Allergy Oct, Active ENCOUNTERS Encounter Location Date Diagnosis [facility] [address] [facility] [id number] [address] [place] [phone] Mar, [facility] [address] [facility] [facility] [id number] [place] [id number] Feb, Injury of right ankle, initi al encounter S99.911A [facility] [address] [place] [id number] [address] [place] [phone] Feb, Chronic pain syndrome G89.4 [facility] [address] [facility] [id number] [address] [place] [phone] Feb, Chronic pain syndrome G89.4 [place] [address] [place] [id number] [place] [phone] Feb, Moderate persistent asthma w ith acute exacerbation J45.41 and Persistent cough for 3 weeks or longer R05 [facility] [address] [phone] January, [facility] [address] [place] [id number] [place] [address] January, Moderate persistent asthma w ith acute exacerbation J45.41 [place] [address] [place] [id number] [place] [phone] January, Chronic pain syndrome G89.4 [facility] [address] [place] [id number] [address] [place] [phone] January, Tachycardia R00.0 and Modera te persistent asthma with acute exacerbation J45.41 [place] [address] [place] [id number] [address] [place] [phone] January, Tachycardia R00.0 ; Moderate persistent asthma with acute exacerbation J45.41 ; Gastroesophageal reflux disease, esophagitis presence not specified K21.9 ; Hyperlipidemia, unspecified hyperlipidemia E78.5 and Chronic pain syndrome G89.4 [facility] [address] [place] [id number] [address] [place] [phone] Dec, Medicare annual wellness vis it, initial [...] Z23 and Chronic pain syndrome G89.4 [facility] [address] [place] [id number] [place] [phone] 24 Dec, 2017 Chronic pain syndrome G89.4 [place] [address] [place] [id number] [place] [phone] Dec, [place] [address] [phone] Nov, [place] [address] [address] Nov, Chronic pain syndrome G89.4 [place] [address] [place] [id number] [address] [place] [phone] Oct, Chronic pain syndrome G89.4 [place] [address] [place] [id number] [address] [place] [id number] 08 Oct, 2017 Chronic kidney disease, stag e 1 N18.1 [place] [address] [place] [id number] [place] [id number] 07 Oct, 2017 Chronic prescription opiate use Z79.899 ; Cough R05 ; Asthma exacerbation J45.901 ; Elevated liver enzymes R74.8 ; Rheumatoid arthritis involving multiple sites with positive rheumatoid factor M05.89 and Chronic pain syndrome G89.4 [place] [address] [place] [id number] [address] [place] [phone] Sep, Chronic pain syndrome G89.4 [facility] [address] [place] [id number] [address] [place] [phone] Sep, [place] [address] [place] [id number] [address] [place] [phone] Aug, Acute bronchitis, unspecifie d organism J20.9 [facility] [address] [facility] [facility] [id number] [address] [place] [phone] Aug, Chronic pain syndrome G89.4 [facility] [address] [place] [id number] [address] [place] [phone] Jul, Chronic pain syndrome G89.4 [facility] [address] [place] [id number] [address] [place] [phone] Jun, Chronic pain syndrome G89.4 [place] [address] [place] [id number] [address] [place] [id number] 29 May, 2017 Rheumatoid arthritis involvi ng multiple sites with positive rheumatoid factor M05.89 [place] [address] [place] [id number] [place] [phone] May, Gastroesophageal reflux dise ase, esophagitis presence not specified K21.9 and Chronic pain syndrome G89.4 [facility] [address] [place] [id number] [address] [place] [phone] May, [place] [address] [place] [id number] [place] [phone] 12 May, 2017 Chronic kidney disease, stag e 1 N18.1 and Esophageal candidiasis B37.81 [place] [address] [place] [id number] [address] [place] [phone] 11 May, 2017 Chronic kidney disease, stag e 1 N18.1 [place] [address] [place] [id number] [address] [place] [id number] 05 May, 2017 Cough R05 ; Fever, unspecifi ed fever cause R50.9 ; Rheumatoid arthritis involving multiple sites with positive rheumatoid factor M05.89 and Chronic prescription opiate use Z79.899 [facility] [address] [place] [id number] [address] [place] [phone] Apr, [place] [address] [place] [id number] [address] [place] [phone] Apr, Cough R05 [facility] [address] [id number] [address] [place] [phone] Apr, Asthma exacerbation J45.901 [place] [address] [facility] [id number] [address] [place] [phone] Apr, [facility] [address] [facility] [id number] [address] [place] [phone] Apr, Generalized anxiety disorder F41.1 and Severe episode of recurrent major depressive disorder, without psychotic features F33.2 [place] [address] [id number] [address] [place] [phone] Mar, [place] [address] [facility] [id number] [address] [place] [phone] Feb, Chronic pain syndrome G89.4 [place] [address] [facility] [id number] [address] [place] [phone] Feb, Acute non-recurrent maxillar y sinusitis J01.00 [place] [address] [id number] [address] [place] [phone] Feb, Acute non-recurrent frontal sinusitis J01.10 [place] [address] [facility] [id number] [address] [place] [phone] Feb, Chronic pain syndrome G89.4 [place] [address] [facility] [id number] [address] [place] [id number] January, Acute cystitis with hematuri a N30.01 [place] [address] [facility] [id number] [address] [place] [id number] January, Acute cystitis with hematuri a N30.01 ; Dysuria R30.0 and Moderate persistent asthma with acute exacerbation J45.41 [place] [address] [facility] [id number] [address] [place] [phone] January, [place] [address] [place] [id number] [address] [place] [phone] January, Chronic pain syndrome G89.4 [facility] [address] [place] [id number] [address] [place] [phone] January, Asthma exacerbation J45.901 [facility] [address] [facility] [facility] [id number] [address] [place] [phone] January, Asthma exacerbation J45.901 [facility] [address] [place] [id number] [address] [place] [address] Dec, Cough R05 ; Numbness in both hands R20.0 ; Ground glass opacity present on imaging of lung R91.8 ; Hypoxia R09.02 and Asthma exacerbation J45.901 [place] [address] [place] [id number] [address] [place] [address] Dec, Chronic pain syndrome G89.4 [place] [id number] [place] [address] Nov, Chronic prescription opiate use Z79.899 ; Rheumatoid arthritis involving multiple sites with positive rheumatoid factor M05.89 ; Moderate persistent asthma with acute exacerbation J45.41 ; Pneumonia of right lower lobe due to infectious organism J18.1 ; Chronic pain syndrome G89.4 ; Gastroesophageal reflux disease, esophagitis presence not specified K21.9 and Hyperlipidemia, unspecified hyperlipidemia E78.5 [place] [address] [place] [id number] [place] [id number] Nov, Rheumatoid arthritis involvi ng multiple sites with positive rheumatoid factor M05.89 [place] [address] [facility] [id number] [address] [place] [id number] Oct, [place] [address] [place] [id number] [address] [place] [phone] Oct, Essential hypertension I10 [place] [address] [facility] [id number] [address] [place] [phone] Sep, Hypoxia R09.02 and Ground gl ass opacity present on imaging of lung R91.8 [place] [address] [place] [id number] [place] [phone] Sep, Moderate persistent asthma w ith acute exacerbation J45.41 [facility] [id number] [place] [id number] Sep, [facility] [address] [facility] [facility] [id number] [address] [place] [id number] Sep, Chronic constipation K59.00 and Moderate persistent asthma with acute exacerbation J45.41 [facility] [address] [facility] [id number] [address] [place] [phone] Sep, Moderate persistent asthma w ith acute exacerbation J45.41 [facility] [address] [facility] [id number] [address] [place] [id number] Aug, [place] [address] [facility] [id number] [address] [place] [phone] Aug, [facility] [address] [facility] [id number] [address] [place] [phone] Aug, [facility] [address] [facility] [facility] [id number] [address] [place] [id number] Aug, Rheumatoid arthritis involvi ng multiple sites with positive rheumatoid factor M05.89 ; Essential hypertension I10 ; Hyperlipidemia, unspecified hyperlipidemia E78.5 ; Chronic constipation K59.00 and Moderate persistent asthma with acute exacerbation J45.41 [facility] [address] [facility] [id number] [address] [place] [phone] Aug, Bronchitis J40 [facility] [address] [facility] [facility] [id number] [address] [place] [phone] Aug, Rheumatoid arthritis involvi ng multiple sites with positive rheumatoid factor M05.89 [facility] [address] [facility] [id number] [address] [place] [phone] Aug, Pharyngitis, unspecified pablito ology J02.9 and Acute nasopharyngitis J00 [place] [address] [facility] [id number] [address] [place] [phone] Aug, [facility] [address] [facility] [id number] [address] [place] [id number] Jul, [facility] [address] [facility] [id number] [address] [place] [phone] Jul, Rheumatoid arthritis involvi ng multiple sites with positive rheumatoid factor M05.89 ; Essential hypertension I10 ; Hyperlipidemia, unspecified hyperlipidemia E78.5 ; Rash R21 ; Mild persistent asthma with acute exacerbation J45.31 ; Hematuria R31.9 ; Osteoporosis M81.0 and Gastroesophageal reflux disease, esophagitis presence not specified K21.9 [facility] [address] [facility] [id number] [address] [place] [phone] Jun, [facility] [address] [facility] [id number] [address] [place] [phone] Jun, Dysuria R30.0 [facility] [address] [facility] [facility] [id number] [address] [place] [id number] Jun, Acute non-recurrent maxillar y sinusitis J01.00 and Dysuria R30.0 [facility] [address] [facility] [id number] [address] [place] [phone] May, [facility] [address] [facility] [id number] [address] [place] [phone] May, [facility] [address] [facility] [id number] [address] [place] [phone] Apr, Chronic prescription opiate use Z79.899 and Rheumatoid arthritis involving multiple sites with positive rheumatoid factor M05.89 [facility] [address] [facility] [id number] [address] [place] [id number] Mar, [facility] [address] [facility] [id number] [address] [place] [id number] Feb, Dizziness of unknown cause R 42 and Other chronic pain G89.29 [facility] [address] [place] [id number] [address] [place] [id number] Feb, [facility] [id number] [place] [phone] Feb, Shortness of breath R06.02 [facility] [address] [facility] [id number] [address] [place] [phone] January, [facility] [address] [facility] [id number] [address] [place] [address] January, Rheumatoid arthritis involvi ng multiple sites with positive rheumatoid factor M05.89 ; Chronic prescription opiate use Z79.899 ; Hyperlipidemia, unspecified hyperlipidemia E78.5 ; Cough R05 ; Exposure to pneumonia Z20.828 ; Diarrhea, unspecified type R19.7 ; Weight loss R63.4 ; Lumbago with sciatica, right side M54.41 and Lumbago with sciatica, left side M54.42 [facility] [address] [place] [phone] Dec, [facility] [address] [place] [id number] [address] [place] [phone] Dec, Bronchitis J40 [facility] [address] [place] [id number] [address] [place] [phone] Nov, [facility] [address] [place] [id number] [address] [place] [phone] Nov, [facility] [address] [place] [phone] Nov, [facility] [address] [place] [id number] [address] [place] [phone] Nov, Bloody diarrhea R19.7 ; [place] n wall thickening K63.9 ; Shortness of breath R06.02 and Bladder wall thickening N32.89 [facility] [address] [id number] [address] [place] [id number] Oct, Dental examination Z01.20 [facility] [address] [place] [id number] [address] [place] [phone] Oct, [facility] [address] [address] 15 Oct, 2015 Toothache K08.8 [facility] [address] [place] [id number] [address] [place] [id number] 11 Oct, 2015 Dental examination Z01.20 [facility] [address] [phone] 02 Oct, 2015 [place] [address] [address] 18 Sep, 2015 [place] [address] [address] 13 Sep, 2015 Burning with urination R30.0 [place] [address] [address] Sep, Hematuria R31.9 ; Rheumatoid arthritis involving multiple sites with positive rheumatoid factor M05.89 and Rheumatoid arthritis flare M06.9 [place] [address] [address] Aug, Hyperlipidemia, unspecified hyperlipidemia E78.5 and Hematuria R31.9 [place] [address] [address] Aug, Hematuria R31.9 ; Chronic ki dney disease, stage 1 N18.1 and Hyperlipidemia, unspecified hyperlipidemia E78.5 [place] [address] [address] Aug, Rheumatoid arthritis involvi ng multiple sites with positive rheumatoid factor M05.89 ; Asthma exacerbation J45.901 ; Hematuria R31.9 ; Hyperlipidemia, unspecified hyperlipidemia E78.5 and Chronic kidney disease, stage 1 N18.1 [place] [address] [address] Aug, [place] [address] [address] Jul, [facility] [address] [address] Jul, Lumbosacral radiculopathy M5 4.17 [facility] [address] [id number] [address] [place] [id number] Jul, [facility] [address] [id number] [address] [place] [id number] Jun, Rheumatoid arthritis involvi ng multiple sites with positive rheumatoid factor M05.89 ; Hyperlipidemia, unspecified hyperlipidemia E78.5 ; Lumbosacral radiculopathy M54.17 ; Carpal tunnel syndrome, right upper limb G56.01 and Carpal tunnel syndrome, left upper limb G56.02 [facility] [address] [id number] [address] [place] [phone] Jun, [facility] [address] [id number] [address] [place] [phone] May, Lumbar radicular pain 724.4 and Dysuria 788.1 [facility] [address] [id number] [address] [place] [id number] 08 May, 2015 Rheumatoid arthritis 714.0 ; Lumbar radicular pain 724.4 ; Burn 949.0 and Thoracic back pain 724.1 [facility] [address] [id number] [address] [place] [id number] 08 May, 2015 [facility] [address] [id number] [address] [place] [phone] May, [facility] [address] [id number] [address] [place] [phone] Apr, [facility] [address] [id number] [address] [place] [id number] Mar, Hyperlipidemia 272.4 [facility] [address] [id number] [address] [place] [id number] Mar, [facility] [address] [facility] [id number] [address] [place] [phone] Mar, [facility] [address] [id number] [address] [place] [id number] Mar, Diarrhea 787.91 ; Chronic ki dney disease, unspecified 585.9 ; Hyperlipidemia 272.4 and Asthma 493.90 [facility] [address] [id number] [address] [place] [id number] Mar, [facility] [address] [id number] [address] [place] [id number] Mar, Gastroenteritis 558.9 [facility] [address] [id number] [address] [place] [id number] Feb, [facility] [address] [id number] [address] [place] [id number] January, [facility] [address] [id number] [address] [place] [id number] January, [facility] [address] [id number] [address] [place] [phone] Dec, [facility] [address] [id number] [address] [place] [id number] Dec, [facility] [address] [id number] [address] [place] [phone] Nov, [facility] [address] [id number] [address] [place] [id number] Nov, [facility] [address] [id number] [address] [place] [id number] Nov, [facility] [address] [id number] [address] [place] [phone] Nov, [facility] [address] [id number] [address] [place] [phone] Nov, [facility] [address] [id number] [address] [place] [phone] Nov, [facility] [address] [id number] [address] [place] [id number] Oct, [facility] [address] [id number] [address] [place] [address], [place] [address] Oct, [facility] [address] [id number] [address] [place] [address], [place] [address] Sep, [facility] [address] [id number] [address] [place] [address], [place] [address] Sep, [facility] [address] [id number] [address] [place] [address], [place] [address] Sep, [facility] [address] [id number] [address] [place] [address], [place] [address] Sep, [facility] [address] [id number] [address] [place] [address], [place] [address] Sep, [facility] [address] [id number] [address] [place] [address], [place] [address] Sep, [facility] [address] [id number] [address] [place] [address], [place] [address] Aug, [facility] [address] [id number] [address] [place] [address], [place] [address] Aug, [facility] [address] [id number] [address] [place] [address], [place] [address] Aug, [facility] [address] [id number] [address] [place] [address], [place] [address] Aug, [facility] [address] [id number] [address] [place] [address], [place] [address] Jul, [facility] [address] [id number] [address] [place] [address], [place] [address] Jul, [facility] [address] [id number] [address] [place] [address], [place] [address] Jul, [facility] [address] [id number] [address] [place] [address], [place] [address] Jul, [facility] [address] [id number] [address] [place] [address], [place] [address] Jul, [facility] [address] [id number] [address] [place] [address], [place] [address] Jul, [facility] [address] [id number] [address] [place] [address], [place] [address] Jul, [facility] [address] [id number] [address] [place] [address], [place] [address] Jul, [facility] [address] [id number] [address] [place] [address], [place] [address] Jul, [facility] [address] [id number] [address] [place] [address], [place] [address] Jun, [facility] [address] [id number] [address] [place] [address], [place] [address] 15 Jun, 2014 [facility] [address] [id number] [address] [place] [address], [place] [address] 15 Jun, 2014 [facility] [address] [id number] [address] [place] [address], [place] [address] 25 Sep, 2013 [facility] [address] [id number] [address] [place] [address], [place] [id number] 25 May, 2013 [facility] [address] [id number] [address] [place] [address], [place] [address] 24 Sep, 2013 [facility] [address] [id number] [address] [place] [address], [place] [address] 24 Sep, 2013 [facility] [address] [id number] [address] [place] [address], [place] [address] 24 Sep, 2013 [facility] [address] [id number] [address] [place] [address], [place] [address] 24 Sep, 2013 [facility] [address] [id number] [address] [place] [address], [place] [address] 19 Sep, 2013 [facility] [address] [id number] [address] [place] [address], [place] [address] 19 Sep, 2013 [facility] [address] [id number] [address] [place] [phone] May, 2013 [facility] [address] [id number] [address] [place] [id number] May, 2013 [facility] [address] [id number] [address] [place] [phone] May, 2013 [facility] [address] [id number] [address] [place] [phone] May, 2013 [facility] [address] [id number] [address] [place] [phone] May, 2013 [facility] [address] [id number] [address] [place] [phone] May, 2013 [facility] [address] [id number] [address] [place] [phone] May, 2013 [facility] [address] [id number] [address] [place] [id number] May, 2013 [facility] [address] [id number] [address] [place] [phone] Apr, [facility] [address] [id number] [address] [place] [phone] Apr, [facility] [address] [id number] [address] [place] [phone] Aug, [facility] [address] [id number] [address] [place] [phone] Jul, IMMUNIZATIONS No Known Immunizations SOCIAL HISTORY Never Assessed REASON FOR VISIT Congestion-CarleyleachMA, Chest pain, fever, headaches for the last four days, S hortness of breath PLAN OF CARE Activity Details Follow Up 3 Months Reason:Chronic pain VITAL SIGNS Height 66 in 2017-10-27 Weight 146.3 lbs 2017-10-27 Temperature 97.6 degrees Fahrenheit 2017-10-27 Heart Rate 90 bpm 2017-10-27 Respiratory Rate 20 2017-10-27 BMI 23.61 kg/m2 2017-10-27 Blood pressure systolic 122 mmHg 2017-10-27 Blood pressure diastolic 88 mmHg 2017-10-27 MEDICATIONS Medication Instructions Dosage Frequency Start Date End Date Duration S rogelious Cyclobenzaprine HCl 10 mg Orally Three times a day as needed 1 tablet 90 Active ProAir HFA 108 (90 Base) MCG/ACT Inhalation every 4 hrs 2 puffs as needed 4h Mar, Active OxyContin 15 mg Orally every 12 hrs 1 tablet 12h 17 Sep, 2017 28 days Active tylenol Active Leflunomide 20 MG Orally Once a day 1 tablet 24h Active Ibuprofen 200 MG Orally every 4-6 hours as needed 2 tablets Not-Taking Omeprazole 40 mg Orally Once a day 1 capsule 24h Jul, 90 days Active Gabapentin 800 MG Orally Three times a day 1 tablet 8h 90 days Active Cymbalta 60 mg Orally Once a day 1 capsule 24h Apr, 90 days Active Bystolic 10 mg Orally 2 times a day 1 tablet 12h 90 days Active Dulcolax 10 MG Rectal Once a day 1 suppository as needed 24h Not-Taking Senokot S 8.6-50 MG Orally 2 times a day 2 tablets 12h Not-Taking PredniSONE 50 mg Orally daily One 24h Oct, Oct, 5 days Active Azithromycin 250 MG Orally Once a day 2 tablets on the fi rst day, then 1 tablet daily for 4 days 24h Oct, Oct, 5 day(s) Active Tylenol Arthritis Pain by oral route 2 times a day 2tablets 12h Active Ipratropium-Albuterol 0.5-2.5 (3) MG/3ML Inhalation every 6 hrs 3 ml as needed 6h Active Docusate Sodium 100 MG Orally twice a day 1 capsule as needed 12h Not-Taking Symbicort 160-4.5 MCG/ACT Inhalation Twice a day 2 puffs 12h Active Simvastatin 40 mg Orally Once a day 1 tablet in the evening 24h Mar, Not-Taking RESULTS No Results PROCEDURES Procedure Date Ordered Result Body Site INFLUENZA ASSAY W/OPTIC Oct 27, 2017 [facility] Oct [facility], 2017 [facility] VISIT ESTABLISHED PATIENT Oct 27, 2017 No Charge Oct 27, 2017 VENIPUNCT, ROUTINE* Oct 27, 2017 INSTRUCTIONS MEDICATIONS ADMINISTERED No Known Medications [...]
--- OUTSIDE RECORDS SUMMARY | 2020-02-27 15:52 | XMS REPORT ---
Author Author Beba CORBIN [facility] Address [address] [place] [address] Care Team Providers Care Provider Scribe Name Role Phone EMERALDYOGESH JEFFERSY Unavailable PROBLEMS Type Condition ICD9-CM Code CCH14-CX Code Onset Dates Condition S tatus SNOMED Code Problem Colon wall thickening K63.9 Active 714220772 Problem Mild persistent asthma without complication J45.30 Active 480346374 Problem Osteoporosis M81.0 Active 1382944 6 Problem Generalized anxiety disorder F41.1 A ctive 33069679 Problem Severe episode of recurrent major depressive disorder, without psychotic features F33.2 Active 39942587 Problem Moderate persistent asthma with acute exacerbation J45.41 Active 348001130297627 Problem Gastroesophageal reflux disease, esophagitis pre sence not specified K21.9 Active 139877803 Problem Asthma exacerbation J45.901 Active 393169512 Problem Chronic pain syndrome G89.4 Active 436538380 Problem Chronic constipation K59.00 Active 791047504 Problem Essential hypertension I10 Active 93474184 Problem Chronic kidney disease, stage 1 N18.1 Active 364939878 Problem Hyperlipidemia, unspecified hyperlipidemia E78.5 Active 38330710 Problem Pernicious anemia D51.0 Active 84 649513 Problem Atrophy of left kidney N26.1 Active 408779306 Problem Vitamin D deficiency E55.9 Active 39968556 Problem Chronic prescription opiate use Z79.899 Active 258287088 Problem Rheumatoid arthritis 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.89 Active 185809932 Problem Bladder wall thickening N32.89 Active 058178642 ALLERGIES Substance Reaction Event Type Date Status [...] PLAN OF CARE Activity Details Follow Up prn, 3 months for chronic pa in Reason: VITAL SIGNS Height 66 in 2016-09-15 Weight 168.2 lbs 2016-09-15 Temperature 98.5 degrees Fahrenheit 2016-09-15 Heart Rate 84 bpm 2016-09-15 Respiratory Rate 20 2016-09-15 Oximetry ambulating w/o oxygen:90 % 2016-09-15 BMI 27.15 kg/m2 2016-09-15 Blood pressure systolic 128 mmHg 2016-09-15 Blood pressure diastolic 82 mmHg 2016-09-15 MEDICATIONS Medication Instructions Dosage Frequency Start Date End Date Duration S tatus Azithromycin 250 MG Orally Once a day x 4 days 1 tablet Active Simvastatin 40 mg Orally Once a day 1 tablet in the evening 24h Mar, 90 days Active Ipratropium-Albuterol 0.5-2.5 (3) MG/3ML Inhalation every 6 hrs 3 ml as needed 6h Active Symbicort 160-4.5 MCG/ACT Inhalation Twice a day 2 puffs 12h Active Linzess 290 MCG Orally Once a day 1 capsule 24h Active OxyContin 15 MG Orally every 12 hrs 1 tablet 12h Jul, 28 days Active Tessalon Perles 100 MG Orally Three times a day 1 capsule as needed 8h Aug, Active PredniSONE 20 mg Orally 2 tabs qdx 2d, 1 tab qdx2d, 1/2 t ab qdx2 days as directed Aug, Active Gabapentin 900 MG Orally Three times a day 1 capsule 8h 08 May, 201 5 90 days Active Cyclobenzaprine HCl 10 mg Orally Three times a day as needed 1 tablet Dec, 90 days Active Omeprazole 40 mg Orally Once a day 1 capsule 24h Jul, 90 days Active Cefpodoxime Proxetil 200 MG Orally every 12 hrs 1 tablet 12h Active Bystolic 10 mg Orally 2 times a day 1 tablet 12h 90 days Active Tylenol Arthritis Pain by oral route 2 times a day 2tablets 12h Active RESULTS Name Result Date Reference Range PDF Report 2016-09-15 PDF Report1 LCLS PROTEIN E-PHORESIS, SERUM 2016-09-15 Albumin 3.2 2.9-4.4 Saipx-9-Pvugyqzg 0.2 0.0-0.4 Lorcb-6-Pwkjsyyb 1.1 0.4-1.0 Beta Globulin 1.0 0.7-1.3 Gamma Globulin 0.6 0.4-1.8 M-Sonny Not Observed Not Observed Globulin, Total 2.8 2.2-3.9 A/G Ratio 1.1 0.7-1.7 Please note: CCP ANTIBODY 2016-09-15 CCP Antibodies IgG/IgA 7 0-19 CBC 2016-09-15 WBC 16.1 3.4-10.8 RBC 4.48 3.77-5.28 Hemoglobin 13.0 11.1-15.9 Hematocrit 39.1 34.0-46.6 MCV 87 79-97 MCH 29.0 26.6-33.0 MCHC 33.2 31.5-35.7 RDW 14.9 12.3-15.4 Platelets 282 150-379 Neutrophils 88 Lymphs 5 Monocytes 6 Eos 0 Basos 0 Neutrophils (Absolute) 14.1 1.4-7.0 Lymphs (Absolute) 0.7 0.7-3.1 Monocytes(Absolute) 0.9 0.1-0.9 Eos (Absolute) 0.1 0.0-0.4 Baso (Absolute) 0.0 0.0-0.2 Immature Granulocytes 1 Immature Grans (Abs) 0.2 0.0-0.1 ESR/SED RATE 2016-09-15 Sedimentation Rate-Westergren 34 0- 32 RA (RHEUMATOID) FACTOR 2016-09-15 RA Latex Turbid. 10.5 0.0-13.9 CRP 2016-09-15 C-Reactive Protein, Quant 5.6 0.0-4. 9 DAMARIS 2016-09-15 Antinuclear Antibodies, IFA Negative CMP 2016-09-15 Glucose, Serum 103 65-99 BUN 21 6-24 Creatinine, Serum 0.91 0.57-1.00 eGFR If NonAfricn Am 75 >59 eGFR If Africn Am 87 >59 BUN/Creatinine Ratio 23 9-23 Sodium, Serum 140 134-144 Potassium, Serum 3.9 3.5-5.2 Chloride, Serum 103 96-106 Carbon Dioxide, Total 18 18-29 Calcium, Serum 8.8 8.7-10.2 Protein, Total, Serum 6.0 6.0-8.5 Albumin, Serum 3.6 3.5-5.5 Globulin, Total 2.4 1.5-4.5 A/G Ratio 1.5 1.1-2.5 Bilirubin, Total 0.3 0.0-1.2 Alkaline Phosphatase, S 60 39-117 AST (SGOT) 37 0-40 ALT (SGPT) 41 0-32 HEPATITIS PROFILE 2016-09-15 Hep A Ab, IgM Negative Negative HBsAg Screen Negative Negative Hep B Core Ab, IgM Negative Negative Hep C Virus Ab <0.1 0.0-0.9 PROCEDURES Procedure Date Ordered Related Diagnosis Body Site MEASURE BLOOD OXYGEN LEVEL Sep 15, 2016 [facility] VISIT ESTABLISHED PATIENT Sep 15, 2016 VENIPUNCT, ROUTINE* Sep 15, 2016 Office Visit, Est Pt., Level 3 Sep 15, 2016 [facility] Sep 15, 2016 IMMUNIZATIONS No Known Immunizations
--- OUTSIDE RECORDS SUMMARY | 2020-02-27 15:52 | XMS REPORT ---
Author Author Beba CORBIN [facility] Address [address] [place] [address] Care Team Providers Care Suit Attendant Name Role Phone EMERALDSTUARTEDWARD Unavailable PROBLEMS Type Condition ICD9-CM Code BKP58-DI Code Onset Dates Condition S tatus SNOMED Code Problem Colon wall thickening K63.9 Active 081769295 Problem Mild persistent asthma without complication J45.30 Active 800411907 Problem Osteoporosis M81.0 Active 8866675 6 Problem Generalized anxiety disorder F41.1 A ctive 96795435 Problem Severe episode of recurrent major depressive disorder, without psychotic features F33.2 Active 11492449 Problem Moderate persistent asthma with acute exacerbation J45.41 Active 352953206986747 Problem Gastroesophageal reflux disease, esophagitis pre sence not specified K21.9 Active 542060958 Problem Asthma exacerbation J45.901 Active 337773390 Problem Chronic pain syndrome G89.4 Active 016367336 Problem Chronic constipation K59.00 Active 895501444 Problem Essential hypertension I10 Active 92989985 Problem Chronic kidney disease, stage 1 N18.1 Active 682834124 Problem Hyperlipidemia, unspecified hyperlipidemia E78.5 Active 83789612 Problem Pernicious anemia D51.0 Active 84 146518 Problem Atrophy of left kidney N26.1 Active 137251498 Problem Vitamin D deficiency E55.9 Active 60100767 Problem Chronic prescription opiate use Z79.899 Active 536109208 Problem 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
--- OUTSIDE RECORDS SUMMARY | 2020-02-27 15:52 | XMS REPORT ---
Author Author Beba CORBIN [facility] Address [address] [place] [address] Care Team Providers Care Celluloid Trimmer Name Role Phone EMERALDEDWARD JEFFERS Unavailable PROBLEMS Type Condition ICD9-CM Code [id number] Code Onset Dates Condition S tatus SNOMED Code Problem Colon wall thickening K63.9 Active 314230641 Problem Mild persistent asthma without complication J45.30 Active 761971507 Problem Osteoporosis M81.0 Active 4913571 6 Problem Generalized anxiety disorder F41.1 A ctive 12085554 Problem Severe episode of recurrent major depressive disorder, without psychotic features F33.2 Active 82875962 Problem Moderate persistent asthma with acute exacerbation J45.41 Active 801498205393182 Problem Gastroesophageal reflux disease, esophagitis pre sence not specified K21.9 Active 764906035 Problem Asthma exacerbation J45.901 Active 055116962 Problem Chronic pain syndrome G89.4 Active 026943461 Problem Chronic constipation K59.00 Active 331445151 Problem Essential hypertension I10 Active 90139742 Problem Chronic kidney disease, stage 1 N18.1 Active 994337595 Problem Hyperlipidemia, unspecified hyperlipidemia E78.5 Active 93302229 Problem Pernicious anemia D51.0 Active 84 936292 Problem Atrophy of left kidney N26.1 Active 690711429 Problem Vitamin D deficiency E55.9 Active 56103178 Problem Chronic prescription opiate use Z79.899 Active 845509277 Problem Rheumatoid arthritis involvi ng multiple sites with positive rheumatoid factor M05.89 Active 652596411 Problem Bladder wall thickening N32.89 Active 618574805 ALLERGIES No Information ENCOUNTERS Encounter Location Date Diagnosis [facility] [address] [facility] [id number] [address] [place] [address] Mar, [facility] [address] [facility] [id number] [address] [place] [address] January, [place] [address] [place] [address] January, Moderate persistent asthma w ith acute exacerbation J45.41 [place] [address] [address] [place] [id number] [address] [place] [address] January, Chronic pain syndrome G89.4 [place] [address] [address] [place] [id number] [address] [place] [address] 14 Jan, 2018 Tachycardia R00.0 and Modera te persistent asthma with acute exacerbation J45.41 [place] [address] [address] 11 Jan, 2018 Tachycardia R00.0 ; Moderate persistent asthma with acute exacerbation J45.41 ; Gastroesophageal reflux disease, esophagitis presence not specified K21.9 ; Hyperlipidemia, unspecified hyperlipidemia E78.5 and Chronic pain syndrome G89.4 [place] [address] [address] Dec, Medicare annual wellness vis it, initial [...] immunization Z23 and Chronic pain syndrome G89.4 [place] [address] [place] [address] Dec, Chronic pain syndrome G89.4 [place] [address] [address] [place] [id number] [address] [place] [address] Dec, [place] [address] [address] [place] [id number] [address] [place] [address] Nov, [place] [address] [address] [place] [id number] [address] [place] [address] Nov, Chronic pain syndrome G89.4 [facility] [address] [facility] [id number] [address] [place] [address] Oct, Chronic pain syndrome G89.4 [place] [address] [address] [place] [id number] [address] [place] [address] 08 Oct, 2017 Chronic kidney disease, stag e 1 N18.1 [place] [address] [address] Oct, Chronic prescription opiate use Z79.899 ; Cough R05 ; Asthma exacerbation J45.901 ; Elevated liver enzymes R74.8 ; Rheumatoid arthritis involving multiple sites with positive rheumatoid factor M05.89 and Chronic pain syndrome G89.4 [place] [address] [address] [place] [id number] [place] [address] Sep, Chronic pain syndrome G89.4 [place] [address] [address] Sep, [place] [address] [address] Aug, Acute bronchitis, unspecifie d organism J20.9 [place] [address] [address] [place] [id number] [place] [address] Aug, Chronic pain syndrome G89.4 [place] [address] [address] [place] [id number] [address] [place] [address] Jul, Chronic pain syndrome G89.4 [place] [address] [address] [place] [id number] [address] [place] [address] Jun, Chronic pain syndrome G89.4 [place] [address] [address] [place] [id number] [address] [place] [address] May, Rheumatoid arthritis involvi ng multiple sites with positive rheumatoid factor M05.89 [place] [address] [address] [place] [id number] [address] [place] [address] May, Gastroesophageal reflux dise ase, esophagitis presence not specified K21.9 and Chronic pain syndrome G89.4 [facility] [address] [facility] [id number] [address] [place] [address] May, [facility] [address] [place] [id number] [address] [place] [address] May, Esophageal candidiasis B37.8 1 and Chronic kidney disease, stage 1 N18.1 [facility] [address] [facility] [id number] [address] [place] [address] May, Chronic kidney disease, stag e 1 N18.1 [facility] [address] [place] [id number] [address] [place] [address] May, Cough R05 ; Fever, unspecifi ed fever cause R50.9 ; Rheumatoid arthritis involving multiple sites with positive rheumatoid factor M05.89 and Chronic prescription opiate use Z79.899 [facility] [address] [place] [id number] [address] [place] [address] Apr, [place] [address] [address] [place] [id number] [place] [address] Apr, Cough R05 [place] [address] [address] [place] [id number] [place] [address] Apr, Asthma exacerbation J45.901 [place] [address] [address] [place] [id number] [address] [place] [address] Apr, [facility] [address] [place] [id number] [address] [place] [address] Apr, Generalized anxiety disorder F41.1 and Severe episode of recurrent major depressive disorder, without psychotic features F33.2 [facility] [address] [place] [id number] [address] [place] [address] Mar, [place] [address] [place] [id number] [address] [place] [address] Feb, Chronic pain syndrome G89.4 [facility] [address] [place] [id number] [address] [place] [address] Feb, Acute non-recurrent maxillar y sinusitis J01.00 [facility] [address] [id number] [address] [place] [address] Feb, Acute non-recurrent frontal sinusitis J01.10 [facility] [address] [id number] [address] [place] [address] Feb, Chronic pain syndrome G89.4 [facility] [address] [id number] [address] [place] [address] January, Acute cystitis with hematuri a N30.01 [facility] [address] [id number] [address] [place] [address] January, Acute cystitis with hematuri a N30.01 ; Dysuria R30.0 and Moderate persistent asthma with acute exacerbation J45.41 [place] [address] [facility] [id number] [address] [place] [address] January, [place] [address] [address] [facility] [id number] [address] [place] [address] January, Chronic pain syndrome G89.4 [facility] [address] [id number] [address] [place] [address] January, Asthma exacerbation J45.901 [facility] [address] [facility] [id number] [address] [place] [address] January, Asthma exacerbation J45.901 [facility] [address] [facility] [id number] [address] [place] [address] Dec, Cough R05 ; Numbness in both hands R20.0 ; Ground glass opacity present on imaging of lung R91.8 ; Hypoxia R09.02 and Asthma exacerbation J45.901 [place] [address] [facility] [id number] [address] [place] [address] Dec, Chronic pain syndrome G89.4 [facility] [address] [facility] [id number] [address] [place] [address] Nov, Chronic prescription opiate use Z79.899 ; Rheumatoid arthritis involving multiple sites with positive rheumatoid factor M05.89 ; Moderate persistent asthma with acute exacerbation J45.41 ; Pneumonia of right lower lobe due to infectious organism J18.1 ; Chronic pain syndrome G89.4 ; Gastroesophageal reflux disease, esophagitis presence not specified K21.9 and Hyperlipidemia, unspecified hyperlipidemia E78.5 [place] [address] [address] Nov, Rheumatoid arthritis involvi ng multiple sites with positive rheumatoid factor M05.89 [place] [address] [address] Oct, [address] [address] Oct, Essential hypertension I10 [address] [address] Sep, Hypoxia R09.02 [address] Ground gl ass opacity present on imaging of lung R91.8 [place] [address] [address] Sep, Moderate persistent asthma w ith acute exacerbation J45.41 [facility] [address] [id number] Sep, [place] [address] [address] Sep, Chronic constipation K59.00 and Moderate persistent asthma with acute exacerbation J45.41 [place] [address] [address] [place] [id number] [address] [place] [address] Sep, Moderate persistent asthma w ith acute exacerbation J45.41 [place] [address] [address] Aug, [place] [address] [address] Aug, [place] [address] [address] Aug, [facility] [address] [facility] [id number] [address] [place] [address] Aug, Rheumatoid arthritis involvi ng multiple sites with positive rheumatoid factor M05.89 ; Essential hypertension I10 ; Hyperlipidemia, unspecified hyperlipidemia E78.5 ; Chronic constipation K59.00 and Moderate persistent asthma with acute exacerbation J45.41 [facility] [address] [facility] [id number] [address] [place] [address] Aug, Bronchitis J40 [facility] [address] [facility] [id number] [address] [place] [address] Aug, Rheumatoid arthritis involvi ng multiple sites with positive rheumatoid factor M05.89 [place] [address] [address] [place] [id number] [address] [place] [address] Aug, Pharyngitis, unspecified pablito ology J02.9 and Acute nasopharyngitis J00 [place] [address] [address] [place] [id number] [address] [place] [address] Aug, [facility] [address] [place] [id number] [address] [place] [address] Jul, [facility] [address] [place] [id number] [place] [address] Jul, Rheumatoid arthritis involvi ng multiple sites with positive rheumatoid factor M05.89 ; Essential hypertension I10 ; Hyperlipidemia, unspecified hyperlipidemia E78.5 ; Rash R21 ; Mild persistent asthma with acute exacerbation J45.31 ; Hematuria R31.9 ; Osteoporosis M81.0 and Gastroesophageal reflux disease, esophagitis presence not specified K21.9 [facility] [address] [facility] [id number] [address] [place] [address] Jun, [facility] [address] [place] [id number] [address] [place] [address] Jun, Dysuria R30.0 [facility] [address] [facility] [id number] [address] [place] [address] Jun, Acute non-recurrent maxillar y sinusitis J01.00 and Dysuria R30.0 [facility] [address] [place] [id number] [address] [place] [address] 16 May, 2016 [facility] [address] [facility] [id number] [address] [place] [address] 15 May, 2016 [facility] [address] [place] [id number] [address] [place] [address] Apr, Chronic prescription opiate use Z79.899 and Rheumatoid arthritis involving multiple sites with positive rheumatoid factor M05.89 [facility] [address] [place] [id number] [place] [address] Mar, [facility] [address] [place] [id number] [place] [address] Feb, Dizziness of unknown cause R 42 and Other chronic pain G89.29 [place] [address] [address] [place] [id number] [place] [address] Feb, [facility] [address] [place] [id number] [place] [address] Feb, Shortness of breath R06.02 [place] [address] [address] [place] [id number] [place] [address] January, [facility] [address] [place] [id number] [place] [address] January, Rheumatoid arthritis involvi ng multiple sites with positive rheumatoid factor M05.89 ; Chronic prescription opiate use Z79.899 ; Hyperlipidemia, unspecified hyperlipidemia E78.5 ; Cough R05 ; Exposure to pneumonia Z20.828 ; Diarrhea, unspecified type R19.7 ; Weight loss R63.4 ; Lumbago with sciatica, right side M54.41 and Lumbago with sciatica, left side M54.42 [facility] [address] [place] [id number] [address] [place] [address] Dec, [facility] [address] [place] [id number] [address] [place] [address] 21 Apr, 2016 Bronchitis J40 [facility] [address] [id number] [address] [place] [address] Nov, [facility] [address] [id number] [address] [place] [address] Nov, [facility] [address] [id number] [address] [place] [address] Nov, [facility] [address] [facility] [id number] [address] [place] [address] Nov, Bloody diarrhea R19.7 ; [place] n wall thickening K63.9 ; Shortness of breath R06.02 and Bladder wall thickening N32.[address] [facility] [address] [id number] [address] [place] [id number] 15 Oct, 2015 Dental examination Z01.20 [facility] [address] [id number] [address] [place] [address] 15 Oct, 2015 [facility] [address] [facility] [id number] [address] [place] [address] 15 Oct, 2015 Toothache K08.[address] [facility] [address] [id number] [address] [place] [id number] 11 Oct, 2015 Dental examination Z01.20 [facility] [address] [facility] [id number] [address] [place] [address] 02 Oct, 2015 [facility] [address] [facility] [id number] [address] [place] [address] Sep, [facility] [address] [facility] [id number] [address] [place] [address] 13 Sep, 2015 Burning with urination R30.0 [facility] [address] [facility] [id number] [address] [place] [address] Sep, Hematuria R31.9 ; Rheumatoid arthritis involving multiple sites with positive rheumatoid factor M05.89 and Rheumatoid arthritis flare M06.9 [facility] [address] [facility] [id number] [address] [place] [address] Aug, Hyperlipidemia, unspecified hyperlipidemia E78.5 and Hematuria R31.9 [facility] [address] [id number] [address] [place] [address] Aug, Hematuria R31.9 ; Chronic ki dney disease, stage 1 N18.1 and Hyperlipidemia, unspecified hyperlipidemia E78.5 [place] [address] [facility] [id number] [address] [place] [address] Aug, Rheumatoid arthritis involvi ng multiple sites with positive rheumatoid factor M05.89 ; Asthma exacerbation J45.901 ; Hematuria R31.9 ; Hyperlipidemia, unspecified hyperlipidemia E78.5 and Chronic kidney disease, stage 1 N18.1 [place] [address] [id number] [address] [place] [address] Aug, [place] [address] [facility] [id number] [address] [place] [address] Jul, [place] [address] [facility] [id number] [address] [place] [address] Jul, Lumbosacral radiculopathy M5 4.17 [place] [address] [facility] [id number] [address] [place] [address] Jul, [place] [address] [facility] [id number] [address] [place] [address] Jun, Rheumatoid arthritis involvi ng multiple sites with positive rheumatoid factor M05.89 ; Hyperlipidemia, unspecified hyperlipidemia E78.5 ; Lumbosacral radiculopathy M54.17 ; Carpal tunnel syndrome, right upper limb G56.01 and Carpal tunnel syndrome, left upper limb G56.02 [place] [address] [facility] [id number] [address] [place] [address] Jun, [place] [address] [place] [id number] [address] [place] [address] May, Lumbar radicular pain 724.4 and Dysuria 788.1 [place] [address] [facility] [id number] [address] [place] [address] May, Rheumatoid arthritis 714.0 ; Lumbar radicular pain 724.4 ; Burn 949.0 and Thoracic back pain 724.1 [facility] [address] [facility] [id number] [address] [place] [address] May, [facility] [address] [facility] [id number] [address] [place] [address] May, [facility] [address] [place] [id number] [address] [place] [address] Apr, [facility] [address] [facility] [id number] [address] [place] [address] Mar, Hyperlipidemia 272.4 [facility] [address] [place] [id number] [address] [place] [address] Mar, [facility] [address] [place] [id number] [address] [place] [address] Mar, [facility] [address] [place] [id number] [address] [place] [address] Mar, Diarrhea 787.91 ; Chronic ki dney disease, unspecified 585.9 ; Hyperlipidemia 272.4 and Asthma 493.90 [facility] [address] [place] [id number] [address] [place] [address] Mar, [facility] [address] [place] [id number] [address] [place] [address] Mar, Gastroenteritis 558.9 [facility] [address] [facility] [id number] [address] [place] [address] Feb, [facility] [address] [place] [id number] [address] [place] [address] January, [facility] [address] [place] [id number] [address] [place] [address] January, [facility] [address] [place] [id number] [address] [place] [address] Dec, [facility] [address] [id number] [address] [place] [address], [place] [address] Dec, [facility] [address] [id number] [address] [place] [address], [place] [address] Nov, [facility] [address] [id number] [address] [place] [address], [place] [address] Nov, [facility] [address] [id number] [address] [place] [address], [place] [address] Nov, [facility] [address] [id number] [address] [place] [address], [place] [address] Nov, [facility] [address] [id number] [address] [place] [address], [place] [address] Nov, [facility] [address] [id number] [address] [place] [address], [place] [address] Nov, [facility] [address] [id number] [address] [place] [address], [place] [address] Oct, [facility] [address] [id number] [address] [place] [address], [place] [address] Oct, [facility] [address] [id number] [address] [place] [address], [place] [address] Sep, [facility] [address] [id number] [address] [place] [address], [place] [address] Sep, [facility] [address] [id number] [address] [place] [address], [place] [address] Sep, [facility] [address] [id number] [address] [place] [address], [place] [address] Sep, [facility] [address] [id number] [address] [place] [address], [place] [address] Sep, [facility] [address] [id number] [address] [place] [address], [place] [address] Sep, [facility] [address] [id number] [address] [place] [address], [place] [address] Aug, [facility] [address] [id number] [address] [place] [address], [place] [address] Aug, [facility] [address] [id number] [address] [place] [address], [place] [address] Aug, [facility] [address] [id number] [address] [place] [address], [place] [address] Aug, [facility] [address] [id number] [address] [place] [address], [place] [address] Jul, [facility] [address] [id number] [address] [place] [address], [place] [address] Jul, [facility] [address] [id number] [address] [place] [address], [place] [address] Jul, [facility] [address] [id number] [address] [place] [address], [place] [address] Jul, [facility] [address] [id number] [address] [place] [address], [place] [address] Jul, [facility] [address] [id number] [address] [place] [address], [place] [address] Jul, [facility] [address] [id number] [address] [place] [address], [place] [address] Jul, [facility] [address] [id number] [address] [place] [address], [place] [address] Jul, [facility] [address] [id number] [address] [place] [id number] Jul, [facility] [address] [id number] [address] [place] [address], [place] [address] 31 Jun, 2014 [facility] [address] [id number] [address] [place] [address], [place] [address] 15 Jun, 2014 [facility] [address] [id number] [address] [place] [address], [place] [address] 15 Jun, 2014 [facility] [address] [id number] [facility] [place] [place] [address] 25 Sep, 2013 [facility] [address] [id number] [address] [place] [address], [place] [address] 25 Sep, 2013 [facility] [address] [id number] [facility] [place] [place] [address] 24 Sep, 2013 [facility] [address] [id number] [address] [place] [address], [place] [id number] 24 Sep, 2013 [facility] [address] [id number] [address] [place] [address], [place] [id number] 24 Sep, 2013 [facility] [address] [id number] [address] [place] [address], [place] [phone] 24 Sep, 2013 [facility] [address] [id number] [address] [place] [address], [place] [id number] 19 Sep, 2013 [facility] [address] [id number] [address] [place] [address], [place] [phone] 19 Sep, 2013 [facility] [address] [id number] [address] [place] [address], [place] [address] 11 Sep, 2013 [facility] [address] [id number] [address] [place] [address], [place] [id number] 11 Sep, 2013 [facility] [address] [id number] [address] [place] [address], [place] [address] 11 Sep, 2013 [facility] [address] [id number] [address] [place] [address], [place] [id number] 11 Sep, 2013 [facility] [address] [id number] [address] [place] [address], [place] [phone] 10 Sep, 2013 [facility] [address] [id number] [address] [place] [address], [place] [phone] 09 Sep, 2013 [facility] [address] [id number] [address] [place] [address], [place] [address] 09 Sep, 2013 [facility] [address] [id number] [address] [place] [address], [place] [phone] May, [facility] [address] [facility] [id number] [address] [place] [phone] Apr, [facility] [address] [facility] [id number] [address] [place] [phone] Apr, [facility] [address] [facility] [id number] [address] [place] [phone] Aug, [facility] [address] [facility] [id number] [address] [place] [phone] Jul, IMMUNIZATIONS No Known Immunizations SOCIAL HISTORY Never Assessed REASON FOR VISIT Controlled Med Refill PLAN OF CARE VITAL SIGNS MEDICATIONS Medication Instructions Dosage Frequency Start Date End Date Duration S farooq OxyContin 15 mg Orally every 12 hrs 1 tablet 12h Aug, 28 days Active RESULTS No Results PROCEDURES [...]
--- OUTSIDE RECORDS SUMMARY | 2020-02-27 15:52 | XMS REPORT ---
Author Author Beba CORBIN [facility] Address [address] [place] [address] Care Team Providers Care Dough Puncher Name Role Phone EMERALDSTUARTEDWARD Unavailable PROBLEMS Type Condition ICD9-CM Code JBP53-NC Code Onset Dates Condition S tatus SNOMED Code Problem Colon wall thickening K63.9 Active 189845719 Problem Mild persistent asthma without complication J45.30 Active 800340019 Problem Osteoporosis M81.0 Active 8986725 6 Problem Generalized anxiety disorder F41.1 A ctive 96191392 Problem Severe episode of recurrent major depressive disorder, without psychotic features F33.2 Active 63146587 Problem Moderate persistent asthma with acute exacerbation J45.41 Active 430279182154028 Problem Gastroesophageal reflux disease, esophagitis pre sence not specified K21.9 Active 328085760 Problem Asthma exacerbation J45.901 Active 048450407 Problem Chronic pain syndrome G89.4 Active 558556280 Problem Chronic constipation K59.00 Active 828134523 Problem Essential hypertension I10 Active 79734285 Problem Chronic kidney disease, stage 1 N18.1 Active 741081574 Problem Hyperlipidemia, unspecified hyperlipidemia E78.5 Active 44963687 Problem Pernicious anemia D51.0 Active 84 629376 Problem Atrophy of left kidney N26.1 Active 767294529 Problem Vitamin D deficiency E55.9 Active 78847384 Problem Chronic prescription opiate use Z79.899 Active 197738895 Problem Rheumatoid arthritis involvi ng multiple sites with positive rheumatoid factor M05.89 Active 498801490 Problem Bladder wall thickening N32.89 Active 821274810 ALLERGIES Substance Reaction Event Type Date Status Penicillin V Potassium Cannot tolerate Oral PCN. St ates she can tolerate injections Drug Allergy Apr, Active Orencia Unknown Drug Allergy Apr, Active Cipro Unknown Drug Allergy Apr, Active Codeine Unknown Drug Allergy Apr, Active Ivp Dye anaphylaxis Non Drug Allergy Apr, Active ENCOUNTERS Encounter Location Date Diagnosis [facility] [address] [facility] [id number] [address] [place] [phone] Dec, [facility] [address] [address] Nov, [facility] [address] [place] [id number] [address] [place] [phone] Nov, Chronic pain syndrome G89.4 [facility] [address] [place] [id number] [place] [phone] Oct, Chronic pain syndrome G89.4 [facility] [address] [address] Oct, Chronic kidney disease, stag e 1 N18.1 [facility] [address] [address] Oct, Chronic prescription opiate use Z79.899 ; Cough R05 ; Asthma exacerbation J45.901 ; Elevated liver enzymes R74.8 ; Rheumatoid arthritis involving multiple sites with positive rheumatoid factor M05.89 and Chronic pain syndrome G89.4 [facility] [address] [place] [id number] [address] [place] [phone] Sep, Chronic pain syndrome G89.4 [facility] [address] [place] [id number] [address] [place] [phone] Sep, [facility] [address] [place] [id number] [address] [place] [address] Aug, Acute bronchitis, unspecifie d organism J20.9 [facility] [address] [facility] [id number] [address] [place] [address] Aug, Chronic pain syndrome G89.4 [facility] [address] [place] [id number] [address] [place] [phone] Jul, Chronic pain syndrome G89.4 [facility] [address] [place] [id number] [address] [place] [phone] Jun, Chronic pain syndrome G89.4 [facility] [address] [facility] [id number] [address] [place] [phone] 29 May, 2017 Rheumatoid arthritis involvi ng multiple sites with positive rheumatoid factor M05.89 [facility] [address] [facility] [id number] [address] [place] [phone] 26 May, 2017 Gastroesophageal reflux dise ase, esophagitis presence not specified K21.9 and Chronic pain syndrome G89.4 [facility] [address] [facility] [id number] [address] [place] [phone] May, [place] [address] [place] [id number] [place] [address] 12 May, 2017 Esophageal candidiasis B37.8 1 and Chronic kidney disease, stage 1 N18.1 [place] [address] [place] [id number] [place] [phone] 11 May, 2017 Chronic kidney disease, stag e 1 N18.1 [place] [address] [place] [id number] [address] [place] [phone] 05 May, 2017 Cough R05 ; Fever, unspecifi ed fever cause R50.9 ; Rheumatoid arthritis involving multiple sites with positive rheumatoid factor M05.89 and Chronic prescription opiate use Z79.899 [place] [address] [place] [id number] [address] [place] [phone] Apr, [place] [address] [place] [id number] [address] [place] [address] Apr, Cough R05 [place] [address] [facility] [id number] [address] [place] [address] Apr, Asthma exacerbation J45.901 [place] [address] [place] [id number] [address] [place] [phone] Apr, [place] [address] [place] [id number] [address] [place] [phone] 08 Apr, 2017 Generalized anxiety disorder F41.1 and Severe episode of recurrent major depressive disorder, without psychotic features F33.2 [place] [address] [id number] [address] [place] [phone] Mar, [place] [address] [facility] [id number] [address] [place] [phone] Feb, Chronic pain syndrome G89.4 [place] [address] [facility] [id number] [address] [place] [address] Feb, Acute non-recurrent maxillar y sinusitis J01.00 [place] [address] [id number] [address] [place] [address] Feb, Acute non-recurrent frontal sinusitis J01.10 [place] [address] [facility] [id number] [address] [place] [phone] Feb, Chronic pain syndrome G89.4 [place] [address] [facility] [id number] [address] [place] [address] January, Acute cystitis with hematuri a N30.01 [place] [address] [facility] [id number] [address] [place] [address] January, Acute cystitis with hematuri a N30.01 ; Dysuria R30.0 and Moderate persistent asthma with acute exacerbation J45.41 [place] [address] [facility] [id number] [address] [place] [phone] January, [place] [address] [facility] [id number] [address] [place] [phone] January, Chronic pain syndrome G89.4 [place] [address] [facility] [id number] [address] [place] [address] January, Asthma exacerbation J45.901 [place] [address] [facility] [id number] [address] [place] [address] January, Asthma exacerbation J45.901 [place] [address] [facility] [id number] [address] [place] [phone] Dec, Cough R05 ; Numbness in both hands R20.0 ; Ground glass opacity present on imaging of lung R91.8 ; Hypoxia R09.02 and Asthma exacerbation J45.901 [place] [id number] [place] [address] Dec, Chronic pain syndrome G89.4 [place] [address] [place] [id number] [place] [address] Nov, Chronic prescription opiate use Z79.899 ; Rheumatoid arthritis involving multiple sites with positive rheumatoid factor M05.89 ; Moderate persistent asthma with acute exacerbation J45.41 ; Pneumonia of right lower lobe due to infectious organism J18.1 ; Chronic pain syndrome G89.4 ; Gastroesophageal reflux disease, esophagitis presence not specified K21.9 and Hyperlipidemia, unspecified hyperlipidemia E78.5 [place] [address] [place] [id number] [place] [address] Nov, Rheumatoid arthritis involvi ng multiple sites with positive rheumatoid factor M05.89 [place] [address] [place] [id number] [place] [phone] Oct, [place] [address] [place] [id number] [place] [address] Oct, Essential hypertension I10 [place] [id number] [address] [place] [address] Sep, Hypoxia R09.02 and Ground gl ass opacity present on imaging of lung R91.8 [place] [id number] [address] [place] [address] Sep, Moderate persistent asthma w ith acute exacerbation J45.41 [facility] [address] [id number] Sep, [place] [address] [place] [id number] [place] [address] Sep, Chronic constipation K59.00 and Moderate persistent asthma with acute exacerbation J45.41 [place] [address] [place] [id number] [place] [phone] Sep, Moderate persistent asthma w ith acute exacerbation J45.41 [facility] [address] [facility] [id number] [address] [place] [phone] Aug, [facility] [address] [facility] [id number] [address] [place] [phone] Aug, [facility] [address] [facility] [id number] [address] [place] [phone] Aug, [facility] [address] [facility] [id number] [address] [place] [address] Aug, Rheumatoid arthritis involvi multiple sites with positive rheumatoid factor M05.89 ; Essential hypertension I10 ; Hyperlipidemia, unspecified hyperlipidemia E78.5 ; Chronic constipation K59.00 and Moderate persistent asthma with acute exacerbation J45.41 [place] [address] [facility] [id number] [address] [place] [phone] Aug, Bronchitis J40 [place] [address] [facility] [id number] [address] [place] [phone] Aug, Rheumatoid arthritis involvi multiple sites with positive rheumatoid factor M05.89 [place] [address] [facility] [id number] [address] [place] [address] Aug, Pharyngitis, unspecified pablito ology J02.9 and Acute nasopharyngitis J00 [place] [address] [facility] [id number] [address] [place] [address] Aug, [place] [address] [facility] [id number] [address] [place] [phone] Jul, [place] [address] [facility] [id number] [address] [place] [phone] Jul, Rheumatoid arthritis involvi ng multiple sites with positive rheumatoid factor M05.89 ; Essential hypertension I10 ; Hyperlipidemia, unspecified hyperlipidemia E78.5 ; Rash R21 ; Mild persistent asthma with acute exacerbation J45.31 ; Hematuria R31.9 ; Osteoporosis M81.0 and Gastroesophageal reflux disease, esophagitis presence not specified K21.9 [facility] [address] [facility] [id number] [address] [place] [phone] 18 Jun, 2016 [facility] [address] [facility] [id number] [address] [place] [id number] 10 Jun, 2016 Dysuria R30.0 [facility] [address] [facility] [id number] [address] [place] [phone] 05 Jun, 2016 Acute non-recurrent maxillar y sinusitis J01.00 and Dysuria R30.0 [facility] [address] [facility] [id number] [address] [place] [phone] 16 May, 2016 [facility] [address] [facility] [id number] [address] [place] [address] May, [facility] [address] [place] [id number] [address] [place] [address] Apr, Chronic prescription opiate use Z79.899 and Rheumatoid arthritis involving multiple sites with positive rheumatoid factor M05.89 [facility] [address] [place] [id number] [place] [address] Mar, [facility] [address] [place] [id number] [place] [phone] Feb, Dizziness of unknown cause R 42 and Other chronic pain G89.29 [place] [address] [place] [id number] [place] [address] Feb, [facility] [address] [place] [id number] [place] [phone] Feb, Shortness of breath R06.02 [facility] [address] [place] [id number] [place] [phone] January, [facility] [address] [place] [id number] [address] [place] [id number] January, Rheumatoid arthritis involvi ng multiple sites with positive rheumatoid factor M05.89 ; Chronic prescription opiate use Z79.899 ; Hyperlipidemia, unspecified hyperlipidemia E78.5 ; Cough R05 ; Exposure to pneumonia Z20.828 ; Diarrhea, unspecified type R19.7 ; Weight loss R63.4 ; Lumbago with sciatica, right side M54.41 and Lumbago with sciatica, left side M54.42 [facility] [address] [id number] [address] [place] [phone] Dec, [facility] [address] [facility] [id number] [address] [place] [address] Dec, Bronchitis J40 [facility] [address] [id number] [address] [place] [phone] Nov, [facility] [address] [id number] [address] [place] [phone] Nov, [facility] [address] [facility] [id number] [address] [place] [phone] Nov, [facility] [address] [facility] [id number] [address] [place] [phone] Nov, Bloody diarrhea R19.7 ; [place] n wall thickening K63.9 ; Shortness of breath R06.02 and Bladder wall thickening N32.89 [facility] [address] [id number] [place] [id number] Oct, Dental examination Z01.20 [facility] [address] [id number] [address] [place] [phone] 15 Oct, 2015 [facility] [address] [id number] [address] [place] [phone] Oct, Toothache K08.8 [facility] [address] [id number] [address] [place] [id number] Oct, Dental examination Z01.20 [facility] [address] [id number] [address] [place] [phone] 02 Oct, 2015 [facility] [address] [id number] [address] [place] [id number] Sep, [facility] [address] [facility] [id number] [address] [place] [id number] 13 Sep, 2015 Burning with urination R30.0 [facility] [address] [id number] [address] [place] [phone] Sep, Hematuria R31.9 ; Rheumatoid arthritis involving multiple sites with positive rheumatoid factor M05.89 and Rheumatoid arthritis flare M06.9 [facility] [address] [facility] [id number] [address] [place] [phone] Aug, Hyperlipidemia, unspecified hyperlipidemia E78.5 and Hematuria R31.9 [facility] [address] [facility] [id number] [address] [place] [phone] Aug, Hematuria R31.9 ; Chronic ki dney disease, stage 1 N18.1 and Hyperlipidemia, unspecified hyperlipidemia E78.5 [place] [address] [facility] [id number] [address] [place] [phone] Aug, Rheumatoid arthritis involvi ng multiple sites with positive rheumatoid factor M05.89 ; Asthma exacerbation J45.901 ; Hematuria R31.9 ; Hyperlipidemia, unspecified hyperlipidemia E78.5 and Chronic kidney disease, stage 1 N18.1 [place] [address] [facility] [id number] [address] [place] [phone] Aug, [facility] [address] [facility] [id number] [address] [place] [phone] Jul, [place] [address] [facility] [id number] [address] [place] [phone] Jul, Lumbosacral radiculopathy M5 4.17 [place] [address] [facility] [id number] [address] [place] [address] Jul, [place] [address] [facility] [id number] [address] [place] [address] Jun, Rheumatoid arthritis involvi ng multiple sites with positive rheumatoid factor M05.89 ; Hyperlipidemia, unspecified hyperlipidemia E78.5 ; Lumbosacral radiculopathy M54.17 ; Carpal tunnel syndrome, right upper limb G56.01 and Carpal tunnel syndrome, left upper limb G56.02 [facility] [address] [id number] [address] [place] [phone] Jun, [facility] [address] [id number] [address] [place] [phone] May, Lumbar radicular pain 724.4 and Dysuria 788.1 [facility] [address] [id number] [address] [place] [phone] May, Rheumatoid arthritis 714.0 ; Lumbar radicular pain 724.4 ; Burn 949.0 and Thoracic back pain 724.1 [facility] [address] [facility] [id number] [address] [place] [phone] May, [facility] [address] [facility] [id number] [address] [place] [phone] May, [facility] [address] [place] [id number] [place] [phone] Apr, [facility] [address] [id number] [address] [place] [phone] Mar, Hyperlipidemia 272.4 [facility] [address] [facility] [id number] [address] [place] [phone] Mar, [facility] [address] [place] [id number] [address] [place] [phone] Mar, [facility] [address] [facility] [id number] [address] [place] [address] Mar, Diarrhea 787.91 ; Chronic ki dney disease, unspecified 585.9 ; Hyperlipidemia 272.4 and Asthma 493.90 [facility] [address] [facility] [id number] [address] [place] [phone] Mar, [facility] [address] [facility] [id number] [address] [place] [phone] Mar, Gastroenteritis 558.9 [facility] [address] [place] [id number] [address] [place] [phone] Feb, [facility] [address] [id number] [address] [place] [address], [place] [address] January, [facility] [address] [id number] [address] [place] [address], [place] [address] January, [facility] [address] [id number] [address] [place] [address], [place] [address] Dec, [facility] [address] [id number] [address] [place] [address], [place] [address] Dec, [facility] [address] [id number] [address] [place] [address], [place] [address] Nov, [facility] [address] [id number] [address] [place] [address], [place] [address] Nov, [facility] [address] [id number] [address] [place] [address], [place] [address] Nov, [facility] [address] [id number] [address] [place] [address], [place] [address] Nov, [facility] [address] [id number] [address] [place] [address], [place] [address] Nov, [facility] [address] [id number] [address] [place] [address], [place] [address] Nov, [facility] [address] [id number] [address] [place] [address], [place] [address] 16 Oct, 2014 [facility] [address] [id number] [address] [place] [address], [place] [address] Oct, [facility] [address] [id number] [address] [place] [address], [place] [address] Sep, [facility] [address] [id number] [address] [place] [address], [place] [address] Sep, [facility] [address] [id number] [address] [place] [address], [place] [address] Sep, [facility] [address] [id number] [address] [place] [address], [place] [address] Sep, [facility] [address] [id number] [address] [place] [address], [place] [address] Sep, [facility] [address] [id number] [address] [place] [address], [place] [address] Sep, [facility] [address] [id number] [address] [place] [address], [place] [address] Aug, [facility] [address] [id number] [address] [place] [address], [place] [address] Aug, [facility] [address] [id number] [address] [place] [address], [place] [address] Aug, [facility] [address] [id number] [address] [place] [address], [place] [address] Aug, [facility] [address] [id number] [address] [place] [address], [place] [address] Jul, [facility] [address] [id number] [address] [place] [address], [place] [address] Jul, [facility] [address] [id number] [address] [place] [address], [place] [address] Jul, [facility] [address] [id number] [address] [place] [address], [place] [address] Jul, [facility] [address] [id number] [address] [place] [address], [place] [address] Jul, [facility] [address] [id number] [address] [place] [address], [place] [address] Jul, [facility] [address] [id number] [address] [place] [address], [place] [address] Jul, [facility] [address] [id number] [address] [place] [address], [place] [address] Jul, [facility] [address] [id number] [place] [address], [place] [address] Jul, [facility] [address] [id number] [address] [place] [address], [place] [address] 31 Jun, 2014 [facility] [address] [id number] [address] [place] [address], [place] [address] 15 Jun, 2014 [facility] [address] [id number] [address] [place] [address], [place] [address] 15 Jun, 2014 [facility] [address] [id number] [address] [place] [address], [place] [address] 25 May, 2013 [facility] [address] [id number] [address] [place] [address], [place] [address] 25 May, 2013 [facility] [address] [id number] [address] [place] [address], [place] [address] 24 May, 2013 [facility] [address] [id number] [address] [place] [address], [place] [address] 24 May, 2013 [facility] [address] [id number] [address] [place] [address], [place] [address] 24 May, 2013 [facility] [address] [id number] [address] [place] [address], [place] [address] 24 May, 2013 [facility] [address] [id number] [address] [place] [address], [place] [address] 19 May, 2013 [facility] [address] [id number] [address] [place] [id number] 19 May, 2013 [facility] [address] [id number] [address] [place] [id number] 11 May, 2013 [facility] [address] [id number] [address] [place] [address], [place] [address] 11 May, 2013 [facility] [address] [id number] [address] [place] [address], [place] [id number] 11 May, 2013 [facility] [address] [id number] [address] [place] [address], [place] [address] 11 May, 2013 [facility] [address] [id number] [address] [place] [phone] May, [facility] [address] [id number] [address] [place] [phone] May, [facility] [address] [id number] [address] [place] [phone] May, [facility] [address] [id number] [address] [place] [phone] May, [facility] [address] [id number] [address] [place] [id number] Apr, [facility] [address] [id number] [address] [place] [phone] Apr, [facility] [address] [id number] [address] [place] [id number] Aug, [facility] [address] [facility] [id number] [address] [place] [phone] Jul, IMMUNIZATIONS No Known Immunizations SOCIAL HISTORY Never Assessed REASON FOR VISIT possible bronchitis---DBennettRN, nonproductive cough, congestion, fever 101.3 PLAN OF CARE Activity Details Follow Up As scheduled Reason: VITAL SIGNS Height 66 in 2017-05-13 Weight 145 lbs 2017-05-13 Temperature 98.2 degrees Fahrenheit 2017-05-13 Heart Rate 70 bpm 2017-05-13 Respiratory Rate 20 2017-05-13 Oximetry 94 % 2017-05-13 BMI 23.40 kg/m2 2017-05-13 Blood pressure systolic 124 mmHg 2017-05-13 Blood pressure diastolic 80 mmHg 2017-05-13 MEDICATIONS Medication Instructions Dosage Frequency Start Date End Date Duration S tatus Gabapentin 600 MG Orally Three times a day 1 tablet 8h Nov, 30 day(s) Active Cyclobenzaprine HCl 10 mg Orally Three times a day as needed 1 tablet 90 Active Omeprazole 40 mg Orally Once a day 1 capsule 24h Jul, 90 days Active Gabapentin 300 MG Orally Three times a day 1 capsule 8h Nov, 30 day(s) Active OxyContin 15 mg Orally every 12 hrs 1 tablet 12h Mar, 2 8 Apr, 2017 28 days Active Tylenol Arthritis Pain by oral route 2 times a day 2tablets 12h Active Bystolic 10 mg Orally 2 times a day 1 tablet 12h 90 days Active PredniSONE 20 mg Orally Once a day 2 tablets 24h Dec, 07 days Active Cymbalta 60 mg Orally Once a day 1 capsule 24h 14 Apr, 2017 90 days Active Ipratropium-Albuterol 0.5-2.5 (3) MG/3ML Inhalation every 6 hrs 3 ml as needed 6h Active Ibuprofen 200 MG Orally every 4-6 hours as needed 2 tablets Active Leflunomide 20 MG Orally Once a day 1 tablet 24h Active Symbicort 160-4.5 MCG/ACT Inhalation Twice a day 2 puffs 12h Active PredniSONE 20 mg Orally Once a day 2 tablets 24h Apr, Apr, 05 days Active ProAir HFA 108 (90 Base) MCG/ACT Inhalation every 4 hrs 2 puffs as needed 4h Mar, Active RESULTS No Results PROCEDURES Procedure Date Ordered Result Body Site MEASURE BLOOD OXYGEN LEVEL May 13, 2017 CHEST X-RAY May 13, 2017 [facility] VISIT ESTABLISHED PATIENT May 13, 2017 INSTRUCTIONS MEDICATIONS ADMINISTERED No Known Medications [...]
--- OUTSIDE RECORDS SUMMARY | 2020-02-27 15:52 | XMS REPORT ---
Author Author Beba CORBIN [facility] Address [address] [place] [address] Care Team Providers Care Piano Regulator Name Role Phone EMERALDSTUARTEDWARD Unavailable PROBLEMS Type Condition ICD9-CM Code VSQ86-NO Code Onset Dates Condition S tatus SNOMED Code Problem Colon wall thickening K63.9 Active 905843037 Problem Mild persistent asthma without complication J45.30 Active 338683993 Problem Osteoporosis M81.0 Active 3855335 6 Problem Generalized anxiety disorder F41.1 A ctive 36663448 Problem Severe episode of recurrent major depressive disorder, without psychotic features F33.2 Active 78018727 Problem Moderate persistent asthma with acute exacerbation J45.41 Active 253126792398713 Problem Gastroesophageal reflux disease, esophagitis pre sence not specified K21.9 Active 601822595 Problem Asthma exacerbation J45.901 Active 898974549 Problem Chronic pain syndrome G89.4 Active 734783140 Problem Chronic constipation K59.00 Active 846071104 Problem Essential hypertension I10 Active 56234092 Problem Chronic kidney disease, stage 1 N18.1 Active 359707943 Problem Hyperlipidemia, unspecified hyperlipidemia E78.5 Active 44362425 Problem Pernicious anemia D51.0 Active 84 652218 Problem Atrophy of left kidney N26.1 Active 874146525 Problem Vitamin D deficiency E55.9 Active 66164543 Problem Chronic prescription opiate use Z79.899 Active 159448455 Problem Rheumatoid arthritis 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 St ates she can tolerate injections Drug Allergy May, Active Orencia Unknown Drug Allergy May, Active Cipro Unknown Drug Allergy May, Active Codeine Unknown Drug Allergy May, Active Ivp Dye anaphylaxis Non Drug Allergy May, Active ENCOUNTERS Encounter Location Date Diagnosis [facility] [address] [address] Dec, Medicare annual wellness vis it, initial Z00.00 ; Severe episode of recurrent major depressive disorder, without psychotic features F33.2 ; Asthma exacerbation J45.901 ; Rheumatoid arthritis involving multiple sites with positive rheumatoid factor M05.89 ; Hyperlipidemia, unspecified hyperlipidemia E78.5 ; Essential hypertension I10 ; Osteoporosis M81.0 ; Gastroesophageal reflux disease, esophagitis presence not specified K21.9 and Generalized anxiety disorder F41.1 [place] [address] [address] Dec, Chronic pain syndrome G89.4 [place] [address] [address] Dec, [place] [address] [address] Nov, [place] [address] [address] Nov, Chronic pain syndrome G89.4 [place] [address] [address] Oct, Chronic pain syndrome G89.4 [place] [address] [place] [id number] [address] [place] [address] 08 Oct, 2017 Chronic kidney disease, stag e 1 N18.1 [place] [address] [place] [id number] [place] [address] 07 Oct, 2017 Chronic prescription opiate use Z79.899 ; Cough R05 ; Asthma exacerbation J45.901 ; Elevated liver enzymes R74.8 ; Rheumatoid arthritis involving multiple sites with positive rheumatoid factor M05.89 and Chronic pain syndrome G89.4 [facility] [address] [place] [id number] [address] [place] [address] Sep, Chronic pain syndrome G89.4 [place] [address] [place] [id number] [address] [place] [address] Sep, [facility] [address] [address] Aug, Acute bronchitis, unspecifie d organism J20.9 [facility] [address] [place] [id number] [place] [address] Aug, Chronic pain syndrome G89.4 [place] [address] [address] Jul, Chronic pain syndrome G89.4 [place] [address] [address] Jun, Chronic pain syndrome G89.4 [place] [address] [address] May, Rheumatoid arthritis involvi ng multiple sites with positive rheumatoid factor M05.89 [place] [address] [address] May, Gastroesophageal reflux dise ase, esophagitis presence not specified K21.9 and Chronic pain syndrome G89.4 [place] [address] [address] May, [place] [address] [address] May, Esophageal candidiasis B37.8 1 and Chronic kidney disease, stage 1 N18.1 [place] [address] [address] May, Chronic kidney disease, stag e 1 N18.1 [place] [address] [address] 05 May, 2017 Cough R05 ; Fever, unspecifi ed fever cause R50.9 ; Rheumatoid arthritis involving multiple sites with positive rheumatoid factor M05.89 and Chronic prescription opiate use Z79.899 [place] [address] [address] Apr, [facility] [address] [facility] [id number] [address] [place] [address] Apr, Cough R05 [facility] [address] [facility] [id number] [address] [place] [address] Apr, Asthma exacerbation J45.901 [place] [address] [place] [id number] [place] [address] Apr, [place] [address] [address] Apr, Generalized anxiety disorder F41.1 and Severe episode of recurrent major depressive disorder, without psychotic features F33.2 [place] [address] [place] [id number] [place] [address] Mar, [place] [address] [place] [id number] [place] [address] Feb, Chronic pain syndrome G89.4 [place] [address] [place] [id number] [place] [address] Feb, Acute non-recurrent maxillar y sinusitis J01.00 [place] [address] [place] [id number] [place] [address] Feb, Acute non-recurrent frontal sinusitis J01.10 [place] [address] [place] [id number] [place] [address] Feb, Chronic pain syndrome G89.4 [place] [address] [place] [id number] [place] [address] January, Acute cystitis with hematuri a N30.01 [place] [address] [place] [id number] [place] [address] January, Acute cystitis with hematuri a N30.01 ; Dysuria R30.0 and Moderate persistent asthma with acute exacerbation J45.41 [place] [address] [place] [id number] [place] [address] January, [place] [address] [place] [id number] [address] [place] [address] January, Chronic pain syndrome G89.4 [place] [address] [address] January, Asthma exacerbation J45.901 [place] [address] [address] January, Asthma exacerbation J45.901 [place] [address] [address] Dec, Cough R05 ; Numbness in both hands R20.0 ; Ground glass opacity present on imaging of lung R91.8 ; Hypoxia R09.02 and Asthma exacerbation J45.901 [place] [address] [address] Dec, Chronic pain syndrome G89.4 [place] [address] [address] Nov, Chronic prescription opiate use Z79.899 ; Rheumatoid arthritis involving multiple sites with positive rheumatoid factor M05.89 ; Moderate persistent asthma with acute exacerbation J45.41 ; Pneumonia of right lower lobe due to infectious organism J18.1 ; Chronic pain syndrome G89.4 ; Gastroesophageal reflux disease, esophagitis presence not specified K21.9 and Hyperlipidemia, unspecified hyperlipidemia E78.5 [place] [address] [address] Nov, Rheumatoid arthritis involvi ng multiple sites with positive rheumatoid factor M05.89 [place] [address] [place] [address] Oct, [place] [address] [address] Oct, Essential hypertension I10 [place] [address] [place] [id number] [place] [address] Sep, Hypoxia R09.02 and Ground gl ass opacity present on imaging of lung R91.8 [facility] [address] [id number] [address] [place] [address] Sep, Moderate persistent asthma w ith acute exacerbation J45.41 [facility] [address] [id number] [id number] Sep, [facility] [address] [id number] [address] [place] [address] Sep, Chronic constipation K59.00 and Moderate persistent asthma with acute exacerbation J45.41 [facility] [address] [id number] [address] [place] [address] Sep, Moderate persistent asthma w ith acute exacerbation J45.41 [facility] [address] [id number] [address] [place] [address] 30 Aug, 2016 [facility] [address] [id number] [address] [place] [address] Aug, [facility] [address] [id number] [address] [place] [address] Aug, [facility] [address] [id number] [address] [place] [address] Aug, Rheumatoid arthritis involvi ng multiple sites with positive rheumatoid factor M05.89 ; Essential hypertension I10 ; Hyperlipidemia, unspecified hyperlipidemia E78.5 ; Chronic constipation K59.00 and Moderate persistent asthma with acute exacerbation J45.41 [facility] [address] [id number] [address] [place] [address] Aug, Bronchitis J40 [facility] [address] [id number] [address] [place] [address] Aug, Rheumatoid arthritis involvi ng multiple sites with positive rheumatoid factor M05.89 [facility] [address] [id number] [address] [place] [address] Aug, Pharyngitis, unspecified pablito ology J02.9 and Acute nasopharyngitis J00 [facility] [address] [address] Aug, [facility] [address] [address] Jul, [facility] [address] [address] Jul, Rheumatoid arthritis involvi ng multiple sites with positive rheumatoid factor M05.89 ; Essential hypertension I10 ; Hyperlipidemia, unspecified hyperlipidemia E78.5 ; Rash R21 ; Mild persistent asthma with acute exacerbation J45.31 ; Hematuria R31.9 ; Osteoporosis M81.0 and Gastroesophageal reflux disease, esophagitis presence not specified K21.9 [facility] [address] [address] Jun, [facility] [address] [address] Jun, Dysuria R30.0 [facility] [address] [address] Jun, Acute non-recurrent maxillar y sinusitis J01.00 and Dysuria R30.0 [facility] [address] [address] May, [facility] [address] [address] May, [facility] [address] [address] Apr, Chronic prescription opiate use Z79.899 and Rheumatoid arthritis involving multiple sites with positive rheumatoid factor M05.89 [facility] [address] [address] Mar, [facility] [address] [address] Feb, Dizziness of unknown cause R 42 and Other chronic pain G89.29 [facility] [address] [address] Feb, [facility] [address] [place] [address] Feb, Shortness of breath R06.02 [facility] [address] [place] [id number] [place] [address] January, [facility] [address] [place] [id number] [place] [address] January, Rheumatoid arthritis involvi ng multiple sites with positive rheumatoid factor M05.89 ; Chronic prescription opiate use Z79.899 ; Hyperlipidemia, unspecified hyperlipidemia E78.5 ; Cough R05 ; Exposure to pneumonia Z20.828 ; Diarrhea, unspecified type R19.7 ; Weight loss R63.4 ; Lumbago with sciatica, right side M54.41 and Lumbago with sciatica, left side M54.42 [place] [id number] [place] [id number] [place] [address] Dec, [place] [address] [place] [id number] [address] [place] [address] Dec, Bronchitis J40 [place] [address] [address] Nov, [facility] [address] [place] [id number] [place] [address] Nov, [facility] [address] [place] [address] Nov, [facility] [address] [place] [id number] [address] [place] [address] Nov, Bloody diarrhea R19.7 ; [place] n wall thickening K63.9 ; Shortness of breath R06.02 and Bladder wall thickening N32.89 [facility] [address] [id number] [address] [place] [id number] Oct, Dental examination Z01.20 [facility] [address] [facility] [id number] [address] [place] [address] Oct, [facility] [address] [facility] [id number] [address] [place] [address] 15 Oct, [address] [facility] [address] [place] [id number] [place] [id number] 11 Oct, 2015 Dental examination Z01.20 [facility] [address] [facility] [id number] [address] [place] [address] 02 Oct, 2015 [facility] [address] [place] [id number] [place] [address] 18 Sep, 2015 [facility] [address] [place] [id number] [place] [address] Sep, Burning with urination R30.0 [place] [address] [facility] [id number] [address] [place] [address] Sep, Hematuria R31.9 ; Rheumatoid arthritis involving multiple sites with positive rheumatoid factor M05.89 and Rheumatoid arthritis flare M06.9 [facility] [address] [place] [id number] [place] [address] Aug, Hyperlipidemia, unspecified hyperlipidemia E78.5 and Hematuria R31.9 [facility] [address] [place] [id number] [place] [address] Aug, Hematuria R31.9 ; Chronic ki dney disease, stage 1 N18.1 and Hyperlipidemia, unspecified hyperlipidemia E78.5 [facility] [address] [facility] [id number] [address] [place] [address] Aug, Rheumatoid arthritis involvi ng multiple sites with positive rheumatoid factor M05.89 ; Asthma exacerbation J45.901 ; Hematuria R31.9 ; Hyperlipidemia, unspecified hyperlipidemia E78.5 and Chronic kidney disease, stage 1 N18.1 [facility] [address] [place] [id number] [place] [address] Aug, [facility] [address] [place] [id number] [place] [address] Jul, [place] [address] [id number] [address] [place] [address] Jul, Lumbosacral radiculopathy M5 4.17 [facility] [address] [id number] [address] [place] [address] 17 Jul, 2015 [facility] [address] [id number] [address] [place] [address] Jun, Rheumatoid arthritis involvi ng multiple sites with positive rheumatoid factor M05.89 ; Hyperlipidemia, unspecified hyperlipidemia E78.5 ; Lumbosacral radiculopathy M54.17 ; Carpal tunnel syndrome, right upper limb G56.01 and Carpal tunnel syndrome, left upper limb G56.02 [facility] [address] [id number] [address] [place] [address] Jun, [facility] [address] [id number] [address] [place] [address] May, Lumbar radicular pain 724.4 and Dysuria 788.1 [facility] [address] [id number] [address] [place] [address] 08 May, 2015 Rheumatoid arthritis 714.0 ; Lumbar radicular pain 724.4 ; Burn 949.0 and Thoracic back pain 724.1 [facility] [address] [id number] [address] [place] [address] 08 May, 2015 [facility] [address] [id number] [address] [place] [address] May, [facility] [address] [id number] [address] [place] [address] Apr, [facility] [address] [id number] [address] [place] [address] Mar, Hyperlipidemia 272.4 [facility] [address] [id number] [address] [place] [address] 07 Mar, 2015 [facility] [address] [facility] [id number] [address] [place] [address] Mar, [facility] [address] [id number] [address] [place] [address] Mar, Diarrhea 787.91 ; Chronic ki dney disease, unspecified 585.9 ; Hyperlipidemia 272.4 and Asthma 493.90 [facility] [address] [id number] [address] [place] [address] Mar, [facility] [address] [id number] [address] [place] [address] Mar, Gastroenteritis 558.9 [facility] [address] [id number] [address] [place] [address] Feb, [facility] [address] [id number] [address] [place] [address] January, [facility] [address] [id number] [address] [place] [address] January, [facility] [address] [id number] [address] [place] [address] Dec, [facility] [address] [id number] [address] [place] [address] Dec, [facility] [address] [id number] [address] [place] [address] Nov, [facility] [address] [id number] [address] [place] [address] Nov, [facility] [address] [id number] [address] [place] [address] Nov, [facility] [address] [id number] [address] [place] [address] Nov, [facility] [address] [id number] [address] [place] [address] Nov, [facility] [address] [id number] [address] [place] [address] Nov, [facility] [address] [id number] [address] [place] [address], [place] [address] 16 Oct, 2014 [facility] [address] [id number] [address] [place] [address], [place] [address] Oct, [facility] [address] [id number] [address] [place] [address], [place] [address] Sep, [facility] [address] [id number] [address] [place] [address], [place] [address] Sep, [facility] [address] [id number] [address] [place] [address], [place] [address] Sep, [facility] [address] [id number] [address] [place] [address], [place] [address] Sep, [facility] [address] [id number] [address] [place] [address], [place] [address] Sep, [facility] [address] [id number] [address] [place] [address], [place] [address] Sep, [facility] [address] [id number] [address] [place] [address], [place] [address] Aug, [facility] [address] [id number] [address] [place] [address], [place] [address] Aug, [facility] [address] [id number] [address] [place] [address], [place] [address] Aug, [facility] [address] [id number] [address] [place] [address], [place] [address] Aug, [facility] [address] [id number] [address] [place] [address], [place] [address] Jul, [facility] [address] [id number] [address] [place] [address], [place] [address] Jul, [facility] [address] [id number] [address] [place] [address], [place] [address] Jul, [facility] [address] [id number] [address] [place] [address], [place] [address] Jul, [facility] [address] [id number] [address] [place] [address], [place] [address] Jul, [facility] [address] [id number] [address] [place] [address], [place] [address] Jul, [facility] [address] [id number] [address] [place] [address], [place] [address] Jul, [facility] [address] [id number] [address] [place] [address], [place] [address] Jul, [facility] [address] [id number] [address] [place] [address], [place] [address] Jul, [facility] [address] [id number] [address] [place] [address], [place] [address] Jun, [facility] [address] [id number] [address] [place] [address], [place] [address] Jun, [facility] [address] [id number] [address] [place] [address], [place] [address] 15 Jun, 2014 [facility] [address] [id number] [address] [place] [address], [place] [address] 25 May, 2014 [facility] [address] [id number] [address] [place] [address], [place] [address] 25 May, 2014 [facility] [address] [id number] [address] [place] [address], [place] [address] 24 May, 2013 [facility] [address] [id number] [address] [place] [address], [place] [address] 24 May, 2013 [facility] [address] [id number] [address] [place] [address], [place] [address] 24 May, 2013 [facility] [address] [id number] [address] [place] [address], [place] [address] 24 May, 2013 [facility] [address] [id number] [address] [place] [address], [place] [address] 19 May, 2013 [facility] [address] [id number] [address] [place] [address] 19 May, 2013 [facility] [address] [id number] [address] [place] [address] May, 2013 [facility] [address] [id number] [address] [place] [address] May, [facility] [address] [id number] [address] [place] [address] May, 2013 [facility] [address] [id number] [address] [place] [address] May, 2013 [facility] [address] [id number] [address] [place] [address] May, [facility] [address] [id number] [address] [place] [id number] May, [facility] [address] [id number] [address] [place] [phone] May, [facility] [address] [id number] [address] [place] [phone] May, [facility] [address] [id number] [address] [place] [phone] Apr, [facility] [address] [id number] [address] [place] [phone] Apr, [facility] [address] [id number] [address] [place] [phone] Aug, [facility] [address] [id number] [address] [place] [phone] Jul, IMMUNIZATIONS No Known Immunizations SOCIAL HISTORY Never Assessed REASON FOR VISIT LAB F/U--[id number] PLAN OF CARE Activity Details Follow Up 2 Weeks Reason: VITAL SIGNS Height 66 in 2017-06-01 Weight 142.0 lbs 2017-06-01 Temperature 98.1 degrees Fahrenheit 2017-06-01 Heart Rate 88 bpm 2017-06-01 Respiratory Rate 20 2017-06-01 BMI 22.92 kg/m2 2017-06-01 Blood pressure systolic 110 mmHg 2017-06-01 Blood pressure diastolic 82 mmHg 2017-06-01 MEDICATIONS Medication Instructions Dosage Frequency Start Date End Date Duration S farooq Fluconazole 200 mg Orally Once a day 2 tablets day one, t hen one tablet daily for another 13 days 24h 12 May, 2017 May, 14 days Active PredniSONE 5 MG Orally Once a day 1 tablet 24h 27 Dec, 2016 Active Cymbalta 60 mg Orally Once a day 1 capsule 24h Apr, 90 days Active Tylenol Arthritis Pain by oral route 2 times a day 2tablets 12h Active ProAir HFA 108 (90 Base) MCG/ACT Inhalation every 4 hrs 2 puffs as needed 4h Mar, Active Gabapentin 800 MG Orally Three times a day 1 tablet 8h Active Cyclobenzaprine HCl 10 mg Orally Three times a day as needed 1 tablet 90 Active Bystolic 10 mg Orally 2 times a day 1 tablet 12h 90 days Active Omeprazole 40 mg Orally Once a day 1 capsule 24h Jul, 90 days Active Symbicort 160-4.5 MCG/ACT Inhalation Twice a day 2 puffs 12h Active Leflunomide 20 MG Orally Once a day 1 tablet 24h Active Ipratropium-Albuterol 0.5-2.5 (3) MG/3ML Inhalation every 6 hrs 3 ml as needed 6h Active tylenol Active OxyContin 15 mg Orally every 12 hrs 1 tablet 12h Apr, 28 days Active RESULTS Name Result Date Reference Range [facility] 2017-06-01 Glucose, Serum 91 65-99 BUN 14 6-24 Creatinine, Serum 0.94 0.57-1.00 eGFR If NonAfricn Am 72 >59 eGFR If Africn Am 84 >59 BUN/Creatinine Ratio 15 9-23 Sodium, Serum 141 134-144 Potassium, Serum 4.3 3.5-5.2 Chloride, Serum 102 96-106 Carbon Dioxide, Total 25 18-29 Calcium, Serum 10.0 8.7-10.2 Protein, Total, Serum 6.7 6.0-8.5 Albumin, Serum 4.4 3.5-5.5 Globulin, Total 2.3 1.5-4.5 A/G Ratio 1.9 1.2-2.2 Bilirubin, Total 0.3 0.0-1.2 Alkaline Phosphatase, S 77 39-117 AST (SGOT) 41 0-40 ALT (SGPT) 62 0-32 PROCEDURES Procedure Date Ordered Result Body Site [facility] ESTABLISHED PATIENT Jun 01, 2017 VENIPUNCT, ROUTINE* Jun 01, 2017 [facility] Jun 01, 2017 INSTRUCTIONS MEDICATIONS ADMINISTERED No Known Medications [...]
--- OUTSIDE RECORDS SUMMARY | 2020-02-27 15:53 | XMS REPORT ---
Author Author Beba CORBIN [facility] Address [address] [place] [address] Care Team Providers Care Fifth Hand Name Role Phone EMERALDSTUARTEDWARD Unavailable PROBLEMS Type Condition ICD9-CM Code [id number] Code Onset Dates Condition S tatus SNOMED Code Problem Colon wall thickening K63.9 Active 815914362 Problem Mild persistent asthma without complication J45.30 Active 225498927 Problem Osteoporosis M81.0 Active 8207363 6 Problem Generalized anxiety disorder F41.1 A ctive 58144441 Problem Severe episode of recurrent major depressive disorder, without psychotic features F33.2 Active 57397638 Problem Moderate persistent asthma with acute exacerbation J45.41 Active 517680831397806 Problem Gastroesophageal reflux disease, esophagitis pre sence not specified K21.9 Active 381320559 Problem Asthma exacerbation J45.901 Active 130894975 Problem Chronic pain syndrome G89.4 Active 682418387 Problem Chronic constipation K59.00 Active 029574204 Problem Essential hypertension I10 Active 78678112 Problem Chronic kidney disease, stage 1 N18.1 Active 626635827 Problem Hyperlipidemia, unspecified hyperlipidemia E78.5 Active 87549745 Problem Pernicious anemia D51.0 Active 84 281441 Problem Atrophy of left kidney N26.1 Active 595951603 Problem Vitamin D deficiency E55.9 Active 16732186 Problem Chronic prescription opiate use Z79.899 Active 018629572 Problem Rheumatoid arthritis involvi ng multiple sites with positive rheumatoid factor M05.89 Active 293125635 Problem Bladder wall thickening N32.89 Active 454351875 ALLERGIES No Information SOCIAL HISTORY Never Assessed PLAN OF CARE VITAL SIGNS MEDICATIONS Medication Instructions Dosage Frequency Start Date End Date Duration S tatus OxyContin 15 MG Orally every 12 hrs [...]
--- OUTSIDE RECORDS SUMMARY | 2020-02-27 15:53 | XMS REPORT ---
Author Author Beba GUO [facility] Address [address] [place] [address] Care Team Providers Care Rerecording Mixer Name Role Phone TOBI GUO Unavailable PROBLEMS Type Condition ICD9-CM Code BAU79-AJ Code Onset Dates Condition S tatus SNOMED Code Problem Colon wall thickening K63.9 Active 368649499 Problem Mild persistent asthma without complication J45.30 Active 796640943 Problem Osteoporosis M81.0 Active 7915120 6 Problem Generalized anxiety disorder F41.1 A ctive 00072199 Problem Severe episode of recurrent major depressive disorder, without psychotic features F33.2 Active 22311696 Problem Moderate persistent asthma with acute exacerbation J45.41 Active [id number] Problem Gastroesophageal reflux disease, esophagitis pre sence not specified K21.9 Active 869217911 Problem Asthma exacerbation J45.901 Active 059840755 Problem Chronic pain syndrome G89.4 Active 717196397 Problem Chronic constipation K59.00 Active 640769338 Problem Essential hypertension I10 Active 34363234 Problem Chronic kidney disease, stage 1 N18.1 Active 847091823 Problem Hyperlipidemia, unspecified hyperlipidemia E78.5 Active 01931345 Problem Pernicious anemia D51.0 Active 84 354502 Problem Atrophy of left kidney N26.1 Active 691022021 Problem Vitamin D deficiency E55.9 Active 33752059 Problem Chronic prescription opiate use Z79.899 Active 428853035 Problem Rheumatoid arthritis involvi ng multiple sites with positive rheumatoid factor M05.89 Active 218939026 Problem Bladder wall thickening N32.89 Active [id number] ALLERGIES No Information ENCOUNTERS Encounter Location Date Diagnosis [facility] [address] [facility] [id number] [address] [place] [phone] Dec, [facility] [address] [facility] [id number] [address] [place] [address] Nov, [facility] [address] [facility] [id number] [address] [place] [address] Nov, Chronic pain syndrome G89.4 [facility] [address] [facility] [id number] [address] [place] [address] Oct, Chronic pain syndrome G89.4 [facility] [address] [facility] [id number] [address] [place] [address] Oct, Chronic kidney disease, stag e 1 N18.1 [facility] [address] [facility] [id number] [address] [place] [address] 07 Oct, 2017 Chronic prescription opiate use Z79.899 ; Cough R05 ; Asthma exacerbation J45.901 ; Elevated liver enzymes R74.8 ; Rheumatoid arthritis involving multiple sites with positive rheumatoid factor M05.89 and Chronic pain syndrome G89.4 [facility] [address] [facility] [id number] [address] [place] [address] Sep, Chronic pain syndrome G89.4 [facility] [address] [facility] [id number] [address] [place] [address] Sep, [facility] [address] [facility] [id number] [address] [place] [phone] Aug, Acute bronchitis, unspecifie d organism J20.9 [facility] [address] [facility] [id number] [address] [place] [address] Aug, Chronic pain syndrome G89.4 [facility] [address] [facility] [id number] [address] [place] [address] Jul, Chronic pain syndrome G89.4 [facility] [address] [facility] [id number] [address] [place] [address] Jun, Chronic pain syndrome G89.4 [facility] [address] [facility] [id number] [address] [place] [address] May, Rheumatoid arthritis involvi ng multiple sites with positive rheumatoid factor M05.89 [facility] [address] [facility] [id number] [address] [place] [address] May, Gastroesophageal reflux dise ase, esophagitis presence not specified K21.9 and Chronic pain syndrome G89.4 [place] [id number] [place] [address] May, [place] [address] [place] [id number] [place] [address] May, Esophageal candidiasis B37.8 1 and Chronic kidney disease, stage 1 N18.1 [place] [address] [address] 11 May, 2017 Chronic kidney disease, stag e 1 N18.1 [place] [address] [address] 05 May, 2017 Cough R05 ; Fever, unspecifi ed fever cause R50.9 ; Rheumatoid arthritis involving multiple sites with positive rheumatoid factor M05.89 and Chronic prescription opiate use Z79.899 [place] [address] [address] Apr, [place] [address] [address] Apr, Cough R05 [place] [address] [address] Apr, Asthma exacerbation J45.901 [place] [address] [address] Apr, [place] [address] [address] Apr, Generalized anxiety disorder F41.1 and Severe episode of recurrent major depressive disorder, without psychotic features F33.2 [place] [address] [place] [id number] [address] [place] [address] Mar, [place] [address] [place] [id number] [address] [place] [address] Feb, Chronic pain syndrome G89.4 [facility] [address] [facility] [id number] [address] [place] [address] Feb, Acute non-recurrent maxillar y sinusitis J01.00 [facility] [address] [facility] [id number] [address] [place] [address] Feb, Acute non-recurrent frontal sinusitis J01.10 [facility] [address] [facility] [id number] [address] [place] [address] Feb, Chronic pain syndrome G89.4 [facility] [address] [facility] [id number] [address] [place] [address] January, Acute cystitis with hematuri a N30.01 [place] [address] [facility] [id number] [address] [place] [address] January, Acute cystitis with hematuri a N30.01 ; Dysuria R30.0 and Moderate persistent asthma with acute exacerbation J45.41 [place] [address] [facility] [id number] [address] [place] [address] January, [facility] [address] [facility] [id number] [address] [place] [address] January, Chronic pain syndrome G89.4 [place] [address] [facility] [id number] [address] [place] [address] January, Asthma exacerbation J45.901 [place] [address] [facility] [id number] [address] [place] [address] January, Asthma exacerbation J45.901 [place] [address] [facility] [id number] [address] [place] [address] Dec, Cough R05 ; Numbness in both hands R20.0 ; Ground glass opacity present on imaging of lung R91.8 ; Hypoxia R09.02 and Asthma exacerbation J45.901 [facility] [address] [facility] [id number] [address] [place] [address] Dec, Chronic pain syndrome G89.4 [place] [address] [address] Nov, Chronic prescription opiate use Z79.899 ; Rheumatoid arthritis involving multiple sites with positive rheumatoid factor M05.89 ; Moderate persistent asthma with acute exacerbation J45.41 ; Pneumonia of right lower lobe due to infectious organism J18.1 ; Chronic pain syndrome G89.4 ; Gastroesophageal reflux disease, esophagitis presence not specified K21.9 and Hyperlipidemia, unspecified hyperlipidemia E78.[address] [address] Nov, Rheumatoid arthritis involvi ng multiple sites with positive rheumatoid factor M05.[address] [address] Oct, [address] [address] Oct, Essential hypertension I10 [address] [address] Sep, Hypoxia R09.02 and Ground gl ass opacity present on imaging of lung R91.[address] [address] Sep, Moderate persistent asthma w ith acute exacerbation J45.41 [facility] [address] [id number] Sep, [place] [address] [address] Sep, Chronic constipation K59.00 and Moderate persistent asthma with acute exacerbation J45.[address] [address] Sep, Moderate persistent asthma w ith acute exacerbation J45.41 [place] [address] [address] Aug, [place] [address] [address] Aug, [facility] [address] [facility] [id number] [address] [place] [address] Aug, [facility] [address] [place] [address] Aug, Rheumatoid arthritis involvi ng multiple sites with positive rheumatoid factor M05.89 ; Essential hypertension I10 ; Hyperlipidemia, unspecified hyperlipidemia E78.5 ; Chronic constipation K59.00 and Moderate persistent asthma with acute exacerbation J45.41 [facility] [address] [place] [address] Aug, Bronchitis J40 [facility] [address] [address] Aug, Rheumatoid arthritis involvi ng multiple sites with positive rheumatoid factor M05.89 [place] [address] [address] Aug, Pharyngitis, unspecified pablito ology J02.9 and Acute nasopharyngitis J00 [facility] [address] [place] [id number] [address] [place] [address] Aug, [facility] [address] [address] Jul, [facility] [address] [address] Jul, Rheumatoid arthritis involvi ng multiple sites with positive rheumatoid factor M05.89 ; Essential hypertension I10 ; Hyperlipidemia, unspecified hyperlipidemia E78.5 ; Rash R21 ; Mild persistent asthma with acute exacerbation J45.31 ; Hematuria R31.9 ; Osteoporosis M81.0 and Gastroesophageal reflux disease, esophagitis presence not specified K21.9 [facility] [address] [place] [address] Jun, [facility] [address] [place] [id number] [address] [place] [address] Jun, Dysuria R30.0 [facility] [address] [place] [id number] [place] [address] 05 Jun, 2016 Acute non-recurrent maxillar y sinusitis J01.00 and Dysuria R30.0 [facility] [address] [place] [id number] [address] [place] [address] 16 May, 2016 [facility] [address] [address] 15 May, 2016 [facility] [address] [address] Apr, Chronic prescription opiate use Z79.899 and Rheumatoid arthritis involving multiple sites with positive rheumatoid factor M05.89 [place] [address] [address] Mar, [place] [address] [address] Feb, Dizziness of unknown cause R 42 and Other chronic pain G89.29 [place] [address] [address] Feb, [place] [address] [address] Feb, Shortness of breath R06.02 [place] [address] [place] [id number] [address] [place] [address] January, [place] [address] [address] January, Rheumatoid arthritis involvi ng multiple sites with positive rheumatoid factor M05.89 ; Chronic prescription opiate use Z79.899 ; Hyperlipidemia, unspecified hyperlipidemia E78.5 ; Cough R05 ; Exposure to pneumonia Z20.828 ; Diarrhea, unspecified type R19.7 ; Weight loss R63.4 ; Lumbago with sciatica, right side M54.41 and Lumbago with sciatica, left side M54.42 [place] [address] [place] [id number] [address] [place] [address] Dec, [facility] [address] [id number] [address] [place] [address] Dec, Bronchitis J40 [facility] [address] [id number] [address] [place] [address] Nov, [facility] [address] [id number] [address] [place] [address] Nov, [facility] [address] [id number] [address] [place] [address] Nov, [facility] [address] [id number] [address] [place] [address] Nov, Bloody diarrhea R19.7 ; Powell n wall thickening K63.9 ; Shortness of breath R06.02 and Bladder wall thickening N32.89 [facility] [address] [id number] [address] [place] [id number] 15 Oct, 2015 Dental examination Z01.20 [facility] [address] [id number] [address] [place] [address] 15 Oct, 2015 [facility] [address] [id number] [address] [place] [address] Oct, Toothache K08.8 [facility] [address] [id number] [address] [place] [id number] 11 Oct, 2015 Dental examination Z01.20 [facility] [address] [id number] [address] [place] [address] 02 Oct, 2015 [facility] [address] [id number] [address] [place] [address] Sep, [facility] [address] [facility] [id number] [address] [place] [address] Sep, Burning with urination R30.0 [facility] [address] [id number] [address] [place] [address] 12 Sep, 2015 Hematuria R31.9 ; Rheumatoid arthritis involving multiple sites with positive rheumatoid factor M05.89 and Rheumatoid arthritis flare M06.9 [facility] [address] [id number] [address] [place] [address] Aug, Hyperlipidemia, unspecified hyperlipidemia E78.5 and Hematuria R31.9 [facility] [address] [id number] [address] [place] [address] Aug, Hematuria R31.9 ; Chronic ki dney disease, stage 1 N18.1 and Hyperlipidemia, unspecified hyperlipidemia E78.5 [place] [address] [id number] [address] [place] [address] Aug, Rheumatoid arthritis involvi ng multiple sites with positive rheumatoid factor M05.89 ; Asthma exacerbation J45.901 ; Hematuria R31.9 ; Hyperlipidemia, unspecified hyperlipidemia E78.5 and Chronic kidney disease, stage 1 N18.1 [place] [address] [id number] [address] [place] [address] Aug, [place] [address] [id number] [address] [place] [address] Jul, [place] [address] [id number] [address] [place] [address] Jul, Lumbosacral radiculopathy M5 4.17 [facility] [address] [id number] [address] [place] [address] Jul, [place] [address] [id number] [address] [place] [address] Jun, Rheumatoid arthritis involvi ng multiple sites with positive rheumatoid factor M05.89 ; Hyperlipidemia, unspecified hyperlipidemia E78.5 ; Lumbosacral radiculopathy M54.17 ; Carpal tunnel syndrome, right upper limb G56.01 and Carpal tunnel syndrome, left upper limb G56.02 [facility] [address] [id number] [address] [place] [address] Jun, [place] [address] [id number] [address] [place] [address] May, Lumbar radicular pain 724.4 and Dysuria 788.1 [facility] [address] [id number] [address] [place] [address] May, Rheumatoid arthritis 714.0 ; Lumbar radicular pain 724.4 ; Burn 949.0 and Thoracic back pain 724.1 [facility] [address] [id number] [address] [place] [address] May, [facility] [address] [id number] [address] [place] [address] May, [facility] [address] [id number] [address] [place] [address] Apr, [facility] [address] [id number] [address] [place] [address] Mar, Hyperlipidemia 272.4 [facility] [address] [place] [id number] [address] [place] [address] Mar, [facility] [address] [id number] [address] [place] [address] Mar, [facility] [address] [place] [id number] [address] [place] [address] Mar, Diarrhea 787.91 ; Chronic ki dney disease, unspecified 585.9 ; Hyperlipidemia 272.4 and Asthma 493.90 [facility] [address] [facility] [id number] [address] [place] [address] Mar, [facility] [address] [facility] [id number] [address] [place] [address] Mar, Gastroenteritis 558.9 [facility] [address] [facility] [id number] [address] [place] [id number] Feb, [facility] [address] [facility] [id number] [address] [place] [address] January, [facility] [address] [facility] [id number] [address] [place] [address] January, [facility] [address] [id number] [address] [place] [address], [place] [address] 14 Dec, 2014 [facility] [address] [id number] [address] [place] [address], [place] [address] Dec, [facility] [address] [id number] [address] [place] [address], [place] [address] Nov, [facility] [address] [id number] [address] [place] [address], [place] [address] Nov, [facility] [address] [id number] [address] [place] [address], [place] [address] Nov, [facility] [address] [id number] [address] [place] [address], [place] [address] Nov, [facility] [address] [id number] [address] [place] [address], [place] [address] Nov, [facility] [address] [id number] [address] [place] [address], [place] [address] Nov, [facility] [address] [id number] [address] [place] [address], [place] [address] Oct, [facility] [address] [id number] [address] [place] [address], [place] [address] Oct, [facility] [address] [id number] [address] [place] [address], [place] [address] Sep, [facility] [address] [id number] [address] [place] [address], [place] [address] Sep, [facility] [address] [id number] [address] [place] [address], [place] [address] Sep, [facility] [address] [id number] [address] [place] [address], [place] [address] Sep, [facility] [address] [id number] [address] [place] [address], [place] [address] Sep, [facility] [address] [id number] [address] [place] [address] Sep, [facility] [address] [id number] [address] [place] [address], [place] [address] Aug, [facility] [address] [id number] [address] [place] [address], [place] [address] Aug, [facility] [address] [id number] [address] [place] [address], [place] [address] Aug, [facility] [address] [id number] [address] [place] [address], [place] [address] Aug, [facility] [address] [id number] [address] [place] [address], [place] [address] Jul, [facility] [address] [id number] [address] [place] [address], [place] [address] Jul, [facility] [address] [id number] [address] [place] [address], [place] [address] Jul, [facility] [address] [id number] [address] [place] [address], [place] [address] Jul, [facility] [address] [id number] [address] [place] [address], [place] [address] Jul, [facility] [address] [id number] [address] [place] [address], [place] [address] Jul, [facility] [address] [id number] [address] [place] [address], [place] [address] Jul, [facility] [address] [id number] [address] [place] [address], [place] [address] Jul, [facility] [address] [id number] [address] [place] [address], [place] [address] Jul, [facility] [address] [id number] [address] [place] [address], [place] [address] Jun, [facility] [address] [id number] [address] [place] [address], [place] [address] 15 Jun, 2014 [facility] [address] [id number] [facility] [place] [address] 15 Jun, 2014 [facility] [address] [id number] [facility] [place] [address] 25 Sep, 2013 [facility] [address] [id number] [facility] [place] [address] 25 Sep, 2013 [facility] [address] [id number] [address] [place] [address], [place] [address] 24 Sep, 2013 [facility] [address] [id number] [address] [place] [address], [place] [address] 24 Sep, 2013 [facility] [address] [id number] [address] [place] [address], [place] [address] 24 May, 2013 [facility] [address] [id number] [address] [place] [address], [place] [address] 24 May, 2013 [facility] [address] [id number] [address] [place] [address], [place] [address] 19 May, 2013 [facility] [address] [id number] [address] [place] [address], [place] [address] 19 May, 2013 [facility] [address] [id number] [address] [place] [address], [place] [address] 11 May, 2013 [facility] [address] [id number] [address] [place] [address], [place] [address] 11 May, 2013 [facility] [address] [id number] [address] [place] [address], [place] [address] 11 May, 2013 [facility] [address] [id number] [address] [place] [address], [place] [address] 11 Sep, 2013 [facility] [address] [id number] [address] [place] [address], [place] [id number] 10 Sep, 2013 [facility] [address] [id number] [address] [place] [address], [place] [address] 09 Sep, 2013 [facility] [address] [id number] [address] [place] [address], [place] [address] May, [facility] [address] [facility] [id number] [address] [place] [phone] May, [facility] [address] [facility] [id number] [address] [place] [id number] Apr, [facility] [address] [facility] [id number] [address] [place] [id number] Apr, [facility] [address] [facility] [id number] [address] [place] [id number] Aug, [facility] [address] [facility] [id number] [address] [place] [id number] Jul, IMMUNIZATIONS No Known Immunizations SOCIAL HISTORY Never Assessed REASON FOR VISIT Controlled Medication Refill PLAN OF CARE VITAL SIGNS MEDICATIONS Medication Instructions Dosage Frequency Start Date End Date Duration S tatus OxyContin 15 mg Orally every 12 hrs 1 tablet 12h Mar, 2 Apr, 28 days Active RESULTS No Results [...]
--- OUTSIDE RECORDS SUMMARY | 2020-02-27 15:53 | XMS REPORT ---
Author Author Beba CORBIN [facility] Address [address] [place] [address] Care Team Providers Care Registered Pharmacy Technician Name Role Phone EMERALDYOGESH JEFFERSY Unavailable PROBLEMS Type Condition ICD9-CM Code [id number] Code Onset Dates Condition S tatus SNOMED Code Problem Colon wall thickening K63.9 Active 130758773 Problem Mild persistent asthma without complication J45.30 Active 333425721 Problem Osteoporosis M81.0 Active 6258123 6 Problem Generalized anxiety disorder F41.1 A ctive 24036812 Problem Severe episode of recurrent major depressive disorder, without psychotic features F33.2 Active 50824028 Problem Moderate persistent asthma with acute exacerbation J45.41 Active 588302206659919 Problem Gastroesophageal reflux disease, esophagitis pre sence not specified K21.9 Active 728516728 Problem Asthma exacerbation J45.901 Active 213135478 Problem Chronic pain syndrome G89.4 Active 942176929 Problem Chronic constipation K59.00 Active 629225136 Problem Essential hypertension I10 Active 66206841 Problem Chronic kidney disease, stage 1 N18.1 Active 844752046 Problem Hyperlipidemia, unspecified hyperlipidemia E78.5 Active 04106398 Problem Pernicious anemia D51.0 Active 84 619191 Problem Atrophy of left kidney N26.1 Active 646143617 Problem Vitamin D deficiency E55.9 Active 21816454 Problem Chronic prescription opiate use Z79.899 Active 943847682 Problem Rheumatoid arthritis involvi ng multiple sites with positive rheumatoid factor M05.89 Active 592234715 Problem Bladder wall thickening N32.89 Active 248458562 ALLERGIES Substance Reaction Event Type Date Status [...] CARE Activity Details Follow Up prn after hospitalization Re ason: VITAL SIGNS Height 66 in 2016-09-22 Weight 153 lbs 2016-09-22 Temperature 98.1 degrees Fahrenheit 2016-09-22 Heart Rate 100 bpm 2016-09-22 Respiratory Rate 20 2016-09-22 Oximetry ambulating w/o oxygen:87 % 2016-09-22 BMI 24.69 kg/m2 2016-09-22 Blood pressure systolic 112 mmHg 2016-09-22 Blood pressure diastolic 80 mmHg 2016-09-22 MEDICATIONS Medication Instructions Dosage Frequency Start Date End Date Duration S tatus Linzess 290 MCG Orally Once a day 1 capsule 24h Active Symbicort 160-4.5 MCG/ACT Inhalation Twice a day 2 puffs 12h Active PredniSONE 10 mg Orally 4 tab qdx5d, then 2 tab qdx5d, th en 1 tab qdx5d as directed Sep, Sep, 15 days Active Omeprazole 40 mg Orally Once a day 1 capsule 24h Jul, 90 days Active Cefpodoxime Proxetil 200 MG Orally every 12 hrs 1 tablet 12h Active Gabapentin 900 MG Orally Three times a day 1 capsule 8h 08 May, 90 days Active Cyclobenzaprine HCl 10 mg Orally Three times a day as needed 1 tablet Dec, 90 days Active Tessalon Perles 100 MG Orally Three times a day 1 capsule as needed 8h Aug, Active Tylenol Arthritis Pain by oral route 2 times a day 2tablets 12h Active Bystolic 10 mg Orally 2 times a day 1 tablet 12h 90 days Active Ipratropium-Albuterol 0.5-2.5 (3) MG/3ML Inhalation every 6 hrs 3 ml as needed 6h Active OxyContin 15 MG Orally every 12 hrs 1 tablet 12h Jul, 28 days Active RESULTS Name Result Date Reference Range Xray : Chest (IN HOUSE) 2016-09-22 PROCEDURES Procedure Date Ordered Related Diagnosis Body Site MEASURE BLOOD OXYGEN LEVEL Sep 22, 2016 CHEST X-RAY Sep 22, 2016 No Charge Sep 22, 2016 IMMUNIZATIONS No Known Immunizations
--- OUTSIDE RECORDS SUMMARY | 2020-02-27 15:53 | XMS REPORT ---
Author Author Beba CORBIN [facility] Address [address] [place] [address] Care Team Providers Care Recycling Operator Name Role Phone EMERALDSTUARTEDWARD Unavailable PROBLEMS Type Condition ICD9-CM Code [id number] Code Onset Dates Condition S tatus SNOMED Code Problem Colon wall thickening K63.9 Active 836448478 Problem Mild persistent asthma without complication J45.30 Active 564429575 Problem Osteoporosis M81.0 Active 6155850 6 Problem Generalized anxiety disorder F41.1 A ctive 42855889 Problem Severe episode of recurrent major depressive disorder, without psychotic features F33.2 Active 32703110 Problem Moderate persistent asthma with acute exacerbation J45.41 Active 927559005300294 Problem Gastroesophageal reflux disease, esophagitis pre sence not specified K21.9 Active 022218797 Problem Asthma exacerbation J45.901 Active 424005938 Problem Chronic pain syndrome G89.4 Active 361467473 Problem Chronic constipation K59.00 Active 447083016 Problem Essential hypertension I10 Active 94167704 Problem Chronic kidney disease, stage 1 N18.1 Active 570596893 Problem Hyperlipidemia, unspecified hyperlipidemia E78.5 Active 31724271 Problem Pernicious anemia D51.0 Active 84 232736 Problem Atrophy of left kidney N26.1 Active 147201869 Problem Vitamin D deficiency E55.9 Active 90888283 Problem Chronic prescription opiate use Z79.899 Active 944942254 Problem Rheumatoid arthritis involvi ng multiple sites with positive rheumatoid factor M05.89 Active 756796926 Problem Bladder wall thickening N32.89 Active 009059116 ALLERGIES No Information SOCIAL HISTORY Never Assessed [...]
--- OUTSIDE RECORDS SUMMARY | 2020-02-27 15:53 | XMS REPORT ---
Author Author Beba CORBIN [facility] Address [address] [place] [address] Care Team Providers Care Department Store Door Greeter Name Role Phone EMERALD EDWARD Unavailable PROBLEMS Type Condition ICD9-CM Code [id number] Code Onset Dates Condition S tatus SNOMED Code Problem Colon wall thickening K63.9 Active 042110414 Problem Osteoporosis M81.0 Active 1810503 6 Problem Gastroesophageal reflux disease, esophagitis pre sence not specified K21.9 Active 817107281 Problem Generalized anxiety disorder F41.1 A ctive 25616823 Problem Severe episode of recurrent major depressive disorder, without psychotic features F33.2 Active 74954775 Problem Moderate persistent asthma with acute exacerbation J45.41 Active 750112358701905 Problem Mild persistent asthma without complication J45.30 Active 150639446 Problem Asthma exacerbation J45.901 Active 845832814 Problem Chronic pain syndrome G89.4 Active 133745407 Problem Chronic constipation K59.00 Active 863208428 Problem Hyperlipidemia, unspecified hyperlipidemia E78.5 Active 20054043 Problem Atrophy of left kidney N26.1 Active 290946889 Problem Chronic kidney disease, stage 1 N18.1 Active 158626935 Problem Pernicious anemia D51.0 Active 84 550635 Problem Rheumatoid arthritis involvi ng multiple sites with positive rheumatoid factor M05.89 Active 929021759 Problem Essential hypertension I10 Active 09840728 Problem Chronic prescription opiate use Z79.899 Active 461426782 Problem Vitamin D deficiency E55.9 Active 69554637 Problem Bladder wall thickening N32.89 Active 853600605 ALLERGIES Unknown Allergies SOCIAL HISTORY No smoking Hx information available PLAN OF CARE VITAL SIGNS MEDICATIONS Unknown Medications RESULTS No Results PROCEDURES No Known procedures IMMUNIZATIONS No Known Immunizations
--- OUTSIDE RECORDS SUMMARY | 2020-02-27 15:53 | XMS REPORT ---
Author Author Beba CORBIN [facility] Address [address] [place] [address] Care Team Providers Care Cooker Operator Name Role Phone EDWARD CORBIN Unavailable PROBLEMS Type Condition ICD9-CM Code [id number] Code Onset Dates Condition S tatus SNOMED Code Problem Colon wall thickening K63.9 Active 046825549 Problem Osteoporosis M81.0 Active 5674594 6 Problem Gastroesophageal reflux disease, esophagitis pre sence not specified K21.9 Active 753208306 Problem Generalized anxiety disorder F41.1 A ctive 43342722 Problem Severe episode of recurrent major depressive disorder, without psychotic features F33.2 Active 50281378 Problem Moderate persistent asthma with acute exacerbation J45.41 Active 295411440080728 Problem Mild persistent asthma without complication J45.30 Active 359151885 Problem Asthma exacerbation J45.901 Active 258312730 Problem Chronic pain syndrome G89.4 Active 367137094 Problem Chronic constipation K59.00 Active 005516822 Problem Hyperlipidemia, unspecified hyperlipidemia E78.5 Active 48582775 Problem Atrophy of left kidney N26.1 Active 746711842 Problem Chronic kidney disease, stage 1 N18.1 Active 857214699 Problem Pernicious anemia D51.0 Active 84 689493 Problem Rheumatoid arthritis involvi ng multiple sites with positive rheumatoid factor M05.89 Active 377419188 Problem Essential hypertension I10 Active 79353702 Problem Chronic prescription opiate use Z79.899 Active 593073121 Problem Vitamin D deficiency E55.9 Active 41993727 Problem Bladder wall thickening N32.89 Active 721995069 ALLERGIES Unknown Allergies SOCIAL HISTORY No smoking Hx information available PLAN OF CARE VITAL SIGNS MEDICATIONS Medication Instructions Dosage Frequency Start Date End Date Duration S tatus Ipratropium-Albuterol 0.5-2.5 (3) MG/3ML Inhalation every 6 hrs 3 ml as needed 6h Active RESULTS No Results PROCEDURES No Known procedures IMMUNIZATIONS No Known Immunizations
--- OUTSIDE RECORDS SUMMARY | 2020-02-27 15:53 | XMS REPORT ---
Author Author Beba CORBIN [facility] Address [address] [place] [address] Care Team Providers Care Attendant Honor Bar Name Role Phone EDWARD CORBIN Unavailable PROBLEMS Type Condition ICD9-CM Code [id number] Code Onset Dates Condition S tatus SNOMED Code Problem Colon wall thickening K63.9 Active 959585318 Problem Mild persistent asthma without complication J45.30 Active 031095881 Problem Osteoporosis M81.0 Active 4642427 6 Problem Generalized anxiety disorder F41.1 A ctive 73600668 Problem Severe episode of recurrent major depressive disorder, without psychotic features F33.2 Active 01195391 Problem Moderate persistent asthma with acute exacerbation J45.41 Active 234694897792994 Problem Gastroesophageal reflux disease, esophagitis pre sence not specified K21.9 Active 302540630 Problem Asthma exacerbation J45.901 Active 417983447 Problem Chronic pain syndrome G89.4 Active 657511652 Problem Chronic constipation K59.00 Active 640193657 Problem Essential hypertension I10 Active 88616919 Problem Chronic kidney disease, stage 1 N18.1 Active 162030935 Problem Hyperlipidemia, unspecified hyperlipidemia E78.5 Active 22252561 Problem Pernicious anemia D51.0 Active 84 491151 Problem Atrophy of left kidney N26.1 Active 090879755 Problem Vitamin D deficiency E55.9 Active 98507512 Problem Chronic prescription opiate use Z79.899 Active 734758763 Problem Rheumatoid arthritis involvi ng multiple sites with positive rheumatoid factor M05.89 Active 101941220 Problem Bladder wall thickening N32.89 Active 935606248 ALLERGIES Unknown Allergies SOCIAL HISTORY No smoking Hx information available PLAN OF CARE VITAL SIGNS MEDICATIONS Medication Instructions Dosage Frequency Start Date End Date Duration S tatus Ipratropium-Albuterol 0.5-2.5 (3) MG/3ML Inhalation every 6 hrs 3 ml as needed 6h Active RESULTS No Results PROCEDURES No Known procedures IMMUNIZATIONS No Known Immunizations
--- OUTSIDE RECORDS SUMMARY | 2020-02-27 15:53 | XMS REPORT ---
Author Author Beba CORBIN [facility] Address [address] [place] [address] Care Team Providers Care Quality Control Coordinator Name Role Phone EMERALDSTUARTEDWARD Unavailable PROBLEMS Type Condition ICD9-CM Code HPK18-AH Code Onset Dates Condition S tatus SNOMED Code Problem Colon wall thickening K63.9 Active 352443608 Problem Mild persistent asthma without complication J45.30 Active 737717640 Problem Osteoporosis M81.0 Active 8604013 6 Problem Generalized anxiety disorder F41.1 A ctive 10131816 Problem Severe episode of recurrent major depressive disorder, without psychotic features F33.2 Active 52908902 Problem Moderate persistent asthma with acute exacerbation J45.41 Active 595867458686586 Problem Gastroesophageal reflux disease, esophagitis pre sence not specified K21.9 Active 056616096 Problem Asthma exacerbation J45.901 Active 404033009 Problem Chronic pain syndrome G89.4 Active 706725963 Problem Chronic constipation K59.00 Active 283083548 Problem Essential hypertension I10 Active 86437271 Problem Chronic kidney disease, stage 1 N18.1 Active 300297408 Problem Hyperlipidemia, unspecified hyperlipidemia E78.5 Active 85698172 Problem Pernicious anemia D51.0 Active 84 856648 Problem Atrophy of left kidney N26.1 Active 252126666 Problem Vitamin D deficiency E55.9 Active 54618844 Problem Chronic prescription opiate use Z79.899 Active 324133270 Problem Rheumatoid arthritis involvi ng multiple sites with positive rheumatoid factor M05.89 Active 123638746 Problem Bladder wall thickening N32.89 Active 435277974 ALLERGIES No Information SOCIAL HISTORY Never Assessed PLAN OF CARE VITAL SIGNS MEDICATIONS Medication Instructions Dosage Frequency Start Date End Date Duration S tatus OxyContin 15 MG Orally every 12 hrs 1 tablet 12h Jul, 28 days Active Cyclobenzaprine HCl 10 mg Orally Three times a day as needed 1 tablet 90 days Active RESULTS No Results PROCEDURES No [...]
--- OUTSIDE RECORDS SUMMARY | 2020-02-27 15:53 | XMS REPORT ---
Author Author [facility] Address [address] [place] [address] Care Team Providers Care Pulpit Operator Name Role Phone EMERALDEDWARD JEFFERS Unavailable PROBLEMS Type Condition ICD9-CM Code [id number] Code Onset Dates Condition S tatus SNOMED Code Problem Colon wall thickening K63.9 Active 685216769 Problem Mild persistent asthma without complication J45.30 Active 028607791 Problem Osteoporosis M81.0 Active 1666611 6 Problem Generalized anxiety disorder F41.1 A ctive 91339363 Problem Severe episode of recurrent major depressive disorder, without psychotic features F33.2 Active 93397764 Problem Moderate persistent asthma with acute exacerbation J45.41 Active [id number] Problem Gastroesophageal reflux disease, esophagitis pre sence not specified K21.9 Active 972313704 Problem Asthma exacerbation J45.901 Active 210282210 Problem Chronic pain syndrome G89.4 Active 719489589 Problem Chronic constipation K59.00 Active 927745941 Problem Essential hypertension I10 Active 48419990 Problem Chronic kidney disease, stage 1 N18.1 Active 400948212 Problem Hyperlipidemia, unspecified hyperlipidemia E78.5 Active 28630407 Problem Pernicious anemia D51.0 Active 84 343861 Problem Atrophy of left kidney N26.1 Active 152911520 Problem Vitamin D deficiency E55.9 Active 62028944 Problem Chronic prescription opiate use Z79.899 Active 118043972 Problem Rheumatoid arthritis involvi ng multiple sites with positive rheumatoid factor M05.89 Active 989948421 Problem Bladder wall thickening N32.89 Active [id number] ALLERGIES No Information ENCOUNTERS Encounter Location Date Diagnosis [facility] [address] [facility] [id number] [address] [place] [address] Dec, [facility] [address] [facility] [id number] [address] [place] [address] Dec, [facility] [address] [facility] [id number] [address] [place] [address] Nov, [facility] [address] [place] [id number] [address] [place] [address] Nov, Chronic pain syndrome G89.4 [facility] [address] [place] [id number] [address] [place] [address] Oct, Chronic pain syndrome G89.4 [facility] [address] [place] [id number] [address] [place] [address] Oct, Chronic kidney disease, stag [place] 1 N18.1 [place] [address] [address] Oct, Chronic prescription opiate use Z79.899 ; Cough R05 ; Asthma exacerbation J45.901 ; Elevated liver enzymes R74.8 ; Rheumatoid arthritis involving multiple sites with positive rheumatoid factor M05.89 and Chronic pain syndrome G89.4 [facility] [address] [place] [id number] [address] [place] [address] Sep, Chronic pain syndrome G89.4 [facility] [address] [place] [id number] [address] [place] [address] Sep, [facility] [address] [place] [id number] [address] [place] [address] Aug, Acute bronchitis, unspecifie d organism J20.9 [facility] [address] [place] [id number] [address] [place] [address] Aug, Chronic pain syndrome G89.4 [facility] [address] [place] [id number] [address] [place] [address] Jul, Chronic pain syndrome G89.4 [facility] [address] [place] [id number] [address] [place] [address] Jun, Chronic pain syndrome G89.4 [facility] [address] [place] [id number] [address] [place] [address] May, Rheumatoid arthritis involvi ng multiple sites with positive rheumatoid factor M05.89 [facility] [address] [id number] [address] [place] [address] May, Gastroesophageal reflux dise ase, esophagitis presence not specified K21.9 and Chronic pain syndrome G89.4 [facility] [address] [facility] [id number] [address] [place] [address] May, [facility] [address] [facility] [id number] [address] [place] [address] May, Chronic kidney disease, stag e 1 N18.1 and Esophageal candidiasis B37.81 [place] [address] [facility] [id number] [address] [place] [address] May, Chronic kidney disease, stag e 1 N18.1 [place] [address] [facility] [id number] [address] [place] [address] May, Cough R05 ; Fever, unspecifi ed fever cause R50.9 ; Rheumatoid arthritis involving multiple sites with positive rheumatoid factor M05.89 and Chronic prescription opiate use Z79.899 [place] [id number] [facility] [id number] [address] [place] [address] Apr, [place] [address] [facility] [id number] [address] [place] [address] Apr, Cough R05 [place] [address] [facility] [id number] [address] [place] [address] Apr, Asthma exacerbation J45.901 [place] [address] [facility] [id number] [address] [place] [address] Apr, [place] [address] [place] [id number] [address] [place] [address] Apr, Generalized anxiety disorder F41.1 and Severe episode of recurrent major depressive disorder, without psychotic features F33.2 [place] [address] [place] [id number] [address] [place] [address] Mar, [place] [address] [facility] [id number] [address] [place] [address] Feb, Chronic pain syndrome G89.4 [facility] [address] [facility] [id number] [address] [place] [address] Feb, Acute non-recurrent maxillar y sinusitis J01.00 [facility] [address] [facility] [id number] [address] [place] [address] Feb, Acute non-recurrent frontal sinusitis J01.10 [place] [address] [facility] [id number] [address] [place] [address] Feb, Chronic pain syndrome G89.4 [place] [address] [facility] [id number] [address] [place] [address] January, Acute cystitis with hematuri a N30.01 [place] [address] [facility] [id number] [address] [place] [address] January, Acute cystitis with hematuri a N30.01 ; Dysuria R30.0 and Moderate persistent asthma with acute exacerbation J45.41 [place] [address] [facility] [id number] [address] [place] [address] January, [place] [address] [facility] [id number] [address] [place] [address] January, Chronic pain syndrome G89.4 [place] [address] [facility] [id number] [address] [place] [address] January, Asthma exacerbation J45.901 [place] [address] [facility] [id number] [address] [place] [address] January, Asthma exacerbation J45.901 [place] [address] [facility] [id number] [address] [place] [address] Dec, Cough R05 ; Numbness in both hands R20.0 ; Ground glass opacity present on imaging of lung R91.8 ; Hypoxia R09.02 and Asthma exacerbation J45.901 [place] [address] [place] [id number] [address] [place] [address] Dec, Chronic pain syndrome G89.4 [place] [address] [address] Nov, Chronic prescription opiate use Z79.899 ; Rheumatoid arthritis involving multiple sites with positive rheumatoid factor M05.89 ; Moderate persistent asthma with acute exacerbation J45.41 ; Pneumonia of right lower lobe due to infectious organism J18.1 ; Chronic pain syndrome G89.4 ; Gastroesophageal reflux disease, esophagitis presence not specified K21.9 and Hyperlipidemia, unspecified hyperlipidemia E78.5 [place] [address] [address] Nov, Rheumatoid arthritis involvi ng multiple sites with positive rheumatoid factor M05.89 [place] [address] [address] Oct, [place] [address] [address] Oct, Essential hypertension I10 [place] [address] [address] Sep, Hypoxia R09.02 and Ground gl ass opacity present on imaging of lung R91.8 [place] [address] [address] Sep, Moderate persistent asthma w ith acute exacerbation J45.41 [facility] [address] [place] [id number] [place] [id number] Sep, [place] [address] [address] Sep, Chronic constipation K59.00 and Moderate persistent asthma with acute exacerbation J45.41 [place] [address] [address] Sep, Moderate persistent asthma w ith acute exacerbation J45.41 [place] [address] [address] Aug, [facility] [address] [facility] [id number] [address] [place] [address] Aug, [facility] [address] [facility] [id number] [address] [place] [address] Aug, [facility] [address] [facility] [id number] [address] [place] [address] Aug, Rheumatoid arthritis involvi ng multiple sites with positive rheumatoid factor M05.89 ; Essential hypertension I10 ; Hyperlipidemia, unspecified hyperlipidemia E78.5 ; Chronic constipation K59.00 and Moderate persistent asthma with acute exacerbation J45.41 [place] [address] [facility] [id number] [address] [place] [address] Aug, Bronchitis J40 [facility] [address] [facility] [id number] [address] [place] [address] Aug, Rheumatoid arthritis involvi ng multiple sites with positive rheumatoid factor M05.89 [place] [address] [place] [id number] [address] [place] [address] Aug, Pharyngitis, unspecified pablito ology J02.9 and Acute nasopharyngitis J00 [place] [address] [facility] [id number] [address] [place] [address] Aug, [place] [address] [place] [id number] [address] [place] [address] Jul, [facility] [address] [facility] [id number] [address] [place] [address] Jul, Rheumatoid arthritis involvi ng multiple sites with positive rheumatoid factor M05.89 ; Essential hypertension I10 ; Hyperlipidemia, unspecified hyperlipidemia E78.5 ; Rash R21 ; Mild persistent asthma with acute exacerbation J45.31 ; Hematuria R31.9 ; Osteoporosis M81.0 and Gastroesophageal reflux disease, esophagitis presence not specified K21.9 [facility] [address] [facility] [id number] [address] [place] [address] Jun, [facility] [address] [place] [id number] [address] [place] [address] 10 Jun, 2016 Dysuria R30.0 [facility] [address] [place] [id number] [place] [address] Jun, Acute non-recurrent maxillar y sinusitis J01.00 and Dysuria R30.0 [facility] [address] [place] [id number] [address] [place] [address] 16 May, 2016 [facility] [address] [place] [id number] [place] [address] May, [facility] [address] [place] [id number] [place] [address] Apr, Chronic prescription opiate use Z79.899 and Rheumatoid arthritis involving multiple sites with positive rheumatoid factor M05.89 [facility] [address] [address] Mar, [facility] [address] [address] Feb, Dizziness of unknown cause R 42 and Other chronic pain G89.29 [place] [address] [address] Feb, [facility] [address] [place] [id number] [address] [place] [address] Feb, Shortness of breath R06.02 [facility] [address] [place] [id number] [address] [place] [address] January, [place] [address] [place] [id number] [address] [place] [address] January, Rheumatoid arthritis involvi ng multiple sites with positive rheumatoid factor M05.89 ; Chronic prescription opiate use Z79.899 ; Hyperlipidemia, unspecified hyperlipidemia E78.5 ; Cough R05 ; Exposure to pneumonia Z20.828 ; Diarrhea, unspecified type R19.7 ; Weight loss R63.4 ; Lumbago with sciatica, right side M54.41 and Lumbago with sciatica, left side M54.42 [facility] [address] [id number] [address] [place] [address] Dec, [facility] [address] [facility] [id number] [address] Dec, Bronchitis J40 [facility] [address] [facility] [id number] [address] [place] [address] Nov, [facility] [address] [facility] [id number] [address] [place] [address] Nov, [facility] [address] [facility] [id number] [address] [place] [address] Nov, [facility] [address] [facility] [id number] [place] [address] Nov, Bloody diarrhea R19.7 ; [place] n wall thickening K63.9 ; Shortness of breath R06.02 and Bladder wall thickening N32.89 [facility] [address] [place] [id number] [place] [id number] Oct, Dental examination Z01.20 [facility] [address] [place] [id number] [address] [place] [address] Oct, [facility] [address] [address] Oct, Toothache K08.8 [facility] [address] [place] [id number] [place] [address] [id number] Oct, Dental examination Z01.20 [facility] [address] [facility] [id number] [address] [place] [address] Oct, [facility] [address] [facility] [id number] [place] [address] Sep, [facility] [address] [facility] [id number] [address] [place] [address] Sep, Burning with urination R30.0 [facility] [address] [facility] [id number] [address] [place] [address] Sep, Hematuria R31.9 ; Rheumatoid arthritis involving multiple sites with positive rheumatoid factor M05.89 and Rheumatoid arthritis flare M06.9 [place] [address] [facility] [id number] [address] [place] [address] Aug, Hyperlipidemia, unspecified hyperlipidemia E78.5 and Hematuria R31.9 [place] [address] [place] [id number] [address] [place] [address] Aug, Hematuria R31.9 ; Chronic ki dney disease, stage 1 N18.1 and Hyperlipidemia, unspecified hyperlipidemia E78.5 [place] [address] [place] [id number] [place] [address] Aug, Rheumatoid arthritis involvi ng multiple sites with positive rheumatoid factor M05.89 ; Asthma exacerbation J45.901 ; Hematuria R31.9 ; Hyperlipidemia, unspecified hyperlipidemia E78.5 and Chronic kidney disease, stage 1 N18.1 [place] [address] [place] [id number] [address] [place] [address] Aug, [place] [address] [place] [id number] [address] [place] [address] Jul, [place] [address] [place] [id number] [place] [address] Jul, Lumbosacral radiculopathy M5 4.17 [place] [address] [place] [id number] [address] [place] [address] Jul, [place] [address] [place] [id number] [address] [place] [address] Jun, Rheumatoid arthritis involvi ng multiple sites with positive rheumatoid factor M05.89 ; Hyperlipidemia, unspecified hyperlipidemia E78.5 ; Lumbosacral radiculopathy M54.17 ; Carpal tunnel syndrome, right upper limb G56.01 and Carpal tunnel syndrome, left upper limb G56.02 [place] [address] [place] [id number] [address] [place] [address] Jun, [facility] [address] [id number] [address] [place] [address] May, Lumbar radicular pain 724.4 and Dysuria 788.1 [facility] [address] [id number] [address] [place] [address] 08 May, 2015 Rheumatoid arthritis 714.0 ; Lumbar radicular pain 724.4 ; Burn 949.0 and Thoracic back pain 724.1 [facility] [address] [id number] [address] [place] [address] May, [facility] [address] [id number] [address] [place] [address] May, [facility] [address] [id number] [address] [place] [address] Apr, [facility] [address] [facility] [id number] [address] [place] [address] Mar, Hyperlipidemia 272.4 [facility] [address] [id number] [address] [place] [address] Mar, [facility] [address] [id number] [address] [place] [address] Mar, [facility] [address] [facility] [id number] [address] [place] [address] Mar, Diarrhea 787.91 ; Chronic ki dney disease, unspecified 585.9 ; Hyperlipidemia 272.4 and Asthma 493.90 [facility] [address] [id number] [address] [place] [address] Mar, [facility] [address] [facility] [id number] [address] [place] [address] Mar, Gastroenteritis 558.9 [facility] [address] [facility] [id number] [address] [place] [address] Feb, [facility] [address] [facility] [id number] [address] [place] [address] January, [facility] [address] [id number] [address] [place] [address], [place] [address] January, [facility] [address] [id number] [address] [place] [address], [place] [address] Dec, [facility] [address] [id number] [address] [place] [address], [place] [address] Dec, [facility] [address] [id number] [address] [place] [address], [place] [address] Nov, [facility] [address] [id number] [address] [place] [address], [place] [address] Nov, [facility] [address] [id number] [address] [place] [address], [place] [address] Nov, [facility] [address] [id number] [address] [place] [address], [place] [address] Nov, [facility] [address] [id number] [address] [place] [address], [place] [address] Nov, [facility] [address] [id number] [address] [place] [address], [place] [address] Nov, [facility] [address] [id number] [address] [place] [address], [place] [address] Oct, [facility] [address] [id number] [address] [place] [address], [place] [address] Oct, [facility] [address] [id number] [address] [place] [address], [place] [address] Sep, [facility] [address] [id number] [address] [place] [address], [place] [address] Sep, [facility] [address] [id number] [address] [place] [address], [place] [address] Sep, [facility] [address] [id number] [address] [place] [address], [place] [address] Sep, [facility] [address] [id number] [address] [place] [address], [place] [address] Sep, [facility] [address] [id number] [address] [place] [address], [place] [address] Sep, [facility] [address] [id number] [address] [place] [address], [place] [address] Aug, [facility] [address] [id number] [address] [place] [address], [place] [address] Aug, [facility] [address] [id number] [address] [place] [address], [place] [address] Aug, [facility] [address] [id number] [address] [place] [address], [place] [address] Aug, [facility] [address] [id number] [address] [place] [address], [place] [address] Jul, [facility] [address] [id number] [address] [place] [address], [place] [address] Jul, [facility] [address] [id number] [address] [place] [address], [place] [address] Jul, [facility] [address] [id number] [address] [place] [address], [place] [address] Jul, [facility] [address] [id number] [address] [place] [address], [place] [address] Jul, [facility] [address] [id number] [address] [place] [address], [place] [address] Jul, [facility] [address] [id number] [address] [place] [address], [place] [address] Jul, [facility] [address] [id number] [address] [place] [address], [place] [address] Jul, [facility] [address] [id number] [address] [place] [address], [place] [address] Jul, [facility] [address] [id number] [address] [place] [address], [place] [address] Jun, [facility] [address] [id number] [address] [place] [address], [place] [address] 15 Jun, 2014 [facility] [address] [id number] [address] [place] [address], [place] [id number] 15 Jun, 2014 [facility] [address] [id number] [address] [place] [address], [place] [id number] 25 May, 2013 [facility] [address] [id number] [address] [place] [address], [place] [id number] 25 May, 2013 [facility] [address] [id number] [address] [place] [address], [place] [id number] 24 May, 2013 [facility] [address] [id number] [address] [place] [address], [place] [id number] 24 May, 2013 [facility] [address] [id number] [address] [place] [address], [place] [id number] 24 May, 2013 [facility] [address] [id number] [address] [place] [address], [place] [id number] 24 May, 2013 [facility] [address] [id number] [address] [place] [address], [place] [id number] 19 May, 2013 [facility] [address] [id number] [address] [place] [address], [place] [id number] 19 May, 2013 [facility] [address] [id number] [address] [place] [address], [place] [id number] 11 May, 2013 [facility] [address] [id number] [address] [place] [address], [place] [id number] 11 May, 2013 [facility] [address] [id number] [address] [place] [address], [place] [id number] 11 May, 2013 [facility] [address] [id number] [address] [place] [address], [place] [id number] 11 May, 2013 [facility] [address] [id number] [address] [place] [address], [place] [id number] 10 May, 2013 [facility] [address] [id number] [address] [place] [address], [place] [id number] May, [facility] [address] [facility] [id number] [address] [place] [id number] May, [facility] [address] [facility] [id number] [address] [place] [id number] May, [facility] [address] [facility] [id number] [address] [place] [id number] Apr, [facility] [address] [facility] [id number] [address] [place] [id number] Apr, [facility] [address] [facility] [id number] [address] [place] [id number] Aug, [facility] [address] [facility] [id number] [address] [place] [id number] Jul, IMMUNIZATIONS No Known Immunizations SOCIAL HISTORY Never Assessed REASON FOR VISIT Future Lab order PLAN OF CARE VITAL SIGNS MEDICATIONS [...]
--- OUTSIDE RECORDS SUMMARY | 2020-02-27 15:54 | XMS REPORT ---
Author Author Beba ESTRELLA Organization [facility] Address [address] [place] [address] Care Team Providers Care Core Driller Name Role Phone ESTRELLAGUS Allen Unavailable PROBLEMS Type Condition ICD9-CM Code MFM77-CG Code Onset Dates Condition S tatus SNOMED Code Problem Colon wall thickening K63.9 Active 918838628 Problem Mild persistent asthma without complication J45.30 Active 253292594 Problem Osteoporosis M81.0 Active 9543598 6 Problem Generalized anxiety disorder F41.1 A ctive 99250446 Problem Severe episode of recurrent major depressive disorder, without psychotic features F33.2 Active 29339080 Problem Moderate persistent asthma with acute exacerbation J45.41 Active 997021031708744 Problem Gastroesophageal reflux disease, esophagitis pre sence not specified K21.9 Active 182506516 Problem Asthma exacerbation J45.901 Active 447723523 Problem Chronic pain syndrome G89.4 Active 087430285 Problem Chronic constipation K59.00 Active 349327907 Problem Essential hypertension I10 Active 04042233 Problem Chronic kidney disease, stage 1 N18.1 Active 764695998 Problem Hyperlipidemia, unspecified hyperlipidemia E78.5 Active 39523859 Problem Pernicious anemia D51.0 Active 84 123857 Problem Atrophy of left kidney N26.1 Active 941984579 Problem Vitamin D deficiency E55.9 Active 16187730 Problem Chronic prescription opiate use Z79.899 Active 471523842 Problem Rheumatoid arthritis involvi ng multiple sites with positive rheumatoid factor M05.89 Active 953021817 Problem Bladder wall thickening N32.89 Active 743333206 ALLERGIES Substance Reaction Event Type Date Status Penicillin V Potassium Cannot tolerate Oral PCN. St ates she can tolerate injections Drug Allergy Feb, Active Orencia Unknown Drug Allergy Feb, Active Cipro Unknown Drug Allergy Feb, Active Codeine Unknown Drug Allergy Feb, Active Ivp Dye anaphylaxis Non Drug Allergy Feb, Active ENCOUNTERS Encounter Location Date Diagnosis [facility] [address] [facility] [id number] [address] [place] [phone] Dec, [facility] [address] [address] Nov, [facility] [address] [facility] [id number] [address] [place] [phone] Nov, Chronic pain syndrome G89.4 [facility] [address] [place] [id number] [place] [phone] Oct, Chronic pain syndrome G89.4 [facility] [address] [place] [id number] [place] [phone] Oct, Chronic kidney disease, stag e 1 N18.1 [facility] [address] [address] Oct, Chronic prescription opiate use Z79.899 ; Cough R05 ; Asthma exacerbation J45.901 ; Elevated liver enzymes R74.8 ; Rheumatoid arthritis involving multiple sites with positive rheumatoid factor M05.89 and Chronic pain syndrome G89.4 [facility] [address] [place] [id number] [address] [place] [phone] Sep, Chronic pain syndrome G89.4 [facility] [address] [place] [id number] [address] [place] [phone] Sep, [facility] [address] [address] Aug, Acute bronchitis, unspecifie d organism J20.9 [facility] [address] [facility] [id number] [address] [place] [phone] Aug, Chronic pain syndrome G89.4 [facility] [address] [place] [id number] [address] [place] [phone] Jul, Chronic pain syndrome G89.4 [facility] [address] [place] [id number] [address] [place] [id number] Jun, Chronic pain syndrome G89.4 [facility] [address] [facility] [id number] [address] [place] [id number] 29 May, 2017 Rheumatoid arthritis involvi ng multiple sites with positive rheumatoid factor M05.89 [facility] [address] [facility] [id number] [address] [place] [phone] 26 May, 2017 Gastroesophageal reflux dise ase, esophagitis presence not specified K21.9 and Chronic pain syndrome G89.4 [place] [id number] [place] [address] May, [place] [address] [address] 12 May, 2017 Esophageal candidiasis B37.8 1 and Chronic kidney disease, stage 1 N18.1 [place] [address] [address] 11 May, 2017 Chronic kidney disease, stag e 1 N18.1 [place] [address] [address] 05 May, 2017 Cough R05 ; Fever, unspecifi ed fever cause R50.9 ; Rheumatoid arthritis involving multiple sites with positive rheumatoid factor M05.89 and Chronic prescription opiate use Z79.899 [place] [address] [place] [id number] [address] [place] [address] Apr, [place] [address] [place] [id number] [address] [place] [address] Apr, Cough R05 [place] [address] [place] [id number] [address] [place] [id number] Apr, Asthma exacerbation J45.901 [place] [address] [address] Apr, [place] [address] [place] [id number] [address] [place] [phone] 08 Apr, 2017 Generalized anxiety disorder F41.1 and Severe episode of recurrent major depressive disorder, without psychotic features F33.2 [place] [address] [id number] [address] [place] [phone] Mar, [facility] [address] [facility] [id number] [address] [place] [phone] Feb, Chronic pain syndrome G89.4 [place] [address] [facility] [id number] [address] [place] [id number] Feb, Acute non-recurrent maxillar y sinusitis J01.00 [facility] [address] [id number] [address] [place] [phone] Feb, Acute non-recurrent frontal sinusitis J01.10 [place] [address] [facility] [id number] [address] [place] [phone] Feb, Chronic pain syndrome G89.4 [place] [address] [facility] [id number] [address] [place] [phone] January, Acute cystitis with hematuri a N30.01 [place] [address] [facility] [id number] [address] [place] [phone] January, Acute cystitis with hematuri a N30.01 ; Dysuria R30.0 and Moderate persistent asthma with acute exacerbation J45.41 [place] [address] [facility] [id number] [address] [place] [phone] January, [place] [address] [facility] [id number] [address] [place] [phone] January, Chronic pain syndrome G89.4 [facility] [address] [facility] [id number] [address] [place] [address] January, Asthma exacerbation J45.901 [place] [address] [facility] [id number] [address] [place] [id number] January, Asthma exacerbation J45.901 [place] [address] [facility] [id number] [address] [place] [id number] Dec, Cough R05 ; Numbness in both hands R20.0 ; Ground glass opacity present on imaging of lung R91.8 ; Hypoxia R09.02 and Asthma exacerbation J45.901 [place] [address] [facility] [id number] [address] [place] [phone] Dec, Chronic pain syndrome G89.4 [place] [address] [facility] [id number] [address] [place] [address] Nov, Chronic prescription opiate use Z79.899 ; Rheumatoid arthritis involving multiple sites with positive rheumatoid factor M05.89 ; Moderate persistent asthma with acute exacerbation J45.41 ; Pneumonia of right lower lobe due to infectious organism J18.1 ; Chronic pain syndrome G89.4 ; Gastroesophageal reflux disease, esophagitis presence not specified K21.9 and Hyperlipidemia, unspecified hyperlipidemia E78.5 [place] [address] [place] [id number] [address] [place] [id number] Nov, Rheumatoid arthritis involvi ng multiple sites with positive rheumatoid factor M05.89 [place] [address] [place] [id number] [address] [place] [id number] Oct, [place] [address] [place] [id number] [address] [place] [id number] Oct, Essential hypertension I10 [place] [address] [place] [id number] [address] [place] [phone] Sep, Hypoxia R09.02 and Ground gl ass opacity present on imaging of lung R91.8 [place] [address] [place] [id number] [address] [place] [id number] Sep, Moderate persistent asthma w ith acute exacerbation J45.41 [facility] [address] [place] [id number] [place] [id number] Sep, [place] [address] [place] [id number] [address] [place] [phone] Sep, Chronic constipation K59.00 and Moderate persistent asthma with acute exacerbation J45.41 [place] [address] [place] [id number] [address] [place] [phone] Sep, Moderate persistent asthma w ith acute exacerbation J45.41 [facility] [address] [id number] [address] [place] [phone] 30 Aug, 2016 [facility] [address] [id number] [address] [place] [id number] Aug, [facility] [address] [facility] [id number] [address] [place] [phone] Aug, [facility] [address] [id number] [address] [place] [id number] Aug, Rheumatoid arthritis involvi multiple sites with positive rheumatoid factor M05.89 ; Essential hypertension I10 ; Hyperlipidemia, unspecified hyperlipidemia E78.5 ; Chronic constipation K59.00 and Moderate persistent asthma with acute exacerbation J45.41 [facility] [address] [facility] [id number] [address] [place] [phone] Aug, Bronchitis J40 [facility] [address] [facility] [id number] [address] [place] [id number] Aug, Rheumatoid arthritis involvi multiple sites with positive rheumatoid factor M05.89 [place] [address] [facility] [id number] [address] [place] [phone] Aug, Pharyngitis, unspecified pablito ology J02.9 and Acute nasopharyngitis J00 [facility] [address] [facility] [id number] [address] [place] [phone] Aug, [facility] [address] [facility] [id number] [address] [place] [phone] Jul, [facility] [address] [facility] [id number] [address] [place] [id number] Jul, Rheumatoid arthritis involvi ng multiple sites with positive rheumatoid factor M05.89 ; Essential hypertension I10 ; Hyperlipidemia, unspecified hyperlipidemia E78.5 ; Rash R21 ; Mild persistent asthma with acute exacerbation J45.31 ; Hematuria R31.9 ; Osteoporosis M81.0 and Gastroesophageal reflux disease, esophagitis presence not specified K21.9 [facility] [address] [facility] [id number] [address] [place] [id number] 18 Jun, 2016 [facility] [address] [facility] [id number] [address] [place] [phone] 10 Jun, 2016 Dysuria R30.0 [facility] [address] [facility] [id number] [address] [place] [id number] 05 Jun, 2016 Acute non-recurrent maxillar y sinusitis J01.00 and Dysuria R30.0 [facility] [address] [place] [id number] [address] [place] [id number] 16 May, 2016 [facility] [address] [place] [id number] [place] [id number] May, [facility] [address] [place] [id number] [place] [phone] Apr, Chronic prescription opiate use Z79.899 and Rheumatoid arthritis involving multiple sites with positive rheumatoid factor M05.89 [facility] [address] [id number] Mar, [facility] [address] [place] [id number] [place] [phone] Feb, Dizziness of unknown cause R 42 and Other chronic pain G89.29 [place] [address] [place] [id number] [address] [place] [id number] Feb, [facility] [address] [place] [id number] [address] [place] [phone] Feb, Shortness of breath R06.02 [facility] [address] [place] [id number] [address] [place] [id number] January, [place] [address] [address] January, Rheumatoid arthritis involvi ng multiple sites with positive rheumatoid factor M05.89 ; Chronic prescription opiate use Z79.899 ; Hyperlipidemia, unspecified hyperlipidemia E78.5 ; Cough R05 ; Exposure to pneumonia Z20.828 ; Diarrhea, unspecified type R19.7 ; Weight loss R63.4 ; Lumbago with sciatica, right side M54.41 and Lumbago with sciatica, left side M54.42 [facility] [address] [id number] [address] [place] [id number] Dec, [facility] [address] [id number] [address] [place] [phone] Dec, Bronchitis J40 [facility] [address] [id number] [address] [place] [phone] Nov, [facility] [address] [id number] [address] [place] [phone] Nov, [facility] [address] [facility] [id number] [address] [place] [id number] Nov, [facility] [address] [facility] [id number] [address] [place] [phone] Nov, Bloody diarrhea R19.7 ; [place] n wall thickening K63.9 ; Shortness of breath R06.02 and Bladder wall thickening N32.89 [facility] [id number] [place] [address] [id number] Oct, Dental examination Z01.20 [facility] [address] [id number] [address] [place] [id number] 15 Oct, 2015 [facility] [address] [id number] [address] [place] [id number] Oct, Toothache K08.8 [facility] [address] [id number] [address] [place] [id number] Oct, Dental examination Z01.20 [facility] [address] [id number] [address] [place] [phone] Oct, [facility] [address] [facility] [id number] [address] [place] [phone] Sep, [facility] [address] [facility] [id number] [address] [place] [id number] 13 Sep, 2015 Burning with urination R30.0 [facility] [address] [id number] [address] [place] [phone] Sep, Hematuria R31.9 ; Rheumatoid arthritis involving multiple sites with positive rheumatoid factor M05.89 and Rheumatoid arthritis flare M06.9 [facility] [address] [facility] [id number] [address] [place] [phone] Aug, Hyperlipidemia, unspecified hyperlipidemia E78.5 and Hematuria R31.9 [facility] [address] [id number] [address] [place] [id number] Aug, Hematuria R31.9 ; Chronic ki dney disease, stage 1 N18.1 and Hyperlipidemia, unspecified hyperlipidemia E78.5 [place] [address] [facility] [id number] [address] [place] [id number] Aug, Rheumatoid arthritis involvi ng multiple sites with positive rheumatoid factor M05.89 ; Asthma exacerbation J45.901 ; Hematuria R31.9 ; Hyperlipidemia, unspecified hyperlipidemia E78.5 and Chronic kidney disease, stage 1 N18.1 [facility] [address] [id number] [address] [place] [id number] Aug, [facility] [address] [facility] [id number] [address] [place] [phone] Jul, [facility] [address] [facility] [id number] [address] [place] [phone] Jul, Lumbosacral radiculopathy M5 4.17 [facility] [address] [id number] [address] [place] [id number] Jul, [place] [address] [facility] [id number] [address] [place] [phone] Jun, Rheumatoid arthritis involvi ng multiple sites with positive rheumatoid factor M05.89 ; Hyperlipidemia, unspecified hyperlipidemia E78.5 ; Lumbosacral radiculopathy M54.17 ; Carpal tunnel syndrome, right upper limb G56.01 and Carpal tunnel syndrome, left upper limb G56.02 [facility] [address] [facility] [id number] [address] [place] [id number] Jun, [facility] [address] [facility] [id number] [address] [place] [phone] May, Lumbar radicular pain 724.4 and Dysuria 788.1 [facility] [address] [place] [id number] [address] [place] [phone] May, Rheumatoid arthritis 714.0 ; Lumbar radicular pain 724.4 ; Burn 949.0 and Thoracic back pain 724.1 [facility] [address] [facility] [id number] [address] [place] [phone] May, [facility] [address] [place] [id number] [place] [phone] May, [facility] [address] [place] [id number] [address] [place] [phone] Apr, [facility] [address] [place] [id number] [address] [place] [phone] Mar, Hyperlipidemia 272.4 [facility] [address] [place] [id number] [place] [phone] Mar, [facility] [address] [place] [id number] [address] [place] [phone] Mar, [facility] [address] [place] [id number] [place] [phone] Mar, Diarrhea 787.91 ; Chronic ki dney disease, unspecified 585.9 ; Hyperlipidemia 272.4 and Asthma 493.90 [facility] [address] [place] [id number] [address] [place] [id number] Mar, [facility] [address] [place] [id number] [address] [place] [phone] Mar, Gastroenteritis 558.9 [facility] [address] [place] [id number] [address] [place] [phone] Feb, [facility] [address] [id number] [address] [place] [address], [place] [address] January, [facility] [address] [id number] [address] [place] [address], [place] [address] January, [facility] [address] [id number] [address] [place] [address], [place] [address] Dec, [facility] [address] [id number] [address] [place] [address], [place] [address] Dec, [facility] [address] [id number] [address] [place] [address], [place] [address] Nov, [facility] [address] [id number] [address] [place] [address], [place] [address] Nov, [facility] [address] [id number] [address] [place] [address], [place] [address] Nov, [facility] [address] [id number] [address] [place] [address], [place] [address] Nov, [facility] [address] [id number] [address] [place] [address], [place] [address] Nov, [facility] [address] [id number] [address] [place] [address], [place] [address] Nov, [facility] [address] [id number] [address] [place] [address], [place] [address] Oct, [facility] [address] [id number] [address] [place] [address], [place] [address] Oct, [facility] [address] [id number] [address] [place] [address], [place] [address] Sep, [facility] [address] [id number] [address] [place] [address], [place] [address] Sep, [facility] [address] [id number] [address] [place] [address], [place] [address] Sep, [facility] [address] [id number] [address] [place] [address], [place] [address] Sep, [facility] [address] [id number] [address] [place] [address], [place] [address] Sep, [facility] [address] [id number] [address] [place] [address], [place] [address] Sep, [facility] [address] [id number] [address] [place] [address], [place] [address] Aug, [facility] [address] [id number] [address] [place] [address], [place] [address] Aug, [facility] [address] [id number] [address] [place] [address], [place] [address] Aug, [facility] [address] [id number] [address] [place] [address], [place] [address] Aug, [facility] [address] [id number] [address] [place] [address], [place] [address] Jul, [facility] [address] [id number] [address] [place] [address], [place] [address] Jul, [facility] [address] [id number] [address] [place] [address], [place] [address] Jul, [facility] [address] [id number] [address] [place] [address], [place] [address] Jul, [facility] [address] [id number] [address] [place] [address], [place] [address] Jul, [facility] [address] [id number] [address] [place] [address], [place] [address] Jul, [facility] [address] [id number] [address] [place] [address], [place] [address] Jul, [facility] [address] [id number] [address] [place] [address], [place] [address] Jul, [facility] [address] [id number] [address] [place] [address], [place] [address] Jul, [facility] [address] [id number] [address] [place] [address], [place] [address] 31 Jun, 2014 [facility] [address] [id number] [address] [place] [address], [place] [address] 15 Jun, 2014 [facility] [address] [id number] [address] [place] [address], [place] [address] 15 Jun, 2014 [facility] [address] [id number] [address] [place] [address], [place] [address] 25 May, 2013 [facility] [address] [id number] [address] [place] [address], [place] [address] 25 May, 2013 [facility] [address] [id number] [address] [place] [address], [place] [address] 24 May, 2013 [facility] [address] [id number] [address] [place] [address], [place] [address] 24 May, 2013 [facility] [address] [id number] [address] [place] [address], [place] [address] 24 May, 2013 [facility] [address] [id number] [address] [place] [address], [place] [address] 24 May, 2013 [facility] [address] [id number] [address] [place] [address], [place] [address] 19 May, 2013 [facility] [address] [id number] [address] [place] [address], [place] [address] 19 May, 2013 [facility] [address] [id number] [address] [place] [address], [place] [address] 11 May, 2013 [facility] [address] [id number] [address] [place] [address], [place] [address] 11 May, 2013 [facility] [address] [id number] [address] [place] [address], [place] [address] 11 May, 2013 [facility] [address] [id number] [address] [place] [address], [place] [address] 11 May, 2013 [facility] [address] [id number] [address] [place] [phone] May, [facility] [address] [id number] [address] [place] [phone] May, [facility] [address] [id number] [address] [place] [id number] May, [facility] [address] [id number] [address] [place] [phone] May, [facility] [address] [id number] [address] [place] [phone] Apr, [facility] [address] [id number] [address] [place] [phone] Apr, [facility] [address] [id number] [address] [place] [phone] Aug, [facility] [address] [id number] [address] [place] [phone] Jul, IMMUNIZATIONS No Known Immunizations SOCIAL HISTORY Never Assessed REASON FOR VISIT Cough, fever x 3 days -- keya stewart PLAN OF CARE Activity Details Follow Up prn Reason: VITAL SIGNS Height 66 in 2017-03-15 Weight 156.0 lbs 2017-03-15 Temperature 98.0 degrees Fahrenheit 2017-03-15 BMI 25.18 kg/m2 2017-03-15 Blood pressure systolic 126 mmHg 2017-03-15 Blood pressure diastolic 72 mmHg 2017-03-15 MEDICATIONS Medication Instructions Dosage Frequency Start Date End Date Duration S rogelio Nina S 8.6-50 MG Orally 2 times a day 2 tablets 12h Active Gabapentin 300 MG Orally Three times a day 1 capsule 8h Nov, 30 day(s) Active Gabapentin 600 MG Orally Three times a day 1 tablet 8h Nov, 30 day(s) Active Cyclobenzaprine HCl 10 mg Orally Three times a day as needed 1 tablet 90 days Active Omeprazole 40 mg Orally Once a day 1 capsule 24h Jul, 90 days Active Ibuprofen 200 MG Orally every 4-6 hours as needed 2 tablets Active PredniSONE 20 mg Orally Once a day 2 tablets 24h Dec, 07 days Active Tylenol Arthritis Pain by oral route 2 times a day 2tablets 12h Active Simvastatin 40 mg Orally Once a day 1 tablet in the evening 24h 15 Mar, 2015 Active OxyContin 15 MG Orally every 12 hrs 1 tablet 12h Jul, 28 days Active Leflunomide 10 MG Orally Once a day 1 tablet 24h Active ProAir HFA 108 (90 Base) MCG/ACT Inhalation every 4 hrs 2 puffs as needed 4h Mar, Active Azithromycin 250 MG Orally Once a day 2 tablets on the fi rst day, then 1 tablet daily for 4 days 24h Feb, Mar, 5 day(s) Active Symbicort 160-4.5 MCG/ACT Inhalation Twice a day 2 puffs 12h Active Bystolic 10 mg Orally 2 times a day 1 tablet 12h 90 days Active Ipratropium-Albuterol 0.5-2.5 (3) MG/3ML Inhalation every 6 hrs 3 ml as needed 6h Active Dulcolax 10 MG Rectal Once a day 1 suppository as needed 24h Active Docusate Sodium 100 MG Orally twice a day 1 capsule as needed 12h Active RESULTS No Results PROCEDURES Procedure Date Ordered Result Body Site [facility] VISIT ESTABLISHED PATIENT March 15, 2017 INSTRUCTIONS MEDICATIONS ADMINISTERED No Known Medications MEDICAL (GENERAL) HISTORY Type Description Date Medical History hypertension Medical History osteoporosis Medical History rheumatoid arthritis Medical History Heart infection Medical History Rheumatic or Scarlet Fever Medical History Pneumonia Medical History Bronchitis Medical History Prednisone Surgical History hysterectomy 2001 Surgical History arthroscopic knee surgery-left knee Surgical History section x 2 Surgical History otolaryngologic surgery-[facility] 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
--- OUTSIDE RECORDS SUMMARY | 2020-02-27 15:54 | XMS REPORT ---
Author Author Beba CORBIN [facility] Address [address] [place] [address] Care Team Providers Care Dental Detail Representative Name Role Phone EMERALD EDWARD Unavailable PROBLEMS Type Condition ICD9-CM Code [id number] Code Onset Dates Condition S tatus SNOMED Code Problem Colon wall thickening K63.9 Active 629231434 Problem Osteoporosis M81.0 Active 6078244 6 Problem Gastroesophageal reflux disease, esophagitis pre sence not specified K21.9 Active 084976983 Problem Generalized anxiety disorder F41.1 A ctive 46999914 Problem Severe episode of recurrent major depressive disorder, without psychotic features F33.2 Active 50577689 Problem Moderate persistent asthma with acute exacerbation J45.41 Active 824677102238829 Problem Mild persistent asthma without complication J45.30 Active 290761479 Problem Asthma exacerbation J45.901 Active 854538413 Problem Chronic pain syndrome G89.4 Active 300454105 Problem Chronic constipation K59.00 Active 179185193 Problem Hyperlipidemia, unspecified hyperlipidemia E78.5 Active 20367918 Problem Atrophy of left kidney N26.1 Active 841476971 Problem Chronic kidney disease, stage 1 N18.1 Active 716229660 Problem Pernicious anemia D51.0 Active 84 517730 Problem Rheumatoid arthritis involvi ng multiple sites with positive rheumatoid factor M05.89 Active 215168120 Problem Essential hypertension I10 Active 07636789 Problem Chronic prescription opiate use Z79.899 Active 692184794 Problem Vitamin D deficiency E55.9 Active 42406524 Problem Bladder wall thickening N32.89 Active 554586457 ALLERGIES Unknown Allergies SOCIAL HISTORY No smoking Hx information available PLAN OF CARE VITAL SIGNS MEDICATIONS Unknown Medications RESULTS No Results PROCEDURES No Known procedures IMMUNIZATIONS No Known Immunizations
--- OUTSIDE RECORDS SUMMARY | 2020-02-27 15:54 | XMS REPORT ---
Author Author Beba ESTRELLA Organization [facility] Address [address] [place] [address] Care Team Providers Care Plush Dresser Name Role Phone ESTRELLAGUS Allen Unavailable PROBLEMS Type Condition ICD9-CM Code CCK45-ET Code Onset Dates Condition S tatus SNOMED Code Problem Colon wall thickening K63.9 Active 357445130 Problem Mild persistent asthma without complication J45.30 Active 669409509 Problem Osteoporosis M81.0 Active 4718905 6 Problem Generalized anxiety disorder F41.1 A ctive 30043661 Problem Severe episode of recurrent major depressive disorder, without psychotic features F33.2 Active 84679025 Problem Moderate persistent asthma with acute exacerbation J45.41 Active 129341310386925 Problem Gastroesophageal reflux disease, esophagitis pre sence not specified K21.9 Active 979184455 Problem Asthma exacerbation J45.901 Active 127885410 Problem Chronic pain syndrome G89.4 Active 093613679 Problem Chronic constipation K59.00 Active 055914318 Problem Essential hypertension I10 Active 02096158 Problem Chronic kidney disease, stage 1 N18.1 Active 269788815 Problem Hyperlipidemia, unspecified hyperlipidemia E78.5 Active 62656046 Problem Pernicious anemia D51.0 Active 84 842702 Problem Atrophy of left kidney N26.1 Active 617282488 Problem Vitamin D deficiency E55.9 Active 46085837 Problem Chronic prescription opiate use Z79.899 Active 889802486 Problem Rheumatoid arthritis involvi ng multiple sites with positive rheumatoid factor M05.89 Active 390767931 Problem Bladder wall thickening N32.89 Active 239512530 ALLERGIES Substance Reaction Event Type Date Status Penicillin V Potassium Cannot tolerate Oral PCN. St ates she can tolerate injections Drug Allergy Aug, Active Orencia Unknown Drug Allergy Aug, Active Cipro Unknown Drug Allergy Aug, Active Codeine Unknown Drug Allergy Aug, Active Ivp Dye anaphylaxis Non Drug Allergy Aug, Active ENCOUNTERS Encounter Location Date Diagnosis [facility] [id number] [place] [address] Mar, [facility] [address] [address] January, [facility] [address] [address] January, Moderate persistent asthma w ith acute exacerbation J45.41 [facility] [address] [address] January, Chronic pain syndrome G89.4 [place] [address] [address] January, Tachycardia R00.0 and Modera te persistent asthma with acute exacerbation J45.41 [place] [address] [address] 11 Jan, 2018 Tachycardia R00.0 ; Moderate persistent asthma with acute exacerbation J45.41 ; Gastroesophageal reflux disease, esophagitis presence not specified K21.9 ; Hyperlipidemia, unspecified hyperlipidemia E78.5 and Chronic pain syndrome G89.4 [place] [address] [address] Dec, Medicare annual wellness vis it, initial [...] immunization Z23 and Chronic pain syndrome G89.4 [place] [address] [address] Dec, Chronic pain syndrome G89.4 [place] [address] [address] Dec, [place] [address] [address] [facility] [id number] [address] [place] [address] Nov, [facility] [address] [place] [id number] [address] [place] [address] Nov, Chronic pain syndrome G89.4 [facility] [address] [place] [address] [id number] [address] [place] [address] Oct, Chronic pain syndrome G89.4 [facility] [address] [place] [address] [id number] [address] [place] [address] Oct, Chronic kidney disease, stag e 1 N18.1 [place] [address] [address] Oct, Chronic prescription opiate use Z79.899 ; Cough R05 ; Asthma exacerbation J45.901 ; Elevated liver enzymes R74.8 ; Rheumatoid arthritis involving multiple sites with positive rheumatoid factor M05.89 and Chronic pain syndrome G89.4 [facility] [address] [place] [id number] [address] [place] [address] Sep, Chronic pain syndrome G89.4 [facility] [address] [place] [address] [id number] [address] [place] [address] Sep, [facility] [address] [place] [address] [id number] [address] [place] [address] Aug, Acute bronchitis, unspecifie d organism J20.9 [facility] [address] [place] [id number] [address] [place] [address] Aug, Chronic pain syndrome G89.4 [facility] [address] [place] [address] [id number] [address] [place] [address] Jul, Chronic pain syndrome G89.4 [facility] [address] [place] [id number] [address] [place] [address] Jun, Chronic pain syndrome G89.4 [facility] [address] [place] [address] [id number] [address] [place] [address] May, Rheumatoid arthritis involvi ng multiple sites with positive rheumatoid factor M05.89 [facility] [address] [id number] [address] [place] [address] May, Gastroesophageal reflux dise ase, esophagitis presence not specified K21.9 and Chronic pain syndrome G89.4 [place] [id number] [facility] [id number] [address] [place] [address] May, [place] [address] [facility] [id number] [address] [place] [address] May, Esophageal candidiasis B37.8 1 and Chronic kidney disease, stage 1 N18.1 [place] [address] [place] [id number] [address] [place] [address] May, Chronic kidney disease, stag e 1 N18.1 [place] [address] [place] [id number] [address] [place] [address] May, Cough R05 ; Fever, unspecifi ed fever cause R50.9 ; Rheumatoid arthritis involving multiple sites with positive rheumatoid factor M05.89 and Chronic prescription opiate use Z79.899 [place] [id number] [facility] [id number] [address] [place] [address] Apr, [place] [address] [address] [facility] [id number] [address] [place] [address] Apr, Cough R05 [place] [address] [address] [facility] [id number] [address] [place] [address] Apr, Asthma exacerbation J45.901 [place] [address] [address] [facility] [id number] [address] [place] [address] Apr, [place] [address] [place] [id number] [address] [place] [address] Apr, Generalized anxiety disorder F41.1 and Severe episode of recurrent major depressive disorder, without psychotic features F33.2 [place] [address] [place] [id number] [address] [place] [address] Mar, [place] [address] [place] [id number] [address] [place] [address] Feb, Chronic pain syndrome G89.4 [place] [address] [facility] [id number] [address] [place] [address] Feb, Acute non-recurrent maxillar y sinusitis J01.00 [place] [address] [address] [facility] [id number] [address] [place] [address] Feb, Acute non-recurrent frontal sinusitis J01.10 [place] [address] [address] [facility] [id number] [address] [place] [address] Feb, Chronic pain syndrome G89.4 [place] [address] [address] [facility] [id number] [address] [place] [address] January, Acute cystitis with hematuri a N30.01 [place] [address] [address] [facility] [id number] [address] [place] [address] January, Acute cystitis with hematuri a N30.01 ; Dysuria R30.0 and Moderate persistent asthma with acute exacerbation J45.41 [place] [address] [address] [facility] [id number] [address] [place] [address] January, [place] [address] [address] [facility] [id number] [address] [place] [address] January, Chronic pain syndrome G89.4 [place] [address] [address] [facility] [id number] [address] [place] [address] January, Asthma exacerbation J45.901 [place] [address] [address] [facility] [id number] [address] [place] [address] January, Asthma exacerbation J45.901 [place] [address] [address] [facility] [id number] [address] [place] [address] Dec, Cough R05 ; Numbness in both hands R20.0 ; Ground glass opacity present on imaging of lung R91.8 ; Hypoxia R09.02 and Asthma exacerbation J45.901 [place] [address] [address] [facility] [id number] [address] [place] [address] Dec, Chronic pain syndrome G89.4 [place] [address] [address] Nov, Chronic prescription opiate use Z79.899 ; Rheumatoid arthritis involving multiple sites with positive rheumatoid factor M05.89 ; Moderate persistent asthma with acute exacerbation J45.41 ; Pneumonia of right lower lobe due to infectious organism J18.1 ; Chronic pain syndrome G89.4 ; Gastroesophageal reflux disease, esophagitis presence not specified K21.9 and Hyperlipidemia, unspecified hyperlipidemia E78.5 [place] [address] [address] Nov, Rheumatoid arthritis involvi ng multiple sites with positive rheumatoid factor M05.[address] [address] Oct, [address] [address] Oct, Essential hypertension I10 [address] [address] Sep, Hypoxia R09.02 and Ground gl ass opacity present on imaging of lung R91.[address] [address] Sep, Moderate persistent asthma w ith acute exacerbation J45.41 [facility] [address] [id number] Sep, [place] [address] [address] Sep, Chronic constipation K59.00 and Moderate persistent asthma with acute exacerbation J45.41 [place] [address] [address] Sep, Moderate persistent asthma w ith acute exacerbation J45.41 [place] [address] [address] Aug, [facility] [address] [facility] [id number] [address] [place] [address] Aug, [facility] [address] [facility] [id number] [address] [place] [address] Aug, [facility] [address] [facility] [id number] [address] [place] [address] Aug, Rheumatoid arthritis involvi ng multiple sites with positive rheumatoid factor M05.89 ; Essential hypertension I10 ; Hyperlipidemia, unspecified hyperlipidemia E78.5 ; Chronic constipation K59.00 and Moderate persistent asthma with acute exacerbation J45.41 [place] [address] [address] [facility] [id number] [address] [place] [address] Aug, Bronchitis J40 [place] [address] [address] [facility] [id number] [address] [place] [address] Aug, Rheumatoid arthritis involvi ng multiple sites with positive rheumatoid factor M05.89 [place] [address] [place] [id number] [address] [place] [address] Aug, Pharyngitis, unspecified pablito ology J02.9 and Acute nasopharyngitis J00 [place] [address] [address] [facility] [id number] [address] [place] [address] Aug, [place] [address] [place] [id number] [address] [place] [address] Jul, [facility] [address] [facility] [id number] [address] [place] [address] Jul, Rheumatoid arthritis involvi ng multiple sites with positive rheumatoid factor M05.89 ; Essential hypertension I10 ; Hyperlipidemia, unspecified hyperlipidemia E78.5 ; Rash R21 ; Mild persistent asthma with acute exacerbation J45.31 ; Hematuria R31.9 ; Osteoporosis M81.0 and Gastroesophageal reflux disease, esophagitis presence not specified K21.9 [facility] [address] [facility] [id number] [address] [place] [address] Jun, [facility] [address] [facility] [id number] [address] [place] [id number] Jun, Dysuria R30.0 [facility] [address] [facility] [id number] [address] [place] [address] Jun, Acute non-recurrent maxillar y sinusitis J01.00 and Dysuria R30.0 [facility] [address] [facility] [id number] [address] [place] [address] 16 May, 2016 [facility] [address] [facility] [id number] [address] [place] [address] May, [facility] [address] [facility] [id number] [address] [place] [address] Apr, Chronic prescription opiate use Z79.899 and Rheumatoid arthritis involving multiple sites with positive rheumatoid factor M05.89 [facility] [address] [place] [id number] [address] [place] [address] Mar, [facility] [address] [place] [id number] [address] [place] [address] Feb, Dizziness of unknown cause R 42 and Other chronic pain G89.29 [place] [address] [place] [id number] [address] [place] [address] Feb, [facility] [address] [place] [address] [id number] [address] [place] [address] Feb, Shortness of breath R06.02 [facility] [address] [place] [id number] [address] [place] [address] January, [place] [address] [facility] [id number] [address] [place] [address] January, Rheumatoid arthritis involvi ng multiple sites with positive rheumatoid factor M05.89 ; Chronic prescription opiate use Z79.899 ; Hyperlipidemia, unspecified hyperlipidemia E78.5 ; Cough R05 ; Exposure to pneumonia Z20.828 ; Diarrhea, unspecified type R19.7 ; Weight loss R63.4 ; Lumbago with sciatica, right side M54.41 and Lumbago with sciatica, left side M54.42 [facility] [address] [id number] [address] [place] [address] Dec, [facility] [address] [facility] [id number] [address] [place] [id number] Dec, Bronchitis J40 [facility] [address] [facility] [id number] [address] [place] [address] Nov, [facility] [address] [id number] [address] [place] [address] Nov, [facility] [address] [facility] [id number] [address] [place] [address] Nov, [facility] [address] [facility] [id number] [address] [place] [address] Nov, Bloody diarrhea R19.7 ; [place] n wall thickening K63.9 ; Shortness of breath R06.02 and Bladder wall thickening N32.89 [facility] [id number] [place] [id number] Oct, Dental examination Z01.20 [facility] [address] [id number] [address] [place] [address] Oct, [facility] [address] [facility] [id number] [address] [place] [address] Oct, Toothache K08.8 [facility] [address] [id number] [address] [place] [id number] Oct, Dental examination Z01.20 [facility] [address] [id number] [address] [place] [address] Oct, [facility] [address] [facility] [id number] [address] [place] [address] Sep, [facility] [address] [facility] [id number] [address] [place] [address] Sep, Burning with urination R30.0 [facility] [address] [facility] [id number] [address] [place] [address] Sep, Hematuria R31.9 ; Rheumatoid arthritis involving multiple sites with positive rheumatoid factor M05.89 and Rheumatoid arthritis flare M06.9 [place] [address] [address] [facility] [id number] [address] [place] [address] Aug, Hyperlipidemia, unspecified hyperlipidemia E78.5 and Hematuria R31.9 [place] [address] [place] [id number] [address] [place] [address] Aug, Hematuria R31.9 ; Chronic ki dney disease, stage 1 N18.1 and Hyperlipidemia, unspecified hyperlipidemia E78.5 [place] [address] [address] [facility] [id number] [address] [place] [address] Aug, Rheumatoid arthritis involvi ng multiple sites with positive rheumatoid factor M05.89 ; Asthma exacerbation J45.901 ; Hematuria R31.9 ; Hyperlipidemia, unspecified hyperlipidemia E78.5 and Chronic kidney disease, stage 1 N18.1 [place] [address] [place] [id number] [address] [place] [address] Aug, [place] [address] [place] [id number] [address] [place] [address] Jul, [place] [address] [place] [id number] [address] [place] [address] Jul, Lumbosacral radiculopathy M5 4.17 [place] [address] [place] [id number] [address] [place] [address] Jul, [place] [address] [place] [id number] [address] [place] [address] Jun, Rheumatoid arthritis involvi ng multiple sites with positive rheumatoid factor M05.89 ; Hyperlipidemia, unspecified hyperlipidemia E78.5 ; Lumbosacral radiculopathy M54.17 ; Carpal tunnel syndrome, right upper limb G56.01 and Carpal tunnel syndrome, left upper limb G56.02 [place] [address] [place] [id number] [address] [place] [address] Jun, [facility] [address] [id number] [address] [place] [address] May, Lumbar radicular pain 724.4 and Dysuria 788.1 [facility] [address] [id number] [address] [place] [phone] 08 May, 2015 Rheumatoid arthritis 714.0 ; Lumbar radicular pain 724.4 ; Burn 949.0 and Thoracic back pain 724.1 [facility] [address] [id number] [address] [place] [id number] May, [facility] [address] [id number] [address] [place] [address] May, [facility] [address] [id number] [address] [place] [address] Apr, [facility] [address] [facility] [id number] [address] [place] [id number] Mar, Hyperlipidemia 272.4 [facility] [address] [facility] [id number] [address] [place] [address] Mar, [facility] [address] [facility] [id number] [address] [place] [address] Mar, [facility] [address] [facility] [id number] [address] [place] [address] Mar, Diarrhea 787.91 ; Chronic ki dney disease, unspecified 585.9 ; Hyperlipidemia 272.4 and Asthma 493.90 [facility] [address] [id number] [address] [place] [address] Mar, [facility] [address] [facility] [id number] [address] [place] [id number] Mar, Gastroenteritis 558.9 [facility] [address] [facility] [id number] [address] [place] [address] Feb, [facility] [address] [facility] [id number] [address] [place] [id number] January, [facility] [address] [id number] [address] [place] [address], [place] [address] January, [facility] [address] [id number] [address] [place] [address], [place] [address] Dec, [facility] [address] [id number] [address] [place] [address], [place] [address] Dec, [facility] [address] [id number] [address] [place] [address], [place] [address] Nov, [facility] [address] [id number] [address] [place] [address], [place] [address] Nov, [facility] [address] [id number] [address] [place] [address], [place] [address] Nov, [facility] [address] [id number] [address] [place] [address], [place] [address] Nov, [facility] [address] [id number] [address] [place] [address], [place] [address] Nov, [facility] [address] [id number] [address] [place] [address], [place] [address] Nov, [facility] [address] [id number] [address] [place] [address], [place] [address] Oct, [facility] [address] [id number] [address] [place] [address], [place] [address] Oct, [facility] [address] [id number] [address] [place] [phone] Sep, [facility] [address] [id number] [address] [place] [address], [place] [address] Sep, [facility] [address] [id number] [address] [place] [address], [place] [address] Sep, [facility] [address] [id number] [address] [place] [address], [place] [address] Sep, [facility] [address] [id number] [address] [place] [id number] Sep, [facility] [address] [id number] [address] [place] [address], [place] [address] Sep, [facility] [address] [id number] [address] [place] [address], [place] [address] Aug, [facility] [address] [id number] [address] [place] [address], [place] [address] Aug, [facility] [address] [id number] [address] [place] [address], [place] [address] Aug, [facility] [address] [id number] [address] [place] [address], [place] [address] Aug, [facility] [address] [id number] [address] [place] [address], [place] [address] Jul, [facility] [address] [id number] [address] [place] [address], [place] [address] Jul, [facility] [address] [id number] [address] [place] [address], [place] [address] Jul, [facility] [address] [id number] [address] [place] [address], [place] [id number] Jul, [facility] [address] [id number] [address] [place] [address], [place] [id number] Jul, [facility] [address] [id number] [address] [place] [address], [place] [id number] Jul, [facility] [address] [id number] [address] [place] [id number] Jul, [facility] [address] [id number] [address] [place] [address], [place] [id number] Jul, [facility] [address] [id number] [address] [place] [address], [place] [id number] Jul, [facility] [address] [id number] [address] [place] [address], [place] [id number] Jun, [facility] [address] [id number] [facility] [address] 15 Jun, 2013 [facility] [address] [id number] [address] [place] [address], [place] [id number] 15 Jun, 2014 [facility] [address] [id number] [address] [place] [address], [place] [id number] 25 Sep, 2013 [facility] [address] [id number] [address] [place] [address], [place] [id number] 25 Sep, 2013 [facility] [address] [id number] [address] [place] [address], [place] [id number] 24 Sep, 2013 [facility] [address] [id number] [address] [place] [address], [place] [id number] 24 May, 2013 [facility] [address] [id number] [address] [place] [address], [place] [id number] 24 May, 2013 [facility] [address] [id number] [address] [place] [address], [place] [id number] 24 May, 2013 [facility] [address] [id number] [address] [place] [address], [place] [id number] 19 May, 2013 [facility] [address] [address] [id number] [address] [place] [address], [place] [phone] 19 May, 2013 [facility] [address] [id number] [address] [place] [address], [place] [phone] 11 May, 2013 [facility] [address] [id number] [address] [place] [address], [place] [id number] 11 May, 2013 [facility] [address] [id number] [address] [place] [address], [place] [phone] 11 Sep, 2013 [facility] [address] [id number] [address] [place] [address], [place] [id number] 11 Sep, 2013 [facility] [address] [id number] [address] [place] [address], [place] [id number] 10 Sep, 2013 [facility] [address] [id number] [address] [place], [place] [address] [address] May, [facility] [address] [facility] [id number] [address] [place] [phone] May, [facility] [address] [facility] [id number] [address] [place] [phone] May, [facility] [address] [facility] [id number] [address] [place] [phone] Apr, [facility] [address] [facility] [id number] [address] [place] [phone] Apr, [facility] [address] [facility] [id number] [address] [place] [phone] Aug, [facility] [address] [facility] [id number] [address] [place] [phone] Jul, IMMUNIZATIONS Vaccine Route Administration Date Status DEPO MEDROL 40 MG/ML IM Intramuscular Sep 15, 2017 Administer ed SOCIAL HISTORY Never Assessed REASON FOR VISIT low Fever at home , sore throat , congestion x 1 fermin -- keya stewart PLAN OF CARE Activity Details Follow Up prn Reason: VITAL SIGNS Height 66 in 2017-09-15 Weight 144.0 lbs 2017-09-15 Temperature 98.9 degrees Fahrenheit 2017-09-15 Heart Rate 78 bpm 2017-09-15 Respiratory Rate 20 2017-09-15 BMI 23.24 kg/m2 2017-09-15 Blood pressure systolic 136 mmHg 2017-09-15 Blood pressure diastolic 78 mmHg 2017-09-15 MEDICATIONS Medication Instructions Dosage Frequency Start Date End Date Duration S tatus OxyContin 15 mg Orally every 12 hrs 1 tablet 12h Aug, 28 days Active Leflunomide 20 MG Orally Once a day 1 tablet 24h Active Senokot S 8.6-50 MG Orally 2 times a day 2 tablets 12h Not-Taking Gabapentin 800 MG Orally Three times a day 1 tablet 8h Active Omeprazole 40 mg Orally Once a day 1 capsule 24h Jul, 90 days Active tylenol Active Gabapentin 600 MG Orally Three times a day 1 tablet 8h Nov, 30 day(s) Not-Taking Ipratropium-Albuterol 0.5-2.5 (3) MG/3ML Inhalation every 6 hrs 3 ml as needed 6h Active PredniSONE 5 MG Orally Once a day 1 tablet 24h Dec, Active Tessalon Perles 100 MG Orally Three times a day 1 capsule as needed 8h Aug, Not-Taking Cymbalta 60 mg Orally Once a day 1 capsule 24h Apr, 90 days Active Albuterol Sulfate (2.5 MG/3ML) 0.083% Inhalation every 4 hrs 3 ml a s needed 4h Not-Taking Gabapentin 300 MG Orally Three times a day 1 capsule 8h Nov, 30 day(s) Not-Taking Tessalon Perles 100 mg Orally Three times a day 1 capsule as needed 8h Aug, 6 Sep, 2017 10 days Active Docusate Sodium 100 MG Orally twice a day 1 capsule as needed 12h Not-Taking Symbicort 160-4.5 MCG/ACT Inhalation Twice a day 2 puffs 12h Active Dulcolax 10 MG Rectal Once a day 1 suppository as needed 24h Not-Taking Cyclobenzaprine HCl 10 mg Orally Three times a day as needed 1 tablet 90 Active Ibuprofen 200 MG Orally every 4-6 hours as needed 2 tablets Not-Taking Linzess 290 MCG Orally Once a day 1 capsule 24h Not-Taking ProAir HFA 108 (90 Base) MCG/ACT Inhalation every 4 hrs 2 puffs as needed 4h Mar, Active Bystolic 10 mg Orally 2 times a day 1 tablet 12h 90 days Active Tylenol Arthritis Pain by oral route 2 times a day 2tablets 12h Active Simvastatin 40 mg Orally Once a day 1 tablet in the evening 24h Mar, Not-Taking RESULTS No Results PROCEDURES Procedure Date Ordered Result Body Site DEPO MEDROL 40 MG/ML Sep 15, 2017 THER/PROPH/DIAG INJ, SC/IM Sep 15, 2017 [facility] VISIT ESTABLISHED PATIENT Sep 15, 2017 INSTRUCTIONS MEDICATIONS ADMINISTERED No Known [...]
--- OUTSIDE RECORDS SUMMARY | 2020-02-27 15:54 | XMS REPORT ---
Author Author Beba GUO [facility] Address [address] [place] [address] Care Team Providers Care Carpenter [employer] Name Role Phone TOBI GUO Unavailable PROBLEMS Type Condition ICD9-CM Code CHY28-AG Code Onset Dates Condition S tatus SNOMED Code Problem Colon wall thickening K63.9 Active 388212439 Problem Mild persistent asthma without complication J45.30 Active 516155468 Problem Osteoporosis M81.0 Active 1880919 6 Problem Generalized anxiety disorder F41.1 A ctive 84624369 Problem Severe episode of recurrent major depressive disorder, without psychotic features F33.2 Active 16721375 Problem Moderate persistent asthma with acute exacerbation J45.41 Active 345578814160039 Problem Gastroesophageal reflux disease, esophagitis pre sence not specified K21.9 Active 987148214 Problem Asthma exacerbation J45.901 Active 393948893 Problem Chronic pain syndrome G89.4 Active 384923768 Problem Chronic constipation K59.00 Active 027495931 Problem Essential hypertension I10 Active 58747460 Problem Chronic kidney disease, stage 1 N18.1 Active 417557708 Problem Hyperlipidemia, unspecified hyperlipidemia E78.5 Active 29153676 Problem Pernicious anemia D51.0 Active 84 772197 Problem Atrophy of left kidney N26.1 Active 699817449 Problem Vitamin D deficiency E55.9 Active 59771888 Problem Chronic prescription opiate use Z79.899 Active 080408358 Problem Rheumatoid arthritis involvi ng multiple sites with positive rheumatoid factor M05.89 Active 567051366 Problem Bladder wall thickening N32.89 Active 720160301 ALLERGIES Unknown Allergies SOCIAL HISTORY No smoking Hx information available PLAN OF CARE VITAL SIGNS MEDICATIONS Medication Instructions Dosage Frequency Start Date End Date Duration S tatus Tylenol Arthritis Pain by oral route 2 times a day 2tablets 12h Active Omeprazole 40 mg Orally Once a day 1 capsule 24h Jul, 90 days Active Bystolic 10 mg Orally 2 times a day 1 tablet 12h 90 days Active Ibuprofen 200 MG Orally every 4-6 hours as needed 2 tablets Active Gabapentin 900 MG Orally Three times a day 1 capsule 8h May, 90 days Active Docusate Sodium 100 MG Orally twice a day 1 capsule as needed 12h Active Tessalon Perles 100 MG Orally Three times a day 1 capsule as needed 8h Aug, Active OxyContin 15 MG Orally every 12 hrs 1 tablet 12h Jul, 28 days Active Doxycycline Hyclate 100 MG Orally every 12 hrs 1 capsule 12h Sep, Sep, Active PredniSONE 10 mg Orally 6 tabs daily then decrease by 1 t ab every other day as directed Sep, Sep, Active Ipratropium-Albuterol 0.5-2.5 (3) MG/3ML Inhalation every 6 hrs 3 ml as needed 6h Active RESULTS No Results PROCEDURES No Known procedures IMMUNIZATIONS No Known Immunizations
--- OUTSIDE RECORDS SUMMARY | 2020-02-27 15:54 | XMS REPORT ---
Author Author Beba CORBIN [facility] Address [address] [place] [address] Care Team Providers [facility] [employer] Name Role Phone EDWARD CORBIN Unavailable PROBLEMS Type Condition ICD9-CM Code DYY12-BM Code Onset Dates Condition S tatus SNOMED Code Problem Colon wall thickening K63.9 Active 617231821 Problem Mild persistent asthma without complication J45.30 Active 646512699 Problem Osteoporosis M81.0 Active 4768688 6 Problem Generalized anxiety disorder F41.1 A ctive 51445748 Problem Severe episode of recurrent major depressive disorder, without psychotic features F33.2 Active 41299635 Problem Moderate persistent asthma with acute exacerbation J45.41 Active [id number] Problem Gastroesophageal reflux disease, esophagitis pre sence not specified K21.9 Active 221498914 Problem Asthma exacerbation J45.901 Active 791673041 Problem Chronic pain syndrome G89.4 Active 123151308 Problem Chronic constipation K59.00 Active 313412968 Problem Essential hypertension I10 Active 62692185 Problem Chronic kidney disease, stage 1 N18.1 Active 340496869 Problem Hyperlipidemia, unspecified hyperlipidemia E78.5 Active 85379960 Problem Pernicious anemia D51.0 Active 84 554755 Problem Atrophy of left kidney N26.1 Active 496052556 Problem Vitamin D deficiency E55.9 Active 79150393 Problem Chronic prescription opiate use Z79.899 Active 683192053 Problem Rheumatoid arthritis involvi ng multiple sites with positive rheumatoid factor M05.89 Active 891169224 Problem Bladder wall thickening N32.89 Active 104148986 ALLERGIES No Information ENCOUNTERS Encounter Location Date Diagnosis [facility] [place] [address] [facility] [id number] [address] [place] [phone] Mar, [facility] [place] [address] [facility] [id number] [address] [place] [id number] Feb, [place] [address] [place] [id number] [address] [place] [address] Feb, Chronic pain syndrome G89.4 [place] [address] [address] Feb, Moderate persistent asthma w ith acute exacerbation J45.41 and Persistent cough for 3 weeks or longer R05 [place] [address] [address] January, [place] [address] [address] January, Moderate persistent asthma w ith acute exacerbation J45.[address] [address] January, Chronic pain syndrome G89.4 [place] [address] [address] January, Tachycardia R00.0 and Modera te persistent asthma with acute exacerbation J45.41 [place] [address] [address] January, Tachycardia R00.0 ; Moderate persistent asthma with acute exacerbation J45.41 ; Gastroesophageal reflux disease, esophagitis presence not specified K21.9 ; Hyperlipidemia, unspecified hyperlipidemia E78.5 and Chronic pain syndrome G89.4 [place] [address] [address] Dec, Medicare annual wellness vis it, initial [...] immunization Z23 and Chronic pain syndrome G89.[address] [address] Dec, Chronic pain syndrome G89.4 [facility] [place] [address] [facility] [id number] [address] [place] [id number] Dec, [facility] [place] [address] [facility] [id number] [address] [place] [address] Nov, [facility] [place] [address] [facility] [id number] [address] [place] [address] Nov, Chronic pain syndrome G89.4 [facility] [place] [address] [facility] [id number] [address] [place] [address] Oct, Chronic pain syndrome G89.4 [facility] [place] [address] [place] [id number] [address] [place] [address] Oct, Chronic kidney disease, stag e 1 N18.1 [facility] [place] [address] [place] [id number] [address] [place] [address] Oct, Chronic prescription opiate use Z79.899 ; Cough R05 ; Asthma exacerbation J45.901 ; Elevated liver enzymes R74.8 ; Rheumatoid arthritis involving multiple sites with positive rheumatoid factor M05.89 and Chronic pain syndrome G89.4 [facility] [place] [address] [place] [id number] [address] [place] [address] Sep, Chronic pain syndrome G89.4 [facility] [place] [address] [place] [id number] [address] [place] [address] Sep, [facility] [place] [address] [place] [id number] [address] [place] [id number] Aug, Acute bronchitis, unspecifie d organism J20.9 [facility] [place] [address] [place] [id number] [address] [place] [address] Aug, Chronic pain syndrome G89.4 [facility] [place] [address] [facility] [id number] [address] [place] [address] Jul, Chronic pain syndrome G89.4 [facility] [place] [address] [place] [id number] [address] [place] [id number] Jun, Chronic pain syndrome G89.4 [facility] [place] [address] [facility] [id number] [address] [place] [address] 29 May, 2017 Rheumatoid arthritis involvi ng multiple sites with positive rheumatoid factor M05.89 [facility] [place] [address] [place] [id number] [address] [place] [address] May, Gastroesophageal reflux dise ase, esophagitis presence not specified K21.9 and Chronic pain syndrome G89.4 [facility] [place] [address] [facility] [id number] [address] [place] [address] May, [place] [address] [place] [id number] [place] [address] May, Chronic kidney disease, stag e 1 N18.1 and Esophageal candidiasis B37.81 [place] [address] [place] [id number] [address] [place] [address] May, Chronic kidney disease, stag e 1 N18.1 [place] [address] [place] [id number] [address] [place] [address] May, Cough R05 ; Fever, unspecifi ed fever cause R50.9 ; Rheumatoid arthritis involving multiple sites with positive rheumatoid factor M05.89 and Chronic prescription opiate use Z79.899 [place] [address] [place] [id number] [address] [place] [address] Apr, [place] [address] [place] [id number] [address] [place] [address] Apr, Cough R05 [place] [address] [place] [id number] [address] [place] [address] Apr, Asthma exacerbation J45.901 [place] [address] [place] [id number] [address] [place] [address] Apr, [place] [address] [place] [id number] [address] [place] [address] Apr, Generalized anxiety disorder F41.1 and Severe episode of recurrent major depressive disorder, without psychotic features F33.2 [facility] [place] [address] [facility] [id number] [address] [place] [address] Mar, [facility] [place] [address] [facility] [id number] [address] [place] [address] Feb, Chronic pain syndrome G89.4 [place] [address] [facility] [id number] [address] [place] [address] Feb, Acute non-recurrent maxillar y sinusitis J01.00 [facility] [place] [address] [facility] [id number] [address] [place] [address] Feb, Acute non-recurrent frontal sinusitis J01.10 [place] [address] [facility] [id number] [address] [place] [address] Feb, Chronic pain syndrome G89.4 [place] [address] [facility] [id number] [address] [place] [address] January, Acute cystitis with hematuri a N30.01 [place] [address] [facility] [id number] [address] [place] [address] January, Acute cystitis with hematuri a N30.01 ; Dysuria R30.0 and Moderate persistent asthma with acute exacerbation J45.41 [place] [address] [facility] [id number] [address] [place] [address] January, [place] [address] [facility] [id number] [address] [place] [address] January, Chronic pain syndrome G89.4 [place] [address] [facility] [id number] [address] [place] [address] January, Asthma exacerbation J45.901 [place] [address] [facility] [id number] [address] [place] [address] January, Asthma exacerbation J45.901 [place] [address] [facility] [id number] [address] [place] [address] Dec, Cough R05 ; Numbness in both hands R20.0 ; Ground glass opacity present on imaging of lung R91.8 ; Hypoxia R09.02 and Asthma exacerbation J45.901 [place] [address] [place] [id number] [address] [place] [address] Dec, Chronic pain syndrome G89.4 [place] [address] [place] [id number] [address] [place] [address] Nov, Chronic prescription opiate use Z79.899 ; Rheumatoid arthritis involving multiple sites with positive rheumatoid factor M05.89 ; Moderate persistent asthma with acute exacerbation J45.41 ; Pneumonia of right lower lobe due to infectious organism J18.1 ; Chronic pain syndrome G89.4 ; Gastroesophageal reflux disease, esophagitis presence not specified K21.9 and Hyperlipidemia, unspecified hyperlipidemia E78.5 [place] [id number] [place] [address] Nov, Rheumatoid arthritis involvi ng multiple sites with positive rheumatoid factor M05.89 [place] [address] [place] [id number] [address] [place] [address] Oct, [place] [address] [place] [id number] [place] [address] Oct, Essential hypertension I10 [place] [address] [facility] [id number] [address] [place] [address] Sep, Hypoxia R09.02 and Ground gl ass opacity present on imaging of lung R91.8 [place] [address] [place] [id number] [address] [place] [address] Sep, Moderate persistent asthma w ith acute exacerbation J45.41 [facility] [address] [place] [id number] [place] [id number] Sep, [place] [address] [facility] [id number] [address] [place] [address] Sep, Chronic constipation K59.00 and Moderate persistent asthma with acute exacerbation J45.41 [place] [address] [place] [id number] [address] [place] [address] Sep, Moderate persistent asthma w ith acute exacerbation J45.41 [facility] [place] [address] [facility] [id number] [address] [place] [id number] 30 Aug, 2016 [facility] [place] [address] [facility] [id number] [address] [place] [address] Aug, [facility] [place] [address] [place] [id number] [place] [address] Aug, [place] [address] [facility] [id number] [address] [place] [address] Aug, Rheumatoid arthritis involvi ng multiple sites with positive rheumatoid factor M05.89 ; Essential hypertension I10 ; Hyperlipidemia, unspecified hyperlipidemia E78.5 ; Chronic constipation K59.00 and Moderate persistent asthma with acute exacerbation J45.41 [place] [address] [address] Aug, Bronchitis J40 [place] [address] [place] [id number] [address] [place] [address] Aug, Rheumatoid arthritis involvi ng multiple sites with positive rheumatoid factor M05.89 [place] [address] [address] Aug, Pharyngitis, unspecified pablito ology J02.9 and Acute nasopharyngitis J00 [place] [address] [place] [id number] [address] [place] [address] Aug, [place] [address] [facility] [id number] [address] [place] [address] Jul, [place] [address] [place] [id number] [address] [place] [address] Jul, Rheumatoid arthritis involvi ng multiple sites with positive rheumatoid factor M05.89 ; Essential hypertension I10 ; Hyperlipidemia, unspecified hyperlipidemia E78.5 ; Rash R21 ; Mild persistent asthma with acute exacerbation J45.31 ; Hematuria R31.9 ; Osteoporosis M81.0 and Gastroesophageal reflux disease, esophagitis presence not specified K21.9 [facility] [place] [address] [facility] [id number] [address] [place] [id number] 18 Jun, 2016 [facility] [place] [address] [facility] [id number] [address] [place] [id number] 10 Jun, 2016 Dysuria R30.0 [facility] [address] [facility] [id number] [address] [place] [address] 05 Jun, 2016 Acute non-recurrent maxillar y sinusitis J01.00 and Dysuria R30.0 [facility] [place] [address] [facility] [id number] [address] [place] [address] 16 May, 2016 [facility] [place] [address] [facility] [id number] [address] [place] [id number] 15 May, 2016 [facility] [place] [address] [facility] [id number] [address] [place] [address] Apr, Chronic prescription opiate use Z79.899 and Rheumatoid arthritis involving multiple sites with positive rheumatoid factor M05.89 [facility] [place] [address] [facility] [id number] [address] [place] [address] Mar, [facility] [place] [address] [facility] [id number] [address] [place] [address] Feb, Dizziness of unknown cause R 42 and Other chronic pain G89.29 [facility] [place] [address] [facility] [id number] [address] [place] [phone] Feb, [facility] [place] [address] [facility] [id number] [address] [place] [address] Feb, Shortness of breath R06.02 [facility] [place] [address] [facility] [id number] [address] [place] [id number] January, [facility] [place] [address] [facility] [id number] [address] [place] [address] January, Rheumatoid arthritis involvi ng multiple sites with positive rheumatoid factor M05.89 ; Chronic prescription opiate use Z79.899 ; Hyperlipidemia, unspecified hyperlipidemia E78.5 ; Cough R05 ; Exposure to pneumonia Z20.828 ; Diarrhea, unspecified type R19.7 ; Weight loss R63.4 ; Lumbago with sciatica, right side M54.41 and Lumbago with sciatica, left side M54.42 [facility] [place] [address] [place] [id number] [address] [place] [address] Dec, [facility] [place] [address] [place] [id number] [place] [address] Dec, Bronchitis J40 [facility] [place] [address] [facility] [id number] [place] [id number] Nov, [facility] [place] [address] [place] [id number] [place] [address] Nov, [facility] [place] [address] [place] [id number] [place] [address] Nov, [facility] [place] [address] [address] Nov, Bloody diarrhea R19.7 ; [place] n wall thickening K63.9 ; Shortness of breath R06.02 and Bladder wall thickening N32.89 [facility] [address] [place] [id number] [place] [id number] 15 Oct, 2015 Dental examination Z01.20 [facility] [place] [address] [place] [id number] [address] [place] [id number] 15 Oct, 2015 [facility] [place] [address] [place] [id number] [address] [place] [id number] Oct, Toothache K08.8 [facility] [address] [place] [id number] [place] [address] [id number] 11 Oct, 2015 Dental examination Z01.20 [facility] [place] [address] [place] [id number] [address] [place] [id number] 02 Oct, 2015 [facility] [place] [address] [place] [id number] [address] [place] [address] Sep, [place] [address] [facility] [id number] [address] [place] [address] Sep, Burning with urination R30.0 [place] [address] [facility] [id number] [address] [place] [address] Sep, Hematuria R31.9 ; Rheumatoid arthritis involving multiple sites with positive rheumatoid factor M05.89 and Rheumatoid arthritis flare M06.9 [place] [address] [facility] [id number] [address] [place] [id number] Aug, Hyperlipidemia, unspecified hyperlipidemia E78.5 and Hematuria R31.9 [place] [address] [facility] [id number] [address] [place] [address] Aug, Hematuria R31.9 ; Chronic ki dney disease, stage 1 N18.1 and Hyperlipidemia, unspecified hyperlipidemia E78.5 [place] [address] [place] [id number] [address] [place] [address] Aug, Rheumatoid arthritis involvi ng multiple sites with positive rheumatoid factor M05.89 ; Asthma exacerbation J45.901 ; Hematuria R31.9 ; Hyperlipidemia, unspecified hyperlipidemia E78.5 and Chronic kidney disease, stage 1 N18.1 [place] [address] [facility] [id number] [address] [place] [address] Aug, [place] [address] [place] [id number] [address] [place] [address] Jul, [place] [address] [facility] [id number] [address] [place] [address] Jul, Lumbosacral radiculopathy M5 4.17 [place] [address] [facility] [id number] [address] [place] [address] Jul, [place] [address] [place] [id number] [address] [place] [address] Jun, Rheumatoid arthritis involvi ng multiple sites with positive rheumatoid factor M05.89 ; Hyperlipidemia, unspecified hyperlipidemia E78.5 ; Lumbosacral radiculopathy M54.17 ; Carpal tunnel syndrome, right upper limb G56.01 and Carpal tunnel syndrome, left upper limb G56.02 [facility] [place] [address] [id number] Jun, [facility] [place] [address] [place] [id number] [place] [address] May, Lumbar radicular pain 724.4 and Dysuria 788.1 [facility] [place] [address] [place] [id number] [place] [address] 08 May, 2015 Rheumatoid arthritis 714.0 ; Lumbar radicular pain 724.4 ; Burn 949.0 and Thoracic back pain 724.1 [facility] [place] [address] [address] May, [facility] [place] [address] [address] May, [facility] [place] [address] [address] Apr, [facility] [place] [address] [address] Mar, Hyperlipidemia 272.4 [facility] [place] [address] [place] [id number] [place] [address] Mar, [facility] [place] [address] [address] Mar, [facility] [place] [address] [address] Mar, Diarrhea 787.91 ; Chronic ki dney disease, unspecified 585.9 ; Hyperlipidemia 272.4 and Asthma 493.90 [facility] [place] [address] [place] [id number] [address] [place] [id number] Mar, [facility] [place] [address] [place] [id number] [place] [address] Mar, Gastroenteritis 558.9 [facility] [address] [id number] [address] [place] [address], [place] [address] 17 Feb, 2015 [facility] [address] [id number] [address] [place] [address], [place] [address] January, [facility] [address] [id number] [address] [place] [address], [place] [id number] January, [facility] [address] [id number] [address] [place] [address], [place] [id number] Dec, [facility] [address] [id number] [address] [place] [address], [place] [id number] Dec, [facility] [address] [id number] [address] [place] [address], [place] [id number] Nov, [facility] [address] [id number] [address] [place] [address], [place] [id number] Nov, [facility] [address] [id number] [address] [place] [address], [place] [id number] Nov, [facility] [address] [id number] [address] [place] [address], [place] [id number] Nov, [facility] [address] [id number] [address] [place] [address], [place] [id number] Nov, [facility] [address] [id number] [address] [place] [address], [place] [id number] Nov, [facility] [address] [id number] [address] [place] [address], [place] [id number] 16 Oct, 2014 [facility] [address] [id number] [address] [place] [address], [place] [id number] Oct, [facility] [address] [id number] [address] [place] [address], [place] [id number] Sep, [facility] [address] [id number] [address] [place] [address], [place] [id number] Sep, [facility] [address] [id number] [address] [place] [address], [place] [id number] Sep, [facility] [address] [id number] [address] [place] [address], [place] [id number] Sep, [facility] [address] [id number] [address] [place] [address], [place] [id number] Sep, [facility] [address] [id number] [address] [place] [address], [place] [id number] Sep, [facility] [address] [id number] [address] [place] [address], [place] [address] Aug, [facility] [address] [id number] [address] [place] [address], [place] [id number] Aug, [facility] [address] [id number] [address] [place] [address], [place] [id number] Aug, [facility] [address] [id number] [address] [place] [address], [place] [id number] Aug, [facility] [address] [id number] [address] [place] [address], [place] [id number] Jul, [facility] [address] [id number] [address] [place] [address], [place] [id number] Jul, [facility] [address] [id number] [address] [place] [address], [place] [id number] Jul, [facility] [address] [id number] [address] [place] [address], [place] [id number] Jul, [facility] [address] [id number] [address] [place] [id number] Jul, [facility] [address] [id number] [address] [place] [address], [place] [id number] Jul, [facility] [address] [id number] [address] [place] [address], [place] [id number] Jul, [facility] [address] [id number] [address] [place] [address], [place] [id number] Jul, [facility] [address] [id number] [address] [place] [address], [place] [id number] 05 Jul, 2014 [facility] [address] [id number] [address] [place] [address], [place] [id number] 31 Jun, 2014 [facility] [address] [id number] [address] [place] [address], [place] [id number] 15 Jun, 2014 [facility] [address] [id number] [address] [place] [address], [place] [id number] 15 Jun, 2014 [facility] [address] [id number] [address] [place] [address], [place] [id number] 25 May, 2013 [facility] [address] [id number] [address] [place] [address], [place] [id number] 25 May, 2013 [facility] [address] [id number] [address] [place] [address], [place] [id number] 24 May, 2013 [facility] [address] [id number] [address] [place] [address], [place] [id number] 24 May, 2013 [facility] [address] [id number] [address] [place] [address], [place] [address] 24 May, 2013 [facility] [address] [id number] [address] [place] [address], [place] [id number] 24 May, 2013 [facility] [address] [id number] [address] [place] [address], [place] [id number] 19 May, 2013 [facility] [address] [id number] [address] [place] [address], [place] [id number] 19 May, 2013 [facility] [address] [id number] [address] [place] [address], [place] [id number] 11 May, 2013 [facility] [address] [id number] [address] [place] [address], [place] [id number] 11 May, 2013 [facility] [address] [id number] [address] [place] [address], [place] [id number] 11 May, 2013 [facility] [address] [id number] [address] [place] [address], [place] [address] May, [facility] [place] [address] [id number] [address] [place] [id number] May, [facility] [place] [address] [id number] [address] [place] [id number] May, [facility] [place] [address] [id number] [address] [place] [id number] May, [facility] [place] [address] [id number] [address] [place] [id number] May, [facility] [place] [address] [id number] [address] [place] [id number] Apr, [facility] [place] [address] [id number] [address] [place] [id number] Apr, [facility] [place] [address] [id number] [address] [place] [id number] Aug, [facility] [place] [address] [id number] [address] [place] [id number] Jul, IMMUNIZATIONS No Known Immunizations SOCIAL HISTORY [...]
--- OUTSIDE RECORDS SUMMARY | 2020-02-27 15:55 | XMS REPORT ---
Author Author Beba CORBIN [facility] Address [address] [place] [address] Care Team Providers Care Entry Level Paralegal Name Role Phone EMERALDEDWARD JEFFERS Unavailable PROBLEMS Type Condition ICD9-CM Code VFA13-VT Code Onset Dates Condition S tatus SNOMED Code Problem Colon wall thickening K63.9 Active 739995779 Problem Mild persistent asthma without complication J45.30 Active 726416215 Problem Osteoporosis M81.0 Active 1847365 6 Problem Generalized anxiety disorder F41.1 A ctive 60834777 Problem Severe episode of recurrent major depressive disorder, without psychotic features F33.2 Active 86107603 Problem Moderate persistent asthma with acute exacerbation J45.41 Active [id number] Problem Gastroesophageal reflux disease, esophagitis pre sence not specified K21.9 Active 590182961 Problem Asthma exacerbation J45.901 Active 469878879 Problem Chronic pain syndrome G89.4 Active 706734604 Problem Chronic constipation K59.00 Active 782425178 Problem Essential hypertension I10 Active 45391519 Problem Chronic kidney disease, stage 1 N18.1 Active 200504959 Problem Hyperlipidemia, unspecified hyperlipidemia E78.5 Active 64824584 Problem Pernicious anemia D51.0 Active 84 815860 Problem Atrophy of left kidney N26.1 Active 122201325 Problem Vitamin D deficiency E55.9 Active 90530642 Problem Chronic prescription opiate use Z79.899 Active 765484499 Problem Rheumatoid arthritis involvi ng multiple sites with positive rheumatoid factor M05.89 Active 446031223 Problem Bladder wall thickening N32.89 Active 761491087 ALLERGIES No Information ENCOUNTERS Encounter Location Date Diagnosis [facility] [address] [facility] [id number] [address] [place] [address] Dec, [facility] [address] [facility] [id number] [address] [place] [address] Nov, [facility] [address] [facility] [id number] [address] [place] [address] Nov, Chronic pain syndrome G89.4 [facility] [address] [facility] [id number] [address] [place] [address] Oct, Chronic pain syndrome G89.4 [facility] [address] [facility] [id number] [address] [place] [address] Oct, Chronic kidney disease, stag e 1 N18.1 [facility] [address] [facility] [id number] [address] [place] [address] Oct, Chronic prescription opiate use Z79.899 ; Cough R05 ; Asthma exacerbation J45.901 ; Elevated liver enzymes R74.8 ; Rheumatoid arthritis involving multiple sites with positive rheumatoid factor M05.89 and Chronic pain syndrome G89.4 [facility] [address] [place] [id number] [address] [place] [address] Sep, Chronic pain syndrome G89.4 [facility] [address] [facility] [id number] [address] [place] [address] Sep, [facility] [address] [place] [id number] [address] [place] [address] Aug, Acute bronchitis, unspecifie d organism J20.9 [facility] [address] [place] [id number] [address] [place] [address] Aug, Chronic pain syndrome G89.4 [facility] [address] [facility] [id number] [address] [place] [address] Jul, Chronic pain syndrome G89.4 [facility] [address] [facility] [id number] [address] [place] [address] Jun, Chronic pain syndrome G89.4 [facility] [address] [facility] [id number] [address] [place] [address] May, Rheumatoid arthritis involvi ng multiple sites with positive rheumatoid factor M05.89 [facility] [address] [address] May, Gastroesophageal reflux dise ase, esophagitis presence not specified K21.9 and Chronic pain syndrome G89.4 [place] [address] [address] May, [place] [address] [address] May, Esophageal candidiasis B37.8 1 and Chronic kidney disease, stage 1 N18.1 [place] [address] [address] 11 May, 2017 Chronic kidney disease, stag e 1 N18.1 [place] [address] [address] 05 May, 2017 Cough R05 ; Fever, unspecifi ed fever cause R50.9 ; Rheumatoid arthritis involving multiple sites with positive rheumatoid factor M05.89 and Chronic prescription opiate use Z79.899 [place] [address] [address] Apr, [place] [address] [address] Apr, Cough R05 [place] [address] [address] Apr, Asthma exacerbation J45.901 [place] [address] [address] Apr, [place] [address] [address] Apr, Generalized anxiety disorder F41.1 and Severe episode of recurrent major depressive disorder, without psychotic features F33.2 [place] [address] [address] Mar, [place] [address] [address] Feb, Chronic pain syndrome G89.4 [facility] [address] [facility] [id number] [address] [place] [address] Feb, Acute non-recurrent maxillar y sinusitis J01.00 [facility] [address] [facility] [id number] [address] [place] [address] Feb, Acute non-recurrent frontal sinusitis J01.10 [facility] [address] [facility] [id number] [address] [place] [address] Feb, Chronic pain syndrome G89.4 [facility] [address] [facility] [id number] [address] [place] [address] January, Acute cystitis with hematuri a N30.01 [place] [address] [facility] [id number] [address] [place] [address] January, Acute cystitis with hematuri a N30.01 ; Dysuria R30.0 and Moderate persistent asthma with acute exacerbation J45.41 [place] [address] [facility] [id number] [address] [place] [address] January, [place] [address] [facility] [id number] [address] [place] [address] January, Chronic pain syndrome G89.4 [place] [address] [facility] [id number] [address] [place] [address] January, Asthma exacerbation J45.901 [place] [address] [place] [id number] [address] [place] [address] January, Asthma exacerbation J45.901 [place] [address] [facility] [id number] [address] [place] [address] Dec, Cough R05 ; Numbness in both hands R20.0 ; Ground glass opacity present on imaging of lung R91.8 ; Hypoxia R09.02 and Asthma exacerbation J45.901 [place] [address] [facility] [id number] [address] [place] [address] Dec, Chronic pain syndrome G89.4 [place] [address] [address] Nov, Chronic prescription opiate use Z79.899 ; Rheumatoid arthritis involving multiple sites with positive rheumatoid factor M05.89 ; Moderate persistent asthma with acute exacerbation J45.41 ; Pneumonia of right lower lobe due to infectious organism J18.1 ; Chronic pain syndrome G89.4 ; Gastroesophageal reflux disease, esophagitis presence not specified K21.9 and Hyperlipidemia, unspecified hyperlipidemia E78.[address] [address] Nov, Rheumatoid arthritis involvi ng multiple sites with positive rheumatoid factor M05.[address] [address] Oct, [address] [address] Oct, Essential hypertension I10 [address] [address] Sep, Hypoxia R09.02 and Ground gl ass opacity present on imaging of lung R91.[address] [address] Sep, Moderate persistent asthma w ith acute exacerbation J45.41 [facility] [address] [place] [id number] [place] [id number] Sep, [place] [address] [address] Sep, Chronic constipation K59.00 and Moderate persistent asthma with acute exacerbation J45.[address] [address] Sep, Moderate persistent asthma w ith acute exacerbation J45.41 [place] [address] [place] [id number] [address] [place] [address] Aug, [address] [address] Aug, [facility] [address] [facility] [id number] [address] [place] [address] Aug, [facility] [address] [facility] [id number] [address] [place] [address] Aug, Rheumatoid arthritis involvi ng multiple sites with positive rheumatoid factor M05.89 ; Essential hypertension I10 ; Hyperlipidemia, unspecified hyperlipidemia E78.5 ; Chronic constipation K59.00 and Moderate persistent asthma with acute exacerbation J45.41 [facility] [address] [facility] [id number] [address] [place] [address] Aug, Bronchitis J40 [facility] [address] [facility] [id number] [address] [place] [address] Aug, Rheumatoid arthritis involvi ng multiple sites with positive rheumatoid factor M05.89 [place] [address] [address] Aug, Pharyngitis, unspecified pablito ology J02.9 and Acute nasopharyngitis J00 [facility] [address] [place] [id number] [address] [place] [address] Aug, [facility] [address] [place] [id number] [place] [address] Jul, [facility] [address] [place] [id number] [address] [place] [address] Jul, Rheumatoid arthritis involvi ng multiple sites with positive rheumatoid factor M05.89 ; Essential hypertension I10 ; Hyperlipidemia, unspecified hyperlipidemia E78.5 ; Rash R21 ; Mild persistent asthma with acute exacerbation J45.31 ; Hematuria R31.9 ; Osteoporosis M81.0 and Gastroesophageal reflux disease, esophagitis presence not specified K21.9 [facility] [address] [facility] [id number] [address] [place] [address] Jun, [facility] [address] [place] [id number] [address] [place] [address] Jun, Dysuria R30.0 [facility] [address] [place] [id number] [address] [place] [address] Jun, Acute non-recurrent maxillar y sinusitis J01.00 and Dysuria R30.0 [facility] [address] [address] 16 May, 2016 [facility] [address] [address] 15 May, 2016 [place] [address] [address] Apr, Chronic prescription opiate use Z79.899 and Rheumatoid arthritis involving multiple sites with positive rheumatoid factor M05.89 [place] [address] [address] Mar, [place] [address] [address] Feb, Dizziness of unknown cause R 42 and Other chronic pain G89.29 [place] [address] [address] Feb, [place] [address] [address] Feb, Shortness of breath R06.02 [place] [address] [address] January, [place] [address] [address] January, Rheumatoid arthritis involvi ng multiple sites with positive rheumatoid factor M05.89 ; Chronic prescription opiate use Z79.899 ; Hyperlipidemia, unspecified hyperlipidemia E78.5 ; Cough R05 ; Exposure to pneumonia Z20.828 ; Diarrhea, unspecified type R19.7 ; Weight loss R63.4 ; Lumbago with sciatica, right side M54.41 and Lumbago with sciatica, left side M54.42 [place] [address] [address] Dec, [facility] [address] [id number] [address] [place] [address] Dec, Bronchitis J40 [facility] [address] [facility] [id number] [address] [place] [address] Nov, [facility] [address] [facility] [id number] [address] [place] [address] Nov, [facility] [address] [facility] [id number] [address] [place] [address] Nov, [facility] [address] [facility] [id number] [address] [place] [address] Nov, Bloody diarrhea R19.7 ; [place] n wall thickening K63.9 ; Shortness of breath R06.02 and Bladder wall thickening N32.89 [facility] [id number] [place] [id number] 15 Oct, 2015 Dental examination Z01.20 [facility] [address] [facility] [id number] [address] [place] [address] 15 Oct, 2015 [facility] [address] [facility] [id number] [address] [place] [address] Oct, Toothache K08.8 [facility] [address] [id number] [address] [place] [address] [id number] 11 Oct, 2015 Dental examination Z01.20 [facility] [address] [facility] [id number] [address] [place] [address] 02 Oct, 2015 [facility] [address] [facility] [id number] [address] [place] [address] Sep, [facility] [address] [facility] [id number] [address] [place] [address] Sep, Burning with urination R30.0 [facility] [address] [facility] [id number] [address] [place] [address] Sep, Hematuria R31.9 ; Rheumatoid arthritis involving multiple sites with positive rheumatoid factor M05.89 and Rheumatoid arthritis flare M06.9 [facility] [address] [id number] [address] [place] [address] Aug, Hyperlipidemia, unspecified hyperlipidemia E78.5 and Hematuria R31.9 [facility] [address] [id number] [address] [place] [address] Aug, Hematuria R31.9 ; Chronic ki dney disease, stage 1 N18.1 and Hyperlipidemia, unspecified hyperlipidemia E78.5 [place] [address] [id number] [address] [place] [address] Aug, Rheumatoid arthritis involvi ng multiple sites with positive rheumatoid factor M05.89 ; Asthma exacerbation J45.901 ; Hematuria R31.9 ; Hyperlipidemia, unspecified hyperlipidemia E78.5 and Chronic kidney disease, stage 1 N18.1 [place] [address] [id number] [address] [place] [address] Aug, [place] [address] [id number] [address] [place] [address] Jul, [place] [address] [id number] [address] [place] [address] Jul, Lumbosacral radiculopathy M5 4.17 [place] [address] [id number] [address] [place] [address] Jul, [place] [address] [id number] [address] [place] [address] Jun, Rheumatoid arthritis involvi ng multiple sites with positive rheumatoid factor M05.89 ; Hyperlipidemia, unspecified hyperlipidemia E78.5 ; Lumbosacral radiculopathy M54.17 ; Carpal tunnel syndrome, right upper limb G56.01 and Carpal tunnel syndrome, left upper limb G56.02 [facility] [address] [id number] [address] [place] [address] 15 Jun, 2015 [place] [address] [id number] [address] [place] [address] May, Lumbar radicular pain 724.4 and Dysuria 788.1 [facility] [address] [id number] [address] [place] [address] May, Rheumatoid arthritis 714.0 ; Lumbar radicular pain 724.4 ; Burn 949.0 and Thoracic back pain 724.1 [facility] [address] [id number] [address] [place] [address] May, [facility] [address] [id number] [address] [place] [address] May, [facility] [address] [id number] [address] [place] [address] Apr, [facility] [address] [facility] [id number] [address] [place] [address] Mar, Hyperlipidemia 272.4 [facility] [address] [place] [id number] [address] [place] [address] Mar, [facility] [address] [facility] [id number] [address] [place] [address] Mar, [facility] [address] [place] [id number] [address] [place] [address] Mar, Diarrhea 787.91 ; Chronic ki dney disease, unspecified 585.9 ; Hyperlipidemia 272.4 and Asthma 493.90 [facility] [address] [facility] [id number] [address] [place] [id number] Mar, [facility] [address] [facility] [id number] [address] [place] [address] Mar, Gastroenteritis 558.9 [facility] [address] [facility] [id number] [address] [place] [address] Feb, [facility] [address] [facility] [id number] [address] [place] [address] January, [facility] [address] [place] [id number] [address] [place] [phone] January, [facility] [address] [id number] [address] [place] [address], [place] [address] 14 Dec, 2014 [facility] [address] [id number] [address] [place] [address], [place] [address] Dec, [facility] [address] [id number] [address] [place] [address], [place] [address] Nov, [facility] [address] [id number] [address] [place] [address], [place] [address] Nov, [facility] [address] [id number] [address] [place] [address], [place] [address] Nov, [facility] [address] [id number] [address] [place] [address], [place] [address] Nov, [facility] [address] [id number] [address] [place] [address], [place] [address] Nov, [facility] [address] [id number] [address] [place] [address], [place] [address] Nov, [facility] [address] [id number] [address] [place] [address], [place] [address] Oct, [facility] [address] [id number] [address] [place] [address], [place] [address] Oct, [facility] [address] [id number] [address] [place] [address], [place] [address] Sep, [facility] [address] [id number] [address] [place] [address], [place] [address] Sep, [facility] [address] [id number] [address] [place] [address], [place] [address] Sep, [facility] [address] [id number] [address] [place] [address], [place] [address] Sep, [facility] [address] [id number] [address] [place] [address], [place] [address] Sep, [facility] [address] [id number] [address] [place] [address] [place] [address] Sep, [facility] [address] [id number] [address] [place] [address], [place] [address] Aug, [facility] [address] [id number] [address] [place] [address], [place] [address] Aug, [facility] [address] [id number] [address] [place] [address], [place] [address] Aug, [facility] [address] [id number] [address] [place] [address], [place] [address] Aug, [facility] [address] [id number] [address] [place] [address], [place] [address] Jul, [facility] [address] [id number] [address] [place] [address], [place] [address] Jul, [facility] [address] [id number] [address] [place] [address], [place] [address] Jul, [facility] [address] [id number] [address] [place] [address], [place] [address] Jul, [facility] [address] [id number] [address] [place] [address], [place] [address] Jul, [facility] [address] [id number] [address] [place] [address], [place] [address] Jul, [facility] [address] [id number] [address] [place] [address], [place] [address] Jul, [facility] [address] [id number] [address] [place] [address], [place] [address] Jul, [facility] [address] [id number] [address] [place] [address], [place] [address] Jul, [facility] [address] [id number] [address] [place] [address], [place] [address] Jun, [facility] [address] [id number] [address] [place] [address], [place] [address] 15 Jun, 2014 [facility] [address] [id number] [facility] [place] [address] 15 Jun, 2013 [facility] [address] [id number] [facility] [place] [address] 25 Sep, 2013 [facility] [address] [id number] [address] [place] [address], [place] [address] 25 Sep, 2013 [facility] [address] [id number] [address] [place] [address], [place] [address] 24 Sep, 2013 [facility] [address] [id number] [address] [place] [address], [place] [address] 24 Sep, 2013 [facility] [address] [id number] [address] [place] [address], [place] [address] 24 May, 2013 [facility] [address] [id number] [address] [place] [address], [place] [id number] 24 May, 2013 [facility] [address] [id number] [address] [place] [address], [place] [id number] 19 May, 2013 [facility] [address] [id number] [address] [place] [address], [place] [id number] 19 May, 2013 [facility] [address] [id number] [address] [place] [address], [place] [id number] 11 May, 2013 [facility] [address] [id number] [address] [place] [address], [place] [id number] 11 May, 2013 [facility] [address] [id number] [address] [place] [address], [place] [id number] 11 May, 2013 [facility] [address] [id number] [address] [place] [address], [place] [id number] 11 Sep, 2013 [facility] [address] [id number] [address] [place] [address], [place] [id number] 10 Sep, 2013 [facility] [address] [id number] [address] [place] [address], [place] [id number] 09 Sep, 2013 [facility] [address] [id number] [address] [place] [address], [place] [id number] May, [facility] [address] [facility] [id number] [address] [place] [id number] May, [facility] [address] [facility] [id number] [address] [place] [id number] Apr, [facility] [address] [facility] [id number] [address] [place] [id number] Apr, [facility] [address] [facility] [id number] [address] [place] [id number] Aug, [facility] [address] [facility] [id number] [address] [place] [id number] Jul, IMMUNIZATIONS No Known Immunizations SOCIAL HISTORY Never Assessed REASON FOR VISIT Controlled Medication Refill/Antibiotic Request PLAN OF CARE VITAL SIGNS MEDICATIONS Medication Instructions Dosage Frequency Start Date End Date Duration S tatus OxyContin 15 MG Orally every 12 hrs 1 tablet 12h Jul, 28 days Active Doxycycline Hyclate 100 mg Orally every 12 hrs 1 capsule 12h Feb, Mar, 10 days Active RESULTS No Results PROCEDURES No [...]
--- OUTSIDE RECORDS SUMMARY | 2020-02-27 15:55 | XMS REPORT ---
Author Author Beba GUO [facility] Address [address] [place] [address] Care Team Providers Care Hospitality Associate Name Role Phone TOBI GUO Unavailable PROBLEMS Type Condition ICD9-CM Code [id number] Code Onset Dates Condition S tatus SNOMED Code Problem Colon wall thickening K63.9 Active 799317797 Problem Osteoporosis M81.0 Active 8655130 6 Problem Gastroesophageal reflux disease, esophagitis pre sence not specified K21.9 Active 925809777 Problem Generalized anxiety disorder F41.1 A ctive 01992223 Problem Severe episode of recurrent major depressive disorder, without psychotic features F33.2 Active 68834627 Problem Moderate persistent asthma with acute exacerbation J45.41 Active 620405614716136 Problem Mild persistent asthma without complication J45.30 Active 571507256 Problem Asthma exacerbation J45.901 Active 344358006 Problem Chronic pain syndrome G89.4 Active 278570442 Problem Chronic constipation K59.00 Active 147399613 Problem Hyperlipidemia, unspecified hyperlipidemia E78.5 Active 20136530 Problem Atrophy of left kidney N26.1 Active 321236021 Problem Chronic kidney disease, stage 1 N18.1 Active 618613215 Problem Pernicious anemia D51.0 Active 84 337058 Problem Rheumatoid arthritis involvi ng multiple sites with positive rheumatoid factor M05.89 Active 814251440 Problem Essential hypertension I10 Active 77433730 Problem Chronic prescription opiate use Z79.899 Active 909613355 Problem Vitamin D deficiency E55.9 Active 62253953 Problem Bladder wall thickening N32.89 Active 569888879 ALLERGIES Unknown Allergies SOCIAL HISTORY No smoking Hx information available PLAN OF CARE VITAL SIGNS MEDICATIONS Medication Instructions Dosage Frequency Start Date End Date Duration S tatus OxyContin 15 MG Orally every 12 hrs 1 tablet 12h Jul, 28 days Active RESULTS No Results PROCEDURES No Known procedures IMMUNIZATIONS No Known Immunizations
--- OUTSIDE RECORDS SUMMARY | 2020-02-27 15:55 | XMS REPORT ---
Author Author Beba CORBIN [facility] Address [address] [place] [address] Care Team Providers Care Tank Builder Helper Name Role Phone EMERALDSTUART JEFFERSHANY Unavailable PROBLEMS Type Condition ICD9-CM Code [id number] Code Onset Dates Condition S tatus SNOMED Code Problem Colon wall thickening K63.9 Active 791140698 Problem Mild persistent asthma without complication J45.30 Active 312469069 Problem Osteoporosis M81.0 Active 5908480 6 Problem Generalized anxiety disorder F41.1 A ctive 32677392 Problem Severe episode of recurrent major depressive disorder, without psychotic features F33.2 Active 90489318 Problem Moderate persistent asthma with acute exacerbation J45.41 Active [id number] Problem Gastroesophageal reflux disease, esophagitis pre sence not specified K21.9 Active 023530234 Problem Asthma exacerbation J45.901 Active 476172013 Problem Chronic pain syndrome G89.4 Active 633422848 Problem Chronic constipation K59.00 Active 582567494 Problem Essential hypertension I10 Active 14533359 Problem Chronic kidney disease, stage 1 N18.1 Active 564055015 Problem Hyperlipidemia, unspecified hyperlipidemia E78.5 Active 51743558 Problem Pernicious anemia D51.0 Active 84 215601 Problem Atrophy of left kidney N26.1 Active 034667556 Problem Vitamin D deficiency E55.9 Active 16047671 Problem Chronic prescription opiate use Z79.899 Active 528467906 Problem Rheumatoid arthritis involvi ng multiple sites with positive rheumatoid factor M05.89 Active 513724626 Problem Bladder wall thickening N32.89 Active 773998036 ALLERGIES Substance Reaction Event Type Date Status Penicillin V Potassium Cannot tolerate Oral PCN. St ates she can tolerate injections Drug Allergy Feb, Active Orencia Unknown Drug Allergy Feb, Active Cipro Unknown Drug Allergy Feb, Active Codeine Unknown Drug Allergy Feb, Active Ivp Dye anaphylaxis Non Drug Allergy Feb, Active ENCOUNTERS Encounter Location Date Diagnosis [facility] [address] [facility] [id number] [address] [place] [address] Dec, [facility] [address] [address] Nov, [facility] [address] [place] [id number] [address] [place] [address] Nov, Chronic pain syndrome G89.4 [facility] [address] [place] [id number] [place] [address] Oct, Chronic pain syndrome G89.4 [facility] [address] [address] Oct, Chronic kidney disease, stag e 1 N18.1 [facility] [address] [address] Oct, Chronic prescription opiate use Z79.899 ; Cough R05 ; Asthma exacerbation J45.901 ; Elevated liver enzymes R74.8 ; Rheumatoid arthritis involving multiple sites with positive rheumatoid factor M05.89 and Chronic pain syndrome G89.4 [facility] [address] [place] [id number] [address] [place] [address] Sep, Chronic pain syndrome G89.4 [facility] [address] [place] [id number] [address] [place] [address] Sep, [facility] [address] [place] [id number] [address] [place] [phone] Aug, Acute bronchitis, unspecifie d organism J20.9 [facility] [address] [facility] [id number] [address] [place] [address] Aug, Chronic pain syndrome G89.4 [facility] [address] [place] [id number] [address] [place] [address] Jul, Chronic pain syndrome G89.4 [facility] [address] [place] [id number] [address] [place] [address] Jun, Chronic pain syndrome G89.4 [facility] [address] [facility] [id number] [address] [place] [address] 29 May, 2017 Rheumatoid arthritis involvi ng multiple sites with positive rheumatoid factor M05.89 [facility] [address] [facility] [id number] [address] [place] [phone] 26 May, 2017 Gastroesophageal reflux dise ase, esophagitis presence not specified K21.9 and Chronic pain syndrome G89.4 [facility] [address] [facility] [id number] [address] [place] [address] May, [place] [address] [place] [id number] [place] [phone] 12 May, 2017 Esophageal candidiasis B37.8 1 and Chronic kidney disease, stage 1 N18.1 [place] [address] [place] [id number] [place] [address] 11 May, 2017 Chronic kidney disease, stag e 1 N18.1 [place] [address] [place] [id number] [address] [place] [address] 05 May, 2017 Cough R05 ; Fever, unspecifi ed fever cause R50.9 ; Rheumatoid arthritis involving multiple sites with positive rheumatoid factor M05.89 and Chronic prescription opiate use Z79.899 [place] [address] [place] [id number] [address] [place] [address] Apr, [place] [address] [place] [id number] [address] [place] [address] Apr, Cough R05 [place] [address] [facility] [id number] [address] [place] [address] Apr, Asthma exacerbation J45.901 [place] [address] [place] [id number] [address] [place] [address] Apr, [place] [address] [place] [id number] [address] [place] [address] 08 Apr, 2017 Generalized anxiety disorder F41.1 and Severe episode of recurrent major depressive disorder, without psychotic features F33.2 [place] [address] [id number] [address] [place] [address] Mar, [place] [address] [facility] [id number] [address] [place] [address] Feb, Chronic pain syndrome G89.4 [place] [address] [facility] [id number] [address] [place] [address] Feb, Acute non-recurrent maxillar y sinusitis J01.00 [place] [address] [id number] [address] [place] [address] Feb, Acute non-recurrent frontal sinusitis J01.10 [place] [address] [facility] [id number] [address] [place] [address] Feb, Chronic pain syndrome G89.4 [place] [address] [facility] [id number] [address] [place] [address] January, Acute cystitis with hematuri a N30.01 [place] [address] [facility] [id number] [address] [place] [address] January, Acute cystitis with hematuri a N30.01 ; Dysuria R30.0 and Moderate persistent asthma with acute exacerbation J45.41 [place] [address] [facility] [id number] [address] [place] [address] January, [place] [address] [facility] [id number] [address] [place] [address] January, Chronic pain syndrome G89.4 [place] [address] [facility] [id number] [address] [place] [address] January, Asthma exacerbation J45.901 [place] [address] [facility] [id number] [address] [place] [address] January, Asthma exacerbation J45.901 [place] [address] [facility] [id number] [address] [place] [address] Dec, Cough R05 ; Numbness in both hands R20.0 ; Ground glass opacity present on imaging of lung R91.8 ; Hypoxia R09.02 and Asthma exacerbation J45.901 [place] [address] [place] [address] Dec, Chronic pain syndrome G89.4 [place] [address] [place] [id number] [address] [place] [address] Nov, Chronic prescription opiate use Z79.899 ; Rheumatoid arthritis involving multiple sites with positive rheumatoid factor M05.89 ; Moderate persistent asthma with acute exacerbation J45.41 ; Pneumonia of right lower lobe due to infectious organism J18.1 ; Chronic pain syndrome G89.4 ; Gastroesophageal reflux disease, esophagitis presence not specified K21.9 and Hyperlipidemia, unspecified hyperlipidemia E78.5 [place] [address] [place] [id number] [place] [address] Nov, Rheumatoid arthritis involvi ng multiple sites with positive rheumatoid factor M05.89 [place] [address] [place] [id number] [address] [place] [address] Oct, [place] [address] [place] [id number] [address] [place] [address] Oct, Essential hypertension I10 [place] [id number] [address] [place] [address] Sep, Hypoxia R09.02 and Ground gl ass opacity present on imaging of lung R91.8 [place] [id number] [address] [place] [address] Sep, Moderate persistent asthma w ith acute exacerbation J45.41 [facility] [address] [id number] Sep, [place] [address] [place] [id number] [address] [place] [address] Sep, Chronic constipation K59.00 and Moderate persistent asthma with acute exacerbation J45.41 [place] [address] [place] [id number] [address] [place] [address] Sep, Moderate persistent asthma w ith acute exacerbation J45.41 [facility] [address] [facility] [id number] [address] [place] [address] Aug, [facility] [address] [facility] [id number] [address] [place] [address] Aug, [facility] [address] [facility] [id number] [address] [place] [address] Aug, [facility] [address] [facility] [id number] [address] [place] [address] Aug, Rheumatoid arthritis involvi multiple sites with positive rheumatoid factor M05.89 ; Essential hypertension I10 ; Hyperlipidemia, unspecified hyperlipidemia E78.5 ; Chronic constipation K59.00 and Moderate persistent asthma with acute exacerbation J45.41 [place] [address] [facility] [id number] [address] [place] [address] Aug, Bronchitis J40 [place] [address] [facility] [id number] [address] [place] [address] Aug, Rheumatoid arthritis involvi multiple sites with positive rheumatoid factor M05.89 [place] [address] [facility] [id number] [address] [place] [address] Aug, Pharyngitis, unspecified pablito ology J02.9 and Acute nasopharyngitis J00 [place] [address] [facility] [id number] [address] [place] [address] Aug, [place] [address] [facility] [id number] [address] [place] [address] Jul, [place] [address] [facility] [id number] [address] [place] [address] Jul, Rheumatoid arthritis involvi ng multiple sites with positive rheumatoid factor M05.89 ; Essential hypertension I10 ; Hyperlipidemia, unspecified hyperlipidemia E78.5 ; Rash R21 ; Mild persistent asthma with acute exacerbation J45.31 ; Hematuria R31.9 ; Osteoporosis M81.0 and Gastroesophageal reflux disease, esophagitis presence not specified K21.9 [facility] [address] [facility] [id number] [address] [place] [address] 18 Jun, 2016 [facility] [address] [facility] [id number] [address] [place] [address] 10 Jun, 2016 Dysuria R30.0 [facility] [address] [facility] [id number] [address] [place] [address] 05 Jun, 2016 Acute non-recurrent maxillar y sinusitis J01.00 and Dysuria R30.0 [facility] [address] [facility] [id number] [address] [place] [address] 16 May, 2016 [facility] [address] [facility] [id number] [address] [place] [address] May, [facility] [address] [place] [id number] [address] [place] [address] Apr, Chronic prescription opiate use Z79.899 and Rheumatoid arthritis involving multiple sites with positive rheumatoid factor M05.89 [facility] [address] [place] [id number] [address] [place] [address] Mar, [facility] [address] [place] [id number] [address] [place] [address] Feb, Dizziness of unknown cause R 42 and Other chronic pain G89.29 [place] [address] [place] [id number] [address] [place] [phone] Feb, [facility] [address] [place] [id number] [address] [place] [address] Feb, Shortness of breath R06.02 [facility] [address] [place] [id number] [address] [place] [address] January, [facility] [address] [place] [id number] [address] [place] [address] January, Rheumatoid arthritis involvi ng multiple sites with positive rheumatoid factor M05.89 ; Chronic prescription opiate use Z79.899 ; Hyperlipidemia, unspecified hyperlipidemia E78.5 ; Cough R05 ; Exposure to pneumonia Z20.828 ; Diarrhea, unspecified type R19.7 ; Weight loss R63.4 ; Lumbago with sciatica, right side M54.41 and Lumbago with sciatica, left side M54.42 [facility] [address] [id number] [address] [place] [address] Dec, [facility] [address] [facility] [id number] [address] [place] [address] Dec, Bronchitis J40 [facility] [address] [id number] [address] [place] [address] Nov, [facility] [address] [id number] [address] [place] [address] Nov, [facility] [address] [facility] [id number] [address] [place] [phone] Nov, [facility] [address] [facility] [id number] [address] [place] [address] Nov, Bloody diarrhea R19.7 ; Ekron n wall thickening K63.9 ; Shortness of breath R06.02 and Bladder wall thickening N32.89 [facility] [id number] [place] [id number] Oct, Dental examination Z01.20 [facility] [address] [id number] [address] [place] [address] 15 Oct, 2015 [facility] [address] [id number] [address] [place] [address] Oct, Toothache K08.8 [facility] [address] [id number] [address] [place] [id number] Oct, Dental examination Z01.20 [facility] [address] [id number] [address] [place] [phone] 02 Oct, 2015 [facility] [address] [id number] [address] [place] [address] Sep, [facility] [address] [facility] [id number] [address] [place] [address] 13 Sep, 2015 Burning with urination R30.0 [facility] [address] [id number] [address] [place] [address] Sep, Hematuria R31.9 ; Rheumatoid arthritis involving multiple sites with positive rheumatoid factor M05.89 and Rheumatoid arthritis flare M06.9 [facility] [address] [facility] [id number] [address] [place] [address] Aug, Hyperlipidemia, unspecified hyperlipidemia E78.5 and Hematuria R31.9 [facility] [address] [facility] [id number] [address] [place] [address] Aug, Hematuria R31.9 ; Chronic ki dney disease, stage 1 N18.1 and Hyperlipidemia, unspecified hyperlipidemia E78.5 [place] [address] [facility] [id number] [address] [place] [address] Aug, Rheumatoid arthritis involvi ng multiple sites with positive rheumatoid factor M05.89 ; Asthma exacerbation J45.901 ; Hematuria R31.9 ; Hyperlipidemia, unspecified hyperlipidemia E78.5 and Chronic kidney disease, stage 1 N18.1 [place] [address] [facility] [id number] [address] [place] [address] Aug, [facility] [address] [facility] [id number] [address] [place] [phone] Jul, [place] [address] [facility] [id number] [address] [place] [address] Jul, Lumbosacral radiculopathy M5 4.17 [place] [id number] [facility] [id number] [address] [place] [address] Jul, [place] [address] [facility] [id number] [address] [place] [address] Jun, Rheumatoid arthritis involvi ng multiple sites with positive rheumatoid factor M05.89 ; Hyperlipidemia, unspecified hyperlipidemia E78.5 ; Lumbosacral radiculopathy M54.17 ; Carpal tunnel syndrome, right upper limb G56.01 and Carpal tunnel syndrome, left upper limb G56.02 [facility] [address] [id number] [address] [place] [address] Jun, [facility] [address] [id number] [address] [place] [address] May, Lumbar radicular pain 724.4 and Dysuria 788.1 [facility] [address] [id number] [address] [place] [address] May, Rheumatoid arthritis 714.0 ; Lumbar radicular pain 724.4 ; Burn 949.0 and Thoracic back pain 724.1 [facility] [address] [facility] [id number] [address] [place] [address] May, [facility] [address] [facility] [id number] [address] [place] [address] May, [facility] [address] [place] [id number] [address] [place] [address] Apr, [facility] [address] [id number] [address] [place] [address] Mar, Hyperlipidemia 272.4 [facility] [address] [facility] [id number] [address] [place] [address] Mar, [facility] [address] [place] [id number] [address] [place] [address] Mar, [facility] [address] [facility] [id number] [address] [place] [address] Mar, Diarrhea 787.91 ; Chronic ki dney disease, unspecified 585.9 ; Hyperlipidemia 272.4 and Asthma 493.90 [facility] [address] [facility] [id number] [address] [place] [address] Mar, [facility] [address] [facility] [id number] [address] [place] [address] Mar, Gastroenteritis 558.9 [facility] [address] [place] [id number] [address] [place] [id number] Feb, [facility] [address] [id number] [address] [place] [address], [place] [address] January, [facility] [address] [id number] [address] [place] [address], [place] [address] January, [facility] [address] [id number] [address] [place] [address], [place] [address] Dec, [facility] [address] [id number] [address] [place] [address], [place] [address] Dec, [facility] [address] [id number] [address] [place] [address], [place] [address] Nov, [facility] [address] [id number] [address] [place] [address], [place] [address] Nov, [facility] [address] [id number] [address] [place] [address], [place] [address] Nov, [facility] [address] [id number] [address] [place] [address], [place] [address] Nov, [facility] [address] [id number] [address] [place] [address], [place] [address] Nov, [facility] [address] [id number] [address] [place] [address], [place] [address] Nov, [facility] [address] [id number] [address] [place] [address], [place] [address] 16 Oct, 2014 [facility] [address] [id number] [address] [place] [address], [place] [address] Oct, [facility] [address] [id number] [address] [place] [address], [place] [address] Sep, [facility] [address] [id number] [address] [place] [address], [place] [address] Sep, [facility] [address] [id number] [address] [place] [address], [place] [address] Sep, [facility] [address] [id number] [address] [place] [address], [place] [address] Sep, [facility] [address] [id number] [address] [place] [address], [place] [address] Sep, [facility] [address] [id number] [address] [place] [address], [place] [address] Sep, [facility] [address] [id number] [address] [place] [address], [place] [address] Aug, [facility] [address] [id number] [address] [place] [address], [place] [address] Aug, [facility] [address] [id number] [address] [place] [address], [place] [address] Aug, [facility] [address] [id number] [address] [place] [address], [place] [address] Aug, [facility] [address] [id number] [address] [place] [address], [place] [address] Jul, [facility] [address] [id number] [address] [place] [address], [place] [address] Jul, [facility] [address] [id number] [address] [place] [address], [place] [address] Jul, [facility] [address] [id number] [address] [place] [address], [place] [address] Jul, [facility] [address] [id number] [address] [place] [address], [place] [address] Jul, [facility] [address] [id number] [address] [place] [address], [place] [address] Jul, [facility] [address] [id number] [address] [place] [address], [place] [address] Jul, [facility] [address] [id number] [address] [place] [address], [place] [address] Jul, [facility] [address] [id number] [address] [place] [address], [place] [address] Jul, [facility] [address] [id number] [address] [place] [address], [place] [address] 31 Jun, 2014 [facility] [address] [id number] [address] [place] [address], [place] [address] 15 Jun, 2014 [facility] [address] [id number] [address] [place] [address], [place] [address] 15 Jun, 2014 [facility] [address] [id number] [address] [place] [address], [place] [address] 25 May, 2013 [facility] [address] [id number] [address] [place] [address], [place] [id number] 25 May, 2013 [facility] [address] [id number] [address] [place] [address], [place] [address] 24 May, 2013 [facility] [address] [id number] [address] [place] [address], [place] [address] 24 May, 2013 [facility] [address] [id number] [address] [place] [address], [place] [address] 24 May, 2013 [facility] [address] [id number] [address] [place] [address], [place] [address] 24 May, 2013 [facility] [address] [id number] [address] [place] [address], [place] [address] 19 May, 2013 [facility] [address] [id number] [address] [place] [id number] 19 May, 2013 [facility] [address] [id number] [address] [place] [id number] 11 May, 2013 [facility] [address] [id number] [address] [place] [address], [place] [address] 11 May, 2013 [facility] [address] [id number] [address] [place] [address], [place] [address] 11 May, 2013 [facility] [facility] [address] [id number] [address] [place] [address], [place] [id number] 11 May, 2013 [facility] [address] [id number] [address] [place] [phone] May, [facility] [address] [id number] [address] [place] [phone] May, [facility] [address] [id number] [address] [place] [phone] May, [facility] [address] [id number] [address] [place] [id number] May, [facility] [address] [id number] [address] [place] [phone] Apr, [facility] [address] [id number] [address] [place] [phone] Apr, [facility] [address] [facility] [id number] [address] [place] [id number] Aug, [facility] [address] [facility] [id number] [address] [place] [id number] Jul, IMMUNIZATIONS No Known Immunizations SOCIAL HISTORY Never Assessed REASON FOR VISIT fever, pt states she is till having continued sympoms, was seen on wednesday for sara [employer] Activity Details Follow Up prn Reason: VITAL SIGNS Height 66 in 2017-03-17 Weight 156.1 lbs 2017-03-17 Temperature 98.2 degrees Fahrenheit 2017-03-17 Heart Rate 88 bpm 2017-03-17 Respiratory Rate 20 2017-03-17 BMI 25.19 kg/m2 2017-03-17 Blood pressure systolic 130 mmHg 2017-03-17 Blood pressure diastolic 98 mmHg 2017-03-17 MEDICATIONS Medication Instructions Dosage Frequency Start Date End Date Duration S tatus Ibuprofen 200 MG Orally every 4-6 hours as needed 2 tablets Active Symbicort 160-4.5 MCG/ACT Inhalation Twice a day 2 puffs 12h Active Bystolic 10 mg Orally 2 times a day 1 tablet 12h 90 days Active Tylenol Arthritis Pain by oral route 2 times a day 2tablets 12h Active Gabapentin 600 MG Orally Three times a day 1 tablet 8h Nov, 30 day(s) Active Docusate Sodium 100 MG Orally twice a day 1 capsule as needed 12h Active Gabapentin 300 MG Orally Three times a day 1 capsule 8h Nov, 30 day(s) Active PredniSONE 20 mg Orally Once a day 2 tablets 24h Dec, 07 days Active Cyclobenzaprine HCl 10 mg Orally Three times a day as needed 1 tablet 90 days Active Ipratropium-Albuterol 0.5-2.5 (3) MG/3ML Inhalation every 6 hrs 3 ml as needed 6h Active Leflunomide 10 MG Orally Once a day 1 tablet 24h Active ProAir HFA 108 (90 Base) MCG/ACT Inhalation every 4 hrs 2 puffs as needed 4h Mar, Active OxyContin 15 MG Orally every 12 hrs 1 tablet 12h Jul, 28 days Active Simvastatin 40 mg Orally Once a day 1 tablet in the evening 24h Mar, Active Senokot S 8.6-50 MG Orally 2 times a day 2 tablets 12h Active Omeprazole 40 mg Orally Once a day 1 capsule 24h Jul, 90 days Active Dulcolax 10 MG Rectal Once a day 1 suppository as needed 24h Active Azithromycin 250 MG Orally Once a day 2 tablets on the rst day, then 1 tablet daily for 4 days 24h Feb, Mar, 5 day(s) Active RESULTS No Results PROCEDURES Procedure Date Ordered Result Body Site [facility] VISIT ESTABLISHED PATIENT March 17, 2017 INSTRUCTIONS MEDICATIONS ADMINISTERED No Known Medications [...]
--- OUTSIDE RECORDS SUMMARY | 2020-02-27 15:56 | XMS REPORT | Continuity of Care Document ---
Demographics Preferred Language Unknown Marital Status Unknown Synagogue Affiliation Unknown Race Unknown Ethnic Group Unknown Author Organization Unknown Address Unknown Phone Unavailable Allergies Active Description Code Type Severity Reaction Onset Reported/Identified Relationship to Patient Clinical Status Yes iodine [id number] Drug Allergy Severe N/A 01/29/2011 Yes Cipro Drug Allergy N/A N/A 05/11/2014 Yes codeine Drug Allergy N/A N/A 05/11/2014 Yes Orencia Drug Allergy N/A N/A 05/11/2014 Yes Penicillins Drug Allergy N/A N/A 05/11/2014 Yes abatacept [id number] Drug Allergy Unknown N/A 06/27/2014 Yes ciprofloxacin [id number] Werner g Allergy Unknown N/A 06/27/2014 Yes codeine [id number] Drug Allergy Unknown N/A 06/27/2014 Yes hydrocodone [id number] Drug Aller gy Unknown N/A 06/27/2014 Yes IVP DYE IVP DYE Unknown N/A 06/27/2014 Yes Penicillins [id number] Drug Aller gy Unknown N/A 06/27/2014 Medications There is no data. Problems Date Dx Coded Attending Type Code Diagnosis Diagnosed By 08/09/2008 EDWARD CORBIN MD 296 .30 MAJOR DEPRESSIVE AFFECTIVE DISORDER RECURRENT EPISODE UNSPECIFIED DEGREE 08/09/2008 EDWARD CORBIN MD 307 .47 SI DYSSOMNIA NOS 08/09/2008 EDWARD CORBIN MD 296 .30 MAJOR DEPRESSIVE AFFECTIVE DISORDER RECURRENT EPISODE UNSPECIFIED DEGREE 08/09/2008 EDWARD CORBIN MD 307 .47 SI DYSSOMNIA NOS 08/09/2008 EDWARD CORBIN MD 296 .30 MAJOR DEPRESSIVE AFFECTIVE DISORDER RECURRENT EPISODE UNSPECIFIED DEGREE 08/09/2008 EDWARD CORBIN MD 307 .47 SI DYSSOMNIA NOS 08/09/2008 EDWARD CORBIN MD 296 .30 MAJOR DEPRESSIVE AFFECTIVE DISORDER RECURRENT EPISODE UNSPECIFIED DEGREE 08/09/2008 EDWARD CORBIN MD 307 .47 SI DYSSOMNIA NOS 08/09/2008 EDWARD CORBIN MD 296 .30 MAJOR DEPRESSIVE AFFECTIVE DISORDER RECURRENT EPISODE UNSPECIFIED DEGREE 08/09/2008 EMERALD JACOBO, EDWARD N 307 .47 SI DYSSOMNIA NOS 08/09/2008 JAMES GARCIA APRN R 296.30 MAJOR DEPRESSIVE AFFECTIVE DISORDER RECU RRENT EPISODE UNSPECIFIED DEGREE 08/09/2008 EDI GARCIA APRNIA R 307.47 SI DYSSOMNIA NOS 08/09/2008 EDI GARCIA APRNIA R 296.30 MAJOR DEPRESSIVE AFFECTIVE DISORDER RECU RRENT EPISODE UNSPECIFIED DEGREE 08/09/2008 JAMES GARCIA APRN R 307.47 SI DYSSOMNIA NOS 08/09/2008 EDWARD CORBIN MD N 296 .30 MAJOR DEPRESSIVE AFFECTIVE DISORDER RECURRENT EPISODE UNSPECIFIED DEGREE 08/09/2008 EDWARD CORBIN MD N 307 .47 SI DYSSOMNIA NOS 08/09/2008 EDI GARCIA APRNIA R 296.30 MAJOR DEPRESSIVE AFFECTIVE DISORDER RECU RRENT EPISODE UNSPECIFIED DEGREE 08/09/2008 JAMES GARCIA APRN R 307.47 SI DYSSOMNIA NOS 01/29/2011 Ot 846.0 SPRA IN LUMBOSACRAL 01/29/2011 Ot 847.0 SPRA IN OF NECK 01/29/2011 Ot 959.09 INJ URY OF FACE AND NECK 01/29/2011 Ot E000.8 OTH ER EXTERNAL CAUSE STATUS 01/29/2011 Ot 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 04/11/2011 Ot 276.51 DEH YDRATION 04/11/2011 Ot 787.03 VOM ITING ALONE 04/11/2011 Ot 992.9 HEAT EFFECT NOS 04/11/2011 Ot E000.8 OTH ER EXTERNAL CAUSE STATUS 04/11/2011 Ot E029.9 OTH ER ACTIVITY 04/11/2011 Ot E900.0 EXC ESSIVE HEAT: WEATHER 02/15/2014 ANGELO MIRANDA TRANSCRIPTION SPECIALIST Ot 401 .9 HYPERTENSION NOS 02/15/2014 ANGELO MIRANDA TRANSCRIPTION SPECIALIST Ot 535.50 UNSP GASTRITIS GASTRODUODENITIS W/O ME 02/15/2014 ANGELO MIRANDA TRANSCRIPTION SPECIALIST Ot 562.10 DIVERTICULOSIS COLON (W/O MENT OF HEMORR 02/15/2014 ANGELO MIRANDA TRANSCRIPTION SPECIALIST Ot 564.00 UNSPEC CONSTIPATION 02/15/2014 ANGELO MIRANDA TRANSCRIPTION SPECIALIST Ot 573 .8 LIVER DISORDERS NEC 02/15/2014 ANGELO MIRANDA TRANSCRIPTION SPECIALIST Ot 587 RENAL SCLEROSIS NOS 02/15/2014 ANGELO MIRANDA TRANSCRIPTION SPECIALIST Ot 714 .0 RHEUMATOID ARTHRITIS 02/15/2014 ANGELO MIRANDA TRANSCRIPTION SPECIALIST Ot 724 .5 BACKACHE NOS 02/15/2014 ANGELO MIRANDA TRANSCRIPTION SPECIALIST Ot 787.01 NAUSEA WITH VOMITING 02/15/2014 ANGELO MIRANDA TRANSCRIPTION SPECIALIST Ot 787.91 DIARRHEA 02/15/2014 ANGELO MIRANDA TRANSCRIPTION SPECIALIST Ot 789.00 ABDOMINAL PAIN, UNSPECIFIED SITE 02/15/2014 ANGELO MIRANDA TRANSCRIPTION SPECIALIST Ot 789.01 ABDOMINAL PAIN, RIGHT UPPER QUADRANT 02/15/2014 ANGELO MIRANDA TRANSCRIPTION SPECIALIST Ot 789.06 ABDOMINAL PAIN, EPIGASTRIC 05/11/2014 EDWARD CORBIN MD N 401 .1 BENIGN ESSENTIAL HYPERTENSION 05/11/2014 EDWARD CORBIN MD N 714 .0 RHEUMATOID ARTHRITIS 05/11/2014 EDWARD CORBIN MD N 786 .50 CHEST PAIN 05/11/2014 EDWARD CORBIN MD N 401 .1 BENIGN ESSENTIAL HYPERTENSION 05/11/2014 EDWARD CORBIN MD N 714 .0 RHEUMATOID ARTHRITIS 05/11/2014 EDWARD CORBIN MD N 786 .50 CHEST PAIN 05/11/2014 EDWARD CORBIN MD N 401 .1 BENIGN ESSENTIAL HYPERTENSION 05/11/2014 EDWARD CORBIN MD N 714 .0 RHEUMATOID ARTHRITIS 05/11/2014 EDWARD CORBIN MD N 786 .50 CHEST PAIN 05/11/2014 EDWARD CORBIN MD N 401 .1 BENIGN ESSENTIAL HYPERTENSION 05/11/2014 EDWARD CORBIN MD N 714 .0 RHEUMATOID ARTHRITIS 05/11/2014 EDWARD CORBIN MD N 786 .50 CHEST PAIN 05/11/2014 EDWARD CORBIN MD N 401 .1 BENIGN ESSENTIAL HYPERTENSION 05/11/2014 EDWARD CORBIN MD N 714 .0 RHEUMATOID ARTHRITIS 05/11/2014 EDWARD CORBIN MD N 786 .50 CHEST PAIN 05/11/2014 JAMES GARCIA APRN R 401.1 BENIGN ESSENTIAL HYPERTENSION 05/11/2014 JAMES GARCIA APRN R 714.0 RHEUMATOID ARTHRITIS 05/11/2014 GARCIA TRANSCRIPTION SPECIALIST, JAMES R 786.50 CHEST PAIN 05/11/2014 DENNISE GARCIA APRNRICIA R 401.1 BENIGN ESSENTIAL HYPERTENSION 05/11/2014 DENNISE GARCIA APRNRICIA R 714.0 RHEUMATOID ARTHRITIS 05/11/2014 DENNISE GARCIA APRNRICIA R 786.50 CHEST PAIN 05/11/2014 EDWARD CORBIN MD N 401 .1 BENIGN ESSENTIAL HYPERTENSION 05/11/2014 EDWARD CORBIN MD N 714 .0 RHEUMATOID ARTHRITIS 05/11/2014 EDWARD CORBIN MD N 786 .50 CHEST PAIN 05/11/2014 DENNISE GARCIA APRNRICIA R 401.1 BENIGN ESSENTIAL HYPERTENSION 05/11/2014 DENNISE GARCIA APRNRICIA R 714.0 RHEUMATOID ARTHRITIS 05/11/2014 DENNISE GARCIA APRNRICIA R 786.50 CHEST PAIN 06/13/2014 EMERALD JACOBO, EDWARD N 564 .00 CONSTIPATION 06/13/2014 EMERALD JACOBO, EDWARD N 564 .00 CONSTIPATION 06/13/2014 EDWARD CORBIN MD N 564 .00 CONSTIPATION 06/13/2014 DENNISE GARCIA APRNRICIA R 564.00 CONSTIPATION 06/13/2014 DENNISE GARCIA APRNRICIA R 564.00 CONSTIPATION 06/13/2014 EDWARD CORBIN MD N 564 .00 CONSTIPATION 06/13/2014 DENNISE GARCIA APRNRICIA R 564.00 CONSTIPATION 07/04/2014 EMERALD JACOBO, EDWARD N 266 .2 VITAMIN B12 DEFICIENCY 07/04/2014 EMERALD JACOBO, EDWARD N 266 .2 VITAMIN B12 DEFICIENCY 07/04/2014 EDI GARCIA APRNIA R 266.2 VITAMIN B12 DEFICIENCY 07/04/2014 EDI GARCIA APRNIA R 266.2 VITAMIN B12 DEFICIENCY 07/04/2014 EMERALD JACOBO EDWARD N 266 .2 VITAMIN B12 DEFICIENCY 07/04/2014 EDI GARCIA APRNIA R 266.2 VITAMIN B12 DEFICIENCY 08/13/2014 EDWARD CORBIN MD N Ot 714 .0 09/05/2014 DENNISE GARCIA APRNRICIA R 786.2 COUGH 09/05/2014 DENNISE GARCIA APRNRICIA R 786.2 COUGH 09/05/2014 EDWARD CORBIN MD N 786 .2 COUGH 09/05/2014 EID GARCIA APRNIA R 786.2 COUGH 10/19/2014 RADHA GAUTHIERJAMES Panda R 461.9 SINUSITIS ACUTE 10/19/2014 RADHA MEREDITHDENNISEJAMES R 786.2 COUGH 04/11/2015 EDWARD CORBIN MD Ot 272 .4 04/11/2015 EDWARD CORBIN MD Ot 585 .9 04/11/2015 EDWARD CORBIN MD Ot 787.91 09/12/2015 EDWARD CORBIN MD Ot M54.17 10/22/2015 EDWARD CORBIN MD Ot R31 .9 10/23/2015 EDWARD CORBIN MD Ot R31 .9 01/06/2016 PRATIMA PATEL DO Ot R19. 7 DIARRHEA, UNSPECIFIED 01/06/2016 PRATIMA PATEL DO Ot Z01.818 ENCOUNTER FOR OTHER PREPROCEDURAL EXAMIN 02/05/2016 PRATIMA PATEL DO Ot R19. 7 DIARRHEA, UNSPECIFIED 02/05/2016 PRATIMA PATEL DO Ot R19. 7 DIARRHEA, UNSPECIFIED 02/20/2016 PRATIMA PATEL DO Ot R19. 7 DIARRHEA, UNSPECIFIED 02/21/2016 Ot 724.4 LUMB OSACRAL NEURITIS NOS 02/21/2016 Ot 786.2 COUGH 02/21/2016 EDWARD CORBIN MD Ot 714 .0 RHEUMATOID ARTHRITIS 02/21/2016 Ot 787.29 OTH ER DYSPHAGIA 02/21/2016 EDWARD CORBIN MD Ot 272 .4 HYPERLIPIDEMIA NEC/NOS 02/21/2016 EDWARD CORBIN MD Ot 585 .9 CHRONIC KIDNEY DISEASE, UNSPECIFIED 02/21/2016 EDWARD CORBIN MD Ot 787.91 DIARRHEA 02/21/2016 EDWARD CORBIN MD Ot M54.17 RADICULOPATHY, LUMBOSACRAL REGION 02/21/2016 EDWARD CORBIN MD Ot R31 .9 HEMATURIA, UNSPECIFIED 02/21/2016 PRATIMA PATEL DO Ot R19. 7 DIARRHEA, UNSPECIFIED 02/21/2016 PRATIMA PATEL DO Ot R19. 7 DIARRHEA, UNSPECIFIED 02/21/2016 PRATIMA PATEL DO Ot Z01.818 ENCOUNTER FOR OTHER PREPROCEDURAL EXAMIN 02/21/2016 EDWARD CORBIN MD Ot R31 .9 HEMATURIA, UNSPECIFIED 02/21/2016 EDWARD CORBIN MD Ot M54.17 RADICULOPATHY, LUMBOSACRAL REGION 03/06/2016 PRATIMA PATEL DO Ot R19. 7 DIARRHEA, UNSPECIFIED 04/02/2016 PATEL DO PRATIMA D Ot R19. 7 DIARRHEA, UNSPECIFIED 04/02/2016 EDWARD CORBIN MD Ot R31 .9 HEMATURIA, UNSPECIFIED 04/02/2016 EDWARD CORBIN MD Ot M54.17 RADICULOPATHY, LUMBOSACRAL REGION 09/13/2016 Ot 786.2 COUGH 09/13/2016 EDWARD CORBIN MD Ot 714 .0 RHEUMATOID ARTHRITIS 09/13/2016 Ot 787.29 OTH ER DYSPHAGIA 09/13/2016 EDWARD CORBIN MD Ot 272 .4 HYPERLIPIDEMIA NEC/NOS 09/13/2016 EDWARD CORBIN MD Ot 585 .9 CHRONIC KIDNEY DISEASE, UNSPECIFIED 09/13/2016 EDWARD CORBIN MD Ot 787.91 DIARRHEA 09/13/2016 EDWARD CORBIN MD Ot M54.17 RADICULOPATHY, LUMBOSACRAL REGION 09/13/2016 EDWARD CORBIN MD Ot R31 .9 HEMATURIA, UNSPECIFIED 09/13/2016 PATEL PRATIMA GARCIAS D Ot R19. 7 DIARRHEA, UNSPECIFIED 09/13/2016 CLAUDIO PATEL DOTT D Ot R19. 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 7 DIARRHEA, UNSPECIFIED 09/23/2016 PATEL DO, PRATIMA D Ot R19. 7 DIARRHEA, UNSPECIFIED 09/23/2016 PATEL DO, PRATIMA D Ot Z01.818 ENCOUNTER FOR OTHER PREPROCEDURAL EXAMIN 09/24/2016 SARI JACOBO, TOBI Eldridge Ot E87.6 HYPOKALEMIA 09/24/2016 TOBI GUO MD Ot I10 ESSENTIAL (PRIMARY) HYPERTENSION 09/24/2016 TOBI GUO MD Ot K59.0 0 CONSTIPATION, UNSPECIFIED 09/24/2016 TOBI GUO MD Ot M06.9 RHEUMATOID ARTHRITIS, UNSPECIFIED 09/24/2016 TOBI GUO MD Ot R06.0 0 DYSPNEA, UNSPECIFIED 09/24/2016 TOBI GUO MD Ot R09.0 2 HYPOXEMIA 10/09/2016 ALINE ALCANTARA TRANSCRIPTION SPECIALIST Ot J18.9 PNEUMONIA, UNSPECIFIED ORGANISM 10/09/2016 ALINE ALCANTARA TRANSCRIPTION SPECIALIST Ot R06.09 OTHER FORMS OF DYSPNEA 10/09/2016 ALINE ALCANTARA TRANSCRIPTION SPECIALIST Ot R09.02 HYPOXEMIA 10/27/2016 ALINE ALCANTARA TRANSCRIPTION SPECIALIST Ot J18.9 PNEUMONIA, UNSPECIFIED ORGANISM 10/27/2016 ALINE ALCANTARA TRANSCRIPTION SPECIALIST Ot R06.09 OTHER FORMS OF DYSPNEA 10/27/2016 ALINE ALCANTARA TRANSCRIPTION SPECIALIST Ot R09.02 HYPOXEMIA 11/11/2016 ALINE ALCANTARA TRANSCRIPTION SPECIALIST Ot J18.9 PNEUMONIA, UNSPECIFIED ORGANISM 11/11/2016 ALINE ALCANTARA TRANSCRIPTION SPECIALIST Ot R06.09 OTHER FORMS OF DYSPNEA 11/11/2016 ALINE ALCANTARA TRANSCRIPTION SPECIALIST Ot R09.02 HYPOXEMIA 11/12/2016 ALINE ALCANTARA TRANSCRIPTION SPECIALIST Ot J18.9 PNEUMONIA, UNSPECIFIED ORGANISM 11/12/2016 ALINE ALCANTARA TRANSCRIPTION SPECIALIST Ot R06.09 OTHER FORMS OF DYSPNEA 11/12/2016 MARICRUZ, ALINE Ernesto TRANSCRIPTION SPECIALIST Ot R09.02 HYPOXEMIA 12/02/2016 MARICRUZ ALINE Orozco TRANSCRIPTION SPECIALIST Ot J18.9 PNEUMONIA, UNSPECIFIED ORGANISM 12/02/2016 MARICRUZ, ALINE Ernesto TRANSCRIPTION SPECIALIST Ot R06.09 OTHER FORMS OF DYSPNEA 12/02/2016 MARICRUZ ALINE Orozco TRANSCRIPTION SPECIALIST Ot R09.02 HYPOXEMIA 12/02/2016 MARICRUZ ALINE Orozco TRANSCRIPTION SPECIALIST Ot J18.9 PNEUMONIA, UNSPECIFIED ORGANISM 12/02/2016 MARICRUZ, ALINE Ernesto TRANSCRIPTION SPECIALIST Ot R06.09 OTHER FORMS OF DYSPNEA 12/02/2016 MARICRUZ ALINE Orozco TRANSCRIPTION SPECIALIST Ot R09.02 HYPOXEMIA 12/16/2016 MARICRUZ ALINE Orozco TRANSCRIPTION SPECIALIST Ot J18.9 PNEUMONIA, UNSPECIFIED ORGANISM 12/16/2016 MARICRUZ, ALINE Orozco TRANSCRIPTION SPECIALIST Ot R06.09 OTHER FORMS OF DYSPNEA 12/16/2016 MARICRUZ ALINE Orozco TRANSCRIPTION SPECIALIST Ot R09.02 HYPOXEMIA 01/20/2017 ANGELICA HARLEY DO Ot M06. 9 RHEUMATOID ARTHRITIS, UNSPECIFIED 01/20/2017 ANGELICA HARLEY DO Ot R06. 09 OTHER FORMS OF DYSPNEA 01/20/2017 ANGELICA HARLEY DO Ot R09. 02 HYPOXEMIA 02/10/2017 ANGELICA HARLEY DO Ot M06. 9 RHEUMATOID ARTHRITIS, UNSPECIFIED 02/10/2017 ANGELICA HARLEY DO Ot R06. 09 OTHER FORMS OF DYSPNEA 02/10/2017 ANGELICA HARLEY DO Ot R09. 02 HYPOXEMIA 05/28/2017 EMERALD JACOBO, EDWARD Panda Ot R05 COUGH 06/29/2017 EDWARD CORBIN MD Ot R05 COUGH 07/17/2017 ANGELO MIRANDA APRN Ot I10 ESSENTIAL (PRIMARY) HYPERTENSION 07/17/2017 ANGELO MIRANDA APRN Ot J45.909 UNSPECIFIED ASTHMA, UNCOMPLICATED 07/17/2017 ANGELO MIRANDA APRN Ot M06 .9 RHEUMATOID ARTHRITIS, UNSPECIFIED 07/17/2017 ANGELO MIRANDA APRN Ot M24.851 OTH SPECIFIC JOINT DERANGEMENTS OF RIGHT 07/17/2017 ANGELO MIRANDA APRN Ot M25.551 PAIN IN RIGHT HIP 07/17/2017 MIRANDA, PETER J TRANSCRIPTION SPECIALIST Ot X50.0XXA OVEREXERTION FROM STRENUOUS MOVEMENT OR 07/17/2017 ANGELO MIRANDA TRANSCRIPTION SPECIALIST Ot Z80 .0 FAMILY HISTORY OF MALIGNANT NEOPLASM OF 07/17/2017 ANGELO MIRANDA TRANSCRIPTION SPECIALIST Ot Z82.49 FAMILY HX OF ISCHEM HEART DIS AND OTH DI 07/17/2017 ANGELO MIRANDA TRANSCRIPTION SPECIALIST Ot Z90.49 ACQUIRED ABSENCE OF OTHER SPECIFIED PART 07/17/2017 ANGELO MIRANDA TRANSCRIPTION SPECIALIST Ot Z90.710 ACQUIRED ABSENCE OF BOTH CERVIX AND UTER 08/24/2017 EMERALD JACOBO, EDWARD N Ot 714 .0 RHEUMATOID ARTHRITIS 08/24/2017 Ot 787.29 OTH ER DYSPHAGIA 08/24/2017 EDWARD CORBIN MD Ot 272 .4 HYPERLIPIDEMIA NEC/NOS 08/24/2017 EDWARD CORBIN MD N Ot 585 .9 CHRONIC KIDNEY DISEASE, UNSPECIFIED 08/24/2017 EDWARD CORBIN MD N Ot 787.91 DIARRHEA 08/24/2017 EDWARD CORBIN MD N Ot M54.17 RADICULOPATHY, LUMBOSACRAL REGION 08/24/2017 EDWARD CORBIN MD N Ot R31 .9 HEMATURIA, UNSPECIFIED 08/24/2017 PATELPRATIMA ROY DO Ot R19. 7 DIARRHEA, UNSPECIFIED 08/24/2017 PATELPRATIMA ROY DO D Ot R19. 7 DIARRHEA, UNSPECIFIED 08/24/2017 PRATIMA PATEL DO Ot Z01.818 ENCOUNTER FOR OTHER PREPROCEDURAL EXAMIN 08/24/2017 ALINE ALCANTARA APRN Ot J18.9 PNEUMONIA, UNSPECIFIED ORGANISM 08/24/2017 ALINE ALCANTARA APRN Ot R06.09 OTHER FORMS OF DYSPNEA 08/24/2017 ALINE ALCANTARA APRN Ot R09.02 HYPOXEMIA 08/24/2017 ALINE ALCANTARA APRN Ot J18.9 PNEUMONIA, UNSPECIFIED ORGANISM 08/24/2017 ALINE ALCANTARA APRN Ot R06.09 OTHER FORMS OF DYSPNEA 08/24/2017 ALINE ALCANTARA APRN Ot R09.02 HYPOXEMIA 08/24/2017 ANGELICA HARLEY DO Ot M06. 9 RHEUMATOID ARTHRITIS, UNSPECIFIED 08/24/2017 ANGELICA HARLEY DO Ot R06. 09 OTHER FORMS OF DYSPNEA 08/24/2017 ANGELICA HARLEY DO Ot R09. 02 HYPOXEMIA 08/24/2017 EWDARD CORBIN MD Ot R05 COUGH 01/12/2018 EDWARD CORBIN MD Ot 714 .0 RHEUMATOID ARTHRITIS 01/12/2018 Ot 787.29 OTH ER DYSPHAGIA 01/12/2018 EDWARD CORBIN MD Ot 272 .4 HYPERLIPIDEMIA NEC/NOS 01/12/2018 EDWARD CORBIN MD Ot 585 .9 CHRONIC KIDNEY DISEASE, UNSPECIFIED 01/12/2018 EDWARD CORBIN MD Ot 787.91 DIARRHEA 01/12/2018 EDWARD CORBIN MD Ot M54.17 RADICULOPATHY, LUMBOSACRAL REGION 01/12/2018 EDWARD CORBIN MD Ot R31 .9 HEMATURIA, UNSPECIFIED 01/12/2018 PRATIMA PATEL DO Ot R19. 7 DIARRHEA, UNSPECIFIED 01/12/2018 PRATIMA PATEL DO Ot R19. 7 DIARRHEA, UNSPECIFIED 01/12/2018 PRATIMA PATEL DO Ot Z01.818 ENCOUNTER FOR OTHER PREPROCEDURAL EXAMIN 01/12/2018 ALINE ALCANTARA TRANSCRIPTION SPECIALIST Ot J18.9 PNEUMONIA, UNSPECIFIED ORGANISM 01/12/2018 ALINE ALCANTARA TRANSCRIPTION SPECIALIST Ot R06.09 OTHER FORMS OF DYSPNEA 01/12/2018 ALINE ALCANTARA TRANSCRIPTION SPECIALIST Ot R09.02 HYPOXEMIA 01/12/2018 ALINE ALCANTARA TRANSCRIPTION SPECIALIST Ot J18.9 PNEUMONIA, UNSPECIFIED ORGANISM 01/12/2018 ALINE ALCANTARA TRANSCRIPTION SPECIALIST Ot R06.09 OTHER FORMS OF DYSPNEA 01/12/2018 ALINE ALCANTARA TRANSCRIPTION SPECIALIST Ot R09.02 HYPOXEMIA 01/12/2018 ANGELICA HARLEY DO Ot M06. 9 RHEUMATOID ARTHRITIS, UNSPECIFIED 01/12/2018 ANGELICA HARLEY DO Ot R06. 09 OTHER FORMS OF DYSPNEA 01/12/2018 ANGELICA HARLEY DO Ot R09. 02 HYPOXEMIA 01/12/2018 EDWARD CORBIN MD Ot R05 COUGH 01/17/2018 EDWARD CORBIN MD Ot M81 .0 AGE-RELATED OSTEOPOROSIS W/O CURRENT PAT 01/17/2018 EDWARD CORBIN MD Ot Z12.31 ENCNTR SCREEN MAMMOGRAM FOR MALIGNANT NE 01/28/2018 EDWARD CORBIN MD Ot 714 .0 RHEUMATOID ARTHRITIS 01/28/2018 Ot 787.29 OTH ER DYSPHAGIA 01/28/2018 EDWARD CORBIN MD Ot 272 .4 HYPERLIPIDEMIA NEC/NOS 01/28/2018 DEWARD CORBIN MD Ot 585 .9 CHRONIC KIDNEY DISEASE, UNSPECIFIED 01/28/2018 EDWARD CORBIN MD Ot 787.91 DIARRHEA 01/28/2018 EDWARD CORBIN MD Ot M54.17 RADICULOPATHY, LUMBOSACRAL REGION 01/28/2018 EDWARD CORBIN MD Ot R31 .9 HEMATURIA, UNSPECIFIED 01/28/2018 PATELPRATIAM ROY DO Ot R19. 7 DIARRHEA, UNSPECIFIED 01/28/2018 PATELPRATIMA ROY DO Ot R19. 7 DIARRHEA, UNSPECIFIED 01/28/2018 PATELPRATIMA ROY DO Ot Z01.818 ENCOUNTER FOR OTHER PREPROCEDURAL EXAMIN 01/28/2018 ALINE ALCANTARA APRN Ot J18.9 PNEUMONIA, UNSPECIFIED ORGANISM 01/28/2018 ALINE ALCANTARA APRN Ot R06.09 OTHER FORMS OF DYSPNEA 01/28/2018 ALINE ALCANTARA APRN Ot R09.02 HYPOXEMIA 01/28/2018 ALINE ALCANTARA APRN Ot J18.9 PNEUMONIA, UNSPECIFIED ORGANISM 01/28/2018 ALINE ALCANTARA APRN Ot R06.09 OTHER FORMS OF DYSPNEA 01/28/2018 ALINE ALCANTARA APRN Ot R09.02 HYPOXEMIA 01/28/2018 ANGELICA HARLEY DO Ot M06. 9 RHEUMATOID ARTHRITIS, UNSPECIFIED 01/28/2018 ANGELICA HARLEY DO Ot R06. 09 OTHER FORMS OF DYSPNEA 01/28/2018 ANGELICA HARLEY DO Ot R09. 02 HYPOXEMIA 01/28/2018 EDWARD CORBIN MD Ot R05 COUGH 01/28/2018 EDWARD CORBIN MD Ot M81 .0 AGE-RELATED OSTEOPOROSIS W/O CURRENT PAT 01/28/2018 EDWARD CORBIN MD Ot Z12.31 ENCNTR SCREEN MAMMOGRAM FOR MALIGNANT NE 01/28/2018 EDWARD CORBIN MD Ot M81 .0 AGE-RELATED OSTEOPOROSIS W/O CURRENT PAT 01/31/2018 EDWARD CORBIN MD Ot R00 .0 TACHYCARDIA, UNSPECIFIED 02/09/2018 EDWARD CORBIN MD Ot R00 .0 TACHYCARDIA, UNSPECIFIED 03/21/2018 MIKEY SMALL TRANSCRIPTION SPECIALIST Ot S99.911A UNSPECIFIED INJURY OF RIGHT ANKLE, INITI 03/21/2018 MIKEY SMALL TRANSCRIPTION SPECIALIST Ot X50.1XXA OVEREXERTION FROM PROLONGED STATIC OR AW 03/21/2018 MIKEY SMALL TRANSCRIPTION SPECIALIST Ot S99.911A UNSPECIFIED INJURY OF RIGHT ANKLE, INITI 03/21/2018 MIKEY SMALL TRANSCRIPTION SPECIALIST Ot X50.1XXA OVEREXERTION FROM PROLONGED STATIC OR AW 03/28/2018 MIKEY SMALL TRANSCRIPTION SPECIALIST Ot S99.911A UNSPECIFIED INJURY OF RIGHT ANKLE, INITI 03/28/2018 MIKEY SMALL APRN Ot X50.1XXA OVEREXERTION FROM PROLONGED STATIC OR AW 04/02/2018 MIKEY SMALL TRANSCRIPTION SPECIALIST Ot S99.911A UNSPECIFIED INJURY OF RIGHT ANKLE, INITI 04/02/2018 SMALLMIKEY WREN TRANSCRIPTION SPECIALIST Ot X50.1XXA OVEREXERTION FROM PROLONGED STATIC OR AW 04/02/2018 MIKEY SMALL TRANSCRIPTION SPECIALIST Ot S99.911A UNSPECIFIED INJURY OF RIGHT ANKLE, INITI 04/02/2018 MIKEY SMALL APRN Ot X50.1XXA OVEREXERTION FROM PROLONGED STATIC OR AW 04/02/2018 MIKEY SMALL TRANSCRIPTION SPECIALIST Ot S99.911A UNSPECIFIED INJURY OF RIGHT ANKLE, INITI 04/02/2018 MIKEY SMALL TRANSCRIPTION SPECIALIST Ot X50.1XXA OVEREXERTION FROM PROLONGED STATIC OR AW 04/07/2018 MIKEY SMALL TRANSCRIPTION SPECIALIST Ot S99.911A UNSPECIFIED INJURY OF RIGHT ANKLE, INITI 04/07/2018 MIKEY SMALL APRN Ot X50.1XXA OVEREXERTION FROM PROLONGED STATIC OR AW 05/18/2018 Ot J40 BRONCH ITIS, NOT SPECIFIED ACUTE OR CH 05/18/2018 Ot R06.09 OTH ER FORMS OF DYSPNEA 09/15/2018 Ot J40 BRONCH ITIS, NOT SPECIFIED ACUTE OR CH 09/15/2018 Ot R06.09 OT ER FORMS OF DYSPNEA 02/06/2019 EDWARD CORBIN MD Ot 714 .0 RHEUMATOID ARTHRITIS 02/06/2019 Ot 787.29 OT ER DYSPHAGIA 02/06/2019 EDWARD CORBIN MD Ot 272 .4 HYPERLIPIDEMIA NEC/NOS 02/06/2019 EDWARD CORBIN MD Ot 585 .9 CHRONIC KIDNEY DISEASE, UNSPECIFIED 02/06/2019 EDWARD CORBIN MD Ot 787.91 DIARRHEA 02/06/2019 EDWARD CORBIN MD Ot M54.17 RADICULOPATHY, LUMBOSACRAL REGION 02/06/2019 EDWARD CORBIN MD Ot R31 .9 HEMATURIA, UNSPECIFIED 02/06/2019 PATEL PRATIMA GARCIAS Ot R19. 7 DIARRHEA, UNSPECIFIED 02/06/2019 PATEL DOCLAUDIOTT D Ot R19. 7 DIARRHEA, UNSPECIFIED 02/06/2019 PATELPRATIMA ROY DO Ot Z01.818 ENCOUNTER FOR OTHER PREPROCEDURAL EXAMIN 02/06/2019 ALINE ALCANTARA APRN Ot J18.9 PNEUMONIA, UNSPECIFIED ORGANISM 02/06/2019 ALINE ALCANTARA APRN Ot R06.09 OTHER FORMS OF DYSPNEA 02/06/2019 ALINE ALCANTARA APRN Ot R09.02 HYPOXEMIA 02/06/2019 ALINE ALCANTARA APRN Ot J18.9 PNEUMONIA, UNSPECIFIED ORGANISM 02/06/2019 ALINE ALCANTARA APRN Ot R06.09 OTHER FORMS OF DYSPNEA 02/06/2019 ALINE ALCANTARA APRN Ot R09.02 HYPOXEMIA 02/06/2019 ANGELICA HARLEY DO Ot M06. 9 RHEUMATOID ARTHRITIS, UNSPECIFIED 02/06/2019 ANGELICA HARLEY DO Ot R06. 09 OTHER FORMS OF DYSPNEA 02/06/2019 ANGELICA HARLEY DO Ot R09. 02 HYPOXEMIA 02/06/2019 EDWARD CORBIN MD Ot R05 COUGH 02/06/2019 EDWARD CORBIN MD Ot M81 .0 AGE-RELATED OSTEOPOROSIS W/O CURRENT PAT 02/06/2019 EDWARD CORBIN MD Ot R00 .0 TACHYCARDIA, UNSPECIFIED 02/06/2019 MIKEY SMALL APRN Ot S99.911A UNSPECIFIED INJURY OF RIGHT ANKLE, INITI 02/06/2019 MIKEY SMALL TRANSCRIPTION SPECIALIST Ot X50.1XXA OVEREXERTION FROM PROLONGED STATIC OR AW 02/06/2019 Ot J40 BRONCH ITIS, NOT SPECIFIED ACUTE OR CH 02/06/2019 Ot R06.09 OTH ER FORMS OF DYSPNEA 02/14/2019 EDWARD CORBIN MD Ot J96.11 CHRONIC RESPIRATORY FAILURE WITH HYPOXIA 02/16/2019 EDWARD CORBIN MD Ot J96.11 CHRONIC RESPIRATORY FAILURE WITH HYPOXIA 02/21/2019 EDWARD CORBIN MD Ot J96.11 CHRONIC RESPIRATORY FAILURE WITH HYPOXIA 02/21/2019 EDWARD CORBIN MD, Ot J96.11 CHRONIC RESPIRATORY FAILURE WITH HYPOXIA 02/28/2019 EDWARD CORBIN MD Ot J96.11 CHRONIC RESPIRATORY FAILURE WITH HYPOXIA 03/01/2019 EDWARD CORBIN MD Ot J96.11 CHRONIC RESPIRATORY FAILURE WITH HYPOXIA 03/09/2019 EDWARD CORBIN MD Ot J96.11 CHRONIC RESPIRATORY FAILURE WITH HYPOXIA 03/22/2019 ALINE ALCANTARA APRN Ot J30.9 ALLERGIC RHINITIS, UNSPECIFIED 03/22/2019 ALINE ALCANTARA APRN Ot J40 BRONCHITIS, NOT SPECIFIED ACUTE OR CH 03/22/2019 ALINE ALCANTARA APRN Ot J44.9 CHRONIC OBSTRUCTIVE PULMONARY DISEASE, U 03/22/2019 ALINE ALCANTARA APRN Ot M06.9 RHEUMATOID ARTHRITIS, UNSPECIFIED 04/03/2019 EDWARD CORBIN MD Ot J96.11 CHRONIC RESPIRATORY FAILURE WITH HYPOXIA 05/07/2019 EDWARD CORBIN MD Ot J96.11 CHRONIC RESPIRATORY FAILURE WITH HYPOXIA 05/08/2019 EDWARD CORBIN MD Ot J96.11 CHRONIC RESPIRATORY FAILURE WITH HYPOXIA Procedures Code Description Performed By Per formed On CARDIOLOG MIKAL JIMENEZ 05/11/2014 99183 EKG, TRACING (IN-HOUSE) 05/11/2014 70247 VIT B 12 05/29/2014 10896 ROUT INE VENIPUNCTURE 05/29/2014 84670 CBC 05/29/2014 3430980 GF R CALC (RESULT ONLY) 05/29/2014 64337 CMP 05/29/2014 50644 LIPI D PANEL 05/29/2014 48697 MAGNESIUM 05/29/2014 05262 TSH 05/29/2014 18480 ROUT INE VENIPUNCTURE 06/13/2014 94860 THER APUTIC INJ SQ/IM 06/13/2014 J3420 B12 VITAMIN INJECTION 06/13/2014 00927 BMP 06/13/2014 [id number] GF R CALC (RESULT ONLY) 06/13/2014 27971 THER APUTIC INJ SQ/IM 08/09/2014 J3420 B12 VITAMIN INJECTION 08/09/2014 81282 CULT URE URINE 08/09/2014 61659 OXIMETRY 08/09/2014 70188 UA W / CULTURE IF INDICATED 08/09/2014 99110 INFL UENZA A & B (IN-HOUSE) 09/05/2014 23612 OXIMETRY 09/05/2014 86927 [employer] 10/02/2014 Results Test Result Range Complete blood count (CBC) with automate d white blood cell (WBC) differential - 09/13/16 09:10 Blood leukocytes automated count (number/volume) 5.5 10*3/uL 4.3-11.0 Blood erythrocytes automated count (number/volume) 4.78 10*6/uL 4.35-5.85 Venous blood hemoglobin measurement (mass/volume) 13.9 g/dL 11.5-16.0 Blood hematocrit (volume fraction) 43 % 35-52 Automated erythrocyte mean corpuscular volume 90 [ foz_us] 80-99 Automated erythrocyte mean corpuscular h emoglobin (mass per erythrocyte) 29 pg 25-34 Automated erythrocyte mean corpuscular h emoglobin concentration measurement (mass/volume) 32 g/dL 32-36 Automated erythrocyte distribution width ratio 15. 1 % 10.0- 14.5 Automated blood platelet count (count/volume) 227 10*3/uL 130-400 Automated blood platelet mean volume measurement 10.9 [foz_us] 7.4-10.4 Automated blood neutrophils/100 leukocytes 65 % 42-75 Automated blood lymphocytes/100 leukocytes 25 % 12-44 Blood monocytes/100 leukocytes 10 % 0-12 Automated blood eosinophils/100 leukocytes 1 % 0-10 Automated blood basophils/100 leukocytes 0 % 0-10 Blood neutrophils automated count (number/volume) 3.6 10*3 1.8-7.8 Blood lymphocytes automated count (number/volume) 1.4 10*3 1.0-4.0 Blood monocytes automated count (number/volume) 0. 5 10*3 0.0-1.0 Automated eosinophil count 0.0 10*3/uL 0 .0-0.3 Automated blood basophil count (count/volume) 0.0 10*3/uL 0.0-0.1 Blood lactic acid measurement (moles/vol ume) - 09/13/16 09:10 Blood lactic acid measurement (moles/volume) 2.3 m mol/L 0.5- 2.0 Bacterial blood culture - 09/13/16 09:10 Bacterial blood culture NG NRG Bacterial blood culture - 09/13/16 09:40 Bacterial blood culture NG NRG Streptococcus pyogenes antigen detection - 09/13/16 10:00 Streptococcus pyogenes antigen detection NEGATIVE NEGATIVE Bacterial throat culture - 09/13/16 10:0 0 Bacterial throat culture NBS NRG Serum or plasma lactate measurement (mol es/volume) - 09/13/16 11:30 Serum or plasma lactate measurement (moles/volume) 2.1 mmol/L 0.5-2.0 Complete blood count (CBC) with automate d white blood cell (WBC) differential - 09/14/16 06:58 Blood leukocytes automated count (number/volume) 6.9 10*3/uL 4.3-11.0 Blood erythrocytes automated count (number/volume) 4.47 10*6/uL 4.35-5.85 Venous blood hemoglobin measurement (mass/volume) 13.1 g/dL 11.5-16.0 Blood hematocrit (volume fraction) 40 % 35-52 Automated erythrocyte mean corpuscular volume 89 [ foz_us] 80-99 Automated erythrocyte mean corpuscular h emoglobin (mass per erythrocyte) 29 pg 25-34 Automated erythrocyte mean corpuscular h emoglobin concentration measurement (mass/volume) 33 g/dL 32-36 Automated erythrocyte distribution width ratio 15. 0 % 10.0- 14.5 Automated blood platelet count (count/volume) 241 10*3/uL 130-400 Automated blood platelet mean volume measurement 10.9 [foz_us] 7.4-10.4 Automated blood neutrophils/100 leukocytes 87 % 42-75 Automated blood lymphocytes/100 leukocytes 10 % 12-44 Blood monocytes/100 leukocytes 3 % 0-12 Automated blood eosinophils/100 leukocytes 0 % 0-10 Automated blood basophils/100 leukocytes 0 % 0-10 Blood neutrophils automated count (number/volume) 6.0 10*3 1.8-7.8 Blood lymphocytes automated count (number/volume) 0.7 10*3 1.0-4.0 Blood monocytes automated count (number/volume) 0. 2 10*3 0.0-1.0 Automated eosinophil count 0.0 10*3/uL 0 .0-0.3 Automated blood basophil count (count/volume) 0.0 10*3/uL 0.0-0.1 Comprehensive metabolic panel - 09/14/16 06:58 Serum or plasma sodium measurement (moles/volume) 138 mmol/L 135-145 Serum or plasma potassium measurement (moles/volume) 4.3 mmol/L 3.6-5.0 Serum or plasma chloride measurement (moles/volume) 108 mmol/L 98-107 Carbon dioxide 18 mmol/L 21-32 Serum or plasma anion gap determination (moles/volume) 12 mmol/L 5-14 Serum or plasma urea nitrogen measurement (mass/volume ) 17 mg/dL 7-18 Serum or plasma creatinine measurement (mass/volume) 0.90 mg/dL 0.60-1.30 Serum or plasma urea nitrogen/creatinine mass ratio 19 NRG Serum or plasma creatinine measurement w ith calculation of estimated glomerular filtration rate > NRG Serum or plasma glucose measurement (mass/volume) 137 mg/dL 70-105 Serum or plasma calcium measurement (mass/volume) 8.6 mg/dL 8.5-10.1 Serum or plasma total bilirubin measurement (mass/volu me) 0.3 mg/dL 0.1-1.0 Serum or plasma alkaline phosphatase abi surement (enzymatic activity/volume) 54 U/L 40-136 Serum or plasma aspartate aminotransfera se measurement (enzymatic activity/volume) 21 U/L 5-34 Serum or plasma alanine aminotransferase measurement (enzymatic activity/volume) 29 U/L 0-55 Serum or plasma protein measurement (mass/volume) 6.1 g/dL 6.4-8.2 Serum or plasma albumin measurement (mass/volume) 3.8 g/dL 3.2-4.5 Blood manual differential performed dete ction - 09/14/16 06:58 Blood monocytes/100 leukocytes 5 % NRG Manual blood segmented neutrophils/100 leukocytes 75 % NRG Blood band neutrophils/100 leukocytes 3 % NRG Manual blood lymphocytes/100 leukocytes 17 % NRG Manual eosinophils/100 leukocytes in nose 0 % NRG Manual blood basophils/100 leukocytes 0 % NRG Blood erythrocyte morphology finding identification NORMAL NRG CBC With Differential/Platelet - 6 09:21 WBC 16.1 x10E3/uL 3.4-10.8 RBC 4.48 x10E6/uL 3.77-5.28 Hemoglobin 13.0 g/dL 11.1-15.9 Hematocrit 39.1 % 34.0-46.6 MCV 87 fL 79-97 MCH 29.0 pg 26.6-33.0 MCHC 33.2 g/dL 31.5-35.7 RDW 14.9 % 12.3-15.4 Platelets 282 x10E3/uL 150-379 Neutrophils 88 % Lymphs 5 % Monocytes 6 % Eos 0 % Basos 0 % Neutrophils (Absolute) 14.1 x10E3/uL 1.4 -7.0 Lymphs (Absolute) 0.7 x10E3/uL 0.7-3.1 Monocytes(Absolute) 0.9 x10E3/uL 0.1-0.9 Eos (Absolute) 0.1 x10E3/uL 0.0-0.4 Baso (Absolute) 0.0 x10E3/uL 0.0-0.2 Immature Granulocytes 1 % Immature Grans (Abs) 0.2 x10E3/uL 0.0-0. 1 Comp. Metabolic Panel (14) - 09/15/16 09 :21 Glucose, Serum 103 mg/dL 65-99 BUN 21 mg/dL 6-24 Creatinine, Serum 0.91 mg/dL 0.57-1.00 eGFR If NonAfricn Am 75 mL/min/1.73 >59 eGFR If Africn Am 87 mL/min/1.73 >59 BUN/Creatinine Ratio 23 9-23 Sodium, Serum 140 mmol/L 134-144 Potassium, Serum 3.9 mmol/L 3.5-5.2 Chloride, Serum 103 mmol/L 96-106 Carbon Dioxide, Total 18 mmol/L 18-29 Calcium, Serum 8.8 mg/dL 8.7-10.2 Protein, Total, Serum 6.0 g/dL 6.0-8.5 Albumin, Serum 3.6 g/dL 3.5-5.5 Globulin, Total 2.4 g/dL 1.5-4.5 A/G Ratio 1.5 1.1-2.5 Bilirubin, Total 0.3 mg/dL 0.0-1.2 Alkaline Phosphatase, S 60 IU/L 39-117 AST (SGOT) 37 IU/L 0-40 ALT (SGPT) 41 IU/L 0-32 Protein Electro.,S - 09/15/16 09:21 Albumin 3.2 g/dL 2.9-4.4 Iivdh-0-Hsesuphk 0.2 g/dL 0.0-0.4 Qfqio-7-Uyhbdiij 1.1 g/dL 0.4-1.0 Beta Globulin 1.0 g/dL 0.7-1.3 Gamma Globulin 0.6 g/dL 0.4-1.8 M-Sonny Not Observed g/dL Not Observed Globulin, Total 2.8 g/dL 2.2-3.9 A/G Ratio 1.1 0.7-1.7 Please note: Comment Hepatitis Panel (4) - 09/15/16 09:21 HBsAg Screen Negative Negative Hep A Ab, IgM Negative Negative Hep B Core Ab, IgM Negative Negative Hep C Virus Ab <0.1 s/co ratio 0.0-0.9 Rheumatoid Arthritis Factor - 09/15/16 0 9:21 RA Latex Turbid. 10.5 IU/mL 0.0-13.9 CCP Antibodies IgG/IgA - 09/15/16 09:21 CCP Antibodies IgG/IgA 7 units 0-19 Sedimentation Rate-[facility] - 09/15/16 09:21 [facility]/hr 0-32 C-Reactive Protein, Quant - 09/15/16 09: 21 C-Reactive Protein, Quant 5.6 mg/L 0.0- 4.9 Antinuclear Antibodies, IFA - 09/15/16 0 9:21 Antinuclear Antibodies, IFA Negative Complete blood count (CBC) with automate d white blood cell (WBC) differential - 09/22/16 14:20 Blood leukocytes automated count (number/volume) 8.6 10*3/uL 4.3-11.0 Blood erythrocytes automated count (number/volume) 4.63 10*6/uL 4.35-5.85 Venous blood hemoglobin measurement (mass/volume) 13.6 g/dL 11.5-16.0 Blood hematocrit (volume fraction) 41 % 35-52 Automated erythrocyte mean corpuscular volume 89 [ foz_us] 80-99 Automated erythrocyte mean corpuscular h emoglobin (mass per erythrocyte) 29 pg 25-34 Automated erythrocyte mean corpuscular h emoglobin concentration measurement (mass/volume) 33 g/dL 32-36 Automated erythrocyte distribution width ratio 14. 6 % 10.0- 14.5 Automated blood platelet count (count/volume) 310 10*3/uL 130-400 Automated blood platelet mean volume measurement 9.7 [foz_us] 7.4-10.4 Automated blood neutrophils/100 leukocytes 71 % 42-75 Automated blood lymphocytes/100 leukocytes 21 % 12-44 Blood monocytes/100 leukocytes 7 % 0-12 Automated blood eosinophils/100 leukocytes 1 % 0-10 Automated blood basophils/100 leukocytes 0 % 0-10 Blood neutrophils automated count (number/volume) 6.1 10*3 1.8-7.8 Blood lymphocytes automated count (number/volume) 1.8 10*3 1.0-4.0 Blood monocytes automated count (number/volume) 0. 6 10*3 0.0-1.0 Automated eosinophil count 0.1 10*3/uL 0 .0-0.3 Automated blood basophil count (count/volume) 0.0 10*3/uL 0.0-0.1 Blood lactic acid measurement (moles/vol ume) - 09/22/16 14:20 Blood lactic acid measurement (moles/volume) 1.0 m mol/L 0.5- 2.0 Whole blood basic metabolic panel - 12/04 14:20 Serum or plasma sodium measurement (moles/volume) 140 mmol/L 135-145 Serum or plasma potassium measurement (moles/volume) 3.4 mmol/L 3.6-5.0 Serum or plasma chloride measurement (moles/volume) 105 mmol/L 98-107 Carbon dioxide 22 mmol/L 21-32 Serum or plasma anion gap determination (moles/volume) 13 mmol/L 5-14 Serum or plasma urea nitrogen measurement (mass/volume ) 20 mg/dL 7-18 Serum or plasma creatinine measurement (mass/volume) 0.92 mg/dL 0.60-1.30 Serum or plasma urea nitrogen/creatinine mass ratio 22 NRG Serum or plasma creatinine measurement w ith calculation of estimated glomerular filtration rate > NRG Serum or plasma glucose measurement (mass/volume) 83 mg/dL 70-105 Serum or plasma calcium measurement (mass/volume) 9.2 mg/dL 8.5-10.1 Bacterial blood culture - 09/22/16 14:20 Bacterial blood culture NG NRG Bacterial blood culture - 09/22/16 14:20 Bacterial blood culture NG NRG Whole blood basic metabolic panel - 02/03 05:53 Serum or plasma sodium measurement (moles/volume) 141 mmol/L 135-145 Serum or plasma potassium measurement (moles/volume) 4.3 mmol/L 3.6-5.0 Serum or plasma chloride measurement (moles/volume) 109 mmol/L 98-107 Carbon dioxide 19 mmol/L 21-32 Serum or plasma anion gap determination (moles/volume) 13 mmol/L 5-14 Serum or plasma urea nitrogen measurement (mass/volume ) 23 mg/dL 7-18 Serum or plasma creatinine measurement (mass/volume) 0.85 mg/dL 0.60-1.30 Serum or plasma urea nitrogen/creatinine mass ratio 27 NRG Serum or plasma creatinine measurement w ith calculation of estimated glomerular filtration rate > NRG Serum or plasma glucose measurement (mass/volume) 142 mg/dL 70-105 Serum or plasma calcium measurement (mass/volume) 9.5 mg/dL 8.5-10.1 Sputum Gram stain - 01/20/17 06:30 GRAM STAIN SPUTUM RARE GRAM POSITIVE COCCI NRG Bacteria identification in bronchial spe cimen by aerobe culture - 01/20/17 06:30 Bacteria identification in bronchial specimen by aerob e culture NORMAL NRG Fungus culture - 01/20/17 06:30 Fungus culture NG NRG Fungus culture - 01/20/17 06:30 Fungus culture NG NRG Mycobacterium species detection by organ ism specific culture - 01/20/17 06:30 DATE/TIME MICROSCOPIC 01/21/2017 NR MICROSCOPIC NO ACID-FAST BACILLI FOUND NRG AFB CULTURE NO MYCOBACTERIA RECOVERED AFTER 6 WEEK S NRG DATE FINAL AFB CULTURE 03-05-2017 NRG Urine Culture, Routine - 02/11/17 17:06 Urine Culture, Routine Note CMP - 09/05/17 09:36 Glucose, Serum 103 mg/dL 65-99 BUN 16 mg/dL 6-24 Creatinine, Serum 1.14 mg/dL 0.57-1.00 eGFR If NonAfricn Am 57 mL/min/1.73 >59 eGFR If Africn Am 66 mL/min/1.73 >59 BUN/Creatinine Ratio 14 9-23 Sodium, Serum 142 mmol/L 134-144 Potassium, Serum 4.0 mmol/L 3.5-5.2 Chloride, Serum 106 mmol/L 96-106 Carbon Dioxide, Total 20 mmol/L 18-29 Calcium, Serum 9.1 mg/dL 8.7-10.2 Protein, Total, Serum 6.1 g/dL 6.0-8.5 Albumin, Serum 4.1 g/dL 3.5-5.5 Globulin, Total 2.0 g/dL 1.5-4.5 A/G Ratio 2.1 1.2-2.2 Bilirubin, Total 0.2 mg/dL 0.0-1.2 Alkaline Phosphatase, S 60 IU/L 39-117 AST (SGOT) 17 IU/L 0-40 ALT (SGPT) 21 IU/L 0-32 CBC With Differential/Platelet - 7 09:36 WBC 4.6 x10E3/uL 3.4-10.8 RBC 4.67 x10E6/uL 3.77-5.28 Hemoglobin 13.2 g/dL 11.1-15.9 Hematocrit 40.8 % 34.0-46.6 MCV 87 fL 79-97 MCH 28.3 pg 26.6-33.0 MCHC 32.4 g/dL 31.5-35.7 RDW 13.8 % 12.3-15.4 Platelets 200 x10E3/uL 150-379 Neutrophils 58 % Lymphs 30 % Monocytes 10 % Eos 2 % Basos 0 % Neutrophils (Absolute) 2.6 x10E3/uL 1.4- 7.0 Lymphs (Absolute) 1.4 x10E3/uL 0.7-3.1 Monocytes(Absolute) 0.4 x10E3/uL 0.1-0.9 Eos (Absolute) 0.1 x10E3/uL 0.0-0.4 Baso (Absolute) 0.0 x10E3/uL 0.0-0.2 Immature Granulocytes 0 % Immature Grans (Abs) 0.0 x10E3/uL 0.0-0. 1 Comp. Metabolic Panel (14) - 05/25/17 09 :36 Glucose, Serum 103 mg/dL 65-99 BUN 16 mg/dL 6-24 Creatinine, Serum 1.14 mg/dL 0.57-1.00 eGFR If NonAfricn Am 57 mL/min/1.73 >59 eGFR If Africn Am 66 mL/min/1.73 >59 BUN/Creatinine Ratio 14 9-23 Sodium, Serum 142 mmol/L 134-144 Potassium, Serum 4.0 mmol/L 3.5-5.2 Chloride, Serum 106 mmol/L 96-106 Carbon Dioxide, Total 20 mmol/L 18-29 Calcium, Serum 9.1 mg/dL 8.7-10.2 Protein, Total, Serum 6.1 g/dL 6.0-8.5 Albumin, Serum 4.1 g/dL 3.5-5.5 Globulin, Total 2.0 g/dL 1.5-4.5 A/G Ratio 2.1 1.2-2.2 Bilirubin, Total 0.2 mg/dL 0.0-1.2 Alkaline Phosphatase, S 60 IU/L 39-117 AST (SGOT) 17 IU/L 0-40 ALT (SGPT) 21 IU/L 0-32 LDH - 05/25/17 09:36 LDH 177 IU/L 119-226 CMP - 06/01/17 09:28 Glucose, Serum 91 mg/dL 65-99 BUN 14 mg/dL 6-24 Creatinine, Serum 0.94 mg/dL 0.57-1.00 eGFR If NonAfricn Am 72 mL/min/1.73 >59 eGFR If Africn Am 84 mL/min/1.73 >59 BUN/Creatinine Ratio 15 9-23 Sodium, Serum 141 mmol/L 134-144 Potassium, Serum 4.3 mmol/L 3.5-5.2 Chloride, Serum 102 mmol/L 96-106 Carbon Dioxide, Total 25 mmol/L 18-29 Calcium, Serum 10.0 mg/dL 8.7-10.2 Protein, Total, Serum 6.7 g/dL 6.0-8.5 Albumin, Serum 4.4 g/dL 3.5-5.5 Globulin, Total 2.3 g/dL 1.5-4.5 A/G Ratio 1.9 1.2-2.2 Bilirubin, Total 0.3 mg/dL 0.0-1.2 Alkaline Phosphatase, S 77 IU/L 39-117 AST (SGOT) 41 IU/L 0-40 ALT (SGPT) 62 IU/L 0-32 Comp. Metabolic Panel (14) - 06/01/17 09 :28 Glucose, Serum 91 mg/dL 65-99 BUN 14 mg/dL 6-24 Creatinine, Serum 0.94 mg/dL 0.57-1.00 eGFR If NonAfricn Am 72 mL/min/1.73 >59 eGFR If Africn Am 84 mL/min/1.73 >59 BUN/Creatinine Ratio 15 9-23 Sodium, Serum 141 mmol/L 134-144 Potassium, Serum 4.3 mmol/L 3.5-5.2 Chloride, Serum 102 mmol/L 96-106 Carbon Dioxide, Total 25 mmol/L 18-29 Calcium, Serum 10.0 mg/dL 8.7-10.2 Protein, Total, Serum 6.7 g/dL 6.0-8.5 Albumin, Serum 4.4 g/dL 3.5-5.5 Globulin, Total 2.3 g/dL 1.5-4.5 A/G Ratio 1.9 1.2-2.2 Bilirubin, Total 0.3 mg/dL 0.0-1.2 Alkaline Phosphatase, S 77 IU/L 39-117 AST (SGOT) 41 IU/L 0-40 ALT (SGPT) 62 IU/L 0-32 CMP - 10/27/17 15:47 GLUCOSE 79 mg/dL 65-99 UREA NITROGEN (BUN) 17 mg/dL 7-25 CREATININE 1.20 mg/dL 0.50-1.10 eGFR NON-AFR. SUDANESE 53 mL/min/1.73m2 > OR = 60 eGFR 62 mL/min/1.73m2 > OR = 60 BUN/CREATININE RATIO 14 (calc) 6-22 SODIUM 141 mmol/L 135-146 POTASSIUM 3.8 mmol/L 3.5-5.3 CHLORIDE 108 mmol/L 98-110 CARBON DIOXIDE 25 mmol/L 20-31 CALCIUM 9.7 mg/dL 8.6-10.2 PROTEIN, TOTAL 6.8 g/dL 6.1-8.1 ALBUMIN 4.5 g/dL 3.6-5.1 GLOBULIN 2.3 g/dL (calc) 1.9-3.7 ALBUMIN/GLOBULIN RATIO 2.0 (calc) 1.0-2. 5 BILIRUBIN, TOTAL 0.3 mg/dL 0.2-1.2 ALKALINE PHOSPHATASE 55 U/L 33-115 AST 15 U/L 10-35 ALT 15 U/L 6-29 Complete blood count (CBC) with automate d white blood cell (WBC) differential - 01/28/18 13:07 Blood leukocytes automated count (number/volume) 3.1 10*3/uL 4.3-11.0 Blood erythrocytes automated count (number/volume) 5.21 10*6/uL 4.35-5.85 Venous blood hemoglobin measurement (mass/volume) 15.4 g/dL 11.5-16.0 Blood hematocrit (volume fraction) 46 % 35-52 Automated erythrocyte mean corpuscular volume 87 [ foz_us] 80-99 Automated erythrocyte mean corpuscular h emoglobin (mass per erythrocyte) 30 pg 25-34 Automated erythrocyte mean corpuscular h emoglobin concentration measurement (mass/volume) 34 g/dL 32-36 Automated erythrocyte distribution width ratio 13. 1 % 10.0- 14.5 Automated blood platelet count (count/volume) 220 10*3/uL 130-400 Automated blood platelet mean volume measurement 11.7 [foz_us] 7.4-10.4 Automated blood neutrophils/100 leukocytes 54 % 42-75 Automated blood lymphocytes/100 leukocytes 31 % 12-44 Blood monocytes/100 leukocytes 13 % 0-12 Automated blood eosinophils/100 leukocytes 2 % 0-10 Automated blood basophils/100 leukocytes 1 % 0-10 Blood neutrophils automated count (number/volume) 1.7 10*3 1.8-7.8 Blood lymphocytes automated count (number/volume) 1.0 10*3 1.0-4.0 Blood monocytes automated count (number/volume) 0. 4 10*3 0.0-1.0 Automated eosinophil count 0.1 10*3/uL 0 .0-0.3 Automated blood basophil count (count/volume) 0.0 10*3/uL 0.0-0.1 Blood lactic acid measurement (moles/vol ume) - 01/28/18 13:07 Blood lactic acid measurement (moles/volume) 0.48 mmol/L 0.50-2.00 Comprehensive metabolic panel - 01/28/18 13:07 Serum or plasma sodium measurement (moles/volume) 140 mmol/L 135-145 Serum or plasma potassium measurement (moles/volume) 4.0 mmol/L 3.6-5.0 Serum or plasma chloride measurement (moles/volume) 108 mmol/L 98-107 Carbon dioxide 21 mmol/L 21-32 Serum or plasma anion gap determination (moles/volume) 11 mmol/L 5-14 Serum or plasma urea nitrogen measurement (mass/volume ) 15 mg/dL 7-18 Serum or plasma creatinine measurement (mass/volume) 1.14 mg/dL 0.60-1.30 Serum or plasma urea nitrogen/creatinine mass ratio 13 NRG Serum or plasma creatinine measurement w ith calculation of estimated glomerular filtration rate 51 NRG Serum or plasma glucose measurement (mass/volume) 100 mg/dL 70-105 Serum or plasma calcium measurement (mass/volume) 10.1 mg/dL 8.5-10.1 Serum or plasma total bilirubin measurement (mass/volu me) 0.3 mg/dL 0.1-1.0 Serum or plasma alkaline phosphatase abi surement (enzymatic activity/volume) 64 U/L 40-136 Serum or plasma aspartate aminotransfera se measurement (enzymatic activity/volume) 35 U/L 5-34 Serum or plasma alanine aminotransferase measurement (enzymatic activity/volume) 50 U/L 0-55 Serum or plasma protein measurement (mass/volume) 7.6 g/dL 6.4-8.2 Serum or plasma albumin measurement (mass/volume) 4.8 g/dL 3.2-4.5 THYROID STIMULATING HORMONE - 01/28/18 1 3:07 THYROID STIMULATING HORMONE 0.88 u[iU]/mL 0.35-4.94 LIPID PANEL - 01/10/19 10:38 CHOLESTEROL, TOTAL 258 mg/dL <200 HDL CHOLESTEROL 60 mg/dL >50 TRIGLYCERIDES 224 mg/dL <150 LDL-CHOLESTEROL 160 mg/dL (calc) NRG CHOL/HDLC RATIO 4.3 (calc) <5.0 NON HDL CHOLESTEROL 198 mg/dL (calc) <13 0 BMP - 01/10/19 10:38 GLUCOSE 94 mg/dL 65-99 UREA NITROGEN (BUN) 16 mg/dL 7-25 CREATININE 0.83 mg/dL 0.50-1.10 eGFR NON-AFR. SUDANESE 83 mL/min/1.73m2 > OR = 60 eGFR 96 mL/min/1.73m2 > OR = 60 BUN/CREATININE RATIO NOT APPLICABLE (calc) 6-22 SODIUM 143 mmol/L 135-146 POTASSIUM 3.4 mmol/L 3.5-5.3 CHLORIDE 111 mmol/L 98-110 CARBON DIOXIDE 23 mmol/L 20-32 CALCIUM 9.6 mg/dL 8.6-10.2 Arterial blood gas measurement - 9 11:21 Blood pCO2 35 mm[Hg] 35-45 Blood pO2 84 mm[Hg] 79-93 Arterial blood bicarbonate measurement (moles/volume) 21 mmol/L 23-27 Arterial blood base excess by calculation -2.9 mmo l/L -2.5-2.5 Arterial blood oxygen saturation measurement 96 % 94-100 * Inhaled oxygen flow rate ROOM AIR NRG Arterial blood pH measurement with patient temperature correction 7.40 7.37-7.43 Arterial blood carbon dioxide, total measurement (mole s/volume) 22.3 mmol/L 21.0-31.0 Body site R RAD NRG Assessment of wrist artery patency prior to arterial p uncture YES-POS NRG Setting of ventilation mode NO NR G Measurement of body temperature 97.9 NRG CULTURE, URINE - 06/02/19 16:22 CULTURE, URINE, ROUTINE SEE NOTE NRG CCP ANTIBODY - 11/29/19 11:46 CYCLIC CITRULLINATED PEPTIDE (CCP) AB (IGG) <16 UN ITS NRG COVID-19 (QUEST) - 01/17/20 09:53 Complete blood count (CBC) with automate d white blood cell (WBC) differential - 02/27/20 13:05 Blood leukocytes automated count (number/volume) 5.9 10*3/uL 4.3-11.0 Blood erythrocytes automated count (number/volume) 5.09 10*6/uL 4.35-5.85 Venous blood hemoglobin measurement (mass/volume) 14.4 g/dL 11.5-16.0 Blood hematocrit (volume fraction) 44 % 35-52 Automated erythrocyte mean corpuscular volume 86 [ foz_us] 80-99 Automated erythrocyte mean corpuscular h emoglobin (mass per erythrocyte) 28 pg 25-34 Automated erythrocyte mean corpuscular h emoglobin concentration measurement (mass/volume) 33 g/dL 32-36 Automated erythrocyte distribution width ratio 13. 1 % 10.0- 14.5 Automated blood platelet count (count/volume) 226 10*3/uL 130-400 Automated blood platelet mean volume measurement 12.0 [foz_us] 7.4-10.4 Automated blood neutrophils/100 leukocytes 57 % 42-75 Automated blood lymphocytes/100 leukocytes 30 % 12-44 Blood monocytes/100 leukocytes 11 % 0-12 Automated blood eosinophils/100 leukocytes 2 % 0-10 Automated blood basophils/100 leukocytes 0 % 0-10 Blood neutrophils automated count (number/volume) 3.4 10*3 1.8-7.8 Blood lymphocytes automated count (number/volume) 1.8 10*3 1.0-4.0 Blood monocytes automated count (number/volume) 0. 6 10*3 0.0-1.0 Automated eosinophil count 0.1 10*3/uL 0 .0-0.3 Automated blood basophil count (count/volume) 0.0 10*3/uL 0.0-0.1 Comprehensive metabolic panel - 02/27/20 13:05 Serum or plasma sodium measurement (moles/volume) 140 mmol/L 135-145 Serum or plasma potassium measurement (moles/volume) 4.1 mmol/L 3.6-5.0 Serum or plasma chloride measurement (moles/volume) 110 mmol/L 98-107 Carbon dioxide 18 mmol/L 21-32 Serum or plasma anion gap determination (moles/volume) 12 mmol/L 5-14 Serum or plasma urea nitrogen measurement (mass/volume ) 19 mg/dL 7-18 Serum or plasma creatinine measurement (mass/volume) 0.92 mg/dL 0.60-1.30 Serum or plasma urea nitrogen/creatinine mass ratio 21 NRG Serum or plasma creatinine measurement w ith calculation of estimated glomerular filtration rate > NRG Serum or plasma glucose measurement (mass/volume) 96 mg/dL 70-105 Serum or plasma calcium measurement (mass/volume) 9.7 mg/dL 8.5-10.1 Serum or plasma total bilirubin measurement (mass/volu me) 0.3 mg/dL 0.1-1.0 Serum or plasma alkaline phosphatase abi surement (enzymatic activity/volume) 81 U/L 40-136 Serum or plasma aspartate aminotransfera se measurement (enzymatic activity/volume) 30 U/L 5-34 Serum or plasma alanine aminotransferase measurement (enzymatic activity/volume) 43 U/L 0-55 Serum or plasma protein measurement (mass/volume) 7.2 g/dL 6.4-8.2 Serum or plasma albumin measurement (mass/volume) 4.4 g/dL 3.2-4.5 CALCIUM CORRECTED 9.4 mg/dL 8.5-10.1 Encounters ACCT No. Visit Date/Time Discharge Status Pt. Type Provider Facility Loc./Unit Complaint [id number] 02/14/2017 17:06:00 Document Registration [id number] 02/27/2020 12:52:00 15:08:00 DIS Emergency ANGELO MIRANDA APRN [facility] ER SOA/COUGH [id number] 06/29/2019 11:16:00 23:59:59 CLS Preadmit EDWARD CORBIN MD [facility] RAD CHRONIC RESPIRATORY LITO LURE [id number] 05/08/2019 08:15:00 23:59:59 CLS Preadmit EDWARD CORBIN MD [facility] PUL CHRONIC RESPIRATORY LITO LURE [id number] 02/28/2019 08:00:00 00:01:00 DIS Outpatient EDWARD CORBIN MD [facility] PUL CHRONIC RESPIRATORY LITO LURE [id number] 03/22/2019 13:00:00 23:59:59 CLS Preadmit ALINE ALCANTARA APRN [facility] SLEEP HYPERSOMNIA,MONICA PECTED SLEEP APNEA,HYPOXEMIA [id number] 03/09/2019 10:35:00 23:59:59 CLS Outpatient ALINE ALCANTARA APRN [facility] RAD ALLERGIC RHINITIS,RHEUMATOID ARTHRITIS [id number] 05/26/2018 11:00:00 23:59:59 CLS Preadmit ALINE ALCANTARA APRN [facility] SLEEP G47.30 Suspecte d Sleep Apnea [id number] 03/19/2018 11:08:00 018 23:59:59 CLS Outpatient MIKEY SMALL TRANSCRIPTION SPECIALIST [facility] RAD FELL AND TWISTED ANKLE , PAIN RT ANKLE [id number] 03/03/2018 10:30:00 018 23:59:59 CLS Preadmit EDWARD CORBIN MD [facility] RAD SCREENING [id number] 02/23/2018 10:00:00 018 23:59:59 CLS Preadmit ALINE ALCANTARA APRN [facility] SLEEP G47.30 SUSPECTE D SLEEP APNEA [id number] 02/21/2018 09:45:00 018 23:59:59 CLS Preadmit ALINE ALCANTARA APRN [facility] RT DYSPNEA [id number] 02/04/2018 11:40:00 018 23:59:59 CLS Preadmit EDWARD CORBIN MD [facility] REHAB HIGH RISK FOR FALLS;GAI T TRAINING [id number] 01/28/2018 12:50:00 018 23:59:59 CLS Outpatient EDWARD CORBIN MD [facility] LAB R00.0 [id number] 01/17/2018 09:38:00 018 23:59:59 CLS Preadmit EDWARD CORBIN MD [facility] RAD M81.0 OSTEOPOROSIS [id number] 01/17/2018 09:30:00 018 23:59:59 CLS Preadmit EDWARD CORBIN MD [facility] RAD SCREENING [id number] 07/17/2017 10:22:00 017 11:31:00 DIS Emergency ANGELO MIRANDA TRANSCRIPTION SPECIALIST [facility] ER R HIP POP, AUDIBLE [id number] 05/27/2017 07:52:00 017 23:59:59 CLS Outpatient EDWARD CORBIN MD [facility] RAD COUGH R05 [id number] 02/11/2017 10:15:00 017 23:59:59 CLS Preadmit ALINE ALCANTARA APRN [facility] RAD DYSPNEA ON EXERTION,R09.02,PNEUMONIA LOWER LOBES [id number] 01/20/2017 06:40:00 017 09:20:00 DIS Outpatient ANGELICA HARLEY DO [facility] SDC HYPOXIA/DYSPNEA/RHEUMAT OID ARTHRITIS [id number] 01/19/2017 14:22:00 017 23:59:59 CLS Outpatient ANGELICA HARLEY DO [facility] PREOP HYPOXIA/DYSPNEA/RHEUMAT OID ARTHRITIS [id number] 11/11/2016 11:03:00 017 23:59:59 CLS Outpatient ALINE ALCANTARA APRN [facility] RAD PNEUMONIA OF ULICES TH LOWER LOBES [id number] 10/08/2016 11:02:00 017 23:59:59 CLS Outpatient ALINE ALCANTARA APRN [facility] LAB PNEUMONIA,DYSPN EA [id number] 09/22/2016 13:22:00 017 14:24:00 DIS Inpatient TOBI GUO MD [facility] 4TH PNEUMONIA [id number] 09/13/2016 11:33:00 016 14:34:00 DIS Inpatient TOBI GUO MD [facility] 4TH ACUTE URI [id number] 02/04/2016 08:39:00 016 23:59:59 CLS Outpatient PRATIMA PATEL DO [facility] SDC BLOOD IN STOOL [id number] 01/03/2016 05:32:00 016 23:59:59 CLS Outpatient PRATIMA PATEL DO [facility] PREOP BLOOD IN STOOL [id number] 10/02/2015 09:41:00 016 23:59:59 CLS Outpatient EDWARD CORBIN MD [facility] RAD POSSIBLE KIDNEY STONE [id number] 08/19/2015 15:32:00 015 23:59:59 CLS Outpatient EDWARD CORBIN MD [facility] RAD LUMBOSACRAL RADICULOPAT HY [id number] 03/21/2015 10:34:00 015 23:59:59 CLS Outpatient EDWARD CORBIN MD [facility] LAB HYPERLIPIDEMIA,DIARRHEA ,CKD [id number] 06/27/2014 13:17:00 014 23:59:59 CLS Outpatient EDWARD CORBIN MD [facility] SDC RA [id number] 02/15/2014 15:28:00 014 17:44:00 DIS Emergency ANGELO MIRANDA APRN [facility] ER ABD PAIN [id number] 02/06/2019 08:36:00 Document Registration [id number] 05/04/2018 09:21:00 Document Registration [id number] 04/02/2016 14:04:00 Document Registration [id number] 12/07/2014 10:51:00 Document Registration [id number] 06/23/2011 08:32:00 Document Registration [id number] 04/11/2011 12:02:00 Document Registration [id number] 02/23/2011 07:17:00 Document Registration [id number] 01/29/2011 09:21:00 Document Registration [id number] 02/27/2020 12:00:00 ACT Outpatient EDWARD CORBIN MD [facility] [id number] 01/17/2020 08:55:00 Document Registration [id number] 11/29/2019 10:00:00 Document Registration [id number] 06/02/2019 15:00:00 Document Registration [id number] 01/10/2019 09:40:00 Document Registration [id number] 10/27/2017 14:40:00 Document Registration [id number] 06/01/2017 08:20:00 Document Registration [id number] 05/25/2017 08:20:00 Document Registration [id number] 05/26/2017 09:09:00 Document Registration [id number] 06/02/2017 07:06:00 Document Registration [id number] 10/19/2014 12:54:00 10/19/2014 23:59: 59 CLS Outpatient RADHA MEREDITH JAMES R [id number] 10/02/2014 11:24:00 10/02/2014 23:59: 59 CLS Outpatient EDWARD CORBIN MD [id number] 09/05/2014 13:05:00 09/05/2014 23:59: 59 CLS Outpatient JAMES GARCIA APRN [id number] 09/05/2014 13:05:00 09/05/2014 23:59: 59 CLS Outpatient JAMES GARCIA APRN [id number] 08/09/2014 08:09:00 08/09/2014 23:59: 59 CLS Outpatient EDWARD CORBIN MD [id number] 06/13/2014 08:30:00 06/13/2014 23:59: 59 CLS Outpatient EDWARD CORBIN MD [id number] 06/13/2014 08:30:00 06/13/2014 23:59: 59 CLS Outpatient EDWARD CORBIN MD [id number] 05/29/2014 07:46:00 05/29/2014 23:59: 59 CLS Outpatient EDWARD CORBIN MD [id number] 05/11/2014 13:49:00 05/11/2014 23:59: 59 CLS Outpatient EDWARD CORBIN MD [id number] 09/18/2016 05:05:00 Document Registration
== END 2020-02-27 15:08 | disposition home or self-care (01) ==
LOC: EDUNIT# 12:50 → ER 12:52
DX: R51 Headache (principal); J45.909 Unspecified asthma, uncomplicated; I10 Essential (primary) hypertension; Z88.8 Allergy status to other drugs, medicaments and biological substances; Z88.0 Allergy status to penicillin; Z88.1 Allergy status to other antibiotic agents; Z88.5 Allergy status to narcotic agent; Z91.041 Radiographic dye allergy status; Z79.52 Long term (current) use of systemic steroids; Z82.49 Family history of ischemic heart disease and other diseases of the circulatory system; Z80.0 Family history of malignant neoplasm of digestive organs
CPT/HCPCS: 36415; 70450; 71045; 80053; 85025

== ENCOUNTER 2020-03-13 05:29 | Outpatient (RCR) | payer MEDICARE ==
[~2020-03-13] VITALS: Ht 165.1 cm; Wt 80.9 kg
[~2020-03-13 05:29] MED LIST changes: +ASPI-586 PO; +ATOR40TA PO; +DULO60CA59 PO; +FLUT1BLS IH; +FLUT1BLS3 IH; +GABA800T10 PO; +LEFL20TA18 PO; +METO50TA7 PO; +ONDA8TAB6 PO; +PRD20T PO; +UMEC62.5 IH
== END 2020-03-13 12:27 | disposition home or self-care (01) ==
LOC: PREOP 05:29
PROVIDERS: ATTEND Surgery
DX: Z01.818 Encounter for other preprocedural examination (principal); Z11.59 Encounter for screening for other viral diseases
CPT/HCPCS: 87635

== ENCOUNTER 2020-03-15 06:04 | Day surgery (SDC) | payer MEDICARE ==
[~2020-03-15] VITALS: Ht 165.1 cm; Wt 80.9 kg
[2020-03-15] VITALS (10 sets, daily range): BP systolic 110–150; BP diastolic 76–111
--- OUTSIDE RECORDS SUMMARY | 2020-03-15 06:09 | XMS REPORT | Encounter Summary ---
Author Author [facility] Organization [facility] Address Unknown Phone Unavailable Care Team Providers Care Clockmaker Apprentice Name Role Phone PCP Unavailable Encounter Details Care Team Description Date Type Department Manolo Lewis MD [address] [place] [address] [phone] Arthropathy 02/09/2018 [facility] [address] [place] [address] Social History Date Tobacco Use Types Packs/Day [...] acute osseous abnormalities demonstr ated. [place] Site: [facility]arr[place] Performed At Patient: BRYN RODRIGUEZ Sex#: Raven # 1970 Hernandez#: [id number] Location: [facility] Procedure Requested: [id number] XR HAND MIN 3 VIEWS EACH BILAT [...] BRYN RODRIGUEZ Sex#: F # 1970 Hernandez#: [id number] Location: [facility] XRAY Procedure Requested: [id number] XR HAND MIN 3 VIEWS EACH BILAT [...] No acute osseous abnormalities demonstrated. Reading Site: [facility] [place] Performing Organization Address City/State/Zipcode Ph one Number [place] documented in this encounter Visit Diagnoses Diagnosis Arthropathy Unspecified arthropathy, site unspecifi ed documented in this encounter
--- OUTSIDE RECORDS SUMMARY | 2020-03-15 06:09 | XMS REPORT | Encounter Summary ---
Author Author [facility] Address Unknown Phone Unavailable Care Team Providers Care Counselor Marriage And Family Name Role Phone PCP Unavailable Encounter Details Care Team Description Date Type Department Manolo Lewis MD [address] [place] [address] [phone] Arthropathy 02/09/2018 [facility] [address] [place] [address] Social History Date Tobacco Use Types Packs/Day [...] No evidence of acute fracture. Reading Site: [facility] ital Narrative Performed At Patient: BRYN RODRIGUEZ Sex#: Raven # 1970 Hernandez#: [id number] Location: [facility] XRAY Procedure Requested: [id number] XR FOOT 2 VIEWS BILAT Reason for [...] BRYN RODRIGUEZ Sex#: F # 1970 Hernandez#: [id number] Location: [facility] XRAY Procedure Requested: [id number] XR FOOT 2 VIEWS BILAT Reason for [...] No evidence of acute fracture. Reading Site: [facility] Performing Organization Address City/State/Zipcode Ph one Number [facility] documented in this encounter Visit Diagnoses Diagnosis Arthropathy Unspecified arthropathy, site unspecifi ed documented in this encounter
--- OUTSIDE RECORDS SUMMARY | 2020-03-15 06:09 | XMS REPORT | Clinical Summary ---
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
--- OUTSIDE RECORDS SUMMARY | 2020-03-15 06:09 | XMS REPORT | Encounter Summary ---
Author Author [facility] Address Unknown Phone Unavailable Care Team Providers Care Plastics Spreading Machine Operator Name Role Phone PCP Unavailable Encounter Details Care Team Description Date Type Department Manolo Lewis MD [address] [place] [address] [phone] Arthropathy 02/09/2018 [facility] [address] [place] [address] Social History Date Tobacco Use Types Packs/Day [...] oint body is not excluded. Reading Site: [facility] ital Narrative Performed At Patient: MICHAELBRYN Sex#: F # 1970 Hernandez#: [id number] Location: [facility] XRAY Procedure Requested: [id number] XR KNEE 3 VIEWS EACH BILAT Reason [...] BRYN RODRIGUEZ Sex#: F # 1970 Hernandez#: [id number] Location: [facility] XRAY Procedure Requested: [id number] XR KNEE 3 VIEWS EACH BILAT Reason [...] joint body is not excluded. Reading Site: [facility] Performing Organization Address City/State/Zipcode Ph one Number YEN[place] documented in this encounter Visit Diagnoses Diagnosis Arthropathy Unspecified arthropathy, site unspecifi ed documented in this encounter
--- OUTSIDE RECORDS SUMMARY | 2020-03-15 06:09 | XMS REPORT | Encounter Summary ---
Author Author [facility] Organization [facility] Address Unknown Phone Unavailable Care Team Providers Care Peoplesoft Hcm Consultant Name Role Phone PCP Unavailable Encounter Details Care Team Description Date Type Department Manolo Lewis MD [address] [place] [address] [phone] Arthropathy (Primary Dx) 02/09/2018 [place] [address] Social History Date Tobacco Use Types Packs/Day [...] BRYN RODRIGUEZ Sex#: F # 1970 Hernandez#: [id number] [facility] Procedure Requested: [id number] XR LUMBA R SPINE 2 OR 3 VIEWS Reason for Exam: Arthropathy Exam Ordered: 02/09/2018 11 44 Exam Date/Time: 02/09/2018 121 7 Begin exam date/time: 02/09/2018 121 5 Dictation location: [place] Exam Date: 02/09/2018 12:17 PM XR LUMBAR SPINE 2 OR 3 VIEWS Indication: Arthropathy FINDINGS and Procedure Note Interface, Rad Results In - 02/09/2018 1:34 PM CDT Patient: BRYN RODRIGUEZ Sex#: F # 1970 Hernandez#: [id number] Location: [facility] XRAY Procedure Requested: [id number] XR LUMBAR SPINE 2 OR 3 VIEWS Reason for Exam: Arthropathy Exam Ordered: 02/09/2018 1144 Exam Date/Time: 02/09/2018 1217 Begin exam date/time: 02/09/2018 1215 Dictation location: [place] Exam Date: 02/09/2018 12:17 PM XR LUMBAR [...] oint body is not excluded. Reading Site: [facility] ital Narrative Performed At Patient: BRYN RODRIGUEZ Sex#: F # 1970 Hernandez#: [id number] Location: [facility] XRAY Procedure Requested: [id number] XR KNEE 3 VIEWS EACH BILAT Reason [...] BRYN RODRIGUEZ Sex#: F # 1970 Hernandez#: [id number] Location: [facility] XRAY Procedure Requested: [id number] XR KNEE 3 VIEWS EACH BILAT Reason [...] body is not excluded. Reading Site: [facility] Organization Address City/State/Zipcode Ph one Number YEN[place] * XR Hand min 3 views each bilat (02/09/2018 12:16 PM CDT) Specimen Impressions Performed At No erosions demonstrated. [place] Mild right fifth DIP joint space narrow ing. Minimal DJD at the right first CMC joint. No acute osseous abnormalities demonstr ated. Reading Site: [facility] [place] Narrative Performed At Patient: BRYN RODRIGUEZ Sex#: F # 1970 Hernandez#: [id number] Location: [facility] [employer] Procedure Requested: [id number] XR HAND MIN 3 VIEWS EACH BILAT [...] BRYN RODRIGUEZ Sex#: F # 1970 Hernandez#: [id number] Location: [facility] [employer] Procedure Requested: [id number] XR HAND MIN 3 VIEWS EACH BILAT [...] No acute osseous abnormalities demonstrated. Reading Site: [facility] Performing Organization Address City/State/Zipcode Ph one Number [...] No evidence of acute fracture. Reading Site: [facility] Narrative Performed At Patient: BRYN RODRIGUEZ Sex#: F # 1970 Hernandez#: [id number] Location: [facility] XRAY Procedure Requested: [id number] XR FOOT 2 VIEWS BILAT Reason for [...] BRYN RODRIGUEZ Sex#: F # 1970 Hernandez#: [id number] Location: [facility] XRAY Procedure Requested: [id number] XR FOOT 2 VIEWS BILAT Reason for [...] acute fracture. Reading Site: [facility] Performing Organization Address City/State/Zipcode Ph one [place] documented in this encounter Visit Diagnoses Diagnosis Arthropathy Unspecified arthropathy, site unspecifi ed documented in this encounter
--- OUTSIDE RECORDS SUMMARY | 2020-03-15 06:09 | XMS REPORT | Encounter Summary ---
Author Author [facility] Organization [facility] Address Unknown Phone Unavailable Care Team Providers Care Technical Clerk Name Role Phone PCP Unavailable Encounter Details Care Team Description Date Type Department Manolo Lewis MD [address] [place] [address] [phone] Arthropathy 02/09/2018 [facility] [address] [place] [address] Social History Date Tobacco Use Types Packs/Day [...] BRYN RODRIGUEZ Sex#: F # 1970 Hernandez#: [id number] Location: [facility] XRAY Procedure Requested: [id number] XR LUMBA R SPINE 2 OR 3 VIEWS Reason for Exam: Arthropathy Exam Ordered: 02/09/2018 11 44 Exam Date/Time: 02/09/2018 121 7 Begin exam date/time: 02/09/2018 121 5 Dictation location: [place] Exam Date: 02/09/2018 12:17 PM XR LUMBAR SPINE 2 OR 3 VIEWS Indication: Arthropathy FINDINGS and Procedure Note Interface, Rad Results In - 02/09/2018 1:34 PM CDT Patient: BRYN RODRIGUEZ Sex#: F # 1970 Hernandez#: [id number] Location: [facility] XRAY Procedure Requested: [id number] XR LUMBAR SPINE 2 OR 3 VIEWS Reason for Exam: Arthropathy Exam Ordered: 02/09/2018 1144 Exam Date/Time: 02/09/2018 1217 Begin exam date/time: 02/09/2018 1215 Dictation location: [place] Exam Date: 02/09/2018 12:17 PM XR LUMBAR [...]
--- OUTSIDE RECORDS SUMMARY | 2020-03-15 06:10 | XMS REPORT ---
Author Author [facility] family day care provider [facility] [place] [facility] [place] Address [address] [address] Care Team Providers Care Talent Management Manager Name Role Phone EMERALD, EDWARD Unavailable Unavailable EMERALD, EDWARD Unavailable KAREN FLORENTINO Unavailable EMERALD, EDWARD N Unavailable ALVA SANTIAGO Unavailable Unavailable AMAN SCHAEFER Unavailable Unavailable EMERALD, EDWARD Unavailable ABBIE GIORDANO Unavailable EMERALD, EDWARD Unavailable TOBI GUO Unavailable EMERALD, EDWARD Unavailable TOBI GUO Unavailable EMERALD, EDWARD Unavailable EMERALD, DEWARD Unavailable EMERALD, EDWARD Unavailable EMERALD, EDWARD Unavailable [...] EDWARD Unavailable EMERALD, EDWARD Unavailable ALINE ALCANTARA CUT ROLL MACHINE OPERATOR Unavailable Unavailable EMERALD, EDWARD Unavailable TOBI GUO Unavailable EMERALD, EDWARD Unavailable EMERALD, EDWARD Unavailable ESTRELLA, GUS Unavailable ESTRELLA, GUS Unavailable MIKEY SMALL Unavailable EMERALD, EDWARD Unavailable EMERALD, EDWARD Unavailable EMERALD, EDWARD Unavailable PRATIMA PATEL DO Unavailable Unavailable ALINE ALCANTARA APRN Unavailable Unavailable TOBI GUO MD Unavailable Unavailable TOBI GUO MD R Unavailable Unavailable EMERALD EDWARD JACOBO Unavailable Unavailable EMERALD YOGESH JACOBOY N Unavailable [...] HARLEY DO Unavailable Unavailable EMERALD , EDWARD Panda Unavailable Unavailable MIKEY SMALL CUT ROLL MACHINE OPERATOR Unavailable Unavailable ANGELO MIRANDA CUT ROLL MACHINE OPERATOR Unavailable Unavailable PRATIMA PATEL DO Unavailable Unavailable SARI JACOBO, TOBI R Unavailable Unavailable SARI JACOBO, TOBI R Unavailable Unavailable EMERALD , EDWARD N Unavailable Unavailable Migration, Doctor Unavailable Unavailable GARCIA, JAMES Unavailable EMERALD, EDWARD Unavailable EMERALD, EDWARD Unavailable EMERALD, EDWARD Unavailable EMERALD, EDWARD Unavailable EMERALD, EDWARD Unavailable EMERALD, EDWARD Unavailable EMERALD, EDWARD N Unavailable Unavailable EMERALD, EDWARD Unavailable EMERALD, EDWARD Unavailable EMERALD, EDWARD N PCP EMERALD, EDWARD Unavailable EMERALD, EDWARD Unavailable GARCIA, JAMES Unavailable CLAUDIO CARMONANDA Unavailable EMERALD, EDWARD Unavailable EMERALD, EDWARD Unavailable EMERALD, EDWARD Unavailable EMERALD, EDWARD Unavailable Unavailable Unavailable EMERALD, EDWARD Unavailable EMERALD, EDWARD Unavailable EMERALD, EDWARD Unavailable EMERALD, EDWARD Unavailable RADHA JAMES Unavailable ANGELO MIRANDA APRN Unavailable Unavailable Unavailable Unavailable Unavailable Unavailable Unavailable [...] as needed 4h January, 30 days Active no Incruse no 62.5 [...] morning and evening 2 times per day [facility] Sep, Active 7 actuat umeclidiniu Anticholine [...] MIRANDA Not A vailable (9 sources.) pain, (14861) epigastric Translations: [ ABDOMINAL PAIN, UNSPECIFIED SITE, ABDOMINAL PAIN, RIGHT UPPER QUADRANT, ABDOMINAL PAIN, UNSPECIFIED SITE, ABDOMINAL PAIN, RIGHT UPPER QUADRANT] Residual Acquired Episodic Active ANGELO MIRANDA Not Availab le codes; absence of (36604) unclassified both cervix (2 sources.) and uterus Residual Acquired Episodic Active ANGELO MIRANDA [facility] Via codes; absence of [place] unclassified other Hospital - (1 source.) specified [place] parts of (55360) digestive tract Chronic Acute Chronic Active [facility] obstructive exacerbation [facility] [facility] pulmonary of chronic of [facility] disease and obstructive [place] (60582) bronchiectasis airways (11 sources.) disease Translations: [ COPD exacerbation, - COPD exacerbation J44.1] Other upper Allergic Chronic Active ALINE [facility] Via respiratory rhinitis, MARICRUZ [facility] disease (1 unspecified Hospital - source.) [place] (53984) Chronic Bronchitis, no information Active ALINE [facility] V ia obstructive not specified MARICRUZSIENA Hart pulmonary as acute or Hospital - disease and chronic [place] bronchiectasis Translations: (66550) (2 sources.) [ CHRONIC OBSTRUCTIVE PULMONARY DISEASE, U] Other nervous Carpal tunnel Chronic Active TOBI GUO Co mmunity system syndrome, [address] [facility] disorders (20 right upper of [place] sources.) limb [place] (82964) Translations: [ - Carpal tunnel syndrome, right upper limb G56.01, - Carpal tunnel syndrome, right upper limb G56.01] Other Chronic Episodic Active [facility] gastrointestin constipation 46463 [facility] al disorders Translations: of [facility] (20 sources.) [ Chronic [place] (25131) constipation, Chronic constipation] Unclassified Chronic pain Episodic Active ANGELO MIRANDA Not Available (23 sources.) syndrome (63308) Translations: [ Chronic pain syndrome, Chronic pain syndrome, ACQUIRED ABSENCE OF OTHER SPECIFIED PART, ACQUIRED ABSENCE OF BOTH CERVIX AND UTER, FAMILY HISTORY OF MALIGNANT NEOPLASM OF , FAMILY HX OF ISCHEM HEART DIS AND OTH DI] Other nervous Chronic pain Chronic Active EDWARD EMERALD C ommunity system syndrome 19934 [facility] disorders (5 Translations: of [facility] sources.) [ Chronic pain [place] (09012) syndrome] Other nervous Chronic pain Chronic Active EDWARD EMERALD C ommunity system syndrome 40065 [facility] disorders (20 Translations: of [facility] sources.) [ - Chronic [place] (89857) pain syndrome G89.4, - Chronic pain syndrome G89.4] Other Constipation, Episodic Active [facility] ity gastrointestin unspecified 61134 [facility] al disorders Translations: of [facility] (20 sources.) [ - Chronic [place] (14872) constipation K59.00, - Chronic constipation K59.00] Other Constipation, Episodic Active ANGELO MIRANDA Not Av ailable gastrointestin unspecified (81289) al disorders (5 sources.) Other lower Cough 02-29-2020 - Episodic Active [facility] respiratory Translations: [address] [place] [address] disease (20 [ - Cough R05, of [place] sources.) - Persistent [place] (55536) cough for 3 weeks or longer R05, - Cough R05, - Persistent cough for 3 weeks or longer R05, - Cough, persistent R05] Allergic Diarrhea 02-29-2020 - Episodic Active ANGELO MIRANDA No t Available reactions (20 Translations: (39132) sources.) [ - Diarrhea 787.91, - Diarrhea 787.91, DIARRHEA, ALLERGY STATUS TO OTH DRUG/MEDS/BIOL SUB, ALLERGY STATUS TO PENICILLIN, ALLERGY STATUS TO OTHER ANTIBIOTIC AGENT, ALLERGY STATUS TO NARCOTIC AGENT STATUS, RADIOGRAPHIC DYE ALLERGY STATUS] Other Diarrhea, Episodic Active [facility] gastrointestin unspecified [address] [place] [address] al disorders Translations: of [facility] (20 sources.) [ - Diarrhea, [place] (15533) unspecified type R19.7, - Bloody diarrhea R19.7, - Diarrhea, unspecified type R19.7, - Bloody diarrhea R19.7] Other Disorder of Episodic Active [facility] y gastrointestin colon [address] [place] [address] al disorders Translations: of [facility] (20 sources.) [ Colon wall [place] (58113) thickening, Colon wall thickening] Diverticulosis Diverticulosis Chronic Active PETER MIRANDA Not Available and of colon (81729) diverticulitis (without (5 sources.) mention of hemorrhage) Other lower Dyspnea, Episodic Active [facility] , Not Lena ilable respiratory unspecified (94450) disease (7 sources.) Residual Family history 02-29-2020 - Episodic Active PETER BAT ES Not Available codes; of ischemic (62155) unclassified heart disease (4 sources.) and other diseases of the circulatory system Residual Family history 02-29-2020 - Episodic Active PETER BAT ES Not Available codes; of malignant (14110) unclassified neoplasm of (4 sources.) digestive organs Headache; Headache 02-29-2020 - Episodic Active ANGELO MIRANDA , [facility] Via including VIRI Beckfordi migraine (2 Hospital - sources.) [place] (61207) Other injuries History of Episodic Active [facility] unity and conditions falling [address] [place] [address] due to Translations: of [facility] external [ - At high [place] (44455) causes (20 risk for falls sources.) Z91.81, - At high risk for falls Z91.81] Other diseases Hypertrophy of Episodic Active [facility] of bladder and bladder [address] [place] [address] urethra (20 Translations: of [place] sources.) [ Bladder wall [place] (65782) thickening, Bladder wall thickening] Other diseases Hypertrophy of Chronic Active [facility] Community of bladder and bladder [address] [place] [address] urethra (5 Translations: of [place] sources.) [ Bladder wall [place] (31785) thickening] Fluid and Hypokalemia Episodic Active CIERA Not Availa ble electrolyte Translations: MD SERINA (06644) disorders (8 [ DEHYDRATION] sources.) Other lower Hypoxemia Episodic Active TOBI GUO Communit y respiratory Translations: [facility] [facility] disease (20 [ - Hypoxia of [place] sources.) R09.02, - [place] (07214) Hypoxia R09.02] Other ocean transportation intermediary 02-29-2020 - Episodic Active ANGELO MIRANDA , [facility] Via aftercare (2 (current) use CUT ROLL MACHINE OPERATOR [place] sources.) of [facility] Hospital - steroids [place] (75171) Nausea and Nausea with Episodic Active CIERA Not Avail able vomiting (20 vomiting MD SERINA (40356) sources.) Translations: [ VOMITING ALONE, - Nausea and vomiting, intractability of vomiting not specified, unspecified vomiting type R11.2] Other nervous Other chronic Chronic Active TOBI GUO Co mmunity system pain [id number] [place] [address] Center disorders (20 Translations: of [facility] sources.) [ - Other [place] (24439) chronic pain G89.29, - Other chronic pain G89.29] Other Other Episodic Active EDWARDMABEL CORBIN Not Avail able gastrointestin MD rohan (04132) al disorders (5 sources.) Other lower Other forms of Episodic Active ALINE Not A vailable respiratory dyspnea MARICRUZ (56317) disease (21 sources.) Other Other specific Chronic Active ANGELO MIRANDA Not A vailable non-traumatic joint (21442) joint derangements disorders (7 of right hip, sources.) not elsewhere classified Other liver Other Chronic Active ANGELO MIRANDA Not Avail able diseases (5 specified (91621) sources.) disorders of liver Other Pain in right Episodic Active ANGELO MIRANDA Not Av ailable non-traumatic hip (79297) joint disorders (7 sources.) Other Pain in right Episodic Active EDWARD EMERALD Comm unity non-traumatic knee 38854 [facility] joint Translations: of [facility] disorders (5 [ - Acute pain [place] (31608) sources.) of right knee M25.561] Deficiency and Pernicious Episodic Active TOBI GUO Comm unity other anemia anemia 44261 [facility] (20 sources.) Translations: of [place] [ Pernicious [place] (14519) anemia, Pernicious anemia] Other lower Shortness of Episodic Active TOBI GUO Commu nity respiratory breath 18559 [facility] Center disease (20 Translations: of [place] sources.) [ - Shortness [place] (34575) of breath R06.02, - Shortness of breath R06.02, - Shortness of breath at rest R06.02] Sprains and Sprain of Episodic Active TOBI GAULT Communit y strains ([address] [place] [address] Center sources.) ligament of of [facility] right ankle, [place] (26628) subsequent encounter Translations: [ - High ankle sprain of right lower extremity, subsequent encounter S93.431D, - Sprain of right ankle, unspecified ligament, subsequent encounter S93.401D, - High ankle sprain of right lower extremity, subsequent encounter S93.431D, - Sprain of right ankle, unspecified ligament, subsequent encounter S93.401D] Other lower Tachypnea, not Episodic Active EDWARD EMERALD C ommunity respiratory elsewhere [address] [place] [address] Center disease (7 classified of [facility] sources.) Translations: [place] () [ - Tachypnea on examination R06.82] Gastritis and Unspecified Episodic Active PETER MIRANDA Not Available duodenitis (5 gastritis and (57953) sources.) gastroduodenit is, without mention of hemorrhage Other injuries Unspecified Episodic Active TOBI GAULT Com munity and conditions injury of [address] [place] [address] Center due to right ankle, [facility] external initial [place] () causes (20 encounter sources.) Translations: [ - Injury of right ankle, initial encounter S99.911A, - Injury of right ankle, initial encounter S99.911A] Otitis media Unspecified Episodic Active EDWARD EMERALD Com munity and related nonsuppurative [address] [place], [place] [address]e r conditions (5 otitis media, of [facility] sources.) right ear [place] (81685) Translations: [ - Right otitis media with effusion H65.91] Past or Other Problems Problem Normalized Date Last Normalized Normalized Provider Fa cility Classification Problem(s) Recorded Problem Problem Sta tus Duration Other lower Cough Episodic Completed KIARA WICHO Not Avai lable respiratory (54264) disease (1 source.) Residual Hypersomnia, no information no information ALINE [facility] Via codes; unspecified MARICRUZ Hart unclassified Hospital - (1 source.) [place] (16007) External cause Other external no information no information LEENA OTHY Not Available codes: cause status MD SERINA (06672) Unspecified (2 Translations: sources.) [ OTHER ACTIVITY] Unclassified Overexertion no information no information no name no information (6 sources.) from prolonged static or awkward postures, initial encounter External cause Overexertion no information no information TIMOT HY Not Available codes: from strenuous MD SERINA (33844) Natural/enviro movement or nment (9 load, initial sources.) encounter Translations: [ EXCESSIVE HEAT: WEATHER, OVEREXERTION FROM PROLONGED STATIC OR AW] NEGATED Sleep apnea, no information no information no name [facility] Via no unspecified [place] information (3 Hospital - sources.) [place] (78164) Other injuries Unspecified Episodic Completed CIERA Not A vailable and conditions effects of MD SERINA (02014) due to heat and light external causes (1 source.) Procedures Procedure Normalized Procedure Procedure Result Performer Facility Date 05-29-2014 Assay of magnesium no information no name [facility] (54033) 05-29-2014 Assay of thyroid no information no name [facility] stimulating hormone [facility] (11412) 06-13-2014 Basic metabolic panel no information no name [facility] calcium total [facility] (41755) 05-29-2014 Blood count complete no information no name Co [facility] auto&auto difrntl wbc [facility] (85877) 06-13-2014 Collection venous no information no name [facility] blood venipuncture [facility] (55155) 05-29-2014 Collection venous no information no name [facility] blood venipuncture [facility] (24348) 05-29-2014 Comprehensive no information no name [facility] metabolic panel [facility] (40417) 08-09-2014 Culture bacterial no information no name [facility] quanttative colony [facility] (44625) 05-29-2014 Cyanocobalamin vitamin no information no name [facility] b-12 [facility] (03087) 01-28-2018 Ecg routine ecg no information no name [facility] w/least 12 [facility] w/o i&r [place] (63938) 05-11-2014 Ecg routine ecg no information no name [facility] w/least 12 lds trcg [facility] w/o i&r [place] (54756) 01-28-2018 EKG, TRACING no information no name [facility] (IN-HOUSE) [facility] (68563) 01-12-2018 Fall risk assessment no information no name [facility] doc d [facility] (63476) 01-12-2018 FQHC visit, IPPE or no information no name [facility] AWV [facility] (73480) 10-19-2014 Iaadiadoo influenza no information no name Com [facility] (33554) 09-05-2014 Iaadiadoo influenza no information no name [facility] (93262) 05-29-2014 Lipid panel no information no name [facility] ealth [facility] (12151) 03-04-2018 Methylprednisolone 80 no information no name [facility] MG inj [facility] (59241) 01-31-2018 Methylprednisolone 80 no information no name [facility] MG inj [facility] (89637) 06-01-2018 Methylprednisolone no information no name [facility] injection [facility] (72765) 10-19-2014 Noninvasive ear/pulse no information no name [facility] oximetry single deter [facility] (06964) 09-05-2014 Noninvasive ear/pulse no information no name [facility] oximetry single deter [facility] (95826) 08-09-2014 Noninvasive ear/pulse no information no name [facility] oximetry single deter [facility] (41960) 01-12-2018 Pt tobacco screen rcvd no information no name [facility] tlk [facility] (49024) 03-04-2018 Radiologic exam chest no information no name [facility] 2 views [facility] (45799) 11-28-2014 Swallowing funcj no information no name [facility] ity Health w/cineradiograpy/vidra [facility] (82724) 06-01-2018 Therapeutic no information no name [facility] prophylactic/dx [facility] subq/[facility] (11146) 03-04-2018 Therapeutic no information no name [facility] prophylactic/dx [facility] injection subq/[facility] (00157) 01-31-2018 Therapeutic no information no name [facility] prophylactic/dx [facility] injection subq/im [place] (38478) 08-09-2014 Therapeutic no information no name [facility] prophylactic/dx [facility] injection subq/[facility] (77528) 06-13-2014 Therapeutic no information no name [facility] prophylactic/dx [facility] injection subq/im [place] (25943) 04-14-2018 Urnls dip stick/tablet no information no name [facility] rgnt auto w/o Center [facility] (23194) 08-09-2014 Urnls dip stick/tablet no information no name [facility] rgnt auto w/o Center [facility] (98694) 08-09-2014 Vitamin b12 injection no information no name [facility] (92528) 06-13-2014 Vitamin b12 injection no information no name [facility] (01889) Immunizations Normalized Immunization Date Notes Care Provider Facili ty Immunization DEPO MEDROL 80 MG/ML 03-04-2018 no information GUS ESTRELLA [phone] [facility] (96028) DEPO MEDROL 80 MG/ML 01-31-2018 - no information EDWARD COBRIN 26598 [facility] Translations: [ DEPO 01-31-2018 [facility] MEDROL 80 MG/ML] [place] (85857) PHENERGAN 50MG/ML 03-24-2019 no information no name [facility] (61703) SOLUMEDROL (UP TO 06-01-2018 no information TOBI GUO 67597 [facility] 125 MG) [facility] (11599) tetanus toxoid, 01-12-2018 - no information EDWARD CORBIN 40668 [facility] reduced diphtheria 01-12-2018 [facility] and [place] (91347) acellular pertussis vaccine, adsorbed Translations: [ TDAP (BOOSTRIX)] SINGLE IMMUNIZATION 01-12-2018 - no information EDWARD CORBIN 6 6762 [facility] ADMIN Translations: 01-12-2018 [facility] t [ TDAP (BOOSTRIX)] [place] () Results Test Name Value Interpretation Reference Range Date Time Fa cility (Normalized) (Normalized) (Medline Reference) ua long dip (in house) on null Glucose Test Negative (no code) [facility] (U) [facility] (15544) Protein mass Negative (no code) 0 - 20 mg/dL Community ealth conc (U) [facility] (38790) UA LONG DIP (IN 01/06 (no code) [facility] HOUSE[facility] (77348) UA LONG DIP (IN slightly cloudy (no code) [facility]) [facility] (46191) UA LONG DIP (IN yellow (no code) [facility] HOUSE) [facility] (71454) UA LONG DIP (IN no (no code) [facility]) [facility] (11014) UA LONG DIP (IN 712149 (no code) [facility] HOUSE) [facility] (46655) UA LONG DIP (IN 5.0 (no code) [facility] HOUSE) [facility] (36691) UA LONG DIP (IN >=1.030 (no code) [facility] HOUSE) [facility] (82240) UA LONG DIP (IN 0.2 (no code) [facility] HOUSE) [facility] (54473) UA LONG DIP (IN Trace (no code) [facility] HOUSE) [facility] (60235) tsh on null Thyroid 0.88 m[IU]/L (no code) 0.4 - 4 m[IU]/L [facility] stimulating Center of hormone (TSH) [facility] (25827) lactate (outside order) on null NEGATED: no information (no code) [facility] Highlighted row Center of Lactate [facility] (10016) cmp on null Alanine no information (no code) [facility] amin[facility] Center of (ALT) [facility] (56932) Albumin no information (no code) [facility] (59432) Albumin/Globulin no information (no code) [facility] Ratio [facility] (15919) Alkaline no information (no code) [facility] phosphatase Center (ALP) [facility] (17476) Aspartate no information (no code) [facility] amin[facility] (AST) [facility] (87165) BUN/Creatinine no information (no code) Count [facility]cludes [facility] Ratio [facility] (09625) Calcium no information (no code) [facility] (51932) Chloride no information (no code) [facility] (72515) CO2 no information (no code) [facility] (71501) Creatinine no information (no code) [facility] (94509) eGFR (black) no information (no code) Count [facility] (35859) eGFR (non-black) no information (no code) [facility] (08236) Globulin no information (no code) [facility] (24693) Glucose no information (no code) Count [facility] (12288) Potassium no information (no code) [facility] (69068) Protein no information (no code) Count [facility] (58686) Urea nitrogen no information (no code) Count [facility] (67077) Urine, bilirubin no information (no code) [facility] (87030) cbc on null Basophils no information (no code) [facility] (89281) Basophils/100 no information (no code) [facility] leukocytes [facility] (14507) Eosinophils no information (no code) [facility] (34410) Eosinophils/100 no information (no code) [facility] leukocytes [facility] (27887) Erythrocytes no information (no code) [facility] (RBC) [facility] (19809) Hematocrit (HCT) no information (no code) [facility] (38779) Hemoglobin (HGB) no information (no code) [facility] (71921) Lymphocytes no information (no code) [facility] (89952) Lymphocytes/100 no information (no code) Count Includes [facility] leukocytes [facility] (23741) MCH no information (no code) Count [facility] (65093) MCHC no information (no code) [facility] (77354) MCV no information (no code) [facility] (23610) Monocytes no information (no code) Count [facility] (84927) Neutrophils no information (no code) [facility] (37941) Neutrophils band no information (no code) [facility] (24249) Nucleated no information (no code) Count [facility] erythrocytes [facility] (73140) Platelet mean no information (no code) [facility] volume (PMV) [facility] (31331) Platelets no information (no code) Count [facility]cludes [facility] (76010) RDW-CA no information (no code) [facility] (23365) WBC (Leukocytes) no information (no code) [facility] (99155) laboratory on 2020-02-27 Albumin 4.4 g/dL (NEG) 3.4 - 5.4 g/dL 02-27-2020 PENDING LOCATION [Mass/Vol] 09:-399 [facility] (13277) ALP [Catalytic 81 U/L (NEG) 44 - 147 U/L 02-27-2020 PEND ING LOCATION activity/Vol] 09:-399 [facility] (64832) ALT [Catalytic 43 U/L (NEG) 4 - 40 U/L 02-27-2020 PENDIN G LOCATION activity/Vol] 09:-399 [facility] (34236) Anion gap 12 mmol/L (NEG) 3 - 11 mmol/L 02-27-2020 PENDING LOCATION [Moles/Vol] 09:05-0400 [facility] (89212) AST [Catalytic 30 U/L (NEG) 10 - 34 U/L 02-27-2020 [facility] LOCATION activity/Vol] 09:05-0400 [facility] (85653) Basophils (Bld) 0.0 10*3/uL (NEG) 0 - 0.3 10*3/uL 02-27-2020 PENDING LOCATION [#/Vol] 09:05-0400 [facility] (69443) Basophils/100 0 % (NEG) 0.5 - 1 % 02-27-2020 PENDING LOCATION WBC (Bld) 09: [facility] (81855) Bilirubin 0.3 mg/dL (NEG) 0.1 - 1.2 mg/dL 02-27-2020 [facility] LOCATION [Mass/Vol] 09:05-0400 [facility] (63914) Calcium 9.7 mg/dL (NEG) 8.5 - 10.2 mg/dL 02-27-2020 [facility] LOCATION [Mass/Vol] 09:05-0 [facility] (26392) Calcium 9.4 mg/dL (NEG) 8.5 - 10.2 mg/dL 02-27-2020 [facility] LOCATION [Mass/Vol] 09:05-0400 [facility] (80720) Chloride 110 mmol/L (H) 95 - 106 mmol/L 02-27-2020 [facility] LOCATION [Moles/Vol] 09:05-0400 [facility] (88872) CO2 [Moles/Vol] 18 mmol/L (L) 23 - 29 mmol/L 02-27-2020 P ENDING LOCATION 09: [facility] (69852) Creatinine 0.92 mg/dL (NEG) 02-27-2020 PENDING LOCATI ON [Mass/Vol] 09:05-0400 [facility] (26433) Creatinine and > (no code) 02-27-2020 PENDING LOC ATION Glomerular 09:-0400 [facility] (79692) filtration rate.predicted panel - Serum, Plasma or Blood Eosinophils 0.1 10*3/uL (NEG) 0.05 - 0.5 02-27-2020 PENDING LOCATION (Bld) [#/Vol] 10*3/uL 09:05-0400 [facility] (67451) Eosinophils/100 2 % (NEG) 1 - 4 % 02-27-2020 [facility] LOCATION WBC (Bld) 09:05-0400 [facility] (16064) Erythrocyte 13.1 % (NEG) 11.6 - 14.6 % 02-27-2020 [facility] LOCATION distribution 09:05-0400 [facility] (78377) width (RBC) [Ratio] Glucose 96 mg/dL (NEG) 60 - 125 mg/dL 02-27-2020 PENDING LOCATION [Mass/Vol] 09:05-0400 [facility] (46069) Hematocrit (Bld) 44 % (NEG) 36.1 - 50.3 % 02-27-2020 P ENDING LOCATION [Volume 09:05-0400 [facility] (49001) fraction] Hemoglobin (Bld) 14.4 g/dL (NEG) 12.1 - 17.2 g/dL 02-27-2020 PENDING LOCATION [Mass/Vol] 09:05-0400 [facility] (14654) Lymphocytes 1.8 10*3/uL (NEG) 0.9 - 2.9 02-27-2020 PENDING LOCATION (Bld) [#/Vol] 10*3/uL 09:05-0400 [facility] (51971) Lymphocytes/100 30 % (NEG) 20 - 40 % 02-27-2020 [facility] LOCATION WBC (Bld) 09:05-0400 [facility] (45019) MCH (RBC) 28 pg (NEG) 27 - 31 pg 02-27-2020 PENDING LOC ATION [Entitic mass] 09:05-0400 [facility] (80361) MCHC (RBC) 33 g/dL (NEG) 32 - 36 g/dL 02-27-2020 PENDING LOCATION [Mass/Vol] 09:05-0400 [facility] (37552) MCV (RBC) 86 (NEG) 02-27-2020 PENDING LOCATI ON [Entitic vol] 09:05-0400 [facility] (24740) Monocytes (Bld) 0.6 10*3/uL (NEG) 0.3 - 0.9 02-27-2020 PEND ING LOCATION [#/Vol] 10*3/uL 09:05-0400 [facility] (07004) Monocytes/100 11 % (NEG) 2 - 8 % 02-27-2020 PENDING LOCATION WBC (Bld) 09:05-0400 [facility] (36851) Neutrophils 3.4 10*3/uL (NEG) 1.7 - 7 10*3/uL 02-27-2020 PE NDING LOCATION (Bld) [#/Vol] 09:05-0400 [facility] (51758) Neutrophils/100 57 % (NEG) 40 - 60 % 02-27-2020 PENDIN G LOCATION WBC (Bld) 09:05-0400 [facility] (50601) Platelet mean 12.0 (H) 02-27-2020 PENDING LOCA TION volume (Bld) 09:05-0400 [facility] (84889) [Entitic vol] Platelets (Bld) 226 10*3/uL (NEG) 150 - 450 02-27-2020 PEND ING LOCATION [#/Vol] 10*3/uL 09:05-0400 [facility] (49615) Potassium 4.1 mmol/L (NEG) 3.7 - 5.2 mmol/L 02-27-2020 PEND ING LOCATION [Moles/Vol] 09:05-0400 [facility] (82157) Protein 7.2 g/dL (NEG) 6.4 - 8.3 g/dL 02-27-2020 PENDING LOCATION [Mass/Vol] 09:05-0400 [facility] (30541) RBC (Bld) 5.09 10*6/uL (NEG) 4.2 - 6.1 02-27-2020 PENDING L OCATION [#/Vol] 10*6/uL 09:05-0400 [facility] (59594) Sodium 140 mmol/L (NEG) 135 - 145 mmol/L 02-27-2020 PEND ING LOCATION [Moles/Vol] 09:05-0400 [facility] (47756) Urea nitrogen 19 mg/dL (H) 7 - 20 mg/dL 02-27-2020 PENDI NG LOCATION [Mass/Vol] 09:05-0400 [facility] (00408) Urea 21 mg/mg (no code) 6 - 22 mg/mg 02-27-2020 PENDING L OCATION nitrogen/Creatin 09:-0400 [facility] (50881) ine [Mass ratio] WBC (Bld) 5.9 10*3/uL (NEG) 3.5 - 10.5 02-27-2020 PENDING L OCATION [#/Vol] 10*3/uL 09:05-0400 [facility] (39850) not yet categorized on 2020-01-17 Exp date Negative (no code) [facility] (86328) Exp date 08/09/2022 (no code) [facility] (99271) Lot # [id number] (no code) [facility] (05090) laboratory on 2019-11-29 Albumin 4.6 g/dL (N) 3.4 - 5.4 g/dL [facility] [Mass/Vol] [facility] (32691) Albumin/Globulin 2.4 {ratio} (N) 1 - 2.5 {ratio} Comm [facility] [Mass ratio] [facility] (51056) ALP [Catalytic 62 U/L (N) 44 - 147 U/L [facility] activity/Vol] [facility] (69557) ALT [Catalytic 21 U/L (N) 4 - 40 U/L [facility] ealt activity/Vol] [facility] (35349) AST [Catalytic 18 U/L (N) 10 - 34 U/L [facility] activity/Vol] [facility] (61918) Basophils (Bld) 0.031 10*3/uL (N) 0 - 0.3 10*3/uL [facility] [#/Vol] [facility] (49019) Basophils/100 0.8 % (N) 0.5 - 1 % [facility] WBC (Bld) [facility] (39943) Bilirubin 0.4 mg/dL (N) 0.1 - 1.2 mg/dL [facility] [Mass/Vol] [facility] (64729) Calcium 9.5 mg/dL (N) 8.5 - 10.2 mg/dL [facility] [Mass/Vol] [facility] (56366) Chloride 112 mmol/L (H) 95 - 106 mmol/L Pending [facility] [Moles/Vol] [facility] (15610) Cholesterol 235 mg/dL (H) 180 - 200 mg/dL [facility] [Mass/Vol] [facility] (86465) Cholesterol in 47 mg/dL (L) Count Includes [facility] HDL [Mass/Vol] [facility] (19958) Cholesterol in 144 mg/dL (H) 0 - 100 mg/dL [facility] LDL [Mass/Vol] [facility] (13870) Cholesterol non 188 mg/dL (H) [facility] HDL [Mass/Vol] [facility] (48739) Cholesterol.tota 5.0 {ratio} (H) [facility]/Cholesterol in [facility] HDL [Mass ratio] [facility] (08123) CO2 [Moles/Vol] 21 mmol/L (N) 23 - 29 mmol/L [facility] (75506) Creatinine 0.94 mg/dL (N) [facility] [Mass/Vol] [facility] (31109) Cyclic <16 (N) [facility] hospital citrullinated [facility] peptide IgG Qn [facility] (28606) Eosinophils 0.148 10*3/uL (N) 0.05 - 0.5 [facility] (Bld) [#/Vol] 10*3/uL [facility] (54623) Eosinophils/100 3.8 % (N) 1 - 4 % [facility] WBC (Bld) [facility] (90946) Erythrocyte 12.5 % (N) 11.6 - 14.6 % [facility] ealth distribution [facility] width (RBC) [facility] [Ratio] (84477) GFR/1.73 sq M 82 (N) 90 - 120 On license of [facility] predicted among mL/min/{1.73_m2} mL/min/{1.73_m2} Center o f [facility] blacks MDRD [facility] (S/P/Bld) [Vol (96524) rate/Area] GFR/1.73 sq 71 (N) 90 - 120 Count Includes [facility] th M.predicted MDRD mL/min/{1.73_m2} mL/min/{1.73_m2} [facility] (S/P/Bld) [Vol [facility] rate/Area] (07012) Globulin (S) 1.9 g/dL (N) 2 - 3.5 g/dL [facility] ealth [Mass/Vol] [facility] (17080) Glucose 93 mg/dL (N) 60 - 125 mg/dL [facility] [Mass/Vol] [facility] (23607) Hematocrit (Bld) 42.3 % (N) 36.1 - 50.3 % [facility] [Volume [facility] (08937) Hemoglobin (Bld) 13.6 g/dL (N) 12.1 - 17.2 g/dL [facility] [Mass/Vol] [facility] (60736) Lymphocytes 1.143 10*3/uL (N) 0.9 - 2.9 [facility] (Bld) [#/Vol] 10*3/uL [facility] (12425) Lymphocytes/100 29.3 % (N) 20 - 40 % [facility] WBC (Bld) [facility] (34128) MCH (RBC) 28.4 pg (N) 27 - 31 pg [facility] [Entitic mass] [facility] (21068) MCHC (RBC) 32.2 g/dL (N) 32 - 36 g/dL [facility] [Mass/Vol] [facility] (88054) MCV (RBC) 88.3 fL (N) 80 - 100 fL [facility] [Entitic vol] [facility] (36477) Monocytes (Bld) 0.406 10*3/uL (N) 0.3 - 0.9 [facility] [#/Vol] 10*3/uL [facility] (26586) Monocytes/100 10.4 % (N) 2 - 8 % [facility] WBC (Bld) [facility] (16654) Neutrophils 2.172 10*3/uL (N) 1.7 - 7 10*3/uL [facility] (Bld) [#/Vol] [facility] (75722) Neutrophils/100 55.7 % (N) 40 - 60 % [facility] WBC (Bld) [facility] (52590) Platelet mean 12.1 fL (N) 7.2 - 11.7 fL [facility] volume (Bld) [facility] [Entitic vol] [facility] (24374) Platelets (Bld) 225 10*3/uL (N) 150 - 450 [facility] [#/Vol] 10*3/uL [facility] (51247) Potassium 4.1 mmol/L (N) 3.7 - 5.2 mmol/L [facility] [Moles/Vol] [facility] (48188) Protein 6.5 g/dL (N) 6.4 - 8.3 g/dL [facility] [Mass/Vol] [facility] (03069) RBC (Bld) 4.79 10*6/uL (N) 4.2 - 6.1 [facility] [#/Vol] 10*6/uL [facility] (43717) Sodium 141 mmol/L (N) 135 - 145 mmol/L [facility] [Moles/Vol] [facility] (07817) Triglyceride 305 mg/dL (H) 0 - 150 mg/dL [facility] [Mass/Vol] [facility] (89921) Urea nitrogen 18 mg/dL (N) 7 - 20 mg/dL [facility] [Mass/Vol] [facility] (27602) Urea NOT APPLICABLE (no code) Count Includes [facility] nitrogen/Creatin [facility] [Mass ratio] [facility] (48973) WBC (Bld) 3.9 10*3/uL (N) 3.5 - 10.5 [facility] [#/Vol] 10*3/uL [facility] (86209) not yet categorized on 2019-06-27 Control Negative (no code) [facility] (67687) Exp date 07/05/2021 (no code) [facility] (60675) Lot # [id number] (no code) [facility] (90289) not yet categorized on 2019-06-02 BLO trace (no code) [facility] (67577) KET neg~neg~neg (no code) [facility] (86896) IDALIA neg~1+ (no code) [facility] (83862) Lot # [id number] (no code) [facility] (84427) SG 1.020 (no code) [facility] (41032) URO 0.2 (no code) [facility] (81339) laboratory on 2019-06-02 Bacteria SEE NOTE (A) [facility] identified Cx [facility] (U) [facility] (92040) Bacteria SEE NOTE (A) [facility] hospital identified Cx [facility] (U) [facility] (23904) Color (U) 10/20~sl (no code) [facility] hospital cloudy~yellow [facility] (00500) pH (Bld) 5.5 [pH] (no code) 7.38 - 7.42 [pH] [facility] () Protein (U) trace (no code) [facility] [Mass/Vol] [facility] (03877) other on 2019-01-10 Cholesterol in 160 (H) [facility] LDL [Mass/Vol] [facility] (62432) Cholesterol non 198 (H) [facility] HDL [Mass/Vol] [facility] (91470) Cholesterol.tota 4.3 (N) [facility] lt l/Cholesterol in [facility] HDL [Mass ratio] [facility] () GFR/1.73 sq 83 (N) 90 - 120 [facility] M.predicted MDRD mL/min/{1.73_m2} mL/min/{1.73_m2} [facility] (S/P/Bld) [Vol [facility] rate/Area] () metabolic panel on 2019-01-10 Calcium 9.6 mg/dL (N) 8.5 - 10.2 mg/dL [facility] [Mass/Vol] [facility] (93177) Chloride 111 mmol/L (H) 95 - 106 mmol/L [facility] [Moles/Vol] [facility] (82841) CO2 [Moles/Vol] 23 mmol/L (N) 23 - 29 mmol/L [facility] (14704) Creatinine 0.83 mg/dL (N) Count Includes [facility] [Mass/Vol] [facility] (53704) GFR/1.73 sq M 96 (N) 90 - 120 [facility] predicted among mL/min/{1.73_m2} mL/min/{1.73_m2} [facility] [place] MDRD [facility] (S/P/Bld) [Vol (76077) rate/Area] Glucose 94 mg/dL (N) 60 - 125 mg/dL [facility] [Mass/Vol] [facility] (91998) Potassium 3.4 mmol/L (L) 3.7 - 5.2 mmol/L [facility] [Moles/Vol] [facility] (88706) Sodium 143 mmol/L (N) 135 - 145 mmol/L [facility] [Moles/Vol] [facility] (66856) Urea nitrogen 16 mg/dL (N) 7 - 20 mg/dL [facility] [Mass/Vol] [facility] (44860) Urea NOT APPLICABLE (no code) [facility] nitrogen/Creatin [facility] [Mass ratio] [facility] (55317) cardiac on 2019-01-10 Cholesterol 258 mg/dL (H) 180 - 200 mg/dL [facility] [Mass/Vol] [facility] (91793) Cholesterol in 60 mg/dL (N) Count Includes [facility] HDL [Mass/Vol] [facility] (11215) Triglyceride 224 mg/dL (H) 0 - 150 mg/dL [facility] [Mass/Vol] [facility] (30271) urinalysis on 2018-04-14 Urine, protein Negative (no code) 0 - 20 mg/dL [facility] (53501) other on 2018-04-14 BLO 01/06~slightly (no code) [facility] cloudy~yellow~no [facility] ~Negative~Negati [facility] ve~Negative~>=1. (37404) 030~Negative IDALIA Negative (no code) [facility] (08421) Lot # [id number] (no code) [facility] (67032) URO 0.2 (no code) [facility] (41006) hematology on 2018-04-14 pH of blood 5.0 [pH] (no code) 7.38 - 7.42 [pH] [facility] (97631) thyroid on 2018-01-28 Thyrotropin Qn 0.88 m[IU]/L (no code) 0.4 - 4 m[IU]/L [facility] (71059[facility] no panel information on 2017-10-27 NEGATED no information (N) [facility] no [facility] (68229) NEGATED no information (N) [facility] no [facility] (19411) NEGATED no information (N) [facility] (41778) NEGATED no information (N) [facility] (09050) NEGATED no information (N) [facility] (79870) NEGATED no information (N) [facility] (55983) NEGATED no information (N) [facility] (07280) NEGATED no information (N) [facility] (67797) NEGATED no information (N) [facility] (05660) NEGATED no information (no code) [facility] (02996) NEGATED no information (H) [facility] (80313) NEGATED no information (no code) [facility] (94561) NEGATED no information (N) [facility] (90470) NEGATED no information (L) [facility] (90011) NEGATED no information (N) [facility] (30373) NEGATED no information (N) [facility] (68936) NEGATED no information (no code) [facility] (76930) NEGATED no information (N) [facility] (07941) NEGATED no information (N) [facility] (50345) NEGATED no information (N) [facility] (33589) NEGATED no information (N) [facility] (93645) NEGATED no information (N) [facility] no [facility] information [facility] (71490) urinalysis on 2017-02-14 Bacteria Note (no code) 02-14-2017 Not Available identified Cx 17:51-0400 (65725) Nom (U) Vital Signs Vital Sign Value Interpretation Reference Date Time Care [facility] ider Facility (Normalized) (Normalized) Range BMI (Body Mass 22.59 kg/m2 (no code) 15 - 25 kg/m2 07-30-2018 ULICES MARCELA MUKHERJEE Community Index) 12:00-[address] [place] [address] (21353) BMI (Body Mass 25.34 kg/m2 (no code) 15 - 25 kg/m2 06-01-2018 HO AARON GUO Community Index) 11:40-0400 25789 [facility] (37006) BMI (Body Mass 27.76 kg/m2 (no code) 15 - 25 kg/m2 04-14-2018 M ELSA ESTRELLA Community Index) 14:40-0400 31463 [facility] (99495) BMI (Body Mass 28.16 kg/m2 (no code) 15 - 25 kg/m2 03-22-2018 B JOSSELYN CORBIN Community Index) 11:20-0400 34775 [facility] (89280) BMI (Body Mass 24.21 kg/m2 (no code) 15 - 25 kg/m2 03-19-2018 Olayinka SMALL Community Index) 09:40-0400 72263 [facility] (43783) BMI (Body Mass 24.22 kg/m2 (no code) 15 - 25 kg/m2 03-04-2018 M ELSA ESTRELLA Community Index) 15:40-0400 54872 [facility] (60818) BMI (Body Mass 25.4 kg/m2 (no code) 15 - 25 kg/m2 01-31-2018 BE THANY [facility] Community Index) 11:40-0400 37525 [facility] (05205) BMI (Body Mass 23.14 kg/m2 (no code) 15 - 25 kg/m2 01-28-2018 B ETHANY [facility] Community Index) 11:40-0400 70060 [facility] (51183) BMI (Body Mass 22.11 kg/m2 (no code) 15 - 25 kg/m2 01-12-2018 B [facility] Community Index) 11:00-0400 34775 [facility] (42039) Body 98.1 [degF] (no code) 97.8 - 99.0 07-30-2018 BRISA Community Temperature [degF] 12:00-[address] (38434) Body 98.7 [degF] (no code) 97.8 - 99.0 06-01-2018 TOBI Ochoa Community Temperature [degF] 11:40-0400 81730 [facility] (34337) Body 98 [degF] (no code) 97.8 - 99.0 04-14-2018 GUS CARE Y Community Temperature [degF] 14:40-0400 46089 [facility] (11597) Body 98.1 [degF] (no code) 97.8 - 99.0 03-22-2018 EDWARD EN AURY Community Temperature [degF] 11:20-0400 26862 [facility] (91358) Body 99.1 [degF] (no code) 97.8 - 99.0 03-19-2018 MIKEY WREN Community Temperature [degF] 09:40-0400 15564 [facility] (04248) Body 98.1 [degF] (no code) 97.8 - 99.0 03-04-2018 GUS BERRY [facility] Temperature [degF] 15:40-0400 36894 [facility] (92745) Body 98.6 [degF] (no code) 97.8 - 99.0 01-31-2018 EDWARD [facility] Temperature [degF] 11:40-0400 88564 [facility] (07251) Body 98 [degF] (no code) 97.8 - 99.0 01-28-2018 EDWARD [facility] Temperature [degF] 11:40-0400 13150 [facility] (56862) Body 98 [degF] (no code) 97.8 - 99.0 01-12-2018 [facility] Temperature [degF] 11:00-0400 [facility] (67900) Body 98.3 [degF] (no code) 97.8 - 99.0 11-28-2014 EDWARD EN [facility] Temperature [degF] 11:36-0400 [facility] (41666) Body 97.8 [degF] (no code) 97.8 - 99.0 10-19-2014 [facility] Temperature [degF] 12:54-0500 GARCIA [facility] (31180) Body 97.6 [degF] (no code) 97.8 - 99.0 10-02-2014 EDWARD EN [facility] Temperature [degF] 11:24-0500 [facility] (14277) Body 98.5 [degF] (no code) 97.8 - 99.0 09-05-2014 [facility] Temperature [degF] 13:05-0500 GARCIA [facility] (83595) Body 97.5 [degF] (no code) 97.8 - 99.0 08-09-2014 [facility] Temperature [degF] 08:090500 40991 [facility] (38790) Body 97.4 [degF] (no code) 97.8 - 99.0 06-13-2014 [facility] Temperature [degF] 08:49-0400 21754 [facility] (50472) Body 97.7 [degF] (no code) 97.8 - 99.0 05-11-2014 [facility] Temperature [degF] 14:49-[id number] [place] [address] [facility] (52488) Body weight 70.18 kg (no code) kg 11-28-2014 [facility] 11:36-[address] [place] [address] (35160) Body weight 68.55 kg (no code) kg 10-19-2014 JAMES [facility] 12:54-[address] [place] [address] (49459) Body weight 68.68 kg (no code) kg 10-02-2014 [facility] 11:24-[address] [place] [address] (87490) Body weight 66.36 kg (no code) kg 09-05-2014 JAMES [facility] 13:05-[address] [place] [address] (77998) Body weight 67.13 kg (no code) kg 08-09-2014 [facility] 08:09-0500 51106 [facility] (84390) Body weight 68.4 kg (no code) kg 06-13-2014 [facility] 08:49-[address] [place] [address] ([id number]) Body weight 66.23 kg (no code) kg 05-11-2014 [facility] 14:49-[address] [place] [address] ([id number]) Height 167.64 cm (no code) cm 07-30-2018 [facility] 12:00-[address] [place] [address] ([id number]) Height 167.64 cm (no code) cm 06-01-2018 TOBI GUO Mt mmunity 11:40-0400 [id number] [facility] ([id number]) Height 167.64 cm (no code) cm 04-14-2018 [facility] 14:40-0400 89520 [facility] ([id number]) Height 167.64 cm (no code) cm 03-22-2018 [facility] 11:20-0400 38854 [facility] ([id number]) Height 167.64 cm (no code) cm 03-19-2018 MIKEY GEOVANNY [facility] 09:40-0400 84929 [facility] ([id number]) Height 167.64 cm (no code) cm 03-04-2018 [facility] 15:40-[address] [place] [address] ([id number]) Height 167.64 cm (no code) cm 01-31-2018 [facility] 11:40-[address] [place] [address] ([id number]) Height 167.64 cm (no code) cm 01-28-2018 [facility] 11:40-[address] [place] [address] ([id number]) Height 167.64 cm (no code) cm 01-12-2018 [facility] 11:00-[address] [place] [address] ([id number]) Height 167.64 cm (no code) cm 11-28-2014 [facility] 11:36-[address] [place] [address] ([id number]) Height 167.64 cm (no code) cm 10-19-2014 JAMES Commu nity 12:54-[address] [place] [address] ([id number]) Height 167.64 cm (no code) cm 10-02-2014 [facility] 11:24-[address] [place] [address] ([id number]) Height 167.64 cm (no code) cm 09-05-2014 JAMES Commu nity 13:05-[address] [place] [address] ([id number]) Height 167.64 cm (no code) cm 08-09-2014 [facility] 08:090500 66597 [facility] ([id number]) Pulse Oximetry 83 % (no code) 95 - 100 % 06-01-2018 [facility] 11:40-0400 40985 [facility] ([id number]) Pulse Oximetry 94 % (no code) 95 - 100 % 03-22-2018 [facility] 11:20-[address] [place] [address] ([id number]) Pulse Oximetry 90 % (no code) 95 - 100 % 03-04-2018 GUS ESTRELLA [facility] 15:40-[id number] [place] [address] ([id number]) Pulse Oximetry 92 % (no code) 95 - 100 % 01-31-2018 [facility] 11:40-[id number] [place] [address] ([id number]) Pulse Oximetry 94 % (no code) 95 - 100 % 01-28-2018 [facility] 11:40-[address] [place] [address] ([id number]) Weight 63.5 kg (no code) kg 07-30-2018 [facility] 12:000500 NI [address] [place] [address] ([id number]) Weight 71.22 kg (no code) kg 06-01-2018 TOBI [facility] Com munity 11:40-[id number] [place] [address] ([id number]) Weight 78.02 kg (no code) kg 04-14-2018 GUS ESTRELLA C ommunity 14:400400 25381 [facility] ([id number]) Weight 79.15 kg (no code) kg 03-22-2018 EDWARD CORBIN ommunity 11:200400 [id number] [place] [address] ([id number]) Weight 68.04 kg (no code) kg 03-19-2018 MIKEY SMALL Co mmunity 09:400400 [id number] [place] [address] ([id number]) Weight 68.09 kg (no code) kg 03-04-2018 GUS ESTRELLA C ommunity 15:400400 [id number] [place] [address] ([id number]) Weight 71.4 kg (no code) kg 01-31-2018 EDWARD Pineda ommunity 11:40-0400 31859 [facility] ([id number]) Weight 65.05 kg (no code) kg 01-28-2018 EDWARD Pineda ommunity 11:40-0400 44221 [facility] ([id number]) Weight 62.14 kg (no code) kg 01-12-2018 EDWARD Pineda ommunity 11:00-0400 60521 [facility] ([id number]) Interventions No Information Plan of Treatment The [...] ANGELICA HARLEY DO (Unspecified) - 10/22/16 Address: [address] [place] [address]&[place] [phone] Reason(s) for Referral: APPT AT 10AM Care [...] MD Order Date: Primary Care Physician Address: [address] [place] [address] Additional Instructions/Education 1. Pain medication as directed [...] Visit Sprain of tibiofibular GUS ESTRELLA (no [facility] - ligament of right phone) GUS Ramos (no phone) 04-14-2018 ankle, subsequent (no phone) GUS - encounter Richard (no phone) 04-14-2018 03-24-2019 (SD) Same Day Dizziness and SONNYSAVAGE FULLER (no [facility] - giddiness phone) (no phone) 03-24-2019 - 03-24-2019 01-17-[address] Chronic obstructive ANABEL OLVIN OT ([facility] pulmonary disease with phone) CARE (n o phone) (acute) exacerbation 09-15-2019 [facility] Chronic obstructive JAMEEL ORELL DAMARIS (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 08-07-2019 [facility] Shortness of breath CLEMENTE MANDEL [facility] (no [facility] phone) (no phone) 06-27-2019 [facility] Acute laryngitis EDWARD STEPHANIE H (no [facility] phone) (no phone) 06-02-2019 [facility] Shortness of breath CLEMENTE ARZOLA (no [facility] - phone) (no phone) 06-02-2019 - 06-02-2019 04-11-2019 [facility] Other rheumatoid EDWARD STEPHANIE H (no [facility] - arthritis with phone) (no phone) 04-11-2019 rheumatoid factor of - multiple sites 04-11-2019 04-14-2018 [facility] no information EDWARD EMERALD (no [facility] - phone) (no phone) 04-14-2018 - 04-14-2018 04-11-2018 [facility] Chronic pain syndrome EDWARD EMERALD (no [facility] - phone) (no phone) 04-11-2018 - 04-11-2018 03-31-2018 [facility] no information EDWARD EMERALD (no [facility] - phone) (no phone) 03-31-2018 - 03-31-2018 02-06-2019 Discharged Recurring no information EDWARD N EMERALD Work no organization name - 05-08-2019 02-27-2020 Emergency department no information ANGELO HILL (no [facility] - patient visit phone) [facility] 02-27-2020 (no phone) 02-15-2014 Emergency department no information no name [...] information no name no or ganization name 02-29-2020 Patient encounter no information [facility] CORBIN [facility]) (no phone) [facility] (no phone) 02-27-2020 Patient encounter no information EDWARD CORBIN (n [facility] procedure phone) ANGELO [facility] (no phone) [place] (no phone) 01-17-2020 Patient encounter no information EDWARD CORBIN (n [facility] procedure phone) (no phone) (no [facility] phone) [place] (no phone) 11-29-2019 Patient encounter no information (no phone) [facility] procedure [facility] (no phone) 09-15-2019 Patient encounter no information no name no or ganization name procedure 08-07-2019 Patient encounter Major depressive LOU 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 [facility] - procedure disorder, recurrent phone) (no ph [...] name 01-16-2020 Telephone encounter no information EDWARD EMERALD [facility] phone) (no phone) 12-28-2019 Telephone encounter Other rheumatoid EDWARD EMERALD ([facility] arthritis with phone) (no phone) rheumatoid factor of multiple sites 12-27-2019 Telephone encounter no information EDWARD EMERALD (n o [facility] phone) (no phone) 11-27-2019 Telephone encounter Other rheumatoid EDWARD EMERALD (no [facility] arthritis with phone) (no phone) rheumatoid factor of multiple sites 10-30-2019 Telephone encounter Other rheumatoid CLEMENTE HADLEYWaldemar GH (no [facility] arthritis with phone) (no phone) rheumatoid factor of multiple sites 10-02-2019 Telephone encounter 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 phone) rheumatoid factor of multiple sites 09-18-2019 Telephone encounter no information EDWARD EMERALD (n o [facility] phone) (no phone) 09-04-2019 Telephone encounter 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 phone) rheumatoid factor of multiple sites 08-07-2019 Telephone encounter Essential (primary) EDWARD NATALIE CH (no [facility] hypertension phone) (no phone) 08-03-2019 Telephone encounter Gastro-esophageal CLEMENTE MANDELADRIANEALAN UGH (no [facility] [employer] reflux disease without phone) (no phone) esophagitis 07-07-2019 Telephone encounter Other rheumatoid EDWARD EMERALD (no [facility] arthritis with phone) SONNY (no phone) rheumatoid factor of [place] (no phone) multiple sites 07-05-2019 Telephone encounter 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 phone) rheumatoid factor of multiple sites 06-06-2019 Telephone encounter Other rheumatoid EDWARD EMERALD (no [employer] - arthritis with phone) (no phone) 06-06-2019 rheumatoid factor of - multiple sites 06-06-2019 06-05-2019 Telephone encounter Shortness of breath CLEMENTE LIDIA RUCKER (no [facility] - phone) (no phone) 06-05-2019 - 06-05-2019 06-02-2019 Telephone encounter Shortness of breath EDWARD NATALIE CH (no [facility] [employer] - phone) (no phone) 06-02-2019 - 06-02-2019 05-09-2019 Telephone encounter Other rheumatoid EDWARD EMERALD (no [employer] [facility] - arthritis with phone) (no phone) 05-09-2019 rheumatoid factor of - multiple sites 05-09-2019 04-10-2019 Telephone encounter no information EDWARD CORBIN (n o [facility] - phone) (no phone) 04-10-2019 - 04-10-2019 03-08-2019 Telephone encounter Chronic pain syndrome EDWARD HARRISON (no [facility] - phone) (no phone) 03-08-2019 - 03-08-2019 02-07-2019 Telephone encounter Chronic pain syndrome EDWARD Orozco NOCBeverley (no [facility] - phone) (no phone) 02-07-2019 - 02-07-2019 [...] No Information Payers Normalized Payer Value Unknown [id number]) History general Narrative - Reported Note Type [...] Distress with hypoxia -[facility] 09/22/16 ation History [facility] ([id number]) Summary Purpose eClinicalWorks SubmissioneClinicalWorks SubmissioneClinicalWorks SubmissioneClinicalWorks SubmissioneClinicalWorks SubmissioneClinicalWorks SubmissioneClinicalWorks SubmissioneClinicalWorks SubmissioneClinicalWorks SubmissioneClinicalWorks SubmissioneClinicalWorks SubmissioneClinicalWorks SubmissioneClinicalWorks SubmissioneClinicalWorks SubmissioneClinicalWorks SubmissioneClinicalWorks SubmissioneClinicalWorks SubmissioneClinicalWorks SubmissioneClinicalWorks SubmissioneClinicalWorks SubmissioneClinicalWorks Submission Advance Directives Directive Response Recor ded Date/Time Advance Directives No 12:53pm Organ Donor No 09/13/16 12:14pm Resuscitation Status Full Code 09/13/16 12:53pm Directive Response Recor ded Date/Time Advance Directives No 2:28pm Health Care Power of Assistant Center Manager No 09/22/16 2:28pm Organ Donor No 09/22/16 2:28pm Resuscitation Status Full Code 09/22/16 2:28pm Directive Response Recor ded Date/Time Advance Directives No 10:37am Health Care Power of Assistant Center Manager No 07/17/17 10:37am Organ Donor No 07/17/17 10:37am Resuscitation Status Full Code 07/17/17 10:37am Directive Response Recor ded Date/Time Advance Directives No 10:37am Health Care Power of Assistant Center Manager No 07/17/17 10:37am Organ Donor No 07/17/17 [...] Please restart your prednisone dose prescribed by Catrachito tomorrow morning. You have had enough steroids throuhg your IV today. 4. Please wear your home oxygen until Dr Crobin tells you it is safe to stop. [...] Please restart your prednisone dose prescribed by Catrachito tomorrowmorning. You have had enough steroids throuhg your IV today.4. Please wear your home oxygen until Dr Corbin tells you it is safe tostop. Goal:: Dr Corbin on 09/15 Patient Instructions Physician Instructions New, Converted or Re-Newed RX: Transmitted to Pharmacy Goal/Follow Up Appt: You have a followup appt with Dr Corbin on Oct 01 @ 1220 PM at [facility] Discuss Rheum Referral to [facility] given your Airam Status Will need appt [...] on Oct [facility] given your Airam Status Will need appt with Dr Harley for Pulmonary Evaluation No hospital discharge instruction information available.No hospital discharge instruction information available. Additional Source Comments This clinical document has been generated using BER[employer] software that has been certified by the Office of the National Coordinator for Health Information Technology (ONC 15.99.04.3023.Diam.[id number]) and the National Committee for Owner Manager (NCQA, as an eMeasure certified technology). FOR [...] BASED ON T HE PRIMARY CLINICAL RECORDS. [employer]. provides no warranty or guara ntee of [...] History hysterectomy 2002 Surgical History arthroscopic knee s urgery-left knee [...] Congestion-awoods, fell on and was seen at [facility] Wednesday and is here to f/u-awoodsControlled Medication Refillback pain x 1 week -- Jad stewart eControlled Medication RefillCold symptoms, fever , cough , shortness of breath x 2 week -- terry maRequests return callOxygenControlled Medication RefillRe fill requestcough, congestion, headache for the past 5 days. kbullardrnControlle d Med [id number]-MigControlled Medication Refill
--- OUTSIDE RECORDS SUMMARY | 2020-03-15 06:11 | XMS REPORT | Clinical Summary ---
Author Author [facility] Organization [facility] Address Unknown Phone Unavailable Care Team Providers Care Grocery Carrier Name Role Phone Art Ribeiro MD Unavailable Unavailable Karen Melgar MD PCP Raudel Cordova MD Unavailable Herbie Estrella OD Unavailable Carolyn Madison LPN Unavailable Unavailable Chico Magana MD Unavailable Patsy Marcum MD Unavailable Unavailable Source Comments Some departments are not documenting in the electronic medical record. 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
--- OUTSIDE RECORDS SUMMARY | 2020-03-15 06:22 | XMS REPORT | Continuity of Care Document ---
Demographics Preferred Language Unknown Marital Status Unknown Zoroastrian Affiliation Unknown Race Unknown Ethnic Group Unknown Author Organization Unknown Address Unknown Phone Unavailable Allergies Active Description Code Type Severity Reaction Onset Reported/Identified Relationship to Patient Clinical Status Yes iodine [id number] Drug Allergy Severe N/A 01/29/2011 Yes Cipro Drug Allergy N/A N/A 05/11/2014 Yes codeine Drug Allergy N/A N/A 05/11/2014 Yes Orencia Drug Allergy N/A N/A 05/11/2014 Yes Penicillins Drug Allergy N/A N/A 05/11/2014 Yes abatacept [id number] Drug Allergy Unknown N/A 06/27/2014 Yes ciprofloxacin [id number] Werner g Allergy Unknown N/A 06/27/2014 Yes codeine [id number] Drug Allergy Unknown N/A 06/27/2014 Yes hydrocodone [id number] Drug Aller gy Unknown N/A 06/27/2014 Yes IVP DYE IVP DYE Unknown N/A 06/27/2014 Yes Penicillins [id number] Drug Aller gy Unknown N/A 06/27/2014 Medications [...] STATUS 01/29/2011 Ot 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 04/11/2011 Ot 276.51 DEH YDRATION 04/11/2011 Ot 787.03 VOM ITING ALONE 04/11/2011 Ot 992.9 HEAT EFFECT NOS 04/11/2011 Ot E000.8 OTH ER EXTERNAL CAUSE STATUS 04/11/2011 Ot E029.9 OTH ER ACTIVITY 04/11/2011 Ot E900.0 EXC ESSIVE HEAT: WEATHER 02/15/2014 ANGELO MIRANDA PLANT [employer] EQUIPMENT WORKER Ot 401 .9 HYPERTENSION NOS 02/15/2014 ANGELO MIRANDA PLANT [employer] EQUIPMENT WORKER Ot 535.50 UNSP GASTRITIS GASTRODUODENITIS W/O ME 02/15/2014 ANGELO MIRANDA PLANT AND EQUIPMENT WORKER Ot 562.10 DIVERTICULOSIS COLON (W/O MENT OF HEMORR 02/15/2014 ANGELO MIRANDA PLANT AND EQUIPMENT WORKER Ot 564.00 UNSPEC CONSTIPATION 02/15/2014 ANGELO MIRANDA PLANT AND EQUIPMENT WORKER Ot 573 .8 LIVER DISORDERS NEC 02/15/2014 ANGELO MIRANDA PLANT AND EQUIPMENT WORKER Ot 587 RENAL SCLEROSIS NOS 02/15/2014 ANGELO MIRANDA PLANT AND EQUIPMENT WORKER Ot 714 .0 RHEUMATOID ARTHRITIS 02/15/2014 ANGELO MIRANDA PLANT AND EQUIPMENT WORKER Ot 724 .5 BACKACHE NOS 02/15/2014 ANGELO MIRANDA PLANT AND EQUIPMENT WORKER Ot 787.01 NAUSEA WITH VOMITING 02/15/2014 ANGELO MIRANDA PL[employer] EQUIPMENT WORKER Ot 787.91 DIARRHEA 02/15/2014 ANGELO MIRADNA PLANT AND EQUIPMENT WORKER Ot 789.00 ABDOMINAL PAIN, UNSPECIFIED SITE 02/15/2014 ANGELO MIRANDA PL[employer] EQUIPMENT WORKER Ot 789.01 ABDOMINAL PAIN, RIGHT UPPER QUADRANT 02/15/2014 ANGELO MIRANDA PLANT AND EQUIPMENT WORKER Ot 789.06 ABDOMINAL PAIN, EPIGASTRIC 05/11/2014 EDWARD [...] APRN R 714.0 RHEUMATOID ARTHRITIS 05/11/2014 GARCIA PLANT [employer] EQUIPMENT WORKER, JAMES R 786.50 CHEST PAIN 05/11/2014 DENNISE [...] CORBIN MD N 786 .2 COUGH 09/05/2014 EDI GARCIA APRNIA R 786.2 COUGH 10/19/2014 RADHA [...] 585 .9 CHRONIC KIDNEY DISEASE, UNSPECIFIED 09/23/2016 EMEARLD JACOBO, EDWARD Panda Ot 787.91 DIARRHEA 09/23/2016 [...] Ot R09.0 2 HYPOXEMIA 10/09/2016 ALINE ALCANTARA PLANT AND EQUIPMENT WORKER Ot J18.9 PNEUMONIA, UNSPECIFIED ORGANISM 10/09/2016 ALINE ALCANTARA PLANT AND EQUIPMENT WORKER Ot R06.09 OTHER FORMS OF DYSPNEA 10/09/2016 ALINE ALCANTARA PLANT AND EQUIPMENT WORKER Ot R09.02 HYPOXEMIA 10/27/2016 ALINE ALCANTARA PLANT AND EQUIPMENT WORKER Ot J18.9 PNEUMONIA, UNSPECIFIED ORGANISM 10/27/2016 ALINE ALCANTARA PLANT AND EQUIPMENT WORKER Ot R06.09 OTHER FORMS OF DYSPNEA 10/27/2016 ALINE ALCANTARA PLANT AND EQUIPMENT WORKER Ot R09.02 HYPOXEMIA 11/11/2016 ALINE ALCANTARA PLANT AND EQUIPMENT WORKER Ot J18.9 PNEUMONIA, UNSPECIFIED ORGANISM 11/11/2016 ALINE ALCANTARA PLANT AND EQUIPMENT WORKER Ot R06.09 OTHER FORMS OF DYSPNEA 11/11/2016 ALINE ALCANTARA PLANT AND EQUIPMENT WORKER Ot R09.02 HYPOXEMIA 11/12/2016 ALINE ALCANTARA PLANT AND EQUIPMENT WORKER Ot J18.9 PNEUMONIA, UNSPECIFIED ORGANISM 11/12/2016 ALINE ALCANTARA PLANT AND EQUIPMENT WORKER Ot R06.09 OTHER FORMS OF DYSPNEA 11/12/2016 MARICRUZ, ALINE Ernesto PLANT AND EQUIPMENT WORKER Ot R09.02 HYPOXEMIA 12/02/2016 AMRICRUZ ALINE Orozco PLANT AND EQUIPMENT WORKER Ot J18.9 PNEUMONIA, UNSPECIFIED ORGANISM 12/02/2016 MARICRUZ, ALINE Ernesto PLANT AND EQUIPMENT WORKER Ot R06.09 OTHER FORMS OF DYSPNEA 12/02/2016 MARICRUZ ALINE Orozco PLANT AND EQUIPMENT WORKER Ot R09.02 HYPOXEMIA 12/02/2016 MARICRUZ ALINE Orozco PLANT AND EQUIPMENT WORKER Ot J18.9 PNEUMONIA, UNSPECIFIED ORGANISM 12/02/2016 MARICRUZ, ALINE Ernesto PLANT AND EQUIPMENT WORKER Ot R06.09 OTHER FORMS OF DYSPNEA 12/02/2016 MARICRUZ ALINE Orozco PLANT AND EQUIPMENT WORKER Ot R09.02 HYPOXEMIA 12/16/2016 MARICRUZ ALINE Orozco PLANT AND EQUIPMENT WORKER Ot J18.9 PNEUMONIA, UNSPECIFIED ORGANISM 12/16/2016 MARICRUZ, ALINE Orozco PLANT AND EQUIPMENT WORKER Ot R06.09 OTHER FORMS OF DYSPNEA 12/16/2016 MARICRUZ ALINE Orozco PLANT AND EQUIPMENT WORKER Ot R09.02 HYPOXEMIA 01/20/2017 ANGELICA HARLEY DO [...] IN RIGHT HIP 07/17/2017 MIRANDA, PETER J PLANT AND EQUIPMENT WORKER Ot X50.0XXA OVEREXERTION FROM STRENUOUS MOVEMENT OR 07/17/2017 ANGELO MIRANDA PLANT AND EQUIPMENT WORKER Ot Z80 .0 FAMILY HISTORY OF MALIGNANT NEOPLASM OF 07/17/2017 ANGELO MIRANDA PLANT AND EQUIPMENT WORKER Ot Z82.49 FAMILY HX OF ISCHEM HEART DIS AND OTH DI 07/17/2017 ANGELO MIRANDA PLANT AND EQUIPMENT WORKER Ot Z90.49 ACQUIRED ABSENCE OF OTHER SPECIFIED PART 07/17/2017 ANGELO MIRANDA PLANT AND EQUIPMENT WORKER Ot Z90.710 ACQUIRED ABSENCE OF BOTH CERVIX [...] HARLEY DO Ot R09. 02 HYPOXEMIA 08/24/2017 EDWARD CORBIN MD Ot R05 COUGH 01/12/2018 EDWARD [...] FOR OTHER PREPROCEDURAL EXAMIN 01/12/2018 ALINE ALCANTARA PLANT AND EQUIPMENT WORKER Ot J18.9 PNEUMONIA, UNSPECIFIED ORGANISM 01/12/2018 ALINE ALCANTARA PLANT AND EQUIPMENT WORKER Ot R06.09 OTHER FORMS OF DYSPNEA 01/12/2018 ALINE ALCANTARA PLANT AND EQUIPMENT WORKER Ot R09.02 HYPOXEMIA 01/12/2018 ALINE ALCANTARA PLANT AND EQUIPMENT WORKER Ot J18.9 PNEUMONIA, UNSPECIFIED ORGANISM 01/12/2018 ALINE ALCANTARA PLANT AND EQUIPMENT WORKER Ot R06.09 OTHER FORMS OF DYSPNEA 01/12/2018 ALINE ALCANTARA PLANT AND EQUIPMENT WORKER Ot R09.02 HYPOXEMIA 01/12/2018 ANGELICA HARLEY DO [...] MD Ot 272 .4 HYPERLIPIDEMIA NEC/NOS 01/28/2018 EDWARD CORBIN MD Ot 585 .9 CHRONIC KIDNEY DISEASE, UNSPECIFIED 01/28/2018 EDWARD CORBIN MD Ot 787.91 DIARRHEA 01/28/2018 EDWARD CORBIN MD Ot M54.17 RADICULOPATHY, LUMBOSACRAL REGION 01/28/2018 EDWARD CORBIN MD Ot R31 .9 HEMATURIA, UNSPECIFIED 01/28/2018 PATELPRATIMA ROY DO Ot R19. [...] R00 .0 TACHYCARDIA, UNSPECIFIED 03/21/2018 MIKEY SMALL PLANT AND EQUIPMENT WORKER Ot S99.911A UNSPECIFIED INJURY OF RIGHT ANKLE, INITI 03/21/2018 MIKEY SMALL PLANT AND EQUIPMENT WORKER Ot X50.1XXA OVEREXERTION FROM PROLONGED STATIC OR AW 03/21/2018 MIKEY SMALL PLANT AND EQUIPMENT WORKER Ot S99.911A UNSPECIFIED INJURY OF RIGHT ANKLE, INITI 03/21/2018 MIKEY SMALL PL[employer] AND EQUIPMENT WORKER Ot X50.1XXA OVEREXERTION FROM PROLONGED STATIC OR AW 03/28/2018 MIKEY SMALL PL[employer] AND EQUIPMENT WORKER Ot S99.911A UNSPECIFIED INJURY OF RIGHT ANKLE, INITI 03/28/2018 MIKEY SMALL APRN Ot X50.1XXA OVEREXERTION FROM PROLONGED STATIC OR AW 04/02/2018 MIKEY SMALL PLANT AND EQUIPMENT WORKER Ot S99.911A UNSPECIFIED INJURY OF RIGHT ANKLE, INITI 04/02/2018 SMALLMIKEY WREN PLANT AND EQUIPMENT WORKER Ot X50.1XXA OVEREXERTION FROM PROLONGED STATIC OR AW 04/02/2018 MIKEY SMALL PLANT AND EQUIPMENT WORKER Ot S99.911A UNSPECIFIED INJURY OF RIGHT ANKLE, INITI 04/02/2018 MIKEY SMALL APRN Ot X50.1XXA OVEREXERTION FROM PROLONGED STATIC OR AW 04/02/2018 MIKEY SMLAL PLANT AND EQUIPMENT WORKER Ot S99.911A UNSPECIFIED INJURY OF RIGHT ANKLE, INITI 04/02/2018 MIKEY SMALL [employer] AND EQUIPMENT WORKER Ot X50.1XXA OVEREXERTION FROM PROLONGED STATIC OR AW 04/07/2018 MIKEY SMALL PLANT AND EQUIPMENT WORKER Ot S99.911A UNSPECIFIED INJURY OF RIGHT ANKLE, [...] OF RIGHT ANKLE, INITI 02/06/2019 MIKEY SMALL PLANT AND EQUIPMENT WORKER Ot X50.1XXA OVEREXERTION FROM PROLONGED STATIC OR AW 02/06/2019 Ot J40 BRONCH ITIS, NOT SPECIFIED ACUTE OR CH 02/06/2019 Ot R06.09 OT ER FORMS OF DYSPNEA 02/14/2019 EDWARD CORBIN [...] Ot J96.11 CHRONIC RESPIRATORY FAILURE WITH HYPOXIA 02/29/2020 ANGELO MIRANDA APRN Ot I10 ESSENTIAL (PRIMARY) HYPERTENSION 02/29/2020 ANGELO MIRANDA APRN Ot J45.909 UNSPECIFIED ASTHMA, UNCOMPLICATED 02/29/2020 ANGELO MIRANDA APRN Ot R05 COUGH 02/29/2020 ANGELO MIRANDA APRN Ot R51 HEADACHE 02/29/2020 ANGELO MIRANDA APRN Ot Z79.52 [facility] (CURRENT) USE OF SYSTEMIC STER 02/29/2020 ANEGLO MIRANDA APRN Ot Z80 .0 FAMILY HISTORY OF MALIGNANT NEOPLASM OF 02/29/2020 ANGELO MIRANDA APRN Ot Z82.49 FAMILY HX OF ISCHEM HEART DIS AND OTH DI 02/29/2020 ANGELO MIRANDA APRN Ot Z88 .0 ALLERGY STATUS TO PENICILLIN 02/29/2020 ANGELO MIRANDA APRN Ot Z88 .1 ALLERGY STATUS TO OTHER ANTIBIOTIC AGENT 02/29/2020 ANGELO MIRANDA APRN Ot Z88 .5 ALLERGY STATUS TO NARCOTIC AGENT STATUS 02/29/2020 ANGELO MIRANDA APRN Ot Z88 .8 ALLERGY STATUS TO OTH DRUG/MEDS/BIOL SUB 02/29/2020 ANGELO MIRANDA APRN Ot Z91.041 RADIOGRAPHIC DYE ALLERGY STATUS Procedures Code Description Performed By Per anjelica On CARDIOLOG BARBARAMIKAL 05/11/2014 90825 EKG, TRACING (IN-HOUSE) 05/11/2014 21205 VIT B 12 05/29/2014 25094 ROUT INE VENIPUNCTURE 05/29/2014 77221 CBC 05/29/2014 9539807 GF R CALC (RESULT ONLY) 05/29/2014 49509 CMP 05/29/2014 84314 LIPI D PANEL 05/29/2014 50528 MAGNESIUM 05/29/2014 20747 TSH 05/29/2014 96445 ROUT INE VENIPUNCTURE 06/13/2014 86288 THER APUTIC INJ SQ/IM 06/13/2014 J3420 B12 VITAMIN INJECTION 06/13/2014 44811 BMP 06/13/2014 1777221 GF R CALC (RESULT ONLY) 06/13/2014 48086 THER APUTIC INJ SQ/IM 08/09/2014 J3420 B12 VITAMIN INJECTION 08/09/2014 78889 CULT URE URINE 08/09/2014 62409 OXIMETRY 08/09/2014 62361 UA W / CULTURE IF INDICATED 08/09/2014 57814 INFL UENZA A & B (IN-HOUSE) 09/05/2014 84060 OXIMETRY 09/05/2014 37170 AMERITOX 10/02/2014 Results Test Result Range Complete [...] - 09/15/16 09:21 Albumin 3.2 g/dL 2.9-4.4 Gmmvc-7-Xjovltlf 0.2 g/dL 0.0-0.4 Epqmr-6-Ivwpdhdy 1.1 g/dL 0.4-1.0 Beta Globulin 1.0 g/dL [...] 0-19 Sedimentation Rate-Westergren - 09/15/16 09:21 Sedimentation Rate-Westergren 34 mm/hr 0-32 C-Reactive Protein, Quant - [...] - 09/22/16 14:20 Bacterial blood culture NG [facility] Bacterial blood culture - 09/22/16 14:20 Bacterial blood culture NG [facility] Whole blood basic metabolic panel - 02/03 [...] culture - 01/20/17 06:30 DATE/TIME MICROSCOPIC 01/21/2017 NRG MICROSCOPIC NO ACID-FAST BACILLI FOUND NRG AFB CULTURE NO MYCOBACTERIA RECOVERED AFTER 6 WEEK S NRG DATE FINAL AFB CULTURE 03-05-2017 NRG Urine Culture, Routine - 02/11/17 17:06 Urine Culture, Routine Note CMP - 05/25/17 09:36 Glucose, Serum 103 mg/dL 65-99 BUN [...] 7-25 CREATININE 1.20 mg/dL 0.50-1.10 eGFR NON-AFR. FINNISH 53 mL/min/1.73m2 > OR = 60 eGFR [...] 7-25 CREATININE 0.83 mg/dL 0.50-1.10 eGFR NON-AFR. FINNISH 83 mL/min/1.73m2 > OR = 60 eGFR [...] g/dL 3.2-4.5 CALCIUM CORRECTED 9.4 mg/dL 8.5-10.1 COVID-19 ([facility]) - 02/29/20 10:23 Encounters ACCT No. Visit Date/Time Discharge Status Pt. Type Provider Facility Loc./Unit Complaint [id number] 02/14/2017 17:06:00 Document Registration [id number] 03/13/2020 05:29:00 12:27:00 DIS Outpatient PRATIMA PATEL DO Via [facility] PREOP HEADACHE [id number] 03/12/2020 09:30:00 06/23/2 020 09:30:00 CAN Preadmit EDWARD CORBIN MD Via [facility] RAD STROKE LIKE SYMPTOMS [id number] 02/27/2020 12:52:00 15:08:00 DIS Outpatient ANGELO MIRANDA PLANT [employer] EQUIPMENT WORKER Via [facility] ER SOA/COUGH [id number] 06/29/2019 11:16:00 23:59:59 CLS Preadmit EDWARD CORBIN MD [facility] RAD CHRONIC RESPIRATORY LITO LURE [id number] 05/08/2019 08:15:00 23:59:59 CLS Preadmit EDWARD CORBIN MD [facility] PULM CHRONIC RESPIRATORY LITO LURE [id number] 02/28/2019 08:00:00 00:01:00 DIS Outpatient EDWARD CORBIN MD [facility] PULM CHRONIC RESPIRATORY LITO LURE [id number] 03/22/2019 13:00:00 23:59:59 CLS Preadmit ALINE ALCANTARA APRN Via [facility] SLEEP HYPERSOMNIA,MONICA PECTED SLEEP APNEA,HYPOXEMIA [id number] 03/09/2019 10:35:00 23:59:59 CLS Outpatient ALINE ALCANTARA APRN [facility] RAD ALLERGIC RHINITIS,RHEUMATOID ARTHRITIS [id number] 05/26/2018 11:00:00 23:59:59 CLS Preadmit ALINE ALCANTARA PL[employer] EQUIPMENT WORKER Via [facility] SLEEP G47.30 Suspecte d Sleep Apnea [id number] 03/19/2018 11:08:00 018 23:59:59 CLS Outpatient MIKEY SMALL PLANT AND EQUIPMENT WORKER Via [facility] RAD FELL AND TWISTED ANKLE , PAIN RT ANKLE [id number] 03/03/2018 10:30:00 018 23:59:59 CLS Preadmit EDWARD CORBIN MD [facility] RAD SCREENING [id number] 02/23/2018 10:00:00 018 23:59:59 CLS Preadmit ALINE ALCANTARA APRN [facility] SLEEP G47.30 SUSPECTE D SLEEP APNEA [id number] 02/21/2018 09:45:00 018 23:59:59 CLS Preadmit ALINE ALCANTARA APRN [facility] RT DYSPNEA [id number] 02/04/2018 11:40:00 018 23:59:59 CLS Preadmit EDWARD CORBIN MD [facility] REHAB HIGH RISK FOR FALLS;GAI T TRAINING [id number] 01/28/2018 12:50:00 018 23:59:59 CLS Outpatient EDWARD CORBIN MD [facility] LAB R00.0 [id number] 01/17/2018 09:38:00 018 23:59:59 CLS Preadmit EDWARD CORBIN MD [facility] RAD M81.0 OSTEOPOROSIS [id number] 01/17/2018 09:30:00 018 23:59:59 CLS Preadmit EDWARD CORBIN MD [facility] RAD SCREENING [id number] 07/17/2017 10:22:00 017 11:31:00 DIS Emergency ANGELO MIRANDA APRN [facility] ER R HIP POP, AUDIBLE [id number] 05/27/2017 07:52:00 017 23:59:59 CLS Outpatient EDWARD CORBIN MD [facility] RAD COUGH R05 [id number] 02/11/2017 10:15:00 017 23:59:59 CLS Preadmit ALINE ALCANTARA APRN [facility] RAD DYSPNEA ON EXERTION,R09.02,PNEUMONIA LOWER LOBES [id number] 01/20/2017 06:40:00 017 09:20:00 DIS Outpatient ANGELICA HARLEY DO [facility] SDC HYPOXIA/DYSPNEA/RHEUMAT OID ARTHRITIS [id number] 01/19/2017 14:22:00 017 23:59:59 CLS Outpatient CHERRI GARCIAS ANGELICA Dudley [facility] PREOP HYPOXIA/DYSPNEA/RHEUMAT OID ARTHRITIS [id number] 11/11/2016 11:03:00 017 23:59:59 CLS Outpatient ALINE ALCANTARA PL[employer] AND EQUIPMENT WORKER [facility] RAD PNEUMONIA OF ULICES TH LOWER LOBES [id number] 10/08/2016 11:02:00 017 23:59:59 CLS Outpatient ALINE ALCANTARA PL[employer] AND EQUIPMENT WORKER [facility] LAB PNEUMONIA,DYSPN EA [id number] 09/22/2016 13:22:00 14:24:00 DIS Inpatient TOBI GUO MD Via [facility] 4TH PNEUMONIA [id number] 09/13/2016 11:33:00 016 14:34:00 DIS Inpatient TOBI GUO MD Via [facility] 4TH ACUTE URI [id number] 02/04/2016 08:39:00 016 23:59:59 CLS Outpatient PATEL PRATIMA GARCIAS Via [facility] SDC BLOOD IN STOOL [id number] 01/03/2016 05:32:00 016 23:59:59 CLS Outpatient PRATIMA PATEL DO [facility] PREOP BLOOD IN STOOL [id number] 10/02/2015 09:41:00 016 23:59:59 CLS Outpatient EDWARD CORBIN MD [facility] RAD POSSIBLE KIDNEY STONE [id number] 08/19/2015 15:32:00 23:59:59 CLS Outpatient EDWARD CORBIN MD [facility] RAD LUMBOSACRAL RADICULOPAT HY [id number] 03/21/2015 10:34:00 23:59:59 CLS Outpatient EDWARD CORBIN MD [facility] LAB HYPERLIPIDEMIA,DIARRHEA ,CKD [id number] 06/27/2014 13:17:00 014 23:59:59 CLS Outpatient EDWARD CORBIN MD Via [facility] RA [id number] 02/15/2014 15:28:00 014 17:44:00 DIS Emergency MIRANDAANGELO APRN [facility] ER ABD PAIN [id number] 03/15/2020 08:00:00 P EN Preadmit PATELPRATIMA ROY DO D [facility] HEADACHE [id number] 02/06/2019 08:36:00 Document Registration [id number] 05/04/2018 09:21:00 Document Registration [id number] 04/02/2016 14:04:00 Document Registration [id number] 12/07/2014 10:51:00 Document Registration [id number] 06/23/2011 08:32:00 Document Registration [id number] 04/11/2011 12:02:00 Document Registration [id number] 02/23/2011 07:17:00 Document Registration [id number] 01/29/2011 09:21:00 Document Registration [id number] 02/29/2020 08:40:00 02/29/2020 23:59:5 9 CLS Outpatient EDWARD CORBIN MD [facility] [id number] 02/29/2020 08:40:00 Document Registration [id number] 01/17/2020 08:55:00 Document Registration [id number] 11/29/2019 10:00:00 Document Registration [id number] 06/02/2019 15:00:00 Document Registration [id number] 01/10/2019 09:40:00 Document Registration [id number] 10/27/2017 14:40:00 Document Registration [id number] 06/01/2017 08:20:00 Document Registration [id number] 05/25/2017 08:20:00 Document Registration [id number] 05/26/2017 09:09:00 Document Registration [id number] 06/02/2017 07:06:00 Document Registration [id number] 10/19/2014 12:54:00 10/19/2014 23:59: 59 CLS Outpatient JAMES GARCIA APRN [id number] 10/02/2014 11:24:00 10/02/2014 23:59: 59 CLS Outpatient EDWARD CORBIN MD [id number] 09/05/2014 13:05:00 09/05/2014 23:59: 59 CLS Outpatient JAMES GARCIA APRN [id number] 09/05/2014 13:05:00 09/05/2014 23:59: 59 CLS Outpatient JAMES GARCIA APRN [id number] 08/09/2014 08:09:00 08/09/2014 23:59: 59 CLS Outpatient EDWARD CORBIN MD [id number] 06/13/2014 08:30:00 06/13/2014 23:59: 59 CLS Outpatient EDWARD CORBIN MD [id number] 06/13/2014 08:30:00 06/13/2014 23:59: 59 CLS Outpatient EDWARD CORBIN MD [id number] 05/29/2014 07:46:00 05/29/2014 23:59: 59 CLS Outpatient EDWARD CORBIN MD [id number] 05/11/2014 13:49:00 05/11/2014 23:59: 59 CLS Outpatient EDWARD CORBIN MD [id number] 09/18/2016 05:05:00 Document Registration
[2020-03-15] MEDS ORDERED: CLINDAMYCIN 600 MG/50 ML IVPB 50 ML IV ONE (06:30)
[2020-03-15] MEDS: LACTATED RINGERS 1,000 ML IV PRN ×2 (06:43→08:48)
[2020-03-15] MEDS ORDERED: LACTATED RINGERS 1,000 ML IV PRN (07:11)
[2020-03-15] MEDS ORDERED: HYDROCORTISONE 100 MG/2 ML (Solu-CORTEF) VIAL ONE (07:14)
[2020-03-15] MEDS ORDERED: FAMOTIDINE 20MG/2ML IV (PEPCID) ONE (07:14)
[2020-03-15] MEDS ORDERED: ONDANSETRON 4 MG/2 ML (SDV) Z0FRAN ONE ×3 (07:14→09:39)
[2020-03-15] MEDS ORDERED: SCOPOLAMINE 1.5 MG (TRANSDERM-SCOP) PATCH ONE (07:14)
[2020-03-15] MEDS ORDERED: KETAMINE/NaCl 50 MG/5 ML SYRINGE (ED ONLY) ONE (07:15)
[2020-03-15] MEDS ORDERED: proPOfol 200 MG/20 ML (DIPRIVAN) VIAL IV ONE (07:15)
[2020-03-15] MEDS ORDERED: MIDAZOLAM 2 MG/2 ML (VERSED) VIAL ONE (07:15)
[2020-03-15] MEDS ORDERED: SCOPOLAMINE 1.5 MG (TRANSDERM-SCOP) PATCH TOP ONE (07:15)
[2020-03-15] MEDS ORDERED: LIDOCAINE PF 2% 5 ML (XYLOCAINE) VIAL ONE (07:15)
[2020-03-15] MEDS ORDERED: ONDANSETRON 4 MG/2 ML (SDV) Z0FRAN IV ONE (07:15)
[2020-03-15] MEDS ORDERED: PROPOFOL INJECTION 50 ML IV ONE ×2 (07:15→08:50)
[2020-03-15] MEDS ORDERED: HYDROCORTISONE 100 MG/2 ML (Solu-CORTEF) VIAL IV ONE (07:15)
[2020-03-15] MEDS ORDERED: FAMOTIDINE 20MG/2ML IV (PEPCID) IV ONE (07:15)
[2020-03-15] MEDS ORDERED: DEXAMETHASONE 10 MG/ML (DECADRON) 1 ML VIAL ONE (07:15)
[2020-03-15] MEDS ORDERED: BUP/EPI 0.5% 1:200,000 (SENSORCAINE) 30 ML VIAL ONE (07:22)
--- NOTE | 2020-03-15 08:13 | Progress Note-Pre Operative ---
Pre-Operative Progress Note H&P Reviewed The H&P was reviewed, patient examined and no changes noted. Date Seen by Provider: Mar 15, 2020 Time Seen by Provider: 08:12 Date H&P Reviewed: Mar 15, 2020 Time H&P Reviewed: 08:12 Pre-Operative Diagnosis: temporal arteritis, headache PRATIMA PATEL DO Mar 15, 2020 08:13
[2020-03-15] MEDS ORDERED: ESMOLOL 100 MG/10 ML (BREVIBLOC) VIAL ONE (08:50)
[2020-03-15] MEDS ORDERED: MUPIROCIN 2% OINT 22 GM (BACTROBAN) TUBE ONE (09:21)
[2020-03-15] MEDS ORDERED: fentaNYL INJECTION 100 MCG/2 ML AMP ONE (09:38)
[2020-03-15] MEDS ORDERED: fentaNYL INJECTION 100 MCG/2 ML AMP IVP ONE (09:45)
[2020-03-15] MEDS ORDERED: ONDANSETRON 4 MG/2 ML (SDV) Z0FRAN IVP PRN (09:45)
[2020-03-15] MEDS: fentaNYL INJECTION 100 MCG/2 ML AMP IVP PRN ×3 (09:48→10:00)
--- NOTE | 2020-03-15 10:04 | Anesthesia-General Post-Op ---
General Patient Condition Mental Status/LOC: Same as Preop Cardiovascular: Satisfactory Nausea/Vomiting: Absent Respiratory: Satisfactory Pain: Controlled Complications: Absent Post Op Complications Complications None Follow Up Care/Instructions Patient Instructions None needed. Anesthesia/Patient Condition Patient Condition Patient is doing well, awake in PACU, states N/V is better than previous anesthetics, no complaints, stable vital signs, no apparent adverse anesthesia problems. NASREEN CANDELARIO DO Mar 15, 2020 10:04
[2020-03-15] MEDS ORDERED: RT-ALBUTEROL SULF 2.5 MG/3 ML PRE-MIX VIAL INH ONE (11:00)
--- NOTE | 2020-03-15 11:04 | Discharge Inst-Simple/Standard ---
Discharge Inst-Standard Patient Instructions/Follow Up Plan of Care/Instructions/FU: 1 week Geoffrey Activity as Tolerated: Yes Discharge Diet: Regular Diet Other Inst to Patient Follow up Appt: Make appointment for 2 week. Instructions: No strenuous activity. May shower in 24 hours, no tub bath or soaking. Use incentive spirometer at home as directed. No Smoking Skin/Wound Care: Keep incision clean and dry. Symptoms to Report: Appetite Changes, Extremity Discoloration, Numbness/Tingling, Swelling Increased, Bleeding Excessive, Eyesight Changes, Pain Increased, Urine Color Change, Constipation(Persistent), Fever over 101 degree F, Pain/Pressure in chest, Urinating Difficulty, Cough Up/Vomit Blood, Heart Beat Irreg/Pounding, Pain/Pressure in jaw, Vaginal Bleeding Increase, Cramps in feet or legs, Lightheadedness, Pain/Pressure in shoulder, Diarrhea(Persistent), Memory Changes Suddenly, Questions/Concerns, Weight gain consecutive days, Dizziness/Fainting, Nausea/Vomiting, Shortness of Breath, Weight gain over 2 pounds If questions or concerns contact your physician Or seek help at emergency department. PRATIMA PATEL DO Mar 15, 2020 11:04
--- NOTE | 2020-03-15 21:31 | OPERATIVE REPORT ---
DATE OF SERVICE: 03/15/2020 PREOPERATIVE DIAGNOSES: Temporal arteritis, headache. POSTOPERATIVE DIAGNOSES: Temporal arteritis, headache. PROCEDURE: Ultrasound and Doppler guidance for left temporal artery biopsy. SURGEON: Pratima Hale DO ANESTHESIA: General. ESTIMATED BLOOD LOSS: Minimal. COMPLICATIONS: None. INDICATIONS: The patient is a 49-year-old female with a headache and concern for temporal arteritis. She understands risks and benefits of procedure and wished to proceed with procedure. Consent was signed in the chart. DESCRIPTION OF PROCEDURE: The patient was taken to the operating suite. She was prepped and draped in sterile fashion. Timeout was performed. Ultrasound was used to locate the temporal artery. Doppler was used as well. This was marked. Local anesthetic was infiltrated around the area and 15 blade scalpel was used to make a skin incision over the left temporal artery. Dissection was taken down through subcutaneous tissues. A Doppler then reconfirmed the left temporal artery. This was visualized and dissected around. Hemostat was placed on the proximal and distal portion to get length and the portion was transected. 3-0 silk sutures were used to tie off the ends. Specimen was sent to pathology. The wound was irrigated with copious amounts of irrigation and suction. Hemostasis was achieved. The skin was then closed using 5-0 Prolene in a simple interrupted fashion. The patient tolerated procedure well without any complications. She was taken to recovery room in stable condition. Job ID: [id number] DocumentID: [id number] Dictated Date: 03/15/2020 16:09:43 Medical Records Assistant Date: 03/15/2020 21:29:43 Dictated By: PRATIMA HALE DO
== END 2020-03-15 12:00 | disposition home or self-care (01) ==
LOC: SDC 06:04
PROVIDERS: ATTEND Surgery
DX: M31.6 Other giant cell arteritis (principal); I10 Essential (primary) hypertension; M06.9 Rheumatoid arthritis, unspecified; G43.909 Migraine, unspecified, not intractable, without status migrainosus; J45.909 Unspecified asthma, uncomplicated; D51.0 Vitamin B12 deficiency anemia due to intrinsic factor deficiency; Z88.1 Allergy status to other antibiotic agents; Z88.6 Allergy status to analgesic agent; Z88.0 Allergy status to penicillin; Z91.041 Radiographic dye allergy status; Z79.52 Long term (current) use of systemic steroids; Z88.3 Allergy status to other anti-infective agents; Z80.0 Family history of malignant neoplasm of digestive organs; Z90.710 Acquired absence of both cervix and uterus; Z79.82 Long term (current) use of aspirin
CPT/HCPCS: 87081; 88305; 94640; 94664; 94760

== ENCOUNTER 2020-10-01 20:47 | Emergency (ER) | payer MEDICARE ==
[~2020-10-01] VITALS: Ht 165 cm; Wt 84.4 kg
[2020-10-01] MEDS ORDERED: NS IV 1000 ML 1,000 ML ONE (21:02)
[2020-10-01] MEDS ORDERED: PROMETHAZINE INJ 25 MG/ML (PHENERGAN) AMP ONE (21:02)
--- NOTE | 2020-10-01 21:22 | ED GI ---
General Chief Complaint: Abdominal/GI Problems Stated Complaint: N/V, COVID EXPOSURE Nursing Triage Note: n/v/d x5-7 days, currently being treated for uti. Sepsis Screen: No Definite Risk Source of Information: Patient Exam Limitations: No Limitations History of Present Illness Date Seen by Provider: Oct 01, 2020 Time Seen by Provider: 21:18 Initial Comments To ER by private vehicle with reports of nausea vomiting diarrhea for about 1.5 weeks. She is currently on Keflex for urinary tract infection. No fevers or chills. Has chronic shortness of breath secondary to RA and it is no different than usual. Her mother with whom she has not had direct contact has Covid. The patient has not had direct contact with her mother but the patient's daughter has been going to the patient's mother's house. Timing/Duration: 1 Week Severity/Quality: Mild Location: Generalized Abdomen Radiation: No Radiation Activities at Onset: None Associated Symptoms: Nausea/Vomiting Allergies and Home Medications Allergies Coded Allergies: iodine (Unverified Allergy, Severe, 01/29/11) Penicillins (Unverified Allergy, Unknown, 06/27/14) abatacept (Unverified Allergy, Unknown, 06/27/14) ciprofloxacin (Unverified Allergy, Unknown, 06/27/14) codeine (Unverified Allergy, Unknown, 06/27/14) hydrocodone (Unverified Allergy, Unknown, 06/27/14) Uncoded Allergies: IVP DYE (Allergy, Unknown, 06/27/14) Home Medications Acetaminophen 650 Mg Tablet.er, 1,300 MG PO Q8H PRN for PAIN-MILD (1-4), (Reported) take 2 (650mg) tabs Aspirin 81 Mg Tablet.dr, 81 MG PO DAILY, (Reported) Atorvastatin Calcium 40 Mg Tablet, 40 MG PO DAILY, (Reported) Cyclobenzaprine HCl 10 Mg Tablet, 10 MG PO TID PRN for MUSCLE SPASMS, (Reported) Duloxetine HCl 60 Mg Capsule.dr, 60 MG PO DAILY, (Reported) Fluticasone/Umeclidin/Vilanter 1 Each Blst.w.dev, 1 EACH IH DAILY, (Reported) Fluticasone/Vilanterol 1 Each Blst.w.dev, 1 EACH IH DAILY, (Reported) Gabapentin 800 Mg Tablet, 800 MG PO TID, (Reported) Leflunomide 20 Mg Tablet, 20 MG PO DAILY, (Reported) Metoprolol Succinate 50 Mg Tab.er.24h, 50 MG PO DAILY, (Reported) Omeprazole 40 Mg Capsule.dr, 40 MG PO DAILY, (Reported) Omeprazole 40 Mg Capsule.dr, 40 MG PO DAILY, (Reported) Ondansetron HCl 8 Mg Tablet, 8 MG PO Q8H PRN for NAUSEA/VOMITING, (Reported) Oxycodone HCl 15 Mg Tab.er.12h, 15 MG PO Q12H, (Reported) Prednisone 20 Mg Tab, 60 MG PO DAILY, (Reported) Take 3 (20MG) tabs FOR (60mg)daily Umeclidinium Tye 62.5 Mcg Blst.w.dev, 62.5 MCG IH DAILY, (Reported) Patient Home Medication List Home Medication List Reviewed: Yes Review of Systems Review of Systems Constitutional: see HPI EENTM: No Symptoms Reported Respiratory: No Symptoms Reported Cardiovascular: See HPI Gastrointestinal: See HPI, Diarrhea, Nausea, Vomiting Genitourinary: No Symptoms Reported Musculoskeletal: no symptoms reported Skin: no symptoms reported Psychiatric/Neurological: No Symptoms Reported Endocrine: No Symptoms Reported Hematologic/Lymphatic: No Symptoms Reported Past [id number] Hx Patient Social History Alcohol Use: Denies Use Smoking Status: Never a Smoker Recent Infectious Disease Expo: No Recent Hopitalizations: No Immunizations Up To Date Tetanus Booster (TDap): Unknown PED Vaccines UTD: Yes Date of Pneumonia Vaccine: Dec 05, 2012 Seasonal Allergies Seasonal Allergies: No Past Medical History Surgeries: Yes Appendectomy, Section, 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, Oophorectomy Respiratory: Yes Asthma Currently Using CPAP: No Currently Using BIPAP: No Cardiac: Yes Heart Murmur, Hypertension Neurological: Yes Headaches /Migraines : No Reproductive Disorders: No Female Reproductive Disorders: Denies PVC 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: 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 Sexually Transmitted Disease: No HIV/AIDS: No Genitourinary: No Gastrointestinal: Yes Polyps, Ulcer Musculoskeletal: Yes Osteoporosis, Rheumatoid Arthritis Endocrine: No HEENT: No Loss of Vision: Denies Hearing Impairment: Denies Cancer: No Psychosocial: Yes Depression Integumentary: No Blood Disorders: No Adverse Reaction/Blood Tranf: No Family Medical History Alzheimer's disease 19 FATHER Arthritis 19 FATHER 19 MOTHER Asthma G8 BROTHER Cardiovascular disease 19 FATHER 19 MOTHER Cataracts 19 FATHER 19 MOTHER Deafness or hearing loss 19 FATHER 19 MOTHER Dementia 19 FATHER Diabetes mellitus 19 FATHER 19 MOTHER MATERNAL GRANDMA PATERNAL GRANDMOTHER Fibrocystic disease of breast 19 MOTHER Gastroenteritis 19 MOTHER Hypercholesterolemia 19 MOTHER Hypertension G8 BROTHER Myocardial infarction 19 FATHER Neoplasm 19 MOTHER (GALL BLADDER CANCER) Osteoporosis 19 MOTHER Thyroid disease G8 BROTHER G8 SISTER Physical Exam Vital Signs Vital Signs - First Documented 10/01/20 21:00 Temp 36.7 Pulse 98 Resp 18 B/P (MAP) 155/113 (127) Pulse Ox 97 O2 Delivery Room Air Capillary Refill : Less Than 3 Seconds Height/Weight/BMI Height: 5'4.00" Weight: 152lbs. 0.6oz. [id number]; 31.00 BMI Method:Stated General Appearance: WD/WN, no apparent distress, other (Alert and oriented, oxygen saturation 97% on room air after walking to room 9 from the parking lot) HEENT: PERRL/EOMI, normal ENT inspection Respiratory: normal breath sounds, no respiratory distress, no accessory muscle use Cardiovascular: regular rate, rhythm, no murmur Gastrointestinal: normal bowel sounds, non tender, no organomegaly Extremities: normal range of motion, non-tender Neurologic/Psychiatric: alert, normal mood/affect, oriented x 3 Skin: normal color, warm/dry Progress/Results/Core Measures Results/Orders Lab Results Laboratory Tests Test 10/01/20 21:02 Range/Units White Blood Count 4.9 4.3-11.0 10^3/uL Red Blood Count 5.69 H 3.80-5.11 10^6/uL Hemoglobin 16.3 H 11.5-16.0 g/dL Hematocrit 51 35-52 % Mean Corpuscular Volume 89 80-99 fL Mean Corpuscular Hemoglobin 29 25-34 pg Mean Corpuscular Hemoglobin Concent 32 32-36 g/dL Red Cell Distribution Width 13.3 10.0-14.5 % Platelet Count 212 130-400 10^3/uL Mean Platelet Volume 11.8 9.0-12.2 fL Immature Granulocyte % (Auto) 0 % Neutrophils (%) (Auto) 53 42-75 % Lymphocytes (%) (Auto) 30 12-44 % Monocytes (%) (Auto) 13 H 0-12 % Eosinophils (%) (Auto) 3 0-10 % Basophils (%) (Auto) 1 0-10 % Neutrophils # (Auto) 2.6 1.8-7.8 10^3/uL Lymphocytes # (Auto) 1.5 1.0-4.0 10^3/uL Monocytes # (Auto) 0.6 0.0-1.0 10^3/uL Eosinophils # (Auto) 0.1 0.0-0.3 10^3/uL Basophils # (Auto) 0.0 0.0-0.1 10^3/uL Immature Granulocyte # (Auto) 0.0 0.0-0.1 10^3/uL Urine Color YELLOW Urine Clarity CLEAR Urine pH 8.0 5-9 Urine Specific [place] 1.015 L 1.016-1.022 Urine Protein TRACE H NEGATIVE Urine Glucose (UA) NEGATIVE NEGATIVE Urine Ketones 1+ H NEGATIVE Urine Nitrite NEGATIVE NEGATIVE Urine Bilirubin NEGATIVE NEGATIVE Urine Urobilinogen 0.2 < = 1.0 MG/DL Urine Leukocyte Esterase NEGATIVE NEGATIVE Urine RBC (Auto) NEGATIVE NEGATIVE Urine RBC NONE /HPF Urine WBC 5-10 H /HPF Urine Squamous Epithelial Cells 5-10 /HPF Urine Crystals NONE /LPF Urine Bacteria FEW H /HPF Urine Casts NONE /LPF Urine Mucus NEGATIVE /LPF Urine Culture Indicated YES Sodium Level 142 135-145 MMOL/L Potassium Level 3.6 3.6-5.0 MMOL/L Chloride Level 105 98-107 MMOL/L Carbon Dioxide Level 20 L 21-32 MMOL/L Anion Gap 17 H 5-14 MMOL/L Blood Urea Nitrogen 15 7-18 MG/DL Creatinine 1.25 0.60-1.30 MG/DL Estimat Glomerular Filtration Rate 45 BUN/Creatinine Ratio 12 Glucose Level 107 H 70-105 MG/DL Calcium Level 10.3 H 8.5-10.1 MG/DL Corrected Calcium 8.5-10.1 MG/DL Total Bilirubin 0.6 0.1-1.0 MG/DL Aspartate Amino Transf (AST/SGOT) 33 5-34 U/L Alanine Aminotransferase (ALT/SGPT) 48 0-55 U/L Alkaline Phosphatase 67 40-136 U/L Total Protein 7.8 6.4-8.2 GM/DL Albumin 5.0 H 3.2-4.5 GM/DL My Orders Orders - ANGELO MIRANDA [employer] Cbc With Automated Diff (10/01/20 20:54) Comprehensive Metabolic Panel (10/01/20 20:54) Ed Iv/Invasive Line Start (10/01/20 20:54) Covid 19 Inhouse Test (10/01/20 20:54) Coronavirus Sars-Cov-2 So 2018 (10/01/20 20:54) Ua Culture If Indicated (10/01/20 21:17) Ns Iv 1000 Ml (Sodium Chloride 0.9%) (10/01/20 21:30) Promethazine Injection (Phenergan Injec (10/01/20 21:30) Urine Culture (10/01/20 21:02) Ceftriaxone For Iv Use (Rocephin For I (10/01/20 22:00) Ns Iv 1000 Ml (Sodium Chloride 0.9%) (10/01/20 22:00) Medications Given in ED Current Medications Medications Dose Ordered Sig/Jeremie Route Start Time Stop Time Status Last Admin Dose Admin Promethazine HCl 25 mg ONCE ONCE IVP 10/01/20 21:30 10/01/20 21:31 DC 10/01/20 21:16 25 MG Vital Signs/I&O 10/01/20 21:00 Temp 36.7 Pulse 98 Resp 18 B/P (MAP) 155/113 (127) Pulse Ox 97 O2 Delivery Room Air Blood Pressure Mean: 127 Departure Impression Primary Impression: Urinary tract infection Qualified Codes: N30.00 - Acute cystitis without hematuria Additional Impression: Nausea and vomiting Qualified Codes: R11.2 - Nausea with vomiting, unspecified Disposition: HOME, SELF-CARE Condition: Stable Departure-Patient Inst. Decision time for Depature: 21:49 Referrals: EDWARD CORBIN MD (PCP/Family) Primary Care Physician Patient Instructions: Nausea and Vomiting, Adult ANGELO MIRANDA APRN Oct 01, 2020 21:22
[2020-10-01 21:30] LABS: BASOPHILS % (AUTO) 1 % (0-10); EOSINOPHILS # (AUTO) 0.1 10^3/uL (0.0-0.3); EOSINOPHILS % (AUTO) 3 % (0-10); HEMATOCRIT 51 % (35-52); HEMOGLOBIN 16.3 g/dL (11.5-16.0); LYMPHOCYTES # (AUTO) 1.5 10^3/uL (1.0-4.0); LYMPHOCYTES % (AUTO) 30 % (12-44); MEAN CORPUSCULAR HEMOGLOBIN 29 pg (25-34); MEAN CORPUSCULAR HGB CONC 32 g/dL (32-36); MEAN CORPUSCULAR VOLUME 89 fL (80-99); MEAN PLATELET VOLUME 11.8 fL (9.0-12.2); MONOCYTES # (AUTO) 0.6 10^3/uL (0.0-1.0); MONOCYTES % (AUTO) 13 % (0-12); NEUTROPHILS # (AUTO) 2.6 10^3/uL (1.8-7.8); NEUTROPHILS % (AUTO) 53 % (42-75); PLATELET COUNT 212 10^3/uL (130-400); WHITE BLOOD COUNT 4.9 10^3/uL (4.3-11.0)
[2020-10-01] MEDS ORDERED: PROMETHAZINE INJ 25 MG/ML (PHENERGAN) AMP IVP ONE (21:30)
[2020-10-01] MEDS ORDERED: NS IV 1000 ML 1,000 ML IV SCH ×2 (21:30→22:00)
[2020-10-01 21:31] LABS: BILIRUBIN,URINE NEGATIVE (NEGATIVE); CLARITY,URINE CLEAR; COLOR,URINE YELLOW; GLUCOSE, URINE (UA) NEGATIVE (NEGATIVE); KETONES,URINE 1+ (NEGATIVE); LEUKOCYTE ESTERASE ,URINE NEGATIVE (NEGATIVE); NITRITE,URINE NEGATIVE (NEGATIVE); PROTEIN,URINE TRACE (NEGATIVE)
[2020-10-01 21:38] LABS: CHLORIDE 105 MMOL/L (98-107); POTASSIUM 3.6 MMOL/L (3.6-5.0); SODIUM 142 MMOL/L (135-145)
[2020-10-01 21:39] LABS: CALCIUM 10.3 MG/DL (8.5-10.1)
[2020-10-01 21:40] LABS: GLUCOSE 107 MG/DL (70-105); TOTAL PROTEIN 7.8 GM/DL (6.4-8.2)
[2020-10-01 21:41] LABS: BACTERIA,URINE FEW /HPF
[2020-10-01 21:42] LABS: BILIRUBIN,TOTAL 0.6 MG/DL (0.1-1.0); CARBON DIOXIDE 20 MMOL/L (21-32)
[2020-10-01 21:44] LABS: ALKALINE PHOSPHATASE 67 U/L (40-136); CREATININE SERUM 1.25 MG/DL (0.60-1.30); GFR ESTIMATED 45
[2020-10-01 21:45] LABS: BUN/CREATININE RATIO 12
[2020-10-01 21:47] LABS: ALANINE AMINOTRANSFERASE 48 U/L (0-55)
[2020-10-01] MEDS ORDERED: PROM25TA14 PO (21:55)
[2020-10-01] MEDS ORDERED: cefTRIAXone FOR IV USE 1,000 MG in WATER (STERILE) FOR INJECTION 10 ML IV ONE (22:00)
[2020-10-01 22:52] VITALS: BP 144/88
== END 2020-10-01 22:52 | disposition home or self-care (01) ==
LOC: EDUNIT# 20:47 → ER 20:51
DX: N39.0 Urinary tract infection, site not specified (principal); R19.7 Diarrhea, unspecified; I10 Essential (primary) hypertension; F32.9 Major depressive disorder, single episode, unspecified; J45.909 Unspecified asthma, uncomplicated; G43.909 Migraine, unspecified, not intractable, without status migrainosus; Z80.0 Family history of malignant neoplasm of digestive organs; Z79.82 Long term (current) use of aspirin; Z79.51 Long term (current) use of inhaled steroids; Z79.52 Long term (current) use of systemic steroids; Z20.822 Contact with and (suspected) exposure to COVID-19
CPT/HCPCS: 80053; 81000; 85025; 87088; 99284; U0002; 36415; 87635

== ENCOUNTER → 2022-11-03 | Outpatient (CLI) | payer MEDICARE ==
[~2022-11-03] MED LIST changes: +CYCL10TA25 PO; -OMEP40CA27 PO; +OMEP40CA6 PO; +PROM25TA14 PO
== END ==
LOC: CARD 09:10
PROVIDERS: ATTEND Family Medicine
DX: I35.1 Nonrheumatic aortic (valve) insufficiency (principal); R60.9 Edema, unspecified
CPT/HCPCS: 93306